=== PATIENT | female | born 1965 | race Caucasian/White ===

== ENCOUNTER 2023-02-10 08:22 | Outpatient (OUT) | payer OTHER, SELFPAY ==
--- NOTE | 2023-02-10 | PCN_ITS ---
Requesting Physician:? Procedure Date:? 02/10/2023 This was a Lexiscan stress test with myocardial perfusion images, performed at the [facility] on 02/10/2023. Informed consent was obtained.? The patient was attached to electrographic monitoring and an intravenous line was secured.? Resting vital signs and ECG were obtained.? Lexiscan 0.4 mg were infused slowly, followed by administration of Cardiolite.? The patient then went on to obtain myocardial perfusion images. Resting heart rate was 77 BPM and maximum heart rate was 113 BPM.? Resting blood pressure was 142/66 with maximum blood pressure being 158/88.? Resting ECG showed normal sinus rhythm with no ischemic changes.? ECG following Lexiscan showed evidence of normal sinus rhythm with occasional PVCs, but no ischemic ST changes.? SUMMARY OF FINDINGS:? 1.? No evidence of ischemic ECG changes following infusion of Lexiscan.? 2.? Resting hypertension. 3.? Myocardial perfusion images will be reported separately. HORTENCIAD
--- NOTE | 2023-02-10 08:30 | NM_ITS ---
Patient: KAYA SCHILLING Exam Date: 02/10/2023 : 1965 Gender:F Ordering : DR Silviano Box M.D. Admission #: [id number] Family : DR LOZALESLIE STEWARD Order #: [id number] CLICK HERE TO VIEW EXAM RADIOLOGY REPORT PROCEDURE: NM JOVAN PERF SPECT REST STR COMPARISON: None. INDICATIONS: Chest pain TECHNIQUE: Exam Description: Rest/Stress one day protocol gated SPECT Rest Imagin.1 mCi Tc-99m Cardiolite IV on 02/10/2023 Stress Imaging 30.0 mCi Tc-99m Cardiolite IV on 02/10/2023 Exercise Protocol: 0.4 mg Lexiscan given IV Heart Rate (bpm): Rest: 77 Max: 113 PMHR: 70 Blood Pressure: Rest: 142/88 Max: 158/88 Symptoms: Rest and peak stress ECG findings were pending and the exercise portion of the study was pending per attending physician Dr. SEGOVIA . For more details please see separate cardiac stress test report. FINDINGS: QUALITY OF STUDY: Excellent. PERFUSION DEFECT: None. LOCATION: N/A SIZE: N/A. SEVERITY: N/A. TYPE: N/A. WALL MOTION: Normal. LV SIZE: Normal. 69 mL. TID / TCD: None; 0.8 LVEF: Normal. Calculated EF 68%. SUMMARY: Myocardial perfusion imaging study is NORMAL. CONCLUSION: 1. Normal nuclear medicine myocardial perfusion scan. Dictated by: Roman Recio M.D. on 02/10/2023 at 13:02 Approved by: Roman Recio M.D. on 02/10/2023 at 13:09
--- NOTE | 2023-02-10 08:39 | CA_ITS ---
Patient: KAYA SCHILLING Exam Date: 02/10/2023 : 1965 Gender:F Ordering : DR DHRUV BOX M.D. Admission #: [id number] Family : KATHY STEWARD Order #: [id number] CLICK HERE TO VIEW EXAM ECHOCARDIOGRAM REPORT PROCEDURE: CA ECHO DOPPLER COMPLETE INDICATIONS: Chest pain, shortness of breath COMPARISON: None. DESCRIPTION: COMPLETE ECHOCARDIOGRAM Real-time transthoracic echocardiography with 2D, M-mode, spectral and color flow Doppler performed. QUALITY: Technical quality was good. LEFT VENTRICLE: Normal chamber size. Mild concentric left ventricular hypertrophy. LV EF: Global left ventricular systolic function is normal. Calculated left ventricular ejection fraction is 63% DIASTOLIC: Unable to assess diastolic function. ATRIAL SEPTUM: Inadequately seen. LEFT ATRIUM: Mild dilatation. RIGHT ATRIUM: Normal chamber size. RIGHT VENTRICLE: Normal chamber size. Normal right ventricular systolic function. TRICUSPID VALVE: Normal mobility and thickness. No stenosis with no regurgitation. Unable to assess right-sided pressures due to lack of measurable tricuspid regurgitation. MITRAL VALVE: Normal mobility and thickness. No evidence of mitral valve stenosis. There is no mitral annular calcification. Trivial mitral regurgitation. AORTIC VALVE: Normal trileaflet appearance. Mildly calcified aortic valve. Normal leaflet mobility. No evidence of aortic valve stenosis. No aortic regurgitation. AORTIC ROOT: Normal diameter and appearance. PULMONIC VALVE: Normal thickness and mobility. No stenosis. No regurgitation. PERICARDIUM: No evidence of pericardial effusion. IVC: Collapses with inspirations. Normal size. CONCLUSION: Global left ventricular systolic function is normal; visually estimated ejection fraction is 60 to 65%. Mildly increased left ventricular wall thickness. Unable to assess diastolic function. The left atrium is mildly dilated. The right ventricle is normal in size and systolic function. No significant valvular abnormalities. Adult Echocardiography Procedure Report Left Ventricle LVEDD (3.7 - 5.6 cm): 4.06 cm LVESD (2.2 - 4.0 cm): 2.88 cm LVIVS thickness (0.6 - 1.2 cm): 1.03 cm LVPW thickness (0.5 - 1.0 cm): 1.06 cm e': 0.10 m/s E - e': 7.73 LVOT Max Gradient: 2.58 mm[Hg], 2.49 mm[Hg] LVOT Area (cm2): 0.80 m/s Peak Velocity (LVOT): 0.80 m/s, 0.79 m/s Mean Velocity (LVOT): 0.54 m/s LVOT Diameter 1.95 cm Left Ventricular Ejection Fraction: 62.82 % Left Atrium LA Volume Index (2D A2C): 40.09 ml/m2 Left Atrium Systolic Dimension: 3.85 cm Mitral Valve MV E to A Ratio: 0.98 Mitral Valve A-Wave Peak Velocity: 0.77 m/s Mitral Valve E-Wave Peak Velocity: 0.75 m/s Right Ventricle RV Internal Diastolic Dimension: 2.56 cm Aorta AO Root Diam: 2.68 cm Ascending Ao Diam: 2.93 cm Aortic Valve AoV Area (Peak Romulo): 1.69 cm2, 1.70 cm2 AoV Area (VTI): 1.62 cm2, 1.63 cm2 Peak Velocity(Antegrade Flow): 1.40 m/s Peak Gradient(Antegrade Flow): 7.89 mm[Hg] Mean Velocity(Antegrade Flow): 1.01 m/s Mean Gradient(Antegrade Flow): 4.51 mm[Hg] Velocity Time Integral: 31.20 cm Tricuspid Valve Pulmonic Valve Mean Gradient: 3.18 mm[Hg], 3.74 mm[Hg], 2.88 mm[Hg], 3.24 mm[Hg] Mean Velocity: 0.83 m/s, 0.91 m/s, 0.80 m/s, 0.85 m/s Peak Velocity: 1.22 m/s Peak Gradient: 6.20 mm[Hg], 7.03 mm[Hg], 5.09 mm[Hg], 5.42 mm[Hg] Right Atrium Right Atrium Systolic Pressure: 28.49 ml, 28.49 ml Dictated by: Dhruv Box M.D. on 02/12/2023 at 08:47 Approved by: Dhruv Box M.D. on 02/12/2023 at 08:51
[2023-02-10] MEDS: REGADENOSON 0.4 MG/5 ML SYRINGE IV (10:56)
== END 2023-02-10 08:23 ==
LOC: NM 08:25
PROVIDERS: PCP Family Medicine; Visit Provider Internal Medicine Interventional Cardiology
DX: R07.9 Chest pain, unspecified (principal); R06.02 Shortness of breath
CPT/HCPCS: 78452; 93017; 93306; A9500; J2785

== ENCOUNTER 2023-03-05 13:23 | Emergency (ER) | payer OTHER, SELFPAY ==
[2023-03-05 14:00] VITALS: BP 120/68; PULSE 103; RESP 18; TEMP 37.2; O2SAT 100; BMI 24.1
--- NOTE | 2023-03-05 14:13 | XR_ITS ---
The [address] [address] Patient Name: KAYA SCHILLING MRN: [id number] date: 1965 Sex: F Assigned Patient Location: ER Current Patient Location: ER Accession/Order Number: [id number] Exam Date: 03/05/2023 15:15 Report Date: 03/05/2023 16:25 At the request of: TENA NGUYEN Procedure: XR chest 2V TWO-VIEW CHEST RADIOGRAPH, 03/05/2023 3:15 PM EDT: COMPARISON: Chest, 09/23/2022. CLINICAL HISTORY: Cough/shortness of breath and dizziness with nausea and weakness for 4 days. FINDINGS: No acute cardiopulmonary disease. No pulmonary edema, pneumothorax, or pleural effusion. Normal heart size. No acute osseous abnormality. IMPRESSION: No acute abnormality identified. Electronically authenticated by: Sergio SALEH Date: 03/05/2023 16:25
[2023-03-05 15:04] LABS: Basophils Percent Auto 0.5 % (0.2-2.0); Eosinophils Absolute Auto 0.2 10^3/uL (0.0-0.7); Eosinophils Percent Auto 2.7 % (0.9-7.0); Hematocrit 33.6 % (36.0-48.0); Hemoglobin 9.9 g/dL (12.0-16.0); Immature Granulocytes Abs Auto 0.01 10^3/uL (0.00-0.03); Immature Granulocytes Pct Auto 0.2 % (0.0-0.5); Lymphocytes Absolute Auto 1.3 10^3/uL (1.2-3.8); Lymphocytes Percent Auto 21.2 % (20.5-60.0); Mean Corpuscular HGB Conc 29.5 g/dL (29.9-35.2); Mean Corpuscular Hemoglobin 26.4 pg (26.7-34.0); Mean Corpuscular Volume 89.6 fL (81.0-99.0); Mean Platelet Volume 8.4 fL (9.5-13.5); Monocytes Absolute Auto 0.3 10^3/uL (0.3-0.8); Monocytes Percent Auto 5.3 % (1.7-12.0); Neutrophils Absolute Auto 4.1 10^3/uL (1.4-6.5); Neutrophils Percent Auto 70.1 % (43.0-75.0); Platelet Count 400 10^3/uL (150-450); Red Blood Count 3.75 10^6/uL (4.20-5.40); Red Cell Distribution Width 16.3 % (11.0-15.0); White Blood Count 5.9 10^3/uL (4.0-11.0)
[2023-03-05 15:16] LABS: Anion Gap 12.6; BUN Creatinine Ratio 16.5; Calcium 11.1 mg/dL (8.5-10.1); Carbon Dioxide 23.7 mmol/L (21.0-32.0); Chloride 103 mmol/L (98-107); Estimated GFR (African America >60 (>=60); Estimated GFR (Non-African Ame 51 (>=60); Glucose 135 mg/dL (74-106); Potassium 4.3 mmol/L (3.5-5.1); Sodium 135 mmol/L (136-145)
--- NOTE | 2023-03-05 15:50 | ED.NAVMDI1 ---
HPI - Nausea/Vomiting/Diarrhea General Chief complaint: Nausea/Vomiting/Diarrhea Stated complaint: FLU LIKE SYMPTOMS Time Seen by Provider: 03/05/23 14:04 Source: patient Mode of arrival: walk-in Limitations: no limitations History of Present Illness HPI Narrative: 58-year-old female presents because of nausea and vomiting. She did not have vomiting today but she's been ill for a week and she's been feeling rundown. She had a Covid and had to be hospitalized about three months ago. She's had a slight cough. No hemoptysis and the cough is nonproductive. Related Data Previous Rx's Medication Instructions Recorded promethazine 25 mg tablet 25 mg PO Q6H PRN nausea and 03/05/23 vomiting #20 tabs Allergies Allergy/AdvReac Type Severity Reaction Status Date / Time acetaminophen [From Percocet] AdvReac Severe Confusion Verified 02/10/23 10:53 butorphanol [From Stadol] AdvReac Severe Vomiting Verified 02/10/23 10:52 oxycodone [From Percocet] AdvReac Severe Confusion Verified 02/10/23 10:53 Review of Systems ROS Narrative A ten point review of systems is negative except as noted above. PFSH PFSH Social History Smoking status: Never smoker Exam Narrative Exam Narrative: Nurses note and vital signs reviewed and patient is not hypoxic. General: The patient appears well and in no apparent distress. Patient is resting comfortably on cart. Skin: Warm, dry, no pallor noted. There is no rash noted. Head: Normocephalic, atraumatic Eye: Normal conjunctiva, no drainage Ears, Nose, Mouth, and Throat: oral mucosa is moist. Nares patent. Cardiovascular: Regular Rate and Rhythm Respiratory: Patient is in no distress, no accessory muscle use, lungs are clear to auscultation, no wheezing, rales or rhonchi Back: non-tender GI: Normal bowel sounds, no tenderness to palpation, no masses appreciated. No rebound, guarding, or rigidity noted. Musculoskeletal: The patient has no evidence of calf tenderness, no pitting edema, symmetrical pulses noted bilaterally Neurological: A&O, normal speech Psychiatric: Cooperative Constitutional Vital Signs - 24 hr 03/05/23 14:00 Temperature 99 F Pulse Rate [Monitor] 103 H Respiratory Rate 18 Blood Pressure [Left Arm] 120/68 H Pulse Oximetry 100 Oxygen Delivery Method Room Air Course Vital Signs Vital signs: Vital Signs Temperature 99 F 03/05/23 14:00 Pulse Rate 103 H 03/05/23 14:00 Respiratory Rate 18 03/05/23 14:00 Blood Pressure 120/68 H 03/05/23 14:00 Pulse Oximetry 100 03/05/23 14:00 Oxygen Delivery Method Room Air 03/05/23 14:00 Temperature 99 F 03/05/23 14:00 Pulse Rate 103 H 03/05/23 14:00 Respiratory Rate 18 03/05/23 14:00 Blood Pressure 120/68 H 03/05/23 14:00 Pulse Oximetry 100 03/05/23 14:00 Oxygen Delivery Method Room Air 03/05/23 14:00 MDM - Nausea/Vomiting/Diarrhea MDM Narrative Medical decision making narrative: her workup is negative and she is feeling improved after being given IV Phenergan and fluids. She is able to be discharged home. Treatment diagnosis and follow-up were discussed with the patient. Differential Diagnosis Differential diagnosis: Likely food poisoning, gastroenteritis, drug-induced nausea and vomiting and dehydration Lab Data Attestation: I reviewed the patient's lab results. Labs: Lab Results 03/05/23 03/05/23 Range/Units 14:55 15:40 WBC 5.9 (4.0-11.0) 10^3/uL RBC 3.75 L (4.20-5.40) 10^6/uL Hgb 9.9 L (12.0-16.0) g/dL Hct 33.6 L (36.0-48.0) % MCV 89.6 (81.0-99.0) fL MCH 26.4 L (26.7-34.0) pg MCHC 29.5 L (29.9-35.2) g/dL RDW 16.3 H (11.0-15.0) % Plt Count 400 (150-450) 10^3/uL MPV 8.4 L (9.5-13.5) fL Neut % (Auto) 70.1 (43.0-75.0) % Lymph % (Auto) 21.2 (20.5-60.0) % [place] % (Auto) 5.3 (1.7-12.0) % Eos % (Auto) 2.7 (0.9-7.0) % Baso % (Auto) 0.5 (0.2-2.0) % Neut # (Auto) 4.1 (1.4-6.5) 10^3/uL Lymph # (Auto) 1.3 (1.2-3.8) 10^3/uL [place] # (Auto) 0.3 (0.3-0.8) 10^3/uL Eos # (Auto) 0.2 (0.0-0.7) 10^3/uL Baso # (Auto) 0.0 (0.0-0.1) 10^3/uL Abs Immat Gran (auto) 0.01 (0.00-0.03) 10^3/uL Imm/Tot Granulo (auto) 0.2 (0.0-0.5) % Sodium 135 L (136-145) mmol/L Potassium 4.3 (3.5-5.1) mmol/L Chloride 103 (98-107) mmol/L Carbon Dioxide 23.7 (21.0-32.0) mmol/L Anion Gap 12.6 BUN 18.0 (7.0-18.0) mg/dL Creatinine 1.09 H (0.55-1.02) mg/dL Est GFR ( Amer) >60 (>=60) Est GFR (Non-Af Amer) 51 L (>=60) BUN/Creatinine Ratio 16.5 Glucose 135 H (74-106) mg/dL Calcium 11.1 H (8.5-10.1) mg/dL SARS-CoV-2 (PCR) Negative (NEGATIVE) ECG Data Attestation: I personally reviewed and interpreted this ECG as follows: (color television console monitor shows normal sinus rhythm with a rate of 83) Discharge Plan Discharge Chief Complaint: Nausea/Vomiting/Diarrhea Clinical Impression: Gastroenteritis Patient Disposition: Home, Self-Care Time of Disposition Decision: 17:25 Condition: Good Mode of Transportation: Private Vehicle Prescriptions / Home Meds: New promethazine 25 mg tablet 25 mg PO Q6H PRN (Reason: nausea and vomiting) Qty: 20 0RF Instructions: Gastroenteritis (ED) Stand Alone Forms: Portal Instructions Referrals: KATHY STEWARD [Primary Care Provider] - 1 week
[2023-03-05 15:58] LABS: SARS-CoV-2 Ag NEGATIVE (NEGATIVE)
[2023-03-05] MEDS: PROMETHAZINE HCL 25 MG/ML VIAL 12.5 MG IV (16:20)
[2023-03-05] MEDS: 0.9 % SODIUM CHLORIDE 1,000 ML 1000 ML IV (16:20)
--- NOTE | 2023-03-05 17:08 | ECG_ITS ---
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
[2023-03-05 17:57] VITALS: BP 140/76; PULSE 83; RESP 16; O2SAT 98
[2023-03-06 15:37] LABS: SARS-CoV-2 NAA NOT DETECTED (NOT DETECTE)
== END 2023-03-05 18:10 | disposition home or self-care (01) ==
PROVIDERS: Physician Assistant; Emergency Provider Emergency Medicine; PCP Family Medicine
DX: K52.9 Noninfective gastroenteritis and colitis, unspecified (principal); Z86.16 Personal history of COVID-19; Z20.822 Contact with and (suspected) exposure to COVID-19
CPT/HCPCS: 36415; 71046; 80048; 85025; 87635; 87811; 93005; 99285

== ENCOUNTER 2023-03-06 19:14 | Emergency (ER) | payer OTHER, SELFPAY ==
[2023-03-06 19:19] VITALS: BP 177/94; PULSE 103; RESP 20; TEMP 36.6; O2SAT 100; BMI 23.3
[2023-03-06 19:26] VITALS: O2SAT 100
--- NOTE | 2023-03-06 19:27 | XR_ITS ---
The [address] [address] Patient Name: KAYA SCHILLING MRN: [id number] date: 1965 Sex: F Assigned Patient Location: ER Current Patient Location: ER Accession/Order Number: [id number] Exam Date: 03/06/2023 19:50 Report Date: 03/06/2023 20:13 At the request of: JACKIE VINCENT Procedure: XR foot LT min 3V EXAM: XR foot LT min 3V HISTORY: Foot pain after fall COMPARISON: None. TECHNIQUE: FINDINGS: No osseous lesion, fracture, dislocation or subluxation. Age-related changes of the first metatarsophalangeal joint. The remainder of the joint spaces are normal. No visualized effusion. No visualized soft tissue edema. IMPRESSION: Normal x-rays Electronically authenticated by: JUSTINA RAMÍREZ Date: 03/06/2023 20:13
--- NOTE | 2023-03-06 19:42 | ED.LOWEXI1 ---
HPI - Extremity Injury (Lower) General Chief Complaint: Extremity Injury, Lower Stated Complaint: LT foot injury Time Seen by Provider: 03/06/23 19:40 Source: patient Mode of arrival: Wheelchair Limitations: no limitations History of Present Illness HPI Narrative: [place] injuring her left foot. Complains of pain of the left great toe area of the foot. Describes throbbing pain. No numbness or weakness. Denies other injury MD complaint: Reports foot injury and fall Related Data Home Medications Medication Instructions Recorded Confirmed alprazolam 2 mg tablet 2 mg PO QID PRN anxiety 03/06/23 03/06/23 amlodipine 10 mg tablet 10 mg PO BEDTIME 03/06/23 03/06/23 atorvastatin 40 mg tablet mg 03/06/23 levomilnacipran 80 mg capsule,24 80 mg PO DAILY 03/06/23 03/06/23 hr,extended release (Fetzima) levothyroxine 100 mcg tablet 100 mcg PO DAILY 03/06/23 03/06/23 lithium carbonate 300 mg capsule 300 mg PO BID 03/06/23 03/06/23 loratadine 10 mg tablet 10 mg PO Q24H 03/06/23 03/06/23 losartan 100 mg tablet 100 mg PO DAILY 03/06/23 03/06/23 metformin 1,000 mg tablet 1,000 mg PO BID 03/06/23 03/06/23 Previous Rx's Medication Instructions Recorded promethazine 25 mg tablet 25 mg PO Q6H PRN nausea and 03/05/23 vomiting #20 tabs Allergies Allergy/AdvReac Type Severity Reaction Status Date / Time acetaminophen [From Percocet] AdvReac Severe Confusion Verified 03/06/23 19:19 butorphanol [From Stadol] AdvReac Severe Vomiting Verified 03/06/23 19:19 oxycodone [From Percocet] AdvReac Severe Confusion Verified 03/06/23 19:19 Review of Systems ROS Status of ROS 10 or more systems reviewed and unremarkable except as noted in history and below PFSH PFSH Social History Smoking status: Never smoker Exam Constitutional Vital Signs - 24 hr 03/06/23 19:19 03/06/23 19:26 Temperature 97.8 F Pulse Rate [Monitor] 103 H Respiratory Rate 20 Blood Pressure [Right Arm] 177/94 H Pulse Oximetry 100 100 Oxygen Delivery Method Room Air Room Air Common normals: no apparent distress, average body habitus, oriented x3, no limitations and healthy appearing HENMT Common normals: normocephalic and head/scalp atraumatic Eye Common normals: EOMs intact bilaterally and conjunctivae normal Respiratory Common normals: normal respiratory effort, no retractions and no use of accessory muscles Cardio Common normals: regular rate, regular rhythm, S1 normal heart sound and S2 normal heart sound GI Common normals: Normal to inspection, nondistended, normoactive bowel sounds present and soft to palpation Extremity Other: left foot 1st MT tenderness. mild swelling Neuro Common normals: oriented x3, CN's II-XII intact bilaterally, moves all extremities and no focal motor deficits Psych Appearance: grossly normal Course Vital Signs Vital signs: Vital Signs Temperature 97.8 F 03/06/23 19:19 Pulse Rate 103 H 03/06/23 19:19 Respiratory Rate 20 03/06/23 19:19 Blood Pressure 177/94 H 03/06/23 19:19 Pulse Oximetry 100 03/06/23 19:19 Oxygen Delivery Method Room Air 03/06/23 19:19 Temperature 97.8 F 03/06/23 19:19 Pulse Rate 103 H 03/06/23 19:19 Respiratory Rate 20 03/06/23 19:19 Blood Pressure 177/94 H 03/06/23 19:19 Pulse Oximetry 100 03/06/23 19:26 Oxygen Delivery Method Room Air 03/06/23 19:26 MDM - Extremity Injury (Lower) MDM Narrative Medical decision making narrative: patient injured left foot/great toe when she slipped down [place] . Has point tenderness left first MT joint. minor swelling. No discoloration. xray neg for fracture. Patient provided a post op shoe and discharged home with motrin for pain Discharge Plan Discharge Chief Complaint: Extremity Injury, Lower Clinical Impression: Other sprain of left foot, initial encounter Prescriptions / Home Meds: No Action promethazine 25 mg tablet 25 mg PO Q6H PRN (Reason: nausea and vomiting) Qty: 20 0RF alprazolam 2 mg tablet 2 mg PO QID PRN (Reason: anxiety) amlodipine 10 mg tablet 10 mg PO BEDTIME atorvastatin 40 mg tablet Fetzima 80 mg capsule,extended release 24 hr 80 mg PO DAILY levothyroxine 100 mcg tablet 100 mcg PO DAILY lithium carbonate 300 mg capsule 300 mg PO BID loratadine 10 mg tablet 10 mg PO Q24H losartan 100 mg tablet 100 mg PO DAILY metformin 1,000 mg tablet 1,000 mg PO BID Instructions: Foot Sprain (ED) Additional Instructions: follow up with your doctor next week for recheck Stand Alone Forms: Portal Instructions Referrals: KATHY STEWARD [Primary Care Provider] - 1 week
--- NOTE | 2023-03-06 20:41 | PC.NURSE ---
called [facility] pharmacy to have meds pushed over
[2023-03-06] MEDS: IBUPROFEN 400 MG TABLET 800 MG PO (20:52)
== END 2023-03-06 20:57 | disposition home or self-care (01) ==
PROVIDERS: Emergency Provider Internal Medicine; PCP Family Medicine
DX: S93.602A Unspecified sprain of left foot, initial encounter (principal); W01.0XXA Fall on same level from slipping, tripping and stumbling without subsequent striking against object, initial encounter; Z79.899 Other long term (current) drug therapy; Z79.890 Hormone replacement therapy; Z79.84 Long term (current) use of oral hypoglycemic drugs
CPT/HCPCS: 73630; 99283

== ENCOUNTER 2023-03-26 09:45 | Outpatient (OUT) | payer OTHER, SELFPAY ==
[2023-03-27 12:08] LABS: PTH, Intact 108 pg/mL (15-65)
== END 2023-03-26 09:46 | disposition home or self-care (01) ==
LOC: LAB 03-29 15:24
PROVIDERS: PCP Family Medicine; Visit Provider Family Medicine
DX: E83.52 Hypercalcemia (principal)
CPT/HCPCS: 36415; 83970

== ENCOUNTER 2023-04-20 21:59 | Emergency (ER) | payer OTHER, SELFPAY ==
[2023-04-20 22:07] VITALS: BP 198/104; PULSE 99; RESP 18; TEMP 36.7; O2SAT 99; BMI 23.3
--- NOTE | 2023-04-20 23:06 | ED_ITS ---
HPI - Dental/Oral General Chief complaint: Dental/Oral Stated complaint: DENTAL ISSUES Time Seen by Provider: 04/20/23 22:55 Source: patient Mode of arrival: walk-in Limitations: no limitations History of Present Illness HPI Narrative: dental extractions earlier today. States she has increased bleeding at the office and the dentist placed stitches at the site and had her observed in the office for 20 minutes. States site started bleeding again tonight. She has been placing pressure over the site biting down on tea bags as directed by her dentist. the bleeding has slowed down. She is complaining of throbbing pain. No fever or chills Related Data Home Medications Medication Instructions Recorded Confirmed alprazolam 2 mg tablet 2 mg PO QID PRN anxiety 03/06/23 03/06/23 amlodipine 10 mg tablet 10 mg PO BEDTIME 03/06/23 03/06/23 atorvastatin 40 mg tablet mg 03/06/23 levomilnacipran 80 mg capsule,24 80 mg PO DAILY 03/06/23 03/06/23 hr,extended release (Fetzima) levothyroxine 100 mcg tablet 100 mcg PO DAILY 03/06/23 03/06/23 lithium carbonate 300 mg capsule 300 mg PO BID 03/06/23 03/06/23 loratadine 10 mg tablet 10 mg PO Q24H 03/06/23 03/06/23 losartan 100 mg tablet 100 mg PO DAILY 03/06/23 03/06/23 metformin 1,000 mg tablet 1,000 mg PO BID 03/06/23 03/06/23 Previous Rx's Medication Instructions Recorded promethazine 25 mg tablet 25 mg PO Q6H PRN nausea and 03/05/23 vomiting #20 tabs Allergies Allergy/AdvReac Type Severity Reaction Status Date / Time acetaminophen [From Percocet] AdvReac Severe Confusion Verified 03/06/23 19:19 butorphanol [From Stadol] AdvReac Severe Vomiting Verified 03/06/23 19:19 oxycodone [From Percocet] AdvReac Severe Confusion Verified 03/06/23 19:19 Review of Systems ROS Status of ROS 10 or more systems reviewed and unremarkable except as noted in history and below PFSH PFSH Social History Smoking status: Never smoker Exam Constitutional Vital Signs, click to edit/add: Last Vital Signs Temp 98.1 F 04/20/23 22:07 Pulse 99 H 04/20/23 22:07 Resp 18 04/20/23 22:07 BP 182/89 H 04/21/23 00:45 Pulse Ox 99 04/20/23 22:07 O2 Del Method Room Air 04/20/23 22:07 Common normals: no apparent distress (mild discomfort appearance . ), average body habitus and oriented x3 HENMT Other: left lower molar extracted dental site. Stitches in place. mild blood oozing but no active bleeder Respiratory Common normals: normal respiratory effort, no retractions and no use of accessory muscles Cardio Common normals: regular rate, regular rhythm and S1 normal heart sound Extremity Common normals: normal to inspection and full ROM Neuro Common normals: CN's II-XII intact bilaterally, moves all extremities and no focal motor deficits Psych Appearance: grossly normal Course Vital Signs Vital signs: Vital Signs Temperature 98.1 F 04/20/23 22:07 Pulse Rate 99 H 04/20/23 22:07 Respiratory Rate 18 04/20/23 22:07 Blood Pressure 198/104 H 04/20/23 22:07 Pulse Oximetry 99 04/20/23 22:07 Oxygen Delivery Method Room Air 04/20/23 22:07 Temperature 98.1 F 04/20/23 22:07 Pulse Rate 99 H 04/20/23 22:07 Respiratory Rate 18 04/20/23 22:07 Blood Pressure 182/89 H 04/21/23 00:45 Pulse Oximetry 99 04/20/23 22:07 Oxygen Delivery Method Room Air 04/20/23 22:07 MDM - Dental/Oral MDM Narrative Medical decision making narrative: patient presents post dental extraction bleeding. Was able to control the bleeding herself. Her BP was elevated. does have a history of HTN. no associated symptoms related to her BP. Labs WNL. Given dose of catapres for her BP and discharged home. provided with pain medication to use tonight if needed for her dental pain and is to follow up with her dentist tomorrow Lab Data Labs: Lab Results 04/20/23 Range/Units 23:28 WBC 5.7 (4.0-11.0) 10^3/uL RBC 3.68 L (4.20-5.40) 10^6/uL Hgb 10.8 L (12.0-16.0) g/dL Hct 33.7 L (36.0-48.0) % MCV 91.6 (81.0-99.0) fL MCH 29.3 (26.7-34.0) pg MCHC 32.0 (29.9-35.2) g/dL RDW 19.6 H (11.0-15.0) % Plt Count 355 (150-450) 10^3/uL MPV 8.4 L (9.5-13.5) fL Neut % (Auto) 63.2 (43.0-75.0) % Lymph % (Auto) 26.0 (20.5-60.0) % [place] % (Auto) 6.6 (1.7-12.0) % Eos % (Auto) 3.5 (0.9-7.0) % Baso % (Auto) 0.5 (0.2-2.0) % Neut # (Auto) 3.6 (1.4-6.5) 10^3/uL Lymph # (Auto) 1.5 (1.2-3.8) 10^3/uL [place] # (Auto) 0.4 (0.3-0.8) 10^3/uL Eos # (Auto) 0.2 (0.0-0.7) 10^3/uL Baso # (Auto) 0.0 (0.0-0.1) 10^3/uL Abs Immat Gran (auto) 0.01 (0.00-0.03) 10^3/uL Imm/Tot Granulo (auto) 0.2 (0.0-0.5) % Sodium 140 (136-145) mmol/L Potassium 3.8 (3.5-5.1) mmol/L Chloride 104 (98-107) mmol/L Carbon Dioxide 26.0 (21.0-32.0) mmol/L Anion Gap 13.8 BUN 17.0 (7.0-18.0) mg/dL Creatinine 0.94 (0.55-1.02) mg/dL Est GFR ( Amer) >60 (>=60) Est GFR (Non-Af Amer) >60 (>=60) BUN/Creatinine Ratio 18.1 Glucose 155 H (74-106) mg/dL Calcium 11.0 H (8.5-10.1) mg/dL Discharge Plan Discharge Chief Complaint: Dental/Oral Clinical Impression: Pain, dental, Hypertension, Surgical wound hemorrhage after dental procedure Patient Disposition: Home, Self-Care Prescriptions / Home Meds: No Action promethazine 25 mg tablet 25 mg PO Q6H PRN (Reason: nausea and vomiting) Qty: 20 0RF alprazolam 2 mg tablet 2 mg PO QID PRN (Reason: anxiety) amlodipine 10 mg tablet 10 mg PO BEDTIME atorvastatin 40 mg tablet Fetzima 80 mg capsule,extended release 24 hr 80 mg PO DAILY levothyroxine 100 mcg tablet 100 mcg PO DAILY lithium carbonate 300 mg capsule 300 mg PO BID loratadine 10 mg tablet 10 mg PO Q24H losartan 100 mg tablet 100 mg PO DAILY metformin 1,000 mg tablet 1,000 mg PO BID Instructions: Toothache (ED), Hypertension in the Older Adult (ED) Additional Instructions: follow up with your dentist tomorrow Stand Alone Forms: Portal Instructions Referrals: KATHY STEWARD [Primary Care Provider] - 1 week Discharge Date/Time: 04/21/23 00:51
[2023-04-20 23:41] LABS: Basophils Percent Auto 0.5 % (0.2-2.0); Eosinophils Absolute Auto 0.2 10^3/uL (0.0-0.7); Eosinophils Percent Auto 3.5 % (0.9-7.0); Hematocrit 33.7 % (36.0-48.0); Hemoglobin 10.8 g/dL (12.0-16.0); Immature Granulocytes Abs Auto 0.01 10^3/uL (0.00-0.03); Immature Granulocytes Pct Auto 0.2 % (0.0-0.5); Lymphocytes Absolute Auto 1.5 10^3/uL (1.2-3.8); Mean Corpuscular Hemoglobin 29.3 pg (26.7-34.0); Mean Corpuscular Volume 91.6 fL (81.0-99.0); Mean Platelet Volume 8.4 fL (9.5-13.5); Monocytes Absolute Auto 0.4 10^3/uL (0.3-0.8); Monocytes Percent Auto 6.6 % (1.7-12.0); Neutrophils Absolute Auto 3.6 10^3/uL (1.4-6.5); Neutrophils Percent Auto 63.2 % (43.0-75.0); Platelet Count 355 10^3/uL (150-450); Red Blood Count 3.68 10^6/uL (4.20-5.40); Red Cell Distribution Width 19.6 % (11.0-15.0); White Blood Count 5.7 10^3/uL (4.0-11.0)
[2023-04-20 23:48] LABS: Anion Gap 13.8; BUN Creatinine Ratio 18.1; Chloride 104 mmol/L (98-107); Estimated GFR (African America >60 (>=60); Estimated GFR (Non-African Ame >60 (>=60); Glucose 155 mg/dL (74-106); Potassium 3.8 mmol/L (3.5-5.1); Sodium 140 mmol/L (136-145)
[2023-04-21 00:07] VITALS: BP 195/98
[2023-04-21] MEDS: CLONIDINE HCL 0.1 MG TABLET PO (00:12)
[2023-04-21] MEDS: HYDROCODONE/ACETAMINOPHEN 5-325 MG TABLET 4 TAB PO (00:43)
[2023-04-21 00:45] VITALS: BP 182/89
== END 2023-04-21 00:51 | disposition home or self-care (01) ==
PROVIDERS: Emergency Provider Internal Medicine; PCP Family Medicine
DX: K91.840 Postprocedural hemorrhage of a digestive system organ or structure following a digestive system procedure (principal); I10 Essential (primary) hypertension; K08.89 Other specified disorders of teeth and supporting structures; Z79.899 Other long term (current) drug therapy; Z79.890 Hormone replacement therapy
CPT/HCPCS: 36415; 80048; 85025; 99283

== ENCOUNTER 2023-04-28 11:05 | Emergency (ER) | payer OTHER, SELFPAY ==
[2023-04-28] VITALS (20 sets, daily range): BP systolic 126–221; BP diastolic 70–121; PULSE 85–111; RESP 15–24; TEMP 36.7; O2SAT 99; BMI 24.1
--- NOTE | 2023-04-28 11:36 | ED_ITS ---
HPI - Weakness General Chief complaint: Weakness Stated complaint: WEAK/DISORIENTED Time Seen by Provider: 04/28/23 11:10 Source: patient Mode of arrival: Wheelchair Limitations: no limitations History of Present Illness HPI Narrative: Patient persist emergency department complaining of weakness, vomiting and dizziness. She states she had a tooth extracted April 20. Since then she has felt terrible. She was the emergency department on the seen by Dr. Burnham. Today everything hurts, her arms and legs, head, face, etc. she has diffuse myalgias. She has Nasal congestion, sinusitis,A lateral ear pain worse on the right side. She states she has been very dizzy when every time she gets up she feels like everything spinning to the point where she cannot ambulate and she has to crawl to get around. She then becomes very nauseated and starts vomiting. She has not been able to keep anything down. She denies any fever, or chills. Denies any visual disturbance, or focal weakness. She denies any flank pain, hematuria, dysuria. She denies any abdominal pain. She denies any diarrhea. She states she has this frequently. She says she has been taking Sudafed at home. She had a covert test which was negative. Related Data Home Medications Medication Instructions Recorded Confirmed alprazolam 2 mg tablet 2 mg PO QID PRN anxiety 03/06/23 03/06/23 amlodipine 10 mg tablet 10 mg PO BEDTIME 03/06/23 03/06/23 atorvastatin 40 mg tablet mg 03/06/23 levomilnacipran 80 mg capsule,24 80 mg PO DAILY 03/06/23 03/06/23 hr,extended release (Fetzima) levothyroxine 100 mcg tablet 100 mcg PO DAILY 03/06/23 03/06/23 lithium carbonate 300 mg capsule 300 mg PO BID 03/06/23 03/06/23 loratadine 10 mg tablet 10 mg PO Q24H 03/06/23 03/06/23 losartan 100 mg tablet 100 mg PO DAILY 03/06/23 03/06/23 metformin 1,000 mg tablet 1,000 mg PO BID 03/06/23 03/06/23 Previous Rx's Medication Instructions Recorded promethazine 25 mg tablet 25 mg PO Q6H PRN nausea and 03/05/23 vomiting #20 tabs meclizine 25 mg tablet 25 mg PO TID PRN dizziness #20 tabs 04/28/23 promethazine 25 mg tablet 25 mg PO TID PRN nausea and 04/28/23 vomiting #14 tabs Allergies Allergy/AdvReac Type Severity Reaction Status Date / Time butorphanol [From Stadol] AdvReac Severe Vomiting Verified 03/06/23 19:19 oxycodone [From Percocet] AdvReac Severe Confusion Verified 03/06/23 19:19 Review of Systems ROS Status of ROS 10 or more systems reviewed and unremarkable except as noted in history and below [facility] Social History Smoking status: Never smoker Exam Narrative Exam Narrative: Nurses notes and vital signs reviewed and patient is not hypoxic. General: Nontoxic, vomiting, and in no apparent distress. Skin: Warm, dry, no pallor noted. No Rash Head: Normocephalic, atraumatic. Neck: Supple, non-tender. Eye: Pupils are equal, round and EOMI. No scleral icterus. Ears, Nose, Mouth, and Throat: TM clear, no posterior oropharynx erythema or nasal mucosal hypertrophy, uvula is mid-line Oral mucosa is dry Cardiovascular: Regular Rate and Rhythm without murmur, gallop or rub. Respiratory: No accessory muscle use or respiratory distress. Lungs are clear to auscultation, no wheezing, rales or rhonchi Chest Wall: no tenderness Back: No midline thoracic or lumbar vertebral tenderness. No CVA tenderness Musculoskeletal: normal ROM, no calf or popliteal tenderness, no lower extremity edema/swelling GI: Abdomen is soft, non-distended. Normal bowel sounds. No tenderness to palpation. No rebound, guarding, or rigidity noted. Neurological: A&O x4. No cranial nerve dysfunction observed. No truncal ataxia. Moves all extremities. Sensation intact. Psychiatric: Cooperative and interactive. Normal mood and affect. Constitutional Vital Signs, click to edit/add: Last Vital Signs Temp 98.1 F 04/28/23 11:10 Pulse 90 04/28/23 12:46 Resp 15 04/28/23 12:30 BP 126/92 H 04/28/23 14:30 Pulse Ox 99 04/28/23 11:25 O2 Del Method Room Air 04/28/23 11:10 Course Vital Signs Vital signs: Vital Signs Temperature 98.1 F 04/28/23 11:10 Pulse Rate 107 H 04/28/23 11:10 Respiratory Rate 24 04/28/23 11:10 Blood Pressure 171/119 H 04/28/23 11:10 Pulse Oximetry 99 04/28/23 11:10 Oxygen Delivery Method Room Air 04/28/23 11:10 Temperature 98.1 F 04/28/23 11:10 Pulse Rate 90 04/28/23 12:46 Respiratory Rate 15 04/28/23 12:30 Blood Pressure 126/92 H 04/28/23 14:30 Pulse Oximetry 99 04/28/23 11:25 Oxygen Delivery Method Room Air 04/28/23 11:10 MDM - Weakness MDM Narrative Medical decision making narrative: Lab studies were done. Patient had an IV established given 2 L normal saline. Patient had Zofran ordered which she refused because that never works for her. She states only Phenergan works. Patient's symptoms worse with the patient getting up from a seated position. Results were discussed with patient. Patient's symptoms completely improved and resolved after Toradol, and Phenergan IV. She states that she felt better. She'll be discharged home with Phenergan and Antivert. At this time the patient is without objective evidence of an acute process requiring hospitalization or inpatient management. The patient has remained hem odynamically stable. No additional indication for emergent studies at this time. I answered all questions. Discussed discharge instructions including standard anticipatory guidance and what should prompt a return to the emergency department, including if they get worse are not getting better or develops any new or concerning symptoms. I've given them specific time frame in which to follow-up, and who to follow-up with. The patient demonstrates understanding. Patient is nontoxic and stable for discharge with outpatient follow-up. This note was created with the assistance of a speech recognition program. Although the intention is to generate documents that actually reflects the content of the visit, no guarantees can be provided that every mistake has been identified and corrected by editing. Differential Diagnosis Differential diagnosis: Likely sepsis and dehydration Medical Records Attestation: I reviewed the patient's medical records. Lab Data Attestation: I reviewed the patient's lab results. Labs: Lab Results 04/28/23 04/28/23 04/28/23 Range/Units 11:20 12:21 15:22 WBC 5.5 (4.0-11.0) 10^3/uL RBC 3.97 L (4.20-5.40) 10^6/uL Hgb 11.6 L (12.0-16.0) g/dL Hct 36.7 (36.0-48.0) % MCV 92.4 (81.0-99.0) fL MCH 29.2 (26.7-34.0) pg MCHC 31.6 (29.9-35.2) g/dL RDW 18.0 H (11.0-15.0) % Plt Count 381 (150-450) 10^3/uL MPV 8.4 L (9.5-13.5) fL Neut % (Auto) 69.9 (43.0-75.0) % Lymph % (Auto) 19.4 L (20.5-60.0) % [place] % (Auto) 6.4 (1.7-12.0) % Eos % (Auto) 3.6 (0.9-7.0) % Baso % (Auto) 0.5 (0.2-2.0) % Neut # (Auto) 3.9 (1.4-6.5) 10^3/uL Lymph # (Auto) 1.1 L (1.2-3.8) 10^3/uL [place] # (Auto) 0.4 (0.3-0.8) 10^3/uL Eos # (Auto) 0.2 (0.0-0.7) 10^3/uL Baso # (Auto) 0.0 (0.0-0.1) 10^3/uL Abs Immat Gran (auto) 0.01 (0.00-0.03) 10^3/uL Imm/Tot Granulo (auto) 0.2 (0.0-0.5) % Sodium 139 (136-145) mmol/L Potassium 3.6 (3.5-5.1) mmol/L Chloride 104 (98-107) mmol/L Carbon Dioxide 23.2 (21.0-32.0) mmol/L Anion Gap 15.4 BUN 18.0 (7.0-18.0) mg/dL Creatinine 1.22 H (0.55-1.02) mg/dL Est GFR ( Amer) 55 L (>=60) Est GFR (Non-Af Amer) 45 L (>=60) BUN/Creatinine Ratio 14.8 Glucose 153 H (74-106) mg/dL Lactate 3.9 H* 2.4 H* (0.4-2.0) mmol/L Calcium 11.1 H (8.5-10.1) mg/dL Total Bilirubin 0.3 (0.2-1.0) mg/dL AST 11 L (15-37) U/L ALT 20 (14-59) U/L Alkaline Phosphatase 77 (46-116) U/L Total Protein 7.2 (6.4-8.2) g/dL Albumin 3.7 (3.4-5.0) g/dL Globulin 3.5 g/dL Albumin/Globulin Ratio 1.1 Lipase 56.0 L (73.0-393.0) U/L TSH 3.125 (0.358-3.740) uIU/mL Urine Color Lt. yellow (YELLOW) Urine Clarity Slightly cloudy A (CLEAR) Urine pH 6.0 (5.0-9.0) Ur Specific [place] <=1.005 A (1.005-1.025) Urine Protein Trace (NEG/TRACE) mg/dL Urine Glucose (UA) >=1000 A (NEGATIVE) mg/dL Urine Ketones Negative (NEGATIVE) mg/dL Urine Occult Blood Negative (NEGATIVE) Urine Nitrite Negative (NEGATIVE) Urine Bilirubin Negative (NEGATIVE) Urine Urobilinogen 0.2 (0.2-1.0) EU/dL Ur Leukocyte Esterase Negative (NEGATIVE) Acetone, Qual Negative (NEGATIVE) ECG Data Attestation: I personally reviewed and interpreted this ECG as follows: Interpretation: Sinus rhythm 91 bpm. Specific T wave flattening in aVF and V6. Discharge Plan Discharge Chief Complaint: Weakness Clinical Impression: Nausea & vomiting, Dehydration, Dizziness Patient Disposition: Home, Self-Care Time of Disposition Decision: 16:10 Condition: Good Mode of Transportation: Private Vehicle Prescriptions / Home Meds: New promethazine 25 mg tablet 25 mg PO TID PRN (Reason: nausea and vomiting) Qty: 14 0RF meclizine 25 mg tablet 25 mg PO TID PRN (Reason: dizziness) Qty: 20 0RF No Action promethazine 25 mg tablet 25 mg PO Q6H PRN (Reason: nausea and vomiting) Qty: 20 0RF alprazolam 2 mg tablet 2 mg PO QID PRN (Reason: anxiety) amlodipine 10 mg tablet 10 mg PO BEDTIME atorvastatin 40 mg tablet Fetzima 80 mg capsule,extended release 24 hr 80 mg PO DAILY levothyroxine 100 mcg tablet 100 mcg PO DAILY lithium carbonate 300 mg capsule 300 mg PO BID loratadine 10 mg tablet 10 mg PO Q24H losartan 100 mg tablet 100 mg PO DAILY metformin 1,000 mg tablet 1,000 mg PO BID Instructions: Dehydration (ED), Acute Nausea and Vomiting (ED), Dizziness (ED) Stand Alone Forms: Portal Instructions Referrals: KATHY STEWARD [Primary Care Provider] - 1 week Discharge Date/Time: 04/28/23 16:26
--- NOTE | 2023-04-28 11:51 | XR_ITS ---
The [address] [address] Patient Name: KAYA SCHILLING MRN: [id number] date: 1965 Sex: F Assigned Patient Location: ER Current Patient Location: ER Accession/Order Number: [id number] Exam Date: 04/28/2023 12:57 Report Date: 04/28/2023 13:24 At the request of: ATTILA KIM Procedure: XR acute abdomen series EXAMINATION: XR acute abdomen series HISTORY: n/v ; nausea and vomiting COMPARISON: No relevant comparison available. FINDINGS: LUNGS: No infiltrate, pneumothorax, or pleural effusion. MEDIASTINUM: No abnormal widening. BOWEL GAS PATTERN: No abnormal dilation or suspicious fluid levels. Moderate-large amount of stool throughout the colon. FREE AIR: None. CALCIFICATIONS: None significant. BONES: No fracture or visible bone lesion. OTHER: Fallopian tube clips noted. XR/XR acute abdomen series IMPRESSION: 1. No acute cardiopulmonary process. 2. No bowel obstruction. 3. Moderate-large stool burden. Electronically authenticated by: LINNETTE AVENDANO Date: 04/28/2023 13:24
[2023-04-28 11:54] LABS: Bilirubin Urine NEGATIVE (NEGATIVE); Blood Urine NEGATIVE (NEGATIVE); Color Urine LT. YELLOW (YELLOW); Glucose Urine UA >=1000 mg/dL (NEGATIVE); Ketones Urine NEGATIVE (NEGATIVE); Leukocyte Esterase Urine NEGATIVE (NEGATIVE); Nitrite Urine NEGATIVE (NEGATIVE); Protein Urine TRACE mg/dL (NEG/TRACE); Specific Gravity Urine <=1.005 (1.005-1.025); Urobilinogen Urine 0.2 EU/dL (0.2-1.0)
[2023-04-28 11:56] LABS: Clarity Urine SLIGHTLY CLOUDY (CLEAR)
[2023-04-28 11:57] LABS: Urine Microscopic Indicated NO
[2023-04-28] MEDS: 0.9 % SODIUM CHLORIDE 1,000 ML 1000 ML IV ×2 (12:31→13:44)
[2023-04-28] MEDS: KETOROLAC TROMETHAMINE 30 MG/ML VIAL IVP (12:32)
[2023-04-28 12:35] LABS: Basophils Percent Auto 0.5 % (0.2-2.0); Eosinophils Absolute Auto 0.2 10^3/uL (0.0-0.7); Eosinophils Percent Auto 3.6 % (0.9-7.0); Hematocrit 36.7 % (36.0-48.0); Hemoglobin 11.6 g/dL (12.0-16.0); Immature Granulocytes Abs Auto 0.01 10^3/uL (0.00-0.03); Immature Granulocytes Pct Auto 0.2 % (0.0-0.5); Lymphocytes Absolute Auto 1.1 10^3/uL (1.2-3.8); Lymphocytes Percent Auto 19.4 % (20.5-60.0); Mean Corpuscular HGB Conc 31.6 g/dL (29.9-35.2); Mean Corpuscular Hemoglobin 29.2 pg (26.7-34.0); Mean Corpuscular Volume 92.4 fL (81.0-99.0); Mean Platelet Volume 8.4 fL (9.5-13.5); Monocytes Absolute Auto 0.4 10^3/uL (0.3-0.8); Monocytes Percent Auto 6.4 % (1.7-12.0); Neutrophils Absolute Auto 3.9 10^3/uL (1.4-6.5); Neutrophils Percent Auto 69.9 % (43.0-75.0); Platelet Count 381 10^3/uL (150-450); Red Blood Count 3.97 10^6/uL (4.20-5.40); White Blood Count 5.5 10^3/uL (4.0-11.0)
[2023-04-28 12:57] LABS: Alanine Aminotransferase 20 U/L (14-59); Albumin Globulin Ratio 1.1; Albumin Level 3.7 g/dL (3.4-5.0); Alkaline Phosphatase 77 U/L (46-116); Anion Gap 15.4; BUN Creatinine Ratio 14.8; Bilirubin Total 0.3 mg/dL (0.2-1.0); Calcium 11.1 mg/dL (8.5-10.1); Carbon Dioxide 23.2 mmol/L (21.0-32.0); Chloride 104 mmol/L (98-107); Estimated GFR (African America 55 (>=60); Estimated GFR (Non-African Ame 45 (>=60); Globulin 3.5 g/dL; Glucose 153 mg/dL (74-106); Potassium 3.6 mmol/L (3.5-5.1); Sodium 139 mmol/L (136-145); Total Protein 7.2 g/dL (6.4-8.2)
[2023-04-28 13:15] LABS: Lactate/Lactic Acid 3.9 mmol/L (0.4-2.0)
[2023-04-28 13:23] LABS: Acetone NEGATIVE (NEGATIVE)
[2023-04-28 13:24] LABS: Thyroid Stimulating Hormone 3.125 uIU/mL (0.358-3.740)
[2023-04-28 13:27] LABS: Aspartate Amino Transferase 11 U/L (15-37)
[2023-04-28] MEDS: ENALAPRILAT DIHYDRATE 1.25 MG/ML VIAL 2.5 MG IV (14:17)
[2023-04-28] MEDS: PROMETHAZINE HCL 25 MG/ML VIAL IV (14:17)
[2023-04-28 16:07] LABS: Lactate/Lactic Acid 2.4 mmol/L (0.4-2.0)
--- NOTE | 2023-04-28 17:40 | ECG_ITS ---
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
== END 2023-04-28 16:26 | disposition home or self-care (01) ==
PROVIDERS: Emergency Provider Emergency Medicine; PCP Family Medicine
DX: E86.0 Dehydration (principal); R42 Dizziness and giddiness; R11.2 Nausea with vomiting, unspecified; Z79.899 Other long term (current) drug therapy; Z79.890 Hormone replacement therapy; Z79.84 Long term (current) use of oral hypoglycemic drugs
CPT/HCPCS: 36415; 74022; 80053; 81003; 82009; 83605; 83690; 84443; 85025; 93005; 96361; 96374; 96375; 99285

== ENCOUNTER 2023-04-30 09:27 | Outpatient (OUT) | payer OTHER, SELFPAY ==
--- NOTE | 2023-04-30 09:33 | US_ITS ---
The [address] [address] Patient Name: KAYA SCHILLING MRN: [id number] date: 1965 Sex: F Assigned Patient Location: US Current Patient Location: US Accession/Order Number: [id number] Exam Date: 04/30/2023 09:35 Report Date: 04/30/2023 10:10 At the request of: KATHY STEWARD Procedure: US right upper quadrant EXAM: US right upper quadrant HISTORY: . Nausea R11.0 . COMPARISON: None. TECHNIQUE: Grayscale and color imaging was performed FINDINGS: The pancreas appears normal. The liver is normal in size. No masses are noted. Color-flow is noted in the portal and hepatic veins. Common bile duct measures 4 mm. Echogenic foci are noted within the gallbladder with shadowing consistent with small gallstones. No gallbladder wall thickening was noted. Patient had no pain upon scanning over the gallbladder. No fluid was noted in the right upper quadrant. US/US right upper quadrant IMPRESSION: 1. Cholelithiasis. No gallbladder wall thickening. Patient had no pain upon scanning over the gallbladder. 2. The remainder the right upper quadrant was unremarkable. Electronically authenticated by: JUSTINA MCKEON Date: 04/30/2023 10:10
== END 2023-04-30 09:28 | disposition home or self-care (01) ==
LOC: US 09:27
PROVIDERS: PCP Family Medicine; Visit Provider Family Medicine
DX: R11.2 Nausea with vomiting, unspecified (principal); K80.20 Calculus of gallbladder without cholecystitis without obstruction
CPT/HCPCS: 76705

== ENCOUNTER 2023-05-10 13:40 | Emergency (ER) | payer OTHER, SELFPAY ==
[2023-05-10 13:43] VITALS: BP 182/94; PULSE 106; RESP 28; TEMP 36.8; O2SAT 100; BMI 23.3
--- NOTE | 2023-05-10 13:58 | CT_ITS ---
The [address] [address] Patient Name: KAYA SCHILLING MRN: [id number] date: 1965 Sex: F Assigned Patient Location: ED.MAIN Current Patient Location: Accession/Order Number: [id number] Exam Date: 05/10/2023 14:24 Report Date: 05/10/2023 14:40 At the request of: MARIA LUISA BROCK Procedure: CT head/brain wo con EXAM: CT head/brain wo con; [id number] REASON FOR EXAM: headache COMPARISON: None. TECHNIQUE: Axial CT images of the head obtained without contrast. Multiplanar reformats generated at the scanner. Dose reduction technique used: Automated exposure control and/or adjustment of the mA and/or kV according to patient size and/or use of iterative reconstruction technique. FINDINGS: Parenchyma: -Normal parenchymal pattern. -No midline shift or mass effect. Basilar cisterns are patent. -No acute intracranial hemorrhage. -No loss of cortical corcoran-white differentiation to indicate acute cortical infarct. Extra-axial spaces: No extra-axial fluid collection or hemorrhage. CSF attenuation dilatation of the sella with little visible pituitary parenchyma. Ventricles: Normal in size and symmetric. Paranasal sinuses: Visualized paranasal sinuses are clear. Mastoid air cells: Visualized mastoids are clear. Orbits: No acute abnormality. Osseous: No acute findings. Soft tissues: No acute abnormality. CT/CT head/brain wo con IMPRESSION: 1. No acute or remote infarct or hemorrhage. No focal mass lesion. 2. Findings suggestive of empty sella. Electronically authenticated by: MEREDITH AGUILAR Date: 05/10/2023 14:40
--- NOTE | 2023-05-10 14:02 | ED.GENADUL1 ---
HPI - General Adult General Chief complaint: Dizziness Stated complaint: DIZZINESS Time Seen by Provider: 05/10/23 13:45 Source: patient Mode of arrival: Wheelchair Limitations: no limitations History of Present Illness HPI narrative: patient is a 58-year-old female presents to the Emergency Room with concerns of nausea vomiting and headache. Patient states her headache started 4-5 days ago, she has been seen twice in the Emergency Room in the past few weeks, one for dental complaints with bleeding post extractions and a 2nd for dizziness. patient is a poor historian but notes that she has been getting sick after eating for the past several days, has a scheduled appointment with a general surgeon to discuss her gallbladder ultrasound ordered by her PCP. Patient had a visit to the Emergency Room for dizziness prescribed meclizine and patient notes that she has had a severe headache for the past 4-5 days with dizziness nausea and vomiting. Patient notes light sensitivity. She has a prescription for Phenergan at home but did not take any earlier today as she was not able to keep the pills down. Patient reports taking two tablets of Phenergan yesterday without good relief. Patient states she is concerned as she is also diabetic and on metformin. Onset (ago): day(s) (5 ) Location: Reports head Radiation: Denies non-radiation Severity: severe Quality: Reports burning and aching Pain Consistency: Reports constant Relieving factors: Reports none Exacerbating factors: Reports movement Associated symptoms: Reports headaches and nausea/vomiting Related Data Home Medications Medication Instructions Recorded Confirmed alprazolam 2 mg tablet 2 mg PO QID PRN anxiety 03/06/23 03/06/23 amlodipine 10 mg tablet 10 mg PO BEDTIME 03/06/23 03/06/23 atorvastatin 40 mg tablet mg 03/06/23 levomilnacipran 80 mg capsule,24 80 mg PO DAILY 03/06/23 03/06/23 hr,extended release (Fetzima) levothyroxine 100 mcg tablet 100 mcg PO DAILY 03/06/23 03/06/23 lithium carbonate 300 mg capsule 300 mg PO BID 03/06/23 03/06/23 loratadine 10 mg tablet 10 mg PO Q24H 03/06/23 03/06/23 losartan 100 mg tablet 100 mg PO DAILY 03/06/23 03/06/23 metformin 1,000 mg tablet 1,000 mg PO BID 03/06/23 03/06/23 Previous Rx's Medication Instructions Recorded promethazine 25 mg tablet 25 mg PO Q6H PRN nausea and 03/05/23 vomiting #20 tabs meclizine 25 mg tablet 25 mg PO TID PRN dizziness #20 tabs 04/28/23 promethazine 25 mg tablet 25 mg PO TID PRN nausea and 04/28/23 vomiting #14 tabs Allergies Allergy/AdvReac Type Severity Reaction Status Date / Time butorphanol [From Stadol] AdvReac Severe Vomiting Verified 03/06/23 19:19 oxycodone [From Percocet] AdvReac Severe Confusion Verified 03/06/23 19:19 Review of Systems ROS Constitutional Denies: fever or chills Eyes Reports: other (+ light senstivity); Denies: change in vision Ears, nose, mouth, and throat Denies: throat pain or neck pain Cardiovascular Denies: chest pain or palpitations Respiratory Denies: shortness of breath or cough Gastrointestinal Reports: nausea and vomiting; Denies: abdominal pain Musculoskeletal Denies: back pain or neck pain Integumentary/Breast Denies: rash or itching Neurological Reports: headache; Denies: numbness in extremities Psychiatric Reports: anxiety; Denies: mood swings Endocrine Denies: excessive urination Allergic/Immunologic Denies: hives PFSH PFSH Social History Smoking status: Never smoker Exam Narrative Exam Narrative: Vital signs and nurses notes reviewed. The patient is not hypoxic. General: The patient appears tearful, lying on cart with a towel over her face. Readily conversive at bedside. Sits up easily on her own. Skin: Warm, dry, no pallor noted. The patient has no evidence of rash, petechiae, or purpura noted. Head: Normocephalic, atraumatic, mild temporal arterial tenderness Neck: Supple, trachea mid-line, no tenderness, no lymphadenopathy. No meningeal signs. No nuchal rigidity. Eye: Pupils are equal, round and reactive to light, EOMI Ears, Nose, Mouth, and Throat: Oral mucosa is moist, TMs are clear bilaterally, no hemotympanum noted. Cardiovascular: Regular Rate and Rhythm Respiratory: Patient is in no distress, no accessory muscle use, lungs are clear to auscultation, no wheezing, rales or rhonchi Back: non-tender, no CVA tenderness Musculoskeletal: normal ROM, no tenderness, no swelling, normal strength 5/5. Normal pulses to radial 2+ bilaterally and 2+ at DP and PT bilaterally and symmetrically. GI: Normal bowel sounds, no tenderness to palpation, no masses appreciated. No rebound, guarding, or rigidity noted. Neurological: A&O x4, normal equal tie puller strength, no pronator drift. The patient is not ataxic. The patient has normal speech. The patient has normal coordination. . Normal motor and sensory observed. Psychiatric: Cooperative Constitutional Vital Signs, click to edit/add: Last Vital Signs Temp 98.2 F 05/10/23 13:43 Pulse 97 H 05/10/23 15:09 Resp 28 H 05/10/23 13:43 BP 164/78 H 05/10/23 15:09 Pulse Ox 100 05/10/23 13:43 O2 Del Method Room Air 05/10/23 13:43 Course Vital Signs Vital signs: Vital Signs Temperature 98.2 F 05/10/23 13:43 Pulse Rate 106 H 05/10/23 13:43 Respiratory Rate 28 H 05/10/23 13:43 Blood Pressure 182/94 H 05/10/23 13:43 Pulse Oximetry 100 05/10/23 13:43 Oxygen Delivery Method Room Air 05/10/23 13:43 Temperature 98.2 F 05/10/23 13:43 Pulse Rate 97 H 05/10/23 15:09 Respiratory Rate 28 H 05/10/23 13:43 Blood Pressure 164/78 H 05/10/23 15:09 Pulse Oximetry 100 05/10/23 13:43 Oxygen Delivery Method Room Air 05/10/23 13:43 Medical Decision Making [facility] Narrative Medical decision making narrative: patient presents with chief concern of ssevere headache, nausea and vomiting. Patient notes that the nausea and vomiting mostly comes after eating. She has been unable to keep down her Phenergan as prescribed and has an appointment with her general surgeon. Today's concern appears to have more headache and abdominal pain. Patient's dental extractions appear well-healing. Given patient's severity of her complain a CT of the head will be performed, IV fluid bolus, 25 mg IM Phenergan and Reglan and Benadryl IV. after CT was performed patient was given Toradol 30 mg IV. We discussed her hypercalcemia, present on several lab draws. Patient had a PTH drawn in March that was high, patient is on lithium treatments. Patient's symptoms improved after IV medications. We recommend prompt follow-up with her family doctor to discuss ongoing monitoring of her hypercalcemia and possible further investigation. Patient verbalized understanding. The patient is to followup with primary care physician in next 1-2 days or to return to the emergency department should any of the signs or symptoms worsen or new symptoms develop. Patient had questions answered. The patient agrees with the following Diagnosis and Treatment plan and the patient will be discharged home. Lab Data Lab results reviewed: Yes I reviewed the patient's lab results Labs: Lab Results 05/10/23 Range/Units 14:10 WBC 6.0 (4.0-11.0) 10^3/uL RBC 4.14 L (4.20-5.40) 10^6/uL Hgb 11.9 L (12.0-16.0) g/dL Hct 38.2 (36.0-48.0) % MCV 92.3 (81.0-99.0) fL MCH 28.7 (26.7-34.0) pg MCHC 31.2 (29.9-35.2) g/dL RDW 16.8 H (11.0-15.0) % Plt Count 422 (150-450) 10^3/uL MPV 8.3 L (9.5-13.5) fL Neut % (Auto) 72.8 (43.0-75.0) % Lymph % (Auto) 19.2 L (20.5-60.0) % Yancey % (Auto) 4.7 (1.7-12.0) % Eos % (Auto) 2.7 (0.9-7.0) % Baso % (Auto) 0.3 (0.2-2.0) % Neut # (Auto) 4.4 (1.4-6.5) 10^3/uL Lymph # (Auto) 1.2 (1.2-3.8) 10^3/uL Yancey # (Auto) 0.3 (0.3-0.8) 10^3/uL Eos # (Auto) 0.2 (0.0-0.7) 10^3/uL Baso # (Auto) 0.0 (0.0-0.1) 10^3/uL Abs Immat Gran (auto) 0.02 (0.00-0.03) 10^3/uL Imm/Tot Granulo (auto) 0.3 (0.0-0.5) % ESR 53 H (<=30) mm/hr Sodium 139 (136-145) mmol/L Potassium 4.1 (3.5-5.1) mmol/L Chloride 102 (98-107) mmol/L Carbon Dioxide 23.2 (21.0-32.0) mmol/L Anion Gap 17.9 BUN 13.0 (7.0-18.0) mg/dL Creatinine 1.09 H (0.55-1.02) mg/dL Est GFR ( Amer) >60 (>=60) Est GFR (Non-Af Amer) 51 L (>=60) BUN/Creatinine Ratio 11.9 Glucose 119 H (74-106) mg/dL Calcium 12.5 H (8.5-10.1) mg/dL Total Bilirubin 0.4 (0.2-1.0) mg/dL AST 17 (15-37) U/L ALT 27 (14-59) U/L Alkaline Phosphatase 95 (46-116) U/L Troponin I High Sens 11.4 (4.0-51.3) pg/mL Total Protein 8.3 H (6.4-8.2) g/dL Albumin 4.1 (3.4-5.0) g/dL Globulin 4.2 g/dL Albumin/Globulin Ratio 1.0 Lipase 78.0 (73.0-393.0) U/L Acetone, Qual Negative (NEGATIVE) Imaging Data CT scan - head: Radiologist's impression: Procedure: CT head/brain wo con EXAM: CT head/brain wo con; [id number] REASON FOR EXAM: headache COMPARISON: None. TECHNIQUE: Axial CT images of the head obtained without contrast. Multiplanar reformats generated at the scanner. Dose reduction technique used: Automated exposure control and/or adjustment of the mA and/or kV according to patient size and/or use of iterative reconstruction technique. FINDINGS: Parenchyma: -Normal parenchymal pattern. -No midline shift or mass effect. Basilar cisterns are patent. -No acute intracranial hemorrhage. -No loss of cortical corcoran-white differentiation to indicate acute cortical infarct. Extra-axial spaces: No extra-axial fluid collection or hemorrhage. CSF attenuation dilatation of the sella with little visible pituitary parenchyma. Ventricles: Normal in size and symmetric. Paranasal sinuses: Visualized paranasal sinuses are clear. Mastoid air cells: Visualized mastoids are clear. Orbits: No acute abnormality. Osseous: No acute findings. Soft tissues: No acute abnormality. IMPRESSION: 1. No acute or remote infarct or hemorrhage. No focal mass lesion. 2. Findings suggestive of empty sella. Electronically authenticated by: MEREDITH AGUILAR Date: 05/10/2023 14:40 Discharge Plan Discharge Chief Complaint: Dizziness Clinical Impression: Cephalalgia, Nausea & vomiting, Hypercalcemia Patient Disposition: Home, Self-Care Time of Disposition Decision: 15:26 Condition: Good Prescriptions / Home Meds: No Action promethazine 25 mg tablet 25 mg PO Q6H PRN (Reason: nausea and vomiting) Qty: 20 0RF alprazolam 2 mg tablet 2 mg PO QID PRN (Reason: anxiety) amlodipine 10 mg tablet 10 mg PO BEDTIME atorvastatin 40 mg tablet Fetzima 80 mg capsule,extended release 24 hr 80 mg PO DAILY levothyroxine 100 mcg tablet 100 mcg PO DAILY lithium carbonate 300 mg capsule 300 mg PO BID loratadine 10 mg tablet 10 mg PO Q24H losartan 100 mg tablet 100 mg PO DAILY metformin 1,000 mg tablet 1,000 mg PO BID promethazine 25 mg tablet 25 mg PO TID PRN (Reason: nausea and vomiting) Qty: 14 0RF meclizine 25 mg tablet 25 mg PO TID PRN (Reason: dizziness) Qty: 20 0RF Instructions: Acute Nausea and Vomiting (DC), Hypercalcemia (ED) Stand Alone Forms: Portal Instructions Referrals: KATHY STEWARD [Primary Care Provider] - As soon as possible
--- NOTE | 2023-05-10 14:04 | ECG_ITS ---
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
[2023-05-10 14:23] LABS: Basophils Percent Auto 0.3 % (0.2-2.0); Eosinophils Absolute Auto 0.2 10^3/uL (0.0-0.7); Eosinophils Percent Auto 2.7 % (0.9-7.0); Hematocrit 38.2 % (36.0-48.0); Hemoglobin 11.9 g/dL (12.0-16.0); Immature Granulocytes Abs Auto 0.02 10^3/uL (0.00-0.03); Immature Granulocytes Pct Auto 0.3 % (0.0-0.5); Lymphocytes Absolute Auto 1.2 10^3/uL (1.2-3.8); Lymphocytes Percent Auto 19.2 % (20.5-60.0); Mean Corpuscular HGB Conc 31.2 g/dL (29.9-35.2); Mean Corpuscular Hemoglobin 28.7 pg (26.7-34.0); Mean Corpuscular Volume 92.3 fL (81.0-99.0); Mean Platelet Volume 8.3 fL (9.5-13.5); Monocytes Absolute Auto 0.3 10^3/uL (0.3-0.8); Monocytes Percent Auto 4.7 % (1.7-12.0); Neutrophils Absolute Auto 4.4 10^3/uL (1.4-6.5); Neutrophils Percent Auto 72.8 % (43.0-75.0); Platelet Count 422 10^3/uL (150-450); Red Blood Count 4.14 10^6/uL (4.20-5.40); Red Cell Distribution Width 16.8 % (11.0-15.0)
[2023-05-10] MEDS: DIPHENHYDRAMINE HCL 50 MG/ML (1ML) VIAL 25 MG IV (14:27)
[2023-05-10 14:28] LABS: Erythrocyte Sedimentation Rate 53 mm/hr (<=30)
[2023-05-10] MEDS: 0.9 % SODIUM CHLORIDE 1,000 ML 999 ML IV (14:28)
[2023-05-10] MEDS: DIAZEPAM 5 MG/ML - 2 ML INJ SYRINGE 2.5 MG IV (14:29)
[2023-05-10 14:36] LABS: Acetone NEGATIVE (NEGATIVE)
[2023-05-10 14:39] LABS: Troponin I High Sensitivity 11.4 pg/mL (4.0-51.3)
[2023-05-10 14:44] LABS: Alanine Aminotransferase 27 U/L (14-59); Albumin Level 4.1 g/dL (3.4-5.0); Alkaline Phosphatase 95 U/L (46-116); Anion Gap 17.9; Aspartate Amino Transferase 17 U/L (15-37); BUN Creatinine Ratio 11.9; Bilirubin Total 0.4 mg/dL (0.2-1.0); Calcium 12.5 mg/dL (8.5-10.1); Carbon Dioxide 23.2 mmol/L (21.0-32.0); Chloride 102 mmol/L (98-107); Estimated GFR (African America >60 (>=60); Estimated GFR (Non-African Ame 51 (>=60); Globulin 4.2 g/dL; Glucose 119 mg/dL (74-106); Potassium 4.1 mmol/L (3.5-5.1); Sodium 139 mmol/L (136-145); Total Protein 8.3 g/dL (6.4-8.2)
[2023-05-10] MEDS: KETOROLAC TROMETHAMINE 30 MG/ML VIAL IVP (15:00)
[2023-05-10 15:09] VITALS: BP 164/78; PULSE 97
[2023-05-12 08:13] LABS: Calcium, Ionized, Serum 6.5 mg/dL (4.5-5.6)
[2023-05-12 14:09] LABS: PTH, Intact 97 pg/mL (15-65)
== END 2023-05-10 16:33 | disposition home or self-care (01) ==
PROVIDERS: Personal Emergency Response Attendant; Emergency Provider Emergency Medicine Emergency Medical Services; PCP Family Medicine
DX: R51.9 Headache, unspecified (principal); R11.2 Nausea with vomiting, unspecified; E83.52 Hypercalcemia; Z79.899 Other long term (current) drug therapy; Z79.890 Hormone replacement therapy; Z79.84 Long term (current) use of oral hypoglycemic drugs
CPT/HCPCS: 36415; 70450; 80048; 80053; 82009; 82330; 83690; 83970; 84484; 85025; 85652; 93005; 96361; 96374; 96375; 99285

== ENCOUNTER 2023-05-15 16:00 | Outpatient (REF) | payer OTHER, SELFPAY | END 2023-05-15 16:01 | disposition home or self-care (01) | LOC: LAB 16:00 | PROVIDERS: PCP Family Medicine; Visit Provider Family Medicine | DX: E83.52 Hypercalcemia (principal); E21.3 Hyperparathyroidism, unspecified | CPT/HCPCS: 36415; 82340; 82570; 84560 ==

== ENCOUNTER 2023-05-18 12:56 | Outpatient (OUT) | payer OTHER, SELFPAY | END 2023-05-18 12:57 | disposition home or self-care (01) | LOC: PST 12:57 | PROVIDERS: PCP Family Medicine; Visit Provider Surgery | DX: Z01.818 Encounter for other preprocedural examination (principal); K80.20 Calculus of gallbladder without cholecystitis without obstruction ==

== ENCOUNTER 2023-05-25 07:26 | Day surgery (SDC) | payer OTHER, SELFPAY ==
[2023-05-18 13:54] VITALS: BP 175/94; PULSE 102; RESP 20; TEMP 36.6; O2SAT 100; BMI 23.7
[2023-05-25] VITALS (12 sets, daily range): BP systolic 134–184; BP diastolic 67–91; PULSE 72–103; RESP 13–20; TEMP 35.9–36.2; O2SAT 92–144; BMI 24.1
[2023-05-25] MEDS: LACTATED RINGER'S SOLUTION 1,000 ML 50 ML IV (07:58)
[2023-05-25 08:07] LABS: Glucometer 132 mg/dL (74-106)
[2023-05-25] MEDS: CEFAZOLIN SODIUM/DEXTROSE,ISO 2 GM/50 ML PIGGYBACK IV (08:56)
[2023-05-25] MEDS: BUPIVACAINE HCL 0.5% PF 50 MG/10 ML VIAL 20 ML INJ (09:47)
[2023-05-25] MEDS: INDOCYANINE GREEN 25 MG VIAL INJ (09:52)
--- NOTE | 2023-05-25 10:38 | PM.GSPRC ---
Date of procedure: 05/25/23 Indications for Procedure: This patient is a 58-year-old female who was recently seen for episodes of right upper quadrant pain. Gallbladder ultrasound revealed cholelithiasis. Robotic cholecystectomy was recommended. The risks benefits options and potential complications of the procedure were discussed in detail with the patient and they agreed to proceed and consent was signed. Pre-op diagnosis: symptomatic cholelithiasis Post-op diagnosis: same as pre-op Procedure: robotic cholecystectomy with ICG cholangiogram Anesthesia: GETA Surgeon: Jose Ramos Procedure Summary: The patient was brought to the operating room placed in the supine position. Gen. anesthesia was induced and the patient was intubated. The abdomen was prepped and draped in usual sterile fashion. She had been given preoperative IV antibiotics and was also given preoperative ICG. A site in the left upper quadrant was infiltrated with half percent Marcaine with epinephrine. A small incision was made. A 12 mm port was placed through this incision and advanced into the peritoneal cavity under laparoscopic guidance. The abdomen was then insufflated to 15 mmHg of carbon dioxide. The camera was reintroduced and safe port site entry was confirmed. Three 8 mm robotic ports were then placed, one at the umbilicus and two in the right lateral abdomen following local anesthesia under direct visualization. The camera was removed and an additional 8 mm port was placed through the 12 mm port. the patient was then placed in reverse Trendelenburg position and banked to the left. At this time the da Eugenie XI was brought to the field and camera was introduced and all ports direct and instruments introduced in standard fashion.at this time I left the operating table and attended the surgeon consult. The fundus of the gallbladder is grasped and retracted cephalad. The region of Mckeon's pouch was grasped and retracted laterally. Dissection was carried out in the region of the triangle of Calot. The cystic duct was readily identified. This was confirmed with a precision grinder external. This was then divided between clips. Posterior to this the cystic artery was identified. This was divided after clip placement. The gallbladder was then taken off the liver using electrocautery. Excellent hemostasis and secured clip placement was noted. The gallbladder was then placed in a retrieval bag. This was brought out through the 12 mm port site intact. Instruments, camera and ports were subsequently removed and the abdomen was desufflated. Skin incisions were closed with subcuticular sutures of 4-0 Vicryl. Sterile dressings were applied. The patient tolerated the procedure well and was transferred to the recovery area in stable condition. Estimated blood loss (mL): 2 Specimens: gallbladder Complications: No
== END 2023-05-25 12:14 | disposition home or self-care (01) ==
PROVIDERS: PCP Family Medicine; Visit Provider Surgery
PROC: (CPT 790; principal; 2023-05-25 08:20)
DX: K80.10 Calculus of gallbladder with chronic cholecystitis without obstruction (principal); E11.9 Type 2 diabetes mellitus without complications; J44.9 Chronic obstructive pulmonary disease, unspecified; Z79.899 Other long term (current) drug therapy; Z79.84 Long term (current) use of oral hypoglycemic drugs; I10 Essential (primary) hypertension; E11.42 Type 2 diabetes mellitus with diabetic polyneuropathy; E07.9 Disorder of thyroid, unspecified; E03.9 Hypothyroidism, unspecified; E78.00 Pure hypercholesterolemia, unspecified; M19.90 Unspecified osteoarthritis, unspecified site
CPT/HCPCS: 47563; 36415; 36416; 82948; 88304; J2704

== ENCOUNTER 2023-07-01 10:35 | Outpatient (OUT) | payer OTHER, SELFPAY ==
[2023-07-01 11:42] LABS: Estimated GFR (African America >60 (>=60); Estimated GFR (Non-African Ame >60 (>=60); Thyroid Stimulating Hormone 7.149 uIU/mL (0.358-3.740)
[2023-07-02 13:13] LABS: Lithium (Eskalith(R)), Serum 0.8 mmol/L (0.5-1.2)
== END 2023-07-01 10:36 | disposition home or self-care (01) ==
LOC: LAB 10:36
PROVIDERS: PCP Family Medicine; Visit Provider Psychiatry & Neurology Psychiatry
DX: F31.9 Bipolar disorder, unspecified (principal)
CPT/HCPCS: 36415; 80178; 82565; 84443

== ENCOUNTER 2023-09-01 13:17 | Outpatient (OUT) | payer OTHER, SELFPAY ==
--- NOTE | 2023-09-01 13:48 | MM_ITS ---
Patient Name: KAYA SCHILLING MR#: [id number] : 1965 Exam Date: 09/01/2023 Ordering Doctor: DR KATHY STEWARD RADIOLOGY REPORT PROCEDURE: MM TOMOSYNTHESIS SCREENING BI COMPARISON: MG MAMM SCREEN 3D BUDDY CAD, 04/18/2021. MG MAMM BUDDY SCRN W CAD DIG, 10/15/1993. INDICATIONS: screening Calculator Name NCI Breast Cancer Risk Assessment Tool 5 Year Breast Cancer Risk 1.40% Lifetime Breast Cancer Risk 7.60% Personal Breast Cancer No Personal Ovarian Cancer No Treatments None Family Cancers Grandfather-maternal with lung cancer at age ~60; Grandmother-paternal with prostate cancer at age ~60; Father with prostate cancer at age 74. LOCATION: [facility] BREAST COMPOSITION: Scattered areas fibroglandular density. FINDINGS: DIAGNOSTIC CATEGORY 2--BENIGN FINDING: RIGHT BREAST: No significant suspicious finding. No significant change has occurred. LEFT BREAST: No significant suspicious finding. Scattered benign-appearing calcifications are present. No significant change has occurred. RECOMMENDATIONS: ROUTINE MAMMOGRAM AND CLINICAL EVALUATION IN 12 MONTHS. PLEASE NOTE: A NORMAL MAMMOGRAM DOES NOT EXCLUDE THE POSSIBILITY OF BREAST CANCER. A CLINICALLY SUSPICIOUS PALPABLE LUMP SHOULD BE BIOPSIED. Dictated by: Roman Recio M.D. on 09/02/2023 at 08:56 Approved by: Roman Recio M.D. on 09/02/2023 at 08:59
== END 2023-09-01 13:18 | disposition home or self-care (01) ==
LOC: MAMMO 13:17
PROVIDERS: PCP Family Medicine; Visit Provider Family Medicine
DX: Z12.31 Encounter for screening mammogram for malignant neoplasm of breast (principal); Z80.1 Family history of malignant neoplasm of trachea, bronchus and lung; Z80.42 Family history of malignant neoplasm of prostate
CPT/HCPCS: 77063; 77067

== ENCOUNTER 2023-11-19 15:31 | Emergency (ER) | payer OTHER, SELFPAY ==
[2023-11-19 15:36] VITALS: BP 159/104; PULSE 110; RESP 20; TEMP 36.4; O2SAT 98; BMI 20.6
[2023-11-19 15:45] VITALS: BP 159/96
--- NOTE | 2023-11-19 16:01 | ECG_ITS ---
[facility] Test Date: 2023-11-19 Pat Name: KAYA SCHILLING Department: Room: - Gender: Female Before School: : 1965 Requested By: KATHY STEWARD Order Number: [id number] Reading MD: MARITZA SUBRAMANIAN Measurements Intervals [place] Rate: 96 P: 73 MA: 188 QRS: 82 QRSD: 84 T: -30 QT: 330 QTc: 384 Interpretive Statements 1100 Sinus rhythm 4068 Nonspecific Twave abnormality 9130 borderline ECG Compared to ECG 05/10/2023 14:15:35 No significant changes Electronically Signed On 11-20-2023 7:31:54 EDT by MARITZA SUBRAMANIAN
[2023-11-19] MEDS: 0.9 % SODIUM CHLORIDE 1,000 ML 999 ML IV (16:08)
[2023-11-19] MEDS: PROMETHAZINE HCL 25 MG/ML VIAL 12.5 MG IV ×2 (16:09→18:33)
[2023-11-19 16:15] VITALS: PULSE 94; RESP 25
[2023-11-19 16:15] LABS: Bilirubin Urine NEGATIVE (NEGATIVE); Blood Urine NEGATIVE (NEGATIVE); Clarity Urine CLEAR (CLEAR); Color Urine YELLOW (YELLOW); Glucose Urine UA NEGATIVE (NEGATIVE); Ketones Urine TRACE mg/dL (NEGATIVE); Leukocyte Esterase Urine TRACE (NEGATIVE); Nitrite Urine NEGATIVE (NEGATIVE); Protein Urine 100 mg/dL (NEG/TRACE); Urobilinogen Urine 0.2 EU/dL (0.2-1.0); pH Urine 6.5 (5.0-9.0)
[2023-11-19 16:15] LABS: Basophils Percent Auto 0.4 % (0.2-2.0); Eosinophils Absolute Auto 0.3 10^3/uL (0.0-0.7); Eosinophils Percent Auto 3.2 % (0.9-7.0); Hematocrit 38.8 % (36.0-48.0); Hemoglobin 12.4 g/dL (12.0-16.0); Immature Granulocytes Abs Auto 0.03 10^3/uL (0.00-0.03); Immature Granulocytes Pct Auto 0.3 % (0.0-0.5); Lymphocytes Absolute Auto 1.7 10^3/uL (1.2-3.8); Lymphocytes Percent Auto 18.4 % (20.5-60.0); Mean Corpuscular Volume 100.3 fL (81.0-99.0); Mean Platelet Volume 8.6 fL (9.5-13.5); Monocytes Absolute Auto 0.5 10^3/uL (0.3-0.8); Monocytes Percent Auto 4.9 % (1.7-12.0); Neutrophils Absolute Auto 6.6 10^3/uL (1.4-6.5); Neutrophils Percent Auto 72.8 % (43.0-75.0); Platelet Count 495 10^3/uL (150-450); Red Blood Count 3.87 10^6/uL (4.20-5.40); Red Cell Distribution Width 16.1 % (11.0-15.0); White Blood Count 9.1 10^3/uL (4.0-11.0)
--- NOTE | 2023-11-19 16:21 | ED.GENADUL1 ---
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 Albumin/Globulin Ratio Lipase (16.0-77.0) U/L Urine Color (YELLOW) Urine Clarity (CLEAR) Urine pH (5.0-9.0) Ur Specific [place] (1.005-1.025) Urine Protein (NEG/TRACE) mg/dL Urine Glucose (UA) (NEGATIVE) mg/dL Urine Ketones (NEGATIVE) mg/dL Urine Occult Blood (NEGATIVE) Urine Nitrite (NEGATIVE) Urine Bilirubin (NEGATIVE) Urine Urobilinogen (0.2-1.0) EU/dL Ur Leukocyte Esterase (NEGATIVE) Urine RBC (0-2) #/HPF Urine WBC (NONE SEEN) #/HPF Ur Squamous Epith Cells (NONE/RARE) #/LPF Urine Crystals (None Seen) #/HPF Urine Bacteria (NONE SEEN) #/HPF Urine Casts (NONE SEEN) #/LPF Urine Mucus (NONE SEEN) Monoscreen (NEGATIVE) Influenza Type A Ag Influenza Type B Ag Streptococcus Screen Imaging Data CT scan - abdomen: Radiologist's impression: ITS Impressions Abdomen/Pelvis CT 11/19/23 16:34 IMPRESSION: Mild wall thickening of the colon is seen, suggestive of mild colitis Multiple enlarged retroperitoneal lymph nodes are seen, with a nearly confluent appearance, and measuring up to 3 cm in transverse diameter. Multiple enlarged lymph nodes are also seen about the hepatitis and gastrohepatic ligament measuring up to 2.5 cm in short axis. Multiple enlarged lymph nodes are also seen about the celiac axis, with the largest measuring 2 cm in short axis, and which demonstrates internal low density, which may represent a necrotic lymph node. Small free pelvic fluid. Electronically authenticated by: GEMMA ORTEGA Date: 11/19/2023 18:12 Discharge Plan Discharge Stand Alone Forms: Portal Instructions Chief Complaint: Nausea/Vomiting/Diarrhea Clinical Impression: Colitis, Nausea & vomiting, Dehydration Patient Disposition: Home, Self-Care Time of Disposition Decision: 18:35 Condition: Good Prescriptions / Home Meds: New ciprofloxacin HCl [Cipro] 500 mg tablet 500 mg PO Q12H Qty: 20 0RF metronidazole 500 mg tablet 500 mg PO BID 10 Days Qty: 20 0RF promethazine 25 mg tablet 25 mg PO QID PRN (Reason: nausea and vomiting) Qty: 10 0RF No Action alprazolam 2 mg tablet 2 mg PO QID PRN (Reason: anxiety) Fetzima 80 mg capsule,extended release 24 hr 80 mg PO DAILY levothyroxine 100 mcg tablet 100 mcg PO DAILY lithium carbonate 300 mg capsule 300 mg PO BID metformin 1,000 mg tablet 1,000 mg PO BID buspirone 15 mg tablet 15 mg PO QDAY zolpidem 5 mg tablet 5 mg PO QPM Linzess 290 mcg capsule 290 mcg PO DAILY Caplyta 21 mg capsule 21 mg PO DAILY Instructions: Dehydration (ED), Acute Nausea and Vomiting (ED), Acute Diarrhea (ED), Colitis (ED) Referrals: KATHY STEWARD [Primary Care Provider] - 1 week Discharge Date/Time: 11/19/23 18:55
[2023-11-19 16:25] LABS: Bacteria Urine TRACE #/HPF (NONE SEEN); Cast Seen? NONE SEEN #/LPF (NONE SEEN); Crystals Seen? None Seen #/HPF (None Seen); Mucus Urine TRACE (NONE SEEN); RBC Urine 0-2 #/HPF (0-2); Squamous Epithelial Cell Urine FEW #/LPF (NONE/RARE)
[2023-11-19 16:30] VITALS: PULSE 90; RESP 19
[2023-11-19 16:30] LABS: Alanine Aminotransferase 19 U/L (14-59); Albumin Globulin Ratio 0.9; Albumin Level 3.8 g/dL (3.4-5.0); Alkaline Phosphatase 151 U/L (46-116); Anion Gap 14.8; Aspartate Amino Transferase 15 U/L (15-37); BUN Creatinine Ratio 9.4; Bilirubin Total 0.4 mg/dL (0.2-1.0); Calcium 11.8 mg/dL (8.5-10.1); Chloride 96 mmol/L (98-107); Estimated GFR (African America 57 (>=60); Estimated GFR (Non-African Ame 47 (>=60); Globulin 4.3 g/dL; Glucose 173 mg/dL (74-106); Potassium 3.8 mmol/L (3.5-5.1); Sodium 131 mmol/L (136-145); Total Protein 8.1 g/dL (6.4-8.2); Troponin I High Sensitivity 16.2 pg/mL (4.0-51.3)
[2023-11-19 16:32] LABS: Internal Control Within Normal Limits; Strep A Antigen Screen Negative
[2023-11-19 16:32] LABS: Influenza Virus A Antigen Negative; Influenza Virus B Antigen Negative; Internal Control Within Normal Limits
[2023-11-19 16:33] LABS: Lactate/Lactic Acid 4.2 mmol/L (0.4-2.0)
--- NOTE | 2023-11-19 16:34 | CT_ITS ---
The [address] [address] Patient Name: KAYA SCHILLING MRN: [id number] date: 1965 Sex: F Assigned Patient Location: ER Current Patient Location: ER Accession/Order Number: [id number] Exam Date: 11/19/2023 16:45 Report Date: 11/19/2023 18:12 At the request of: JAROCHO ARROYO Procedure: CT abdomen pelvis w con EXAM: CT abdomen pelvis w con HISTORY: diarrhea COMPARISON: None. TECHNIQUE: Multiple axial images of the abdomen and pelvis were obtained following administration of IV contrast material. Coronal and sagittal reformatted sequences are submitted for review. FINDINGS: The lung bases are clear. Heart size is normal. The liver, spleen, pancreas and bilateral adrenal glands appear unremarkable. Tiny gallstone is seen. No significant collateral thickening is seen. No significant intrahepatic or extrahepatic biliary dilatation is seen. Lobulated appearance of the bilateral kidneys is seen. Bilateral kidneys demonstrate normal contrast enhancement. There is no evidence for hydronephrosis bilaterally. The urinary bladder appears unremarkable. Nonobstructive bowel pattern is seen. The appendix is not definitely identified. No abnormal pericecal inflammatory changes are seen. Mild wall thickening of the colon is seen, suggestive of mild colitis. Large volume of stool is seen in the distal sigmoid colon. Small free pelvic fluid is seen. No abnormal fluid collection is seen in the abdomen and pelvis. Multiple enlarged retroperitoneal lymph nodes are seen, with a nearly confluent appearance, and measuring up to 3 cm in transverse diameter. Multiple enlarged lymph nodes are also seen about the hepatitis and gastrohepatic ligament measuring up to 2.5 cm in short axis. Multiple enlarged lymph nodes are also seen about the celiac axis, with the largest measuring 2 cm in short axis, and which demonstrates internal low density, which may represent a necrotic lymph node. Abdominal and visualized soft tissues appear unremarkable. No acute or destructive osseous lesion is seen. CT/CT abdomen pelvis w con IMPRESSION: Mild wall thickening of the colon is seen, suggestive of mild colitis Multiple enlarged retroperitoneal lymph nodes are seen, with a nearly confluent appearance, and measuring up to 3 cm in transverse diameter. Multiple enlarged lymph nodes are also seen about the hepatitis and gastrohepatic ligament measuring up to 2.5 cm in short axis. Multiple enlarged lymph nodes are also seen about the celiac axis, with the largest measuring 2 cm in short axis, and which demonstrates internal low density, which may represent a necrotic lymph node. Small free pelvic fluid. Electronically authenticated by: GEMMA ORTEGA Date: 11/19/2023 18:12
[2023-11-19] MEDS: 0.9 % SODIUM CHLORIDE 1,000 ML 1000 ML IV (16:47)
[2023-11-19 16:52] LABS: Mono Screen NEGATIVE (NEGATIVE)
[2023-11-19 17:00] VITALS: BP 163/74; PULSE 96; RESP 24; O2SAT 99
[2023-11-19 18:39] LABS: Lactate/Lactic Acid 2.6 mmol/L (0.4-2.0)
== END 2023-11-19 18:55 | disposition home or self-care (01) ==
PROVIDERS: Physician Assistant; Emergency Provider Emergency Medicine; PCP Family Medicine
DX: E86.0 Dehydration (principal); K52.9 Noninfective gastroenteritis and colitis, unspecified; R11.2 Nausea with vomiting, unspecified; Z79.899 Other long term (current) drug therapy; Z79.84 Long term (current) use of oral hypoglycemic drugs; B19.20 Unspecified viral hepatitis C without hepatic coma; M81.0 Age-related osteoporosis without current pathological fracture; F31.9 Bipolar disorder, unspecified; F41.9 Anxiety disorder, unspecified; J44.9 Chronic obstructive pulmonary disease, unspecified; K21.9 Gastro-esophageal reflux disease without esophagitis; Z86.16 Personal history of COVID-19; Z98.890 Other specified postprocedural states
CPT/HCPCS: 36415; 74177; 80053; 81001; 83605; 83690; 84484; 85025; 86308; 87070; 87086; 87804; 87880; 93005; 96361; 96374; 96376; 99285; Q9967

== ENCOUNTER 2023-12-14 12:18 | Emergency (ER) | payer OTHER, SELFPAY ==
[2023-12-14] VITALS (18 sets, daily range): BP systolic 151–205; BP diastolic 80–195; PULSE 80; TEMP 37; O2SAT 97–100; BMI 22.0
[2023-12-14 12:40] LABS: Glucometer 252 mg/dL (74-106)
--- OUTSIDE RECORDS SUMMARY | 2023-12-14 13:14 | XMS_ITS | CCD ---
Demographics Address [address] [facility] [address] [place] [address] Preferred Language en Marital Status Single Latter-Day Affiliation Unknown Race White Ethnic Group Not or Lati no Author Organization [facility] Care Team Providers Care Calibration Engineer Name Role Phone Reva Hollidayul Unavailable Neo Calhoun Unavailable [phone] Kostas Steward DO Primary Care Provider Kostas Steward DO Primary Care Provider KAREL SAM Attending Unavailable KOSTAS STEWARD Referring Unavailab le FURLONG, KOSTAS CONLEY Primary Care Unavailab le FURLOKOSTAS NAVAS Primary Care Unavailab le PROVIDER, UNKNOWN Attending Unavailable PROVIDER, UNKNOWN Admitting Unavailable BIN, DR KOSTAS Hough Primary Care Unavailable ROYAL MENCHACA Consulting Unavailable ROYAL MENCHACA Attending Unavailable ROYAL MENCHACA Admitting Unavailable BIN, DR KOSTAS Hough Primary Care Unavailable ARTURO, DR KARINA Hart Attending Unavailable ARTURO, DR KARINA Hart Admitting Unavailable SOUTHINGTON, DR JUSTINA Cardoso Consulting Unavailable ARTURO, DR KARINA Hart Consulting Unavailable IMAN CASTLE Consulting Unavailreed STEWARD, DR KOSTAS Hough Primary Care Unavailable ASHLEY, DR Camelia Beaulieu Attending Unavailable ASHLEY, DR Camelia Beaulieu Admitting Unavailable FOX DUFF Consulting Unavailable FOX DUFF Attending Unavailable BIN, DR KOSTAS Hough Primary Care Unavailable FOX DUFF Admitting Unavailable BIN, DR KOSTAS Hough Primary Care Unavailable JCAKIE VINCENT Consulting Unavailable JACKIE VINCENT Attending Unavailable JACKIE VINCENT Admitting Unavailable Kwan Madrid Consulting Unavailable RAUL MARVIN Consulting Unavailable ATTILA RAND Attending Unavailable BIN, DR KOSTAS Hough Primary Care Unavailable ATTILA RAND Admitting Unavailable Linnette Avendano Consulting Unavailable JULIO ., ATTILA Consulting Unavailable HAY ., DR OLIVEIRA Attending Unavailable FURLONG, DR KOSTAS Hough Primary Care Unavailable HAY ., DR OLIVEIRA Consulting Unavailable HAY ., DR OLIVEIRA Admitting Unavailable FURLONG, DR KOSTAS Hough Primary Care Unavailable JACKIE VINCENT Consulting Unavailable MELISA, JACKIE Attending Unavailable MELISA, JACKIE Admitting Unavailable FURLONG, DR KOSTAS Hough Primary Care Unavailable PAY ., DR HEARN Consulting Unavailable PAY ., DR HEARN Attending Unavailable PAY ., DR HEARN Admitting Unavailable FURLONG, DR KOSTAS Hough Primary Care Unavailable FURLONG, DR KOSTAS Hough Consulting Unavailable FURLONG, DR KOSTAS Hough Attending Unavailable FURLONG, DR KOSTAS Hough Admitting Unavailable ELTAHAWY, DR BARTLETT Attending Unavailable FURLONG, DR KOSTAS Hough Primary Care Unavailable ELTAHAWY, DR BARTLETT Admitting Unavailable FURLONG, DR KOSTAS Hough Primary Care Unavailable ROYAL MENCHACA Consulting Unavailable NIKOLAI, ROYAL Admitting Unavailable ROYAL MENCHACA Attending Unavailable FURLONG, DR KOSTAS Hough Primary Care Unavailable FURLONG, DR KOSTAS Hough Consulting Unavailable FURLONG, DR KOSTAS Hough Attending Unavailable FURLONG, DR KOSTAS Hough Admitting Unavailable FURLONG, DR KOSTAS Hough Primary Care Unavailable FURLONG, DR KOSTAS Hough Consulting Unavailable FURLONG, DR KOSTAS Hough Attending Unavailable FURLONG, DR KOSTAS Hough Admitting Unavailable Conor Herrera Primary Care Provider Unavailabl e Kostas Steward DO Primary Care Provider DK MONGE Attending Unavailable HARPREETLOKOSTAS NAVAS Referring Unavailable FURLONGKOSTAS Primary Care Unavailable FURLONGKOSTAS Attending Unavailable FURLONGKOSTAS Referring Unavailable FURLONGKOSTAS Primary Care Unavailable Dajuan Whaley Admitting Unavailab Dajuan Condon Attending Unavailab Shaikh Fox Primary Care Unavailable Allergies Allergy Classification Reported Allergen(s) Allergy Type Date of Onset Reaction(s) Facility (8 sources) Butorphanol; Translations: [Stadol] Drug Allergy 4 migraines, vomiting [facility] Repository (16 sources) Acetaminophen / oxyCODONE; Translations: [OXYCODONE-ACETAM INOPHEN] Drug Allergy 5 GI Upset [facility] (16 sources) Butorphanol; Translations: [BUTORPHANOL TARTRATE] Drug Allergy 4 Vomiting [facility] (2 sources) Acetaminophen / oxyCODONE Drug Allergy [facility] Rep[facility] (7 sources) vortioxetine; Translations: [VORTIOXETINE] Drug Allergy 8 [place] (1 source) Butorphanol Drug Allergy 1 [facility] Repository Medications Current Medications Medication Drug Class(es) Dates Sig (Normalized) Sig (Original) ALPRAZolam 2 mg oral tablet (20 sources) Benzodiazepine Start: 10-18-2013 ALPRAZolam (XANAX) 2 mg tablet Take 1 tablet (2 mg total) by mouth in the morning and 1 tablet (2 mg total) at noon and 1 tablet (2 mg total) in the evening and 1 tablet (2 mg total) before bedtime. 0 02/21/2018 Active take 1 tablet by mouth every six hours Xanax 2 MG 1 tablet Orally four times a day Active Comment on above: Take 2 mg by mouth t hree times daily as needed. Indications: Anxiety amLODIPine 10 mg oral tablet (6 sources) Dihydropyridine Calcium Channel Arturo take 1 tablet by mouth every twenty-four hours Norvasc 10 MG 1 tablet Orally Once a day Active atorvastatin 40 mg oral tablet (12 sources) HMG-CoA Reductase Inhibitor Start: 06-22-20 take 1 tablet by mouth in the morning atorvastatin (LIPITOR) 40 mg tablet Take 1 tablet (40 mg total) by mouth in the morning. 30 tablet 11 06/22/2022 Active Budesonide / formoterol (6 sources) Corticosteroid, beta2-Adrenergic Agonist budesonide-formoter oL (SYMBICORT) 160-4.5 mcg/actuation inhaler Inhale 2 puffs every 12 (twelve) hours. 0 Active busPIRone hydrochloride 15 mg oral tablet (12 sources) Start: 08-12-20 take 1 tablet by mouth in the morning, then take 1 tablet by mouth at bedtime busPIRone (BUSPAR) 15 mg tablet Take 1 tablet (15 mg total) by mouth in the morning and 1 tablet (15 mg total) before bedtime. 0 08/12/2022 Active Start: 05-13-2022 take 1 tablet by corey th twice daily busPIRone (BUSPAR) 15 mg tablet Take 15 mg by mouth twice daily. 0 05/13/2022 Active Comment on above: Take 15 mg by mouth twice daily. CAPLYTA 10.5 mg capsule (6 sources) Start: 08-12-20 22 take 1 capsule by mouth in the morning CAPLYTA 10.5 mg capsule Take 1 capsule by mouth in the morning. 0 08/12/2022 Active dapagliflozin 10 mg oral tablet (6 sources) Sodium-Glucose Cotransporter 2 Inhibitor Start: 03-18-20 23 take 1 tablet by mouth in the morning dapagliflozin propanediol (FARXIGA) 10 mg tablet Indications: Type 2 diabetes mellitus with diabetic polyneuropathy, without long-term current use of insulin ([facility]) Take 1 tablet (10 mg total) by mouth in the morning. 30 tablet 5 03/18/2023 Active empagliflozin 25 mg oral tablet (6 sources) Sodium-Glucose Cotransporter 2 Inhibitor take 1 tablet by mouth every twenty-four hours JARDIANCE 25 mg 1 TABLET orally ONCE A DAY Active famotidine 20 mg oral tablet (6 sources) Histamine-2 Receptor Antagonist take 1 tablet by mouth every twenty-four hours glipiZIDE 10 mg oral tablet (18 sources) Sulfonylurea Start: 08-03-20 take 1 tablet by mouth in the morning, then take 1 tablet by mouth at bedtime glipiZIDE (GLUCOTROL) 10 mg tablet Take 1 tablet (10 mg total) by mouth in the morning and 1 tablet (10 mg total) before bedtime. 180 tablet 1 08/03/2022 Active Start: 04-22-2022 take 1 tablet by corey th once daily glipiZIDE (GLUCOTROL XL) 10mg 24 hr tablet Take 10 mg by mouth once daily. 0 04/22/2022 Active Comment on above: Take 10 mg by mouth once daily. ibuprofen 800 mg oral tablet (6 sources) Nonsteroidal Anti-inflammatory Drug Start: 03-07-20 take 1 tablet by mouth three times daily as needed ibuprofen (MOTRIN) 800 mg tablet Take 1 tablet (800 mg total) by mouth 3 (three) times a day as needed. 0 03/07/2023 Active ipratropium bromide 0.042 mg/actuat metered dose nasal spray (6 sources) Anticholinergic take 2 spray(s) nasal route three times daily Ipratropium Amalia 0.06 % 2 sprays in each nostril Nasally Three times a day Active 24 hr levomilnacipran 80 mg extended release oral capsule (20 sources) Serotonin and Norepinephrine Reuptake Inhibitor Start: 02-22-20 End: 05-22-20 take 1 tablet by mouth once daily FETZIMA 80 mg capsule,extended release 24 hr Take 1 tablet by mouth daily. 0 02/21/2018 Active levomilnacipran ER (FETZIMA ER) 40 mg capsule Take by mouth once daily. 0 Active Comment on above: Take by mouth once d aily. TAKE ONE CAPSULE BY MOUTH DAILY AT APPROXIMATELY THE SAME TIME EACH DAY levothyroxine sodium 0.1 mg oral tablet (20 sources) l-Thyroxine Start: 08-03-20 End: 09-04-20 take 1 tablet by mouth in the morning levothyroxine (SYNTHROID, LEVOTHROID) 100 MCG tablet Indications: Acquired hypothyroidism TAKE 1 TABLET (100 MCG TOTAL) BY MOUTH IN THE MORNING. 90 tablet 3 09/04/2023 Active Start: 02-13-2022 take 1 tablet by corey th once daily levothyroxine (SYNTHROID) 100 mcg tablet Take 100 mcg by mouth once daily. 0 02/13/2022 Active Start: 11-27-2020 End: 05-22-2022 take 1 tablet by mouth once daily levothyroxine (SYNTHROID) 125 mcg tablet Take 1 tablet by mouth once daily. 0 11/27/2020 05/22/2022 Discontinued (Changing Therapy/Dosage Form) take 1 tablet by corey th once daily in the morning Levothyroxine Sodium 137 MCG 1 tablet in the morning on an empty stomach Orally Once a day Active Comment on above: Take 1 tablet by corey th once daily. Take 100 mcg by mout h once daily. linaclotide 0.29 mg oral capsule (5 sources) Guanylate Cyclase-C Agonist Linzess 290 MCG 1 capsule at least 30 minutes before the first meal of the day on an empty stomach Orally Once a day Active lithium carbonate 300 mg oral capsule (20 sources) Start: 03-04-2018 take 1 capsule by mouth three times daily lithium carbonate 300 mg capsule Take 1 capsule (300 mg total) by mouth 3 (three) times a day. 0 03/04/2018 Active Start: 10-18-2013 End: 05-22-2022 take 2 capsules by mouth twice daily in the evening LITHIUM CARBONATE 600 mg capsule Indications: Anemia , Iron deficiency Take 300 mg by mouth twice daily with meals. One in AM and Two in PM 0 10/18/2013 05/22/2022 Discontinued (Changing Therapy/Dosage Form) [place] Carbonat e 150 MG 1 capsule Orally 1 capsule in am, 2 capsules in pm Active Comment on above: Take 300 mg by mouth twice daily with meals. One in AM and Two in PM TAKE ONE TABLET BY M OUTH IN THE MORNING AND TWO TABLETS BY MOUTH IN THE EVENING loratadine 10 mg oral tablet (18 sources) Start: 03-15-2023 take 1 tablet by mouth in the morning loratadine (CLARITIN) 10 mg tablet Indications: Allergic rhinitis due to other allergic trigger, unspecified seasonality Take 1 tablet (10 mg total) by mouth in the morning. 90 tablet 3 03/15/2023 Active Start: 04-09-2022 take 1 tablet by corey th once daily loratadine (CLARITIN) 10 mg tablet Take 10 mg by mouth once daily. 0 04/09/2022 Active Comment on above: Take 10 mg by mouth once daily. losartan potassium 100 mg oral tablet (18 sources) Angiotensin 2 Receptor Arturo Start: 3 take 1 tablet by mouth in the morning losartan (COZAAR) 100 mg tablet Indications: Primary hypertension Take 1 tablet (100 mg total) by mouth in the morning. 90 tablet 3 09/01/2023 Active Start: 05-10-2022 take 1 tablet by corey th once daily losartan (COZAAR) 100 mg tablet Take 100 mg by mouth once daily. 0 05/10/2022 Active Comment on above: Take 100 mg by mouth once daily. meclizine hydrochloride 25 mg oral tablet (6 sources) Antiemetic Start: 05-11-20 23 take 1 tablet by mouth three times daily as needed for dizziness meclizine (ANTIVERT) 25 mg tablet Take 1 tablet (25 mg total) by mouth 3 (three) times a day as needed for dizziness. 20 tablet 0 05/11/2023 Active metFORMIN hydrochloride 1000 mg oral tablet (20 sources) Biguanide Start: 02-15-20 18 End: 10-25-19 24 take 1 tablet by mouth at bedtime metFORMIN (GLUCOPHAGE) 1000 mg tablet Indications: Type 2 diabetes mellitus without complication, without long-term current use of insulin ([facility]) TAKE 1 TABLET (1000 MG TOTAL) BY MOUTH IN THE MORNING AND BEFORE BEDTIME 180 tablet 1 10/25/2023 Active Comment on above: Take 1,000 mg by corey th twice daily. montelukast 10 mg oral tablet (18 sources) Leukotriene Receptor Antagonist Start: 08-23-20 23 take 1 tablet by mouth in the morning montelukast (SINGULAIR) 10 mg tablet Take 1 tablet (10 mg total) by mouth in the morning. 30 tablet 5 08/23/2023 Active Start: 04-18-2022 take 1 tablet by corey th once daily montelukast (SINGULAIR) 10 mg tablet Take 10 mg by mouth once daily. 0 04/18/2022 Active Comment on above: Take 10 mg by mouth once daily. pantoprazole 20 mg delayed release oral tablet (6 sources) Proton Pump Inhibitor take 1 tablet by mouth once daily as needed Pantoprazole Sodium 20 MG 1 tablet Orally Once a day prn Active promethazine hydrochloride 12.5 mg oral tablet (7 sources) Phenothiazine Start: 11-17-19 24 End: 11-22-19 24 take 1 tablet by mouth every eight hours as needed for nausea and vomiting promethazine (PHENERGAN) 12.5 mg tablet Take 1 tablet (12.5 mg total) by mouth every 8 (eight) hours as needed for nausea or vomiting for up to 5 days. 15 tablet 0 11/17/2023 11/22/2023 Active Start: 03-02-2022 take 1 tablet by corey th every six hours as needed promethazine (PHENERGAN) 25 mg tablet Take 25 mg by mouth every 6 hours as needed. 0 03/02/2022 Active Comment on above: Take 25 mg by mouth every 6 hours as needed. zolpidem tartrate 5 mg oral tablet (20 sources) gamma-Aminobutyric Acid-ergic Agonist Start: 02-19-2018 take 1 tablet by mouth once daily at bedtime zolpidem (AMBIEN) 5 mg tablet Take 1 tablet (5 mg total) by mouth once daily at bedtime. 0 02/19/2018 Active End: 05-22-2022 take 1 tablet by mouth every twenty-four hours Zolpidem Tartrate 10 MG 1 tablet at bedtime as needed Orally Once a day Active Comment on above: Take by mouth at bed time as needed. TAKE ONE TABLET BY M OUTH DAILY AT BEDTIME NEEDED FOR SLEEP Completed/Discontinued Medications Medication Drug Class(es) Dates Sig (Normalized) Sig (Original) azithromycin 250 mg oral tablet (6 sources) Macrolide Antimicrobial Start: 05-06-2022 azithromycin (ZITHROMAX) 250 mg tablet Take by mouth as directed. TAKE 2 TABLETS BY MOUTH TODAY, THEN TAKE 1 TABLET DAILY FOR 4 DAYS 0 05/06/2022 Active Comment on above: Take by mouth as dir ected. TAKE 2 TABLETS BY MOUTH TODAY, THEN TAKE 1 TABLET DAILY FOR 4 DAYS budesonide/formoter ol fumarate (SYMBICORT INHALATION) (8 sources) budesonide/formo t beverley fumarate (SYMBICORT INHALATION) Inhale as instructed. 0 Active Comment on above: Inhale as instructed . cloNIDine hydrochloride 0.1 mg oral tablet (8 sources) Central alpha-2 Adrenergic Agonist take 1 tablet by mouth twice daily cloNIDine HCl (CATAPRES) 0.1 mg tablet Take 0.1 mg by mouth twice daily. 0 Active Comment on above: Take 0.1 mg by mouth twice daily. 120 actuat fluticasone propionate 0.22 mg/actuat metered dose inhaler (14 sources) Corticosteroid Start: 11-13-2019 End: 05-22-2022 take 2 puff(s) by inhalation twice daily fluticasone (FLOVENT) 220 mcg/actuation inhaler Inhale 2 Puffs as instructed twice daily. 0 11/13/2019 05/22/2022 Discontinued (Discontinued by Patient) Start: 05-12-2018 take 1 spray(s) nasa l route once daily fluticasone (FLONASE) 50 mcg/actuation nasal spray Administer 1 spray into each nostril daily. 15.8 mL 12 05/12/2018 Active take 1-2 spray(s) na hiral route once daily at bedtime FLONASE 50 mcg 1-2 sprays each NOSTRIL QHS Active Comment on above: Inhale 2 Puffs as in structed twice daily. gabapentin 100 mg oral capsule (2 sources) Anti-epileptic Agent Start: 1 End: 2 take 1 capsule by mouth three times daily gabapentin (NEURONTIN) 100 mg capsule Indications: Chronic cough , Vagal nerve sensitivity , Sensory neuropathy TAKE 1 CAPSULE BY MOUTH 3 TIMES A DAY 270 capsule 3 04/15/2021 05/22/2022 Discontinued (Discontinued by Patient) Comment on above: TAKE 1 CAPSULE BY MO UT 3 TIMES A DAY lactulose 667 mg/ml oral solution (16 sources) Osmotic Laxative Start: lactulose (DUPHALAC, CONSTULOSE) 10 gram/15 mL solution TAKE 60 ML TWICE DAILY 0 03/30/2022 Active Start: 07-23-2021 take 60 mL by mouth twice amy y Lactulose 20 GM/30ML 60 ml Orally bid for 30 days Jul, Active Lactulose 10 GM/ 15ML 60 ml Orally as directed for 30 day(s) Active take 30 mL by mouth twice daily Lactulose 10 GM/15ML 30 ml Orally bid Active Comment on above: TAKE 60 ML TWICE ALEJANDRA LY metoclopramide 10 mg oral tablet (8 sources) Dopamine-2 Receptor Antagonist Start: 09-17-2013 METOCLOPRAMIDE HCL 10 mg tablet as needed. 0 09/17/2013 Active Comment on above: as needed. omeprazole 20 mg delayed release oral capsule (12 sources) Proton Pump Inhibitor Start: 05-17-2022 omeprazole (PRILOSEC) 20 mg capsule take 1 capsule by mouth once alejandra ly Problems Active Problems Problem Classification Problem Date Documented Da te Episodic/Chronic Anxiety disorders (15 sources) Posttraumatic stress disorder; Translations: [Post-traumatic stress disorder, unspecified] Onset: 2 02-21-2015 Chronic Blindness and vision defects (1 source) Unspecified visual loss; Translations: [UNSPECIFIED VISUAL LOSS] Onset: 3 Chronic Chronic obstructive pulmonary disease and bronchiectasis (16 sources) Chronic obstructive lung disease; Translations: [Chronic obstructive pulmonary disease, unspecified] Onset: 2 02-21-2015 Chronic Deficiency and other anemia (12 sources) Iron deficiency anemia due to blood loss; Translations: [Iron deficiency anemia secondary to blood loss (chronic)] Onset: 2 05-25-2022 Chronic Deficiency and other anemia (1 source) Anemia due to chronic blood loss; Translations: [Iron deficiency anemia secondary to blood loss (chronic)] Chronic Deficiency and other anemia (1 source) Iron deficiency anemia secondary to blood loss (chronic); Translations: [Iron deficiency anemia secondary to blood loss (chronic)] Onset: 2 Chronic Deficiency and other anemia (2 sources) Normocytic normochromic anemia; Translations: [Anemia, unspecified] Episodic Diabetes mellitus with complications (1 source) Type 2 diabetes mellitus with hyperglycemia; Translations: [TYPE 2 DM W/HYPERGLYCEMIA] Onset: 3 Chronic Diabetes mellitus without complication (20 sources) Diabetes mellitus; Translations: [Type 2 diabetes mellitus without complications] Onset: 1 Resolved: 1 Chronic Digestive congenital anomalies (6 sources) Tortuous colon; Translations: [Other specified congenital malformations of intestine] Onset: 1 Resolved: 1 Chronic Disorders of lipid metabolism (9 sources) Dyslipidemia; Translations: [Hyperlipidemia, unspecified] Onset: 1 Resolved: 1 Chronic Disorders of teeth and jaw (5 sources) Other specified disorders of teeth and supporting structures; Translations: [Periapical abscess without sinus] Onset: 3 Episodic E Codes: Struck by; against (1 source) Striking against other stationary object, initial encounter; Translations: [STRIK AGNST OTH STATIONARY OBJ INIT] Onset: 3 Episodic Esophageal disorders (19 sources) Gastroesophageal reflux disease; Translations: [Gastro-esophageal reflux disease without esophagitis] Onset: 1 Resolved: 1 Chronic Essential hypertension (19 sources) Hypertensive disorder; Translations: [Essential (primary) hypertension] Onset: 1 Resolved: 1 Chronic Genitourinary symptoms and ill-defined conditions (6 sources) Incontinence; Translations: [Mixed incontinence] Onset: 3 08-23-2023 Chronic Headache; including migraine (6 sources) Refractory migraine without aura; Translations: [Migraine without aura, intractable, without status migrainosus] Onset: 3 08-23-2023 Chronic Headache; including migraine (1 source) Headache; including migraine; Translations: [HEADACHE UNSPECIFIED] Onset: 2 Hepatitis (7 sources) Viral hepatitis C; Translations: [Unspecified viral hepatitis C without hepatic coma] Onset: 3 Episodic Malaise and fatigue (2 sources) Weakness; Translations: [Asthenia] Onset: 2 11-18-2023 Episodic Menopausal disorders (1 source) Hormone replacement therapy; Translations: [HORMONE REPLACEMENT THERAPY] Onset: 3 Episodic Menstrual disorders (6 sources) Irregular periods; Translations: [Irregular menstruation, unspecified] Onset: 3 08-23-2023 Chronic Miscellaneous mental health disorders (6 sources) Not getting enough sleep; Translations: [Insufficient sleep syndrome] Onset: 3 08-23-2023 Chronic Mood disorders (20 sources) Bipolar I disorder; Translations: [Bipolar disorder, unspecified] Onset: 2 02-21-2015 Chronic Osteoarthritis (14 sources) Arthritis; Translations: [Unspecified osteoarthritis, unspecified site] Onset: 2 02-21-2015 Chronic Other acquired deformities (14 sources) Scoliosis deformity of spine; Translations: [Scoliosis, unspecified] Onset: 2 02-21-2015 Chronic Other aftercare (5 sources) Other care home (current) drug therapy; Translations: [OTH HALFWAY CURRENT DRUG THERAPY] Onset: 2 Episodic Other aftercare (1 source) [facility] (current) use of oral hypoglycemic drugs; Translations: [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 USE ORAL HYPOGLYCEMIC DX] Onset: 3 Episodic Other ear and sense organ disorders (6 sources) Sensorineural hearing loss, bilateral; Translations: [Sensorineural hearing loss, bilateral] Onset: 3 08-23-2023 Chronic Other ear and sense organ disorders (4 sources) Otalgia, right ear; Translations: [OTALGIA RIGHT EAR] Onset: 3 Episodic Other endocrine disorders (8 sources) Hyperparathyroidism; Translations: [Hyperparathyroidism, unspecified] Onset: 4 11-20-2023 Chronic Other endocrine disorders (1 source) Hyperparathyroidism, unspecified; Translations: [Hyperparathyroidism E21.3] Onset: 1 Resolved: 1 Chronic Other endocrine disorders (6 sources) Empty sella syndrome; Translations: [Other disorders of pituitary gland] Onset: 3 08-23-2023 Chronic Other endocrine disorders (1 source) Other disorders of pituitary gland; Translations: [Other disorders of pituitary gland] Onset: 3 Chronic Other gastrointestinal disorders (5 sources) Irritable bowel syndrome characterized by constipation; Translations: [Irritable bowel syndrome with constipation] Chronic Other gastrointestinal disorders (3 sources) Irritable bowel syndrome with constipation Onset: 1 Resolved: 2 Chronic Other gastrointestinal disorders (1 source) Irritable bowel syndrome without diarrhea; Translations: [IRRITABLE BOWEL SYND W/O DIARRHEA] Onset: 3 Chronic Other gastrointestinal disorders (6 sources) Constipation; Translations: [Constipation, unspecified] Episodic Other gastrointestinal disorders (6 sources) Altered bowel function; Translations: [Change in bowel habit] Episodic Other gastrointestinal disorders (1 source) Diarrhea of presumed infectious origin; Translations: [Diarrhea, unspecified] 11-17-2023 Episodic Other injuries and conditions due to external causes (8 sources) H/O: fracture; Translations: [Personal history of (healed) traumatic fracture] 09-01-2021 Episodic Other injuries and conditions due to external causes (1 source) Other specified injuries of head, initial encounter; Translations: [OTH SPEC INJURIES HEAD INITIAL ENC] Onset: 3 Episodic Other liver diseases (4 sources) Alkaline phosphatase raised; Translations: [Abnormal levels of other serum enzymes] Episodic Other lower respiratory disease (1 source) Oral airway finding; Translations: [Respiratory disorder, unspecified] 01-29-2021 Episodic Other lower respiratory disease (1 source) Respiratory obstruction; Translations: [Other specified respiratory disorders] 01-29-2021 Episodic Other non-epithelial cancer of skin (1 source) Personal history of other malignant neoplasm of skin; Translations: [PERSONAL HX OTH MALIG NEOPLASM SKIN] Onset: 3 Episodic Other nutritional; endocrine; and metabolic disorders (12 sources) Hypercalcemia; Translations: [Hypercalcemia] Onset: 3 08-23-2023 Chronic Other nutritional; endocrine; and metabolic disorders (1 source) Hypercalcemia; Translations: [Hypercalcemia E83.52] Onset: 1 Resolved: 1 Chronic Other nutritional; endocrine; and metabolic disorders (6 sources) Body mass index 25-29 - overweight; Translations: [Body mass index (BMI) 27.0-27.9, adult] Episodic Other screening for suspected conditions (not mental disorders or infectious disease) (1 source) Encounter for screening mammogram for malignant neoplasm of breast; Translations: [Encounter for screening mammogram for malignant neoplasm of breast] Onset: 3 Episodic Other upper respiratory disease (6 sources) Allergic rhinitis; Translations: [Allergic rhinitis, unspecified] Onset: 2 08-25-2022 Chronic Other upper respiratory disease (1 source) Chronic rhinitis; Translations: [Chronic rhinitis] Onset: 3 Chronic Pneumonia (except that caused by tuberculosis or sexually transmitted disease) (1 source) Pneumonia (except that caused by tuberculosis or sexually transmitted disease); Translations: [PNEUMONIA D/T CORONAVIRUS DIS 2019] Onset: 3 Residual codes; unclassified (1 source) Sleep apnea, unspecified; Translations: [SLEEP APNEA UNSPECIFIED] Onset: 3 Chronic Residual codes; unclassified (6 sources) Disorder of digestive tract; Translations: [Acquired absence of other specified parts of digestive tract] Onset: 3 08-23-2023 Episodic Respiratory failure; insufficiency; arrest (adult) (1 source) Chronic respiratory failure with hypoxia; Translations: [CHRONIC RESPIRATORY FAIL W/HYPOXIA] Onset: 3 Chronic Superficial injury; contusion (3 sources) Abrasion of other part of head, initial encounter; Translations: [Abrasion, right knee, initial encounter] Onset: 3 Episodic Thyroid disorders (14 sources) Hypothyroidism; Translations: [Hypothyroidism, unspecified] Onset: 2 09-03-2023 Chronic Thyroid disorders (8 sources) Disorder of thyroid gland; Translations: [Disorder of thyroid, unspecified] 02-21-2015 Episodic Unclassified (2 sources) COUGH, UNSPECIFIED; Translations: [COUGH, UNSPECIFIED] Onset: 3 Unclassified (1 source) CONTACT W/AND (SUSP) EXPOS COVID-19; Translations: [CONTACT W/AND (SUSP) EXPOS COVID-19] Onset: 2 Viral infection (3 sources) COVID-19; Translations: [COVID-19] Onset: Past or Other Problems Problem Classification Problem Date Documented Da te Episodic/Chronic Acute bronchitis (1 source) Acute bronchitis, unspecified; Translations: [ACUTE BRONCHITIS UNSPECIFIED] Onset: 09-14-2022 Episodic Conditions associated with dizziness or vertigo (1 source) Dizziness and giddiness; Translations: [DIZZINESS AND GIDDINESS] Onset: 07-10-2022 Episodic Deficiency and other anemia (14 sources) Anemia; Translations: [Anemia, unspecified] Onset: 10-26-2013 10-26-2013 Episodic Deficiency and other anemia (12 sources) 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; Translations: [Vitamin B12 deficiency anemia due to selective vitamin B12 malabsorption with proteinuria] Onset: 05-25-2022 05-25-2022 Episodic Deficiency and other anemia (5 sources) Anemia, unspecified; Translations: [Anemia, normocytic normochromic] Onset: 05-04-2022 Episodic Gastrointestinal hemorrhage (4 sources) Hematemesis; Translations: [HEMATEMESIS] Onset: 05-16-2022 Episodic Mood disorders (7 sources) Mood disorders; Translations: [DEPRESSION UNSPECIFIED] Onset: 01-19-2023 08-23-2023 Nausea and vomiting (4 sources) Nausea with vomiting, unspecified; Translations: [NAUSEA WITH VOMITING UNSPECIFIED] Onset: 07-08-2022 Episodic Nonspecific chest pain (4 sources) Chest pain, unspecified; Translations: [CHEST PAIN UNSPECIFIED] Onset: 09-22-2022 Episodic Nutritional deficiencies (14 sources) Iron deficiency; Translations: [Iron deficiency] Onset: 10-26-2013 10-26-2013 Episodic Other connective tissue disease (14 sources) Impingement syndrome of left shoulder region; Translations: [Impingement syndrome of left shoulder] Onset: 02-21-2015 02-21-2015 Episodic Other connective tissue disease (6 sources) Hand muscle weakness; Translations: [Muscle weakness (generalized)] Onset: 06-28-2023 08-23-2023 Episodic Other infections; including parasitic (1 source) Personal history of other infectious and parasitic diseases Onset: 07-23-2021 Resolved: 07-23-2021 Episodic Other liver diseases (1 source) Abnormal levels of other serum enzymes Onset: 07-23-2021 Resolved: 07-23-2021 Episodic Other lower respiratory disease (6 sources) Dyspnea on exertion; Translations: [Other forms of dyspnea] Onset: 10-08-2022 10-08-2022 Episodic Pneumonia (except that caused by tuberculosis or sexually transmitted disease) (14 sources) Pneumonia; Translations: [Pneumonia, unspecified organism] Onset: 08-25-2022 Resolved: 03-15-2023 02-21-2015 Episodic Residual codes; unclassified (1 source) Procedure and treatment not carried out because of patient's decision for other reasons; Translations: [PROC AND TX NOT CARRIED OUT PT OTH RSN] Onset: 09-29-2022 Episodic Screening and history of mental health and substance abuse codes (1 source) Personal history of nicotine dependence; Translations: [PERSONAL HISTORY OF NICOTINE DEPEND] Onset: 09-29-2022 Episodic Skull and face fractures (14 sources) Fracture of bone of head; Translations: [Fracture of mandible, unspecified, initial encounter for closed fracture] Onset: 08-25-2022 09-01-2021 Episodic Spondylosis; intervertebral disc disorders; other back problems (20 sources) Neck pain; Translations: [Cervicalgia] Onset: 02-21-2015 02-21-2015 Episodic Sprains and strains (12 sources) Strain of neck muscle; Translations: [Strain of muscle, fascia and tendon at neck level, initial encounter] Onset: 06-28-2023 08-23-2023 Episodic Unclassified (1 source) COUGH, UNSPECIFIED; Translations: [COUGH, UNSPECIFIED] Onset: 09-12-2022 Viral infection (1 source) Viral infection, unspecified; Translations: [VIRAL INFECTION UNSPECIFIED] Onset: 07-10-2022 Episodic Results Test Name Value Interpretation Reference Range Facility LITHIUMon 12-22-2022 [place] (Eskalith(R)), Serum 0.8 mmol/L Normal 0.5-1.2 [facility] Comment on above: Result Comment: A co ncentration of 0.5-0.8 mmol/L is advised for long-term use; concentrations of up to 1.2 mmol/L may be necessary during acute treatment. Detection Limit = 0.1 <0.1 indicates None Detected Performed By: #### O BSCRN #### [facility] [address] [address] [address] Rosangela Smyth CREATININEon 12-21-2022 Creatinine [Mass/Vol] 0.93 mg/dL Normal 0.55-1.02 [facility] Comment on above: Performed By: #### L IPID, CMP #### [facility] [address] [address] [address] Rosangela Smyth EGFR-AF TUNISIAN >60 Normal >=60 [facility] Comment on above: Performed By: #### L IPID, CMP #### [facility] [address] [address] [address] Rosangela Smyth EGFR-NON AF TUNISIAN >60 Normal >=60 [facility] Comment on above: Performed By: #### L IPID, CMP #### [facility] [address] [place] [address] Dr. Rosangela Smyth GLUCOSE BLOODon 12-21-2022 Glucose [Mass/Vol] 135 mg/dL Critically high 74-106 [facility] Comment on above: Performed By: #### L IPID, CMP #### [facility] [address] [place] [address] Dr. Rosangela Smyth LIPID PROFILEon 12-21-2022 CHOL-HDL RATIO NORM SEE BELOW Normal [facility] Comment on above: Result Comment: 3.3 - 4.4 LOW RISK 4.4 - 7.1 AVERAGE RISK 7.1 - 11.0 MODERATE RISK >11.0 HIGH RISK Performed By: #### L IPID, CMP #### [facility] [address] [address] [address] Rosangela Smyth Cholesterol [Mass/Vol] 194 mg/dL Normal <=200 [facility] Comment on above: Performed By: #### L IPID, CMP #### [facility] [address] [place] [address] Dr. Rosangela Smyth Cholesterol in HDL [Mass/Vol] 68 mg/dL Critically high 40-60 [facility] Comment on above: Performed By: #### L IPID, CMP #### [facility] [address] [place] [address] Dr. Rosangela Smyth Cholesterol in LDL [Mass/Vol] 106.8 mg/dL Normal [facility] Comment on above: Performed By: #### L IPID, CMP #### [facility] [address] [address] [address] Rosangela Smyth Cholesterol.total/Ch olesterol in HDL [Mass ratio] 2.9 {ratio} Normal [facility] Comment on above: Performed By: #### L IPID, CMP #### [facility] [address] [address] [address] Rosangela Smyth HDL NORMAL > or = 60 mg/dl - LOW CARDIOVASCULAR RISK <40 mg/dl - HIGH CARDIOVASCULAR RISK Normal [facility] Comment on above: Performed By: #### L IPID, CMP #### [facility] [address] [place] [address] Dr. Rosangela Smyth LDL CALC NORMAL SEE BELOW Normal [facility] Comment on above: Result Comment: <100 mg/dl OPTIMAL 100 - 129 mg/dl NEAR OR ABOVE OPTIMAL 130 - 159 mg/dl BORDERLINE HIGH 160 - 189 mg/dl HIGH >190 mg/dl VERY HIGH Performed By: #### L IPID, CMP #### [facility] [address] [place] [address] Dr. Rosangela Smyth Triglyceride [Mass/Vol] 96 mg/dL Normal <=150 [facility] Comment on above: Performed By: #### L IPID, CMP #### [facility] [address] [place] [address] Dr. Rosangela Smyth VLDL CALC 19.2 mg/dL Normal [facility] Comment on above: Performed By: #### L IPID, CMP #### [facility] [address] [address] [address] Rosangela Smyth TSHon 12-21-2022 TSH 2.649 uIU/mL Normal 0.358-3.740 [facility] Comment on above: Performed By: #### L IPID, CMP #### [facility] [address] [place] [address] Dr. Rosangela Smyth CBC AUTO DIFFon 09-25-2022 BASO # 0.0 103/ul Normal 0.0-0.1 [facility] Comment on above: Performed By: #### C BC #### [facility] [address] [place] [address] Dr. Rosangela Smyth Basophils/100 WBC (Bld) 0.0 % Critically low 0.2-2.0 [facility] Comment on above: Performed By: #### C BC #### [facility] [address] [place] [address] Dr. Rosangela Smyth EO # 0.0 103/ul Normal 0.0-0.7 [facility] Comment on above: Performed By: #### C BC #### [facility] [address] [place] [address] Dr. Rosangela Smyth Eosinophils/100 WBC (Bld) 0.0 % Critically low 0.9-7.0 [facility] Comment on above: Performed By: #### C BC #### [facility] [address] [place] [address] Dr. Rosangela Smyth Erythrocyte distribution width (RBC) [Ratio] 15.9 % Critically high 11.0-15.0 [facility] Comment on above: Performed By: #### C BC #### [facility] [address] [place] [address] Dr. Rosangela Smyth Hematocrit (Bld) [Volume fraction] 25.7 % Critically low 36.0-48.0 [facility] Comment on above: Performed By: #### C BC #### [facility] [address] [place] [address] Dr. Rosangela Smyth Hemoglobin (Bld) [Mass/Vol] 8.3 g/dL Critically low 12.0-16.0 [facility] Comment on above: Performed By: #### C BC #### [facility] [address] [place] [address] Dr. Rosangela Smyth IG # 0.03 10e3/ul Normal 0.00-0.03 [facility] Comment on above: Performed By: #### C BC #### [facility] [address] [place] [address] Dr. Rosangela Smyth IG % 0.6 % Critically high 0.0-0.5 [facility] Comment on above: Performed By: #### C BC #### [facility] [address] [place] [address] Dr. Rosangela Smyth LYMPH # 0.7 103/ul Critically low 1.2-3.8 [facility] Comment on above: Performed By: #### C BC #### [facility] [address] [place] [address] Dr. Rosangela Smyth Lymphocytes/100 WBC (Bld) 13.8 % Critically low 20.5-60.0 [facility] Comment on above: Performed By: #### C BC #### [facility] [address] [place] [address] Dr. Rosangela Smyth MANUAL DIFF REQ NO Normal [facility] Comment on above: Performed By: #### C BC #### [facility] [address] [place] [address] Dr. Rosangela Smyth MCH (RBC) [Entitic mass] 31.1 pg Normal 26.7-34.0 [facility] Comment on above: Performed By: #### C BC #### [facility] [address] [place] [address] Dr. Rosangela Smyth MCHC (RBC) [Mass/Vol] 32.3 g/dL Normal 29.9-35.2 [facility] Comment on above: Performed By: #### C BC #### [facility] [address] [place] [address] Dr. Rosangela Smyth MCV (RBC) [Entitic vol] 96.3 fL Normal 81.0-99.0 [facility] Comment on above: Performed By: #### C BC #### [facility] [address] [place] [address] Dr. Rosangela Smyth MONO # 0.3 103/ul Normal 0.3-0.8 [facility] Comment on above: Performed By: #### C BC #### [facility] [address] [place] [address] Dr. Rosangela Smyth Monocytes/100 WBC (Bld) 4.9 % Normal 1.7-12.0 [facility] Comment on above: Performed By: #### C BC #### [facility] [address] [address] [address] Rosangela Smyth NEUT # 4.3 103/ul Normal 1.4-6.5 [facility] Comment on above: Performed By: #### C BC #### [facility] [address] [address] [address] Rosangela Smyth Neutrophils/100 WBC (Bld) 80.7 % Critically high 43.0-75.0 [facility] Comment on above: Performed By: #### C BC #### [facility] [address] [address] [address] Rosangela Smyth Platelet mean volume (Bld) [Entitic vol] 9.1 fL Critically low 9.5-13.5 [facility] Comment on above: Performed By: #### C BC #### [facility] [address] [address] [address] Rosangela Smyth PLT 234 103/ul Normal 150-450 [facility] Comment on above: Performed By: #### C BC #### [facility] [address] [address] [address] Rosangela Smyth RBC 2.67 106/ul Critically low 4.20-5.40 [facility] Comment on above: Performed By: #### C BC #### [facility] [address] [address] [address] Rosangela Smyth WBC 5.4 103/ul Normal 4.0-11.0 [facility] Comment on above: Performed By: #### C BC #### [facility] [address] [address] [address] Rosangela Smyth PROF CHEM 8 (BAS METB)on Anion gap [Moles/Vol] 11.7 mmol/L Normal [facility] Comment on above: Performed By: #### L IPID, CMP #### [facility] [address] [address] [address] Rosangela Smyth Calcium [Mass/Vol] 10.5 mg/dL Critically high 8.5-10.1 [facility] Comment on above: Performed By: #### L IPID, CMP #### [facility] [address] [address] [address] Rosangela Smyth Chloride [Moles/Vol] 114 mmol/L Critically high 98-107 [facility] Comment on above: Performed By: #### L IPID, CMP #### [facility] [address] [address] [address] Rosangela Smyth CO2 [Moles/Vol] 21.9 mmol/L Normal 21.0-32.0 [facility] Comment on above: Performed By: #### L IPID, CMP #### [facility] [address] [place] [address] Dr. Rosangela Smyth Creatinine [Mass/Vol] 0.91 mg/dL Normal 0.55-1.02 [facility] Comment on above: Performed By: #### L IPID, CMP #### [facility] [address] [address] [address] Rosanglea Smyth EGFR-AF TUNISIAN >60 Normal >=60 [facility] Comment on above: Performed By: #### L IPID, CMP #### [facility] [address] [place] [address] Dr. Rosangela Smyth EGFR-NON AF TUNISIAN >60 Normal >=60 [facility] Comment on above: Performed By: #### L IPID, CMP #### [facility] [address] [address] [address] Rosangela Smyth Glucose [Mass/Vol] 108 mg/dL Critically high 74-106 [facility] Comment on above: Performed By: #### L IPID, CMP #### [facility] [address] [address] [address] Rosangela Smyth Potassium [Moles/Vol] 3.6 mmol/L Normal 3.5-5.1 [facility] Comment on above: Performed By: #### L IPID, CMP #### [facility] [address] [address] [address] Rosangela Smyth Sodium [Moles/Vol] 144 mmol/L Normal 136-145 [facility] Comment on above: Performed By: #### L IPID, CMP #### [facility] [address] [place] [address] Dr. Rosangela Smyth Urea nitrogen [Mass/Vol] 20.0 mg/dL Critically high 7.0-18.0 [facility] Comment on above: Performed By: #### L IPID, CMP #### [facility] [address] [place] [address] Dr. Rosangela Smyth Urea nitrogen/Creatinine [Mass ratio] 22.0 mg/mg Normal [facility] Comment on above: Performed By: #### L IPID, CMP #### [facility] [address] [place] [address] Dr. Rosangela Smyth CBC AUTO DIFFon 09-24-2022 BASO # 0.0 103/ul Normal 0.0-0.1 [facility] Comment on above: Performed By: #### C BC #### [facility] [address] [place] [address] Dr. Rosangela Smyth Basophils/100 WBC (Bld) 0.0 % Critically low 0.2-2.0 [facility] Comment on above: Performed By: #### C BC #### [facility] [address] [place] [address] Dr. Rosangela Smyth EO # 0.0 103/ul Normal 0.0-0.7 [facility] Comment on above: Performed By: #### C BC #### [facility] [address] [place] [address] Dr. Rosangela Smyth Eosinophils/100 WBC (Bld) 0.0 % Critically low 0.9-7.0 [facility] Comment on above: Performed By: #### C BC #### [facility] [address] [place] [address] Dr. Rosangela Smyth Erythrocyte distribution width (RBC) [Ratio] 15.7 % Critically high 11.0-15.0 [facility] Comment on above: Performed By: #### C BC #### [facility] [address] [place] [address] Dr. Rosangela Smyth Hematocrit (Bld) [Volume fraction] 30.3 % Critically low 36.0-48.0 [facility] Comment on above: Performed By: #### C BC #### [facility] [address] [address] [address] Rosangela Smyth Hemoglobin (Bld) [Mass/Vol] 9.5 g/dL Critically low 12.0-16.0 [facility] Comment on above: Performed By: #### C BC #### [facility] [address] [address] [address] Rosangela Smyth IG # 0.02 10e3/ul Normal 0.00-0.03 [facility] Comment on above: Performed By: #### C BC #### [facility] [address] [place] [address] Dr. Rosangela Smyth IG % 0.6 % Critically high 0.0-0.5 [facility] Comment on above: Performed By: #### C BC #### [facility] [address] [address] [address] Rosangela Smyth LYMPH # 0.6 103/ul Critically low 1.2-3.8 [facility] Comment on above: Performed By: #### C BC #### [facility] [address] [place] [address] Dr. Rosangela Smyth Lymphocytes/100 WBC (Bld) 17.7 % Critically low 20.5-60.0 [facility] Comment on above: Performed By: #### C BC #### [facility] [address] [place] [address] Dr. Rosangela Smyth MANUAL DIFF REQ NO Normal [facility] Comment on above: Performed By: #### C BC #### [facility] [address] [place] [address] Dr. Rosangela Smyth MCH (RBC) [Entitic mass] 30.6 pg Normal 26.7-34.0 [facility] Comment on above: Performed By: #### C BC #### [facility] [address] [place] [address] Dr. Rosangela Smyth MCHC (RBC) [Mass/Vol] 31.4 g/dL Normal 29.9-35.2 [facility] Comment on above: Performed By: #### C BC #### [facility] [address] [place] [address] Dr. Rosangela Smyth MCV (RBC) [Entitic vol] 97.7 fL Normal 81.0-99.0 [facility] Comment on above: Performed By: #### C BC #### [facility] [address] [place] [address] Dr. Rosangela Smyth MONO # 0.1 103/ul Critically low 0.3-0.8 [facility] Comment on above: Performed By: #### C BC #### [facility] [address] [place] [address] Dr. Rosangela Smyth Monocytes/100 WBC (Bld) 2.5 % Normal 1.7-12.0 [facility] Comment on above: Performed By: #### C BC #### [facility] [address] [place] [address] Dr. Rosangela Smyth NEUT # 2.5 103/ul Normal 1.4-6.5 [facility] Comment on above: Performed By: #### C BC #### [facility] [address] [place] [address] Dr. Rosangela Smyth Neutrophils/100 WBC (Bld) 79.2 % Critically high 43.0-75.0 [facility] Comment on above: Performed By: #### C BC #### [facility] [address] [place] [address] Dr. Rosangela Smyth Platelet mean volume (Bld) [Entitic vol] 8.9 fL Critically low 9.5-13.5 [facility] Comment on above: Performed By: #### C BC #### [facility] [address] [place] [address] Dr. Rosangela Smyth PLT 218 103/ul Normal 150-[address] [facility] Comment on above: Performed By: #### C BC #### [facility] [address] [place] [address] Dr. Rosangela Smyth RBC 3.10 106/ul Critically low 4.20-5.40 [facility] Comment on above: Performed By: #### C BC #### [facility] [address] [address] [address] Rosangela Smyth WBC 3.2 103/ul Critically low 4.0-11.0 [facility] Comment on above: Performed By: #### C BC #### [facility] [address] [address] [address] Rosangela Smyth POINT OF CARE GLUCOSEon 09-06 Glucose [Mass/Vol] 291 mg/dL Critically high 74-106 [facility] Comment on above: Performed By: #### P OCGLUC #### [facility] [address] [place] [address] Dr. Rosangela Smyth PROF CHEM 8 (BAS METB)on Anion gap [Moles/Vol] 14.6 mmol/L Normal [facility] Comment on above: Performed By: #### L ACT #### [facility] [address] [place] [address] Dr. Rosangela Smyth Calcium [Mass/Vol] 10.7 mg/dL Critically high 8.5-10.1 [facility] Comment on above: Performed By: #### L ACT #### [facility] [address] [place] [address] Dr. Rosangela Smyth Chloride [Moles/Vol] 113 mmol/L Critically high 98-107 [facility] Comment on above: Performed By: #### L ACT #### [facility] [address] [place] [address] Dr. Rosangela Smyth CO2 [Moles/Vol] 20.7 mmol/L Critically low 21.0-32.0 [facility] Comment on above: Performed By: #### L ACT #### [facility] [address] [place] [address] Dr. Rosangela Smyth Creatinine [Mass/Vol] 0.86 mg/dL Normal 0.55-1.02 [facility] Comment on above: Performed By: #### L ACT #### [facility] [address] [place] [address] Dr. Rosangela Smyth EGFR-AF TUNISIAN >60 Normal >=60 [facility] Comment on above: Performed By: #### L ACT #### [facility] [address] [address] [address] Rosangela Smyth EGFR-NON AF TUNISIAN >60 Normal >=60 [facility] Comment on above: Performed By: #### L ACT #### [facility] [address] [address] [address] Rosangela Smyth Glucose [Mass/Vol] 279 mg/dL Critically high 74-106 [facility] Comment on above: Performed By: #### L ACT #### [facility] [address] [address] [address] Rosangela Smyth Potassium [Moles/Vol] 4.3 mmol/L Normal 3.5-5.1 [facility] Comment on above: Performed By: #### L ACT #### [facility] [address] [address] [address] Rosangela Smyth Sodium [Moles/Vol] 144 mmol/L Normal 136-145 [facility] Comment on above: Performed By: #### L ACT #### [facility] [facility] [address] [address] [address] Rosangela Smyth Urea nitrogen [Mass/Vol] 14.0 mg/dL Normal 7.0-18.0 [facility] Comment on above: Performed By: #### L ACT #### [facility] [address] [address] [address] Rosangela Smyth Urea nitrogen/Creatinine [Mass ratio] 16.3 mg/mg Normal [facility] Comment on above: Performed By: #### L ACT #### [facility] [address] [address] [address] Rosangela Smyth CARDIAC CRYSTAL ADMITon 023 CK [Catalytic activity/Vol] 22 U/L Critically low 26-192 [facility] Comment on above: Performed By: #### L IPID, CMP #### [facility] [address] [address] [address] Rosangela Smyth CK.MB [Mass/Vol] ng/mL Normal <=3.60 [facility] Comment on above: Performed By: #### L IPID, CMP #### [facility] [address] [place] [address] Dr. Rosangela Smyth HSTROP 5.7 pg/mL Normal 4.0-51.3 [facility] Comment on above: Result Comment: CUT- OFF POINTS HAVE BEEN ESTABLISHED BASED ON THE FOURTH UNIVERSAL DEFINITIONS OF MYOCARDIAL INFARCTION. THE UPPER REFERENCE LIMIT (URL) OF TROPONIN, DEFINED THE 99TH PERCENTILE OF cTnI DISTRIBUTION IN A REFERENCE POPULATION, HAS BEEN CONFIRMED THE DECISION THRESHOLD FOR MO DIAGNOSIS. Performed By: #### L IPID, CMP #### [facility] [address] [place] [address] Dr. Rosangela Smyth JOVAN 40 ng/mL Normal 9-82 [facility] Comment on above: Performed By: #### L IPID, CMP #### [facility] [address] [place] [address] Dr. Rosangela Smyth CBC AUTO DIFFon 09-23-2022 BASO # 0.0 103/ul Normal 0.0-0.1 [facility] Comment on above: Performed By: #### L ACT #### [facility] [address] [place] [address] Dr. Rosangela Smyth Basophils/100 WBC (Bld) 0.0 % Critically low 0.2-2.0 [facility] Comment on above: Performed By: #### L ACT #### [facility] [address] [place] [address] Dr. Rosangela Smyth EO # 0.1 103/ul Normal 0.0-0.7 [facility] Comment on above: Performed By: #### L ACT #### [facility] [address] [place] [address] Dr. Rosangela Smyth Eosinophils/100 WBC (Bld) 1.8 % Normal 0.9-7.0 [facility] Comment on above: Performed By: #### L ACT #### [facility] [address] [place] [address] Dr. Rosangela Smyth Erythrocyte distribution width (RBC) [Ratio] 15.6 % Critically high 11.0-15.0 [facility] Comment on above: Performed By: #### L ACT #### [facility] [address] [place] [address] Dr. Rosangela Smyth Hematocrit (Bld) [Volume fraction] 26.0 % Critically low 36.0-48.0 [facility] Comment on above: Performed By: #### L ACT #### [facility] [address] [place] [address] Dr. Rosangela Smyth Hemoglobin (Bld) [Mass/Vol] 8.5 g/dL Critically low 12.0-16.0 [facility] Comment on above: Performed By: #### L ACT #### [facility] [address] [place] [address] Dr. Rosangela Smyth IG # 0.02 10e3/ul Normal 0.00-0.03 [facility] Comment on above: Performed By: #### L ACT #### [facility] [address] [place] [address] Dr. Rosanegla Smyth IG % 0.5 % Normal 0.0-0.5 [facility] Comment on above: Performed By: #### L ACT #### [facility] [address] [place] [address] Dr. Rosangela Smyth LYMPH # 0.9 103/ul Critically low 1.2-3.8 [facility] Comment on above: Performed By: #### L ACT #### [facility] [address] [place] [address] Dr. Rosangela Smyth Lymphocytes/100 WBC (Bld) 24.0 % Normal 20.5-60.0 [facility] Comment on above: Performed By: #### L ACT #### [facility] [address] [place] [address] Dr. Rosangela Smyth MANUAL DIFF REQ NO Normal [facility] Comment on above: Performed By: #### L ACT #### [facility] [address] [place] [address] Dr. Rosangela Smyth MCH (RBC) [Entitic mass] 31.3 pg Normal 26.7-34.0 [facility] Comment on above: Performed By: #### L ACT #### [facility] [address] [address] [address] Rosangela Smyth MCHC (RBC) [Mass/Vol] 32.7 g/dL Normal 29.9-35.2 [facility] Comment on above: Performed By: #### L ACT #### [facility] [address] [address] [address] Rosangela Smyth MCV (RBC) [Entitic vol] 95.6 fL Normal 81.0-99.0 [facility] Comment on above: Performed By: #### L ACT #### [facility] [address] [address] [address] Rosangela Smyth MONO # 0.2 103/ul Critically low 0.3-0.8 [facility] Comment on above: Performed By: #### L ACT #### [facility] [address] [address] [address] Rosangela Smyth Monocytes/100 WBC (Bld) 4.0 % Normal 1.7-12.0 [facility] Comment on above: Performed By: #### L ACT #### [facility] [address] [address] [address] Rosangela Smyth NEUT # 2.6 103/ul Normal 1.4-6.5 [facility] Comment on above: Performed By: #### L ACT #### [facility] [address] [address] [address] Rosangela Smyth Neutrophils/100 WBC (Bld) 69.7 % Normal 43.0-75.[address] [facility] Comment on above: Performed By: #### L ACT #### [facility] [address] [address] [address] Rosangela Smyth Platelet mean volume (Bld) [Entitic vol] 9.1 fL Critically low 9.5-13.5 [facility] Comment on above: Performed By: #### L ACT #### [facility] [address] [address] [address] Rosangela Smyth PLT 244 103/ul Normal 150-[address] [facility] Comment on above: Performed By: #### L ACT #### [facility] [address] [address] [address] Rosangela Smyth RBC 2.72 106/ul Critically low 4.20-5.40 [facility] Comment on above: Performed By: #### L ACT #### [facility] [address] [address] [address] Rosangela Smyth WBC 3.8 103/ul Critically low 4.0-11.0 [facility] Comment on above: Performed By: #### L ACT #### [facility] [address] [address] [address] Rosangela Smyht BASO # 0.0 103/ul Normal 0.0-0.1 [facility] Comment on above: Performed By: #### L IPID, CMP #### [facility] [address] [place] [address] Dr. Rosangela Smyth Basophils/100 WBC (Bld) 0.3 % Normal 0.2-2.0 [facility] Comment on above: Performed By: #### L IPID, CMP #### [facility] [address] [address] [address] Rosangela Smyth EO # 0.0 103/ul Normal 0.0-0.7 [facility] Comment on above: Performed By: #### L IPID, CMP #### [facility] [address] [address] [address] Rosangela Smyth Eosinophils/100 WBC (Bld) 1.1 % Normal 0.9-7.0 [facility] Comment on above: Performed By: #### L IPID, CMP #### [facility] [address] [address] [address] Rosangela Smyth Erythrocyte distribution width (RBC) [Ratio] 15.5 % Critically high 11.0-15.0 [facility] Comment on above: Performed By: #### L IPID, CMP #### [facility] [address] [place] [address] Dr. Rosangela Smyth Hematocrit (Bld) [Volume fraction] 31.9 % Critically low 36.0-48.0 [facility] Comment on above: Performed By: #### L IPID, CMP #### [facility] [address] [place] [address] Dr. Rosangela Smyth Hemoglobin (Bld) [Mass/Vol] 10.4 g/dL Critically low 12.0-16.0 [facility] Comment on above: Performed By: #### L IPID, CMP #### [facility] [address] [place] [address] Dr. Rosangela Smyth IG # 0.03 10e3/ul Normal 0.00-0.03 [facility] Comment on above: Performed By: #### L IPID, CMP #### [facility] [address] [place] [address] Dr. Rosangela Smyth IG % 0.8 % Critically high 0.0-0.5 [facility] Comment on above: Performed By: #### L IPID, CMP #### [facility] [address] [place] [address] Dr. Rosangela Smyth LYMPH # 1.0 103/ul Critically low 1.2-3.8 [facility] Comment on above: Performed By: #### L IPID, CMP #### [facility] [address] [place] [address] Dr. Rosangela Smyth Lymphocytes/100 WBC (Bld) 26.4 % Normal 20.5-60.0 [facility] Comment on above: Performed By: #### L IPID, CMP #### [facility] [address] [place] [address] Dr. Rosangela Smyth MANUAL DIFF REQ NO Normal [facility] Comment on above: Performed By: #### L IPID, CMP #### [facility] [address] [place] [address] Dr. Rosangela Smyth MCH (RBC) [Entitic mass] 30.7 pg Normal 26.7-34.0 [facility] Comment on above: Performed By: #### L IPID, CMP #### [facility] [address] [place] [address] Dr. Rosangela Smyth MCHC (RBC) [Mass/Vol] 32.6 g/dL Normal 29.9-35.[address] [facility] Comment on above: Performed By: #### L IPID, CMP #### [facility] [address] [place] [address] Dr. Rosangela Smyth MCV (RBC) [Entitic vol] 94.1 fL Normal 81.0-99.[address] [facility] Comment on above: Performed By: #### L IPID, CMP #### [facility] [address] [place] [address] Dr. Rosangela Smyth MONO # 0.1 103/ul Critically low 0.3-0.8 [facility] Comment on above: Performed By: #### L IPID, CMP #### [facility] [address] [place] [address] Dr. Rosangela Smyth Monocytes/100 WBC (Bld) 3.2 % Normal 1.7-12.0 [facility] Comment on above: Performed By: #### L IPID, CMP #### [facility] [address] [place] [address] Dr. Rosangela Smyth NEUT # 2.5 103/ul Normal 1.4-6.5 [facility] Comment on above: Performed By: #### L IPID, CMP #### [facility] [address] [place] [address] Dr. Rosangela Smyth Neutrophils/100 WBC (Bld) 68.2 % Normal 43.0-75.[address] [facility] Comment on above: Performed By: #### L IPID, CMP #### [facility] [address] [place] [address] Dr. Rosangela Smyth Platelet mean volume (Bld) [Entitic vol] 8.8 fL Critically low 9.5-13.[address] [facility] Comment on above: Performed By: #### L IPID, CMP #### [facility] [address] [place] [address] Dr. Rosangela Smyth PLT 242 103/ul Normal 150-[address] [facility] Comment on above: Performed By: #### L IPID, CMP #### [facility] [address] [place] [address] [id number] [address] Rosangela Smyth RBC 3.39 106/ul Critically low 4.20-5.40 [facility] Comment on above: Performed By: #### L IPID, CMP #### [facility] [address] [place], [place] [address] Dr. Rosangela Smyth WBC 3.7 103/ul Critically low 4.0-11.0 [facility] Comment on above: Performed By: #### L IPID, CMP #### [facility] [address] [place], [place] [address] Dr. Rosangela Smyth CTA CHEST WO W CONon 023 CTA CHEST WO W CON EXAMINATION: CTA CHEST WO W CON HISTORY: SHORTNESS OF BREATH . Weakness, cough and dyspnea for 2 weeks. Diagnosed with bronchitis on September 12. COMPARISON: Chest x-ray, 09/22/2022. TECHNIQUE: CT angiography of the pulmonary arteries following the administration of 100 mL of Omnipaque 350 intravenous contrast. Coronal and sagittal MIP (maximum intensity projection) images were performed. Dose reduction techniques were achieved by using automated exposure control and/or adjustment of mA and/or kV according to patient size and/or use of iterative reconstruction technique. FINDINGS: There is excellent enhancement of the pulmonary arteries. No acute pulmonary embolism is seen. The brachiocephalic artery and left common carotid artery share a common origin off the aortic arch, consistent with a normal variant bovine arch. The thoracic aorta and arch vessels are otherwise unremarkable, with no dissection or aneurysm. Cardiac size is normal. There is no pericardial effusion. The thyroid gland appears normal. No thoracic adenopathy is seen. Patchy infiltrates are scattered throughout both lungs favoring multifocal pneumonia. No pleural effusion or pneumothorax is seen. The upper abdomen is unremarkable. The bony thorax appears intact. IMPRESSION: 1. Patchy infiltrates are scattered throughout both lungs favoring multifocal pneumonia. No other acute cardiopulmonary findings are seen. 2. No acute pulmonary embolism or aortic dissection. Electronically authenticated by: KWAN MADRID Date: 2022-09-23 01:[address] [facility] CULTURE BLOODon 09-23-2022 Microscopic examination of blood, culture Culture Observations: NO GROWTH AT 5 DAYS. Normal [facility] Comment on above: Performed By: #### L IPID, CMP #### [facility] [address] [place] [address] Dr. Rosangela Smyth Microscopic examination of blood, culture Culture Observations: NO GROWTH AT 5 DAYS. Normal [facility] Comment on above: Performed By: #### L IPID, CMP #### [facility] [address] [address] [address] Rosangela Smyth Covid-19 PCR ([facility])on 09-06 SARS-CoV-2 (COVID-19) RNA RICH+probe Ql (Unsp spec) Detected Abnormal NOT DETECTED [facility] Comment on above: Result Comment: This test is not yet approved or cleared by the [place] FDA. When there are no FDA-approved or cleared tests available, and other criteria are met, FDA can make tests available under an emergency access mechanism called an Emergency Use Authorization (EUA). The EUA for this test is supported by the [place] of Health and Human Service's declaration that circumstances exist to justify the emergency use of in vitro diagnostics for the detection and/or diagnosis of the virus that causes COVID-19. This EUA will remain in effect for the duration of the COVID-19 declaration justifying emergency of IVDs, unless it is terminated or revoked by the FDA (after which the test may no longer be used). Performed By: #### O BSCRN #### [facility] [address] [place] [address] Dr. Rosangela Smyth D-DIMERon 09-23-2022 D-DIMER 0.78 mg/L FEU Critically high <=0.59 [facility] Comment on above: Performed By: #### O BSCRN #### [facility] [address] [place] [address] Dr. Rosangela Smyth D-DIMER COMMENTS SEE BELOW Normal [facility] Comment on above: Result Comment: Incr eases in D-Dimer concentration observed with thromboembolic events can be variable due to localization, size, and age of the thrombus. Therefore, a thromboembolic event cannot be diagnosed with certainty on the basis of the reference range. D-Dimers may also be elevated for a variety of disorders including: advanced age, , coronary disease, cancer, liver disease, infection, inflammation, hematoma, DIC, trauma, post-surgery, diabetes, thrombolytic or anticoagulant therapy, stress, and generalized hospitalization. Performed By: #### O BSCRN #### [facility] [address] [address] [address] Rosangela EASLEY URINE PROFILEon 3 Bilirubin Ql (U) Negative Normal NEGATIVE [facility] Comment on above: Performed By: #### L IPID, CMP #### [facility] [address] [place] [address] Dr. Rosangela Smyth Clarity (U) CLEAR Normal CLEAR [facility] Comment on above: Performed By: #### L IPID, CMP #### [facility] [address] [place] [address] Dr. Rosangela Smyth Color (U) LT. YELLOW Normal YELLOW [facility] Comment on above: Performed By: #### L IPID, CMP #### [facility] [address] [place] [address] Dr. Rosangela ANAND A micrscopic examination will be performed if indicated. Normal [facility] Comment on above: Performed By: #### L IPID, CMP #### [facility] [address] [place] [address] Dr. Rosangela Smyth Glucose Ql (U) 250 mg/dl Abnormal NEGATIVE [facility] Comment on above: Performed By: #### L IPID, CMP #### [facility] [address] [place] [address] Dr. Rsoangela Smyth Hemoglobin Ql (U) Negative Normal NEGATIVE [facility] Comment on above: Performed By: #### L IPID, CMP #### [facility] [address] [place] [address] Dr. Rosangela Smyth Ketones Ql (U) Negative Normal NEGATIVE [facility] Comment on above: Performed By: #### L IPID, CMP #### [facility] [address] [place] [address] Dr. Rosangela Smyth LEUKOCYTES Negative Normal NEGATIVE [facility] Comment on above: Performed By: #### L IPID, CMP #### [facility] [address] [place] [address] Dr. Rosangela Smyth Nitrite Ql (U) Negative Normal NEGATIVE [facility] Comment on above: Performed By: #### L IPID, CMP #### [facility] [address] [place] [address] Dr. Rosangela Smyth pH (U) 6.0 [pH] Normal 5-[address] [facility] Comment on above: Performed By: #### L IPID, CMP #### [facility] [address] [place] [address] Dr. Rosangela Smyth SPEC GRAVITY 1.015 Normal 1.005-<=1.025 [facility] Comment on above: Performed By: #### L IPID, CMP #### [facility] [address] [place] [address] Dr. Rosangela Smyth UA PROTEIN TRACE Normal NEGATIVE/ TRACE [facility] Comment on above: Performed By: #### L IPID, CMP #### [facility] [address] [place] [address] Dr. Rosangela Smyth UR MICRO IND NOT INDICATED Normal [facility] Comment on above: Performed By: #### L IPID, CMP #### [facility] [address] [place] [address] Dr. Rosangela Smyth Urobilinogen Qn (U) 0.2 {Estevan'U}/dL Normal 0.2 - 1. 0 [facility] Comment on above: Performed By: #### L IPID, CMP #### [facility] [address] [place] [address] Dr. Rosangela Smyth INFLUENZA A AND B AGon 09-23 INFLUENZA A AG Negative Normal NEGATIVE SEE COMMENT [facility] Comment on above: Performed By: #### L IPID, CMP #### [facility] [address] [place] [address] Dr. Rosangela Smyth INFLUENZA B AG Negative Normal NEGATIVE SEE COMMENT [facility] Comment on above: Performed By: #### L IPID, CMP #### [facility] [address] [place] [address] Dr. Rosangela Smyth LACTATE/LACTIC ACIDon 2022 Lactate [Moles/Vol] 1.4 mmol/L Normal 0.4-1.9 [facility] Comment on above: Performed By: #### O BSCRN #### [facility] [address] [place] [address] Dr. Rosangela Smyth Lactate [Moles/Vol] 0.9 mmol/L Normal 0.4-1.9 [facility] [place] Comment on above: Performed By: #### C BC #### [facility] [address] [place] [address] Dr. Rosangela Smyth Lactate [Moles/Vol] 1.4 mmol/L Normal 0.4-1.9 [facility] Comment on above: Performed By: #### L ACT #### [facility] [address] [place] [address] Dr. Rosangela Smyth POINT OF CARE GLUCOSEon 09-06 Glucose [Mass/Vol] 421 mg/dL Critically high 74-106 [facility] Comment on above: Performed By: #### O BSCRN #### [facility] [address] [place] [address] Dr. Rosangela Smyth PROF 14(COMP METB)on 023 Albumin [Mass/Vol] 2.7 g/dL Critically low 3.4-5.0 [facility] Comment on above: Performed By: #### O BSCRN #### [facility] [address] [place] [address] Dr. Rosangela Smyth Albumin/Globulin [Mass ratio] 0.7 {ratio} Normal [facility] Comment on above: Performed By: #### O BSCRN #### [facility] [address] [place] [address] Dr. Rosangela Smyth ALP [Catalytic activity/Vol] 76 U/L Normal 46-116 [facility] Comment on above: Performed By: #### O BSCRN #### [facility] [address] [place] [address] Dr. Rosangela Smyth ALT [Catalytic activity/Vol] 19 U/L Normal 14-59 [facility] Comment on above: Performed By: #### O BSCRN #### [facility] [address] [address] [address] Rosangela Smyth Anion gap [Moles/Vol] 11.9 mmol/L Normal [facility] Comment on above: Performed By: #### O BSCRN #### [facility] [address] [address] [address] Rosangela Smyth AST [Catalytic activity/Vol] 20 U/L Normal 15-[address] [facility] Comment on above: Performed By: #### O BSCRN #### [facility] [address] [address] [address] Rosangela Smyth Bilirubin [Mass/Vol] 0.3 mg/dL Normal 0.2-1.0 [facility] Comment on above: Performed By: #### O BSCRN #### [facility] [address] [place] [address] Dr. Rosangela Smyth Calcium [Mass/Vol] 10.2 mg/dL Critically high 8.5-10.1 [facility] Comment on above: Performed By: #### O BSCRN #### [facility] [address] [place] [address] Dr. Rosangela Smyth Chloride [Moles/Vol] 103 mmol/L Normal 98-[address] [facility] Comment on above: Performed By: #### O BSCRN #### [facility] [address] [place] [address] Dr. Rosangela Smyth CO2 [Moles/Vol] 23.7 mmol/L Normal 21.0-32.0 [facility] Comment on above: Performed By: #### O BSCRN #### [facility] [address] [place] [address] Dr. Rosangela Smyth Creatinine [Mass/Vol] 0.90 mg/dL Normal 0.55-1.[address] [facility] Comment on above: Performed By: #### O BSCRN #### [facility] [address] [place] [address] Dr. Rosangela Smyth EGFR-AF TUNISIAN >60 Normal >=60 [facility] Comment on above: Performed By: #### O BSCRN #### [facility] [address] [address] [address] Rosangela Smyth EGFR-NON AF TUNISIAN >60 Normal >=60 [facility] Comment on above: Performed By: #### O BSCRN #### [facility] [address] [address] [address] Rosangela Smyth Globulin (S) [Mass/Vol] 3.9 g/dL Normal [facility] Comment on above: Performed By: #### O BSCRN #### [facility] [address] [address] [address] Rosangela Smyth Glucose [Mass/Vol] 237 mg/dL Critically high 74-106 [facility] Comment on above: Performed By: #### O BSCRN #### [facility] [address] [place] [address] Dr. Rosangela Smyth Potassium [Moles/Vol] 3.6 mmol/L Normal 3.5-5.1 [facility] Comment on above: Performed By: #### O BSCRN #### [facility] [address] [place] [address] Dr. Rosangela Smyth Protein [Mass/Vol] 6.6 g/dL Normal 6.4-8.2 [facility] Comment on above: Performed By: #### O BSCRN #### [facility] [address] [place] [address] Dr. Rosangela Smyth Sodium [Moles/Vol] 135 mmol/L Critically low 136-145 [facility] Comment on above: Performed By: #### O BSCRN #### [facility] [address] [place] [address] Dr. Rosangela Smyth Urea nitrogen [Mass/Vol] 11.0 mg/dL Normal 7.0-18.0 [facility] Comment on above: Performed By: #### O BSCRN #### [facility] [address] [place] [address] Dr. Rosangela Smyth Urea nitrogen/Creatinine [Mass ratio] 12.2 mg/mg Normal [facility] Comment on above: Performed By: #### O BSCRN #### [facility] [address] [address] [address] Rosangela Smyth PROF CHEM 8 (BAS METB)on Anion gap [Moles/Vol] 10.7 mmol/L Normal [facility] Comment on above: Performed By: #### L IPID, CMP #### [facility] [address] [address] [address] Rosangela Smyth Calcium [Mass/Vol] 10.3 mg/dL Critically high 8.5-10.1 [facility] Comment on above: Performed By: #### L IPID, CMP #### [facility] [address] [address] [address] Rosangela Smyth Chloride [Moles/Vol] 97 mmol/L Critically low 98-107 [facility] Comment on above: Performed By: #### L IPID, CMP #### [facility] [address] [place] [address] Dr. Rosangela Smyth CO2 [Moles/Vol] 26.1 mmol/L Normal 21.0-32.0 [facility] Comment on above: Performed By: #### L IPID, CMP #### [facility] [address] [address] [address] Rosangela Smyth Creatinine [Mass/Vol] 1.05 mg/dL Critically high 0.55-1.02 [facility] Comment on above: Performed By: #### L IPID, CMP #### [facility] [address] [place] [address] Dr. Rosangela Smyth EGFR-AF TUNISIAN >60 Normal >=60 [facility] Comment on above: Performed By: #### L IPID, CMP #### [facility] [address] [place] [address] Dr. Rosangela Smyth EGFR-NON AF TUNISIAN 54 mL/min/1.73m2 Critically low >=60 [facility] Comment on above: Performed By: #### L IPID, CMP #### [facility] [address] [place] [address] Dr. Rosangela Smyth Glucose [Mass/Vol] 255 mg/dL Critically high 74-106 [facility] Comment on above: Performed By: #### L IPID, CMP #### [facility] [address] [address] [address] Rosangela Smyth Potassium [Moles/Vol] 3.8 mmol/L Normal 3.5-5.1 [facility] Comment on above: Performed By: #### L IPID, CMP #### [facility] [address] [address] [address] Rosangela Smyth Sodium [Moles/Vol] 130 mmol/L Critically low 136-145 [facility] Comment on above: Performed By: #### L IPID, CMP #### [facility] [address] [address] [address] Rosangela Smyth Urea nitrogen [Mass/Vol] 18.0 mg/dL Normal 7.0-18.0 [facility] Comment on above: Performed By: #### L IPID, CMP #### [facility] [address] [address] [address] Rosangela Smyth Urea nitrogen/Creatinine [Mass ratio] 17.1 mg/mg Normal [facility] Comment on above: Performed By: #### L IPID, CMP #### [facility] [address] [address] [address] Rosangela Smyth XR CHEST 1 Von 09-23-2022 XR CHEST 1 V EXAMINATION: XR CHEST 1 V HISTORY: SHORTNESS OF BREATH COMPARISON: 09/22/2022 TECHNIQUE: AP portable FINDINGS: LUNGS: Low lung volumes. Moderate bilateral mid to lower lung zone parenchymal infiltrates significantly increased from yesterday's exam VASCULATURE: No increased pulmonary vasculature. PLEURA: No pneumothorax, effusion, or pleural thickening. CARDIAC: No cardiomegaly or cardiac silhouette abnormality. MEDIASTINUM: No visible mass or adenopathy. BONES: No fracture or visible bone lesion. OTHER: Negative. IMPRESSION: Progression of bilateral multifocal pneumonia Electronically authenticated by: JUSTINA CURRAN Date: 2022-09-23 16:33 Normal [facility] XR CHEST 1 V XR CHEST 1 V 09/22/2022 10:30 PM EST CLINICAL INDICATION: Cough COMPARISON: 09/12/2022 TECHNIQUE: Portable semiupright AP view of the chest. FINDINGS: There are no tubes or implants noted. Cardiomediastinal silhouette is within normal limits. No pulmonary interstitial edema. Mildly confluent and patchy airspace disease in both lungs in the mid to lower lung zones. No pneumothorax or gross pleural effusion. Soft tissues and bones are grossly unremarkable. IMPRESSION: Bilateral confluent and patchy airspace disease concerning for focal pneumonia. Electronically authenticated by: RAUL MARVIN Date: 2022-09-23 00:[address] [facility] CARDIAC CRYSTAL ADMITon 023 CK [Catalytic activity/Vol] 44 U/L Normal 26-[address] [facility] Comment on above: Performed By: #### C NERIS, CMADM #### [facility] [address] [place] [address] Dr. Rosangela Smyth CK.MB [Mass/Vol] ng/mL Normal <=3.60 [facility] Comment on above: Performed By: #### C NERIS, YULIANADM #### [facility] [address] [place] [address] Dr. Rosangela Smyth HSTROP 6.3 pg/mL Normal 4.0-51.[address] [facility] Comment on above: Result Comment: CUT- OFF POINTS HAVE BEEN ESTABLISHED BASED ON THE FOURTH UNIVERSAL DEFINITIONS OF MYOCARDIAL INFARCTION. THE UPPER REFERENCE LIMIT (URL) OF TROPONIN, DEFINED THE 99TH PERCENTILE OF cTnI DISTRIBUTION IN A REFERENCE POPULATION, HAS BEEN CONFIRMED THE DECISION THRESHOLD FOR MO DIAGNOSIS. Performed By: #### C NERIS, YULIANADM #### [facility] [address] [place] [address] Dr. Rosangela Smyth JOVAN 39 ng/mL Normal 9-[address] [facility] Comment on above: Performed By: #### C NERIS, CMADM #### [facility] [address] [place] [address] Dr. Rosangela Smyth CBC AUTO DIFFon 09-12-2022 BASO # 0.0 103/ul Normal 0.0-0.[address] [facility] Comment on above: Performed By: #### L ACT #### [facility] [address] [place] [address] Dr. Rosangela Smyth Basophils/100 WBC (Bld) 0.3 % Normal 0.2-2.[address] [facility] Comment on above: Performed By: #### L ACT #### [facility] [address] [place] [address] Dr. Rosangela Smyth EO # 0.1 103/ul Normal 0.0-0.7 [facility] Comment on above: Performed By: #### L ACT #### [facility] [address] [place] [address] Dr. Rosangela Smyth Eosinophils/100 WBC (Bld) 1.4 % Normal 0.9-7.0 [facility] Comment on above: Performed By: #### L ACT #### [facility] [address] [place] [address] Dr. Rosangela Smyth Erythrocyte distribution width (RBC) [Ratio] 16.1 % Critically high 11.0-15.0 [facility] Comment on above: Performed By: #### L ACT #### [facility] [address] [place] [address] Dr. Rosangela Smyth Hematocrit (Bld) [Volume fraction] 27.6 % Critically low 36.0-48.0 [facility] Comment on above: Performed By: #### L ACT #### [facility] [address] [place] [address] Dr. Rosangela Smyth Hemoglobin (Bld) [Mass/Vol] 9.2 g/dL Critically low 12.0-16.0 [facility] Comment on above: Performed By: #### L ACT #### [facility] [address] [place] [address] Dr. Rosangela Smyth IG # 0.01 10e3/ul Normal 0.00-0.03 [facility] Comment on above: Performed By: #### L ACT #### [facility] [address] [place] [address] Dr. Rosangela Smyth IG % 0.3 % Normal 0.0-0.5 [facility] Comment on above: Performed By: #### L ACT #### [facility] [address] [place] [address] Dr. Rosangela Smyth LYMPH # 0.6 103/ul Critically low 1.2-3.8 [facility] Comment on above: Performed By: #### L ACT #### [facility] [address] [place] [address] Dr. Rosangela Smyth Lymphocytes/100 WBC (Bld) 17.1 % Critically low 20.5-60.0 [facility] Comment on above: Performed By: #### L ACT #### [facility] [address] [place] [address] Dr. Rosangela Smyth MANUAL DIFF REQ NO Normal [facility] Comment on above: Performed By: #### L ACT #### [facility] [address] [place] [address] Dr. Rosangela Smyth MCH (RBC) [Entitic mass] 30.6 pg Normal 26.7-34.0 [facility] Comment on above: Performed By: #### L ACT #### [facility] [address] [place] [address] Dr. Rosangela Smyth MCHC (RBC) [Mass/Vol] 33.3 g/dL Normal 29.9-35.[address] [facility] Comment on above: Performed By: #### L ACT #### [facility] [address] [place] [address] Dr. Rosangela Smyth MCV (RBC) [Entitic vol] 91.7 fL Normal 81.0-99.0 [facility] Comment on above: Performed By: #### L ACT #### [facility] [address] [place] [address] Dr. Rosangela Smyth MONO # 0.4 103/ul Normal 0.3-0.[address] [facility] Comment on above: Performed By: #### L ACT #### [facility] [address] [place] [address] Dr. Rosangela Smyth Monocytes/100 WBC (Bld) 10.0 % Normal 1.7-12.[address] [facility] Comment on above: Performed By: #### L ACT #### [facility] [address] [place] [address] Dr. Rosangela Smyth NEUT # 2.6 103/ul Normal 1.4-6.[address] [facility] Comment on above: Performed By: #### L ACT #### [facility] [address] [address] [address] Rosangela Smyth Neutrophils/100 WBC (Bld) 70.9 % Normal 43.0-75.0 [facility] Comment on above: Performed By: #### L ACT #### [facility] [address] [address] [address] Rosangela Smyth Platelet mean volume (Bld) [Entitic vol] 8.2 fL Critically low 9.5-13.5 [facility] Comment on above: Performed By: #### L ACT #### [facility] [address] [address] [address] Rosangela Smyth PLT 277 103/ul Normal 150-450 [facility] Comment on above: Performed By: #### L ACT #### [facility] [address] [place] [address] Dr. Rosangela Smyth RBC 3.01 106/ul Critically low 4.20-5.40 [facility] Comment on above: Performed By: #### L ACT #### [facility] [address] [address] [address] Rosangela Smyth WBC 3.7 103/ul Critically low 4.0-11.0 [facility] Comment on above: Performed By: #### L ACT #### [facility]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] PTSD (post-traumatic stress disorder) [F43.10] Impingement syndrome, shoulder, left [M75.42] 02/21/2015 Cervical radiculopathy at C6 [M54.12] 02/21/2015 Chronic bilateral low back pain with right-side* 6 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 Allergies As of Date: 06/04/2022 Noted Allergy Reaction PERCOCET (OXYCODONE-ACETAMINO PHEN)02/21/2015 8 - GI Upset STADOL (BUTORPHANOL TARTRATE) 10/26/2013 11 - Vomiting Comments: incoherent Date Reviewed: 05/22/2022 Reviewed by: Karel Sam MD - Fully Assessed Reason for Visit: Benefits Investigation [1835] Prescriptions as of 06/04/2022 - zolpidem (AMBIEN) 5 mg tablet TAKE ONE TABLET BY MOUTH DAILY AT BEDTIME NEEDED FOR SLEEP - lithium carbonate (ESKALITH) 300 mg capsule TAKE ONE TABLET BY MOUTH IN THE MORNING AND TWO TABLETS BY MOUTH IN THE EVENING - levothyroxine (SYNTHROID) 100 mcg tablet Take 100 mcg by mouth once daily. - azithromycin (ZITHROMAX) 250 mg tablet Take by mouth as directed. TAKE 2 TABLETS BY MOUTH TODAY, THEN TAKE 1 TABLET DAILY FOR 4 DAYS - busPIRone (BUSPAR) 15 mg tablet Take 15 mg by mouth twice daily. - glipiZIDE (GLUCOTROL XL) 10mg 24 hr tablet Take 10 mg by mouth once daily. - lactulose (DUPHALAC, CONSTULOSE) 10 gram/15 mL solution TAKE 60 ML TWICE DAILY - loratadine (CLARITIN) 10 mg tablet Take 10 mg by mouth once daily. - losartan (COZAAR) 100 mg tablet Take 100 mg by mouth once daily. - montelukast (SINGULAIR) 10 mg tablet Take 10 mg by mouth once daily. - omeprazole (PRILOSEC) 20 mg capsule - promethazine (PHENERGAN) 25 mg tablet Take 25 mg by mouth every 6 hours as needed. - metFORMIN (GLUCOPHAGE) 1,000 mg tablet Take 1,000 mg by mouth twice daily. - budesonide/formotero l fumarate (SYMBICORT INHALATION) Inhale as instructed. - levomilnacipran ER (FETZIMA ER) 40 mg capsule Take by mouth once daily. - cloNIDine HCl (CATAPRES) 0.1 mg tablet Take 0.1 mg by mouth twice daily. - METOCLOPRAMIDE HCL 10 mg tablet as needed. - ALPRAZOLAM 2 mg tablet Take 2 mg by mouth three times daily as needed. 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 05-29-2022 [place] Telephone ([facility]) KAYA SCHILLING ([id number]) 1965 F Date Time Provider Department 05/29/22 JACKIE SILVERIO During your visit today, we recorded the following information about you: FLORECITA Francis 05/29/2022 12:17 PM Signed Patient is listed on the First Time Treatment List for a non-oncology treatment. No psychosocial assessment is indicated. MYRIAM Francis-Kaur Allergies As of Date: 05/29/2022 Noted Allergy Reaction PERCOCET (OXYCODONE-ACETAMINO PHEN)02/21/2015 8 - GI Upset STADOL (BUTORPHANOL TARTRATE) 10/26/2013 11 - Vomiting Comments: incoherent Date Reviewed: 05/22/2022 Reviewed by: Karel Sam MD - Fully Assessed Reason for Visit: Social Work Services [507] Prescriptions as of 05/29/2022 - zolpidem (AMBIEN) 5 mg tablet TAKE ONE TABLET BY MOUTH DAILY AT BEDTIME NEEDED FOR SLEEP - lithium carbonate (ESKALITH) 300 mg capsule TAKE ONE TABLET BY MOUTH IN THE MORNING AND TWO TABLETS BY MOUTH IN THE EVENING - levothyroxine (SYNTHROID) 100 mcg tablet Take 100 mcg by mouth once daily. - azithromycin (ZITHROMAX) 250 mg tablet Take by mouth as directed. TAKE 2 TABLETS BY MOUTH TODAY, THEN TAKE 1 TABLET DAILY FOR 4 DAYS - busPIRone (BUSPAR) 15 mg tablet Take 15 mg by mouth twice daily. - glipiZIDE (GLUCOTROL XL) 10mg 24 hr tablet Take 10 mg by mouth once daily. - lactulose (DUPHALAC, CONSTULOSE) 10 gram/15 mL solution TAKE 60 ML TWICE DAILY - loratadine (CLARITIN) 10 mg tablet Take 10 mg by mouth once daily. - losartan (COZAAR) 100 mg tablet Take 100 mg by mouth once daily. - montelukast (SINGULAIR) 10 mg tablet Take 10 mg by mouth once daily. - omeprazole (PRILOSEC) 20 mg capsule - promethazine (PHENERGAN) 25 mg tablet Take 25 mg by mouth every 6 hours as needed. - metFORMIN (GLUCOPHAGE) 1,000 mg tablet Take 1,000 mg by mouth twice daily. - budesonide/formotero l fumarate (SYMBICORT INHALATION) Inhale as instructed. - levomilnacipran ER (FETZIMA ER) 40 mg capsule Take by mouth once daily. - cloNIDine HCl (CATAPRES) 0.1 mg tablet Take 0.1 mg by mouth twice daily. - METOCLOPRAMIDE HCL 10 mg tablet as needed. - ALPRAZOLAM 2 mg tablet Take 2 mg by mouth three times daily as needed. 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] PTSD (post-traumatic stress disorder) [F43.10] Impingement syndrome, shoulder, left [M75.42] 02/21/2015 Cervical radiculopathy at C6 [M54.12] 02/21/2015 Chronic bilateral low back pain with right-side* 6 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 Please add lab orders. Thanks. Amirah Koch MA Allergies As of Date: 05/26/2022 Noted Allergy Reaction PERCOCET (OXYCODONE-ACETAMINO PHEN)02/21/2015 8 - GI Upset STADOL (BUTORPHANOL TARTRATE) 10/26/2013 11 - Vomiting Comments: incoherent Date Reviewed: 05/22/2022 Reviewed by: Karel Sam MD - Fully Assessed Reason for Visit: Lab Orders [1688] Primary Visit Diagnosis:Anemia, normocytic normochromic [D64.9] Order(s):COMP METABOLIC PANEL [SQCMP] Order #: [id number] FUTURE IRON + TIBC [SQIRON] Order #: [id number] FUTURE CBC + DIFF [SQCBCDIF] Order #: [id number] FUTURE FERRITIN BLD [SQFERR] Order #: [id number] FUTURE Prescriptions as of 06/04/2022 - zolpidem (AMBIEN) 5 mg tablet TAKE ONE TABLET BY MOUTH DAILY AT BEDTIME NEEDED FOR SLEEP - lithium carbonate (ESKALITH) 300 mg capsule TAKE ONE TABLET BY MOUTH IN THE MORNING AND TWO TABLETS BY MOUTH IN THE EVENING - levothyroxine (SYNTHROID) 100 mcg tablet Take 100 mcg by mouth once daily. - azithromycin (ZITHROMAX) 250 mg tablet Take by mouth as directed. TAKE 2 TABLETS BY MOUTH TODAY, THEN TAKE 1 TABLET DAILY FOR 4 DAYS - busPIRone (BUSPAR) 15 mg tablet Take 15 mg by mouth twice daily. - glipiZIDE (GLUCOTROL XL) 10mg 24 hr tablet Take 10 mg by mouth once daily. - lactulose (DUPHALAC, CONSTULOSE) 10 gram/15 mL solution TAKE 60 ML TWICE DAILY - loratadine (CLARITIN) 10 mg tablet Take 10 mg by mouth once daily. - losartan (COZAAR) 100 mg tablet Take 100 mg by mouth once daily. - montelukast (SINGULAIR) 10 mg tablet Take 10 mg by mouth once daily. - omeprazole (PRILOSEC) 20 mg capsule - promethazine (PHENERGAN) 25 mg tablet Take 25 mg by mouth every 6 hours as needed. - metFORMIN (GLUCOPHAGE) 1,000 mg tablet Take 1,000 mg by mouth twice daily. - budesonide/formotero l fumarate (SYMBICORT INHALATION) Inhale as instructed. - levomilnacipran ER (FETZIMA ER) 40 mg capsule Take by mouth once daily. - cloNIDine HCl (CATAPRES) 0.1 mg tablet Take 0.1 mg by mouth twice daily. - METOCLOPRAMIDE HCL 10 mg tablet as needed. - ALPRAZOLAM 2 mg tablet Take 2 mg by mouth three times daily as needed. 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 05-25-2022 [place]PILLON Telephone (HEMJUSTINA) KAYA SCHILLING ([id number]) 1965 F Date Time Provider Department 05/25/22 YVONNE ECHAVARRIA During your visit today, we recorded the following information about you: Yvonne Echavarria RN 05/25/2022 8:55 AM Signed ----- Message from Sharron Keenan RN sent at 05/25/2022 8:33 AM EDT ----- ----- Message ----- From: Karel Sam MD Sent: 05/23/2022 4:49 PM EDT To: Sharron Keenan RN Please let patient know that she has both B12 and Iron def and will need to have all replaced. Would recommend IV and IM B12 replacement if she is in agreement. She also will need an upper and lower endoscopy to further evaluate as well,. Yvonne Echavarria RN 05/25/2022 8:57 AM Signed LM to CB BORA Esteban RN 05/25/2022 1:48 PM Signed Spoke with patient. She verbalized understanding and was familiar with both medications as she has had both previously. She was scheduled for this 05/28/22, however she would not be able to get her treatment that day d/t insurance. Patient and nurse discussed pushing appointment out a week so that she can follow up and get IV infusion. Patient verbalized understanding. TERRELL: Please place orders for IV iron and B12 IM PSS: Please schedule patient for the following and then call patient with new appointment. On provider and treatment schedule. BORA Esteban MD 05/25/2022 1:59 PM Signed Order placed and she also needs to see GI Sharron Dominguez Sec 05/25/2022 2:10 PM Signed Theresa please send to GI facesheet in your box Reji Jane [facility] 05/25/2022 2:18 PM Signed Appointments moved to next (06/04). Called pt, no answer, LMOV. Yvonne Rivera [facility] 05/25/2022 3:12 PM Signed Records faxed to [facility] Gastro. Hanna Perdomo [facility] 05/28/2022 2:29 PM Signed Called [facility] Saad spoke with Luisa. She states they have received this referral and their client service coordinator will be calling patient soon to schedule. Hanna Perdomo Pss Hanna Perdomo Pss 06/03/2022 2:11 PM Signed Called Amada Nash spoke with Luisa. She states their office is in process of calling patient to schedule. Hanna Perdomo [facility] Hanna Perdomo [facility] 06/08/2022 2:39 PM Signed Called Amada Nash spoke with Luisa. She states they have called and left patient message to call their office back to get scheduled. They are waiting for patient to call them back. Hanna Perdomo [facility] Hanna Perdomo [facility] 06/15/2022 2:39 PM Signed Called Amada Nash spoke with Luisa. She states when patient called their office back, patient stated she did not want to schedule any appointments with their office at this time. Patient told their office she was going to call our office to let TERRELL know her decision on not wanting to schedule appointment at this time. 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 - azithromycin (ZITHROMAX) 250 mg tablet Take by mouth as directed. TAKE 2 TABLETS BY MOUTH TODAY, THEN TAKE 1 TABLET DAILY FOR 4 DAYS - busPIRone (BUSPAR) 15 mg tablet Take 15 mg by mouth twice daily. - glipiZIDE (GLUCOTROL XL) 10mg 24 hr tablet Take 10 mg by mouth once daily. - lactulose (DUPHALAC, CONSTULOSE) 10 gram/15 mL solution TAKE 60 ML TWICE DAILY - loratadine (CLARITIN) 10 mg tablet Take 10 mg by mouth once daily. - losartan (COZAAR) 100 mg tablet Take 100 mg by mouth once daily. - montelukast (SINGULAIR) 10 mg tablet Take 10 mg by mouth once daily. - omeprazole (PRILOSEC) 20 mg capsule - promethazine (PHENERGAN) 25 mg tablet Take 25 mg by mouth every 6 hours as needed. - metFORMIN (GLUCOPHAGE) 1,000 mg tablet Take 1,000 mg by mouth twice daily. - budesonide/formotero l fumarate (SYMBICORT INHALATION) Inhale as instructed. - levomilnacipran ER (FETZIMA ER) 40 mg capsule Take by mouth once daily. - cloNIDine HCl (CATAPRES) 0.1 mg tablet Take 0.1 mg by mouth twice daily. - METOCLOPRAMIDE HCL 10 mg tablet as needed. - ALPRAZOLAM 2 mg tablet Take 2 mg by mouth three times daily as needed. Indications: Anxiety Problem List As Of Date 05/25/2022 Noted Resolved Anemi (more content not included)... Normal [facility] CBC W Auto Differential pane l (Bld)on 05-22-2022 Basophils (Bld) [#/Vol] 0.03 10*3/uL Normal <0.11 [facility] Comment on above: Order Comment: Speci men Type: BLOOD SPECIMEN Ordering Facility: [facility] Address: [address] [place] [address] Performed By: #### S ERIMM #### [facility] CLIA [id number] [address] [place] [address] [place] Basophils/100 WBC (Bld) 0.5 % Normal [facility] Comment on above: Order Comment: Speci men Type: BLOOD SPECIMEN Ordering Facility: [facility] Address: [address] [place] [address] Performed By: #### S ERIMM #### [facility] CLIA [id number] [address] [place] [address] [place] Differential cell count method Nom (Bld) Auto Normal [facility] Comment on above: Order Comment: Speci men Type: BLOOD SPECIMEN Ordering Facility: [facility] Address: [address] [place] [address] Performed By: #### S ERIMM #### [facility] CLIA [id number] [address] [place] [address] [place] Eosinophils (Bld) [#/Vol] 0.26 10*3/uL Normal <0.46 [facility] Comment on above: Order Comment: Speci men Type: BLOOD SPECIMEN Ordering Facility: [facility] Address: [address] [place] [address] Performed By: #### S ERIMM #### [facility] CLIA [id number] [address] [place] [address] [place] Eosinophils/100 WBC (Bld) 4.5 % Normal [facility] Comment on above: Order Comment: Speci men Type: BLOOD SPECIMEN Ordering Facility: [facility] Address: [address] [place], [place] [id number] Performed By: #### S ERIMM #### [facility] CLIA [id number] [address] [place] [address] [place] Erythrocyte distribution width (RBC) [Ratio] 18.1 % High 11.5-15.0 [facility] Comment on above: Order Comment: Speci men Type: BLOOD SPECIMEN Ordering Facility: [facility] Address: [address] [place], [place] [id number] Performed By: #### S ERIMM #### [facility] CLIA [id number] [address] [place] [address] [place] Hematocrit (Bld) [Volume fraction] 30.1 % Low 36.0-46.0 [facility] Comment on above: Order Comment: Speci men Type: BLOOD SPECIMEN Ordering Facility: [facility] Address: [address] [place], [place] [id number] Performed By: #### S ERIMM #### [facility] CLIA [id number] [address] [place] [address] [place] Hemoglobin (Bld) [Mass/Vol] 9.3 g/dL Low 11.5-15.5 [facility] Comment on above: Order Comment: Speci men Type: BLOOD SPECIMEN Ordering Facility: [facility] Address: [address] [place] [address] Performed By: #### S ERIMM #### [facility] CLIA [id number] [address] [place] [address] [place] IMMATURE GRAN % 0.2 % Normal [facility] Comment on above: Order Comment: Speci men Type: BLOOD SPECIMEN Ordering Facility: [facility] Address: [address] [place] [address] Performed By: #### S ERIMM #### [facility] CLIA [id number] [address] [place] [address] [place] IMMATURE GRAN ABS <0.03 Normal <0.10 [facility] Comment on above: Order Comment: Speci men Type: BLOOD SPECIMEN Ordering Facility: [facility] Address: [address] [place] [address] Performed By: #### S ERIMM #### [facility] CLIA [id number] [address] [place] [address] [place] Lymphocytes (Bld) [#/Vol] 1.40 10*3/uL Normal 1.00-4.00 [facility] Comment on above: Order Comment: Speci men Type: BLOOD SPECIMEN Ordering Facility: [facility] Address: [address] [place] [address] Performed By: #### S ERIMM #### [facility] CLIA [id number] [address] [place] [address] [place] Lymphocytes/100 WBC (Bld) 24.1 % Normal [facility] Comment on above: Order Comment: Speci men Type: BLOOD SPECIMEN Ordering Facility: [facility] Address: [address] [place], [place] [id number] Performed By: #### S ERIMM #### [facility] CLIA [id number] [address] [place] [address] MCH (RBC) [Entitic mass] 29.5 pg Normal 26.0-34.0 [facility] Comment on above: Order Comment: Speci men Type: BLOOD SPECIMEN Ordering Facility: [facility] Address: [address] [place], [place] [id number] Performed By: #### S ERIMM #### [facility] [place] [id number] [address] [place] [address] [place] MCHC (RBC) [Mass/Vol] 30.9 g/dL Normal 30.5-36.0 [facility] Comment on above: Order Comment: Speci men Type: BLOOD SPECIMEN Ordering Facility: [facility] Address: [address] [place], [place] [id number] Performed By: #### S ERIMM #### [facility] [place] [id number] [address] [place] [address] [place] MCV (RBC) [Entitic vol] 95.6 fL Normal 80.0-100.0 [facility] Comment on above: Order Comment: Speci men Type: BLOOD SPECIMEN Ordering Facility: [facility] Address: [address] [place], [place] [id number] Performed By: #### S ERIMM #### [facility] CLIA [id number] [address] [place] [address] [place] Monocytes (Bld) [#/Vol] 0.36 10*3/uL Normal <0.87 [facility] Comment on above: Order Comment: Speci men Type: BLOOD SPECIMEN Ordering Facility: [facility] Address: [address] [place], [place] [id number] Performed By: #### S ERIMM #### [facility] CLIA [id number] [address] [place] [address] [place] Monocytes/100 WBC (Bld) 6.2 % Normal [facility] Comment on above: Order Comment: Speci men Type: BLOOD SPECIMEN Ordering Facility: [facility] Address: [address] [place] [address] Performed By: #### S ERIMM #### [facility] CLIA [id number] [address] [place] [address] [place] Neutrophils (Bld) [#/Vol] 3.76 10*3/uL Normal 1.45-7.50 [facility] Comment on above: Order Comment: Speci men Type: BLOOD SPECIMEN Ordering Facility: [facility] Address: [address] [place] [address] Performed By: #### S ERIMM #### [facility] CLIA [id number] [address] [place] [address] [place] Neutrophils/100 WBC (Bld) 64.5 % Normal [facility] Comment on above: Order Comment: Speci men Type: BLOOD SPECIMEN Ordering Facility: [facility] Address: [address] [place], [place] [id number] Performed By: #### S ERIMM #### [facility] CLIA [id number] [address] [place] [address] [place] Nucleated RBC (Bld) [#/Vol] 10*3/uL Normal <0.01 [facility] Comment on above: Order Comment: Speci men Type: BLOOD SPECIMEN Ordering Facility: [facility] Address: [address] [place], [place] [id number] Performed By: #### S ERIMM #### [facility] CLIA [id number] [address] [place] [address] [place] Nucleated RBC/100 WBC (Bld) [Ratio] 0.0 /100 WBC Normal [facility] Comment on above: Order Comment: Speci men Type: BLOOD SPECIMEN Ordering Facility: [facility] Address: [address] [place], [place] [id number] Performed By: #### S ERIMM #### [facility] CLIA [id number] [address] [place] [address] [place] Platelet mean volume (Bld) [Entitic vol] 8.6 fL Low 9.0-12.7 [facility] Comment on above: Order Comment: Speci men Type: BLOOD SPECIMEN Ordering Facility: [facility] Address: [address] [place], [place] [id number] Performed By: #### S ERIMM #### [facility] CLIA [id number] [address] [place] [address] [place] Platelets (Bld) [#/Vol] 335 10*3/uL Normal 150-400 [facility] Comment on above: Order Comment: Speci men Type: BLOOD SPECIMEN Ordering Facility: [facility] Address: [address] [place], [place] [id number] Performed By: #### S ERIMM #### [facility] CLIA [id number] [address] [place] [address] [place] RBC (Bld) [#/Vol] 3.15 10*6/uL Low 3.90-5.20 [facility] Comment on above: Order Comment: Speci men Type: BLOOD SPECIMEN Ordering Facility: [facility] Address: [address] [place], [place] [id number] Performed By: #### S ERIMM #### [facility] CLIA [id number] [address] [place] [address] [place] WBC (Bld) [#/Vol] 5.82 10*3/uL Normal 3.70-11.00 [facility] Comment on above: Order Comment: Speci men Type: BLOOD SPECIMEN Ordering Facility: [facility] Address: [address] [place], [place] [address] Performed By: #### S ERV[facility] #### [facility] CLIA [id number] [address] [place] [address] [place] Abs Immature Gran <0.10 k/uL [facility] Basophils (Bld) [#/Vol] 0.03 10*3/uL <0.11 k/uL [facility] Basophils/100 WBC (Bld) 0.5 % [facility] Differential cell count method Nom (Bld) Auto [facility] Eosinophils (Bld) [#/Vol] 0.26 10*3/uL <0.46 k/uL [facility] Eosinophils/100 WBC (Bld) 4.5 % [facility] Erythrocyte distribution width (RBC) [Ratio] 18.1 % High 11.5 - 15.0 % [facility] Hematocrit (Bld) [Volume fraction] 30.1 % Low 36.0 - 46.0 % [facility] Hemoglobin (Bld) [Mass/Vol] 9.3 g/dL Low 11.5 - 15.5 g/dL [facility] Immature Gran % 0.2 % [facility] Lymphocytes (Bld) [#/Vol] 1.40 10*3/uL 1.00 - 4.00 k/uL [facility] Lymphocytes/100 WBC (Bld) 24.1 % [facility] MCH (RBC) [Entitic mass] 29.5 pg 26.0 - 34.0 pg [facility] MCHC (RBC) [Mass/Vol] 30.9 g/dL 30.5 - 36.0 g/dL [facility] MCV (RBC) [Entitic vol] 95.6 fL 80.0 - 100.0 fL [facility] Monocytes (Bld) [#/Vol] 0.36 10*3/uL <0.87 k/uL [facility] Monocytes/100 WBC (Bld) 6.2 % [facility] Neutrophils (Bld) [#/Vol] 3.76 10*3/uL 1.45 - 7.50 k/uL [facility] Neutrophils/100 WBC (Bld) 64.5 % [facility] Nucleated RBC (Bld) [#/Vol] <0.01 k/uL [facility] Nucleated RBC/100 WBC (Bld) [Ratio] 0.0 /100 WBC [facility] Platelet mean volume (Bld) [Entitic vol] 8.6 fL Low 9.0 - 12.7 fL [facility] Platelets (Bld) [#/Vol] 335 10*3/uL 150 - 400 k/uL [facility] RBC (Bld) [#/Vol] 3.15 10*6/uL Low 3.90 - 5.2 0 m/uL [facility] WBC (Bld) [#/Vol] 5.82 10*3/uL 3.70 - 11. 00 k/uL [facility] CNOVSPon 05-22-2022 CNOVSP Visit (SP) Office (HEMASA) KAYA SCHILLING ([id number]) 1965 F Date Time Provider Department 05/22/22 11:30 AM KAREL SAM During your visit today, we recorded the following information about you: Temperature Pulse Respiration Blood pressure 97.6 degrees 95/minute 16/minute 145/80 Weight Height 71.2 kg 1.651 m Karel Sam MD 05/22/2022 11:57 AM Signed PATIENT NAME: Kaya Schilling CLINIC NO.: [id number] ATTENDING PHYSICIAN: Karel Sam MD DATE OF SERVICE: May 22, [address] Kostas tSeward MD thank you for referring Mrs. Kaya Schilling for an opinion regarding Anemia. CHIEF COMPLAINT: I am anemic HPI: Kaya Schilling is a 57 year old year old female with past medical history significant for diabetes, COPD, rectal prolapse and gastroesophageal reflux disease who was referred to our clinic for evaluation of normocytic anemia. Patient had a previous history of iron deficiency in 2013 for which she received IV iron with improvement in her hemoglobin and hematocrit. She is not a great historian but does state that over the last 6 months she has done months prior. She denies any melena or hematochezia. She denies any changes in her appetite. She also describes neuropathy in her hands and feet. Her appetites been stable. She denies any history of recurrent infections and also denies any bony pain. Patient has 2 children. She had a previous tubal ligation and Bartholin's gland excision. She does not smoke. She is also on disability for herniated disc. Current Outpatient Medications Medication Sig fluticasone (FLOVENT HFA) 220 mcg/actuation inhaler Inhale 2 Puffs as instructed twice daily. gabapentin (NEURONTIN) 100 mg capsule TAKE 1 CAPSULE BY MOUTH 3 TIMES A DAY metFORMIN (GLUCOPHAGE) 1,000 mg tablet Take 1,000 mg by mouth twice daily. levothyroxine (SYNTHROID) 125 mcg tablet Take 1 tablet by mouth once daily. budesonide/formotero l fumarate (SYMBICORT INHALATION) Inhale as instructed. zolpidem (AMBIEN) 10 mg tab Take by mouth at bedtime as needed. levomilnacipran ER (FETZIMA) 40 mg Take by mouth once daily. cloNIDine HCl (CATAPRES) 0.1 mg tablet Take 0.1 mg by mouth twice daily. METOCLOPRAMIDE HCL 10 mg tablet as needed. ALPRAZOLAM 2 mg tablet Take 2 mg by mouth three times daily as needed. Indications: Anxiety LITHIUM CARBONATE 600 mg capsule Take 300 mg by mouth twice daily with meals. One in AM and Two in PM No current facility-administere d medications for this visit. ALLERGIES Allergen Reactions Percocet [Oxycodone* GI Upset Stadol [Butorphanol* Vomiting incoherent PAST MEDICAL HISTORY Diagnosis Date Anemia Arthritis Bipolar 1 disorder (HCC) Broken jaw ([facility]) no surgery COPD (chronic obstructive pulmonary disease) ([facility]) Diabetes mellitus (adult onset) ([facility]) History of broken nose had septoplasty Manic depression ([facility]) Dr. Rees Neck pain Pneumonia PTSD (post-traumatic stress disorder) Scoliosis Thyroid disease PAST SURGICAL HISTORY Procedure Laterality Date BLADDER SURGERY HX mesh sling EXCIS BARTHOLIN GLAND/CYST NOSE SURGERY HX septum rconstruction REPAIR RECTOCELE SEPARATE PROCEDURE THYROID SURGERY HX biopsy done no CA TUBAL LIGATION HX FAMILY HISTORY Problem Relation Age of Onset other (high blood pressure [Other]) Mother other (high blood pressure [Other]) Sister other (heat attack [Other]) Mother other (heart attack [Other]) Father Diabetes Sister Diabetes Maternal Grandmother Diabetes Maternal Grandfather Cancer Mother Social History Tobacco Use Smoking status: Never Smokeless tobacco: Never Substance Use Topics Alcohol use: No Drug use: No REVIEW OF SYSTEMS GENERAL: No weight loss, malaise or fevers. No night sweats. HEENT: Negative for headaches, No changes in hearing or vision, no nose bleeds or other nasal problems. RESPIRATORY: Negative for cough, wheezing and shortness of breath CARDIOVASCULAR: Negative for chest pain, leg swelling and palpitations GI: Negative for abdominal discomfort, blood in stools or black stools and change in bowel habits : Negative for dysuria, frequency and incontinence MUSCULOSKELETAL: Negative for joint pain or swelling, back pain, and muscle pain. SKIN: Negative for lesions, rash, and itching. HEMATOLOGY/LYMPHOLOG Y Negative for prolonged bleeding, bruising easily, and swollen nodes. NEURO: Negative for numbness or tingling of hands/feet. No weakness. PHYSICAL EXAMINATION: BP 145/80 Pulse 95 Temp 36.4 ?C (97.6 ?F) (Temporal) Resp 16 Ht 165.1 cm (5' 5 ) Wt 71.2 kg (157 lb) LMP 05/28/2016 (Approximate) SpO2 100% BMI 26.13 kg/m? Wt 71.2 kg (157 lb) BMI 26.13 kg/m2 Last 3 Encounter Wt Readings: Date: Wt: 05/22/2022 71.2 kg (157 lb) 01/29/2021 73.3 kg (161 lb 9.6 oz) 12/03/2020 75.3 kg (166 lb) General appearanc (more content not included)... Normal [facility] Ferritin SerPl-mCncon 2021 Ferritin [Mass/Vol] 3.2 ng/mL Low 14.7-205.1 [facility] Comment on above: Order Comment: Speci men Type: BLOOD SPECIMEN Ordering Facility: [facility] Address: [address] [place] [address] Performed By: #### S PARUL #### [facility] CLIA [id number] [address] [place] [address] [place] [address] [place] Folate SerPl-mCncon 05-22-20 22 Folate [Mass/Vol] ng/mL Normal >4.7 [facility] Comment on above: Order Comment: Speci men Type: BLOOD SPECIMEN Ordering Facility: [facility] Address: [address] [place] [address] Result Comment: A re sult of > 20 ng/mL is not necessarily indicative of a pathologic or treatable condition: it reflects a limitation of the test methodology. Assay reference range: 4.8 to 24.2 ng/mL. Suitable for detection of folate deficiency. Reference: Folate III (Folate III) [package insert V 1.0 [place]]. [facility], [place], [place]: July 2015. Performed By: #### S ERIMM #### [facility] CLIA [id number] [address] [place] [address] IMMUNOFIXATION SCREEN, SERUM on 05-22-2022 MPA RESULT No M protein is identified. Normal No M protein is identified. [facility] Comment on above: Order Comment: Speci men Type: BLOOD SPECIMEN Ordering Facility: [facility] Address: [address] [place] [address] Performed By: #### S ERIMM #### [facility] CLIA [id number] [address] [place] [address] OF [facility] STAFF REVIEW (MPA) Reviewed by Mateo Armando MD, Ph.D ([id number]) Normal [facility] Comment on above: Order Comment: Speci men Type: BLOOD SPECIMEN Ordering Facility: [facility] Address: [address] [place], [place] [address] Performed By: #### S ERIMM #### [facility] CLIA [id number] [address] [place] [address] [place] IMMUNOGLOBULINS GAMon 2021 IgA [Mass/Vol] 314 mg/dL Normal 70-400 [facility] Comment on above: Order Comment: Speci men Type: BLOOD SPECIMEN Ordering Facility: [facility] Address: [address] [place] [address] Performed By: #### S ERIMM #### [facility] CLIA [id number] [address] [place] [address] [place] IgG [Mass/Vol] 1099 mg/dL Normal 700-1600 [facility] Comment on above: Order Comment: Speci men Type: BLOOD SPECIMEN Ordering Facility: [facility] Address: [address] [place], [place] [id number] Performed By: #### S ERIMM #### [facility] CLIA [id number] [address] [place] [address] [place] IgM [Mass/Vol] 56 mg/dL Normal 40-230 [facility] Comment on above: Order Comment: Speci men Type: BLOOD SPECIMEN Ordering Facility: [facility] Address: [address] [place], [place] [id number] Performed By: #### S ERIMM #### [facility] CLIA [id number] [address] [place] [address] [place] Iron and Iron binding capaci ty panelon 05-22-2022 Iron [Mass/Vol] 34 ug/dL Low 41-186 [facility] Comment on above: Order Comment: Speci men Type: BLOOD SPECIMEN Ordering Facility: [facility] Address: [address] [place] [address] Performed By: #### S ERIMM #### [facility] CLIA [id number] [address] [place] [address] [place] Iron binding capacity [Mass/Vol] 467 ug/dL High 232-386 [facility] Comment on above: Order Comment: Speci men Type: BLOOD SPECIMEN Ordering Facility: [facility] Address: [address] [place] [address] Performed By: #### S ERIMM #### [facility] CLIA [id number] [address] [place] [address] [place] Iron/TIBC [Molar ratio] 7.3 % Low 15.0-57.0 [facility] Comment on above: Order Comment: Speci men Type: BLOOD SPECIMEN Ordering Facility: [facility] Address: [address] [place] [address] Performed By: #### S ERIMM #### [facility] CLIA [id number] [address] [place] [address] [place] KAPPA/JOHNSON,FREE,SERon 2021 Immunoglobulin light chains.kappa.free (S) [Mass/Vol] 40.4 mg/L High 3.3-19.4 [facility] Comment on above: Order Comment: Speci men Type: BLOOD SPECIMEN Ordering Facility: [facility] Address: [address] [place] [address] Performed By: #### S ERIMM #### [facility] CLIA [id number] [address] [place] [address] Immunoglobulin light chains.kappa/Immunog lobulin light chains.lambda (S) [Mass ratio] 1.99 High 0.26-1.65 [facility] Comment on above: Order Comment: Speci men Type: BLOOD SPECIMEN Ordering Facility: [facility] Address: [address] [place] [address] Performed By: #### S ERIMM #### [facility] CLIA [id number] [address] [place] [address] [place] Immunoglobulin light chains.lambda.free [Mass/Vol] 20.3 mg/L Normal 5.7-26.3 [facility] Comment on above: Order Comment: Speci men Type: BLOOD SPECIMEN Ordering Facility: [facility] Address: [address] [place] [address] Performed By: #### S ERIMM #### [facility] CLIA [id number] [address] [place] [address] [place] LD LACTATE DEHYDROon 022 LDH [Catalytic activity/Vol] 149 U/L 135 - 214 U/L [facility] LDH SerPl-cCncon 05-22-2022 LDH [Catalytic activity/Vol] 149 U/L Normal 135-214 [facility] Comment on above: Order Comment: Speci men Type: BLOOD SPECIMEN Ordering Facility: [facility] Address: [address] [place] [address] Performed By: #### 2 532-0 #### [facility] CLIA [id number] [address] [place], [place] [id number] Prot Ur-mCncon 05-22-2022 Protein (U) [Mass/Vol] 8 mg/dL Normal 0-20 [facility] Comment on above: Order Comment: Speci men Type: URINE SPECIMEN Ordering Facility: [facility] Address: [address] [place] [address] Performed By: #### 2 888-6 #### [facility] CLIA [id number] [address] [place] [address] [place] RETIC COUNTon 05-22-2022 Reticulocytes (Bld) [#/Vol] 0.62690 10*3/uL 0.018 - 0.100 M/uL [facility] Retics #on 05-22-2022 Reticulocytes (Bld) [#/Vol] 0.89550 10*3/uL Normal 0.018-0.100 [facility] Comment on above: Order Comment: Speci men Type: BLOOD SPECIMEN Ordering Facility: [facility] Address: [address] [place] [address] Performed By: #### S ERIMM #### [facility] CLIA [id number] [address] [place] [address] [place] Reticulocytes (Bld) [#/Vol]o n 05-22-2022 Reticulocytes/100 RBC (Bld) 1.9 % Normal 0.4-2.0 [facility] Comment on above: Order Comment: Speci men Type: BLOOD SPECIMEN Ordering Facility: [facility] Address: [address] [place] [address] Performed By: #### S ERIMM #### [facility] CLIA [id number] [address] [place] [address] [place] Reticulocytes/100 RBC (Bld) 1.9 % 0.4 - 2.0 % [facility] URINE PROTEIN ELECTROPHORESI S RANDOM (P)on 05-22-2022 Albumin Elph (U) [Mass fraction] 30.64 % Normal [facility] Comment on above: Order Comment: Speci men Type: URINE SPECIMEN Ordering Facility: [facility] Address: [address] [place] [address] Performed By: #### L [id number] #### [facility] CLIA [id number] [address] [place] [address] [place] Alpha 1 globulin Elph (U) [Mass fraction] 5.14 % Normal [facility] Comment on above: Order Comment: Speci men Type: URINE SPECIMEN Ordering Facility: [facility] Address: [address] [place] [address] Performed By: #### L [id number] #### [facility] CLIA [id number] [address] [place] [address] [place] Alpha 2 globulin Elph (U) [Mass fraction] 14.49 % Normal [facility] Comment on above: Order Comment: Speci men Type: URINE SPECIMEN Ordering Facility: [facility] Address: [address] [place] [id number] Performed By: #### L [id number] #### [facility] CLIA [id number] [address] [place] [address] [place] Beta globulin Elph (U) [Mass fraction] 21.27 % Normal [facility] Comment on above: Order Comment: Speci men Type: URINE SPECIMEN Ordering Facility: [facility] Address: [address] [place], [place] [id number] Performed By: #### L [id number] #### [facility] CLIA [id number] [address] [place] [address] [place] Gamma globulin Elph (U) [Mass fraction] 28.46 % Normal [facility] Comment on above: Order Comment: Speci men Type: URINE SPECIMEN Ordering Facility: [facility] Address: [address] [place] [address] Performed By: #### L [id number] #### [facility] CLIA [id number] [address] [place] [address] [place] Protein Fractions Elph Ludin (U) [Interp] No definitive M protein is identified on protein electrophoresis. Normal No definitive M protein is identified on protein electrophoresi s. [facility] Comment on above: Order Comment: Speci men Type: URINE SPECIMEN Ordering Facility: [facility] Address: [address] [place] [address] Performed By: #### L [id number] #### [facility] [place] [id number] [address] [place] [address] [place] STAFF REVIEW (URINE ELECTRO) Reviewed by Mateo Armando MD, Ph.D ([id number]) Normal [facility] Comment on above: Order Comment: Speci men Type: URINE SPECIMEN Ordering Facility: [facility] Address: [address] [place] [address] Performed By: #### L [id number] #### [facility] [place] [id number] [address] [place] [address] [place] [facility] Cobalamin (Vitamin B12) [Mass/Vol] pg/mL Low 232-1245 [facility] Comment on above: Order Comment: Speci men Type: BLOOD SPECIMEN Ordering Facility: [facility] Address: [address] [place], [place] [id number] Result Comment: Resu lt rechecked. Performed By: #### S ERIMM #### [facility] CLIA [id number] [address] [place] [address] [place] LITHIUMon 05-20-2022 [place] (Eskalith(R)), Serum 0.9 mmol/L Normal 0.5-1.2 [facility] Comment on above: Result Comment: Plas ma concentration of 0.5 - 0.8 mmol/L are advised for long-term use; concentrations of up to 1.2 mmol/L may be necessary during acute treatment. Detection Limit = 0.1 <0.1 indicates None Detected Performed By: #### L ACT #### [facility] [address] [place] [address] Dr. Rosangela Smyth CREATININEon 05-19-2022 Creatinine [Mass/Vol] 0.84 mg/dL Normal 0.55-1.02 [facility] Comment on above: Performed By: #### O BSCRN #### [facility] [address] [place] [address] Dr. Rosangela Smyth EGFR-AF TUNISIAN >60 Normal >=60 [facility] Comment on above: Performed By: #### O BSCRN #### [facility] [address] [place] [address] Dr. Rosangela Smyth EGFR-NON AF TUNISIAN >60 Normal >=60 [facility] Comment on above: Performed By: #### O BSCRN #### [facility] [address] [place] [address] Dr. Rosangela Smyth TSHon 05-19-2022 TSH 2.337 uIU/mL Normal 0.358-3.740 [facility] Comment on above: Performed By: #### O BSCRN #### [facility] [address] [place] [address] Dr. Rosangela Smyth CBC AUTO DIFFon 05-16-2022 BASO # 0.0 103/ul Normal 0.0-0.1 [facility] Comment on above: Performed By: #### L IPID, CMP #### [facility] [address] [place] [address] Dr. Rosangela Smyth Basophils/100 WBC (Bld) 0.4 % Normal 0.2-2.[address] [facility] Comment on above: Performed By: #### L IPID, CMP #### [facility] [address] [place] [address] Dr. Rosangela Smyth EO # 0.3 103/ul Normal 0.0-0.[address] [facility] Comment on above: Performed By: #### L IPID, CMP #### [facility] [address] [place] [address] Dr. Rosangela Smyth Eosinophils/100 WBC (Bld) 5.3 % Normal 0.9-7.[address] [facility] Comment on above: Performed By: #### L IPID, CMP #### [facility] [address] [place] [address] Dr. Rosangela Smyth Erythrocyte distribution width (RBC) [Ratio] 18.5 % Critically high 11.0-15.0 [facility] Comment on above: Performed By: #### L IPID, CMP #### [facility] [address] [place] [address] Dr. Rosangela Smyth Hematocrit (Bld) [Volume fraction] 30.9 % Critically low 36.0-48.0 [facility] Comment on above: Performed By: #### L IPID, CMP #### [facility] [address] [place] [address] Dr. Rosangela Smyth Hemoglobin (Bld) [Mass/Vol] 9.7 g/dL Critically low 12.0-16.[address] [facility] Comment on above: Performed By: #### L IPID, CMP #### [facility] [address] [place] [address] Dr. Rosangela Smyth IG # 0.01 10e3/ul Normal 0.00-0.[address] [facility] Comment on above: Performed By: #### L IPID, CMP #### [facility] [address] [place] [address] Dr. Rosangela Smyth IG % 0.2 % Normal 0.0-0.[address] [facility] Comment on above: Performed By: #### L IPID, CMP #### [facility] [address] [address] [address] Rosangela Smyth LYMPH # 1.7 103/ul Normal 1.2-3.[address] [facility] Comment on above: Performed By: #### L IPID, CMP #### [facility] [address] [address] [address] Rosangela Smyth Lymphocytes/100 WBC (Bld) 31.6 % Normal 20.5-60.0 [facility] Comment on above: Performed By: #### L IPID, CMP #### [facility] [address] [address] [address] Rosangela Smyth MANUAL DIFF REQ NO Normal [facility] Comment on above: Performed By: #### L IPID, CMP #### [facility] [address] [place] [address] Dr. Rosangela Smyth MCH (RBC) [Entitic mass] 30.1 pg Normal 26.7-34.0 [facility] Comment on above: Performed By: #### L IPID, CMP #### [facility] [address] [place] [address] Dr. Rosangela Smyth MCHC (RBC) [Mass/Vol] 31.4 g/dL Normal 29.9-35.2 [facility] Comment on above: Performed By: #### L IPID, CMP #### [facility] [address] [place] [address] Dr. Rosangela Smyth MCV (RBC) [Entitic vol] 96.0 fL Normal 81.0-99.0 [facility] Comment on above: Performed By: #### L IPID, CMP #### [facility] [address] [place] [address] Dr. Rosangela Smyth MONO # 0.5 103/ul Normal 0.3-0.8 [facility] Comment on above: Performed By: #### L IPID, CMP #### [facility] [address] [place] [address] Dr. Rosangela Smyth Monocytes/100 WBC (Bld) 8.7 % Normal 1.7-12.0 [facility] Comment on above: Performed By: #### L IPID, CMP #### [facility] [address] [address] [address] Rosangela Smyth NEUT # 3.0 103/ul Normal 1.4-6.5 [facility] Comment on above: Performed By: #### L IPID, CMP #### [facility] [address] [address] [address] Rosangela Smyth Neutrophils/100 WBC (Bld) 53.8 % Normal 43.0-75.0 [facility] Comment on above: Performed By: #### L IPID, CMP #### [facility] [address] [address] [address] Rosangela Smyth Platelet mean volume (Bld) [Entitic vol] 8.2 fL Critically low 9.5-13.5 [facility] Comment on above: Performed By: #### L IPID, CMP #### [facility] [address] [address] [address] Rosangela Smyth PLT 361 103/ul Normal 150-450 [facility] Comment on above: Performed By: #### L IPID, CMP #### [facility] [address] [address] [address] Rosangela Smyth RBC 3.22 106/ul Critically low 4.20-5.40 [facility] Comment on above: Performed By: #### L IPID, CMP #### [facility] [address] [address] [address] Rosangela Smyth WBC 5.5 103/ul Normal 4.0-11.0 [facility] Comment on above: Performed By: #### L IPID, CMP #### [facility] [address] [place] [address] Dr. Rosangela Smyth OCC BLD IMMUNO SCREENon 05-07 OCCULT BLOOD Negative Normal NEGATIVE [facility] Comment on above: Performed By: #### O BSCRN #### [facility] [address] [place] [address] Dr. Rosangela Smyth PROF CHEM 8 (BAS METB)on Anion gap [Moles/Vol] 13.7 mmol/L Normal [facility] Comment on above: Performed By: #### O BSCRN #### [facility] [address] [place] [address] Dr. Rosangela Smyth Calcium [Mass/Vol] 11.2 mg/dL Critically high 8.5-10.1 [facility] Comment on above: Performed By: #### O BSCRN #### [facility] [address] [place] [address] Dr. Rosangela Smyth Chloride [Moles/Vol] 105 mmol/L Normal 98-107 [facility] Comment on above: Performed By: #### O BSCRN #### [facility] [address] [place] [address] Dr. Rosangela Smyth CO2 [Moles/Vol] 24.4 mmol/L Normal 21.0-32.0 [facility] Comment on above: Performed By: #### O BSCRN #### [facility] [address] [place] [address] Dr. Rosangela Smyth Creatinine [Mass/Vol] 0.95 mg/dL Normal 0.55-1.02 [facility] Comment on above: Performed By: #### O BSCRN #### [facility] [address] [place] [address] Dr. Rosangela Smyth EGFR-AF TUNISIAN >60 Normal >=60 [facility] Comment on above: Performed By: #### O BSCRN #### [facility] [address] [place] [address] Dr. Rosangela Smyth EGFR-NON AF TUNISIAN =60 Normal >=60 [facility] Comment on above: Performed By: #### O BSCRN #### [facility] [address] [place] [address] Dr. Rosangela Smyth Glucose [Mass/Vol] 91 mg/dL Normal 74-106 [facility] Comment on above: Performed By: #### O BSCRN #### [facility] [address] [place] [address] Dr. Rosangela Smyth Potassium [Moles/Vol] 4.1 mmol/L Normal 3.5-5.1 [facility] Comment on above: Performed By: #### O BSCRN #### [facility] [address] [place] [address] Dr. Rosangela Smyth Sodium [Moles/Vol] 139 mmol/L Normal 136-145 [facility] Comment on above: Performed By: #### O BSCRN #### [facility] [address] [place] [address] Dr. Rosangela Smyth Urea nitrogen [Mass/Vol] 11.0 mg/dL Normal 7.0-18.0 [facility] Comment on above: Performed By: #### O BSCRN #### [facility] [address] [place] [address] Dr. Rosangela Smyth Urea nitrogen/Creatinine [Mass ratio] 11.6 mg/mg Normal [facility] Comment on above: Performed By: #### O BSCRN #### [facility] [address] [place] [address] Dr. Rosangela Smyth CBC AUTO DIFFon 05-04-2022 BASO # 0.0 103/ul Normal 0.0-0.1 [facility] Comment on above: Performed By: #### L IPID, CMP #### [facility] [address] [place] [address] Dr. Rosangela Smyth Basophils/100 WBC (Bld) 0.4 % Normal 0.2-2.0 [facility] Comment on above: Performed By: #### L IPID, CMP #### [facility] [address] [place] [address] Dr. Rosangela Smyth EO # 0.4 103/ul Normal 0.0-0.7 [facility] Comment on above: Performed By: #### L IPID, CMP #### [facility] [address] [place] [address] Dr. Rosangela Smyth Eosinophils/100 WBC (Bld) 6.6 % Normal 0.9-7.0 [facility] Comment on above: Performed By: #### L IPID, CMP #### [facility] [address] [place] [address] Dr. Rosangela Smyth Erythrocyte distribution width (RBC) [Ratio] 19.3 % Critically high 11.0-15.0 [facility] Comment on above: Performed By: #### L IPID, CMP #### [facility] [address] [place] [address] Dr. Rosangela Smyth Hematocrit (Bld) [Volume fraction] 29.8 % Critically low 36.0-48.0 [facility] Comment on above: Performed By: #### L IPID, CMP #### [facility] [address] [place] [address] Dr. Rosangela Smyth Hemoglobin (Bld) [Mass/Vol] 9.3 g/dL Critically low 12.0-16.0 [facility] Comment on above: Performed By: #### L IPID, CMP #### [facility] [address] [place] [address] Dr. Rosangela Smyth IG # 0.01 10e3/ul Normal 0.00-0.03 [facility] Comment on above: Performed By: #### L IPID, CMP #### [facility] [address] [place] [address] Dr. Rosangela Smyth IG % 0.2 % Normal 0.0-0.5 [facility] Comment on above: Performed By: #### L IPID, CMP #### [facility] [address] [place] [address] Dr. Rosangela Smyth LYMPH # 1.3 103/ul Normal 1.2-3.[address] [facility] Comment on above: Performed By: #### L IPID, CMP #### [facility] [address] [place] [address] Dr. Rosangela Smyth Lymphocytes/100 WBC (Bld) 23.5 % Normal 20.5-60.[address] [facility] Comment on above: Performed By: #### L IPID, CMP #### [facility] [address] [place] [address] Dr. Rosangela Smyth MANUAL DIFF REQ NO Normal [facility] Comment on above: Performed By: #### L IPID, CMP #### [facility] [address] [place] [address] Dr. Rosangela Smyth MCH (RBC) [Entitic mass] 29.3 pg Normal 26.7-34.[address] [facility] Comment on above: Performed By: #### L IPID, CMP #### [facility] [address] [place] [address] Dr. Rosangela Smyth MCHC (RBC) [Mass/Vol] 31.2 g/dL Normal 29.9-35.[address] [facility] Comment on above: Performed By: #### L IPID, CMP #### [facility] [address] [place] [address] Dr. Rosangela Smyth MCV (RBC) [Entitic vol] 94.0 fL Normal 81.0-99.[address] [facility] Comment on above: Performed By: #### L IPID, CMP #### [facility] [address] [place] [address] Dr. Rosangela Smyth MONO # 0.4 103/ul Normal 0.3-0.[address] [facility] Comment on above: Performed By: #### L IPID, CMP #### [facility] [address] [place] [address] Dr. Rosangela Smyth Monocytes/100 WBC (Bld) 6.6 % Normal 1.7-12.[address] [facility] Comment on above: Performed By: #### L IPID, CMP #### [facility] [address] [place] [address] Dr. Rosangela Smyth NEUT # 3.5 103/ul Normal 1.4-6.[address] [facility] Comment on above: Performed By: #### L IPID, CMP #### [facility] [address] [place] [address] Dr. Rosangela Smyth Neutrophils/100 WBC (Bld) 62.7 % Normal 43.0-75.[address] [facility] Comment on above: Performed By: #### L IPID, CMP #### [facility] [address] [place] [address] Dr. Rosangela Smyth Platelet mean volume (Bld) [Entitic vol] 8.2 fL Critically low 9.5-13.[address] [facility] Comment on above: Performed By: #### L IPID, CMP #### [facility] [address] [address] [address] Rosangela Smyth PLT 337 103/ul Normal 150-450 [facility] Comment on above: Performed By: #### L IPID, CMP #### [facility] [address] [address] [address] Rosangela Smyth RBC 3.17 106/ul Critically low 4.20-5.40 [facility] Comment on above: Performed By: #### L IPID, CMP #### [facility] [address] [address] [address] Rosangela Smyth WBC 5.6 103/ul Normal 4.0-11.0 [facility] Comment on above: Performed By: #### L IPID, CMP #### [facility] [address] [place] [address] Dr. Rosangela Smyth TSHon 05-04-2022 TSH 1.227 uIU/mL Normal 0.358-3.740 [facility] Comment on above: Performed By: #### L IPID, CMP #### [facility] [address] [place] [address] Dr. Rosangela Smyth GLYCOHEMOGLOBIN A1Con 2021 ADA RECOMMENDATION SEE BELOW Normal [facility] Comment on above: Result Comment: ADA RECOMMENDED LIMIT 4.0 - 6.0 ADA THERAPEUTIC TARGET < 7.0 ACTION SUGGESTED > 7.0 Performed By: #### L IPID, CMP #### [facility] [address] [place] [address] Dr. Rosangela Smyth Glucose [Mass/Vol] 154 mg/dL Normal [facility] Comment on above: Performed By: #### L IPID, CMP #### [facility] [address] [address] [address] Rosangela Smyth HbA1c (Bld) [Mass fraction] 7.0 % Critically high 4.5-6.2 [facility] Comment on above: Performed By: #### L IPID, CMP #### [facility] [address] [address] [address] Rosangela Smyth LIPID PROFILEon 04-03-2022 CHOL-HDL RATIO NORM SEE BELOW Normal [facility] Comment on above: Result Comment: 3.3 - 4.4 LOW RISK 4.4 - 7.1 AVERAGE RISK 7.1 - 11.0 MODERATE RISK >11.0 HIGH RISK Performed By: #### L IPID, CMP #### [facility] [address] [address] [address] Rosangela Smyth Cholesterol [Mass/Vol] 147 mg/dL Normal <=200 [facility] Comment on above: Performed By: #### L IPID, CMP #### [facility] [address] [place] [address] Dr. Rosangela Smyth Cholesterol in HDL [Mass/Vol] 64 mg/dL Critically high 40-60 [facility] Comment on above: Performed By: #### L IPID, CMP #### [facility] [address] [place] [address] Dr. Rosangela Smyth Cholesterol in LDL [Mass/Vol] 70.8 mg/dL Normal [facility] Comment on above: Performed By: #### L IPID, CMP #### [facility] [address] [address] [address] Rosangela Smyth Cholesterol.total/Ch olesterol in HDL [Mass ratio] 2.3 {ratio} Normal [facility] Comment on above: Performed By: #### L IPID, CMP #### [facility] [address] [place] [address] Dr. Rosangela Smyth HDL NORMAL > or = 60 mg/dl - LOW CARDIOVASCULAR RISK <40 mg/dl - HIGH CARDIOVASCULAR RISK Normal [facility] Comment on above: Performed By: #### L IPID, CMP #### [facility] [address] [place] [address] Dr. Rosangela Smyth LDL CALC NORMAL SEE BELOW Normal [facility] Comment on above: Result Comment: <100 mg/dl OPTIMAL 100 - 129 mg/dl NEAR OR ABOVE OPTIMAL 130 - 159 mg/dl BORDERLINE HIGH 160 - 189 mg/dl HIGH >190 mg/dl VERY HIGH Performed By: #### L IPID, CMP #### [facility] [address] [address] [address] Rosangela Smyth Triglyceride [Mass/Vol] 61 mg/dL Normal <=[address] [facility] Comment on above: Performed By: #### L IPID, CMP #### [facility] [address] [address] [address] Rosangela Smyth VLDL CALC 12.2 mg/dL Normal [facility] Comment on above: Performed By: #### L IPID, CMP #### [facility] [address] [address] [address] Rosangela Smyth PROF 14(COMP METB)on 022 Albumin [Mass/Vol] 3.7 g/dL Normal 3.4-5.0 [facility] Comment on above: Performed By: #### L IPID, CMP #### [facility] [address] [place] [address] Dr. Rosangela Smyth Albumin/Globulin [Mass ratio] 1.1 {ratio} Normal [facility] Comment on above: Performed By: #### L IPID, CMP #### [facility] [address] [place] [address] Dr. Rosangela Smyth ALP [Catalytic activity/Vol] 92 U/L Normal 46-116 [facility] Comment on above: Performed By: #### L IPID, CMP #### [facility] [address] [place] [address] Dr. Rosangela Smyth ALT [Catalytic activity/Vol] 25 U/L Normal 14-59 [facility] Comment on above: Performed By: #### L IPID, CMP #### [facility] [address] [place] [address] Dr. Rosangela Smyth Anion gap [Moles/Vol] 11.8 mmol/L Normal [facility] Comment on above: Performed By: #### L IPID, CMP #### [facility] [address] [address] [address] Rosangela Smyth AST [Catalytic activity/Vol] 11 U/L Critically low 15-37 [facility] Comment on above: Performed By: #### L IPID, CMP #### [facility] [address] [address] [address] Rosangela Smyth Bilirubin [Mass/Vol] 0.2 mg/dL Normal 0.2-1.0 [facility] Comment on above: Performed By: #### L IPID, CMP #### [facility] [address] [place] [address] Dr. Rosangela Smyth Calcium [Mass/Vol] 10.6 mg/dL Critically high 8.5-10.1 [facility] Comment on above: Performed By: #### L IPID, CMP #### [facility] [address] [place] [address] Dr. Rosangela Smyth Chloride [Moles/Vol] 105 mmol/L Normal 98-107 [facility] Comment on above: Performed By: #### L IPID, CMP #### [facility] [address] [place] [address] Dr. Rosangela Smyth CO2 [Moles/Vol] 25.9 mmol/L Normal 21.0-32.0 [facility] Comment on above: Performed By: #### L IPID, CMP #### [facility] [address] [place] [address] Dr. Rosangela Smyth Creatinine [Mass/Vol] 0.86 mg/dL Normal 0.55-1.02 [facility] Comment on above: Performed By: #### L IPID, CMP #### [facility] [address] [place] [address] Dr. Rosangela Smyth EGFR-AF TUNISIAN >60 Normal >=60 [facility] Comment on above: Performed By: #### L IPID, CMP #### [facility] [address] [place] [address] Dr. Rosangela Smyth EGFR-NON AF TUNISIAN >60 Normal >=60 [facility] Comment on above: Performed By: #### L IPID, CMP #### [facility] [address] [place] [address] Dr. Rosangela Smyth Globulin (S) [Mass/Vol] 3.5 g/dL Normal [facility] Comment on above: Performed By: #### L IPID, CMP #### [facility] [address] [address] [address] Rosangela Smyth Glucose [Mass/Vol] 197 mg/dL Critically high 74-106 [facility] Comment on above: Performed By: #### L IPID, CMP #### [facility] [address] [address] [address] Rosangela Smyth Potassium [Moles/Vol] 4.7 mmol/L Normal 3.5-5.1 [facility] Comment on above: Performed By: #### L IPID, CMP #### [facility] [address] [address] [address] Rosangela Smyth Protein [Mass/Vol] 7.2 g/dL Normal 6.4-8.2 [facility] Comment on above: Performed By: #### L IPID, CMP #### [facility] [address] [place] [address] Dr. Rosangela Smyth Sodium [Moles/Vol] 138 mmol/L Normal 136-145 [facility] Comment on above: Performed By: #### L IPID, CMP #### [facility] [address] [address] [address] Rosangela Smyth Urea nitrogen [Mass/Vol] 16.0 mg/dL Normal 7.0-18.0 [facility] Comment on above: Performed By: #### L IPID, CMP #### [facility] [address] [address] [address] Rosangela Smyth Urea nitrogen/Creatinine [Mass ratio] 18.6 mg/mg Normal [facility] Comment on above: Performed By: #### L IPID, CMP #### [facility] [address] [address] [address] Rosangela Smyth GLYCOHEMOGLOBIN A1Con 2021 ADA RECOMMENDATION SEE BELOW Normal [facility] Comment on above: Result Comment: ADA RECOMMENDED LIMIT 4.0 - 6.0 ADA THERAPEUTIC TARGET < 7.0 ACTION SUGGESTED > 7.0 Performed By: #### L IPID, CMP #### [facility] [address] [place] [address] Dr. Rosangela Smyth Glucose [Mass/Vol] 134 mg/dL Normal [facility] Comment on above: Performed By: #### L IPID, CMP #### [facility] [address] [address] [address] Rosangela Smyth HbA1c (Bld) [Mass fraction] 6.3 % Critically high 4.5-6.2 [facility] Comment on above: Performed By: #### L IPID, CMP #### [facility] [address] [address] [address] Rosangela Smyth LIPID PROFILEon 01-31-2022 CHOL-HDL RATIO NORM SEE BELOW Normal [facility] Comment on above: Result Comment: 3.3 - 4.4 LOW RISK 4.4 - 7.1 AVERAGE RISK 7.1 - 11.0 MODERATE RISK >11.0 HIGH RISK Performed By: #### L ACT #### [facility] [address] [address] [address] Rosangela Smyth Cholesterol [Mass/Vol] 134 mg/dL Normal <=200 [facility] Comment on above: Performed By: #### L ACT #### [facility] [address] [address] [address] Rosangela Smyth Cholesterol in HDL [Mass/Vol] 68 mg/dL Critically high 40-60 [facility] Comment on above: Performed By: #### L ACT #### [facility] [address] [address] [address] Rosangela Smyth Cholesterol in LDL [Mass/Vol] 55.0 mg/dL Normal [facility] Comment on above: Performed By: #### L ACT #### [facility] [address] [address] [address] Rosangela Smyth Cholesterol.total/Ch olesterol in HDL [Mass ratio] 2.0 {ratio} Normal [facility] Comment on above: Performed By: #### L ACT #### [facility] [address] [address] [address] Rosangela Smyth HDL NORMAL > or = 60 mg/dl - LOW CARDIOVASCULAR RISK <40 mg/dl - HIGH CARDIOVASCULAR RISK Normal [facility] Comment on above: Performed By: #### L ACT #### [facility] [address] [address] [address] Rosangela Smyth LDL CALC NORMAL SEE BELOW Normal [facility] Comment on above: Result Comment: <100 mg/dl OPTIMAL 100 - 129 mg/dl NEAR OR ABOVE OPTIMAL 130 - 159 mg/dl BORDERLINE HIGH 160 - 189 mg/dl HIGH >190 mg/dl VERY HIGH Performed By: #### L ACT #### [facility] [address] [address] [address] Rosangela Smyth Triglyceride [Mass/Vol] 55 mg/dL Normal <=150 [facility] Comment on above: Performed By: #### L ACT #### [facility] [address] [address] [address] Rosangela Smyth VLDL CALC 11.0 mg/dL Normal [facility] Comment on above: Performed By: #### L ACT #### [facility] [address] [address] [address] Rosangela Smyth PROF 14(COMP METB)on 022 Albumin [Mass/Vol] 4.0 g/dL Normal 3.4-5.0 [facility] Comment on above: Performed By: #### L ACT #### [facility] [address] [address] [address] Rosangela Smyth Albumin/Globulin [Mass ratio] 1.0 {ratio} Normal [facility] Comment on above: Performed By: #### L ACT #### [facility] [address] [address] [address] Rosangela Smyth ALP [Catalytic activity/Vol] 105 U/L Normal 46-[address] [facility] Comment on above: Performed By: #### L ACT #### [facility] [address] [address] [address] Rosangela Smyth ALT [Catalytic activity/Vol] 30 U/L Normal 14-59 [facility] Comment on above: Performed By: #### L ACT #### [facility] [address] [address] [address] Rosangela Smyth Anion gap [Moles/Vol] 10.7 mmol/L Normal [facility] Comment on above: Performed By: #### L ACT #### [facility] [address] [address] [address] Rosangela Smyth AST [Catalytic activity/Vol] 14 U/L Critically low 15-37 [facility] Comment on above: Performed By: #### L ACT #### [facility] [address] [address] [address] Rosangela Smyth Bilirubin [Mass/Vol] 0.2 mg/dL Normal 0.2-1.0 [facility] Comment on above: Performed By: #### L ACT #### [facility] [address] [address] [address] Rosangela Smyth Calcium [Mass/Vol] 11.1 mg/dL Critically high 8.5-10.1 [facility] Comment on above: Performed By: #### L ACT #### [facility] [address] [address] [address] Rosangela Smyth Chloride [Moles/Vol] 104 mmol/L Normal 98-107 [facility] Comment on above: Performed By: #### L ACT #### [facility] [address] [address] [address] Rosangela Smyth CO2 [Moles/Vol] 26.8 mmol/L Normal 21.0-32.0 [facility] Comment on above: Performed By: #### L ACT #### [facility] [address] [address] [address] Rosangela Smyth Creatinine [Mass/Vol] 0.68 mg/dL Normal 0.55-1.02 [facility] Comment on above: Performed By: #### L ACT #### [facility] [address] [address] [address] Rosangela Smyth EGFR-AF TUNISIAN >60 Normal >=60 [facility] Comment on above: Performed By: #### L ACT #### [facility] [address] [address] [address] Rosangela Smyth EGFR-NON AF TUNISIAN >60 Normal >=60 [facility] Comment on above: Performed By: #### L ACT #### [facility] [address] [address] [address] Rosangela Smyth Globulin (S) [Mass/Vol] 4.0 g/dL Normal [facility] Comment on above: Performed By: #### L ACT #### [facility] [address] [address] [address] Rosangela Smyth Glucose [Mass/Vol] 142 mg/dL Critically high 74-106 [facility] Comment on above: Performed By: #### L ACT #### [facility] [address] [address] [address] Rosangela Smyth Potassium [Moles/Vol] 4.5 mmol/L Normal 3.5-5.1 [facility] Comment on above: Performed By: #### L ACT #### [facility] [address] [address] [address] Rosangela Smyth Protein [Mass/Vol] 8.0 g/dL Normal 6.4-8.2 [facility] Comment on above: Performed By: #### L ACT #### [facility] [address] [address] [address] Rosangela Smyth Sodium [Moles/Vol] 137 mmol/L Normal 136-145 [facility] Comment on above: Performed By: #### L ACT #### [facility] [address] [address] [address] Rosangela Smyth Urea nitrogen [Mass/Vol] 14.0 mg/dL Normal 7.0-18.0 [facility] Comment on above: Performed By: #### L ACT #### [facility] [address] [address] [address] Rosangela Smyth Urea nitrogen/Creatinine [Mass ratio] 20.6 mg/mg Normal [facility] Comment on above: Performed By: #### L ACT #### [facility] [address] [address] [address] Rosangela Smyth Gamma Glutamyl Transpeptidas anurag 07-23-2021 Gamma Glutamyl Transpeptidase 71 7-64 [employer] Other Ambulatory Clinical Summaryo n 02-26-2021 Ambulatory Clinical Summary {[id number] Normal [facility] Ambulatory Clinical Summaryo n 02-07-2021 Ambulatory Clinical Summary {[id number] Normal [facility] Ambulatory Clinical Summary {[id number] [facility] Formson 02-07-2021 Forms [id number] #[id number]:127 [facility] Historical Records Officeon 02-07-2021 Historical Records Office [id number] #1.00CD:127 Normal [facility] Patient Educationon 02-08-20 Patient Education Urology Urinary Incontinence Urinary incontinence refers to a condition in which a person is unable to control where and when to pass urine. A person with this condition will urinate when he or she does not mean to (involuntarily). What are the causes? This condition may be caused by: ? Medicines. ? Infections. ? Constipation. ? Overactive bladder muscles. ? Weak bladder muscles. ? Weak pelvic floor muscles. These muscles provide support for the bladder, intestine, and, in women, the uterus. ? Enlarged prostate in men. The prostate is a gland near the bladder. When it gets too big, it can pinch the urethra. With the urethra blocked, the bladder can weaken and lose the ability to empty properly. ? Surgery. ? Emotional factors, such as anxiety, stress, or post-traumatic stress disorder (PTSD). ? Pelvic organ prolapse. This happens in women when organs shift out of place and into the vagina. This shift can prevent the bladder and urethra from working properly. What increases the risk? The following factors may make you more likely to develop this condition: ? Older age. ? Obesity and physical inactivity. ? and childbirth. ? Menopause. ? Diseases that affect the nerves or spinal cord (neurological diseases). ? Long-term (chronic) coughing. This can increase pressure on the bladder and pelvic floor muscles. What are the signs or symptoms? Symptoms may vary depending on the type of urinary incontinence you have. They include: ? A sudden urge to urinate, but passing urine involuntarily before you can get to a bathroom (urge incontinence). ? Suddenly passing urine with any activity that forces urine to pass, such as coughing, laughing, exercise, or sneezing (stress incontinence). ? Needing to urinate often, but urinating only a small amount, or constantly dribbling urine (overflow incontinence). ? Urinating because you cannot get to the bathroom in time due to a physical disability, such as arthritis or injury, or communication and thinking problems, such as Alzheimer disease (functional incontinence). How is this diagnosed? This condition may be diagnosed based on: ? Your medical history. ? A physical exam. ? Tests, such as: ? Urine tests. ? X-rays of your kidney and bladder. ? Ultrasound. ? CT scan. ? Cystoscopy. In this procedure, a health care provider inserts a tube with a light and camera (cystoscope) through the urethra and into the bladder in order to check for problems. ? Urodynamic testing. These tests assess how well the bladder, urethra, and sphincter can store and release urine. There are different types of urodynamic tests, and they vary depending on what the test is measuring. To help diagnose your condition, your health care provider may recommend that you keep a log of when you urinate and how much you urinate. How is this treated? Treatment for this condition depends on the type of incontinence that you have and its cause. Treatment may include: ? Lifestyle changes, such as: ? Quitting smoking. ? Maintaining a healthy weight. ? Staying active. Try to get 150 minutes of moderate-intensity exercise every week. Ask your health care provider which activities are safe for you. ? Eating a healthy diet. ? Avoid high-fat foods, like fried foods. ? Avoid refined carbohydrates like white bread and white rice. ? Limit how much alcohol and caffeine you drink. ? Increase your fiber intake. Foods such as fresh fruits, vegetables, beans, and whole grains are healthy sources of fiber. ? Pelvic floor muscle exercises. ? Bladder training, such as lengthening the amount of time between bathroom breaks, or using the bathroom at regular intervals. ? Using techniques to suppress bladder urges. This can include distraction techniques or controlled breathing exercises. ? Medicines to relax the bladder muscles and prevent bladder spasms. ? Medicines to help slow or prevent the growth of a man's prostate. ? Botox injections. These can help relax the bladder muscles. ? Using pulses of electricity to help change bladder reflexes (electrical nerve stimulation). ? For women, using a medical scientific officer to prevent urine leaks. This is a small, tampon-like, disposable device that is inserted into the urethra. ? Injecting collagen or carbon beads (bulking agents) into the urinary sphincter. These can help thicken tissue and close the bladder opening. ? Surgery. Follow these instructions at home: Lifestyle ? Limit alcohol and caffeine. These can fill your bladder quickly and irritate it. ? Keep yourself clean to help prevent odors and skin damage. Ask your doctor about special skin creams and cleansers that can protect the skin from urine. ? Consider wearing pads or adult diapers. Make sure to change them regularly, and always change them right after experiencing incontinence. General instructions ? Take icmn-raq-bkejprq and prescription medicines only as (more content not included)... Normal [facility] Urology Office/Clinic Noteon 02-07-2021 Urology Office/Clinic Note Chief Complaint Stress incontinence HPI Staff New pt here for stress incontinence. Pt had a TVT done [place] [address] Shultz. Pt states that she has had a really bad cough for about a year and a half and this is when she started having the stress incontinence again. Dysuria: no Incomplete bladder emptying: no Hematuria: no Frequency: pt states that she does void a lot but she drinks large amounts of water all day long Urgency: no Nocturia: no Stream: starts strong to moderate Leaking: yes Post void dripping: yes Wearing pads/ Depends: yes changes 2-3x daily Urge incontinence: no Stress incontinence: yes Incontinence without Sensory Awareness: no Abdominal pain: no Flank pain: pt states that she has a bad back Sexual complaints: no History of Present Illness Reviewed UA, new pt. forms, and TVT op report from 2013. There have been no associated fever, chills, flank pain or blood in the urine. Pt. denies any pain/burning with urination at this time. Review of Systems PHQ Score Initial Depression Screen Score: 0 ROS - Provider Constitutional: denies weight loss, denies hot flashes. Eyes: denies eye problems. Gastrointestinal: denies nausea, denies vomiting. Cardiovascular: denies chest pain or angina. Integumentary: no dryness Musculoskeletal: denies musculoskeletal symptoms. ENMT: denies otolaryngeal symptoms. Respiratory: no shortness of breath. Heme/Lymph: denies easy bleeding tendency, denies easy bruising tendency. Psychiatric: no confusion, no anxiety. Genitourinary: denies vaginal discharge, moderate incontinence, denies dysuria, denies hematuria, denies urinary frequency, denies amenorrhea, denies menorrhagia, denies abnormal bleeding, denies pelvic pain, denies genital sores, and denies decreased libido. Physical Exam Vitals & Measurements HR: 90(Peripheral) RR: 16 BP: 159/96 HT: 165 cm HT: 165.0 cm WT: 73 kg WT: 73.0 kg BMI: 26.81 General Appearance: alert , no acute distress, well nourished, well developed female. Head: normocephalic . Eyes: normal orbit and globe. ENMT: normal examination of external ears. Chest: Lungs CTA, respirations non labored . Cardiovascular: regular rate and rhythm. Abdomen: soft, non distended, no tenderness, no mass or organomegaly, no hernia. Genitourinary: bladder nonpalpable, no flank tenderness. Lymph Nodes: unremarkable palpation of the cervical area. Skin: warm, dry, no bruising. Psychiatric: cooperative, affect appropriate for age, normal judgement, euthymic mood. Assessment/Plan 1. Stress incontinence (N39.3: Stress incontinence (female) (male)) Moderate - severe. Pt. changes protective wear 2-3x/day. S/p TVT 12/2013. Pt. states sxs started again 1.5yr. ago since developing a severe cough. PVR today - 17ml. Will schedule Cystoscopy. The risks and benefits for this procedure have been discussed. The risks include bleeding, infection, and irritation of the bladder and urinary channel, among others. The patient, after being informed of procedural details and after questions have been answered, wishes to proceed. Full informed consent has been obtained. Will order Local anesthesia. ABX sent to [facility] in [place]. I have reviewed the previous health record information and history for this pt. from Dr. Shultz. Follow-up With When Contact Information KERA VAN, [place], URL [address] [place] [address] [place] [address]- [phone] Additional Instructions: Patient Education Urinary Incontinence I, Vanesa Pruitt , personally scribed for Dr. Shultz on 02/07/2021 11:44:30. . Documentation recorded by the scribe, Vanesa Pruitt, accurately reflects the services(s) I performed and decisions made by me. Authenticated by Dr. Shultz on 02/07/2021 11:46:49. Problem List/Past Medical History Ongoing Bipolar Herniated Disc Hypothyroidism Type 2 diabetes mellitus Historical Ovarian cyst Procedure/Surgical History Nasal Septum Repair, Prolapse Rectum Repair, Tubal ligation. Medications Effexor 75 mg Tab, 225 mg= 3 tab(s), Oral, Daily lithium 300 mg oral tablet, 600 mg= 2 tab(s), Oral, BID metformin, Oral Motrin 800 mg Tab, 800 mg= 1 tab(s), Oral, q8hr Percocet 325 mg-5 mg Tab, 1 tab(s), Oral, q4hr, PRN, Not taking Synthroid 100 mcg Tab, 0.1 mg= 1 tab(s), Oral, Daily Zanaflex 2 mg Tab, QID, PRN Allergies Stadol Social History Tobacco - Denies Tobacco Use, 06/25/2011 Family History Hypertension: Mother, Father and Sister. Immunizations Vaccine Date Status influenza virus vaccine, inactivated 10/14/2020 Recorded Lab Results Ambulatory Point of Care Results Bilirubin Urine Dipstick: Negative (02/07/21 10:55:00) Blood Urine Dipstick: Negative (02/07/21 10:55:00) Glucose Urine Dipstick: 3+ 1000 mg/dl (02/07/21 10:55:00) Ketones Urine Dipstick: Negative (02/07/21 10:55:00) Leukocytes Urine Dipstick: Negative (02/07/21 10:55:00) Nitrite (more content not included)... Normal [facility] Comment on above: Result Comment: Elec tronically Signed By: KERA VAN, Chicho Beaulieu\.br\Date and Time Signed: 02/07/21 11:47 EDT\.br\Electronically Co-Signed By: Vanesa Pruitt MA\.br\Date and Time Co-Signed: 02/07/21 11:[address] NECK SOFT TISSUE WO IVCON on 01-29-2021 [facility] Physician Referralon 020 Physician Referral [phone] [id number] #[id number] Normal [facility] Vital Signs Date Time Vital Sign Value Performing Clinician Facility 05-22-2022 11:23-0400 Body height 165.1 cm Karel Sam MD Work Phone: [facility] 05-22-2022 11:23-0400 Body temperature 97.59 [degF] Karel Sam MD Work Phone: [facility] 05-22-2022 11:23-0400 Body weight 71.22 kg Karel Sam MD Work Phone: [facility] 05-22-2022 11:23-0400 Diastolic blood pressure 80 mm[Hg] Karel Sam MD Work Phone: [facility] 05-22-2022 11:23-0400 Heart rate 95 /min Karel Sam MD Work Phone: [facility] 05-22-2022 11:23-0400 Respiratory rate 16 /min Karel Sam MD Work Phone: [facility] 05-22-2022 11:23-0400 SaO2% (BldA) [Mass fraction] 100 % Karel Sam MD Work Phone: [facility] 05-22-2022 11:23-0400 Systolic blood pressure 145 mm[Hg] Karel Sam MD Work Phone: [facility] 07-23-2021 11:45-0500 Body height 165.1 cm Neo Calhoun Other [employer] Other 07-23-2021 11:45-0500 Body mass index (BMI) [Ratio] 24.29 kg/m2 Neo Calhoun Other [employer] Other 07-23-2021 11:45-0500 Body weight 66.23 kg Neo Calhoun Other [employer] Other 06-02-2021 15:40-0400 Body height 165.1 cm Brynn Mg Other [employer] Other 06-02-2021 15:40-0400 Body mass index (BMI) [Ratio] 24.83 kg/m2 Brynn Mg Other [employer] Other 06-02-2021 15:40-0400 Body temperature 96.9 [degF] Brynn Mg Other [employer] Other 06-02-2021 15:40-0400 Body weight 67.68 kg Brynn Mg Other [employer] Other 06-02-2021 15:40-0400 Diastolic blood pressure 80 mm[Hg] Brynn Mg Other [employer] Other 06-02-2021 15:40-0400 Respiratory rate 18 /min Brynn Mg Other [employer] Other 06-02-2021 15:40-0400 SaO2% (BldA) [Mass fraction] 99 % Brynn Mg Other [employer] Other 06-02-2021 15:40-0400 Systolic blood pressure 136 mm[Hg] Brynn Holliday Other [employer] Other Encounters Encounter Date Encounter Type Care Provider Facility Start: 11-17-2023 End: 11-17-2023 ambulatory [facility] Start: 11-17-2023 End: 11-17-2023 Office outpatient visit 15 minutes [facility] 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 Work Phone: [facility] Comment on above: Diarrhea of presumed infectious origin (Primary Dx); Weakness; Type 2 diabetes mellitus without complication, without long-term current use of insulin ([facility]); Hyperparathyroidism ([facility]) Start: 11-11-2023 Telephone encounter Con Gleason [facility] Internal [facility] Medicine Start: 11-05-2023 Telephone encounter Con Gleason [facility] Start: 10-25-2023 Refill Beatrice Allen [facility] Medicine Comment on above: Type 2 diabetes noe itus without complication, without long- term current use of insulin ([facility]) Start: 10-24-2023 Refill Kostas navas DO Work Phone: [facility] Comment on above: Type 2 diabetes noe itus without complication, without long- term current use of insulin ([facility]) Start: 09-03-2023 Refill Kostas navas DO Work Phone: [facility] Comment on above: Acquired hypothyroid ism Start: 08-24-2023 ambulatory Dajuan Whaley Facility:[facility] Start: 08-23-2023 End: 08-23-2023 ambulatory KOSTAS STEWARD [facility] Start: 01-17-2023 End: 01-17-[address] KOSTAS STEWARD Facility:[facility] Start: 12-21-2022 End: 12-22-[address] KOSTAS STEWARD Facility:[facility] Start: 12-16-[address] DHRUV GARCIA Facili ty:[facility] Start: 11-27-2022 End: 11-27-[address] KOSTAS STEWARD Facility:[facility] Start: 09-23-2022 End: 09-25-2022 Evaluation and management of inpatient DR KOSTAS STEWARD Facility:[facility] Start: 09-22-2022 End: 09-23-[address] KOSTAS STEWARD Facility:[facility] Start: 09-12-2022 End: 09-12-2022 ambulatory ATTILA KIM . Facility:[facility] Start: 09-03-2022 ambulatory UNKNOWN PROVIDER Facili ty:[facility] Start: 07-22-[address] KOSTAS STEWARD Fac ility:[facility] Start: 07-15-2022 End: 07-15-2022 ambulatory Neo Calhoun Other [employer] Other Start: 07-15-2022 Telephone encounter Neo Nation ck [facility] Air Marshal Start: 07-08-2022 End: 07-08-[address] TEE KRAUSE . Facility:[facility] Start: 07-03-2022 Telephone encounter Karel hardwick MD Work Phone: [facility] Comment on above: Patient Update Start: 06-04-2022 Telephone encounter Karel hardwick MD Work Phone: [facility] Comment on above: Appointment Cancelle d Start: 05-29-2022 Telephone encounter Jackie Silverio STOCK PLAN ADMINISTRATOR H ematology/Oncology Comment on above: Social Work Services Start: 05-26-2022 Telephone encounter Regina Zuniga sser PA-C Work Phone: Hematology/Oncology Comment on above: Lab Orders Start: 05-25-2022 Telephone encounter Yvonne Echavarria RN Hematology/Oncology Comment on above: Results Start: 05-22-2022 End: 05-23-2022 ambulatory KOSTAS STEWARD Facility:[facility] Start: 05-22-2022 End: 05-22-2022 ambulatory Karel Sam MD Work Phone: Hematology/Oncology Comment on above: Anemia, normocytic n ormochromic (Primary Dx) Start: 05-22-2022 End: 05-22-2022 Patient encounter procedure Karel Sam MD Work Phone: [facility] Start: 05-21-2022 Chart abstracting Karel gee MD Work Phone: Hematology/Oncology Start: 05-19-2022 End: 05-20-[address] KOSTAS STEWARD Facility:[facility] Start: 05-16-2022 End: 05-16-2022 ambulatory FOX DUFF Facility:[facility] Start: 05-04-2022 End: 05-05-[address] KOSTAS STEWARD Facility:[facility] Start: 04-23-2022 End: 04-23-2022 ambulatory Neo Calhoun Other [employer] Other Start: 04-23-2022 Telephone encounter Neo powell [facility] Start: 04-03-2022 End: 04-04-[address] KOSTAS STEWARD Facility:[facility] Start: 01-31-2022 End: 02-01-[address] KOSTAS STEWARD Facility:[facility] Start: 01-02-2022 End: 01-02-2022 ambulatory Neo Calhoun Other [employer] Other Start: 01-02-2022 Telephone encounter Neo powell [facility] Start: 08-18-2021 End: 08-18-2021 ambulatory Neo Calhoun Other [employer] Other Start: 08-18-2021 Telephone encounter Neo powell [facility] Start: 07-23-2021 End: 07-23-2021 ambulatory Neo Calhoun Other [employer] Other Start: 07-23-2021 Office outpatient vi sit 25 minutes Neo Calhoun [facility] Start: 06-02-2021 Office outpatient ne w 45 minutes Brynn Holliday [facility] Start: 01-29-2021 End: 01-29-2021 Subsequent hospital visit by physician [facility] ([facility]) Radiology Comment on above: Disorder of airway [ J98.9] Procedures Date Procedure Procedure Detail Performing Clinician Start: 08-23-2023 Adult depression scr eening assessment Kostas Steward [employer] Work Phone: Start: 08-23-2023 Microalbumin [Mass/v olume] in Urine by Test strip Kostas [employer] Phone: Start: 08-12-2023 Mammography Kostas echavarria [employer] Phone: Start: 04-01-2023 Diabetic retinal eye exam Kostas [employer] Phone: Start: 01-29-2021 Ct soft tissue neck w/o contrast material Trev Shah MD Work Phone: Start: 01-29-2021 Ct thorax w/o contra st material Trev Shah MD Work Phone: Start: 04-06-2018 Colonoscopy Kostas Chen [employer] Phone: Start: 06-04-2016 Adult depression scr eening assessment Karel Sam MD Work Phone: Plan of Treatment Date Care Activity Detail Author Start: 04-06-2028 Screening for malign ant neoplasm of colon Colonoscopy [facility] Start: 08-23-2024 Adult [facility] Start: 08-23-2024 Depression Screening [facility]ing [facility] Start: 08-23-2024 Tobacco Screening [facility]ening [facility] Start: 08-23-2024 Urine screening for protein [facility]rine [facility]albumin [facility] Start: 08-12-2024 Screening for malign ant neoplasm of breast Mammogram [facility] Start: 04-01-2024 Glaucoma screening Diabetic [facility]thal[facility] Start: 03-15-2024 Diabetic foot examination Diabetic F oot [facility]am [facility] Start: 12-01-2023 End: 12-01-2023 Patient encounter procedure 12/01/2023 4:00 PM EDT Office Visit [facility] [address] [place] [address] Dk Monge, KERSEY 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 [address] [place] [address] [facility] Start: 05-07-2023 Influenza vaccination [facility] Start: 11-11-2022 PNEUMOCOCCAL (2 - PCV) PNEUMOCOCCAL (2 - PCV) [facility] Start: 11-11-2022 Pneumococcal vaccination Pneum ococcal Vaccine (2 - PCV) [facility] Start: 09-06-2022 Depression Assessment Depression Ass essment [facility] Start: 06-19-2022 End: 08-19-2022 PROTEIN ELECTROPHORESIS SERUM W/INTERP PROTEIN ELECTROPHORESIS SERUM W/INTERP Lab Routine Anemia, normocytic normochromic Expected: 06/19/2022 (Approximate), Expires: 08/19/[address] [facility] Work Phone: Comment on above: Expected: 06/19/2022 (Approximate), Expires: 08/19/2022 Start: 06-12-2022 End: 08-12-2022 Thyrotropin [Units/volume] in Serum or Plasma TSH BLD Lab Routine Anemia, normocytic normochromic Expected: 06/12/2022 (Approximate), Expires: 08/12/[address] [facility] Work Phone: Comment on above: Expected: 06/12/2022 (Approximate), Expires: 08/12/2022 Start: 06-05-2022 End: 08-05-2022 Comprehensive metabolic 2000 panel - Serum or Plasma COMP METABOLIC PANEL Lab Routine Anemia, normocytic normochromic Expected: 06/05/2022 (Approximate), Expires: 08/05/[address] [facility] Work Phone: Comment on above: Expected: 06/05/2022 (Approximate), Expires: 08/05/2022 Start: 05-26-2022 End: 07-26-2022 CBC W Auto Differential panel - Blood CBC + DIFF Lab Routine Anemia, normocytic normochromic Expected: 05/26/2022, Expires: 07/26/[address] [facility] Work Phone: Comment on above: Expected: 05/26/2022 , Expires: 07/26/2022 Start: 05-26-2022 End: 07-26-2022 Comprehensive metabolic 2000 panel - Serum or Plasma COMP METABOLIC PANEL Lab Routine Anemia, normocytic normochromic Expected: 05/26/2022, Expires: 07/26/[address] [facility] Work Phone: Comment on above: Expected: 05/26/2022 , Expires: 07/26/2022 Start: 05-26-2022 End: 07-26-2022 Ferritin [Mass/volume] in Serum or Plasma FERRITIN BLD Lab Routine Anemia, normocytic normochromic Expected: 05/26/2022, Expires: 07/26/[address] [facility] Work Phone: Comment on above: Expected: 05/26/2022 , Expires: 07/26/2022 Start: 05-26-2022 End: 07-26-2022 Iron and Iron binding capacity panel - Serum or Plasma IRON + TIBC Lab Routine Anemia, normocytic normochromic Expected: 05/26/2022, Expires: 07/26/[address] [facility] Work Phone: Comment on above: Expected: 05/26/2022 , Expires: 07/26/2022 Start: 05-22-2022 End: 07-22-2022 Cobalamin (Vitamin B12) [Mass/volume] in Serum or Plasma [facility] Work Phone: Comment on above: Expected: 05/22/2022 , Expires: 07/22/2022 Start: 05-22-2022 End: 05-22-2023 Ferritin [Mass/volume] in Serum or Plasma [facility] Work Phone: Comment on above: Expected: 05/22/2022 , Expires: 05/22/2023 Start: 05-22-2022 End: 07-22-2022 Folate [Mass/volume] in Serum or Plasma [facility] Work Phone: Comment on above: Expected: 05/22/2022 , Expires: 07/22/2022 Start: 05-22-2022 End: 05-22-2023 Iron and Iron binding capacity panel - Serum or Plasma [facility] Work Phone: Comment on above: Expected: 05/22/2022 , Expires: 05/22/2023 Start: 05-22-2022 End: 07-22-2022 MONOCLONAL PROTEIN, SERUM (BLOOD) [facility] Work Phone: Comment on above: Expected: 05/22/2022 , Expires: 07/22/2022 Start: 05-22-2022 End: 07-22-2022 PROTEIN ELECT RNRegla UR W/INTERP [facility] Work Phone: Comment on above: Expected: 05/22/2022 , Expires: 07/22/2022 Start: 05-07-2022 Influenza vaccination INFLUENZA (#1) [facility] Start: 09-06-2021 DEPRESSION ASSESSMENT DEPRESSION ASS ESSMENT [facility] Start: 06-04-2017 Adult depression screening assessment DEPRESSION SCREENING [facility] Start: 01-09-2014 Administration of varicella zoster vaccine Zoster (Shingles) Vaccine (1 of 2) [facility] Start: 01-09-2014 SHINGRIX VACCINE (1 of 2) FERGUSON GRIX VACCINE (1 of 2) [facility] Start: 01-09-2009 COLOGUARD (FIT-DNA) COLOGUARD (FIT-D NA) [facility] Start: 01-09-2009 Colonoscopy COLONOSCOPY [facility] Start: 01-09-2009 COLORECTAL CANCER SCREENING COLORECTAL CANCER SCREENING [facility] Start: 01-09-[address] COLONOGRAPHY [facility] Start: 01-09-2009 DIABETES SCREEN DIABETES SCREEN [facility] Start: 01-09-2009 Diabetes Screening Diabetes Screenin g [facility] Start: 01-09-2009 FECAL OCCULT BLOOD FECAL OCCULT BLOO D [facility] Start: 01-09-2009 Lipid 1996 panel - S elissa or Plasma Lipid Screening [facility] Start: 01-09-2009 LIPID SCREEN LIPID SCREEN [facility] Start: 01-09-2009 SIGMOIDOSCOPY SIGMOIDOSCOPY [facility] Start: 2004 Mammography [facility] Start: 01-09-1994 HPV TESTING HPV TESTING [facility] Start: 01-09-1994 Zoledronic acid therapy ALPHA- 1 ANTITRYPSIN DEFICIENCY SCREENING [facility] Start: 01-09-1985 PAP TESTING PAP TESTING [facility] Start: 01-09-1985 Screening for malign ant neoplasm of cervix Pap Smear [facility] Start: 01-09-1983 DTaP,Tdap and Td Vac cines (1 - Tdap) DTaP,Tdap and Td Vaccines (1 - Tdap) [facility] Start: 01-09-1983 Urine microalbumin profile [facility] Start: 01-09-1982 ANNUAL PCP TEAM COMMUNICATIONS TOWER TECHNICIAN ALLEN DISEASE VISIT ANNUAL PCP TEAM CHRONIC DISEASE VISIT [facility] Start: 01-09-1982 HEPATITIS C SCREENING HEPATITIS C SC REENING [facility] Start: 01-09-1982 HIV SCREENING HIV SCREENING [facility] Start: 01-09-1970 PNEUMOCOCCAL (1 - PCV) PNEUMOCOCCAL (1 - PCV) [facility] Start: 1964 COVID-19 VACCINE (#1) COVID-19 VACCI NE (#1) [facility] Start: 1965 HEPATITIS B (1 of 3 - 3-dose series) HEPATITIS B (1 of 3 - 3-dose series) [facility] End: 11-16-2024 C difficile by PCR C difficile by PCR Lab Routine Diarrhea of presumed infectious origin 1 Occurrences starting 11/17/2023 until 11/16/2024 [facility] Comment on above: 1 Occurrences starti ng 11/17/2023 until 11/16/2024 End: 11-16-2024 GI Panel(stool pathogen panel) GI Panel(stool pathogen panel) Lab Routine Diarrhea of presumed infectious origin 1 Occurrences starting 11/17/2023 until 11/16/2024 [facility] Work Phone: Comment on above: 1 Occurrences starti ng 11/17/2023 until 11/16/2024 [facility] Immunizations Immunization Date Immunization Notes Care Provider Mary mack 06-13-2022 Influenza, injectabl e, Madin Gilberts Canine Kidney, preservative free, quadrivalent Kostas Furlong DO Work Phone: [facility] 06-13-2022 Pneumococcal Conjuga te 20-valent Kostas Furlong DO Work Phone: [facility] 06-13-2022 influenza virus vaccine, unspecified formulation Kostas Furlong DO Work Phone: [facility] 11-11-2021 Influenza, injectabl e, Madin Gilberts Canine Kidney, preservative free, quadrivalent Karel Sam MD Work Phone: [facility] 11-11-2021 pneumococcal polysaccharide vaccine, 23 valent Karel Sam MD Work Phone: [facility] 11-11-2021 influenza virus vaccine, unspecified formulation Ct (I-Stat) [facility] 09-06-2020 influenza, seasonal, injectable Karel Sam MD Work Phone: [facility] 07-21-2020 influenza, seasonal, injectable Kostas Furlong DO Work Phone: [facility] 07-02-2020 influenza, injectabl e, quadrivalent, contains preservative Kostas Furlong DO Work Phone: [facility] 06-14-2019 influenza, injectabl e, quadrivalent, contains preservative Kostas Furlong DO Work Phone: [facility] 06-14-2019 pneumococcal polysaccharide vaccine, 23 valent Kostas Furlong DO Work Phone: [facility] 06-28-2017 Influenza, injectabl e, Madin Gilberts Canine Kidney, preservative free, quadrivalent Karel Sam MD Work Phone: [facility] 07-17-2015 influenza, seasonal, injectable, preservative free Karel Sam MD Work Phone: [facility] 07-27-2014 influenza, seasonal, injectable, preservative free Karel Sam MD Work Phone: [facility] 06-06-2014 influenza, injectabl e, quadrivalent, preservative free [employer] Other [place] [employer] Other 07-11-2013 influenza virus vaccine, whole virus Kostas Steward DO Work Phone: [facility] Payers Date Payer Category Payer Self-pay 2013 Medicaid [id number] 1965 Unknown [id number] 2.16.84 [id number] 1965 Unknown [id number] 2.16.84 [id number] 1964 Unknown [id number] 2.16.84 [id number] 1964 Unknown [id number] 2.16.84 [id number] 1964 Unknown [id number] 2.16.84 0.1.758450.3.579.2.593 1964 Unknown [id number] 2.16.84 0.1.311680.3.579.2.593 1964 Unknown [id number] 2.16.84 0.1.362188.3.579.2.593 1964 Unknown [id number] 2.16.84 0.1.574120.3.579.2.593 1964 Unknown [id number] 2.16.84 0.1.074051.3.579.2.593 1964 Unknown [id number] 2.16.84 0.1.674300.3.579.2.593 1964 Unknown [id number] 2.16.84 0.1.270026.3.579.2.593 1964 Unknown [id number] 2.16.84 0.1.462493.3.579.2.593 1964 Unknown [id number] 2.16.84 0.1.744412.3.579.2.593 1964 Unknown [id number] 2.16.84 [id number] 1964 Unknown [id number] 2.16.8 [id number] 1964 Unknown [id number] 2.16.840 .[id number] 1960 Self-pay [id number] 1959 Unknown [id number] 2.1 [id number] 1959 Unknown [id number] Unknown [id number] 2.16.8 [id number] Social History Date Type Detail Facility Unknown if ever smoked [employer] Other Start: 10-17-2020 End: 12-03-2020 Sex Assigned At [facility] [employer] Other Start: 10-26-2013 End: 10-08-2022 Tobacco smoking status VTIS Never smoked tobacco [facility] Start: 10-26-2013 End: 10-08-2022 Tobacco use and exposure Smokeless tobacco non-user [facility] Start: 12-03-2020 End: 05-21-2022 Alcohol intake Current non-drinker of alcohol (finding) [facility] Start: 1965 Sex Assigned At Not on file [facility] History of tobacco use Passive smoker [facility] Start: 12-30-2020 End: 05-25-2022 Exposure to SARS-CoV-2 (event) Not sure [facility] Start: 10-17-2020 End: 12-03-2020 History of Social function [facility] National Score (1-10 0), lower number is lower risk Not on file [facility] Start: 08-23-2023 Alcohol intake Ex-drinker (finding) [facility] Has the [employer], slinkset threatened to shut off services in your home in past 12Mo No [facility] Are you now , , , , never or living with a partner? [facility] How often to you hav e a drink containing alcohol? Never [facility] How hard is it for y ou to pay for the very basics like food, housing, medical care, and heating Hard [facility] Do you feel stress - tense, restless, nervous, or anxious, or unable to sleep at night because your mind is troubled all the time - these days [OSQ] Rather much [facility] Clinical Notes 06-02-2021 to 11-17-2023 Dk Monge APRN-[facility] - 11/17/2023 2:00 PM EDTTelephone Encounter - Con Victorino, [facility] - 11/11/2023 10:27 AM ESTTelephone Encounter - Con Victorino, [facility] - 11/11/2023 10:27 AM EST Note Date & Type Note Facility 11-17-2023 History of Present illness Narrative [address] [place] [address] Patient: Kaya Schilling Date of : 1965 Encounter Date: 11/17/2023 History of Present Illness: The patient is a 58 y.o. female, an established patient, and is here for No chief complaint on file. . HPI Patient has had 1 week of diarrhea, vomiting and progressive weakness. She had 1 loose stool yesterday, 2 loose stools today so far. She states the stools have slowed down in the last few days but she is still very nauseated and has been vomiting intermittently. She has not vomited today but vomited 3-4 times since the illness started a week ago. She is very fatigued and has had a 12 lb weight loss in the last few weeks. She had a cholecystectomy at the end of May. She has had no recent antibiotics has not been out to eat or had any recent travel or change in water supply. In March 2023 she was diagnosed with hyperparathyroidism but she never f/u with specialist - she said that she tried to but they told her the referral was not sent over correctly and she did not understand the rest so she just said 'forget it'. She is requesting something for nausea but states zofran does not work for her only phenergan. Video Visit via Real-time Synchronous Audiovisual Provider Location: [facility] [address] [place] [address] Patient Location: Patient's home Video Visit Consent Statement: I discussed risks, benefits, and alternatives of a real-time synchronous audiovisual consultation with the patient (and any accompanying persons) including the risks that the patient's personal health details and medical records will be discussed over real-time, synchronous, interactive video/audio/telecommunication technology, the visit will not be recorded without the express consent of both the provider and the patient, and that there are some limitations compared to [id number] evaluations. The patient consented to the presence of additional virtual and/or in-person participants. We elected to proceed. Problem List Items Addressed This Visit Endocrine Type 2 diabetes mellitus without complication, without long-term current use of insulin ([facility]) Hyperparathyroidism ([facility]) Other Visit Diagnoses Diarrhea of presumed infectious origin - Primary Relevant Orders GI Panel(stool pathogen panel) C difficile by PCR Weakness Relevant Orders [facility] Past Medical, Family, and Social History Update: The following portions of the patient's history were reviewed and updated as appropriate: allergies, current medications, past family history, past medical history, past social history, past surgical history and problem list. Past Medical History: Diagnosis Date Bipolar 1 disorder ([facility] Elevated parathyroid hormone Empty sella ([facility] Female bladder prolapse Hepatitis C Hypercalcemia Hypothyroidism Manic depression ([facility]) Migraine Scoliosis Past Surgical History: Procedure Laterality Date INCONTINENCE SURGERY NASAL SEPTUM SURGERY OVARIAN CYST REMOVAL TUBAL LIGATION Current Outpatient Medications Medication Sig Dispense Refill ALPRAZolam (XANAX) 2 mg tablet Take 1 tablet (2 mg total) by mouth in the morning and 1 tablet (2 mg total) at noon and 1 tablet (2 mg total) in the evening and 1 tablet (2 mg total) before bedtime. atorvastatin (LIPITOR) 40 mg tablet Take 1 tablet (40 mg total) by mouth in the morning. 30 tablet 11 budesonide-formoteroL (SYMBICORT) 160-4.5 mcg/actuation inhaler Inhale 2 puffs every 12 (twelve) hours. busPIRone (BUSPAR) 15 mg tablet Take 1 tablet (15 mg total) by mouth in the morning and 1 tablet (15 mg total) before bedtime. CAPLYTA 10.5 mg capsule Take 1 capsule by mouth in the morning. dapagliflozin propanediol (FARXIGA) 10 mg tablet Take 1 tablet (10 mg total) by mouth in the morning. 30 tablet 5 FETZIMA 80 mg capsule,extended release 24 hr Take 1 tablet by mouth daily. fluticasone (FLONASE) 50 mcg/actuation nasal spray Administer 1 spray into each nostril daily. 15.8 mL 12 glipiZIDE (GLUCOTROL) 10 mg tablet Take 1 tablet (10 mg total) by mouth in the morning and 1 tablet (10 mg total) before bedtime. 180 tablet 1 ibuprofen (MOTRIN) 800 mg tablet Take 1 tablet (800 mg total) by mouth 3 (three) times a day as needed. levothyroxine (SYNTHROID, LEVOTHROID) 100 MCG tablet TAKE 1 TABLET (100 MCG TOTAL) BY MOUTH IN THE MORNING. 90 tablet 3 lithium carbonate 300 mg capsule Take 1 capsule (300 mg total) by mouth 3 (three) times a day. loratadine (CLARITIN) 10 mg tablet Take 1 tablet (10 mg total) by mouth in the morning. 90 tablet 3 losartan (COZAAR) 100 mg tablet Take 1 tablet (100 mg total) by mouth in the morning. 90 tablet 3 meclizine (ANTIVERT) 25 mg tablet Take 1 tablet (25 mg total) by mouth 3 (three) times a day as needed for dizziness. 20 tablet 0 metFORMIN (GLUCOPHAGE) 1000 mg tablet TAKE 1 TABLET (1000 MG TOTAL) BY MOUTH IN THE MORNING AND BEFORE BEDTIME 180 tablet 1 montelukast (SINGULAIR) 10 mg tablet Take 1 tablet (10 mg total) by mouth in the morning. 30 tablet 5 promethazine (PHENERGAN) 12.5 mg tablet Take 1 tablet (12.5 mg total) by mouth every 8 (eight) hours as needed for nausea or vomiting for up to 5 days. 15 tablet 0 zolpidem (AMBIEN) 5 mg tablet Take 1 tablet (5 mg total) by mouth once daily at bedtime. No current facility-administered medications for this visit. (All medications reviewed and updated by provider since last office visit or hospitalization) Allergies: Brintellix [vortioxetine], Percocet [oxycodone-acetaminophen], and Stadol [butorphanol tartrate] Tobacco History: Social History Tobacco Use Smoking Status Never Smokeless Tobacco Never (If patient a smoker, smoking cessation counseling offered) Social History: Social History Substance and Sexual Activity Alcohol Use Not Currently Review of Systems: Review of Systems Constitutional: Positive for fatigue and unexpected weight change (12 lb weight loss). HENT: Negative. Respiratory: Negative. Cardiovascular: Negative. Gastrointestinal: Positive for abdominal pain, diarrhea, nausea and vomiting. Genitourinary: Negative. Neurological: Positive for weakness and headaches. Physical Exam: There were no vitals taken for this visit. Physical Exam Vitals reviewed. Constitutional: Appearance: Normal appearance. She is ill-appearing. Comments: Patient is laying on the couch during video visit and said she was too weak to get up to turn on the light but visit was changed to a call as there was a bad connection Neurological: Mental Status: She is alert. Psychiatric: Mood and Affect: Affect is tearful. Assessment and Plan: Diagnoses and all orders for this visit: Diarrhea of presumed infectious origin - GI Panel(stool pathogen panel); Future - C difficile by PCR; Future Weakness - [facility]; Future Type 2 diabetes mellitus without complication, without long-term current use of insulin ([facility] Hyperparathyroidism ([facility]) Other orders - promethazine (PHENERGAN) 12.5 mg tablet; Take 1 tablet (12.5 mg total) by mouth every 8 (eight) hours as needed for nausea or vomiting for up to 5 days. Follow-up: Since her diarrhea symptoms have been persistent for the last week we will check stool pathogen panel and C diff. she agrees to go to [facility] for this. Risks of Phenergan including sedation while driving were discussed with patient and she should limit use. Short-term prescription given. Her symptoms very well could be from hyperparathyroidism that has not been treated since March of last year. She was encouraged to come into the office for recheck of this and her diabetes and other chronic problems but she states she can not drive to the office in her weakened state. She was offered home health services for social work and Physical therapy for strengthening and so she can have help setting up rides. She was highly encouraged to follow-up in the office or with the specialist she was referred to for the hyperparathyroidism. If she develops inability to tolerate PO intake she should call 911. [phone] 20min DAHLIA JANE APRN-CNP 11/20/23 0914 documented in this encounter [facility] 11-11-2023 Miscellaneous Notes Pt calls states she has that new virus called Norovirus. She is feeling better. Told her to try the brat diet documented in this encounter [facility] 11-11-2023 Telephone encounter Note Pt calls states she has that new virus called Norovirus. She is feeling better. Told her to try the brat diet [facility] 11-05-2023 Miscellaneous Notes Pt called and just wanted to let us know she is sick and I told her we are closed and please if drink plenty of water and if she gets worse please go to Local hospital to be checked documented in this encounter [facility] 11-05-2023 Telephone encounter Note Pt called and just wanted to let us know she is sick and I told her we are closed and please if drink plenty of water and if she gets worse please go to Local hospital to be checked [facility] 07-03-2022 Miscellaneous Notes per answering service, pt cx today rv and tx appointments due to being up all night sick will call back to reschedule. documented in this encounter [facility] 06-04-2022 Miscellaneous Notes Patient left a message on my voicemail today to get this appointment scheduled. Call placed to patient, no answer. Left message on voicemail to call back to reschedule. Roberta Vaughan Per Answering Service message patient called requested to cancel this appointment and stated she will call us back to reschedule. Hanna Perdomo Pss documented in this encounter [facility] 05-29-2022 Miscellaneous Notes Patient is listed on the First Time Treatment List for a non-oncology treatment. No psychosocial assessment is indicated. CHUCHO Francis documented in this encounter [facility] 05-28-2022 Miscellaneous Notes Called Amada Nash spoke with Luisa. She states they have received this referral and their client service coordinator will be calling patient soon to schedule. Hanna Perdomo Pss Records faxed to [facility]. Appointments moved to next (06/04). Called pt, no answer, LMOV. Theresa miranda send to GI facesheet in your box Electronically signed by Sharron Dominguez [facility] at 05/25/2022 2:10 PM EDT Order placed and she also needs to see GI Spoke with patient. She verbalized understanding and was familiar with both medications as she has had both previously. She was scheduled for this 05/28/22, however she would not be able to get her treatment that day d/t insurance. Patient and nurse discussed pushing appointment out a week so that she can follow up and get IV infusion. Patient verbalized understanding. TERRELL: Please place orders for IV iron and B12 IM PSS: Please schedule patient for the following and then call patient with new appointment. On provider and treatment schedule. Yvonne Echavarria RN LM to CB Yvonne Echavarria RN ----- Message from Sharron Keenan RN sent at 05/25/2022 8:33 AM EDT ----- ----- Message ----- From: Karel Sam MD Sent: 05/23/2022 4:49 PM EDT To: Sharron Keenan RN Please let patient know that she has both B12 and Iron def and will need to have all replaced. Would recommend IV and IM B12 replacement if she is in agreement. She also will need an upper and lower endoscopy to further evaluate as well,. documented in this encounter [facility] 05-26-2022 Miscellaneous Notes Patient scheduled to see you on 06/04/22 for follow up with labs. Please add lab orders. Thanks. Amirah Koch MA documented in this encounter [facility] 05-22-2022 Note HNO ID: [id number] Author: Karel Sam MD Service: ? Author Type: Physician Type: Progress Notes Filed: 05/22/2022 11:57 AM Note Text: PATIENT NAME: Kaya Schilling CLINIC NO.: [id number] ATTENDING PHYSICIAN: Karel Sam MD DATE OF SERVICE: May 22, [address] Kostas Steward MD thank you for referring Mrs. Kaya Schilling for an opinion regarding Anemia. CHIEF COMPLAINT: I am anemic HPI: Kaya Schilling is a 57 year old year old female with past medical history significant for diabetes, COPD, rectal prolapse and gastroesophageal reflux disease who was referred to our clinic for evaluation of normocytic anemia. Patient had a previous history of iron deficiency in 2013 for which she received IV iron with improvement in her hemoglobin and hematocrit. She is not a great historian but does state that over the last 6 months she has done months prior. She denies any melena or hematochezia. She denies any changes in her appetite. She also describes neuropathy in her hands and feet. Her appetites been stable. She denies any history of recurrent infections and also denies any bony pain. Patient has 2 children. She had a previous tubal ligation and Bartholin's gland excision. She does not smoke. She is also on disability for herniated disc. Current Outpatient Medications Medication Sig fluticasone (FLOVENT HFA) 220 mcg/actuation inhaler Inhale 2 Puffs as instructed twice daily. gabapentin (NEURONTIN) 100 mg capsule TAKE 1 CAPSULE BY MOUTH 3 TIMES A DAY metFORMIN (GLUCOPHAGE) 1,000 mg tablet Take 1,000 mg by mouth twice daily. levothyroxine (SYNTHROID) 125 mcg tablet Take 1 tablet by mouth once daily. budesonide/formoterol fumarate (SYMBICORT INHALATION) Inhale as instructed. zolpidem (AMBIEN) 10 mg tab Take by mouth at bedtime as needed. levomilnacipran ER (FETZIMA) 40 mg Take by mouth once daily. cloNIDine HCl (CATAPRES) 0.1 mg tablet Take 0.1 mg by mouth twice daily. METOCLOPRAMIDE HCL 10 mg tablet as needed. ALPRAZOLAM 2 mg tablet Take 2 mg by mouth three times daily as needed. Indications: Anxiety LITHIUM CARBONATE 600 mg capsule Take 300 mg by mouth twice daily with meals. One in AM and Two in PM No current facility-administered medications for this visit. ALLERGIES Allergen Reactions Percocet [Oxycodone* GI Upset Stadol [Butorphanol* Vomiting incoherent PAST MEDICAL HISTORY Diagnosis Date Anemia Arthritis Bipolar 1 disorder ([facility]) Broken jaw ([facility]) no surgery COPD (chronic obstructive pulmonary disease) ([facility]) Diabetes mellitus (adult onset) ([facility]) History of broken nose had septoplasty Manic depression ([facility]) Dr. Rees Neck pain Pneumonia PTSD (post-traumatic stress disorder) Scoliosis Thyroid disease PAST SURGICAL HISTORY Procedure Laterality Date BLADDER SURGERY HX mesh sling EXCIS BARTHOLIN GLAND/CYST NOSE SURGERY HX septum rconstruction REPAIR RECTOCELE SEPARATE PROCEDURE THYROID SURGERY HX biopsy done no CA TUBAL LIGATION HX FAMILY HISTORY Problem Relation Age of Onset other (high blood pressure [Other]) Mother other (high blood pressure [Other]) Sister other (heat attack [Other]) Mother other (heart attack [Other]) Father Diabetes Sister Diabetes Maternal Grandmother Diabetes Maternal Grandfather Cancer Mother Social History Tobacco Use Smoking status: Never Smokeless tobacco: Never Substance Use Topics Alcohol use: No Drug use: No REVIEW OF SYSTEMS GENERAL: No weight loss, malaise or fevers. No night sweats. HEENT: Negative for headaches, No changes in hearing or vision, no nose bleeds or other nasal problems. RESPIRATORY: Negative for cough, wheezing and shortness of breath CARDIOVASCULAR: Negative for chest pain, leg swelling and palpitations GI: Negative for abdominal discomfort, blood in stools or black stools and change in bowel habits : Negative for dysuria, frequency and incontinence MUSCULOSKELETAL: Negative for joint pain or swelling, back pain, and muscle pain. SKIN: Negative for lesions, rash, and itching. HEMATOLOGY/LYMPHOLOGY Negative for prolonged bleeding, bruising easily, and swollen nodes. NEURO: Negative for numbness or tingling of hands/feet. No weakness. PHYSICAL EXAMINATION: BP 145/80 Pulse 95 Temp 36.4 ?C (97.6 ?F) (Temporal) Resp 16 Ht 165.1 cm (5' 5 ) Wt 71.2 kg (157 lb) LMP 05/28/2016 (Approximate) SpO2 100% BMI 26.13 kg/m? Wt 71.2 kg (157 lb) BMI 26.13 kg/m2 Last 3 Encounter Wt Readings: Date: Wt: 05/22/2022 71.2 kg (157 lb) 01/29/2021 73.3 kg (161 lb 9.6 oz) 12/03/2020 75.3 kg (166 lb) General appearance:ECOG PERFORMANCE STATUS: 0- Fully active, able to carry on all pre-disease performance w/o restriction. Patient in NAD. Skin: Skin color, texture, turgor normal. No rashes or lesions. Eyes: Anicteric sclera. Pupils are equally round and reactive to light. Extraocular movements are intact. Breast: (more content not included)... [facility] 05-22-2022 History of Present illness Narrative PATIENT NAME: Kaya Schilling [facility] NO.: [id number] ATTENDING PHYSICIAN: Karel Sam MD DATE OF SERVICE: May 22, [address] Kostas Steward MD thank you for referring Mrs. Kaya Schilling for an opinion regarding Anemia. CHIEF COMPLAINT: I am anemic HPI: Kaya Schilling is a 57 year old year old female with past medical history significant for diabetes, COPD, rectal prolapse and gastroesophageal reflux disease who was referred to our clinic for evaluation of normocytic anemia. Patient had a previous history of iron deficiency in 2013 for which she received IV iron with improvement in her hemoglobin and hematocrit. She is not a great historian but does state that over the last 6 months she has done months prior. She denies any melena or hematochezia. She denies any changes in her appetite. She also describes neuropathy in her hands and feet. Her appetites been stable. She denies any history of recurrent infections and also denies any bony pain. Patient has 2 children. She had a previous tubal ligation and Bartholin's gland excision. She does not smoke. She is also on disability for herniated disc. Current Outpatient Medications Medication Sig fluticasone (FLOVENT HFA) 220 mcg/actuation inhaler Inhale 2 Puffs as instructed twice daily. gabapentin (NEURONTIN) 100 mg capsule TAKE 1 CAPSULE BY MOUTH 3 TIMES A DAY metFORMIN (GLUCOPHAGE) 1,000 mg tablet Take 1,000 mg by mouth twice daily. levothyroxine (SYNTHROID) 125 mcg tablet Take 1 tablet by mouth once daily. budesonide/formoterol fumarate (SYMBICORT INHALATION) Inhale as instructed. zolpidem (AMBIEN) 10 mg tab Take by mouth at bedtime as needed. levomilnacipran ER (FETZIMA) 40 mg Take by mouth once daily. cloNIDine HCl (CATAPRES) 0.1 mg tablet Take 0.1 mg by mouth twice daily. METOCLOPRAMIDE HCL 10 mg tablet as needed. ALPRAZOLAM 2 mg tablet Take 2 mg by mouth three times daily as needed. Indications: Anxiety LITHIUM CARBONATE 600 mg capsule Take 300 mg by mouth twice daily with meals. One in AM and Two in PM No current facility-administered medications for this visit. ALLERGIES Allergen Reactions Percocet [Oxycodone* GI Upset Stadol [Butorphanol* Vomiting incoherent PAST MEDICAL HISTORY Diagnosis Date Anemia Arthritis Bipolar 1 disorder ([facility]) Broken jaw ([facility]) no surgery COPD (chronic obstructive pulmonary disease) ([facility]) Diabetes mellitus (adult onset) ([facility]) History of broken nose had septoplasty Manic depression ([facility]) Dr. Rees Neck pain Pneumonia PTSD (post-traumatic stress disorder) Scoliosis Thyroid disease PAST SURGICAL HISTORY Procedure Laterality Date BLADDER SURGERY HX mesh sling EXCIS BARTHOLIN GLAND/CYST NOSE SURGERY HX septum rconstruction REPAIR RECTOCELE SEPARATE PROCEDURE THYROID SURGERY HX biopsy done no CA TUBAL LIGATION HX FAMILY HISTORY Problem Relation Age of Onset other (high blood pressure [Other]) Mother other (high blood pressure [Other]) Sister other (heat attack [Other]) Mother other (heart attack [Other]) Father Diabetes Sister Diabetes Maternal Grandmother Diabetes Maternal Grandfather Cancer Mother Social History Tobacco Use Smoking status: Never Smokeless tobacco: Never Substance Use Topics Alcohol use: No Drug use: No REVIEW OF SYSTEMS GENERAL: No weight loss, malaise or fevers. No night sweats. HEENT: Negative for headaches, No changes in hearing or vision, no nose bleeds or other nasal problems. RESPIRATORY: Negative for cough, wheezing and shortness of breath CARDIOVASCULAR: Negative for chest pain, leg swelling and palpitations GI: Negative for abdominal discomfort, blood in stools or black stools and change in bowel habits : Negative for dysuria, frequency and incontinence MUSCULOSKELETAL: Negative for joint pain or swelling, back pain, and muscle pain. SKIN: Negative for lesions, rash, and itching. HEMATOLOGY/LYMPHOLOGY Negative for prolonged bleeding, bruising easily, and swollen nodes. NEURO: Negative for numbness or tingling of hands/feet. No weakness. PHYSICAL EXAMINATION: BP 145/80 Pulse 95 Temp 36.4 C (97.6 F) (Temporal) Resp 16 Ht 165.1 cm (5' 5 ) Wt 71.2 kg (157 lb) LMP 05/28/2016 (Approximate) SpO2 100% BMI 26.13 kg/m Wt 71.2 kg (157 lb) BMI 26.13 kg/m2 Last 3 Encounter Wt Readings: Date: Wt: 05/22/2022 71.2 kg (157 lb) 01/29/2021 73.3 kg (161 lb 9.6 oz) 12/03/2020 75.3 kg (166 lb) General appearance:ECOG PERFORMANCE STATUS: 0- Fully active, able to carry on all pre-disease performance w/o restriction. Patient in NAD. Skin: Skin color, texture, turgor normal. No rashes or lesions. Eyes: Anicteric sclera. Pupils are equally round and reactive to light. Extraocular movements are intact. Breast: No palpable breast masses. No nipple change or discharge. Lymph Nodes: No cervical, supraclavicular, axillary or inguinal adenopathy. Oropharynx: Lips, mucosa, and tongue normal. Back: No pain to percussion. Negative SLR test Lungs clear to auscultation, No wheezing or rhonchi Heart: RRR without murmur, gallop, or rubs. Abdomen soft, non-tender. No masses, organomegaly Extremities: No deformities. No edema Neuro: Gait and speech normal. Reflexes normal and symmetric. Muscular strength intact. Sensation grossly intact. Rectal: Deferred : Deferred LABS: No results found for: GLUC, K, NA, CHLOR, CO2, CREAT, BUN, ANION, CA, TPROT, ALB, TBILI, ALKPHOS, AST, ALT WBC Date Value Ref Range Status 03/11/2015 6.56 3.70 - 11.00 k/uL Final RBC Date Value Ref Range Status 03/11/2015 4.64 3.90 - 5.20 m/uL Final Hemoglobin Date Value Ref Range Status 03/11/2015 13.3 11.5 - 15.5 g/dL Final Hematocrit Date Value Ref Range Status 03/11/2015 39.2 36.0 - 46.0 % Final MCV Date Value Ref Range Status 03/11/2015 84.5 80.0 - 100.0 fL Final MCH Date Value Ref Range Status 03/11/2015 28.7 26.0 - 34.0 pG Final MCHC Date Value Ref Range Status 03/11/2015 33.9 30.5 - 36.0 g/dL Final RDW-CV Date Value Ref Range Status 03/11/2015 14.7 11.5 - 15.0 % Final Platelet Count Date Value Ref Range Status 03/11/2015 464 (H) 150 - 400 k/uL Final MPV Date Value Ref Range Status 03/11/2015 8.4 (L) 9.0 - 12.7 fL Final Abs Neut (ANC) Date Value Ref Range Status 11/03/2013 2.92 1.45 - 7.50 k/uL Final Lymph% Date Value Ref Range Status 11/03/2013 26.0 % Final Abs Lymph Date Value Ref Range Status 11/03/2013 1.21 1.00 - 4.00 k/uL Final Manati% Date Value Ref Range Status 11/03/2013 7.7 % Final Abs Manati Date Value Ref Range Status 11/03/2013 0.36 0.00 - 0.86 k/uL Final Abs Eosin Date Value Ref Range Status 11/03/2013 0.12 0.00 - 0.45 k/uL Final Baso% Date Value Ref Range Status 11/03/2013 0.9 % Final Abs Baso Date Value Ref Range Status 11/03/2013 0.04 0.00 - 0.10 k/uL Final Comment: Performed at [facility] , [address] [place] [address] PATH: IMAGING: ASSESSMENT AND PLAN: Kaya Schilling is a 57 year old year old female past medical history significant for diabetes, COPD, rectal prolapse and gastroesophageal reflux disease now with normocytic anemia. Her renal function appears intact. Her serum calcium was elevated at 11.2. Previous total protein normal. Slight elevation of alkaline phosphatase. At this point we will initiate work-up for her anemia. Recheck her iron levels, retake count, B12 and folate stores. Check for monoclonal gammopathy. Check for UPEP and . Check LDH. See back in 1 week for follow up on labs Dear Dr. Kostas Steward MD thank you for allowing me to participate in Mrs. Kaya Schilling care, if there are any questions or concerns please do not hesitate to contact me at the number below. Karel Sam M.D. Hematology/Medical Oncology [facility] [phone] CC: Kostas Steward DO I spent a total of 40 minutes on the date of the service which included preparing to see the patient, [id number] patient care, completing clinical documentation, obtaining and/or reviewing separately obtained history, performing a medically appropriate examination, counseling and educating the patient/family/caregiver, and ordering medications, tests, or procedures. documented in this encounter [facility] 04-23-2022 Evaluation note Encounter Date Diagnosis Assessment Notes Apr, Irritable bowel syndrome with constipation (ICD-10 - K58.1) [facility] Other 12-13-2021 Evaluation note* Encounter Date Diagnosis Assessment Notes Treatment Notes Treatment Clinical Notes Aug, Irritable bowel syndrome with constipation (ICD-10 - K58.1) [facility] Other 11-17-2021 Evaluation note* Encounter Date Diagnosis Assessment Notes Treatment Notes Treatment Clinical Notes Jul, Redundant colon (ICD-10 - Q43.8) Jul, Irritable bowel syndrome with constipation (ICD-10 - K58.1) Increase lactuose to 60cc bid Colonoscopy Jul, Elevated alkaline phosphatase level (ICD-10 - R74.8) Jul, History of hepatitis C (ICD-10 - Z86.19) Jul, Diabetes (ICD-10 - E11.9) [facility] Other 09-27-2021 Evaluation note* Encounter Date Diagnosis Assessment Notes Treatment Notes Treatment Clinical Notes May, Hypercalcemia (ICD-1 0 - E83.52) She has hypercalcemia with high PTH either due to the primary hyperparathyroidism or familial hypocalciuric hypercalcemia. She has a normal values of 25 hydroxy vitamin D and 1-25 hydroxy vitamin D so possibility of granulomatous disease is unlikely. She reported to have a 24-hour urine studies done recently for Dr. Sal. I have advised her to adequately hydrate herself to avoid kidney stones. 27 Sep, 2021 Hyperparathyroidism (ICD-10 - E21.3) She has hyperparathyroidism and currently follows with Dr. Sal. May, DM (diabetes mellitu s) (ICD-10 - E11.9) She has ees-ntocudr-[id number] type 2 diabetes mellitus currently takes oral hypoglycemic. Continue to work with Dr. Sal and PCP for DM management. May, HTN (hypertension) (ICD-10 - I10) Blood pressure control. She appears to be euvolemic. Continue current antihypertensive medication amlodipine and losartan. May, GERD (gastroesophage al reflux disease) (ICD-10 - K21.9) I have explained to her the potential risk of worsening worsening renal function due to the prolonged use of PPI and lithium. I advised her to follow with the PCP with a close monitoring of renal function. May, Dyslipidemia (ICD-10 - E78.5) Continue statins. Continue LFTs and lipid monitoring periodically. May, Other I discussed wit h the patient the potential risk of CKD due to her multiple comorbidities and medications. She has a supratherapeutic vitamin D level but denies any intake of the vitamin D supplement. She reported that she drinks plenty of milk. I have advised her to avoid any calcium and vitamin D supplement. [employer] Other Evaluation noteNo InformationNortPen[facility] [employer] Other Evaluation note* Diagnosis Anemia, normocytic normochromic- Primary Anemia, unspecified [facility] Diagnosis Iron deficiency anemia due to chronic blood loss Iron deficiency anemia secondary to blood loss (chronic) Vitamin B12 deficiency anemia due to selective vitamin B12 malabsorption with proteinuria Other vitamin B12 deficiency anemia [facility]* Diagnosis Anemia, normocytic normochromic- Primary Anemia, unspecified [facility]* Diagnosis Disorder of airway Unspecified disease of respiratory system Airway obstruction, anatomic Other diseases of respiratory system, not elsewhere classified [facility]* Diagnosis Acquired hypothyroidism Unspecified hypothyroidism [facility] Diagnosis Type 2 diabetes mellitus without complication, without long-term current use of insulin ([facility]) [facility] Diagnosis Diarrhea of presumed infectious origin- Primary Weakness Other malaise and fatigue Type 2 diabetes mellitus without complication, without long-term current use of insulin ([facility]) Hyperparathyroidism ([facility]) Hyperparathyroidism, unspecified [facility]ative - Reported* Type Description Date Medical History manic depressive Medical History bipolar disorder Medical History hypothyroidism Medical History chronic bronchitis Medical History COPD Medical History MNG Medical History Unspecified viral hepatitis C wi thout hepatic coma Medical History HYPERCALCEMIA Medical History HISTORY OF CHRONIC COUGH Medical History SEASONAL ALLERGIES Medical History HYPERLIPIDEMIA Medical History CELIAC DISEASE Medical History FATIGUE Medical History SEVERE PERSISTENT ASTHMA WITH EX ACERBATION Medical History HYPERTENSION Surgical History OVARIAN CYST REMOVED Surgical History PROLAPSE RECTUM Surgical History RHINOPLASTY Surgical History TUBAL LIGATION Surgical History bartholigram removed Surgical History BRONCHOSCOPY 08/26/2020 Surgical History BLADDER MESH Surgical History LAPAROSCOPY Hospitalization History SEE ABOVE [employer] Other InstructionsNot on filedocumented in this encounter [facility] filedocumented in this encounter [facility]Not on filedocumented in [facility] for [facility] Diagnostic Procedure Only (Routine) - Closed Specialty Diagnoses / Procedures Referred By Graham gray Referred To Contact CT IMAGING Diagnoses Disorder of airway Airway obstruction, anatomic Procedures CT NECK SOFT TISSUE WO IVCON CT SCAN OF NECK TISSUE Trev Shah MD [address] [facility] [address] [place] [address] [place] [address] Referral ID Status Reason Start Date Expiration Date V isits Requested Visits Authorized [id number] Closed Auto-Generat ed Referral Patient Cleared - Admin/Chairm an/Director advise to proceed or did not respond 01/21/2021 03/22/2021 3 [facility] Consultation (Routine) - Pending Review Specialty Diagnoses / Procedures Referred By Graham gray Referred To Contact Home Health Services Diagnoses Weakness Dk Monge, [employer] 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 [address] [place] [address] [facility] [address] [place] [address] Referral ID Status Reason Start Date Expiration Date Visits Requested Visits Authorized [id number] Pending Review Specialty Services Required 11/18/2023 11/17/2024 1 1 [facility] N[facility]ative* Diagnostic Procedure Only (Routine) - Closed Specialty Diagnoses / Procedures Referred By Contsorin t Referred To Contact CT IMAGING Diagnoses Disorder of airway Airway obstruction, anatomic Procedures CT NECK SOFT TISSUE WO IVCON CT SCAN OF NECK TISSUE Trev Shah MD [address] [place] [address] [place] [address] Referral ID Status Reason Start Date Expiration Date V isits Requested Visits Authorized [id number] Closed Auto-Generat ed Referral Patient Cleared - Admin/Chairm an/Director advise to proceed or did not respond 01/21/2021 03/22/2021 3 3 [facility] Summary Purpose Family History No Family History Records FoundNo Family History Records FoundNo Family History Records FoundNo Family History Records FoundNo Family History Records FoundNo Family History Records Found Advance Directives No Advanced Directives Records FoundNo Advanced Directives Records FoundNo Advanced Directives Records FoundNo Advanced Directives Records FoundNo Advanced Directives Records FoundNo Advanced Directives Records Found Additional Source Comments INFORMATION SOURCE (unrecogn ized section and content) DATE CREATED AUTHOR [facility] DATE CREATED AUTHOR AUTHOR'S ORGANIZ ATION 07/09/2022 [facility] DATE CREATED AUTHOR AUTHOR'S ORGANIZ ATION 09/03/2022 [facility] DATE CREATED AUTHOR AUTHOR'S ORGANIZ ATION 01/20/2023 [facility] DATE CREATED AUTHOR AUTHOR'S ORGANIZ ATION 11/19/2023 [facility] DATE CREATED AUTHOR AUTHOR'S ORGANIZ ATION 11/27/2023 [facility] REASON FOR VISIT (unrecogniz ed section and content) Reason Comments Anemia Reason Comments Social Work Services Reason Comments Results Reason Comments Lab Orders Reason Comments Appointment Cancelled Reason Comments Patient Update Reason Comments Med Refill Reason Onset Date Comments Med Refill 10/25/2023 Source Comments (unrecognize d section and content) In the event this informatio n is protected by the Federal Confidentiality of Alcohol and Drug Abuse Patient Records regulations: The Federal rules restrict any use of the information to criminally investigate or prosecute any alcohol or drug abuse patient.[facility] the event this information is protected by the Federal Confidentiality of Alcohol and Drug Abuse Patient Records regulations: The Federal rules restrict any use of the information to criminally investigate or prosecute any alcohol or drug abuse patient.[facility] CampusIn the event this information is protected by the Federal Confidentiality of Alcohol and Drug Abuse Patient Records regulations: The Federal rules restrict any use of the information to criminally investigate or prosecute any alcohol or drug abuse patient.[facility] Campus[facility] the event this information is protected by the Federal Confidentiality of Alcohol and Drug Abuse Patient Records regulations: The Federal rules restrict any use of the information to criminally investigate or prosecute any alcohol or drug abuse patient.[facility] Campus[facility] the event this information is protected by the Federal Confidentiality of Alcohol and Drug Abuse Patient Records regulations: The Federal rules restrict any use of the information to criminally investigate or prosecute any alcohol or drug abuse patient.[facility] CampusIn the event this information is protected by the Federal Confidentiality of Alcohol and Drug Abuse Patient Records regulations: The Federal rules restrict any use of the information to criminally investigate or prosecute any alcohol or drug abuse patient.[facility] CampusIn the event this information is protected by the Federal Confidentiality of Alcohol and Drug Abuse Patient Records regulations: The Federal rules restrict any use of the information to criminally investigate or prosecute any alcohol or drug abuse patient.[facility] CampusIn the event this information is protected by the Federal Confidentiality of Alcohol and Drug Abuse Patient Records regulations: The Federal rules restrict any use of the information to criminally investigate or prosecute any alcohol or drug abuse patient.[facility] Teams (unrecognized sec tion and content) Calibration Engineer Relationship Specialty Start Date End Date Kostas Steward, DO [address] [place] [address] PCP - General Family Practice 05/14/22 Calibration Engineer Relationship Specialty Start Date End Date Kostas Steward, DO [address] [place] [address] PCP - General Family Practice 05/14/22 Calibration Engineer Relationship Specialty Start Date End Date Jose Stewardnis Otoniel, DO [address] [place] [address] PCP - General Family Medicine 05/14/22 Calibration Engineer Relationship Specialty Start Date End Date Kostas Steward, DO [address] [place] [address] PCP - General Family Medicine 05/14/22 Calibration Engineer Relationship Specialty Start Date End Date Kostas Steward, DO [address] [place] [address] PCP - General Family Medicine 05/14/22 Calibration Engineer Relationship Specialty Start Date End Date Jose Stewardnis Otoniel, DO [address] [place] [address] PCP - General Family Medicine 05/14/22 Calibration Engineer Relationship Specialty Start Date End Date Jose Stewardnis Otoniel, DO [address] [place] [address] PCP - General Family Medicine 05/14/22 Calibration Engineer Relationship Specialty Start Date End Date Conor Herrera PCP - General Family Medicine 10/25/13 05/13/22 Calibration Engineer Relationship Specialty Start Date End Date Kostas Steward DO [address] [place] [address] PCP - [facility] Family Medicine 05/28/22 Calibration Engineer Relationship Specialty Start Date End Date Kostas Steward DO [address] [place] [address] PCP - General Family Medicine 05/28/22 Calibration Engineer Relationship Specialty Start Date End Date Kostas Steward DO [address] [place] [address] PCP - General Family Medicine 05/28/22 FOR RECORDS PERTAINING TO PATIENTS WHO ARE OR HAVE BEEN ENROLLED IN A CHEMICAL DEPENDENCY/SUBSTANCEABUSE PROGRAM, SOME INFORMATION MAY BE OMITTED. This clinical summary was aggregated from multiple sources. Caution should be exercised in using it in the provision of clinical care. This summary normalizes information from multiple sources, and as a consequence, information in this document may materially change the coding, format and clinical context of patient data. In addition, data may be omitted in some cases. CLINICAL DECISIONS SHOULD BE BASED ON THE PRIMARY CLINICAL RECORDS. [facility] [employer] [facility]. provides no warranty or guarantee of the accuracy or completeness of information in this document.
[2023-12-14] MEDS: 0.9 % SODIUM CHLORIDE 1,000 ML 999 ML IV ×2 (13:29→15:32)
[2023-12-14 13:34] LABS: Basophils Percent Auto 0.3 % (0.2-2.0); Eosinophils Absolute Auto 0.2 10^3/uL (0.0-0.7); Eosinophils Percent Auto 2.7 % (0.9-7.0); Hematocrit 33.8 % (36.0-48.0); Hemoglobin 11.6 g/dL (12.0-16.0); Immature Granulocytes Abs Auto 0.02 10^3/uL (0.00-0.03); Immature Granulocytes Pct Auto 0.3 % (0.0-0.5); Lymphocytes Absolute Auto 1.1 10^3/uL (1.2-3.8); Lymphocytes Percent Auto 13.3 % (20.5-60.0); Mean Corpuscular HGB Conc 34.3 g/dL (29.9-35.2); Mean Corpuscular Hemoglobin 33.2 pg (26.7-34.0); Mean Corpuscular Volume 96.8 fL (81.0-99.0); Mean Platelet Volume 8.5 fL (9.5-13.5); Monocytes Absolute Auto 0.5 10^3/uL (0.3-0.8); Monocytes Percent Auto 6.1 % (1.7-12.0); Neutrophils Absolute Auto 6.1 10^3/uL (1.4-6.5); Neutrophils Percent Auto 77.3 % (43.0-75.0); Platelet Count 411 10^3/uL (150-450); Red Blood Count 3.49 10^6/uL (4.20-5.40); Red Cell Distribution Width 15.9 % (11.0-15.0); White Blood Count 7.9 10^3/uL (4.0-11.0)
[2023-12-14 13:51] LABS: Lactate/Lactic Acid 1.6 mmol/L (0.4-2.0)
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
[2023-12-14 13:58] LABS: Alanine Aminotransferase 23 U/L (14-59); Albumin Globulin Ratio 0.9; Albumin Level 3.5 g/dL (3.4-5.0); Alkaline Phosphatase 141 U/L (46-116); Anion Gap 13.5; Aspartate Amino Transferase 20 U/L (15-37); BUN Creatinine Ratio 10.8; Bilirubin Total 0.6 mg/dL (0.2-1.0); Calcium 11.3 mg/dL (8.5-10.1); Carbon Dioxide 24.4 mmol/L (21.0-32.0); Chloride 97 mmol/L (98-107); Estimated GFR (African America 56 (>=60); Estimated GFR (Non-African Ame 46 (>=60); Globulin 4.1 g/dL; Glucose 270 mg/dL (74-106); Potassium 3.9 mmol/L (3.5-5.1); Sodium 131 mmol/L (136-145); Total Protein 7.6 g/dL (6.4-8.2); Troponin I High Sensitivity 8.1 pg/mL (4.0-51.3)
--- NOTE | 2023-12-14 14:15 | PC.NURSE ---
Pt. used the bedside commode for a stool and urine sample. Pt. was not able to provide a stool sample but did give the urine sample. Pt. complaining of a headache. Dr. informed that she would like something for her headache.
[2023-12-14] MEDS: KETOROLAC TROMETHAMINE 30 MG/ML VIAL IVP (14:23)
[2023-12-14] MEDS: PROMETHAZINE HCL 12.5 MG in 0.9 % SODIUM CHLORIDE 50 ML 202 MG IV (14:23)
[2023-12-14 14:45] LABS: Bilirubin Urine NEGATIVE (NEGATIVE); Blood Urine NEGATIVE (NEGATIVE); Clarity Urine CLEAR (CLEAR); Color Urine LT. YELLOW (YELLOW); Glucose Urine UA 100 mg/dL (NEGATIVE); Ketones Urine NEGATIVE (NEGATIVE); Leukocyte Esterase Urine TRACE (NEGATIVE); Nitrite Urine NEGATIVE (NEGATIVE); Protein Urine NEGATIVE (NEG/TRACE); Urobilinogen Urine 0.2 EU/dL (0.2-1.0)
[2023-12-14 14:49] LABS: Urine Microscopic Indicated YES
[2023-12-14 15:00] LABS: Mucus Urine NONE SEEN (NONE SEEN); RBC Urine 0-2 #/HPF (0-2); Squamous Epithelial Cell Urine FEW #/LPF (NONE/RARE)
[2023-12-14 15:01] LABS: Bacteria Urine NONE SEEN #/HPF (NONE SEEN); Cast Seen? NONE SEEN #/LPF (NONE SEEN); Crystals Seen? None Seen #/HPF (None Seen); Urine Culture Indicated NO
[2023-12-14] MEDS: LOSARTAN POTASSIUM 50 MG TABLET 100 MG PO (15:12)
--- NOTE | 2023-12-14 16:17 | PC.NURSE ---
Pt unable to give stool sample for the second time. informed dr sosa. will plan on giving outpt stool sample order. 2nd IVF bag finishing up. pt asleep
== END 2023-12-14 16:37 | disposition home or self-care (01) ==
PROVIDERS: Emergency Provider Emergency Medicine Emergency Medical Services; PCP Family Medicine
DX: E86.9 Volume depletion, unspecified (principal); M81.0 Age-related osteoporosis without current pathological fracture; F31.9 Bipolar disorder, unspecified; F41.9 Anxiety disorder, unspecified; J44.9 Chronic obstructive pulmonary disease, unspecified; K21.9 Gastro-esophageal reflux disease without esophagitis; E78.00 Pure hypercholesterolemia, unspecified; E11.9 Type 2 diabetes mellitus without complications; E03.9 Hypothyroidism, unspecified; Z86.16 Personal history of COVID-19; Z79.84 Long term (current) use of oral hypoglycemic drugs; Z79.899 Other long term (current) drug therapy; Z79.890 Hormone replacement therapy; B19.20 Unspecified viral hepatitis C without hepatic coma; Z98.890 Other specified postprocedural states; Z98.51 Tubal ligation status
CPT/HCPCS: 36415; 80053; 81001; 83605; 83690; 84484; 85025; 87507; 96361; 96365; 96375; 99284

== ENCOUNTER 2024-01-11 20:58 | Emergency (ER) | payer OTHER, SELFPAY ==
--- OUTSIDE RECORDS SUMMARY | 2024-01-11 21:10 | XMS_ITS | CCD ---
Demographics Address [address] [facility] [address] [place] [address] Preferred Language en Marital Status Single Buddhist Affiliation Unknown Race White Ethnic Group Not or Lati no Author Organization [facility] Care Team Providers Care Phone Screener Name Role Phone Reva Hollidayul Unavailable Neo Calhoun Unavailable Kostas Steward DO Primary Care Provider Kostas [...] Unavailable ARTURO, DR KARINA Hart Admitting Unavailable MAYERSVILLE, DR JUSTINA Cardoso Consulting Unavailable ARTURO, DR KARINA Hart Consulting Unavailable IMAN CASTLE Consulting Unavailreed STEWARD, DR KOSTAS Hough Primary Care Unavailable ASHLEY, DR Camelia Beaulieu Attending Unavailable ASHLEY, DR Camelia Beaulieu Admitting Unavailable FOX DUFF Consulting Unavailable FOX DUFF Attending Unavailable BIN, DR KOSTAS Hough Primary Care Unavailable FOX DUFF Admitting Unavailable BIN, DR KOSTAS Hough Primary Care Unavailable JACKIE VINCENT Consulting Unavailable JACKIE VINCENT Attending Unavailable JACKIE VINCENT Admitting Unavailable Kwan Madrid Consulting Unavailable RAUL MARVIN Consulting Unavailable ATTILA RAND Attending Unavailable BIN, DR KOSTAS Hough Primary Care Unavailable ATTILA RAND Admitting Unavailable Linnette Avendano Consulting Unavailable JULIO ., ATTILA Consulting Unavailable HAY ., DR OLIVERIA Attending Unavailable FURLONG, DR KOSTAS Hough Primary [...] Unavailable FURLONGKOSTAS Primary Care Unavailable Dajuan Whaley Attending Unavailab Dajuan Condon Admitting Unavailab Shaikh Fox Primary Care Unavailable Allergies Allergy Classification Reported Allergen(s) Allergy Type Date of Onset Reaction(s) Facility (8 sources) Butorphanol; Translations: [Stadol] Drug Allergy 4 migraines, vomiting [facility] (16 sources) Acetaminophen / oxyCODONE; Translations: [OXYCODONE-ACETAM INOPHEN] Drug Allergy 5 GI Upset [facility] (16 sources) Butorphanol; Translations: [BUTORPHANOL TARTRATE] Drug Allergy 4 Vomiting [facility] (2 sources) Acetaminophen / oxyCODONE Drug Allergy [facility] (7 sources) vortioxetine; Translations: [VORTIOXETINE] Drug Allergy 8 [employer] (1 source) Butorphanol Drug Allergy 1 [facility] Repository Medications Current Medications Medication Drug Class(es) [...] polyneuropathy, without long-term current use of insulin ([facility]) Take 1 tablet (10 mg total) by [...] spray(s) nasal route three times daily Ipratropium [place] 0.06 % 2 sprays in each nostril [...] 0 10/18/2013 05/22/2022 Discontinued (Changing Therapy/Dosage Form) Markesan Carbonat e 150 MG 1 capsule Orally [...] complication, without long-term current use of insulin ([facility]) TAKE 1 TABLET (1000 MG [...] 02-21-2015 Chronic Other aftercare (5 sources) Other usp (current) drug therapy; Translations: [OTH DETENTION CURRENT DRUG THERAPY] Onset: 2 Episodic Other aftercare (1 source) terminologist (current) use of oral hypoglycemic drugs; Translations: [DETENTION USE ORAL HYPOGLYCEMIC DX] Onset: 3 Episodic [...] Value Interpretation Reference Range Facility LITHIUMon 12-22-2022 Markesan (Eskalith(R)), Serum 0.8 mmol/L Normal 0.5-1.2 [facility] Comment on above: Result Comment: A co ncentration of 0.5-0.8 mmol/L is advised for long-term use; concentrations of up to 1.2 mmol/L may be necessary during acute treatment. Detection Limit = 0.1 <0.1 indicates None Detected Performed By: #### O BSCRN #### [facility] [address] [address] [address] Rosangela Smyth CREATININEon 12-21-2022 Creatinine [Mass/Vol] 0.93 mg/dL Normal 0.55-1.02 [facility] Comment on above: Performed By: #### L IPID, CMP #### [facility] [address] [address] [address] Rosangela Smyth EGFR-AF [place] >60 Normal >=60 [facility] Comment on above: Performed By: #### L IPID, CMP #### [facility] [address] [address] [address] Rosangela Smyth EGFR-NON AF [place] >60 Normal >=60 [facility] Comment on above: Performed By: #### L IPID, CMP #### [facility] [address] [place] [address] Dr. Rosangela Smyth GLUCOSE BLOODon 12-21-2022 Glucose [Mass/Vol] 135 mg/dL Critically high 74-106 [facility] Comment on above: Performed By: #### L IPID, CMP #### [facility] [address] [place] [address] Dr. Rosangela Smyth LIPID PROFILEon 12-21-2022 CHOL-HDL RATIO NORM SEE BELOW Normal [facility] Comment on above: Result Comment: 3.3 - 4.4 LOW RISK 4.4 - 7.1 AVERAGE RISK 7.1 - 11.0 MODERATE RISK >11.0 HIGH RISK Performed By: #### L IPID, CMP #### [facility] [address] [address] [address] Rosangela Smyth Cholesterol [Mass/Vol] 194 mg/dL Normal <=200 [facility] Comment on above: Performed By: #### L IPID, CMP #### [facility] [address] [place] [address] Dr. Rosangela Smyth Cholesterol in HDL [Mass/Vol] 68 mg/dL Critically high 40-60 [facility] Comment on above: Performed By: #### L IPID, CMP #### [facility] [address] [place] [address] Dr. Rosangela Smyth Cholesterol in LDL [Mass/Vol] 106.8 mg/dL Normal [facility] Comment on above: Performed By: #### L IPID, CMP #### [facility] [address] [address] [address] Rosangela Smyth Cholesterol.total/Ch olesterol in HDL [Mass ratio] 2.9 {ratio} Normal [facility] Comment on above: Performed By: #### L IPID, CMP #### [facility] [address] [address] [address] Rosangela Smyth HDL NORMAL > or = 60 mg/dl - LOW CARDIOVASCULAR RISK <40 mg/dl - HIGH CARDIOVASCULAR RISK Normal [facility] Comment on above: Performed By: #### L IPID, CMP #### [facility] [address] [place] [address] Dr. Rosangela Smyth LDL CALC NORMAL SEE BELOW Normal [facility] Comment on above: Result Comment: <100 mg/dl OPTIMAL 100 - 129 mg/dl NEAR OR ABOVE OPTIMAL 130 - 159 mg/dl BORDERLINE HIGH 160 - 189 mg/dl HIGH >190 mg/dl VERY HIGH Performed By: #### L IPID, CMP #### [facility] [address] [place] [address] Dr. Rosangela Smyth Triglyceride [Mass/Vol] 96 mg/dL Normal <=150 [facility] Comment on above: Performed By: #### L IPID, CMP #### [facility] [address] [place] [address] Dr. Rosangela Smyth VLDL CALC 19.2 mg/dL Normal [facility] Comment on above: Performed By: #### L IPID, CMP #### [facility] [address] [address] [address] Rosangela Smyth TSHon 12-21-2022 TSH 2.649 uIU/mL Normal 0.358-3.740 [facility] Comment on above: Performed By: #### L IPID, CMP #### [facility] [address] [place] [address] Dr. Rosangela Smyth CBC AUTO DIFFon 09-25-2022 BASO # 0.0 103/ul Normal 0.0-0.1 [facility] Comment on above: Performed By: #### C BC #### [facility] [address] [place] [address] Dr. Rosangela Smyth Basophils/100 WBC (Bld) 0.0 % Critically low 0.2-2.0 [facility] Comment on above: Performed By: #### C BC #### [facility] [address] [place] [address] Dr. Rosangela Smyth EO # 0.0 103/ul Normal 0.0-0.7 [facility] Comment on above: Performed By: #### C BC #### [facility] [address] [place] [address] Dr. Rosangela Smyth Eosinophils/100 WBC (Bld) 0.0 % Critically low 0.9-7.0 [facility] Comment on above: Performed By: #### C BC #### [facility] [address] [place] [address] Dr. Rosangela Smyth Erythrocyte distribution width (RBC) [Ratio] 15.9 % Critically high 11.0-15.0 [facility] Comment on above: Performed By: #### C BC #### [facility] [address] [place] [address] Dr. Rosangela Smyth Hematocrit (Bld) [Volume fraction] 25.7 % Critically low 36.0-48.0 [facility] Comment on above: Performed By: #### C BC #### [facility] [address] [place] [address] Dr. Rosangela Smyth Hemoglobin (Bld) [Mass/Vol] 8.3 g/dL Critically low 12.0-16.0 [facility] Comment on above: Performed By: #### C BC #### [facility] [address] [place] [address] Dr. Rosangela Smyth IG # 0.03 10e3/ul Normal 0.00-0.03 [facility] Comment on above: Performed By: #### C BC #### [facility] [address] [place] [address] Dr. Rosangela Smyth IG % 0.6 % Critically high 0.0-0.5 [facility] Comment on above: Performed By: #### C BC #### [facility] [address] [place] [address] Dr. Rosangela Smyth LYMPH # 0.7 103/ul Critically low 1.2-3.8 [facility] Comment on above: Performed By: #### C BC #### [facility] [address] [place] [address] Dr. Rosangela Smyth Lymphocytes/100 WBC (Bld) 13.8 % Critically low 20.5-60.0 [facility] Comment on above: Performed By: #### C BC #### [facility] [address] [place] [address] Dr. Rosangela Smyth MANUAL DIFF REQ NO Normal [facility] Comment on above: Performed By: #### C BC #### [facility] [address] [place] [address] Dr. Rosangela Smyth MCH (RBC) [Entitic mass] 31.1 pg Normal 26.7-34.0 [facility] Comment on above: Performed By: #### C BC #### [facility] [address] [place] [address] Dr. Rosangela Smyth MCHC (RBC) [Mass/Vol] 32.3 g/dL Normal 29.9-35.2 [facility] Comment on above: Performed By: #### C BC #### [facility] [address] [place] [address] Dr. Rosangela Smyth MCV (RBC) [Entitic vol] 96.3 fL Normal 81.0-99.0 [facility] Comment on above: Performed By: #### C BC #### [facility] [address] [place] [address] Dr. Rosangela Smyth MONO # 0.3 103/ul Normal 0.3-0.8 [facility] Comment on above: Performed By: #### C BC #### [facility] [address] [place] [address] Dr. Rosangela Smyth Monocytes/100 WBC (Bld) 4.9 % Normal 1.7-12.0 [facility] Comment on above: Performed By: #### C BC #### [facility] [address] [address] [address] Rosangela Smyth NEUT # 4.3 103/ul Normal 1.4-6.5 [facility] Comment on above: Performed By: #### C BC #### [facility] [address] [address] [address] Rosangela Smyth Neutrophils/100 WBC (Bld) 80.7 % Critically high 43.0-75.0 [facility] Comment on above: Performed By: #### C BC #### [facility] [address] [address] [address] Rosangela Smyth Platelet mean volume (Bld) [Entitic vol] 9.1 fL Critically low 9.5-13.5 [facility] Comment on above: Performed By: #### C BC #### [facility] [address] [address] [address] Rosangela Smyth PLT 234 103/ul Normal 150-450 [facility] Comment on above: Performed By: #### C BC #### [facility] [address] [address] [address] Rosangela Smyth RBC 2.67 106/ul Critically low 4.20-5.40 [facility] Comment on above: Performed By: #### C BC #### [facility] [address] [address] [address] Rosangela Smyth WBC 5.4 103/ul Normal 4.0-11.0 [facility] Comment on above: Performed By: #### C BC #### [facility] [address] [address] [address] Rosangela Smyth PROF CHEM 8 (BAS METB)on Anion gap [Moles/Vol] 11.7 mmol/L Normal [facility] Comment on above: Performed By: #### L IPID, CMP #### [facility] [address] [address] [address] Rosangela Smyth Calcium [Mass/Vol] 10.5 mg/dL Critically high 8.5-10.1 [facility] Comment on above: Performed By: #### L IPID, CMP #### [facility] [address] [address] [address] Rosangela Smyth Chloride [Moles/Vol] 114 mmol/L Critically high 98-107 [facility] Comment on above: Performed By: #### L IPID, CMP #### [facility] [address] [address] [address] Rosangela Smyth CO2 [Moles/Vol] 21.9 mmol/L Normal 21.0-32.0 [facility] Comment on above: Performed By: #### L IPID, CMP #### [facility] [address] [place] [address] Dr. Rosangela Smyth Creatinine [Mass/Vol] 0.91 mg/dL Normal 0.55-1.02 [facility] Comment on above: Performed By: #### L IPID, CMP #### [facility] [address] [address] [address] Rosangela Smyth EGFR-AF [place] >60 Normal >=60 [facility] Comment on above: Performed By: #### L IPID, CMP #### [facility] [address] [place] [address] Dr. Rosangela Smyth EGFR-NON AF [place] >60 Normal >=60 [facility] Comment on above: Performed By: #### L IPID, CMP #### [facility] [address] [address] [address] Rosangela Smyth Glucose [Mass/Vol] 108 mg/dL Critically high 74-106 [facility] Comment on above: Performed By: #### L IPID, CMP #### [facility] [address] [address] [address] Rosangela Smyth Potassium [Moles/Vol] 3.6 mmol/L Normal 3.5-5.1 [facility] Comment on above: Performed By: #### L IPID, CMP #### [facility] [address] [address] [address] Rosangela Smyth Sodium [Moles/Vol] 144 mmol/L Normal 136-145 [facility] Comment on above: Performed By: #### L IPID, CMP #### [facility] [address] [place] [address] Dr. Rosangela Smyth Urea nitrogen [Mass/Vol] 20.0 mg/dL Critically high 7.0-18.0 [facility] Comment on above: Performed By: #### L IPID, CMP #### [facility] [address] [place] [address] Dr. Rosangela Smyth Urea nitrogen/Creatinine [Mass ratio] 22.0 mg/mg Normal [facility] Comment on above: Performed By: #### L IPID, CMP #### [facility] [address] [place] [address] Dr. Rosangela Smyth CBC AUTO DIFFon 09-24-2022 BASO # 0.0 103/ul Normal 0.0-0.1 [facility] Comment on above: Performed By: #### C BC #### [facility] [address] [place] [address] Dr. Rosangela Smyth Basophils/100 WBC (Bld) 0.0 % Critically low 0.2-2.0 [facility] Comment on above: Performed By: #### C BC #### [facility] [address] [place] [address] Dr. Rosangela Smyth EO # 0.0 103/ul Normal 0.0-0.7 [facility] Comment on above: Performed By: #### C BC #### [facility] [address] [place] [address] Dr. Rosangela Smyth Eosinophils/100 WBC (Bld) 0.0 % Critically low 0.9-7.0 [facility] Comment on above: Performed By: #### C BC #### [facility] [address] [place] [address] Dr. Rosangela Smyth Erythrocyte distribution width (RBC) [Ratio] 15.7 % Critically high 11.0-15.0 [facility] Comment on above: Performed By: #### C BC #### [facility] [address] [place] [address] Dr. Rosangela Smyth Hematocrit (Bld) [Volume fraction] 30.3 % Critically low 36.0-48.0 [facility] Comment on above: Performed By: #### C BC #### [facility] [address] [address] [address] Rosangela Smyth Hemoglobin (Bld) [Mass/Vol] 9.5 g/dL Critically low 12.0-16.0 [facility] Comment on above: Performed By: #### C BC #### [facility] [address] [address] [address] Rosangela Smyth IG # 0.02 10e3/ul Normal 0.00-0.03 [facility] Comment on above: Performed By: #### C BC #### [facility] [address] [place] [address] Dr. Rosangela Smyth IG % 0.6 % Critically high 0.0-0.5 [facility] Comment on above: Performed By: #### C BC #### [facility] [address] [address] [address] Rosangela Smyth LYMPH # 0.6 103/ul Critically low 1.2-3.8 [facility] Comment on above: Performed By: #### C BC #### [facility] [address] [place] [address] Dr. Rosangela Smyth Lymphocytes/100 WBC (Bld) 17.7 % Critically low 20.5-60.0 [facility] Comment on above: Performed By: #### C BC #### [facility] [address] [place] [address] Dr. Rosangela Smyth MANUAL DIFF REQ NO Normal [facility] Comment on above: Performed By: #### C BC #### [facility] [address] [place] [address] Dr. Rosangela Smyth MCH (RBC) [Entitic mass] 30.6 pg Normal 26.7-34.0 [facility] Comment on above: Performed By: #### C BC #### [facility] [address] [place] [address] Dr. Rosangela Smyth MCHC (RBC) [Mass/Vol] 31.4 g/dL Normal 29.9-35.2 [facility] Comment on above: Performed By: #### C BC #### [facility] [address] [place] [address] Dr. Rosangela Smyth MCV (RBC) [Entitic vol] 97.7 fL Normal 81.0-99.0 [facility] Comment on above: Performed By: #### C BC #### [facility] [address] [place] [address] Dr. Rosangela Smyth MONO # 0.1 103/ul Critically low 0.3-0.8 [facility] Comment on above: Performed By: #### C BC #### [facility] [address] [place] [address] Dr. Rosangela Smyth Monocytes/100 WBC (Bld) 2.5 % Normal 1.7-12.0 [facility] Comment on above: Performed By: #### C BC #### [facility] [address] [place] [address] Dr. Rosangela Smyth NEUT # 2.5 103/ul Normal 1.4-6.5 [facility] Comment on above: Performed By: #### C BC #### [facility] [address] [place] [address] Dr. Rosangela Smyth Neutrophils/100 WBC (Bld) 79.2 % Critically high 43.0-75.0 [facility] Comment on above: Performed By: #### C BC #### [facility] [address] [place] [address] Dr. Rosangela Smyth Platelet mean volume (Bld) [Entitic vol] 8.9 fL Critically low 9.5-13.5 [facility] Comment on above: Performed By: #### C BC #### [facility] [address] [place] [address] Dr. Rosangela Smyth PLT 218 103/ul Normal 150-450 [facility] Comment on above: Performed By: #### C BC #### [facility] [address] [place] [address] Dr. Rosangela Smyth RBC 3.10 106/ul Critically low 4.20-5.40 [facility] Comment on above: Performed By: #### C BC #### [facility] [address] [address] [address] Rosangela Smyth WBC 3.2 103/ul Critically low 4.0-11.0 [facility] Comment on above: Performed By: #### C BC #### [facility] [address] [address] [address] Rosangela Smyth POINT OF CARE GLUCOSEon 09-06 Glucose [Mass/Vol] 291 mg/dL Critically high 74-106 [facility] Comment on above: Performed By: #### P OCGLUC #### [facility] [address] [place] [address] Dr. Rosangela Smyth PROF CHEM 8 (BAS METB)on Anion gap [Moles/Vol] 14.6 mmol/L Normal [facility] Comment on above: Performed By: #### L ACT #### [facility] [address] [place] [address] Dr. Rosangela Smyth Calcium [Mass/Vol] 10.7 mg/dL Critically high 8.5-10.1 [facility] Comment on above: Performed By: #### L ACT #### [facility] [address] [place] [address] Dr. Rosangela Smyth Chloride [Moles/Vol] 113 mmol/L Critically high 98-107 [facility] Comment on above: Performed By: #### L ACT #### [facility] [address] [place] [address] Dr. Rosangela Smyth CO2 [Moles/Vol] 20.7 mmol/L Critically low 21.0-32.0 [facility] Comment on above: Performed By: #### L ACT #### [facility] [address] [place] [address] Dr. Rosangela Smyth Creatinine [Mass/Vol] 0.86 mg/dL Normal 0.55-1.02 [facility] Comment on above: Performed By: #### L ACT #### [facility] [address] [place] [address] Dr. Rosangela Smyth EGFR-AF [place] >60 Normal >=60 [facility] Comment on above: Performed By: #### L ACT #### [facility] [address] [address] [address] Rosangela Smyth EGFR-NON AF [place] >60 Normal >=60 [facility] Comment on above: Performed By: #### L ACT #### [facility] [address] [address] [address] Rosangela Smyth Glucose [Mass/Vol] 279 mg/dL Critically high 74-106 [facility] Comment on above: Performed By: #### L ACT #### [facility] [address] [address] [address] Rosangela Smyth Potassium [Moles/Vol] 4.3 mmol/L Normal 3.5-5.1 [facility] Comment on above: Performed By: #### L ACT #### [facility] [address] [address] [address] Rosangela Smyth Sodium [Moles/Vol] 144 mmol/L Normal 136-145 [facility] Comment on above: Performed By: #### L ACT #### [facility] [address] [address] [address] Rosangela Smyth Urea nitrogen [Mass/Vol] 14.0 mg/dL Normal 7.0-18.0 [facility] Comment on above: Performed By: #### L ACT #### [facility] [address] [address] [address] Rosangela Smyth Urea nitrogen/Creatinine [Mass ratio] 16.3 mg/mg Normal [facility] Comment on above: Performed By: #### L ACT #### [facility] [address] [address] [address] Rosangela Smyth CARDIAC CRYSTAL ADMITon 023 CK [Catalytic activity/Vol] 22 U/L Critically low 26-192 [facility] Comment on above: Performed By: #### L IPID, CMP #### [facility] [address] [address] [address] Rosangela Smyth CK.MB [Mass/Vol] ng/mL Normal <=3.60 [facility] Comment on above: Performed By: #### L IPID, CMP #### [facility] [address] [place] [address] Dr. Rosangela Smyth HSTROP 5.7 pg/mL Normal 4.0-51.3 [facility] Comment on above: Result Comment: CUT- OFF POINTS HAVE BEEN ESTABLISHED BASED ON THE FOURTH UNIVERSAL DEFINITIONS OF MYOCARDIAL INFARCTION. THE UPPER REFERENCE LIMIT (URL) OF TROPONIN, DEFINED THE 99TH PERCENTILE OF cTnI DISTRIBUTION IN A REFERENCE POPULATION, HAS BEEN CONFIRMED THE DECISION THRESHOLD FOR MD DIAGNOSIS. Performed By: #### L IPID, CMP #### [facility] [address] [place] [address] Dr. Rosangela Smyth JOVAN 40 ng/mL Normal 9-82 [facility] Comment on above: Performed By: #### L IPID, CMP #### [facility] [address] [place] [address] Dr. Rosangela Smyth CBC AUTO DIFFon 09-23-2022 BASO # 0.0 103/ul Normal 0.0-0.1 [facility] Comment on above: Performed By: #### L ACT #### [facility] [address] [place] [address] Dr. Rosangela Smyth Basophils/100 WBC (Bld) 0.0 % Critically low 0.2-2.0 [facility] Comment on above: Performed By: #### L ACT #### [facility] [address] [place] [address] Dr. Rosangela Smyth EO # 0.1 103/ul Normal 0.0-0.7 [facility] Comment on above: Performed By: #### L ACT #### [facility] [address] [place] [address] Dr. Rosangela Smyth Eosinophils/100 WBC (Bld) 1.8 % Normal 0.9-7.0 [facility] Comment on above: Performed By: #### L ACT #### [facility] Laboratory [address] [place] [address] Dr. Rosangela Smyth Erythrocyte distribution width (RBC) [Ratio] 15.6 % Critically high 11.0-15.0 [facility] Comment on above: Performed By: #### L ACT #### [facility] [address] [place] [address] Dr. Rosangela Smyth Hematocrit (Bld) [Volume fraction] 26.0 % Critically low 36.0-48.0 [facility] Comment on above: Performed By: #### L ACT #### [facility] [address] [place] [address] Dr. Rosangela Smyth Hemoglobin (Bld) [Mass/Vol] 8.5 g/dL Critically low 12.0-16.0 [facility] Comment on above: Performed By: #### L ACT #### [facility] [address] [place] [address] Dr. Rosangela Smyth IG # 0.02 10e3/ul Normal 0.00-0.03 [facility] Comment on above: Performed By: #### L ACT #### [facility] [address] [place] [address] Dr. Rosangela Smyth IG % 0.5 % Normal 0.0-0.5 [facility] Comment on above: Performed By: #### L ACT #### [facility] [address] [place] [address] Dr. Rosangela Smyth LYMPH # 0.9 103/ul Critically low 1.2-3.8 [facility] Comment on above: Performed By: #### L ACT #### [facility] [address] [place] [address] Dr. Rosangela Smyth Lymphocytes/100 WBC (Bld) 24.0 % Normal 20.5-60.0 [facility] Comment on above: Performed By: #### L ACT #### [facility] [address] [place] [address] Dr. Rosangela Smyth MANUAL DIFF REQ NO Normal [facility] Comment on above: Performed By: #### L ACT #### [facility] [address] [place] [address] Dr. Rosangela Smyth MCH (RBC) [Entitic mass] 31.3 pg Normal 26.7-34.0 [facility] Comment on above: Performed By: #### L ACT #### [facility] [address] [address] [address] Rosangela Smyth MCHC (RBC) [Mass/Vol] 32.7 g/dL Normal 29.9-35.2 [facility] Comment on above: Performed By: #### L ACT #### [facility] [address] [address] [address] Rosangela Smyth MCV (RBC) [Entitic vol] 95.6 fL Normal 81.0-99.0 [facility] Comment on above: Performed By: #### L ACT #### [facility] [address] [address] [address] Rosangela Smyth MONO # 0.2 103/ul Critically low 0.3-0.8 [facility] Comment on above: Performed By: #### L ACT #### [facility] [address] [address] [address] Rosangela Smyth Monocytes/100 WBC (Bld) 4.0 % Normal 1.7-12.0 [facility] Comment on above: Performed By: #### L ACT #### [facility] [address] [address] [address] Rosangela Smyth NEUT # 2.6 103/ul Normal 1.4-6.5 [facility] Comment on above: Performed By: #### L ACT #### [facility] [address] [address] [address] Rosangela Smyth Neutrophils/100 WBC (Bld) 69.7 % Normal 43.0-75.0 [facility] Comment on above: Performed By: #### L ACT #### [facility] [address] [address] [address] Rosangela Smyth Platelet mean volume (Bld) [Entitic vol] 9.1 fL Critically low 9.5-13.5 [facility] Comment on above: Performed By: #### L ACT #### [facility] [address] [address] [address] Rosangela Smyth PLT 244 103/ul Normal 150-450 [facility] Comment on above: Performed By: #### L ACT #### [facility] [address] [address] [address] Rosangela Smyth RBC 2.72 106/ul Critically low 4.20-5.40 [facility] Comment on above: Performed By: #### L ACT #### [facility] [address] [address] [address] Rosangela Smyth WBC 3.8 103/ul Critically low 4.0-11.0 [facility] Comment on above: Performed By: #### L ACT #### [facility] [address] [address] [address] Rosangela Smyth BASO # 0.0 103/ul Normal 0.0-0.1 [facility] Comment on above: Performed By: #### L IPID, CMP #### [facility] [address] [place] [address] Dr. Rosangela Smyth Basophils/100 WBC (Bld) 0.3 % Normal 0.2-2.0 [facility] Comment on above: Performed By: #### L IPID, CMP #### [facility] [address] [address] [address] Rosangela Smyth EO # 0.0 103/ul Normal 0.0-0.7 [facility] Comment on above: Performed By: #### L IPID, CMP #### [facility] [address] [address] [address] Rosangela Smyth Eosinophils/100 WBC (Bld) 1.1 % Normal 0.9-7.0 [facility] Comment on above: Performed By: #### L IPID, CMP #### [facility] [address] [address] [address] Rosangela Smyth Erythrocyte distribution width (RBC) [Ratio] 15.5 % Critically high 11.0-15.0 [facility] Comment on above: Performed By: #### L IPID, CMP #### [facility] [address] [place] [address] Dr. Rosangela Smyth Hematocrit (Bld) [Volume fraction] 31.9 % Critically low 36.0-48.0 [facility] Comment on above: Performed By: #### L IPID, CMP #### [facility] [address] [place] [address] Dr. Rosangela Smyth Hemoglobin (Bld) [Mass/Vol] 10.4 g/dL Critically low 12.0-16.0 [facility] Comment on above: Performed By: #### L IPID, CMP #### [facility] [address] [place] [address] Dr. Rosangela Smyth IG # 0.03 10e3/ul Normal 0.00-0.03 [facility] Comment on above: Performed By: #### L IPID, CMP #### [facility] [address] [place] [address] Dr. Rosangela Smyth IG % 0.8 % Critically high 0.0-0.5 [facility] Comment on above: Performed By: #### L IPID, CMP #### [facility] [address] [place] [address] Dr. Rosangela Smyth LYMPH # 1.0 103/ul Critically low 1.2-3.8 [facility] Comment on above: Performed By: #### L IPID, CMP #### [facility] [address] [place] [address] Dr. Rosangela Smyth Lymphocytes/100 WBC (Bld) 26.4 % Normal 20.5-60.0 [facility] Comment on above: Performed By: #### L IPID, CMP #### [facility] [address] [place] [address] Dr. Rosangela Smyth MANUAL DIFF REQ NO Normal [facility] Comment on above: Performed By: #### L IPID, CMP #### [facility] [address] [place] [address] Dr. Rosangela Smyth MCH (RBC) [Entitic mass] 30.7 pg Normal 26.7-34.0 [facility] Comment on above: Performed By: #### L IPID, CMP #### [facility] [address] [place] [address] Dr. Rosangela Smyth MCHC (RBC) [Mass/Vol] 32.6 g/dL Normal 29.9-35.2 [facility] Comment on above: Performed By: #### L IPID, CMP #### [facility] [address] [place] [address] Dr. Rosangela Smyth MCV (RBC) [Entitic vol] 94.1 fL Normal 81.0-99.0 [facility] Comment on above: Performed By: #### L IPID, CMP #### [facility] [address] [place] [address] Dr. Rosangela Smyth MONO # 0.1 103/ul Critically low 0.3-0.8 [facility] Comment on above: Performed By: #### L IPID, CMP #### [facility] [address] [place] [address] Dr. Rosangela Smyth Monocytes/100 WBC (Bld) 3.2 % Normal 1.7-12.0 [facility] Comment on above: Performed By: #### L IPID, CMP #### [facility] [address] [place] [address] Dr. Rosangela Smyth NEUT # 2.5 103/ul Normal 1.4-6.5 [facility] Comment on above: Performed By: #### L IPID, CMP #### [facility] [address] [place] [address] Dr. Rosangela Smyth Neutrophils/100 WBC (Bld) 68.2 % Normal 43.0-75.0 [facility] Comment on above: Performed By: #### L IPID, CMP #### [facility] [address] [place] [address] Dr. Rosangela Smyth Platelet mean volume (Bld) [Entitic vol] 8.8 fL Critically low 9.5-13.5 [facility] Comment on above: Performed By: #### L IPID, CMP #### [facility] [address] [place] [address] Dr. Rosangela Smyth PLT 242 103/ul Normal 150-450 [facility] Comment on above: Performed By: #### L IPID, CMP #### [facility] [address] [place] [address] [address] [address] Rosangela Smyth RBC 3.39 106/ul Critically low 4.20-5.40 [facility] Comment on above: Performed By: #### L IPID, CMP #### [facility] [address] [place], [place] [address] Dr. Rosangela Smyth WBC 3.7 103/ul Critically low 4.0-11.0 [facility] Comment on above: Performed By: #### L IPID, CMP #### [facility] [address] [place], [place] [address] Dr. Rosangela Smyth CTA CHEST WO W [...] KWAN MADRID Date: 2022-09-23 01:51 Normal [facility] CULTURE BLOODon 09-23-2022 Microscopic examination of blood, culture Culture Observations: NO GROWTH AT 5 DAYS. Normal [facility] Comment on above: Performed By: #### L IPID, CMP #### [facility] [address] [place] [address] Dr. Rosangela Smyth Microscopic examination of blood, culture Culture Observations: NO GROWTH AT 5 DAYS. Normal [facility] Comment on above: Performed By: #### L IPID, CMP #### [facility] [address] [address] [address] Rosangela Smyth Covid-19 PCR ([facility])on 09-06 SARS-CoV-2 (COVID-19) RNA RICH+probe Ql (Unsp spec) Detected Abnormal NOT DETECTED [facility] Comment on above: Result Comment: This test is not yet approved or cleared by the [place] FDA. When there are no FDA-approved or cleared tests available, and other criteria are met, FDA can make tests available under an emergency access mechanism called an Emergency Use Authorization (EUA). The EUA for this test is supported by the [employer] Equipment Repairer of Health and Human Service's declaration that [...] used). Performed By: #### O BSCRN #### [facility] [address] [place] [address] Dr. Rosangela Smyth D-DIMERon 09-23-2022 D-DIMER 0.78 mg/L FEU Critically high <=0.59 [facility] Comment on above: Performed By: #### O BSCRN #### [facility] [address] [place] [address] Dr. Rosangela Smyth D-DIMER COMMENTS SEE BELOW Normal [facility] Comment on above: Result Comment: Incr eases [...] hospitalization. Performed By: #### O BSCRN #### [facility] [address] [address] [address] Rosangela EASLEY URINE PROFILEon 3 Bilirubin Ql (U) Negative Normal NEGATIVE [facility] Comment on above: Performed By: #### L IPID, CMP #### [facility] [address] [place] [address] Dr. Rosangela Smyth Clarity (U) CLEAR Normal CLEAR [facility] Comment on above: Performed By: #### L IPID, CMP #### [facility] [address] [place] [address] Dr. Rosangela Smyth Color (U) LT. YELLOW Normal YELLOW [facility] Comment on above: Performed By: #### L IPID, CMP #### [facility] [address] [place] [address] Dr. Rosangela ANAND A micrscopic examination will be performed if indicated. Normal [facility] Comment on above: Performed By: #### L IPID, CMP #### [facility] [address] [place] [address] Dr. Rosangela Smyth Glucose Ql (U) 250 mg/dl Abnormal NEGATIVE [facility] Comment on above: Performed By: #### L IPID, CMP #### [facility] [address] [place] [address] Dr. Rosangela Smyth Hemoglobin Ql (U) Negative Normal NEGATIVE [facility] Comment on above: Performed By: #### L IPID, CMP #### [facility] [address] [place] [address] Dr. Rosangela Smyth Ketones Ql (U) Negative Normal NEGATIVE [facility] Comment on above: Performed By: #### L IPID, CMP #### [facility] [address] [place] [address] Dr. Rosangela Smyth LEUKOCYTES Negative Normal NEGATIVE [facility] Comment on above: Performed By: #### L IPID, CMP #### [facility] [address] [place] [address] Dr. Rosangela Smyth Nitrite Ql (U) Negative Normal NEGATIVE [facility] Comment on above: Performed By: #### L IPID, CMP #### [facility] [address] [place] [address] Dr. Rosangela Smyth pH (U) 6.0 [pH] Normal 5-9 [facility] Comment on above: Performed By: #### L IPID, CMP #### [facility] [address] [place] [address] Dr. Rosangela Smyth SPEC GRAVITY 1.015 Normal 1.005-<=1.025 [facility] Comment on above: Performed By: #### L IPID, CMP #### [facility] [address] [place] [address] Dr. Rosangela Smyth UA PROTEIN TRACE Normal NEGATIVE/ TRACE [facility] Comment on above: Performed By: #### L IPID, CMP #### [facility] [address] [place] [address] Dr. Rosangela Smyth UR MICRO IND NOT INDICATED Normal [facility] Comment on above: Performed By: #### L IPID, CMP #### [facility] [address] [place] [address] Dr. Rosangela Smyth Urobilinogen Qn (U) 0.2 {Estevan'U}/dL Normal 0.2 - 1. 0 [facility] Comment on above: Performed By: #### L IPID, CMP #### [facility] [address] [place] [address] Dr. Rosangela Smyth INFLUENZA A AND B AGon 09-23 INFLUENZA A AG Negative Normal NEGATIVE SEE COMMENT [facility] Comment on above: Performed By: #### L IPID, CMP #### [facility] [address] [place] [address] Dr. Rosangela Smyth INFLUENZA B AG Negative Normal NEGATIVE SEE COMMENT [facility] Comment on above: Performed By: #### L IPID, CMP #### [facility] [address] [place] [address] Dr. Rosangela Smyth LACTATE/LACTIC ACIDon 2022 Lactate [Moles/Vol] 1.4 mmol/L Normal 0.4-1.9 [facility] Comment on above: Performed By: #### O BSCRN #### [facility] [address] [place] [address] Dr. Rosangela Smyth Lactate [Moles/Vol] 0.9 mmol/L Normal 0.4-1.9 [facility] Comment on above: Performed By: #### C BC #### [facility] [address] [place] [address] Dr. Rosangela Smyth Lactate [Moles/Vol] 1.4 mmol/L Normal 0.4-1.9 [facility] Comment on above: Performed By: #### L ACT #### [facility] [address] [place] [address] Dr. Rosangela Smyth POINT OF CARE GLUCOSEon 09-06 Glucose [Mass/Vol] 421 mg/dL Critically high 74-106 [facility] Comment on above: Performed By: #### O BSCRN #### [facility] [address] [place] [address] Dr. Rosangela Smyth PROF 14(COMP METB)on 023 Albumin [Mass/Vol] 2.7 g/dL Critically low 3.4-5.0 [facility] Comment on above: Performed By: #### O BSCRN #### [facility] [address] [place] [address] Dr. Rosangela Smyth Albumin/Globulin [Mass ratio] 0.7 {ratio} Normal [facility] Comment on above: Performed By: #### O BSCRN #### [facility] [address] [place] [address] Dr. Rosangela Smyth ALP [Catalytic activity/Vol] 76 U/L Normal 46-116 [facility] Comment on above: Performed By: #### O BSCRN #### [facility] [address] [place] [address] Dr. Rosangela Smyth ALT [Catalytic activity/Vol] 19 U/L Normal 14-59 [facility] Comment on above: Performed By: #### O BSCRN #### [facility] [address] [address] [address] Rosangela Smyth Anion gap [Moles/Vol] 11.9 mmol/L Normal [facility] Comment on above: Performed By: #### O BSCRN #### [facility] [address] [address] [address] Rosangela Smyth AST [Catalytic activity/Vol] 20 U/L Normal 15-37 [facility] Comment on above: Performed By: #### O BSCRN #### [facility] [address] [address] [address] Rosangela Smyth Bilirubin [Mass/Vol] 0.3 mg/dL Normal 0.2-1.0 [facility] Comment on above: Performed By: #### O BSCRN #### [facility] [address] [place] [address] Dr. Rosangela Smyth Calcium [Mass/Vol] 10.2 mg/dL Critically high 8.5-10.1 [facility] Comment on above: Performed By: #### O BSCRN #### [facility] [address] [place] [address] Dr. Rosangela Smyth Chloride [Moles/Vol] 103 mmol/L Normal 98-107 [facility] Comment on above: Performed By: #### O BSCRN #### [facility] [address] [place] [address] Dr. Rosangela Smyth CO2 [Moles/Vol] 23.7 mmol/L Normal 21.0-32.0 [facility] Comment on above: Performed By: #### O BSCRN #### [facility] [address] [place] [address] Dr. Rosangela Smyth Creatinine [Mass/Vol] 0.90 mg/dL Normal 0.55-1.02 [facility] Comment on above: Performed By: #### O BSCRN #### [facility] [address] [place] [address] Dr. Rosangela Smyth EGFR-AF [place] >60 Normal >=60 [facility] Comment on above: Performed By: #### O BSCRN #### [facility] [address] [address] [address] Rosangela Smyth EGFR-NON AF [place] >60 Normal >=60 [facility] Comment on above: Performed By: #### O BSCRN #### [facility] [address] [address] [address] Rosangela Smyth Globulin (S) [Mass/Vol] 3.9 g/dL Normal [facility] Comment on above: Performed By: #### O BSCRN #### [facility] [address] [address] [address] Rosangela Smyth Glucose [Mass/Vol] 237 mg/dL Critically high 74-106 [facility] Comment on above: Performed By: #### O BSCRN #### [facility] [address] [place] [address] Dr. Rosangela Smyth Potassium [Moles/Vol] 3.6 mmol/L Normal 3.5-5.1 [facility] Comment on above: Performed By: #### O BSCRN #### [facility] [address] [place] [address] Dr. Rosangela Smyth Protein [Mass/Vol] 6.6 g/dL Normal 6.4-8.2 [facility] Comment on above: Performed By: #### O BSCRN #### [facility] [address] [place] [address] Dr. Rosangela Smyth Sodium [Moles/Vol] 135 mmol/L Critically low 136-145 [facility] Comment on above: Performed By: #### O BSCRN #### [facility] [address] [place] [address] Dr. Rosangela Smyth Urea nitrogen [Mass/Vol] 11.0 mg/dL Normal 7.0-18.0 [facility] Comment on above: Performed By: #### O BSCRN #### [facility] [address] [place] [address] Dr. Rosangela Smyth Urea nitrogen/Creatinine [Mass ratio] 12.2 mg/mg Normal [facility] Comment on above: Performed By: #### O BSCRN #### [facility] [address] [address] [address] Rosangela Smyth PROF CHEM 8 (BAS METB)on Anion gap [Moles/Vol] 10.7 mmol/L Normal [facility] Comment on above: Performed By: #### L IPID, CMP #### [facility] [address] [address] [address] Rosangela Smyth Calcium [Mass/Vol] 10.3 mg/dL Critically high 8.5-10.1 [facility] Comment on above: Performed By: #### L IPID, CMP #### [facility] [address] [address] [address] Rosangela Smyth Chloride [Moles/Vol] 97 mmol/L Critically low 98-107 [facility] Comment on above: Performed By: #### L IPID, CMP #### [facility] [address] [place] [address] Dr. Rosangela Smyth CO2 [Moles/Vol] 26.1 mmol/L Normal 21.0-32.0 [facility] Comment on above: Performed By: #### L IPID, CMP #### [facility] [address] [address] [address] Rosangela Smyth Creatinine [Mass/Vol] 1.05 mg/dL Critically high 0.55-1.02 [facility] Comment on above: Performed By: #### L IPID, CMP #### [facility] [address] [place] [address] Dr. Rosangela Smyth EGFR-AF [place] >60 Normal >=60 [facility] Comment on above: Performed By: #### L IPID, CMP #### [facility] [address] [place] [address] Dr. Rosangela Smyth EGFR-NON AF [place] 54 mL/min/1.73m2 Critically low >=60 [facility] Comment on above: Performed By: #### L IPID, CMP #### [facility] [address] [place] [address] Dr. Rosagnela Smyth Glucose [Mass/Vol] 255 mg/dL Critically high 74-106 [facility] Comment on above: Performed By: #### L IPID, CMP #### [facility] [address] [address] [address] Rosangela Smyth Potassium [Moles/Vol] 3.8 mmol/L Normal 3.5-5.1 [facility] Comment on above: Performed By: #### L IPID, CMP #### [facility] [address] [address] [address] Rosangela Smyth Sodium [Moles/Vol] 130 mmol/L Critically low 136-145 [facility] Comment on above: Performed By: #### L IPID, CMP #### [facility] [address] [address] [address] Rosangela Smyth Urea nitrogen [Mass/Vol] 18.0 mg/dL Normal 7.0-18.0 [facility] Comment on above: Performed By: #### L IPID, CMP #### [facility] [address] [address] [address] Rosangela Smyth Urea nitrogen/Creatinine [Mass ratio] 17.1 mg/mg Normal [facility] Comment on above: Performed By: #### L IPID, CMP #### [facility] [address] [address] [address] Rosangela Smyth XR CHEST 1 Von [...] by: JUSTINA CURRAN Date: 2022-09-23 16:33 Normal [facility] XR CHEST 1 V XR CHEST [...] RAUL MARVIN Date: 2022-09-23 00:05 Normal [facility] CARDIAC CRYSTAL ADMITon 023 CK [Catalytic activity/Vol] 44 U/L Normal 26-192 [facility] Comment on above: Performed By: #### C NERIS, CMADM #### [facility] [address] [place] [address] Dr. Rosangela Smyth CK.MB [Mass/Vol] ng/mL Normal <=3.60 [facility] Comment on above: Performed By: #### C NERIS, YULIANADM #### [facility] [address] [place] [address] Dr. Rosangela Smyth HSTROP 6.3 pg/mL Normal 4.0-51.3 [facility] Comment on above: Result Comment: CUT- OFF POINTS HAVE BEEN ESTABLISHED BASED ON THE FOURTH UNIVERSAL DEFINITIONS OF MYOCARDIAL INFARCTION. THE UPPER REFERENCE LIMIT (URL) OF TROPONIN, DEFINED THE 99TH PERCENTILE OF cTnI DISTRIBUTION IN A REFERENCE POPULATION, HAS BEEN CONFIRMED THE DECISION THRESHOLD FOR MD DIAGNOSIS. Performed By: #### C NERIS, YULIANADM #### [facility] [address] [place] [address] Dr. Rosangela Smyth JOVAN 39 ng/mL Normal 9-82 [facility] Comment on above: Performed By: #### C NERIS, CMADM #### [facility] [address] [place] [address] Dr. Rosangela Smyth CBC AUTO DIFFon 09-12-2022 BASO # 0.0 103/ul Normal 0.0-0.1 [facility] Comment on above: Performed By: #### L ACT #### [facility] [address] [place] [address] Dr. Rosangela Smyth Basophils/100 WBC (Bld) 0.3 % Normal 0.2-2.0 [facility] Comment on above: Performed By: #### L ACT #### [facility] [address] [place] [address] Dr. Rosangela Smyth EO # 0.1 103/ul Normal 0.0-0.7 [facility] Comment on above: Performed By: #### L ACT #### [facility] [address] [place] [address] Dr. Rosangela Smyth Eosinophils/100 WBC (Bld) 1.4 % Normal 0.9-7.0 [facility] Comment on above: Performed By: #### L ACT #### [facility] [address] [place] [address] Dr. Rosangela Smyth Erythrocyte distribution width (RBC) [Ratio] 16.1 % Critically high 11.0-15.0 [facility] Comment on above: Performed By: #### L ACT #### [facility] [address] [place] [address] Dr. Rosangela Smyth Hematocrit (Bld) [Volume fraction] 27.6 % Critically low 36.0-48.0 [facility] Comment on above: Performed By: #### L ACT #### [facility] [address] [place] [address] Dr. Rosangela Smyth Hemoglobin (Bld) [Mass/Vol] 9.2 g/dL Critically low 12.0-16.0 [facility] Comment on above: Performed By: #### L ACT #### [facility] [address] [place] [address] Dr. Rosangela Smyth IG # 0.01 10e3/ul Normal 0.00-0.03 [facility] Comment on above: Performed By: #### L ACT #### [facility] [address] [place] [address] Dr. Rosangela Smyth IG % 0.3 % Normal 0.0-0.5 [facility] Comment on above: Performed By: #### L ACT #### [facility] [address] [place] [address] Dr. Rosangela Smyth LYMPH # 0.6 103/ul Critically low 1.2-3.8 [facility] Comment on above: Performed By: #### L ACT #### [facility] [address] [place] [address] Dr. Rosangela Smyth Lymphocytes/100 WBC (Bld) 17.1 % Critically low 20.5-60.0 [facility] Comment on above: Performed By: #### L ACT #### [facility] [address] [place] [address] Dr. Rosangela Smyth MANUAL DIFF REQ NO Normal [facility] Comment on above: Performed By: #### L ACT #### [facility] [address] [place] [address] Dr. Rosangela Smyth MCH (RBC) [Entitic mass] 30.6 pg Normal 26.7-34.0 [facility] Comment on above: Performed By: #### L ACT #### [facility] [address] [place] [address] Dr. Rosangela Smyth MCHC (RBC) [Mass/Vol] 33.3 g/dL Normal 29.9-35.2 [facility] Comment on above: Performed By: #### L ACT #### [facility] [address] [place] [address] Dr. Rosangela Smyth MCV (RBC) [Entitic vol] 91.7 fL Normal 81.0-99.0 [facility] Comment on above: Performed By: #### L ACT #### [facility] [address] [place] [address] Dr. Rosangela Smyth MONO # 0.4 103/ul Normal 0.3-0.8 [facility] Comment on above: Performed By: #### L ACT #### [facility] [address] [place] [address] Dr. Rosangela Smyth Monocytes/100 WBC (Bld) 10.0 % Normal 1.7-12.0 [facility] Comment on above: Performed By: #### L ACT #### [facility] [address] [place] [address] Dr. Rosangela Smyth NEUT # 2.6 103/ul Normal 1.4-6.5 [facility] Comment on above: Performed By: #### L ACT #### [facility] [address] [address] [address] Rosangela Smyth Neutrophils/100 WBC (Bld) 70.9 % Normal 43.0-75.0 [facility] Comment on above: Performed By: #### L ACT #### [facility] [address] [address] [address] Rosangela Smyth Platelet mean volume (Bld) [Entitic vol] 8.2 fL Critically low 9.5-13.5 [facility] Comment on above: Performed By: #### L ACT #### [facility] [address] [address] [address] Rosangela Smyth PLT 277 103/ul Normal 150-450 [facility] Comment on above: Performed By: #### L ACT #### [facility] [address] [place] [address] Dr. Rosangela Smyth RBC 3.01 106/ul Critically low 4.20-5.40 [facility] Comment on above: Performed By: #### L ACT #### [facility] [address] [address] [address] Rosangela Smyth WBC 3.7 103/ul Critically low 4.0-11.0 [facility] Comment on above: Performed By: #### L ACT #### [facility] [address] [place] [address] Dr. Rosangela Smyth GROUP A STREP CULTUREon S. pyogenes Ag Ql (Unsp spec) Culture Observations: NEGATIVE FOR GROUP A STREPTOCOCCUS. Normal [facility] Comment on above: Performed By: #### L ACT #### [facility] [address] [place] [address] Dr. Rosangela Smyth PROF 14(COMP METB)on 023 Albumin [Mass/Vol] 3.8 g/dL Normal 3.4-5.0 [facility] Comment on above: Performed By: #### C MP, YULIANADM #### [facility] [address] [place] [address] Dr. Rosangela Smyth Albumin/Globulin [Mass ratio] 1.1 {ratio} Normal [facility] Comment on above: Performed By: #### C MP, CMADM #### [facility] [address] [address] [address] Rosangela Smyth ALP [Catalytic activity/Vol] 88 U/L Normal 46-116 [facility] Comment on above: Performed By: #### C MP, CMADM #### [facility] [address] [address] [address] Rosangela Smyth ALT [Catalytic activity/Vol] 31 U/L Normal 14-59 [facility] Comment on above: Performed By: #### C MP, CMADM #### [facility] [address] [address] [address] Rosangela Smyth Anion gap [Moles/Vol] 10.2 mmol/L Normal [facility] Comment on above: Performed By: #### C MP, CMADM #### [facility] [address] [address] [address] Rosangela Smyth AST [Catalytic activity/Vol] 24 U/L Normal 15-37 [facility] Comment on above: Performed By: #### C MP, CMADM #### [facility] [address] [address] [address] Rosangela Smyth Bilirubin [Mass/Vol] 0.3 mg/dL Normal 0.2-1.0 [facility] Comment on above: Performed By: #### C MP, CMADM #### [facility] [address] [address] [address] Rosangela Smyth Calcium [Mass/Vol] 11.1 mg/dL Critically high 8.5-10.1 [facility] Comment on above: Performed By: #### C MP, CMADM #### [facility] [address] [address] [address] Rosangela Smyth Chloride [Moles/Vol] 101 mmol/L Normal 98-107 [facility] Comment on above: Performed By: #### C MP, CMADM #### [facility] [address] [address] [address] Rosangela Smyth CO2 [Moles/Vol] 26.4 mmol/L Normal 21.0-32.0 [facility] Comment on above: Performed By: #### C MP, CMADM #### [facility] [address] [address] [address] Rosangela Smyth Creatinine [Mass/Vol] 1.15 mg/dL Critically high 0.55-1.02 [facility] Comment on above: Performed By: #### C MP, CMADM #### [facility] [address] [address] [address] Rosangela Smyth EGFR-AF [place] 59 mL/min/1.73m2 Critically low >=60 [facility] Comment on above: Performed By: #### C MP, CMADM #### [facility] [address] [place] [address] Dr. Rosangela Smyth EGFR-NON AF [place] 48 mL/min/1.73m2 Critically low >=60 [facility] Comment on above: Performed By: #### C MP, CMADM #### [facility] [address] [place] [address] Dr. Rosangela Smyth Globulin (S) [Mass/Vol] 3.6 g/dL Normal [facility] Comment on above: Performed By: #### C MP, CMADM #### [facility] [address] [place] [address] Dr. Rosangela Smyth Glucose [Mass/Vol] 174 mg/dL Critically high 74-106 [facility] Comment on above: Performed By: #### C MP, CMADM #### [facility] [address] [place] [address] Dr. Rosangela Smyth Potassium [Moles/Vol] 4.6 mmol/L Normal 3.5-5.1 [facility] Comment on above: Performed By: #### C MP, CMADM #### [facility] [address] [place] [address] Dr. Rosangela Smyth Protein [Mass/Vol] 7.4 g/dL Normal 6.4-8.2 [facility] Comment on above: Performed By: #### C MP, CMADM #### [facility] [address] [place] [address] Dr. Rosangela Smyth Sodium [Moles/Vol] 133 mmol/L Critically low 136-145 [facility] Comment on above: Performed By: #### C NERIS, VIRAL #### [facility] [address] [address] [address] Rosangela Smyth Urea nitrogen [Mass/Vol] 14.0 mg/dL Normal 7.0-18.0 [facility] Comment on above: Performed By: #### C NERIS, VIRAL #### [facility] [address] [address] [address] Rosangela Smyth Urea nitrogen/Creatinine [Mass ratio] 12.2 mg/mg Normal [facility] Comment on above: Performed By: #### C NERIS, YULIANADM #### [facility] [address] [address] [address] Rosangela Smyth STREPT SCREENon 09-12-2022 STREP SCREEN A Negative Normal NEGATIVE [facility] Comment on above: Performed By: #### L ACT #### [facility] [address] [address] [address] Rosangela Smyth XR CHEST 1 Von [...] by: LINNETTE AVENDANO Date: 2022-09-12 13:23 Normal [facility] Progress Noteson 09-03-2022 [employer] Supervisor Authentication Interface Message Text EMERGENCY TRIAGE, TREAT AND TRANSPORT (ET3) DOCUMENTATION OF TELEHEALTH VISIT Date / Time: 03/18/2022 / 15:00 Name: Kaya Schilling : 1965 SSN: (Not on file) EMS Agency: [facility] [x] Verbal consent obtained [] Implied [...] Completed by: Devon Hays MD Normal [facility] [employer] [facility] AMYLASEon 07-08-2022 Amylase [Catalytic activity/Vol] 49 U/L Normal 25-115 [facility] Comment on above: Performed By: #### C BC #### [facility] [address] [place] [address] Dr. Rosangela Smyth CBC AUTO DIFFon 07-08-2022 BASO # 0.0 103/ul Normal 0.0-0.1 [facility] Comment on above: Performed By: #### O BSCRN #### [facility] [address] [place] [address] Dr. Rosangela Smyth Basophils/100 WBC (Bld) 0.4 % Normal 0.2-2.0 [facility] Comment on above: Performed By: #### O BSCRN #### [facility] [address] [place] [address] Dr. Rosangela Smyth EO # 0.2 103/ul Normal 0.0-0.7 [facility] Comment on above: Performed By: #### O BSCRN #### [facility] [address] [place] [address] Dr. Rosangela Smyth Eosinophils/100 WBC (Bld) 4.4 % Normal 0.9-7.0 [facility] Comment on above: Performed By: #### O BSCRN #### [facility] [address] [place] [address] Dr. Rosangela Smyth Erythrocyte distribution width (RBC) [Ratio] 17.9 % Critically high 11.0-15.0 [facility] Comment on above: Performed By: #### O BSCRN #### [facility] [address] [place] [address] Dr. Rosangela mSyth Hematocrit (Bld) [Volume fraction] 30.4 % Critically low 36.0-48.0 [facility] Comment on above: Performed By: #### O BSCRN #### [facility] [address] [place] [address] Dr. Rosangela Smyth Hemoglobin (Bld) [Mass/Vol] 9.6 g/dL Critically low 12.0-16.0 [facility] Comment on above: Performed By: #### O BSCRN #### [facility] [address] [place] [address] Dr. Rosangela Smyth IG # 0.02 10e3/ul Normal 0.00-0.03 [facility] Comment on above: Performed By: #### O BSCRN #### [facility] [address] [place] [address] Dr. Rosangela Smyth IG % 0.4 % Normal 0.0-0.5 [facility] Comment on above: Performed By: #### O BSCRN #### [facility] [address] [place] [address] Dr. Rosangela Smyth LYMPH # 1.4 103/ul Normal 1.2-3.8 [facility] Comment on above: Performed By: #### O BSCRN #### [facility] [address] [place] [address] Dr. Rosangela Smyth Lymphocytes/100 WBC (Bld) 28.6 % Normal 20.5-60.0 [facility] Comment on above: Performed By: #### O BSCRN #### [facility] [address] [place] [address] Dr. Rosangela Smyth MANUAL DIFF REQ NO Normal [facility] Comment on above: Performed By: #### O BSCRN #### [facility] [address] [place] [address] Dr. Rosangela Smyth MCH (RBC) [Entitic mass] 30.8 pg Normal 26.7-34.0 [facility] Comment on above: Performed By: #### O BSCRN #### [facility] [address] [place] [address] Dr. Rosangela Smyth MCHC (RBC) [Mass/Vol] 31.6 g/dL Normal 29.9-35.2 [facility] Comment on above: Performed By: #### O BSCRN #### [facility] [address] [place] [address] Dr. Rosangela Smyth MCV (RBC) [Entitic vol] 97.4 fL Normal 81.0-99.0 [facility] Comment on above: Performed By: #### O BSCRN #### [facility] [address] [place] [address] Dr. Rosangela Smyth MONO # 0.3 103/ul Normal 0.3-0.8 [facility] Comment on above: Performed By: #### O BSCRN #### [facility] [address] [address] [address] Rosangela Smyth Monocytes/100 WBC (Bld) 6.6 % Normal 1.7-12.0 [facility] Comment on above: Performed By: #### O BSCRN #### [facility] [address] [place] [address] Dr. Rosangela Smyth NEUT # 3.0 103/ul Normal 1.4-6.5 [facility] Comment on above: Performed By: #### O BSCRN #### [facility] [address] [place] [address] Dr. Rosangela Smyth Neutrophils/100 WBC (Bld) 59.6 % Normal 43.0-75.0 [facility] Comment on above: Performed By: #### O BSCRN #### [facility] [address] [place] [address] Dr. Rosangela Smyth Platelet mean volume (Bld) [Entitic vol] 8.6 fL Critically low 9.5-13.5 [facility] Comment on above: Performed By: #### O BSCRN #### [facility] [address] [place] [address] Dr. Rosangela Smyth PLT 351 103/ul Normal 150-450 [facility] Comment on above: Performed By: #### O BSCRN #### [facility] [address] [place] [address] Dr. Rosangela Smyth RBC 3.12 106/ul Critically low 4.20-5.40 [facility] Comment on above: Performed By: #### O BSCRN #### [facility] [address] [place] [address] Dr. Rosangela Smyth WBC 5.0 103/ul Normal 4.0-11.0 [facility] Comment on above: Performed By: #### O BSCRN #### [facility] [address] [place] [address] Dr. Rosangela Smyth Covid-19 PCR ([facility])on SARS-CoV-2 (COVID-19) RNA RCIH+probe Ql (Unsp spec) Not detected Normal NOT DETECTED [facility] Comment on above: Result Comment: When diagnostic [...] for this test is supported by the [employer] Equipment Repairer of Health and Human Service's declaration that [...] Performed By: #### L IPID, CMP #### [facility] [address] [place] [address] Dr. Rosangela Smyth ER URINE PROFILEon 2 Bilirubin Ql (U) Negative Normal NEGATIVE [facility] Comment on above: Performed By: #### L IPID, CMP #### [facility] [address] [place] [address] Dr. Rosangela Smyth Clarity (U) CLEAR Normal CLEAR [facility] Comment on above: Performed By: #### L IPID, CMP #### [facility] [address] [place] [address] Dr. Rosangela Smyth Color (U) LT. YELLOW Normal YELLOW [facility] Comment on above: Performed By: #### L IPID, CMP #### [facility] [address] [place] [address] Dr. Rosangela ANAND A micrscopic examination will be performed if indicated. Normal [facility] Comment on above: Performed By: #### L IPID, CMP #### [facility] [address] [place] [address] Dr. Rosangela Smyth Glucose Ql (U) Negative Normal NEGATIVE [facility] Comment on above: Performed By: #### L IPID, CMP #### [facility] [address] [address] [address] Rosangela Smyth Hemoglobin Ql (U) Negative Normal NEGATIVE [facility] Comment on above: Performed By: #### L IPID, CMP #### [facility] [address] [place] [address] Dr. Rosangela Smyth Ketones Ql (U) Negative Normal NEGATIVE [facility] Comment on above: Performed By: #### L IPID, CMP #### [facility] [address] [place] [address] Dr. Rosangela Smyth LEUKOCYTES Negative Normal NEGATIVE [facility] Comment on above: Performed By: #### L IPID, CMP #### [facility] [address] [place] [address] Dr. Rosangela Smyth Nitrite Ql (U) Negative Normal NEGATIVE [facility] Comment on above: Performed By: #### L IPID, CMP #### [facility] [address] [place] [address] Dr. Rosangela Smyth pH (U) 6.0 [pH] Normal 5-9 [facility] Comment on above: Performed By: #### L IPID, CMP #### [facility] [address] [place] [address] Dr. Rosangela Smyth SPEC GRAVITY 1.010 Normal 1.005-<=1.025 [facility] Comment on above: Performed By: #### L IPID, CMP #### [facility] [address] [place] [address] Dr. Rosangela Smyth UA PROTEIN Negative Normal NEGATIVE/ TRACE [facility] Comment on above: Performed By: #### L IPID, CMP #### [facility] [address] [place] [address] Dr. Rosangela Smyth UR MICRO IND NOT INDICATED Normal [facility] Comment on above: Performed By: #### L IPID, CMP #### [facility] [address] [place] [address] Dr. Rosangela Smyth Urobilinogen Qn (U) 0.2 {Estevan'U}/dL Normal 0.2 - 1. 0 [facility] Comment on above: Performed By: #### L IPID, CMP #### [facility] [address] [place] [address] Dr. Rosangela Smyth LIPASEon 07-08-2022 Lipase [Catalytic activity/Vol] 89.0 U/L Normal 73.0-393.0 [facility] Comment on above: Performed By: #### L ACT #### [facility] [address] [place] [address] Dr. Rosangela Smyth PROF 14(COMP METB)on 022 Albumin [Mass/Vol] 3.9 g/dL Normal 3.4-5.0 [facility] Comment on above: Performed By: #### C BC #### [facility] [address] [place] [address] Dr. Rosangela Smyth Albumin/Globulin [Mass ratio] 1.1 {ratio} Normal [facility] Comment on above: Performed By: #### C BC #### [facility] [address] [place] [address] Dr. Rosangela Smyth ALP [Catalytic activity/Vol] 86 U/L Normal 46-116 [facility] Comment on above: Performed By: #### C BC #### [facility] [address] [place] [address] Dr. Rosangela Smyth ALT [Catalytic activity/Vol] 22 U/L Normal 14-59 [facility] Comment on above: Performed By: #### C BC #### [facility] [address] [place] [address] Dr. Rosangela Smyth Anion gap [Moles/Vol] 10.1 mmol/L Normal [facility] Comment on above: Performed By: #### C BC #### [facility] [address] [place] [address] Dr. Rosangela Smyth AST [Catalytic activity/Vol] 15 U/L Normal 15-37 [facility] Comment on above: Performed By: #### C BC #### [facility] [address] [place] [address] Dr. Rosangela Smyth Bilirubin [Mass/Vol] 0.3 mg/dL Normal 0.2-1.0 [facility] Comment on above: Performed By: #### C BC #### [facility] [address] [place] [address] Dr. Rosangela Smyth Calcium [Mass/Vol] 11.8 mg/dL Critically high 8.5-10.1 [facility] Comment on above: Performed By: #### C BC #### [facility] [address] [address] [address] Rosangela Smyth Chloride [Moles/Vol] 104 mmol/L Normal 98-107 [facility] Comment on above: Performed By: #### C BC #### [facility] [address] [place] [address] Dr. Rosangela Smyth CO2 [Moles/Vol] 28.4 mmol/L Normal 21.0-32.0 [facility] Comment on above: Performed By: #### C BC #### [facility] [address] [place] [address] Dr. Rosangela Smyth Creatinine [Mass/Vol] 0.84 mg/dL Normal 0.55-1.02 [facility] Comment on above: Performed By: #### C BC #### [facility] [address] [place] [address] Dr. Rosangela Smyth EGFR-AF [place] >60 Normal >=60 [facility] Comment on above: Performed By: #### C BC #### [facility] [address] [place] [address] Dr. Rosangela Smyth EGFR-NON AF [place] >60 Normal >=60 [facility] Comment on above: Performed By: #### C BC #### [facility] [address] [place] [address] Dr. Rosangela Smyth Globulin (S) [Mass/Vol] 3.7 g/dL Normal [facility] Comment on above: Performed By: #### C BC #### [facility] [address] [place] [address] Dr. Rosangela Smyth Glucose [Mass/Vol] 82 mg/dL Normal 74-106 [facility] Comment on above: Performed By: #### C BC #### [facility] [address] [address] [address] Rosangela Smyth Potassium [Moles/Vol] 4.5 mmol/L Normal 3.5-5.1 [facility] Comment on above: Performed By: #### C BC #### [facility] [address] [address] [address] Rosangela Smyth Protein [Mass/Vol] 7.6 g/dL Normal 6.4-8.2 [facility] Comment on above: Performed By: #### C BC #### [facility] [address] [address] [address] Rosangela Smyth Sodium [Moles/Vol] 138 mmol/L Normal 136-145 [facility] Comment on above: Performed By: #### C BC #### [facility] [address] [place] [address] Dr. Rosangela Smyth Urea nitrogen [Mass/Vol] 10.0 mg/dL Normal 7.0-18.0 [facility] Comment on above: Performed By: #### C BC #### [facility] [address] [address] [address] Rosangela Smyth Urea nitrogen/Creatinine [Mass ratio] 11.9 mg/mg Normal [facility] Comment on above: Performed By: #### C BC #### [facility] [address] [place] [address] Dr. Rosangela Smyth TROPONIN, HIGH SENSITIVITYon 07-08-2022 HSTROP 7.7 pg/mL Normal 4.0-51.3 [facility] Comment on above: Result Comment: CUT- OFF POINTS HAVE BEEN ESTABLISHED BASED ON THE FOURTH UNIVERSAL DEFINITIONS OF MYOCARDIAL INFARCTION. THE UPPER REFERENCE LIMIT (URL) OF TROPONIN, DEFINED THE 99TH PERCENTILE OF cTnI DISTRIBUTION IN A REFERENCE POPULATION, HAS BEEN CONFIRMED THE DECISION THRESHOLD FOR MD DIAGNOSIS. Performed By: #### L ACT #### [facility] [address] [address] [address] Rosangela Bailey 07-03-2022 [facility] Telephone ([facility]) KAYA SCHILLING ([id number]) 1965 F Date Time Provider Department 07/03/22 [...] Encounter Status:Closed by REJI JANE on 07/08/22 [facility] KAYA SCHILLING ([id number]) 1965 F Date Time Provider Department 06/04/22 KAREL SAM During your visit today, we recorded the following information about you: Hanna Perdomo Pss 06/04/2022 8:30 AM Signed Per Answering Service message patient called requested to cancel this appointment and stated she will call us back to reschedule. Hanna Perdomo [facility] Roberta Youngradha 06/04/2022 3:23 PM Signed Patient [...] Encounter Status:Closed by HANNA KNAPP [facility] KAYA SCHILLING ([id number]) 1965 F Date Time Provider Department 06/04/22 [employer] LYNETTE KEISHA During your visit today, we recorded the following information about you: [facility] [facility] 06/04/2022 11:51 AM Signed 1st report of [...] Fully Assessed Reason for Visit: Benefits Investigation [0828] Prescriptions as of 06/04/2022 - zolpidem (AMBIEN) [...] Encounter Status:Closed by LOGAN HOYT on 06/04/22 [facility] 05-29-2022 LUPILLON Telephone (HEMASA) KAYA SCHILLING ([id number]) 1965 F Date Time Provider Department 05/29/22 [...] Encounter Status:Closed by JACKIE SILVERIO on 05/29/22 [facility] 05-26-2022 CNPN Telephone (TRISTIN) KAYA SCHILLING ([id number]) 1965 F Date Time Provider Department 05/26/22 [...] [D64.9] Order(s):COMP METABOLIC PANEL [SQCMP] Order #: [id number] FUTURE IRON + TIBC [SQIRON] Order #: [id number] FUTURE CBC + DIFF [SQCBCDIF] Order #: [id number] FUTURE FERRITIN BLD [SQFERR] Order #: [id number] FUTURE Prescriptions as of 06/04/2022 - zolpidem [...] *05/25/2022 Encounter Status:Closed by KOCHDecember on 06/04/22 [facility] 05-25-2022 LUPILLON Telephone (HEMJUSTINA) KAAY SCHILLING ([id number]) 1965 F Date Time Provider Department 05/25/22 [...] in your box Reji Jane [facility] 05/25/2022 2:18 PM Signed Appointments moved to next (06/04). Called pt, no answer, LMOV. Yvonne Rivera [facility] 05/25/2022 3:12 PM Signed Records faxed to [facility] Gastro. Hanna Perdomo [facility] 05/28/2022 2:29 PM Signed Called [facility] Saad spoke with Luisa. She states they have received this referral and their community services coordinator will be calling patient soon to schedule. Hanna Perdomo Pss Hanna Perdomo Pss 06/03/2022 2:11 PM Signed Called Amada Nash spoke with Luisa. She states their office is in process of calling patient to schedule. Hanna Perdomo [facility] Hanna Perdomo [facility] 06/08/2022 2:39 PM Signed Called Amada Nash spoke with Luisa. She states they have called and left patient message to call their office back to get scheduled. They are waiting for patient to call them back. Hanna Perdomo [facility] Hanna Perdomo [facility] 06/15/2022 2:39 PM Signed Called Amada Nash [...] at this time. Hanna Perdomo [facility] Allergies As of Date: 05/25/2022 Noted Allergy [...] Resolved Anemi (more content not included)... Normal [facility] CBC W Auto Differential pane l (Bld)on 05-22-2022 Basophils (Bld) [#/Vol] 0.03 10*3/uL Normal <0.11 [facility] Comment on above: Order Comment: Speci men Type: BLOOD SPECIMEN Ordering Facility: [facility] Address: [address] [place] [address] Performed By: #### S ERIMM #### [facility] CLIA [id number] [address] [place] [address] [place] Basophils/100 WBC (Bld) 0.5 % Normal [facility] Comment on above: Order Comment: Speci men Type: BLOOD SPECIMEN Ordering Facility: [facility] Address: [address] [place] [address] Performed By: #### S ERIMM #### [facility] CLIA [id number] [address] [place] [address] [place] Differential cell count method Nom (Bld) Auto Normal [facility] Comment on above: Order Comment: Speci men Type: BLOOD SPECIMEN Ordering Facility: [facility] Address: [address] [place] [address] Performed By: #### S ERIMM #### [facility] CLIA [id number] [address] [place] [address] [place] Eosinophils (Bld) [#/Vol] 0.26 10*3/uL Normal <0.46 [facility] Comment on above: Order Comment: Speci men Type: BLOOD SPECIMEN Ordering Facility: [facility] Address: [address] [place] [address] Performed By: #### S ERIMM #### [facility] CLIA [id number] [address] [place] [address] [place] Eosinophils/100 WBC (Bld) 4.5 % Normal [facility] Comment on above: Order Comment: Speci men Type: BLOOD SPECIMEN Ordering Facility: [facility] Address: [address] [place], [place] [phone] Performed By: #### S ERIMM #### [facility] CLIA [id number] [address] [place] [address] [place] Erythrocyte distribution width (RBC) [Ratio] 18.1 % High 11.5-15.0 [facility] Comment on above: Order Comment: Speci men Type: BLOOD SPECIMEN Ordering Facility: [facility] Address: [address] [place], [place] [id number] Performed By: #### S ERIMM #### [facility] CLIA [id number] [address] [place] [address] [place] Hematocrit (Bld) [Volume fraction] 30.1 % Low 36.0-46.0 [facility] Comment on above: Order Comment: Speci men Type: BLOOD SPECIMEN Ordering Facility: [facility] Address: [address] [place], [place] [phone] Performed By: #### S ERIMM #### [facility] CLIA [id number] [address] [place] [address] [place] Hemoglobin (Bld) [Mass/Vol] 9.3 g/dL Low 11.5-15.5 [facility] Comment on above: Order Comment: Speci men Type: BLOOD SPECIMEN Ordering Facility: [facility] Address: [address] [place] [address] Performed By: #### S ERIMM #### [facility] CLIA [id number] [address] [place] [address] [place] IMMATURE GRAN % 0.2 % Normal [facility] Comment on above: Order Comment: Speci men Type: BLOOD SPECIMEN Ordering Facility: [facility] Address: [address] [place] [address] Performed By: #### S ERIMM #### [facility] CLIA [id number] [address] [place] [address] [place] IMMATURE GRAN ABS <0.03 Normal <0.10 [facility] Comment on above: Order Comment: Speci men Type: BLOOD SPECIMEN Ordering Facility: [facility] Address: [address] [place] [address] Performed By: #### S ERIMM #### [facility] CLIA [id number] [address] [place] [address] [place] Lymphocytes (Bld) [#/Vol] 1.40 10*3/uL Normal 1.00-4.00 [facility] Comment on above: Order Comment: Speci men Type: BLOOD SPECIMEN Ordering Facility: [facility] Address: [address] [place] [address] Performed By: #### S ERIMM #### [facility] CLIA [id number] [address] [place] [address] [place] Lymphocytes/100 WBC (Bld) 24.1 % Normal [facility] Comment on above: Order Comment: Speci men Type: BLOOD SPECIMEN Ordering Facility: [facility] Address: [address] [place], [place] [id number] Performed By: #### S ERIMM #### [facility] CLIA [id number] [address] [place] [address] MCH (RBC) [Entitic mass] 29.5 pg Normal 26.0-34.0 [facility] Comment on above: Order Comment: Speci men Type: BLOOD SPECIMEN Ordering Facility: [facility] Address: [address] [place], [place] [id number] Performed By: #### S ERIMM #### [facility] [place] [id number] [address] [place] [address] [place] MCHC (RBC) [Mass/Vol] 30.9 g/dL Normal 30.5-36.0 [facility] Comment on above: Order Comment: Speci men Type: BLOOD SPECIMEN Ordering Facility: [facility] Address: [address] [place], [place] [phone] Performed By: #### S ERIMM #### [facility] [place] [id number] [address] [place] [address] [place] MCV (RBC) [Entitic vol] 95.6 fL Normal 80.0-100.0 [facility] Comment on above: Order Comment: Speci men Type: BLOOD SPECIMEN Ordering Facility: [facility] Address: [address] [place], [place] [id number] Performed By: #### S ERIMM #### [facility] CLIA [id number] [address] [place] [address] [place] Monocytes (Bld) [#/Vol] 0.36 10*3/uL Normal <0.87 [facility] Comment on above: Order Comment: Speci men Type: BLOOD SPECIMEN Ordering Facility: [facility] Address: [address] [place], [place] [id number] Performed By: #### S ERIMM #### [facility] CLIA [id number] [address] [place] [address] [place] Monocytes/100 WBC (Bld) 6.2 % Normal [facility] Comment on above: Order Comment: Speci men Type: BLOOD SPECIMEN Ordering Facility: [facility] Address: [address] [place] [address] Performed By: #### S ERIMM #### [facility] CLIA [id number] [address] [place] [address] [place] Neutrophils (Bld) [#/Vol] 3.76 10*3/uL Normal 1.45-7.50 [facility] Comment on above: Order Comment: Speci men Type: BLOOD SPECIMEN Ordering Facility: [facility] Address: [address] [place] [address] Performed By: #### S ERIMM #### [facility] CLIA [id number] [address] [place] [address] [place] Neutrophils/100 WBC (Bld) 64.5 % Normal [facility] Comment on above: Order Comment: Speci men Type: BLOOD SPECIMEN Ordering Facility: [facility] Address: [address] [place], [place] [id number] Performed By: #### S ERIMM #### [facility] CLIA [id number] [address] [place] [address] [place] Nucleated RBC (Bld) [#/Vol] 10*3/uL Normal <0.01 [facility] Comment on above: Order Comment: Speci men Type: BLOOD SPECIMEN Ordering Facility: [facility] Address: [address] [place], [place] [address] Performed By: #### S ERIMM #### [facility] CLIA [id number] [address] [place] [address] [place] Nucleated RBC/100 WBC (Bld) [Ratio] 0.0 /100 WBC Normal [facility] Comment on above: Order Comment: Speci men Type: BLOOD SPECIMEN Ordering Facility: [facility] Address: [address] [place], [place] [address] Performed By: #### S ERIMM #### [facility] CLIA [id number] [address] [place] [address] [place] Platelet mean volume (Bld) [Entitic vol] 8.6 fL Low 9.0-12.7 [facility] Comment on above: Order Comment: Speci men Type: BLOOD SPECIMEN Ordering Facility: [facility] Address: [address] [place], [place] [address] Performed By: #### S ERIMM #### [facility] CLIA [id number] [address] [place] [address] [place] Platelets (Bld) [#/Vol] 335 10*3/uL Normal 150-400 [facility] Comment on above: Order Comment: Speci men Type: BLOOD SPECIMEN Ordering Facility: [facility] Address: [address] [place], [place] [address] Performed By: #### S ERIMM #### [facility] CLIA [id number] [address] [place] [address] [place] RBC (Bld) [#/Vol] 3.15 10*6/uL Low 3.90-5.20 [facility] Comment on above: Order Comment: Speci men Type: BLOOD SPECIMEN Ordering Facility: [facility] Address: [address] [place], [place] [phone] Performed By: #### S ERIMM #### [facility] CLIA [id number] [address] [place] [address] [place] WBC (Bld) [#/Vol] 5.82 10*3/uL Normal 3.70-11.00 [facility] Comment on above: Order Comment: Speci men Type: BLOOD SPECIMEN Ordering Facility: [facility] Address: [address] [place], [place] [id number] Performed By: #### [facility] #### [facility] CLIA [id number] [address] [place] [address] [place] Abs Immature Gran <0.10 k/uL [facility] Basophils (Bld) [#/Vol] 0.03 10*3/uL <0.11 k/uL [facility] Basophils/100 WBC (Bld) 0.5 % [facility] Differential cell count method Nom (Bld) Auto [facility] Eosinophils (Bld) [#/Vol] 0.26 10*3/uL <0.46 k/uL [facility] Eosinophils/100 WBC (Bld) 4.5 % [facility] Erythrocyte distribution width (RBC) [Ratio] 18.1 % High 11.5 - 15.0 % [facility] Hematocrit (Bld) [Volume fraction] 30.1 % Low 36.0 - 46.0 % [facility] Hemoglobin (Bld) [Mass/Vol] 9.3 g/dL Low 11.5 - 15.5 g/dL [facility] Immature Gran % 0.2 % [facility] Lymphocytes (Bld) [#/Vol] 1.40 10*3/uL 1.00 - 4.00 k/uL [facility] Lymphocytes/100 WBC (Bld) 24.1 % [facility] MCH (RBC) [Entitic mass] 29.5 pg 26.0 - 34.0 pg [facility] MCHC (RBC) [Mass/Vol] 30.9 g/dL 30.5 - 36.0 g/dL [facility] MCV (RBC) [Entitic vol] 95.6 fL 80.0 - 100.0 fL [facility] Monocytes (Bld) [#/Vol] 0.36 10*3/uL <0.87 k/uL [facility] Monocytes/100 WBC (Bld) 6.2 % [facility] Neutrophils (Bld) [#/Vol] 3.76 10*3/uL 1.45 - 7.50 k/uL [facility] Neutrophils/100 WBC (Bld) 64.5 % [facility] Nucleated RBC (Bld) [#/Vol] <0.01 k/uL [facility] Nucleated RBC/100 WBC (Bld) [Ratio] 0.0 /100 WBC [facility] Platelet mean volume (Bld) [Entitic vol] 8.6 fL Low 9.0 - 12.7 fL [facility] Platelets (Bld) [#/Vol] 335 10*3/uL 150 - 400 k/uL [facility] RBC (Bld) [#/Vol] 3.15 10*6/uL Low 3.90 - 5.2 0 m/uL [facility] WBC (Bld) [#/Vol] 5.82 10*3/uL 3.70 - 11. 00 k/uL [facility] CNOVSPon 05-22-2022 CNOVSP Visit (SP) Office (HEMASA) KAYA SCHILLING ([id number]) 1965 F Date Time Provider Department 05/22/22 11:30 AM KAREL SAM During your visit today, we recorded the following information about you: Temperature Pulse Respiration Blood pressure 97.6 degrees 95/minute 16/minute 145/80 Weight Height 71.2 kg 1.651 m Karel Sam MD 05/22/2022 11:57 AM Signed PATIENT NAME: Kaya Schilling CLINIC NO.: [id number] ATTENDING PHYSICIAN: Karel Sam MD DATE OF [...] 1 disorder (HCC) Broken jaw ([facility]) no surgery COPD (chronic obstructive pulmonary disease) ([facility]) Diabetes mellitus (adult onset) ([facility]) History of broken nose had septoplasty Manic depression ([facility]) Dr. Rees Neck pain Pneumonia [...] General appearanc (more content not included)... Normal [facility] Ferritin SerPl-mCncon 2021 Ferritin [Mass/Vol] 3.2 ng/mL Low 14.7-205.1 [facility] Comment on above: Order Comment: Speci men Type: BLOOD SPECIMEN Ordering Facility: [facility] Address: [address] [place] [address] Performed By: #### S PARUL #### [facility] CLIA [id number] [address] [place] [address] [place] [address] [place] Folate SerPl-mCncon 05-22-20 22 Folate [Mass/Vol] ng/mL Normal >4.7 [facility] Comment on above: Order Comment: Speci men Type: BLOOD SPECIMEN Ordering Facility: [facility] Address: [address] [place] [address] Result Comment: A re sult of > 20 ng/mL is not necessarily indicative of a pathologic or treatable condition: it reflects a limitation of the test methodology. Assay reference range: 4.8 to 24.2 ng/mL. Suitable for detection of folate deficiency. Reference: Folate III (Folate III) [package insert V 1.0 Danish]. [facility], [place], [place]: July 2015. Performed By: #### S ERIMM #### [facility] CLIA [id number] [address] [place] [address] IMMUNOFIXATION SCREEN, SERUM on 05-22-2022 MPA RESULT No M protein is identified. Normal No M protein is identified. [facility] Comment on above: Order Comment: Speci men Type: BLOOD SPECIMEN Ordering Facility: [facility] Address: [address] [place] [address] Performed By: #### S ERIMM #### [facility] CLIA [id number] [address] [place] [address] OF [facility] STAFF REVIEW (MPA) Reviewed by Mateo Armando MD, Ph.D ([id number]) Normal [facility] Comment on above: Order Comment: Speci men Type: BLOOD SPECIMEN Ordering Facility: [facility] Address: [address] [place], [place] [phone] Performed By: #### S ERIMM #### [facility] CLIA [id number] [address] [place] [address] [place] IMMUNOGLOBULINS GAMon 2021 IgA [Mass/Vol] 314 mg/dL Normal 70-400 [facility] Comment on above: Order Comment: Speci men Type: BLOOD SPECIMEN Ordering Facility: [facility] Address: [address] [place] [address] Performed By: #### S ERIMM #### [facility] CLIA [id number] [address] [place] [address] [place] IgG [Mass/Vol] 1099 mg/dL Normal 700-1600 [facility] Comment on above: Order Comment: Speci men Type: BLOOD SPECIMEN Ordering Facility: [facility] Address: [address] [place], [place] [address] Performed By: #### S ERIMM #### [facility] CLIA [id number] [address] [place] [address] [place] IgM [Mass/Vol] 56 mg/dL Normal 40-230 [facility] Comment on above: Order Comment: Speci men Type: BLOOD SPECIMEN Ordering Facility: [facility] Address: [address] [place], [place] [address] Performed By: #### S ERIMM #### [facility] CLIA [id number] [address] [place] [address] [place] Iron and Iron binding capaci ty panelon 05-22-2022 Iron [Mass/Vol] 34 ug/dL Low 41-186 [facility] Comment on above: Order Comment: Speci men Type: BLOOD SPECIMEN Ordering Facility: [facility] Address: [address] [place] [address] Performed By: #### S ERIMM #### [facility] CLIA [id number] [address] [place] [address] [place] Iron binding capacity [Mass/Vol] 467 ug/dL High 232-386 [facility] Comment on above: Order Comment: Speci men Type: BLOOD SPECIMEN Ordering Facility: [facility] Address: [address] [place] [address] Performed By: #### S ERIMM #### [facility] CLIA [id number] [address] [place] [address] [place] Iron/TIBC [Molar ratio] 7.3 % Low 15.0-57.0 [facility] Comment on above: Order Comment: Speci men Type: BLOOD SPECIMEN Ordering Facility: [facility] Address: [address] [place] [address] Performed By: #### S ERIMM #### [facility] CLIA [id number] [address] [place] [address] [place] KAPPA/JOHNSON,FREE,SERon 2021 Immunoglobulin light chains.kappa.free (S) [Mass/Vol] 40.4 mg/L High 3.3-19.4 [facility] Comment on above: Order Comment: Speci men Type: BLOOD SPECIMEN Ordering Facility: [facility] Address: [address] [place] [address] Performed By: #### S ERIMM #### [facility] CLIA [id number] [address] [place] [address] Immunoglobulin light chains.kappa/Immunog lobulin light chains.lambda (S) [Mass ratio] 1.99 High 0.26-1.65 [facility] Comment on above: Order Comment: Speci men Type: BLOOD SPECIMEN Ordering Facility: [facility] Address: [address] [place] [address] Performed By: #### S ERIMM #### [facility] CLIA [id number] [address] [place] [address] [place] Immunoglobulin light chains.lambda.free [Mass/Vol] 20.3 mg/L Normal 5.7-26.3 [facility] Comment on above: Order Comment: Speci men Type: BLOOD SPECIMEN Ordering Facility: [facility] Address: [address] [place] [address] Performed By: #### S ERIMM #### [facility] CLIA [id number] [address] [place] [address] [place] LD LACTATE DEHYDROon 022 LDH [Catalytic activity/Vol] 149 U/L 135 - 214 U/L [facility] LDH SerPl-cCncon 05-22-2022 LDH [Catalytic activity/Vol] 149 U/L Normal 135-214 [facility] Comment on above: Order Comment: Speci men Type: BLOOD SPECIMEN Ordering Facility: [facility] Address: [address] [place] [address] Performed By: #### 2 532-0 #### [facility] CLIA [id number] [address] [place], [place] [id number] Prot Ur-mCncon 05-22-2022 Protein (U) [Mass/Vol] 8 mg/dL Normal 0-20 [facility] Comment on above: Order Comment: Speci men Type: URINE SPECIMEN Ordering Facility: [facility] Address: [address] [place] [address] Performed By: #### 2 888-6 #### [facility] CLIA [id number] [address] [place] [address] [place] RETIC COUNTon 05-22-2022 Reticulocytes (Bld) [#/Vol] 0.81163 10*3/uL 0.018 - 0.100 M/uL [facility] Retics #on 05-22-2022 Reticulocytes (Bld) [#/Vol] 0.06474 10*3/uL Normal 0.018-0.100 [facility] Comment on above: Order Comment: Speci men Type: BLOOD SPECIMEN Ordering Facility: [facility] Address: [address] [place] [address] Performed By: #### S ERIMM #### [facility] CLIA [id number] [address] [place] [address] [place] Reticulocytes (Bld) [#/Vol]o n 05-22-2022 Reticulocytes/100 RBC (Bld) 1.9 % Normal 0.4-2.0 [facility] Comment on above: Order Comment: Speci men Type: BLOOD SPECIMEN Ordering Facility: [facility] Address: [address] [place] [address] Performed By: #### S ERIMM #### [facility] CLIA [id number] [address] [place] [address] [place] Reticulocytes/100 RBC (Bld) 1.9 % 0.4 - 2.0 % [facility] URINE PROTEIN ELECTROPHORESI S RANDOM (P)on 05-22-2022 Albumin Elph (U) [Mass fraction] 30.64 % Normal [facility] Comment on above: Order Comment: Speci men Type: URINE SPECIMEN Ordering Facility: [facility] Address: [address] [place] [address] Performed By: #### L [id number] #### [facility] CLIA [id number] [address] [place] [address] [place] Alpha 1 globulin Elph (U) [Mass fraction] 5.14 % Normal [facility] Comment on above: Order Comment: Speci men Type: URINE SPECIMEN Ordering Facility: [facility] Address: [address] [place] [address] Performed By: #### L [id number] #### [facility] CLIA [id number] [address] [place] [address] [place] Alpha 2 globulin Elph (U) [Mass fraction] 14.49 % Normal [facility] Comment on above: Order Comment: Speci men Type: URINE SPECIMEN Ordering Facility: [facility] Address: [address] [place], [place] [address] Performed By: #### L [id number] #### [facility] CLIA [id number] [address] [place] [address] [place] Beta globulin Elph (U) [Mass fraction] 21.27 % Normal [facility] Comment on above: Order Comment: Speci men Type: URINE SPECIMEN Ordering Facility: [facility] Address: [address] [place], [place] [id number] Performed By: #### L [id number] #### [facility] CLIA [id number] [address] [place] [address] [place] Gamma globulin Elph (U) [Mass fraction] 28.46 % Normal [facility] Comment on above: Order Comment: Speci men Type: URINE SPECIMEN Ordering Facility: [facility] Address: [address] [place] [address] Performed By: #### L [id number] #### [facility] CLIA [id number] [address] [place] [address] [place] Protein Fractions Elph Ludin (U) [Interp] No definitive M protein is identified on protein electrophoresis. Normal No definitive M protein is identified on protein electrophoresi s. [facility] Comment on above: Order Comment: Speci men Type: URINE SPECIMEN Ordering Facility: [facility] Address: [address] [place] [address] Performed By: #### L [id number] #### [facility] [place] [id number] [address] [place] [address] [place] STAFF REVIEW (URINE ELECTRO) Reviewed by Mateo Armando MD, Ph.D ([id number]) Normal [facility] Comment on above: Order Comment: Speci men Type: URINE SPECIMEN Ordering Facility: [facility] Address: [address] [place] [address] Performed By: #### L [id number] #### [facility] [place] [id number] [address] [place] [address] [place] Vit B12 [facility] [place]2 022 Cobalamin (Vitamin B12) [Mass/Vol] pg/mL Low 232-1245 [facility] Comment on above: Order Comment: Speci men Type: BLOOD SPECIMEN Ordering Facility: [facility] Address: [address] [place], [place] [id number] Result Comment: Resu lt rechecked. Performed By: #### S ERIMM #### [facility] CLIA [id number] [address] [place] [address] [place] LITHIUMon 05-20-2022 Markesan (Eskalith(R)), Serum 0.9 mmol/L Normal 0.5-1.[address] [facility] Comment on above: Result Comment: Plas ma concentration of 0.5 - 0.8 mmol/L are advised for long-term use; concentrations of up to 1.2 mmol/L may be necessary during acute treatment. Detection Limit = 0.1 <0.1 indicates None Detected Performed By: #### L ACT #### [facility] [address] [place] [address] Dr. Rosangela Smyth CREATININEon 05-19-2022 Creatinine [Mass/Vol] 0.84 mg/dL Normal 0.55-1.02 [facility] Comment on above: Performed By: #### O BSCRN #### [facility] [address] [place] [address] Dr. Rosangela Smyth EGFR-AF [place] >60 Normal >=60 [facility] Comment on above: Performed By: #### O BSCRN #### [facility] [address] [place] [address] Dr. Rosangela Smyth EGFR-NON AF [place] >60 Normal >=60 [facility] Comment on above: Performed By: #### O BSCRN #### [facility] [address] [place] [address] Dr. Rosangela Smyth TSHon 05-19-2022 TSH 2.337 uIU/mL Normal 0.358-3.[address] [facility] Comment on above: Performed By: #### O BSCRN #### [facility] [address] [place] [address] Dr. Rosangela Smyth CBC AUTO DIFFon 05-16-2022 BASO # 0.0 103/ul Normal 0.0-0.1 [facility] Comment on above: Performed By: #### L IPID, CMP #### [facility] [address] [place] [address] Dr. Rosangela Smyth Basophils/100 WBC (Bld) 0.4 % Normal 0.2-2.0 [facility] Comment on above: Performed By: #### L IPID, CMP #### [facility] [address] [place] [address] Dr. Rosangela Smyth EO # 0.3 103/ul Normal 0.0-0.7 [facility] Comment on above: Performed By: #### L IPID, CMP #### [facility] [address] [place] [address] Dr. Rosangela Smyth Eosinophils/100 WBC (Bld) 5.3 % Normal 0.9-7.0 [facility] Comment on above: Performed By: #### L IPID, CMP #### [facility] [address] [place] [address] Dr. Rosangela Smyth Erythrocyte distribution width (RBC) [Ratio] 18.5 % Critically high 11.0-15.0 [facility] Comment on above: Performed By: #### L IPID, CMP #### [facility] [address] [place] [address] Dr. Rosangela Smyth Hematocrit (Bld) [Volume fraction] 30.9 % Critically low 36.0-48.0 [facility] Comment on above: Performed By: #### L IPID, CMP #### [facility] [address] [place] [address] Dr. Rosangela Smyth Hemoglobin (Bld) [Mass/Vol] 9.7 g/dL Critically low 12.0-16.0 [facility] Comment on above: Performed By: #### L IPID, CMP #### [facility] [address] [place] [address] Dr. Rosangela Smyth IG # 0.01 10e3/ul Normal 0.00-0.03 [facility] Comment on above: Performed By: #### L IPID, CMP #### [facility] [address] [place] [address] Dr. Rosangela Smyth IG % 0.2 % Normal 0.0-0.5 [facility] Comment on above: Performed By: #### L IPID, CMP #### [facility] [address] [address] [address] Rosangela Smyth LYMPH # 1.7 103/ul Normal 1.2-3.8 [facility] Comment on above: Performed By: #### L IPID, CMP #### [facility] [address] [address] [address] Rosangela Smyth Lymphocytes/100 WBC (Bld) 31.6 % Normal 20.5-60.0 [facility] Comment on above: Performed By: #### L IPID, CMP #### [facility] [address] [address] [address] Rosangela Smyth MANUAL DIFF REQ NO Normal [facility] Comment on above: Performed By: #### L IPID, CMP #### [facility] [address] [place] [address] Dr. Rosangela Smyth MCH (RBC) [Entitic mass] 30.1 pg Normal 26.7-34.0 [facility] Comment on above: Performed By: #### L IPID, CMP #### [facility] [address] [place] [address] Dr. Rosangela Smyth MCHC (RBC) [Mass/Vol] 31.4 g/dL Normal 29.9-35.2 [facility] Comment on above: Performed By: #### L IPID, CMP #### [facility] [address] [place] [address] Dr. Rosangela Smyth MCV (RBC) [Entitic vol] 96.0 fL Normal 81.0-99.0 [facility] Comment on above: Performed By: #### L IPID, CMP #### [facility] [address] [place] [address] Dr. Rosangela Smyth MONO # 0.5 103/ul Normal 0.3-0.8 [facility] Comment on above: Performed By: #### L IPID, CMP #### [facility] [address] [place] [address] Dr. Rosangela Smyth Monocytes/100 WBC (Bld) 8.7 % Normal 1.7-12.0 [facility] Comment on above: Performed By: #### L IPID, CMP #### [facility] [address] [address] [address] Rosangela Smyth NEUT # 3.0 103/ul Normal 1.4-6.5 [facility] Comment on above: Performed By: #### L IPID, CMP #### [facility] [address] [address] [address] Rosangela Smyth Neutrophils/100 WBC (Bld) 53.8 % Normal 43.0-75.0 [facility] Comment on above: Performed By: #### L IPID, CMP #### [facility] [address] [address] [address] Rosangela Smyth Platelet mean volume (Bld) [Entitic vol] 8.2 fL Critically low 9.5-13.5 [facility] Comment on above: Performed By: #### L IPID, CMP #### [facility] [address] [address] [address] Rosangela Smyth PLT 361 103/ul Normal 150-450 [facility] Comment on above: Performed By: #### L IPID, CMP #### [facility] [address] [address] [address] Rosangela Smyth RBC 3.22 106/ul Critically low 4.20-5.40 [facility] Comment on above: Performed By: #### L IPID, CMP #### [facility] [address] [address] [address] Rosangela Smyth WBC 5.5 103/ul Normal 4.0-11.0 [facility] Comment on above: Performed By: #### L IPID, CMP #### [facility] [address] [place] [address] Dr. Rosangela Smyth OCC BLD IMMUNO SCREENon 05-07 OCCULT BLOOD Negative Normal NEGATIVE [facility] Comment on above: Performed By: #### O BSCRN #### [facility] [address] [place] [address] Dr. Rosangela Smyth PROF CHEM 8 (BAS METB)on Anion gap [Moles/Vol] 13.7 mmol/L Normal [facility] Comment on above: Performed By: #### O BSCRN #### [facility] [address] [place] [address] Dr. Rosangela Smyth Calcium [Mass/Vol] 11.2 mg/dL Critically high 8.5-10.1 [facility] Comment on above: Performed By: #### O BSCRN #### [facility] [address] [place] [address] Dr. Rosangela Smyth Chloride [Moles/Vol] 105 mmol/L Normal 98-107 [facility] Comment on above: Performed By: #### O BSCRN #### [facility] [address] [place] [address] Dr. Rosangela Smyth CO2 [Moles/Vol] 24.4 mmol/L Normal 21.0-32.0 [facility] Comment on above: Performed By: #### O BSCRN #### [facility] [address] [place] [address] Dr. Rosangela Smyth Creatinine [Mass/Vol] 0.95 mg/dL Normal 0.55-1.02 [facility] Comment on above: Performed By: #### O BSCRN #### [facility] [address] [place] [address] Dr. Rosangela Smyth EGFR-AF [place] >60 Normal >=60 [facility] Comment on above: Performed By: #### O BSCRN #### [facility] [address] [place] [address] Dr. Rosangela Smyth EGFR-NON AF [place] =60 Normal >=60 [facility] Comment on above: Performed By: #### O BSCRN #### [facility] [address] [place] [address] Dr. Rosangela Smyth Glucose [Mass/Vol] 91 mg/dL Normal 74-106 [facility] Comment on above: Performed By: #### O BSCRN #### [facility] [address] [place] [address] Dr. Rosangela Smyth Potassium [Moles/Vol] 4.1 mmol/L Normal 3.5-5.1 [facility] Comment on above: Performed By: #### O BSCRN #### [facility] [address] [place] [address] Dr. Rosangela Smyth Sodium [Moles/Vol] 139 mmol/L Normal 136-145 [facility] Comment on above: Performed By: #### O BSCRN #### [facility] [address] [place] [address] Dr. Rosangela Smyth Urea nitrogen [Mass/Vol] 11.0 mg/dL Normal 7.0-18.0 [facility] Comment on above: Performed By: #### O BSCRN #### [facility] [address] [place] [address] Dr. Rosangela Smyth Urea nitrogen/Creatinine [Mass ratio] 11.6 mg/mg Normal [facility] Comment on above: Performed By: #### O BSCRN #### [facility] [address] [place] [address] Dr. Rosangela Smyth CBC AUTO DIFFon 05-04-2022 BASO # 0.0 103/ul Normal 0.0-0.1 [facility] Comment on above: Performed By: #### L IPID, CMP #### [facility] [address] [place] [address] Dr. Rosangela Smyth Basophils/100 WBC (Bld) 0.4 % Normal 0.2-2.0 [facility] Comment on above: Performed By: #### L IPID, CMP #### [facility] [address] [place] [address] Dr. Rosangela Smyth EO # 0.4 103/ul Normal 0.0-0.7 [facility] Comment on above: Performed By: #### L IPID, CMP #### [facility] [address] [place] [address] Dr. Rosangela Smyth Eosinophils/100 WBC (Bld) 6.6 % Normal 0.9-7.0 [facility] Comment on above: Performed By: #### L IPID, CMP #### [facility] [address] [place] [address] Dr. Rosangela Smyth Erythrocyte distribution width (RBC) [Ratio] 19.3 % Critically high 11.0-15.0 [facility] Comment on above: Performed By: #### L IPID, CMP #### [facility] [address] [place] [address] Dr. Rosangela Smyth Hematocrit (Bld) [Volume fraction] 29.8 % Critically low 36.0-48.0 [facility] Comment on above: Performed By: #### L IPID, CMP #### [facility] [address] [place] [address] Dr. Rosangela Smyth Hemoglobin (Bld) [Mass/Vol] 9.3 g/dL Critically low 12.0-16.0 [facility] Comment on above: Performed By: #### L IPID, CMP #### [facility] [address] [place] [address] Dr. Rosangela Smyth IG # 0.01 10e3/ul Normal 0.00-0.03 [facility] Comment on above: Performed By: #### L IPID, CMP #### [facility] [address] [place] [address] Dr. Rosangela Smyth IG % 0.2 % Normal 0.0-0.5 [facility] Comment on above: Performed By: #### L IPID, CMP #### [facility] [address] [place] [address] Dr. Rosangela Smyth LYMPH # 1.3 103/ul Normal 1.2-3.8 [facility] Comment on above: Performed By: #### L IPID, CMP #### [facility] [address] [place] [address] Dr. Rosangela Smyth Lymphocytes/100 WBC (Bld) 23.5 % Normal 20.5-60.0 [facility] Comment on above: Performed By: #### L IPID, CMP #### [facility] [address] [place] [address] Dr. Rosangela Smyth MANUAL DIFF REQ NO Normal [facility] Comment on above: Performed By: #### L IPID, CMP #### [facility] [address] [place] [address] Dr. Rosangela Smyth MCH (RBC) [Entitic mass] 29.3 pg Normal 26.7-34.0 [facility] Comment on above: Performed By: #### L IPID, CMP #### [facility] [address] [place] [address] Dr. Rosangela Smyth MCHC (RBC) [Mass/Vol] 31.2 g/dL Normal 29.9-35.2 [facility] Comment on above: Performed By: #### L IPID, CMP #### [facility] [address] [place] [address] Dr. Rsoangela Smyth MCV (RBC) [Entitic vol] 94.0 fL Normal 81.0-99.0 [facility] Comment on above: Performed By: #### L IPID, CMP #### [facility] [address] [place] [address] Dr. Rosangela Smyth MONO # 0.4 103/ul Normal 0.3-0.8 [facility] Comment on above: Performed By: #### L IPID, CMP #### [facility] [address] [place] [address] Dr. Rosangela Smyth Monocytes/100 WBC (Bld) 6.6 % Normal 1.7-12.0 [facility] Comment on above: Performed By: #### L IPID, CMP #### [facility] [address] [place] [address] Dr. Rosangela Smyth NEUT # 3.5 103/ul Normal 1.4-6.5 [facility] Comment on above: Performed By: #### L IPID, CMP #### [facility] [address] [place] [address] Dr. Rosangela Smyth Neutrophils/100 WBC (Bld) 62.7 % Normal 43.0-75.0 [facility] Comment on above: Performed By: #### L IPID, CMP #### [facility] [address] [place] [address] Dr. Rosangela Smyth Platelet mean volume (Bld) [Entitic vol] 8.2 fL Critically low 9.5-13.5 [facility] Comment on above: Performed By: #### L IPID, CMP #### [facility] [address] [address] [address] Rosangela Smyth PLT 337 103/ul Normal 150-450 [facility] Comment on above: Performed By: #### L IPID, CMP #### [facility] [address] [address] [address] Rosangela Smyth RBC 3.17 106/ul Critically low 4.20-5.40 [facility] Comment on above: Performed By: #### L IPID, CMP #### [facility] [address] [address] [address] Rosangela Smyth WBC 5.6 103/ul Normal 4.0-11.0 [facility] Comment on above: Performed By: #### L IPID, CMP #### [facility] [address] [place] [address] Dr. Rosangela Smyth TSHon 05-04-2022 TSH 1.227 uIU/mL Normal 0.358-3.[address] [facility] Comment on above: Performed By: #### L IPID, CMP #### [facility] [address] [place] [address] Dr. Rosangela Smyth GLYCOHEMOGLOBIN A1Con 2021 ADA RECOMMENDATION SEE BELOW Normal [facility] Comment on above: Result Comment: ADA RECOMMENDED LIMIT 4.0 - 6.0 ADA THERAPEUTIC TARGET < 7.0 ACTION SUGGESTED > 7.0 Performed By: #### L IPID, CMP #### [facility] [address] [place] [address] Dr. Rosangela Smyth Glucose [Mass/Vol] 154 mg/dL Normal [facility] Comment on above: Performed By: #### L IPID, CMP #### [facility] [address] [address] [address] Rosangela Smyth HbA1c (Bld) [Mass fraction] 7.0 % Critically high 4.5-6.2 [facility] Comment on above: Performed By: #### L IPID, CMP #### [facility] [address] [address] [address] Rosanegla Smyth LIPID PROFILEon 04-03-2022 CHOL-HDL RATIO NORM SEE BELOW Normal [facility] Comment on above: Result Comment: 3.3 - 4.4 LOW RISK 4.4 - 7.1 AVERAGE RISK 7.1 - 11.0 MODERATE RISK >11.0 HIGH RISK Performed By: #### L IPID, CMP #### [facility] [address] [address] [address] Rosangela Smyth Cholesterol [Mass/Vol] 147 mg/dL Normal <=200 [facility] Comment on above: Performed By: #### L IPID, CMP #### [facility] [address] [place] [address] Dr. Rosangela Smyth Cholesterol in HDL [Mass/Vol] 64 mg/dL Critically high 40-60 [facility] Comment on above: Performed By: #### L IPID, CMP #### [facility] [address] [place] [address] Dr. Rosangela Smyth Cholesterol in LDL [Mass/Vol] 70.8 mg/dL Normal [facility] Comment on above: Performed By: #### L IPID, CMP #### [facility] [address] [address] [address] Rosangela Smyth Cholesterol.total/Ch olesterol in HDL [Mass ratio] 2.3 {ratio} Normal [facility] Comment on above: Performed By: #### L IPID, CMP #### [facility] [address] [place] [address] Dr. Rosangela Smyth HDL NORMAL > or = 60 mg/dl - LOW CARDIOVASCULAR RISK <40 mg/dl - HIGH CARDIOVASCULAR RISK Normal [facility] Comment on above: Performed By: #### L IPID, CMP #### [facility] [address] [place] [address] Dr. Rosangela Smyth LDL CALC NORMAL SEE BELOW Normal [facility] Comment on above: Result Comment: <100 mg/dl OPTIMAL 100 - 129 mg/dl NEAR OR ABOVE OPTIMAL 130 - 159 mg/dl BORDERLINE HIGH 160 - 189 mg/dl HIGH >190 mg/dl VERY HIGH Performed By: #### L IPID, CMP #### [facility] [address] [address] [address] Rosangela Smyth Triglyceride [Mass/Vol] 61 mg/dL Normal <=150 [facility] Comment on above: Performed By: #### L IPID, CMP #### [facility] [address] [address] [address] Rosangela Smyth VLDL CALC 12.2 mg/dL Normal [facility] Comment on above: Performed By: #### L IPID, CMP #### [facility] [address] [address] [address] Rosangela Smyth PROF 14(COMP METB)on 022 Albumin [Mass/Vol] 3.7 g/dL Normal 3.4-5.0 [facility] Comment on above: Performed By: #### L IPID, CMP #### [facility] [address] [place] [address] Dr. Rosangela Smyth Albumin/Globulin [Mass ratio] 1.1 {ratio} Normal [facility] Comment on above: Performed By: #### L IPID, CMP #### [facility] [address] [place] [address] Dr. Rosangela Smyth ALP [Catalytic activity/Vol] 92 U/L Normal 46-116 [facility] Comment on above: Performed By: #### L IPID, CMP #### [facility] [address] [place] [address] Dr. Rosangela Smyth ALT [Catalytic activity/Vol] 25 U/L Normal 14-59 [facility] Comment on above: Performed By: #### L IPID, CMP #### [facility] [address] [place] [address] Dr. Rosangela Smyth Anion gap [Moles/Vol] 11.8 mmol/L Normal [facility] Comment on above: Performed By: #### L IPID, CMP #### [facility] [address] [address] [address] Rosangela Smyth AST [Catalytic activity/Vol] 11 U/L Critically low 15-37 [facility] Comment on above: Performed By: #### L IPID, CMP #### [facility] [address] [address] [address] Rosangela Smyth Bilirubin [Mass/Vol] 0.2 mg/dL Normal 0.2-1.0 [facility] Comment on above: Performed By: #### L IPID, CMP #### [facility] [address] [place] [address] Dr. Rosangela Smyth Calcium [Mass/Vol] 10.6 mg/dL Critically high 8.5-10.1 [facility] Comment on above: Performed By: #### L IPID, CMP #### [facility] [address] [place] [address] Dr. Rosangela Smyth Chloride [Moles/Vol] 105 mmol/L Normal 98-107 [facility] Comment on above: Performed By: #### L IPID, CMP #### [facility] [address] [place] [address] Dr. Rosangela Smyth CO2 [Moles/Vol] 25.9 mmol/L Normal 21.0-32.0 [facility] Comment on above: Performed By: #### L IPID, CMP #### [facility] [address] [place] [address] Dr. Rosangela Smyth Creatinine [Mass/Vol] 0.86 mg/dL Normal 0.55-1.02 [facility] Comment on above: Performed By: #### L IPID, CMP #### [facility] [address] [place] [address] Dr. Rosangela Smyth EGFR-AF [place] >60 Normal >=60 [facility] Comment on above: Performed By: #### L IPID, CMP #### [facility] [address] [place] [address] Dr. Rosangela Smyth EGFR-NON AF [place] >60 Normal >=60 [facility] Comment on above: Performed By: #### L IPID, CMP #### [facility] [address] [place] [address] Dr. Rosangela Smyth Globulin (S) [Mass/Vol] 3.5 g/dL Normal [facility] Comment on above: Performed By: #### L IPID, CMP #### [facility] [address] [address] [address] Rosangela Smyth Glucose [Mass/Vol] 197 mg/dL Critically high 74-106 [facility] Comment on above: Performed By: #### L IPID, CMP #### [facility] [address] [address] [address] Rosangela Smyth Potassium [Moles/Vol] 4.7 mmol/L Normal 3.5-5.1 [facility] Comment on above: Performed By: #### L IPID, CMP #### [facility] [address] [address] [address] Rosangela Smyth Protein [Mass/Vol] 7.2 g/dL Normal 6.4-8.2 [facility] Comment on above: Performed By: #### L IPID, CMP #### [facility] [address] [place] [address] Dr. Rosangela Smyth Sodium [Moles/Vol] 138 mmol/L Normal 136-145 [facility] Comment on above: Performed By: #### L IPID, CMP #### [facility] [address] [address] [address] Rosangela Smyth Urea nitrogen [Mass/Vol] 16.0 mg/dL Normal 7.0-18.0 [facility] Comment on above: Performed By: #### L IPID, CMP #### [facility] [address] [address] [address] Rosangela Smyth Urea nitrogen/Creatinine [Mass ratio] 18.6 mg/mg Normal [facility] Comment on above: Performed By: #### L IPID, CMP #### [facility] [address] [address] [address] Rosangela Smyth GLYCOHEMOGLOBIN A1Con 2021 ADA RECOMMENDATION SEE BELOW Normal [facility] Comment on above: Result Comment: ADA RECOMMENDED LIMIT 4.0 - 6.0 ADA THERAPEUTIC TARGET < 7.0 ACTION SUGGESTED > 7.0 Performed By: #### L IPID, CMP #### [facility] [address] [place] [address] Dr. Rosangela Smyth Glucose [Mass/Vol] 134 mg/dL Normal [facility] Comment on above: Performed By: #### L IPID, CMP #### [facility] [address] [address] [address] Rosangela Smyth HbA1c (Bld) [Mass fraction] 6.3 % Critically high 4.5-6.2 [facility] Comment on above: Performed By: #### L IPID, CMP #### [facility] [address] [address] [address] Rosangela Smyth LIPID PROFILEon 01-31-2022 CHOL-HDL RATIO NORM SEE BELOW Normal [facility] Comment on above: Result Comment: 3.3 - 4.4 LOW RISK 4.4 - 7.1 AVERAGE RISK 7.1 - 11.0 MODERATE RISK >11.0 HIGH RISK Performed By: #### L ACT #### [facility] [address] [address] [address] Rosangela Smyth Cholesterol [Mass/Vol] 134 mg/dL Normal <=200 [facility] Comment on above: Performed By: #### L ACT #### [facility] [address] [address] [address] Rosangela Smyth Cholesterol in HDL [Mass/Vol] 68 mg/dL Critically high 40-60 [facility] Comment on above: Performed By: #### L ACT #### [facility] [address] [address] [address] Rosangela Smyth Cholesterol in LDL [Mass/Vol] 55.0 mg/dL Normal [facility] Comment on above: Performed By: #### L ACT #### [facility] [address] [address] [address] Rosangela Smyth Cholesterol.total/Ch olesterol in HDL [Mass ratio] 2.0 {ratio} Normal [facility] Comment on above: Performed By: #### L ACT #### [facility] [address] [address] [address] Rosangela Smyth HDL NORMAL > or = 60 mg/dl - LOW CARDIOVASCULAR RISK <40 mg/dl - HIGH CARDIOVASCULAR RISK Normal [facility] Comment on above: Performed By: #### L ACT #### [facility] [address] [address] [address] Rosangela Smyth LDL CALC NORMAL SEE BELOW Normal [facility] Comment on above: Result Comment: <100 mg/dl OPTIMAL 100 - 129 mg/dl NEAR OR ABOVE OPTIMAL 130 - 159 mg/dl BORDERLINE HIGH 160 - 189 mg/dl HIGH >190 mg/dl VERY HIGH Performed By: #### L ACT #### [facility] [address] [address] [address] Rosangela Smyth Triglyceride [Mass/Vol] 55 mg/dL Normal <=150 [facility] Comment on above: Performed By: #### L ACT #### [facility] [address] [address] [address] Rosangela Smyth VLDL CALC 11.0 mg/dL Normal [facility] Comment on above: Performed By: #### L ACT #### [facility] [address] [address] [address] Rosangela Smyth PROF 14(COMP METB)on 022 Albumin [Mass/Vol] 4.0 g/dL Normal 3.4-5.0 [facility] Comment on above: Performed By: #### L ACT #### [facility] [address] [address] [address] Rosangela Smyth Albumin/Globulin [Mass ratio] 1.0 {ratio} Normal [facility] Comment on above: Performed By: #### L ACT #### [facility] [address] [address] [address] Rosangela Smyth ALP [Catalytic activity/Vol] 105 U/L Normal 46-116 [facility] Comment on above: Performed By: #### L ACT #### [facility] [address] [address] [address] Rosangela Smyth ALT [Catalytic activity/Vol] 30 U/L Normal 14-59 [facility] Comment on above: Performed By: #### L ACT #### [facility] [address] [address] [address] Rosangela Smyth Anion gap [Moles/Vol] 10.7 mmol/L Normal [facility] Comment on above: Performed By: #### L ACT #### [facility] [address] [address] [address] Rosangela Smyth AST [Catalytic activity/Vol] 14 U/L Critically low 15-37 [facility] Comment on above: Performed By: #### L ACT #### [facility] [address] [address] [address] Rosangela Smyth Bilirubin [Mass/Vol] 0.2 mg/dL Normal 0.2-1.0 [facility] Comment on above: Performed By: #### L ACT #### [facility] [address] [address] [address] Rosangela Smyth Calcium [Mass/Vol] 11.1 mg/dL Critically high 8.5-10.1 [facility] Comment on above: Performed By: #### L ACT #### [facility] [address] [address] [address] Rosangela Smyth Chloride [Moles/Vol] 104 mmol/L Normal 98-107 [facility] Comment on above: Performed By: #### L ACT #### [facility] [address] [address] [address] Rosangela Smyth CO2 [Moles/Vol] 26.8 mmol/L Normal 21.0-32.0 [facility] Comment on above: Performed By: #### L ACT #### [facility] [address] [address] [address] Rosangela Smyth Creatinine [Mass/Vol] 0.68 mg/dL Normal 0.55-1.02 [facility] Comment on above: Performed By: #### L ACT #### [facility] [address] [address] [address] Rosangela Smyth EGFR-AF [place] >60 Normal >=60 [facility] Comment on above: Performed By: #### L ACT #### [facility] [address] [address] [address] Rosangela Smyth EGFR-NON AF [place] >60 Normal >=60 [facility] Comment on above: Performed By: #### L ACT #### [facility] [address] [address] [address] Rosangela Smyth Globulin (S) [Mass/Vol] 4.0 g/dL Normal [facility] Comment on above: Performed By: #### L ACT #### [facility] [address] [address] [address] Rosangela Smyth Glucose [Mass/Vol] 142 mg/dL Critically high 74-106 [facility] Comment on above: Performed By: #### L ACT #### [facility] [address] [address] [address] Rosangela Smyth Potassium [Moles/Vol] 4.5 mmol/L Normal 3.5-5.1 [facility] Comment on above: Performed By: #### L ACT #### [facility] [address] [address] [address] Rosangela Smyth Protein [Mass/Vol] 8.0 g/dL Normal 6.4-8.2 [facility] Comment on above: Performed By: #### L ACT #### [facility] [address] [address] [address] Rosangela Smyth Sodium [Moles/Vol] 137 mmol/L Normal 136-145 [facility] Comment on above: Performed By: #### L ACT #### [facility] [address] [address] [address] Rosangela Smyth Urea nitrogen [Mass/Vol] 14.0 mg/dL Normal 7.0-18.0 [facility] Comment on above: Performed By: #### L ACT #### [facility] [address] [address] [address] Rosangela Smyth Urea nitrogen/Creatinine [Mass ratio] 20.6 mg/mg Normal [facility] Comment on above: Performed By: #### L ACT #### [facility] [address] [address] [address] Rosangela Smyth Gamma Glutamyl Transpeptidas anurag 07-23-2021 Gamma Glutamyl Transpeptidase 71 7-64 [facility] Other Ambulatory Clinical Summaryo n 02-26-2021 Ambulatory Clinical Summary {[id number]}CD:[id number] Normal [facility] Ambulatory Clinical Summaryo n 02-07-2021 Ambulatory Clinical Summary {[id number]}CD:[id number] Normal [facility] Ambulatory Clinical Summary {[id number]}CD:[id number] [facility] Formson 02-07-2021 Forms [id number] #1.00CD:127 [facility] Historical Records Officeon 02-07-2021 Historical Records Office [id number] #1.00CD:127 Normal [facility] Patient Educationon 02-08-20 Patient Education Urology Urinary [...] nerve stimulation). ? For women, using a manager medical affairs to prevent urine leaks. This is a [...] after experiencing incontinence. General instructions ? Take yliw-zld-qvhezlc and prescription medicines only as (more content not included)... Normal [facility] Urology Office/Clinic Noteon 02-07-2021 Urology Office/Clinic Note [...] Will order Local anesthesia. ABX sent to [facility] in [place]. I have reviewed the previous health record information and history for this pt. from Dr. Shultz. Follow-up With When Contact Information KERA VAN, Chicho Beaulieu, URL [address] [place] [address] [place] [address]- [phone] Additional Instructions: Patient Education Urinary Incontinence I, [...] 10:55:00) Nitrite (more content not included)... Normal [facility] Comment on above: Result Comment: Elec tronically Signed By: KERA VAN, Chicho Beaulieu\.br\Date and Time Signed: 02/07/21 11:47 EDT\.br\Electronically Co-Signed By: Vanesa Pruitt MA\.br\Date and Time Co-Signed: 02/07/21 11:[address] NECK SOFT TISSUE WO IVCON on 01-29-2021 [facility] Physician Referralon 020 Physician Referral [id number] #1.00CD:127 Normal [facility] Vital Signs Date Time Vital Sign Value Performing Clinician Facility 05-22-2022 11:23-0400 Body height 165.1 cm Karel Sam MD Work Phone: [facility] 05-22-2022 11:23-0400 Body temperature 97.59 [degF] Karel Sam MD Work Phone: [facility] 05-22-2022 11:23-0400 Body weight 71.22 kg Karel Sam MD Work Phone: [facility] 05-22-2022 11:23-0400 Diastolic blood pressure 80 mm[Hg] Karel Sam MD Work Phone: [facility] 05-22-2022 11:23-0400 Heart rate 95 /min Karel Sam MD Work Phone: [facility] 05-22-2022 11:23-0400 Respiratory rate 16 /min Karel Sam MD Work Phone: [facility] 05-22-2022 11:23-0400 SaO2% (BldA) [Mass fraction] 100 % Karel Sam MD Work Phone: [facility] 05-22-2022 11:23-0400 Systolic blood pressure 145 mm[Hg] Karel Sam MD Work Phone: [facility] 07-23-2021 11:45-0500 Body height 165.1 cm Neo Calhoun Other [facility] Other 07-23-2021 11:45-0500 Body mass index (BMI) [Ratio] 24.29 kg/m2 Neo Calhoun Other [facility] Other 07-23-2021 11:45-0500 Body weight 66.23 kg Neo Calhoun Other [facility] Other 06-02-2021 15:40-0400 Body height 165.1 cm Brynn Mg Other [facility] Other 06-02-2021 15:40-0400 Body mass index (BMI) [Ratio] 24.83 kg/m2 Brynn Mg Other [facility] Other 06-02-2021 15:40-0400 Body temperature 96.9 [degF] Brynn Mg Other [facility] Other 06-02-2021 15:40-0400 Body weight 67.68 kg Brynn Mg Other [facility] Other 06-02-2021 15:40-0400 Diastolic blood pressure 80 mm[Hg] Brynn Mg Other [facility] Other 06-02-2021 15:40-0400 Respiratory rate 18 /min Brynn Mg Other [facility] Other 06-02-2021 15:40-0400 SaO2% (BldA) [Mass fraction] 99 % Brynn Mg Other [facility] Other 06-02-2021 15:40-0400 Systolic blood pressure 136 mm[Hg] Brynn Holliday Other [facility] Other Encounters Encounter Date Encounter Type Care Provider Facility Start: 11-17-2023 End: 11-17-2023 ambulatory [facility] Start: 11-17-2023 End: 11-17-2023 Office outpatient visit 15 minutes [facility] 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: [facility] Comment on above: Diarrhea of presumed infectious origin (Primary Dx); Weakness; Type 2 diabetes mellitus without complication, without long-term current use of insulin ([facility]); Hyperparathyroidism ([facility]) Start: 11-11-2023 [facility]phone [facility] Start: 11-05-2023 Telephone [facility] Start: 11-02-2023 ambulatory Dajuan Whaley Facility:[facility] Start: 10-25-2023 Refill [facility] Comment on above: Type 2 diabetes noe itus without complication, without long- term current use of insulin ([facility]) Start: 10-24-2023 Refill Kostas Cano ng DO Work Phone: [facility] Comment on above: Type 2 diabetes noe itus without complication, without long- term current use of insulin ([facility]) Start: 09-03-2023 Refill Kostas navas DO Work Phone: [facility] Comment on above: Acquired hypothyroid ism Start: 08-23-2023 End: 08-23-2023 ambulatory KOSTAS STEWARD [facility] Start: 01-17-2023 End: 01-17-2023 [...] STEWARD Facility:[facility] Start: 09-12-2022 End: 09-12-2022 ambulatory TATILA KIM . 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 Facility:[facility] Start: 07-03-2022 Telephone encounter [facility] hardwick MD [facility] Comment on above: Patient Update Start: 06-04-2022 Telephone encounter Karel hardwick MD [facility] Comment on above: Appointment Cancelle d Start: 05-29-2022 Telephone encounter Jackie Silverio VP [facility] em[facility]/Oncology Comment on above: Social Work Services Start: 05-26-2022 Telephone encounter Regina Zuniga sser PA-C Work Phone: Hematology/Oncology Comment on above: Lab Orders Start: 05-25-2022 Telephone encounter Yvonne Echavarria RN Hematology/Oncology Comment on above: Results Start: 05-22-2022 End: 05-23-2022 ambulatory KOSTAS STEWARD Facility:[facility] Start: 05-22-2022 End: 05-22-2022 ambulatory Karel Sam [...] 04-23-2022 End: 04-23-2022 ambulatory Neo Calhoun Other [facility] Other Start: 04-23-2022 Telephone encounter Neo powell [facility] Start: 04-03-2022 End: 04-04-[address] KOSTAS STEWARD Facility:[facility] Start: 01-31-2022 End: 02-01-[address] KOSTAS STEWARD Facility:[facility] Start: 01-02-2022 End: 01-02-2022 ambulatory Neo Calhoun Other [facility] Other Start: 01-02-2022 Telephone encounter Neo powell [facility] Start: 08-18-2021 End: 08-18-2021 ambulatory Neo Calhoun Other [facility] Other Start: 08-18-2021 Telephone encounter Neo powell [facility] Start: 07-23-2021 End: 07-23-2021 ambulatory Neo Calhoun Other [facility] Other Start: 07-23-2021 Office outpatient vi sit 25 minutes Neo Calhoun [facility] Start: 06-02-2021 Office outpatient ne w 45 minutes Brynn Holliday [facility] Start: 01-29-2021 End: 01-29-2021 Subsequent hospital visit by physician Ct [facility] ([facility]) Radiology Comment on above: Disorder of airway [ J98.9] Procedures Date Procedure Procedure Detail Performing Clinician Start: 08-23-2023 Adult depression scr eening assessment Kostas Steward [employer] Work Phone: Start: 08-23-2023 Microalbumin [Mass/v olume] in Urine by Test strip Kostas [employer] Phone: Start: 08-12-2023 Mammography Kostas echavarria [employer] Phone: Start: 04-01-2023 Diabetic retinal eye exam Kostas CanoEzoic Phone: Start: 01-29-2021 Ct soft tissue neck w/o contrast material Trev Shah MD Work Phone: Start: 01-29-2021 Ct thorax w/o contra st material Trev Shah MD Work Phone: Start: 04-06-2018 Colonoscopy Kostas Chen [employer] Phone: Start: 06-04-2016 Adult depression scr eening assessment Karel Sam MD Work Phone: Plan of Treatment Date Care Activity Detail Author Start: 04-06-2028 Screening for malign ant neoplasm of colon Colonoscopy [employer] Start: 08-23-2024 Adult BMI Screening [facility] Start: 08-23-2024 Depression Screening Depression Scre [facility]ing [facility] Start: 08-23-2024 Tobacco Screening Tobacco Screening [facility] Start: 08-23-2024 Urine screening for protein Urine Microalbumin [facility] Start: 08-12-2024 Screening for malign ant neoplasm of breast Mammogram [employer] Start: 04-01-2024 Glaucoma screening Diabetic Op [facility]thalmology [facility]am [facility] Start: 03-15-2024 Diabetic foot examination Diabetic F oot Exam [facility] Start: 12-01-2023 End: 12-01-2023 Patient encounter procedure 12/01/2023 4:00 PM EDT Office Visit [facility] [address] [place] [address] Dk Monge, 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 [address] [place] [address] [facility] Start: 05-07-2023 Influenza vaccination [facility] Start: 11-11-2022 PNEUMOCOCCAL (2 - PCV) PNEUMOCOCCAL (2 - PCV) [facility] Start: 11-11-2022 Pneumococcal vaccination Pneum ococcal Vaccine (2 - PCV) [facility] Start: 09-06-2022 Depression Assessment Depression Ass essment [facility] Start: 06-19-2022 End: 08-19-2022 PROTEIN ELECTROPHORESIS SERUM W/INTERP PROTEIN ELECTROPHORESIS SERUM W/INTERP Lab Routine Anemia, normocytic normochromic Expected: 06/19/2022 (Approximate), Expires: 08/19/[address] [facility] Work Phone: Comment on above: Expected: 06/19/2022 (Approximate), Expires: 08/19/2022 Start: 06-12-2022 End: 08-12-2022 Thyrotropin [Units/volume] in Serum or Plasma TSH BLD Lab Routine Anemia, normocytic normochromic Expected: 06/12/2022 (Approximate), Expires: 08/12/[address] [facility] Work Phone: Comment on above: Expected: 06/12/2022 (Approximate), Expires: 08/12/2022 Start: 06-05-2022 End: 08-05-2022 Comprehensive metabolic 2000 panel - Serum or Plasma COMP METABOLIC PANEL Lab Routine Anemia, normocytic normochromic Expected: 06/05/2022 (Approximate), Expires: 08/05/[address] [facility] Work Phone: Comment on above: Expected: 06/05/2022 (Approximate), Expires: 08/05/2022 Start: 05-26-2022 End: 07-26-2022 CBC W Auto Differential panel - Blood CBC + DIFF Lab Routine Anemia, normocytic normochromic Expected: 05/26/2022, Expires: 07/26/[address] [facility] Work Phone: Comment on above: Expected: 05/26/2022 , Expires: 07/26/2022 Start: 05-26-2022 End: 07-26-2022 Comprehensive metabolic 2000 panel - Serum or Plasma COMP METABOLIC PANEL Lab Routine Anemia, normocytic normochromic Expected: 05/26/2022, Expires: 07/26/[address] [facility] Work Phone: Comment on above: Expected: 05/26/2022 , Expires: 07/26/2022 Start: 05-26-2022 End: 07-26-2022 Ferritin [Mass/volume] in Serum or Plasma FERRITIN BLD Lab Routine Anemia, normocytic normochromic Expected: 05/26/2022, Expires: 07/26/[address] [facility] Work Phone: Comment on above: Expected: 05/26/2022 , Expires: 07/26/2022 Start: 05-26-2022 End: 07-26-2022 Iron and Iron binding capacity panel - Serum or Plasma IRON + TIBC Lab Routine Anemia, normocytic normochromic Expected: 05/26/2022, Expires: 07/26/[address] [facility] Work Phone: Comment on above: Expected: 05/26/2022 , Expires: 07/26/2022 Start: 05-22-2022 End: 07-22-2022 Cobalamin (Vitamin B12) [Mass/volume] in Serum or Plasma [facility] Work Phone: Comment on above: Expected: 05/22/2022 , Expires: 07/22/2022 Start: 05-22-2022 End: 05-22-2023 Ferritin [Mass/volume] in Serum or Plasma [facility] Work Phone: Comment on above: Expected: 05/22/2022 , Expires: 05/22/2023 Start: 05-22-2022 End: 07-22-2022 Folate [Mass/volume] in Serum or Plasma [facility] Work Phone: Comment on above: Expected: 05/22/2022 , Expires: 07/22/2022 Start: 05-22-2022 End: 05-22-2023 Iron and Iron binding capacity panel - Serum or Plasma [facility] Work Phone: Comment on above: Expected: 05/22/2022 , Expires: 05/22/2023 Start: 05-22-2022 End: 07-22-2022 MONOCLONAL PROTEIN, SERUM (BLOOD) [facility] Work Phone: Comment on above: Expected: 05/22/2022 , Expires: 07/22/2022 Start: 05-22-2022 End: 07-22-2022 PROTEIN ELECT RNRegla UR W/INTERP [facility] Work Phone: Comment on above: Expected: 05/22/2022 , Expires: 07/22/2022 Start: 05-07-2022 Influenza vaccination INFLUENZA (#1) [facility] Start: 09-06-2021 DEPRESSION ASSESSMENT DEPRESSION ASS ESSMENT [facility] Start: 06-04-2017 Adult depression screening assessment DEPRESSION SCREENING [facility] Start: 01-09-2014 Administration of varicella zoster vaccine Zoster (Shingles) Vaccine (1 of 2) [facility] Start: 01-09-2014 SHINGRIX VACCINE (1 of 2) FERGUSON GRIX VACCINE (1 of 2) [facility] Start: 01-09-2009 COLOGUARD (FIT-DNA) COLOGUARD (FIT-D NA) [facility] Start: 01-09-2009 Colonoscopy COLONOSCOPY [facility] Start: 01-09-2009 COLORECTAL CANCER SCREENING COLORECTAL CANCER SCREENING [facility] Start: 01-09-[address] COLONOGRAPHY [facility] Start: 01-09-2009 DIABETES SCREEN DIABETES SCREEN [facility] Start: 01-09-2009 Diabetes Screening Diabetes Screenin g [facility] Start: 01-09-2009 FECAL OCCULT BLOOD FECAL OCCULT BLOO D [facility] Start: 01-09-2009 Lipid 1996 panel - S elissa or Plasma Lipid Screening [facility] Start: 01-09-2009 LIPID SCREEN LIPID SCREEN [facility] Start: 01-09-2009 SIGMOIDOSCOPY SIGMOIDOSCOPY [facility] Start: 2004 Mammography [facility] Start: 01-09-1994 HPV TESTING HPV TESTING [facility] Start: 01-09-1994 Zoledronic acid therapy ALPHA- 1 ANTITRYPSIN DEFICIENCY SCREENING [facility] Start: 01-09-1985 PAP TESTING PAP TESTING [facility] Start: 01-09-1985 Screening for malign ant neoplasm of cervix Pap Smear [facility] Start: 01-09-1983 DTaP,Tdap and Td Vac cines (1 - Tdap) DTaP,Tdap and Td Vaccines (1 - Tdap) [facility] Start: 01-09-1983 Urine microalbumin profile [facility] Start: 01-09-1982 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 ALLEN DISEASE VISIT ANNUAL PCP TEAM CHRONIC DISEASE VISIT [facility] Start: 01-09-1982 HEPATITIS C SCREENING HEPATITIS C SC REENING [facility] Start: 01-09-1982 HIV SCREENING HIV SCREENING [facility] Start: 01-09-1970 PNEUMOCOCCAL (1 - PCV) PNEUMOCOCCAL (1 - PCV) [facility] Start: 1964 COVID-19 VACCINE (#1) COVID-19 VACCI NE (#1) [facility] Start: 1964 HEPATITIS B (1 of 3 - 3-dose series) HEPATITIS B (1 of 3 - 3-dose series) [facility] End: 11-16-2024 C difficile by PCR C difficile by PCR Lab Routine Diarrhea of presumed infectious origin 1 Occurrences starting 11/17/2023 until 11/16/2024 [facility] Comment on above: 1 Occurrences starti ng 11/17/2023 until 11/16/2024 End: 11-16-2024 GI Panel(stool pathogen panel) GI Panel(stool pathogen panel) Lab Routine Diarrhea of presumed infectious origin 1 Occurrences starting 11/17/2023 until 11/16/2024 [facility] Work Phone: Comment on above: 1 Occurrences starti ng 11/17/2023 until 11/16/2024 [facility] Immunizations Immunization Date Immunization Notes Care Provider Mary mack 06-13-2022 Influenza, injectabl e, Madin Serene Canine Kidney, preservative free, quadrivalent Kostas Furlong DO Work Phone: [facility] 06-13-2022 Pneumococcal Conjuga te 20-valent Kostas Furlong DO Work Phone: [facility] 06-13-2022 influenza virus vaccine, unspecified formulation Kostas Furlong DO Work Phone: [facility] 11-11-2021 Influenza, injectabl e, Madin Serene Canine Kidney, preservative free, quadrivalent Karel Sam MD Work Phone: [facility] 11-11-2021 pneumococcal polysaccharide vaccine, 23 valent Karel Sam MD Work Phone: [facility] 11-11-2021 influenza virus vaccine, unspecified formulation Ct (I-Stat) [facility] 09-06-2020 influenza, seasonal, injectable Karel Sam MD Work Phone: [facility] 07-21-2020 influenza, seasonal, injectable Kostas Furlong DO Work Phone: [facility] 07-02-2020 influenza, injectabl e, quadrivalent, contains preservative Kostas Furlong DO Work Phone: [facility] 06-14-2019 influenza, injectabl e, quadrivalent, contains preservative Kostas Furlong DO Work Phone: [facility] 06-14-2019 pneumococcal polysaccharide vaccine, 23 valent Kostas Furlong DO Work Phone: [facility] 06-28-2017 Influenza, injectabl e, Madin Ludowici Canine Kidney, preservative free, quadrivalent Karel Sam MD Work Phone: [facility] 07-17-2015 influenza, seasonal, injectable, preservative free Karel Sam MD Work Phone: [facility] 07-27-2014 influenza, seasonal, injectable, preservative free Karel Sam MD Work Phone: [facility] 06-06-2014 influenza, injectabl e, quadrivalent, preservative free [employer] Other [place] [employer] Other 07-11-2013 influenza virus vaccine, whole virus Kostas Steward DO Work Phone: [facility] Payers Date Payer Category Payer Self-pay 2013 Medicaid [id number] 1965 Unknown [id number] 2.16.84 0.1.455136.3.579.2.593 1965 Unknown [id number] 2.16.84 0.1.554241.3.579.2.593 1964 Unknown [id number] 2.16.84 0.1.795310.3.579.2.593 1964 Unknown [id number] 2.16.84 0.1.089508.3.579.2.593 1964 Unknown [id number] 2.16.84 0.1.623470.3.579.2.593 1964 Unknown [id number] 2.16.84 0.1.797231.3.579.2.593 1964 Unknown [id number] 2.16.84 0.1.400370.3.579.2.593 1964 Unknown [id number] 2.16.84 0.1.166310.3.579.2.593 1964 Unknown [id number] 2.16.84 0.1.619312.3.579.2.593 1964 Unknown [id number] 2.16.84 0.1.274901.3.579.2.593 1964 Unknown [id number] 2.16.84 0.1.375690.3.579.2.593 1964 Unknown [id number] 2.16.84 0.1.169570.3.579.2.593 1964 Unknown [id number] 2.16.84 0.1.765722.3.579.2.593 1964 Unknown [id number] 2.16.84 0.1.281205.3.579.2.593 1964 Unknown [id number] 2.16.8 40.1.420055.3.579.2.1286 1964 Unknown [id number] 2.16.840 .1.887632.3.579.2.1286 1960 Self-pay [id number] 1959 Unknown [id number] 2.1 6.840.1.655447.19 1959 Unknown [id number] Unknown [id number] 2.16.8 40.1.193355.3.579.2.531 Social History Date Type Detail Facility Unknown if ever smoked [employer] Other Start: 10-17-2020 End: 12-03-2020 Sex Assigned At [facility] Other Start: 10-26-2013 End: 10-08-2022 Tobacco smoking status TNIS Never smoked tobacco [facility] Start: 10-26-2013 End: 10-08-2022 Tobacco use and exposure Smokeless tobacco non-user [facility] Start: 12-03-2020 End: 05-21-2022 Alcohol intake Current non-drinker of alcohol (finding) [facility] Start: 1965 Sex Assigned At Not on file [facility] History of tobacco use Passive smoker [facility] Start: 12-30-2020 End: 05-25-2022 Exposure to SARS-CoV-2 (event) Not sure [facility] Start: 10-17-2020 End: 12-03-2020 History of Social function [facility] National Score (1-10 0), lower number is lower risk Not on file [facility] Start: 08-23-2023 Alcohol intake Ex-drinker (finding) [employer] Has the [employer] threatened to shut off services in your home in past 12Mo No [facility] Are you now , , , , never or living with a partner? [facility] How often to you hav e a drink containing alcohol? Never [facility] How hard is it for y ou to pay for the very basics like food, housing, medical care, and heating Hard [facility] Do you feel stress - tense, restless, nervous, or anxious, or unable to sleep at night because your mind is troubled all the time - these days [OSQ] Rather much [facility] Clinical Notes 06-02-2021 to 11-17-2023 Dk Monge APRN-[facility] - 11/17/2023 2:00 PM EDTTelephone Encounter - Con Victorino, [facility] - 11/11/2023 10:27 AM ESTTelephone Encounter - Con Victorino, [facility] - 11/11/2023 10:27 AM EST Note Date & Type Note Facility 11-17-2023 History of Present illness Narrative [address] [place] [address] Patient: Kaya Schilling Date of : 1965 [...] - [facility]ILY [facility] [address] [place] [address] Patient Location: Patient's home Video Visit Consent [...] that there are some limitations compared to [id number] evaluations. The patient consented to the presence of additional virtual and/or in-person participants. We elected to proceed. Problem List Items Addressed This Visit Endocrine Type 2 diabetes mellitus without complication, without long-term current use of insulin ([facility]) Hyperparathyroidism ([facility]) Other Visit Diagnoses Diarrhea of presumed infectious [...] Medical History: Diagnosis Date Bipolar 1 disorder ([facility]) Elevated parathyroid hormone Empty sella ([facility]) Female bladder prolapse Hepatitis C Hypercalcemia Hypothyroidism Manic depression ([facility]) Migraine Scoliosis Past Surgical History: Procedure Laterality [...] complication, without long-term current use of insulin ([facility]) Hyperparathyroidism ([facility]) Other orders - promethazine (PHENERGAN) 12.5 mg tablet; Take 1 tablet (12.5 mg total) by mouth every 8 (eight) hours as needed for nausea or vomiting for up to 5 days. Follow-up: Since her diarrhea symptoms have been persistent for the last week we will check stool pathogen panel and C diff. she agrees to go to [facility] for this. Risks of Phenergan including sedation [...] to tolerate PO intake she should call [phone] 20min DAHLIA JANE APRN-CNP 11/20/23 0914 documented in this encounter [facility] 11-11-2023 Miscellaneous Notes Pt calls states she has that new virus called Norovirus. She is feeling better. Told her to try the brat diet documented in this encounter [facility] 11-11-2023 Telephone encounter Note Pt calls states she has that new virus called Norovirus. She is feeling better. Told her to try the brat diet [facility] 11-05-2023 Miscellaneous Notes Pt called and just wanted to let us know she is sick and I told her we are closed and please if drink plenty of water and if she gets worse please go to Local hospital to be checked documented in this encounter [facility] 11-05-2023 Telephone encounter Note Pt called and just wanted to let us know she is sick and I told her we are closed and please if drink plenty of water and if she gets worse please go to Local hospital to be checked [facility] 07-03-2022 Miscellaneous Notes per answering service, pt cx today rv and tx appointments due to being up all night sick will call back to reschedule. Electronically signed by Reji Jane [facility] at 07/03/2022 8:21 AM EDT documented in this encounter [facility] 06-04-2022 Miscellaneous Notes Patient left a message on my voicemail today to get this appointment scheduled. Call placed to patient, no answer. Left message on voicemail to call back to reschedule. Roberta Vaughan Per Answering Service message patient called requested to cancel this appointment and stated she will call us back to reschedule. Hanna Perdomo Pss Electronically signed by Hanna Perdomo [facility] at 06/04/2022 8:30 AM EDT documented in this encounter [facility] 05-29-2022 Miscellaneous Notes Patient is listed on the First Time Treatment List for a non-oncology treatment. No psychosocial assessment is indicated. CHUCHO Francis documented in this encounter [facility] 05-28-2022 Miscellaneous Notes Called Amada Nash spoke with Luisa. She states they have received this referral and their community services coordinator will be calling patient soon to schedule. Hanna Perdomo Pss Electronically signed by Hanna Perdomo [facility] at 05/28/2022 2:29 PM EDT Records faxed to [facility]. Appointments moved to next (06/04). Called pt, no answer, LMOV. Electronically signed by Reji Jane [facility] at 05/25/2022 2:18 PM EDT Theresa miranda send to GI facesheet in your box Order placed and she also needs to [...] AM EDT ----- ----- Message ----- From: Kaerl Sam MD Sent: 05/23/2022 4:49 PM EDT To: Sharron Keenan RN Please let patient know that she has both B12 and Iron def and will need to have all replaced. Would recommend IV and IM B12 replacement if she is in agreement. She also will need an upper and lower endoscopy to further evaluate as well,. documented in this encounter [facility] 05-26-2022 Miscellaneous Notes Patient scheduled to see you on 06/04/22 for follow up with labs. Please add lab orders. Thanks. Amirah Koch MA documented in this encounter [facility] 05-22-2022 Note HNO ID: [id number] Author: Karel Sam MD Service: ? Author Type: Physician Type: Progress Notes Filed: 05/22/2022 11:57 AM Note Text: PATIENT NAME: Kaya Schilling CLINIC NO.: [id number] ATTENDING PHYSICIAN: Karel Sam MD DATE OF [...] Anemia Arthritis Bipolar 1 disorder ([facility]) Broken jaw ([facility]) no surgery COPD (chronic obstructive pulmonary disease) ([facility]) Diabetes mellitus (adult onset) ([facility]) History of broken nose had septoplasty Manic depression ([facility]) Dr. Rees Neck pain Pneumonia [...] are intact. Breast: (more content not included)... [facility] 05-22-2022 History of Present illness Narrative PATIENT NAME: Kaya Schilling [facility] NO.: [id number] ATTENDING PHYSICIAN: Karel Sam MD DATE OF [...] Anemia Arthritis Bipolar 1 disorder ([facility]) Broken jaw ([facility]) no surgery COPD (chronic obstructive pulmonary disease) ([facility]) Diabetes mellitus (adult onset) ([facility]) History of broken nose had septoplasty Manic depression ([facility]) Dr. Rees Neck pain Pneumonia [...] 11/03/2013 1.21 1.00 - 4.00 k/uL Final [place]% Date Value Ref Range Status 11/03/2013 7.7 % Final Abs [place] Date Value Ref Range Status 11/03/2013 0.36 0.00 - 0.86 k/uL Final Abs Eosin Date Value Ref Range Status 11/03/2013 0.12 0.00 - 0.45 k/uL Final Baso% Date Value Ref Range Status 11/03/2013 0.9 % Final Abs Baso Date Value Ref Range Status 11/03/2013 0.04 0.00 - 0.10 k/uL Final Comment: Performed at [facility] , [address] [place] [address] PATH: IMAGING: ASSESSMENT AND PLAN: Kaya Schilling [...] Karel Sam M.D. Hematology/Medical Oncology [facility] [phone] CC: Kostas Steward DO I spent a total of 40 minutes on the date of the service which included preparing to see the patient, [id number] patient care, completing clinical documentation, obtaining and/or reviewing separately obtained history, performing a medically appropriate examination, counseling and educating the patient/family/caregiver, and ordering medications, tests, or procedures. documented in this encounter [facility] 04-23-2022 Evaluation note Encounter Date Diagnosis Assessment Notes Apr, Irritable bowel syndrome with constipation (ICD-10 - K58.1) [employer] Other 12-13-2021 Evaluation note* Encounter Date Diagnosis Assessment Notes Treatment Notes Treatment Clinical Notes Aug, Irritable bowel syndrome with constipation (ICD-10 - K58.1) [employer] Other 11-17-2021 Evaluation note* Encounter Date Diagnosis Assessment Notes Treatment Notes Treatment Clinical Notes Jul, Redundant colon (ICD-10 - Q43.8) Jul, Irritable bowel syndrome with constipation (ICD-10 - K58.1) Increase lactuose to 60cc bid Colonoscopy Jul, Elevated alkaline phosphatase level (ICD-10 - R74.8) Jul, History of hepatitis C (ICD-10 - Z86.19) Jul, Diabetes (ICD-10 - E11.9) [employer] Other 09-27-2021 Evaluation note* Encounter Date Diagnosis [...] adequately hydrate herself to avoid kidney stones. May, Hyperparathyroidism (ICD-10 - E21.3) She has hyperparathyroidism and currently follows with Dr. Sal. May, DM (diabetes mellitu s) (ICD-10 - E11.9) She has ihi-routtkk-yftresgfs type 2 diabetes mellitus currently takes oral [...] avoid any calcium and vitamin D supplement. [employer] Other Evaluation noteNo InformationNort [employer] Document Management software Other Evaluation note* Diagnosis Anemia, normocytic normochromic- Primary Anemia, unspecified [facility] Diagnosis Iron deficiency anemia due to chronic blood loss Iron deficiency anemia secondary to blood loss (chronic) Vitamin B12 deficiency anemia due to selective vitamin B12 malabsorption with proteinuria Other vitamin B12 deficiency anemia [facility] Diagnosis Anemia, normocytic normochromic- Primary Anemia, unspecified [facility] Diagnosis Disorder of airway Unspecified disease of respiratory system Airway obstruction, anatomic Other diseases of respiratory system, not elsewhere classified [facility] Diagnosis Acquired hypothyroidism Unspecified hypothyroidism [facility] Diagnosis Type 2 diabetes mellitus without complication, without long-term current use of insulin ([facility]) [facility]* Diagnosis Diarrhea of presumed infectious origin- Primary Weakness Other malaise and fatigue Type 2 diabetes mellitus without complication, without long-term current use of insulin ([facility]) Hyperparathyroidism ([facility]) Hyperparathyroidism, unspecified [facility] N[facility]ative - Reported* Type Description [...] Surgical History LAPAROSCOPY Hospitalization History SEE ABOVE [employer] Other InstructionsNot on filedocumented in this encounter [facility] SystemInstructionsNot on filedocumented in this encounter [facility] SystemInstructionsNot on filedocumented in this encounter [facility]ative)* Diagnostic Procedure Only (Routine) - Closed Specialty Diagnoses / Procedures Referred By Graham gray Referred To Contact CT IMAGING Diagnoses Disorder of airway Airway obstruction, anatomic Procedures CT NECK SOFT TISSUE WO IVCON CT SCAN OF NECK TISSUE Trev Shah MD [address] [facility] [address] [place] [address] [place] [address] Referral ID Status Reason Start Date Expiration Date V isits Requested Visits Authorized [id number] Closed Auto-Generat ed Referral Patient Cleared - Admin/Chairm an/Director advise to proceed or did not respond 01/21/2021 03/22/2021 3 3 [facility] Consultation (Routine) - Pending Review Specialty Diagnoses / Procedures Referred By Graham gray Referred To Contact Home Health Services Diagnoses Weakness Dk Monge, 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 [address] [place] [address] Referral ID Status Reason Start Date Expiration Date Visits Requested Visits Authorized [id number] Pending Review Specialty Services Required 11/18/2023 11/17/2024 1 1 [facility] Narrative* Diagnostic Procedure Only (Routine) - Closed Specialty Diagnoses / Procedures Referred By Graham t Referred To Contact CT IMAGING Diagnoses Disorder of airway Airway obstruction, anatomic Procedures CT NECK SOFT TISSUE WO IVCON CT SCAN OF NECK TISSUE Trev Shah MD [address] [place] [address] [place] [address] Referral ID Status Reason Start Date Expiration Date V isits Requested Visits Authorized [id number] Closed Auto-Generat ed Referral Patient Cleared - Admin/Chairm an/Director advise to proceed or did not respond 01/21/2021 03/22/2021 3 3 [facility] Summary Purpose Family History No Family History [...] section and content) DATE CREATED AUTHOR [facility]27/2021 [facility] DATE CREATED AUTHOR AUTHOR'S ORGANIZ ATION 07/09/2022 [facility] DATE CREATED AUTHOR AUTHOR'S ORGANIZ ATION 09/03/2022 [facility] DATE CREATED AUTHOR AUTHOR'S ORGANIZ ATION 01/20/2023 [facility] DATE CREATED AUTHOR AUTHOR'S ORGANIZ ATION 11/19/2023 [facility] DATE CREATED AUTHOR AUTHOR'S ORGANIZ ATION 01/05/2024 [facility] REASON FOR VISIT (unrecogniz ed section and [...] or prosecute any alcohol or drug abuse patient.[facility] the event this information is protected by the Federal Confidentiality of Alcohol and Drug Abuse Patient Records regulations: The Federal rules restrict any use of the information to criminally investigate or prosecute any alcohol or drug abuse patient.[facility] the event this information is protected by the Federal Confidentiality of Alcohol and Drug Abuse Patient Records regulations: The Federal rules restrict any use of the information to criminally investigate or prosecute any alcohol or drug abuse patient.[facility] the event this information is protected by the Federal Confidentiality of Alcohol and Drug Abuse Patient Records regulations: The Federal rules restrict any use of the information to criminally investigate or prosecute any alcohol or drug abuse patient.[facility] the event this information is protected by the Federal Confidentiality of Alcohol and Drug Abuse Patient Records regulations: The Federal rules restrict any use of the information to criminally investigate or prosecute any alcohol or drug abuse patient.[facility] the event this information is protected by the Federal Confidentiality of Alcohol and Drug Abuse Patient Records regulations: The Federal rules restrict any use of the information to criminally investigate or prosecute any alcohol or drug abuse patient.[facility] the event this information is protected by the Federal Confidentiality of Alcohol and Drug Abuse Patient Records regulations: The Federal rules restrict any use of the information to criminally investigate or prosecute any alcohol or drug abuse patient.[facility] the event this information is protected by the Federal Confidentiality of Alcohol and Drug Abuse Patient Records regulations: The Federal rules restrict any use of the information to criminally investigate or prosecute any alcohol or drug abuse patient.[facility] Care Teams (unrecognized sec tion and content) Phone Screener Relationship Specialty Start Date End Date Kostas Steward, DO [address] [place] [address] PCP - General Family Practice 05/14/22 Phone Screener Relationship Specialty Start Date End Date Kostas Steward, DO [address] [place] [address] PCP - General Family Practice 05/14/22 Phone Screener Relationship Specialty Start Date End Date Kostas Steward, DO [address] [place] [address] PCP - General Family Medicine 05/14/22 Phone Screener Relationship Specialty Start Date End Date Kostas Steward, DO [address] [place] [address] PCP - General Family Medicine 05/14/22 Phone Screener Relationship Specialty Start Date End Date Kostas Steward, DO [address] [place] [address] PCP - General Family Medicine 05/14/22 Phone Screener Relationship Specialty Start Date End Date Jose Stewardnis Otoniel, DO [address] [place] [address] PCP - General Family Medicine 05/14/22 Phone Screener Relationship Specialty Start Date End Date Kostas Steward, DO [address] [place] [address] PCP - General Family Medicine 05/14/22 Phone Screener Relationship Specialty Start Date End Date Conor Herrera PCP - General Family Medicine 10/25/13 05/13/22 Phone Screener Relationship Specialty Start Date End Date Kostas Steward DO [address] [place] [address] PCP - [facility] Family Medicine 05/28/22 Phone Screener Relationship Specialty Start Date End Date Kostas Steward DO [address] [place] [address] PCP - General Family Medicine 05/28/22 Phone Screener Relationship Specialty Start Date End Date Kostas Steward DO [address] [place] [address] PCP - General Family Medicine 05/28/22 FOR [...] BE BASED ON THE PRIMARY CLINICAL RECORDS. [facility] [employer] [facility]. provides no warranty or guarantee of the accuracy or completeness of information in this document.
[2024-01-11 21:25] VITALS: BP 188/104; PULSE 109; TEMP 36.7; O2SAT 100; BMI 20.1
--- NOTE | 2024-01-11 21:38 | ECG_ITS ---
[facility] Test Date: 2024-01-11 Pat Name: KAYA SCHILLING Department: Room: - Gender: Female [employer]: : 1965 Requested By: KATHY STEWARD Order Number: [id number] Reading MD: MARITZA SUBRAMANIAN Measurements Intervals [place] Rate: 97 P: 84 [place]: 188 QRS: 85 QRSD: 84 T: 90 QT: 334 QTc: 389 Interpretive Statements [address] depression, can't exclude inferolateral ischemia [address] & Twave abnormality 9150 abnormal ECG Electronically Signed On 01-12-2024 6:59:15 EDT by MARITZA SUBRAMANIAN
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
[2024-01-11] MEDS: 0.9 % SODIUM CHLORIDE 1,000 ML 1000 ML IV (22:28)
[2024-01-11] MEDS: DIPHENHYDRAMINE HCL 50 MG/ML (1ML) VIAL 12.5 MG IV (22:28)
[2024-01-11] MEDS: METOCLOPRAMIDE HCL 10 MG/2 ML VIAL IVP (22:29)
[2024-01-11] MEDS: FAMOTIDINE/PF 20 MG/2 ML VIAL IV (22:29)
[2024-01-11 22:37] LABS: Basophils Percent Auto 0.3 % (0.2-2.0); Eosinophils Absolute Auto 0.2 10^3/uL (0.0-0.7); Eosinophils Percent Auto 3.5 % (0.9-7.0); Hematocrit 28.3 % (36.0-48.0); Immature Granulocytes Abs Auto 0.01 10^3/uL (0.00-0.03); Immature Granulocytes Pct Auto 0.2 % (0.0-0.5); Lymphocytes Absolute Auto 1.5 10^3/uL (1.2-3.8); Mean Corpuscular HGB Conc 35.3 g/dL (29.9-35.2); Mean Corpuscular Volume 101.8 fL (81.0-99.0); Mean Platelet Volume 8.5 fL (9.5-13.5); Monocytes Absolute Auto 0.3 10^3/uL (0.3-0.8); Platelet Count 413 10^3/uL (150-450); Red Blood Count 2.78 10^6/uL (4.20-5.40); Red Cell Distribution Width 19.5 % (11.0-15.0)
[2024-01-11 22:52] LABS: Lactate/Lactic Acid 1.5 mmol/L (0.4-2.0)
[2024-01-11 22:57] LABS: Alanine Aminotransferase 16 U/L (14-59); Albumin Globulin Ratio 0.9; Albumin Level 3.5 g/dL (3.4-5.0); Alkaline Phosphatase 129 U/L (46-116); Anion Gap 13.8; Aspartate Amino Transferase 14 U/L (15-37); BUN Creatinine Ratio 11.4; Bilirubin Total 1.1 mg/dL (0.2-1.0); Calcium 11.2 mg/dL (8.5-10.1); Carbon Dioxide 21.6 mmol/L (21.0-32.0); Chloride 100 mmol/L (98-107); Estimated GFR (African America 50 (>=60); Estimated GFR (Non-African Ame 41 (>=60); Globulin 3.8 g/dL; Glucose 155 mg/dL (74-106); Potassium 3.4 mmol/L (3.5-5.1); Sodium 132 mmol/L (136-145); Thyroid Stimulating Hormone 35.209 uIU/mL (0.358-3.740); Total Protein 7.3 g/dL (6.4-8.2)
[2024-01-11 23:04] LABS: Acetone NEGATIVE (NEGATIVE)
[2024-01-11 23:37] VITALS: BP 184/91; PULSE 93; O2SAT 96
[2024-01-11 23:43] LABS: Bilirubin Urine NEGATIVE (NEGATIVE); Blood Urine NEGATIVE (NEGATIVE); Clarity Urine CLEAR (CLEAR); Color Urine LT. YELLOW (YELLOW); Glucose Urine UA NEGATIVE (NEGATIVE); Ketones Urine NEGATIVE (NEGATIVE); Leukocyte Esterase Urine TRACE (NEGATIVE); Nitrite Urine NEGATIVE (NEGATIVE); Protein Urine NEGATIVE (NEG/TRACE); Specific Gravity Urine <=1.005 (1.005-1.025); Urobilinogen Urine 0.2 EU/dL (0.2-1.0); pH Urine 6.5 (5.0-9.0)
[2024-01-11 23:49] LABS: Bacteria Urine NONE SEEN #/HPF (NONE SEEN); Cast Seen? NONE SEEN #/LPF (NONE SEEN); Crystals Seen? None Seen #/HPF (None Seen); Mucus Urine NONE SEEN (NONE SEEN); RBC Urine NONE SEEN #/HPF (0-2); Squamous Epithelial Cell Urine RARE #/LPF (NONE/RARE); Urine Culture Indicated NO; WBC Urine 0-2 #/HPF (NONE SEEN)
[2024-01-12 00:27] VITALS: BP 181/88; PULSE 101; O2SAT 97
[2024-01-12 01:25] VITALS: BP 150/90; PULSE 98; O2SAT 99
== END 2024-01-12 01:28 | disposition home or self-care (01) ==
PROVIDERS: Emergency Provider Emergency Medicine; PCP Family Medicine
DX: K52.9 Noninfective gastroenteritis and colitis, unspecified (principal); E11.9 Type 2 diabetes mellitus without complications; R42 Dizziness and giddiness; Z79.899 Other long term (current) drug therapy; B19.20 Unspecified viral hepatitis C without hepatic coma; F31.9 Bipolar disorder, unspecified; J44.9 Chronic obstructive pulmonary disease, unspecified; F41.9 Anxiety disorder, unspecified; M81.0 Age-related osteoporosis without current pathological fracture; K21.9 Gastro-esophageal reflux disease without esophagitis; Z86.16 Personal history of COVID-19; E78.00 Pure hypercholesterolemia, unspecified; E03.9 Hypothyroidism, unspecified; Z98.51 Tubal ligation status; Z79.84 Long term (current) use of oral hypoglycemic drugs; R11.2 Nausea with vomiting, unspecified
CPT/HCPCS: 36415; 80053; 81001; 82009; 83605; 83690; 84443; 85025; 87507; 93005; 96361; 96374; 96375; 99284

== ENCOUNTER 2024-02-02 16:22 | Emergency (ER) | payer OTHER, SELFPAY ==
--- NOTE | 2024-02-02 16:27 | ECG_ITS ---
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
[2024-02-02 16:29] VITALS: BP 200/110; PULSE 98; O2SAT 96
[2024-02-02 16:59] LABS: Basophils Percent Auto 0.4 % (0.2-2.0); Eosinophils Absolute Auto 0.1 10^3/uL (0.0-0.7); Eosinophils Percent Auto 2.5 % (0.9-7.0); Hematocrit 24.8 % (36.0-48.0); Hemoglobin 8.5 g/dL (12.0-16.0); Immature Granulocytes Abs Auto 0.02 10^3/uL (0.00-0.03); Immature Granulocytes Pct Auto 0.4 % (0.0-0.5); Lymphocytes Absolute Auto 1.1 10^3/uL (1.2-3.8); Mean Corpuscular HGB Conc 34.3 g/dL (29.9-35.2); Mean Corpuscular Hemoglobin 38.3 pg (26.7-34.0); Mean Corpuscular Volume 111.7 fL (81.0-99.0); Mean Platelet Volume 8.7 fL (9.5-13.5); Monocytes Absolute Auto 0.4 10^3/uL (0.3-0.8); Monocytes Percent Auto 7.4 % (1.7-12.0); Neutrophils Absolute Auto 3.8 10^3/uL (1.4-6.5); Neutrophils Percent Auto 69.3 % (43.0-75.0); Platelet Count 360 10^3/uL (150-450); Red Blood Count 2.22 10^6/uL (4.20-5.40); Red Cell Distribution Width 19.8 % (11.0-15.0); White Blood Count 5.5 10^3/uL (4.0-11.0)
[2024-02-02 17:02] VITALS: BP 200/110
[2024-02-02] MEDS: ENALAPRILAT DIHYDRATE 1.25 MG/ML VIAL IV (17:02)
[2024-02-02] MEDS: LABETALOL HCL 20 MG/4 ML SYRINGE 10 MG IVP (17:03)
[2024-02-02 17:10] LABS: Alanine Aminotransferase 14 U/L (14-59); Albumin Globulin Ratio 0.9; Albumin Level 3.3 g/dL (3.4-5.0); Alkaline Phosphatase 97 U/L (46-116); Anion Gap 12.4; Aspartate Amino Transferase 11 U/L (15-37); BUN Creatinine Ratio 10.8; Bilirubin Total 0.7 mg/dL (0.2-1.0); Calcium 10.4 mg/dL (8.5-10.1); Carbon Dioxide 25.6 mmol/L (21.0-32.0); Chloride 103 mmol/L (98-107); Estimated GFR (African America >60 (>=60); Estimated GFR (Non-African Ame 50 (>=60); Globulin 3.8 g/dL; Glucose 194 mg/dL (74-106); Salicylate <2.8 mg/dL (<=19.9); Sodium 137 mmol/L (136-145); Total Protein 7.1 g/dL (6.4-8.2)
[2024-02-02 17:22] VITALS: PULSE 98
[2024-02-02 17:31] VITALS: BP 110/60
[2024-02-02 17:40] LABS: Amphetamine Screen Urine NEGATIVE (NEGATIVE); Barbiturates Screen Urine NEGATIVE (NEGATIVE); Benzodiazepines Screen Urine POSITIVE (NEGATIVE); Buprenorphine Screen Urine NEGATIVE (NEGATIVE); Cannabinoid Screen Urine NEGATIVE (NEGATIVE); Cocaine Screen Urine NEGATIVE (NEGATIVE); Methadone Screen Urine NEGATIVE (NEGATIVE); Methamphetamines Screen Urine NEGATIVE (NEGATIVE); Opiate Screen Urine NEGATIVE (NEGATIVE); Oxycodone Screen Urine NEGATIVE (NEGATIVE); Phencyclidine Screen Urine NEGATIVE (NEGATIVE); Tricyclic Antidepressant Urine NEGATIVE (NEGATIVE)
[2024-02-02 17:41] LABS: Acetaminophen <2.0 ug/mL (10.0-30.0); Ethanol <3 mg/dL
[2024-02-02] MEDS: 0.9 % SODIUM CHLORIDE 1,000 ML 1000 ML IV (17:51)
[2024-02-02] MEDS: BUTALB/ACETAMINOPHEN/CAFFEINE 50-325-40MG TABLET 1 TAB PO (17:51)
== END 2024-02-02 19:27 | disposition home or self-care (01) ==
PROVIDERS: Physician Assistant; Emergency Provider Emergency Medicine; PCP Family Medicine
DX: F32.A Depression, unspecified (principal); I10 Essential (primary) hypertension; D64.9 Anemia, unspecified
CPT/HCPCS: 36415; 80053; 80179; 80307; 80320; 80329; 85025; 93005; 96374; 96375; 99285

== ENCOUNTER 2024-02-13 14:13 | Emergency (ER) | payer OTHER, SELFPAY ==
[2024-02-13 14:17] VITALS: BP 157/91; PULSE 108; TEMP 37.2; O2SAT 100; BMI 19.7
--- OUTSIDE RECORDS SUMMARY | 2024-02-13 14:19 | XMS_ITS | CCD ---
Demographics Address [address] [place] [address] Preferred Language en Marital Status Single Jain Affiliation Unknown Race White Ethnic Group Not or Lati no Author Organization [facility] Care Team Providers Care Cfd Engineer Name Role Phone Brynn Holliday Unavailable Neo Calhoun Unavailable Kostas Steward DO [...] Unavailable ARTURO, DR KARINA Hart Admitting Unavailable ALTOONA, DR JUSTINA Cardoso Consulting Unavailable ARTURO, DR [...] RAND Admitting Unavailable Linnette Avendano Consulting Unavailable ATTILA RAND Consulting Unavailable HAY ., DR OLIVEIRA Attending [...] FURLONG, DR KOSTAS Hough Primary Care Unavailable NIKOLAI, ROYAL Consulting Unavailable ROYAL MENCHACA Admitting Unavailable NIKOLAI, ROYAL Attending Unavailable FURLONG, DR KOSTAS Hough Primary Care Unavailable FURLONG, DR KOSTAS Hough Consulting Unavailable FURLONG, DR KOSTAS Hough Attending Unavailable FURLONG, DR KOSTAS Hough Admitting Unavailable FURLONG, DR KOSTAS Hough Primary Care Unavailable FURLONG, DR KOSTAS Hough Consulting Unavailable FURLONG, DR KOSTAS Hough Attending Unavailable FURLONG, DR KOSTAS Hough Admitting Unavailable Conor Herrera Primary Care Provider Unavailreed e Kostas Steward DO Primary Care Provider KOSTAS STEWARD Referring Unavailable FURLONGKOSTAS Primary Care Unavailable FURLONGKOSTAS Referring Unavailable FURLONGKOSTAS Primary Care Unavailable ANNA MARIE MONGE Attending Unavailable HARPREETLOKOSTAS NAVAS Referring Unavailable FURLONGKOSTAS Primary Care Unavailable FURLONGKOSTAS Attending Unavailable FURLONGKOSTAS Referring Unavailable FURLONGKOSTAS Primary Care Unavailable FURLONG, KOSTAS Hough Attending Unavailable FURLONGKOSTAS Referring Unavailable FURLONG, KOSTAS Hough Primary Care Unavailable FURLONGKOSTAS Attending Unavailable FURLONGKOSTAS Referring Unavailable FURLONG, KOSTAS Hough Primary Care Unavailable Dajuan Whaley Attending Unavailab Dajuan Condon Admitting Unavailab Shaikh Fox Primary Care Unavailable Allergies Allergy Classification Reported Allergen(s) Allergy Type Date of Onset Reaction(s) Facility (8 sources) Butorphanol; Translations: [Stadol] Drug Allergy 4 migraines, vomiting [facility] (17 sources) Acetaminophen / oxyCODONE; Translations: [OXYCODONE-ACETAM INOPHEN] Drug Allergy 5 GI Upset [facility] (17 sources) Butorphanol; Translations: [BUTORPHANOL TARTRATE] Drug Allergy 4 Vomiting [facility] (2 sources) Acetaminophen / oxyCODONE Drug Allergy [facility] (8 sources) vortioxetine; Translations: [VORTIOXETINE] [facility] Butorphanol Drug Allergy 1 [facility] Rep[facility] Medications Current Medications Medication [...] (12 sources) HMG-CoA Reductase Inhibitor Start: 06-22-20 22 take 1 tablet by mouth in the [...] 10.5 mg capsule (6 sources) Start: 08-12-20 take 1 capsule by mouth in the morning CAPLYTA 10.5 mg capsule Take 1 capsule by mouth in the morning. 0 08/12/2022 Active dapagliflozin 10 mg oral tablet (6 sources) Sodium-Glucose Cotransporter 2 Inhibitor Start: 03-18-20 take 1 tablet by mouth in the morning dapagliflozin propanediol (FARXIGA) 10 mg tablet Indications: Type 2 diabetes mellitus with diabetic polyneuropathy, without long-term current use of insulin ([facility]) Take 1 tablet (10 mg total) by [...] spray(s) nasal route three times daily Ipratropium [place] 0.06 % 2 sprays in each nostril [...] 0 10/18/2013 05/22/2022 Discontinued (Changing Therapy/Dosage Form) [place] Carbonat e 150 MG 1 capsule Orally [...] complication, without long-term current use of insulin ([facility]) TAKE 1 TABLET (1000 MG [...] oral tablet (7 sources) Phenothiazine Start: 11-17-19 End: 11-22-19 24 take 1 tablet by [...] oral solution (16 sources) Osmotic Laxative Start: 2 lactulose (DUPHALAC, CONSTULOSE) 10 gram/15 mL solution [...] loss (chronic)] Chronic Deficiency and other anemia (2 sources) Iron deficiency anemia secondary to blood loss [...] Onset: 1 Resolved: 1 Chronic Essential hypertension (20 sources) Hypertensive disorder; Translations: [Essential (primary) hypertension] [...] 02-21-2015 Chronic Other aftercare (5 sources) Other extermination inspector (current) drug therapy; Translations: [OTH JAIL CURRENT DRUG THERAPY] Onset: 2 Episodic Other aftercare (1 source) [facility] (current) use of oral hypoglycemic drugs; Translations: [JAIL USE ORAL HYPOGLYCEMIC DX] Onset: 3 Episodic Other bone disease and musculoskeletal deformities (1 source) Segmental and somatic dysfunction of thoracic region; Translations: [Segmental and somatic dysfunction of thoracic region] Onset: 4 Episodic Other ear and sense organ disorders (6 sources) Sensorineural hearing loss, bilateral; Translations: [Sensorineural hearing loss, bilateral] Onset: 3 08-23-2023 Chronic Other ear and sense organ disorders (4 sources) Otalgia, right ear; Translations: [OTALGIA RIGHT EAR] Onset: 3 Episodic Other endocrine disorders (8 sources) Hyperparathyroidism; Translations: [Hyperparathyroidism, unspecified] Onset: 4 11-20-2023 Chronic Other endocrine disorders (3 sources) Hyperparathyroidism, unspecified; Translations: [Hyperparathyroidism E21.3] Onset: 1 [...] Chronic Other nutritional; endocrine; and metabolic disorders (2 sources) Hypercalcemia; Translations: [Hypercalcemia E83.52] Onset: 1 Resolved: 1 Chronic Other nutritional; endocrine; and metabolic disorders (6 sources) Body mass index 25-29 - overweight; Translations: [Body mass index (BMI) 27.0-27.9, adult] Episodic Other upper respiratory disease (6 sources) [...] of digestive tract] Onset: 3 08-23-2023 Episodic Residual codes; unclassified (1 source) Pain Onset: 4 Episodic Respiratory failure; insufficiency; arrest (adult) (1 source) Chronic respiratory failure with hypoxia; Translations: [CHRONIC RESPIRATORY FAIL W/HYPOXIA] Onset: 3 Chronic Spondylosis; intervertebral disc disorders; other back problems (20 sources) Neck pain; Translations: [Cervicalgia] Onset: 5 02-21-2015 Episodic Superficial injury; contusion (3 sources) Abrasion of other part of head, initial encounter; Translations: [Abrasion, right knee, initial encounter] Onset: 3 Episodic Thyroid disorders (15 sources) Hypothyroidism; Translations: [Hypothyroidism, unspecified] Onset: 2 09-03-2023 Chronic Thyroid disorders (8 sources) Disorder of thyroid gland; Translations: [Disorder of thyroid, unspecified] 02-21-2015 Episodic Unclassified (2 sources) COUGH, UNSPECIFIED; Translations: [COUGH, UNSPECIFIED] Onset: 3 Unclassified (1 source) CONTACT W/AND (SUSP) EXPOS COVID-19; Translations: [CONTACT W/AND (SUSP) EXPOS COVID-19] Onset: 2 Viral infection (3 sources) COVID-19; Translations: [COVID-19] Onset: 3 Past or Other Problems Problem Classification Problem [...] 05-25-2022 05-25-2022 Episodic Deficiency and other anemia (7 sources) Anemia, unspecified; Translations: [Anemia, normocytic normochromic] [...] forms of dyspnea] Onset: 10-08-2022 10-08-2022 Episodic Other screening for suspected conditions (not mental disorders or infectious disease) (1 source) Encounter for screening mammogram for malignant neoplasm of breast; Translations: [Encounter for screening mammogram for malignant neoplasm of breast] Onset: 08-23-2023 Episodic Pneumonia (except that caused by tuberculosis or sexually transmitted disease) (14 sources) Pneumonia; Translations: [Pneumonia, unspecified organism] Onset: 08-25-2022 Resolved: 03-15-2023 02-21-2015 Episodic Residual codes; unclassified (1 source) Procedure and treatment not carried out because of patient's decision for other reasons; Translations: [PROC AND TX NOT CARRIED OUT PT [facility]] Onset: 09-29-2022 Episodic Screening and history of mental health and substance abuse codes (1 source) Personal history of nicotine dependence; Translations: [PERSONAL HISTORY OF NICOTINE DEPEND] Onset: 09-29-2022 Episodic Skull and face fractures (14 sources) Fracture of bone of head; Translations: [Fracture of mandible, unspecified, initial encounter for closed fracture] Onset: 08-25-2022 09-01-2021 Episodic Sprains and strains (12 sources) Strain of neck muscle; Translations: [Strain of muscle, fascia and tendon at neck level, initial encounter] Onset: 06-28-2023 08-23-2023 Episodic Unclassified (1 source) COUGH, UNSPECIFIED; Translations: [COUGH, UNSPECIFIED] Onset: 09-12-2022 Viral infection (1 source) Viral infection, unspecified; Translations: [VIRAL INFECTION UNSPECIFIED] Onset: 07-10-2022 Episodic Results Test Name Value Interpretation Reference Range Facility COMPLETE BLOOD COUNTon 01-20 Erythrocyte distribution width (RBC) [Ratio] 22.6 % High 11.5-15.0 [facility] Comment on above: Performed By: #### C BC, CMP, HA1C #### [facility] ([id number]) [address], [address] [place] [address] Hematocrit (Bld) [Volume fraction] 27.1 % Low 35-47 [facility] Comment on above: Performed By: #### C DILCIA CMP, HA1C #### [facility] ([id number]) [address], [facility] [address] [place] [address] Hemoglobin (Bld) [Mass/Vol] 9.1 g/dL Low 11.7-15.5 [facility] Comment on above: Performed By: #### C BC CMP, HA1C #### [facility] ([id number]) [address], [address] [place] [address] MCH (RBC) [Entitic mass] 36.9 pg High 27-34 [facility] Comment on above: Performed By: #### C BC, CMP, HA1C #### [facility] ([id number]) [address], [address] [place] [address] MCHC (RBC) [Mass/Vol] 33.7 g/dL Normal 32-36 [facility] Comment on above: Performed By: #### C BC, CMP, HA1C #### [facility] ([id number]) [address], [address] [place] [address] MCV (RBC) [Entitic vol] 109 fL High 80-100 [facility] Comment on above: Performed By: #### C BC, CMP, HA1C #### [facility] ([id number]) [address], [address] [place] [address] Platelet mean volume (Bld) [Entitic vol] 6.8 fL Low 7-12 [facility] Comment on above: Performed By: #### C BC, CMP, HA1C #### [facility] ([id number]) [address], [facility] [address] [place] [address] Platelets (Bld) [#/Vol] 397 10*3/uL Normal 150-450 [facility] Comment on above: Performed By: #### C BC, CMP, HA1C #### [facility] ([id number]) [address], [facility] [address] [place] [address] RBC COUNT 2.47 X10E12/L Low 3.80-5.20 [facility] Comment on above: Performed By: #### C BC, CMP, HA1C #### [facility] ([id number]) [address], [address] [address] WBC (Bld) [#/Vol] 4.8 10*3/uL Normal 4.0-11.0 [facility] Comment on above: Performed By: #### C BC, CMP, HA1C #### [facility] ([id number]) [address], [facility] [address] [place] [address] COMPREHENSIVE METABOLIC PANE Jj 01-21-2024 Albumin [Mass/Vol] 3.9 g/dL Normal 3.2-5.3 [facility] Comment on above: Performed By: #### C BC, CMP, HA1C #### [facility] ([id number]) [address], [address] [place] [address] ALP [Catalytic activity/Vol] 89 U/L Normal 39-130 [facility] Comment on above: Performed By: #### C BC, CMP, HA1C #### [facility] ([id number]) [address], [address] [place] [address] ALT [Catalytic activity/Vol] 8 U/L Normal 0-31 [facility] Comment on above: Performed By: #### C BC, CMP, HA1C #### [facility] ([id number]) [address], [address] [place] [address] Anion gap [Moles/Vol] 10 mmol/L Normal 5-15 [facility] Comment on above: Performed By: #### C BC, CMP, HA1C #### [facility] ([id number]) [address], [address] [place] [address] AST [Catalytic activity/Vol] 13 U/L Normal 0-41 [facility] Comment on above: Performed By: #### Payton HA CMP, HA1C #### [facility] ([id number]) [address], [address] [place] [address] Bilirubin [Mass/Vol] 0.9 mg/dL Normal 0.3-1.2 [facility] Comment on above: Performed By: #### Payton HA CMP, HA1C #### [facility] ([id number]) [address], [address] [place] [address] Calcium [Mass/Vol] 10.7 mg/dL High 8.5-10.5 [facility] Comment on above: Performed By: #### C DILCIA CMP, HA1C #### [facility] ([id number]) [address], [address] [place] [address] Chloride [Moles/Vol] 104 mmol/L Normal 98-109 [facility] Comment on above: Performed By: #### C BC, CMP, HA1C #### [facility] ([id number]) [address], [address] [place] [address] CO2 [Moles/Vol] 25 mmol/L Normal 22-32 [facility] Comment on above: Performed By: #### C BC, CMP, HA1C #### [facility] ([id number]) [address], [address] [place] [address] Creatinine [Mass/Vol] 1.03 mg/dL High 0.40-1.00 [facility] Comment on above: Result Comment: METH OD TRACEABLE TO IDMS STANDARD Performed By: #### C VALERIE HA, HA1C #### [facility] ([id number]) [address], [address] [place] [address] GFR/1.73 sq M.predicted among non-blacks MDRD (S/P/Bld) [Vol rate/Area] 62 mL/min/{1.73_m2} Normal >59 [facility] Comment on above: Result Comment: Reported eGFR is based on the CKD-EPI 2020 equation that does not use a race coefficient. Performed By: #### C VALERIE HA, HA1C #### [facility] ([id number]) [address], [address] [place] [address] Glucose [Mass/Vol] 175 mg/dL High 65-99 [facility] Comment on above: Performed By: #### Payton AH CMP, HA1C #### [facility] ([id number]) [address] [address] [place] [address] Potassium [Moles/Vol] 3.8 mmol/L Normal 3.5-5.0 [facility] Comment on above: Performed By: #### Payton HA CMP, HA1C #### [facility] ([id number]) [address] [address] [place] [address] Protein [Mass/Vol] 7.0 g/dL Normal 6.0-8.0 [facility] Comment on above: Performed By: #### Payton HA CMP, HA1C #### [facility] ([id number]) [address] [address] [place] [address] Sodium [Moles/Vol] 139 mmol/L Normal 134-146 [facility] Comment on above: Performed By: #### C VALERIE HA, HA1C #### [facility] ([id number]) [address], [address] [place] [address] Urea nitrogen [Mass/Vol] 20 mg/dL Normal 5-23 [facility] Comment on above: Performed By: #### C DILCIA CMP, HA1C #### [facility] ([id number]) [address], [facility] [address] [place] [address] HGB A1C (GLYCO-HGB)on 2023 Glucose [Mass/Vol] 128 mg/dL Normal [facility] Comment on above: Performed By: #### C VALERIE HA, HA1C #### [facility] ([id number]) [address], [facility] [address] [place] [address] HbA1c (Bld) [Mass fraction] 6.1 % High 4.4-5.6 [facility] Comment on above: Result Comment: NOTE ADA Guidelines Result HgbA1c Normal : less than 5.7 % Prediabetes : 5.7 % to 6.4 % Diabetes : > 6.4 % Use with caution in patients with abnormal hemoglobin variants as the half-life of red blood cells and in vivo glycation rates are affected. Performed By: #### C VALERIE HA, HA1C #### [facility] ([id number]) [address], [address] [place] [address] Parathyrin.intact [Mass/Vol] on 01-21-2024 PTH INTACT 130 pg/mL High 12-88 [facility] Comment on above: Performed By: #### 2 731-8 #### [facility] ([id number]) [address], [address] [place] [address] COMPLETE BLOOD COUNTon 08-23 Erythrocyte distribution width (RBC) [Ratio] 17.8 % High 11.5-15.0 [facility] Comment on above: Performed By: #### C DILCIA, CMP #### [facility] ([id number]) [address], [address] [place] [address] Hematocrit (Bld) [Volume fraction] 32.9 % Low 35-47 [facility] Comment on above: Performed By: #### C DILCIA, CMP #### [facility] ([id number]) [address], [address] [place] [address] Hemoglobin (Bld) [Mass/Vol] 11.0 g/dL Low 11.7-15.5 [facility] Comment on above: Performed By: #### C DILCIA, CMP #### [facility] ([id number]) [address], [address] [place] [address] MCH (RBC) [Entitic mass] 31.5 pg Normal 27-34 [facility] Comment on above: Performed By: #### C DILCIA, CMP #### [facility] ([id number]) [address], [address] [place] [address] MCHC (RBC) [Mass/Vol] 33.5 g/dL Normal 32-36 [facility] Comment on above: Performed By: #### C DILCIA, CMP #### [facility] ([id number]) [address], [address] [place] [address] MCV (RBC) [Entitic vol] 94 fL Normal 80-100 [facility] Comment on above: Performed By: #### C DILCIA, CMP #### [facility] ([id number]) [address], [address] [place] [address] Platelet mean volume (Bld) [Entitic vol] 6.8 fL Low 7-12 [facility] Comment on above: Performed By: #### C DILCIA, CMP #### [facility] ([id number]) [address], [address] [place] [address] Platelets (Bld) [#/Vol] 432 10*3/uL Normal 150-450 [facility] Comment on above: Performed By: #### C DILCIA, CMP #### [facility] ([id number]) [address], [address] [place] [address] RBC COUNT 3.50 X10E12/L Low 3.80-5.20 [facility] Comment on above: Performed By: #### C DILCIA, CMP #### [facility] ([id number]) [address], [address] [place] [address] WBC (Bld) [#/Vol] 7.1 10*3/uL Normal 4.0-11.0 [facility] Comment on above: Performed By: #### C DILCIA, CMP #### [facility] ([id number]) [address], [address] [place] [address] COMPREHENSIVE METABOLIC PANE Jj 08-23-2023 Albumin [Mass/Vol] 4.2 g/dL Normal 3.2-5.3 [facility] Comment on above: Performed By: #### Payton HA, CMP #### [facility] ([id number]) [address], [address] [place] [address] ALP [Catalytic activity/Vol] 115 U/L Normal 39-130 [facility] Comment on above: Performed By: #### C DILCIA, CMP #### [facility] ([id number]) [address], [address] [place] [address] ALT [Catalytic activity/Vol] 12 U/L Normal 0-31 [facility] Comment on above: Performed By: #### C DILCIA, CMP #### [facility] ([id number]) [address], [address] [place] [address] Anion gap [Moles/Vol] 8 mmol/L Normal 5-15 [facility] Comment on above: Performed By: #### C DILCIA, CMP #### [facility] ([id number]) [address], [address] [place] [address] AST [Catalytic activity/Vol] 13 U/L Normal 0-41 [facility] Comment on above: Performed By: #### C DILCIA, CMP #### [facility] ([id number]) [address], [address] [place] [address] Bilirubin [Mass/Vol] 0.3 mg/dL Normal 0.3-1.2 [facility] Comment on above: Performed By: #### C DILCIA, CMP #### [facility] ([id number]) [address] [address] [place] [address] Calcium [Mass/Vol] 12.0 mg/dL High 8.5-10.5 [facility] Comment on above: Performed By: #### Payton HA, CMP #### [facility] ([id number]) [address] [address] [place] [address] Chloride [Moles/Vol] 102 mmol/L Normal 98-109 [facility] Comment on above: Performed By: #### Payton HA, CMP #### [facility] ([id number]) [address], [address] [place] [address] CO2 [Moles/Vol] 26 mmol/L Normal 22-32 [facility] Comment on above: Performed By: #### Payton HA, CMP #### [facility] ([id number]) [address] [address] [place] [address] Creatinine [Mass/Vol] 0.80 mg/dL Normal 0.40-1.00 [facility] Comment on above: Result Comment: METH OD TRACEABLE TO IDMS STANDARD Performed By: #### C DILCIA, CMP #### [facility] ([id number]) [address], [address] [place] [address] GFR/1.73 sq M.predicted among non-blacks MDRD (S/P/Bld) [Vol rate/Area] 85 mL/min/{1.73_m2} Normal >59 [facility] Comment on above: Result Comment: Reported eGFR is based on the CKD-EPI 2020 equation that does not use a race coefficient. Performed By: #### C BC, CMP #### [facility] ([id number]) [address], [address] [place] [address] Glucose [Mass/Vol] 152 mg/dL High 65-99 [facility] Comment on above: Performed By: #### C DILCIA, CMP #### [facility] ([id number]) [address], [address] [place] [address] Potassium [Moles/Vol] 4.5 mmol/L Normal 3.5-5.0 [facility] Comment on above: Performed By: #### C DILCIA, CMP #### [facility] ([id number]) [address], [address] [place] [address] Protein [Mass/Vol] 7.2 g/dL Normal 6.0-8.0 [facility] Comment on above: Performed By: #### C DILCIA, CMP #### [facility] ([id number]) [address], [address] [place] [address] Sodium [Moles/Vol] 136 mmol/L Normal 134-146 [facility] Comment on above: Performed By: #### C DILCIA, CMP #### [facility] ([id number]) [address], [address] [place] [address] Urea nitrogen [Mass/Vol] 15 mg/dL Normal 5-23 [facility] Comment on above: Performed By: #### C DILCIA, CMP #### [facility] ([id number]) [address], [address] [place] [address] HGB A1C (GLYCO-HGB)on 2022 Glucose [Mass/Vol] 143 mg/dL Normal [facility] Comment on above: Performed By: #### C BC, CMP #### [facility] ([id number]) [address], [address] [address] HbA1c (Bld) [Mass fraction] 6.6 % High 4.4-5.6 [facility] Comment on above: Result Comment: NOTE ADA Guidelines Result HgbA1c Normal : less than 5.7 % Prediabetes : 5.7 % to 6.4 % Diabetes : > 6.4 % Use with caution in patients with abnormal hemoglobin variants as the half-life of red blood cells and in vivo glycation rates are affected. Performed By: #### C DILCIA, CMP #### [facility] ([id number]) [address] [address] MICROALBUMIN - ALBUMIN:CREAT ININE URINE RATIOon 08-23-2023 ALB/CREAT RATIO 76.0 mg/g creat High 0.0-30.0 [facility] Comment on above: Performed By: #### M ALBU #### [facility] ([id number]) [address], [address] [place] [address] Albumin DL <= 20 mg/L (U) [Mass/Vol] 3.0 mg/dL High 0.0-1.9 [facility] Comment on above: Performed By: #### M ALBU #### [facility] ([id number]) [address], [address] [place] [address] URINE CREAT 39.48 mg/dL Normal [facility] Comment on above: Performed By: #### M ALBU #### [facility] ([id number]) [address] [place] [address] LITHIUMon 12-22-2022 [place] (Eskalith(R)), Serum 0.8 mmol/L Normal 0.5-1.2 [facility] Comment on above: Result Comment: A co ncentration of 0.5-0.8 mmol/L is advised for long-term use; concentrations of up to 1.2 mmol/L may be necessary during acute treatment. Detection Limit = 0.1 <0.1 indicates None Detected Performed By: #### O BSCRN #### [facility] [address] [address] [address] Rosangela Smyth CREATININEon 12-21-2022 Creatinine [Mass/Vol] 0.93 mg/dL Normal 0.55-1.[address] [facility] Comment on above: Performed By: #### L IPID, CMP #### [facility] [address] [place] [address] Dr. Rosangela Smyth EGFR-AF [place]ONG [place]ER >60 Normal >=60 [facility] Comment on above: Performed By: #### L IPID, CMP #### [facility] [address] [place] [address] Dr. Rosangela Smyth EGFR-NON AF [place] >60 Normal >=[address] [facility] Comment on above: Performed By: #### L IPID, CMP #### [facility] [address] [place] [address] Dr. Rosangela Smyth GLUCOSE BLOODon 12-21-2022 Glucose [Mass/Vol] 135 mg/dL Critically high 74-106 [facility] Comment on above: Performed By: #### L IPID, CMP #### [facility] [address] [place] [address] Dr. Rosangela Smyth LIPID PROFILEon 12-21-2022 CHOL-HDL RATIO NORM SEE BELOW Normal [facility] Comment on above: Result Comment: 3.3 - 4.4 LOW RISK 4.4 - 7.1 AVERAGE RISK 7.1 - 11.0 MODERATE RISK >11.0 HIGH RISK Performed By: #### L IPID, CMP #### [facility] [address] [place] [address] Dr. Rosangela Smyth Cholesterol [Mass/Vol] 194 mg/dL Normal <=[address] [facility] Comment on above: Performed By: #### L IPID, CMP #### [facility] [address] [address] [address] Rosangela Smyth Cholesterol in HDL [Mass/Vol] 68 mg/dL Critically high 40-60 [facility] Comment on above: Performed By: #### L IPID, CMP #### [facility] [address] [address] [address] Rosangela Smyth Cholesterol in LDL [Mass/Vol] 106.8 mg/dL Normal [facility] Comment on above: Performed By: #### L IPID, CMP #### [facility] [address] [address] [address] Rosangela Smyth Cholesterol.total/Ch olesterol in HDL [Mass ratio] 2.9 {ratio} Normal [facility] Comment on above: Performed By: #### L IPID, CMP #### [facility] [address] [address] [address] Rosangela Smyth HDL NORMAL > or = 60 mg/dl - LOW CARDIOVASCULAR RISK <40 mg/dl - HIGH CARDIOVASCULAR RISK Normal [facility] Comment on above: Performed By: #### L IPID, CMP #### [facility] [address] [address] [address] Rosangela Smyth LDL CALC NORMAL SEE BELOW Normal [facility] Comment on above: Result Comment: <100 mg/dl OPTIMAL 100 - 129 mg/dl NEAR OR ABOVE OPTIMAL 130 - 159 mg/dl BORDERLINE HIGH 160 - 189 mg/dl HIGH >190 mg/dl VERY HIGH Performed By: #### L IPID, CMP #### [facility] [address] [address] [address] Rosangela Smyth Triglyceride [Mass/Vol] 96 mg/dL Normal <=150 [facility] Comment on above: Performed By: #### L IPID, CMP #### [facility] [address] [address] [address] Rosangela Smyth VLDL CALC 19.2 mg/dL Normal [facility] Comment on above: Performed By: #### L IPID, CMP #### [facility] [address] [address] [address] Rosangela Smyth TSHon 12-21-2022 TSH 2.649 uIU/mL Normal 0.358-3.[address] [facility] Comment on above: Performed By: #### L IPID, CMP #### [facility] [address] [place] [address] Dr. Rosangela Smyth CBC AUTO DIFFon 09-25-2022 BASO # 0.0 103/ul Normal 0.0-0.[address] [facility] Comment on above: Performed By: #### C BC #### [facility] [address] [place] [address] Dr. Rosangela Smyth Basophils/100 WBC (Bld) 0.0 % Critically low 0.2-2.[address] [facility] Comment on above: Performed By: #### C BC #### [facility] [address] [place] [address] Dr. Rosangela Smyth EO # 0.0 103/ul Normal 0.0-0.[address] [facility] Comment on above: Performed By: #### C BC #### [facility] [address] [place] [address] Dr. Rosangela Smyth Eosinophils/100 WBC (Bld) 0.0 % Critically low 0.9-7.[address] [facility] Comment on above: Performed By: #### C BC #### [facility] [address] [place] [address] Dr. Rosangela Smyth Erythrocyte distribution width (RBC) [Ratio] 15.9 % Critically high 11.0-15.[address] [facility] Comment on above: Performed By: #### C BC #### [facility] [address] [place] [address] Dr. Rosangela Smyth Hematocrit (Bld) [Volume fraction] 25.7 % Critically low 36.0-48.[address] [facility] Comment on above: Performed By: #### C BC #### [facility] [address] [place] [address] Dr. Rosangela Smyth Hemoglobin (Bld) [Mass/Vol] 8.3 g/dL Critically low 12.0-16.[address] [facility] Comment on above: Performed By: #### C BC #### [facility] [address] [place] [address] Dr. Rosangela Smyth IG # 0.03 10e3/ul Normal 0.00-0.[address] [facility] Comment on above: Performed By: #### C BC #### [facility] [address] [place] [address] Dr. Rosangela Smyth IG % 0.6 % Critically high 0.0-0.5 [facility] Comment on above: Performed By: #### C BC #### [facility] [address] [place] [address] Dr. Rosangela Smyth LYMPH # 0.7 103/ul Critically low 1.2-3.8 [facility] Comment on above: Performed By: #### C BC #### [facility] [address] [place] [address] Dr. Rosangela Smyth Lymphocytes/100 WBC (Bld) 13.8 % Critically low 20.5-60.[address] [facility] Comment on above: Performed By: #### C BC #### [facility] [address] [place] [address] Dr. Rosangela Smyth MANUAL DIFF REQ NO Normal [facility] Comment on above: Performed By: #### C BC #### [facility] [address] [place] [address] Dr. Rosangela Smyth MCH (RBC) [Entitic mass] 31.1 pg Normal 26.7-34.[address] [facility] Comment on above: Performed By: #### C BC #### [facility] [address] [place] [address] Dr. Rosangela Smyth MCHC (RBC) [Mass/Vol] 32.3 g/dL Normal 29.9-35.2 [facility] Comment on above: Performed By: #### C BC #### [facility] [address] [place] [address] Dr. Rosangela Smyth MCV (RBC) [Entitic vol] 96.3 fL Normal 81.0-99.[address] [facility] Comment on above: Performed By: #### C BC #### [facility] [address] [place] [address] Dr. Rosangela Smyth MONO # 0.3 103/ul Normal 0.3-0.[address] [facility] Comment on above: Performed By: #### C BC #### [facility] [address] [place] [address] Dr. Rosangela Smyth Monocytes/100 WBC (Bld) 4.9 % Normal 1.7-12.[address] [facility] Comment on above: Performed By: #### C BC #### [facility] [address] [place] [address] Dr. Rosangela Smyth NEUT # 4.3 103/ul Normal 1.4-6.[address] [facility] Comment on above: Performed By: #### C BC #### [facility] [address] [place] [address] Dr. Rosangela Smyth Neutrophils/100 WBC (Bld) 80.7 % Critically high 43.0-75.[address] [facility] Comment on above: Performed By: #### C BC #### [facility] [address] [place] [address] Dr. Rosangela Smyth Platelet mean volume (Bld) [Entitic vol] 9.1 fL Critically low 9.5-13.[address] [facility] Comment on above: Performed By: #### C BC #### [facility] [address] [place] [address] Dr. Rosangela Smyth PLT 234 103/ul Normal 150-450 [facility] Comment on above: Performed By: #### C BC #### [facility] [address] [place] [address] Dr. Rosangela Smyth RBC 2.67 106/ul Critically low 4.20-5.40 [facility] Comment on above: Performed By: #### C BC #### [facility] [address] [place] [address] Dr. Rosangela Smyth WBC 5.4 103/ul Normal 4.0-11.[address] [facility] Comment on above: Performed By: #### C BC #### [facility] [address] [place] [address] Dr. Rosangela Smyth PROF CHEM 8 (BAS METB)on Anion gap [Moles/Vol] 11.7 mmol/L Normal [facility] Comment on above: Performed By: #### L IPID, CMP #### [facility] [address] [place] [address] Dr. Rosangela Smyth Calcium [Mass/Vol] 10.5 mg/dL Critically high 8.5-10.1 [facility] Comment on above: Performed By: #### L IPID, CMP #### [facility] [address] [place] [address] Dr. Rosangela Smyth Chloride [Moles/Vol] 114 mmol/L Critically high 98-[address] [facility] Comment on above: Performed By: #### L IPID, CMP #### [facility] [address] [place] [address] Dr. Rosangela Smyth CO2 [Moles/Vol] 21.9 mmol/L Normal 21.0-32.0 [facility] Comment on above: Performed By: #### L IPID, CMP #### [facility] [address] [place] [address] Dr. Rosangela Smyth Creatinine [Mass/Vol] 0.91 mg/dL Normal 0.55-1.[address] [facility] Comment on above: Performed By: #### L IPID, CMP #### [facility] [address] [place] [address] Dr. Rosangela Smyth EGFR-AF [place] >60 Normal >=60 [facility] Comment on above: Performed By: #### L IPID, CMP #### [facility] [address] [place] [address] Dr. Rosangela Smyth EGFR-NON AF [place] >60 Normal >=[address] [facility] Comment on above: Performed By: #### L IPID, CMP #### [facility] [address] [place] [address] Dr. Rosangela Smyth Glucose [Mass/Vol] 108 mg/dL Critically high 74-106 [facility] Comment on above: Performed By: #### L IPID, CMP #### [facility] [address] [place] [address] Dr. Rosangela Smyth Potassium [Moles/Vol] 3.6 mmol/L Normal 3.5-5.[address] [facility] Comment on above: Performed By: #### L IPID, CMP #### [facility] [address] [place] [address] Dr. Rosangela Smyth Sodium [Moles/Vol] 144 mmol/L Normal 136-145 [facility] Comment on above: Performed By: #### L IPID, CMP #### [facility] [address] [place] [address] Dr. Rosangela Smyth Urea nitrogen [Mass/Vol] 20.0 mg/dL Critically high 7.0-18.[address] [facility] Comment on above: Performed By: #### L IPID, CMP #### [facility] [address] [place] [address] Dr. Rosangela Smyth Urea nitrogen/Creatinine [Mass ratio] 22.0 mg/mg Normal [facility] Comment on above: Performed By: #### L IPID, CMP #### [facility] [address] [place] [address] Dr. Rosangela Smyth CBC AUTO DIFFon 09-24-2022 BASO # 0.0 103/ul Normal 0.0-0.[address] [facility] Comment on above: Performed By: #### C BC #### [facility] [address] [place] [address] Dr. Rosangela Smyth Basophils/100 WBC (Bld) 0.0 % Critically low 0.2-2.[address] [facility] Comment on above: Performed By: #### C BC #### [facility] [address] [place] [address] Dr. Rosangela Smyth EO # 0.0 103/ul Normal 0.0-0.[address] [facility] Comment on above: Performed By: #### C BC #### [facility] [address] [place] [address] Dr. Rosangela Smyth Eosinophils/100 WBC (Bld) 0.0 % Critically low 0.9-7.[address] [facility] Comment on above: Performed By: #### C BC #### [facility] [address] [place] [address] Dr. Rosangela Smyth Erythrocyte distribution width (RBC) [Ratio] 15.7 % Critically high 11.0-15.[address] [facility] Comment on above: Performed By: #### C BC #### [facility] [address] [place] [address] Dr. Rosangela Smyth Hematocrit (Bld) [Volume fraction] 30.3 % Critically low 36.0-48.[address] [facility] Comment on above: Performed By: #### C BC #### [facility] [address] [place] [address] Dr. Rosangela Smyth Hemoglobin (Bld) [Mass/Vol] 9.5 g/dL Critically low 12.0-16.[address] [facility] Comment on above: Performed By: #### C BC #### [facility] [address] [place] [address] Dr. Rosangela Smyth IG # 0.02 10e3/ul Normal 0.00-0.[address] [facility] Comment on above: Performed By: #### C BC #### [facility] [address] [place] [address] Dr. Rosangela Smyth IG % 0.6 % Critically high 0.0-0.5 [facility] Comment on above: Performed By: #### C BC #### [facility] [address] [place] [address] Dr. Rosangela Smyth LYMPH # 0.6 103/ul Critically low 1.2-3.8 [facility] Comment on above: Performed By: #### C BC #### [facility] [address] [place] [address] Dr. Rosangela Smyth Lymphocytes/100 WBC (Bld) 17.7 % Critically low 20.5-60.[address] [facility] Comment on above: Performed By: #### C BC #### [facility] [address] [place] [address] Dr. Rosangela Smyth MANUAL DIFF REQ NO Normal [facility] Comment on above: Performed By: #### C BC #### [facility] [address] [place] [address] Dr. Rosangela Smyth MCH (RBC) [Entitic mass] 30.6 pg Normal 26.7-34.0 [facility] Comment on above: Performed By: #### C BC #### [facility] [address] [place] [address] Dr. Rosangela Smyth MCHC (RBC) [Mass/Vol] 31.4 g/dL Normal 29.9-35.2 [facility] Comment on above: Performed By: #### C BC #### [facility] [address] [place] [address] Dr. Rosangela Smyth MCV (RBC) [Entitic vol] 97.7 fL Normal 81.0-99.0 [facility] Comment on above: Performed By: #### C BC #### [facility] [address] [place] [address] Dr. Rosangela Smyth MONO # 0.1 103/ul Critically low 0.3-0.8 [facility] Comment on above: Performed By: #### C BC #### [facility] [address] [place] [address] Dr. Rosangela Smyth Monocytes/100 WBC (Bld) 2.5 % Normal 1.7-12.0 [facility] Comment on above: Performed By: #### C BC #### [facility] [address] [place] [address] Dr. Rosangela Smyth NEUT # 2.5 103/ul Normal 1.4-6.5 [facility] Comment on above: Performed By: #### C BC #### [facility] [address] [place] [address] Dr. Rosangela Smyth Neutrophils/100 WBC (Bld) 79.2 % Critically high 43.0-75.0 [facility] Comment on above: Performed By: #### C BC #### [facility] [address] [place] [address] Dr. Rosangela Smyth Platelet mean volume (Bld) [Entitic vol] 8.9 fL Critically low 9.5-13.5 [facility] Comment on above: Performed By: #### C BC #### [facility] [address] [address] [address] Rosangela Smyth PLT 218 103/ul Normal 150-[address] [facility] Comment on above: Performed By: #### C BC #### [facility] [address] [address] [address] Rosangela Smyth RBC 3.10 106/ul Critically low 4.20-5.40 [facility] Comment on above: Performed By: #### C BC #### [facility] [address] [address] [address] Rosangela Smyth WBC 3.2 103/ul Critically low 4.0-11.0 [facility] Comment on above: Performed By: #### C BC #### [facility] [address] [place] [address] Dr. Rosangela Smyth POINT OF CARE GLUCOSEon 09-06 Glucose [Mass/Vol] 291 mg/dL Critically high 74-106 [facility] Comment on above: Performed By: #### P OCGLUC #### [facility] [address] [place] [address] Dr. Rosangela Smyth PROF CHEM 8 (BAS METB)on Anion gap [Moles/Vol] 14.6 mmol/L Normal [facility] Comment on above: Performed By: #### L ACT #### [facility] [address] [place] [address] Dr. Rosangela Smyth Calcium [Mass/Vol] 10.7 mg/dL Critically high 8.5-10.1 [facility] Comment on above: Performed By: #### L ACT #### [facility] [address] [place] [address] Dr. Rosangela Smyth Chloride [Moles/Vol] 113 mmol/L Critically high 98-[address] [facility] Comment on above: Performed By: #### L ACT #### [facility] [address] [place] [address] Dr. Rosangela Smyth CO2 [Moles/Vol] 20.7 mmol/L Critically low 21.0-32.[address] [facility] Comment on above: Performed By: #### L ACT #### [facility] [address] [address] [address] Rosangela Smyth Creatinine [Mass/Vol] 0.86 mg/dL Normal 0.55-1.[address] [facility] Comment on above: Performed By: #### L ACT #### [facility] [address] [address] [address] Rosangela Smyth EGFR-AF [place] >60 Normal >=60 [facility] Comment on above: Performed By: #### L ACT #### [facility] [address] [address] [address] Rosangela Smyth EGFR-NON AF [place] >60 Normal >=[address] [facility] Comment on above: Performed By: #### L ACT #### [facility] [address] [place] [address] Dr. Rosangela Smyth Glucose [Mass/Vol] 279 mg/dL Critically high 74-106 [facility] Comment on above: Performed By: #### L ACT #### [facility] [address] [address] [address] Rosangela Smyth Potassium [Moles/Vol] 4.3 mmol/L Normal 3.5-5.[address] [facility] Comment on above: Performed By: #### L ACT #### [facility] [address] [place] [address] Dr. Rosangela Smyth Sodium [Moles/Vol] 144 mmol/L Normal 136-145 [facility] Comment on above: Performed By: #### L ACT #### [facility] [address] [address] [address] Rosangela Smyth Urea nitrogen [Mass/Vol] 14.0 mg/dL Normal 7.0-18.[address] [facility] Comment on above: Performed By: #### L ACT #### [facility] [address] [place] [address] Dr. Rosangela Smyth Urea nitrogen/Creatinine [Mass ratio] 16.3 mg/mg Normal [facility] Comment on above: Performed By: #### L ACT #### [facility] [address] [place] [address] Dr. Rosangela Smyth CARDIAC CRYSTAL ADMITon 023 CK [Catalytic activity/Vol] 22 U/L Critically low 26-[address] [facility] Comment on above: Performed By: #### L IPID, CMP #### [facility] [address] [place] [address] Dr. Rosangela Smyth CK.MB [Mass/Vol] ng/mL Normal <=3.60 [facility] Comment on above: Performed By: #### L IPID, CMP #### [facility] [address] [place] [address] Dr. Rosangela Smyth HSTROP 5.7 pg/mL Normal 4.0-51.3 [facility] Comment on above: Result Comment: CUT- OFF POINTS HAVE BEEN ESTABLISHED BASED ON THE FOURTH UNIVERSAL DEFINITIONS OF MYOCARDIAL INFARCTION. THE UPPER REFERENCE LIMIT (URL) OF TROPONIN, DEFINED THE 99TH PERCENTILE OF cTnI DISTRIBUTION IN A REFERENCE POPULATION, HAS BEEN CONFIRMED THE DECISION THRESHOLD FOR [place] DIAGNOSIS. Performed By: #### L IPID, CMP #### [facility] [address] [place] [address] Dr. Rosangela Smyth JOVAN 40 ng/mL Normal 9-82 [facility] Comment on above: Performed By: #### L IPID, CMP #### [facility] [address] [place] [address] Dr. Rosangela Smyth CBC AUTO DIFFon 09-23-2022 BASO # 0.0 103/ul Normal 0.0-0.[address] [facility] Comment on above: Performed By: #### L ACT #### [facility] [address] [place] [address] Dr. Rosangela Smyth Basophils/100 WBC (Bld) 0.0 % Critically low 0.2-2.[address] [facility] Comment on above: Performed By: #### L ACT #### [facility] [address] [place] [address] Dr. Rosangela Smyth EO # 0.1 103/ul Normal 0.0-0.[address] [facility] Comment on above: Performed By: #### L ACT #### [facility] [address] [place] [address] Dr. Rosangela Smyth Eosinophils/100 WBC (Bld) 1.8 % Normal 0.9-7.[address] [facility] Comment on above: Performed By: #### L ACT #### [facility] [address] [place] [address] Dr. Rosangela Smyth Erythrocyte distribution width (RBC) [Ratio] 15.6 % Critically high 11.0-15.[address] [facility] Comment on above: Performed By: #### L ACT #### [facility] [address] [place] [address] Dr. Rosangela Smyth Hematocrit (Bld) [Volume fraction] 26.0 % Critically low 36.0-48.[address] [facility] Comment on above: Performed By: #### L ACT #### [facility] [address] [place] [address] Dr. Rosangela Smyth Hemoglobin (Bld) [Mass/Vol] 8.5 g/dL Critically low 12.0-16.[address] [facility] Comment on above: Performed By: #### L ACT #### [facility] [address] [place] [address] Dr. Rosangela Smyth IG # 0.02 10e3/ul Normal 0.00-0.[address] [facility] Comment on above: Performed By: #### L ACT #### [facility] [address] [place] [address] Dr. Rosangela Smyth IG % 0.5 % Normal 0.0-0.[address] [facility] Comment on above: Performed By: #### L ACT #### [facility] [address] [place] [address] Dr. Rosangela Smyth LYMPH # 0.9 103/ul Critically low 1.2-3.8 [facility] Comment on above: Performed By: #### L ACT #### [facility] [address] [place] [address] Dr. Rosangela Smyth Lymphocytes/100 WBC (Bld) 24.0 % Normal 20.5-60.[address] [facility] Comment on above: Performed By: #### L ACT #### [facility] [address] [place] [address] Dr. Rosangela Smyth MANUAL DIFF REQ NO Normal [facility] Comment on above: Performed By: #### L ACT #### [facility] [address] [place] [address] Dr. Rosangela Smyth MCH (RBC) [Entitic mass] 31.3 pg Normal 26.7-34.[address] [facility] Comment on above: Performed By: #### L ACT #### [facility] [address] [place] [address] Dr. Rosangela Smyth MCHC (RBC) [Mass/Vol] 32.7 g/dL Normal 29.9-35.[address] [facility] Comment on above: Performed By: #### L ACT #### [facility] [address] [place] [address] Dr. Rosangela Smyth MCV (RBC) [Entitic vol] 95.6 fL Normal 81.0-99.[address] [facility] Comment on above: Performed By: #### L ACT #### [facility] [address] [place] [address] Dr. Rosangela Smyth MONO # 0.2 103/ul Critically low 0.3-0.8 [facility] Comment on above: Performed By: #### L ACT #### [facility] [address] [place] [address] Dr. Rosangela Smyth Monocytes/100 WBC (Bld) 4.0 % Normal 1.7-12.[address] [facility] Comment on above: Performed By: #### L ACT #### [facility] [address] [place] [address] Dr. Rosangela Smyth NEUT # 2.6 103/ul Normal 1.4-6.5 [facility] Comment on above: Performed By: #### L ACT #### [facility] [address] [place] [address] Dr. oRsangela Smyth Neutrophils/100 WBC (Bld) 69.7 % Normal 43.0-75.0 [facility] Comment on above: Performed By: #### L ACT #### [facility] [address] [place] [address] Dr. Rosangela Smyth Platelet mean volume (Bld) [Entitic vol] 9.1 fL Critically low 9.5-13.[address] [facility] Comment on above: Performed By: #### L ACT #### [facility] [address] [place] [address] Dr. Rosangela Smyth PLT 244 103/ul Normal 150-450 [facility] Comment on above: Performed By: #### L ACT #### [facility] [address] [address] [address] Rosangela Smyth RBC 2.72 106/ul Critically low 4.20-5.40 [facility] Comment on above: Performed By: #### L ACT #### [facility] [address] [address] [address] Rosangela Smyth WBC 3.8 103/ul Critically low 4.0-11.0 [facility] Comment on above: Performed By: #### L ACT #### [facility] [address] [address] [address] Rosangela Smyth BASO # 0.0 103/ul Normal 0.0-0.[address] [facility] Comment on above: Performed By: #### L IPID, CMP #### [facility] [address] [address] [address] Rosangela Smyth Basophils/100 WBC (Bld) 0.3 % Normal 0.2-2.[address] [facility] Comment on above: Performed By: #### L IPID, CMP #### [facility] [address] [address] [address] Rosangela Smyth EO # 0.0 103/ul Normal 0.0-0.[address] [facility] Comment on above: Performed By: #### L IPID, CMP #### [facility] [address] [address] [address] Rosangela Smyth Eosinophils/100 WBC (Bld) 1.1 % Normal 0.9-7.[address] [facility] Comment on above: Performed By: #### L IPID, CMP #### [facility] [address] [place] [address] Dr. Rosangela Smyth Erythrocyte distribution width (RBC) [Ratio] 15.5 % Critically high 11.0-15.0 [facility] Comment on above: Performed By: #### L IPID, CMP #### [facility] [address] [place] [address] Dr. Rosangela Smyth Hematocrit (Bld) [Volume fraction] 31.9 % Critically low 36.0-48.[address] [facility] Comment on above: Performed By: #### L IPID, CMP #### [facility] [address] [place] [address] Dr. Rosangela Smyth Hemoglobin (Bld) [Mass/Vol] 10.4 g/dL Critically low 12.0-16.[address] [facility] Comment on above: Performed By: #### L IPID, CMP #### [facility] [address] [place] [address] Dr. Rosangela Smyth IG # 0.03 10e3/ul Normal 0.00-0.[address] [facility] Comment on above: Performed By: #### L IPID, CMP #### [facility] [address] [place] [address] Dr. Rosangela Smyth IG % 0.8 % Critically high 0.0-0.5 [facility] Comment on above: Performed By: #### L IPID, CMP #### [facility] [address] [place] [address] Dr. Rosangela Smyth LYMPH # 1.0 103/ul Critically low 1.2-3.8 [facility] Comment on above: Performed By: #### L IPID, CMP #### [facility] [address] [place] [address] Dr. Rosangela Smyth Lymphocytes/100 WBC (Bld) 26.4 % Normal 20.5-60.0 [facility] Comment on above: Performed By: #### L IPID, CMP #### [facility] [address] [place] [address] Dr. Rosangela Smyth MANUAL DIFF REQ NO Normal [facility] Comment on above: Performed By: #### L IPID, CMP #### [facility] [address] [place] [address] Dr. Rosangela Smyth MCH (RBC) [Entitic mass] 30.7 pg Normal 26.7-34.0 [facility] Comment on above: Performed By: #### L IPID, CMP #### [facility] [address] [place] [address] Dr. Rosangela Smyth MCHC (RBC) [Mass/Vol] 32.6 g/dL Normal 29.9-35.2 [facility] Comment on above: Performed By: #### L IPID, CMP #### [facility] [address] [place] [address] Dr. Rosangela Smyth MCV (RBC) [Entitic vol] 94.1 fL Normal 81.0-99.0 [facility] Comment on above: Performed By: #### L IPID, CMP #### [facility] [address] [place] [address] Dr. Rosangela Smyth MONO # 0.1 103/ul Critically low 0.3-0.8 [facility] Comment on above: Performed By: #### L IPID, CMP #### [facility] [address] [place] [address] Dr. Rosangela Smyth Monocytes/100 WBC (Bld) 3.2 % Normal 1.7-12.0 [facility] Comment on above: Performed By: #### L IPID, CMP #### [facility] [address] [place] [address] Dr. Rosangela Smyth NEUT # 2.5 103/ul Normal 1.4-6.5 [facility] Comment on above: Performed By: #### L IPID, CMP #### [facility] [address] [place] [address] Dr. Rosangela Smyth Neutrophils/100 WBC (Bld) 68.2 % Normal 43.0-75.0 [facility] Comment on above: Performed By: #### L IPID, CMP #### [facility] [address] [place] [address] Dr. Rosangela Smyth Platelet mean volume (Bld) [Entitic vol] 8.8 fL Critically low 9.5-13.5 [facility] Comment on above: Performed By: #### L IPID, CMP #### [facility] [address] [place], [place] [address] Dr. Rosangela Smyth PLT 242 103/ul Normal 150-[address] [facility] Comment on above: Performed By: #### L IPID, CMP #### [facility] [address] [place], [place] [address] Dr. Rosangela Smyth RBC 3.39 106/ul Critically low 4.20-5.40 [facility] Comment on above: Performed By: #### L IPID, CMP #### [facility] [address] [place], [place] [address] Dr. Rosangela Smyth WBC 3.7 103/ul Critically low 4.0-11.0 [facility] Comment on above: Performed By: #### L IPID, CMP #### [facility] [address] [place], [place] [address] Dr. Rosangela Smyth CTA CHEST WO W [...] KWAN MADRID Date: 2022-09-23 01:51 Normal [facility] CULTURE BLOODon 09-23-2022 Microscopic examination of blood, culture Culture Observations: NO GROWTH AT [address] [facility] Comment on above: Performed By: #### L IPID, CMP #### [facility] [address] [address] [address] Rosangela Smyth Microscopic examination of blood, culture Culture Observations: NO GROWTH AT [address] [facility] Comment on above: Performed By: #### L IPID, CMP #### [facility] [address] [address] [address] Rosangela Smyth Covid-19 PCR ([facility])on 09-06 SARS-CoV-2 (COVID-19) RNA RICH+probe Ql (Unsp spec) Detected Abnormal NOT DETECTED [facility] Comment on above: Result Comment: This test is not yet approved or cleared by the [place] FDA. When there are no FDA-approved or cleared tests available, and other criteria are met, FDA can make tests available under an emergency access mechanism called an Emergency Use Authorization (EUA). The EUA for this test is supported by the [place] of Health and Human Service's declaration that [...] used). Performed By: #### O BSCRN #### [facility] [address] [address] [address] Rosangela Smyth D-DIMERon 09-23-2022 D-DIMER 0.78 mg/L FEU Critically high <=0.59 [facility] Comment on above: Performed By: #### O BSCRN #### [facility] [address] [address] [address] Rosangela Smyth D-DIMER COMMENTS SEE BELOW Normal [facility] Comment on above: Result Comment: Incr [...] hospitalization. Performed By: #### O BSCRN #### [facility] [address] [place] [address] Dr. Rosangela Smyth ER URINE PROFILEon 3 Bilirubin Ql (U) Negative Normal NEGATIVE [facility] Comment on above: Performed By: #### L IPID, CMP #### [facility] [address] [place] [address] Dr. Rosangela Smyth Clarity (U) CLEAR Normal CLEAR [facility] Comment on above: Performed By: #### L IPID, CMP #### [facility] [address] [place] [address] Dr. Rosangela Smyth Color (U) LT. YELLOW Normal YELLOW [facility] Comment on above: Performed By: #### L IPID, CMP #### [facility] [address] [place] [address] Dr. Rosangela ANAND A micrscopic examination will be performed if indicated. Normal [facility] Comment on above: Performed By: #### L IPID, CMP #### [facility] [address] [place] [address] Dr. Rosangela Smyth Glucose Ql (U) 250 mg/dl Abnormal NEGATIVE [facility] Comment on above: Performed By: #### L IPID, CMP #### [facility] [address] [place] [address] Dr. Rosangela Smyth Hemoglobin Ql (U) Negative Normal NEGATIVE [facility] Comment on above: Performed By: #### L IPID, CMP #### [facility] [address] [place] [address] Dr. Rosangela Smyth Ketones Ql (U) Negative Normal NEGATIVE [facility] Comment on above: Performed By: #### L IPID, CMP #### [facility] [address] [place] [address] Dr. Rosangela Smyth LEUKOCYTES Negative Normal NEGATIVE [facility] Comment on above: Performed By: #### L IPID, CMP #### [facility] [address] [place] [address] Dr. Rosangela Smyth Nitrite Ql (U) Negative Normal NEGATIVE [facility] Comment on above: Performed By: #### L IPID, CMP #### [facility] [address] [place] [address] Dr. Rosangela Smyth pH (U) 6.0 [pH] Normal 5-9 [facility] Comment on above: Performed By: #### L IPID, CMP #### [facility] [address] [place] [address] Dr. Rosangela Smyth SPEC GRAVITY 1.015 Normal 1.005-<=1.025 [facility] Comment on above: Performed By: #### L IPID, CMP #### [facility] [address] [place] [address] Dr. Rosangela Smyth UA PROTEIN TRACE Normal NEGATIVE/ TRACE [facility] Comment on above: Performed By: #### L IPID, CMP #### [facility] [address] [place] [address] Dr. Rosangela Smyth UR MICRO IND NOT INDICATED Normal [facility] Comment on above: Performed By: #### L IPID, CMP #### [facility] [address] [place] [address] Dr. Rosangela Smyth Urobilinogen Qn (U) 0.2 {Estevan'U}/dL Normal 0.2 - 1. [address] [facility] Comment on above: Performed By: #### L IPID, CMP #### [facility] [address] [place] [address] Dr. Rosangela Smyth INFLUENZA A AND B AGon 09-23 INFLUENZA A AG Negative Normal NEGATIVE SEE COMMENT [facility] Comment on above: Performed By: #### L IPID, CMP #### [facility] [address] [place] [address] Dr. Rosangela Smyth INFLUENZA B AG Negative Normal NEGATIVE SEE COMMENT [facility] Comment on above: Performed By: #### L IPID, CMP #### [facility] [address] [place] [address] Dr. Rosangela Smyth LACTATE/LACTIC ACIDon 2022 Lactate [Moles/Vol] 1.4 mmol/L Normal 0.4-1.9 [facility] Comment on above: Performed By: #### O BSCRN #### [facility] [address] [place] [address] Dr. Rosangela Smyth Lactate [Moles/Vol] 0.9 mmol/L Normal 0.4-1.9 [facility] Comment on above: Performed By: #### C BC #### [facility] [address] [place] [address] Dr. Rosangela Smyth Lactate [Moles/Vol] 1.4 mmol/L Normal 0.4-1.9 [facility] Comment on above: Performed By: #### L ACT #### [facility] [address] [place] [address] Dr. Rosangela Smyth POINT OF CARE GLUCOSEon 09-06 Glucose [Mass/Vol] 421 mg/dL Critically high 74-106 [facility] Comment on above: Performed By: #### O BSCRN #### [facility] [address] [place] [address] Dr. Rosangela Smyth PROF 14(COMP METB)on 023 Albumin [Mass/Vol] 2.7 g/dL Critically low 3.4-5.0 [facility] Comment on above: Performed By: #### O BSCRN #### [facility] [address] [place] [address] Dr. Rosangela Smyth Albumin/Globulin [Mass ratio] 0.7 {ratio} Normal [facility] Comment on above: Performed By: #### O BSCRN #### [facility] [address] [place] [address] Dr. Rosangela Smyth ALP [Catalytic activity/Vol] 76 U/L Normal 46-[address] [facility] Comment on above: Performed By: #### O BSCRN #### [facility] [address] [address] [address] Rosangela Smyth ALT [Catalytic activity/Vol] 19 U/L Normal 14-[address] [facility] Comment on above: Performed By: #### O BSCRN #### [facility] [address] [address] [address] Rosangela Smyth Anion gap [Moles/Vol] 11.9 mmol/L Normal [facility] Comment on above: Performed By: #### O BSCRN #### [facility] [address] [address] [address] Rosangela Smyth AST [Catalytic activity/Vol] 20 U/L Normal 15-[address] [facility] Comment on above: Performed By: #### O BSCRN #### [facility] [address] [place] [address] Dr. Rosangela Smyth Bilirubin [Mass/Vol] 0.3 mg/dL Normal 0.2-1.[address] [facility] Comment on above: Performed By: #### O BSCRN #### [facility] [address] [place] [address] Dr. Rosangela Smyth Calcium [Mass/Vol] 10.2 mg/dL Critically high 8.5-10.1 [facility] Comment on above: Performed By: #### O BSCRN #### [facility] [address] [place] [address] Dr. Rosangela Smyth Chloride [Moles/Vol] 103 mmol/L Normal 98-[address] [facility] Comment on above: Performed By: #### O BSCRN #### [facility] [address] [address] [address] Rosangela Smyth CO2 [Moles/Vol] 23.7 mmol/L Normal 21.0-32.0 [facility] Comment on above: Performed By: #### O BSCRN #### [facility] [address] [address] [address] Rosangela Smyth Creatinine [Mass/Vol] 0.90 mg/dL Normal 0.55-1.[address] [facility] Comment on above: Performed By: #### O BSCRN #### [facility] [address] [address] [address] Rosangela Smyth EGFR-AF [place] >60 Normal >=60 [facility] Comment on above: Performed By: #### O BSCRN #### [facility] [address] [address] [address] Rosangela Smyth EGFR-NON AF [place] >60 Normal >=[address] [facility] Comment on above: Performed By: #### O BSCRN #### [facility] [address] [address] [address] Rosangela Smyth Globulin (S) [Mass/Vol] 3.9 g/dL Normal [facility] Comment on above: Performed By: #### O BSCRN #### [facility] [address] [address] [address] Rosangela Smyth Glucose [Mass/Vol] 237 mg/dL Critically high 74-106 [facility] [place] [facility] Comment on above: Performed By: #### O BSCRN #### [facility] [address] [address] [address] Rosangela Smyth Potassium [Moles/Vol] 3.6 mmol/L Normal 3.5-5.[address] [facility] Comment on above: Performed By: #### O BSCRN #### [facility] [address] [address] [address] Rosangela Smyth Protein [Mass/Vol] 6.6 g/dL Normal 6.4-8.2 [facility] Comment on above: Performed By: #### O BSCRN #### [facility] [address] [address] [address] Rosangela Smyth Sodium [Moles/Vol] 135 mmol/L Critically low 136-145 [facility] Comment on above: Performed By: #### O BSCRN #### [facility] [address] [address] [address] Rosangela Smyth Urea nitrogen [Mass/Vol] 11.0 mg/dL Normal 7.0-18.[address] [facility] Comment on above: Performed By: #### O BSCRN #### [facility] [address] [place] [address] Dr. Rosangela Smyth Urea nitrogen/Creatinine [Mass ratio] 12.2 mg/mg Normal [facility] Comment on above: Performed By: #### O BSCRN #### [facility] [address] [place] [address] Dr. Rosangela Smyth PROF CHEM 8 (BAS METB)on Anion gap [Moles/Vol] 10.7 mmol/L Normal [facility] Comment on above: Performed By: #### L IPID, CMP #### [facility] [address] [place] [address] Dr. Rosangela Smyth Calcium [Mass/Vol] 10.3 mg/dL Critically high 8.5-10.1 [facility] Comment on above: Performed By: #### L IPID, CMP #### [facility] [address] [place] [address] Dr. Rosangela Smyth Chloride [Moles/Vol] 97 mmol/L Critically low 98-[address] [facility] Comment on above: Performed By: #### L IPID, CMP #### [facility] [address] [place] [address] Dr. Rosangela Smyth CO2 [Moles/Vol] 26.1 mmol/L Normal 21.0-32.0 [facility] Comment on above: Performed By: #### L IPID, CMP #### [facility] [address] [place] [address] Dr. Rosangela Smyth Creatinine [Mass/Vol] 1.05 mg/dL Critically high 0.55-1.[address] [facility] Comment on above: Performed By: #### L IPID, CMP #### [facility] [address] [place] [address] Dr. Rosangela Smyth EGFR-AF [place] >60 Normal >=60 [facility] Comment on above: Performed By: #### L IPID, CMP #### [facility] [address] [place] [address] Dr. Rosangela Smyth EGFR-NON AF [place] 54 mL/min/1.73m2 Critically low >=[address] [facility] Comment on above: Performed By: #### L IPID, CMP #### [facility] [address] [place] [address] Dr. Rosangela Smyth Glucose [Mass/Vol] 255 mg/dL Critically high 74-106 [facility] [place] [facility] Comment on above: Performed By: #### L IPID, CMP #### [facility] [address] [place] [address] Dr. Rosangela Smyth Potassium [Moles/Vol] 3.8 mmol/L Normal 3.5-5.[address] [facility] Comment on above: Performed By: #### L IPID, CMP #### [facility] [address] [place] [address] Dr. Rosangela Smyth Sodium [Moles/Vol] 130 mmol/L Critically low 136-145 [facility] Comment on above: Performed By: #### L IPID, CMP #### [facility] [address] [place] [address] Dr. Rosangela Smyth Urea nitrogen [Mass/Vol] 18.0 mg/dL Normal 7.0-18.[address] [facility] Comment on above: Performed By: #### L IPID, CMP #### [facility] [address] [place] [address] Dr. Rosangela Smyth Urea nitrogen/Creatinine [Mass ratio] 17.1 mg/mg Normal [facility] Comment on above: Performed By: #### L IPID, CMP #### [facility] [address] [place] [address] Dr. Rosangela Smyth XR CHEST 1 Von [...] by: JUSTINA CURRAN Date: 2022-09-23 16:33 Normal [facility] XR CHEST 1 V XR CHEST [...] RAUL MARVIN Date: 2022-09-23 00:05 Normal [facility] CARDIAC CRYSTAL ADMITon 023 CK [Catalytic activity/Vol] 44 U/L Normal 26-[address] [facility] Comment on above: Performed By: #### C VIRAL CORDON #### [facility] [address] [place] [address] Dr. Rosangela Smyth CK.MB [Mass/Vol] ng/mL Normal <=3.60 [facility] Comment on above: Performed By: #### C VIRAL CORDON #### [facility] [address] [address] [address] Rosangela Smyth HSTROP 6.3 pg/mL Normal 4.0-51.[address] [facility] Comment on above: Result Comment: CUT- OFF POINTS HAVE BEEN ESTABLISHED BASED ON THE FOURTH UNIVERSAL DEFINITIONS OF MYOCARDIAL INFARCTION. THE UPPER REFERENCE LIMIT (URL) OF TROPONIN, DEFINED THE 99TH PERCENTILE OF cTnI DISTRIBUTION IN A REFERENCE POPULATION, HAS BEEN CONFIRMED THE DECISION THRESHOLD FOR [place] DIAGNOSIS. Performed By: #### C YULIANA CORDONDM #### [facility] [address] [address] [address] Rosangela Smyth JOVAN 39 ng/mL Normal 9-82 [facility] Comment on above: Performed By: #### C VIRAL CORDON #### [facility] [address] [place] [address] Dr. Rosangela Smyth CBC AUTO DIFFon 09-12-2022 BASO # 0.0 103/ul Normal 0.0-0.[address] [facility] Comment on above: Performed By: #### L ACT #### [facility] [address] [place] [address] Dr. Rosangela Smyth Basophils/100 WBC (Bld) 0.3 % Normal 0.2-2.[address] [facility] Comment on above: Performed By: #### L ACT #### [facility] [address] [place] [address] Dr. Rosangela Smyth EO # 0.1 103/ul Normal 0.0-0.[address] [facility] Comment on above: Performed By: #### L ACT #### [facility] [address] [place] [address] Dr. Rosangela Smyth Eosinophils/100 WBC (Bld) 1.4 % Normal 0.9-7.[address] [facility] Comment on above: Performed By: #### L ACT #### [facility] [address] [place] [address] Dr. Rosangela Smyth Erythrocyte distribution width (RBC) [Ratio] 16.1 % Critically high 11.0-15.[address] [facility] Comment on above: Performed By: #### L ACT #### [facility] [address] [place] [address] Dr. Rosangela Smyth Hematocrit (Bld) [Volume fraction] 27.6 % Critically low 36.0-48.[address] [facility] Comment on above: Performed By: #### L ACT #### [facility] [address] [place] [address] Dr. Rosangela Smyth Hemoglobin (Bld) [Mass/Vol] 9.2 g/dL Critically low 12.0-16.[address] [facility] Comment on above: Performed By: #### L ACT #### [facility] [address] [place] [address] Dr. Rosangela Smyth IG # 0.01 10e3/ul Normal 0.00-0.[address] [facility] Comment on above: Performed By: #### L ACT #### [facility] [address] [place] [address] Dr. Rosangela Smyth IG % 0.3 % Normal 0.0-0.[address] [facility] Comment on above: Performed By: #### L ACT #### [facility] [address] [address] [address] Rosangela Smyth LYMPH # 0.6 103/ul Critically low 1.2-3.8 [facility] Comment on above: Performed By: #### L ACT #### [facility] [address] [address] [address] Rosangela Smyth Lymphocytes/100 WBC (Bld) 17.1 % Critically low 20.5-60.[address] [facility] Comment on above: Performed By: #### L ACT #### [facility] [address] [place] [address] Dr. Rosangela Smyth MANUAL DIFF REQ NO Normal [facility] Comment on above: Performed By: #### L ACT #### [facility] [address] [place] [address] Dr. Rosangela Smyth MCH (RBC) [Entitic mass] 30.6 pg Normal 26.7-34.[address] [facility] Comment on above: Performed By: #### L ACT #### [facility] [address] [place] [address] Dr. Rosangela Smyth MCHC (RBC) [Mass/Vol] 33.3 g/dL Normal 29.9-35.[address] [facility] Comment on above: Performed By: #### L ACT #### [facility] [address] [place] [address] Dr. Rosangela Smyth MCV (RBC) [Entitic vol] 91.7 fL Normal 81.0-99.[address] [facility] Comment on above: Performed By: #### L ACT #### [facility] [address] [address] [address] Rosangela Smyth MONO # 0.4 103/ul Normal 0.3-0.[address] [facility] Comment on above: Performed By: #### L ACT #### [facility] [address] [place] [address] Dr. Rosangela Smyth Monocytes/100 WBC (Bld) 10.0 % Normal 1.7-12.[address] [facility] Comment on above: Performed By: #### L ACT #### [facility] [address] [address] [address] Rosangela Smyth NEUT # 2.6 103/ul Normal 1.4-6.[address] [facility] Comment on above: Performed By: #### L ACT #### [facility] [address] [address] [address] Rosangela Smyth Neutrophils/100 WBC (Bld) 70.9 % Normal 43.0-75.[address] [facility] Comment on above: Performed By: #### L ACT #### [facility] [address] [address] [address] Rosangela Smyth Platelet mean volume (Bld) [Entitic vol] 8.2 fL Critically low 9.5-13.[address] [facility] Comment on above: Performed By: #### L ACT #### [facility] [address] [address] [address] Rosangela Smyth PLT 277 103/ul Normal 150-[address] [facility] Comment on above: Performed By: #### L ACT #### [facility] [address] [address] [address] Rosangela Smyth RBC 3.01 106/ul Critically low 4.20-5.40 [facility] Comment on above: Performed By: #### L ACT #### [facility] [address] [address] [address] Rosangela Smyth WBC 3.7 103/ul Critically low 4.0-11.0 [facility] Comment on above: Performed By: #### L ACT #### [facility] [address] [address] [address] Rosangela Smyth GROUP A STREP CULTUREon S. pyogenes Ag Ql (Unsp spec) Culture Observations: NEGATIVE FOR GROUP A STREPTOCOCCUS. Normal [facility] Comment on above: Performed By: #### L ACT #### [facility] [address] [address] [address] Rosangela Smyth PROF 14(COMP METB)on 023 Albumin [Mass/Vol] 3.8 g/dL Normal 3.4-5.0 [facility] Comment on above: Performed By: #### C MP, CMADM #### [facility] [address] [place] [address] Dr. Rosangela Smyth Albumin/Globulin [Mass ratio] 1.1 {ratio} Normal [facility] Comment on above: Performed By: #### C MP, CMADM #### [facility] [address] [address] [address] Rosangela Smyth ALP [Catalytic activity/Vol] 88 U/L Normal 46-[address] [facility] Comment on above: Performed By: #### C NERIS, CMADM #### [facility] [address] [place] [address] Dr. Rosangela Smyth ALT [Catalytic activity/Vol] 31 U/L Normal 14-[address] [facility] Comment on above: Performed By: #### C NERIS, CMADM #### [facility] [address] [place] [address] Dr. Rosangela Smyth Anion gap [Moles/Vol] 10.2 mmol/L Normal [facility] Comment on above: Performed By: #### C NERIS, CMADM #### [facility] [address] [place] [address] Dr. Rosangela Smyth AST [Catalytic activity/Vol] 24 U/L Normal 15-[address] [facility] Comment on above: Performed By: #### C NERIS, CMADM #### [facility] [address] [place] [address] Dr. Rosangela Smyth Bilirubin [Mass/Vol] 0.3 mg/dL Normal 0.2-1.[address] [facility] Comment on above: Performed By: #### C MP, CMADM #### [facility] [address] [address] [address] Rosangela Smyth Calcium [Mass/Vol] 11.1 mg/dL Critically high 8.5-10.1 [facility] Comment on above: Performed By: #### C NERIS, CMADM #### [facility] [address] [place] [address] Dr. Rosangela Smyth Chloride [Moles/Vol] 101 mmol/L Normal 98-[address] [facility] Comment on above: Performed By: #### C NERIS, CMADM #### [facility] [address] [place] [address] Dr. Rosangela Smyth CO2 [Moles/Vol] 26.4 mmol/L Normal 21.0-32.0 [facility] Comment on above: Performed By: #### C NERIS, CMADM #### [facility] [address] [place] [address] Dr. Rosangela Smyth Creatinine [Mass/Vol] 1.15 mg/dL Critically high 0.55-1.[address] [facility] Comment on above: Performed By: #### C NERIS, CMADM #### [facility] [address] [place] [address] Dr. Rosangela Smyth EGFR-AF HONG [place]ER 59 mL/min/1.73m2 Critically low >=[address] [facility] Comment on above: Performed By: #### C NERIS, CMADM #### [facility] [address] [place] [address] Dr. Rosangela Smyth EGFR-NON AF [place]ER 48 mL/min/1.73m2 Critically low >=[address] [facility] Comment on above: Performed By: #### C NERIS, YULIANADM #### [facility] [address] [place] [address] Dr. Rosangela Smyth Globulin (S) [Mass/Vol] 3.6 g/dL Normal [facility] Comment on above: Performed By: #### C NERIS, CMADM #### [facility] [address] [place] [address] Dr. Rosangela Smyth Glucose [Mass/Vol] 174 mg/dL Critically high 74-106 [facility] Comment on above: Performed By: #### C NERIS, CMADM #### [facility] [address] [place] [address] Dr. Rosangela Smyth Potassium [Moles/Vol] 4.6 mmol/L Normal 3.5-5.[address] [facility] Comment on above: Performed By: #### C NERIS, CMADM #### [facility] [address] [address] [address] Rosangela Smyth Protein [Mass/Vol] 7.4 g/dL Normal 6.4-8.2 [facility] Comment on above: Performed By: #### C MP, CMADM #### [facility] [address] [address] [address] Rosangela Smyth Sodium [Moles/Vol] 133 mmol/L Critically low 136-145 [facility] Comment on above: Performed By: #### C MP, CMADM #### [facility] [address] [address] [address] Rosangela Smyth Urea nitrogen [Mass/Vol] 14.0 mg/dL Normal 7.0-18.[address] [facility] Comment on above: Performed By: #### C NERIS, CMADM #### [facility] [address] [place] [address] Dr. Rosangela Smyth Urea nitrogen/Creatinine [Mass ratio] 12.2 mg/mg Normal [facility] Comment on above: Performed By: #### C MP, CMADM #### [facility] [address] [address] [address] Rosangela Smyth STREPT SCREENon 09-12-2022 STREP SCREEN A Negative Normal NEGATIVE [facility] Comment on above: Performed By: #### L ACT #### [facility] [address] [place] [address] Dr. Rosangela Smyth XR CHEST 1 Von [...] by: LINNETTE AVENDANO Date: 2022-09-12 13:[address] [facility] Progress Noteson 09-03-2022 Advanced Developer Authentication Interface Message Text EMERGENCY TRIAGE, TREAT AND TRANSPORT (ET3) DOCUMENTATION OF TELEHEALTH VISIT Date / Time: 03/18/2022 / 15:00 Name: Kaya Schilling : 1965 SSN: (Not on file) EMS Agency: [facility] [x] Verbal consent obtained [] [...] Completed by: Devon Hays MD Normal [facility] [employer] [facility] AMYLASEon 07-08-2022 Amylase [Catalytic activity/Vol] 49 U/L Normal 25-[address] [facility] Comment on above: Performed By: #### C BC #### [facility] [address] [place] [address] Dr. Rosangela Smyth CBC AUTO DIFFon 07-08-2022 BASO # 0.0 103/ul Normal 0.0-0.[address] [facility] Comment on above: Performed By: #### O BSCRN #### [facility] [address] [place] [address] Dr. Rosangela Smyth Basophils/100 WBC (Bld) 0.4 % Normal 0.2-2.[address] [facility] Comment on above: Performed By: #### O BSCRN #### [facility] [address] [place] [address] Dr. Rosangela Smyth EO # 0.2 103/ul Normal 0.0-0.[address] [facility] Comment on above: Performed By: #### O BSCRN #### [facility] [address] [place] [address] Dr. Rosangela Smyth Eosinophils/100 WBC (Bld) 4.4 % Normal 0.9-7.[address] [facility] Comment on above: Performed By: #### O BSCRN #### [facility] [address] [place] [address] Dr. Rosangela Smyth Erythrocyte distribution width (RBC) [Ratio] 17.9 % Critically high 11.0-15.[address] [facility] Comment on above: Performed By: #### O BSCRN #### [facility] [address] [place] [address] Dr. Rosangela Smyth Hematocrit (Bld) [Volume fraction] 30.4 % Critically low 36.0-48.[address] [facility] Comment on above: Performed By: #### O BSCRN #### [facility] [address] [place] [address] Dr. Rosangela Smyth Hemoglobin (Bld) [Mass/Vol] 9.6 g/dL Critically low 12.0-16.[address] [facility] Comment on above: Performed By: #### O BSCRN #### [facility] [address] [place] [address] Dr. Rosangela Smyth IG # 0.02 10e3/ul Normal 0.00-0.[address] [facility] Comment on above: Performed By: #### O BSCRN #### [facility] [address] [place] [address] Dr. Rosangela Smyth IG % 0.4 % Normal 0.0-0.[address] [facility] Comment on above: Performed By: #### O BSCRN #### [facility] [address] [place] [address] Dr. Rosangela Smyth LYMPH # 1.4 103/ul Normal 1.2-3.[address] [facility] Comment on above: Performed By: #### O BSCRN #### [facility] [address] [place] [address] Dr. Rosangela Smyth Lymphocytes/100 WBC (Bld) 28.6 % Normal 20.5-60.[address] [facility] Comment on above: Performed By: #### O BSCRN #### [facility] [address] [place] [address] Dr. Rosangela Smyth MANUAL DIFF REQ NO Normal [facility] Comment on above: Performed By: #### O BSCRN #### [facility] [address] [place] [address] Dr. Rosangela Smyth MCH (RBC) [Entitic mass] 30.8 pg Normal 26.7-34.[address] [facility] Comment on above: Performed By: #### O BSCRN #### [facility] [address] [place] [address] Dr. Rosangela Smyth MCHC (RBC) [Mass/Vol] 31.6 g/dL Normal 29.9-35.[address] [facility] Comment on above: Performed By: #### O BSCRN #### [facility] [address] [place] [address] Dr. Rosangela Smyth MCV (RBC) [Entitic vol] 97.4 fL Normal 81.0-99.[address] [facility] Comment on above: Performed By: #### O BSCRN #### [facility] [address] [place] [address] Dr. Rosangela Smyth MONO # 0.3 103/ul Normal 0.3-0.[address] [facility] Comment on above: Performed By: #### O BSCRN #### [facility] [address] [place] [address] Dr. Rosangela Smyth Monocytes/100 WBC (Bld) 6.6 % Normal 1.7-12.[address] [facility] Comment on above: Performed By: #### O BSCRN #### [facility] [address] [place] [address] Dr. Rosangela Smyth NEUT # 3.0 103/ul Normal 1.4-6.[address] [facility] Comment on above: Performed By: #### O BSCRN #### [facility] [address] [place] [address] Dr. Rosangela Smyth Neutrophils/100 WBC (Bld) 59.6 % Normal 43.0-75.[address] [facility] Comment on above: Performed By: #### O BSCRN #### [facility] [address] [place] [address] Dr. Rosangela Smyth Platelet mean volume (Bld) [Entitic vol] 8.6 fL Critically low 9.5-13.[address] [facility] Comment on above: Performed By: #### O BSCRN #### [facility] [address] [place] [address] Dr. Rosangela Smyth PLT 351 103/ul Normal 150-450 [facility] Comment on above: Performed By: #### O BSCRN #### [facility] [address] [place] [address] Dr. Rosangela Smyth RBC 3.12 106/ul Critically low 4.20-5.40 [facility] Comment on above: Performed By: #### O BSCRN #### [facility] [address] [place] [address] Dr. Rosangela Smyth WBC 5.0 103/ul Normal 4.0-11.[address] [facility] Comment on above: Performed By: #### O BSCRN #### [facility] [address] [place] [address] Dr. Rosangela Smyth Covid-19 PCR ([facility])on SARS-CoV-2 (COVID-19) RNA RICH+probe Ql (Unsp spec) Not detected Normal NOT DETECTED [facility] Comment on above: Result Comment: When [...] for this test is supported by the [place] of Health and Human Service's declaration that [...] Performed By: #### L IPID, CMP #### [facility] [address] [place] [address] Dr. Rosangela Smyth ER URINE PROFILEon 2 Bilirubin Ql (U) Negative Normal NEGATIVE [facility] Comment on above: Performed By: #### L IPID, CMP #### [facility] [address] [place] [address] Dr. Rosangela Smyth Clarity (U) CLEAR Normal CLEAR [facility] Comment on above: Performed By: #### L IPID, CMP #### [facility] [address] [place] [address] Dr. Rosangela Smyth Color (U) LT. YELLOW Normal YELLOW [facility] Comment on above: Performed By: #### L IPID, CMP #### [facility] [address] [place] [address] Dr. Rosangela ANAND A micrscopic examination will be performed if indicated. Normal [facility] Comment on above: Performed By: #### L IPID, CMP #### [facility] [address] [address] [address] Rosangela Smyth Glucose Ql (U) Negative Normal NEGATIVE [facility] Comment on above: Performed By: #### L IPID, CMP #### [facility] [address] [address] [address] Rosangela Smyth Hemoglobin Ql (U) Negative Normal NEGATIVE [facility] Comment on above: Performed By: #### L IPID, CMP #### [facility] [address] [address] [address] Rosangela Smyth Ketones Ql (U) Negative Normal NEGATIVE [facility] Comment on above: Performed By: #### L IPID, CMP #### [facility] [address] [place] [address] Dr. Rosangela Smyth LEUKOCYTES Negative Normal NEGATIVE [facility] Comment on above: Performed By: #### L IPID, CMP #### [facility] [address] [place] [address] Dr. Rosangela Smyth Nitrite Ql (U) Negative Normal NEGATIVE [facility] Comment on above: Performed By: #### L IPID, CMP #### [facility] [address] [place] [address] Dr. Rosangela Smyth pH (U) 6.0 [pH] Normal 5-9 [facility] Comment on above: Performed By: #### L IPID, CMP #### [facility] [address] [address] [address] Rosangela Smyth SPEC GRAVITY 1.010 Normal 1.005-<=1.025 [facility] Comment on above: Performed By: #### L IPID, CMP #### [facility] [address] [place] [address] Dr. Rosangela Smyth UA PROTEIN Negative Normal NEGATIVE/ TRACE [facility] Comment on above: Performed By: #### L IPID, CMP #### [facility] [address] [address] [address] Rosangela Smyth UR MICRO IND NOT INDICATED Normal [facility] Comment on above: Performed By: #### L IPID, CMP #### [facility] [address] [place] [address] Dr. Rosangela Smyth Urobilinogen Qn (U) 0.2 {Estevan'U}/dL Normal 0.2 - 1. [address] [facility] Comment on above: Performed By: #### L IPID, CMP #### [facility] [address] [place] [address] Dr. Rosangela Smyth LIPASEon 07-08-2022 Lipase [Catalytic activity/Vol] 89.0 U/L Normal 73.0-393.[address] [facility] Comment on above: Performed By: #### L ACT #### [facility] [address] [place] [address] Dr. Rosangela Smyth PROF 14(COMP METB)on 022 Albumin [Mass/Vol] 3.9 g/dL Normal 3.4-5.0 [facility] Comment on above: Performed By: #### C BC #### [facility] [address] [place] [address] Dr. Rosangela Smyth Albumin/Globulin [Mass ratio] 1.1 {ratio} Normal [facility] Comment on above: Performed By: #### C BC #### [facility] [address] [place] [address] Dr. Rosangela Smyth ALP [Catalytic activity/Vol] 86 U/L Normal 46-116 [facility] Comment on above: Performed By: #### C BC #### [facility] [address] [place] [address] Dr. Roasngela Smyth ALT [Catalytic activity/Vol] 22 U/L Normal 14-59 [facility] Comment on above: Performed By: #### C BC #### [facility] [address] [place] [address] Dr. Rosangela Smyth Anion gap [Moles/Vol] 10.1 mmol/L Normal [facility] Comment on above: Performed By: #### C BC #### [facility] [address] [place] [address] Dr. Rosangela Smyth AST [Catalytic activity/Vol] 15 U/L Normal 15-37 [facility] Comment on above: Performed By: #### C BC #### [facility] [address] [place] [address] Dr. Rosangela Smyth Bilirubin [Mass/Vol] 0.3 mg/dL Normal 0.2-1.[address] [facility] Comment on above: Performed By: #### C BC #### [facility] [address] [place] [address] Dr. Rosangela Smyth Calcium [Mass/Vol] 11.8 mg/dL Critically high 8.5-10.1 [facility] Comment on above: Performed By: #### C BC #### [facility] [address] [place] [address] Dr. Rosangela Smyth Chloride [Moles/Vol] 104 mmol/L Normal 98-[address] [facility] Comment on above: Performed By: #### C BC #### [facility] [address] [place] [address] Dr. Rosangela Smyth CO2 [Moles/Vol] 28.4 mmol/L Normal 21.0-32.0 [facility] Comment on above: Performed By: #### C BC #### [facility] [address] [place] [address] Dr. Rosangela Smyth Creatinine [Mass/Vol] 0.84 mg/dL Normal 0.55-1.[address] [facility] Comment on above: Performed By: #### C BC #### [facility] [address] [place] [address] Dr. Rosangela Smyth EGFR-AF [place]ER >60 Normal >=60 [facility] Comment on above: Performed By: #### C BC #### [facility] [address] [place] [address] Dr. Rosangela Smyth EGFR-NON AF [place] >60 Normal >=60 [facility] Comment on above: Performed By: #### C BC #### [facility] [address] [place] [address] Dr. Rosangela Smyth Globulin (S) [Mass/Vol] 3.7 g/dL Normal [facility] Comment on above: Performed By: #### C BC #### [facility] [address] [place] [address] Dr. Rosangela Smyth Glucose [Mass/Vol] 82 mg/dL Normal 74-106 [facility] Comment on above: Performed By: #### C BC #### [facility] [address] [address] [address] Rosangela Smyth Potassium [Moles/Vol] 4.5 mmol/L Normal 3.5-5.[address] [facility] Comment on above: Performed By: #### C BC #### [facility] [address] [place] [address] Dr. Rosangela Smyth Protein [Mass/Vol] 7.6 g/dL Normal 6.4-8.2 [facility] Comment on above: Performed By: #### C BC #### [facility] [address] [place] [address] Dr. Rosangela Smyth Sodium [Moles/Vol] 138 mmol/L Normal 136-145 [facility] Comment on above: Performed By: #### C BC #### [facility] [address] [place] [address] Dr. Rosangela Smyth Urea nitrogen [Mass/Vol] 10.0 mg/dL Normal 7.0-18.[address] [facility] Comment on above: Performed By: #### C BC #### [facility] [address] [place] [address] Dr. Rosangela Smyth Urea nitrogen/Creatinine [Mass ratio] 11.9 mg/mg Normal [facility] Comment on above: Performed By: #### C BC #### [facility] [address] [place] [address] Dr. Rosangela Smyth TROPONIN, HIGH SENSITIVITYon 07-08-2022 HSTROP 7.7 pg/mL Normal 4.0-51.[address] [facility] Comment on above: Result Comment: CUT- OFF POINTS HAVE BEEN ESTABLISHED BASED ON THE FOURTH UNIVERSAL DEFINITIONS OF MYOCARDIAL INFARCTION. THE UPPER REFERENCE LIMIT (URL) OF TROPONIN, DEFINED THE 99TH PERCENTILE OF cTnI DISTRIBUTION IN A REFERENCE POPULATION, HAS BEEN CONFIRMED THE DECISION THRESHOLD FOR [place] DIAGNOSIS. Performed By: #### L ACT #### [facility] [address] [place] [address] Dr. Rosangela Bailey 07-03-2022 CNPN Telephone (NCCAP) KAYA SCHILLING ([id number]) 1965 F Date Time Provider Department 07/03/22 [facility] During your visit today, we recorded the following information about you: Reji Jane Pss 07/03/2022 8:21 AM Signed per [...] Encounter Status:Closed by REJI JANE [facility] CNPN Tele[facility] (NCCAP) HUSSAINKAYA CONTEH ([id number]) 1965 F Date Time Provider Department 06/04/22 [facility] During your visit today, we recorded the following information about you: Hanna Pop 06/04/2022 8:30 AM Signed Per Answering Service message patient called requested to cancel this appointment and stated she will call us back to reschedule. Hanna Perdomo [facility] Roberta Vaughan 06/04/2022 3:23 PM Signed Patient left a message on my voicemail today to get this appointment scheduled. Call placed to patient, no answer. Left message on voicemail to call back to reschedule. Roberta Alexus Allergies As of Date: 06/04/2022 Noted Allergy [...] Encounter Status:Closed by HANNA KNAPP [facility]/22 [facility] ([id number]) 1965 F Date Time Provider Department 06/04/22 FINANCIAL NAVIGATOR LYNETTE TAMEZHailey During your visit today, we recorded the following information about you: Logan Monahan Attila [facility] 06/04/2022 11:51 AM Signed 1st report of [...] Fully Assessed Reason for Visit: Benefits Investigation [4517] Prescriptions as of 06/04/2022 - zolpidem (AMBIEN) [...] Encounter Status:Closed by LOGAN HOYT on 06/04/22 [facility] 05-29-2022 [place] Telephone (HEMAZUCENA) KAYA SCHILLING ([id number]) 1965 F Date Time Provider Department 05/29/22 JACKIE MORNEO During your visit today, we recorded the [...] to selective *05/25/2022 Encounter Status:Closed by JACKIE MORENO on 05/29/22 [facility] Leo 05-26-2022 EVELYN Telephone (AnagearAZUCENA) KAYA SCHILLING ([id number]) 1965 F Date Time Provider Department 05/26/22 REGINA CRISTOBAL During your visit today, we recorded the following information about you: Amirah August 05/26/2022 1:16 PM Signed Patient scheduled to see [...] [D64.9] Order(s):COMP METABOLIC PANEL [SQCMP] Order #: [id number] FUTURE IRON + TIBC [SQIRON] Order #: [id number] FUTURE CBC + DIFF [SQCBCDIF] Order #: [id number] FUTURE FERRITIN BLD [SQFERR] Order #: [id number] FUTURE Prescriptions as of 06/04/2022 - zolpidem [...] due to selective *05/25/2022 Encounter Status:Closed by AUGUSTDecember on 06/04/22 Normal [facility] JUDIKAYA FREITAS ([id number]) 1965 F Date Time Provider Department 05/25/22 YVONNE CRUMP During your visit today, we recorded the following information about you: Yvonne Crump RN 05/25/2022 8:55 AM Signed ----- Message [...] endoscopy to further evaluate as well,. Yvonne Crump RN 05/25/2022 8:57 AM Signed LM to [...] GI facesheet in your box Reji Jane Pss 05/25/2022 2:18 PM Signed Appointments moved to next (06/04). Called pt, no answer, LMOV. Yvonne Rivera [facility] 05/25/2022 3:12 PM Signed Records faxed to [facility]. Hanna Perdomo [facility] 05/28/2022 2:29 PM Signed Called [facility] spoke with Luisa. She states they have received this referral and their nursing program coordinator will be calling patient soon to schedule. Hanna Perdomo [facility] Hanna Perdomo [facility] 06/03/2022 2:11 PM Signed Called [facility] spoke with Luisa. She states their office is in process of calling patient to schedule. Hanna Perdomo [facility] Hanna Perdomo [facility] 06/08/2022 2:39 PM Signed Called [facility] spoke with Luisa. She states they have called and left patient message to call their office back to get scheduled. They are waiting for patient to call them back. Hanna Perdomo [facility] Hanna Perdomo [facility] 06/15/2022 2:39 PM Signed Called [facility] spoke with Luisa. She states when patient called their office back, patient stated she did not want to schedule any appointments with their office at this time. Patient told their office she was going to call our office to let TERRELL know her decision on not wanting to schedule appointment at this time. Hanna Perdomo [facility] Allergies As of Date: 05/25/2022 Noted Allergy [...] Resolved Anemi (more content not included)... Normal [facility] CBC W Auto Differential pane l (Bld)on 05-22-2022 Basophils (Bld) [#/Vol] 0.03 10*3/uL Normal <0.11 [facility] Comment on above: Order Comment: Speci men Type: BLOOD SPECIMEN Ordering Facility: [facility] Address: [address] [place] [address] Performed By: #### [facility] #### [facility] CLIA [id number] [address] [place], [place] [address] [address] [place] Basophils/100 WBC (Bld) 0.5 % Normal [facility] Comment on above: Order Comment: Speci men Type: BLOOD SPECIMEN Ordering Facility: [facility] Address: [address] [place], [place] [id number] Performed By: #### S ERIMM #### [facility] CLIA [id number] [address] [place] [address] [place] Differential cell count method Nom (Bld) Auto Normal [facility] Comment on above: Order Comment: Speci men Type: BLOOD SPECIMEN Ordering Facility: [facility] Address: [address] [place], [place] [id number] Performed By: #### S ERIMM #### [facility] CLIA [id number] [address] [place] [address] [place] Eosinophils (Bld) [#/Vol] 0.26 10*3/uL Normal <0.46 [facility] Comment on above: Order Comment: Speci men Type: BLOOD SPECIMEN Ordering Facility: [facility] Address: [address] [place], [place] [id number] Performed By: #### S ERIMM #### [facility] CLIA [id number] [address] [place] [address] [place] Eosinophils/100 WBC (Bld) 4.5 % Normal [facility] Comment on above: Order Comment: Speci men Type: BLOOD SPECIMEN Ordering Facility: [facility] Address: [address] [place], [place] [id number] Performed By: #### S ERIMM #### [facility] CLIA [id number] [address] [place] [address] [place] Erythrocyte distribution width (RBC) [Ratio] 18.1 % High 11.5-15.0 [facility] Comment on above: Order Comment: Speci men Type: BLOOD SPECIMEN Ordering Facility: [facility] Address: [address] [place], [place] [id number] Performed By: #### S ERIMM #### [facility] CLIA [id number] [address] [place] [address] [place] Hematocrit (Bld) [Volume fraction] 30.1 % Low 36.0-46.0 [facility] Comment on above: Order Comment: Speci men Type: BLOOD SPECIMEN Ordering Facility: [facility] Address: [address] [place] [address] Performed By: #### S ERIMM #### [facility] CLIA [id number] [address] [place] [address] [place] Hemoglobin (Bld) [Mass/Vol] 9.3 g/dL Low 11.5-15.5 [facility] Comment on above: Order Comment: Speci men Type: BLOOD SPECIMEN Ordering Facility: [facility] Address: [address] [place] [address] Performed By: #### S ERIMM #### [facility] CLIA [id number] [address] [place] [address] [place] IMMATURE GRAN % 0.2 % Normal [facility] Comment on above: Order Comment: Speci men Type: BLOOD SPECIMEN Ordering Facility: [facility] Address: [address] [place] [address] Performed By: #### S ERIMM #### [facility] CLIA [id number] [address] [place] [address] [place] [facility] IMMATURE GRAN ABS <0.03 Normal <0.10 [facility] Comment on above: Order Comment: Speci men Type: BLOOD SPECIMEN Ordering Facility: [facility] Address: [address] [place], [place] [id number] Performed By: #### S ERIMM #### [facility] CLIA [id number] [address] [place] [address] [place] Lymphocytes (Bld) [#/Vol] 1.40 10*3/uL Normal 1.00-4.00 [facility] Comment on above: Order Comment: Speci men Type: BLOOD SPECIMEN Ordering Facility: [facility] Address: [address] [place], [place] [id number] Performed By: #### S ERIMM #### [facility] CLIA [id number] [address] [place] [address] [place] Lymphocytes/100 WBC (Bld) 24.1 % Normal [facility] Comment on above: Order Comment: Speci men Type: BLOOD SPECIMEN Ordering Facility: [facility] Address: [address] [place], [place] [id number] Performed By: #### S ERIMM #### [facility] CLIA [id number] [address] [place] [address] [place] MCH (RBC) [Entitic mass] 29.5 pg Normal 26.0-34.0 [facility] Comment on above: Order Comment: Speci men Type: BLOOD SPECIMEN Ordering Facility: [facility] Address: [address] [place], [place] [id number] Performed By: #### S ERIMM #### [facility] CLIA [id number] [address] [place] [address] [place] MCHC (RBC) [Mass/Vol] 30.9 g/dL Normal 30.5-36.0 [facility] Comment on above: Order Comment: Speci men Type: BLOOD SPECIMEN Ordering Facility: [facility] Address: [address] [place], [place] [id number] Performed By: #### S ERIMM #### [facility] CLIA [id number] [address] [place] [address] [place] MCV (RBC) [Entitic vol] 95.6 fL Normal 80.0-100.0 [facility] Comment on above: Order Comment: Speci men Type: BLOOD SPECIMEN Ordering Facility: [facility] Address: [address] [place], [place] [id number] Performed By: #### S ERIMM #### [facility] CLIA [id number] [address] [place] [address] [place] Monocytes (Bld) [#/Vol] 0.36 10*3/uL Normal <0.87 [facility] Comment on above: Order Comment: Speci men Type: BLOOD SPECIMEN Ordering Facility: [facility] Address: [address] [place], [place] [id number] Performed By: #### S ERIMM #### [facility] CLIA [id number] [address] [place] [address] [place] Monocytes/100 WBC (Bld) 6.2 % Normal [facility] Comment on above: Order Comment: Speci men Type: BLOOD SPECIMEN Ordering Facility: [facility] Address: [address] [place], [place] [id number] Performed By: #### S ERIMM #### [facility] CLIA [id number] [address] [place] [address] [place] Neutrophils (Bld) [#/Vol] 3.76 10*3/uL Normal 1.45-7.50 [facility] Comment on above: Order Comment: Speci men Type: BLOOD SPECIMEN Ordering Facility: [facility] Address: [address] [place], [place] [id number] Performed By: #### S ERIMM #### [facility] CLIA [id number] [address] [place] [address] [place] Neutrophils/100 WBC (Bld) 64.5 % Normal [facility] Comment on above: Order Comment: Speci men Type: BLOOD SPECIMEN Ordering Facility: [facility] Address: [address] [place], [place] [id number] Performed By: #### S ERIMM #### [facility] CLIA [id number] [address] [place] [address] [place] Nucleated RBC (Bld) [#/Vol] 10*3/uL Normal <0.01 [facility] Comment on above: Order Comment: Speci men Type: BLOOD SPECIMEN Ordering Facility: [facility] Address: [address] [place], [place] [id number] Performed By: #### S ERIMM #### [facility] CLIA [id number] [address] [place] [address] [place] Nucleated RBC/100 WBC (Bld) [Ratio] 0.0 /100 WBC Normal [facility] Comment on above: Order Comment: Speci men Type: BLOOD SPECIMEN Ordering Facility: [facility] Address: [address] [place], [place] [id number] Performed By: #### S ERIMM #### [facility] CLIA [id number] [address] [place] [address] [place] Platelet mean volume (Bld) [Entitic vol] 8.6 fL Low 9.0-12.7 [facility] Comment on above: Order Comment: Speci men Type: BLOOD SPECIMEN Ordering Facility: [facility] Address: [address] [place], [place] [id number] Performed By: #### S ERIMM #### [facility] CLIA [id number] [address] [place] [address] [place] Platelets (Bld) [#/Vol] 335 10*3/uL Normal 150-400 [facility] Comment on above: Order Comment: Speci men Type: BLOOD SPECIMEN Ordering Facility: [facility] Address: [address] [place], [place] [id number] Performed By: #### S ERIMM #### [facility] CLIA [id number] [address] [place] [address] [place] RBC (Bld) [#/Vol] 3.15 10*6/uL Low 3.90-5.20 [facility] Comment on above: Order Comment: Speci men Type: BLOOD SPECIMEN Ordering Facility: [facility] Address: [address] [place], [place] [id number] Performed By: #### S ERIMM #### [facility] CLIA [id number] [address] [place] [address] [place] WBC (Bld) [#/Vol] 5.82 10*3/uL Normal 3.70-11.00 [facility] Comment on above: Order Comment: Speci men Type: BLOOD SPECIMEN Ordering Facility: [facility] Address: [address] [place] [address] Performed By: #### S PARUL #### [facility] IA [id number] [address] [place] [address] [place] Abs Immature Gran <0.10 k/uL [facility] Basophils (Bld) [#/Vol] 0.03 10*3/uL <0.11 k/uL [facility] Basophils/100 WBC (Bld) 0.5 % [facility] Differential cell count method Nom (Bld) Auto [facility] Eosinophils (Bld) [#/Vol] 0.26 10*3/uL <0.46 k/uL [facility] Eosinophils/100 WBC (Bld) 4.5 % [facility] Erythrocyte distribution width (RBC) [Ratio] 18.1 % High 11.5 - 15.0 % [facility] Hematocrit (Bld) [Volume fraction] 30.1 % Low 36.0 - 46.0 % [facility] Hemoglobin (Bld) [Mass/Vol] 9.3 g/dL Low 11.5 - 15.5 g/dL [facility] Immature Gran % 0.2 % [facility] Lymphocytes (Bld) [#/Vol] 1.40 10*3/uL 1.00 - 4.00 k/uL [facility] Lymphocytes/100 WBC (Bld) 24.1 % [facility] MCH (RBC) [Entitic mass] 29.5 pg 26.0 - 34.0 pg [facility] MCHC (RBC) [Mass/Vol] 30.9 g/dL 30.5 - 36.0 g/dL [facility] MCV (RBC) [Entitic vol] 95.6 fL 80.0 - 100.0 fL [facility] Monocytes (Bld) [#/Vol] 0.36 10*3/uL <0.87 k/uL [facility] Monocytes/100 WBC (Bld) 6.2 % [facility] Neutrophils (Bld) [#/Vol] 3.76 10*3/uL 1.45 - 7.50 k/uL [facility] Neutrophils/100 WBC (Bld) 64.5 % [facility] Nucleated RBC (Bld) [#/Vol] <0.01 k/uL [facility] Nucleated RBC/100 WBC (Bld) [Ratio] 0.0 /100 WBC [facility] Platelet mean volume (Bld) [Entitic vol] 8.6 fL Low 9.0 - 12.7 fL [facility] Platelets (Bld) [#/Vol] 335 10*3/uL 150 - 400 k/uL [facility] RBC (Bld) [#/Vol] 3.15 10*6/uL Low 3.90 - 5.2 0 m/uL [facility] WBC (Bld) [#/Vol] 5.82 10*3/uL 3.70 - 11. 00 k/uL [facility] CNOVSPon 05-22-2022 CNOVSP Visit (SP) Office (HEMASA) KAYA SCHILLING ([id number]) 1965 F Date Time Provider Department 05/22/22 11:30 AM KAREL SAM During your visit today, we recorded the following information about you: Temperature Pulse Respiration Blood pressure 97.6 degrees 95/minute 16/minute 145/80 Weight Height 71.2 kg 1.651 m Karel Sam MD 05/22/2022 11:57 AM Signed PATIENT NAME: Kaya Schilling [facility] NO.: [id number] ATTENDING PHYSICIAN: Karel Sam MD DATE OF [...] Arthritis Bipolar 1 disorder (HCC) Broken jaw (HCC) no surgery COPD (chronic obstructive pulmonary disease) ([facility]) Diabetes mellitus (adult onset) ([facility]) History of broken nose had septoplasty Manic depression ([facility]) Dr. Rees Neck pain Pneumonia [...] General appearanc (more content not included)... Normal [facility] Ferritin SerPl-mCncon 2021 Ferritin [Mass/Vol] 3.2 ng/mL Low 14.7-205.1 [facility] Comment on above: Order Comment: Speci men Type: BLOOD SPECIMEN Ordering Facility: [facility] Address: [address] [place] [address] Performed By: #### S ERIMM #### [facility] CLIA [id number] [address] [place] [address] [place] Folate SerPl-ncon 05-22-20 22 Folate [Mass/Vol] ng/mL Normal >4.7 [facility] Comment on above: Order Comment: Speci men Type: BLOOD SPECIMEN Ordering Facility: [facility] Address: [address] [place] [address] Result Comment: A re sult of > 20 ng/mL is not necessarily indicative of a pathologic or treatable condition: it reflects a limitation of the test methodology. Assay reference range: 4.8 to 24.2 ng/mL. Suitable for detection of folate deficiency. Reference: Folate III (Folate III) [package insert V 1.0 Turkish]. [facility], [place], [place]: July 2015. Performed By: #### S ERIMM #### [facility] CLIA [id number] [address] [place] [address] [place] IMMUNOFIXATION SCREEN, SERUM on 05-22-2022 MPA RESULT No M protein is identified. Normal No M protein is identified. [facility] Comment on above: Order Comment: Speci men Type: BLOOD SPECIMEN Ordering Facility: [facility] Address: [address] [place], [place] [id number] Performed By: #### S ERIMM #### [facility] CLIA [id number] [address] [place] [address] [place] STAFF REVIEW (MPA) Reviewed by Mateo Armando MD, Ph.D ([id number]) Normal [facility] Comment on above: Order Comment: Speci men Type: BLOOD SPECIMEN Ordering Facility: [facility] Address: [address] [place], [place] [id number] Performed By: #### S ERIMM #### [facility] CLIA [id number] [address] [place] [address] [place] IMMUNOGLOBULINS GAMon 2021 IgA [Mass/Vol] 314 mg/dL Normal 70-400 [facility] Comment on above: Order Comment: Speci men Type: BLOOD SPECIMEN Ordering Facility: [facility] Address: [address] [place] [address] Performed By: #### S ERIMM #### [facility] CLIA [id number] [address] [place] [address] [place] IgG [Mass/Vol] 1099 mg/dL Normal 700-1600 [facility] Comment on above: Order Comment: Speci men Type: BLOOD SPECIMEN Ordering Facility: [facility] Address: [address] [place] [address] Performed By: #### S ERIMM #### [facility] CLIA [id number] [address] [place] [address] [place] IgM [Mass/Vol] 56 mg/dL Normal 40-230 [facility] Comment on above: Order Comment: Speci men Type: BLOOD SPECIMEN Ordering Facility: [facility] Address: [address] [place] [address] Performed By: #### S ERIMM #### [facility] CLIA [id number] [address] [place] [address] [place] Iron and Iron binding capaci ty panelon 05-22-2022 Iron [Mass/Vol] 34 ug/dL Low 41-186 [facility] Comment on above: Order Comment: Speci men Type: BLOOD SPECIMEN Ordering Facility: [facility] Address: [address] [place], [place] [id number] Performed By: #### S ERIMM #### [facility] CLIA [id number] [address] [place] [address] [place] Iron binding capacity [Mass/Vol] 467 ug/dL High 232-386 [facility] Comment on above: Order Comment: Speci men Type: BLOOD SPECIMEN Ordering Facility: [facility] Address: [address] [place] [address] Performed By: #### S ERIMM #### [facility] CLIA [id number] [address] [place] [address] [place] Iron/TIBC [Molar ratio] 7.3 % Low 15.0-57.0 [facility] Comment on above: Order Comment: Speci men Type: BLOOD SPECIMEN Ordering Facility: [facility] Address: [address] [place] [address] Performed By: #### S ERIMM #### [facility] CLIA [id number] [address] [place] [address] [place] KAPPA/JOHNSON,FREE,SERon 2021 Immunoglobulin light chains.kappa.free (S) [Mass/Vol] 40.4 mg/L High 3.3-19.4 [facility] Comment on above: Order Comment: Speci men Type: BLOOD SPECIMEN Ordering Facility: [facility] Address: [address] [place] [address] Performed By: #### S ERIMM #### [facility] CLIA [id number] [address] [place] [address] [place] Immunoglobulin light chains.kappa/Immunog lobulin light chains.lambda (S) [Mass ratio] 1.99 High 0.26-1.65 [facility] Comment on above: Order Comment: Speci men Type: BLOOD SPECIMEN Ordering Facility: [facility] Address: [address] [place], [place] [id number] Performed By: #### S ERIMM #### [facility] CLIA [id number] [address] [place] [address] [place] Immunoglobulin light chains.lambda.free [Mass/Vol] 20.3 mg/L Normal 5.7-26.3 [facility] Comment on above: Order Comment: Speci men Type: BLOOD SPECIMEN Ordering Facility: [facility] Address: [address] [place] [address] Performed By: #### S KELLYM #### [facility] CLIA [id number] [address] [place] [address] [place] LD LACTATE DEHYDROon 022 LDH [Catalytic activity/Vol] 149 U/L 135 - 214 U/L [facility] LDH SerPl-cCncon 05-22-2022 LDH [Catalytic activity/Vol] 149 U/L Normal 135-214 [facility] Comment on above: Order Comment: Speci men Type: BLOOD SPECIMEN Ordering Facility: [facility] Address: [address] [place] [address] Performed By: #### 2 532-0 #### [facility] CLIA [id number] [address] [place] [address] Prot Ur-mCncon 05-22-2022 Protein (U) [Mass/Vol] 8 mg/dL Normal 0-20 [facility] Comment on above: Order Comment: Speci men Type: URINE SPECIMEN Ordering Facility: [facility] Address: [address] [place], [place] [address] Performed By: #### 2 888-6 #### [facility] CLIA [id number] [address] [place] [address] [place] RETIC COUNTon 05-22-2022 Reticulocytes (Bld) [#/Vol] 0.11059 10*3/uL 0.018 - 0.100 M/uL [facility] Retics #on 05-22-2022 Reticulocytes (Bld) [#/Vol] 0.94801 10*3/uL Normal 0.018-0.100 [facility] Comment on above: Order Comment: Speci men Type: BLOOD SPECIMEN Ordering Facility: [facility] Address: [address] [place], [place] [id number] Performed By: #### S KELLYM #### [facility] CLIA [id number] [address] [place] [address] [place] Reticulocytes (Bld) [#/Vol]o n 05-22-2022 Reticulocytes/100 RBC (Bld) 1.9 % Normal 0.4-2.0 [facility] Comment on above: Order Comment: Speci men Type: BLOOD SPECIMEN Ordering Facility: [facility] Address: [address] [place] [address] Performed By: #### S KAUSHALIMM #### [facility] CLIA [id number] [address] [place] [address] [place] Reticulocytes/100 RBC (Bld) 1.9 % 0.4 - 2.0 % [facility] URINE PROTEIN ELECTROPHORESI S RANDOM (P)on 05-22-2022 Albumin Elph (U) [Mass fraction] 30.64 % Normal [facility] Comment on above: Order Comment: Speci men Type: URINE SPECIMEN Ordering Facility: [facility] Address: [address] [place] [address] Performed By: #### L [id number] #### [facility] CLIA [id number] [address] [place] [address] [place] Alpha 1 globulin Elph (U) [Mass fraction] 5.14 % Normal [facility] Comment on above: Order Comment: Speci men Type: URINE SPECIMEN Ordering Facility: [facility] Address: [address] [place], [place] [id number] Performed By: #### L [id number] #### [facility] CLIA [id number] [address] [place] [address] [place] Alpha 2 globulin Elph (U) [Mass fraction] 14.49 % Normal [facility] Comment on above: Order Comment: Speci men Type: URINE SPECIMEN Ordering Facility: [facility] Address: [address] [place] [address] Performed By: #### L [id number] #### [facility] CLIA [id number] [address] [place] [address] [place] Beta globulin Elph (U) [Mass fraction] 21.27 % Normal [facility] Comment on above: Order Comment: Speci men Type: URINE SPECIMEN Ordering Facility: [facility] Address: [address] [place] [address] Performed By: #### L [id number] #### [facility] CLIA [id number] [address] [place] [address] [place] [facility] [facility] Gamma globulin Elph (U) [Mass fraction] 28.46 % Normal [facility] Comment on above: Order Comment: Speci men Type: URINE SPECIMEN Ordering Facility: [facility] Address: [address] [place] [address] Performed By: #### L [id number] #### [facility] CLIA [id number] [address] [place] [address] [place] Protein Fractions Elph Ludin (U) [Interp] No definitive M protein is identified on protein electrophoresis. Normal No definitive M protein is identified on protein electrophoresi s. [facility] Comment on above: Order Comment: Speci men Type: URINE SPECIMEN Ordering Facility: [facility] Address: [address] [place] [address] Performed By: #### L [id number] #### [facility] CLIA [id number] [address] [place] [address] [place] STAFF REVIEW (URINE ELECTRO) Reviewed by Mateo Armando MD, Ph.D ([id number]) Normal [facility] Comment on above: Order Comment: Speci men Type: URINE SPECIMEN Ordering Facility: [facility] Address: [address] [place] [address] Performed By: #### L [id number] #### [facility] CLIA [id number] [address] [place] [address] [place] Vit B12 [facility] -16-2 022 Cobalamin (Vitamin B12) [Mass/Vol] pg/mL Low 232-1245 [facility] Comment on above: Order Comment: Speci men Type: BLOOD SPECIMEN Ordering Facility: [facility] Address: [address] [place], [place] [id number] Result Comment: Resu lt rechecked. Performed By: #### S KELLYM #### [facility] CLIA [id number] [address] [place] [address] [place] LITHIUMon 05-20-2022 [place] (Eskalith(R)), Serum 0.9 mmol/L Normal 0.5-1.[address] [facility] Comment on above: Result Comment: Plas ma concentration of 0.5 - 0.8 mmol/L are advised for long-term use; concentrations of up to 1.2 mmol/L may be necessary during acute treatment. Detection Limit = 0.1 <0.1 indicates None Detected Performed By: #### L ACT #### [facility] [address] [place] [address] Dr. Rosangela Smyth CREATININEon 05-19-2022 Creatinine [Mass/Vol] 0.84 mg/dL Normal 0.55-1.[address] [facility] Comment on above: Performed By: #### O BSCRN #### [facility] [address] [place] [address] Dr. Rosangela Smyth EGFR-AF [place] >60 Normal >=60 [facility] Comment on above: Performed By: #### O BSCRN #### [facility] [address] [address] [address] Rosangela Smyth EGFR-NON AF [place] >60 Normal >=[address] [facility] Comment on above: Performed By: #### O BSCRN #### [facility] [address] [place] [address] Dr. Rosangela Smyth TSHon 05-19-2022 TSH 2.337 uIU/mL Normal 0.358-3.[address] [facility] Comment on above: Performed By: #### O BSCRN #### [facility] [address] [place] [address] Dr. Rosangela Smyth CBC AUTO DIFFon 05-16-2022 BASO # 0.0 103/ul Normal 0.0-0.1 [facility] Comment on above: Performed By: #### L IPID, CMP #### [facility] [address] [address] [address] Rosangela Smyth Basophils/100 WBC (Bld) 0.4 % Normal 0.2-2.0 [facility] Comment on above: Performed By: #### L IPID, CMP #### [facility] [address] [place] [address] Dr. Rosangela Smyth EO # 0.3 103/ul Normal 0.0-0.7 [facility] Comment on above: Performed By: #### L IPID, CMP #### [facility] [address] [place] [address] Dr. Rosangela Smyth Eosinophils/100 WBC (Bld) 5.3 % Normal 0.9-7.0 [facility] Comment on above: Performed By: #### L IPID, CMP #### [facility] [address] [place] [address] Dr. Rosangela Smyth Erythrocyte distribution width (RBC) [Ratio] 18.5 % Critically high 11.0-15.[address] [facility] Comment on above: Performed By: #### L IPID, CMP #### [facility] [address] [place] [address] Dr. Rosangela Smyth Hematocrit (Bld) [Volume fraction] 30.9 % Critically low 36.0-48.[address] [facility] Comment on above: Performed By: #### L IPID, CMP #### [facility] [address] [place] [address] Dr. Rosangela Smyth Hemoglobin (Bld) [Mass/Vol] 9.7 g/dL Critically low 12.0-16.[address] [facility] Comment on above: Performed By: #### L IPID, CMP #### [facility] [address] [place] [address] Dr. Rosangela Smyth IG # 0.01 10e3/ul Normal 0.00-0.03 [facility] Comment on above: Performed By: #### L IPID, CMP #### [facility] [address] [address] [address] Rosangela Smyth IG % 0.2 % Normal 0.0-0.[address] [facility] Comment on above: Performed By: #### L IPID, CMP #### [facility] [address] [address] [address] Rosangela Smyth LYMPH # 1.7 103/ul Normal 1.2-3.[address] [facility] Comment on above: Performed By: #### L IPID, CMP #### [facility] [address] [address] [address] Rosangela Smyth Lymphocytes/100 WBC (Bld) 31.6 % Normal 20.5-60.[address] [facility] Comment on above: Performed By: #### L IPID, CMP #### [facility] [address] [address] [address] Rosangela Smyth MANUAL DIFF REQ NO Normal [facility] Comment on above: Performed By: #### L IPID, CMP #### [facility] [address] [address] [address] Rosangela Smyth MCH (RBC) [Entitic mass] 30.1 pg Normal 26.7-34.[address] [facility] Comment on above: Performed By: #### L IPID, CMP #### [facility] [address] [address] [address] Rosangela Smyth MCHC (RBC) [Mass/Vol] 31.4 g/dL Normal 29.9-35.[address] [facility] Comment on above: Performed By: #### L IPID, CMP #### [facility] [address] [address] [address] Rosangela Smyth MCV (RBC) [Entitic vol] 96.0 fL Normal 81.0-99.[address] [facility] Comment on above: Performed By: #### L IPID, CMP #### [facility] [address] [address] [address] Rosangela Smyth MONO # 0.5 103/ul Normal 0.3-0.[address] [facility] Comment on above: Performed By: #### L IPID, CMP #### [facility] [address] [place] [address] Dr. Rosangela Smyth Monocytes/100 WBC (Bld) 8.7 % Normal 1.7-12.[address] [facility] Comment on above: Performed By: #### L IPID, CMP #### [facility] [address] [place] [address] Dr. Rosangela Smyth NEUT # 3.0 103/ul Normal 1.4-6.[address] [facility] Comment on above: Performed By: #### L IPID, CMP #### [facility] [address] [place] [address] Dr. Rosangela Smyth Neutrophils/100 WBC (Bld) 53.8 % Normal 43.0-75.[address] [facility] Comment on above: Performed By: #### L IPID, CMP #### [facility] [address] [place] [address] Dr. Rosangela Smyth Platelet mean volume (Bld) [Entitic vol] 8.2 fL Critically low 9.5-13.[address] [facility] Comment on above: Performed By: #### L IPID, CMP #### [facility] [address] [place] [address] Dr. Rosangela Smyth PLT 361 103/ul Normal 150-450 [facility] Comment on above: Performed By: #### L IPID, CMP #### [facility] [address] [place] [address] Dr. Rosangela Smyth RBC 3.22 106/ul Critically low 4.20-5.40 [facility] Comment on above: Performed By: #### L IPID, CMP #### [facility] [address] [place] [address] Dr. Rosangela Smyth WBC 5.5 103/ul Normal 4.0-11.[address] [facility] Comment on above: Performed By: #### L IPID, CMP #### [facility] [address] [place] [address] Dr. Rosangela Smyth OCC BLD IMMUNO SCREENon 05-07 OCCULT BLOOD Negative Normal NEGATIVE [facility] Comment on above: Performed By: #### O BSCRN #### [facility] [address] [place] [address] Dr. Rosangela Smyth PROF CHEM 8 (BAS METB)on Anion gap [Moles/Vol] 13.7 mmol/L Normal [facility] Comment on above: Performed By: #### O BSCRN #### [facility] [address] [place] [address] Dr. Rosangela Smyth Calcium [Mass/Vol] 11.2 mg/dL Critically high 8.5-10.1 [facility] Comment on above: Performed By: #### O BSCRN #### [facility] [address] [place] [address] Dr. Rosangela Smyth Chloride [Moles/Vol] 105 mmol/L Normal 98-[address] [facility] Comment on above: Performed By: #### O BSCRN #### [facility] [address] [place] [address] Dr. Rosangela Smyth CO2 [Moles/Vol] 24.4 mmol/L Normal 21.0-32.0 [facility] Comment on above: Performed By: #### O BSCRN #### [facility] [address] [place] [address] Dr. Rosangela Smyth Creatinine [Mass/Vol] 0.95 mg/dL Normal 0.55-1.[address] [facility] Comment on above: Performed By: #### O BSCRN #### [facility] [address] [place] [address] Dr. Rosangela Smyth EGFR-AF [place] >60 Normal >=60 [facility] Comment on above: Performed By: #### O BSCRN #### [facility] [address] [place] [address] Dr. Rosangela Smyth EGFR-NON AF [place] =60 Normal >=[address] [facility] Comment on above: Performed By: #### O BSCRN #### [facility] [address] [place] [address] Dr. Rosangela Smyth Glucose [Mass/Vol] 91 mg/dL Normal 74-106 [facility] Comment on above: Performed By: #### O BSCRN #### [facility] [address] [place] [address] Dr. Rosangela Smyth Potassium [Moles/Vol] 4.1 mmol/L Normal 3.5-5.[address] [facility] Comment on above: Performed By: #### O BSCRN #### [facility] [address] [place] [address] Dr. Rosangela Smyth Sodium [Moles/Vol] 139 mmol/L Normal 136-145 [facility] Comment on above: Performed By: #### O BSCRN #### [facility] [address] [place] [address] Dr. Rosangela Smyth Urea nitrogen [Mass/Vol] 11.0 mg/dL Normal 7.0-18.[address] [facility] Comment on above: Performed By: #### O BSCRN #### [facility] [address] [place] [address] Dr. Rosangela Smyth Urea nitrogen/Creatinine [Mass ratio] 11.6 mg/mg Normal [facility] Comment on above: Performed By: #### O BSCRN #### [facility] [address] [place] [address] Dr. Rosangela Smyth CBC AUTO DIFFon 05-04-2022 BASO # 0.0 103/ul Normal 0.0-0.[address] [facility] Comment on above: Performed By: #### L IPID, CMP #### [facility] [address] [place] [address] Dr. Rosangela Smyth Basophils/100 WBC (Bld) 0.4 % Normal 0.2-2.[address] [facility] Comment on above: Performed By: #### L IPID, CMP #### [facility] [address] [place] [address] Dr. Rosangela Smyth EO # 0.4 103/ul Normal 0.0-0.[address] [facility] Comment on above: Performed By: #### L IPID, CMP #### [facility] [address] [place] [address] Dr. Rosangela Smyth Eosinophils/100 WBC (Bld) 6.6 % Normal 0.9-7.[address] [facility] Comment on above: Performed By: #### L IPID, CMP #### [facility] [address] [place] [address] Dr. Rosangela Smyth Erythrocyte distribution width (RBC) [Ratio] 19.3 % Critically high 11.0-15.0 [facility] Comment on above: Performed By: #### L IPID, CMP #### [facility] [address] [place] [address] Dr. Rosangela Smyth Hematocrit (Bld) [Volume fraction] 29.8 % Critically low 36.0-48.[address] [facility] Comment on above: Performed By: #### L IPID, CMP #### [facility] [address] [place] [address] Dr. Rosangela Smyth Hemoglobin (Bld) [Mass/Vol] 9.3 g/dL Critically low 12.0-16.[address] [facility] Comment on above: Performed By: #### L IPID, CMP #### [facility] [address] [place] [address] Dr. Rosangela Smyth IG # 0.01 10e3/ul Normal 0.00-0.[address] [facility] Comment on above: Performed By: #### L IPID, CMP #### [facility] [address] [place] [address] Dr. Rosangela Smyth IG % 0.2 % Normal 0.0-0.5 [facility] Comment on above: Performed By: #### L IPID, CMP #### [facility] [address] [place] [address] Dr. Rosangela Smyth LYMPH # 1.3 103/ul Normal 1.2-3.8 [facility] Comment on above: Performed By: #### L IPID, CMP #### [facility] [address] [place] [address] Dr. Rosangela Smyth Lymphocytes/100 WBC (Bld) 23.5 % Normal 20.5-60.0 [facility] Comment on above: Performed By: #### L IPID, CMP #### [facility] [address] [place] [address] Dr. Rosangela Smyth MANUAL DIFF REQ NO Normal [facility] Comment on above: Performed By: #### L IPID, CMP #### [facility] [address] [place] [address] Dr. Rosangela Smyth MCH (RBC) [Entitic mass] 29.3 pg Normal 26.7-34.[address] [facility] Comment on above: Performed By: #### L IPID, CMP #### [facility] [address] [place] [address] Dr. Rosangela Smyth MCHC (RBC) [Mass/Vol] 31.2 g/dL Normal 29.9-35.[address] [facility] Comment on above: Performed By: #### L IPID, CMP #### [facility] [address] [place] [address] Dr. Rosangela Smyth MCV (RBC) [Entitic vol] 94.0 fL Normal 81.0-99.[address] [facility] Comment on above: Performed By: #### L IPID, CMP #### [facility] [address] [place] [address] Dr. Rosangela Smyth MONO # 0.4 103/ul Normal 0.3-0.[address] [facility] Comment on above: Performed By: #### L IPID, CMP #### [facility] [address] [place] [address] Dr. Rosangela Smyth Monocytes/100 WBC (Bld) 6.6 % Normal 1.7-12.[address] [facility] Comment on above: Performed By: #### L IPID, CMP #### [facility] [address] [place] [address] Dr. Rosangela Smyth NEUT # 3.5 103/ul Normal 1.4-6.[address] [facility] Comment on above: Performed By: #### L IPID, CMP #### [facility] [address] [place] [address] Dr. Rosangela Smyth Neutrophils/100 WBC (Bld) 62.7 % Normal 43.0-75.[address] [facility] Comment on above: Performed By: #### L IPID, CMP #### [facility] [address] [place] [address] Dr. Rosangela Smyth Platelet mean volume (Bld) [Entitic vol] 8.2 fL Critically low 9.5-13.[address] [facility] Comment on above: Performed By: #### L IPID, CMP #### [facility] [address] [address] [address] Rosangela Smyth PLT 337 103/ul Normal 150-450 [facility] Comment on above: Performed By: #### L IPID, CMP #### [facility] [address] [place] [address] Dr. Rosangela Smyth RBC 3.17 106/ul Critically low 4.20-5.40 [facility] Comment on above: Performed By: #### L IPID, CMP #### [facility] [address] [place] [address] Dr. Rosangela Smyth WBC 5.6 103/ul Normal 4.0-11.[address] [facility] Comment on above: Performed By: #### L IPID, CMP #### [facility] [address] [place] [address] Dr. Rosangela Smyth TSHon 05-04-2022 TSH 1.227 uIU/mL Normal 0.358-3.[address] [facility] Comment on above: Performed By: #### L IPID, CMP #### [facility] [address] [place] [address] Dr. Rosangela Smyth GLYCOHEMOGLOBIN A1Con 2021 ADA RECOMMENDATION SEE BELOW Normal [facility] Comment on above: Result Comment: ADA RECOMMENDED LIMIT 4.0 - 6.0 ADA THERAPEUTIC TARGET < 7.0 ACTION SUGGESTED > 7.0 Performed By: #### L IPID, CMP #### [facility] [address] [place] [address] Dr. Rosangela Smyth Glucose [Mass/Vol] 154 mg/dL Normal [facility] Comment on above: Performed By: #### L IPID, CMP #### [facility] [address] [address] [address] Rosangela Smyth HbA1c (Bld) [Mass fraction] 7.0 % Critically high 4.5-6.[address] [facility] Comment on above: Performed By: #### L IPID, CMP #### [facility] [address] [address] [address] Rosangela Smyth LIPID PROFILEon 04-03-2022 CHOL-HDL RATIO NORM SEE BELOW Normal [facility] Comment on above: Result Comment: 3.3 - 4.4 LOW RISK 4.4 - 7.1 AVERAGE RISK 7.1 - 11.0 MODERATE RISK >11.0 HIGH RISK Performed By: #### L IPID, CMP #### [facility] [address] [address] [address] Rosangela Smyth Cholesterol [Mass/Vol] 147 mg/dL Normal <=[address] [facility] Comment on above: Performed By: #### L IPID, CMP #### [facility] [address] [address] [address] Rosangela Smyth Cholesterol in HDL [Mass/Vol] 64 mg/dL Critically high 40-[address] [facility] Comment on above: Performed By: #### L IPID, CMP #### [facility] [address] [address] [address] Rosangela Smyth Cholesterol in LDL [Mass/Vol] 70.8 mg/dL Normal [facility] Comment on above: Performed By: #### L IPID, CMP #### [facility] [address] [address] [address] Rosangela Smyth Cholesterol.total/Ch olesterol in HDL [Mass ratio] 2.3 {ratio} Normal [facility] Comment on above: Performed By: #### L IPID, CMP #### [facility] [address] [address] [address] Rosangela Smyth HDL NORMAL > or = 60 mg/dl - LOW CARDIOVASCULAR RISK <40 mg/dl - HIGH CARDIOVASCULAR RISK Normal [facility] Comment on above: Performed By: #### L IPID, CMP #### [facility] [address] [address] [address] Rosangela Smyth LDL CALC NORMAL SEE BELOW Normal [facility] Comment on above: Result Comment: <100 mg/dl OPTIMAL 100 - 129 mg/dl NEAR OR ABOVE OPTIMAL 130 - 159 mg/dl BORDERLINE HIGH 160 - 189 mg/dl HIGH >190 mg/dl VERY HIGH Performed By: #### L IPID, CMP #### [facility] [address] [address] [address] Rosangela Smyth Triglyceride [Mass/Vol] 61 mg/dL Normal <=[address] [facility] Comment on above: Performed By: #### L IPID, CMP #### [facility] [address] [address] [address] Rosangela Smyth VLDL CALC 12.2 mg/dL Normal [facility] Comment on above: Performed By: #### L IPID, CMP #### [facility] [address] [place] [address] Dr. Rosangela Smyth PROF 14(COMP METB)on 022 Albumin [Mass/Vol] 3.7 g/dL Normal 3.4-5.0 [facility] Comment on above: Performed By: #### L IPID, CMP #### [facility] [address] [address] [address] Rosangela Smyth Albumin/Globulin [Mass ratio] 1.1 {ratio} Normal [facility] Comment on above: Performed By: #### L IPID, CMP #### [facility] [address] [address] [address] Rosangela Smyth ALP [Catalytic activity/Vol] 92 U/L Normal 46-116 [facility] Comment on above: Performed By: #### L IPID, CMP #### [facility] [address] [address] [address] Rosangela Smyth ALT [Catalytic activity/Vol] 25 U/L Normal 14-[address] [facility] Comment on above: Performed By: #### L IPID, CMP #### [facility] [address] [place] [address] Dr. Rosangela Smyth Anion gap [Moles/Vol] 11.8 mmol/L Normal [facility] Comment on above: Performed By: #### L IPID, CMP #### [facility] [address] [address] [address] Rosangela Smyth AST [Catalytic activity/Vol] 11 U/L Critically low 15-[address] [facility] Comment on above: Performed By: #### L IPID, CMP #### [facility] [address] [place] [address] Dr. Rosangela Smyth Bilirubin [Mass/Vol] 0.2 mg/dL Normal 0.2-1.[address] [facility] Comment on above: Performed By: #### L IPID, CMP #### [facility] [address] [place] [address] Dr. Rosangela Smyth Calcium [Mass/Vol] 10.6 mg/dL Critically high 8.5-10.1 [facility] Comment on above: Performed By: #### L IPID, CMP #### [facility] [address] [place] [address] Dr. Rosangela Smyth Chloride [Moles/Vol] 105 mmol/L Normal 98-[address] [facility] Comment on above: Performed By: #### L IPID, CMP #### [facility] [address] [place] [address] Dr. Rosangela Smyth CO2 [Moles/Vol] 25.9 mmol/L Normal 21.0-32.0 [facility] Comment on above: Performed By: #### L IPID, CMP #### [facility] [address] [place] [address] Dr. Rosangela Smyth Creatinine [Mass/Vol] 0.86 mg/dL Normal 0.55-1.[address] [facility] Comment on above: Performed By: #### L IPID, CMP #### [facility] [address] [place] [address] Dr. Rosangela Smyth EGFR-AF [place] >60 Normal >=60 [facility] Comment on above: Performed By: #### L IPID, CMP #### [facility] [address] [place] [address] Dr. Rosangela Smyth EGFR-NON AF [place] >60 Normal >=60 [facility] Comment on above: Performed By: #### L IPID, CMP #### [facility] [address] [address] [address] Rosangela Smyth Globulin (S) [Mass/Vol] 3.5 g/dL Normal [facility] Comment on above: Performed By: #### L IPID, CMP #### [facility] [address] [address] [address] Rosangela Smyth Glucose [Mass/Vol] 197 mg/dL Critically high 74-106 [facility] Comment on above: Performed By: #### L IPID, CMP #### [facility] [address] [place] [address] Dr. Rosangela Smyth Potassium [Moles/Vol] 4.7 mmol/L Normal 3.5-5.[address] [facility] Comment on above: Performed By: #### L IPID, CMP #### [facility] [address] [place] [address] Dr. Rosangela Smyth Protein [Mass/Vol] 7.2 g/dL Normal 6.4-8.2 [facility] Comment on above: Performed By: #### L IPID, CMP #### [facility] [address] [place] [address] Dr. Rosangela Smyth Sodium [Moles/Vol] 138 mmol/L Normal 136-145 [facility] Comment on above: Performed By: #### L IPID, CMP #### [facility] [address] [place] [address] Dr. Rosangela Smyth Urea nitrogen [Mass/Vol] 16.0 mg/dL Normal 7.0-18.[address] [facility] Comment on above: Performed By: #### L IPID, CMP #### [facility] [address] [place] [address] Dr. Rosangela Smyth Urea nitrogen/Creatinine [Mass ratio] 18.6 mg/mg Normal [facility] Comment on above: Performed By: #### L IPID, CMP #### [facility] [address] [place] [address] Dr. Rosangela Smyth GLYCOHEMOGLOBIN A1Con 05-28- 2022 ADA RECOMMENDATION SEE BELOW Normal [facility] Comment on above: Result Comment: ADA RECOMMENDED LIMIT 4.0 - 6.0 ADA THERAPEUTIC TARGET < 7.0 ACTION SUGGESTED > 7.0 Performed By: #### L IPID, CMP #### [facility] [address] [address] [address] Rosangela Smyth Glucose [Mass/Vol] 134 mg/dL Normal [facility] Comment on above: Performed By: #### L IPID, CMP #### [facility] [address] [address] [address] Rosangela Smyth HbA1c (Bld) [Mass fraction] 6.3 % Critically high 4.5-6.[address] [facility] Comment on above: Performed By: #### L IPID, CMP #### [facility] [address] [place] [address] Dr. Rosangela Smyth LIPID PROFILEon 01-31-2022 CHOL-HDL RATIO NORM SEE BELOW Normal [facility] Comment on above: Result Comment: 3.3 - 4.4 LOW RISK 4.4 - 7.1 AVERAGE RISK 7.1 - 11.0 MODERATE RISK >11.0 HIGH RISK Performed By: #### L ACT #### [facility] [address] [address] [address] Rosangela Smyth Cholesterol [Mass/Vol] 134 mg/dL Normal <=[address] [facility] Comment on above: Performed By: #### L ACT #### [facility] [address] [address] [address] Rosangela Smyth Cholesterol in HDL [Mass/Vol] 68 mg/dL Critically high 40-[address] [facility] Comment on above: Performed By: #### L ACT #### [facility] [address] [address] [address] Rosangela Smyth Cholesterol in LDL [Mass/Vol] 55.0 mg/dL Normal [facility] Comment on above: Performed By: #### L ACT #### [facility] [address] [address] [address] Rosangela Smyth Cholesterol.total/Ch olesterol in HDL [Mass ratio] 2.0 {ratio} Normal [facility] Comment on above: Performed By: #### L ACT #### [facility] [address] [address] [address] Rosangela Smyth HDL NORMAL > or = 60 mg/dl - LOW CARDIOVASCULAR RISK <40 mg/dl - HIGH CARDIOVASCULAR RISK Normal [facility] Comment on above: Performed By: #### L ACT #### [facility] [address] [address] [address] Rosangela Smyth LDL CALC NORMAL SEE BELOW Normal [facility] Comment on above: Result Comment: <100 mg/dl OPTIMAL 100 - 129 mg/dl NEAR OR ABOVE OPTIMAL 130 - 159 mg/dl BORDERLINE HIGH 160 - 189 mg/dl HIGH >190 mg/dl VERY HIGH Performed By: #### L ACT #### [facility] [address] [address] [address] Rosangela Smyth Triglyceride [Mass/Vol] 55 mg/dL Normal <=[address] [facility] Comment on above: Performed By: #### L ACT #### [facility] [address] [address] [address] Rosangela Smyth VLDL CALC 11.0 mg/dL Normal [facility] Comment on above: Performed By: #### L ACT #### [facility] [address] [place] [address] Dr. Rosangela Smyth PROF 14(COMP METB)on 022 Albumin [Mass/Vol] 4.0 g/dL Normal 3.4-5.0 [facility] Comment on above: Performed By: #### L ACT #### [facility] [address] [place] [address] Dr. Rosangela Smyth Albumin/Globulin [Mass ratio] 1.0 {ratio} Normal [facility] Comment on above: Performed By: #### L ACT #### [facility] [address] [place] [address] Dr. Rosangela Smyth ALP [Catalytic activity/Vol] 105 U/L Normal 46-[address] [facility] Comment on above: Performed By: #### L ACT #### [facility] [address] [place] [address] Dr. Rosangela Smyth ALT [Catalytic activity/Vol] 30 U/L Normal 14-[address] [facility] Comment on above: Performed By: #### L ACT #### [facility] [address] [address] [address] Rosangela Smyth Anion gap [Moles/Vol] 10.7 mmol/L Normal [facility] Comment on above: Performed By: #### L ACT #### [facility] [address] [address] [address] Rosangela Smyth AST [Catalytic activity/Vol] 14 U/L Critically low 15-[address] [facility] Comment on above: Performed By: #### L ACT #### [facility] [address] [address] [address] Rosangela Smyth Bilirubin [Mass/Vol] 0.2 mg/dL Normal 0.2-1.[address] [facility] Comment on above: Performed By: #### L ACT #### [facility] [address] [place] [address] Dr. Rosangela Smyth Calcium [Mass/Vol] 11.1 mg/dL Critically high 8.5-10.1 [facility] Comment on above: Performed By: #### L ACT #### [facility] [address] [place] [address] Dr. Rosangela Smyth Chloride [Moles/Vol] 104 mmol/L Normal 98-107 [facility] Comment on above: Performed By: #### L ACT #### [facility] [address] [address] [address] Rosangela Smyth CO2 [Moles/Vol] 26.8 mmol/L Normal 21.0-32.0 [facility] Comment on above: Performed By: #### L ACT #### [facility] [address] [place] [address] Dr. Rosangela Smyth Creatinine [Mass/Vol] 0.68 mg/dL Normal 0.55-1.[address] [facility] Comment on above: Performed By: #### L ACT #### [facility] [address] [place] [address] Dr. Rosangela Smyth EGFR-AF [place] >60 Normal >=60 [facility] Comment on above: Performed By: #### L ACT #### [facility] [address] [address] [address] Rosangela Smyth EGFR-NON AF [place] >60 Normal >=[address] [facility] Comment on above: Performed By: #### L ACT #### [facility] [address] [address] [address] Rosangela Smyth Globulin (S) [Mass/Vol] 4.0 g/dL Normal [facility] Comment on above: Performed By: #### L ACT #### [facility] [address] [address] [address] Rosangela Smyth Glucose [Mass/Vol] 142 mg/dL Critically high 74-106 [facility] Comment on above: Performed By: #### L ACT #### [facility] [address] [address] [address] Rosangela Smyth Potassium [Moles/Vol] 4.5 mmol/L Normal 3.5-5.[address] [facility] Comment on above: Performed By: #### L ACT #### [facility] [address] [address] [address] Rosangela Smyth Protein [Mass/Vol] 8.0 g/dL Normal 6.4-8.2 [facility] Comment on above: Performed By: #### L ACT #### [facility] [address] [address] [address] Rosangela Smyth Sodium [Moles/Vol] 137 mmol/L Normal 136-145 [facility] Comment on above: Performed By: #### L ACT #### [facility] [address] [address] [address] Rosangela Smyth Urea nitrogen [Mass/Vol] 14.0 mg/dL Normal 7.0-18.[address] [facility] Comment on above: Performed By: #### L ACT #### [facility] [address] [address] [address] Rosangela Smyth Urea nitrogen/Creatinine [Mass ratio] 20.6 mg/mg Normal [facility] Comment on above: Performed By: #### L ACT #### [facility] [address] [place] [address] Dr. Rosangela Smyth Gamma Glutamyl Transpeptidas anurag 07-23-2021 Gamma Glutamyl Transpeptidase 71 7 [facility] Other Ambulatory Clinical Summaryo n 02-26-2021 Ambulatory Clinical Summary {[id number]}CD:[id number] Normal [facility] Ambulatory Clinical Summaryo n 02-07-2021 Ambulatory Clinical Summary {[id number]}CD:[id number] [facility] Ambulatory Clinical Summary {[id number]}CD:[id number] [facility] Formson 02-07-2021 Forms [id number] #1.00CD:127 [facility] Historical Records Officeon 02-07-2021 Historical Records Office [id number] #1.00CD:127 [facility] Patient Educationon 02-08-20 Patient Education Urology [...] stimulation). ? For women, using a medical policy specialist to prevent urine leaks. This is a [...] after experiencing incontinence. General instructions ? Take xoll-hob-knbcpil and prescription medicines only as (more content not included)... Normal [facility] Urology Office/Clinic Noteon 02-07-2021 Urology Office/Clinic Note Chief Complaint Stress incontinence HPI Staff New pt here for stress incontinence. Pt had a TVT done [place] [address] Cote. Pt states that she has had a [...] Will order Local anesthesia. ABX sent to [facility] in [place]. I have reviewed the previous health record information and history for this pt. from Dr. Cote. Follow-up With When Contact Information KERA VAN, Chicho Beaulieu, URL [address] [place] [address] [place] [address]- [phone] Additional Instructions: Patient Education Urinary Incontinence I, Vanesa Pruitt , personally scribed for Dr. Cote on 02/07/2021 11:44:30. . Documentation recorded by the scribe, Vanesa Pruitt, accurately reflects the services(s) I performed and decisions made by me. Authenticated by Dr. Cote on 02/07/2021 11:46:49. Problem List/Past Medical History [...] 10:55:00) Nitrite (more content not included)... Normal [facility] Comment on above: Result Comment: Elec tronically Signed By: Chicho COTE MD\.br\Date and Time Signed: 02/07/21 11:47 EDT\.br\Electronically Co-Signed By: Vanesa Pruitt MA\.br\Date and Time Co-Signed: 02/07/21 11:[address] NECK SOFT TISSUE WO IVCON on 01-29-2021 [facility] Physician Referralon 020 Physician Referral [id number] #1.00CD:127 Normal [facility] Vital Signs Date Time Vital Sign Value Performing Clinician Facility 05-22-2022 11:23-0400 Body height 165.1 cm Karel Sam MD Work Phone: [facility] 05-22-2022 11:23-0400 Body temperature 97.59 [degF] Karel Sam MD Work Phone: [facility] 05-22-2022 11:23-0400 Body weight 71.22 kg Karel Sam MD Work Phone: [facility] 05-22-2022 11:23-0400 Diastolic blood pressure 80 mm[Hg] Karel Sam MD Work Phone: [facility] 05-22-2022 11:23-0400 Heart rate 95 /min Karel Sam MD Work Phone: [facility] 05-22-2022 11:23-0400 Respiratory rate 16 /min Karel Sam MD Work Phone: [facility] 05-22-2022 11:23-0400 SaO2% (BldA) [Mass fraction] 100 % Karel Sam MD Work Phone: [facility] 05-22-2022 11:23-0400 Systolic blood pressure 145 mm[Hg] Karel Sam MD Work Phone: [facility] 07-23-2021 11:45-0500 Body height 165.1 cm Neo Calhoun Other [facility] Other 07-23-2021 11:45-0500 Body mass index (BMI) [Ratio] 24.29 kg/m2 Neo Calhoun Other [facility] Other 07-23-2021 11:45-0500 Body weight 66.23 kg Neo Calhoun Other [facility] Other 06-02-2021 15:40-0400 Body height 165.1 cm Brynn Mg Other [facility] Other 06-02-2021 15:40-0400 Body mass index (BMI) [Ratio] 24.83 kg/m2 [facility] Other [facility] Other 06-02-2021 15:40-0400 Body temperature 96.9 [degF] Brynn Mg Other [facility] Other 06-02-2021 15:40-0400 Body weight 67.68 kg Brynn Mg Other [facility] Other 06-02-2021 15:40-0400 Diastolic blood pressure 80 mm[Hg] Brynn Mg Other [facility] Other 06-02-2021 15:40-0400 Respiratory rate 18 /min Brynn Mg Other [facility] Other 06-02-2021 15:40-0400 SaO2% (BldA) [Mass fraction] 99 % Brynn Mg Other [facility] Other 06-02-2021 15:40-0400 Systolic blood pressure 136 mm[Hg] Brynn Mg Other [facility] Other Encounters Encounter Date Encounter Type Care Provider Facility Start: 02-02-2024 ambulatory Dajuan Ardonelaziz Facility:[facility] Start: 02-02-2024 End: 02-02-2024 ambulatory [facility] Start: 01-21-2024 End: 01-22-2024 ambulatory [facility] Start: 01-21-2024 End: 01-21-2024 ambulatory [facility] Start: 11-17-2023 End: 11-17-2023 ambulatory [facility] Start: 11-17-2023 End: 11-17-2023 Office outpatient visit 15 minutes [facility] [employer] Work Phone: [facility] - [facility] Comment on above: Diarrhea of presumed infectious origin (Primary Dx); Weakness; Type 2 diabetes mellitus without complication, without long-term current use of insulin ([facility]); Hyperparathyroidism ([facility]) Start: 11-11-2023 Telephone encounter Con Gleason [facility] Start: 11-05-2023 Telephone encounter Con Gleason [facility] Start: 10-25-2023 [facility] Comment on above: Type 2 diabetes noe itus without complication, without long- term current use of insulin ([facility]) Start: 10-24-2023 [facility] Work [facility]: [facility] Comment on above: Type 2 diabetes noe itus without complication, without long- term current use of insulin ([facility]) Start: 09-03-2023 Refill Kostas navas DO Work Phone: [facility] Comment on above: Acquired hypothyroid ism Start: 08-23-2023 End: 08-24-2023 ambulatory KOSTAS CHENELOISE [facility] Start: 08-23-2023 End: 08-23-2023 ambulatory KOSTAS CHENELOISE [facility] Start: 01-17-2023 End: 01-17-2023 ambulatory [...] 07-15-2022 End: 07-15-2022 ambulatory Neo Calhoun Other [facility] Other Start: 07-15-2022 Telephone encounter Neo Nation c[facility] Therapist Start: 07-08-2022 End: 07-08-[address] TEE KRAUSE . Facility:[facility] Start: 07-03-2022 Telephone encounter Karel hardwick MD Work Phone: [facility] Comment on above: Patient Update Start: 06-04-2022 Telephone encounter Karel hardwick MD [facility] Phone[facility] Comment on above: Appointment Cancelle d Start: 05-29-2022 Telephone encounter Jackie COMERW H ematology/Oncology Comment on above: Social Work Services Start: 05-26-2022 Telephone encounter Regina Soto Efrain martinr PA-C Work Phone: Hematology/Oncology Comment on above: Lab Orders Start: 05-25-2022 Telephone encounter Yvonne Crump RN Hematology/Oncology Comment on above: Results Start: 05-22-2022 End: 05-23-2022 ambulatory KOSTAS STEWARD Facility:[facility] Start: 05-22-2022 End: 05-22-2022 ambulatory Karel Sam MD Work Phone: Hematology/Oncology Comment on above: Anemia, normocytic n ormochromic (Primary Dx) Start: 05-22-2022 End: 05-22-2022 Patient encounter procedure Karel Sam MD Work Phone: [place] Start: 05-21-2022 Chart abstracting Karel gee MD Work Phone: Hematology/Oncology Start: 05-19-2022 End: 05-20-[address] KOSTAS STEWARD Facility:[facility] Start: 05-16-2022 End: 05-16-2022 ambulatory FOX DUFF Facility:[facility] Start: 05-04-2022 End: 05-05-[address] KOSTAS STEWARD Facility:[facility] Start: 04-23-2022 End: 04-23-2022 ambulatory Neo Calhoun Other [facility] Other Start: 04-23-2022 Telephone encounter Neo Nation c[facility] Start: 04-03-2022 End: 04-04-[address] KOSTAS STEWARD Facility:[facility] Start: 01-31-2022 End: 02-01-[address] KOSTAS STEWARD Facility:[facility] Start: 01-02-2022 End: 01-02-2022 ambulatory Neo Calhoun Other [facility] Other Start: 01-02-2022 Telephone encounter Neo Nation sherry [facility] Gastroenterology Start: 08-18-2021 End: 08-18-2021 ambulatory Neo Calhoun Other [facility] Other Start: 08-18-2021 Telephone encounter Neo Nation sherry [facility] Gastroenterology Start: 07-23-2021 End: 07-23-2021 ambulatory Neo Calhoun Other [facility] Other Start: 07-23-2021 Office outpatient vi sit 25 minutes Neo Ashley [facility] Gastroenterology Start: 06-02-2021 Office outpatient ne w 45 minutes Brynn Holliday [facility] Nephrology Start: 01-29-2021 End: 01-29-2021 Subsequent hospital visit by physician [facility] ([facility]) Radiology Comment on above: Disorder of airway [ J98.9] Procedures Date Procedure Procedure Detail Performing Clinician Start: 01-21-2024 Follow-up visit Follow-up KOSTAS STEWARD Start: 08-23-2023 Adult depression scr eening assessment Kostas Steward DO Work Phone: Start: 08-23-2023 Microalbumin [Mass/v olume] in Urine by Test strip Kostas Steward DO Work Phone: Start: 08-12-2023 Mammography Kostas Chen long DO Work Phone: Start: 04-01-2023 Diabetic retinal eye exam Kostas ChenSmackageseloise DO Work Phone: Start: 01-29-2021 Ct soft tissue neck w/o contrast material Trev Shah MD Work Phone: Start: 01-29-2021 Ct thorax w/o contra st material Trev Shah MD Work Phone: Start: 04-06-2018 Colonoscopy Kostas Fur long DO Work Phone: Start: 06-04-2016 Adult depression scr eening assessment Karel Sam MD Work Phone: Plan of Treatment Date Care Activity Detail Author Start: 04-06-2028 Screening for malign ant neoplasm of colon Colonoscopy [facility] Start: 08-23-2024 Adult BMI Screening Adult BMI Screen ing [facility] Start: 08-23-2024 Depression Screening Depression Scre ening [facility] Start: 08-23-2024 Tobacco Screening Tobacco Screening [facility] Start: 08-23-2024 Urine screening for protein Urine Microalbumin [facility] Start: 08-12-2024 Screening for malign ant neoplasm of breast Mammogram [facility] Start: 04-01-2024 Glaucoma screening Diabetic Op hthalmology Exam [facility] Start: 03-15-2024 Diabetic foot examination Diabetic F oot Exam [facility] Start: 12-01-2023 End: 12-01-2023 Patient encounter procedure 12/01/2023 4:00 PM EDT Office Visit [facility] Internal Medicine - Family Medicine [address] [place] [address] Anna Marie Monge, [employer] [address] [place] [address] [facility] - [facility] Start: 05-07-2023 Influenza vaccination C [facility] Start: 11-11-2022 PNEUMOCOCCAL (2 - PCV) PNEUMOCOCCAL (2 - PCV) [facility] Start: 11-11-2022 Pneumococcal vaccination Pneum ococcal Vaccine (2 - PCV) [facility] Start: 09-06-2022 Depression Assessment Depression Ass essment [facility] Start: 06-19-2022 End: 08-19-2022 PROTEIN ELECTROPHORESIS SERUM W/INTERP PROTEIN ELECTROPHORESIS SERUM W/INTERP Lab Routine Anemia, normocytic normochromic Expected: 06/19/2022 (Approximate), Expires: 08/19/2022 [facility] Work Phone: Comment on above: Expected: 06/19/2022 (Approximate), Expires: 08/19/2022 Start: 06-12-2022 End: 08-12-2022 Thyrotropin [Units/volume] in Serum or Plasma TSH BLD Lab Routine Anemia, normocytic normochromic Expected: 06/12/2022 (Approximate), Expires: 08/12/2022 [facility] Work Phone: Comment on above: Expected: 06/12/2022 (Approximate), Expires: 08/12/2022 Start: 06-05-2022 End: 08-05-2022 Comprehensive metabolic 2000 panel - Serum or Plasma COMP METABOLIC PANEL Lab Routine Anemia, normocytic normochromic Expected: 06/05/2022 (Approximate), Expires: 08/05/2022 [facility] Work Phone: Comment on above: Expected: 06/05/2022 (Approximate), Expires: 08/05/2022 Start: 05-26-2022 End: 07-26-2022 CBC W Auto Differential panel - Blood CBC + DIFF Lab Routine Anemia, normocytic normochromic Expected: 05/26/2022, Expires: 07/26/2022 [facility] Work Phone: Comment on above: Expected: 05/26/2022 , Expires: 07/26/2022 Start: 05-26-2022 End: 07-26-2022 Comprehensive metabolic 2000 panel - Serum or Plasma COMP METABOLIC PANEL Lab Routine Anemia, normocytic normochromic Expected: 05/26/2022, Expires: 07/26/2022 [facility] Work Phone: Comment on above: Expected: 05/26/2022 , Expires: 07/26/2022 Start: 05-26-2022 End: 07-26-2022 Ferritin [Mass/volume] in Serum or Plasma FERRITIN BLD Lab Routine Anemia, normocytic normochromic Expected: 05/26/2022, Expires: 07/26/2022 [facility] Work Phone: Comment on above: Expected: 05/26/2022 , Expires: 07/26/2022 Start: 05-26-2022 End: 07-26-2022 Iron and Iron binding capacity panel - Serum or Plasma IRON + TIBC Lab Routine Anemia, normocytic normochromic Expected: 05/26/2022, Expires: 07/26/2022 [facility] Work Phone: Comment on above: Expected: 05/26/2022 , Expires: 07/26/2022 Start: 05-22-2022 End: 07-22-2022 Cobalamin (Vitamin B12) [Mass/volume] in Serum or Plasma [facility] Work Phone: Comment on above: Expected: 05/22/2022 , Expires: 07/22/2022 Start: 05-22-2022 End: 05-22-2023 Ferritin [Mass/volume] in Serum or Plasma [facility] Work Phone: Comment on above: Expected: 05/22/2022 , Expires: 05/22/2023 Start: 05-22-2022 End: 07-22-2022 Folate [Mass/volume] in Serum or Plasma [facility] Work Phone: Comment on above: Expected: 05/22/2022 , Expires: 07/22/2022 Start: 05-22-2022 End: 05-22-2023 Iron and Iron binding capacity panel - Serum or Plasma [facility] Work Phone: Comment on above: Expected: 05/22/2022 , Expires: 05/22/2023 Start: 05-22-2022 End: 07-22-2022 MONOCLONAL PROTEIN, SERUM (BLOOD) [facility] Work Phone: Comment on above: Expected: 05/22/2022 , Expires: 07/22/2022 Start: 05-22-2022 End: 07-22-2022 PROTEIN ELECT RND UR W/INTERP [facility] Work Phone: Comment on above: Expected: 05/22/2022 , Expires: 07/22/2022 Start: 05-07-2022 Influenza vaccination INFLUENZA (#1) [facility] Start: 09-06-2021 DEPRESSION ASSESSMENT DEPRESSION ASS ESSMENT [facility] Start: 06-04-2017 Adult depression screening assessment DEPRESSION SCREENING [facility] Start: 01-09-2014 Administration of varicella zoster vaccine Zoster (Shingles) Vaccine (1 of 2) [facility] Start: 01-09-2014 SHINGRIX VACCINE (1 of 2) FERGUSON GRIX VACCINE (1 of 2) [facility] Start: 01-09-2009 COLOGUARD (FIT-DNA) COLOGUARD (FIT-D NA) [facility] Start: 01-09-2009 Colonoscopy COLONOSCOPY [facility] Start: 01-09-2009 COLORECTAL CANCER SCREENING COLORECTAL CANCER SCREENING [facility] Start: 01-09-[address] COLONOGRAPHY [facility] Start: 01-09-2009 DIABETES SCREEN DIABETES SCREEN [facility] Start: 01-09-2009 Diabetes Screening Diabetes Screenin g [facility] Start: 01-09-2009 FECAL OCCULT BLOOD FECAL OCCULT BLOO D [facility] Start: 01-09-2009 Lipid 1996 panel - S elissa or Plasma Lipid Screening [facility] Start: 01-09-2009 LIPID SCREEN LIPID SCREEN [facility] Start: 01-09-2009 SIGMOIDOSCOPY SIGMOIDOSCOPY [facility] Start: 2004 Mammography [facility] Start: 01-09-1994 HPV TESTING HPV TESTING [facility] Start: 01-09-1994 Zoledronic acid therapy ALPHA- 1 ANTITRYPSIN DEFICIENCY SCREENING [facility] Start: 01-09-1985 PAP TESTING PAP TESTING [facility] Start: 01-09-1985 Screening for malign ant neoplasm of cervix Pap Smear [facility] Start: 01-09-1983 DTaP,Tdap and Td Vac cines (1 - Tdap) DTaP,Tdap and Td Vaccines (1 - Tdap) [facility] Start: 01-09-1983 Urine microalbumin profile [facility] Start: 01-09-1982 ANNUAL PCP TEAM PSYCHOTHERAPIST ALLEN DISEASE VISIT ANNUAL PCP TEAM CHRONIC DISEASE VISIT [facility] Start: 01-09-1982 HEPATITIS C SCREENING HEPATITIS C SC REENING [facility] Start: 01-09-1982 HIV SCREENING HIV SCREENING [facility] Start: 01-09-1970 PNEUMOCOCCAL (1 - PCV) PNEUMOCOCCAL (1 - PCV) [facility] Start: 1965 COVID-19 VACCINE (#1) COVID-19 VACCI NE (#1) [facility] Start: 1965 HEPATITIS B (1 of 3 - 3-dose series) HEPATITIS B (1 of 3 - 3-dose series) [facility] End: 11-16-2024 C difficile by PCR C difficile by PCR Lab Routine Diarrhea of presumed infectious origin 1 Occurrences starting 11/17/2023 until 11/16/2024 [facility] Comment on above: 1 Occurrences starti ng 11/17/2023 until 11/16/2024 End: 11-16-2024 GI Panel(stool pathogen panel) GI Panel(stool pathogen panel) Lab Routine Diarrhea of presumed infectious origin 1 Occurrences starting 11/17/2023 until 11/16/2024 [facility]: Comment on above: 1 Occurrences starti ng 11/17/2023 until 11/16/2024 [facility] Immunizations Immunization Date Immunization Notes Care Provider [facility] 06-13-2022 Influenza, injectabl e, Madin Serene Canine Kidney, preservative free, quadrivalent Kostas Furlong DO Work Phone: [facility] 06-13-2022 Pneumococcal Conjuga te 20-valent Kostas Furlong DO Work Phone: [facility] 06-13-2022 influenza virus vaccine, unspecified formulation Kostas Furlong DO Work Phone: [facility] 11-11-2021 Influenza, injectabl e, Madin Serene Canine Kidney, preservative free, quadrivalent Karel Sam MD Work Phone: [facility] 11-11-2021 pneumococcal polysaccharide vaccine, 23 valent Karel Sam MD Work Phone: [facility] 11-11-2021 influenza virus vaccine, unspecified formulation Ct (I-Stat) [facility] 09-06-2020 influenza, seasonal, injectable Karel Sam MD Work Phone: [facility] 07-21-2020 influenza, seasonal, injectable Kostas Furlong DO Work Phone: [facility] 07-02-2020 influenza, injectabl e, quadrivalent, contains preservative Kostas Furlong DO Work Phone: [facility] 06-14-2019 influenza, injectabl e, quadrivalent, contains preservative Kostas Steward DO Work Phone: [facility] 06-14-2019 pneumococcal polysaccharide vaccine, 23 valent Kostas Steward DO Work Phone: [facility] 06-28-2017 Influenza, injectabl e, Madin Serene Canine Kidney, preservative free, quadrivalent Karel Sam MD Work Phone: [facility] 07-17-2015 influenza, seasonal, injectable, preservative free Karel Sam MD Work Phone: [facility] 07-27-2014 influenza, seasonal, injectable, preservative free Karel Sam MD Work Phone: [facility] 06-06-2014 influenza, injectabl e, quadrivalent, preservative free Brynn Holliday Other [facility] [employer] Other 07-11-2013 influenza virus vaccine, whole virus Kostas Steward DO Work Phone: [facility] Payers Date Payer Category Payer Self-pay 2013 Medicaid [id number] 1965 Unknown [id number] 2.16.84 0.1.375689.3.579.2.593 1964 Unknown [id number] 2.16.84 0.1.367569.3.579.2.593 1964 Unknown [id number] 2.16.84 0.1.406956.3.579.2.593 1964 Unknown [id number] 2.16.84 0.1.141382.3.579.2.593 1964 Unknown [id number] 2.16.84 0.1.638333.3.579.2.593 1964 Unknown [id number] 2.16.84 0.1.484553.3.579.2.593 1964 Unknown [id number] 2.16.84 0.1.759917.3.579.2.593 1964 Unknown [id number] 2.16.84 0.1.904568.3.579.2.593 1964 Unknown [id number] 2.16.84 0.1.289127.3.579.2.593 1964 Unknown [id number] 2.16.84 0.1.380111.3.579.2.593 1964 Unknown [id number] 2.16.84 0.1.603983.3.579.2.593 1964 Unknown [id number] 2.16.84 0.1.614801.3.579.2.593 1964 Unknown [id number] 2.16.84 0.1.410693.3.579.2.593 1964 Unknown [id number] 2.16.84 0.1.421390.3.579.2.593 1964 Unknown [id number] 2.16.8 40.1.196746.3.579.2.1286 1964 Unknown [id number] 2.16.840 .1.386999.3.579.2.1285 1964 Unknown [id number] 2.16.8 40.1.624766.3.579.2.1285 1964 Unknown [id number] 2.16.8 40.1.281047.3.579.2.1285 1964 Unknown [id number] 2.16.8 40.1.135681.3.579.2.1285 1964 Unknown [id number] 2.16.840 .1.371114.3.579.2.1286 1959 Self-pay [id number] 1959 Unknown [id number] 2.1 6.840.1.197333.19 1959 Unknown [id number] Unknown [id number] 2.16.8 40.1.813219.3.579.2.531 Social History Date Type Detail Facility Unknown if ever smoked [employer] Other Start: 10-17-2020 End: 12-03-2020 Sex Assigned At [facility] [employer] Other Start: 10-26-2013 End: 10-08-2022 Tobacco smoking status NHIS Never smoked tobacco [facility] Start: 10-26-2013 End: 10-08-2022 Tobacco use and exposure Smokeless tobacco non-user [facility] Start: 12-03-2020 End: 05-21-2022 Alcohol intake Current non-drinker of alcohol (finding) [facility] Start: 1965 Sex Assigned At Not on file [facility] History of tobacco use Passive smoker [facility] Start: 12-30-2020 End: 05-25-2022 Exposure to SARS-CoV-2 (event) Not sure [facility] Start: 10-17-2020 End: 12-03-2020 History of Social function [facility] National Score (1-10 0), lower number is lower risk Not on file [facility] Start: 08-23-2023 Alcohol intake Ex-drinker (finding) [facility] Has the [employer], or [employer] threatened to shut off services in your home in past 12Mo No [facility] Are you now , , , , never or living with a partner? [facility] How often to you hav e a drink containing alcohol? Never [facility] How hard is it for y ou to pay for the very basics like food, housing, medical care, and heating Hard [facility] Do you feel stress - tense, restless, nervous, or anxious, or unable to sleep at night because your mind is troubled all the time - these days [OSQ] Rather much [facility] Clinical Notes 06-02-2021 to 11-17-2023 Anna [facility] Monge, [facility] 11/17/2023 2:00 PM EDTTelephone Encounter - Con Gleason, [facility] - 11/11/2023 10:27 AM ESTTelephone Encounter - Con Gleason, [facility] - 11/11/2023 10:27 AM EST Note Date & Type Note Facility 11-17-2023 History of Present illness Narrative [address] [place] [address] Patient: Kaya Schilling Date of : 1965 [...] - FAMILY MED[facility] [address] [place] [address] Patient Location: Patient's home Video Visit Consent [...] that there are some limitations compared to hugs-za-pfms evaluations. The patient consented to the presence of additional virtual and/or in-person participants. We elected to proceed. Problem List Items Addressed This Visit Endocrine Type 2 diabetes mellitus without complication, without long-term current use of insulin ([facility]) Hyperparathyroidism ([facility]) Other Visit Diagnoses Diarrhea of presumed infectious [...] Medical History: Diagnosis Date Bipolar 1 disorder ([facility]) Elevated parathyroid hormone Empty sella ([facility]) Female bladder prolapse Hepatitis C Hypercalcemia Hypothyroidism Manic depression ([facility]) Migraine Scoliosis Past Surgical History: Procedure Laterality [...] complication, without long-term current use of insulin ([facility]) Hyperparathyroidism ([facility]) Other orders - promethazine (PHENERGAN) 12.5 mg tablet; Take 1 tablet (12.5 mg total) by mouth every 8 (eight) hours as needed for nausea or vomiting for up to 5 days. Follow-up: Since her diarrhea symptoms have been persistent for the last week we will check stool pathogen panel and C diff. she agrees to go to [facility] for this. Risks of Phenergan including [...] to tolerate PO intake she should call [phone] 20min DAHLIA JANE APRN-CNP 11/20/23 0914 documented in this encounter [facility] 11-11-2023 Miscellaneous Notes Pt calls states she has that new virus called Norovirus. She is feeling better. Told her to try the brat diet documented in this encounter [facility] 11-11-2023 Telephone encounter Note Pt calls states she has that new virus called Norovirus. She is feeling better. Told her to try the brat diet [facility] 11-05-2023 Miscellaneous Notes Pt called and just wanted to let us know she is sick and I told her we are closed and please if drink plenty of water and if she gets worse please go to Local hospital to be checked documented in this encounter [facility] 11-05-2023 Telephone encounter Note Pt called and just wanted to let us know she is sick and I told her we are closed and please if drink plenty of water and if she gets worse please go to Local hospital to be checked [facility] 07-03-2022 Miscellaneous Notes per answering service, pt cx today rv and tx appointments due to being up all night sick will call back to reschedule. documented in this encounter [facility] 06-04-2022 Miscellaneous Notes Patient left a message on my voicemail today to get this appointment scheduled. Call placed to patient, no answer. Left message on voicemail to call back to reschedule. Roberta Vaughan Per Answering Service message patient called requested to cancel this appointment and stated she will call us back to reschedule. Hanna Perdomo Pss documented in this encounter [facility] 05-29-2022 Miscellaneous Notes Patient is listed on the First Time Treatment List for a non-oncology treatment. No psychosocial assessment is indicated. CHUCHO Francis documented in this encounter [facility] 05-28-2022 Miscellaneous Notes Called [facility] Saad spoke with Luisa. She states they have received this referral and their nursing program coordinator will be calling patient soon to schedule. Hanna Perdomo Pss Records faxed to [facility]. Appointments moved to next (06/04). Called pt, no answer, LMOV. Theresa please send to GI facesheet in [...] appointment. On provider and treatment schedule. Yvonne Crump RN LM to CB Yvonne Crump RN ----- Message from Sharron Keenan RN [...] evaluate as well,. documented in this encounter [facility] 05-26-2022 Miscellaneous Notes Patient scheduled to see you on 06/04/22 for follow up with labs. Please add lab orders. Thanks. Amirah Koch MA documented in this encounter [facility] 05-22-2022 Note HNO ID: [id number] Author: Karel Sam MD Service: ? Author Type: Physician Type: Progress Notes Filed: 05/22/2022 11:57 AM Note Text: PATIENT NAME: Kaya Schilling CLINIC NO.: [id number] ATTENDING PHYSICIAN: Karel Sam MD DATE OF [...] Arthritis Bipolar 1 disorder (HCC) Broken jaw (HCC) no surgery COPD (chronic obstructive pulmonary disease) (HCC) Diabetes mellitus (adult onset) ([facility]) History of broken nose had septoplasty Manic depression ([facility]) Dr. Rees Neck pain Pneumonia [...] are intact. Breast: (more content not included)... [facility] 05-22-2022 History of Present illness Narrative PATIENT NAME: Kaya Hart [facility] NO.: [id number] ATTENDING PHYSICIAN: Karel Sam MD DATE OF SERVICE: May 22, [address] Kostas Steward MD thank you for referring . Kaya Schilling for an opinion regarding Anemia. [...] Arthritis Bipolar 1 disorder (HCC) Broken jaw (HCC) no surgery COPD (chronic obstructive pulmonary disease) (HCC) Diabetes mellitus (adult onset) ([facility]) History of broken nose had septoplasty Manic depression ([facility]) Dr. Rees Neck pain Pneumonia [...] 11/03/2013 1.21 1.00 - 4.00 k/uL Final Mellette% Date Value Ref Range Status 11/03/2013 7.7 % Final Abs Mellette Date Value Ref Range Status 11/03/2013 0.36 0.00 - 0.86 k/uL Final Abs Eosin Date Value Ref Range Status 11/03/2013 0.12 0.00 - 0.45 k/uL Final Baso% Date Value Ref Range Status 11/03/2013 0.9 % Final Abs Baso Date Value Ref Range Status 11/03/2013 0.04 0.00 - 0.10 k/uL Final Comment: Performed at [facility] , [address] [place] [address] PATH: IMAGING: ASSESSMENT AND PLAN: Kaya Schilling [...] below. Karel Sam M.D. Hematology/Medical Oncology [facility] [phone] CC: Kostas Steward DO I spent a total of 40 minutes on the date of the service which included preparing to see the patient, xvas-ni-ihja patient care, completing clinical documentation, obtaining and/or reviewing separately obtained history, performing a medically appropriate examination, counseling and educating the patient/family/caregiver, and ordering medications, tests, or procedures. documented in this encounter [facility] 04-23-2022 Evaluation note Encounter Date Diagnosis Assessment Notes Apr, Irritable bowel syndrome with constipation (ICD-10 - K58.1) [employer] Other 12-13-2021 Evaluation note* Encounter Date Diagnosis Assessment Notes Treatment Notes Treatment Clinical Notes Aug, Irritable bowel syndrome with constipation (ICD-10 - K58.1) [facility] Other 11-17-2021 Evaluation note* Encounter Date Diagnosis Assessment Notes Treatment Notes Treatment Clinical Notes Jul, Redundant colon (ICD-10 - Q43.8) Jul, Irritable bowel syndrome with constipation (ICD-10 - K58.1) Increase lactuose to 60cc bid Colonoscopy Jul, Elevated alkaline phosphatase level (ICD-10 - R74.8) Jul, History of hepatitis C (ICD-10 - Z86.19) Jul, Diabetes (ICD-10 - E11.9) [facility] [employer] Other 09-27-2021 Evaluation note* Encounter Date Diagnosis [...] mellitu s) (ICD-10 - E11.9) She has vob-wvrtvpm-uryjajtft type 2 diabetes mellitus currently takes oral [...] avoid any calcium and vitamin D supplement. [employer] Other Evaluation noteNo InformationN[employer] Other Evaluation note* Diagnosis Anemia, normocytic normochromic- Primary Anemia, unspecified [facility]* Diagnosis Iron deficiency anemia due to chronic blood loss Iron deficiency anemia secondary to blood loss (chronic) Vitamin B12 deficiency anemia due to selective vitamin B12 malabsorption with proteinuria Other vitamin B12 deficiency anemia [facility]* Diagnosis Anemia, normocytic normochromic- Primary Anemia, unspecified [facility]* Diagnosis Disorder of airway Unspecified disease of respiratory system Airway obstruction, anatomic Other diseases of respiratory system, not elsewhere classified [facility]* Diagnosis Acquired hypothyroidism Unspecified hypothyroidism [facility]* Diagnosis Type 2 diabetes mellitus without complication, without long-term current use of insulin ([facility]) documented in this encounter [facility]* Diagnosis Diarrhea of presumed infectious origin- Primary Weakness Other malaise and fatigue Type 2 diabetes mellitus without complication, without long-term current use of insulin ([facility]) Hyperparathyroidism ([facility]) Hyperparathyroidism, unspecified documented in this encounter [facility] SystemHistory general Narrative - Reported* Type Description [...] Surgical History LAPAROSCOPY Hospitalization History SEE ABOVE [employer] Other InstructionsNot on filedocumented in this encounter [facility] System[facility]ructionsNot on filedocumented in this encounter [facility] SystemInstructionsNot on filedocumented in this encounter [facility])* Diagnostic Procedure Only (Routine) - Closed Specialty Diagnoses / Procedures Referred By Contac t Referred To Contact CT IMAGING Diagnoses Disorder of airway Airway obstruction, anatomic Procedures CT NECK SOFT TISSUE WO IVCON CT SCAN OF NECK TISSUE Trev Shah MD [address] [place] [address] [place] [address] Referral ID Status Reason Start Date Expiration Date V isits Requested Visits Authorized [id number] Closed Auto-Generat ed Referral Patient Cleared - Admin/Chairm an/Director advise to proceed or did not respond 01/21/2021 03/22/2021 3 3 [facility] for referral (narrative)* Consultation (Routine) - Pending Review Specialty Diagnoses / Procedures Referred By Graham t Referred To Contact Home Health Services Anna Marie Aguilera, HOSTESS CASHIER-BEET TOPPER [address] [place] [id number] [place] [phone] Referral ID Status Reason Start Date Expiration Date Visits Requested Visits Authorized [id number] Pending Review Specialty Services Required 11/18/2023 11/17/2024 1 1 [facility] N[facility]* Diagnostic Procedure Only (Routine) - Closed Specialty Diagnoses / Procedures Referred By Contac t Referred To Contact CT IMAGING Diagnoses Disorder of airway Airway obstruction, anatomic Procedures CT NECK SOFT TISSUE WO IVCON CT SCAN OF NECK TISSUE Trev Shah MD [address] [place] [address] [place] [address] Referral ID Status Reason Start Date Expiration Date V isits Requested Visits Authorized [id number] Closed Auto-Generat ed Referral Patient Cleared - Admin/Chairm an/Director advise to proceed or did not respond 01/21/2021 03/22/2021 3 3 [facility] Summary Purpose Family History No Family History [...] and content) DATE CREATED AUTHOR [facility]/27/2021 [facility] DATE CREATED AUTHOR AUTHOR'S ORGANIZ ATION 07/09/2022 [facility] DATE CREATED AUTHOR AUTHOR'S ORGANIZ ATION 09/03/2022 [facility] DATE CREATED AUTHOR AUTHOR'S ORGANIZ ATION 01/20/2023 [facility] DATE CREATED AUTHOR AUTHOR'S ORGANIZ ATION 01/24/2024 [facility] DATE CREATED AUTHOR AUTHOR'S ORGANIZ ATION 02/03/2024 [facility] DATE CREATED AUTHOR AUTHOR'S ORGANIZ ATION 02/08/2024 [facility] REASON FOR VISIT (unrecogniz ed [...] or prosecute any alcohol or drug abuse patient.[facility] Health[facility] the event this information is protected by the Federal Confidentiality of Alcohol and Drug Abuse Patient Records regulations: The Federal rules restrict any use of the information to criminally investigate or prosecute any alcohol or drug abuse patient.[facility] HealthIn the event this information is protected by the Federal Confidentiality of Alcohol and Drug Abuse Patient Records regulations: The Federal rules restrict any use of the information to criminally investigate or prosecute any alcohol or drug abuse patient.[facility] HealthIn the event this information is protected by the Federal Confidentiality of Alcohol and Drug Abuse Patient Records regulations: The Federal rules restrict any use of the information to criminally investigate or prosecute any alcohol or drug abuse patient.[facility] HealthIn the event this information is protected by the Federal Confidentiality of Alcohol and Drug Abuse Patient Records regulations: The Federal rules restrict any use of the information to criminally investigate or prosecute any alcohol or drug abuse patient.[facility] HealthIn the event this information is protected by the Federal Confidentiality of Alcohol and Drug Abuse Patient Records regulations: The Federal rules restrict any use of the information to criminally investigate or prosecute any alcohol or drug abuse patient.[facility] HealthIn the event this information is protected by the Federal Confidentiality of Alcohol and Drug Abuse Patient Records regulations: The Federal rules restrict any use of the information to criminally investigate or prosecute any alcohol or drug abuse patient.[facility] HealthIn the event this information is protected by the Federal Confidentiality of Alcohol and Drug Abuse Patient Records regulations: The Federal rules restrict any use of the information to criminally investigate or prosecute any alcohol or drug abuse patient.[facility] Care Teams (unrecognized sec tion and content) Cfd Engineer Relationship Specialty Start Date End Date Kostas Steward, [address] [place] [address] PCP - General Family Practice 05/14/22 Cfd Engineer Relationship Specialty Start Date End Date Kostas Steward, DO [address] [place] [address] PCP - General Family Practice 05/14/22 Cfd Engineer Relationship Specialty Start Date End Date Kostas Steward, DO [address] [place] [address] PCP - General Family Medicine 05/14/22 Cfd Engineer Relationship Specialty Start Date End Date Kostas Steward, DO [address] [place] [address] PCP - General Family Medicine 05/14/22 Cfd Engineer Relationship Specialty Start Date End Date Kostas Steward, DO [address] [place] [address] PCP - General Family Medicine 05/14/22 Cfd Engineer Relationship Specialty Start Date End Date Kostas Steward, DO [address] [place] [address] PCP - General Family Medicine 05/14/22 Cfd Engineer Relationship Specialty Start Date End Date Kostas Steward, DO [address] [place] [address] PCP - General Family Medicine 05/14/22 Cfd Engineer Relationship Specialty Start Date End Date Conor Herrera PCP - General Family Medicine 10/25/13 05/13/22 Cfd Engineer Relationship Specialty Start Date End Date Kostas Steward DO [address] [place] [address] PCP - General Family Medicine 05/28/22 Cfd Engineer Relationship Specialty Start Date End Date Kostas Steward DO [address], [place] [address] PCP - General Family Medicine 05/28/22 Cfd Engineer Relationship Specialty Start Date End Date Kostas Steward DO [address], [place] [address] PCP - General Family Medicine 05/28/22 FOR [...] BE BASED ON THE PRIMARY CLINICAL RECORDS. [employer] [facility]. provides no warranty or guarantee of the accuracy or completeness of information in this document.
--- NOTE | 2024-02-13 14:38 | ECG_ITS ---
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
[2024-02-13 15:12] VITALS: BP 159/93; PULSE 104; O2SAT 100
[2024-02-13 15:20] VITALS: PULSE 96; O2SAT 100
[2024-02-13 15:28] LABS: PCO2 VBG 33.9 mmHg (40.0-52.0); pH VBG 7.392 (7.330-7.430)
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
[2024-02-13 15:30] VITALS: BP 175/88; PULSE 96; O2SAT 99
[2024-02-13 15:30] LABS: Basophils Percent Auto 0.5 % (0.2-2.0); Eosinophils Absolute Auto 0.1 10^3/uL (0.0-0.7); Eosinophils Percent Auto 1.6 % (0.9-7.0); Hematocrit 26.9 % (36.0-48.0); Hemoglobin 9.5 g/dL (12.0-16.0); Immature Granulocytes Abs Auto 0.02 10^3/uL (0.00-0.03); Immature Granulocytes Pct Auto 0.3 % (0.0-0.5); Lymphocytes Absolute Auto 1.2 10^3/uL (1.2-3.8); Lymphocytes Percent Auto 19.4 % (20.5-60.0); Mean Corpuscular HGB Conc 35.3 g/dL (29.9-35.2); Mean Corpuscular Hemoglobin 38.8 pg (26.7-34.0); Monocytes Absolute Auto 0.4 10^3/uL (0.3-0.8); Monocytes Percent Auto 5.8 % (1.7-12.0); Neutrophils Absolute Auto 4.6 10^3/uL (1.4-6.5); Neutrophils Percent Auto 72.4 % (43.0-75.0); Platelet Count 316 10^3/uL (150-450); Red Blood Count 2.45 10^6/uL (4.20-5.40); Red Cell Distribution Width 17.1 % (11.0-15.0); White Blood Count 6.4 10^3/uL (4.0-11.0)
[2024-02-13 15:39] LABS: Mean Corpuscular Volume 109.8 fL (81.0-99.0)
[2024-02-13 15:40] VITALS: PULSE 96; O2SAT 98
[2024-02-13] MEDS: ORPHENADRINE 60 MG/ 2 ML VIAL IV (15:42)
[2024-02-13] MEDS: FENTANYL CITRATE/PF 100 MCG/2 ML VIAL 50 MCG IV (15:42)
[2024-02-13] MEDS: 0.9 % SODIUM CHLORIDE 1,000 ML 999 ML IV (15:42)
[2024-02-13] MEDS: ONDANSETRON PF 4 MG/2 ML VIAL IV (15:42)
[2024-02-13 15:50] LABS: INR 0.96; Prothrombin Time 10.2 sec (9.0-11.6)
[2024-02-13 15:52] LABS: Alanine Aminotransferase 16 U/L (14-59); Albumin Globulin Ratio 0.9; Albumin Level 3.5 g/dL (3.4-5.0); Alkaline Phosphatase 125 U/L (46-116); Anion Gap 16.6; Aspartate Amino Transferase 14 U/L (15-37); BUN Creatinine Ratio 5.7; Bilirubin Total 0.8 mg/dL (0.2-1.0); Carbon Dioxide 22.3 mmol/L (21.0-32.0); Chloride 100 mmol/L (98-107); Estimated GFR (African America 46 (>=60); Estimated GFR (Non-African Ame 38 (>=60); Globulin 3.9 g/dL; Glucose 191 mg/dL (74-106); Sodium 136 mmol/L (136-145); Total Protein 7.4 g/dL (6.4-8.2); Troponin I High Sensitivity 20.4 pg/mL (4.0-51.3)
[2024-02-13 15:58] LABS: PROCALCITONIN 0.13 ng/mL (0.00-0.50)
[2024-02-13 16:00] LABS: D Dimer 3.82 mg/L FEU (<=0.59)
[2024-02-13] MEDS: POTASSIUM CHLORIDE 10 MEQ ER TABLET 40 MEQ PO (16:00)
--- NOTE | 2024-02-13 16:00 | CT_ITS ---
[address] [address] Patient Name: KAYA SCHILLING MRN: [id number] date: 1965 Sex: F Assigned Patient Location: ER Current Patient Location: ER Accession/Order Number: [id number] Exam Date: 02/13/2024 16:45 Report Date: 02/13/2024 17:50 At the request of: TENA NGUYEN Procedure: CT angio chest EXAM: CT angio chest HISTORY: Pulmonary embolism COMPARISON: None. TECHNIQUE: CT chest with intravenous contrast was performed with timing for the evaluation for pulmonary arteries. Multiplanar reformats were performed. MIP (maximum intensity projection) images or 3D post processing was performed. Dose reduction techniques were achieved by using automated exposure control and/or adjustment of mA and/or kV according to patient size and/or use of iterative reconstruction technique. FINDINGS: Lungs: No consolidation, pneumothorax, or effusion. No suspicious pulmonary nodule. Airways: Normal. Mediastinum: No adenopathy. Aorta: No aneurysm. Cardiac: Normal size. No pericardial effusion. Pulmonary vasculature: Filling defect in segmental branches of the left upper lobe and interlobar and segmental branches of right middle and lower lobes. Normal morphology. Bones: No acute bony abnormality. Axilla: No adenopathy. Thyroid gland: No abnormality demonstrated on provided imaging. Soft tissues: Unremarkable. Upper abdomen: There appears intraluminal mass measuring 2.6 x 5.6 cm along lesser curvature, suspicious for gastric cancer. Multiple gastrohepatic ligament lymphadenopathy. Additional findings: None. CT/CT angio chest IMPRESSION: Acute pulmonary embolism involving segmental branches of the left upper lobe and interlobar and segmental branches of right middle and lower lobes. No CT evidence of heart strain. 2.6 x 5.6 cm enhancing intraluminal mass along lesser curvature, suspicious for gastric cancer. Gastrohepatic ligament lymphadenopathy, representing metastasis. Critical results were NOTIFIED by TELEPHONE BY Dr. Alis Brooks MD to mariama win At 02/13/2024 5:39 PM EDT. Electronically authenticated by: ALIS BROOKS Date: 02/13/2024 17:50
[2024-02-13 16:01] LABS: Lactate/Lactic Acid 4.4 mmol/L (0.4-2.0); Potassium 2.9 mmol/L (3.5-5.1)
[2024-02-13 16:29] LABS: Influenza Virus A Antigen Negative; Influenza Virus B Antigen Negative; Internal Control Within Normal Limits
[2024-02-13 16:30] LABS: Internal Control Within Normal Limits; SARS-CoV-2 Ag NEGATIVE (NEGATIVE)
[2024-02-13 16:56] VITALS: BP 190/92
[2024-02-13] MEDS: LABETALOL HCL 20 MG/4 ML SYRINGE IVP (17:04)
[2024-02-13 18:13] LABS: Bilirubin Urine NEGATIVE (NEGATIVE); Blood Urine NEGATIVE (NEGATIVE); Clarity Urine CLEAR (CLEAR); Color Urine LT. YELLOW (YELLOW); Glucose Urine UA NEGATIVE (NEGATIVE); Ketones Urine NEGATIVE (NEGATIVE); Leukocyte Esterase Urine NEGATIVE (NEGATIVE); Nitrite Urine NEGATIVE (NEGATIVE); Protein Urine NEGATIVE (NEG/TRACE); Specific Gravity Urine <=1.005 (1.005-1.025); Urine Microscopic Indicated NO; Urobilinogen Urine 0.2 EU/dL (0.2-1.0)
[2024-02-13 18:30] LABS: Lactate/Lactic Acid 2.5 mmol/L (0.4-2.0)
[2024-02-13] MEDS: ENOXAPARIN SODIUM 60 MG/0.6 ML SYRINGE 50 MG SUBQ (18:52)
== END 2024-02-13 19:10 | disposition left against medical advice (07) ==
PROVIDERS: Physician Assistant; Emergency Provider Emergency Medicine; PCP Family Medicine
DX: I26.99 Other pulmonary embolism without acute cor pulmonale (principal); K31.9 Disease of stomach and duodenum, unspecified; Z53.29 Procedure and treatment not carried out because of patient's decision for other reasons; I10 Essential (primary) hypertension; N18.9 Chronic kidney disease, unspecified; R79.89 Other specified abnormal findings of blood chemistry; R59.1 Generalized enlarged lymph nodes
CPT/HCPCS: 36415; 71275; 80053; 81003; 82800; 83605; 83880; 84145; 84484; 85025; 85378; 85610; 87040; 87804; 87811; 93005; 96361; 96372; 96374; 96375; 99285; Q9967

== ENCOUNTER 2024-02-15 17:13 | Emergency (ER) | payer OTHER, SELFPAY ==
[2024-02-15] VITALS (19 sets, daily range): BP systolic 151–181; BP diastolic 92–104; PULSE 94–110; TEMP 37.3; O2SAT 93–100; BMI 19.6
--- NOTE | 2024-02-15 18:50 | XR_ITS ---
The [address] [address] Patient Name: KAYA SCHILLING MRN: [id number] date: 1965 Sex: F Assigned Patient Location: ER Current Patient Location: ED.MAIN Accession/Order Number: [id number] Exam Date: 02/15/2024 19:03 Report Date: 02/15/2024 19:14 At the request of: DHIRAJ PEREZ Procedure: XR chest 1V EXAM: XR chest 1V at 1856 hours HISTORY: Shortness of breath COMPARISON: 03/05/2023 TECHNIQUE: AP upright portable chest x-ray FINDINGS: The heart is not enlarged and the vasculature is not distended. No acute infiltrate, effusion or pneumothorax is identified. The osseous structures are grossly intact. XR/XR chest 1V IMPRESSION: No acute infiltrate or evidence of cardiac decompensation. The overall appearance of the chest is essentially unchanged. Electronically authenticated by: MT GAMEZ Date: 02/15/2024 19:14
--- NOTE | 2024-02-15 18:50 | ECG_ITS ---
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
[2024-02-15 18:58] LABS: Basophils Percent Auto 0.2 % (0.2-2.0); Eosinophils Absolute Auto 0.1 10^3/uL (0.0-0.7); Eosinophils Percent Auto 1.2 % (0.9-7.0); Hematocrit 27.5 % (36.0-48.0); Hemoglobin 9.6 g/dL (12.0-16.0); Immature Granulocytes Abs Auto 0.01 10^3/uL (0.00-0.03); Immature Granulocytes Pct Auto 0.2 % (0.0-0.5); Lymphocytes Absolute Auto 1.1 10^3/uL (1.2-3.8); Lymphocytes Percent Auto 18.1 % (20.5-60.0); Mean Corpuscular HGB Conc 34.9 g/dL (29.9-35.2); Mean Corpuscular Hemoglobin 38.7 pg (26.7-34.0); Mean Corpuscular Volume 110.9 fL (81.0-99.0); Mean Platelet Volume 9.4 fL (9.5-13.5); Monocytes Absolute Auto 0.3 10^3/uL (0.3-0.8); Monocytes Percent Auto 5.9 % (1.7-12.0); Neutrophils Absolute Auto 4.3 10^3/uL (1.4-6.5); Neutrophils Percent Auto 74.4 % (43.0-75.0); Platelet Count 373 10^3/uL (150-450); Red Blood Count 2.48 10^6/uL (4.20-5.40); Red Cell Distribution Width 16.4 % (11.0-15.0); White Blood Count 5.8 10^3/uL (4.0-11.0)
[2024-02-15] MEDS: ALBUTEROL SULFATE 2.5 MG/3 ML VIAL NEB IH (19:02)
[2024-02-15 19:06] LABS: INR 1.05; Partial Thromboplastin Time 27.2 sec (22.3-36.2); Prothrombin Time 11.1 sec (9.0-11.6)
[2024-02-15 19:10] LABS: Alanine Aminotransferase 14 U/L (14-59); Albumin Globulin Ratio 0.9; Albumin Level 3.7 g/dL (3.4-5.0); Alkaline Phosphatase 128 U/L (46-116); Anion Gap 12.9; Aspartate Amino Transferase 31 U/L (15-37); BUN Creatinine Ratio 10.7; Calcium 11.7 mg/dL (8.5-10.1); Chloride 99 mmol/L (98-107); Estimated GFR (African America 50 (>=60); Estimated GFR (Non-African Ame 41 (>=60); Globulin 4.2 g/dL; Glucose 191 mg/dL (74-106); Potassium 3.9 mmol/L (3.5-5.1); Sodium 132 mmol/L (136-145); Total Protein 7.9 g/dL (6.4-8.2)
[2024-02-15 19:17] LABS: Troponin I High Sensitivity 16.5 pg/mL (4.0-51.3)
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
[2024-02-15] MEDS: HYDROCODONE/ACET 5-325 MG TABLET 2 TAB PO (20:02)
[2024-02-15] MEDS: ONDANSETRON 4 MG RAPDIS TABLET SL (20:04)
== END 2024-02-15 20:13 | disposition home or self-care (01) ==
PROVIDERS: Emergency Medicine; Emergency Provider Emergency Medicine; PCP Family Medicine
DX: I26.99 Other pulmonary embolism without acute cor pulmonale (principal); J44.9 Chronic obstructive pulmonary disease, unspecified; Z79.01 Long term (current) use of anticoagulants; K31.9 Disease of stomach and duodenum, unspecified; R07.89 Other chest pain
CPT/HCPCS: 36415; 71045; 80053; 83880; 84484; 85025; 85610; 85730; 93005; 94640; 99285; Q0162

== ENCOUNTER 2024-03-21 07:43 | Outpatient (RCR) | payer OTHER, SELFPAY ==
[2024-03-21 14:51] LABS: Basophils Percent Auto 0.4 % (0.2-2.0); Eosinophils Absolute Auto 0.1 10^3/uL (0.0-0.7); Eosinophils Percent Auto 1.2 % (0.9-7.0); Hemoglobin 8.3 g/dL (12.0-16.0); Immature Granulocytes Abs Auto 0.01 10^3/uL (0.00-0.03); Immature Granulocytes Pct Auto 0.2 % (0.0-0.5); Lymphocytes Absolute Auto 1.1 10^3/uL (1.2-3.8); Lymphocytes Percent Auto 22.6 % (20.5-60.0); Mean Corpuscular HGB Conc 34.6 g/dL (29.9-35.2); Mean Corpuscular Hemoglobin 39.9 pg (26.7-34.0); Mean Corpuscular Volume 115.4 fL (81.0-99.0); Mean Platelet Volume 9.4 fL (9.5-13.5); Monocytes Absolute Auto 0.3 10^3/uL (0.3-0.8); Monocytes Percent Auto 5.5 % (1.7-12.0); Neutrophils Absolute Auto 3.4 10^3/uL (1.4-6.5); Neutrophils Percent Auto 70.1 % (43.0-75.0); Platelet Count 293 10^3/uL (150-450); Red Cell Distribution Width 17.4 % (11.0-15.0); White Blood Count 4.9 10^3/uL (4.0-11.0)
[2024-03-21 15:12] LABS: Red Blood Count 2.08 10^6/uL (4.20-5.40)
[2024-03-21 16:00] LABS: Alanine Aminotransferase 12 U/L (14-59); Albumin Globulin Ratio 0.8; Albumin Level 3.2 g/dL (3.4-5.0); Alkaline Phosphatase 114 U/L (46-116); Anion Gap 13.1; Aspartate Amino Transferase 20 U/L (15-37); BUN Creatinine Ratio 16.9; Bilirubin Total 0.6 mg/dL (0.2-1.0); Calcium 10.5 mg/dL (8.5-10.1); Carbon Dioxide 23.4 mmol/L (21.0-32.0); Chloride 101 mmol/L (98-107); Estimated GFR (African America 53 (>=60); Estimated GFR (Non-African Ame 44 (>=60); Globulin 4.1 g/dL; Glucose 136 mg/dL (74-106); Potassium 3.5 mmol/L (3.5-5.1); Sodium 134 mmol/L (136-145); Total Protein 7.3 g/dL (6.4-8.2)
[2024-03-21 16:16] LABS: Percent Iron Saturation 11.8 %
[2024-03-22 08:12] LABS: CEA 1.8 ng/mL (0.0-4.7)
== END 2024-04-05 23:59 | disposition home or self-care (01) ==
LOC: HEMC 07:43
PROVIDERS: PCP Family Medicine; Visit Provider Internal Medicine Hematology & Oncology
DX: C16.0 Malignant neoplasm of cardia (principal); D64.9 Anemia, unspecified; Z87.891 Personal history of nicotine dependence
CPT/HCPCS: 36415; 80053; 82378; 82728; 83540; 83550; 85025; G0463

== ENCOUNTER 2024-04-08 19:09 | Emergency (ER) | payer OTHER, SELFPAY ==
[2024-04-08 19:15] VITALS: BP 151/94; PULSE 100; TEMP 36.4; O2SAT 100; BMI 18.3
--- OUTSIDE RECORDS SUMMARY | 2024-04-08 19:21 | XMS_ITS | CCD ---
Author Organization [facility]Sym[facility] Care Team Providers Care Napper Fixer Name Role Phone Brynn Holliday Unavailable Neo Calhoun Unavailable Kostas Steward DO Primary Care Provider Kostas Steward DO Primary Care Provider PROVIDER, UNKNOWN Attending Unavailable PROVIDER, UNKNOWN Admitting Unavailable BIN, DR KOSTAS Hough Primary Care Unavailable ROYAL RAMIRES Consulting Unavailable ROYAL RAMIRES Attending Unavailable ROYAL RAMIRES Admitting Unavailable BIN, DR KOSTAS Hough Primary Care Unavailable ARTURO, DR KARINA Hart Attending Unavailable ARTURO, DR KARINA Hart Admitting Unavailable KLINGERSTOWN, DR JUSTINA Cardoso Consulting Unavailable ARTURO, DR KARINA Hart Consulting Unavailable PATRICK .IMAN Consulting Unavailreed STEWARD, DR KOSTAS Hough Primary [...] Avendano Consulting Unavailable ATTILA RAND Consulting Unavailable JIMI Browne, DR OLIVEIRA Attending Unavailable BIN, DR KOSTAS Hough Primary Care Unavailable DR TEE CASAS Consulting Unavailable JIMI Browne, DR OLIVEIRA Admitting Unavailable BIN, DR KOSTAS Hough Primary Care Unavailable JACKIE VINCENT Consulting Unavailable JACKIE VINCENT Attending Unavailable JACKIE VINCENT Admitting Unavailable FURLONG, DR KOSTAS Hough Primary [...] Primary Care Unavailable NIKOLAI, ROYAL Consulting Unavailable NIKOLAI, ROYAL Admitting Unavailable NIKOLAI, ROYAL Attending Unavailable FURLONG, DR KOSTAS Hough Primary Care Unavailable FURLONG, DR KOSTAS Hough Consulting Unavailable FURLONG, DR KOSTAS Hough Attending Unavailable FURLONG, DR KOSTAS Hough Admitting Unavailable FURLONG, DR KOSTAS Hough Primary Care Unavailable FURLONG, DR KOSTAS Hough Consulting Unavailable FURLONG, DR KOSTAS Hough Attending Unavailable FURLONG, DR KOSTAS Hough Admitting Unavailable Conor Herrera Primary Care Provider Unavailabl e FurKostas echavarria DO Primary Care Provider Kostas Steward DO Primary Care Provider KOSTAS STEWARD Referring Unavailable APRILLOKOSTAS NAVAS Primary Care Unavailable CONG MONTANO Admitting Unavailable CONG MONTANO Attending Unavailable KOSTAS STEWARD Primary Care Unavailable CONG MONTANO Attending Unavailable CONG MONTANO Referring Unavailable FURLONGKOSTAS Primary Care Unavailable MINE BENTON Attending Unavailable APRILLONGKOSTAS Primary Care Unavailable Brandt VAN, Belen Unavailable Dajuan Whaley Attending Unavailab Dajuan Condon Admitting Unavailab Shaikh Fox Primary Care Unavailable ANNA MARIE MONGE Attending Unavailable KOSTAS STEWARD Referring Unavailable FURLONGKOSTAS Primary Care Unavailable FURLOKOSTAS NAVAS Attending Unavailable FURLOKOSTAS NAVAS Referring Unavailable FURLONG, KOSTAS Hough Primary Care Unavailable FURLONG, KOSTAS Hough Attending Unavailable FURLONG, KOSTAS G Referring Unavailable FURLONG, KOSTAS G Primary Care Unavailable FURLONG, KOSTAS G Attending Unavailable FURLONG, KOSTAS G Referring Unavailable FURLONG, KOSTAS G Primary Care Unavailable FURLONG, KOSTAS G Referring Unavailable FURLONG, KOSTAS G Primary Care Unavailable FURLONG, KOSTAS G Referring Unavailable FURLONG, KOSTAS G Primary Care Unavailable LUISA ABDULLAHI Attending Unavailable FURLONG, KOSTAS G Referring Unavailable FURLONG, KOSTAS G Primary Care Unavailable FURLONG, KOSTAS G Attending Unavailable FURLONG, KOSTAS G Referring Unavailable FURLONG, KOSTAS G Primary Care Unavailable FURLONG, KOSTAS G Attending Unavailable FURLONG, KOSTAS G Referring Unavailable FURLONG, KOSTAS G Primary Care Unavailable CONG MONTANO Attending Unavailable FURLONG, KOSTAS G Referring Unavailable FURLONG, KOSTAS G Primary Care Unavailable FURLONG, KOSTAS G Attending Unavailable FURLONG, KOSTAS G Referring Unavailable FURLONG, KOSTAS G Primary Care Unavailable Erendira Aguillon RD Unavailable [phone] BETO VIVAR Referring Unavailable FURLONG, KOSTAS JARVIS Primary Care Unavailab BETO Kimball Referring Unavailable FURLONG, KOSTAS JARVIS Primary Care Unavailab le FURLONG, KOSTAS JARVIS Primary Care Unavailab ERENDIRA Echevarria Attending Unavailabl e FURLONG, KOSTAS JARVIS Primary Care Unavailab BETO Kimball Attending Unavailable FURLONG, KOSTAS JARVIS Referring Unavailab le FURLONG, KOSTAS JARVIS Primary Care Unavailab le FURLONG, KOSTAS G Referring Unavailable FURLONG, KOSTAS G Primary Care Unavailable FURLONG, KOSTAS G Referring Unavailable FURLONG, KOSTAS G Primary Care Unavailable BETO VIVAR Referring Unavailable FURLONG, KOSTAS G Primary Care Unavailable Jackie Art Unavailable Unavailable Allergies Allergy Classification Reported Allergen(s) Allergy Type Date of Onset Reaction(s) Facility Acetaminophen / oxyCODONE (1 source) Acetaminophen / oxyCODONE Drug Allergy 5 GI Upset [facility] Butorphanol (1 source) Butorphanol Drug Allergy 4 Vomiting [facility] (8 sources) Butorphanol; Translations: [Stadol] Drug Allergy 4 migraines, vomiting [facility] (20 sources) Acetaminophen / oxyCODONE; Translations: [OXYCODONE-ACETAM INOPHEN] Drug Allergy 5 GI Upset [facility] (20 sources) Butorphanol; Translations: [BUTORPHANOL TARTRATE] Drug Allergy 4 Vomiting [facility] (2 sources) Acetaminophen / oxyCODONE Drug Allergy [facility] (8 sources) vortioxetine; Translations: [[facility]ORTIOXETINE] [facility] Butorphanol Drug Allergy 1 [facility] Medications Current Medications Medication Drug Class(es) Dates Sig (Normalized) Sig (Original) ALPRAZolam 2 mg oral tablet (20 sources) Benzodiazepine Start: 10-18-2013 take 1 tablet by mouth three times daily as needed for anxiety ALPRAZOLAM 2 mg tablet Indications: anxiety Take 2 mg by mouth three times daily as needed. Indications: Anxiety 0 10/18/2013 Active take 1 tablet by mouth every [...] 1 tablet Orally Once a day Active apixaban 5 mg oral tablet (12 sources) Factor Xa Inhibitor Start: apixaban (ELIQUIS) 5 mg tab(s) Take 10 mg by mouth as directed. 0 02/14/2024 Active atorvastatin 40 mg oral tablet (20 sources) HMG-CoA Reductase Inhibitor Start: take 1 tablet by mouth once daily atorvastatin (LIPITOR) 40 mg tablet Take 40 mg by mouth once daily. 0 06/22/2022 Active baclofen 10 mg oral tablet (12 sources) gamma-Aminobutyric Acid-ergic Agonist Start: take 1 tablet by mouth every six hours as needed baclofen 10 mg tablet Take 10 mg by mouth every 6 hours as needed. 0 01/21/2024 Active Budesonide / formoterol (6 sources) Corticosteroid, beta2-Adrenergic Agonist budesonide-formotero L (SYMBICORT) 160-4.5 mcg/actuation inhaler Inhale 2 puffs every 12 (twelve) hours. 0 Active busPIRone hydrochloride 15 mg oral tablet (20 sources) Start: take 1 tablet by mouth twice daily busPIRone (BUSPAR) 15 mg tablet Take 15 mg by mouth twice daily. 0 05/13/2022 Active Comment on above: Take 15 mg by mouth twice daily. CAPLYTA 10.5 mg capsule (6 sources) Start: take 1 capsule by mouth in the morning CAPLYTA 10.5 mg capsule Take 1 capsule by mouth in the morning. 0 08/12/2022 Active cloNIDine hydrochloride 0.1 mg oral tablet (20 sources) Central alpha-2 Adrenergic Agonist take 1 tablet by mouth twice daily cloNIDine HCl (CATAPRES) 0.1 mg tablet Take 0.1 mg by mouth twice daily. 0 Active Comment on above: Take 0.1 mg by mouth twice daily. dapagliflozin 10 mg oral tablet (6 sources) Sodium-Glucose Cotransporter 2 Inhibitor Start: take 1 tablet by mouth in the morning dapagliflozin propanediol (FARXIGA) 10 mg tablet Indications: Type 2 diabetes mellitus with diabetic polyneuropathy, without long-term current use of insulin ([facility]) Take 1 tablet (10 mg total) by mouth in the morning. 30 tablet 5 03/18/2023 Active docusate sodium 100 mg oral capsule (12 sources) Start: docusate sodium (COLACE) 100 mg capsule Take 100 mg by mouth. 0 03/07/2024 Active empagliflozin 25 mg oral tablet (6 sources) Sodium-Glucose Cotransporter 2 Inhibitor take 1 tablet by mouth every twenty-four hours JARDIANCE 25 mg 1 TABLET orally ONCE A DAY Active enteric contrast (will be provided with radiology test) (2 sources) Start: End: enteric contrast (will be provided with radiology test) For CT Chest Abdomen W IVCON order Administer, As Directed One Time Only, via Oral, Rectal, both Oral and Rectal, Enteric Tube, Stoma or Indwelling Catheter, Enteric Contrast as designated per enteric contrast guidelines 1 Each 0 03/23/2024 03/24/2024 Active famotidine 20 mg oral tablet (6 sources) Histamine-2 Receptor Antagonist take 1 tablet by mouth every twenty-four hours gabapentin 100 mg oral capsule (13 sources) Anti-epileptic Agent Start: End: gabapentin (NEURONTIN) 100 mg capsule Take by mouth. 0 02/03/2022 Active Comment on above: TAKE 1 CAPSULE BY MO UTH 3 TIMES A DAY glipiZIDE 10 mg oral tablet (20 sources) Sulfonylurea Start: take 1 tablet by mouth in the [...] spray(s) nasal route three times daily Ipratropium [place] 0.06 % 2 sprays in each nostril Nasally Three times a day Active iv contrast (will be provided with radiology test) (2 sources) Start: 03-23-20 End: 03-24-20 iv contrast (will be provided with radiology test) CT Chest Abdomen-Inject, intravenously, once for 1 dose.No IV access, insert saline lock prior to the beginning of sedation, infusion, injection of imaging exam. Discontinue saline lock post exam. If Pt. has a central line or IVAD, may access for administration according to line specific nursing protocol. Once exam is complete flush line and de-access according to line specific nursing protocol in the CT contrast administration guidelines link. 1 Each 0 03/23/2024 03/24/2024 Active lactulose 667 mg/ml oral solution (20 sources) Osmotic Laxative Start: 03-30-20 lactulose (DUPHALAC, CONSTULOSE) 10 gram/15 mL solution [...] above: TAKE 60 ML TWICE ALEJANDRA LY 24 hr levomilnacipran 80 mg extended release oral capsule (20 sources) Serotonin and Norepinephrine Reuptake Inhibitor Start: 8 End: 2 take 1 tablet by mouth once daily FETZIMA 80 mg capsule,extende d release 24 hr Take 1 tablet by mouth daily. 0 02/21/2018 Active levomilnacipran ER (FETZIMA ER) 40 mg capsule Take by mouth once daily. 0 Active Comment on above: Take by mouth once d aily. TAKE ONE CAPSULE BY MOUTH DAILY AT APPROXIMATELY THE SAME TIME EACH DAY levothyroxine sodium 0.1 mg oral tablet (20 sources) l-Thyroxine Start: 02-14-20 End: 09-04-20 23 take 1 tablet by mouth once daily levothyroxine (SYNTHROID) 100 mcg tablet [...] capsule (20 sources) Start: 03-04-2018 take 1 tablet by mouth in the morning, then take 2 tablets by mouth in the evening lithium carbonate (ESKALITH) 300 mg capsule TAKE ONE TABLET BY MOUTH IN THE MORNING AND TWO TABLETS BY MOUTH IN THE EVENING 0 05/13/2022 Active Start: 10-18-2013 End: 05-22-2022 take 2 capsules by mouth twice daily in the evening LITHIUM CARBONATE 600 mg capsule Indications: Anemia , Iron deficiency Take 300 mg by mouth twice daily with meals. One in AM and Two in PM 0 10/18/2013 05/22/2022 Discontinued (Changing Therapy/Dosage Form) Noel Carbonat e 150 MG 1 capsule Orally 1 capsule in am, 2 capsules in pm Active Comment on above: Take 300 mg by mouth twice daily with meals. One in AM and Two in PM TAKE ONE TABLET BY M OUTH IN THE MORNING AND TWO TABLETS BY MOUTH IN THE EVENING loratadine 10 mg oral tablet (20 sources) Start: 04-09-20 22 take 1 tablet by mouth once daily loratadine (CLARITIN) 10 mg tablet Take 10 mg by mouth once daily. 0 04/09/2022 Active Comment on above: Take 10 mg by mouth once daily. losartan potassium 100 mg oral tablet (20 sources) Angiotensin 2 Receptor Arturo Start: 05-10-20 22 take 1 tablet by mouth once daily losartan (COZAAR) 100 mg tablet [...] 10-25-19 24 take 1 tablet by mouth twice daily metFORMIN (GLUCOPHAGE) 1,000 mg tablet Take 1,000 mg by mouth twice daily. 0 02/14/2018 Active Comment on above: Take 1,000 mg by corey th twice daily. montelukast 10 mg oral tablet (20 sources) Leukotriene Receptor Antagonist Start: 08-13-20 22 take 1 tablet by mouth once daily montelukast (SINGULAIR) 10 mg tablet Take 10 mg by mouth once daily. 0 04/18/2022 Active Comment on above: Take 10 mg by mouth once daily. omeprazole 20 mg delayed release oral capsule (20 sources) Proton Pump Inhibitor Start: 05-17-20 omeprazole (PRILOSEC) 20 mg capsule take 1 capsule by mouth once alejandra ly pantoprazole 20 mg delayed release oral tablet (6 sources) Proton Pump Inhibitor take 1 tablet by mouth once daily as needed Pantoprazole Sodium 20 MG 1 tablet Orally Once a day prn Active polyethylene glycol 3350 15753 mg powder for oral solution (12 sources) Osmotic Laxative Start: 03-07-20 polyethylene glycol 3350 17 gram/dose powder Take 17 g by mouth. 0 03/07/2024 Active promethazine hydrochloride 12.5 mg oral tablet (19 sources) Phenothiazine Start: 11-17-19 End: 11-22-19 take 1 tablet by mouth every eight hours as needed for nausea and vomiting promethazine (PHENERGAN) 12.5 mg tablet Take 1 tablet (12.5 mg total) by mouth every 8 (eight) hours as needed for nausea or vomiting for up to 5 days. 15 tablet 0 11/17/2023 11/22/2023 Active Start: 03-02-2022 take 1 tablet by corey every six hours as needed promethazine (PHENERGAN) 25 mg tablet Take 25 mg by mouth every 6 hours as needed. 0 03/02/2022 Active Comment on above: Take 25 mg by mouth every 6 hours as needed. zolpidem tartrate 5 mg oral tablet (20 sources) gamma-Aminobutyric Acid-ergic Agonist Start: 02-19-2018 take 1 tablet by mouth once daily at bedtime as needed for sleep zolpidem (AMBIEN) 5 mg tablet TAKE ONE TABLET BY MOUTH DAILY AT BEDTIME NEEDED FOR SLEEP 0 05/13/2022 Active End: 05-22-2022 take 1 tablet by mouth every twenty-four hours Zolpidem Tartrate 10 MG 1 tablet at bedtime as needed Orally Once a day Active Comment on above: Take by mouth at bed time as needed. TAKE ONE TABLET BY OUTH DAILY AT BEDTIME NEEDED FOR SLEEP Completed/Discontinued Medications Medication Drug Class(es) Dates Sig (Normalized) Sig (Original) acetaminophen 325 mg / HYDROcodone bitartrate 7.5 mg oral tablet (2 sources) Opioid Agonist Start: 03-16-2024 End: 03-23-2024 take 1 tablet by mouth every four hours as needed HYDROcodone-Acetam inophen (NORCO) 7.5-325 mg per tablet Take 1 tablet by mouth every 4 hours as needed. 0 03/16/2024 03/23/2024 azithromycin 250 mg oral tablet (9 sources) Macrolide Antimicrobial Start: 05-06-2022 End: 03-23-2024 azithromycin (ZITHROMAX) 250 mg tablet Take by mouth as directed. TAKE 2 TABLETS BY MOUTH TODAY, THEN TAKE 1 TABLET DAILY FOR 4 DAYS 0 05/06/2022 03/23/2024 Discontinued (Discontinued by Patient) Comment on above: Take by mouth as dir ected. TAKE 2 TABLETS BY MOUTH TODAY, THEN TAKE 1 TABLET DAILY FOR 4 DAYS budesonide/formoter ol fumarate (SYMBICORT INHALATION) (11 sources) End: 03-23-2024 budesonide/formote rol fumarate (SYMBICORT INHALATION) Inhale as instructed. 0 03/23/2024 Discontinued (Discontinued by Patient) budesonide/formo terol fumarate (SYMBICORT INHALATION) Inhale as instructed. 0 Active Comment on above: Inhale as instructed . 120 actuat fluticasone propionate 0.22 mg/actuat metered dose inhaler (14 sources) Corticosteroid Start: 11-13-19 End: 05-22-20 take 2 puff(s) by inhalation twice daily [...] 2 Puffs as in structed twice daily. iron sucrose 300 mg in NaCl 0.9% 250 mL (VENOFER) (2 sources) Start: 04-07-2024 End: 04-07-2024 iron sucrose 300 mg in NaCl 0.9% 250 mL (VENOFER) Start: 03-30-2024 End: 03-30-2024 iron sucrose 300 mg in NaCl 0.9% 250 mL (VENOFER) metoclopramide 10 mg oral tablet (11 sources) Dopamine-2 Receptor Antagonist Start: 09-17-2013 End: 03-23-2024 METOCLOPRAMIDE HCL 10 mg tablet as needed. 0 09/17/2013 03/23/2024 Discontinued Comment on above: as needed. vitamin b12 1 mg/ml injectable solution (3 sources) Vitamin B12 Start: 04-06-2024 End: 04-06-2024 cyanocobalamin 1,000 mcg injection Start: 03-30-2024 End: 03-30-2024 cyanocobalamin 1,000 mcg inj ection Start: 03-23-2024 End: 03-23-2024 cyanocobalamin 1,000 mcg inj ection Problems Active Problems Problem Classification Problem Date Documented Da te Episodic/Chronic Abdominal pain (2 sources) Abdominal pain; Translations: [Left upper quadrant pain] Onset: 4 Episodic Anxiety disorders (20 sources) Posttraumatic stress disorder; Translations: [Post-traumatic stress disorder, unspecified] Onset: 2 02-21-2015 Chronic Blindness and vision defects (1 source) Unspecified visual loss; Translations: [UNSPECIFIED VISUAL LOSS] Onset: 3 Chronic Cancer of stomach (4 sources) Malignant tumor of cardia; 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] Onset: 4 03-23-2024 Chronic Chronic obstructive pulmonary disease and bronchiectasis (20 sources) Chronic obstructive lung disease; Translations: [Chronic obstructive pulmonary disease, unspecified] Onset: 2 02-21-2015 Chronic Deficiency and other anemia (20 sources) Iron deficiency anemia due to blood [...] Normocytic normochromic anemia; Translations: [Anemia, unspecified] Episodic Deficiency and other anemia (16 sources) Megaloblastic anemia due to vitamin B>12< deficiency; Translations: [Other megaloblastic anemias, not elsewhere classified] Onset: 2 03-23-2024 Episodic Diabetes mellitus with complications (1 source) [...] without esophagitis] Onset: 1 Resolved: 1 Chronic Esophageal disorders (1 source) Esophageal disorders; Translations: [Gastro-esophageal reflux disease with esophagitis, without bleeding] Onset: 4 Essential hypertension (20 sources) Hypertensive disorder; Translations: [...] Weakness; Translations: [Asthenia] Onset: 2 11-18-2023 Episodic Melanomas of skin (1 source) Personal history of malignant melanoma of skin; Translations: [History of melanoma] Onset: 4 Episodic Menopausal disorders (1 source) Hormone replacement therapy; Translations: [HORMONE REPLACEMENT THERAPY] Onset: 3 Episodic Menstrual disorders (6 sources) Irregular periods; Translations: [Irregular menstruation, unspecified] Onset: 3 08-23-2023 Chronic Miscellaneous mental health disorders (6 sources) Not getting enough sleep; Translations: [Insufficient sleep syndrome] Onset: 3 08-23-2023 Chronic Mood disorders (20 sources) Bipolar I disorder; Translations: [Bipolar disorder, unspecified] Onset: 1 02-21-2015 Chronic Neoplasms of unspecified nature or uncertain behavior (2 sources) Neoplasm of unspecified behavior of digestive system; Translations: [Neoplasm of unspecified behavior of digestive system] Onset: 4 Episodic Nutritional deficiencies (6 sources) Deficiency of macronutrients; Translations: [Unspecified severe protein-calorie malnutrition] Onset: 4 04-03-2024 Chronic Osteoarthritis (20 sources) Arthritis; Translations: [Unspecified osteoarthritis, unspecified site] Onset: 2 02-21-2015 Chronic Other acquired deformities (20 sources) Scoliosis deformity of spine; Translations: [Scoliosis, unspecified] Onset: 2 02-21-2015 Chronic Other aftercare (5 sources) Other long-term (current) drug therapy; Translations: [OTH BIOMED TECH CURRENT DRUG THERAPY] Onset: 2 Episodic Other aftercare (1 source) skilled nursing (current) use of oral hypoglycemic drugs; Translations: [BIOMED TECH USE ORAL HYPOGLYCEMIC DX] Onset: 3 Episodic Other and unspecified benign neoplasm (1 source) Benign neoplasm of ascending colon; Translations: [Benign neoplasm of ascending colon] Onset: 4 Episodic Other bone disease and musculoskeletal deformities [...] origin; Translations: [Diarrhea, unspecified] 11-17-2023 Episodic Other gastrointestinal disorders (1 source) Other fecal abnormalities; Translations: [Other fecal abnormalities] Onset: 4 Episodic Other infections; including parasitic (2 sources) Personal history of other infectious and parasitic diseases; Translations: [History of hepatitis C] Onset: 1 Resolved: 1 Episodic Other injuries and conditions due to external causes (20 sources) H/O: fracture; Translations: [Personal history of [...] [Other specified respiratory disorders] 01-29-2021 Episodic Other nervous system disorders (1 source) Pain due to neoplastic disease; Translations: [Neoplasm related pain (acute) (chronic)] 03-23-2024 Chronic Other nervous system disorders (1 source) Neoplasm related pain (acute) (chronic); Translations: [Cancer related pain] Onset: 4 Chronic Other non-epithelial cancer of skin (1 source) Personal history of other malignant neoplasm of skin; Translations: [PERSONAL HX OT MALIG NEOPLASM SKIN] Onset: 3 Episodic Other nutritional; endocrine; and metabolic disorders (12 sources) Hypercalcemia; Translations: [Hypercalcemia] Onset: 3 08-23-2023 Chronic Other nutritional; endocrine; and metabolic disorders (2 sources) Hypercalcemia; Translations: [Hypercalcemia E83.52] Onset: 1 Resolved: 1 Chronic Other nutritional; endocrine; and metabolic disorders (6 sources) Body mass index 25-29 - overweight; Translations: [Body mass index (BMI) 27.0-27.9, adult] Episodic Other nutritional; endocrine; and metabolic disorders (1 source) Abnormal weight loss; Translations: [Abnormal weight loss] Onset: 4 Episodic Other screening for suspected conditions (not mental disorders or infectious disease) (2 sources) Abnormal findings on diagnostic imaging of other parts of digestive tract; Translations: [Encounter for screening mammogram for malignant neoplasm of breast] Onset: 3 Episodic Other upper respiratory disease (6 sources) Allergic rhinitis; Translations: [Allergic rhinitis, unspecified] Onset: 2 08-25-2022 Chronic Other upper respiratory disease (1 source) Chronic rhinitis; Translations: [Chronic rhinitis] Onset: 3 Chronic Pneumonia (except that caused by tuberculosis or sexually transmitted disease) (20 sources) Pneumonia; Translations: [Pneumonia, unspecified organism] Onset: 2 Resolved: 3 02-21-2015 Episodic Pneumonia (except that caused by tuberculosis or sexually transmitted disease) (1 source) Pneumonia (except that caused by tuberculosis or sexually transmitted disease); Translations: [PNEUMONIA D/T CORONAVIRUS DIS 2019] Onset: 3 Pulmonary heart disease (2 sources) Pulmonary embolism; Translations: [Other pulmonary embolism without acute cor pulmonale] Onset: 4 03-23-2024 Episodic Residual codes; unclassified (1 source) Sleep apnea, unspecified; Translations: [SLEEP APNEA UNSPECIFIED] Onset: 3 Chronic Residual codes; unclassified (6 sources) Disorder of digestive tract; Translations: [Acquired absence of other specified parts of digestive tract] Onset: 3 08-23-2023 Episodic Residual codes; unclassified (1 source) Pain, unspecified; Translations: [Pain, unspecified] Onset: 4 Episodic Residual codes; unclassified (1 source) Pain Onset: 4 Episodic Respiratory failure; insufficiency; arrest (adult) (1 source) Chronic respiratory failure with hypoxia; Translations: [CHRONIC RESPIRATORY FAIL W/HYPOXIA] Onset: 3 Chronic Skull and face fractures (20 sources) Fracture of bone of head; Translations: [Fracture of mandible, unspecified, initial encounter for closed fracture] Onset: 2 09-01-2021 Episodic Spondylosis; intervertebral disc disorders; other back problems (20 sources) Neck pain; Translations: [Cervicalgia] Onset: 5 02-21-2015 Episodic Superficial injury; contusion (3 sources) Abrasion of other part of head, initial encounter; Translations: [Abrasion, right knee, initial encounter] Onset: 3 Episodic Thyroid disorders (17 sources) Hypothyroidism; Translations: [Hypothyroidism, unspecified] Onset: 2 09-03-2023 Chronic Thyroid disorders (20 sources) Disorder of thyroid gland; Translations: [Disorder of thyroid, unspecified] 02-21-2015 Episodic Unclassified (2 sources) COUGH, UNSPECIFIED; Translations: [COUGH, UNSPECIFIED] Onset: 3 Unclassified (1 source) CONTACT W/AND (SUSP) EXPOS COVID-19; Translations: [CONTACT W/AND (SUSP) EXPOS COVID-19] Onset: 2 Unclassified (1 source) abnormal CT scan, unintentional weight loss Onset: 4 Unclassified (1 source) POST-OP VISIT Onset: 4 Unclassified (1 source) Mass Onset: 4 Viral infection (3 sources) COVID-19; Translations: [COVID-19] Onset: 3 Past or Other Problems Problem Classification Problem Date Documented Da te Episodic/Chronic Acute bronchitis (1 source) Acute bronchitis, unspecified; Translations: [ACUTE BRONCHITIS UNSPECIFIED] Onset: 09-14-2022 Episodic Conditions associated with dizziness or vertigo (1 source) Dizziness and giddiness; Translations: [DIZZINESS AND GIDDINESS] Onset: 07-10-2022 Episodic Deficiency and other anemia (20 sources) Anemia; Translations: [Anemia, unspecified] Onset: 10-26-2013 10-26-2013 Episodic Deficiency and other anemia (13 sources) 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; Translations: [Vitamin B12 deficiency anemia due to selective vitamin B12 malabsorption with proteinuria] Onset: 05-25-2022 05-25-2022 Episodic Deficiency and other anemia (7 sources) Anemia, unspecified; Translations: [ANEMIA UNSPECIFIED] Onset: 10-26-2013 Episodic Gastrointestinal hemorrhage (4 sources) Hematemesis; Translations: [HEMATEMESIS] Onset: 05-16-2022 Episodic Mood disorders (7 sources) Mood disorders; Translations: [DEPRESSION UNSPECIFIED] Onset: 01-19-2023 08-23-2023 Nausea and vomiting (4 sources) Nausea with vomiting, unspecified; Translations: [NAUSEA WITH VOMITING UNSPECIFIED] Onset: 07-08-2022 Episodic Nonspecific chest pain (4 sources) Chest pain, unspecified; Translations: [CHEST PAIN UNSPECIFIED] Onset: 09-22-2022 Episodic Nutritional deficiencies (20 sources) Iron deficiency; Translations: [Iron deficiency] Onset: 10-26-2013 10-26-2013 Episodic Other connective tissue disease (20 sources) Impingement syndrome of left shoulder region; Translations: [Impingement syndrome of left shoulder] Onset: 02-21-2015 02-21-2015 Episodic Other connective tissue disease (6 sources) Hand muscle weakness; Translations: [Muscle weakness (generalized)] Onset: 06-28-2023 08-23-2023 Episodic Other liver diseases (1 source) Abnormal levels of other serum enzymes Onset: 07-23-2021 Resolved: 07-23-2021 Episodic Other lower respiratory disease (6 sources) Dyspnea on exertion; Translations: [Other forms of dyspnea] Onset: 10-08-2022 10-08-2022 Episodic Residual codes; unclassified (1 source) Procedure and treatment not carried out because of patient's decision for other reasons; Translations: [PROC AND TX NOT CARRIED OUT PT OTH RSN] Onset: 09-29-2022 Episodic Screening and history of mental health and substance abuse codes (1 source) Personal history of nicotine dependence; Translations: [PERSONAL HISTORY OF NICOTINE DEPEND] Onset: 09-29-2022 Episodic Sprains and strains (12 sources) Strain of neck muscle; Translations: [Strain of muscle, fascia and tendon at neck level, initial encounter] Onset: 06-28-2023 08-23-2023 Episodic Unclassified (1 source) COUGH, UNSPECIFIED; Translations: [COUGH, UNSPECIFIED] Onset: 09-12-2022 Viral infection (1 source) Viral infection, unspecified; Translations: [VIRAL INFECTION UNSPECIFIED] Onset: 07-10-2022 Episodic Results Test Name Value Interpretation Reference Range Facility Surgical Pathologyon 024 Surgical Pathology Normal [facility] Comment on above: Result Comment: [facility] [address] [place] [address] Surgical Pathology Consultation ADDENDUM IN Patient Name:KAYA SCHILLING:1965 (Age: 59)Gender:FTaken:4Reported:4Physician(s):Beto Vivar MD ([phone])Copy To: Rec. #:[id number]: #[id number] Final Pathologic Diagnosis Gastric biomarker Reporting Template Results - Immunohistochemistry Testing for Mismatch Repair (MMR) Proteins MLH1: Intact nuclear expression MSH2: Intact nuclear expression MSH6: Intact nuclear expression PMS2: Intact nuclear expression External and internal controls stained appropriately IHC Interpretation No loss of nuclear expression of MMR proteins: low probability of microsatellite instability- High (MSI-H) There are exceptions to the above IHC interpretations. These results should not be considered in isolation, and clinical correlation with genetic counseling is recommended to assess the need for germline testing. Methods - Block: 1A Fixative: Formalin (Formalin-fixed, paraffin embedded tissue) MLH1: Vendor: [employer], Primary Antibody: M1 MSH2: Vendor: [employer], Primary Antibody: [id number] MSH 6: Vendor: [employer], Primary Antibody: 44 PMS2: Vendor: [employer], Primary Antibody: [id number] Detection System: MLH1, MSH2, PMS2: [employer] OptiView DAB IHC Detection Kit (indirect biotin-free detection) MSH6: [facility] ultraView Ventress DAB Detection Kit (indirect biotin-free detection) MSH6 was developed and its performance characteristics determined by the [facility] Immunohistochemistry Department. It has not been cleared or approved by the U.S. Food and Drug Administration. The FDA has determined that such clearance or approval is not necessary. This test is used for clinical purposes. It should not be regarded as investigational or for research. This laboratory is certified under the Clinical Laboratory Improvement Amendments of 1988 (???CLIA???) as qualified to perform high-complexity clinical testing. Scoring Criteria Intact expression - Any positive reaction in tumor cell nuclei Loss of expression - No positive reaction in tumor cell nuclei with positive reaction in internal control cells References Template for Reporting Results of Biomarker Testing of Specimens from Patients with Carcinoma of the Colon and Rectum. Version: Epoch 1.2.0.1. Template posting date: August 2014. [email or web address] Report Electronically Signed Out dorothea/04/05/2024WAK Addendum (PHS) Date Reported: Gastric biomarker Reporting Template Results - Immunohistochemistry Testing for Mismatch Repair (MMR) Proteins MLH1: Intact nuclear expression MSH2: Intact nuclear expression MSH6: Intact nuclear expression PMS2: Intact nuclear expression External and internal controls stained appropriately IHC Interpretation No loss of nuclear expression of MMR proteins: low probability of microsatellite instability- High (MSI-H) There are exceptions to the above IHC interpretations. These results should not be considered in isolation, and clinical correlation with genetic counseling is recommended to assess the need for germline testing. Methods - Block: 1A Fixative: Formalin (Formalin-fixed, paraffin embedded tissue) MLH1: Vendor: [employer], Primary Antibody: M1 MSH2: Vendor: [employer], Primary Antibody: [id number] MSH 6: Vendor: [employer], Primary Antibody: 44 PMS2: Vendor: [employer], Primary Antibody: A16-4 Detection System: MLH1, MSH2, PMS2: [employer] OptiView DAB IHC Detection Kit (indirect biotin-free detection) MSH6: [employer] ultraView Ventress DAB Detection Kit (indirect biotin-free detection) MSH6 was developed and its performance characteristics determined by the [facility] Immunohistochemistry Department. It has not been cleared or approved by the U.S. Food and Drug Administration. The FDA has determined that such clearance or approval is not necessary. This test is used for clinical purposes. It should not be regarded as investigational or for research. This laboratory is certified under the Clinical Laboratory Improvement Amendments of 1988 (???CLIA???) as qualified to perform high-complexity clinical testing. Scoring Criteria Intact expression - Any positive reaction in tumor cell nuclei Loss of expression - No positive reaction in tumor cell nuclei with positive reaction in internal control cells References Template for Reporting Results of Biomarker Testing of Specimens from Patients with Carcinoma of the Colon and Rectum. Version: [employer] 1.2.0.1. Template posting date: August 2014. [email or web address] Rigoberto Fischer MD Interpretation performed at [facility], [address] [place] [address], License number: [id number]. Gross Description Per (more content not included)... CNPNon [facility]-28[facility]2024 [facility] KAY[facility] SCHILLING ([id number]) 1965 F Date Time Provider Department 03/28/24 TENA ARANDA During your visit today, we recorded the following information about you: Tena Aranda RN 03/28/2024 9:53 AM Signed Pt called for I need stronger pain meds. 03/23/24 pt had spoke with BRM and pt was referred to PCP for management of pain medications, until follow up with pall med 04/14/24. Discussed with pt. She will call PCP, and was transferred to PSS to see if appt can be moved sooner. BRM: BRIAN Aranda RN Allergies As of Date: 03/28/2024 Noted Allergy Reaction PERCOCET (OXYCODONE-ACETAMINOPHE N)02/21/2015 8 - GI Upset STADOL (BUTORPHANOL TARTRATE) 10/26/2013 11 - Vomiting Comments: incoherent Date Reviewed: 03/23/2024 Reviewed by: Kalina Lopez MA - Fully Assessed Reason for Visit: Pain [78] Prescriptions as of 03/28/2024 - gabapentin (NEURONTIN) 100 mg capsule Take by mouth. - apixaban (ELIQUIS) 5 mg tab(s) Take 10 mg by mouth as directed. - docusate sodium (COLACE) 100 mg capsule Take 100 mg by mouth. - polyethylene glycol 3350 17 gram/dose powder Take 17 g by mouth. - atorvastatin (LIPITOR) 40 mg tablet Take 40 mg by mouth once daily. - baclofen 10 mg tablet Take 10 mg by mouth every 6 hours as needed. - zolpidem (AMBIEN) 5 mg tablet TAKE ONE TABLET BY MOUTH DAILY AT BEDTIME NEEDED FOR SLEEP - lithium carbonate (ESKALITH) 300 mg capsule TAKE ONE TABLET BY MOUTH IN THE MORNING AND TWO TABLETS BY MOUTH IN THE EVENING - levothyroxine (SYNTHROID) 100 mcg tablet Take 100 mcg by mouth once daily. - busPIRone (BUSPAR) 15 mg tablet Take [...] 1,000 mg by mouth twice daily. - levomilnacipran ER (FETZIMA ER) 40 mg capsule Take by mouth once daily. - cloNIDine HCl (CATAPRES) 0.1 mg tablet Take 0.1 mg by mouth twice daily. - ALPRAZOLAM 2 mg tablet Take 2 mg by mouth three times daily as needed. 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 Clinical correlation is required. The CA 19-9 Antigen test was performed using the [employer] DXI paramagnetic particle chemiluminescent immunoassay method. Results obtained with different assay methods or kits cannot be used interchangeably. CARCINOEMBRYONIC ANTIGENon 0 03-24-2024 Carcinoembryonic Ag [Mass/Vol] 2.2 ng/mL NINF - 2.9 ng/mL [facility] Comment on above: Carcinoembryonic ant igen test is used as an aid in monitoring response to treatment or recurrence in patients with established colorectal, breast, lung, prostatic, pancreatic, and ovarian carcinomas. Clinical correlation is required. The Carcinoembryonic antigen test was performed using the [employer] DXI paramagnetic particle chemiluminescent immunoassay method. Results obtained with different assay methods or kits cannot be used interchangeably. Leo 03-24-2024 [facility] Telephone ([place]) KAYA SCHILLING ([id number]) 1965 F Date Time Provider Department 03/24/24 TENA ARANDA During your visit today, we recorded the following information about you: Tena Aranda RN 03/24/2024 11:38 AM Addendum Pt called the acute care occupational therapist service last night for pain. Called to discuss and pt VM full. Plan per BRM OV 03/23/24 [place] PRN pain and pall med referral. Pt is schedule with Taniya Hughes 04/14/24. BORA Cantor RN spoke with BRM and he did talk with pt last night. She was encouraged to see PCP, if needed for further pain control, until her scheduled new pt appt with pall med at our facility 04/14/24. Tena Aranda RN Allergies As of Date: 03/24/2024 Noted Allergy Reaction PERCOCET (OXYCODONE-ACETAMINOPHE N)02/21/2015 8 - GI Upset STADOL (BUTORPHANOL TARTRATE) 10/26/2013 11 - Vomiting Comments: incoherent Date Reviewed: 03/23/2024 Reviewed by: Kalina Lopez MA - Fully Assessed Reason for Visit: Pain [78] Prescriptions as of 03/24/2024 - gabapentin (NEURONTIN) 100 mg capsule Take by mouth. - iv contrast (will be provided with radiology test) CT Chest Abdomen-Inject, intravenously, once for 1 dose.No IV access, insert saline lock prior to the beginning of sedation, infusion, injection of imaging exam. Discontinue saline lock post exam. If Pt. has a central line or IVAD, may access for administration according to line specific nursing protocol. Once exam is complete flush line and de-access according to line specific nursing protocol in the CT contrast administration guidelines link. - enteric contrast (will be provided with radiology test) For CT Chest Abdomen W IVCON order Administer, As Directed One Time Only, via Oral, Rectal, both Oral and Rectal, Enteric Tube, Stoma or Indwelling Catheter, Enteric Contrast as designated per enteric contrast guidelines - apixaban (ELIQUIS) 5 mg tab(s) Take 10 mg by mouth as directed. - docusate sodium (COLACE) 100 mg capsule Take 100 mg by mouth. - polyethylene glycol 3350 17 gram/dose powder Take 17 g by mouth. - atorvastatin (LIPITOR) 40 mg tablet Take 40 mg by mouth once daily. - baclofen 10 mg tablet Take 10 mg by mouth every 6 hours as needed. - zolpidem (AMBIEN) 5 mg tablet TAKE ONE TABLET BY MOUTH DAILY AT BEDTIME NEEDED FOR SLEEP - lithium carbonate (ESKALITH) 300 mg capsule TAKE ONE TABLET BY MOUTH IN THE MORNING AND TWO TABLETS BY MOUTH IN THE EVENING - levothyroxine (SYNTHROID) 100 mcg tablet Take 100 mcg by mouth once daily. - busPIRone (BUSPAR) 15 mg tablet Take [...] 1,000 mg by mouth twice daily. - levomilnacipran ER (FETZIMA ER) 40 mg capsule Take by mouth once daily. - cloNIDine HCl (CATAPRES) 0.1 mg tablet Take 0.1 mg by mouth twice daily. - ALPRAZOLAM 2 mg tablet Take 2 mg by mouth three times daily as needed. 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] 06/04/2016 Iron deficiency anemia due to chronic blood los*05/25/2022 Megaloblastic anemia due to vitamin B12 deficie*05/25/2022 Encounter Status:Closed by TENA ARANDA on 03/24/24 Normal [facility] Cancer Ag 19-9 Qnon 03-24-20 Interpretation and review of laboratory results Abnormal [facility] Carcinoembryonic Ag [Mass/Vo l]on 03-24-2024 Interpretation and review of laboratory results Normal [facility] Cobalamin (Vitamin B12) [Mas s/Vol]on 03-24-2024 Interpretation and review of laboratory results Abnormal [facility] Comprehensive metabolic 2000 panelOrdered By: Grisel Ludwig on 03-24-2024 Albumin [Mass/Vol] 3.8 g/dL Low 3.9 - 4.9 g/dL [facility] ALP [Catalytic activity/Vol] 110 U/L 34 - 123 U/L [facility] ALT [Catalytic activity/Vol] 7 U/L 7 - 38 U/L [facility] Anion gap [Moles/Vol] 9 mmol/L 8 - 15 mmol/L [facility] AST [Catalytic activity/Vol] 18 U/L 13 - 35 U/L [facility] Bilirubin [Mass/Vol] 0.4 mg/dL 0.2 - 1.3 mg/dL [facility] Calcium [Mass/Vol] 10.8 mg/dL High 8.5 - 10. 2 mg/dL [facility] Chloride [Moles/Vol] 104 mmol/L 98 - 107 mmol/L [facility] CO2 [Moles/Vol] 24 mmol/L 22 - 30 mmol/L [facility] Creatinine [Mass/Vol] 1.25 mg/dL High 0.58 - 0.96 mg/dL [facility] GFR/1.73 sq M.predicted among non-blacks MDRD (S/P/Bld) [Vol rate/Area] 49 mL/min/{1.73_m2} Low - PINF [facility] Comment on above: Estimated Glomerular Filtration Rate (eGFR) is calculated using the 2020 CKD-EPI creatinine equation. This equation utilizes serum creatinine, sex, and age as parameters. The creatinine assay has traceable calibration to isotope dilution-mass spectrometry. Refer to KDIGO guidelines for clinical interpretation. In patients with unstable renal function, e.g. those with acute kidney injury, the eGFR may not accurately reflect actual GFR. Glucose [Mass/Vol] 227 mg/dL High 74 - 99 mg/dL [facility] Comment on above: The [place] Diab[employer] s Association (ADA) provides guidance for cutoff values for fasting glucose and random glucose. The ADA defines fasting as no caloric intake for at least 8 hours. Fasting plasma glucose results between 100 to 125 mg/dL indicate increased risk for diabetes (prediabetes). Fasting plasma glucose results greater than or equal to 126 mg/dL meet the criteria for diagnosis of diabetes. In the absence of unequivocal hyperglycemia, results should be confirmed by repeat testing. In a patient with classic symptoms of hyperglycemia or hyperglycemic crisis, random plasma glucose results greater than or equal to 200 mg/dL meet the criteria for diagnosis of diabetes. Reference: Standards of Medical Care in Diabetes 2016, [place] [employer] Association. Diabetes Care. 2016.39(Suppl 1). Interpretation and review of laboratory results Abnormal [facility] Potassium [Moles/Vol] 3.7 mmol/L 3.7 - 5.1 mmol/L [facility] Protein [Mass/Vol] 6.9 g/dL 6.3 - 8.0 g/dL [facility] Sodium [Moles/Vol] 137 mmol/L 136 - 144 mmol/L [facility] Urea nitrogen [Mass/Vol] 24 mg/dL High 7 - 21 mg/dL [facility] VITAMIN B12on 03-24-2024 Cobalamin (Vitamin B12) [Mass/Vol] pg/mL Low 232 - 1245 pg/mL [facility] Comment on above: Result rechecked. CBC W Auto Differential pane l (Bld)on 03-23-2024 Basophils (Bld) [#/Vol] NINF [facility] Basophils/100 WBC (Bld) 0.2 % [facility] Differential cell count method Nom (Bld) Auto [facility] Eosinophils (Bld) [#/Vol] 0.04 10*3/uL NINF [facility] Eosinophils/100 WBC (Bld) 0.8 % [facility] Erythrocyte distribution width (RBC) [Ratio] 17.8 % High 11.5 - 15.0 % [facility] Hematocrit (Bld) [Volume fraction] 22.5 % Low 36.0 - 46.0 % [facility] Hemoglobin (Bld) [Mass/Vol] 7.6 g/dL Low 11.5 - 15.5 g/dL [facility] Immature granulocytes (Bld) [#/Vol] NINF [facility] Immature granulocytes/100 WBC (Bld) 0.4 % [facility] Interpretation and review of laboratory results Abnormal [facility] Lymphocytes (Bld) [#/Vol] 0.73 10*3/uL Low [facility] Lymphocytes/100 WBC (Bld) 15.4 % [facility] MCH (RBC) [Entitic mass] 38.8 pg High 26.0 - 34.0 pg [facility] MCHC (RBC) [Mass/Vol] 33.8 g/dL 30.5 - 36.0 g/dL [facility] MCV (RBC) [Entitic vol] 114.8 fL High 80.0 - 100.0 fL [facility] Monocytes (Bld) [#/Vol] 0.31 10*3/uL [facility] Monocytes/100 WBC (Bld) 6.5 % [facility] Neutrophils (Bld) [#/Vol] 3.64 10*3/uL [facility] Neutrophils/100 WBC (Bld) 76.7 % [facility] Nucleated RBC (Bld) [#/Vol] [facility] Nucleated RBC/100 WBC (Bld) [Ratio] 0.0 % /100 WBC [facility] Platelet mean volume (Bld) [Entitic vol] 9.0 fL 9.0 - 12.7 fL [facility] Platelets (Bld) [#/Vol] 247 10*3/uL [facility] RBC (Bld) [#/Vol] 1.96 10*6/uL Low 3.90 - 5.2 0 m/uL [facility] WBC (Bld) [#/Vol] 4.75 10*3/uL [facility] Basophils (Bld) [#/Vol] 10*3/uL Normal <0.11 [facility] Comment on above: Order Comment: Speci men Type: BLOOD SPECIMEN Ordering Facility: [facility] Address: [address] [place] [address] Performed By: #### 5 7021-8 #### [facility] CLIA [id number] [address] [place] [address] Basophils/100 WBC (Bld) 0.2 % Normal [facility] Comment on above: Order Comment: Speci men Type: BLOOD SPECIMEN Ordering Facility: [facility] Address: [address] [place] [address] Performed By: #### 5 7021-8 #### [facility] CLIA [id number] [address] [place] [address] Differential cell count method Nom (Bld) Auto Normal [facility] Comment on above: Order Comment: Speci men Type: BLOOD SPECIMEN Ordering Facility: [facility] Address: [address] [place] [address] Performed By: #### 5 7021-8 #### [facility] CLIA [id number] [address] [place] [address] Eosinophils (Bld) [#/Vol] 0.04 10*3/uL Normal <0.46 [facility] Comment on above: Order Comment: Speci men Type: BLOOD SPECIMEN Ordering Facility: [facility] Address: [address] [place] [address] Performed By: #### 5 7021-8 #### [facility] CLIA [id number] [address] [place] [address] Eosinophils/100 WBC (Bld) 0.8 % Normal [facility] Comment on above: Order Comment: Speci men Type: BLOOD SPECIMEN Ordering Facility: [facility] Address: [address] [place] [address] Performed By: #### 5 7021-8 #### [facility] CLIA [id number] [address] [place] [address] Erythrocyte distribution width (RBC) [Ratio] 17.8 % High 11.5-15.0 [facility] Comment on above: Order Comment: Speci men Type: BLOOD SPECIMEN Ordering Facility: [facility] Address: [address] [place] [address] Performed By: #### 5 7021-8 #### [facility] CLIA [id number] [address] [place] [address] Hematocrit (Bld) [Volume fraction] 22.5 % Low 36.0-46.0 [facility] Comment on above: Order Comment: Speci men Type: BLOOD SPECIMEN Ordering Facility: [facility] Address: [address] [place] [address] Performed By: #### 5 7021-8 #### [facility] CLIA [id number] [address] [place] [address] Hemoglobin (Bld) [Mass/Vol] 7.6 g/dL Low 11.5-15.5 [facility] Comment on above: Order Comment: Speci men Type: BLOOD SPECIMEN Ordering Facility: [facility] Address: [address] [place] [address] Performed By: #### 5 7021-8 #### [facility] CLIA [id number] [address] [place] [address] Immature granulocytes (Bld) [#/Vol] 10*3/uL Normal <0.10 [facility] Comment on above: Order Comment: Speci men Type: BLOOD SPECIMEN Ordering Facility: [facility] Address: [address] [place] [address] Performed By: #### 5 7021-8 #### [facility] CLIA [id number] [address] [place] [address] Immature granulocytes/100 WBC (Bld) 0.4 % Normal [facility] Comment on above: Order Comment: Speci men Type: BLOOD SPECIMEN Ordering Facility: [facility] Address: [address] [place] [address] Performed By: #### 5 7021-8 #### [facility] CLIA [id number] [address] [place] [address] Lymphocytes (Bld) [#/Vol] 0.73 10*3/uL Low 1.00-4.00 [facility] [facility] [place] Comment on above: Order Comment: Speci men Type: BLOOD SPECIMEN Ordering Facility: [facility] Address: [address] [place] [address] Performed By: #### 5 7021-8 #### [facility] CLIA [id number] [address] [place] [address] 84830 Lymphocytes/100 WBC (Bld) 15.4 % Normal [facility] [place] Comment on above: Order Comment: Speci men Type: BLOOD SPECIMEN Ordering Facility: [facility] Address: [address] [place] [address] Performed By: #### 5 7021-8 #### [facility] CLIA [id number] [address] [place] [address] 43984 MCH (RBC) [Entitic mass] 38.8 pg High 26.0-34.0 [facility] [place] Comment on above: Order Comment: Speci men Type: BLOOD SPECIMEN Ordering Facility: [facility] Address: [address] [place] [address] Performed By: #### 5 7021-8 #### [facility] CLIA [id number] [address] [place] [address] 62275 MCHC (RBC) [Mass/Vol] 33.8 g/dL Normal 30.5-36.0 [facility] [place] Comment on above: Order Comment: Speci men Type: BLOOD SPECIMEN Ordering Facility: [facility] Address: [address] [place] [address] Performed By: #### 5 7021-8 #### [facility] CLIA [id number] [address] [place] [address] 04094 MCV (RBC) [Entitic vol] 114.8 fL High 80.0-100.0 [facility] [place] Comment on above: Order Comment: Speci men Type: BLOOD SPECIMEN Ordering Facility: [facility] Address: [address] [place] [address] Performed By: #### 5 7021-8 #### [facility] CLIA [id number] [address] [place] [address] 52305 Monocytes (Bld) [#/Vol] 0.31 10*3/uL Normal <0.87 [facility] [place] Comment on above: Order Comment: Speci men Type: BLOOD SPECIMEN Ordering Facility: [facility] Address: [address] [id number] Performed By: #### 5 7021-8 #### [facility] CLIA [id number] [address] [place] [address] 71165 Monocytes/100 WBC (Bld) 6.5 % Normal [facility] [place] Comment on above: Order Comment: Speci men Type: BLOOD SPECIMEN Ordering Facility: [facility] Address: [facility] [place] [address] Performed By: #### 5 7021-8 #### [facility] CLIA [id number] [address] [place] [address] 31640 Neutrophils (Bld) [#/Vol] 3.64 10*3/uL Normal 1.45-7.50 [facility] [place] Comment on above: Order Comment: Speci men Type: BLOOD SPECIMEN Ordering Facility: [facility] Address: [address] [place] [address] Performed By: #### 5 7021-8 #### [facility] CLIA [id number] [address] [place] [address] 29134 Neutrophils/100 WBC (Bld) 76.7 % Normal [facility] [place] Comment on above: Order Comment: Speci men Type: BLOOD SPECIMEN Ordering Facility: [facility] Address: [address] [place] [address] Performed By: #### 5 7021-8 #### [facility] CLIA [id number] [address] [place] [address] 22824 Nucleated RBC (Bld) [#/Vol] 10*3/uL Normal <0.01 [facility] [place] Comment on above: Order Comment: Speci men Type: BLOOD SPECIMEN Ordering Facility: [facility] Address: [address] [place] [address] Performed By: #### 5 7021-8 #### [facility] CLIA [id number] [address] [place] [address] Nucleated RBC/100 WBC (Bld) [Ratio] 0.0 /100 WBC Normal [facility] [place] Comment on above: Order Comment: Speci men Type: BLOOD SPECIMEN Ordering Facility: [facility] Address: [address] [place] [address] Performed By: #### 5 7021-8 #### [facility] CLIA [id number] [address] [place] [address] 51210 Platelet mean volume (Bld) [Entitic vol] 9.0 fL Normal 9.0-12.7 [facility] [place] Comment on above: Order Comment: Speci men Type: BLOOD SPECIMEN Ordering Facility: [facility] Address: [address] [place] [address] Performed By: #### 5 7021-8 #### [facility] CLIA [id number] [address] [place] [address] 73798 Platelets (Bld) [#/Vol] 247 10*3/uL Normal 150-400 [facility] [place] Comment on above: Order Comment: Speci men Type: BLOOD SPECIMEN Ordering Facility: [facility] Address: [address] [place] [address] Performed By: #### 5 7021-8 #### [facility] CLIA [id number] [address] [place] [address] 52029 RBC (Bld) [#/Vol] 1.96 10*6/uL Low 3.90-5.20 [facility] Comment on above: Order Comment: Speci men Type: BLOOD SPECIMEN Ordering Facility: [facility] Address: [address] [place] [address] Performed By: #### 5 7021-8 #### [facility] CLIA [id number] [address] [place] [address] 35050 WBC (Bld) [#/Vol] 4.75 10*3/uL Normal 3.70-11.00 [facility] Comment on above: Order Comment: Speci men Type: BLOOD SPECIMEN Ordering Facility: [facility] Address: [address] [place] [address] Performed By: #### 5 7021-8 #### [facility] CLIA [id number] [address] [place] [address] CEA SerPl-ncon 03-23-2024 Carcinoembryonic Ag [Mass/Vol] 2.2 ng/mL Normal <=2.9 [facility] [place] Comment on above: Order Comment: Speci men Type: BLOOD SPECIMEN Ordering Facility: [facility] Address: [address] [place] [address] Result Comment: Carc inoembryonic antigen test is used as an aid in monitoring response to treatment or recurrence in patients with established colorectal, breast, lung, prostatic, pancreatic, and ovarian carcinomas. Clinical correlation is required. The Carcinoembryonic antigen test was performed using the [employer] DXI paramagnetic particle chemiluminescent immunoassay method. Results obtained with different assay methods or kits cannot be used interchangeably. Performed By: #### 2 4108-3, 2039-6 #### [facility] CLIA [id number] [address] [place] [address] [place] [facility] CNNURSEon 03-23-2024 CNNURSE Nurse Visit (HEMASA) KAYA SCHILLING ([id number]) 1965 F Date Time Provider Department 03/23/24 4:15 PM BRE NURSE BELTRAN CROW During your visit today, we recorded the following information about you: Amirah Koch MA 03/23/2024 4:30 PM Signed Patient Identification confirmed: yes. Injection given and documented on NOV per provider order. 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 - gabapentin (NEURONTIN) 100 mg capsule Take by mouth. - iv contrast (will be provided with radiology test) CT Chest Abdomen-Inject, intravenously, once for 1 dose.No IV access, insert saline lock prior to the beginning of sedation, infusion, injection of imaging exam. Discontinue saline lock post exam. If Pt. has a central line or IVAD, may access for administration according to line specific nursing protocol. Once exam is complete flush line and de-access according to line specific nursing protocol in the CT contrast administration guidelines link. - enteric contrast (will be provided with radiology test) For CT Chest Abdomen W IVCON order Administer, As Directed One Time Only, via Oral, Rectal, both Oral and Rectal, Enteric Tube, Stoma or Indwelling Catheter, Enteric Contrast as designated per enteric contrast guidelines - apixaban (ELIQUIS) 5 mg tab(s) Take 10 mg by mouth as directed. - docusate sodium (COLACE) 100 mg capsule Take 100 mg by mouth. - polyethylene glycol 3350 17 gram/dose powder Take 17 g by mouth. - atorvastatin (LIPITOR) 40 mg tablet Take 40 mg by mouth once daily. - baclofen 10 mg tablet Take 10 mg by mouth every 6 hours as needed. - zolpidem (AMBIEN) 5 mg tablet TAKE ONE TABLET BY MOUTH DAILY AT BEDTIME NEEDED FOR SLEEP - lithium carbonate (ESKALITH) 300 mg capsule TAKE ONE TABLET BY MOUTH IN THE MORNING AND TWO TABLETS BY MOUTH IN THE EVENING - levothyroxine (SYNTHROID) 100 mcg tablet Take 100 mcg by mouth once daily. - busPIRone (BUSPAR) 15 mg tablet Take [...] 1,000 mg by mouth twice daily. - levomilnacipran ER (FETZIMA ER) 40 mg capsule Take by mouth once daily. - cloNIDine HCl (CATAPRES) 0.1 mg tablet Take 0.1 mg by mouth twice daily. - ALPRAZOLAM 2 mg tablet Take 2 mg by mouth three times daily as needed. 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 Injection given and documented on NOV per provider order. Amirah BRE Koch Prescriptions ordered this encounter Disp Refills Start End CYANOCOBALAMIN (VIT B-12) 1,000 MCG/* 03/23/2024 03/23/2024 Route: INTRAMUSCULA Encounter Status:Closed by JOHNNIE AMIRAH on 03/23/24 [facility] CNOVSPon 03-23-2024 CNOVSP Visit (SP) Office (HEMASA) TONIEKAYA ([id number]) 1965 F Date Time Provider Department 03/23/24 4:00 PM BETO VIVAR During your visit today, we recorded the following information about you: Temperature Pulse Respiration Blood pressure 97.8 degrees 79/minute 16/minute 172/84 Weight 52.1 kg Beto Vivar MD 03/24/2024 9:52 AM Signed PATIENT NAME: Kaya Schilling DATE: 03/23/2024 PRIMARY CARE PHYSICIAN: Kostas Steward DO OTHER PHYSICIANS: Dr. Cong Montano, Dr. Ramires (Psych in [place]) HPI: This is a 59 year old female with recently diagnosed gastric cancer, referred for further management. The patient presented 02/13/2024 to [facility] emergency room for evaluation of left sided chest pain and abdominal pain. Chest CTA revealed bilateral pulmonary emboli for which she was started Eliquis. Also seen was a gastric mass. She was seen by surgery (Dr. Montano) and underwent EGD on 03/02/2024. This revealed a malignant tumor at the gastroesophageal junction involving the cardia. Biopsy revealed adenocarcinoma consistent with gastric primary. Colonoscopy 03/02/2024 revealed a benign polyp in the distal ascending colon, otherwise negative. Review of systems consistent with weight loss of 50 lbs over the past 3 months. Stools are dark, but no blood. Has intermittent pain over left upper quadrant and lower abdomen ., [place] with relief. Not maarried. 2 children. Family history negative. MEDICATIONS: Current Outpatient Medications Medication Sig apixaban (ELIQUIS) 5 mg tab(s) Take 10 mg by mouth as directed. docusate sodium (COLACE) 100 mg capsule Take 100 mg by mouth. polyethylene glycol 3350 17 gram/dose powder Take 17 g by mouth. atorvastatin (LIPITOR) 40 mg tablet Take 40 mg by mouth once daily. baclofen 10 mg tablet Take 10 mg by mouth every 6 hours as needed. zolpidem (AMBIEN) 5 mg tablet TAKE ONE TABLET BY MOUTH DAILY AT BEDTIME NEEDED FOR SLEEP lithium carbonate (ESKALITH) 300 mg capsule TAKE ONE TABLET BY MOUTH IN THE MORNING AND TWO TABLETS BY MOUTH IN THE EVENING levothyroxine (SYNTHROID) 100 mcg tablet Take 100 mcg by mouth once daily. azithromycin (ZITHROMAX) 250 mg tablet Take by mouth as directed. TAKE 2 TABLETS BY MOUTH TODAY, THEN TAKE 1 TABLET DAILY FOR 4 DAYS busPIRone (BUSPAR) 15 mg tablet Take 15 mg by mouth twice daily. glipiZIDE (GLUCOTROL XL) 10mg 24 hr tablet Take 10 mg by mouth once daily. lactulose (DUPHALAC, CONSTULOSE) 10 gram/15 mL solution TAKE 60 ML TWICE DAILY loratadine (CLARITIN) 10 mg tablet Take 10 mg by mouth once daily. losartan (COZAAR) 100 mg tablet Take 100 mg by mouth once daily. montelukast (SINGULAIR) 10 mg tablet Take 10 mg by mouth once daily. omeprazole (PRILOSEC) 20 mg capsule promethazine (PHENERGAN) 25 mg tablet Take 25 mg by mouth every 6 hours as needed. metFORMIN (GLUCOPHAGE) 1,000 mg tablet Take 1,000 mg by mouth twice daily. budesonide/formoterol fumarate (SYMBICORT INHALATION) Inhale as instructed. levomilnacipran ER (FETZIMA ER) 40 mg capsule Take by mouth once daily. cloNIDine HCl (CATAPRES) 0.1 mg tablet Take 0.1 mg by mouth twice daily. METOCLOPRAMIDE HCL 10 mg tablet as needed. ALPRAZOLAM 2 mg tablet Take 2 mg by mouth three times daily as needed. Indications: Anxiety No current facility-administered medications for this visit. ALLERGIES: ALLERGIES Allergen Reactions Percocet [Oxycodone* GI Upset Stadol [Butorphanol* Vomiting incoherent PAST MEDICAL HISTORY: PAST MEDICAL HISTORY Diagnosis Date Acute pulmonary embolism without acute cor pulmonale, unspecified pulmonary embolism type (HCC) Anemia Arthritis Bipolar 1 disorder (HCC) Broken jaw (HCC) no surgery COPD (chronic obstructive pulmonary disease) (HCC) Diabetes mellitus (adult onset) (HCC) Gastric carcinoma (HCC) History of broken nose had septoplasty Manic depression (HCC) Dr. Rees Midline low back pain without sciatica, unspecified chronicity Neck pain Pneumonia PTSD (post-traumatic stress disorder) Scoliosis Thyroid disease Unintended weight loss PAST SURGICAL HISTORY: PAST SURGICAL HISTORY Procedure Laterality Date BLADDER SURGERY HX mesh sling COLONOSCOPY w/EGD AND biopsy of stomach mass EXCIS BARTHOLIN GLAND/CYST NOSE SURGERY HX septum rconstruction REPAIR RECTOCELE SEPARATE PROCEDURE THYROID SURGERY HX biopsy done no CA TUBAL LIGATION HX FAMILY HISTORY: FAMILY HISTORY Problem Relation Age of Onset other (high blood pressure [Other]) Mother other (high blood pressure [Other]) Sister other (heat attack [Other]) Mother other (heart attack [Other]) Father Diabetes Sister Diabetes Maternal Grandmother Diabetes Maternal Grandfather Cancer Mother SOCIAL HISTORY: Social History Tobacco Use Smoking status: Never Passive exposure: Past (more content not included)... [facility] EVELYN Telephone (TRISTIN) KAYA SCHILLING ([id number]) 1965 F Date Time Provider Department 03/23/24 BREA VILLAGOMEZ During your visit today, we recorded the following information about you: Brea Villagomez RN 03/23/2024 8:54 AM Signed Per Minal Granados [facility], pt's HER2 FISH analysis is still pending. BORA Weaver Rebecca, RN 03/29/2024 9:04 AM Signed Results printed from Care Everywhere and placed in 's mail folder for review. Brea Villagomez RN Allergies As of Date: 03/23/2024 Noted Allergy Reaction PERCOCET (OXYCODONE-ACETAMINOPHE N)02/21/2015 8 - GI Upset STADOL (BUTORPHANOL TARTRATE) 10/26/2013 11 - Vomiting Comments: incoherent Date Reviewed: 03/23/2024 Reviewed by: Kalina Lopez MA - Fully Assessed Reason for Visit: Care Coordination [3491] Cmt: HER2 FISH Analysis Prescriptions as of 03/29/2024 - gabapentin (NEURONTIN) 100 mg capsule Take by mouth. - apixaban (ELIQUIS) 5 mg tab(s) Take 10 mg by mouth as directed. - docusate sodium (COLACE) 100 mg capsule Take 100 mg by mouth. - polyethylene glycol 3350 17 gram/dose powder Take 17 g by mouth. - atorvastatin (LIPITOR) 40 mg tablet Take 40 mg by mouth once daily. - baclofen 10 mg tablet Take 10 mg by mouth every 6 hours as needed. - zolpidem (AMBIEN) 5 mg tablet TAKE ONE TABLET BY MOUTH DAILY AT BEDTIME NEEDED FOR SLEEP - lithium carbonate (ESKALITH) 300 mg capsule TAKE ONE TABLET BY MOUTH IN THE MORNING AND TWO TABLETS BY MOUTH IN THE EVENING - levothyroxine (SYNTHROID) 100 mcg tablet Take 100 mcg by mouth once daily. - busPIRone (BUSPAR) 15 mg tablet Take [...] 1,000 mg by mouth twice daily. - levomilnacipran ER (FETZIMA ER) 40 mg capsule Take by mouth once daily. - cloNIDine HCl (CATAPRES) 0.1 mg tablet Take 0.1 mg by mouth twice daily. - ALPRAZOLAM 2 mg tablet Take 2 mg by mouth three times daily as needed. 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] 06/04/2016 Iron deficiency anemia due to chronic blood los*05/25/2022 Megaloblastic anemia due to vitamin B12 deficie*05/25/2022 Encounter Status:Closed by BREA VILLAGOMEZ on 03/29/24 Normal [facility] [place] Cancer Ag19-9 SerPl-aCncon 0 03-23-2024 Cancer Ag 19-9 Qn 806.0 [arb'U]/mL High <36.0 C [facility] Comment on above: Order Comment: Speci men Type: BLOOD SPECIMEN Ordering Facility: [facility] Address: [address] [place] [address] Result Comment: Canc er antigen 19-9 test is used as an aid in monitoring response to treatment or recurrence in patients with established pancreatic, hepatobiliary, or gastrointestinal malignancies. Clinical correlation is required. The CA 19-9 Antigen test was performed using the [employer] DXI paramagnetic particle chemiluminescent immunoassay method. Results obtained with different assay methods or kits cannot be used interchangeably. Performed By: #### 2 4108-3, 2039-02 #### [facility] CLIA [id number] [address] [id number] [address] [place] Comprehensive metabolic 2000 panelon 03-23-2024 Albumin [Mass/Vol] 3.8 g/dL Low 3.9-4.9 [facility] Comment on above: Order Comment: Speci men Type: BLOOD SPECIMEN Ordering Facility[facility] Address: [facility] [place] [address] Performed By: #### 2 4323-8 #### [facility] CLIA [id number] [address] [place] [address] 14453 ALP [Catalytic activity/Vol] 110 U/L Normal 34-123 [facility] [place] Comment on above: Order Comment: Speci men Type: BLOOD SPECIMEN Ordering Facility: [facility] Address: [address] [place] [address] Performed By: #### 2 4323-8 #### [facility] CLIA [id number] [address] [place] [address] 25108 ALT [Catalytic activity/Vol] 7 U/L Normal 7-38 [facility] [place] Comment on above: Order Comment: Speci men Type: BLOOD SPECIMEN Order[facility] Facility[facility] Address: [address] [place] [address] Performed By: #### 2 4323-8 #### [facility] CLIA [id number] [address] [place] [address] 46511 Anion gap [Moles/Vol] 9 mmol/L Normal 8-15 [facility] [place] Comment on above: Order Comment: Speci men Type: BLOOD SPECIMEN Order[facility] Facility[facility] Address: [address] [place] [address] Performed By: #### 2 4323-8 #### [facility] CLIA [id number] [address] [place] [address] AST [Catalytic activity/Vol] 18 U/L Normal 13-35 [facility] [place] Comment on above: Order Comment: Speci men Type: BLOOD SPECIMEN Order[facility] Facility: [facility] Address: [address] [id number] Performed By: #### 2 4323-8 #### [facility] CLIA [id number] [address] [place] [address] Bilirubin [Mass/Vol] 0.4 mg/dL Normal 0.2-1.3 [facility] [place] Comment on above: Order Comment: Speci men Type: BLOOD SPECIMEN Order[facility] Facility: [facility] Address: [address] [place], [place] [address] Performed By: #### 2 4323-8 #### [facility] CLIA [id number] [address] [place] [address] 71352 Calcium [Mass/Vol] 10.8 mg/dL High 8.5-10.2 [facility] Comment on above: Order Comment: Speci men Type: BLOOD SPECIMEN Order[facility] Facility: [facility] Address: [address] [place] [address] Performed By: #### 2 4323-8 #### [facility] CLIA [id number] [address] [place] [address]3889 Chloride [Moles/Vol] 104 mmol/L Normal 98-107 [facility] Comment on above: Order Comment: Speci men Type: BLOOD SPECIMEN Order[facility] Facility: [facility] Address: [address] [place] [address] Performed By: #### 2 4323-8 #### [facility] CLIA [id number] [address] [place] [address] CO2 [Moles/Vol] 24 mmol/L Normal 22-30 [facility] Comment on above: Order Comment: Speci men Type: BLOOD SPECIMEN Order[facility] Facility: [facility] Address: [address] [id number] Performed By: #### 2 4323-8 #### [facility] CLIA [id number] [address] [place] [address] Creatinine [Mass/Vol] 1.25 mg/dL High 0.58-0.96 [facility] [place] Comment on above: Order Comment: Paco fenton Type: BLOOD SPECIMEN Order[facility] Facility[facility] Address: [address] [place] [address] Performed By: #### 2 4323-8 #### [facility] CLIA [id number] [address] [place] [address] Creatinine and Glomerular filtration rate.predicted panel (S/P/Bld) 49 mL/min/1.73m??? Low >=60 [facility] Comment on above: Order Comment: Paco fenton Type: BLOOD SPECIMEN Ordering Facility: [facility] Address: [address] [place] [address] Result Comment: Carmen mated Glomerular Filtration Rate (eGFR) is calculated using the 2020 CKD-EPI creatinine equation. This equation utilizes serum creatinine, sex, and age as parameters. The creatinine assay has traceable calibration to isotope dilution-mass spectrometry. Refer to KDIGO guidelines for clinical interpretation. In patients with unstable renal function, e.g. those with acute kidney injury, the eGFR may not accurately reflect actual GFR. Performed By: #### 2 4323-8 #### [facility] CLIA [id number] [address] [place] [address] Glucose [Mass/Vol] 227 mg/dL High 74-99 [facility] Comment on above: Order Comment: Paco fenton Type: BLOOD SPECIMEN Ordering Facility: [facility] Address: [address] [id number] Result Comment: The [place] Diabetes Association (ADA) provides guidance for cutoff values for fasting glucose and random glucose. The ADA defines fasting as no caloric intake for at least 8 hours. Fasting plasma glucose results between 100 to 125 mg/dL indicate increased risk for diabetes (prediabetes). Fasting plasma glucose results greater than or equal to 126 mg/dL meet the criteria for diagnosis of diabetes. In the absence of unequivocal hyperglycemia, results should be confirmed by repeat testing. In a patient with classic symptoms of hyperglycemia or hyperglycemic crisis, random plasma glucose results greater than or equal to 200 mg/dL meet the criteria for diagnosis of diabetes. Reference: Standards of Medical Care in Diabetes 2016, [place] [employer] Association. Diabetes Care. 2016.39(Suppl 1). Performed By: #### 2 4323-8 #### [facility] CLIA [id number] [address] [place] [address] Potassium [Moles/Vol] 3.7 mmol/L Normal 3.7-5.1 [facility] [place] Comment on above: Order Comment: Speci men Type: BLOOD SPECIMEN Ordering Facility: [facility] Address: [address] [place] [address] Performed By: #### 2 432-8 #### [facility] CLIA [id number] [address] [place] [address] Protein [Mass/Vol] 6.9 g/dL Normal 6.3-8.0 [facility] Comment on above: Order Comment: Speci men Type: BLOOD SPECIMEN Ordering Facility: [facility] Address: [address] [place] [address] Performed By: #### 2 4323-8 #### [facility] CLIA [id number] [address] [place] [address] Sodium [Moles/Vol] 137 mmol/L Normal 136-144 [facility] Comment on above: Order Comment: Speci men Type: BLOOD SPECIMEN Ordering Facility: [facility] Address: [address] [place] [address] Performed By: #### 2 4323-8 #### [facility] CLIA [id number] [address] [place] [address] Urea nitrogen [Mass/Vol] 24 mg/dL High 7-21 [facility] [place] Comment on above: Order Comment: Speci men Type: BLOOD SPECIMEN Ordering Facility: [facility] Address: [address] [place] [address] Performed By: #### 2 4323-8 #### [facility] CLIA [id number] [address] [place] [address] Ferritin SerPl-mCncon 2023 Ferritin [Mass/Vol] 19.5 ng/mL Normal 14.7-205.1 [facility] Comment on above: Order Comment: Speci men Type: BLOOD SPECIMEN Ordering Facility: [facility] Address: [address] [place] [address] Performed By: #### 2 4108-3, 2039-02 #### [facility] CLIA [id number] [address] [place] [address] [place] Iron and Iron binding capaci ty panelon 03-23-2024 Iron [Mass/Vol] 43 ug/dL Normal 41-186 [facility] [place] Comment on above: Order Comment: Speci men Type: BLOOD SPECIMEN Ordering Facility: [facility] Address: [address] [place] [address] Performed By: #### 2 41083, 2039-02 #### [facility] CLIA [id number] [address] [place] [address] [place] Iron binding capacity [Mass/Vol] 292 ug/dL Normal 232-386 [facility] [place] Comment on above: Order Comment: Speci men Type: BLOOD SPECIMEN Ordering Facility: [facility] Address: [address] [place] [address] Performed By: #### 2 4108-3, 2039-02 #### [facility] CLIA [id number] [address] [place] [address] [place] Iron/TIBC [Molar ratio] 14.7 % Low 15.0-57.0 [facility] [place] Comment on above: Order Comment: Speci men Type: BLOOD SPECIMEN Ordering Facility: [facility] Address: [address] [place] [address] Performed By: #### 2 4108-3, 2039-02 #### [facility] CLIA [id number] [address] [place] [address] [place] T4/FTI/T4Uon 03-23-2024 FTI 7.7 ug/dL Normal 5.3-10.8 [facility] [place] Comment on above: Order Comment: Speci men Type: BLOOD SPECIMEN Ordering Facility: [facility] Address: [address] [place] [address] Performed By: #### 2 4108-3, 2039-02 #### [facility] CLIA [id number] [address] [place] [address] [place] T4 [Mass/Vol] 8.2 ug/dL Normal 5.5-10.2 [facility] [place] Comment on above: Order Comment: Speci men Type: BLOOD SPECIMEN Ordering Facility: [facility] Address: [address] [place] [address] Performed By: #### 2 4108-3, 2039-02 #### [facility] CLIA [id number] [address] [place] [address] [place] T4 uptake [Mass/Vol] 1.06 Normal 0.91-1.19 [facility] [place] Comment on above: Order Comment: Speci men Type: BLOOD SPECIMEN Ordering Facility: [facility] Address: [address] [place] [address] Performed By: #### 2 4108-3, 2039-02 #### [facility] CLIA [id number] [address] [place] [address] [place] TSH SerPl-aCncon 03-23-2024 TSH Qn 9.710 m[IU]/L High 0.270-4.200 [facility] [place] Comment on above: Order Comment: Speci men Type: BLOOD SPECIMEN Ordering Facility: [facility] Address: [address] [place] [address] Performed By: #### 2 4108-3, 2039-02 #### [facility] CLIA [id number] [address] [place] [address] [place] Vit B12 SerPl-mCncon 03-23-2 024 Cobalamin (Vitamin B12) [Mass/Vol] pg/mL Low 232-1245 [facility] [place] Comment on above: Order Comment: Speci men Type: BLOOD SPECIMEN Ordering Facility: [facility] Address: [address] [place] [address] Result Comment: Resu lt rechecked. Performed By: #### 2 132-9 #### [facility] CLIA [id number] [address] [place] [address] [facility] Surgical Pathologyon 024 Surgical Pathology Normal [facility] Comment on above: Result Comment: [facility] [address] [place] [address] Surgical Pathology Consultation ADDENDUM IN Patient Name:KAYA SCHILLING:1965 (Age: 59)Gender:FTaken:03/02/2024eported:03/08/2024hysician(s):Cong Montano D.O. ([phone])Copy To: Rec. #:[id number]: #[id number] Final Pathologic Diagnosis 1. Cardia mass biopsy: Invasive ADENOCARCINOMA, intestinal type, low-grade. 2. Ascending colon polyp; polypectomy: Nondiagnostic sample (only food particles noted). Report Electronically Signed Out wataniya/03/08/2024Rigoberto Fischer MD Addendum ([facility]) Date Reported: 03/15/2024 Gastric HER2 Biomarker Reporting Template HER2 (by immunohistochemistry) Equivocal (score 2+) -see comment. Comment: The block has been sent out for HER2/apollo studies by FISH analysis; addendum to follow. Methods - Block: 1A Fixative: Formalin (Formalin-fixed, paraffin embedded tissue) HER2: FDA approved (test/vendor): Pathway/ [employer], Primary Antibody: 4B5 Detection System: [employer] ultraView Ventress DAB Detection Kit (indirect biotin-free detection) Scoring Criteria Criteria Used in the ToGA Trial for Scoring HER2 Expression by Immunohistochemistry (IHC) in Gastric and Esophagogastric Junction Adenocarcinoma Surgical specimens - HER2 by immunohistochemistry: Negative (Score 0) - No reactivity or membranous reactivity in <10% of cancer cells Negative (Score 1+) - Faint or barely perceptible membranous reactivity in >10% of tumor cells; cells are reactive in only part of their membrane Equivocal (score 2+) - Weak to moderate complete, basolateral or lateral membranous reactivity in >10% of tumor cells Positive (Score 3+) - Strong complete, basolateral or lateral membranous reactivity in >10% of tumor cells Biopsy specimen - HER2 by immunohistochemistry: Negative (Score 0) - No reactivity or no membranous reactivity in any cancer cell Negative (Score 1+) - Cancer cell cluster with a faint or barely perceptible membranous reactivity irrespective of percentage of cancer cells positive Equivocal (score 2+) - Cancer cell cluster with a weak to moderate complete, basolateral, or lateral membranous reactivity irrespective of percentage of cancer cells positive Positive (Score 3+) - Cancer cell cluster with a strong complete, basolateral or lateral membranous reactivity irrespective of percentage of cancer cells positive * Cancer cell cluster consisting of =5 neoplastic cells References 1. Martina MIRANDA, et al. HER2 Testing and Clinical Decision Making in Gastroesophageal Adenocarcinoma Guideline From the College of [place] Pathologists, [place] Society for Clinical Pathology, and [place] Society of Clinical Oncology. Arch Pathol Lab Med. 2016;140:4247-6214; doi:10.5858/arpa.8635-6387-KN; 10.5858/arpa.5108-3623-XC.s1) 2. Guero et al. HER2 diagnostics in gastric cancer-guideline validation and development of standardized immunohistochemical testing. [place] Arch. 2010; 457:299-307. 3. Benji VASQUEZ, Peter Jennings E, Tim Hart, et al. Trastuzumab in combination with chemotherapy versus chemotherapy alone for treatment of HER2-positive gastric or gastro-oesophageal junction cancer (ToGA): A phase 3, open-label, randomized controlled trial. Lancet. 2010;376(4838):525-641. Electronically Signed Out Rigoberto Fischer MD Addendum ([facility]) Date Reported: 03/23/2024 Results of testing for HER2, Gastroesophageal FISH, Tissue are received on 03/23/2024 from [facility], [address] [place] [address] and are as follows: Result Summary: Negative Interpretation: There is no evidence of HER2 (ERBB2) gene amplification in this tumor specimen. According to CAP/ASCP/ASCO guidelines for HER2 testing in gastroesophageal adenocarcinoma, dual-probe in situ hybridization (LAURA) results indicating a HER2/centromere ratio less than 2.0 and an average HER2 copy number less than 4.0 signals per cell are interpreted as LAURA negative (1). Reference: 1. Martina et al., Am J Clin Pathol, 146(6);647-669, 2016. Result nuc laura(D17Z1,HER2)x2 HER2/D17Z1 ratio: 1.08 Average HER2 signals per cell: 2.0 Average D17Z1 signals per cell: 1.9 Reason for Referral: r/o HER2/apollo gene amplification Source: Cardia mass Method: FISH using probes for HER2 (17q12) and a chromosome 17 centromere (D17Z1) control probe ([employer], [employer] Two technologists score signals in 60 total nuclei from invasive or metastatic tumor after confirmation of probe performance by concurrent controls. Scoring method: Manual. Please see the complete report from [facility] [employer] in the patient???s electronic medical record. Electronically Signed Out Rigoberto Fischer, (more content not included)... COMPLETE BLOOD COUNTon 01-20 Erythrocyte distribution width (RBC) [Ratio] 22.6 % High 11.5-15.0 [facility] Comment on above: Performed By: #### C BC, CMP, HA1C #### [facility] ([id number]) [address], [address] [place] [address] Hematocrit (Bld) [Volume fraction] 27.1 % Low 35-47 [facility] Comment on above: Performed By: #### C DILCIA CMP, HA1C #### [facility] ([id number]) [address], [address] [place] [address] Hemoglobin (Bld) [Mass/Vol] 9.1 g/dL Low 11.7-15.5 [facility] Comment on above: Performed By: #### C DILCIA CMP, HA1C #### [facility] ([id number]) [address], [address] [place] [address] MCH (RBC) [Entitic mass] 36.9 pg High 27-34 [facility] Comment on above: Performed By: #### Payton HA CMP, HA1C #### [facility] ([id number]) [address], [address] [place] [address] MCHC (RBC) [Mass/Vol] 33.7 g/dL Normal 32-36 [facility] Comment on above: Performed By: #### C DILCIA CMP, HA1C #### [facility] ([id number]) [address], [address] [place] [address] MCV (RBC) [Entitic vol] 109 fL High 80-100 [facility] Comment on above: Performed By: #### C DILCIA CMP, HA1C #### [facility] ([id number]) [address], [address] [place] [address] Platelet mean volume (Bld) [Entitic vol] 6.8 fL Low 7-12 [facility] Comment on above: Performed By: #### C DILCIA CMP, HA1C #### [facility] ([id number]) [address] [place] [address] Platelets (Bld) [#/Vol] 397 10*3/uL Normal 150-450 [facility] Comment on above: Performed By: #### C BC, CMP, HA1C #### [facility] ([id number]) [address] [place] [address] RBC COUNT 2.47 X10E12/L Low 3.80-5.20 [facility] Comment on above: Performed By: #### C BC, CMP, HA1C #### [facility] ([id number]) [address], [address] [place] [address] WBC (Bld) [#/Vol] 4.8 10*3/uL Normal 4.0-11.[address] [facility] Comment on above: Performed By: #### C BC, CMP, HA1C #### [facility] ([id number]) [address], [address] [place] [address] COMPREHENSIVE METABOLIC PANE Jj 01-21-2024 Albumin [Mass/Vol] 3.9 g/dL Normal 3.2-5.[address] [facility] Comment on above: Performed By: #### C BC, CMP, HA1C #### [facility] ([id number]) [address] [place] [address] ALP [Catalytic activity/Vol] 89 U/L Normal 39-130 [facility] Comment on above: Performed By: #### C BC, CMP, HA1C #### [facility] ([id number]) [address], [address] [place] [address] ALT [Catalytic activity/Vol] 8 U/L Normal 0-31 [facility] Comment on above: Performed By: #### C BC, CMP, HA1C #### [facility] ([id number]) [address], [address] [place] [address] Anion gap [Moles/Vol] 10 mmol/L Normal 5-15 [facility] Comment on above: Performed By: #### C BC, CMP, HA1C #### [facility] ([id number]) [address], [address] [place] [address] AST [Catalytic activity/Vol] 13 U/L Normal 0-41 [facility] Comment on above: Performed By: #### C BC, CMP, HA1C #### [facility] ([id number]) [address], [address] [place] [address] Bilirubin [Mass/Vol] 0.9 mg/dL Normal 0.3-1.2 [facility] Comment on above: Performed By: #### C DILCIA CMP, HA1C #### [facility] ([id number]) [address] [place] [address] Calcium [Mass/Vol] 10.7 mg/dL High 8.5-10.[address] [facility] Comment on above: Performed By: #### C DILCIA CMP, HA1C #### [facility] ([id number]) [address] [place] [address] Chloride [Moles/Vol] 104 mmol/L Normal 98-109 [facility] Comment on above: Performed By: #### C BC, CMP, HA1C #### [facility] ([id number]) [address] [place] [address] CO2 [Moles/Vol] 25 mmol/L Normal 22-32 [facility] Comment on above: Performed By: #### C DILCIA CMP, HA1C #### [facility] ([id number]) [address] [place] [address] Creatinine [Mass/Vol] 1.03 mg/dL High 0.40-1.00 [facility] Comment on above: Result Comment: METH OD TRACEABLE TO IDMS STANDARD Performed By: #### C DILCIA CMP, HA1C #### [facility] ([id number]) [address] [place] [address] GFR/1.73 sq M.predicted among non-blacks MDRD (S/P/Bld) [Vol rate/Area] 62 mL/min/{1.73_m2} Normal >59 [facility] Comment on above: Result Comment: Reported eGFR is based on the CKD-EPI 2020 equation that does not use a race coefficient. Performed By: #### Payton HA CMP, HA1C #### [facility] ([id number]) [address] [address] [place] [address] Glucose [Mass/Vol] 175 mg/dL High 65-[address] [facility] Comment on above: Performed By: #### Payton HA CMP, HA1C #### [facility] ([id number]) [address] [address] [place] [address] Potassium [Moles/Vol] 3.8 mmol/L Normal 3.5-5.0 [facility] Comment on above: Performed By: #### Payton HA CMP, HA1C #### [facility] ([id number]) [address] [place] [address] Protein [Mass/Vol] 7.0 g/dL Normal 6.0-8.[address] [facility] Comment on above: Performed By: #### Payton HA CMP, HA1C #### [facility] ([id number]) [address] [address] [place] [address] Sodium [Moles/Vol] 139 mmol/L Normal 134-[address] [facility] Comment on above: Performed By: #### Payton HA CMP, HA1C #### [facility] ([id number]) [address] [address] [place] [address] Urea nitrogen [Mass/Vol] 20 mg/dL Normal 5-23 [facility] Comment on above: Performed By: #### Payton HA CMP, HA1C #### [facility] ([id number]) [address] [address] [place] [address] HGB A1C (GLYCO-HGB)on 2023 Glucose [Mass/Vol] 128 mg/dL Normal [facility] Comment on above: Performed By: #### C DILCIA, CMP, HA1C #### [facility] ([id number]) [address] [address] [place] [address] HbA1c (Bld) [Mass fraction] 6.1 % High 4.4-5.6 [facility] Comment on above: Result Comment: NOTE ADA Guidelines Result HgbA1c Normal : less than 5.7 % Prediabetes : 5.7 % to 6.4 % Diabetes : > 6.4 % Use with caution in patients with abnormal hemoglobin variants as the half-life of red blood cells and in vivo glycation rates are affected. Performed By: #### C DILCIA, CMP, HA1C #### [facility] ([id number]) [address] [address] Parathyrin.intact [Mass/Vol] on 01-21-2024 PTH INTACT 130 pg/mL High 12-88 [facility] Comment on above: Performed By: #### 2 731-8 #### [facility] ([id number]) [address] [address] COMPLETE BLOOD COUNTon 08-23 Erythrocyte distribution width (RBC) [Ratio] 17.8 % High 11.5-15.0 [facility] Comment on above: Performed By: #### C BC, CMP #### [facility] ([id number]) [address] [address] [place] [address] Hematocrit (Bld) [Volume fraction] 32.9 % Low 35-47 [facility] Comment on above: Performed By: #### C BC, CMP #### [facility] ([id number]) [address] [place] [address] Hemoglobin (Bld) [Mass/Vol] 11.0 g/dL Low 11.7-15.5 [facility] Comment on above: Performed By: #### C BC, CMP #### [facility] ([id number]) [address] [place] [address] MCH (RBC) [Entitic mass] 31.5 pg Normal 27-34 [facility] Comment on above: Performed By: #### C DILCIA, CMP #### [facility] ([id number]) [address] [place] [address] MCHC (RBC) [Mass/Vol] 33.5 g/dL Normal 32-36 [facility] Comment on above: Performed By: #### C DILCIA, CMP #### [facility] ([id number]) [address] [place] [address] MCV (RBC) [Entitic vol] 94 fL Normal 80-100 [facility] Comment on above: Performed By: #### C DILCIA, CMP #### [facility] ([id number]) [address] [place] [address] Platelet mean volume (Bld) [Entitic vol] 6.8 fL Low 7-12 [facility] Comment on above: Performed By: #### C DILCIA, CMP #### [facility] ([id number]) [address] [place] [address] Platelets (Bld) [#/Vol] 432 10*3/uL Normal 150-450 [facility] Comment on above: Performed By: #### C BC, CMP #### [facility] ([id number]) [address] [place] [address] RBC COUNT 3.50 X10E12/L Low 3.80-5.20 [facility] Comment on above: Performed By: #### C DILCIA, CMP #### [facility] ([id number]) [address] [place] [address] WBC (Bld) [#/Vol] 7.1 10*3/uL Normal 4.0-11.[address] [facility] Comment on above: Performed By: #### C DILCIA, CMP #### [facility] ([id number]) [address] [place] [address] COMPREHENSIVE METABOLIC PANE [facility] 08-23-2023 Albumin [Mass/Vol] 4.2 g/dL Normal 3.2-5.[address] [facility] Comment on above: Performed By: #### C DILCIA, CMP #### [facility] ([id number]) [address] [place] [address] ALP [Catalytic activity/Vol] 115 U/L Normal 39-130 [facility] Comment on above: Performed By: #### C DILCIA, CMP #### [facility] ([id number]) [address] [place] [address] ALT [Catalytic activity/Vol] 12 U/L Normal 0-31 [facility] Comment on above: Performed By: #### C DILCIA, CMP #### [facility] ([id number]) [address] [place] [address] Anion gap [Moles/Vol] 8 mmol/L Normal 5-15 [facility] Comment on above: Performed By: #### C DILCIA, CMP #### [facility] ([id number]) [address] [place] [address] AST [Catalytic activity/Vol] 13 U/L Normal 0-41 [facility] Comment on above: Performed By: #### C BC, CMP #### [facility] ([id number]) [address] [place] [address] Bilirubin [Mass/Vol] 0.3 mg/dL Normal 0.3-1.2 [facility] Comment on above: Performed By: #### C DILCIA, CMP #### [facility] ([id number]) [address] [place] [address] Calcium [Mass/Vol] 12.0 mg/dL High 8.5-10.[address] [facility] Comment on above: Performed By: #### C DILCIA, CMP #### [facility] ([id number]) [address] [address] [place] [address] Chloride [Moles/Vol] 102 mmol/L Normal 98-109 [facility] Comment on above: Performed By: #### Payton HA, CMP #### [facility] ([id number]) [address] [address] [place] [address] CO2 [Moles/Vol] 26 mmol/L Normal 22-32 [facility] Comment on above: Performed By: #### Payton HA, CMP #### [facility] ([id number]) [address] [address] [place] [address] Creatinine [Mass/Vol] 0.80 mg/dL Normal 0.40-1.00 [facility] Comment on above: Result Comment: METH OD TRACEABLE TO IDMS STANDARD Performed By: #### C DILCIA, CMP #### [facility] ([id number]) [address] [address] [place] [address] GFR/1.73 sq M.predicted among non-blacks MDRD (S/P/Bld) [Vol rate/Area] 85 mL/min/{1.73_m2} Normal >59 [facility] Comment on above: Result Comment: Reported eGFR is based on the CKD-EPI 2020 equation that does not use a race coefficient. Performed By: #### C DILCIA, CMP #### [facility] ([id number]) [address] [place] [address] Glucose [Mass/Vol] 152 mg/dL High 65-[address] [facility] Comment on above: Performed By: #### C DILCIA, CMP #### [facility] ([id number]) [address], [facility] [address] [place] [address] Potassium [Moles/Vol] 4.5 mmol/L Normal 3.5-5.0 [facility] Comment on above: Performed By: #### C DILCIA, CMP #### [facility] ([id number]) [address] [facility] [address] [place] [address] Protein [Mass/Vol] 7.2 g/dL Normal 6.0-8.[address] [facility] Comment on above: Performed By: #### C DILCIA, CMP #### [facility] ([id number]) [address], [facility] [address] [place] [address] Sodium [Moles/Vol] 136 mmol/L Normal 134-[address] [facility] Comment on above: Performed By: #### C DILCIA, CMP #### [facility] ([id number]) [address], [facility] [address] [place] [address] Urea nitrogen [Mass/Vol] 15 mg/dL Normal 5-23 [facility] Comment on above: Performed By: #### C DILCIA, CMP #### [facility] ([id number]) [address] [place] [address] HGB A1C (GLYCO-HGB)on 2022 Glucose [Mass/Vol] 143 mg/dL Normal [facility] Comment on above: Performed By: #### C DILCIA, CMP #### [facility] ([id number]) [address] [place] [address] HbA1c (Bld) [Mass fraction] 6.6 % High 4.4-5.6 [facility] [facility] Comment on above: Result Comment: NOTE ADA Guidelines Result HgbA1c Normal : less than 5.7 % Prediabetes : 5.7 % to 6.4 % Diabetes : > 6.4 % Use with caution in patients with abnormal hemoglobin variants as the half-life of red blood cells and in vivo glycation rates are affected. Performed By: #### C BC, CMP #### [facility] ([id number]) [facility] [address] [address] MICROALBUMIN - ALBUMIN:CREAT ININE URINE RATIOon 08-23-2023 ALB/CREAT RATIO 76.0 mg/g creat High 0.0-30.0 [facility] Comment on above: Performed By: #### M ALBU #### [facility] ([id number]) [facility] [address] [address] Albumin DL <= 20 mg/L (U) [Mass/Vol] 3.0 mg/dL High 0.0-1.9 [facility] Comment on above: Performed By: #### M ALBU #### [facility] ([id number]) [address] [place] [id number] URINE CREAT 39.48 mg/dL Normal [facility] Comment on above: Performed By: #### M ALBU #### [facility] ([id number]) [address] [place] [id number] LITHIUMon 12-22-2022 Noel (Eskalith(R)), Serum 0.8 mmol/L Normal 0.5-1.2 [facility] Comment on above: Result Comment: A co ncentration of 0.5-0.8 mmol/L is advised for long-term use; concentrations of up to 1.2 mmol/L may be necessary during acute treatment. Detection Limit = 0.1 <0.1 indicates None Detected Performed By: #### O BSCRN #### [facility] [address] [place] [address] Dr. Rosangela Smyth CREATININEon 12-21-2022 Creatinine [Mass/Vol] 0.93 mg/dL Normal 0.55-1.02 [facility] Comment on above: Performed By: #### L IPID, CMP #### [facility] [address] [address] [address] Rosangela Smyth EGFR-AF [place]ER >60 Normal >=60 [facility] Comment on above: Performed By: #### L IPID, CMP #### [facility] [address] [address] [address] Rosangela Smyth EGFR-NON AF [place]ER >60 Normal >=60 [facility] Comment on above: Performed By: #### L IPID, CMP #### [facility] [address] [place] [address] Dr. Rosangela Smyth GLUCOSE BLOODon 12-21-2022 Glucose [Mass/Vol] 135 mg/dL Critically high 74-106 [facility] Comment on above: Performed By: #### L IPID, CMP #### [facility] [address] [place] [address] Dr. Rosangela Smyth LIPID PROFILEon 12-21-2022 CHOL-HDL RATIO NORM SEE BELOW Normal [facility] Comment on above: Result Comment: 3.3 - 4.4 LOW RISK 4.4 - 7.1 AVERAGE RISK 7.1 - 11.0 MODERATE RISK >11.0 HIGH RISK Performed By: #### L IPID, CMP #### [facility] [address] [place] [address] Dr. Rosangela Smyth Cholesterol [Mass/Vol] 194 mg/dL Normal <=200 [facility] Comment on above: Performed By: #### L IPID, CMP #### [facility] [address] [address] [address] Rosangela Smyth Cholesterol in HDL [Mass/Vol] 68 mg/dL Critically high 40-60 [facility] Comment on above: Performed By: #### L IPID, CMP #### [facility] [address] [address] [address] Rosangela Smyth Cholesterol in LDL [Mass/Vol] 106.8 mg/dL Normal [facility] Comment on above: Performed By: #### L IPID, CMP #### [facility] [address] [address] [address] Rosangela Smyth Cholesterol.total/C holesterol in HDL [Mass ratio] 2.9 {ratio} Normal [facility] Comment on above: Performed By: #### L IPID, CMP #### [facility] [address] [address] [address] Rosangela Smyth HDL NORMAL > or = 60 mg/dl - LO W CARDIOVASCULAR RISK <40 mg/dl - HIGH CARDIOVASCULAR RISK Normal [facility] Comment on above: Performed By: #### L IPID, CMP #### [facility] [address] [place] [address] Dr. Rosangela Smyth LDL CALC NORMAL SEE BELOW Normal [facility] Comment on above: Result Comment: <100 mg/dl OPTIMAL 100 - 129 mg/dl NEAR OR ABOVE OPTIMAL 130 - 159 mg/dl BORDERLINE HIGH 160 - 189 mg/dl HIGH >190 mg/dl VERY HIGH Performed By: #### L IPID, CMP #### [facility] [address] [place] [address] Dr. Rosangela Smyth Triglyceride [Mass/Vol] 96 mg/dL Normal <=150 [facility] Comment on above: Performed By: #### L IPID, CMP #### [facility] [address] [address] [address] Rosangela Smyth VLDL CALC 19.2 mg/dL Normal [facility] Comment on above: Performed By: #### L IPID, CMP #### [facility] [address] [place] [address] Dr. Rosangela Smyth TSHon 12-21-2022 TSH 2.649 uIU/mL Normal 0.358-3.740 [facility] Comment on above: Performed By: #### L IPID, CMP #### [facility] [address] [place] [address] Dr. Rosangela Smyth CBC AUTO DIFFon 09-25-2022 BASO # 0.0 103/ul Normal 0.0-0.1 [facility] Comment on above: Performed By: #### C BC #### [facility] [address] [address] [address] Rosangela Smyth Basophils/100 WBC (Bld) 0.0 % Critically low 0.2-2.0 [facility] Comment on above: Performed By: #### C BC #### [facility] [address] [address] [address] Rosangela Smyth EO # 0.0 103/ul Normal 0.0-0.7 [facility] Comment on above: Performed By: #### C BC #### [facility] [address] [address] [address] Rosangela Smyth Eosinophils/100 WBC (Bld) 0.0 % Critically low 0.9-7.0 [facility] Comment on above: Performed By: #### C BC #### [facility] [address] [place] [address] Dr. Rosangela Smyth Erythrocyte distribution width (RBC) [Ratio] 15.9 % Critically high 11.0-15.0 [facility] Comment on above: Performed By: #### C BC #### [facility] [address] [place] [address] Dr. Rosangela Smyth Hematocrit (Bld) [Volume fraction] 25.7 % Critically low 36.0-48.0 [facility] Comment on above: Performed By: #### C BC #### [facility] [address] [place] [address] Dr. Rosangela Smyth Hemoglobin (Bld) [Mass/Vol] 8.3 g/dL Critically low 12.0-16.0 [facility] Comment on above: Performed By: #### C BC #### [facility] [address] [address] [address] Rosangela Smyth IG # 0.03 10e3/ul Normal 0.00-0.03 [facility] Comment on above: Performed By: #### C BC #### [facility] [address] [place] [address] Dr. Rosangela Smyth IG % 0.6 % Critically high 0.0-0.5 [facility] Comment on above: Performed By: #### C BC #### [facility] [address] [address] [address] Rosangela Smyth LYMPH # 0.7 103/ul Critically low 1.2-3.8 [facility] Comment on above: Performed By: #### C BC #### [facility] [address] [place] [address] Dr. Rosangela Smyth Lymphocytes/100 WBC (Bld) 13.8 % Critically low 20.5-60.0 [facility] Comment on above: Performed By: #### C BC #### [facility] [address] [place] [address] Dr. Rosangela Smyth MANUAL DIFF REQ NO Normal [facility] Comment on above: Performed By: #### C BC #### [facility] [address] [place] [address] Dr. Rosangela Smyth MCH (RBC) [Entitic mass] 31.1 pg Normal 26.7-34.0 [facility] Comment on above: Performed By: #### C BC #### [facility] [address] [place] [address] Dr. Rosangela Smyth MCHC (RBC) [Mass/Vol] 32.3 g/dL Normal 29.9-35.2 [facility] Comment on above: Performed By: #### C BC #### [facility] [address] [place] [address] Dr. Rosangela Smyth MCV (RBC) [Entitic vol] 96.3 fL Normal 81.0-99.0 [facility] Comment on above: Performed By: #### C BC #### [facility] [address] [place] [address] Dr. Rosangela Smyth MONO # 0.3 103/ul Normal 0.3-0.8 [facility] Comment on above: Performed By: #### C BC #### [facility] [address] [place] [address] Dr. Rosangela Smyth Monocytes/100 WBC (Bld) 4.9 % Normal 1.7-12.0 [facility] Comment on above: Performed By: #### C BC #### [facility] [address] [address] [address] Rosangela Smyth NEUT # 4.3 103/ul Normal 1.4-6.5 [facility] Comment on above: Performed By: #### C BC #### [facility] [address] [address] [address] Rosangela Smyth Neutrophils/100 WBC (Bld) 80.7 % Critically high 43.0-75.0 [facility] Comment on above: Performed By: #### C BC #### [facility] [address] [address] [address] Rosangela Smyth Platelet mean volume (Bld) [Entitic vol] 9.1 fL Critically low 9.5-13.5 [facility] Comment on above: Performed By: #### C BC #### [facility] [address] [place] [address] Dr. Rosangela Smyth PLT 234 103/ul Normal 150-450 [facility] Comment on above: Performed By: #### C BC #### [facility] [address] [place] [address] Dr. Rosangela Smyth RBC 2.67 106/ul Critically low 4.20-5.40 [facility] Comment on above: Performed By: #### C BC #### [facility] [address] [place] [address] Dr. Rosangela Smyth WBC 5.4 103/ul Normal 4.0-11.0 [facility] Comment on above: Performed By: #### C BC #### [facility] [address] [place] [address] Dr. Rosangela Smyth PROF CHEM 8 (BAS METB)on Anion gap [Moles/Vol] 11.7 mmol/L Normal [facility] Comment on above: Performed By: #### L IPID, CMP #### [facility] [address] [place] [address] Dr. Rosangela Smyth Calcium [Mass/Vol] 10.5 mg/dL Critically high 8.5-10.1 [facility] Comment on above: Performed By: #### L IPID, CMP #### [facility] [address] [address] [address] Rosangela Smyth Chloride [Moles/Vol] 114 mmol/L Critically high 98-107 [facility] Comment on above: Performed By: #### L IPID, CMP #### [facility] [address] [address] [address] Rosangela Smyth CO2 [Moles/Vol] 21.9 mmol/L Normal 21.0-32.0 [facility] Comment on above: Performed By: #### L IPID, CMP #### [facility] [address] [address] [address] Rosangela Smyth Creatinine [Mass/Vol] 0.91 mg/dL Normal 0.55-1.02 [facility] Comment on above: Performed By: #### L IPID, CMP #### [facility] [address] [address] [address] Rosangela Smyth EGFR-AF [place]ER >60 Normal >=60 [facility] Comment on above: Performed By: #### L IPID, CMP #### [facility] [address] [address] [address] Rosangela Smyth EGFR-NON AF [place] >60 Normal >=60 [facility] Comment on above: Performed By: #### L IPID, CMP #### [facility] [address] [address] [address] Rosangela Smyth Glucose [Mass/Vol] 108 mg/dL Critically high 74-106 [facility] Comment on above: Performed By: #### L IPID, CMP #### [facility] [address] [address] [address] Rosangela Smyth Potassium [Moles/Vol] 3.6 mmol/L Normal 3.5-5.1 [facility] Comment on above: Performed By: #### L IPID, CMP #### [facility] [address] [address] [address] Rosangela Smyth Sodium [Moles/Vol] 144 mmol/L Normal 136-145 [facility] Comment on above: Performed By: #### L IPID, CMP #### [facility] [address] [address] [address] Rosangela Smyth Urea nitrogen [Mass/Vol] 20.0 mg/dL Critically high 7.0-18.0 [facility] Comment on above: Performed By: #### L IPID, CMP #### [facility] [address] [place] [address] Dr. Rosangela Smyth Urea nitrogen/Creatinine [Mass ratio] 22.0 mg/mg Normal [facility] Comment on above: Performed By: #### L IPID, CMP #### [facility] [address] [place] [address] Dr. Rosangela Smyth CBC AUTO DIFFon 09-24-2022 BASO # 0.0 103/ul Normal 0.0-0.1 [facility] Comment on above: Performed By: #### C BC #### [facility] [address] [place] [address] Dr. Rosangela Smyth Basophils/100 WBC (Bld) 0.0 % Critically low 0.2-2.0 [facility] Comment on above: Performed By: #### C BC #### [facility] [address] [place] [address] Dr. Rosangela Smyth EO # 0.0 103/ul Normal 0.0-0.7 [facility] Comment on above: Performed By: #### C BC #### [facility] [address] [place] [address] Dr. Rosangela Smyth Eosinophils/100 WBC (Bld) 0.0 % Critically low 0.9-7.0 [facility] Comment on above: Performed By: #### C BC #### [facility] [address] [place] [address] Dr. Rosangela Smyth Erythrocyte distribution width (RBC) [Ratio] 15.7 % Critically high 11.0-15.0 [facility] Comment on above: Performed By: #### C BC #### [facility] [address] [place] [address] Dr. Rosangela Smyth Hematocrit (Bld) [Volume fraction] 30.3 % Critically low 36.0-48.0 [facility] Comment on above: Performed By: #### C BC #### [facility] [address] [place] [address] Dr. Rosangela Smyth Hemoglobin (Bld) [Mass/Vol] 9.5 g/dL Critically low 12.0-16.0 [facility] Comment on above: Performed By: #### C BC #### [facility] [address] [place] [address] Dr. Rosangela Smyth IG # 0.02 10e3/ul Normal 0.00-0.03 [facility] Comment on above: Performed By: #### C BC #### [facility] [address] [place] [address] Dr. Rosangela Smyth IG % 0.6 % Critically high 0.0-0.5 [facility] Comment on above: Performed By: #### C BC #### [facility] [address] [place] [address] Dr. Rosangela Smyth LYMPH # 0.6 103/ul Critically low 1.2-3.8 [facility] Comment on above: Performed By: #### C BC #### [facility] [address] [place] [address] Dr. Rosangela Smyth Lymphocytes/100 WBC (Bld) 17.7 % Critically low 20.5-60.0 [facility] Comment on above: Performed By: #### C BC #### [facility] [address] [place] [address] Dr. Rosangela Smyth MANUAL DIFF REQ NO Normal [facility] Comment on above: Performed By: #### C BC #### [facility] [address] [place] [address] Dr. Rosangela Smyth MCH (RBC) [Entitic mass] 30.6 pg Normal 26.7-34.0 [facility] Comment on above: Performed By: #### C BC #### [facility] [address] [place] [address] Dr. Rosangela Smyth MCHC (RBC) [Mass/Vol] 31.4 g/dL Normal 29.9-35.2 [facility] Comment on above: Performed By: #### C BC #### [facility] [address] [address] [address] Rosangela Smyth MCV (RBC) [Entitic vol] 97.7 fL Normal 81.0-99.0 [facility] Comment on above: Performed By: #### C BC #### [facility] [address] [address] [address] Rosangela Smyth MONO # 0.1 103/ul Critically low 0.3-0.8 [facility] Comment on above: Performed By: #### C BC #### [facility] [address] [address] [address] Rosangela Smyth Monocytes/100 WBC (Bld) 2.5 % Normal 1.7-12.0 [facility] Comment on above: Performed By: #### C BC #### [facility] [address] [address] [address] Rosangela Smyth NEUT # 2.5 103/ul Normal 1.4-6.5 [facility] Comment on above: Performed By: #### C BC #### [facility] [address] [address] [address] Rosangela mSyth Neutrophils/100 WBC (Bld) 79.2 % Critically high 43.0-75.0 [facility] Comment on above: Performed By: #### C BC #### [facility] [address] [address] [address] Rosangela Smyth Platelet mean volume (Bld) [Entitic vol] 8.9 fL Critically low 9.5-13.5 [facility] Comment on above: Performed By: #### C BC #### [facility] [address] [address] [address] Rosangela Smyth PLT 218 103/ul Normal 150-450 [facility] Comment on above: Performed By: #### C BC #### [facility] [address] [address] [address] Rosangela Smyth RBC 3.10 106/ul Critically low 4.20-5.40 [facility] Comment on above: Performed By: #### C BC #### [facility] [address] [address] [address] Rosangela Smyth WBC 3.2 103/ul Critically low 4.0-11.0 [facility] Comment on above: Performed By: #### C BC #### [facility] [address] [address] [address] Rosangela Smyth POINT OF CARE GLUCOSEon 09-06 Glucose [Mass/Vol] 291 mg/dL Critically high 74-106 [facility] Comment on above: Performed By: #### P OCGLUC #### [facility] [address] [place] [address] Dr. Rosangela Smyth PROF CHEM 8 (BAS METB)on Anion gap [Moles/Vol] 14.6 mmol/L Normal [facility] Comment on above: Performed By: #### L ACT #### [facility] [address] [place] [address] Dr. Rosangela Smyth Calcium [Mass/Vol] 10.7 mg/dL Critically high 8.5-10.1 [facility] Comment on above: Performed By: #### L ACT #### [facility] [address] [place] [address] Dr. Rosangela Smyth Chloride [Moles/Vol] 113 mmol/L Critically high 98-107 [facility] Comment on above: Performed By: #### L ACT #### [facility] [address] [place] [address] Dr. Rosangela Smyth CO2 [Moles/Vol] 20.7 mmol/L Critically low 21.0-32.0 [facility] Comment on above: Performed By: #### L ACT #### [facility] [address] [place] [address] Dr. Rosangela Smyth Creatinine [Mass/Vol] 0.86 mg/dL Normal 0.55-1.02 [facility] Comment on above: Performed By: #### L ACT #### [facility] [address] [place] [address] Dr. Rosangela Smyth EGFR-AF [place]LANDER >60 Normal >=60 [facility] Comment on above: Performed By: #### L ACT #### [facility] [address] [address] [address] Rosangela Smyth EGFR-NON AF [place] >60 Normal >=60 [facility] Comment on above: Performed By: #### L ACT #### [facility] [address] [address] [address] Rosangela Smyth Glucose [Mass/Vol] 279 mg/dL Critically high 74-106 [facility] Comment on above: Performed By: #### L ACT #### [facility] [address] [address] [address] Rosangela Smyth Potassium [Moles/Vol] 4.3 mmol/L Normal 3.5-5.1 [facility] Comment on above: Performed By: #### L ACT #### [facility] [address] [address] [address] Rosangela Smyth Sodium [Moles/Vol] 144 mmol/L Normal 136-145 [facility] Comment on above: Performed By: #### L ACT #### [facility] [address] [address] [address] Rosangela Smyth Urea nitrogen [Mass/Vol] 14.0 mg/dL Normal 7.0-18.0 [facility] Comment on above: Performed By: #### L ACT #### [facility] [address] [address] [address] Rosangela Smyth Urea nitrogen/Creatinine [Mass ratio] 16.3 mg/mg Normal [facility] Comment on above: Performed By: #### L ACT #### [facility] [address] [address] [address] Rosangela Smyth CARDIAC CRYSTAL ADMITon 023 CK [Catalytic activity/Vol] 22 U/L Critically low 26-192 [facility] Comment on above: Performed By: #### L IPID, CMP #### [facility] [address] [address] [address] Rosangela Smyth CK.MB [Mass/Vol] ng/mL Normal <=3.60 [facility] Comment on above: Performed By: #### L IPID, CMP #### [facility] [address] [place] [address] Dr. Rosangela Smyth HSTROP 5.7 pg/mL Normal 4.0-51.3 [facility] Comment on above: Result Comment: CUT- OFF POINTS HAVE BEEN ESTABLISHED BASED ON THE FOURTH UNIVERSAL DEFINITIONS OF MYOCARDIAL INFARCTION. THE UPPER REFERENCE LIMIT (URL) OF TROPONIN, DEFINED THE 99TH PERCENTILE OF cTnI DISTRIBUTION IN A REFERENCE POPULATION, HAS BEEN CONFIRMED THE DECISION THRESHOLD FOR AR DIAGNOSIS. Performed By: #### L IPID, CMP #### [facility] [address] [place] [address] Dr. Rosangela Smyth JOVAN 40 ng/mL Normal 9-82 [facility] Comment on above: Performed By: #### L IPID, CMP #### [facility] [address] [place] [address] Dr. Rosangela Smyth CBC AUTO DIFFon 09-23-2022 BASO # 0.0 103/ul Normal 0.0-0.1 [facility] Comment on above: Performed By: #### L ACT #### [facility] [address] [place] [address] Dr. Rosangela Smyth Basophils/100 WBC (Bld) 0.0 % Critically low 0.2-2.0 [facility] Comment on above: Performed By: #### L ACT #### [facility] [address] [place] [address] Dr. Rosangela Smyth EO # 0.1 103/ul Normal 0.0-0.7 [facility] Comment on above: Performed By: #### L ACT #### [facility] [address] [place] [address] Dr. Rosangela Smyth Eosinophils/100 WBC (Bld) 1.8 % Normal 0.9-7.0 [facility] Comment on above: Performed By: #### L ACT #### [facility] [address] [place] [address] Dr. Rosangela Smyth Erythrocyte distribution width (RBC) [Ratio] 15.6 % Critically high 11.0-15.0 [facility] Comment on above: Performed By: #### L ACT #### [facility] [address] [address] [address] Rosangela Smyth Hematocrit (Bld) [Volume fraction] 26.0 % Critically low 36.0-48.0 [facility] Comment on above: Performed By: #### L ACT #### [facility] [address] [address] [address] Rosangela Smyth Hemoglobin (Bld) [Mass/Vol] 8.5 g/dL Critically low 12.0-16.0 [facility] Comment on above: Performed By: #### L ACT #### [facility] [address] [address] [address] Rosangela Smyth IG # 0.02 10e3/ul Normal 0.00-0.03 [facility] Comment on above: Performed By: #### L ACT #### [facility] [address] [address] [address] Rosangela Smyth IG % 0.5 % Normal 0.0-0.5 [facility] Comment on above: Performed By: #### L ACT #### [facility] [address] [address] [address] Rosangela Smyth LYMPH # 0.9 103/ul Critically low 1.2-3.8 [facility] Comment on above: Performed By: #### L ACT #### [facility] [address] [address] [address] Rosangela Smyth Lymphocytes/100 WBC (Bld) 24.0 % Normal 20.5-60.0 [facility] Comment on above: Performed By: #### L ACT #### [facility] [address] [address] [address] Rosangela Smyth MANUAL DIFF REQ NO Normal [facility] Comment on above: Performed By: #### L ACT #### [facility] [address] [address] [address] Rosangela Smyth MCH (RBC) [Entitic mass] 31.3 pg Normal 26.7-34.0 [facility] Comment on above: Performed By: #### L ACT #### [facility] [address] [address] [address] Rosangela Smyth MCHC (RBC) [Mass/Vol] 32.7 g/dL Normal 29.9-35.2 [facility] Comment on above: Performed By: #### L ACT #### [facility] [address] [address] [address] Rosangela Smyth MCV (RBC) [Entitic vol] 95.6 fL Normal 81.0-99.0 [facility] Comment on above: Performed By: #### L ACT #### [facility] [address] [address] [address] Rosangela Smyth MONO # 0.2 103/ul Critically low 0.3-0.8 [facility] Comment on above: Performed By: #### L ACT #### [facility] [address] [address] [address] Rosangela Smyth Monocytes/100 WBC (Bld) 4.0 % Normal 1.7-12.0 [facility] Comment on above: Performed By: #### L ACT #### [facility] [address] [address] [address] Rosangela Smyth NEUT # 2.6 103/ul Normal 1.4-6.5 [facility] Comment on above: Performed By: #### L ACT #### [facility] [address] [address] [address] Rosangela Smyth Neutrophils/100 WBC (Bld) 69.7 % Normal 43.0-75.0 [facility] Comment on above: Performed By: #### L ACT #### [facility] [address] [address] [address] Rosangela Smyth Platelet mean volume (Bld) [Entitic vol] 9.1 fL Critically low 9.5-13.5 [facility] Comment on above: Performed By: #### L ACT #### [facility] [address] [address] [address] Rosangela Smyth PLT 244 103/ul Normal 150-450 [facility] Comment on above: Performed By: #### L ACT #### [facility] [address] [address] [address] Rosangela Smyth RBC 2.72 106/ul Critically low 4.20-5.40 [facility] Comment on above: Performed By: #### L ACT #### [facility] [address] [address] [address] Rosangela Smyth WBC 3.8 103/ul Critically low 4.0-11.0 The [facility] Comment on above: Performed By: #### L ACT #### [facility] [address] [address] [address] Rosangela Smyth BASO # 0.0 103/ul Normal 0.0-0.1 [facility] Comment on above: Performed By: #### L IPID, CMP #### [facility] [address] [address] [address] Rosangela Smyth Basophils/100 WBC (Bld) 0.3 % Normal 0.2-2.0 [facility] Comment on above: Performed By: #### L IPID, CMP #### [facility] [address] [address] [address] Rosangela Smyth EO # 0.0 103/ul Normal 0.0-0.7 [facility] Comment on above: Performed By: #### L IPID, CMP #### [facility] [address] [address] [address] Rosangela Smyth Eosinophils/100 WBC (Bld) 1.1 % Normal 0.9-7.0 [facility] Comment on above: Performed By: #### L IPID, CMP #### [facility] [address] [address] [address] Rosangela Smyth Erythrocyte distribution width (RBC) [Ratio] 15.5 % Critically high 11.0-15.0 [facility] Comment on above: Performed By: #### L IPID, CMP #### [facility] [address] [place] [address] Dr. Rosangela Smyth Hematocrit (Bld) [Volume fraction] 31.9 % Critically low 36.0-48.0 [facility] Comment on above: Performed By: #### L IPID, CMP #### [facility] [address] [address] [address] Rosangela Smyth Hemoglobin (Bld) [Mass/Vol] 10.4 g/dL Critically low 12.0-16.0 [facility] Comment on above: Performed By: #### L IPID, CMP #### [facility] [address] [address] [address] Rosangela Smyth IG # 0.03 10e3/ul Normal 0.00-0.03 [facility] Comment on above: Performed By: #### L IPID, CMP #### [facility] [address] [place] [address] Dr. Rosangela Smyth IG % 0.8 % Critically high 0.0-0.5 [facility] Comment on above: Performed By: #### L IPID, CMP #### [facility] [address] [place] [address] Dr. Rosangela Smyth LYMPH # 1.0 103/ul Critically low 1.2-3.8 The [facility] Comment on above: Performed By: #### L IPID, CMP #### [facility] [address] [place] [address] Dr. Rosangela Smyth Lymphocytes/100 WBC (Bld) 26.4 % Normal 20.5-60.0 [facility] Comment on above: Performed By: #### L IPID, CMP #### [facility] [address] [place] [address] Dr. Rosangela Smyth MANUAL DIFF REQ NO Normal [facility] Comment on above: Performed By: #### L IPID, CMP #### [facility] [address] [place] [address] Dr. Rosangela Smyth MCH (RBC) [Entitic mass] 30.7 pg Normal 26.7-34.0 [facility] Comment on above: Performed By: #### L IPID, CMP #### [facility] [address] [place] [address] Dr. Rosangela Smyth MCHC (RBC) [Mass/Vol] 32.6 g/dL Normal 29.9-35.2 [facility] Comment on above: Performed By: #### L IPID, CMP #### [facility] [address] [place] [address] Dr. Rosangela Smyth MCV (RBC) [Entitic vol] 94.1 fL Normal 81.0-99.0 [facility] Comment on above: Performed By: #### L IPID, CMP #### [facility] [address] [place] [address] Dr. Rosangela Smyth MONO # 0.1 103/ul Critically low 0.3-0.8 [facility] Comment on above: Performed By: #### L IPID, CMP #### [facility] [address] [place] [address] Dr. Rosangela Smyth Monocytes/100 WBC (Bld) 3.2 % Normal 1.7-12.0 [facility] Comment on above: Performed By: #### L IPID, CMP #### [facility] [address] [place] [address] Dr. Rosangela Smyth NEUT # 2.5 103/ul Normal 1.4-6.5 [facility] Comment on above: Performed By: #### L IPID, CMP #### [facility] [address] [place] [address] Dr. Rosangela Smyth Neutrophils/100 WBC (Bld) 68.2 % Normal 43.0-75.0 [facility] Comment on above: Performed By: #### L IPID, CMP #### [facility] [address] [place] [address] Dr. Rosangela Smyth Platelet mean volume (Bld) [Entitic vol] 8.8 fL Critically low 9.5-13.5 [facility] Comment on above: Performed By: #### L IPID, CMP #### [facility] [address] [place] [address] Dr. Rosangela Smyth PLT 242 103/ul Normal 150-450 [facility] Comment on above: Performed By: #### L IPID, CMP #### [facility] [address] [place] [address] Dr. Rosangela Smyth RBC 3.39 106/ul Critically low 4.20-5.40 [facility] Comment on above: Performed By: #### L IPID, CMP #### [facility] [address], [place] [address] Dr. Rosangela Smyth WBC 3.7 103/ul Critically low 4.0-11.0 [facility] Comment on above: Performed By: #### L IPID, CMP #### [facility] [address], [place] [address] Dr. Rosangela Smyth CTA CHEST WO W CONon 023 CTA CHEST WO W CON EXAMINATION: CTA NOLAN ST WO W CON HISTORY: SHORTNESS OF BREATH [...] KWAN MADRID Date: 2022-09-23 01:51 Normal [facility] CULTURE BLOODon 09-23-2022 Microscopic examination of blood, culture Culture Observations: NO GROWTH AT 5 DAYS. Normal [facility] Comment on above: Performed By: #### L IPID, CMP #### [facility] [address], [place] [address] Dr. Rosangela Smyth Microscopic examination of blood, culture Culture Observations: NO GROWTH AT 5 DAYS. Normal [facility] Comment on above: Performed By: #### L IPID, CMP #### [facility] [address] [place] [address] [address] [address] Rosangela Smyth Covid-19 PCR ([facility])on 09-06 SARS-CoV-2 (COVID-19) RNA RICH+probe Ql (Unsp spec) Detected Abnormal NOT DETECTED [facility] Comment on above: Result Comment: This test is not yet approved or cleared by the [place] FDA. When there are no FDA-approved or cleared tests available, and other criteria are met, FDA can make tests available under an emergency access mechanism called an Emergency Use Authorization (EUA). The EUA for this test is supported by the [place] of Health and Human Service's declaration that [...] used). Performed By: #### O BSCRN #### [facility] [address] [place] [address] [address] [address] Rosangela Smyth D-DIMERon 09-23-2022 D-DIMER 0.78 mg/L FEU Critically high <=0.59 [facility] Comment on above: Performed By: #### O BSCRN #### [facility] [address] [place] [address] [address] [address] Rosangela Smyth D-DIMER COMMENTS SEE BELOW Normal [facility] Comment on above: Result Comment: Incr eases [...] hospitalization. Performed By: #### O BSCRN #### [facility] [address] [address] [address] Rosangela EASLEY URINE PROFILEon 3 Bilirubin Ql (U) Negative Normal NEGATIVE [facility] Comment on above: Performed By: #### L IPID, CMP #### [facility] [address] [place] [address] Dr. Rosangela Smyth Clarity (U) CLEAR Normal CLEAR [facility] Comment on above: Performed By: #### L IPID, CMP #### [facility] [address] [address] [address] Rosangela Smyth Color (U) LT. YELLOW Normal YELLOW [facility] Comment on above: Performed By: #### L IPID, CMP #### [facility] [address] [place] [address] Dr. Rosangela ANAND A micrscopic examination will be performed if indicated. Normal [facility] Comment on above: Performed By: #### L IPID, CMP #### [facility] [address] [place] [address] Dr. Rosangela Smyth Glucose Ql (U) 250 mg/dl Abnormal NEGATIVE The [facility] Comment on above: Performed By: #### L IPID, CMP #### [facility] [address] [place] [address] Dr. Rosangela Smyth Hemoglobin Ql (U) Negative Normal NEGATIVE The [facility] Comment on above: Performed By: #### L IPID, CMP #### [facility] [address] [address] [address] Rosangela Smyth Ketones Ql (U) Negative Normal NEGATIVE The [facility] Comment on above: Performed By: #### L IPID, CMP #### [facility] [address] [place] [address] Dr. Rosangela Smyth LEUKOCYTES Negative Normal NEGATIVE [facility] Comment on above: Performed By: #### L IPID, CMP #### [facility] [address] [place] [address] Dr. Rosangela Smyth Nitrite Ql (U) Negative Normal NEGATIVE [facility] Comment on above: Performed By: #### L IPID, CMP #### [facility] [address] [place] [address] Dr. Rosangela Smyth pH (U) 6.0 [pH] Normal 5-9 [facility] Comment on above: Performed By: #### L IPID, CMP #### [facility] [address] [place] [address] Dr. Rosangela Smyth SPEC GRAVITY 1.015 Normal 1.005-<=1.02 5 [facility] Comment on above: Performed By: #### L IPID, CMP #### [facility] [address] [place] [address] Dr. Rosangela Smyth UA PROTEIN TRACE Normal NEGATIVE/ TRACE [facility] Comment on above: Performed By: #### L IPID, CMP #### [facility] [address] [place] [address] Dr. Rosangela Smyth UR MICRO IND NOT INDICATED Normal [facility] Comment on above: Performed By: #### L IPID, CMP #### [facility] [address] [place] [address] Dr. Rosangela Smyth Urobilinogen Qn (U) 0.2 {Estevan'U}/dL Normal 0.2 - 1. 0 [facility] Comment on above: Performed By: #### L IPID, CMP #### [facility] [address] [place] [address] Dr. Rosangela Smyth INFLUENZA A AND B AGon 09-23 INFLUENZA A AG Negative Normal NEGATIVE SEE COMMENT [facility] Comment on above: Performed By: #### L IPID, CMP #### [facility] [address] [place] [address] Dr. Rosangela Smyth INFLUENZA B AG Negative Normal NEGATIVE SEE COMMENT [facility] Comment on above: Performed By: #### L IPID, CMP #### [facility] [address] [place] [address] Dr. Rosangela Smyth LACTATE/LACTIC ACIDon 2022 Lactate [Moles/Vol] 1.4 mmol/L Normal 0.4-1.9 [facility] Comment on above: Performed By: #### O BSCRN #### [facility] [address] [place] [address] Dr. Rosangela Smyth Lactate [Moles/Vol] 0.9 mmol/L Normal 0.4-1.9 [facility] Comment on above: Performed By: #### C BC #### [facility] [address] [place] [address] Dr. Rosangela Smyth Lactate [Moles/Vol] 1.4 mmol/L Normal 0.4-1.9 [facility] Comment on above: Performed By: #### L ACT #### [facility] [address] [place] [address] Dr. Rosangela Smyth POINT OF CARE GLUCOSEon 09-06 Glucose [Mass/Vol] 421 mg/dL Critically high 74-106 [facility] Comment on above: Performed By: #### O BSCRN #### [facility] [address] [place] [address] Dr. Rosangela Smyth PROF 14(COMP METB)on 023 Albumin [Mass/Vol] 2.7 g/dL Critically low 3.4-5.0 [facility] Comment on above: Performed By: #### O BSCRN #### [facility] [address] [place] [address] Dr. Rosangela Smyth Albumin/Globulin [Mass ratio] 0.7 {ratio} Normal [facility] Comment on above: Performed By: #### O BSCRN #### [facility] [address] [place] [address] Dr. Rosangela Smyth ALP [Catalytic activity/Vol] 76 U/L Normal 46-116 [facility] Comment on above: Performed By: #### O BSCRN #### [facility] [address] [place] [address] Dr. Rosangela Smyth ALT [Catalytic activity/Vol] 19 U/L Normal 14-59 [facility] Comment on above: Performed By: #### O BSCRN #### [facility] [address] [place] [address] Dr. Rosangela Smyth Anion gap [Moles/Vol] 11.9 mmol/L Normal [facility] Comment on above: Performed By: #### O BSCRN #### [facility] [address] [place] [address] Dr. Rosangela Smyth AST [Catalytic activity/Vol] 20 U/L Normal 15-37 [facility] Comment on above: Performed By: #### O BSCRN #### [facility] [address] [place] [address] Dr. Rosangela Smyth Bilirubin [Mass/Vol] 0.3 mg/dL Normal 0.2-1.0 [facility] Comment on above: Performed By: #### O BSCRN #### [facility] [address] [place] [address] Dr. Rosangela Smyth Calcium [Mass/Vol] 10.2 mg/dL Critically high 8.5-10.1 [facility] Comment on above: Performed By: #### O BSCRN #### [facility] [address] [place] [address] Dr. Rosangela Smyth Chloride [Moles/Vol] 103 mmol/L Normal 98-107 [facility] Comment on above: Performed By: #### O BSCRN #### [facility] [address] [place] [address] Dr. Rosangela Smyth CO2 [Moles/Vol] 23.7 mmol/L Normal 21.0-32.0 [facility] Comment on above: Performed By: #### O BSCRN #### [facility] [address] [place] [address] Dr. Rosangela Smyth Creatinine [Mass/Vol] 0.90 mg/dL Normal 0.55-1.02 [facility] Comment on above: Performed By: #### O BSCRN #### [facility] [address] [place] [address] Dr. Rosangela Smyth EGFR-AF [place] >60 Normal >=60 [facility] Comment on above: Performed By: #### O BSCRN #### [facility] [address] [place] [address] Dr. Rosangela Smyth EGFR-NON AF [place] >60 Normal >=60 [facility] Comment on above: Performed By: #### O BSCRN #### [facility] [address] [place] [address] Dr. Rosangela Smyth Globulin (S) [Mass/Vol] 3.9 g/dL Normal [facility] Comment on above: Performed By: #### O BSCRN #### [facility] [address] [place] [address] Dr. Rosangela Smyth Glucose [Mass/Vol] 237 mg/dL Critically high 74-106 [facility] Comment on above: Performed By: #### O BSCRN #### [facility] [address] [place] [address] Dr. Rosangela Smyth Potassium [Moles/Vol] 3.6 mmol/L Normal 3.5-5.1 [facility] Comment on above: Performed By: #### O BSCRN #### [facility] [address] [place] [address] Dr. Rosangela Smyth Protein [Mass/Vol] 6.6 g/dL Normal 6.4-8.2 [facility] Comment on above: Performed By: #### O BSCRN #### [facility] [address] [place] [address] Dr. Rosangela Smyth Sodium [Moles/Vol] 135 mmol/L Critically low 136-145 Th [facility] Comment on above: Performed By: #### O BSCRN #### [facility] [address] [place] [address] Dr. Rosangela Smyth Urea nitrogen [Mass/Vol] 11.0 mg/dL Normal 7.0-18.0 [facility] Comment on above: Performed By: #### O BSCRN #### [facility] [address] [place] [address] Dr. Rosangela Smyth Urea nitrogen/Creatinine [Mass ratio] 12.2 mg/mg Normal [facility] Comment on above: Performed By: #### O BSCRN #### [facility] [address] [place] [address] Dr. Rosangela Smyth PROF CHEM 8 (BAS METB)on Anion gap [Moles/Vol] 10.7 mmol/L Normal [facility] Comment on above: Performed By: #### L IPID, CMP #### [facility] [address] [address] [address] Rosangela Smyth Calcium [Mass/Vol] 10.3 mg/dL Critically high 8.5-10.1 [facility] Comment on above: Performed By: #### L IPID, CMP #### [facility] [address] [address] [address] Rosangela Smyth Chloride [Moles/Vol] 97 mmol/L Critically low 98-107 [facility] Comment on above: Performed By: #### L IPID, CMP #### [facility] [address] [place] [address] Dr. Rosangela Smyth CO2 [Moles/Vol] 26.1 mmol/L Normal 21.0-32.0 [facility] Comment on above: Performed By: #### L IPID, CMP #### [facility] [address] [address] [address] Rosangela Smyth Creatinine [Mass/Vol] 1.05 mg/dL Critically high 0.55-1.02 [facility] Comment on above: Performed By: #### L IPID, CMP #### [facility] [address] [place] [address] Dr. Rosangela Smyth EGFR-AF [place] >60 Normal >=60 [facility] Comment on above: Performed By: #### L IPID, CMP #### [facility] [address] [place] [address] Dr. Rosangela Smtyh EGFR-NON AF [place] 54 mL/min/1.73m2 Critically low >=60 [facility] Comment on above: Performed By: #### L IPID, CMP #### [facility] [address] [place] [address] Dr. Rosangela Smyth Glucose [Mass/Vol] 255 mg/dL Critically high 74-106 [facility] Comment on above: Performed By: #### L IPID, CMP #### [facility] [address] [address] [address] Rosangela Smyth Potassium [Moles/Vol] 3.8 mmol/L Normal 3.5-5.1 [facility] Comment on above: Performed By: #### L IPID, CMP #### [facility] [address] [address] [address] Rosangela Smyth Sodium [Moles/Vol] 130 mmol/L Critically low 136-145 Th e [facility] Comment on above: Performed By: #### L IPID, CMP #### [facility] [address] [address] [address] Rosangela Smyth Urea nitrogen [Mass/Vol] 18.0 mg/dL Normal 7.0-18.0 [facility] Comment on above: Performed By: #### L IPID, CMP #### [facility] [address] [place] [address] Dr. Rosangela Smyth Urea nitrogen/Creatinine [Mass ratio] 17.1 mg/mg Normal [facility] Comment on above: Performed By: #### L IPID, CMP #### [facility] [address] [place] [address] Dr. Rosangela Smyth XR CHEST 1 09-23-2022 XR CHEST 1 V EXAMINATION: XR CHES T 1 V HISTORY: SHORTNESS OF BREATH COMPARISON: [...] by: JUSTINA CURRAN Date: 2022-09-23 16:33 Normal [facility] XR CHEST 1 V XR CHEST 1 V 09/22/19 23 10:30 PM EST CLINICAL INDICATION: Cough COMPARISON: [...] RAUL MARVIN Date: 2022-09-23 00:05 Normal [facility] CARDIAC CRYSTAL ADMITon 023 CK [Catalytic activity/Vol] 44 U/L Normal 26-192 [facility] Comment on above: Performed By: #### C NERIS, CMADM #### [facility] [address] [place] [address] Dr. Rosangela Smyth CK.MB [Mass/Vol] ng/mL Normal <=3.60 [facility] Comment on above: Performed By: #### C NERIS, CMADM #### [facility] [address] [place] [address] Dr. Rosangela Smyth HSTROP 6.3 pg/mL Normal 4.0-51.3 [facility] Comment on above: Result Comment: CUT- OFF POINTS HAVE BEEN ESTABLISHED BASED ON THE FOURTH UNIVERSAL DEFINITIONS OF MYOCARDIAL INFARCTION. THE UPPER REFERENCE LIMIT (URL) OF TROPONIN, DEFINED THE 99TH PERCENTILE OF cTnI DISTRIBUTION IN A REFERENCE POPULATION, HAS BEEN CONFIRMED THE DECISION THRESHOLD FOR AR DIAGNOSIS. Performed By: #### C NERIS, CMADM #### [facility] [address] [place] [address] Dr. Rosangela Smyth JOVAN 39 ng/mL Normal 9-82 [facility] Comment on above: Performed By: #### C NERIS, CMADM #### [facility] [address] [place] [id number] Dr. Rosangela Smyth CBC AUTO DIFFon 09-12-2022 BASO # 0.0 103/ul Normal 0.0-0.1 [facility] Comment on above: Performed By: #### L ACT #### [facility] [address] [place] [address] Dr. Rosangela Smyth Basophils/100 WBC (Bld) 0.3 % Normal 0.2-2.0 [facility] Comment on above: Performed By: #### L ACT #### [facility] [address] [address] [address] Rosangela Smyth EO # 0.1 103/ul Normal 0.0-0.7 [facility] Comment on above: Performed By: #### L ACT #### [facility] [address] [place] [address] Dr. Rosangela Smyth Eosinophils/100 WBC (Bld) 1.4 % Normal 0.9-7.0 [facility] Comment on above: Performed By: #### L ACT #### [facility] [address] [place] [address] Dr. Rosangela Smyth Erythrocyte distribution width (RBC) [Ratio] 16.1 % Critically high 11.0-15.0 [facility] Comment on above: Performed By: #### L ACT #### [facility] [address] [place] [address] Dr. Rosangela Smyth Hematocrit (Bld) [Volume fraction] 27.6 % Critically low 36.0-48.0 [facility] Comment on above: Performed By: #### L ACT #### [facility] [address] [place] [address] Dr. Rosangela Smyth Hemoglobin (Bld) [Mass/Vol] 9.2 g/dL Critically low 12.0-16.0 [facility] Comment on above: Performed By: #### L ACT #### [facility] [address] [place] [address] Dr. Rosangela Smyth IG # 0.01 10e3/ul Normal 0.00-0.03 [facility] Comment on above: Performed By: #### L ACT #### [facility] [address] [place] [address] Dr. Rosangela Smyth IG % 0.3 % Normal 0.0-0.5 [facility] Comment on above: Performed By: #### L ACT #### [facility] [address] [place] [address] Dr. Rosangela Smyth LYMPH # 0.6 103/ul Critically low 1.2-3.8 The [facility] Comment on above: Performed By: #### L ACT #### [facility] [address] [address] [address] Rosangela Smyth Lymphocytes/100 WBC (Bld) 17.1 % Critically low 20.5-60.0 [facility] Comment on above: Performed By: #### L ACT #### [facility] [address] [place] [address] Dr. Rosangela Smyth MANUAL DIFF REQ NO Normal [facility] Comment on above: Performed By: #### L ACT #### [facility] [address] [address] [address] Rosangela Smyth MCH (RBC) [Entitic mass] 30.6 pg Normal 26.7-34.0 [facility] Comment on above: Performed By: #### L ACT #### [facility] [address] [place] [address] Dr. Rosangela Smyth MCHC (RBC) [Mass/Vol] 33.3 g/dL Normal 29.9-35.2 [facility] Comment on above: Performed By: #### L ACT #### [facility] [address] [place] [address] Dr. Rosangela Smyth MCV (RBC) [Entitic vol] 91.7 fL Normal 81.0-99.0 [facility] Comment on above: Performed By: #### L ACT #### [facility] [address] [place] [address] Dr. Rosangela Smyth MONO # 0.4 103/ul Normal 0.3-0.8 [facility] Comment on above: Performed By: #### L ACT #### [facility] [address] [place] [address] Dr. Rosangela Smyth Monocytes/100 WBC (Bld) 10.0 % Normal 1.7-12.0 [facility] Comment on above: Performed By: #### L ACT #### [facility] [address] [place] [address] Dr. Rosangela Smyth NEUT # 2.6 103/ul Normal 1.4-6.5 [facility] Comment on above: Performed By: #### L ACT #### [facility] [address] [place] [address] Dr. Rosangela Smyth Neutrophils/100 WBC (Bld) 70.9 % Normal 43.0-75.0 [facility] Comment on above: Performed By: #### L ACT #### [facility] [address] [place] [address] Dr. Rosangela Smyth Platelet mean volume (Bld) [Entitic vol] 8.2 fL Critically low 9.5-13.5 [facility] Comment on above: Performed By: #### L ACT #### [facility] [address] [place] [address] Dr. Rosangela Smyth PLT 277 103/ul Normal 150-450 [facility] Comment on above: Performed By: #### L ACT #### [facility] [address] [place] [address] Dr. Rosangela Smyth RBC 3.01 106/ul Critically low 4.20-5.40 [facility] Comment on above: Performed By: #### L ACT #### [facility] [address] [place] [address] Dr. Rosangela Smyth WBC 3.7 103/ul Critically low 4.0-11.0 [facility] Comment on above: Performed By: #### L ACT #### [facility] [address] [place] [address] Dr. Rosangela Smyth GROUP A STREP CULTUREon S. pyogenes Ag Ql (Unsp spec) Culture Observations: NEGATIVE FOR GROUP A STREPTOCOCCUS. Normal [facility] Comment on above: Performed By: #### L ACT #### [facility] [address] [place] [address] Dr. Rosangela Smyth PROF 14(COMP METB)on 023 Albumin [Mass/Vol] 3.8 g/dL Normal 3.4-5.0 [facility] Comment on above: Performed By: #### C VIRAL CORDON #### [facility] [address] [place] [address] Dr. Rosangela Smyth Albumin/Globulin [Mass ratio] 1.1 {ratio} Normal [facility] Comment on above: Performed By: #### C VIRAL CORDON #### [facility] [address] [address] [address] Rosangela Smyth ALP [Catalytic activity/Vol] 88 U/L Normal 46-116 [facility] Comment on above: Performed By: #### C MP, CMADM #### [facility] [address] [address] [address] Rosangela Smyth ALT [Catalytic activity/Vol] 31 U/L Normal 14-59 [facility] Comment on above: Performed By: #### C MP, CMADM #### [facility] [address] [address] [address] Rosangela Smyth Anion gap [Moles/Vol] 10.2 mmol/L Normal [facility] Comment on above: Performed By: #### C MP, CMADM #### [facility] [address] [address] [address] Rosangela Smyth AST [Catalytic activity/Vol] 24 U/L Normal 15-37 [facility] Comment on above: Performed By: #### C NERIS, CMADM #### [facility] [address] [address] [address] Rosangela Smyth Bilirubin [Mass/Vol] 0.3 mg/dL Normal 0.2-1.0 [facility] Comment on above: Performed By: #### C MP, CMADM #### [facility] [address] [address] [address] Rosangela Smyth Calcium [Mass/Vol] 11.1 mg/dL Critically high 8.5-10.1 [facility] Comment on above: Performed By: #### C MP, CMADM #### [facility] [address] [address] [address] Rosangela Smyth Chloride [Moles/Vol] 101 mmol/L Normal 98-107 [facility] Comment on above: Performed By: #### C MP, CMADM #### [facility] [address] [address] [address] Rosangela Smyth CO2 [Moles/Vol] 26.4 mmol/L Normal 21.0-32.0 The [facility] Comment on above: Performed By: #### C MP, CMADM #### [facility] [address] [address] [address] Rosangela Smyth Creatinine [Mass/Vol] 1.15 mg/dL Critically high 0.55-1.02 [facility] Comment on above: Performed By: #### C MP, CMADM #### [facility] [address] [address] [address] Rosangela Smyth EGFR-AF [place] 59 mL/min/1.73m2 Critically low >=60 [facility] Comment on above: Performed By: #### C MP, CMADM #### [facility] [address] [address] [address] Rosangela Smyth EGFR-NON AF [place] 48 mL/min/1.73m2 Critically low >=60 [facility] Comment on above: Performed By: #### C MP, CMADM #### [facility] [address] [address] [address] Rosangela Smyth Globulin (S) [Mass/Vol] 3.6 g/dL Normal [facility] Comment on above: Performed By: #### C MP, CMADM #### [facility] [address] [address] [address] Rosangela Smyth Glucose [Mass/Vol] 174 mg/dL Critically high 74-106 [facility] Comment on above: Performed By: #### C MP, CMADM #### [facility] [address] [address] [address] Rosangela Smyth Potassium [Moles/Vol] 4.6 mmol/L Normal 3.5-5.1 [facility] Comment on above: Performed By: #### C MP, CMADM #### [facility] [address] [address] [address] Rosangela Smyth Protein [Mass/Vol] 7.4 g/dL Normal 6.4-8.2 [facility] Comment on above: Performed By: #### C MP, CMADM #### [facility] [address] [address] [address] Rosangela Smyth Sodium [Moles/Vol] 133 mmol/L Critically low 136-145 Th e [facility] Comment on above: Performed By: #### C MP, CMADM #### [facility] [address] [address] [address] Rosangela Smyth Urea nitrogen [Mass/Vol] 14.0 mg/dL Normal 7.0-18.0 [facility] Comment on above: Performed By: #### C MP, CMADM #### [facility] [address] [address] [address] Rosangela Smyth Urea nitrogen/Creatinine [Mass ratio] 12.2 mg/mg Normal [facility] Comment on above: Performed By: #### C MP, CMADM #### [facility] [address] [address] [address] Rosangela Smyth STREPT SCREENon 09-12-2022 STREP SCREEN A Negative Normal NEGATIVE [facility] Comment on above: Performed By: #### L ACT #### [facility] [address] [address] [address] Rosangela Smyth XR CHEST 1 Von 09-12-2022 XR CHEST 1 V EXAMINATION: XR CHES T 1 V HISTORY: COUGH COMPARISON: XR chest 07/17/2021 FINDINGS: LUNGS: No significant pulmonary parenchymal abnormalities. VASCULATURE: No increased pulmonary vasculature. PLEURA: No pneumothorax, effusion, or pleural thickening. CARDIAC: No cardiomegaly or cardiac silhouette abnormality. MEDIASTINUM: No visible mass or adenopathy. BONES: No fracture or visible bone lesion. OTHER: Negative. IMPRESSION: 1. Normal examination. Electronically authenticated by: LINNETTE AVENDANO Date: 2022-09-12 13:23 Normal [facility] Progress Noteson 09-03-2022 [employer] Staff Member Authentication Interface Message Text EMERGENCY TRIAGE, TREAT AND TRANSPORT (ET3) DOCUMENTATION OF TELEHEALTH VISIT Date / Time: 03/18/2022 / 15:00 Name: Kaya Schilling : 1965 SSN: (Not on file) EMS Agency: [facility] [x] Verbal consent obtained [] Implied [...] Completed by: Devon Hays MD Normal [facility] AMYLASEon 07-08-2022 Amylase [Catalytic activity/Vol] 49 U/L Normal 25-115 [facility] Comment on above: Performed By: #### C BC #### [facility] [address] [address] [address] Rosangela Smyth CBC AUTO DIFFon 07-08-2022 BASO # 0.0 103/ul Normal 0.0-0.1 [facility] Comment on above: Performed By: #### O BSCRN #### [facility] [address] [place] [address] Dr. Rosangela Smyth Basophils/100 WBC (Bld) 0.4 % Normal 0.2-2.0 [facility] Comment on above: Performed By: #### O BSCRN #### [facility] [address] [place] [address] Dr. Rosangela Smyth EO # 0.2 103/ul Normal 0.0-0.7 [facility] Comment on above: Performed By: #### O BSCRN #### [facility] [address] [place] [address] Dr. Rosangela Smyth Eosinophils/100 WBC (Bld) 4.4 % Normal 0.9-7.0 [facility] Comment on above: Performed By: #### O BSCRN #### [facility] [address] [place] [address] Dr. Rosangela Smyth Erythrocyte distribution width (RBC) [Ratio] 17.9 % Critically high 11.0-15.0 [facility] Comment on above: Performed By: #### O BSCRN #### [facility] [address] [place] [address] Dr. Rosangela Smyth Hematocrit (Bld) [Volume fraction] 30.4 % Critically low 36.0-48.0 [facility] Comment on above: Performed By: #### O BSCRN #### [facility] [address] [place] [address] Dr. Rosangela Smyth Hemoglobin (Bld) [Mass/Vol] 9.6 g/dL Critically low 12.0-16.0 [facility] Comment on above: Performed By: #### O BSCRN #### [facility] [address] [place] [address] Dr. Rosangela Smyth IG # 0.02 10e3/ul Normal 0.00-0.03 [facility] Comment on above: Performed By: #### O BSCRN #### [facility] [address] [address] [address] Rosangela Smyth IG % 0.4 % Normal 0.0-0.5 [facility] Comment on above: Performed By: #### O BSCRN #### [facility] [address] [address] [address] Rosangela Smyth LYMPH # 1.4 103/ul Normal 1.2-3.8 [facility] Comment on above: Performed By: #### O BSCRN #### [facility] [address] [address] [address] Rosangela Smyth Lymphocytes/100 WBC (Bld) 28.6 % Normal 20.5-60.0 [facility] Comment on above: Performed By: #### O BSCRN #### [facility] [address] [place] [address] Dr. Rosangela Smtyh MANUAL DIFF REQ NO Normal [facility] Comment on above: Performed By: #### O BSCRN #### [facility] [address] [place] [address] Dr. Rosangela Smyth MCH (RBC) [Entitic mass] 30.8 pg Normal 26.7-34.0 [facility] Comment on above: Performed By: #### O BSCRN #### [facility] [address] [place] [address] Dr. Rosangela Smyth MCHC (RBC) [Mass/Vol] 31.6 g/dL Normal 29.9-35.2 [facility] Comment on above: Performed By: #### O BSCRN #### [facility] [address] [place] [address] Dr. Rosangela Smyth MCV (RBC) [Entitic vol] 97.4 fL Normal 81.0-99.0 [facility] Comment on above: Performed By: #### O BSCRN #### [facility] [address] [place] [address] Dr. Rosangela Smyth MONO # 0.3 103/ul Normal 0.3-0.8 [facility] Comment on above: Performed By: #### O BSCRN #### [facility] [address] [address] [address] Rosangela Smyth Monocytes/100 WBC (Bld) 6.6 % Normal 1.7-12.0 [facility] Comment on above: Performed By: #### O BSCRN #### [facility] [address] [address] [address] Rosangela Smyth NEUT # 3.0 103/ul Normal 1.4-6.5 [facility] Comment on above: Performed By: #### O BSCRN #### [facility] [address] [place] [address] Dr. Rosangela Smyth Neutrophils/100 WBC (Bld) 59.6 % Normal 43.0-75.0 [facility] Comment on above: Performed By: #### O BSCRN #### [facility] [address] [place] [address] Dr. Rosangela Smyth Platelet mean volume (Bld) [Entitic vol] 8.6 fL Critically low 9.5-13.5 [facility] Comment on above: Performed By: #### O BSCRN #### [facility] [address] [place] [address] Dr. Rosangela Smyth PLT 351 103/ul Normal 150-450 [facility] Comment on above: Performed By: #### O BSCRN #### [facility] [address] [place] [address] Dr. Rosangela Smyth RBC 3.12 106/ul Critically low 4.20-5.40 [facility] Comment on above: Performed By: #### O BSCRN #### [facility] [address] [place] [address] Dr. Rosangela Smyth WBC 5.0 103/ul Normal 4.0-11.0 [facility] Comment on above: Performed By: #### O BSCRN #### [facility] [address] [place] [address] Dr. Rosangela Smyth Covid-19 PCR ([facility])on SARS-CoV-2 (COVID-19) RNA RICH+probe Ql (Unsp spec) Not detected Normal NOT DETECTED [facility] Comment on above: Result Comment: [...] for this test is supported by the [place] of Health and Human Service's declaration that [...] Performed By: #### L IPID, CMP #### [facility] [address] [place] [address] Dr. Rosangela Smyth ER URINE PROFILEon 2 Bilirubin Ql (U) Negative Normal NEGATIVE [facility] Comment on above: Performed By: #### L IPID, CMP #### [facility] [address] [place] [address] Dr. Rosangela Smyth Clarity (U) CLEAR Normal CLEAR [facility] Comment on above: Performed By: #### L IPID, CMP #### [facility] [address] [place] [address] Dr. Rosangela Smyth Color (U) LT. YELLOW Normal YELLOW [facility] Comment on above: Performed By: #### L IPID, CMP #### [facility] [address] [place] [address] Dr. Rosangela Smyth ERUAHD A micrscopic examination will be performed if indicated. Normal [facility] Comment on above: Performed By: #### L IPID, CMP #### [facility] [address] [place] [address] Dr. Rosangela Smyth Glucose Ql (U) Negative Normal NEGATIVE The [facility] Comment on above: Performed By: #### L IPID, CMP #### [facility] [address] [address] [address] Rosangela Smyth Hemoglobin Ql (U) Negative Normal NEGATIVE [facility] Comment on above: Performed By: #### L IPID, CMP #### [facility] [address] [address] [address] Rosangela Smyth Ketones Ql (U) Negative Normal NEGATIVE [facility] Comment on above: Performed By: #### L IPID, CMP #### [facility] [address] [place] [address] Dr. Rosangela Smyth LEUKOCYTES Negative Normal NEGATIVE [facility] Comment on above: Performed By: #### L IPID, CMP #### [facility] [address] [place] [address] Dr. Rosangela Smyth Nitrite Ql (U) Negative Normal NEGATIVE [facility] Comment on above: Performed By: #### L IPID, CMP #### [facility] [address] [place] [address] Dr. Rosangela Smyth pH (U) 6.0 [pH] Normal 5-9 [facility] Comment on above: Performed By: #### L IPID, CMP #### [facility] [address] [place] [address] Dr. Rosangela Smyth SPEC GRAVITY 1.010 Normal 1.005-<=1.02 5 [facility] Comment on above: Performed By: #### L IPID, CMP #### [facility] [address] [place] [address] Dr. Rosangela Smyth UA PROTEIN Negative Normal NEGATIVE/ TRACE [facility] Comment on above: Performed By: #### L IPID, CMP #### [facility] [address] [place] [address] Dr. Rosangela Smyth UR MICRO IND NOT INDICATED Normal [facility] Comment on above: Performed By: #### L IPID, CMP #### [facility] [address] [place] [address] Dr. Rosangela Smyth Urobilinogen Qn (U) 0.2 {Estevan'U}/dL Normal 0.2 - 1. 0 [facility] Comment on above: Performed By: #### L IPID, CMP #### [facility] [address] [place] [address] Dr. Rosanegla Smyth LIPASEon 07-08-2022 Lipase [Catalytic activity/Vol] 89.0 U/L Normal 73.0-393.0 [facility] Comment on above: Performed By: #### L ACT #### [facility] [address] [place] [address] Dr. Rosangela Smyth PROF 14(COMP METB)on 022 Albumin [Mass/Vol] 3.9 g/dL Normal 3.4-5.0 [facility] Comment on above: Performed By: #### C BC #### [facility] [address] [place] [address] Dr. Rosangela Smyth Albumin/Globulin [Mass ratio] 1.1 {ratio} Normal [facility] Comment on above: Performed By: #### C BC #### [facility] [address] [place] [address] Dr. Rosangela Smyth ALP [Catalytic activity/Vol] 86 U/L Normal 46-116 [facility] Comment on above: Performed By: #### C BC #### [facility] [address] [place] [address] Dr. Rosangela Smyth ALT [Catalytic activity/Vol] 22 U/L Normal 14-59 [facility] Comment on above: Performed By: #### C BC #### [facility] [address] [place] [address] Dr. Rosangela Smyth Anion gap [Moles/Vol] 10.1 mmol/L Normal [facility] Comment on above: Performed By: #### C BC #### [facility] [address] [place] [address] Dr. Rosangela Smyth AST [Catalytic activity/Vol] 15 U/L Normal 15-37 [facility] Comment on above: Performed By: #### C BC #### [facility] [address] [place] [address] Dr. Rosangela Smyth Bilirubin [Mass/Vol] 0.3 mg/dL Normal 0.2-1.0 [facility] Comment on above: Performed By: #### C BC #### [facility] [address] [place] [address] Dr. Rosangela Smyth Calcium [Mass/Vol] 11.8 mg/dL Critically high 8.5-10.1 [facility] Comment on above: Performed By: #### C BC #### [facility] [address] [place] [address] Dr. Rosangela Smyth Chloride [Moles/Vol] 104 mmol/L Normal 98-107 [facility] Comment on above: Performed By: #### C BC #### [facility] [address] [place] [address] Dr. Rosangela Smyth CO2 [Moles/Vol] 28.4 mmol/L Normal 21.0-32.0 [facility] Comment on above: Performed By: #### C BC #### [facility] [address] [place] [address] Dr. Rosangela Smyth Creatinine [Mass/Vol] 0.84 mg/dL Normal 0.55-1.02 [facility] Comment on above: Performed By: #### C BC #### [facility] [address] [place] [address] Dr. Rosangela Smyth EGFR-AF [place] >60 Normal >=60 [facility] Comment on above: Performed By: #### C BC #### [facility] [address] [place] [address] Dr. Rosangela Smyth EGFR-NON AF [place] >60 Normal >=60 [facility] Comment on above: Performed By: #### C BC #### [facility] [address] [place] [address] Dr. Rosangela Smyth Globulin (S) [Mass/Vol] 3.7 g/dL Normal [facility] Comment on above: Performed By: #### C BC #### [facility] [address] [place] [address] Dr. Rosangela Smyth Glucose [Mass/Vol] 82 mg/dL Normal 74-106 [facility] Comment on above: Performed By: #### C BC #### [facility] [address] [address] Dr. Rosangela Smyth Potassium [Moles/Vol] 4.5 mmol/L Normal 3.5-5.1 [facility] Comment on above: Performed By: #### C BC #### [facility] [address] [address] [address] Rosangela Smyth Protein [Mass/Vol] 7.6 g/dL Normal 6.4-8.2 [facility] Comment on above: Performed By: #### C BC #### [facility] [address] [address] [address] Rosangela Smyth Sodium [Moles/Vol] 138 mmol/L Normal 136-145 [facility] Comment on above: Performed By: #### C BC #### [facility] [address] [address] [address] Rosangela Smyth Urea nitrogen [Mass/Vol] 10.0 mg/dL Normal 7.0-18.0 [facility] Comment on above: Performed By: #### C BC #### [facility] [address] [address] [address] Rosangela Smyth Urea nitrogen/Creatinine [Mass ratio] 11.9 mg/mg Normal [facility] Comment on above: Performed By: #### C BC #### [facility] [address] [address] [address] Rosangela Smyth TROPONIN, HIGH SENSITIVITYon 07-08-2022 HSTROP 7.7 pg/mL Normal 4.0-51.3 [facility] Comment on above: Result Comment: CUT- OFF POINTS HAVE BEEN ESTABLISHED BASED ON THE FOURTH UNIVERSAL DEFINITIONS OF MYOCARDIAL INFARCTION. THE UPPER REFERENCE LIMIT (URL) OF TROPONIN, DEFINED THE 99TH PERCENTILE OF cTnI DISTRIBUTION IN A REFERENCE POPULATION, HAS BEEN CONFIRMED THE DECISION THRESHOLD FOR AR DIAGNOSIS. Performed By: #### L ACT #### [facility] [address] [address] [address] Rosangela Smyth CBC W Auto Differential pane l (Bld)on 05-22-2022 Abs Immature Gran <0.10 k/uL [facility] Basophils (Bld) [#/Vol] 0.03 10*3/uL <0.11 k/uL [facility] Basophils/100 WBC (Bld) 0.5 % [facility] Differential cell count method Nom (Bld) Auto [facility] Eosinophils (Bld) [#/Vol] 0.26 10*3/uL <0.46 k/uL [facility] Eosinophils/100 WBC (Bld) 4.5 % [facility] Erythrocyte distribution width (RBC) [Ratio] 18.1 % High 11.5 - 15.0 % [facility] Hematocrit (Bld) [Volume fraction] 30.1 % Low 36.0 - 46.0 % [facility] Hemoglobin (Bld) [Mass/Vol] 9.3 g/dL Low 11.5 - 15.5 g/dL [facility] Immature Gran % 0.2 % [facility] Lymphocytes (Bld) [#/Vol] 1.40 10*3/uL 1.00 - 4.00 k/uL [facility] Lymphocytes/100 WBC (Bld) 24.1 % [facility] MCH (RBC) [Entitic mass] 29.5 pg 26.0 - 34.0 pg [facility] MCHC (RBC) [Mass/Vol] 30.9 g/dL 30.5 - 36.0 g/dL [facility] MCV (RBC) [Entitic vol] 95.6 fL 80.0 - 100.0 fL [facility] Monocytes (Bld) [#/Vol] 0.36 10*3/uL <0.87 k/uL [facility] Monocytes/100 WBC (Bld) 6.2 % [facility] Neutrophils (Bld) [#/Vol] 3.76 10*3/uL 1.45 - 7.50 k/uL [facility] Neutrophils/100 WBC (Bld) 64.5 % [facility] Nucleated RBC (Bld) [#/Vol] <0.01 k/uL [facility] Nucleated RBC/100 WBC (Bld) [Ratio] 0.0 /100 WBC [facility] Platelet mean volume (Bld) [Entitic vol] 8.6 fL Low 9.0 - 12.7 fL [facility] Platelets (Bld) [#/Vol] 335 10*3/uL 150 - 400 k/uL [facility] RBC (Bld) [#/Vol] 3.15 10*6/uL Low 3.90 - 5.2 0 m/uL [facility] WBC (Bld) [#/Vol] 5.82 10*3/uL 3.70 - 11. 00 k/uL [facility] LD LACTATE DEHYDROon 022 LDH [Catalytic activity/Vol] 149 U/L 135 - 214 U/L [facility] RETIC COUNTon 05-22-2022 Reticulocytes (Bld) [#/Vol] 0.02240 10*3/uL 0.018 - 0.100 M/uL [facility] Reticulocytes (Bld) [#/Vol]o n 05-22-2022 Reticulocytes/100 RBC (Bld) 1.9 % 0.4 - 2.0 % [facility] LITHIUMon 05-20-2022 Noel (Eskalith(R)), Serum 0.9 mmol/L Normal 0.5-1.2 [facility] Comment on above: Result Comment: Plas ma concentration of 0.5 - 0.8 mmol/L are advised for long-term use; concentrations of up to 1.2 mmol/L may be necessary during acute treatment. Detection Limit = 0.1 <0.1 indicates None Detected Performed By: #### L ACT #### [facility] [address] [place] [address] Dr. Rosangela Smyth CREATININEon 05-19-2022 Creatinine [Mass/Vol] 0.84 mg/dL Normal 0.55-1.02 [facility] Comment on above: Performed By: #### O BSCRN #### [facility] [address] [place] [address] Dr. Rosangela Smyth EGFR-AF [place] >60 Normal >=60 [facility] Comment on above: Performed By: #### O BSCRN #### [facility] [address] [place] [address] Dr. Rosangela Smyth EGFR-NON AF [place] >60 Normal >=60 [facility] Comment on above: Performed By: #### O BSCRN #### [facility] [address] [place] [address] Dr. Rosangela Smyth TSHon 05-19-2022 TSH 2.337 uIU/mL Normal 0.358-3.740 [facility] Comment on above: Performed By: #### O BSCRN #### [facility] [address] [place] [address] Dr. Rosangela Smyth CBC AUTO DIFFon 05-16-2022 BASO # 0.0 103/ul Normal 0.0-0.1 [facility] Comment on above: Performed By: #### L IPID, CMP #### [facility] [address] [place] [address] Dr. Rosangela Smyth Basophils/100 WBC (Bld) 0.4 % Normal 0.2-2.0 [facility] Comment on above: Performed By: #### L IPID, CMP #### [facility] [address] [place] [address] Dr. Rosangela Smyth EO # 0.3 103/ul Normal 0.0-0.7 [facility] Comment on above: Performed By: #### L IPID, CMP #### [facility] [address] [place] [address] Dr. Rosangela Smyth Eosinophils/100 WBC (Bld) 5.3 % Normal 0.9-7.0 [facility] Comment on above: Performed By: #### L IPID, CMP #### [facility] [address] [place] [address] Dr. Rosangela Smyth Erythrocyte distribution width (RBC) [Ratio] 18.5 % Critically high 11.0-15.0 [facility] Comment on above: Performed By: #### L IPID, CMP #### [facility] [address] [place] [address] Dr. Rosangela Smyth Hematocrit (Bld) [Volume fraction] 30.9 % Critically low 36.0-48.0 [facility] Comment on above: Performed By: #### L IPID, CMP #### [facility] [address] [place] [address] Dr. Rosangela Smyth Hemoglobin (Bld) [Mass/Vol] 9.7 g/dL Critically low 12.0-16.0 [facility] Comment on above: Performed By: #### L IPID, CMP #### [facility] [address] [address] [address] Rosangela Smyth IG # 0.01 10e3/ul Normal 0.00-0.03 [facility] Comment on above: Performed By: #### L IPID, CMP #### [facility] [address] [address] [address] Rosangela Smyth IG % 0.2 % Normal 0.0-0.5 [facility] Comment on above: Performed By: #### L IPID, CMP #### [facility] [address] [address] [address] Rosangela Smyth LYMPH # 1.7 103/ul Normal 1.2-3.8 [facility] Comment on above: Performed By: #### L IPID, CMP #### [facility] [address] [place] [address] Dr. Rosangela Smyth Lymphocytes/100 WBC (Bld) 31.6 % Normal 20.5-60.0 [facility] Comment on above: Performed By: #### L IPID, CMP #### [facility] [address] [place] [address] Dr. Rosangela Smyth MANUAL DIFF REQ NO Normal [facility] Comment on above: Performed By: #### L IPID, CMP #### [facility] [address] [place] [address] Dr. Rosangela Smyth MCH (RBC) [Entitic mass] 30.1 pg Normal 26.7-34.0 [facility] Comment on above: Performed By: #### L IPID, CMP #### [facility] [address] [place] [address] Dr. Rosangela Smyth MCHC (RBC) [Mass/Vol] 31.4 g/dL Normal 29.9-35.2 [facility] Comment on above: Performed By: #### L IPID, CMP #### [facility] [address] [place] [address] Dr. Rosangela Smyth MCV (RBC) [Entitic vol] 96.0 fL Normal 81.0-99.0 [facility] Comment on above: Performed By: #### L IPID, CMP #### [facility] [address] [address] [address] Rosangela Smyth MONO # 0.5 103/ul Normal 0.3-0.8 [facility] Comment on above: Performed By: #### L IPID, CMP #### [facility] [address] [address] [address] Rosangela Smyth Monocytes/100 WBC (Bld) 8.7 % Normal 1.7-12.0 [facility] Comment on above: Performed By: #### L IPID, CMP #### [facility] [address] [address] [address] Rosangela Smyth NEUT # 3.0 103/ul Normal 1.4-6.5 [facility] Comment on above: Performed By: #### L IPID, CMP #### [facility] [address] [place] [address] Dr. Rosangela Smyth Neutrophils/100 WBC (Bld) 53.8 % Normal 43.0-75.0 [facility] Comment on above: Performed By: #### L IPID, CMP #### [facility] [address] [address] [address] Rosangela Smyth Platelet mean volume (Bld) [Entitic vol] 8.2 fL Critically low 9.5-13.5 [facility] Comment on above: Performed By: #### L IPID, CMP #### [facility] [address] [address] [address] Rosangela Smyth PLT 361 103/ul Normal 150-450 [facility] Comment on above: Performed By: #### L IPID, CMP #### [facility] [address] [address] [address] Rosangela Smyth RBC 3.22 106/ul Critically low 4.20-5.40 [facility] Comment on above: Performed By: #### L IPID, CMP #### [facility] [address] [address] [address] Rosangela Smyth WBC 5.5 103/ul Normal 4.0-11.0 [facility] Comment on above: Performed By: #### L IPID, CMP #### [facility] [address] [address] [address] Rosangela Smyth OCC BLD IMMUNO SCREENon 05-07 OCCULT BLOOD Negative Normal NEGATIVE [facility] Comment on above: Performed By: #### O BSCRN #### [facility] [address] [address] [address] Rosangela Smyth PROF CHEM 8 (BAS METB)on Anion gap [Moles/Vol] 13.7 mmol/L Normal [facility] Comment on above: Performed By: #### O BSCRN #### [facility] [address] [place] [address] Dr. Rosangela Smyth Calcium [Mass/Vol] 11.2 mg/dL Critically high 8.5-10.1 [facility] Comment on above: Performed By: #### O BSCRN #### [facility] [address] [address] [address] Rosangela Smyth Chloride [Moles/Vol] 105 mmol/L Normal 98-107 [facility] Comment on above: Performed By: #### O BSCRN #### [facility] [address] [place] [address] Dr. Rosangela Smyth CO2 [Moles/Vol] 24.4 mmol/L Normal 21.0-32.0 [facility] Comment on above: Performed By: #### O BSCRN #### [facility] [address] [place] [address] Dr. Rosangela Smyth Creatinine [Mass/Vol] 0.95 mg/dL Normal 0.55-1.02 [facility] Comment on above: Performed By: #### O BSCRN #### [facility] [address] [place] [address] Dr. Rosangela Smyth EGFR-AF [place] >60 Normal >=60 [facility] Comment on above: Performed By: #### O BSCRN #### [facility] [address] [place] [address] Dr. Rosangela Smyth EGFR-NON AF [place] =60 Normal >=60 [facility] Comment on above: Performed By: #### O BSCRN #### [facility] [address] [place] [address] Dr. Rosangela Smyth Glucose [Mass/Vol] 91 mg/dL Normal 74-106 [facility] Comment on above: Performed By: #### O BSCRN #### [facility] [address] [place] [address] Dr. Rosangela Smyth Potassium [Moles/Vol] 4.1 mmol/L Normal 3.5-5.1 [facility] Comment on above: Performed By: #### O BSCRN #### [facility] [address] [place] [address] Dr. Rosangela Smyth Sodium [Moles/Vol] 139 mmol/L Normal 136-145 [facility] Comment on above: Performed By: #### O BSCRN #### [facility] [address] [place] [address] Dr. Rosangela Smyth Urea nitrogen [Mass/Vol] 11.0 mg/dL Normal 7.0-18.0 [facility] Comment on above: Performed By: #### O BSCRN #### [facility] [address] [place] [address] Dr. Rosangela Smyth Urea nitrogen/Creatinine [Mass ratio] 11.6 mg/mg Normal [facility] Comment on above: Performed By: #### O BSCRN #### [facility] [address] [place] [address] Dr. Rosangela Smyth CBC AUTO DIFFon 05-04-2022 BASO # 0.0 103/ul Normal 0.0-0.1 [facility] Comment on above: Performed By: #### L IPID, CMP #### [facility] [address] [place] [address] Dr. Rosangela Smyth Basophils/100 WBC (Bld) 0.4 % Normal 0.2-2.0 [facility] Comment on above: Performed By: #### L IPID, CMP #### [facility] [address] [place] [address] Dr. Rosangela Smyth EO # 0.4 103/ul Normal 0.0-0.7 [facility] Comment on above: Performed By: #### L IPID, CMP #### [facility] [address] [place] [address] Dr. Rosangela Smyth Eosinophils/100 WBC (Bld) 6.6 % Normal 0.9-7.0 [facility] Comment on above: Performed By: #### L IPID, CMP #### [facility] [address] [place] [address] Dr. Rosangela Smyth Erythrocyte distribution width (RBC) [Ratio] 19.3 % Critically high 11.0-15.0 [facility] Comment on above: Performed By: #### L IPID, CMP #### [facility] [address] [place] [address] Dr. Rosangela Smyth Hematocrit (Bld) [Volume fraction] 29.8 % Critically low 36.0-48.0 [facility] Comment on above: Performed By: #### L IPID, CMP #### [facility] [address] [place] [address] Dr. Rosangela Smyth Hemoglobin (Bld) [Mass/Vol] 9.3 g/dL Critically low 12.0-16.0 [facility] Comment on above: Performed By: #### L IPID, CMP #### [facility] [address] [place] [address] Dr. Rosangela Smyth IG # 0.01 10e3/ul Normal 0.00-0.03 [facility] Comment on above: Performed By: #### L IPID, CMP #### [facility] [address] [place] [address] Dr. Rosangela Smyth IG % 0.2 % Normal 0.0-0.5 [facility] Comment on above: Performed By: #### L IPID, CMP #### [facility] [address] [place] [address] Dr. Rosangela Smyth LYMPH # 1.3 103/ul Normal 1.2-3.8 [facility] Comment on above: Performed By: #### L IPID, CMP #### [facility] [address] [place] [address] Dr. Rosangela Smyth Lymphocytes/100 WBC (Bld) 23.5 % Normal 20.5-60.0 [facility] Comment on above: Performed By: #### L IPID, CMP #### [facility] [address] [place] [address] Dr. Rosangela Smyth MANUAL DIFF REQ NO Normal [facility] Comment on above: Performed By: #### L IPID, CMP #### [facility] [address] [place] [address] Dr. Rosangela Smyth MCH (RBC) [Entitic mass] 29.3 pg Normal 26.7-34.0 [facility] Comment on above: Performed By: #### L IPID, CMP #### [facility] [address] [place] [address] Dr. Rosangela Smyth MCHC (RBC) [Mass/Vol] 31.2 g/dL Normal 29.9-35.2 [facility] Comment on above: Performed By: #### L IPID, CMP #### [facility] [address] [place] [address] Dr. Rosangela Smyth MCV (RBC) [Entitic vol] 94.0 fL Normal 81.0-99.0 [facility] Comment on above: Performed By: #### L IPID, CMP #### [facility] [address] [place] [address] Dr. Rosangela Smyth MONO # 0.4 103/ul Normal 0.3-0.8 [facility] Comment on above: Performed By: #### L IPID, CMP #### [facility] [address] [place] [address] Dr. Rosangela Smyth Monocytes/100 WBC (Bld) 6.6 % Normal 1.7-12.0 [facility] Comment on above: Performed By: #### L IPID, CMP #### [facility] [address] [place] [address] Dr. Rosangela Smyth NEUT # 3.5 103/ul Normal 1.4-6.5 [facility] Comment on above: Performed By: #### L IPID, CMP #### [facility] [address] [address] [address] Rosangela Smyth Neutrophils/100 WBC (Bld) 62.7 % Normal 43.0-75.0 [facility] Comment on above: Performed By: #### L IPID, CMP #### [facility] [address] [address] [address] Rosangela Smyth Platelet mean volume (Bld) [Entitic vol] 8.2 fL Critically low 9.5-13.5 [facility] Comment on above: Performed By: #### L IPID, CMP #### [facility] [address] [address] [address] Rosangela Smyth PLT 337 103/ul Normal 150-450 [facility] Comment on above: Performed By: #### L IPID, CMP #### [facility] [address] [address] [address] Rosangela Smyth RBC 3.17 106/ul Critically low 4.20-5.40 [facility] Comment on above: Performed By: #### L IPID, CMP #### [facility] [address] [address] [address] Rosangela Smyth WBC 5.6 103/ul Normal 4.0-11.0 [facility] Comment on above: Performed By: #### L IPID, CMP #### [facility] [address] [address] [address] Rosangela Smyth TSHon 05-04-2022 TSH 1.227 uIU/mL Normal 0.358-3.740 [facility] Comment on above: Performed By: #### L IPID, CMP #### [facility] [address] [address] [address] Rsoangela Smyth GLYCOHEMOGLOBIN A1Con 2021 ADA RECOMMENDATION SEE BELOW Normal [facility] Comment on above: Result Comment: ADA RECOMMENDED LIMIT 4.0 - 6.0 ADA THERAPEUTIC TARGET < 7.0 ACTION SUGGESTED > 7.0 Performed By: #### L IPID, CMP #### [facility] [address] [address] [address] Rosangela Smyth Glucose [Mass/Vol] 154 mg/dL Normal [facility] Comment on above: Performed By: #### L IPID, CMP #### [facility] [address] [address] [address] Rosangela Smyth HbA1c (Bld) [Mass fraction] 7.0 % Critically high 4.5-6.2 [facility] Comment on above: Performed By: #### L IPID, CMP #### [facility] [address] [address] [address] Rosangela Smyth LIPID PROFILEon 04-03-2022 CHOL-HDL RATIO NORM SEE BELOW Normal [facility] Comment on above: Result Comment: 3.3 - 4.4 LOW RISK 4.4 - 7.1 AVERAGE RISK 7.1 - 11.0 MODERATE RISK >11.0 HIGH RISK Performed By: #### L IPID, CMP #### [facility] [address] [address] [address] Rosangela Smyth Cholesterol [Mass/Vol] 147 mg/dL Normal <=200 [facility] Comment on above: Performed By: #### L IPID, CMP #### [facility] [address] [address] [address] Rosangela Smyth Cholesterol in HDL [Mass/Vol] 64 mg/dL Critically high 40-60 [facility] Comment on above: Performed By: #### L IPID, CMP #### [facility] [address] [address] [address] Rosangela Smyth Cholesterol in LDL [Mass/Vol] 70.8 mg/dL Normal [facility] Comment on above: Performed By: #### L IPID, CMP #### [facility] [address] [address] [address] Rosangela Smyth Cholesterol.total/C holesterol in HDL [Mass ratio] 2.3 {ratio} Normal [facility] Comment on above: Performed By: #### L IPID, CMP #### [facility] [address] [address] [address] Rosangela Smyth HDL NORMAL > or = 60 mg/dl - LO W CARDIOVASCULAR RISK <40 mg/dl - HIGH CARDIOVASCULAR RISK Normal [facility] Comment on above: Performed By: #### L IPID, CMP #### [facility] [address] [address] [address] Rosangela Smyth LDL CALC NORMAL SEE BELOW Normal [facility] Comment on above: Result Comment: <100 mg/dl OPTIMAL 100 - 129 mg/dl NEAR OR ABOVE OPTIMAL 130 - 159 mg/dl BORDERLINE HIGH 160 - 189 mg/dl HIGH >190 mg/dl VERY HIGH Performed By: #### L IPID, CMP #### [facility] [address] [address] [address] Rosangela Smyth Triglyceride [Mass/Vol] 61 mg/dL Normal <=150 [facility] Comment on above: Performed By: #### L IPID, CMP #### [facility] [address] [place] [address] Dr. Rosangela Smyth VLDL CALC 12.2 mg/dL Normal [facility] Comment on above: Performed By: #### L IPID, CMP #### [facility] [address] [place] [address] Dr. Rosangela Smyth PROF 14(COMP METB)on 022 Albumin [Mass/Vol] 3.7 g/dL Normal 3.4-5.0 [facility] Comment on above: Performed By: #### L IPID, CMP #### [facility] [address] [place] [address] Dr. Rosangela Smyth Albumin/Globulin [Mass ratio] 1.1 {ratio} Normal [facility] Comment on above: Performed By: #### L IPID, CMP #### [facility] [address] [place] [address] Dr. Rosangela Smyth ALP [Catalytic activity/Vol] 92 U/L Normal 46-116 [facility] Comment on above: Performed By: #### L IPID, CMP #### [facility] [address] [address] [address] Rosangela Smyth ALT [Catalytic activity/Vol] 25 U/L Normal 14-59 [facility] Comment on above: Performed By: #### L IPID, CMP #### [facility] [address] [address] [address] Rosangela Smyth Anion gap [Moles/Vol] 11.8 mmol/L Normal [facility] Comment on above: Performed By: #### L IPID, CMP #### [facility] [address] [address] [address] Rosangela Smyth AST [Catalytic activity/Vol] 11 U/L Critically low 15-37 [facility] Comment on above: Performed By: #### L IPID, CMP #### [facility] [address] [address] [address] Rosangela Smyth Bilirubin [Mass/Vol] 0.2 mg/dL Normal 0.2-1.0 [facility] Comment on above: Performed By: #### L IPID, CMP #### [facility] [address] [place] [address] Dr. Rosangela Smyth Calcium [Mass/Vol] 10.6 mg/dL Critically high 8.5-10.1 [facility] Comment on above: Performed By: #### L IPID, CMP #### [facility] [address] [address] [address] Rosangela Smyth Chloride [Moles/Vol] 105 mmol/L Normal 98-107 [facility] Comment on above: Performed By: #### L IPID, CMP #### [facility] [address] [place] [address] Dr. Rosangela Smyth CO2 [Moles/Vol] 25.9 mmol/L Normal 21.0-32.0 [facility] Comment on above: Performed By: #### L IPID, CMP #### [facility] [address] [address] [address] Rosangela Smyth Creatinine [Mass/Vol] 0.86 mg/dL Normal 0.55-1.02 [facility] Comment on above: Performed By: #### L IPID, CMP #### [facility] [address] [address] [address] Rosangela Smyth EGFR-AF [place]LANDER >60 Normal >=60 [facility] Comment on above: Performed By: #### L IPID, CMP #### [facility] [address] [address] [address] Rosangela Smyth EGFR-NON AF [place] >60 Normal >=60 [facility] Comment on above: Performed By: #### L IPID, CMP #### [facility] [address] [address] [address] Rosangela Smyth Globulin (S) [Mass/Vol] 3.5 g/dL Normal [facility] Comment on above: Performed By: #### L IPID, CMP #### [facility] [address] [address] [address] Rosangela Smyth Glucose [Mass/Vol] 197 mg/dL Critically high 74-106 [facility] Comment on above: Performed By: #### L IPID, CMP #### [facility] [address] [address] [address] Rosangela Smyth Potassium [Moles/Vol] 4.7 mmol/L Normal 3.5-5.1 [facility] Comment on above: Performed By: #### L IPID, CMP #### [facility] [address] [address] [address] Rosangela Smyth Protein [Mass/Vol] 7.2 g/dL Normal 6.4-8.2 [facility] Comment on above: Performed By: #### L IPID, CMP #### [facility] [address] [address] [address] Rosangela Smyth Sodium [Moles/Vol] 138 mmol/L Normal 136-145 [facility] Comment on above: Performed By: #### L IPID, CMP #### [facility] [address] [address] [address] Rosangela Smyth Urea nitrogen [Mass/Vol] 16.0 mg/dL Normal 7.0-18.0 [facility] Comment on above: Performed By: #### L IPID, CMP #### [facility] [address] [address] [address] Rosangela Smyth Urea nitrogen/Creatinine [Mass ratio] 18.6 mg/mg Normal [facility] Comment on above: Performed By: #### L IPID, CMP #### [facility] [address] [address] [address] Rosangela Smyth GLYCOHEMOGLOBIN A1Con 2021 ADA RECOMMENDATION SEE BELOW Normal [facility] Comment on above: Result Comment: ADA RECOMMENDED LIMIT 4.0 - 6.0 ADA THERAPEUTIC TARGET < 7.0 ACTION SUGGESTED > 7.0 Performed By: #### L IPID, CMP #### [facility] [address] [address] [address] Rosangela Smyth Glucose [Mass/Vol] 134 mg/dL Normal [facility] Comment on above: Performed By: #### L IPID, CMP #### [facility] [address] [address] [address] Rosangela Smyth HbA1c (Bld) [Mass fraction] 6.3 % Critically high 4.5-6.2 [facility] Comment on above: Performed By: #### L IPID, CMP #### [facility] [address] [place] [address] Dr. Rosangela Smyth LIPID PROFILEon 01-31-2022 CHOL-HDL RATIO NORM SEE BELOW Normal [facility] Comment on above: Result Comment: 3.3 - 4.4 LOW RISK 4.4 - 7.1 AVERAGE RISK 7.1 - 11.0 MODERATE RISK >11.0 HIGH RISK Performed By: #### L ACT #### [facility] [address] [address] [address] Rosangela Smyth Cholesterol [Mass/Vol] 134 mg/dL Normal <=200 [facility] Comment on above: Performed By: #### L ACT #### [facility] [address] [address] [address] Rosangela Smyth Cholesterol in HDL [Mass/Vol] 68 mg/dL Critically high 40-60 [facility] Comment on above: Performed By: #### L ACT #### [facility] [address] [address] [address] Rosangela Smyth Cholesterol in LDL [Mass/Vol] 55.0 mg/dL Normal [facility] Comment on above: Performed By: #### L ACT #### [facility] [address] [address] [address] Rosangela Smyth Cholesterol.total/C holesterol in HDL [Mass ratio] 2.0 {ratio} Normal [facility] Comment on above: Performed By: #### L ACT #### [facility] [address] [address] [address] Rosangela Smyth HDL NORMAL > or = 60 mg/dl - LO W CARDIOVASCULAR RISK <40 mg/dl - HIGH CARDIOVASCULAR RISK Normal [facility] Comment on above: Performed By: #### L ACT #### [facility] [address] [address] [address] Rosangela Smyth LDL CALC NORMAL SEE BELOW Normal [facility] Comment on above: Result Comment: <100 mg/dl OPTIMAL 100 - 129 mg/dl NEAR OR ABOVE OPTIMAL 130 - 159 mg/dl BORDERLINE HIGH 160 - 189 mg/dl HIGH >190 mg/dl VERY HIGH Performed By: #### L ACT #### [facility] [address] [address] [address] Rosangela Smyth Triglyceride [Mass/Vol] 55 mg/dL Normal <=150 [facility] Comment on above: Performed By: #### L ACT #### [facility] [address] [address] [address] Rosangela Smyth VLDL CALC 11.0 mg/dL Normal [facility] Comment on above: Performed By: #### L ACT #### [facility] [address] [address] [address] Rosangela Smyth PROF 14(COMP METB)on 022 Albumin [Mass/Vol] 4.0 g/dL Normal 3.4-5.0 [facility] Comment on above: Performed By: #### L ACT #### [facility] [address] [place] [address] Dr. Rosangela Smyth Albumin/Globulin [Mass ratio] 1.0 {ratio} Normal [facility] Comment on above: Performed By: #### L ACT #### [facility] [address] [address] [address] Rosangela Smyth ALP [Catalytic activity/Vol] 105 U/L Normal 46-116 [facility] Comment on above: Performed By: #### L ACT #### [facility] [address] [place] [address] Dr. Rosangela Smyth ALT [Catalytic activity/Vol] 30 U/L Normal 14-59 [facility] Comment on above: Performed By: #### L ACT #### [facility] [address] [address] [address] Rosangela Smyth Anion gap [Moles/Vol] 10.7 mmol/L Normal [facility] Comment on above: Performed By: #### L ACT #### [facility] [address] [address] [address] Rosangela Smyth AST [Catalytic activity/Vol] 14 U/L Critically low 15-37 [facility] Comment on above: Performed By: #### L ACT #### [facility] [address] [place] [address] Dr. Rosangela Smyth Bilirubin [Mass/Vol] 0.2 mg/dL Normal 0.2-1.0 [facility] Comment on above: Performed By: #### L ACT #### [facility] [address] [address] [address] Rosangela Smyth Calcium [Mass/Vol] 11.1 mg/dL Critically high 8.5-10.1 [facility] Comment on above: Performed By: #### L ACT #### [facility] [address] [place] [address] Dr. Rosangela Smyth Chloride [Moles/Vol] 104 mmol/L Normal 98-107 [facility] Comment on above: Performed By: #### L ACT #### [facility] [address] [address] [address] Rosangela Smyth CO2 [Moles/Vol] 26.8 mmol/L Normal 21.0-32.0 [facility] Comment on above: Performed By: #### L ACT #### [facility] [address] [address] [address] Rosangela Smyth Creatinine [Mass/Vol] 0.68 mg/dL Normal 0.55-1.02 [facility] Comment on above: Performed By: #### L ACT #### [facility] [address] [address] [address] Rosangela Smyth EGFR-AF [place]LANDER >60 Normal >=60 [facility] Comment on above: Performed By: #### L ACT #### [facility] [address] [address] [address] Rosangela Smyth EGFR-NON AF [place] >60 Normal >=60 [facility] Comment on above: Performed By: #### L ACT #### [facility] [address] [address] [address] Rosangela Smyth Globulin (S) [Mass/Vol] 4.0 g/dL Normal [facility] Comment on above: Performed By: #### L ACT #### [facility] [address] [address] [address] Rosangela Smyth Glucose [Mass/Vol] 142 mg/dL Critically high 74-106 [facility] Comment on above: Performed By: #### L ACT #### [facility] [address] [address] [address] Rosangela Smyth Potassium [Moles/Vol] 4.5 mmol/L Normal 3.5-5.1 [facility] Comment on above: Performed By: #### L ACT #### [facility] [address] [address] [address] Rosangela Smyth Protein [Mass/Vol] 8.0 g/dL Normal 6.4-8.2 [facility] Comment on above: Performed By: #### L ACT #### [facility] [address] [address] [address] Rosangela Smyth Sodium [Moles/Vol] 137 mmol/L Normal 136-145 [facility] Comment on above: Performed By: #### L ACT #### [facility] [address] [address] [address] Rosangela Smyth Urea nitrogen [Mass/Vol] 14.0 mg/dL Normal 7.0-18.0 [facility] Comment on above: Performed By: #### L ACT #### [facility] [address] [address] [address] Rosangela Smyth Urea nitrogen/Creatinine [Mass ratio] 20.6 mg/mg Normal [facility] Comment on above: Performed By: #### L ACT #### [facility] [address] [address] [address] Rosangela Smyth Gamma Glutamyl Transpeptidas anurag 07-23-2021 Gamma Glutamyl Transpeptidase 71 7-64 [employer] Other Ambulatory Clinical Summaryo n 02-26-2021 Ambulatory Clinical Summary {[id number]}CD:[id number] Normal [facility] Ambulatory Clinical Summaryo n 02-07-2021 Ambulatory Clinical Summary {[id number]}CD:[id number] Normal [facility] Ambulatory Clinical Summary {[id number]}CD:[id number] Normal [facility] Formson 02-07-2021 Forms [id number] D:[address] [facility] Historical Records Officeon 02-07-2021 Historical Records Office [id number] D:[address] [facility] Patient Educationon 02-08-20 Patient Education Urology [...] stimulation). ? For women, using a medical geneticist to prevent urine leaks. This is a [...] after experiencing incontinence. General instructions ? Take rpvt-apd-vrimgnj and prescription medicines only as (more content not included)... Normal [facility] Urology Office/Clinic Noteon 02-07-2021 Urology Office/Clinic [...] Will order Local anesthesia. ABX sent to [facility] in [place]. I have reviewed the previous health record information and history for this pt. from Dr. Shultz. Follow-up With When Contact Information KERA VAN, Chicho Beaulieu, URL [address] [place] [address] [place] [address]- [phone] Additional Instructions: Patient Education Urinary Incontinence IVanesa , personally scribed for Dr. Shultz on [...] 10:55:00) Nitrite (more content not included)... Normal [facility] Comment on above: Result Comment: Elec tronically Signed By: KERA VAN, Chicho Beaulieu\.br\Date and Time Signed: 02/07/21 11:47 EDT\.br\Electronically Co-Signed By: Vanesa Pruitt MA\.br\Date and Time Co-Signed: 02/07/21 11:[address] NECK SOFT TISSUE WO IVCON on 01-29-2021 [facility] Physician Referralon 020 Physician Referral [id number] D:[address] [facility] Vital Signs Date Time Vital Sign Value Performing Clinician Facility 04-07-2024 13:59-0400 Body temperature 98.4 [degF] [employer] Work Phone: [facility] 04-07-2024 13:59-0400 Diastolic blood pressure 92 mm[Hg] [employer] Work Phone: [facility] 04-07-2024 13:59-0400 Heart rate 85 /min [employer] Work Phone: [facility] 04-07-2024 13:59-0400 Respiratory rate 16 /min [employer] Work Phone: [facility] 04-07-2024 13:59-0400 SaO2% (BldA) [Mass fraction] 100 % Chair [employer] Work Phone: [facility] 04-07-2024 13:59-0400 Systolic blood pressure 161 mm[Hg] [employer] Work Phone: [facility] 04-06-2024 15:12-0400 Body temperature 97.2 [degF] Ma Sand Work Phone: [facility] 04-06-2024 15:12-0400 Diastolic blood pressure 73 mm[Hg] Ma Sand Work Phone: [facility] 04-06-2024 15:12-0400 Heart rate 97 /min Ma Sand Work Phone: [facility] 04-06-2024 15:12-0400 Respiratory rate 20 /min Ma Sand Work Phone: [facility] 04-06-2024 15:12-0400 SaO2% (BldA) [Mass fraction] 100 % Ma Sand Work Phone: [facility] 04-06-2024 15:12-0400 Systolic blood pressure 169 mm[Hg] Ma Sand Work Phone: [facility] 03-23-2024 15:31-0400 Body mass index (BMI) [Ratio] 19.11 kg/m2 Beto Vivar MD Work Phone: [facility] 03-23-2024 15:31-0400 Body temperature 97.81 [degF] Bteo Vivar MD Work Phone: [facility] 03-23-2024 15:31-0400 Body weight 52.1 kg Beto Vivar MD Work Phone: [facility] 03-23-2024 15:31-0400 Diastolic blood pressure 84 mm[Hg] Beto Vivar MD Work Phone: [facility] 03-23-2024 15:31-0400 Heart rate 79 /min Beto Vivar MD Work Phone: [facility] 03-23-2024 15:31-0400 Respiratory rate 16 /min Beto Vivar MD Work Phone: [facility] 03-23-2024 15:31-0400 SaO2% (BldA) [Mass fraction] 100 % Beto Vivar MD Work Phone: [facility] 03-23-2024 15:31-0400 Systolic blood pressure 172 mm[Hg] Beto Vivar MD Work Phone: [facility] 05-22-2022 11:23-0400 Body height 165.1 cm Ignacio Sam MD Work Phone: [facility] 05-22-2022 11:23-0400 Body temperature 97.59 [degF] Ignacio Sam MD Work Phone: [facility] 05-22-2022 11:23-0400 Body weight 71.22 kg Ignacio Sam MD Work Phone: [facility] 05-22-2022 11:23-0400 Diastolic blood pressure 80 mm[Hg] Ignacio Sam MD Work Phone: [facility] 05-22-2022 11:23-0400 Heart rate 95 /min Ignacio Sam MD Work Phone: [facility] 05-22-2022 11:23-0400 Respiratory rate 16 /min Ignacio Sam MD Work Phone: [facility] 05-22-2022 11:23-0400 SaO2% (BldA) [Mass fraction] 100 % Ignacio Sam MD Work Phone: [facility] 05-22-2022 11:23-0400 Systolic blood pressure 145 mm[Hg] Ignacio Sam MD Work Phone: [facility] 07-23-2021 11:45-0500 Body height 165.1 cm Neo Calhoun Other [employer] Other 07-23-2021 11:45-0500 Body mass index (BMI) [Ratio] 24.29 kg/m2 Neo [employer] Other [employer] Other 07-23-2021 11:45-0500 Body weight 66.23 kg Neo Calhoun Other [employer] Other 06-02-2021 15:40-0400 Body height 165.1 cm Brynn Mg Other [employer] Other 06-02-2021 15:40-0400 Body mass index (BMI) [Ratio] 24.83 kg/m2 [employer] Other [employer] Other 06-02-2021 15:40-0400 Body temperature 96.9 [degF] [employer]nn [employer] Other [employer] Other 06-02-2021 15:40-0400 Body weight 67.68 kg [employer]nn [employer] Other [employer] Other 06-02-2021 15:40-0400 Diastolic blood pressure 80 mm[Hg] [employer] Other [employer] Other 06-02-2021 15:40-0400 Respiratory rate 18 /min [employer] Other [employer] Other 06-02-2021 15:40-0400 SaO2% (BldA) [Mass fraction] 99 % [employer] Other [employer] Other 06-02-2021 15:40-0400 Systolic blood pressure 136 mm[Hg] [employer]nn [employer] Other [employer] Other Encounters Encounter Date Encounter Type Care Provider Facility Start: 04-07-2024 Telephone encounter Rae Manzo RN Hematology/Oncology Comment on above: Patient Question; Pa tient Update Start: 04-07-2024 End: 04-07-2024 ambulatory Chair 14 Rebekah Work Phone: Hematology/Oncology Comment on above: 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); Iron deficiency anemia due to chronic blood loss Start: 04-06-2024 End: 04-06-2024 Nursing evaluation of patient and report Bre Ybarra Work Phone: Hematology/Oncology Comment on above: 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) Start: 04-04-2024 End: 04-04-2024 ambulatory BETO VIVAR [facility] Start: 04-03-2024 End: 04-03-[address] Work Phone: Nutrition Therapy Start: 04-03-2024 End: 04-03-2024 Nutrition therapy Erendira Aguillon RD Work Phone: Nutrition Therapy Comment on above: Nutrition Telephone Start: 03-30-2024 End: 03-30-2024 ambulatory Chair 15 Rebekah Work Phone: Hematology/Oncology Comment on above: 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); Iron deficiency anemia due to chronic blood loss Start: 03-28-2024 End: 03-28-2024 ambulatory [facility] Start: 03-28-2024 Telephone encounter Tena Broderick Hematology/Oncology Comment on above: Pain Start: 03-27-2024 ambulatory Dajuan Whaley Facility:[facility] Start: 03-24-2024 Telephone encounter Tena Broderick Hematology/Oncology Comment on above: Pain Start: 03-23-2024 End: 03-23-2024 Nursing evaluation of patient and report Bre Ybarra Work Phone: Hematology/Oncology Comment on above: 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) Start: 03-23-2024 End: 03-24-2024 Patient encounter procedure Beto Vivar MD Work Phone: Hematology/Oncology Start: 03-23-2024 End: 03-24-2024 ambulatory Beto Vivar MD Work Phone: Hematology/Oncology Comment on above: 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); Other pulmonary embolism without acute cor pulmonale, unspecified chronicity (HCC); Acquired hypothyroidism; Cancer related pain; Megaloblastic anemia due to vitamin B12 deficiency; Iron deficiency anemia due to chronic blood loss Start: 03-23-2024 Telephone encounter Brea pozo RN Work Phone: Hematology/Oncology Comment on above: Care Coordination (H ER2 FISH Analysis) Start: 03-22-2024 End: 03-22-2024 ambulatory [facility] Start: 03-17-2024 Chart abstracting Beto kennedy MD Work Phone: Hematology/Oncology Start: 03-07-2024 End: 03-07-2024 ambulatory [facility] Start: 03-03-2024 End: 03-03-2024 [facility] Start: 03-02-2024 End: 03-03-2024 Evaluation and management of inpatient [facility] Start: 02-24-2024 End: 02-24-2024 ambulatory [facility] Start: 02-21-2024 End: 02-21-2024 ambulatory [facility] Start: 02-18-2024 End: 02-18-2024 ambulatory [facility] Start: 02-16-2024 ambulatory [facility] Start: 02-02-2024 End: 02-02-2024 ambulatory [facility] Start: 01-21-2024 End: 01-21-2024 ambulatory [facility] Start: 01-21-2024 End: 01-21-2024 ambulatory [facility] Start: 11-17-2023 End: 11-17-2023 Office outpatient visit 15 minutes Anna Marie Monge [employer] Work Phone: [facility] - [facility] Comment on above: Diarrhea of presumed infectious origin (Primary Dx); Weakness; Type 2 diabetes mellitus without complication, without long-term current use of insulin ([facility] [place] [place] Hyperparathyroidism ([facility] [place] Start: 11-17-2023 End: 11-17-2023 ambulatory ANNA MARIE Camelia MARIPOSA [facility] Start: 11-11-2023 Telephone encounter Con Gleason [facility] - [facility] Start: 11-05-2023 Telephone encounter Con Gleason [facility] Start: 10-25-2023 Refill Beatrice Allen [facility] - [facility] Comment on above: Type 2 diabetes noe itus without complication, without long- term current use of insulin ([facility] [place] Start: 10-24-2023 Refill Kostas Cano ng DO Work Phone: [facility] Comment on above: Type 2 diabetes noe itus without complication, without long- term current use of insulin ([facility] [place] Start: 09-03-2023 Refill Kostas Cano ng DO Work Phone: [facility] Comment on above: Acquired hypothyroid ism Start: 08-23-2023 End: 08-23-2023 ambulatory K[facility]AS [facility] Start: 08-23-2023 End: 08-23-2023 ambulatory [facility] Start: 01-17-2023 End: 01-17-[address] KOSTAS STEWARD Facility:[facility] Start: 12-21-2022 End: 12-22-[address] KOSTAS STEWARD Facility:[facility] Start: 12-16-[address] DHRUV Muñoz ty:[facility] Start: 11-27-2022 End: 11-27-[address] KOSTAS STEWARD Facility:[facility] Start: 09-23-2022 End: 09-25-2022 Evaluation and management of inpatient DR KOSTAS STEWARD Facility:[facility] Start: 09-22-2022 End: 09-23-[address] KOSTAS STEWARD Facility:[facility] Start: 09-12-2022 End: 09-12-2022 ambulatory ATTILA JULIO . Facility:[facility] Start: 09-03-2022 ambulatory UNKNOWN PROVIDER Facili ty:[facility] Start: 07-22-[address] KOSTAS STEWARD Fac ility:[facility] Start: 07-15-2022 End: 07-15-2022 ambulatory Neo Calhoun Other [employer] Other Start: 07-15-2022 Telephone encounter [employer] [facility] Start: 07-08-2022 End: 07-08-[address] TEE KRAUSE . Facility:[facility] Start: 07-03-2022 Telephone encounter Ignacio hardwick MD Work Phone: [facility] Comment on above: Patient Update Start: 06-04-2022 Telephone encounter Ignacio hardwick MD Work Phone: [facility] Comment on above: Appointment Cancelle d Start: 05-29-2022 Telephone encounter Jackie Silverio BRAILLE OPERATOR H ematology/Oncology Comment on above: Social Work Services Start: 05-26-2022 Telephone encounter Regina Zuniga sser PA-C Work Phone: Hematology/Oncology Comment on above: Lab Orders Start: 05-25-2022 Telephone encounter Yvonne Echavarria RN Hematology/Oncology Comment on above: Results Start: 05-22-2022 End: 05-22-2022 ambulatory Ignacio Sam MD Work Phone: Hematology/Oncology Comment on above: Anemia, normocytic n ormochromic (Primary Dx) Start: 05-22-2022 End: 05-22-2022 Patient encounter procedure Ignacio Sam MD Work Phone: [facility] Start: 05-21-2022 Chart abstracting Ignacio gee MD Work Phone: Hematology/Oncology Start: 05-19-2022 End: 05-20-[address] KOSTAS STEWARD Facility:[facility] Start: 05-16-2022 End: 05-16-2022 ambulatory FOX DUFF Facility:[facility] Start: 05-04-2022 End: 05-05-[address] KOSTAS STEWARD Facility:[facility] Start: 04-23-2022 End: 04-23-2022 ambulatory Neo [employer] Other [employer] Other Start: 04-23-2022 Telephone encounter Neo powell [facility] Start: 04-03-2022 End: 04-04-[address] KOSTAS STEWARD Facility:[facility] Start: 01-31-2022 End: 02-01-[address] KOSTAS STEWARD Facility:[facility] Start: 01-02-2022 End: 01-02-2022 ambulatory Neo Calhoun Other [employer] Other Start: 01-02-2022 Telephone encounter Neo powell [facility] Start: 08-18-2021 End: 08-18-2021 ambulatory Neo Calhoun Other [employer] Other Start: 08-18-2021 Telephone encounter Neo powell [facility] Start: 07-23-2021 End: 07-23-2021 ambulatory Neo Calhoun Other [employer] Other Start: 07-23-2021 Office outpatient vi sit 25 minutes Neo Calhoun [facility] Start: 06-02-2021 Office outpatient ne w 45 minutes Brynn Holliday [facility] Start: 01-29-2021 End: 01-29-2021 Subsequent hospital visit by physician [facility] ([facility]) Radiology Comment on above: Disorder of airway [ J98.9] Procedures Date Procedure Procedure Detail Performing Clinician Start: 03-02-2024 Colonoscopy Beto kennedy MD Work Phone: Start: 01-21-2024 Follow-up visit Follow-up KOSTAS STEWARD Start: 08-23-2023 Adult depression scr eening assessment Kostas Steward [employer] Phone: Start: 08-23-2023 Microalbumin [Mass/v olume] in Urine by Test strip Kostas Steward [employer] Work Phone: Start: 08-12-2023 Mammography Kostas echavarria [employer] Work Phone: Start: 04-01-2023 Diabetic retinal eye exam Kostas Steward [employer] Phone: Start: 01-29-2021 Ct soft tissue neck w/o contrast material Trev Shah MD Work Phone: Start: 01-29-2021 Ct thorax w/o contra st material Trev Shah MD Work Phone: Start: 04-06-2018 Colonoscopy Kostas echavarria [employer] Work Phone: Start: 06-04-2016 Adult depression scr eening assessment Ignacio Sam MD Work Phone: Plan of Treatment Date Care Activity Detail Author Start: 04-06-2028 Screening for malign ant neoplasm of colon Colonoscopy [facility] [employer] [facility] Start: 03-23-2027 Diabetes Screening Diabetes Screenin [facility] Start: 01-20-2027 Diabetes Screening Diabetes Screenin g [facility] Start: 03-02-2025 Screening for malign ant neoplasm of colon [facility] Start: 08-23-2024 Adult BMI Screening Adult BMI Screen ing [facility] [employer] [facility] Start: 08-23-2024 Depression Screening Depression Scre ening [facility] [employer] [facility] Start: 08-23-2024 Tobacco Screening Tobacco Screening [facility] [employer] [facility] Start: 08-23-2024 Urine screening for protein [facility] Start: 08-12-2024 Screening for malign [facility]oplasm [facility] Start: 05-07-2024 Influenza vaccination Influenza Vacc ine (#1) [facility] Start: 04-21-2024 End: 04-21-2024 ambulatory 04/21/2024 1:30 PM EDT [facility] Hematology/Oncology [address] [place] [address] [place] [address] IV Fe # 4 B 12 inj Hematology/Oncology Comment on above: IV Fe # 4 B 12 inj Start: 04-14-2024 End: 04-14-2024 Nutrition therapy 04/14/2024 10:45 AM EDT Education Nutrition Therapy [address] [place] [address] Erendira Aguillon, FOR[place] [address] [place] [address] phone f/u Nutrition Therapy Comment on above: phone f/u Start: 04-14-2024 End: 04-14-2024 ambulatory 04/14/2024 9:30 AM EDT Infusion Center Hematology/Oncology [address] [place] [address] IV Fe Hematology/Oncology Comment on above: IV Fe Start: 04-14-2024 End: 04-14-2024 Patient encounter procedure 04/14/2024 8:30 AM EDT Office Visit Palliative Medicine [address] [place] [address] Lillie Hughes, COMPOSITION [employer] [address] [id number] Pall Med appt Ref by Dr Beto Vivar Palliative Medicine Comment on above: Pall Med appt Ref by Dr Beto Vivar Start: 04-07-2024 End: 04-07-2024 ambulatory 04/07/2024 1:30 PM EDT Infusion Center Hematology/Oncology [address] [place] [address] IV Fe x 4 doeses Hematology/Oncology Comment on above: IV Fe x 4 doeses Start: 04-06-2024 End: 04-06-2024 Patient encounter procedure Radiology Pet CT Comment on above: Pet scan and CT CA w ith contrast CT CA with contrast CCN not approved Start: 04-01-2024 Glaucoma screening Diabetic Op hthalmology Exam [facility] Start: 03-30-2024 End: 03-30-2024 ambulatory Hematology/Oncology Comment on above: IV Fe next available IV Fe next available / 4 doses IV Fe next available / 3 doses per phone encounter Start: 03-23-2024 End: 03-23-2024 ambulatory 03/23/2024 4:00 PM EDT Visit (SP) Office Hematology/Oncology [address] [place] [address] Beto Vivar MD [address] [place] [address] Dx: Gastric Carcinoma Hematology/Oncology Comment on above: Dx: Gastric Carcinom a Start: 03-23-2024 End: 06-22-2024 CIRCULATING TUMOR DNA GENOMIC ANALYSIS FOR SOLID TUMORSRESTRICTED TO ONCOLOGY [facility] Comment on above: Expected: 03/23/2024 , Expires: 06/22/2024 Start: 03-23-2024 End: 06-22-2024 Ferritin [Mass/volume] in Serum or Plasma [facility] Comment on above: Expected: 03/23/2024 , Expires: 06/22/2024 Start: 03-23-2024 End: 06-22-2024 Iron and Iron binding capacity panel - Serum or Plasma [facility] Work Phone: Comment on above: Expected: 03/23/2024 , Expires: 06/22/2024 Start: 03-23-2024 End: 06-22-2024 T4/FTI/T4U [facility] Comment on above: Expected: 03/23/2024 , Expires: 06/22/2024 Start: 03-23-2024 End: 06-22-2024 Thyrotropin [Units/volume] in Serum or Plasma [facility] Comment on above: Expected: 03/23/2024 , Expires: 06/22/2024 Start: 03-15-2024 Diabetic foot examination Diabetic F oot Exam [facility] Start: 2024 RSV Vaccine (1 - 1-d ose 60+ series) RSV Vaccine (1 - 1-dose 60+ series) [facility] Start: 12-01-2023 End: 12-01-2023 Patient encounter procedure 12/01/2023 4:00 PM EDT Office Visit [facility] Internal Medicine - Family Medicine [address] [place] [id number] Anna Marie Monge, COMPOSITION [employer] [address] [place] [address] [facility] Start: 09-06-2023 Behavioral Health Screening Behavioral Health Screening [facility] Start: 05-07-2023 Covid-19 Vaccine ( season) Covid-19 Vaccine () [facility] Start: 05-07-2023 Influenza vaccination [facility] Start: 11-11-2022 PNEUMOCOCCAL (2 - PCV) PNEUMOCOCCAL (2 - PCV) [facility] Start: 11-11-2022 Pneumococcal vaccination Pneum ococcal Vaccine (2 - PCV) [facility] Start: 09-06-2022 Depression Assessment Depression Ass essment [facility] Start: 06-19-2022 End: 08-19-2022 PROTEIN ELECTROPHORESIS SERUM W/INTERP PROTEIN ELECTROPHORESIS SERUM W/INTERP Lab Routine Anemia, normocytic normochromic Expected: 06/19/2022 (Approximate), Expires: 08/19/2022 [facility] Work Phone: Comment on above: Expected: 06/19/2022 (Approximate), Expires: 08/19/2022 Start: 06-12-2022 End: 08-12-2022 Thyrotropin [Units/volume] in Serum or Plasma TSH BLD Lab Routine Anemia, normocytic normochromic Expected: 06/12/2022 (Approximate), Expires: 08/12/2022 [facility] Work Phone: Comment on above: Expected: 06/12/2022 (Approximate), Expires: 08/12/2022 Start: 06-05-2022 End: 08-05-2022 Comprehensive metabolic 2000 panel - Serum or Plasma COMP METABOLIC PANEL Lab Routine Anemia, normocytic normochromic Expected: 06/05/2022 (Approximate), Expires: 08/05/2022 [facility] Work Phone: Comment on above: Expected: 06/05/2022 (Approximate), Expires: 08/05/2022 Start: 05-26-2022 End: 07-26-2022 CBC W Auto Differential panel - Blood CBC + DIFF Lab Routine Anemia, normocytic normochromic Expected: 05/26/2022, Expires: 07/26/2022 [facility] Work Phone: Comment on above: Expected: 05/26/2022 , Expires: 07/26/2022 Start: 05-26-2022 End: 07-26-2022 Comprehensive metabolic 2000 panel - Serum or Plasma COMP METABOLIC PANEL Lab Routine Anemia, normocytic normochromic Expected: 05/26/2022, Expires: 07/26/2022 [facility] Work Phone: Comment on above: Expected: 05/26/2022 , Expires: 07/26/2022 Start: 05-26-2022 End: 07-26-2022 Ferritin [Mass/volume] in Serum or Plasma FERRITIN BLD Lab Routine Anemia, normocytic normochromic Expected: 05/26/2022, Expires: 07/26/2022 [facility] Work Phone: Comment on above: Expected: 05/26/2022 , Expires: 07/26/2022 Start: 05-26-2022 End: 07-26-2022 Iron and Iron binding capacity panel - Serum or Plasma IRON + TIBC Lab Routine Anemia, normocytic normochromic Expected: 05/26/2022, Expires: 07/26/2022 [facility] Work Phone: Comment on above: Expected: 05/26/2022 , Expires: 07/26/2022 Start: 05-22-2022 End: 07-22-2022 Cobalamin (Vitamin B12) [Mass/volume] in Serum or Plasma [facility] Work Phone: Comment on above: Expected: 05/22/2022 , Expires: 07/22/2022 Start: 05-22-2022 End: 05-22-2023 Ferritin [Mass/volume] in Serum or Plasma [facility] Work Phone: Comment on above: Expected: 05/22/2022 , Expires: 05/22/2023 Start: 05-22-2022 End: 07-22-2022 Folate [Mass/volume] in Serum or Plasma [facility] Work Phone: Comment on above: Expected: 05/22/2022 , Expires: 07/22/2022 Start: 05-22-2022 End: 05-22-2023 Iron and Iron binding capacity panel - Serum or Plasma [facility] Work Phone: Comment on above: Expected: 05/22/2022 , Expires: 05/22/2023 Start: 05-22-2022 End: 07-22-2022 MONOCLONAL PROTEIN, SERUM (BLOOD) [facility] Work Phone: Comment on above: Expected: 05/22/2022 , Expires: 07/22/2022 Start: 05-22-2022 End: 07-22-2022 PROTEIN ELECT RND UR W/INTERP [facility] Work Phone: Comment on above: Expected: 05/22/2022 , Expires: 07/22/2022 Start: 05-07-2022 Influenza vaccination INFLUENZA (#1) [facility] Start: 09-06-2021 DEPRESSION ASSESSMENT DEPRESSION ASS ESSMENT [facility] Start: 06-04-2017 Adult depression screening assessment DEPRESSION SCREENING [facility] Start: 01-09-2014 Administration of varicella zoster vaccine Zoster (Shingles) Vaccine (1 of 2) [facility] Start: 01-09-2014 SHINGRIX VACCINE (1 of 2) FERGUSON GRIX VACCINE (1 of 2) [facility] Start: 01-09-2009 COLOGUARD (FIT-DNA) COLOGUARD (FIT-D NA) [facility] Start: 01-09-2009 Colonoscopy COLONOSCOPY [facility] Start: 01-09-2009 COLORECTAL CANCER SCREENING COLORECTAL CANCER SCREENING [facility] Start: 01-09-[address] COLONOGRAPHY [facility] Start: 01-09-2009 DIABETES SCREEN DIABETES SCREEN [facility] Start: 01-09-2009 Diabetes Screening Diabetes Screenin g [facility] Start: 01-09-2009 FECAL OCCULT BLOOD FECAL OCCULT BLOO D [facility] Start: 01-09-2009 Lipid 1996 panel - S elissa or Plasma Lipid Screening [facility] Start: 01-09-2009 Lipid panel Lipid Screening [facility] Start: 01-09-2009 LIPID SCREEN LIPID SCREEN [facility] Start: 01-09-2009 Screening for malign ant neoplasm of colon [facility] Start: 01-09-2009 SIGMOIDOSCOPY SIGMOIDOSCOPY [facility] Start: 2004 Mammography [facility] Start: 01-09-1994 HPV TESTING HPV TESTING [facility] Start: 01-09-1994 Zoledronic acid therapy ALPHA- 1 ANTITRYPSIN DEFICIENCY SCREENING [facility] Start: 01-09-1985 PAP TESTING PAP TESTING [facility] Start: 01-09-1985 Screening for malign ant neoplasm of cervix [facility] Start: 01-09-1983 DTaP,Tdap and Td Vac cines (1 - Tdap) DTaP,Tdap and Td Vaccines (1 - Tdap) [facility] Start: 01-09-1983 Urine microalbumin profile [facility] Start: 01-09-1982 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 VISIT ANNUAL PCP TEAM CHRONIC DISEASE VISIT [facility] Start: 01-09-1982 Depression Screening Depression Scre ening [facility] Start: 01-09-1982 HEPATITIS C SCREENING [facility]PATITIS [facility] Start: 01-09-1982 Hepatitis C screening Hepatitis C [facility] Start: 01-09-1982 HIV SCREENING HIV SCREENING [facility] Start: 01-09-1982 HIV screening HIV Screening [facility] Start: 01-09-1970 PNEUMOCOCCAL (1 - PCV) PNEUMOCOCCAL (1 - PCV) [facility] Start: 1964 COVID-19 VACCINE (#1) COVID-19 VACCI NE (#1) [facility] Start: 1965 HEPATITIS B (1 of 3 - 3-dose series) HEPATITIS B (1 of 3 - 3-dose series) [facility] End: 11-16-2024 C difficile by PCR C difficile by PCR Lab Routine Diarrhea of presumed infectious origin 1 Occurrences starting 11/17/2023 until 11/16/2024 [facility] Comment on above: 1 Occurrences starti ng 11/17/2023 until 11/16/2024 End: 04-22-2025 CT Abdomen W contrast IV CT ABDOMEN W IVCON Radiology Routine 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) 1 Occurrences starting 03/23/2024 until 04/22/2025 [facility] Comment on above: 1 Occurrences starti ng 03/23/2024 until 04/22/2025 End: 04-22-2025 CT Chest W contrast IV CT CHEST W IVCON Radiology Routine 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) 1 Occurrences starting 03/23/2024 until 04/22/2025 [facility] Comment on above: 1 Occurrences starti ng 03/23/2024 until 04/22/2025 End: 11-16-2024 GI Panel(stool pathogen panel) GI Panel(stool pathogen panel) Lab Routine Diarrhea of presumed infectious origin 1 Occurrences starting 11/17/2023 until 11/16/2024 [facility] Work Phone: Comment on above: 1 Occurrences starti ng 11/17/2023 until 11/16/2024 End: 04-22-2025 PET+CT Guidance for localization of tumor of Skull base to mid-thigh-- W [id number] IV NM PET/CT SKULL-THIGH INITIAL Radiology Routine 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) 1 Occurrences starting 03/23/2024 until 04/22/2025 [facility] Comment on above: 1 Occurrences starti ng 03/23/2024 until 04/22/2025 [facility] Immunizations Immunization Date Immunization Notes Care Provider Mary mack 06-13-2022 Influenza, injectabl e, Madin [place] Canine Kidney, preservative free, quadrivalent Kostas Furlong DO Work Phone: [facility] 06-13-2022 Pneumococcal Conjuga te 20-valent Kostas Furlong DO Work Phone: [facility] 06-13-2022 influenza virus vaccine, unspecified formulation Kostas Furlong DO Work Phone: [facility] 11-11-2021 Influenza, injectabl e, Madin [place] Canine Kidney, preservative free, quadrivalent Ignacio Sam MD Work Phone: [facility] 11-11-2021 pneumococcal polysaccharide vaccine, 23 valent Ignacio Sam MD Work Phone: [facility] 11-11-2021 influenza virus vaccine, unspecified formulation Ct (I-Stat) [facility] 09-06-2020 influenza, seasonal, injectable Ignacio Sam MD Work Phone: [facility] 07-21-2020 influenza, seasonal, injectable Kostas Furlong DO Work Phone: [facility] 07-02-2020 influenza, injectabl e, quadrivalent, contains preservative Kostas Furlong DO Work Phone: [facility] 06-14-2019 influenza, injectabl e, quadrivalent, contains preservative Kostas Furlong DO Work Phone: [facility] 06-14-2019 pneumococcal polysaccharide vaccine, 23 valent Kostas Furlong DO Work Phone: [facility] 06-28-2017 Influenza, injectabl e, Madin [place] Canine Kidney, preservative free, quadrivalent Ignacio Sam MD Work Phone: [facility] 07-17-2015 influenza, seasonal, injectable, preservative free Ignacio Sam MD Work Phone: [facility] 07-27-2014 influenza, seasonal, injectable, preservative free Ignacio Sam MD Work Phone: [facility] 06-06-2014 influenza, injectabl e, quadrivalent, preservative free Brynn Holliday Other [employer] Other 07-11-2013 influenza virus vaccine, whole virus Kostas Furlong DO Work Phone: [facility] Payers Date Payer Category Payer Self-pay 2013 Medicaid [id number] 1964 Unknown [id number] 2.16.84 0.1.350367.3.579.2.593 1964 Unknown [id number] 2.16.84 0.1.411851.3.579.2.593 1964 Unknown [id number] 2.16.84 0.1.834224.3.579.2.593 1964 Unknown [id number] 2.16.84 0.1.971446.3.579.2.593 1964 Unknown [id number] 2.16.84 0.1.135904.3.579.2.593 1964 Unknown [id number] 2.16.84 0.1.013095.3.579.2.593 1964 Unknown [id number] 2.16.84 0.1.130779.3.579.2.593 1964 Unknown [id number] 2.16.84 0.1.918884.3.579.2.593 1964 Unknown [id number] 2.16.84 0.1.586878.3.579.2.593 1964 Unknown [id number] 2.16.84 0.1.992697.3.579.2.593 1964 Unknown [id number] 2.16.84 0.1.655951.3.579.2.593 1964 Unknown [id number] 2.16.84 0.1.630382.3.579.2.593 1964 Unknown [id number] 2.16.84 0.1.769919.3.579.2.593 1964 Unknown [id number] 2.16.84 0.1.404996.3.579.2.593 1964 Unknown [id number] 2.16.8 40.1.229286.3.579.2.1286 1964 Unknown [id number] 2.16.8 40.1.245073.3.579.2.1286 1964 Unknown [id number] 2.16.8 40.1.023622.3.579.2.1286 1964 Unknown [id number] 2.16.8 40.1.331862.3.579.2.1285 1964 Unknown [id number] 2.16.8 40.1.817492.3.579.2.1285 1964 Unknown [id number] 2.16.8 40.1.267962.3.579.2.1285 1964 Unknown [id number] 2.16.8 40.1.569792.3.579.2.1285 1964 Unknown [id number] 2.16.8 40.1.374597.3.579.2.1285 1964 Unknown [id number] 2.16.8 40.1.151991.3.579.2.1285 1964 Unknown [id number] 2.16.8 40.1.858193.3.579.2.1285 1964 Unknown [id number] 2.16.8 40.1.495240.3.579.2.1285 1964 Unknown [id number] 2.16.8 40.1.399300.3.579.2.1285 1964 Unknown [id number] 2.16.8 40.1.013016.3.579.2.1285 1964 Unknown [id number] 2.16.8 40.1.354975.3.579.2.1285 1964 Unknown [id number] 2.16.8 40.1.856306.3.579.2.1285 1964 Unknown [id number] 2.16.8 40.1.056215.3.579.2.1285 1964 Unknown [id number] 2.16.8 40.1.957825.3.579.2.1285 1964 Unknown [id number] 2.16.8 40.1.838074.3.579.2.1285 1964 Unknown [id number] 2.16.8 40.1.934859.3.579.2.12851964 Unknown [id number] 2.16.840 .1.339633.3.579.2.1286 1964 Unknown [id number] 2.16.8 40.1.760995.3.579.2.1286 1964 Unknown [id number] 2.16.8 40.1.067130.3.579.2.1286 1964 Unknown [id number] 2.16.840 .1.458481.3.579.2.1286 1959 Self-pay [id number] 1959 Unknown [id number] 2.1 6.840.1.487095.19 1959 Unknown [id number] Unknown [id number] 2.16.8 40.1.569005.3.579.2.531 Social History Date Type Detail Facility Unknown if ever smoked [employer] Other Start: 12-03-2020 End: 03-17-2024 Sex Assigned At [place] [employer] Other Start: 10-26-2013 End: 05-22-2022 Tobacco smoking status NHIS Never smoked tobacco [facility] Start: 10-26-2013 End: 05-22-2022 Tobacco use and exposure Smokeless tobacco non-user [facility] Start: 05-21-2022 End: 03-17-2024 Alcohol intake Current non-drinker of alcohol (finding) [facility] Start: 1965 Sex Assigned At Not on file [facility] History of tobacco use Passive smoker [facility] Start: 12-30-2020 End: 05-25-2022 Exposure to SARS-CoV-2 (event) Not sure [facility] Start: 12-03-2020 End: 03-17-2024 History of Social function [facility] National Score (1-10 0), lower number is lower risk Not on file [facility] Start: 08-23-2023 Alcohol intake Ex-drinker (finding) [employer] Has the [employer], or water [employer] threatened to shut off services in your home in past 12Mo No [facility] Are you now , , , , never or living with a partner? [facility] How often to you hav e a drink containing alcohol? Never [facility] How hard is it for y ou to pay for the very basics like food, housing, medical care, and heating Hard [facility] Do you feel stress - tense, restless, nervous, or anxious, or unable to sleep at night because your mind is troubled all the time - these days [OSQ] Rather much [facility] Clinical Notes 06-02-2021 to 04-07-2024 Jackie Silverio LSW - 04/07/2024 3:38 PM EDTTelephone Encounter - Erendira Aguillon RD - 04/07/2024 3:06 PM EDTTelephone Encounter - Erendira Aguillon RD - 04/07/2024 3:06 PM EDT Note Date & Type Note Facility 04-07-2024 History of Present illness Narrative .PSYCHOSOCIAL SCREENING ASSESSMENT Date of Service: April 07, 2024 Kaya Schilling is a 59 year old female being seen for initial social work assessment. Diagnosis: Gastric Cancer New Primary Oncologist: Dr. Beto Vivar Radiation Oncologist: Unknown Goals of Care: unknown Today's visit includes: self/patient Family History of Cancer: Mother SUPPORT NETWORK: Social Connections: Moderately Isolated (08/23/2023) Received from [facility] Social Connection and Isolation Panel [NHANES] Frequency of Communication with Friends and Family: Twice a week Frequency of Social Gatherings with Friends and Family: Once a week Attends Mu-Ism Services: 1 to 4 times per year Active Member of Clubs or Organizations: No Attends Club or Organization Meetings: Never Marital Status: Marital status: Single Parent(s): Mother is living and Father is living Child/Children: Yes. How many? 2 (a son and a daughter) zoo caretaker arrangements needed: No Siblings: 1 sister(s) and 1 brother(s) Grandchild(aaron): > 5 Home Health Provider: No Community Services: No Jayshree Identified: Yes Hindu/Spirituality: Jain Are these practices or beliefs that may affect or influence treatment? Unknown EMPLOYMENT/FINANCIAL/HEALTH INSURANCE: Employment: Longterm Disability Income source: Social Security disability (SSD) Insurance: Medicaid active Prescription coverage: Yes [facility] the [facility] No Financial Distress: Yes, What assistance is needed? Other Cannot afford oral nutrition supplements. Dietitian is involved and address this concern. : No FOOD INSECURITY Within the past year, have you worried about how you would buy or obtain food? No LIVING ARRANGEMENTS: Type: Apartment-independent Resides with: Alone Transportation Needs: No Transportation Needs (03/15/2023) Received from [employer] PRAPARE - Transportation Lack of Transportation (Medical): No Lack of Transportation (Non-Medical): No FUNCTIONAL STATUS: Cognitive limitations: none Physical limitations: none Language barrier: No Hearing Impaired: No Speech Impaired: No Visual Impairments: Yes, Patient is Dsylexic Special considerations/accommodations needed: Yes, Specify needs: Patient has Dyslexia and prefers oral instructions in addition to paper handouts. HEALTH LITERACY: Do you have difficulty understanding medical instructions or other written materials you receive from you doctor or pharmacy? Yes Do have difficulty filling out medical forms by yourself? Yes The following interventions were put into place: Other intervention or special considerations/accomodations: Yes, specify needs Patient has Dyslexia MEDICATION ADHERENCE: Within the past 2 weeks, have you had difficulty remembering to take your medicine? Not asked Within the past 2 weeks, did you ever miss taking your medications for reasons other than forgetting? No The following interventions were put into place: NA MENTAL HEALTH HISTORY: Yes Diagnosis: Bipolar 1 Disorder, Manic Depression, PTSD Current Psychiatrist: Yes Current Behavioral Health Treatment(s): Medication and psychotherapy/counseling History of combat/trauma: No Intimate Partner Violence: Unknown (10/28/2023) Received from [facility] [place] [facility] Fear of Current or Ex-Partner: Not on file Emotionally Abused: Not on file Physically Abused: Not on file Sexually Abused: Not on file Physically or Sexually Abused: Not on file Substance Use and Treatment History: denied History of Abuse: Yes, Resources/Services Received? Emotional Abuse Issues with: Sleep:No Eating:No Exercising: N/A Stress Management: Yes ADVANCE DIRECTIVES/LEGAL DOCUMENTS: Living Will: Not addressed during this encounter Scanned into [employer]: Not addressed during this encounter Health Care Durable Power of Cemetery Worker: Not addressed during this encounter Scanned into EPIC: Not addressed during this encounter Guardianship: NA Scanned into EPIC:NA Reasons Advanced Directives were not Addressed: Patient decline due to feeling overwhelmed Goals of Care Date of Discussion: 04/07/2024 Advance Directives are not on file. SIGNATURE: FLORECITA Francis PATIENT NAME: Kaya Schilling DATE: April 07, 2024 TIME: 3:53 PM PAGER/CONTACT #: COPING STATUS: Stress: Stress Concern Present (03/15/2023) Received from [facility] [place] [facility] - Occupational Stress Questionnaire Feeling of Stress : Rather much Coping Strengths: supportive relationships with immediate family and with friends able to communicate effectively Current affect/mood: anxious and tearful History of Loss: No Adjustment to diagnosis: experiencing difficulty in adjustment to diagnosis/treatment BARRIERS/CARE CHALLENGES: Abuse/Neglect Limited support systems Mental health challenges Multiple psychosocial stressors Are barriers/care challenges identified likely to have an impact on the patient's quality of life during treatment? Yes Emotional Concerns INTERVENTIONS/REFERRALS TO BE PROVIDED: Monitor patient response to treatment Communicate pertinent medical/psychosocial information to Cancer Center team Provide emotional support to patient/family Continue follow up as needed Resources and Referrals: Internal: NA External: N/A CLINICAL IMPRESSION: Patient is a 59 year old female with a diagnosis of gastric cancer. Patient lives alone in an apartment in [place], [place]. Patient reports a strained relationship with her mother and son. Patient shared stories of her traumatic childhood upbringing. SW provided active listening. Patient is under the care of Dr. Ramires (Psychiatrist) at [facility]. Patient is also seen by a counselor [facility] and does not recall her name. Patient does not feel that her mental health needs are properly addressed by her current mental health team. Patient shares that a friend from [place] (Fidelina)is in town to support her for a few weeks. Patient states that she has a good relationship with her father, her step mother and her own daughter. Patient denied any immediate psychosocial needs. SW will continue to follow this Patient in order to provide additional support. Psychosocial Risk Criteria If positive for one or more of the following risk criteria, follow up every 30 days Age: NA Mental Health: History of Severe Mental Illness Practical Needs: N/A PLAN: Follow up PRN Follow up appointment with SW in: PRN Assigned SW listed in Care Team tab: Yes CHUCHO Francis documented in this encounter [facility] 04-07-2024 Telephone encounter Note Thank you Rae. I have started the paperwork process to see if Medicaid will cover oral nutrition supplements and left samples of boost at the frontend engineer for her that she should have picked up. Jackie also aware! Erendira Aguillon RD, JAD [facility] 04-07-2024 Miscellaneous Notes Thank you Rae. I have started the paperwork process to see if Medicaid will cover oral nutrition supplements and left samples of boost at the frontend engineer for her that she should have picked up. Jackie also aware! Erendira Aguillon RD, LD Patient has requested assistance to pay for Boost supplements. She was newly Dx with gastric cancer, has lost a significant amount of weight, states that she drinks a lot of boost noting that it is too expensive for her. 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 She was newly Dx with gastric cancer, has lost a significant amount of weight, states that she drinks a lot of boost noting that it is too expensive for her. 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 Injection given and documented on NOV per provider order. Amirah Koch MA [facility] 04-03-[address] - 04/03/2024 12:50 PM EDT -aim for liberalized diet approach -no need to focus on overall healthy diet at this time. Need to focus on increasing calorie and protein takes -recommend GI soft diet (see handout) -aim for small frequent meals/snacks - eat around the clock every 2-3 hours of foods OR boost/ensure versus waiting on hunger cues -encouraged adequate hydration -aim for 60-64 ounces non-caffeine containing fluids -discussed oral nutrition supplements -Boost Plus or Ensure Plus High Protein or equivalent; goal of 3 per day -will complete paperwork and send to [facility] for insurance determination -incorporate calorie/protein boosting techniques at meals/snacks -whole milk, full fat dairy, cream, butter/margarine, full fat jennings/dressing/condiments, oils, avocado, peanut butter, etc. 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 - apixaban (ELIQUIS) 5 mg tab(s) Take 10 mg by mouth as directed. - docusate sodium (COLACE) 100 mg capsule Take 100 mg by mouth. - polyethylene glycol 3350 17 gram/dose powder Take 17 g by mouth. - atorvastatin (LIPITOR) 40 mg tablet Take 40 mg by mouth once daily. - baclofen 10 mg tablet Take 10 mg by mouth every 6 hours as needed. - zolpidem (AMBIEN) 5 mg tablet TAKE ONE TABLET BY MOUTH DAILY AT BEDTIME NEEDED FOR SLEEP - lithium carbonate (ESKALITH) 300 mg capsule TAKE ONE TABLET BY MOUTH IN THE MORNING AND TWO TABLETS BY MOUTH IN THE EVENING - levothyroxine (SYNTHROID) 100 mcg tablet Take 100 mcg by mouth once daily. - busPIRone (BUSPAR) 15 mg tablet Take [...] 1,000 mg by mouth twice daily. - levomilnacipran ER (FETZIMA ER) 40 mg capsule Take by mouth once daily. - cloNIDine HCl (CATAPRES) 0.1 mg tablet Take 0.1 mg by mouth twice daily. - ALPRAZOLAM 2 mg tablet Take 2 mg by mouth three times daily as needed. Indications: Anxiety Encounter Status:Closed by ERENDIRA AGUILLON on 04/03/24 [facility] 04-03-2024 Note HNO ID: [id number] Author: ERENDIRA AGUILLON RD Service: ? Author Type: Registered Dietitian Type: Progress Notes Filed: 04/03/2024 13:41 Note Text: Oncology Nutrition Therapy Initial Assessment I have communicated my name and active licensure. The patient's identity and physical location were verified at the time of this visit. Either the patient or their legal inside sales representative has been informed of the risks and benefits of -- and alternatives to -- treatment through a remote evaluation and consents to proceed with the evaluation remotely. RECOMMENDED MALNUTRITION DIAGNOSIS: SEVERE PROTEIN-CALORIE MALNUTRITION In the context of Chronic Illness or Injury based on: Unintentional Weight Loss: >7.5% in 3 months Insufficient Energy Intake: Less than 75% energy intake compared to estimated needs for greater than or equal to 1 month Nutrition Diagnosis: Inadequate protein-energy intake, related to gastric cancer, decreased desire for food, as evidenced by pt interview reveals N/V, early satiety, difficulty tolerating some solids, significant weight loss of 28.3% x 2-3 months Nutrition Intervention: -aim for liberalized diet approach -no need to focus on overall healthy diet at this time. Need to focus on increasing calorie and protein takes -recommend GI soft diet (see handout) -aim for small frequent meals/snacks - eat around the clock every 2-3 hours of foods OR boost/ensure versus waiting on hunger cues -encouraged adequate hydration -aim for 60-64 ounces non-caffeine containing fluids -discussed oral nutrition supplements -Boost Plus or Ensure Plus High Protein or equivalent; goal of 3 per day -will complete paperwork and send to [facility] for insurance determination -incorporate calorie/protein boosting techniques at meals/snacks -whole milk, full fat dairy, cream, butter/margarine, full fat jennings/dressing/condiments, oils, avocado, peanut butter, etc. -provided contact information for any further questions/concerns Nutrition Monitoring AND Evaluation: -PO Intake -Wt status -BM's -Supplement tolerance/acceptance -Biochemical Markers -Plan of care Patient's current symptoms are: GI: bloating, nausea, and vomiting Behavioral: altered appetite and early satiety Weight Concerns: weight loss Patient presents for nutrition counseling for: malignant neoplasm for cardia of stomach, weight loss, and questions about ONS. Pt's treatment plan is still pending per chart review as she has PET scan scheduled for this week. Patient's PMHx is significant for COPD, iron deficiency anemia. Pt denies any chewing/swallowing issues, current occasional N/V, early satiety. Denies any C/D. Appetite appears to be good, Intakes are fair to poor. Patient reports intakes vary based on symptoms. She does report yesterday consuming 3 bites of corn/beans/rice/broccoli/peppers casserole, did not tolerate well, experience nausea, abd pain, felt bloated. She reports tolerating some cottage cheese. Last week she reports tolerating a salad. She appears to be focused on needing to eat healthy, but is also very concerned about her weight loss. Reviewed with pt importance of adequate calories/protein and preserving lean muscle mass. Reviewed above interventions, problem solved with pt on ways to meet recommendations, and answered all of patient's questions. Given patient's increased metabolic demand, inadequate oral intakes, significant weight loss, and severe malnutrition, use of an oral nutrition supplement (Boost Plus) is medically necessary to maintain adequate nutrient intakes and weight stability. Thank you for allowing me to participate in the care of this pt. Readiness to Learn: Cognitive ability: Alert and oriented Motivation to learn: Interested Family support: Unable to assess - Family not present Instruction provided to: Patient Patient learns best by: Multiple Methods Factors affecting learning: None Physical limitations affecting learning: None Educational materials provided: GI Soft, High Calorie/High Protein, High Protein Foods Anthropometrics: Height: Last 1 Encounter Ht Readings: Date: Ht: 05/22/2022 165.1 cm (5' 5 ) Current weight: Last 1 Encounter Wt Readings: Date: Wt: 03/23/2024 52.1 kg (114 lb 13.8 oz) Estimated body mass index is 19.11 kg/m? as calculated from the following: Height as of 05/22/22: 165.1 cm (5' 5 ). Weight as of 03/23/24: 52.1 kg (114 lb 13.8 oz). Resting Metabolic Rate: 1096 Weight Change: -20.6kg (28.3%) x 2-3 mo, clinically significant UBW: 160# (72.7kg), per pt 2-3 months ago Dosing Weight: 52.1 kg Estimated kilocalorie needs: 4135-3800 kilocalories determined by 35-40 kcal/kg Estimated protein needs: 63-78 grams determined by 1.2-1.5 g/kg Dosing weight Estimated fluid needs: ~8561-3073 milliliters based on 1 mL per kcal (unless otherwise indicated) Nutrition Focused Physical Exam: Unable to perform (more content not included)... [facility] 04-03-2024 History of Present illness Narrative Oncology Nutrition Therapy Initial Assessment I have communicated my name and active licensure. The patient's identity and physical location were verified at the time of this visit. Either the patient or their legal inside sales representative has been informed of the risks and benefits of -- and alternatives to -- treatment through a remote evaluation and consents to proceed with the evaluation remotely. RECOMMENDED MALNUTRITION DIAGNOSIS: SEVERE PROTEIN-CALORIE MALNUTRITION In the context of Chronic Illness or Injury based on: Unintentional Weight Loss: >7.5% in 3 months Insufficient Energy Intake: Less than 75% energy intake compared to estimated needs for greater than or equal to 1 month Nutrition Diagnosis: Inadequate protein-energy intake, related to gastric cancer, decreased desire for food, as evidenced by pt interview reveals N/V, early satiety, difficulty tolerating some solids, significant weight loss of 28.3% x 2-3 months Nutrition Intervention: -aim for liberalized diet approach -no need to focus on overall healthy diet at this time. Need to focus on increasing calorie and protein takes -recommend GI soft diet (see handout) -aim for small frequent meals/snacks - eat around the clock every 2-3 hours of foods OR boost/ensure versus waiting on hunger cues -encouraged adequate hydration -aim for 60-64 ounces non-caffeine containing fluids -discussed oral nutrition supplements -Boost Plus or Ensure Plus High Protein or equivalent; goal of 3 per day -will complete paperwork and send to [facility] for insurance determination -incorporate calorie/protein boosting techniques at meals/snacks -whole milk, full fat dairy, cream, butter/margarine, full fat jennings/dressing/condiments, oils, avocado, peanut butter, etc. -provided contact information for any further questions/concerns Nutrition Monitoring & Evaluation: -PO Intake -Wt status -BM's -Supplement tolerance/acceptance -Biochemical Markers -Plan of care Patient's current symptoms are: GI: bloating, nausea, and vomiting Behavioral: altered appetite and early satiety Weight Concerns: weight loss Patient presents for nutrition counseling for: malignant neoplasm for cardia of stomach, weight loss, and questions about ONS. Pt's treatment plan is still pending per chart review as she has PET scan scheduled for this week. Patient's PMHx is significant for COPD, iron deficiency anemia. Pt denies any chewing/swallowing issues, current occasional N/V, early satiety. Denies any C/D. Appetite appears to be good, Intakes are fair to poor. Patient reports intakes vary based on symptoms. She does report yesterday consuming 3 bites of corn/beans/rice/broccoli/peppers casserole, did not tolerate well, experience nausea, abd pain, felt bloated. She reports tolerating some cottage cheese. Last week she reports tolerating a salad. She appears to be focused on needing to eat healthy, but is also very concerned about her weight loss. Reviewed with pt importance of adequate calories/protein and preserving lean muscle mass. Reviewed above interventions, problem solved with pt on ways to meet recommendations, and answered all of patient's questions. Given patient's increased metabolic demand, inadequate oral intakes, significant weight loss, and severe malnutrition, use of an oral nutrition supplement (Boost Plus) is medically necessary to maintain adequate nutrient intakes and weight stability. Thank you for allowing me to participate in the care of this pt. Readiness to Learn: Cognitive ability: Alert and oriented Motivation to learn: Interested Family support: Unable to assess - Family not present Instruction provided to: Patient Patient learns best by: Multiple Methods Factors affecting learning: None Physical limitations affecting learning: None Educational materials provided: GI Soft, High Calorie/High Protein, High Protein Foods Anthropometrics: Height: Last 1 Encounter Ht Readings: Date: Ht: 05/22/2022 165.1 cm (5' 5 ) Current weight: Last 1 Encounter Wt Readings: Date: Wt: 03/23/2024 52.1 kg (114 lb 13.8 oz) Estimated body mass index is 19.11 kg/m as calculated from the following: Height as of 05/22/22: 165.1 cm (5' 5 ). Weight as of 03/23/24: 52.1 kg (114 lb 13.8 oz). Resting Metabolic Rate: 1096 Weight Change: -20.6kg (28.3%) x 2-3 mo, clinically significant UBW: 160# (72.7kg), per pt 2-3 months ago Dosing Weight: 52.1 kg Estimated kilocalorie needs: 1641-1883 kilocalories determined by 35-40 kcal/kg Estimated protein needs: 63-78 grams determined by 1.2-1.5 g/kg Dosing weight Estimated fluid needs: ~3861-5764 milliliters based on 1 mL per kcal (unless otherwise indicated) Nutrition Focused Physical Exam: Unable to perform exam due to patient unable to participate due to encounter type (phone), will re-attempt during reassessment. Potential Signs of Inflammation: hypoalbuminemia and chronic condition Allergies: Percocet [Oxycodone-Acetaminophen] and Stadol [Butorphanol Tartrate] Medications: Current Outpatient Medications Medication Sig Dispense Refill gabapentin (NEURONTIN) 100 mg capsule Take by mouth. apixaban (ELIQUIS) 5 mg tab(s) Take 10 mg by mouth as directed. docusate sodium (COLACE) 100 mg capsule Take 100 mg by mouth. polyethylene glycol 3350 17 gram/dose powder Take 17 g by mouth. atorvastatin (LIPITOR) 40 mg tablet Take 40 mg by mouth once daily. baclofen 10 mg tablet Take 10 mg by mouth every 6 hours as needed. zolpidem (AMBIEN) 5 mg tablet TAKE ONE TABLET BY MOUTH DAILY AT BEDTIME NEEDED FOR SLEEP lithium carbonate (ESKALITH) 300 mg capsule TAKE ONE TABLET BY MOUTH IN THE MORNING AND TWO TABLETS BY MOUTH IN THE EVENING levothyroxine (SYNTHROID) 100 mcg tablet Take 100 mcg by mouth once daily. busPIRone (BUSPAR) 15 mg tablet Take 15 mg by mouth twice daily. glipiZIDE (GLUCOTROL XL) 10mg 24 hr tablet Take 10 mg by mouth once daily. lactulose (DUPHALAC, CONSTULOSE) 10 gram/15 mL solution TAKE 60 ML TWICE DAILY loratadine (CLARITIN) 10 mg tablet Take 10 mg by mouth once daily. losartan (COZAAR) 100 mg tablet Take 100 mg by mouth once daily. montelukast (SINGULAIR) 10 mg tablet Take 10 mg by mouth once daily. omeprazole (PRILOSEC) 20 mg capsule promethazine (PHENERGAN) 25 mg tablet Take 25 mg by mouth every 6 hours as needed. metFORMIN (GLUCOPHAGE) 1,000 mg tablet Take 1,000 mg by mouth twice daily. levomilnacipran ER (FETZIMA ER) 40 mg capsule Take by mouth once daily. cloNIDine HCl (CATAPRES) 0.1 mg tablet Take 0.1 mg by mouth twice daily. ALPRAZOLAM 2 mg tablet Take 2 mg by mouth three times daily as needed. Indications: Anxiety No current facility-administered medications for this visit. Need for Follow up: will continue to follow Referred by: pt self MNT Billing Type: Initial Assess/15 min 1 unit Time Spent with Patient: 15 minutes Signed by: Erendira Aguillon MS, RD, LD documented in this encounter [facility] 03-29-2024 Telephone encounter Note Results printed from Care Everywhere and placed in Dr's mail folder for review. Brea Villagomez RN [facility] Work Phone: 03-29-2024 Miscellaneous Notes Results printed from Care Everywhere and placed in 's mail folder for review. Brea Villagomez RN Per Minal @ [facility], pt's HER2 FISH analysis is still pending. Brea Villagomez RN documented in this encounter [facility] 03-28-2024 Telephone encounter Note Pt called for I need stronger pain meds. 03/23/24 pt had spoke with BRM and pt was referred to PCP for management of pain medications, until follow up with pall med 04/14/24. Discussed with pt. She will call PCP, and was transferred to PSS to see if appt can be moved sooner. BRM: BRIAN Aranda RN [facility] 03-28-2024 Miscellaneous Notes Pt called for I need stronger pain meds. 03/23/24 pt had spoke with BRM and pt was referred to PCP for management of pain medications, until follow up with pall med 04/14/24. Discussed with pt. She will call PCP, and was transferred to PSS to see if appt can be moved sooner. BRM: BRIAN Aranda RN documented in this encounter [facility] 03-24-2024 Telephone encounter Note Pt called the acute care occupational therapist service last night for pain. Called to discuss and pt VM full. Plan per BRM OV 03/23/24 [place] PRN pain and pall med referral. Pt is schedule with K Saul 04/14/24. BORA Cantor RN spoke with BRM and he did talk with pt last night. She was encouraged to see PCP, if needed for further pain control, until her scheduled new pt appt with pall med at our facility 04/14/24. Tena Aranda RN [facility] 03-24-2024 Miscellaneous Notes Pt called the acute care occupational therapist service last night for pain. Called to discuss and pt VM full. Plan per BRM OV 03/23/24 [place] PRN pain and pall med referral. Pt is schedule with K Saul 04/14/24. BORA Cantor RN spoke with BRM and he did talk with pt last night. She was encouraged to see PCP, if needed for further pain control, until her scheduled new pt appt with pall med at our facility 04/14/24. Tena Aranda RN documented in this encounter [facility] 03-23-2024 Nurse Note Patient Identification confirmed: yes. Injection given and documented on NOV per provider order. Amirah Koch MA [facility] 03-23-2024 Telephone encounter Note Per Minal @ [facility], pt's HER2 FISH analysis is still pending. Brea Villagomez RN [facility] 03-22-2024 Note HNO ID: [id number] Author: BETO VIVAR MD Service: ? Author Type: Physician Type: Progress Notes Filed: 03/24/2024 09:52 Note Text: PATIENT NAME: Kaya Schilling DATE: 03/23/2024 PRIMARY CARE PHYSICIAN: Kostas Steward DO OTHER PHYSICIANS: Dr. Cong Montano, Dr. Ramires (Psych in [place]) HPI: This is a 59 year old female with recently diagnosed gastric cancer, referred for further management. The patient presented 02/13/2024 to [facility] emergency room for evaluation of left sided chest pain and abdominal pain. Chest CTA revealed bilateral pulmonary emboli for which she was started Eliquis. Also seen was a gastric mass. She was seen by surgery (Dr. Montano) and underwent EGD on 03/02/2024. This revealed a malignant tumor at the gastroesophageal junction involving the cardia. Biopsy revealed adenocarcinoma consistent with gastric primary. Colonoscopy 03/02/2024 revealed a benign polyp in the distal ascending colon, otherwise negative. Review of systems consistent with weight loss of 50 lbs over the past 3 months. Stools are dark, but no blood. Has intermittent pain over left upper quadrant and lower abdomen ., On [place] with relief. Not maarried. 2 children. Family history negative. MEDICATIONS: Current Outpatient Medications Medication Sig apixaban (ELIQUIS) 5 mg tab(s) Take 10 mg by mouth as directed. docusate sodium (COLACE) 100 mg capsule Take 100 mg by mouth. polyethylene glycol 3350 17 gram/dose powder Take 17 g by mouth. atorvastatin (LIPITOR) 40 mg tablet Take 40 mg by mouth once daily. baclofen 10 mg tablet Take 10 mg by mouth every 6 hours as needed. zolpidem (AMBIEN) 5 mg tablet TAKE ONE TABLET BY MOUTH DAILY AT BEDTIME NEEDED FOR SLEEP lithium carbonate (ESKALITH) 300 mg capsule TAKE ONE TABLET BY MOUTH IN THE MORNING AND TWO TABLETS BY MOUTH IN THE EVENING levothyroxine (SYNTHROID) 100 mcg tablet Take 100 mcg by mouth once daily. azithromycin (ZITHROMAX) 250 mg tablet Take by mouth as directed. TAKE 2 TABLETS BY MOUTH TODAY, THEN TAKE 1 TABLET DAILY FOR 4 DAYS busPIRone (BUSPAR) 15 mg tablet Take 15 mg by mouth twice daily. glipiZIDE (GLUCOTROL XL) 10mg 24 hr tablet Take 10 mg by mouth once daily. lactulose (DUPHALAC, CONSTULOSE) 10 gram/15 mL solution TAKE 60 ML TWICE DAILY loratadine (CLARITIN) 10 mg tablet Take 10 mg by mouth once daily. losartan (COZAAR) 100 mg tablet Take 100 mg by mouth once daily. montelukast (SINGULAIR) 10 mg tablet Take 10 mg by mouth once daily. omeprazole (PRILOSEC) 20 mg capsule promethazine (PHENERGAN) 25 mg tablet Take 25 mg by mouth every 6 hours as needed. metFORMIN (GLUCOPHAGE) 1,000 mg tablet Take 1,000 mg by mouth twice daily. budesonide/formoterol fumarate (SYMBICORT INHALATION) Inhale as instructed. levomilnacipran ER (FETZIMA ER) 40 mg capsule Take by mouth once daily. cloNIDine HCl (CATAPRES) 0.1 mg tablet Take 0.1 mg by mouth twice daily. METOCLOPRAMIDE HCL 10 mg tablet as needed. ALPRAZOLAM 2 mg tablet Take 2 mg by mouth three times daily as needed. Indications: Anxiety No current facility-administered medications for this visit. ALLERGIES: ALLERGIES Allergen Reactions Percocet [Oxycodone* GI Upset Stadol [Butorphanol* Vomiting incoherent PAST MEDICAL HISTORY: PAST MEDICAL HISTORY Diagnosis Date Acute pulmonary embolism without acute cor pulmonale, unspecified pulmonary embolism type (HCC) Anemia Arthritis Bipolar 1 disorder (HCC) Broken jaw (HCC) no surgery COPD (chronic obstructive pulmonary disease) (HCC) Diabetes mellitus (adult onset) (HCC) Gastric carcinoma (HCC) History of broken nose had septoplasty Manic depression (HCC) Dr. Rees Midline low back pain without sciatica, unspecified chronicity Neck pain Pneumonia PTSD (post-traumatic stress disorder) Scoliosis Thyroid disease Unintended weight loss PAST SURGICAL HISTORY: PAST SURGICAL HISTORY Procedure Laterality Date BLADDER SURGERY HX mesh sling COLONOSCOPY w/EGD AND biopsy of stomach mass EXCIS BARTHOLIN GLAND/CYST NOSE SURGERY HX septum rconstruction REPAIR RECTOCELE SEPARATE PROCEDURE THYROID SURGERY HX biopsy done no CA TUBAL LIGATION HX FAMILY HISTORY: FAMILY HISTORY Problem Relation Age of Onset other (high blood pressure [Other]) Mother other (high blood pressure [Other]) Sister other (heat attack [Other]) Mother other (heart attack [Other]) Father Diabetes Sister Diabetes Maternal Grandmother Diabetes Maternal Grandfather Cancer Mother SOCIAL HISTORY: Social History Tobacco Use Smoking status: Never Passive exposure: Past Smokeless tobacco: Never Substance Use Topics Alcohol use: No Drug use: No COMPLETE REVIEW OF SYSTEMS: CONSTITUTION: Negative for pain, fatigue, weight loss, or appetite loss. EENT: Negative for mouth soreness, antibiotics use, epistaxis, visual problems, neck or facial swelling, fever/chills (more content not included)... [facility] 03-22-2024 History of Present illness Narrative PATIENT NAME: Kaya Schilling DATE: 03/23/2024 PRIMARY CARE PHYSICIAN: Kostas Steward DO OTHER PHYSICIANS: Dr. Cong Montano, Dr. Ramires (Psych in [place]) HPI: This is a 59 year old female with recently diagnosed gastric cancer, referred for further management. The patient presented 02/13/2024 to [facility] emergency room for evaluation of left sided chest pain and abdominal pain. Chest CTA revealed bilateral pulmonary emboli for which she was started Eliquis. Also seen was a gastric mass. She was seen by surgery (Dr. Montano) and underwent EGD on 03/02/2024. This revealed a malignant tumor at the gastroesophageal junction involving the cardia. Biopsy revealed adenocarcinoma consistent with gastric primary. Colonoscopy 03/02/2024 revealed a benign polyp in the distal ascending colon, otherwise negative. Review of systems consistent with weight loss of 50 lbs over the past 3 months. Stools are dark, but no blood. Has intermittent pain over left upper quadrant and lower abdomen ., On [place] with relief. Not maarried. 2 children. Family history negative. MEDICATIONS: Current Outpatient Medications Medication Sig apixaban (ELIQUIS) 5 mg tab(s) Take 10 mg by mouth as directed. docusate sodium (COLACE) 100 mg capsule Take 100 mg by mouth. polyethylene glycol 3350 17 gram/dose powder Take 17 g by mouth. atorvastatin (LIPITOR) 40 mg tablet Take 40 mg by mouth once daily. baclofen 10 mg tablet Take 10 mg by mouth every 6 hours as needed. zolpidem (AMBIEN) 5 mg tablet TAKE ONE TABLET BY MOUTH DAILY AT BEDTIME NEEDED FOR SLEEP lithium carbonate (ESKALITH) 300 mg capsule TAKE ONE TABLET BY MOUTH IN THE MORNING AND TWO TABLETS BY MOUTH IN THE EVENING levothyroxine (SYNTHROID) 100 mcg tablet Take 100 mcg by mouth once daily. azithromycin (ZITHROMAX) 250 mg tablet Take by mouth as directed. TAKE 2 TABLETS BY MOUTH TODAY, THEN TAKE 1 TABLET DAILY FOR 4 DAYS busPIRone (BUSPAR) 15 mg tablet Take 15 mg by mouth twice daily. glipiZIDE (GLUCOTROL XL) 10mg 24 hr tablet Take 10 mg by mouth once daily. lactulose (DUPHALAC, CONSTULOSE) 10 gram/15 mL solution TAKE 60 ML TWICE DAILY loratadine (CLARITIN) 10 mg tablet Take 10 mg by mouth once daily. losartan (COZAAR) 100 mg tablet Take 100 mg by mouth once daily. montelukast (SINGULAIR) 10 mg tablet Take 10 mg by mouth once daily. omeprazole (PRILOSEC) 20 mg capsule promethazine (PHENERGAN) 25 mg tablet Take 25 mg by mouth every 6 hours as needed. metFORMIN (GLUCOPHAGE) 1,000 mg tablet Take 1,000 mg by mouth twice daily. budesonide/formoterol fumarate (SYMBICORT INHALATION) Inhale as instructed. levomilnacipran ER (FETZIMA ER) 40 mg capsule Take by mouth once daily. cloNIDine HCl (CATAPRES) 0.1 mg tablet Take 0.1 mg by mouth twice daily. METOCLOPRAMIDE HCL 10 mg tablet as needed. ALPRAZOLAM 2 mg tablet Take 2 mg by mouth three times daily as needed. Indications: Anxiety No current facility-administered medications for this visit. ALLERGIES: ALLERGIES Allergen Reactions Percocet [Oxycodone* GI Upset Stadol [Butorphanol* Vomiting incoherent PAST MEDICAL HISTORY: PAST MEDICAL HISTORY Diagnosis Date Acute pulmonary embolism without acute cor pulmonale, unspecified pulmonary embolism type (HCC) Anemia Arthritis Bipolar 1 disorder (HCC) Broken jaw (HCC) no surgery COPD (chronic obstructive pulmonary disease) (HCC) Diabetes mellitus (adult onset) (HCC) Gastric carcinoma (HCC) History of broken nose had septoplasty Manic depression ([facility]) Dr. Rees Midline low back pain without sciatica, unspecified chronicity Neck pain Pneumonia PTSD (post-traumatic stress disorder) Scoliosis Thyroid disease Unintended weight loss PAST SURGICAL HISTORY: PAST SURGICAL HISTORY Procedure Laterality Date BLADDER SURGERY HX mesh sling COLONOSCOPY w/EGD & biopsy of stomach mass EXCIS BARTHOLIN GLAND/CYST NOSE SURGERY HX septum rconstruction REPAIR RECTOCELE SEPARATE PROCEDURE THYROID SURGERY HX biopsy done no CA TUBAL LIGATION HX FAMILY HISTORY: FAMILY HISTORY Problem Relation Age of Onset other (high blood pressure [Other]) Mother other (high blood pressure [Other]) Sister other (heat attack [Other]) Mother other (heart attack [Other]) Father Diabetes Sister Diabetes Maternal Grandmother Diabetes Maternal Grandfather Cancer Mother SOCIAL HISTORY: Social History Tobacco Use Smoking status: Never Passive exposure: Past Smokeless tobacco: Never Substance Use Topics Alcohol use: No Drug use: No COMPLETE REVIEW OF SYSTEMS: CONSTITUTION: Negative for pain, fatigue, weight loss, or appetite loss. EENT: Negative for mouth soreness, antibiotics use, epistaxis, visual problems, neck or facial swelling, fever/chills, bleeding gums, or hearing loss. CV: Negative for edema, calf swelling, palpitations, or chest pain. RESPIRATORY: Negative for cough, SOB, hemoptysis, or wheezing. GI: Negative for nausea/vomiting, heartburn, vomiting blood, dysphasia, diarrhea, blood in stool, constipation, early satiety, PICA, vegetarian, poor nutrition, abdominal fullness, or abdominal pain. NEUROLOGICAL: Negative for numbness/tingling, dizziness, gait disturbance, headache, speech disturbance, tremor, hemiparesis/sensory loss, or change in mental status. MUSCULOSKELETAL: Negative for joint pain, joint swelling, or proximal muscle weakness. SKIN: Negative for hair loss, bruising, nail changes, rash, itching, pallor, or jaundice. ENDO/URO: Negative for hot flashes, cold or heat intolerance, urinary frequency, urinary hesitancy, menorrhagia, or hematuria. PSYCH: Negative for anxiety, depression, or other. PHYSICAL EXAM: BP 172/84 Pulse 79 Temp 36.6 C (97.8 F) (Temporal) Resp 16 Wt 52.1 kg (114 lb 13.8 oz) LMP 05/28/2016 (Approximate) SpO2 100% BMI 19.11 kg/m GENERAL EXAM: Well developed/well nourished; in no acute distress. SKIN: Negative for lesions, rashes, or ulcers on the upper and lower extremities and face. Negative for palpations/nodules, purpura, and ecchymosis. EENT: Negative for conjunctiva, mucosal pallor, JVD, LAP, thyromegaly, and glossitis. Supple & PERRL. Multiple left supraclav LNs EXTREMITIES: Negative for cyanosis, clubbing, and crepitus. LUNGS: Negative to auscultation, respiratory effort, and percussion. CARDIOVASCULAR: Regular rate. Negative for murmurs/S3S4/abnormal sounds, edema, and carotid bruits. ABDOMEN: Negative for masses, hernia, and spleen/liver abnormalities. RECTAL: Not done PSYCHIATRIC: Negative for mood/affect changes, recent & remote memory changes, and judgement and insight. NEUROLOGICAL: Alert, oriented x person, place, time. Cranial nerves 2-12 intact. Sensory for pain, light touch, vibration intact on all 4 extremities. Reflexes symmetric for biceps/brachioradial/patella/achil les. MUSCULOSKELETAL: Negative examination of joints, bones, muscles/tendons of all four extremities for inspection, percussion, and palpation. Negative for misallignment, asymmetry, crepitation, tenderness, mass, effusions. Range of motion normal. Negative for joint instability, laxity, dislocation. Gait steady. Negative for swelling, erythema, tenderness, soft tissue swelling, and atrophy. PATHOLOGY: 03/02/2024 Cardia mass biopsy ([facility]) Invasive adenocarcinoma, intestinal type, low-grade HER2 2+ (equivocal), FISH pending LABS: Hemoglobin (g/dL) Date Value 03/23/2024 7.6 03/11/2015 13.3 Hematocrit (%) Date Value 03/23/2024 22.5 03/11/2015 39.2 WBC (k/uL) Date Value 03/23/2024 4.75 03/11/2015 6.56 Platelet Count (k/uL) Date Value 03/23/2024 247 03/11/2015 464 RADIOLOGY/OTHER STUDIES: 02/13/2024 Chest CTA ([facility]) Acute pulmonary embolism involving segmental branches of the left upper lobe and interlobar and segmental branches of right middle and lower lobes. 2.6 x 5.6 cm enhancing intraluminal mass along the lesser curvature suspicious for gastric cancer Gastrohepatic ligament lymphadenopathy representing metastasis 11/19/2023 CT abdomen/pelvis ([facility]) Mild wall thickening of the colon is seen suggestive of mild colitis. Multiple enlarged retroperitoneal lymph nodes are seen with a nearly confluent appearance measuring up to 3 cm in transverse diameter. Multiple enlarged lymph nodes are also seen about the celiac axis measuring 2 cm. ASSESSMENT/PLAN: 1. 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 Chest CTA revealed a gastric mass. EGD 03/02/2024 revealed a malignant tumor at the gastric cardia. Biopsy revealed adenocarcinoma consistent with gastric primary. Stage with diagnostic CT CAP and PET scan. Check HER2 and TMB on biopsy specimen. Check NGS ([facility]). Based on results - surgery, chemoradiation, palliative chemotherapy. Return in 2 weeks for follow-up. 2. Pulmonary embolism (HCC) - ICD9: 415.19, ICD10: I26.99 Chest CTA obtained 02/13/2024 for evaluation of pain revealed multiple pulmonary emboli. Anticoagulation with Eliquis started at the time of diagnosis. Continue per PCP. 3. Type 2 diabetes mellitus (HCC) - ICD9: 250.00, ICD10: E11.9 4. Bipolar affective disorder - (HCC) - ICD9: 296.80, ICD10: F31.9 5. Acquired hypothyroidism - ICD9: 244.9, ICD10: E03.9 6. History of hepatitis C - ICD9: V12.09, ICD10: Z86.19 Dx approximately 2004. Therapy per GI (Dr. Saha) with CR. 7. Anemia - ICD9: 285.9, ICD10: D64.9 The patient has a long history of anemia, multifactorial etiology. Labs obtained May 2022 revealed severe iron deficiency and B12 deficiency. Will check levels today. Start parental B12. IV iron if ferritin low. 8. Cancer related pain - ICD9: 338.3, ICD10: G89.3 Pain LUQ and lower abd. Continue [place] PRN. Pall med referral. Beto Vivar MD CC: Dr. Cong Montano documented in this encounter [facility] 12-06-2023 Nurse Note Patient Identification confirmed: yes. Injection given and documented on NOV per provider order. Amirah Koch MA documented in this encounter [facility] 12-06-2023 Nurse Note Patient Identification confirmed: yes. Injection given and documented on NOV per provider order. Amirah Koch MA documented in this encounter [facility] 11-17-2023 History of Present illness Narrative [address] [place] [id number] Patient: Kaya Schilling Date of : 1965 [...] Visit via Real-time Synchronous Audiovisual Provider Location: [facility] [address] [place] [id number] Patient Location: Patient's home Video Visit Consent [...] that there are some limitations compared to [id number] evaluations. The patient consented to the presence of additional virtual and/or in-person participants. We elected to proceed. Problem List Items Addressed This Visit Endocrine Type 2 diabetes mellitus without complication, without long-term current use of insulin ([facility] [place] Hyperparathyroidism ([facility] [place] Other Visit Diagnoses Diarrhea of presumed infectious [...] Medical History: Diagnosis Date Bipolar 1 disorder ([facility] [place] Elevated parathyroid hormone Empty sella ([facility] [place] Female bladder prolapse Hepatitis C Hypercalcemia Hypothyroidism Manic depression ([facility] [place] Migraine Scoliosis Past Surgical History: Procedure Laterality [...] complication, without long-term current use of insulin ([facility] [place] Hyperparathyroidism ([facility] [place] Other orders - promethazine (PHENERGAN) 12.5 mg tablet; Take 1 tablet (12.5 mg total) by mouth every 8 (eight) hours as needed for nausea or vomiting for up to 5 days. Follow-up: Since her diarrhea symptoms have been persistent for the last week we will check stool pathogen panel and C diff. she agrees to go to [facility] for this. Risks of Phenergan including [...] tolerate PO intake she should call 911. [phone] 20min DAHLIA JANE APRN-CNP 11/20/23 0914 documented in this encounter [facility] 11-11-2023 Miscellaneous Notes Pt calls states she has that new virus called Norovirus. She is feeling better. Told her to try the brat diet documented in this encounter [facility] 11-11-2023 Telephone encounter Note Pt calls states she has that new virus called Norovirus. She is feeling better. Told her to try the brat diet [facility] 11-05-2023 Miscellaneous Notes Pt called and just wanted to let us know she is sick and I told her we are closed and please if drink plenty of water and if she gets worse please go to Local hospital to be checked documented in this encounter [facility] 11-05-2023 Telephone encounter Note Pt called and just wanted to let us know she is sick and I told her we are closed and please if drink plenty of water and if she gets worse please go to Local hospital to be checked [facility] 07-03-2022 Miscellaneous Notes per answering service, pt cx today rv and tx appointments due to being up all night sick will call back to reschedule. documented in this encounter [facility] 06-04-2022 Miscellaneous Notes Patient left a message on my voicemail today to get this appointment scheduled. Call placed to patient, no answer. Left message on voicemail to call back to reschedule. Roberta Vaughan Per Answering Service message patient called requested to cancel this appointment and stated she will call us back to reschedule. Hanna Pop documented in this encounter [facility] 05-29-2022 Miscellaneous Notes Patient is listed on the First Time Treatment List for a non-oncology treatment. No psychosocial assessment is indicated. CHUCHO Francis documented in this encounter [facility] 05-28-2022 Miscellaneous Notes Called Amada Nash spoke with Luisa. She states they have received this referral and their injury prevention coordinator will be calling patient soon to schedule. Hanna Pop Records faxed to [facility]. Appointments moved to next (06/04). Called pt, [...] AM EDT ----- ----- Message ----- From: Ignacio Sam MD Sent: 05/23/2022 4:49 PM EDT To: Sharron Keenan RN Please let patient know that she has both B12 and Iron def and will need to have all replaced. Would recommend IV and IM B12 replacement if she is in agreement. She also will need an upper and lower endoscopy to further evaluate as well,. documented in this encounter [facility] 05-26-2022 Miscellaneous Notes Patient scheduled to see you on 06/04/22 for follow up with labs. Please add lab orders. Thanks. Amirah Koch MA documented in this encounter [facility] 05-22-2022 History of Present illness Narrative PATIENT NAME: Kaya Schilling CLINIC NO.: [id number] ATTENDING PHYSICIAN: Ignacio Sam MD DATE OF SERVICE: May 22, [...] Arthritis Bipolar 1 disorder (HCC) Broken jaw ([facility]) no surgery COPD (chronic obstructive pulmonary disease) ([facility]) Diabetes mellitus (adult onset) ([facility]) History of broken nose had septoplasty Manic depression ([facility]) Dr. Rees Neck pain Pneumonia PTSD (post-traumatic [...] 11/03/2013 1.21 1.00 - 4.00 k/uL Final [place]% Date Value Ref Range Status 11/03/2013 7.7 % Final Abs [place] Date Value Ref Range Status 11/03/2013 0.36 0.00 - 0.86 k/uL Final Abs [place] Date Value Ref Range Status 11/03/2013 0.12 0.00 - 0.45 k/uL Final Bas[place]% Date Value Ref Range Status 11/03/2013 0.9 % Final Abs Baso Date Value Ref Range Status 11/03/2013 0.04 0.00 - 0.10 k/uL Final Comment: Performed at [facility] , [address] [place] [address] PATH: IMAGING: ASSESSMENT AND PLAN: Kaya Schilling [...] to contact me at the number below. Ignacio Sam M.D. Hematology/Medical Oncology [facility] [phone] CC: Kostas Steward, I spent a total of 40 minutes on the date of the service which included preparing to see the patient, [id number] patient care, completing clinical documentation, obtaining and/or reviewing separately obtained history, performing a medically appropriate examination, counseling and educating the patient/family/caregiver, and ordering medications, tests, or procedures. documented in this encounter [facility] 04-23-2022 Evaluation note Encounter Date Diagnosis Assessment Notes Apr, Irritable bowel syndrome with constipation (ICD-10 - K58.1) [employer] Other 12-13-2021 Evaluation note* Encounter Date Diagnosis Assessment Notes Treatment Notes Treatment Clinical Notes Aug, Irritable bowel syndrome with constipation (ICD-10 - K58.1) [employer] Other 11-17-2021 Evaluation note* Encounter Date Diagnosis Assessment Notes Treatment Notes Treatment Clinical Notes Jul, Redundant colon (ICD-10 - Q43.8) Jul, Irritable bowel syndrome with constipation (ICD-10 - K58.1) Increase lactuose to 60cc bid Colonoscopy Jul, Elevated alkaline phosphatase level (ICD-10 - R74.8) Jul, History of hepatitis C (ICD-10 - Z86.19) Jul, Diabetes (ICD-10 - E11.9) [employer] Other 09-27-2021 Evaluation note* Encounter Date Diagnosis [...] mellitu s) (ICD-10 - E11.9) She has qag-[id number]-[id number] type 2 diabetes mellitus currently takes oral [...] avoid any calcium and vitamin D supplement. 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 Other vitamin B12 deficiency anemia [facility] Diagnosis Anemia, normocytic normochromic- Primary Anemia, unspecified [facility] Diagnosis Disorder of airway Unspecified disease of respiratory system Airway obstruction, anatomic Other diseases of respiratory system, not elsewhere classified [facility] Diagnosis Acquired hypothyroidism Unspecified hypothyroidism [facility] Diagnosis Type 2 diabetes mellitus without complication, without long-term current use of insulin ([facility] Diagnosis Diarrhea of presumed infectious origin- Primary Weakness Other malaise and fatigue Type 2 diabetes mellitus without complication, without long-term current use of insulin ([facility]) Hyperparathyroidism ([facility]) Hyperparathyroidism, unspecified [facility] Diagnosis Megaloblastic anemia due to vitamin B12 deficiency- Primary Other vitamin B12 deficiency anemia [facility] Diagnosis 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 Malignant neoplasm of cardia Other pulmonary embolism without acute cor pulmonale, unspecified chronicity (HCC) Acquired hypothyroidism Unspecified hypothyroidism Cancer related pain Neoplasm related pain (acute) (chronic) Megaloblastic anemia due to vitamin B12 deficiency Other vitamin B12 deficiency anemia Iron deficiency anemia due to chronic blood loss Iron deficiency anemia secondary to blood loss (chronic) [facility] Diagnosis Megaloblastic anemia due to vitamin B12 deficiency- Primary Other vitamin B12 deficiency anemia Iron deficiency anemia due to chronic blood loss Iron deficiency anemia secondary to blood loss (chronic) [facility] Diagnosis Severe protein-calorie malnutrition (HCC)- Primary Other severe protein-calorie malnutrition 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) Malignant neoplasm of cardia [facility] Diagnosis Megaloblastic anemia due to vitamin B12 deficiency- Primary Other vitamin B12 deficiency anemia [facility] Diagnosis Megaloblastic anemia due to vitamin B12 deficiency- Primary Other vitamin B12 deficiency anemia Iron deficiency anemia due to chronic blood loss Iron deficiency anemia secondary to blood loss (chronic) documented in this encounter [facility] general Narrative - Reported* Type Description Date [...] Surgical History LAPAROSCOPY Hospitalization History SEE ABOVE pocketfungames Other InstructionsNot on filedocumented in this encounter [facility] filedocumented in [facility]Not on filedocumented in this encounter [facility]Reason for referral (narrative)* Diagnostic Procedure Only (Routine) - Closed Specialty Diagnoses / Procedures Referred By Contac t Referred To Contact CT IMAGING Diagnoses Disorder of airway Airway obstruction, anatomic Procedures CT NECK SOFT TISSUE WO IVCON CT SCAN OF NECK TISSUE Trev Shah MD [address] [place] [address] [place] [address] Referral ID Status Reason Start Date Expiration Date V isits Requested Visits Authorized [id number] Closed Auto-Generat ed Referral Patient Cleared - Admin/Chairm an/Director advise to proceed or did not respond 01/21/2021 03/22/2021 3 3 [facility] for referral (narrative)* Consultation (Routine) - Pending Review Specialty Diagnoses / Procedures Referred By [facility] Referred To Contact Home Health Services Diagnoses Anna Marie Kevin, COMPOSITION ROOFER-CASCARA BARK CUTTER [address] [place] [address] [place] [address] Referral ID Status Reason Start Date Expiration Date Visits Requested Visits Authorized [id number] Pending Review Specialty Services Required 11/18/2023 11/17/2024 1 1 [facility] for referral (narrative)* Diagnostic Procedure Only (Routine) - Open Specialty Diagnoses / Procedures [facility] To Contact MOLECULAR & FUNCTIONAL IMAGING Diagnoses 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) Procedures NM PET/CT SKULL-THIGH INITIAL PET IMAGING CT ATTENUATION SKULL BASE MID-THIGH Beto Vivar MD [address] [place] [address] [place] [address] Molecular & Functional Imaging [address] [place], [place] [id number] Referral ID Status Reason Start Date Expiration Date V isits Requested Visits Authorized [id number] Open Auto-Generate d Referral 03/23/2024 04/22/2025 1 1 * MRI/CT (Routine) - Open Specialty Diagnoses / Procedures [facility] Ref[facility] To Contact CT IMAGING Diagnoses 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) Procedures CT ABDOMEN W IVCON CT ABDOMEN W/CONTRAST Beto Vivar MD [address] [place] [address] [place] [address] [place] [address] Referral ID Status Reason Start Date Expiration Date V isits Requested Visits Authorized [id number] Open Auto-Generate d Referral 03/23/2024 04/22/2025 1 1 * MRI/CT (Routine) - Open Specialty Diagnoses / Procedures [facility] Referred To Contact CT IMAGING Diagnoses 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) Procedures CT CHEST W IVCON DIAGNOSTIC COMPUTED TOMOGRAPHY THORAX W/CONTRAST Beto Vivar MD [address] [place] [address] [place] [address] [place] [address] Referral ID Status Reason Start Date Expiration Date V isits Requested Visits Authorized [id number] Open Auto-Generate d Referral 03/23/2024 04/22/2025 1 1 * Consult, Test, Treat (Routine) - Authorized Specialty Diagnoses / Procedures [facility] Referred To Contact Diagnoses 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) Cancer related pain Procedures CONSULT TO PALLIATIVE CARE OFFICE/OUTPATIENT [facility] 60 MINUTES Beto Vivar MD [address] [place] [address] [place] [address] Referral ID Status Reason Start Date Expiration Date Visits Requested Visits Authorized [id number] Authorized PCP Requested Referral 03/23/2024 03/23/2025 1 1 [facility] for visit Narrative* Diagnostic Procedure Only (Routine) - Closed Specialty Diagnoses / Procedures [facility] Referred To Contact CT IMAGING Diagnoses Disorder of airway Airway obstruction, anatomic Procedures CT NECK SOFT TISSUE WO IVCON CT SCAN OF NECK TISSUE Trev Shah MD [address] [place] [address] [place] [address] Referral ID Status Reason Start Date Expiration Date V isits Requested Visits Authorized [id number] Closed Auto-Generat ed Referral Patient Cleared - Admin/Chairm an/Director advise to proceed or did not respond 01/21/2021 03/22/2021 3 3 [facility] Summary Purpose Family History No Family History [...] section and content) DATE CREATED AUTHOR 02/27/2021 [facility] DATE CREATED AUTHOR AUTHOR'S ORGANIZ ATION 09/03/2022 [facility] DATE CREATED AUTHOR AUTHOR'S ORGANIZ ATION 01/20/2023 [facility] [place] DATE CREATED AUTHOR AUTHOR'S ORGANIZ ATION 03/27/2024 [facility] DATE CREATED AUTHOR AUTHOR'S ORGANIZ ATION 03/29/2024 [facility] DATE CREATED AUTHOR AUTHOR'S ORGANIZ ATION 03/31/2024 [facility] DATE CREATED AUTHOR AUTHOR'S ORGANIZ ATION 04/05/2024 [facility] DATE CREATED AUTHOR AUTHOR'S ORGANIZ ATION 04/06/2024 [facility] REASON FOR VISIT (unrecogniz ed section and content) Reason Comments Anemia Reason Comments Social Work Services Reason Comments Results Reason Comments Lab Orders Reason Comments Appointment Cancelled Reason Comments Patient Update Reason Comments Med Refill Reason Onset Date Comments Med Refill 10/25/2023 Reason Comments Pain Reason Comments Care Coordination HER2 FISH Analysis Specialty Diagnoses / Procedures Referred By Contac t Referred To Contact Diagnoses Megaloblastic anemia due to vitamin B12 deficiency Iron deficiency anemia due to chronic blood loss Procedures IRON SUCROSE INJECTION PER 1 MG Beto Vivar MD [address] [place] [address] [facility] Treat Rebekah [address] [place] [address] Referral ID Status Reason Start Date Expiration Date V isits Requested Visits Authorized [id number] Authorized 03/23/2024 09/05/2024 99 99 Reason Comments Nutrition Telephone Reason Comments Patient Question Patient Update Source Comments (unrecognize d section and content) In the event this informatio n is protected by the Federal Confidentiality of Alcohol and Drug Abuse Patient Records regulations: The Federal rules restrict any use of the information to criminally investigate or prosecute any alcohol or drug abuse patient.[facility] the event this information is protected by the Federal Confidentiality of Alcohol and Drug Abuse Patient Records regulations: The Federal rules restrict any use of the information to criminally investigate or prosecute any alcohol or drug abuse patient.[facility] the event this information is protected by the Federal Confidentiality of Alcohol and Drug Abuse Patient Records regulations: The Federal rules restrict any use of the information to criminally investigate or prosecute any alcohol or drug abuse patient.[facility] the event this information is protected by the Federal Confidentiality of Alcohol and Drug Abuse Patient Records regulations: The Federal rules restrict any use of the information to criminally investigate or prosecute any alcohol or drug abuse patient.[facility] the event this information is protected by the Federal Confidentiality of Alcohol and Drug Abuse Patient Records regulations: The Federal rules restrict any use of the information to criminally investigate or prosecute any alcohol or drug abuse patient.[facility] the event this information is protected by the Federal Confidentiality of Alcohol and Drug Abuse Patient Records regulations: The Federal rules restrict any use of the information to criminally investigate or prosecute any alcohol or drug abuse patient.[facility] the event this information is protected by the Federal Confidentiality of Alcohol and Drug Abuse Patient Records regulations: The Federal rules restrict any use of the information to criminally investigate or prosecute any alcohol or drug abuse patient.[facility] the event this information is protected by the Federal Confidentiality of Alcohol and Drug Abuse Patient Records regulations: The Federal rules restrict any use of the information to criminally investigate or prosecute any alcohol or drug abuse patient.[facility] the event this information is protected by the Federal Confidentiality of Alcohol and Drug Abuse Patient Records regulations: The Federal rules restrict any use of the information to criminally investigate or prosecute any alcohol or drug abuse patient.[facility] the event this information is protected by the Federal Confidentiality of Alcohol and Drug Abuse Patient Records regulations: The Federal rules restrict any use of the information to criminally investigate or prosecute any alcohol or drug abuse patient.[facility] the event this information is protected by the Federal Confidentiality of Alcohol and Drug Abuse Patient Records regulations: The Federal rules restrict any use of the information to criminally investigate or prosecute any alcohol or drug abuse patient.[facility] the event this information is protected by the Federal Confidentiality of Alcohol and Drug Abuse Patient Records regulations: The Federal rules restrict any use of the information to criminally investigate or prosecute any alcohol or drug abuse patient.[facility] the event this information is protected by the Federal Confidentiality of Alcohol and Drug Abuse Patient Records regulations: The Federal rules restrict any use of the information to criminally investigate or prosecute any alcohol or drug abuse patient.[facility] the event this information is protected by the Federal Confidentiality of Alcohol and Drug Abuse Patient Records regulations: The Federal rules restrict any use of the information to criminally investigate or prosecute any alcohol or drug abuse patient.[facility] the event this information is protected by the Federal Confidentiality of Alcohol and Drug Abuse Patient Records regulations: The Federal rules restrict any use of the information to criminally investigate or prosecute any alcohol or drug abuse patient.[facility] the event this information is protected by the Federal Confidentiality of Alcohol and Drug Abuse Patient Records regulations: The Federal rules restrict any use of the information to criminally investigate or prosecute any alcohol or drug abuse patient.[facility] the event this information is protected by the Federal Confidentiality of Alcohol and Drug Abuse Patient Records regulations: The Federal rules restrict any use of the information to criminally investigate or prosecute any alcohol or drug abuse patient.[facility] the event this information is protected by the Federal Confidentiality of Alcohol and Drug Abuse Patient Records regulations: The Federal rules restrict any use of the information to criminally investigate or prosecute any alcohol or drug abuse patient.[facility] the event this information is protected by the Federal Confidentiality of Alcohol and Drug Abuse Patient Records regulations: The Federal rules restrict any use of the information to criminally investigate or prosecute any alcohol or drug abuse patient.[facility] the event this information is protected by the Federal Confidentiality of Alcohol and Drug Abuse Patient Records regulations: The Federal rules restrict any use of the information to criminally investigate or prosecute any alcohol or drug abuse patient.[facility] Care Teams (unrecognized sec tion and content) Napper Fixer Relationship Specialty Start Date End Date Kostas Steward, DO [address] [place] [address] PCP - General Family Practice 05/14/22 Napper Fixer Relationship Specialty Start Date End Date Kostas Steward, DO [address] [place] [address] PCP - General Family Practice 05/14/22 Napper Fixer Relationship Specialty Start Date End Date Kostas Steward, DO [address] [place] [address] PCP - General Family Medicine 05/14/22 Napper Fixer Relationship Specialty Start Date End Date Kostas Steward, DO [address] [place] [address] PCP - General Family Medicine 05/14/22 Napper Fixer Relationship Specialty Start Date End Date Kostas Steward, DO [address] [place] [address] PCP - General Family Medicine 05/14/22 Napper Fixer Relationship Specialty Start Date End Date Kostas Steward DO [address] [place] [address] PCP - General Family Medicine 05/14/22 Napper Fixer Relationship Specialty Start Date End Date Kostas Steward [address] [place] [address] PCP - General Family Medicine 05/14/22 Napper Fixer Relationship Specialty Start Date End Date Javier Conor E PCP - General Family Medicine 10/25/13 05/13/22 Napper Fixer Relationship Specialty Start Date End Date BinKostas [address] [place] [address] PCP - General Family Medicine 05/28/22 Napper Fixer Relationship Specialty Start Date End Date BinJoseKostas Gianluca [address], [place] [address] PCP - General Family Medicine 05/28/22 Napper Fixer Relationship Specialty Start Date End Date AprilitaliaKostas [address], [place] [address] PCP - General Family Medicine 05/28/22 Napper Fixer Relationship Specialty Start Date End Date Bin Kostas Jarvis [address] [place] [address] PCP - General Family Medicine 05/14/22 Napper Fixer Relationship Specialty Start Date End Date Bin Kostas Jarvis [address] [place] [address] PCP - General Family Medicine 05/14/22 Napper Fixer Relationship Specialty Start Date End Date Kostas Steward DO [address] [place] [address] PCP - General Family Medicine 05/14/22 Napper Fixer Relationship Specialty Start Date End Date Kostas Steward DO [address] [place] [address] PCP - General Family Medicine 05/14/22 Napper Fixer Relationship Specialty Start Date End Date Kostas Steward DO [address] [place] [address] PCP - General Family Medicine 05/14/22 Belen Carlton MD [address] [place] [address] [address] [place] [address] Hematology/Oncology 03/27/24 Napper Fixer Relationship Specialty Start Date End Date Kostas Steward DO [address] [place] [address] PCP - General Family Medicine 05/14/22 Belen Carlton MD [address] [place] [address] [address] [place] [address] Hematology/Oncology 03/27/24 Napper Fixer Relationship Specialty Start Date End Date Kostas Steward DO [address] [place] [address] PCP - General Family Medicine 05/14/22 Belen Carlton MD [address] [place] [address] [address] [place] [address] Hematology/Oncology 03/27/24 Napper Fixer Relationship Specialty Start Date End Date Kostas Steward [address] [place] [address] PCP - General Family Medicine 05/14/22 Belen Carlton MD [address] [place] [address] [address] [place] [address] Hematology/Oncology 03/27/[address] [facility] [place] [address] Registered Dietitian Nutrition 04/03/24 Napper Fixer Relationship Specialty Start Date End Date Kostas Steward [address] [place] [place] [address] PCP - General Family Medicine 05/14/22 Belen Carlton MD [address] [place] [address] [place] [address] Hematology/Oncology 03/27/[address] [facility] [place], [facility] Registered Dietitian Nutrition 04/03/24 Napper Fixer Relationship Specialty Start Date End Date Bin Kostasburt FrederickDO [address] [place] [address] PCP - General Family Medicine 05/14/22 Belen Carlton MD [address] [place] [address] [place] [address] Hematology/Oncology 03/27/[address] [place] [address] Registered Dietitian Nutrition 04/03/24 Jackie Silverio LSW Floor Scrubber 04/07/24 Napper Fixer Relationship Specialty Start Date End Date AprilKostas navas DO [address] [place] [address] PCP - General Family Medicine 05/14/22 Belen Carlton MD [address] [place] [address] [address] [place] [address] Hematology/Oncology 03/27/[address] [place] [address] Registered Dietitian Nutrition 04/03/24 Jackie Silverio LSW Floor Scrubber 04/07/24 Napper Fixer Relationship Specialty Start Date End Date Aprileloise Kostas Frederick [address] [place] [address] PCP - General Family Medicine 05/14/22 Belen Carlton MD [address] [place] [address] [address] [place] [address] Hematology/Oncology 03/27/[address] [place] [address] Registered Dietitian Nutrition 04/03/24 Jackie Silverio BRAILLE OPERATOR Floor Scrubber 04/07/24 FOR RECORDS PERTAINING TO PATIENTS WHO ARE [...] BE BASED ON THE PRIMARY CLINICAL RECORDS. [facility] [employer] [facility]. provides no warranty or guarantee of the accuracy or completeness of information in this document.
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
[2024-04-08] MEDS: APIXABAN 5 MG TABLET PO (21:42)
[2024-04-08] MEDS: HYDROCODONE/ACET 5-325 MG TABLET 2 TAB PO (21:42)
[2024-04-08 21:45] VITALS: BP 117/63; PULSE 88; O2SAT 100
== END 2024-04-08 21:48 | disposition home or self-care (01) ==
PROVIDERS: Emergency Provider Internal Medicine; PCP Family Medicine
DX: C16.9 Malignant neoplasm of stomach, unspecified (principal); Z86.711 Personal history of pulmonary embolism
CPT/HCPCS: 99283

== ENCOUNTER 2024-04-14 22:41 | Emergency (ER) | payer OTHER, SELFPAY ==
[2024-04-14 22:44] VITALS: BP 200/117; PULSE 103; O2SAT 100; BMI 22.6
[2024-04-14 22:47] VITALS: BP 175/100
[2024-04-14 22:48] VITALS: TEMP 36.7
--- OUTSIDE RECORDS SUMMARY | 2024-04-14 22:49 | XMS_ITS | CCD ---
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 deficie*05/25/2022 Severe protein-calorie malnutrition (HCC) [E43] 04/03/2024 Encounter Status:Closed by JOLANTA KOCH on 04/12/24 Normal [facility] Telephone (HEMTSA) KAYA SCHILLING ([id number]) 1965 F Date Time Provider Department 04/07/24 KAILA LONDON During your visit today, we recorded the following information about you: Kaila London, BORA 04/07/2024 3:01 PM Signed Patient has requested assistance to pay for Boost supplements. She was newly Dx with gastric cancer, has lost a significant amount of weight, states that she drinks a lot of boost noting that it is too expensive for her. She is established with [facility] (bed bug exterminator) She has mental health issues and could use a social work referral BORA Templeton Jacqueline, RD 04/07/2024 3:08 PM Signed Thank you Kaila. I have started the paperwork process to see if Medicaid will cover oral nutrition supplements and left samples of boost at the supervisor front for her that she should have picked up. Jackie also aware! Erendira Aguillon RD, LD Allergies As of Date: 04/07/2024 Noted Allergy Reaction PERCOCET (OXYCODONE-ACETAMINOPHE N)02/21/2015 8 - GI Upset STADOL (BUTORPHANOL TARTRATE) 10/26/2013 11 - Vomiting Comments: incoherent Date Reviewed: 04/03/2024 Reviewed by: Erendira Aguillon RD - Fully Assessed Reason for Visit: Patient Question [4187] Patient Update [8944] Prescriptions as of 04/07/2024 - gabapentin (NEURONTIN) 100 mg capsule Take [...] three times daily as needed. Indications: Anxiety Facility-Administered Medications as of 04/07/2024 - NaCl 0.9% iv infusion - diphenhydrAMINE 50 mg injection (BENADRYL) - hydrocortisone sodium succinate (PF) 100 mg injection (Solu-CORTEF) - EPINEPHrine 1 mg/mL (1 mL) 0.3 mg injection - sodium chloride 0.9 % (flush) 10-20 mL (BD POSIFLUSH) - sodium chloride 0.9 % (flush) 10-20 mL (BD POSIFLUSH) Problem List As Of Date 04/07/2024 Noted Resolved Anemia [D64.9] 10/26/2013 Iron deficiency [...] Megaloblastic anemia due to vitamin B12 deficie*05/25/2022 Severe protein-calorie malnutrition (HCC) [E43] 04/03/2024 Encounter Status:Closed by KAILA LONDON on 04/07/24 [facility] CNNURSEon 04-06-2024 [facility] Nurse Visit (TRISTIN) KAYA SCHILLING ([id number]) 1965 F Date Time Provider Department 04/06/24 3:30 PM [place] NURSE BELTRAN CROW During your visit today, we recorded the following information about you: Temperature Pulse Respiration Blood pressure 97.2 degrees 97/minute 20/minute 169/73 Amirah Koch MA 04/06/2024 3:35 PM Signed Patient Identification confirmed: yes. Injection given and documented on NOV per provider order. Amirah Koch MA Referring Provider: BETO VIVAR [[id number]] Allergies As of Date: 04/06/2024 Noted Allergy Reaction PERCOCET (OXYCODONE-ACETAMINOPHE N)02/21/2015 8 - GI Upset STADOL (BUTORPHANOL TARTRATE) 10/26/2013 11 - Vomiting Comments: incoherent Date Reviewed: 04/03/2024 Reviewed by: Erendira Aguillon RD - Fully Assessed Primary Visit Diagnosis:Megaloblastic anemia due to vitamin B12 deficiency [D53.1] Order(s):TREATMENT PARAMETER-NOT NEEDED [[id number]] Order #: [id number]: 1 N NURSING COMMUNICATION [[id number]] Order #: [id number]: 1 [] cyanocobalamin 1,000 mcg injectionDisp: Rfl: Prescriptions as of 04/06/2024 - gabapentin (NEURONTIN) 100 mg capsule Take [...] Indications: Anxiety Problem List As Of Date 04/06/2024 Noted Resolved Anemia [D64.9] 10/26/2013 Iron deficiency [...] Megaloblastic anemia due to vitamin B12 deficie*05/25/2022 Severe protein-calorie malnutrition (HCC) [E43] 04/03/2024 Visit Notes: >> Amirah Koch MA [facility] Apr 06, 2024 3:35 PM Status: Signed Patient Identification confirmed: yes. Injection given and documented on NOV per provider order. 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 Recent emergency room visit in February, for left-sided chest and abdominal pain. Endoscopy performed 03/02/2024 revealed a gastric mass with biopsy confirming adenocarcinoma. Recent diagnosis of pulmonary embolism on outside CT chest of 02/13/2024 TECHNIQUE: CT of the abdomen was performed using standard technique, scanning from just above the dome of the diaphragm to the iliac crest. MQ: [id number]_4 Contrast: IV: 105 ml of Omnipaque 300 Oral: 500 ml of Omni 240 10-25ml diluted with water CT Radiation dose: Integrated Dose-length product (DLP) for this visit = 331 mGy*cm. CT Dose Reduction Employed: Automated exposure control(AEC) and iterative recon COMPARISON: PET/CT 04/06/2024; CT abdomen/pelvis 11/19/2023 RESULT: Liver: Normal liver morphology. Diffuse hypodensity of the hepatic parenchyma is compatible with hepatic steatosis. Focal hepatic steatosis is noted adjacent to fissure for the falciform ligament. No suspicious hepatic mass. Biliary: No bile duct dilation. The gallbladder is absent. Spleen: No mass. No splenomegaly. Pancreas: No pancreatic ductal dilatation. There is broad-based contact between the pancreatic body/tail and the below described below described left retroperitoneal mass. Adrenals: The right adrenal is unremarkable. The left adrenal is directly involved by the below described gastric and retroperitoneal mass. The left adrenal is enhances heterogeneously, contains dependent cystic change, is enlarged and measures 2.9 x 3.3 cm on series 3, image 32. Kidneys: There is bilateral renal cortical atrophy. The kidneys enhance symmetrically. No suspicious renal mass. No collecting system dilatation. GI tract: There is a heterogeneous gastric cardia mass with intraluminal and extraluminal components. The intraluminal component extending into the gastric fundus measures 4.4 x 7.2 cm on series 3, image 16 (previously 4.9 x 3.9 cm). There is irregular thickening of the proximal gastric wall (series 3, image 21) adjacent to the intraluminal component. There is diffuse ill-defined soft tissue extending from the posterior gastric cardia along the pancreatic body and into the left retroperitoneum (series 3, image 24-31), likely a combination of infiltrative exophytic neoplasm and confluent lymphadenopathy. There is short segment occlusion or severe stenosis of the splenic vein in the region of this infiltrative mass posterior pancreatic tail (series 3, image 34-32). The remainder of the imaged bowel is normal in caliber without evidence of obstruction. Please note, the pelvis is not included on this abdomen only assessment. Lymph nodes: Diffuse increase in size of upper abdominal perigastric and retroperitoneal lymphadenopathy. Guest Relations Officer measurements are detailed as follows on series 3: -Image 30, soft tissue within the gastrohepatic ligament and periportal region, encasing the proximal celiac artery measures 4.3 x 5.8 cm on series 3, image 30 (previously multiple enlarged regional lymph nodes) -Image 33, tumor within the left upper para-aortic region encasing the left adrenal measures 4.7 x 5 cm (previously multiple enlarged retroperitoneal lymph nodes) - Immage 36, medial portocaval, 2.9 x 3.2 cm manda conglomerate (previously multiple individual lymph nodes, the largest of which measured 1.4 x 2.1 cm) -Image 40, posterior paracaval, 1.4 x 1.6 cm (previously 0.9 x 1.2 cm) -Image 48, aortocaval, 2.3 x 3.2 cm (previously 2.1 x 3.1 cm) -Image 50, left inferior para-aortic, 1.9 x 2.4 cm (previously 1.3 x 2 cm) -Image 57, left inferior para-aortic, 2 x 3 cm (previously 1.4 x 2.3 cm) Mesentery/Peritoneum: No ascites or mass. Retroperitoneum: Please see GI tract section. Vasculature: - Abdominal aorta: No aneurysm. - Celiac and SMA: Patent without stenosis. - Portal venous system (SMV, splenic vein, portal vein and branches): Patent. - Hepatic veins: Patent. Bones/Soft Tissues: A 1.2 cm sclerotic focus within the L4 vertebral body (series 5, image 59) is unchanged but suspicious for a metastasis. Lower thorax: A chest CT performed will be reported separately. Localizer images: No additional findings. IMPRESSION: 1. Since 11/18/2013, diffuse progression of gastric mass and upper abdominal lymphadenopathy. Confluent soft tissue extending inferiorly from the posterior gastric body/cardia along the left retroperitoneum has diffusely increased and is likely a combination of exophytic neoplasm and confluent lymphadenopathy. 2. Short segment occlusion or severe narrowing of the splenic vein. 3. A 1.2 cm s (more content not included)... 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 Examination for follow-up. Per review of the medical record, recent diagnosis of pulmonary emboli on outside CT chest and February,. Technique: Spiral CT acquisition of the chest from the thoracic inlet to the upper abdomen following IV contrast. MQ: CTCW_6 Contrast: 105 mL Omnipaque [address] Radiation dose: Integrated Dose-length product (DLP) for this visit = 331 mGy*cm CT Dose Reduction Employed: Automated exposure control(AEC) and iterative recon Comparison: CT chest 01/29/2021; PET CT 04/06/2024; CT chest 02/13/2024 RESULT: Limitations: None. Lines, tubes, and devices: None. Lung parenchyma and airways: No airspace consolidation. The central tracheobronchial tree is patent. There are a few noncalcified pulmonary nodules, with wholesale representative measurements detailed as follows on series 4: -Image 75, right upper lobe, 0.3 cm (unchanged since 02/13/2024, but new since 01/29/2021) -Image 91, right upper lobe, 0.3 cm (unchanged since 02/13/2024, but new since 01/29/2021) -Image 69, left upper lobe, 0.3 cm (unchanged since 02/13/2024, but new since 01/29/2021) Image 93, lingula, 0.4 cm (stable) Pleural space: Unchanged small left pleural effusion. Lower neck, lymph nodes, and mediastinum: The thyroid is poorly visualized. There are numerous enlarged supraclavicular lymph nodes. Guest Relations Officer measurements are detailed as follows on series 3: -Image 7, medial left supraclavicular, 1.7 x 2 cm (previously 1.6 x 2.2 cm) -Image 12, left subclavicular, 1.5 x 2 cm (previously 1.2 x 2 cm) -Image 22, high prevascular, 1.7 x 2.8 cm (previously 1.6 x 2.6 cm) Heart, pericardium, and thoracic vessels: Linear nonocclusive central filling defects within right lower lobe pulmonary emboli are compatible with chronic pulmonary emboli. The thoracic aorta and main pulmonary artery are normal in caliber. The cardiac chambers are normal in size. No coronary artery atherosclerotic calcifications are noted, although the study is not optimized for coronary assessment. No pericardial effusion or thickening. Bones and soft tissues: No destructive lytic or blastic osseous abnormality. Please note, an osseous metastasis within the T4 vertebral body was identified FDG avid on the comparison PET/CT of 04/06/2024 (no correlate on this exam). Upper abdomen: Please refer to concurrently acquired and separately reported abdomen CT for findings related to the upper abdomen. Localizer images: No additional findings. IMPRESSION: 1. Left supraclavicular lymphadenopathy, similar in appearance since 02/13/2024. 2. Small bilateral noncalcified pulmonary nodules measuring up to 0.3 cm are unchanged since 02/13/2024, but are new since 01/29/2021. These are overall indeterminate and continued attention on surveillance imaging is suggested. 3. Chronic right lower lobe pulmonary emboli. 4. Unchanged small left pleural effusion. 5. No CT correlate is identified to the T4 region of FDG uptake identified on the PET/CT of 04/06/2024. Based on degree of metastatic disease, this remains suspicious for an osseous metastasis, which is currently not apparent by CT. Continued attention on surveillance imaging is suggested. 6. Please refer to concurrently acquired and separately reported abdomen CT for findings related to the upper abdomen. Transcribe Date/Time: Apr 06 2024 4:11P Dictated by: GRANT BOYKIN MD This examination was interpreted and the report reviewed and electronically signed by: GRANT BOYKIN MD on Apr 06 2024 4:35PM EST Thank you for allowing us to participate in the care of your patient. Should there be any questions regarding this interpretation, please call [phone]. If you are unable to reach us at the number above, please feel free to contact [facility]iology at [phone]. 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 INDICATION: Initial treatment strategy. TECHNIQUE: Radiopharmaceutical was administered IV followed about 60 minutes later by PET imaging from skull base to proximal thigh. Free breathing, low dose CT of the same body region was acquired without IV contrast for attenuation correction and anatomic localization. * CT Dose-Length Product (DLP): 150 mGy*cm * CT Dose Reduction Employed: Yes * Blood glucose (mg/dL): 122 * Radiopharmaceutical Activity: 7.2 mCi * Radiopharmaceutical: U32-Rshsnrhzbplegynrql (FDG) * All reported standardized uptake values represent maximum SUV (SUVmax) per body weight, unless otherwise specified. CORRELATION: RESULT: REFERENCES: SUV reference values: * Blood pool (descending aorta) activity: SUVmax 2.4 * Background liver activity: SUVmax 2.9 Form Setter Supervisor (topogram) images: No additional findings. Notes and limitations: * Standardized uptake values indicate the highest activity concentration (SUVmax) at a given location but can be variable and are not absolute. * Physiologic/non-neoplas tic uptake is common in the brain, extraocular muscles, oral cavity, tonsils, salivary glands, vocal cords, myocardium, liver, GI tract, urinary tract, and bone marrow among others. Certain regions and organ systems can have more intense uptake, which could confound or obscure some pathology. * Unenhanced imaging is limited for the evaluation of some pathology and the acquired CT was not designed to produce or replace diagnostic CT scan quality. * PET-CT is often not sensitive for pulmonary nodules less than 8 mm. HEAD AND NECK: Imaged Head: No abnormal uptake. Neck and Lymph Nodes: Hypermetabolic left lower cervical/supraclavicula r lymphadenopathy. For example a left medial supraclavicular lymph node measures 1.4 x 2.1 cm (max SUV 4.2, image 3/40), left posterior supraclavicular region lymph lymph node measuring about 1.6 cm (max SUV 4.3, image 3/38 Thyroid: No abnormal uptake. CHEST: Lungs and Airways: No abnormal uptake. Pleura and Pericardium: No abnormal uptake. Bilateral small pleural effusions. Cardiovascular: No abnormal uptake. Mediastinum and Lymph Nodes: Few hypermetabolic mediastinal lymph nodes. A left upper paratracheal conglomerate about 1.4 x 2.9 cm (max SUV 5.3). Posterior periesophageal lymph node measuring 1.1 cm (max SUV 4.8). ABDOMEN AND PELVIS: Hepatobiliary: No abnormal uptake. Spleen: No abnormal uptake. Pancreas: Increased activity about the pancreatic/peripancreat ic regions and associated lymph nodes. Adrenals: Hypermetabolic adrenal thickening (Max SUV 5.4) Urinary Tract: No abnormal uptake. GI Tract: Intensely hypermetabolic gastric thickening/mass conglomerate measures 3.1 x 5.4 cm (max SUV 10.8). Diffuse activity in colonic and bowel loops can be physiologic. Peritoneum: No abnormal uptake. Vasculature: No abnormal uptake. Retroperitoneum and Lymph Nodes: Hypermetabolic lymphadenopathy involving gastrohepatic, peripancreatic, periportal, aortocaval, left para-aortic and common iliac regions. Confluent lymphadenopathy noted along the, periportal peripancreatic, periaortic and aortocaval regions. For example conglomerate in the left peripancreatic region measures 1.4 x 2.5 cm (max SUV 8.1), aortocaval 1.9 x 2.9 cm (max SUV 5.3), left para-aortic 1.9 x 2.1 cm (max SUV 4.1). Additionally mesenteric stranding/nodularity/ly mph nodes with low-level FDG activity (Max SUV 1.5-2.1). Pelvis: No abnormal uptake. MUSCULOSKELETAL: Osseous: Hypermetabolic focus in the left T4 thoracic spine (max SUV 5) suspicious for osseous metastases. Soft Tissues: No abnormal uptake. IMPRESSION: HEAD/NECK: * Hypermetabolic left lower cervical/supraclavicula r lymphadenopathy suspicious for metastatic lymphadenopathy. CHEST: * Few hypermetabolic mediastinal lymph nodes. ABDOMEN/PELVIS: * Hypermetabolic gastric mass suspicious for neoplasm. * Multiple hypermetabolic upper mid abdominal lymph nodes suspicious for metastatic lymph nodes. Diffuse uptake about the pancreas and along the left adrenal possibly metastatic involvement. * Mesenteric stranding/nodularity with low-level FDG activity. MUSCULOSKELETAL: * Hypermetabolic focus left T4 thoracic spine suspicious for osseous metastases. Transcribe Date/Time: Apr 06 2024 2:46P Dictated by: JADEN ESTRADA MD This examination was interpreted and the report reviewed and electronically signed by: JADEN ESTRADA MD on Apr 06 2024 3:11PM EST Thank you for allowing us to participate in the care of your patient. Sh (more content not included)... Normal [facility] Surgical Pathologyon 024 Surgical Pathology Normal [facility] Comment on above: Result Comment: [facility] [address] [place] [address] Surgical Pathology Consultation ADDENDUM SC Patient Name:KAYA SCHILLING:1965 (Age: 59)Gender:FTaken:4Reported:4Physician(s):Beto Vivar MD ([phone])Copy To: Rec. #:[id number]: #[id number] Final Pathologic Diagnosis Gastric biomarker Reporting Template [...] Formalin (Formalin-fixed, paraffin embedded tissue) MLH1: Vendor: [employer], Primary Antibody: M1 MSH2: Vendor: [employer], Primary Antibody: [id number] MSH 6: Vendor: [employer], Primary Antibody: 44 PMS2: Vendor: [employer], Primary Antibody: A16-4 Detection System: MLH1, MSH2, PMS2: [employer] OptiView DAB IHC Detection Kit (indirect biotin-free detection) MSH6: [employer] ultraView [place] DAB Detection Kit (indirect biotin-free detection) MSH6 was developed and its performance characteristics determined by the [facility] Immunohistochemistry Department. It has not [...] Carcinoma of the Colon and Rectum. Version: PIE Software 1.2.0.1. Template posting date: August 2014. [email or web address] Report Electronically Signed Out wataniya/04/05/2024WAK Addendum (PHS) Date Reported: Gastric biomarker Reporting [...] Formalin (Formalin-fixed, paraffin embedded tissue) MLH1: Vendor: [employer], Primary Antibody: M1 MSH2: Vendor: [employer], Primary Antibody: [id number] MSH 6: Vendor: [employer], Primary Antibody: 44 PMS2: Vendor: [employer], Primary Antibody: A16-4 Detection System: MLH1, MSH2, PMS2: [employer] OptiView DAB IHC Detection Kit (indirect biotin-free detection) MSH6: [employer] ultraView [place] DAB Detection Kit (indirect biotin-free detection) MSH6 was developed and its performance characteristics determined by the [facility] Immunohistochemistry Department. It has not [...] Carcinoma of the Colon and Rectum. Version: ColonReading Rainbow 1.2.0.1. Template posting date: August 2014. [email or web address] Rigoberto Fischer MD Interpretation performed at [facility], [address] [place] [address], License number: [id number]. Gross Description Per (more content not included)... CNPNon 03-28-2024 CNPN Telephone (HEMASA) KAYA SCHILLING ([id number]) 1965 F Date Time Provider Department 03/28/24 [...] Encounter Status:Closed by TENA ARANDA on 03/28/24 [facility] Leo 03-27-2024 CNPN Telephone (DIRKMN) KAYA SCHILLING ([id number]) 1965 F Date Time Provider Department 03/27/24 JEANNE MCCORMICK During your visit today, we recorded the following information about you: Leatha Rodriguez 04/07/2024 9:16 AM Addendum LOCAL PATIENT Received Fax from [facility] Kaya Schilling is being referred to Jeanne Mccormick M.D., Ph. D. by [address] [place] [address] Patient diagnosis/Reason for consult: Gastric Adenocarcinoma Referral triage process explained: No Patient will receive a call from Thoracic NPM after triage review with surgeon to discuss any additional testing and/or consults that will be scheduled. Pt will then receive a call from our scheduling office for scheduling. Please call pt at [phone]. Patient was informed consultation could be at [facility] or [facility]: No Patient Registration: Registration complete/updated: yes Insurance card(s) scanned in [employer] with in the past year: Yes: Date: 03/23/24 Pt's [employer] is Pending. Ok to communicate to pt via [employer]Wire not asked Medical Records: Records in [facility] (internal CC records): Yes Imaging in [facility] (internal CC records): Yes Care Everywhere - queried yes, downloaded Yes Linked Outside Organizations (list): [facility] Records Requested: no Date: N/A Outside Hospital(s) requested records from: n/a Received: yes Uploaded: Yes. Waiting on additional records: No. Missing (list): Records in [facility] Pathology Slides Requested: no Date: N/A Outside Hospital(s) slides requested from: n/a OSH Radiology Imaging Requested: yes Date: N/A Outside Hospital(s) requested imaging from: [facility]. Imaging will be received via Electronic Transfer Received: Yes Imaging uploaded: Yes Waiting on additional: No. Missing (list): n/a Additional providers added to Care Teams: Yes Additional Notes/Comments: n/a Enct routed to: Dirk Castano NPM for Triage Leatha Rodriguez, windows systems adminJean Claude Lynch RN 04/12/2024 8:59 AM Addendum Thoracic referral consult request is cancelled as per Dr. Vivar. Thoracic Surgery Consultation - review of records for appointment scheduling Received medical records from the office of Belen Carlton [address] [place] [address] Patient is being referred to Jeanne Mccormick MD, PhD by [facility] Carlton for gastric ADCA Outside hospital records scanned / in [facility] / Care Everywhere Pathology:03/02/2024 Final Pathologic Diagnosis 1. Cardia mass biopsy: Invasive ADENOCARCINOMA, intestinal type, low-grade. 2. Ascending colon polyp; polypectomy: Nondiagnostic sample (only food particles noted). Procedures:EGD 03/02/2024 Impression: - Normal nasopharynx and oropharynx. - Normal esophagus. - Malignant gastric tumor at the gastroesophageal junction and in the cardia. Biopsied. - Normal examined duodenum. Imaging . PET/CT: 04/06/2024 Impression IMPRESSION: HEAD/NECK: * Hypermetabolic left lower cervical/supraclavicula r lymphadenopathy suspicious for metastatic lymphadenopathy. CHEST: * Few hypermetabolic mediastinal lymph nodes. ABDOMEN/PELVIS: * Hypermetabolic gastric mass suspicious for neoplasm. * Multiple hypermetabolic upper mid abdominal lymph nodes suspicious for metastatic lymph nodes. Diffuse uptake about the pancreas and along the left adrenal possibly metastatic involvement. * Mesenteric stranding/nodularity with low-level FDG activity. MUSCULOSKELETAL: * Hypermetabolic focus left T4 thoracic spine suspicious for osseous metastases. CT (chest, abd, pelvis): 04/06/2024 IMPRESSION: 1. Left supraclavicular lymphadenopathy, similar in appearance since 02/13/2024. 2. Small bilateral noncalcified pulmonary nodules measuring up to 0.3 cm are unchanged since 02/13/2024, but are new since 01/29/2021. These are overall indeterminate and continued attention on surveillance imaging is suggested. 3. Chronic right lower lobe pulmonary emboli. 4. Unchanged small left pleural effusion. 5. No CT correlate is identified to the T4 region of FDG uptake identified on the PET/CT of 04/06/2024. Based on degree of metastatic disease, this remains suspicious for an osseous metastasis, which is currently not apparent by CT. Continued attention on surveillance imaging is suggested. 6. Please refer to concurrently acquired and separately reported abdomen CT for findings related to the upper abdomen IMPRESSION: 1. Since 11/18/2013, diffuse progression of gastric mass and upper abdominal lymphadenopathy. Confluent soft tissue extending inferiorly from the posterior gastric body/cardia along the left retroperitoneum has diffusely increased and is likely a combination of exophytic neoplasm and confluent lymphadenopathy. 2. Short segment occlusion or sev (more content not included)... Normal [facility] CA 19-9on 03-24-2024 Cancer Ag 19-9 Qn 806.0 [arb'U]/mL High NINF - 36.0 U/mL [facility] Comment on above: Cancer antigen 19-9 test is used as an aid in monitoring response to treatment or recurrence in patients with established pancreatic, hepatobiliary, or gastrointestinal malignancies. Clinical correlation is required. The CA 19-9 Antigen test was performed using the [employer] DXI paramagnetic particle chemiluminescent immunoassay method. Results obtained with different assay methods or kits cannot be used interchangeably. CARCINOEMBRYONIC ANTIGENon 0 03-24-2024 Carcinoembryonic Ag [Mass/Vol] 2.2 ng/mL NINF - 2.9 ng/mL [facility] Comment on above: Carcinoembryonic ant igen test is used as an aid in monitoring response to treatment or recurrence in patients with established colorectal, breast, lung, prostatic, pancreatic, and ovarian carcinomas. Clinical correlation is required. The Carcinoembryonic antigen test was performed using the Sophie [place] Un[employer]el DXI paramagnetic particle chemiluminescent immunoassay method. Results obtained with different assay methods or kits cannot be used interchangeably. Leo 03-24-2024 EVELYN Telephone (HEMASA) TONIEKAYA ([id number]) 1965 F Date Time Provider Department 03/24/24 TENA ARANDA During your visit today, we recorded the following information about you: Tena Aranda RN 03/24/2024 11:38 AM Addendum Pt called the [facility] service last night for pain. Called to discuss and pt VM full. Plan per BRBrittany OV 03/23/24 [place] PRN pain and pall med referral. Pt [...] Status:Closed by TENA ARANDA on 03/24/24 Normal [facility] Cancer Ag 19-9 Qnon 03-24-20 Interpretation and review of laboratory results Abnormal [facility] Carcinoembryonic Ag [Mass/Vo l]on 03-24-2024 Interpretation and review of laboratory results Normal [facility] Cobalamin (Vitamin B12) [Mas s/Vol]on 03-24-2024 Interpretation and review of laboratory results Abnormal [facility] Comprehensive metabolic 2000 panelOrdered By: Grisel Ludwig on 03-24-2024 Albumin [Mass/Vol] 3.8 g/dL Low 3.9 - 4.9 g/dL [facility] ALP [Catalytic activity/Vol] 110 U/L 34 - 123 U/L [facility] ALT [Catalytic activity/Vol] 7 U/L 7 - 38 U/L [facility] Anion gap [Moles/Vol] 9 mmol/L 8 - 15 mmol/L [facility] AST [Catalytic activity/Vol] 18 U/L 13 - 35 U/L [facility] Bilirubin [Mass/Vol] 0.4 mg/dL 0.2 - 1.3 mg/dL [facility] Calcium [Mass/Vol] 10.8 mg/dL High 8.5 - 10. 2 mg/dL [facility] Chloride [Moles/Vol] 104 mmol/L 98 - 107 mmol/L [facility] CO2 [Moles/Vol] 24 mmol/L 22 - 30 mmol/L [facility] Creatinine [Mass/Vol] 1.25 mg/dL High 0.58 - 0.96 mg/dL [facility] GFR/1.73 sq M.predicted among non-blacks MDRD (S/P/Bld) [Vol rate/Area] 49 mL/min/{1.73_m2} Low - PINF [facility] Comment on above: Estimated Glomerular Filtration Rate [...] 227 mg/dL High 74 - 99 mg/dL [facility] Comment on above: The [place] Diab[employer] Association (ADA) provides guidance for [...] Standards of Medical Care in Diabetes 2016, [place] [employer]. Diabetes Care. 2016.39(Suppl 1). Interpretation and review of laboratory results Abnormal [facility] Potassium [Moles/Vol] 3.7 mmol/L 3.7 - 5.1 mmol/L [facility] Protein [Mass/Vol] 6.9 g/dL 6.3 - 8.0 g/dL [facility] Sodium [Moles/Vol] 137 mmol/L 136 - 144 mmol/L [facility] Urea nitrogen [Mass/Vol] 24 mg/dL High 7 - 21 mg/dL [facility] VITAMIN B12on 03-24-2024 Cobalamin (Vitamin B12) [Mass/Vol] pg/mL Low 232 - 1245 pg/mL [facility] Comment on above: Result rechecked. CBC W Auto Differential pane l (Bld)on 03-23-2024 Basophils (Bld) [#/Vol] [facility] Basophils/100 WBC (Bld) 0.2 % [facility] Differential cell count method Nom (Bld) Auto [facility] Eosinophils (Bld) [#/Vol] 0.04 10*3/uL [facility] Eosinophils/100 WBC (Bld) 0.8 % [facility] Erythrocyte distribution width (RBC) [Ratio] 17.8 % High 11.5 - 15.0 % [facility] Hematocrit (Bld) [Volume fraction] 22.5 % Low 36.0 - 46.0 % [facility] Hemoglobin (Bld) [Mass/Vol] 7.6 g/dL Low 11.5 - 15.5 g/dL [facility] Immature granulocytes (Bld) [#/Vol] [facility] Immature granulocytes/100 WBC (Bld) 0.4 % [facility] Interpretation and review of laboratory results Abnormal [facility] Lymphocytes (Bld) [#/Vol] 0.73 10*3/uL Low [facility] Lymphocytes/100 WBC (Bld) 15.4 % [facility] MCH (RBC) [Entitic mass] 38.8 pg High 26.0 - 34.0 pg [facility] MCHC (RBC) [Mass/Vol] 33.8 g/dL 30.5 - 36.0 g/dL [facility] MCV (RBC) [Entitic vol] 114.8 fL High 80.0 - 100.0 fL [facility] Monocytes (Bld) [#/Vol] 0.31 10*3/uL [facility] Monocytes/100 WBC (Bld) 6.5 % [facility] Neutrophils (Bld) [#/Vol] 3.64 10*3/uL [facility] Neutrophils/100 WBC (Bld) 76.7 % [facility] Nucleated RBC (Bld) [#/Vol] [facility] Nucleated RBC/100 WBC (Bld) [Ratio] 0.0 % /100 WBC [facility] Platelet mean volume (Bld) [Entitic vol] 9.0 fL 9.0 - 12.7 fL [facility] Platelets (Bld) [#/Vol] 247 10*3/uL [facility] RBC (Bld) [#/Vol] 1.96 10*6/uL Low 3.90 - 5.2 0 m/uL [facility] WBC (Bld) [#/Vol] 4.75 10*3/uL [facility] Basophils (Bld) [#/Vol] 10*3/uL Normal <0.11 [facility] Comment on above: Order Comment: Speci men Type: BLOOD SPECIMENOrdering Facility: [facility] Address: [address] [place] [address] Performed By: #### 5 7021-8 ####[facility] LABCLIA [id number] [place] [address] Basophils/100 WBC (Bld) 0.2 % Normal [facility] Comment on above: Order Comment: Speci men Type: BLOOD SPECIMENOrdering Facility: [facility] Address: [address] [place] [address] Performed By: #### 5 7021-8 ####[facility] LABCLIA [id number] [place] [address] Differential cell count method Nom (Bld) Auto Normal [facility] Comment on above: Order Comment: Speci men Type: BLOOD SPECIMENOrdering Facility: [facility] Address: [address] [place] [address] Performed By: #### 5 7021-8 ####[facility] LABCLIA [id number] [place] [address] Eosinophils (Bld) [#/Vol] 0.04 10*3/uL Normal <0.46 [facility] Comment on above: Order Comment: Speci men Type: BLOOD SPECIMENOrdering Facility: [facility] Address: [address] [place] [address] Performed By: #### 5 7021-8 ####[facility] LABCLIA [id number] [place] [address] Eosinophils/100 WBC (Bld) 0.8 % Normal [facility] Comment on above: Order Comment: Speci men Type: BLOOD SPECIMENOrdering Facility: [facility] Address: [address] [place] [address] Performed By: #### 5 7021-8 ####[facility] LABCLIA [id number] [place] [address] Erythrocyte distribution width (RBC) [Ratio] 17.8 % High 11.5-15.0 [facility] Comment on above: Order Comment: Speci men Type: BLOOD SPECIMENOrdering Facility: [facility] Address: [address] [place] [address] Performed By: #### 5 7021-8 ####[facility] LABCLIA [id number] [place] [address] Hematocrit (Bld) [Volume fraction] 22.5 % Low 36.0-46.0 [facility] Comment on above: Order Comment: Speci men Type: BLOOD SPECIMENOrdering Facility: [facility] Address: [address] [place] [address] Performed By: #### 5 7021-8 ####[facility] LABCLIA [id number] [place] [address] Hemoglobin (Bld) [Mass/Vol] 7.6 g/dL Low 11.5-15.5 [facility] Comment on above: Order Comment: Speci men Type: BLOOD SPECIMENOrdering Facility: [facility] Address: [address] [place] [address] Performed By: #### 5 7021-8 ####[facility] LABCLIA [id number] [place] [address] Immature granulocytes (Bld) [#/Vol] 10*3/uL Normal <0.10 [facility] Comment on above: Order Comment: Speci men Type: BLOOD SPECIMENOrdering Facility: [facility] Address: [address] [place] [address] Performed By: #### 5 7021-8 ####[facility] LABCLIA [id number] [place] [address] Immature granulocytes/100 WBC (Bld) 0.4 % Normal [facility] Comment on above: Order Comment: Speci men Type: BLOOD SPECIMENOrdering Facility: [facility] Address: [address] [place] [address] Performed By: #### 5 7021-8 ####[facility] LABCLIA [id number] [place] [address] Lymphocytes (Bld) [#/Vol] 0.73 10*3/uL Low 1.00-4.00 [facility] Comment on above: Order Comment: Speci men Type: BLOOD SPECIMENOrdering Facility: [facility] Address: [address] [place] [address] Performed By: #### 5 7021-8 ####[facility] LABCLIA [id number] [place] [address] Lymphocytes/100 WBC (Bld) 15.4 % Normal [facility] Comment on above: Order Comment: Speci men Type: BLOOD SPECIMENOrdering Facility: [facility] Address: [address] [place] [address] Performed By: #### 5 7021-8 ####[facility] LABCLIA [id number] [place] [address] MCH (RBC) [Entitic mass] 38.8 pg High 26.0-34.0 [facility] Comment on above: Order Comment: Speci men Type: BLOOD SPECIMENOrdering Facility: [facility] Address: [address] [place] [address] Performed By: #### 5 7021-8 ####[facility] LABCLIA [id number] [place] [address] MCHC (RBC) [Mass/Vol] 33.8 g/dL Normal 30.5-36.0 [facility] Comment on above: Order Comment: Speci men Type: BLOOD SPECIMENOrdering Facility: [facility] Address: [address] [place] [address] Performed By: #### 5 7021-8 ####[facility] LABCLIA [id number] [place] [address] MCV (RBC) [Entitic vol] 114.8 fL High 80.0-100.0 [facility] Comment on above: Order Comment: Speci men Type: BLOOD SPECIMENOrdering Facility: [facility] Address: [address] [place] [address] Performed By: #### 5 7021-8 ####[facility] LABCLIA [id number] [place] [address] Monocytes (Bld) [#/Vol] 0.31 10*3/uL Normal <0.87 [facility] Comment on above: Order Comment: Speci men Type: BLOOD SPECIMENOrdering Facility: [facility] Address: [address] [place] [address] Performed By: #### 5 7021-8 ####[facility] LABCLIA [id number] [place] [address] Monocytes/100 WBC (Bld) 6.5 % Normal [facility] Comment on above: Order Comment: Speci men Type: BLOOD SPECIMENOrdering Facility: [facility] Address: [address] [place] [address] Performed By: #### 5 7021-8 ####[facility] LABCLIA [id number] [place] [address] Neutrophils (Bld) [#/Vol] 3.64 10*3/uL Normal 1.45-7.50 [facility] Comment on above: Order Comment: Speci men Type: BLOOD SPECIMENOrdering Facility: [facility] Address: [address] [place] [address] Performed By: #### 5 7021-8 ####[facility] LABCLIA [id number] [place] [address] Neutrophils/100 WBC (Bld) 76.7 % Normal [facility] Comment on above: Order Comment: Speci men Type: BLOOD SPECIMENOrdering Facility: [facility] Address: [address] [place] [address] Performed By: #### 5 7021-8 ####[facility] LABCLIA [id number] [place] [address] Nucleated RBC (Bld) [#/Vol] 10*3/uL Normal <0.01 [facility] Comment on above: Order Comment: Speci men Type: BLOOD SPECIMENOrdering Facility: [facility] Address: [address] [place] [address] Performed By: #### 5 7021-8 ####[facility] LABCLIA [id number] [place] [address] Nucleated RBC/100 WBC (Bld) [Ratio] 0.0 /100 WBC Normal [facility] Comment on above: Order Comment: Speci men Type: BLOOD SPECIMENOrdering Facility: [facility] Address: [address] [place] [address] Performed By: #### 5 7021-8 ####[facility] LABCLIA [id number] [place] [address] Platelet mean volume (Bld) [Entitic vol] 9.0 fL Normal 9.0-12.7 [facility] Comment on above: Order Comment: Speci men Type: BLOOD SPECIMENOrdering Facility: [facility] Address: [address] [place] [address] Performed By: #### 5 7021-8 ####[facility] LABCLIA [id number] [place] [address] Platelets (Bld) [#/Vol] 247 10*3/uL Normal 150-400 [facility] Comment on above: Order Comment: Speci men Type: BLOOD SPECIMENOrdering Facility: [facility] Address: [address] [place] [address] Performed By: #### 5 7021-8 ####[facility] LABCLIA [id number] [place] [address] RBC (Bld) [#/Vol] 1.96 10*6/uL Low 3.90-5.20 [facility] Comment on above: Order Comment: Speci men Type: BLOOD SPECIMENOrdering Facility: [facility] Address: [address] [place] [address] Performed By: #### 5 7021-8 ####[facility] LABIA [id number] [place] [address] WBC (Bld) [#/Vol] 4.75 10*3/uL Normal 3.70-11.00 [facility] Comment on above: Order Comment: Speci men Type: BLOOD SPECIMENOrdering Facility: [facility] Address: [address] [place] [address] Performed By: #### 5 7021-8 ####[facility] LABIA [id number] [place] [address] [facility] Carcinoembryonic Ag [Mass/Vol] 2.2 ng/mL Normal <=2.9 [facility] Comment on above: Order Comment: Speci men Type: BLOOD SPECIMENOrdering Facility: [facility] Address: [address] [place] [address] Result Comment: Carc inoembryonic antigen test is used as an aid in monitoring response to treatment or recurrence in patients with established colorectal, breast, lung, prostatic, pancreatic, and ovarian carcinomas. Clinical correlation is required. The Carcinoembryonic antigen test was performed using the [employer] Un[employer] DXI paramagnetic particle chemiluminescent immunoassay method. Results obtained with different assay methods or kits cannot be used interchangeably. Performed By: #### 2 4108-3, 2038- ####[facility] LABCECILIO [id number] [address] [place] CNNURSEon 03-23-2024 [facility] Visit (HEMASA) KAYA SCHILLING ([id number]) 1965 F Date Time Provider Department 03/23/24 4:15 PM BRE NURSE BELTRAN YBARRA HEMAZUCENA During your visit today, we recorded the following information about you: Amirah Koch MA 03/23/2024 4:30 PM Signed Patient Identification confirmed: yes. Injection given and documented on NOV per provider order. Amirah Koch MA Referring Provider: BETO VIVAR [[id number]] Allergies As of Date: 03/23/2024 Noted Allergy Reaction PERCOCET (OXYCODONE-ACETAMINOPHE N)02/21/2015 8 - GI Upset STADOL (BUTORPHANOL TARTRATE) 10/26/2013 11 - Vomiting Comments: incoherent Date Reviewed: 03/23/2024 Reviewed by: Kalina Lopez MA - Fully Assessed Primary Visit Diagnosis:Megaloblastic anemia due to vitamin B12 deficiency [D53.1] Order(s):TREATMENT PARAMETER-NOT NEEDED [[id number]] Order #: [id number]: 1 BCN NURSING COMMUNICATION [[id number]] Order #: [id number]: 1 Prescriptions as of 03/23/2024 - HYDROcodone-Acetaminoph [...] deficie*05/25/2022 Visit Notes: >> Amirah Koch MA [facility] Mar 23, 2024 4:25 PM Status: Signed Patient Identification confirmed: yes. Injection given and documented on NOV per provider order. Amirah Koch MA Prescriptions ordered this encounter Disp Refills Start End CYANOCOBALAMIN (VIT B-12) 1,000 MCG/* 03/23/2024 03/23/2024 Route: INTRAMUSCULA Encounter Status:Closed by AMIRAH KOCH on 03/23/24 [facility] CNOVSPon 03-23-2024 CNOVSP Visit (SP) Office (HEMASA) KAYA SCHILLING ([id number]) 1965 F Date Time Provider Department 03/23/24 4:00 PM BETO VIVAR During your visit today, we recorded the following information about you: Temperature Pulse Respiration Blood pressure 97.8 degrees 79/minute 16/minute 172/84 Weight 52.1 kg Beto Vivar MD 03/24/2024 9:52 AM Signed PATIENT NAME: Kaya Schilling DATE: 03/23/2024 PRIMARY CARE PHYSICIAN: Kostas Steward DO OTHER PHYSICIANS: Dr. Cong Montano, Dr. Ramires (Psych in [place]) HPI: This is a 59 year old female with recently diagnosed gastric cancer, referred for further management. The patient presented 02/13/2024 to [facility] emergency room for evaluation of left sided [...] upper quadrant and lower abdomen ., [place] with relief. Not maarried. 2 children. Family [...] of broken nose had septoplasty Manic depression ([facility]) Dr. Rees Midline low back pain [...] exposure: [facility] (more content not included)... [facility] (HEMASA) KAYA SCHILLING ([id number]) 1965 F Date Time Provider Department 03/23/24 BREA VILLAGOMEZ During your visit today, we recorded the following information about you: Brea Villagomez RN 03/23/2024 8:54 AM Signed Per Minal @ [facility] Pathology, pt's HER2 FISH analysis is still pending. BORA Weaver Rebecca, RN 03/29/2024 9:04 AM Signed Results printed from [facility] Everywhere and placed in Dr's mail folder [...] Status:Closed by BREA VILLAGOMEZ on 03/29/24 Normal [facility] Cancer Ag19-9 SerPl-aCncon 0 03-23-2024 Cancer Ag 19-9 Qn 806.0 [arb'U]/mL High <36.0 C [facility] Comment on above: Order Comment: Paco fenton Type: BLOOD SPECIMENOrdering Facility: [facility] Address: [address] [place] [address] Result Comment: [facility] er antigen 19-9 test is used as an aid in monitoring response to treatment or recurrence in patients with established pancreatic, hepatobiliary, or gastrointestinal malignancies. Clinical correlation is required. The CA 19-9 Antigen test was performed using the Sophie [employer] Un[employer]el DXI paramagnetic particle chemiluminescent immunoassay method. Results obtained with different assay methods or kits cannot be used interchangeably. Performed By: #### 2 4108-3, 2039-02 ####[facility] LABCLIA [id number] [place] [address] [place] Comprehensive metabolic 2000 panelon 03-23-2024 Albumin [Mass/Vol] 3.8 g/dL Low 3.9-4.9 [facility] Comment on above: Order Comment: Speci men Type: BLOOD SPECIMENOrdering Facility: [facility] Address: [address] [place] [address] Performed By: #### 2 4323-8 ####[facility] LABCLIA [id number] [place] [address] ALP [Catalytic activity/Vol] 110 U/L Normal 34-123 [facility] Comment on above: Order Comment: Neelimai men Type: BLOOD SPECIMENOrdering Facility: [facility] Address: [address] [place] [address] Performed By: #### 2 4323-8 ####[facility] LABCLIA [id number] [place] [address] ALT [Catalytic activity/Vol] 7 U/L Normal 7-38 [facility] Comment on above: Order Comment: Speci men Type: BLOOD SPECIMENOrdering Facility: [facility] Address: [facility] [place] [address] Performed By: #### 2 4323-8 ####[facility] LABCLIA [id number] [place] [address] Anion gap [Moles/Vol] 9 mmol/L Normal 8-15 [facility] Comment on above: Order Comment: Speci men Type: BLOOD SPECIMENOrdering Facility: [facility] Address: [address] [place] [address] Performed By: #### 2 4323-8 ####[facility] LABCLIA [id number] [place] [address] AST [Catalytic activity/Vol] 18 U/L Normal 13-35 [facility] Comment on above: Order Comment: Speci men Type: BLOOD SPECIMENOrdering Facility: [facility] Address: [address] [place], [place] [address] Performed By: #### 2 4323-8 ####[facility] LABCLIA [id number] [place] [address] Bilirubin [Mass/Vol] 0.4 mg/dL Normal 0.2-1.3 [facility] Comment on above: Order Comment: Speci men Type: BLOOD SPECIMENOrdering Facility: [facility] Address: [address] [place] [address] Performed By: #### 2 4323-8 ####[facility] LABCLIA [id number] [place] [address] Calcium [Mass/Vol] 10.8 mg/dL High 8.5-10.2 [facility] Comment on above: Order Comment: Speci men Type: BLOOD SPECIMENOrdering Facility: [facility] Address: [address] [place] [address] Performed By: #### 2 4323-8 ####[facility] LABCLIA [id number] [place] [address] Chloride [Moles/Vol] 104 mmol/L Normal 98-107 [facility] Comment on above: Order Comment: Speci men Type: BLOOD SPECIMENOrdering Facility: [facility] Address: [address] [place] [address] Performed By: #### 2 4323-8 ####[facility] LABCLIA [id number] [place] [address] CO2 [Moles/Vol] 24 mmol/L Normal 22-30 [facility] Comment on above: Order Comment: Speci men Type: BLOOD SPECIMENOrdering Facility: [facility] Address: [address] [place] [address] Performed By: #### 2 4323-8 ####[facility] LABCLIA [id number] [place] [address] Creatinine [Mass/Vol] 1.25 mg/dL High 0.58-0.96 [facility] Comment on above: Order Comment: Speci men Type: BLOOD SPECIMENOrdering Facility: [facility] Address: [address] [place] [address] Performed By: #### 2 4323-8 ####[facility] LABCLIA [id number] [place] [address] Creatinine and Glomerular filtration rate.predicted panel (S/P/Bld) 49 mL/min/1.73m??? Low >=60 [facility] Comment on above: Order Comment: Speci men Type: BLOOD SPECIMENOrdering Facility: [facility] Address: [address] [place] [address] Result Comment: Carmen mated Glomerular Filtration Rate [...] actual GFR. Performed By: #### 2 4323-8 ####[facility] LABCLIA [id number] [place] [address] Glucose [Mass/Vol] 227 mg/dL High 74-99 [facility] Comment on above: Order Comment: Speci men Type: BLOOD SPECIMENOrdering Facility: [facility] Address: [address] [place] [address] Result Comment: The [place] Diabetes Association (ADA) provides guidance for cutoff [...] Standards of Medical Care in Diabetes 2016, [place] Diabetes Association. Diabetes Care. 2016.39(Suppl 1). Performed By: #### 2 4323-8 ####[facility] LABCLIA [id number] [place] [address] Potassium [Moles/Vol] 3.7 mmol/L Normal 3.7-5.1 [facility] Comment on above: Order Comment: Speci men Type: BLOOD SPECIMENOrdering Facility: [facility] Address: [address] [place] [address] Performed By: #### 2 4323-8 ####[facility] LABCLIA [id number] [place] [address] Protein [Mass/Vol] 6.9 g/dL Normal 6.3-8.0 [facility] Comment on above: Order Comment: Speci men Type: BLOOD SPECIMENOrdering Facility: [facility] Address: [address] [place] [address] Performed By: #### 2 4323-8 ####[facility] LABCLIA [id number] [place] [address] Sodium [Moles/Vol] 137 mmol/L Normal 136-144 [facility] Comment on above: Order Comment: Speci men Type: BLOOD SPECIMENOrdering Facility: [facility] Address: [address] [place] [address] Performed By: #### 2 4323-8 ####[facility] LABCLIA [id number] [place] [address] Urea nitrogen [Mass/Vol] 24 mg/dL High 7-21 [facility] Comment on above: Order Comment: Speci men Type: BLOOD SPECIMENOrdering Facility: [facility] Address: [address] [place] [address] Performed By: #### 2 4323-8 ####[facility] LABCLIA [id number] [place] [address] Ferritin SerPl-mCncon 2023 Ferritin [Mass/Vol] 19.5 ng/mL Normal 14.7-205.1 [facility] Comment on above: Order Comment: Speci men Type: BLOOD SPECIMENOrdering Facility: [facility] Address: [address] [place] [address] Performed By: #### 5 0190-8, 2276-4, T4FTI, 3016-3 ####[facility] LABCLIA [id number] [place] [address] [place] Iron and Iron binding capaci ty panelon 03-23-2024 Iron [Mass/Vol] 43 ug/dL Normal 41-186 [facility] Comment on above: Order Comment: Speci men Type: BLOOD SPECIMENOrdering Facility: [facility] Address: [address] [place] [address] Performed By: #### 5 0190-8, 6-4, T4FTI, 3016-3 ####[facility] LABIA [id number] [address] [address] [place] Iron binding capacity [Mass/Vol] 292 ug/dL Normal 232-386 [facility] Comment on above: Order Comment: Speci men Type: BLOOD SPECIMENOrdering Facility: [facility] Address: [address] [place] [address] Performed By: #### 5 0190-8, 6-4, T4FTI, 3016-3 ####[facility] [id number] [place] [address] [place] Iron/TIBC [Molar ratio] 14.7 % Low 15.0-57.0 [facility] Comment on above: Order Comment: Speci men Type: BLOOD SPECIMENOrdering Facility: [facility] Address: [address] [place] [address] Performed By: #### 5 0190-8, 6-4, T4FTI, 3016-3 ####[facility] [id number] [place] [address] [place] T4/FTI/T4Uon 03-23-2024 FTI 7.7 ug/dL Normal 5.3-10.8 [facility] Comment on above: Order Comment: Speci men Type: BLOOD SPECIMENOrdering Facility: [facility] Address: [address] [place] [address] Performed By: #### 5 0190-8, 6-4, T4FTI, 3016-3 ####[facility] [id number] [place] [id number] [place] T4 [Mass/Vol] 8.2 ug/dL Normal 5.5-10.2 [facility] Comment on above: Order Comment: Speci men Type: BLOOD SPECIMENOrdering Facility: [facility] Address: [address] [place] [address] Performed By: #### 5 0190-8, 6-4, T4FTI, 3016-3 ####[facility] LABCLIA [id number] [place] [address] [place] T4 uptake [Mass/Vol] 1.06 Normal 0.91-1.19 [facility] Comment on above: Order Comment: Speci men Type: BLOOD SPECIMENOrdering Facility: [facility] Address: [address] [place] [address] Performed By: #### 5 0190-8, 6-4, T4FTI, 3016-3 ####[facility] LABCLIA [id number] [place] [address] [place] TSH SerPl-aCncon 03-23-2024 TSH Qn 9.710 m[IU]/L High 0.270-4.200 [facility] Comment on above: Order Comment: Speci men Type: BLOOD SPECIMENOrdering Facility: [facility] Address: [address] [place] [address] Performed By: #### 5 0190-8, 6-4, T4FTI, 3016-3 ####[facility] LABCLIA [id number] [place] [address] [place] Vit B12 SerPl-mCncon 024 Cobalamin (Vitamin B12) [Mass/Vol] pg/mL Low 232-1245 [facility] Comment on above: Order Comment: Speci men Type: BLOOD SPECIMENOrdering Facility: [facility] Address: [address] [place] [address] Result Comment: Resu lt rechecked. Performed By: #### 2 132-9 ####[facility] LABCLIA [id number] [place] [address] [place] Surgical Pathologyon 024 Surgical Pathology Normal [facility] Comment on above: Result Comment: [facility] [address] [place], [place] [address] Surgical Pathology Consultation ADDENDUM SC Patient Name:KAYA SCHILLING:1965 (Age: 59)Gender:FTaken:4Reported:03/08/2024hysician(s):Cong Montano D.O. ([phone])Copy To: Rec. #:[id number]: #[id number] Final Pathologic Diagnosis 1. Cardia mass biopsy: Invasive ADENOCARCINOMA, intestinal type, low-grade. 2. Ascending colon polyp; polypectomy: Nondiagnostic sample (only food particles noted). Report Electronically Signed Out dorothea/03/08/2024Rigoberto Fischer MD Addendum ([facility]) Date Reported: 03/15/2024 Gastric HER2 Biomarker Reporting Template HER2 (by immunohistochemistry) Equivocal (score 2+) -see comment. Comment: The block has been sent out for HER2/apollo studies by FISH analysis; addendum to follow. Methods - Block: 1A Fixative: Formalin (Formalin-fixed, paraffin embedded tissue) HER2: FDA approved (test/vendor): Pathway/ Waterproof, Primary Antibody: 4B5 Detection System: Waterproof ultraView [place] DAB Detection Kit (indirect biotin-free detection) Scoring [...] of =5 neoplastic cells References 1. Martina AN, et al. HER2 Testing and Clinical Decision Making in Gastroesophageal Adenocarcinoma Guideline From the College of [place] Pathologists, [place] Society for Clinical Pathology, and [place] Society of Clinical Oncology. Arch Pathol Lab Med. 2016;140:8427-9666; doi:10.5858/arpa.3026-3630-YG; 10.5858/arpa.7333-2485-UO.s1) 2. Guero et al. HER2 diagnostics in gastric cancer-guideline validation and development of standardized immunohistochemical testing. [place] Arch. 2010; 457:299-307. 3. Benji YJ, Van Michaela E, Tim A, et al. Trastuzumab in combination with chemotherapy versus chemotherapy alone for treatment of HER2-positive gastric or gastro-oesophageal junction cancer (ToGA): A phase 3, open-label, randomized controlled trial. Lancet. 2010;376(3128):083-607. Electronically Signed Out Rigoberto Fischer MD Addendum ([facility]) Date Reported: 03/23/2024 Results of testing for HER2, Gastroesophageal FISH, Tissue are received on 03/23/2024 from [facility], [address] [place] [address] and are as follows: Result Summary: Negative [...] chromosome 17 centromere (D17Z1) control probe ([employer], [employer] Two technologists score signals in 60 total nuclei from invasive or metastatic tumor after confirmation of probe performance by concurrent controls. Scoring method: Manual. Please see the complete report from [facility] in the patient???s electronic medical record. Electronically Signed Out Rigoberto Fischer, (more content not included)... COMPLETE BLOOD COUNTon 01-20 Erythrocyte distribution width (RBC) [Ratio] 22.6 % High 11.5-15.0 [facility] Comment on above: Performed By: #### C BC, CMP, HA1C #### [facility] ([id number]) [address], [address] [place] [address] Hematocrit (Bld) [Volume fraction] 27.1 % Low 35-47 [facility] Comment on above: Performed By: #### C BC, CMP, HA1C #### [facility] ([id number]) [address], [address] [place] [address] Hemoglobin (Bld) [Mass/Vol] 9.1 g/dL Low 11.7-15.5 [facility] Comment on above: Performed By: #### C BC, CMP, HA1C #### [facility] ([id number]) [address] [place] [address] MCH (RBC) [Entitic mass] 36.9 pg High 27-34 [facility] Comment on above: Performed By: #### C BC, CMP, HA1C #### [facility] ([id number]) [address] [place] [address] MCHC (RBC) [Mass/Vol] 33.7 g/dL Normal 32-36 [facility] Comment on above: Performed By: #### C BC, CMP, HA1C #### [facility] ([id number]) [address], [facility] [address] [place] [address] MCV (RBC) [Entitic vol] 109 fL High 80-100 [facility] Comment on above: Performed By: #### Payton HA CMP, HA1C #### [facility] ([id number]) [address], [address] [place] [address] Platelet mean volume (Bld) [Entitic vol] 6.8 fL Low 7-12 [facility] Comment on above: Performed By: #### C DILCIA, CMP, HA1C #### [facility] ([id number]) [address] [address] [place] [address] Platelets (Bld) [#/Vol] 397 10*3/uL Normal 150-450 [facility] Comment on above: Performed By: #### C BC, CMP, HA1C #### [facility] ([id number]) [address], [facility] [address] [place] [address] RBC COUNT 2.47 X10E12/L Low 3.80-5.20 [facility] Comment on above: Performed By: #### C BC, CMP, HA1C #### [facility] ([id number]) [address], [address] [place] [address] WBC (Bld) [#/Vol] 4.8 10*3/uL Normal 4.0-11.0 [facility] Comment on above: Performed By: #### C BC, CMP, HA1C #### [facility] ([id number]) [address], [address] [place] [address] COMPREHENSIVE METABOLIC PANE [facility] 01-21-2024 Albumin [Mass/Vol] 3.9 g/dL Normal 3.2-5.3 [facility] Comment on above: Performed By: #### C BC, CMP, HA1C #### [facility] ([id number]) [address] [place] [address] ALP [Catalytic activity/Vol] 89 U/L Normal 39-130 [facility] Comment on above: Performed By: #### Payton BC CMP, HA1C #### [facility] ([id number]) [address] [place] [address] ALT [Catalytic activity/Vol] 8 U/L Normal 0-31 [facility] Comment on above: Performed By: #### C BC, CMP, HA1C #### [facility] ([id number]) [address], [address] [place] [address] Anion gap [Moles/Vol] 10 mmol/L Normal 5-15 [facility] Comment on above: Performed By: #### C DILCIA, CMP, HA1C #### [facility] ([id number]) [address], [address] [place] [address] AST [Catalytic activity/Vol] 13 U/L Normal 0-41 [facility] Comment on above: Performed By: #### Payton HA, CMP, HA1C #### [facility] ([id number]) [address], [address] [place] [address] Bilirubin [Mass/Vol] 0.9 mg/dL Normal 0.3-1.2 [facility] Comment on above: Performed By: #### C BC, CMP, HA1C #### [facility] ([id number]) [address], [address] [place] [address] Calcium [Mass/Vol] 10.7 mg/dL High 8.5-10.5 [facility] Comment on above: Performed By: #### C DILCIA CMP, HA1C #### [facility] ([id number]) [address], [address] [place] [address] Chloride [Moles/Vol] 104 mmol/L Normal 98-109 [facility] Comment on above: Performed By: #### C VALERIE HA, HA1C #### [facility] ([id number]) [address], [address] [place] [address] CO2 [Moles/Vol] 25 mmol/L Normal 22-32 [facility] Comment on above: Performed By: #### Payton HA CMP, HA1C #### [facility] ([id number]) [address], [address] [place] [address] Creatinine [Mass/Vol] 1.03 mg/dL High 0.40-1.00 [facility] Comment on above: Result Comment: METH OD TRACEABLE TO IDMS STANDARD Performed By: #### C VALERIE HA, HA1C #### [facility] ([id number]) [address] [place] [address] GFR/1.73 sq M.predicted among non-blacks MDRD (S/P/Bld) [Vol rate/Area] 62 mL/min/{1.73_m2} Normal >59 [facility] Comment on above: Result Comment: Reported eGFR is based on the CKD-EPI 2020 equation that does not use a race coefficient. Performed By: #### C VALERIE HA, HA1C #### [facility] ([id number]) [address] [place] [address] Glucose [Mass/Vol] 175 mg/dL High 65-99 [facility] Comment on above: Performed By: #### C DILCIA, CMP, HA1C #### [facility] ([id number]) [address] [place] [address] Potassium [Moles/Vol] 3.8 mmol/L Normal 3.5-5.0 [facility] Comment on above: Performed By: #### Payton HA, CMP, HA1C #### [facility] ([id number]) [address] [place] [address] Protein [Mass/Vol] 7.0 g/dL Normal 6.0-8.0 [facility] Comment on above: Performed By: #### Payton HA, CMP, HA1C #### [facility] ([id number]) [address] [place] [address] Sodium [Moles/Vol] 139 mmol/L Normal 134-146 [facility] Comment on above: Performed By: #### Payton HA, CMP, HA1C #### [facility] ([id number]) [address] [place] [address] Urea nitrogen [Mass/Vol] 20 mg/dL Normal 5-23 [facility] Comment on above: Performed By: #### Payton HA, CMP, HA1C #### [facility] ([id number]) [address] [place] [address] HGB A1C (GLYCO-HGB)on 2023 Glucose [Mass/Vol] 128 mg/dL Normal [facility] Comment on above: Performed By: #### C DILCIA, CMP, HA1C #### [facility] ([id number]) [address] [place] [address] HbA1c (Bld) [Mass fraction] 6.1 % High 4.4-5.6 [facility] Comment on above: Result Comment: NOTE ADA Guidelines Result HgbA1c Normal : less than 5.7 % Prediabetes : 5.7 % to 6.4 % Diabetes : > 6.4 % Use with caution in patients with abnormal hemoglobin variants as the half-life of red blood cells and in vivo glycation rates are affected. Performed By: #### C BC, CMP, HA1C #### [facility] ([id number]) [address] [address] [place] [address] Parathyrin.intact [Mass/Vol] on 01-21-2024 PTH INTACT 130 pg/mL High [facility] Comment on above: Performed By: #### 2 731-8 #### [facility] ([id number]) [address] [address] [place] [address] COMPLETE BLOOD COUNTon 08-23 Erythrocyte distribution width (RBC) [Ratio] 17.8 % High 11.5-15.0 [facility] Comment on above: Performed By: #### C DILCIA, CMP #### [facility] ([id number]) [address] [address] [place] [address] Hematocrit (Bld) [Volume fraction] 32.9 % Low 35-47 [facility] Comment on above: Performed By: #### C BC, CMP #### [facility] ([id number]) [address] [address] [place] [address] Hemoglobin (Bld) [Mass/Vol] 11.0 g/dL Low 11.7-15.5 [facility] Comment on above: Performed By: #### C BC, CMP #### [facility] ([id number]) [address] [address] MCH (RBC) [Entitic mass] 31.5 pg Normal 27-34 [facility] Comment on above: Performed By: #### C BC, CMP #### [facility] ([id number]) [address] [place] [address] MCHC (RBC) [Mass/Vol] 33.5 g/dL Normal 32-36 [facility] Comment on above: Performed By: #### C DILCIA, CMP #### [facility] ([id number]) [address] [place] [address] MCV (RBC) [Entitic vol] 94 fL Normal 80-100 [facility] Comment on above: Performed By: #### C DILCIA, CMP #### [facility] ([id number]) [address] [place] [address] Platelet mean volume (Bld) [Entitic vol] 6.8 fL Low 7-12 [facility] Comment on above: Performed By: #### Payton HA, CMP #### [facility] ([id number]) [address] [place] [address] Platelets (Bld) [#/Vol] 432 10*3/uL Normal 150-450 [facility] Comment on above: Performed By: #### Payton HA, CMP #### [facility] ([id number]) [address] [place] [address] RBC COUNT 3.50 X10E12/L Low 3.80-5.20 [facility] Comment on above: Performed By: #### Payton HA, CMP #### [facility] ([id number]) [address] [place] [address] WBC (Bld) [#/Vol] 7.1 10*3/uL Normal 4.0-11.0 [facility] Comment on above: Performed By: #### Payton HA, CMP #### [facility] ([id number]) [address] [place] [address] COMPREHENSIVE METABOLIC PANE Jj 08-23-2023 Albumin [Mass/Vol] 4.2 g/dL Normal 3.2-5.3 [facility] Comment on above: Performed By: #### C DILCIA, CMP #### [facility] ([id number]) [address] [place] [address] ALP [Catalytic activity/Vol] 115 U/L Normal 39-130 [facility] Comment on above: Performed By: #### C DILCIA, CMP #### [facility] ([id number]) [address] [place] [address] ALT [Catalytic activity/Vol] 12 U/L Normal 0-31 [facility] Comment on above: Performed By: #### C DILCIA, CMP #### [facility] ([id number]) [address] [place] [address] Anion gap [Moles/Vol] 8 mmol/L Normal 5-15 [facility] Comment on above: Performed By: #### C DILCIA, CMP #### [facility] ([id number]) [address] [place] [address] AST [Catalytic activity/Vol] 13 U/L Normal 0-41 [facility] Comment on above: Performed By: #### C DILCIA, CMP #### [facility] ([id number]) [address] [place] [address] Bilirubin [Mass/Vol] 0.3 mg/dL Normal 0.3-1.2 [facility] Comment on above: Performed By: #### C DILCIA, CMP #### [facility] ([id number]) [address] [place] [address] Calcium [Mass/Vol] 12.0 mg/dL High 8.5-10.5 [facility] Comment on above: Performed By: #### C BC, CMP #### [facility] ([id number]) [address] [place] [address] Chloride [Moles/Vol] 102 mmol/L Normal 98-109 [facility] Comment on above: Performed By: #### C DILCIA, CMP #### [facility] ([id number]) [address] [place] [address] CO2 [Moles/Vol] 26 mmol/L Normal 22-32 [facility] Comment on above: Performed By: #### C DILCIA, CMP #### [facility] ([id number]) [address] [place] [address] Creatinine [Mass/Vol] 0.80 mg/dL Normal 0.40-1.00 [facility] Comment on above: Result Comment: METH OD TRACEABLE TO IDMS STANDARD Performed By: #### C DILCIA, CMP #### [facility] ([id number]) [address] [place] [address] GFR/1.73 sq M.predicted among non-blacks MDRD (S/P/Bld) [Vol rate/Area] 85 mL/min/{1.73_m2} Normal >59 [facility] Comment on above: Result Comment: Reported eGFR is based on the CKD-EPI 2020 equation that does not use a race coefficient. Performed By: #### C DILCIA, CMP #### [facility] ([id number]) [address] [place] [address] Glucose [Mass/Vol] 152 mg/dL High 65-99 [facility] Comment on above: Performed By: #### C DILCIA, CMP #### [facility] ([id number]) [address], [address] [place] [address] Potassium [Moles/Vol] 4.5 mmol/L Normal 3.5-5.0 [facility] Comment on above: Performed By: #### C DILCIA, CMP #### [facility] ([id number]) [address], [address] [place] [address] Protein [Mass/Vol] 7.2 g/dL Normal 6.0-8.0 [facility] Comment on above: Performed By: #### C DILCIA, CMP #### [facility] ([id number]) [address] [facility] [address] [place] [address] Sodium [Moles/Vol] 136 mmol/L Normal 134-146 [facility] Comment on above: Performed By: #### C BC, CMP #### [facility] ([id number]) [address] [address] Urea nitrogen [Mass/Vol] 15 mg/dL Normal 5-23 [facility] Comment on above: Performed By: #### C DILCIA, CMP #### [facility] ([id number]) [address] [address] HGB A1C (GLYCO-HGB)on 2022 Glucose [Mass/Vol] 143 mg/dL Normal [facility] Comment on above: Performed By: #### C DILCIA, CMP #### [facility] ([id number]) [address] [address] HbA1c (Bld) [Mass fraction] 6.6 % High 4.4-5.6 [facility] Comment on above: Result Comment: NOTE ADA Guidelines Result HgbA1c Normal : less than 5.7 % Prediabetes : 5.7 % to 6.4 % Diabetes : > 6.4 % Use with caution in patients with abnormal hemoglobin variants as the half-life of red blood cells and in vivo glycation rates are affected. Performed By: #### C DILCIA, CMP #### [facility] ([id number]) [address] [address] [place] [address] MICROALBUMIN - ALBUMIN:CREAT ININE URINE RATIOon 08-23-2023 ALB/CREAT RATIO 76.0 mg/g creat High 0.0-30.0 [facility] Comment on above: Performed By: #### M ALBU #### [facility] ([id number]) [address], [address] [place] [address] Albumin DL <= 20 mg/L (U) [Mass/Vol] 3.0 mg/dL High 0.0-1.9 [facility] Comment on above: Performed By: #### M ALBU #### [facility] ([id number]) [address] [facility], [address] [place] [address] URINE CREAT 39.48 mg/dL Normal [facility] Comment on above: Performed By: #### M ALBU #### [facility] ([id number]) [address], [address] [place] [address] LITHIUMon 12-22-2022 Lavelle (Eskalith(R)), Serum 0.8 mmol/L Normal 0.5-1.2 [facility] Comment on above: Result Comment: A co ncentration of 0.5-0.8 mmol/L is advised for long-term use; concentrations of up to 1.2 mmol/L may be necessary during acute treatment. Detection Limit = 0.1 <0.1 indicates None Detected Performed By: #### O BSCRN #### [facility] [address] [place] [address] Dr. Rosangela Smyth CREATININEon 12-21-2022 Creatinine [Mass/Vol] 0.93 mg/dL Normal 0.55-1.02 [facility] Comment on above: Performed By: #### L IPID, CMP #### [facility] [address] [address] [address] Rosangela Smyth EGFR-AF IRANIAN >60 Normal >=60 [facility] Comment on above: Performed By: #### L IPID, CMP #### [facility] [address] [address] [address] Rosangela Smyth EGFR-NON AF IRANIAN >60 Normal >=60 [facility] Comment on above: Performed By: #### L IPID, CMP #### [facility] [address] [address] [address] Rosangela Smyth GLUCOSE BLOODon 12-21-2022 Glucose [Mass/Vol] 135 mg/dL Critically high 74-106 T [facility] Comment on above: Performed By: #### L IPID, CMP #### [facility] [address] [address] [address] Rosangela Smyth LIPID PROFILEon 12-21-2022 CHOL-HDL RATIO NORM SEE BELOW Normal [facility] Comment on above: Result Comment: 3.3 - 4.4 LOW RISK 4.4 - 7.1 AVERAGE RISK 7.1 - 11.0 MODERATE RISK >11.0 HIGH RISK Performed By: #### L IPID, CMP #### [facility] [address] [address] [address] Rosangela Smyth Cholesterol [Mass/Vol] 194 mg/dL Normal <=200 [facility] Comment on above: Performed By: #### L IPID, CMP #### [facility] [address] [address] [address] Rosangela Smyth Cholesterol in HDL [Mass/Vol] 68 mg/dL Critically high 40-60 [facility] Comment on above: Performed By: #### L IPID, CMP #### [facility] [address] [place] [address] Dr. Rosangela Smyth Cholesterol in LDL [Mass/Vol] 106.8 mg/dL Normal [facility] Comment on above: Performed By: #### L IPID, CMP #### [facility] [address] [address] [address] Rosangela Smyth Cholesterol.total/C holesterol in HDL [Mass ratio] 2.9 {ratio} Normal [facility] Comment on above: Performed By: #### L IPID, CMP #### [facility] [address] [address] [address] Rosangela Smyth HDL NORMAL > or = 60 mg/dl - LO W CARDIOVASCULAR RISK <40 mg/dl - HIGH CARDIOVASCULAR RISK Normal [facility] Comment on above: Performed By: #### L IPID, CMP #### [facility] [address] [place] [address] Dr. Rosangela Smyth LDL CALC NORMAL SEE BELOW Normal [facility] Comment on above: Result Comment: <100 mg/dl OPTIMAL 100 - 129 mg/dl NEAR OR ABOVE OPTIMAL 130 - 159 mg/dl BORDERLINE HIGH 160 - 189 mg/dl HIGH >190 mg/dl VERY HIGH Performed By: #### L IPID, CMP #### [facility] [address] [place] [address] Dr. Rosangela Smyth Triglyceride [Mass/Vol] 96 mg/dL Normal <=150 [facility] Comment on above: Performed By: #### L IPID, CMP #### [facility] [address] [place] [address] Dr. Rosangela Smyth VLDL CALC 19.2 mg/dL Normal [facility] Comment on above: Performed By: #### L IPID, CMP #### [facility] [address] [place] [address] Dr. Rosangela Smyth TSHon 12-21-2022 TSH 2.649 uIU/mL Normal 0.358-3.740 [facility] Comment on above: Performed By: #### L IPID, CMP #### [facility] [address] [place] [address] Dr. Rosangela Smyth CBC AUTO DIFFon 09-25-2022 BASO # 0.0 103/ul Normal 0.0-0.1 [facility] Comment on above: Performed By: #### C BC #### [facility] [address] [place] [address] Dr. Rosangela Smyth Basophils/100 WBC (Bld) 0.0 % Critically low 0.2-2.0 [facility] Comment on above: Performed By: #### C BC #### [facility] [address] [place] [address] Dr. Rosangela Smyth EO # 0.0 103/ul Normal 0.0-0.7 [facility] Comment on above: Performed By: #### C BC #### [facility] [address] [place] [address] Dr. Rosangela Smyth Eosinophils/100 WBC (Bld) 0.0 % Critically low 0.9-7.0 [facility] Comment on above: Performed By: #### C BC #### [facility] [address] [place] [address] Dr. Rosangela Smyth Erythrocyte distribution width (RBC) [Ratio] 15.9 % Critically high 11.0-15.0 [facility] Comment on above: Performed By: #### C BC #### [facility] [address] [place] [address] Dr. Rosangela Smyth Hematocrit (Bld) [Volume fraction] 25.7 % Critically low 36.0-48.0 [facility] Comment on above: Performed By: #### C BC #### [facility] [address] [place] [address] Dr. Rosangela Smyth Hemoglobin (Bld) [Mass/Vol] 8.3 g/dL Critically low 12.0-16.0 [facility] Comment on above: Performed By: #### C BC #### [facility] [address] [place] [address] Dr. Rosangela Smyth IG # 0.03 10e3/ul Normal 0.00-0.03 [facility] Comment on above: Performed By: #### C BC #### [facility] [address] [place] [address] Dr. Rosangela Smyth IG % 0.6 % Critically high 0.0-0.5 [facility] Comment on above: Performed By: #### C BC #### [facility] [address] [place] [address] Dr. Rosangela Smyth LYMPH # 0.7 103/ul Critically low 1.2-3.8 [facility] Comment on above: Performed By: #### C BC #### [facility] [address] [place] [address] Dr. Rosangela Smyth Lymphocytes/100 WBC (Bld) 13.8 % Critically low 20.5-60.0 [facility] Comment on above: Performed By: #### C BC #### [facility] [address] [place] [address] Dr. Rosangela Smyth MANUAL DIFF REQ NO Normal [facility] Comment on above: Performed By: #### C BC #### [facility] [address] [place] [address] Dr. Rosangela Smyth MCH (RBC) [Entitic mass] 31.1 pg Normal 26.7-34.0 [facility] Comment on above: Performed By: #### C BC #### [facility] [address] [place] [address] Dr. Rosangela Smyth MCHC (RBC) [Mass/Vol] 32.3 g/dL Normal 29.9-35.2 [facility] Comment on above: Performed By: #### C BC #### [facility] [address] [place] [address] Dr. Rosangela Smyth MCV (RBC) [Entitic vol] 96.3 fL Normal 81.0-99.0 [facility] Comment on above: Performed By: #### C BC #### [facility] [address] [place] [address] Dr. Rosangela Smyth MONO # 0.3 103/ul Normal 0.3-0.8 [facility] Comment on above: Performed By: #### C BC #### [facility] [address] [place] [address] Dr. Rosangela Smyth Monocytes/100 WBC (Bld) 4.9 % Normal 1.7-12.0 [facility] Comment on above: Performed By: #### C BC #### [facility] [address] [place] [address] Dr. Rosangela Smyth NEUT # 4.3 103/ul Normal 1.4-6.5 [facility] Comment on above: Performed By: #### C BC #### [facility] [address] [place] [address] Dr. Rosangela Smyth Neutrophils/100 WBC (Bld) 80.7 % Critically high 43.0-75.0 [facility] Comment on above: Performed By: #### C BC #### [facility] [address] [place] [address] Dr. Rosangela Smyth Platelet mean volume (Bld) [Entitic vol] 9.1 fL Critically low 9.5-13.5 [facility] Comment on above: Performed By: #### C BC #### [facility] [address] [place] [address] Dr. Rosangela Smyth PLT 234 103/ul Normal 150-450 [facility] Comment on above: Performed By: #### C BC #### [facility] [address] [address] [address] Rosangela Smyth RBC 2.67 106/ul Critically low 4.20-5.40 [facility] Comment on above: Performed By: #### C BC #### [facility] [address] [place] [address] Dr. Rosangela Smyth WBC 5.4 103/ul Normal 4.0-11.0 [facility] Comment on above: Performed By: #### C BC #### [facility] [address] [place] [address] Dr. Rosangela Smyth PROF CHEM 8 (BAS METB)on Anion gap [Moles/Vol] 11.7 mmol/L Normal [facility] Comment on above: Performed By: #### L IPID, CMP #### [facility] [address] [place] [address] Dr. Rosangela Smyth Calcium [Mass/Vol] 10.5 mg/dL Critically high 8.5-10.1 [facility] Comment on above: Performed By: #### L IPID, CMP #### [facility] [address] [place] [address] Dr. Rosangela Smyth Chloride [Moles/Vol] 114 mmol/L Critically high 98-107 [facility] Comment on above: Performed By: #### L IPID, CMP #### [facility] [address] [place] [address] Dr. Rosangela Smyth CO2 [Moles/Vol] 21.9 mmol/L Normal 21.0-32.0 [facility] Comment on above: Performed By: #### L IPID, CMP #### [facility] [address] [place] [address] Dr. Rosangela Smyth Creatinine [Mass/Vol] 0.91 mg/dL Normal 0.55-1.02 [facility] Comment on above: Performed By: #### L IPID, CMP #### [facility] [address] [address] [address] Rosangela Smyth EGFR-AF IRANIAN >60 Normal >=60 [facility] Comment on above: Performed By: #### L IPID, CMP #### [facility] [address] [address] [address] Rosangela Smyth EGFR-NON AF IRANIAN >60 Normal >=60 [facility] Comment on above: Performed By: #### L IPID, CMP #### [facility] [address] [place] [address] Dr. Rosangela Smyth Glucose [Mass/Vol] 108 mg/dL Critically high 74-106 T [facility] Comment on above: Performed By: #### L IPID, CMP #### [facility] [address] [address] [address] Rosangela Smyth Potassium [Moles/Vol] 3.6 mmol/L Normal 3.5-5.1 [facility] Comment on above: Performed By: #### L IPID, CMP #### [facility] [address] [place] [address] Dr. Rosangela Smyth Sodium [Moles/Vol] 144 mmol/L Normal 136-145 [facility] Comment on above: Performed By: #### L IPID, CMP #### [facility] [address] [address] [address] Rosangela Smyth Urea nitrogen [Mass/Vol] 20.0 mg/dL Critically high 7.0-18.0 [facility] Comment on above: Performed By: #### L IPID, CMP #### [facility] [address] [place] [address] Dr. Rosangela Smyth Urea nitrogen/Creatinine [Mass ratio] 22.0 mg/mg Normal [facility] Comment on above: Performed By: #### L IPID, CMP #### [facility] [address] [place] [address] Dr. Rosangela Smyth CBC AUTO DIFFon 09-24-2022 BASO # 0.0 103/ul Normal 0.0-0.1 [facility] Comment on above: Performed By: #### C BC #### [facility] [address] [address] [address] Rosangela Smyth Basophils/100 WBC (Bld) 0.0 % Critically low 0.2-2.0 [facility] Comment on above: Performed By: #### C BC #### [facility] [address] [place] [address] Dr. oRsangela Smyth EO # 0.0 103/ul Normal 0.0-0.7 [facility] Comment on above: Performed By: #### C BC #### [facility] [address] [place] [address] Dr. Rosangela Smyth Eosinophils/100 WBC (Bld) 0.0 % Critically low 0.9-7.0 [facility] Comment on above: Performed By: #### C BC #### [facility] [address] [place] [address] Dr. Rosangela Smyth Erythrocyte distribution width (RBC) [Ratio] 15.7 % Critically high 11.0-15.0 [facility] Comment on above: Performed By: #### C BC #### [facility] [address] [place] [address] Dr. Rosangela Smyth Hematocrit (Bld) [Volume fraction] 30.3 % Critically low 36.0-48.0 [facility] Comment on above: Performed By: #### C BC #### [facility] [address] [place] [address] Dr. Rosangela Smyth Hemoglobin (Bld) [Mass/Vol] 9.5 g/dL Critically low 12.0-16.0 [facility] Comment on above: Performed By: #### C BC #### [facility] [address] [place] [address] Dr. Rosangela Smyth IG # 0.02 10e3/ul Normal 0.00-0.03 [facility] Comment on above: Performed By: #### C BC #### [facility] [address] [place] [address] Dr. Rosangela Smyth IG % 0.6 % Critically high 0.0-0.5 [facility] Comment on above: Performed By: #### C BC #### [facility] [address] [place] [address] Dr. Rosangela Smyth LYMPH # 0.6 103/ul Critically low 1.2-3.8 [facility] Comment on above: Performed By: #### C BC #### [facility] [address] [place] [address] Dr. Rosangela Smyth Lymphocytes/100 WBC (Bld) 17.7 % Critically low 20.5-60.0 [facility] Comment on above: Performed By: #### C BC #### [facility] [address] [place] [address] Dr. Rosangela Smyth MANUAL DIFF REQ NO Normal [facility] Comment on above: Performed By: #### C BC #### [facility] [address] [place] [address] Dr. Rosangela Smyth MCH (RBC) [Entitic mass] 30.6 pg Normal 26.7-34.0 [facility] Comment on above: Performed By: #### C BC #### [facility] [address] [place] [address] Dr. Rosangela Smyth MCHC (RBC) [Mass/Vol] 31.4 g/dL Normal 29.9-35.2 [facility] Comment on above: Performed By: #### C BC #### [facility] [address] [place] [address] Dr. Rosangela Smyth MCV (RBC) [Entitic vol] 97.7 fL Normal 81.0-99.0 [facility] Comment on above: Performed By: #### C BC #### [facility] [address] [place] [address] Dr. Rosangela Smyth MONO # 0.1 103/ul Critically low 0.3-0.8 [facility] Comment on above: Performed By: #### C BC #### [facility] [address] [place] [address] Dr. Rosangela Smyth Monocytes/100 WBC (Bld) 2.5 % Normal 1.7-12.0 [facility] Comment on above: Performed By: #### C BC #### [facility] [address] [place] [address] Dr. Rosangela Smyth NEUT # 2.5 103/ul Normal 1.4-6.5 [facility] Comment on above: Performed By: #### C BC #### [facility] [address] [place] [address] Dr. Rosangela Smyth Neutrophils/100 WBC (Bld) 79.2 % Critically high 43.0-75.0 [facility] Comment on above: Performed By: #### C BC #### [facility] [address] [place] [address] Dr. Rosangela Smyth Platelet mean volume (Bld) [Entitic vol] 8.9 fL Critically low 9.5-13.5 [facility] Comment on above: Performed By: #### C BC #### [facility] [address] [place] [address] Dr. Rosangela Smyth PLT 218 103/ul Normal 150-450 [facility] Comment on above: Performed By: #### C BC #### [facility] [address] [place] [address] Dr. Rosangela Smyth RBC 3.10 106/ul Critically low 4.20-5.40 [facility] Comment on above: Performed By: #### C BC #### [facility] [address] [place] [address] Dr. Rosangela Smyth WBC 3.2 103/ul Critically low 4.0-11.0 [facility] Comment on above: Performed By: #### C BC #### [facility] [address] [place] [address] Dr. Rosangela Smyth POINT OF CARE GLUCOSEon 09-06 Glucose [Mass/Vol] 291 mg/dL Critically high 74-106 [facility] Comment on above: Performed By: #### P OCGLUC #### [facility] [address] [place] [address] Dr. Rosangela Smyth PROF CHEM 8 (BAS METB)on Anion gap [Moles/Vol] 14.6 mmol/L Normal [facility] Comment on above: Performed By: #### L ACT #### [facility] [address] [address] [address] Rosangela Smyth Calcium [Mass/Vol] 10.7 mg/dL Critically high 8.5-10.1 [facility] Comment on above: Performed By: #### L ACT #### [facility] [address] [address] [address] Rosangela Smyth Chloride [Moles/Vol] 113 mmol/L Critically high 98-107 [facility] Comment on above: Performed By: #### L ACT #### [facility] [address] [place] [address] Dr. Rosangela Smyth CO2 [Moles/Vol] 20.7 mmol/L Critically low 21.0-32.0 [facility] Comment on above: Performed By: #### L ACT #### [facility] [address] [address] [address] Rosangela Smyth Creatinine [Mass/Vol] 0.86 mg/dL Normal 0.55-1.02 [facility] Comment on above: Performed By: #### L ACT #### [facility] [address] [place] [address] Dr. Rosangela Smyth EGFR-AF IRANIAN >60 Normal >=60 [facility] Comment on above: Performed By: #### L ACT #### [facility] [address] [address] [address] Rosangela Smyth EGFR-NON AF IRANIAN >60 Normal >=60 [facility] Comment on above: Performed By: #### L ACT #### [facility] [address] [address] [address] Rosangela Smyth Glucose [Mass/Vol] 279 mg/dL Critically high 74-106 [facility] Comment on above: Performed By: #### L ACT #### [facility] [address] [address] [address] Rosangela Smyth Potassium [Moles/Vol] 4.3 mmol/L Normal 3.5-5.1 [facility] Comment on above: Performed By: #### L ACT #### [facility] [address] [place] [address] Dr. Rosangela Smyth Sodium [Moles/Vol] 144 mmol/L Normal 136-145 [facility] Comment on above: Performed By: #### L ACT #### [facility] [address] [address] [address] Rosangela Smyth Urea nitrogen [Mass/Vol] 14.0 mg/dL Normal 7.0-18.0 [facility] Comment on above: Performed By: #### L ACT #### [facility] [address] [place] [address] Dr. Rosangela Smyth Urea nitrogen/Creatinine [Mass ratio] 16.3 mg/mg Normal [facility] Comment on above: Performed By: #### L ACT #### [facility] [address] [place] [address] Dr. Rosangela Smyth CARDIAC CRYSTAL ADMITon 023 CK [Catalytic activity/Vol] 22 U/L Critically low 26-192 [facility] Comment on above: Performed By: #### L IPID, CMP #### [facility] [address] [place] [address] Dr. Rosangela Smyth CK.MB [Mass/Vol] ng/mL Normal <=3.60 [facility] Comment on above: Performed By: #### L IPID, CMP #### [facility] [address] [place] [address] Dr. Rosangela Smyth HSTROP 5.7 pg/mL Normal 4.0-51.3 [facility] Comment on above: Result Comment: CUT- OFF POINTS HAVE BEEN ESTABLISHED BASED ON THE FOURTH UNIVERSAL DEFINITIONS OF MYOCARDIAL INFARCTION. THE UPPER REFERENCE LIMIT (URL) OF TROPONIN, DEFINED THE 99TH PERCENTILE OF cTnI DISTRIBUTION IN A REFERENCE POPULATION, HAS BEEN CONFIRMED THE DECISION THRESHOLD FOR VT DIAGNOSIS. Performed By: #### L IPID, CMP #### [facility] [address] [place] [address] Dr. Rosangela Smyth JOVAN 40 ng/mL Normal 9-82 [facility] Comment on above: Performed By: #### L IPID, CMP #### [facility] [address] [place] [address] Dr. Rosangela Smyth CBC AUTO DIFFon 09-23-2022 BASO # 0.0 103/ul Normal 0.0-0.1 [facility] Comment on above: Performed By: #### L ACT #### [facility] [address] [place] [address] Dr. Rosangela Smyth Basophils/100 WBC (Bld) 0.0 % Critically low 0.2-2.0 [facility] Comment on above: Performed By: #### L ACT #### [facility] [address] [place] [address] Dr. Rosangela Smyth EO # 0.1 103/ul Normal 0.0-0.7 [facility] Comment on above: Performed By: #### L ACT #### [facility] [address] [place] [address] Dr. Rosangela Smyth Eosinophils/100 WBC (Bld) 1.8 % Normal 0.9-7.0 [facility] Comment on above: Performed By: #### L ACT #### [facility] [address] [place] [address] Dr. Rosangela Smyth Erythrocyte distribution width (RBC) [Ratio] 15.6 % Critically high 11.0-15.0 [facility] Comment on above: Performed By: #### L ACT #### [facility] [address] [place] [address] Dr. Rosangela Smyth Hematocrit (Bld) [Volume fraction] 26.0 % Critically low 36.0-48.0 [facility] Comment on above: Performed By: #### L ACT #### [facility] [address] [place] [address] Dr. Rosangela Smyth Hemoglobin (Bld) [Mass/Vol] 8.5 g/dL Critically low 12.0-16.0 [facility] Comment on above: Performed By: #### L ACT #### [facility] [address] [place] [address] Dr. Rosangela Smyth IG # 0.02 10e3/ul Normal 0.00-0.03 [facility] Comment on above: Performed By: #### L ACT #### [facility] [address] [place] [address] Dr. Rosangela Smyth IG % 0.5 % Normal 0.0-0.5 [facility] Comment on above: Performed By: #### L ACT #### [facility] [address] [place] [address] Dr. Rosangela Smyth LYMPH # 0.9 103/ul Critically low 1.2-3.8 [facility] Comment on above: Performed By: #### L ACT #### [facility] [address] [place] [address] Dr. Rosangela Smyth Lymphocytes/100 WBC (Bld) 24.0 % Normal 20.5-60.0 [facility] Comment on above: Performed By: #### L ACT #### [facility] [address] [place] [address] Dr. Rosangela Smyth MANUAL DIFF REQ NO Normal [facility] Comment on above: Performed By: #### L ACT #### [facility] [address] [place] [address] Dr. Rosangela Smyth MCH (RBC) [Entitic mass] 31.3 pg Normal 26.7-34.0 [facility] Comment on above: Performed By: #### L ACT #### [facility] Laboratory [address] [place] [address] Dr. Rosangela Smyth MCHC (RBC) [Mass/Vol] 32.7 g/dL Normal 29.9-35.2 [facility] Comment on above: Performed By: #### L ACT #### [facility] [address] [place] [address] Dr. Rosangela Smyth MCV (RBC) [Entitic vol] 95.6 fL Normal 81.0-99.0 [facility] Comment on above: Performed By: #### L ACT #### [facility] [address] [place] [address] Dr. Rosangela Smyth MONO # 0.2 103/ul Critically low 0.3-0.8 [facility] Comment on above: Performed By: #### L ACT #### [facility] [address] [place] [address] Dr. Rosangela Smyth Monocytes/100 WBC (Bld) 4.0 % Normal 1.7-12.0 [facility] Comment on above: Performed By: #### L ACT #### [facility] [address] [address] [address] Rosangela Smyth NEUT # 2.6 103/ul Normal 1.4-6.5 [facility] Comment on above: Performed By: #### L ACT #### [facility] [address] [place] [address] Dr. Rosangela Smyth Neutrophils/100 WBC (Bld) 69.7 % Normal 43.0-75.0 [facility] Comment on above: Performed By: #### L ACT #### [facility] [address] [place] [address] Dr. Rosangela Smyth Platelet mean volume (Bld) [Entitic vol] 9.1 fL Critically low 9.5-13.5 [facility] Comment on above: Performed By: #### L ACT #### [facility] [address] [place] [address] Dr. Rosangela Smyth PLT 244 103/ul Normal 150-450 [facility] Comment on above: Performed By: #### L ACT #### [facility] [address] [place] [address] Dr. Rosangela Smyth RBC 2.72 106/ul Critically low 4.20-5.40 [facility] Comment on above: Performed By: #### L ACT #### [facility] [address] [place] [address] Dr. Rosangela Smyth WBC 3.8 103/ul Critically low 4.0-11.0 [facility] Comment on above: Performed By: #### L ACT #### [facility] [address] [place] [address] Dr. Rosangela Smyth BASO # 0.0 103/ul Normal 0.0-0.1 [facility] Comment on above: Performed By: #### L IPID, CMP #### [facility] [address] [place] [address] Dr. Rosangela Smyth Basophils/100 WBC (Bld) 0.3 % Normal 0.2-2.0 [facility] Comment on above: Performed By: #### L IPID, CMP #### [facility] [address] [place] [address] Dr. Rosangela Smyth EO # 0.0 103/ul Normal 0.0-0.7 [facility] Comment on above: Performed By: #### L IPID, CMP #### [facility] [address] [place] [address] Dr. Rosangela Smyth Eosinophils/100 WBC (Bld) 1.1 % Normal 0.9-7.0 [facility] Comment on above: Performed By: #### L IPID, CMP #### [facility] [address] [place] [address] Dr. Rosangela Smyth Erythrocyte distribution width (RBC) [Ratio] 15.5 % Critically high 11.0-15.0 [facility] Comment on above: Performed By: #### L IPID, CMP #### [facility] [address] [place] [address] Dr. Rosangela Smyth Hematocrit (Bld) [Volume fraction] 31.9 % Critically low 36.0-48.0 [facility] Comment on above: Performed By: #### L IPID, CMP #### [facility] [address] [place] [address] Dr. Rosangela Smyth Hemoglobin (Bld) [Mass/Vol] 10.4 g/dL Critically low 12.0-16.0 [facility] Comment on above: Performed By: #### L IPID, CMP #### [facility] [address] [place] [address] Dr. Rosangela Smyth IG # 0.03 10e3/ul Normal 0.00-0.03 [facility] Comment on above: Performed By: #### L IPID, CMP #### [facility] [address] [place] [address] Dr. Rosangela Smyth IG % 0.8 % Critically high 0.0-0.5 [facility] Comment on above: Performed By: #### L IPID, CMP #### [facility] [address] [place] [address] Dr. Rosangela Smyth LYMPH # 1.0 103/ul Critically low 1.2-3.8 [facility] Comment on above: Performed By: #### L IPID, CMP #### [facility] [address] [place] [address] Dr. Rosangela Smyth Lymphocytes/100 WBC (Bld) 26.4 % Normal 20.5-60.0 [facility] Comment on above: Performed By: #### L IPID, CMP #### [facility] [address] [place] [address] Dr. Rosangela Smyth MANUAL DIFF REQ NO Normal [facility] Comment on above: Performed By: #### L IPID, CMP #### [facility] [address] [place] [address] Dr. Rosangela Smyth MCH (RBC) [Entitic mass] 30.7 pg Normal 26.7-34.0 [facility] Comment on above: Performed By: #### L IPID, CMP #### [facility] [address] [place] [address] Dr. Rosangela Smyth MCHC (RBC) [Mass/Vol] 32.6 g/dL Normal 29.9-35.2 [facility] Comment on above: Performed By: #### L IPID, CMP #### [facility] [address] [place] [address] Dr. Rosangela Smyth MCV (RBC) [Entitic vol] 94.1 fL Normal 81.0-99.0 [facility] Comment on above: Performed By: #### L IPID, CMP #### [facility] [address] [place] [address] Dr. Rosangela Smyth MONO # 0.1 103/ul Critically low 0.3-0.8 [facility] Comment on above: Performed By: #### L IPID, CMP #### [facility] [address] [address] [address] Rosangela Smyth Monocytes/100 WBC (Bld) 3.2 % Normal 1.7-12.0 [facility] Comment on above: Performed By: #### L IPID, CMP #### [facility] [address] [address] [address] Rosangela Smyth NEUT # 2.5 103/ul Normal 1.4-6.5 [facility] Comment on above: Performed By: #### L IPID, CMP #### [facility] [address] [place] [address] Dr. Rosangela Smyth Neutrophils/100 WBC (Bld) 68.2 % Normal 43.0-75.0 [facility] Comment on above: Performed By: #### L IPID, CMP #### [facility] [address] [place] [address] Dr. Rosangela Smyth Platelet mean volume (Bld) [Entitic vol] 8.8 fL Critically low 9.5-13.5 [facility] Comment on above: Performed By: #### L IPID, CMP #### [facility] [address] [address] [address] Rosangela Smyth PLT 242 103/ul Normal 150-450 [facility] Comment on above: Performed By: #### L IPID, CMP #### [facility] [address] [place] [address] Dr. Rosangela Smyth RBC 3.39 106/ul Critically low 4.20-5.40 [facility] Comment on above: Performed By: #### L IPID, CMP #### [facility] [address] [place] [address] Dr. Rosangela Smyth WBC 3.7 103/ul Critically low 4.0-11.0 [facility] Comment on above: Performed By: #### L IPID, CMP #### [facility] [address] [place] [address] Dr. Rosangela Smyth CTA CHEST WO W [...] KWAN MADRID Date: 2022-09-23 01:51 Normal [facility] CULTURE BLOODon 09-23-2022 Microscopic examination of blood, culture Culture Observations: NO GROWTH AT 5 DAYS. Normal [facility] Comment on above: Performed By: #### L IPID, CMP #### [facility] [address] [address] [address] Rosangela Smyth Microscopic examination of blood, culture Culture Observations: NO GROWTH AT 5 DAYS. Normal [facility] Comment on above: Performed By: #### L IPID, CMP #### [facility] [address] [place], [place] [address] Dr. Rosangela Smyth Covid-19 PCR (CVDTB)on 09-06 SARS-CoV-2 (COVID-19) RNA RICH+probe Ql (Unsp spec) Detected Abnormal NOT DETECTED [facility] Comment on above: Result Comment: This test is not yet approved or cleared by the [place] FDA. When there are no FDA-approved or cleared tests available, and other criteria are met, FDA can make tests available under an emergency access mechanism called an Emergency Use Authorization (EUA). The EUA for this test is supported by the Pest Control Worker of Health and Human Service's declaration that [...] used). Performed By: #### O BSCRN #### [facility] [address] [place] [address] Dr. Rosangela Smyth D-DIMERon 09-23-2022 D-DIMER 0.78 mg/L FEU Critically high <=0.59 [facility] Comment on above: Performed By: #### O BSCRN #### [facility] [address] [place] [address] Dr. Rosangela Smyth D-DIMER COMMENTS SEE BELOW Normal [facility] [place] Comment on above: Result Comment: Incr eases [...] hospitalization. Performed By: #### O BSCRN #### [facility] [address] [place] [address] Dr. Rosangela Smyth ER URINE PROFILEon 3 Bilirubin Ql (U) Negative Normal NEGATIVE [facility] [place] Comment on above: Performed By: #### L IPID, CMP #### [facility] [address] [place] [address] Dr. Rosangela Smyth Clarity (U) CLEAR Normal CLEAR [facility] Comment on above: Performed By: #### L IPID, CMP #### [facility] [address] [place] [address] Dr. Rosangela Smyth Color (U) LT. YELLOW Normal YELLOW [facility] Comment on above: Performed By: #### L IPID, CMP #### [facility] [address] [address] [address] Rosangela ANAND A micrscopic examination will be performed if indicated. Normal [facility] Comment on above: Performed By: #### L IPID, CMP #### [facility] [address] [address] [address] Rosangela Smyth Glucose Ql (U) 250 mg/dl Abnormal NEGATIVE [facility] Comment on above: Performed By: #### L IPID, CMP #### [facility] [address] [place] [address] Dr. Rosangela Smyth Hemoglobin Ql (U) Negative Normal NEGATIVE [facility] Comment on above: Performed By: #### L IPID, CMP #### [facility] [address] [place] [address] Dr. Rosangela Smyth Ketones Ql (U) Negative Normal NEGATIVE [facility] Comment on above: Performed By: #### L IPID, CMP #### [facility] [address] [place] [address] Dr. Rosangela Smyth LEUKOCYTES Negative Normal NEGATIVE [facility] Comment on above: Performed By: #### L IPID, CMP #### [facility] [address] [place] [address] Dr. Rosangela Smyth Nitrite Ql (U) Negative Normal NEGATIVE [facility] Comment on above: Performed By: #### L IPID, CMP #### [facility] [address] [address] [address] Rosangela Smyth pH (U) 6.0 [pH] Normal 5-9 [facility] Comment on above: Performed By: #### L IPID, CMP #### [facility] [address] [place] [address] Dr. Rosangela Smyth SPEC GRAVITY 1.015 Normal 1.005-<=1.02 5 [facility] Comment on above: Performed By: #### L IPID, CMP #### [facility] [address] [place] [address] Dr. Rosangela Smyth UA PROTEIN TRACE Normal NEGATIVE/ TRACE [facility] Comment on above: Performed By: #### L IPID, CMP #### [facility] [address] [place] [address] Dr. Rosangela Smyth UR MICRO IND NOT INDICATED Normal [facility] Comment on above: Performed By: #### L IPID, CMP #### [facility] [address] [place] [address] Dr. Rosangela Smyth Urobilinogen Qn (U) 0.2 {Estevan'U}/dL Normal 0.2 - 1. 0 [facility] Comment on above: Performed By: #### L IPID, CMP #### [facility] [address] [place] [address] Dr. Rosangela Smyth INFLUENZA A AND B AGon 09-23 INFLUENZA A AG Negative Normal NEGATIVE SEE COMMENT [facility] Comment on above: Performed By: #### L IPID, CMP #### [facility] [address] [place] [address] Dr. Rosangela Smyth INFLUENZA B AG Negative Normal NEGATIVE SEE COMMENT [facility] Comment on above: Performed By: #### L IPID, CMP #### [facility] [address] [place] [address] Dr. Rosangela Smyth LACTATE/LACTIC ACIDon 2022 Lactate [Moles/Vol] 1.4 mmol/L Normal 0.4-1.9 [facility] Comment on above: Performed By: #### O BSCRN #### [facility] [address] [place] [address] Dr. Rosangela Smyth Lactate [Moles/Vol] 0.9 mmol/L Normal 0.4-1.9 [facility] Comment on above: Performed By: #### C BC #### [facility] [address] [place] [address] Dr. Rosangela Smyth Lactate [Moles/Vol] 1.4 mmol/L Normal 0.4-1.9 [facility] Comment on above: Performed By: #### L ACT #### [facility] [address] [place] [address] Dr. Rosangela Smyth POINT OF CARE GLUCOSEon 09-06 Glucose [Mass/Vol] 421 mg/dL Critically high 74-106 [facility] Comment on above: Performed By: #### O BSCRN #### [facility] [address] [address] [address] Rosangela Smyth PROF 14(COMP METB)on 023 Albumin [Mass/Vol] 2.7 g/dL Critically low 3.4-5.[address] [facility] Comment on above: Performed By: #### O BSCRN #### [facility] [address] [address] [address] Rosangela Smyth Albumin/Globulin [Mass ratio] 0.7 {ratio} Normal [facility] Comment on above: Performed By: #### O BSCRN #### [facility] [address] [place] [address] Dr. Rosangela Smyth ALP [Catalytic activity/Vol] 76 U/L Normal 46-116 [facility] Comment on above: Performed By: #### O BSCRN #### [facility] [address] [address] [address] Rosangela Smyth ALT [Catalytic activity/Vol] 19 U/L Normal 14-59 [facility] Comment on above: Performed By: #### O BSCRN #### [facility] [address] [address] [address] Rosangela Smyth Anion gap [Moles/Vol] 11.9 mmol/L Normal [facility] Comment on above: Performed By: #### O BSCRN #### [facility] [address] [address] [address] Rosangela Smyth AST [Catalytic activity/Vol] 20 U/L Normal 15-37 [facility] Comment on above: Performed By: #### O BSCRN #### [facility] [address] [address] [address] Rosangela Smyth Bilirubin [Mass/Vol] 0.3 mg/dL Normal 0.2-1.0 [facility] Comment on above: Performed By: #### O BSCRN #### [facility] [address] [address] [address] Rosangela Smyth Calcium [Mass/Vol] 10.2 mg/dL Critically high 8.5-10.1 [facility] Comment on above: Performed By: #### O BSCRN #### [facility] [address] [address] [address] Rosangela Smyth Chloride [Moles/Vol] 103 mmol/L Normal 98-107 [facility] Comment on above: Performed By: #### O BSCRN #### [facility] [address] [address] [address] Rosangela Smyth CO2 [Moles/Vol] 23.7 mmol/L Normal 21.0-32.0 [facility] Comment on above: Performed By: #### O BSCRN #### [facility] [address] [place] [address] Dr. Rosangela Smyth Creatinine [Mass/Vol] 0.90 mg/dL Normal 0.55-1.02 [facility] Comment on above: Performed By: #### O BSCRN #### [facility] [address] [address] [address] Rosangela Smyth EGFR-AF IRANIAN >60 Normal >=60 [facility] Comment on above: Performed By: #### O BSCRN #### [facility] [address] [place] [address] Dr. Rosangela Smyth EGFR-NON AF IRANIAN >60 Normal >=60 [facility] Comment on above: Performed By: #### O BSCRN #### [facility] [address] [place] [address] Dr. Rosangela Smyth Globulin (S) [Mass/Vol] 3.9 g/dL Normal [facility] Comment on above: Performed By: #### O BSCRN #### [facility] [address] [address] [address] Rosangela Smyth Glucose [Mass/Vol] 237 mg/dL Critically high 74-106 [facility] Comment on above: Performed By: #### O BSCRN #### [facility] [address] [address] [address] Rosangela Smyth Potassium [Moles/Vol] 3.6 mmol/L Normal 3.5-5.1 [facility] Comment on above: Performed By: #### O BSCRN #### [facility] [address] [address] [address] Rosangela Smyth Protein [Mass/Vol] 6.6 g/dL Normal 6.4-8.2 [facility] Comment on above: Performed By: #### O BSCRN #### [facility] [address] [address] [address] Rosangela Smyth Sodium [Moles/Vol] 135 mmol/L Critically low 136-[address] [facility] Comment on above: Performed By: #### O BSCRN #### [facility] [address] [place] [address] Dr. Rosangela Smyth Urea nitrogen [Mass/Vol] 11.0 mg/dL Normal 7.0-18.0 [facility] Comment on above: Performed By: #### O BSCRN #### [facility] [address] [address] [address] Rosangela Smyth Urea nitrogen/Creatinine [Mass ratio] 12.2 mg/mg [facility] Comment on above: Performed By: #### O BSCRN #### [facility] [address] [address] [address] Rosangela Smyth PROF CHEM 8 (BAS METB)on Anion gap [Moles/Vol] 10.7 mmol/L [facility] Comment on above: Performed By: #### L IPID, CMP #### [facility] [address] [address] [address] Rosangela Smyth Calcium [Mass/Vol] 10.3 mg/dL Critically high 8.5-10.1 [facility] Comment on above: Performed By: #### L IPID, CMP #### [facility] [address] [address] [address] Rosangela Smyth Chloride [Moles/Vol] 97 mmol/L Critically low 98-107 [facility] Comment on above: Performed By: #### L IPID, CMP #### [facility] [address] [address] [address] Rosangela Smyth CO2 [Moles/Vol] 26.1 mmol/L Normal 21.0-32.0 [facility] Comment on above: Performed By: #### L IPID, CMP #### [facility] [address] [address] [address] Rosangela Smyth Creatinine [Mass/Vol] 1.05 mg/dL Critically high 0.55-1.02 [facility] Comment on above: Performed By: #### L IPID, CMP #### [facility] [address] [address] [address] Rosangela Smyth EGFR-AF IRANIAN >60 Normal >=60 [facility] Comment on above: Performed By: #### L IPID, CMP #### [facility] [address] [address] [address] Rosangela Smyth EGFR-NON AF IRANIAN 54 mL/min/1.73m2 Critically low >=60 [facility] Comment on above: Performed By: #### L IPID, CMP #### [facility] [address] [address] [address] Rosangela Smyth Glucose [Mass/Vol] 255 mg/dL Critically high 74-106 [facility] Comment on above: Performed By: #### L IPID, CMP #### [facility] [address] [address] [address] Rosangela Smyth Potassium [Moles/Vol] 3.8 mmol/L Normal 3.5-5.1 [facility] Comment on above: Performed By: #### L IPID, CMP #### [facility] [address] [address] [address] Rosangela Smyth Sodium [Moles/Vol] 130 mmol/L Critically low 136-145 [facility] Comment on above: Performed By: #### L IPID, CMP #### [facility] [address] [address] [address] Rosangela Smyth Urea nitrogen [Mass/Vol] 18.0 mg/dL Normal 7.0-18.0 [facility] Comment on above: Performed By: #### L IPID, CMP #### [facility] [address] [address] [address] Rosangela Smyth Urea nitrogen/Creatinine [Mass ratio] 17.1 mg/mg Normal [facility] Comment on above: Performed By: #### L IPID, CMP #### [facility] [address] [address] [address] Rosangela Smyth XR CHEST 1 Von [...] JUSTINA CURRAN Date: 2022-09-23 16:33 Normal [facility] XR CHEST 1 V XR CHEST [...] RAUL MARVIN Date: 2022-09-23 00:05 Normal [facility] CARDIAC CRYSTAL ADMITon 023 CK [Catalytic activity/Vol] 44 U/L Normal 26-192 [facility] Comment on above: Performed By: #### C MP, CMADM #### [facility] [address] [place], [place] [address] Dr. Rosangela Smyth CK.MB [Mass/Vol] ng/mL Normal <=3.60 [facility] Comment on above: Performed By: #### C MP, CMADM #### [facility] [address] [place] [address] Dr. Rosangela Smyth HSTROP 6.3 pg/mL Normal 4.0-51.3 [facility] Comment on above: Result Comment: CUT- OFF POINTS HAVE BEEN ESTABLISHED BASED ON THE FOURTH UNIVERSAL DEFINITIONS OF MYOCARDIAL INFARCTION. THE UPPER REFERENCE LIMIT (URL) OF TROPONIN, DEFINED THE 99TH PERCENTILE OF cTnI DISTRIBUTION IN A REFERENCE POPULATION, HAS BEEN CONFIRMED THE DECISION THRESHOLD FOR VT DIAGNOSIS. Performed By: #### C MP, CMADM #### [facility] [address] [place] [address] Dr. Rosangela Smyth JOVAN 39 ng/mL Normal 9-82 [facility] Comment on above: Performed By: #### C NERIS, CMADM #### [facility] [address] [place] [address] Dr. Rosangela Smyth CBC AUTO DIFFon 09-12-2022 BASO # 0.0 103/ul Normal 0.0-0.1 [facility] Comment on above: Performed By: #### L ACT #### [facility] [address] [place] [address] Dr. Rosangela Smyth Basophils/100 WBC (Bld) 0.3 % Normal 0.2-2.0 [facility] Comment on above: Performed By: #### L ACT #### [facility] [address] [place] [address] Dr. Rosangela Smyth EO # 0.1 103/ul Normal 0.0-0.7 [facility] Comment on above: Performed By: #### L ACT #### [facility] [address] [address] [address] Rosangela Smyth Eosinophils/100 WBC (Bld) 1.4 % Normal 0.9-7.0 [facility] Comment on above: Performed By: #### L ACT #### [facility] [address] [place] [address] Dr. Rosangela Smyth Erythrocyte distribution width (RBC) [Ratio] 16.1 % Critically high 11.0-15.0 [facility] Comment on above: Performed By: #### L ACT #### [facility] [address] [address] [address] Rosangela Smyth Hematocrit (Bld) [Volume fraction] 27.6 % Critically low 36.0-48.0 [facility] Comment on above: Performed By: #### L ACT #### [facility] [address] [place] [address] Dr. Rosangela Smyth Hemoglobin (Bld) [Mass/Vol] 9.2 g/dL Critically low 12.0-16.0 [facility] Comment on above: Performed By: #### L ACT #### [facility] [address] [place] [address] Dr. Rosangela Smyth IG # 0.01 10e3/ul Normal 0.00-0.03 [facility] Comment on above: Performed By: #### L ACT #### [facility] [address] [place] [address] Dr. Rosangela Smyth IG % 0.3 % Normal 0.0-0.5 [facility] Comment on above: Performed By: #### L ACT #### [facility] [address] [place] [address] Dr. Rosangela Smyth LYMPH # 0.6 103/ul Critically low 1.2-3.8 [facility] Comment on above: Performed By: #### L ACT #### [facility] [address] [place] [address] Dr. Rosangela Smyth Lymphocytes/100 WBC (Bld) 17.1 % Critically low 20.5-60.0 [facility] Comment on above: Performed By: #### L ACT #### [facility] [address] [place] [address] Dr. Rosangela Smyth MANUAL DIFF REQ NO Normal [facility] Comment on above: Performed By: #### L ACT #### [facility] [address] [place] [address] Dr. Rosangela Smyth MCH (RBC) [Entitic mass] 30.6 pg Normal 26.7-34.0 [facility] Comment on above: Performed By: #### L ACT #### [facility] [address] [address] [address] Rosangela Smyth MCHC (RBC) [Mass/Vol] 33.3 g/dL Normal 29.9-35.2 [facility] Comment on above: Performed By: #### L ACT #### [facility] [address] [address] [address] Rosangela Smyth MCV (RBC) [Entitic vol] 91.7 fL Normal 81.0-99.0 [facility] Comment on above: Performed By: #### L ACT #### [facility] [address] [address] [address] Rosangela Smyth MONO # 0.4 103/ul Normal 0.3-0.8 [facility] Comment on above: Performed By: #### L ACT #### [facility] [address] [place] [address] Dr. Rosangela Smyth Monocytes/100 WBC (Bld) 10.0 % Normal 1.7-12.0 [facility] Comment on above: Performed By: #### L ACT #### [facility] [address] [address] [address] Rosangela Smyth NEUT # 2.6 103/ul Normal 1.4-6.5 [facility] Comment on above: Performed By: #### L ACT #### [facility] [address] [place] [address] Dr. Rosangela Smyth Neutrophils/100 WBC (Bld) 70.9 % Normal 43.0-75.0 [facility] Comment on above: Performed By: #### L ACT #### [facility] [address] [address] [address] Rosangela Smyth Platelet mean volume (Bld) [Entitic vol] 8.2 fL Critically low 9.5-13.5 [facility] Comment on above: Performed By: #### L ACT #### [facility] [address] [address] [address] Rosangela Smyth PLT 277 103/ul Normal 150-450 [facility] Comment on above: Performed By: #### L ACT #### [facility] [address] [address] [address] Rosangela Smyth RBC 3.01 106/ul Critically low 4.20-5.40 [facility] Comment on above: Performed By: #### L ACT #### [facility] [address] [address] [address] Rosangela Smyth WBC 3.7 103/ul Critically low 4.0-11.0 [facility] Comment on above: Performed By: #### L ACT #### [facility] [address] [address] [address] Rosangela Smyth GROUP A STREP CULTUREon S. pyogenes Ag Ql (Unsp spec) Culture Observations: NEGATIVE FOR GROUP A STREPTOCOCCUS. Normal [facility] Comment on above: Performed By: #### L ACT #### [facility] [address] [place] [address] Dr. Rosangela Smyth PROF 14(COMP METB)on 023 Albumin [Mass/Vol] 3.8 g/dL Normal 3.4-5.0 [facility] Comment on above: Performed By: #### C VIRAL CORDON #### [facility] [address] [place] [address] Dr. Rosangela Smyth Albumin/Globulin [Mass ratio] 1.1 {ratio} Normal [facility] Comment on above: Performed By: #### C YULIANA CORDONDM #### [facility] [address] [place] [address] Dr. Rosangela Smyth ALP [Catalytic activity/Vol] 88 U/L Normal 46-116 [facility] Comment on above: Performed By: #### C YULIANA CORDONDM #### [facility] [address] [place] [address] Dr. Rosangela Smyth ALT [Catalytic activity/Vol] 31 U/L Normal 14-59 [facility] Comment on above: Performed By: #### C YULIANA CORDONDM #### [facility] [address] [place] [address] Dr. Rosangela Smyth Anion gap [Moles/Vol] 10.2 mmol/L Normal [facility] Comment on above: Performed By: #### C NERIS, CMADM #### [facility] [address] [address] [address] Rosangela Smyth AST [Catalytic activity/Vol] 24 U/L Normal 15-37 [facility] Comment on above: Performed By: #### C NERIS, CMADM #### [facility] [address] [place] [address] Dr. Rosangela Smyth Bilirubin [Mass/Vol] 0.3 mg/dL Normal 0.2-1.0 [facility] Comment on above: Performed By: #### C NERIS, CMADM #### [facility] [address] [place] [address] Dr. Rosangela Smyth Calcium [Mass/Vol] 11.1 mg/dL Critically high 8.5-10.1 [facility] Comment on above: Performed By: #### C NERIS, CMADM #### [facility] [address] [place] [address] Dr. Rosangela Smyth Chloride [Moles/Vol] 101 mmol/L Normal 98-107 [facility] Comment on above: Performed By: #### C NERIS, CMADM #### [facility] [address] [place] [address] Dr. Rosangela Smyth CO2 [Moles/Vol] 26.4 mmol/L Normal 21.0-32.0 [facility] Comment on above: Performed By: #### C NERIS, CMADM #### [facility] [address] [place] [address] Dr. Rosangela Smyth Creatinine [Mass/Vol] 1.15 mg/dL Critically high 0.55-1.02 [facility] Comment on above: Performed By: #### C NERIS, CMADM #### [facility] [address] [place] [address] Dr. Rosangela Smyth EGFR-AF IRANIAN 59 mL/min/1.73m2 Critically low >=60 [facility] Comment on above: Performed By: #### C NERIS, CMADM #### [facility] [address] [place] [address] Dr. Rosangela Smyth EGFR-NON AF IRANIAN 48 mL/min/1.73m2 Critically low >=60 [facility] Comment on above: Performed By: #### C NERIS, YULIANADM #### [facility] [address] [address] [address] Rosangela Smyth Globulin (S) [Mass/Vol] 3.6 g/dL Normal [facility] Comment on above: Performed By: #### C NERIS, CMADM #### [facility] [address] [address] [address] Rosangela Smyth Glucose [Mass/Vol] 174 mg/dL Critically high 74-106 [facility] Comment on above: Performed By: #### C NERIS, YULIANADM #### [facility] [address] [place] [address] Dr. Rosangela Smyth Potassium [Moles/Vol] 4.6 mmol/L Normal 3.5-5.1 [facility] Comment on above: Performed By: #### C NERIS, YULIANADM #### [facility] [address] [place] [address] Dr. Rosangela Smyth Protein [Mass/Vol] 7.4 g/dL Normal 6.4-8.2 [facility] Comment on above: Performed By: #### C NERIS, YULIANADM #### [facility] [address] [place] [address] Dr. Rosangela Smyth Sodium [Moles/Vol] 133 mmol/L Critically low 136-145 [facility] Comment on above: Performed By: #### C NERIS, YULIANADM #### [facility] [address] [place] [address] Dr. Rosangela Smyth Urea nitrogen [Mass/Vol] 14.0 mg/dL Normal 7.0-18.0 [facility] Comment on above: Performed By: #### C NERIS, YULIANADM #### [facility] [address] [place] [address] Dr. Rosangela Smyth Urea nitrogen/Creatinine [Mass ratio] 12.2 mg/mg Normal [facility] Comment on above: Performed By: #### C NERIS, VIRAL #### [facility] [address] [place], [place] [address] Dr. Rosangela Smyth STREPT SCREENon 09-12-2022 STREP SCREEN A Negative Normal NEGATIVE [facility] Comment on above: Performed By: #### L ACT #### [facility] [address] [place], [place] [address] Dr. Rosangela Smyth XR CHEST 1 Von [...] by: LINNETTE AVENDANO Date: 2022-09-12 13:23 Normal [facility] Progress Noteson 09-03-2022 Hiv Counselor Authentication Interface Message Text EMERGENCY TRIAGE, TREAT AND TRANSPORT (ET3) DOCUMENTATION OF TELEHEALTH VISIT Date / Time: 03/18/2022 / 15:00 Name: Kaya Schilling : 1965 SSN: (Not on file) EMS Agency: [facility] [x] Verbal consent obtained [] [...] were called because she called the local [facility] office and was upset EMS and [...] Completed by: Devon Hays MD Normal [facility] AMYLASEon 07-08-2022 Amylase [Catalytic activity/Vol] 49 U/L Normal 25-115 [facility] Comment on above: Performed By: #### C BC #### [facility] [address] [place] [address] Dr. Rosangela Smyth CBC AUTO DIFFon 07-08-2022 BASO # 0.0 103/ul Normal 0.0-0.1 [facility] Comment on above: Performed By: #### O BSCRN #### [facility] [address] [place] [address] Dr. Rosangela Smyth Basophils/100 WBC (Bld) 0.4 % Normal 0.2-2.0 [facility] Comment on above: Performed By: #### O BSCRN #### [facility] [address] [place] [address] Dr. Rosangela Smyth EO # 0.2 103/ul Normal 0.0-0.7 [facility] Comment on above: Performed By: #### O BSCRN #### [facility] [address] [place] [address] Dr. Rosangela Smyth Eosinophils/100 WBC (Bld) 4.4 % Normal 0.9-7.0 [facility] Comment on above: Performed By: #### O BSCRN #### [facility] [address] [place] [address] Dr. Rosangela Smyth Erythrocyte distribution width (RBC) [Ratio] 17.9 % Critically high 11.0-15.0 [facility] Comment on above: Performed By: #### O BSCRN #### [facility] [address] [place] [address] Dr. Rosangela Smyth Hematocrit (Bld) [Volume fraction] 30.4 % Critically low 36.0-48.0 [facility] Comment on above: Performed By: #### O BSCRN #### [facility] [address] [place] [address] Dr. Rosangela Smyth Hemoglobin (Bld) [Mass/Vol] 9.6 g/dL Critically low 12.0-16.0 [facility] Comment on above: Performed By: #### O BSCRN #### [facility] [address] [place] [address] Dr. Rosangela Smyth IG # 0.02 10e3/ul Normal 0.00-0.03 [facility] Comment on above: Performed By: #### O BSCRN #### [facility] [address] [place] [address] Dr. Rosangela Smyth IG % 0.4 % Normal 0.0-0.5 [facility] Comment on above: Performed By: #### O BSCRN #### [facility] [address] [place] [address] Dr. Rosangela Smyth LYMPH # 1.4 103/ul Normal 1.2-3.8 [facility] Comment on above: Performed By: #### O BSCRN #### [facility] [address] [place] [address] Dr. Rosangela Smyth Lymphocytes/100 WBC (Bld) 28.6 % Normal 20.5-60.0 [facility] Comment on above: Performed By: #### O BSCRN #### [facility] [address] [place] [address] Dr. Rosangela Smyth MANUAL DIFF REQ NO Normal [facility] Comment on above: Performed By: #### O BSCRN #### [facility] [address] [place] [address] Dr. Rosangela Smyth MCH (RBC) [Entitic mass] 30.8 pg Normal 26.7-34.0 [facility] Comment on above: Performed By: #### O BSCRN #### [facility] [address] [place] [address] Dr. Rosangela Smyth MCHC (RBC) [Mass/Vol] 31.6 g/dL Normal 29.9-35.2 [facility] Comment on above: Performed By: #### O BSCRN #### [facility] [address] [place] [address] Dr. Rosangela Smyth MCV (RBC) [Entitic vol] 97.4 fL Normal 81.0-99.0 [facility] Comment on above: Performed By: #### O BSCRN #### [facility] [address] [place] [address] Dr. Rosangela Smyth MONO # 0.3 103/ul Normal 0.3-0.8 [facility] Comment on above: Performed By: #### O BSCRN #### [facility] [address] [place] [address] Dr. Rosangela Smyth Monocytes/100 WBC (Bld) 6.6 % Normal 1.7-12.0 [facility] Comment on above: Performed By: #### O BSCRN #### [facility] [address] [place] [address] Dr. Rosangela Smyth NEUT # 3.0 103/ul Normal 1.4-6.5 [facility] Comment on above: Performed By: #### O BSCRN #### [facility] [address] [place] [address] Dr. Rosangela Smyth Neutrophils/100 WBC (Bld) 59.6 % Normal 43.0-75.0 [facility] Comment on above: Performed By: #### O BSCRN #### [facility] [address] [place] [address] Dr. Rosangela Smyth Platelet mean volume (Bld) [Entitic vol] 8.6 fL Critically low 9.5-13.5 [facility] Comment on above: Performed By: #### O BSCRN #### [facility] [address] [place] [address] Dr. Rosangela Smyth PLT 351 103/ul Normal 150-450 [facility] Comment on above: Performed By: #### O BSCRN #### [facility] [address] [place] [address] Dr. Rosangela Smyth RBC 3.12 106/ul Critically low 4.20-5.40 [facility] Comment on above: Performed By: #### O BSCRN #### [facility] [address] [place] [address] Dr. Rosangela Smyth WBC 5.0 103/ul Normal 4.0-11.0 [facility] Comment on above: Performed By: #### O BSCRN #### [facility] [address] [place] [address] Dr. Rosangela Smyth Covid-19 PCR ([facility])on SARS-CoV-2 (COVID-19) RNA RICH+probe Ql (Unsp spec) Not detected Normal NOT DETECTED [facility] Comment on above: Result Comment: When [...] for this test is supported by the Pest Control Worker of Health and Human Service's declaration that [...] Performed By: #### L IPID, CMP #### [facility] [address] [place] [address] Dr. Rosangela Smyth ER URINE PROFILEon 2 Bilirubin Ql (U) Negative Normal NEGATIVE [facility] [place] Comment on above: Performed By: #### L IPID, CMP #### [facility] [address] [place] [address] Dr. Rosangela Smyth Clarity (U) CLEAR Normal CLEAR [facility] Comment on above: Performed By: #### L IPID, CMP #### [facility] [address] [place] [address] Dr. Rosangela Smyth Color (U) LT. YELLOW Normal YELLOW [facility] Comment on above: Performed By: #### L IPID, CMP #### [facility] [address] [place] [address] Dr. Rosangela Smyth ERUAHD A micrscopic examination will be performed if indicated. Normal [facility] Comment on above: Performed By: #### L IPID, CMP #### [facility] [address] [place] [address] Dr. Rosanegla Smyth Glucose Ql (U) Negative Normal NEGATIVE [facility] Comment on above: Performed By: #### L IPID, CMP #### [facility] [address] [place] [address] Dr. Rosangela Smyth Hemoglobin Ql (U) Negative Normal NEGATIVE [facility] Comment on above: Performed By: #### L IPID, CMP #### [facility] [address] [place] [address] Dr. Rosangela Smyth Ketones Ql (U) Negative Normal NEGATIVE [facility] Comment on above: Performed By: #### L IPID, CMP #### [facility] [address] [place] [address] Dr. Rosangela Smyth LEUKOCYTES Negative Normal NEGATIVE [facility] Comment on above: Performed By: #### L IPID, CMP #### [facility] [address] [place] [address] Dr. Rosangela Smyth Nitrite Ql (U) Negative Normal NEGATIVE [facility] Comment on above: Performed By: #### L IPID, CMP #### [facility] [address] [place] [address] Dr. Rosangela Smyth pH (U) 6.0 [pH] Normal 5-9 [facility] Comment on above: Performed By: #### L IPID, CMP #### [facility] [address] [place] [address] Dr. Rosangela Smyth SPEC GRAVITY 1.010 Normal 1.005-<=1.02 5 [facility] Comment on above: Performed By: #### L IPID, CMP #### [facility] [address] [place] [address] Dr. Rosangela Smyth UA PROTEIN Negative Normal NEGATIVE/ TRACE [facility] Comment on above: Performed By: #### L IPID, CMP #### [facility] [address] [place] [address] Dr. Rosangela Smyth UR MICRO IND NOT INDICATED Normal [facility] Comment on above: Performed By: #### L IPID, CMP #### [facility] [address] [place] [address] Dr. Rosangela Smyth Urobilinogen Qn (U) 0.2 {Estevan'U}/dL Normal 0.2 - 1. 0 [facility] Comment on above: Performed By: #### L IPID, CMP #### [facility] [address] [place] [address] Dr. Rosangela Smyth LIPASEon 07-08-2022 Lipase [Catalytic activity/Vol] 89.0 U/L Normal 73.0-393.0 [facility] Comment on above: Performed By: #### L ACT #### [facility] [address] [place] [address] Dr. Rosangela Smyth PROF 14(COMP METB)on 022 Albumin [Mass/Vol] 3.9 g/dL Normal 3.4-5.0 [facility] Comment on above: Performed By: #### C BC #### [facility] [address] [place] [address] Dr. Rosangela Smyth Albumin/Globulin [Mass ratio] 1.1 {ratio} Normal [facility] Comment on above: Performed By: #### C BC #### [facility] [address] [place] [address] Dr. Rosangela Smyth ALP [Catalytic activity/Vol] 86 U/L Normal 46-116 [facility] Comment on above: Performed By: #### C BC #### [facility] [address] [place] [address] Dr. Rosangela Smyth ALT [Catalytic activity/Vol] 22 U/L Normal 14-59 [facility] Comment on above: Performed By: #### C BC #### [facility] [address] [place] [address] Dr. Rosangela Smyth Anion gap [Moles/Vol] 10.1 mmol/L Normal [facility] Comment on above: Performed By: #### C BC #### [facility] [address] [place] [address] Dr. Rosangela Smyth AST [Catalytic activity/Vol] 15 U/L Normal 15-37 [facility] Comment on above: Performed By: #### C BC #### [facility] [address] [place] [address] Dr. Rosangela Smyth Bilirubin [Mass/Vol] 0.3 mg/dL Normal 0.2-1.0 [facility] Comment on above: Performed By: #### C BC #### [facility] [address] [place] [address] Dr. Rosangela Smyth Calcium [Mass/Vol] 11.8 mg/dL Critically high 8.5-10.1 [facility] Comment on above: Performed By: #### C BC #### [facility] [address] [place] [address] Dr. Rosangela Smyth Chloride [Moles/Vol] 104 mmol/L Normal 98-107 [facility] Comment on above: Performed By: #### C BC #### [facility] [address] [place], [place] [id number] Dr. Rosangela Smyth CO2 [Moles/Vol] 28.4 mmol/L Normal 21.0-32.0 [facility] [place] Comment on above: Performed By: #### C BC #### [facility] [address] [place] [address] Dr. Rosangela Smyth Creatinine [Mass/Vol] 0.84 mg/dL Normal 0.55-1.02 [facility] Comment on above: Performed By: #### C BC #### [facility] [address] [place] [address] Dr. Rosangela Smyth EGFR-AF IRANIAN >60 Normal >=60 [facility] [place] Comment on above: Performed By: #### C BC #### [facility] [address] [place] [address] Dr. Rosangela Smyth EGFR-NON AF IRANIAN >60 Normal >=60 [facility] Comment on above: Performed By: #### C BC #### [facility] [address] [place] [address] Dr. Rosangela Smyth Globulin (S) [Mass/Vol] 3.7 g/dL Normal [facility] Comment on above: Performed By: #### C BC #### [facility] [address] [place] [address] Dr. Rosangela Smyth Glucose [Mass/Vol] 82 mg/dL Normal 74-106 [facility] Comment on above: Performed By: #### C BC #### [facility] [address] [place] [address] Dr. Rosangela Smyth Potassium [Moles/Vol] 4.5 mmol/L Normal 3.5-5.1 [facility] Comment on above: Performed By: #### C BC #### [facility] [address] [place] [address] Dr. Rosangela Smyth Protein [Mass/Vol] 7.6 g/dL Normal 6.4-8.2 [facility] Comment on above: Performed By: #### C BC #### [facility] [address] [place] [address] Dr. Rosangela Smyth Sodium [Moles/Vol] 138 mmol/L Normal 136-145 [facility] Comment on above: Performed By: #### C BC #### [facility] [address] [address] [address] Rosangela Smyth Urea nitrogen [Mass/Vol] 10.0 mg/dL Normal 7.0-18.0 [facility] Comment on above: Performed By: #### C BC #### [facility] [address] [id number] Rosangela Smyth Urea nitrogen/Creatinine [Mass ratio] 11.9 mg/mg Normal [facility] Comment on above: Performed By: #### C BC #### [facility] [address] [address] [address] Rosangela Smyth TROPONIN, HIGH SENSITIVITYon 07-08-2022 HSTROP 7.7 pg/mL Normal 4.0-51.3 [facility] Comment on above: Result Comment: CUT- OFF POINTS HAVE BEEN ESTABLISHED BASED ON THE FOURTH UNIVERSAL DEFINITIONS OF MYOCARDIAL INFARCTION. THE UPPER REFERENCE LIMIT (URL) OF TROPONIN, DEFINED THE 99TH PERCENTILE OF cTnI DISTRIBUTION IN A REFERENCE POPULATION, HAS BEEN CONFIRMED THE DECISION THRESHOLD FOR VT DIAGNOSIS. Performed By: #### L ACT #### [facility] [address] [address] [address] Rosangela Smyth CBC W Auto Differential pane l (Bld)on 05-22-2022 Abs Immature Gran <0.10 k/uL [facility] Basophils (Bld) [#/Vol] 0.03 10*3/uL <0.11 k/uL [facility] Basophils/100 WBC (Bld) 0.5 % [facility] Differential cell count method Nom (Bld) Auto [facility] Eosinophils (Bld) [#/Vol] 0.26 10*3/uL <0.46 k/uL [facility] Eosinophils/100 WBC (Bld) 4.5 % [facility] Erythrocyte distribution width (RBC) [Ratio] 18.1 % High 11.5 - 15.0 % [facility] Hematocrit (Bld) [Volume fraction] 30.1 % Low 36.0 - 46.0 % [facility] Hemoglobin (Bld) [Mass/Vol] 9.3 g/dL Low 11.5 - 15.5 g/dL [facility] Immature Gran % 0.2 % [facility] Lymphocytes (Bld) [#/Vol] 1.40 10*3/uL 1.00 - 4.00 k/uL [facility] Lymphocytes/100 WBC (Bld) 24.1 % [facility] MCH (RBC) [Entitic mass] 29.5 pg 26.0 - 34.0 pg [facility] MCHC (RBC) [Mass/Vol] 30.9 g/dL 30.5 - 36.0 g/dL [facility] MCV (RBC) [Entitic vol] 95.6 fL 80.0 - 100.0 fL [facility] Monocytes (Bld) [#/Vol] 0.36 10*3/uL <0.87 k/uL [facility] Monocytes/100 WBC (Bld) 6.2 % [facility] Neutrophils (Bld) [#/Vol] 3.76 10*3/uL 1.45 - 7.50 k/uL [facility] Neutrophils/100 WBC (Bld) 64.5 % [facility] Nucleated RBC (Bld) [#/Vol] <0.01 k/uL [facility] Nucleated RBC/100 WBC (Bld) [Ratio] 0.0 /100 WBC [facility] Platelet mean volume (Bld) [Entitic vol] 8.6 fL Low 9.0 - 12.7 fL [facility] Platelets (Bld) [#/Vol] 335 10*3/uL 150 - 400 k/uL [facility] RBC (Bld) [#/Vol] 3.15 10*6/uL Low 3.90 - 5.2 0 m/uL [facility] WBC (Bld) [#/Vol] 5.82 10*3/uL 3.70 - 11. 00 k/uL [facility] LD LACTATE DEHYDROon 022 LDH [Catalytic activity/Vol] 149 U/L 135 - 214 U/L [facility] RETIC COUNTon 05-22-2022 Reticulocytes (Bld) [#/Vol] 0.82961 10*3/uL 0.018 - 0.100 M/uL [facility] Reticulocytes (Bld) [#/Vol]o n 05-22-2022 Reticulocytes/100 RBC (Bld) 1.9 % 0.4 - 2.0 % [facility] LITHIUMon 05-20-2022 [place] (Eskalith(R)), Serum 0.9 mmol/L Normal 0.5-1.2 [facility] Comment on above: Result Comment: Plas ma concentration of 0.5 - 0.8 mmol/L are advised for long-term use; concentrations of up to 1.2 mmol/L may be necessary during acute treatment. Detection Limit = 0.1 <0.1 indicates None Detected Performed By: #### L ACT #### [facility] [address] [place] [address] Dr. Rosangela Smyth CREATININEon 05-19-2022 Creatinine [Mass/Vol] 0.84 mg/dL Normal 0.55-1.02 [facility] Comment on above: Performed By: #### O BSCRN #### [facility] [address] [place] [address] Dr. Rosangela Smyth EGFR-AF IRANIAN >60 Normal >=60 [facility] Comment on above: Performed By: #### O BSCRN #### [facility] [address] [place] [address] Dr. Rosangela Smyth EGFR-NON AF IRANIAN >60 Normal >=60 [facility] Comment on above: Performed By: #### O BSCRN #### [facility] [address] [place] [address] Dr. Rosangela Smyth TSHon 05-19-2022 TSH 2.337 uIU/mL Normal 0.358-3.740 [facility] Comment on above: Performed By: #### O BSCRN #### [facility] [address] [place] [address] Dr. Rosangela Smyth CBC AUTO DIFFon 05-16-2022 BASO # 0.0 103/ul Normal 0.0-0.1 [facility] Comment on above: Performed By: #### L IPID, CMP #### [facility] [address] [place] [address] Dr. Rosangela Smyth Basophils/100 WBC (Bld) 0.4 % Normal 0.2-2.0 [facility] Comment on above: Performed By: #### L IPID, CMP #### [facility] [address] [place] [address] Dr. Rosangela Smyth EO # 0.3 103/ul Normal 0.0-0.7 [facility] Comment on above: Performed By: #### L IPID, CMP #### [facility] [address] [place] [address] Dr. Rosangela Smyth Eosinophils/100 WBC (Bld) 5.3 % Normal 0.9-7.0 [facility] Comment on above: Performed By: #### L IPID, CMP #### [facility] [address] [place] [address] Dr. Rosangela Smyth Erythrocyte distribution width (RBC) [Ratio] 18.5 % Critically high 11.0-15.0 [facility] Comment on above: Performed By: #### L IPID, CMP #### [facility] [address] [place] [address] Dr. Rosangela Smyth Hematocrit (Bld) [Volume fraction] 30.9 % Critically low 36.0-48.0 [facility] Comment on above: Performed By: #### L IPID, CMP #### [facility] [address] [place] [address] Dr. Rosangela Smyth Hemoglobin (Bld) [Mass/Vol] 9.7 g/dL Critically low 12.0-16.0 [facility] Comment on above: Performed By: #### L IPID, CMP #### [facility] [address] [place] [address] Dr. Rosangela Smyth IG # 0.01 10e3/ul Normal 0.00-0.03 [facility] Comment on above: Performed By: #### L IPID, CMP #### [facility] [address] [place] [address] Dr. Rosangela Smyth IG % 0.2 % Normal 0.0-0.5 [facility] Comment on above: Performed By: #### L IPID, CMP #### [facility] [address] [place] [address] Dr. Rosangela Smyth LYMPH # 1.7 103/ul Normal 1.2-3.8 [facility] Comment on above: Performed By: #### L IPID, CMP #### [facility] [address] [place] [address] Dr. Rosangela Smyth Lymphocytes/100 WBC (Bld) 31.6 % Normal 20.5-60.0 [facility] Comment on above: Performed By: #### L IPID, CMP #### [facility] [address] [place] [address] Dr. Rosangela Smyth MANUAL DIFF REQ NO Normal [facility] Comment on above: Performed By: #### L IPID, CMP #### [facility] [address] [place] [address] Dr. Rosangela Smyth MCH (RBC) [Entitic mass] 30.1 pg Normal 26.7-34.0 [facility] Comment on above: Performed By: #### L IPID, CMP #### [facility] [address] [place] [address] Dr. Rosangela Smyth MCHC (RBC) [Mass/Vol] 31.4 g/dL Normal 29.9-35.2 [facility] Comment on above: Performed By: #### L IPID, CMP #### [facility] [address] [place] [address] Dr. Rosangela Smyth MCV (RBC) [Entitic vol] 96.0 fL Normal 81.0-99.0 [facility] Comment on above: Performed By: #### L IPID, CMP #### [facility] [address] [place] [address] Dr. Rosangela Smyth MONO # 0.5 103/ul Normal 0.3-0.8 [facility] Comment on above: Performed By: #### L IPID, CMP #### [facility] [address] [place] [address] Dr. Rosangela Smyth Monocytes/100 WBC (Bld) 8.7 % Normal 1.7-12.0 [facility] Comment on above: Performed By: #### L IPID, CMP #### [facility] [address] [place] [address] Dr. Rosangela Smyth NEUT # 3.0 103/ul Normal 1.4-6.5 [facility] Comment on above: Performed By: #### L IPID, CMP #### [facility] [address] [place] [address] Dr. Rosangela Smyth Neutrophils/100 WBC (Bld) 53.8 % Normal 43.0-75.0 [facility] Comment on above: Performed By: #### L IPID, CMP #### [facility] [address] [place] [address] Dr. Rosangela Smyth Platelet mean volume (Bld) [Entitic vol] 8.2 fL Critically low 9.5-13.5 [facility] Comment on above: Performed By: #### L IPID, CMP #### [facility] [address] [place] [address] Dr. Rosangela Smyth PLT 361 103/ul Normal 150-450 [facility] Comment on above: Performed By: #### L IPID, CMP #### [facility] [address] [place] [address] Dr. Rosangela Smyth RBC 3.22 106/ul Critically low 4.20-5.40 [facility] Comment on above: Performed By: #### L IPID, CMP #### [facility] [address] [place] [address] Dr. Rosangela Smyth WBC 5.5 103/ul Normal 4.0-11.0 [facility] Comment on above: Performed By: #### L IPID, CMP #### [facility] [address] [place] [address] Dr. Rosangela Smyth OCC BLD IMMUNO SCREENon 05-07 OCCULT BLOOD Negative Normal NEGATIVE [facility] Comment on above: Performed By: #### O BSCRN #### [facility] [address] [place] [address] Dr. Rosangela Smyth PROF CHEM 8 (BAS METB)on Anion gap [Moles/Vol] 13.7 mmol/L Normal [facility] Comment on above: Performed By: #### O BSCRN #### [facility] [address] [address] [address] Rosangela Smyth Calcium [Mass/Vol] 11.2 mg/dL Critically high 8.5-10.1 [facility] Comment on above: Performed By: #### O BSCRN #### [facility] [address] [address] [address] Rosangela Smyth Chloride [Moles/Vol] 105 mmol/L Normal 98-107 [facility] Comment on above: Performed By: #### O BSCRN #### [facility] [address] [address] [address] Rosangela Smyth CO2 [Moles/Vol] 24.4 mmol/L Normal 21.0-32.0 [facility] Comment on above: Performed By: #### O BSCRN #### [facility] [address] [place] [address] Dr. Rosangela Smyth Creatinine [Mass/Vol] 0.95 mg/dL Normal 0.55-1.02 [facility] Comment on above: Performed By: #### O BSCRN #### [facility] [address] [address] [address] Rosangela Smyth EGFR-AF IRANIAN >60 Normal >=60 [facility] Comment on above: Performed By: #### O BSCRN #### [facility] [address] [place] [address] Dr. Rosangela Smyth EGFR-NON AF IRANIAN =60 Normal >=60 [facility] Comment on above: Performed By: #### O BSCRN #### [facility] [address] [address] [address] Rosangela Smyth Glucose [Mass/Vol] 91 mg/dL Normal 74-106 [facility] Comment on above: Performed By: #### O BSCRN #### [facility] [address] [address] [address] Rosangela Smyth Potassium [Moles/Vol] 4.1 mmol/L Normal 3.5-5.1 [facility] Comment on above: Performed By: #### O BSCRN #### [facility] [address] [place] [address] Dr. Rosangela Smyth Sodium [Moles/Vol] 139 mmol/L Normal 136-145 [facility] Comment on above: Performed By: #### O BSCRN #### [facility] [address] [place] [address] Dr. Rosangela Smyth Urea nitrogen [Mass/Vol] 11.0 mg/dL Normal 7.0-18.0 [facility] Comment on above: Performed By: #### O BSCRN #### [facility] [address] [place] [address] Dr. Rosangela Smyth Urea nitrogen/Creatinine [Mass ratio] 11.6 mg/mg Normal [facility] Comment on above: Performed By: #### O BSCRN #### [facility] [address] [place] [address] Dr. Rosangela Smyth CBC AUTO DIFFon 05-04-2022 BASO # 0.0 103/ul Normal 0.0-0.1 [facility] Comment on above: Performed By: #### L IPID, CMP #### [facility] [address] [place] [address] Dr. Rosangela Smyth Basophils/100 WBC (Bld) 0.4 % Normal 0.2-2.0 [facility] Comment on above: Performed By: #### L IPID, CMP #### [facility] [address] [place] [address] Dr. Rosangela Smyth EO # 0.4 103/ul Normal 0.0-0.7 [facility] Comment on above: Performed By: #### L IPID, CMP #### [facility] [address] [place] [address] Dr. Rosangela Smyth Eosinophils/100 WBC (Bld) 6.6 % Normal 0.9-7.0 [facility] Comment on above: Performed By: #### L IPID, CMP #### [facility] [address] [place] [address] Dr. Rosangela Smyth Erythrocyte distribution width (RBC) [Ratio] 19.3 % Critically high 11.0-15.0 [facility] Comment on above: Performed By: #### L IPID, CMP #### [facility] [address] [place] [address] Dr. Rosangela Smyth Hematocrit (Bld) [Volume fraction] 29.8 % Critically low 36.0-48.0 [facility] Comment on above: Performed By: #### L IPID, CMP #### [facility] [address] [place] [address] Dr. Rosangela Smyth Hemoglobin (Bld) [Mass/Vol] 9.3 g/dL Critically low 12.0-16.0 [facility] Comment on above: Performed By: #### L IPID, CMP #### [facility] [address] [place] [address] Dr. Rosangela Smyth IG # 0.01 10e3/ul Normal 0.00-0.03 [facility] Comment on above: Performed By: #### L IPID, CMP #### [facility] [address] [place] [address] Dr. Rosangela Smyth IG % 0.2 % Normal 0.0-0.5 [facility] Comment on above: Performed By: #### L IPID, CMP #### [facility] [address] [place] [address] Dr. Rosangela Smyth LYMPH # 1.3 103/ul Normal 1.2-3.8 [facility] Comment on above: Performed By: #### L IPID, CMP #### [facility] [address] [place] [address] Dr. Rosangela Smyth Lymphocytes/100 WBC (Bld) 23.5 % Normal 20.5-60.0 [facility] Comment on above: Performed By: #### L IPID, CMP #### [facility] [address] [place] [address] Dr. Rosangela Smyth MANUAL DIFF REQ NO Normal [facility] Comment on above: Performed By: #### L IPID, CMP #### [facility] [address] [place] [address] Dr. Rosangela Smyth MCH (RBC) [Entitic mass] 29.3 pg Normal 26.7-34.0 [facility] Comment on above: Performed By: #### L IPID, CMP #### [facility] [address] [place] [address] Dr. Rosangela Smyth MCHC (RBC) [Mass/Vol] 31.2 g/dL Normal 29.9-35.2 [facility] Comment on above: Performed By: #### L IPID, CMP #### [facility] [address] [place] [address] Dr. Rosangela Smyth MCV (RBC) [Entitic vol] 94.0 fL Normal 81.0-99.0 [facility] Comment on above: Performed By: #### L IPID, CMP #### [facility] [address] [place] [address] Dr. Rosangela Smyth MONO # 0.4 103/ul Normal 0.3-0.8 [facility] Comment on above: Performed By: #### L IPID, CMP #### [facility] [address] [place] [address] Dr. Rosangela Smyth Monocytes/100 WBC (Bld) 6.6 % Normal 1.7-12.0 [facility] Comment on above: Performed By: #### L IPID, CMP #### [facility] [address] [place] [address] Dr. Rosangela Smyth NEUT # 3.5 103/ul Normal 1.4-6.5 [facility] Comment on above: Performed By: #### L IPID, CMP #### [facility] [address] [place] [address] Dr. Rosangela Smyth Neutrophils/100 WBC (Bld) 62.7 % Normal 43.0-75.0 [facility] Comment on above: Performed By: #### L IPID, CMP #### [facility] [address] [place] [address] Dr. Rosangela Smyth Platelet mean volume (Bld) [Entitic vol] 8.2 fL Critically low 9.5-13.5 [facility] Comment on above: Performed By: #### L IPID, CMP #### [facility] [address] [place] [address] Dr. Rosangela Smyth PLT 337 103/ul Normal 150-450 [facility] Comment on above: Performed By: #### L IPID, CMP #### [facility] [address] [address] [address] Rosangela Smyth RBC 3.17 106/ul Critically low 4.20-5.40 [facility] Comment on above: Performed By: #### L IPID, CMP #### [facility] [address] [address] [address] Rosangela Smyth WBC 5.6 103/ul Normal 4.0-11.0 [facility] Comment on above: Performed By: #### L IPID, CMP #### [facility] [address] [address] [address] Rosangela Smyth TSHon 05-04-2022 TSH 1.227 uIU/mL Normal 0.358-3.740 [facility] Comment on above: Performed By: #### L IPID, CMP #### [facility] [address] [address] [address] Rosangela Smyth GLYCOHEMOGLOBIN A1Con 2021 ADA RECOMMENDATION SEE BELOW Normal [facility] Comment on above: Result Comment: ADA RECOMMENDED LIMIT 4.0 - 6.0 ADA THERAPEUTIC TARGET < 7.0 ACTION SUGGESTED > 7.0 Performed By: #### L IPID, CMP #### [facility] [address] [address] [address] Rosangela Smyth Glucose [Mass/Vol] 154 mg/dL Normal [facility] Comment on above: Performed By: #### L IPID, CMP #### [facility] [address] [address] [address] Rosangela Smyth HbA1c (Bld) [Mass fraction] 7.0 % Critically high 4.5-6.2 [facility] Comment on above: Performed By: #### L IPID, CMP #### [facility] [address] [address] [address] Rosangela Smyth LIPID PROFILEon 04-03-2022 CHOL-HDL RATIO NORM SEE BELOW Normal [facility] Comment on above: Result Comment: 3.3 - 4.4 LOW RISK 4.4 - 7.1 AVERAGE RISK 7.1 - 11.0 MODERATE RISK >11.0 HIGH RISK Performed By: #### L IPID, CMP #### [facility] [address] [address] [address] Rosangela Smyth Cholesterol [Mass/Vol] 147 mg/dL Normal <=200 [facility] Comment on above: Performed By: #### L IPID, CMP #### [facility] [address] [address] [address] Rosangela Smyth Cholesterol in HDL [Mass/Vol] 64 mg/dL Critically high 40-60 [facility] Comment on above: Performed By: #### L IPID, CMP #### [facility] [address] [place] [address] Dr. Rosangela Smyth Cholesterol in LDL [Mass/Vol] 70.8 mg/dL Normal [facility] Comment on above: Performed By: #### L IPID, CMP #### [facility] [address] [address] [address] Rosangela Smyth Cholesterol.total/C holesterol in HDL [Mass ratio] 2.3 {ratio} Normal [facility] Comment on above: Performed By: #### L IPID, CMP #### [facility] [address] [place] [address] Dr. Rosangela Smyth HDL NORMAL > or = 60 mg/dl - LO W CARDIOVASCULAR RISK <40 mg/dl - HIGH CARDIOVASCULAR RISK Normal [facility] Comment on above: Performed By: #### L IPID, CMP #### [facility] [address] [address] [address] Rosangela Smyth LDL CALC NORMAL SEE BELOW Normal [facility] Comment on above: Result Comment: <100 mg/dl OPTIMAL 100 - 129 mg/dl NEAR OR ABOVE OPTIMAL 130 - 159 mg/dl BORDERLINE HIGH 160 - 189 mg/dl HIGH >190 mg/dl VERY HIGH Performed By: #### L IPID, CMP #### [facility] [address] [address] [address] Rosangela Smyth Triglyceride [Mass/Vol] 61 mg/dL Normal <=150 [facility] Comment on above: Performed By: #### L IPID, CMP #### [facility] [address] [address] [address] Rosangela Smyht VLDL CALC 12.2 mg/dL Normal [facility] Comment on above: Performed By: #### L IPID, CMP #### [facility] [address] [address] [address] Rosangela Smyth PROF 14(COMP METB)on 022 Albumin [Mass/Vol] 3.7 g/dL Normal 3.4-5.0 [facility] Comment on above: Performed By: #### L IPID, CMP #### [facility] [address] [place] [address] Dr. Rosnagela Smyth Albumin/Globulin [Mass ratio] 1.1 {ratio} Normal [facility] Comment on above: Performed By: #### L IPID, CMP #### [facility] [address] [place] [address] Dr. Rosangela Smyth ALP [Catalytic activity/Vol] 92 U/L Normal 46-116 [facility] Comment on above: Performed By: #### L IPID, CMP #### [facility] [address] [place] [address] Dr. Rosangela Smyth ALT [Catalytic activity/Vol] 25 U/L Normal 14-59 [facility] Comment on above: Performed By: #### L IPID, CMP #### [facility] [address] [address] [address] Rosangela Smyth Anion gap [Moles/Vol] 11.8 mmol/L Normal [facility] Comment on above: Performed By: #### L IPID, CMP #### [facility] [address] [place] [address] Dr. Rosangela Smyth AST [Catalytic activity/Vol] 11 U/L Critically low 15-37 [facility] Comment on above: Performed By: #### L IPID, CMP #### [facility] [address] [place] [address] Dr. Rosangela Smyth Bilirubin [Mass/Vol] 0.2 mg/dL Normal 0.2-1.0 [facility] Comment on above: Performed By: #### L IPID, CMP #### [facility] [address] [place] [address] Dr. Rosangela Smyth Calcium [Mass/Vol] 10.6 mg/dL Critically high 8.5-10.1 [facility] Comment on above: Performed By: #### L IPID, CMP #### [facility] [address] [place] [address] Dr. Rosangela Smyth Chloride [Moles/Vol] 105 mmol/L Normal 98-107 [facility] Comment on above: Performed By: #### L IPID, CMP #### [facility] [address] [place] [address] Dr. Rosangela Smyth CO2 [Moles/Vol] 25.9 mmol/L Normal 21.0-32.0 [facility] Comment on above: Performed By: #### L IPID, CMP #### [facility] [address] [place] [address] Dr. Rosangela Smyth Creatinine [Mass/Vol] 0.86 mg/dL Normal 0.55-1.02 [facility] Comment on above: Performed By: #### L IPID, CMP #### [facility] [address] [place] [address] Dr. Rosangela Smyth EGFR-AF IRANIAN >60 Normal >=60 [facility] Comment on above: Performed By: #### L IPID, CMP #### [facility] [address] [place] [address] Dr. Rosangela Smyth EGFR-NON AF IRANIAN >60 Normal >=60 [facility] Comment on above: Performed By: #### L IPID, CMP #### [facility] [address] [place] [address] Dr. Rosangela Smyth Globulin (S) [Mass/Vol] 3.5 g/dL Normal [facility] Comment on above: Performed By: #### L IPID, CMP #### [facility] [address] [place] [address] Dr. Rosangela Smyth Glucose [Mass/Vol] 197 mg/dL Critically high 74-106 [facility] Comment on above: Performed By: #### L IPID, CMP #### [facility] [address] [place] [address] Dr. Rosangela Smyth Potassium [Moles/Vol] 4.7 mmol/L Normal 3.5-5.1 [facility] Comment on above: Performed By: #### L IPID, CMP #### [facility] [address] [place] [address] Dr. Rosangela Smyth Protein [Mass/Vol] 7.2 g/dL Normal 6.4-8.2 [facility] Comment on above: Performed By: #### L IPID, CMP #### [facility] [address] [place] [address] Dr. Rosangela Smyth Sodium [Moles/Vol] 138 mmol/L Normal 136-145 [facility] Comment on above: Performed By: #### L IPID, CMP #### [facility] [address] [place] [address] Dr. Rosangela Smyth Urea nitrogen [Mass/Vol] 16.0 mg/dL Normal 7.0-18.0 [facility] Comment on above: Performed By: #### L IPID, CMP #### [facility] [address] [place] [address] Dr. Rosangela Smyth Urea nitrogen/Creatinine [Mass ratio] 18.6 mg/mg Normal [facility] Comment on above: Performed By: #### L IPID, CMP #### [facility] [address] [place] [address] Dr. Rosangela Smyth GLYCOHEMOGLOBIN A1Con 2021 ADA RECOMMENDATION SEE BELOW Normal [facility] Comment on above: Result Comment: ADA RECOMMENDED LIMIT 4.0 - 6.0 ADA THERAPEUTIC TARGET < 7.0 ACTION SUGGESTED > 7.0 Performed By: #### L IPID, CMP #### [facility] [address] [place] [address] Dr. Rosangela Smyth Glucose [Mass/Vol] 134 mg/dL Normal [facility] Comment on above: Performed By: #### L IPID, CMP #### [facility] [address] [address] [address] Rosangela Smyth HbA1c (Bld) [Mass fraction] 6.3 % Critically high 4.5-6.2 [facility] Comment on above: Performed By: #### L IPID, CMP #### [facility] [address] [place] [address] Dr. Rosangela Smyth LIPID PROFILEon 01-31-2022 CHOL-HDL RATIO NORM SEE BELOW Normal [facility] Comment on above: Result Comment: 3.3 - 4.4 LOW RISK 4.4 - 7.1 AVERAGE RISK 7.1 - 11.0 MODERATE RISK >11.0 HIGH RISK Performed By: #### L ACT #### [facility] [address] [place] [address] Dr. Rosangela Smyth Cholesterol [Mass/Vol] 134 mg/dL Normal <=200 [facility] Comment on above: Performed By: #### L ACT #### [facility] [address] [place] [address] Dr. Rosangela Smyth Cholesterol in HDL [Mass/Vol] 68 mg/dL Critically high 40-60 [facility] Comment on above: Performed By: #### L ACT #### [facility] [address] [place] [address] Dr. Rosangela Smyth Cholesterol in LDL [Mass/Vol] 55.0 mg/dL Normal [facility] Comment on above: Performed By: #### L ACT #### [facility] [address] [place] [address] Dr. Rosangela Smyth Cholesterol.total/C holesterol in HDL [Mass ratio] 2.0 {ratio} Normal [facility] Comment on above: Performed By: #### L ACT #### [facility] [address] [place] [address] Dr. Rosangela Smyth HDL NORMAL > or = 60 mg/dl - LO W CARDIOVASCULAR RISK <40 mg/dl - HIGH CARDIOVASCULAR RISK Normal [facility] Comment on above: Performed By: #### L ACT #### [facility] [address] [place] [address] Dr. Rosangela Smyth LDL CALC NORMAL SEE BELOW Normal [facility] Comment on above: Result Comment: <100 mg/dl OPTIMAL 100 - 129 mg/dl NEAR OR ABOVE OPTIMAL 130 - 159 mg/dl BORDERLINE HIGH 160 - 189 mg/dl HIGH >190 mg/dl VERY HIGH Performed By: #### L ACT #### [facility] [address] [address] [address] Rosangela Smyth Triglyceride [Mass/Vol] 55 mg/dL Normal <=150 [facility] Comment on above: Performed By: #### L ACT #### [facility] [address] [address] [address] Rosangela Smyth VLDL CALC 11.0 mg/dL Normal [facility] Comment on above: Performed By: #### L ACT #### [facility] [address] [place] [address] Dr. Rosangela Smyth PROF 14(COMP METB)on 022 Albumin [Mass/Vol] 4.0 g/dL Normal 3.4-5.0 [facility] Comment on above: Performed By: #### L ACT #### [facility] [address] [address] [address] Rosangela Smyth Albumin/Globulin [Mass ratio] 1.0 {ratio} Normal [facility] Comment on above: Performed By: #### L ACT #### [facility] [address] [address] [address] Rosangela Smyth ALP [Catalytic activity/Vol] 105 U/L Normal 46-116 [facility] Comment on above: Performed By: #### L ACT #### [facility] [address] [address] [address] Rosangela Smyth ALT [Catalytic activity/Vol] 30 U/L Normal 14-59 [facility] Comment on above: Performed By: #### L ACT #### [facility] [address] [address] [address] Rosangela Smyth Anion gap [Moles/Vol] 10.7 mmol/L Normal [facility] Comment on above: Performed By: #### L ACT #### [facility] [address] [address] [address] Rosangela Smyth AST [Catalytic activity/Vol] 14 U/L Critically low 15-37 [facility] Comment on above: Performed By: #### L ACT #### [facility] [address] [address] [address] Rosangela Smyth Bilirubin [Mass/Vol] 0.2 mg/dL Normal 0.2-1.0 [facility] Comment on above: Performed By: #### L ACT #### [facility] [address] [address] [address] Rosangela Smyth Calcium [Mass/Vol] 11.1 mg/dL Critically high 8.5-10.1 T [facility] Comment on above: Performed By: #### L ACT #### [facility] [address] [place] [address] Dr. Rosangela Smyth Chloride [Moles/Vol] 104 mmol/L Normal 98-107 [facility] Comment on above: Performed By: #### L ACT #### [facility] [address] [address] [address] Rosangela Smyth CO2 [Moles/Vol] 26.8 mmol/L Normal 21.0-32.0 [facility] Comment on above: Performed By: #### L ACT #### [facility] [address] [place] [address] Dr. Rosangela Smyth Creatinine [Mass/Vol] 0.68 mg/dL Normal 0.55-1.02 [facility] Comment on above: Performed By: #### L ACT #### [facility] [address] [place] [address] Dr. Rosangela Smyth EGFR-AF IRANIAN >60 Normal >=60 [facility] Comment on above: Performed By: #### L ACT #### [facility] [address] [place] [address] Dr. Rosangela Smyth EGFR-NON AF IRANIAN >60 Normal >=60 [facility] Comment on above: Performed By: #### L ACT #### [facility] [address] [place] [address] Dr. Rosangela Smyth Globulin (S) [Mass/Vol] 4.0 g/dL Normal [facility] Comment on above: Performed By: #### L ACT #### [facility] [address] [address] [address] Rosangela Smyth Glucose [Mass/Vol] 142 mg/dL Critically high 74-106 [facility] Comment on above: Performed By: #### L ACT #### [facility] [address] [address] [address] Rosangela Smyth Potassium [Moles/Vol] 4.5 mmol/L Normal 3.5-5.1 [facility] Comment on above: Performed By: #### L ACT #### [facility] [address] [address] [address] Rosangela Smyth Protein [Mass/Vol] 8.0 g/dL Normal 6.4-8.2 [facility] Comment on above: Performed By: #### L ACT #### [facility] [address] [address] [address] Rosangela Smyth Sodium [Moles/Vol] 137 mmol/L Normal 136-145 [facility] Comment on above: Performed By: #### L ACT #### [facility] [address] [address] [address] Rosangela Smyth Urea nitrogen [Mass/Vol] 14.0 mg/dL Normal 7.0-18.0 [facility] Comment on above: Performed By: #### L ACT #### [facility] [address] [address] [address] Rosangela Smyth Urea nitrogen/Creatinine [Mass ratio] 20.6 mg/mg Normal [facility] Comment on above: Performed By: #### L ACT #### [facility] [address] [address] [address] Rosangela Smyth Gamma Glutamyl Transpeptidas anurag 07-23-2021 Gamma Glutamyl Transpeptidase 71 7 [employer] Other Ambulatory Clinical Summaryo n 02-26-2021 Ambulatory Clinical Summary {[id number]}CD:[id number] Normal [facility] Ambulatory Clinical Summaryo n 02-07-2021 Ambulatory Clinical Summary {[id number]}CD:[id number] Normal [facility] Ambulatory Clinical Summary {[id number]}CD:[id number] Normal [facility] Formson 02-07-2021 Forms [id number] D:[address] [facility] Historical Records Officeon 02-07-2021 Historical Records Office [id number] D:[address] [facility] Patient Educationon 02-08-20 Patient Education [...] nerve stimulation). ? For women, using a associate medical director to prevent urine leaks. This is a [...] after experiencing incontinence. General instructions ? Take xttq-ana-hfeslva and prescription medicines only as (more content not included)... Normal [facility] Urology Office/Clinic Noteon 02-07-2021 Urology [...] Will order Local anesthesia. ABX sent to [facility] in [place]. I have reviewed the previous health record information and history for this pt. from Dr. Cote. Follow-up With When Contact Information Chicho COTE MD, URL [address] [place] [address] [place] [address]- [phone] Additional Instructions: Patient Education Urinary Incontinence I, [...] 10:55:00) Nitrite (more content not included)... Normal [facility] Comment on above: Result Comment: Elec tronically Signed By: Chicho COTE MD\.br\Date and Time Signed: 02/07/21 11:47 EDT\.br\Electronically Co-Signed By: Vanesa Pruitt MA\.br\Date and Time Co-Signed: 02/07/21 11:[address] NECK SOFT TISSUE WO IVCON on 01-29-2021 [facility] Physician Referralon 020 Physician Referral [id number] D:[address] [facility] Vital Signs Date Time Vital Sign Value Performing Clinician Facility 04-14-2024 09:38-0400 Body temperature 97.7 [degF] Chair [employer] Work Phone: [facility] 04-14-2024 09:38-0400 Diastolic blood pressure 83 mm[Hg] Chair Nyack Work Phone: [facility] 04-14-2024 09:38-0400 Heart rate 90 /min Chair Nyack Work Phone: [facility] 04-14-2024 09:38-0400 Respiratory rate 18 /min Chair [employer] Work Phone: [facility] 04-14-2024 09:38-0400 SaO2% (BldA) [Mass fraction] 100 % Chair Julianna Work Phone: [facility] 04-14-2024 09:38-0400 Systolic blood pressure 156 mm[Hg] Chair Julianna Work Phone: [facility] 04-14-2024 08:38-0400 Body height 165.1 cm [employer] CLASS A REGIONAL TRUCK DRIVER.NURSE ORTHOPAEDIC Work Phone: [facility] 04-14-2024 08:38-0400 Body mass index (BMI) [Ratio] 19.22 kg/m2 Lillie Bundridge CLASS A REGIONAL TRUCK DRIVER.NURSE ORTHOPAEDIC Work Phone: [facility] 04-14-2024 08:38-0400 Body temperature 97.39 [degF] Lillie Bundridge CLASS A REGIONAL TRUCK DRIVER.NURSE ORTHOPAEDIC Work Phone: [facility] 04-14-2024 08:38-0400 Body weight 52.4 kg Lillie Bundridge CLASS A REGIONAL TRUCK DRIVER.NURSE ORTHOPAEDIC Work Phone: [facility] 04-14-2024 08:38-0400 Diastolic blood pressure 79 mm[Hg] Lillie Bundridge CLASS A REGIONAL TRUCK DRIVER.NURSE ORTHOPAEDIC Work Phone: [facility] 04-14-2024 08:38-0400 Heart rate 96 /min Lillie Bundridge CLASS A REGIONAL TRUCK DRIVER.NURSE ORTHOPAEDIC Work Phone: [facility] 04-14-2024 08:38-0400 Respiratory rate 16 /min Lillie Bundridge CLASS A REGIONAL TRUCK DRIVER.NURSE ORTHOPAEDIC Work Phone: [facility] 04-14-2024 08:38-0400 SaO2% (BldA) [Mass fraction] 100 % Lillie Bundridge CLASS A REGIONAL TRUCK DRIVER.NURSE ORTHOPAEDIC Work Phone: [facility] 04-14-2024 08:38-0400 Systolic blood pressure 149 mm[Hg] Lillie Bundridge CLASS A REGIONAL TRUCK DRIVER.NURSE ORTHOPAEDIC Work Phone: [facility] 04-07-2024 13:59-0400 Body temperature 98.4 [degF] Chair Julianna Work Phone: [facility] 04-07-2024 13:59-0400 Diastolic blood pressure 92 mm[Hg] Chair Julianna Work Phone: [facility] 04-07-2024 13:59-0400 Heart rate 85 /min Chair Julianna Work Phone: [facility] 04-07-2024 13:59-0400 Respiratory rate 16 /min Chair Julianna Work Phone: [facility] 04-07-2024 13:59-0400 SaO2% (BldA) [Mass fraction] 100 % Chair Nyack Work Phone: [facility] 04-07-2024 13:59-0400 Systolic blood pressure 161 mm[Hg] Chair Nyack Work Phone: [facility] 04-06-2024 15:12-0400 Body temperature 97.2 [degF] Ma Sand Work Phone: [facility] 04-06-2024 15:12-0400 Diastolic blood pressure 73 mm[Hg] Ma Sand Work Phone: [facility] 04-06-2024 15:12-0400 Heart rate 97 /min Ma Sand Work Phone: [facility] 04-06-2024 15:12-0400 Respiratory rate 20 /min Ma Sand Work Phone: [facility] 04-06-2024 15:12-0400 SaO2% (BldA) [Mass fraction] 100 % Ma Sand Work Phone: [facility] 04-06-2024 15:12-0400 Systolic blood pressure 169 mm[Hg] Ma Sand Work Phone: [facility] 03-23-2024 15:31-0400 Body mass index (BMI) [Ratio] 19.11 kg/m2 Beto Vivar MD Work Phone: [facility] 03-23-2024 15:31-0400 Body temperature 97.81 [degF] Beto Vivar MD Work Phone: [facility] 03-23-2024 15:31-0400 Body weight 52.1 kg Beto Vivar MD Work Phone: [facility] 03-23-2024 15:31-0400 Diastolic blood pressure 84 mm[Hg] Beto Vivar MD Work Phone: [facility] 03-23-2024 15:31-0400 Heart rate 79 /min Beto Vivar MD Work Phone: [facility] 03-23-2024 15:31-0400 Respiratory rate 16 /min Beto Vivar MD Work Phone: [facility] 03-23-2024 15:31-0400 SaO2% (BldA) [Mass fraction] 100 % Beto Vivar MD Work Phone: [facility] 03-23-2024 15:31-0400 Systolic blood pressure 172 mm[Hg] Beto Vivar MD Work Phone: [facility] 05-22-2022 11:23-0400 Body height 165.1 cm Ignacio Sam MD Work Phone: [facility] 05-22-2022 11:23-0400 Body temperature 97.59 [degF] Ignacio Sam MD Work Phone: [facility] 05-22-2022 11:23-0400 Body weight 71.22 kg Ignacio Sam MD Work Phone: [facility] 05-22-2022 11:23-0400 Diastolic blood pressure 80 mm[Hg] Ignacio Sam MD Work Phone: [facility] 05-22-2022 11:23-0400 Heart rate 95 /min Ignacio Sam MD Work Phone: [facility] 05-22-2022 11:23-0400 Respiratory rate 16 /min Ignacio Sam MD Work Phone: [facility] 05-22-2022 11:23-0400 SaO2% (BldA) [Mass fraction] 100 % Ignacio Sam MD Work Phone: [facility] 05-22-2022 11:23-0400 Systolic blood pressure 145 mm[Hg] Ignacio Sam MD Work Phone: [facility] 07-23-2021 11:45-0500 Body height 165.1 cm Neo Calhoun Other [employer] Other 07-23-2021 11:45-0500 Body mass index (BMI) [Ratio] 24.29 kg/m2 Neo Calhoun Other [employer] Other 07-23-2021 11:45-0500 Body weight 66.23 kg Neo Calhoun Other [employer] Other 06-02-2021 15:40-0400 Body height 165.1 cm Brynn Mg Other [employer] Other 06-02-2021 15:40-0400 Body mass index (BMI) [Ratio] 24.83 kg/m2 [employer] Other [employer] Other 06-02-2021 15:40-0400 Body temperature 96.9 [degF] [employer]nn Mg Other [employer] Other 06-02-2021 15:40-0400 Body weight 67.68 kg Brynn Mg Other [employer] Other 06-02-2021 15:40-0400 Diastolic blood pressure 80 mm[Hg] Brynn Mg Other [employer] Other 06-02-2021 15:40-0400 Respiratory rate 18 /min [employer]nn Mg Other [employer] Other 06-02-2021 15:40-0400 SaO2% (BldA) [Mass fraction] 99 % [employer]nn Mg Other [employer] Other 06-02-2021 15:40-0400 Systolic blood pressure 136 mm[Hg] [employer] Other [employer] Other Encounters Encounter Date Encounter Type Care Provider Facility Start: 04-14-2024 End: 04-14-2024 Patient encounter procedure Lillie Hughes APRN.NURSE ORTHOPAEDIC Work Phone: Palliative Medicine Comment on above: Palliative care by s pecialist (Primary Dx); 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); Cancer related pain; Post-traumatic osteoarthritis of multiple joints; Constipation due to opioid therapy; Opioid contract exists; Weight loss; Nausea; Anxiety with depression; Insomnia due to medical condition Start: 04-14-2024 End: 04-14-[address] Work Phone: Nutrition Therapy Start: 04-14-2024 End: 04-14-2024 Nutrition therapy Erendira Aguillon RD Work Phone: Nutrition Therapy Comment on above: Nutrition Telephone Start: 04-14-2024 End: 04-14-2024 ambulatory Chair 11 Julianna Work Phone: Hematology/Oncology Comment on above: 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); 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); Opioid contract exists; Iron deficiency anemia due to chronic blood loss Start: 04-12-2024 Telephone encounter Tena Broderick Hematology/Oncology Start: 04-10-2024 Telephone encounter Brea pozo RN Work Phone: Hematology/Oncology Comment on above: Care Coordination (T horacic Surgery Consult) Start: 04-10-2024 ambulatory Dajuan Whaley Facility:[facility] Start: 04-07-2024 Telephone encounter Kaila London RN Hematology/Oncology Comment on above: Patient Question; Iman jimenez Update Care Coordination (S can Results) Patient Question; Maryann re Coordinator - Other Start: 04-07-2024 End: 04-10-2024 ambulatory Chair 14 Julianna Work Phone: Hematology/Oncology Comment on above: 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); Iron deficiency anemia due to chronic blood loss Start: 04-06-2024 End: 04-06-2024 Nursing evaluation of patient and report Bre Ybarra Work Phone: Hematology/Oncology Comment on above: 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) Start: 04-06-2024 End: 04-06-2024 ambulatory BETO VIVAR Facility:[facility] Start: 04-06-2024 End: 04-06-2024 ambulatory BETO VIVAR Facility:[facility] Start: 04-04-2024 End: 04-04-2024 ambulatory BETO VIVAR [facility] Start: 04-03-2024 End: 04-03-[address] Work Phone: Nutrition Therapy Start: 04-03-2024 End: 04-03-2024 Nutrition therapy Erendira Aguillon RD Work Phone: Nutrition Therapy Comment on above: Nutrition Telephone Start: 03-30-2024 End: 03-30-2024 ambulatory Chair Camryn Welch Work Phone: Hematology/Oncology Comment on above: 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); Iron deficiency anemia due to chronic blood loss Start: 03-28-2024 End: 03-28-2024 ambulatory KOSTAS G [facility] Start: 03-28-2024 Telephone encounter Tena Broderick Hematology/Oncology Comment on above: Pain Start: 03-27-2024 Telephone encounter Jeanne reyes MD, PhD Work Phone: [facility] Comment on above: External Referrals/r esources Start: 03-24-2024 Telephone encounter Tena Broderick Hematology/Oncology Comment on above: Pain Start: 03-23-2024 End: 03-23-2024 Nursing evaluation of patient and report Ma Nurse Beltran Ybarra Work Phone: Hematology/Oncology Comment on above: [...] FISH Analysis) Start: 03-22-2024 End: 03-22-2024 ambulatory [facility] Start: 03-17-2024 Chart abstracting Beto kennedy MD Work Phone: Hematology/Oncology Start: 03-07-2024 End: 03-07-2024 ambulatory [facility] Start: 03-03-2024 End: 03-03-2024 Evaluation and management of inpatient MINE BENTON [facility] Start: 03-02-2024 End: 03-03-2024 Evaluation and management of inpatient [facility] Start: 02-24-2024 End: 02-24-2024 ambulatory [facility] Start: 02-21-2024 End: 02-21-2024 ambulatory [facility] Start: 02-18-2024 End: 02-18-2024 ambulatory [facility] Start: 02-16-2024 ambulatory [facility] Start: 02-02-2024 End: 02-02-2024 [facility] Start: 01-21-2024 End: 01-21-2024 ambulatory [facility] Start: 01-21-2024 End: 01-21-2024 ambulatory [facility] Start: 11-17-2023 End: 11-17-2023 Office outpatient visit 15 minutes Anna Marie Monge APRN-NURSE ORTHOPAEDIC Work Phone: [facility] Internal Medicine - Family Medicine Comment on above: Diarrhea of presumed infectious origin (Primary Dx); Weakness; Type 2 diabetes mellitus without complication, without long-term current use of insulin ([facility]); Hyperparathyroidism ([facility]) Start: 11-17-2023 End: 11-17-2023 ambulatory ANNA MARIE MONGE [facility] Start: 11-11-2023 Telephone encounter Con Gleason [facility] Internal [facility] - Family Medicine Start: 11-05-2023 Telephone encounter Con Gleason [facility] Internal Medicine - Family Medicine Start: 10-25-2023 [facility] Comment on above: Type 2 diabetes noe itus without complication, without long- term current use of insulin ([facility] Start: 10-24-2023 Refill Kostas Cano ng DO Work Phone: [facility] - [facility] Comment on above: Type 2 diabetes noe itus without complication, without long- term current use of insulin ([facility]) Start: 09-03-2023 Refill Kostas Cano ng DO Work Phone: [facility] - [facility] Comment on above: Acquired hypothyroid ism Start: 08-23-2023 End: 08-23-2023 ambulatory [facility] Start: 08-23-2023 End: 08-23-2023 ambulatory [facility] Start: 01-17-2023 End: 01-17-2023 [...] 07-15-2022 End: 07-15-2022 ambulatory Neo Calhoun Other [employer] Other Start: 07-15-2022 Telephone encounter Neo Nation [employer] [facility] Public [employer] Start: 07-08-2022 End: 07-08-[address] TEE KRAUSE . Facility:[facility] Start: 07-03-2022 Telephone encounter Ign[facility] hardwick MD [facility] Comment on above: Patient Update Start: 06-04-2022 Telephone encounter Ignacio hardwick MD [facility] Comment on above: Appointment Cancelle d Start: 05-29-2022 Telephone encounter Jackie Silverio COLD HEADER OPERATOR H ematology/Oncology Comment on above: Social [...] 05-22-2022 End: 05-22-2022 Patient encounter procedure Ignacio Sma MD Work Phone: [facility] Start: 05-21-2022 Chart abstracting Ignacio gee MD Work Phone: Hematology/Oncology Start: 05-19-2022 End: 05-20-[address] KOSTAS STEWARD Facility:[facility] Start: 05-16-2022 End: 05-16-2022 ambulatory FOX DUFF Facility:[facility] Start: 05-04-2022 End: 05-05-[address] KOSTAS STEWARD Facility:[facility] Start: 04-23-2022 End: 04-23-2022 ambulatory Neo Calhoun Other [employer] Other Start: 04-23-2022 Telephone encounter Neo powell [facility] Start: 04-03-2022 End: 04-04-[address] KOSTAS STEWARD Facility:[facility] Start: 01-31-2022 End: 02-01-[address] KOSTAS STEWARD Facility:[facility] Start: 01-02-2022 End: 01-02-2022 ambulatory Neo Calhoun Other [employer] Other Start: 01-02-2022 Telephone encounter Neo opwell [facility] Start: 08-18-2021 End: 08-18-2021 ambulatory Neo Calhoun Other [employer] Other Start: 08-18-2021 Telephone encounter Neo powell [facility] Start: 07-23-2021 End: 07-23-2021 ambulatory Neo Ashley Other [employer] Other Start: 07-23-2021 Office outpatient vi sit 25 minutes Neo Calhoun [facility] Start: 06-02-2021 Office outpatient ne w 45 minutes Brynn Holliday [facility] Start: 01-29-2021 End: 01-29-2021 Subsequent hospital visit by physician Ct Replaced By [facility] Radiology Comment on above: Disorder of airway [ J98.9] Procedures Date Procedure Procedure Detail Performing Clinician Start: 04-14-2024 Drug tst prsmv instr mnt chem analyzers pr date Lillie Hughes CLASS A REGIONAL TRUCK DRIVER.NURSE ORTHOPAEDIC Work Phone: Start: 03-02-2024 Colonoscopy Beto kennedy MD Work Phone: Start: 01-21-2024 Follow-up visit Follow-up KOSTAS STEWARD Start: 08-23-2023 Adult depression scr eening assessment Kostas Steward DO Work Phone: Start: 08-23-2023 Microalbumin [Mass/v olume] in Urine by Test strip Kostas Steward DO Work Phone: Start: 08-12-2023 Mammography Kostas echavarria DO Work Phone: Start: 04-01-2023 Diabetic retinal eye exam Kostas Steward DO Work Phone: Start: 01-29-2021 Ct soft tissue neck w/o contrast material Trev Shah MD Work Phone: Start: 01-29-2021 Ct thorax w/o contra st material Trev Shah MD Work Phone: Start: 04-06-2018 Colonoscopy Kostas echavarria DO Work Phone: Start: 06-04-2016 Adult depression scr eening assessment Ignacio Sam MD Work Phone: Plan of Treatment Date Care Activity Detail Author Start: 04-06-2028 Screening for malign ant neoplasm of colon Colonoscopy [facility] Start: 03-23-2027 Diabetes Scre[facility] Start: 01-20-2027 Diabetes Screening [facility] Start: 03-02-2025 Screening for malign ant neoplasm of colon [facility] Start: 08-23-2024 Adult BMI Screening Adult BMI Screen ing [facility] Start: 08-23-2024 Depression Screening Depression Scre ening [facility] Start: 08-23-2024 Tobacco Screening Tobacco Screening [facility] Start: 08-23-2024 Urine screening for protein Urine Microalbumin [facility] Start: 08-12-2024 Screening for malign ant neoplasm of breast [facility] Start: 05-12-2024 End: 05-12-2024 Patient encounter procedure 05/12/2024 9:30 AM EDT Office Visit Palliative Medicine [address] [place] [address] [place] [address] Lillie Hughes, CLASS A REGIONAL TRUCK DRIVER.NURSE ORTHOPAEDIC [address] [place] [address] 4 week follow up Palliative Medicine Comment on above: 4 week follow up Start: 05-07-2024 Influenza vaccination Influenza Vacc ine (#1) [facility] Start: 05-04-2024 End: 05-04-2024 Nutrition therapy 05/04/2024 10:00 AM EDT Education Nutrition Therapy [address] [place] [address] Erendira Aguillon, RD [address] [place] [address] phone f/u Nutrition Therapy Comment on above: phone f/u Start: 04-21-2024 End: 04-21-2024 ambulatory 04/21/2024 1:30 PM EDT Infusion Center Hematology/Oncology [address] [place] [address] IV Fe # 4 B 12 inj Hematology/Oncology Comment on above: IV Fe # 4 B 12 inj Start: 04-21-2024 End: 04-21-2024 Nursing evaluation of patient and report 04/21/2024 10:30 AM EDT Nurse Visit Hematology/Oncology [address] [place] [address] Bre Ybarra Nurse Beltran [address] [place] [address] B12 x monthly needs scheduled for more b-12 injection once [facility] gives follow up for [facility]-phone encounter Hematology/Oncology Comment on above: B12 x monthly nee ds scheduled for more b-12 injection once [facility] gives follow up for [facility]-phone encounter Start: 04-18-2024 End: 04-18-2024 Nursing evaluation of patient and report 04/18/2024 2:00 PM EDT Nurse Visit Hematology/Oncology [address] [place] [address] Bre Ybarra Nurse Beltran [address] [place] [address] B12 x monthly needs scheduled for more b-12 injection-monthly Hematology/Oncology Comment on above: B12 x monthly nee ds scheduled for more b-12 injection-monthly Start: 04-18-2024 End: 04-18-2024 ambulatory 04/18/2024 1:45 PM EDT Visit (SP) Office Hematology/Oncology [address] [place] [address] Beto Vivar MD [address] [place] [address] 04/12-This Date/Time Per [facility] Hematology/Oncology Comment on above: 04/12-This Date/Time P er TSmit Start: 04-18-2024 End: 04-18-2024 Patient encounter procedure 04/18/2024 1:30 PM EDT Office Visit [facility] [address] [place] [address] 04/12-This Date/Time Per [facility] Comment on above: 04/12-This Date/Time P er [facility] Start: 04-14-2024 End: 07-14-2024 PAIN PANEL, UR QUANT [facility] Work Phone: Comment on above: Expected: 04/14/2024 , Expires: 07/14/2024 Start: 04-14-2024 End: 07-14-2024 TOXICOLOGY SCREEN, ROUTINE URINE [facility] Comment on above: Expected: 04/14/2024 , Expires: 07/14/2024 Start: 04-14-2024 End: 04-14-2024 Nutrition therapy 04/14/2024 10:45 AM EDT Education Nutrition Therapy [address] [place] [address] [place] [address] phone f/u Nutrition Therapy Comment on above: phone f/u Start: 04-14-2024 End: 04-14-2024 ambulatory Hematology/Oncology Comment on above: IV Fe 04/12-sent staff brannon chapa to [facility] for 04/14 to let pt know about her b-12 being moved from 04/21 to 04/18 Start: 04-14-2024 End: 04-14-2024 Patient encounter procedure 04/14/2024 8:30 AM EDT Office Visit Palliative Medicine [address] [place] [address] Lillie Hughes, [employer].NURSE ORTHOPAEDIC [address] [place] [address] Pall Med appt Ref by Dr Beto Vivar Palliative Medicine Comment on above: Pall Med appt Ref by Dr Beto Vivar Start: 04-07-2024 End: 04-07-2024 ambulatory 04/07/2024 1:30 PM EDT Infusion Center Hematology/Oncology [address] [place] [address] IV Fe x 4 doeses Hematology/Oncology Comment on above: IV Fe x 4 doeses Start: 04-06-2024 End: 04-06-2024 Patient encounter procedure Radiology Pet CT Comment on above: Pet scan and CT CA w ith contrast CT CA with contrast CCN not approved Start: 04-01-2024 Glaucoma screening Diabetic Op hthalmology Exam [facility] Start: 03-30-2024 End: 03-30-2024 ambulatory Hematology/Oncology Comment on above: IV Fe next available IV Fe next available / 4 doses IV Fe next available / 3 doses per phone encounter Start: 03-23-2024 End: 03-23-2024 ambulatory 03/23/2024 4:00 PM EDT Visit (SP) Office Hematology/Oncology [address] [place] [address] [place] [address] Beto Vivar MD [address] [place] [address] Dx: Gastric Carcinoma Hematology/Oncology Comment on above: Dx: Gastric Carcinom a Start: 03-23-2024 End: 06-22-2024 CIRCULATING TUMOR DNA GENOMIC ANALYSIS FOR SOLID TUMORSRESTRICTED TO ONCOLOGY [facility] Comment on above: Expected: 03/23/2024 , Expires: 06/22/2024 Start: 03-23-2024 End: 06-22-2024 Ferritin [Mass/volume] in Serum or Plasma [facility] Comment on above: Expected: 03/23/2024 , Expires: 06/22/2024 Start: 03-23-2024 End: 06-22-2024 Iron and Iron binding capacity panel - Serum or Plasma [facility] Work Phone: Comment on above: Expected: 03/23/2024 , Expires: 06/22/2024 Start: 03-23-2024 End: 06-22-2024 T4/FTI/T4U [facility] Comment on above: Expected: 03/23/2024 , Expires: 06/22/2024 Start: 03-23-2024 End: 06-22-2024 Thyrotropin [Units/volume] in Serum or Plasma [facility] Comment on above: Expected: 03/23/2024 , Expires: 06/22/2024 Start: 03-15-2024 Diabetic foot examination Diabetic F oot Exam [facility] Start: 2024 RSV Vaccine (1 - 1-d ose 60+ series) RSV Vaccine (1 - 1-dose 60+ series) [facility] Start: 12-01-2023 End: 12-01-2023 Patient encounter procedure 12/01/2023 4:00 PM EDT Office Visit [facility] Internal Medicine - Family Medicine [address] [place] [address] Anna Marie Monge, [employer]-NURSE ORTHOPAEDIC [address] [place] [address] [facility] Internal Medicine - Family Medicine Start: 09-06-2023 Behavioral Health Screening Behavioral Health Screening [facility] Start: 05-07-2023 Covid-19 Vaccine ( season) Covid-19 Vaccine ( season) [facility] Start: 05-07-2023 Influenza vaccination [facility] Start: 11-11-2022 PNEUMOCOCCAL (2 - PCV) PNEUMOCOCCAL (2 - PCV) [facility] Start: 11-11-2022 Pneumococcal vaccination Pneum ococcal Vaccine (2 - PCV) [facility] Start: 09-06-2022 Depression Assessment Depression Ass essment [facility] Start: 06-19-2022 End: 08-19-2022 PROTEIN ELECTROPHORESIS SERUM W/INTERP PROTEIN ELECTROPHORESIS SERUM W/INTERP Lab Routine Anemia, normocytic normochromic Expected: 06/19/2022 (Approximate), Expires: 08/19/2022 [facility] Work Phone: Comment on above: Expected: 06/19/2022 (Approximate), Expires: 08/19/2022 Start: 06-12-2022 End: 08-12-2022 Thyrotropin [Units/volume] in Serum or Plasma TSH BLD Lab Routine Anemia, normocytic normochromic Expected: 06/12/2022 (Approximate), Expires: 08/12/2022 [facility] Work Phone: Comment on above: Expected: 06/12/2022 (Approximate), Expires: 08/12/2022 Start: 06-05-2022 End: 08-05-2022 Comprehensive metabolic 2000 panel - Serum or Plasma COMP METABOLIC PANEL Lab Routine Anemia, normocytic normochromic Expected: 06/05/2022 (Approximate), Expires: 08/05/2022 [facility] Work Phone: Comment on above: Expected: 06/05/2022 (Approximate), Expires: 08/05/2022 Start: 05-26-2022 End: 07-26-2022 CBC W Auto Differential panel - Blood CBC + DIFF Lab Routine Anemia, normocytic normochromic Expected: 05/26/2022, Expires: 07/26/2022 [facility] Work Phone: Comment on above: Expected: 05/26/2022 , Expires: 07/26/2022 Start: 05-26-2022 End: 07-26-2022 Comprehensive metabolic 2000 panel - Serum or Plasma COMP METABOLIC PANEL Lab Routine Anemia, normocytic normochromic Expected: 05/26/2022, Expires: 07/26/2022 [facility] Work Phone: Comment on above: Expected: 05/26/2022 , Expires: 07/26/2022 Start: 05-26-2022 End: 07-26-2022 Ferritin [Mass/volume] in Serum or Plasma FERRITIN BLD Lab Routine Anemia, normocytic normochromic Expected: 05/26/2022, Expires: 07/26/2022 [facility] Work Phone: Comment on above: Expected: 05/26/2022 , Expires: 07/26/2022 Start: 05-26-2022 End: 07-26-2022 Iron and Iron binding capacity panel - Serum or Plasma IRON + TIBC Lab Routine Anemia, normocytic normochromic Expected: 05/26/2022, Expires: 07/26/2022 [facility] Work Phone: Comment on above: Expected: 05/26/2022 , Expires: 07/26/2022 Start: 05-22-2022 End: 07-22-2022 Cobalamin (Vitamin B12) [Mass/volume] in Serum or Plasma [facility] Work Phone: Comment on above: Expected: 05/22/2022 , Expires: 07/22/2022 Start: 05-22-2022 End: 05-22-2023 Ferritin [Mass/volume] in Serum or Plasma [facility] Work Phone: Comment on above: Expected: 05/22/2022 , Expires: 05/22/2023 Start: 05-22-2022 End: 07-22-2022 Folate [Mass/volume] in Serum or Plasma [facility] Work Phone: Comment on above: Expected: 05/22/2022 , Expires: 07/22/2022 Start: 05-22-2022 End: 05-22-2023 Iron and Iron binding capacity panel - Serum or Plasma [facility] Work Phone: Comment on above: Expected: 05/22/2022 , Expires: 05/22/2023 Start: 05-22-2022 End: 07-22-2022 MONOCLONAL PROTEIN, SERUM (BLOOD) [facility] Work Phone: Comment on above: Expected: 05/22/2022 , Expires: 07/22/2022 Start: 05-22-2022 End: 07-22-2022 PROTEIN ELECT RND UR W/INTERP [facility] Work Phone: Comment on above: Expected: 05/22/2022 , Expires: 07/22/2022 Start: 05-07-2022 Influenza vaccination INFLUENZA (#1) [facility] Start: 09-06-2021 DEPRESSION ASSESSMENT DEPRESSION ASS ESSMENT [facility] Start: 06-04-2017 Adult depression screening assessment DEPRESSION SCREENING [facility] Start: 01-09-2014 Administration of varicella zoster vaccine Zoster (Shingles) Vaccine (1 of 2) [facility] Start: 01-09-2014 SHINGRIX VACCINE (1 of 2) FERGUSON GRIX VACCINE (1 of 2) [facility] Start: 01-09-2009 COLOGUARD (FIT-DNA) COLOGUARD (FIT-D NA) [facility] Start: 01-09-2009 Colonoscopy COLONOSCOPY [facility] Start: 01-09-2009 COLORECTAL CANCER SCREENING COLORECTAL CANCER SCREENING [facility] Start: 01-09-[address] COLONOGRAPHY [facility] [place] [facility] Start: 01-09-2009 DIABETES SCREEN DIABETES SCREEN [facility] [place] [facility] Start: 01-09-2009 Diabetes Screening Diabetes Screenin g [facility] Start: 01-09-2009 FECAL OCCULT BLOOD FECAL OCCULT BLOO D [facility] Start: 01-09-2009 Lipid 1996 panel - S elissa or Plasma Lipid Screening [facility] Start: 01-09-2009 Lipid panel Lipid Screening [facility] Start: 01-09-2009 LIPID SCREEN LIPID SCREEN [facility] Start: 01-09-2009 Screening for malign ant neoplasm of colon [facility] Start: 01-09-2009 SIGMOIDOSCOPY SIGMOIDOSCOPY [facility] Start: 2004 Mammography [facility] Start: 01-09-1994 HPV TESTING HPV TESTING [facility] Start: 01-09-1994 Zoledronic acid therapy ALPHA- 1 ANTITRYPSIN DEFICIENCY SCREENING [facility] Start: 01-09-1985 PAP TESTING PAP TESTING [facility] Start: 01-09-1985 Screening for malign ant neoplasm of cervix [facility] Start: 01-09-1983 DTaP,Tdap and Td Vac cines (1 - Tdap) DTaP,Tdap and Td Vaccines ( - Tdap) [facility] Start: 01-09-1983 Urine microalbumin profile [facility] Start: 01-09-1982 ANNUAL PCP TEAM MUSHROOM PACKER ALLEN DISEASE VISIT ANNUAL PCP TEAM CHRONIC DISEASE VISIT [facility] Start: 01-09-1982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 other than routine body substance precautions. More information regarding radiation safety can be found using this link: [email or web address] SIGNATURE: RT Urszula(R) PATIENT NAME: Kaya Schilling DATE: April 06, 2024 TIME: 1:33 PM PAGER/CONTACT #: [facility] 04-06-2024 Note HNO ID: [id number] Author: LOGAN APTEL RN Service: ? Author Type: Registered Nurse Type: Progress Notes Filed: 04/06/2024 13:19 Note Text: Radiology Service Progress Note DATE OF SERVICE: April 06, 2024 TIME: 1:18 PM PATIENT WEIGHT: 117LBS PATIENT IDENTITY VERIFICATION COMPLETED USING TWO (2) STANDARD IDENTIFIERS: Name and Date of confirmed by patient verbally. FALL SCREENING: Has the patient had 2 falls in the last year or 1 fall with injury or currently using an Ambulatory Assistive Device (Walker, Cane, Wheelchair, Crutches, etc.)? No PATIENT GENDER DATA: Female. status: : No status: NO. ALLERGIES: Reviewed and unchanged CONTRAST ALLERGY: No EXAM: CT -CONTRAST INDUCED NEPHROPATHY RISK FACTORS: Patient age > 60 years CREATININE: Creatinine Date Value Ref Range Status 03/23/2024 1.25 (H) 0.58 - 0.96 mg/dL Final Estimated Glomerular Filtration Rate Date Value Ref Range Status 03/23/2024 49 (L) >=60 mL/min/1.73m? Final Comment: Estimated Glomerular Filtration Rate (eGFR) is calculated using the 2020 CKD-EPI creatinine equation. This equation utilizes serum creatinine, sex, and age as parameters. The creatinine assay has traceable calibration to isotope dilution-mass spectrometry. Refer to KDIGO guidelines for clinical interpretation. In patients with unstable renal function, e.g. those with acute kidney injury, the eGFR may not accurately reflect actual GFR. P.O.C.T. RESULTS: POC done: Yes, See Lab Tab April 06, 2024 TREATMENT: N/A IV SITE: Ambulatory: A peripheral IV was started in the Right forearm with a Angio cath: 20 gauge. IV SITE APPEARANCE: Clean,Dry and Intact SIGNATURE: Logan Patel RN PATIENT NAME: Kaya Schilling DATE: April 06, 2024 TIME: 1:18 PM [facility] 04-03-[address] - 04/03/2024 [...] day -will complete paperwork and send to [facility] for insurance determination -incorporate calorie/protein boosting techniques at meals/snacks -whole milk, full fat dairy, cream, butter/margarine, full fat jennings/dressing/condiments, oils, avocado, peanut butter, etc. documented in this encounter [facility] 04-03-2024 Note Education (NUTRSA) KAYA SCHILLING ([id number]) 1965 F Date Time Provider Department 04/03/24 12:45 PM ERENDIRA AGUILLON NUTR Reason for Visit: Nutrition Telephone [2013] Primary Visit Diagnosis:Severe protein-calorie malnutrition (HCC) [E43] [...] Encounter Status:Closed by ERENDIRA AGUILLON on 04/03/24 [facility] 04-03-2024 Note HNO ID: [id number] Author: ERENDIRA AGUILLON RD Service: ? Author Type: Registered Dietitian Type: Progress Notes Filed: 04/03/2024 13:41 Note Text: Oncology Nutrition Therapy Initial Assessment I have communicated my name and active licensure. The patient's identity and physical location were verified at the time of this visit. Either the patient or their legal wholesale representative has been informed of the risks [...] day -will complete paperwork and send to [facility] for insurance determination -incorporate calorie/protein boosting [...] Dosing Weight: 52.1 kg Estimated kilocalorie needs: 9412-7848 kilocalories determined by 35-40 kcal/kg Estimated protein needs: 63-78 grams determined by 1.2-1.5 g/kg Dosing weight Estimated fluid needs: ~4491-3818 milliliters based on 1 mL per kcal (unless otherwise indicated) Nutrition Focused Physical Exam: Unable to perform (more content not included)... [facility] 04-03-2024 History of Present illness Narrative Oncology Nutrition Therapy Initial Assessment I have communicated my name and active licensure. The patient's identity and physical location were verified at the time of this visit. Either the patient or their legal wholesale representative has been informed of the risks [...] day -will complete paperwork and send to [facility] for insurance determination -incorporate calorie/protein boosting [...] Dosing Weight: 52.1 kg Estimated kilocalorie needs: 9591-9273 kilocalories determined by 35-40 kcal/kg Estimated protein needs: 63-78 grams determined by 1.2-1.5 g/kg Dosing weight Estimated fluid needs: ~6011-4461 milliliters based on 1 mL per kcal [...] MS, RD, LD documented in this encounter [facility] 03-29-2024 Telephone encounter Note Results printed from Care Everywhere and placed in Dr's mail folder for review. Brea Villagomez RN [facility] Work Phone: 03-29-2024 Miscellaneous Notes Results printed from Care Everywhere and placed in Dr's mail folder for review. Brea Villagomez RN Per Minal @ [facility] Pathology, pt's HER2 FISH analysis is still pending. Brea Villagomez RN documented in this encounter [facility] 03-28-2024 Telephone encounter Note Pt called for I need stronger pain meds. 03/23/24 pt had spoke with BRM and pt was referred to PCP for management of pain medications, until follow up with pall med 04/14/24. Discussed with pt. She will call PCP, and was transferred to PSS to see if appt can be moved sooner. BRM: BRIAN Aranda RN [facility] 03-28-2024 Miscellaneous Notes Pt called for I need stronger pain meds. 03/23/24 pt had spoke with BRM and pt was referred to PCP for management of pain medications, until follow up with pall med 04/14/24. Discussed with pt. She will call PCP, and was transferred to PSS to see if appt can be moved sooner. BRM: BRIAN Aranda RN documented in this encounter [facility] 03-27-2024 Telephone encounter Note LOCAL PATIENT Received Fax from [facility] Kaya Schilling is being referred to Jeanne Mccormick M.D., Ph. D. by [address] [place], [place] [id number] Patient diagnosis/Reason for consult: Gastric Adenocarcinoma Referral triage process explained: No Patient will receive a call from Thoracic NPM after triage review with surgeon to discuss any additional testing and/or consults that will be scheduled. Pt will then receive a call from our scheduling office for scheduling. Please call pt at [phone]. Patient was informed consultation could be at [facility] or [facility]: No Patient Registration: Registration complete/updated: yes Insurance card(s) scanned in [facility] with in the past year: Yes: Date: 03/23/24 Pt's MyChart is Pending. Ok to communicate to pt via [employer] not asked Medical Records: Records in [facility] (internal CC records): Yes Imaging in [facility] (internal CC records): Yes Care Everywhere - queried yes, downloaded Yes Linked Outside Organizations (list): [facility] Records Requested: no Date: N/A Outside Hospital(s) requested records from: n/a Received: yes Uploaded: Yes. Waiting on additional records: No. Missing (list): Records in OS Pathology Slides Requested: no Date: N/A Outside Hospital(s) slides requested from: n/a OSH Radiology Imaging Requested: yes Date: N/A Outside Hospital(s) requested imaging from: [facility]. Imaging will be received via Electronic Transfer Received: Yes Imaging uploaded: Yes Waiting on additional: No. Missing (list): n/a Additional providers added to Care Teams: Yes Additional Notes/Comments: n/a Enct routed to: Dirk Castano NPM for Triage Leatha Rodriguez, windows systems admin [facility] 03-24-2024 Telephone encounter Note Pt called the [facility] seed culler service last night for pain. Called to discuss and pt VM full. Plan per BRM OV 03/23/24 [place] PRN pain and pall med referral. Pt is schedule with Taniya Hughes 04/14/24. BORA Cantor RN spoke with BRM and he did talk with pt last night. She was encouraged to see PCP, if needed for further pain control, until her scheduled new pt appt with pall med at our facility 04/14/24. Tena Aranda RN [facility] 03-24-2024 Miscellaneous Notes Pt called the [facility] c[facility] service last night for pain. Called to discuss and pt VM full. Plan per BRM OV 03/23/24 [place] PRN pain and pall med referral. Pt is schedule with Taniya Hughes 04/14/24. BORA Cantor RN spoke with BRM and he did talk with pt last night. She was encouraged to see PCP, if needed for further pain control, until her scheduled new pt appt with pall med at our facility 04/14/24. Tena Aranda RN documented in this encounter [facility] 03-23-2024 Nurse Note Patient Identification confirmed: yes. Injection given and documented on NOV per provider order. Amirah Koch MA [facility] 03-23-2024 Telephone encounter Note Per Minal @ [facility] Pathology, pt's HER2 FISH analysis is still pending. Brea Villagomez RN [facility] 03-22-2024 Note HNO ID: [id number] Author: BETO VIVAR MD Service: ? Author Type: Physician Type: Progress Notes Filed: 03/24/2024 09:52 Note Text: PATIENT NAME: Kaya Schilling DATE: 03/23/2024 PRIMARY CARE PHYSICIAN: Kostas Steward DO OTHER PHYSICIANS: Dr. Cong Montano, Dr. Ramires (Psych in [place]) HPI: This is a 59 year old female with recently diagnosed gastric cancer, referred for further management. The patient presented 02/13/2024 to [facility] emergency room for evaluation of left sided [...] upper quadrant and lower abdomen ., On [place] with relief. Not maarried. 2 children. Family [...] facial swelling, fever/chills (more content not included)... [facility] 03-22-2024 History of Present illness Narrative PATIENT NAME: Kaya Schilling DATE: 03/23/2024 PRIMARY CARE PHYSICIAN: Kostas Steward DO OTHER PHYSICIANS: Dr. Cong Montano, Dr. Ramires (Psych in [place]) HPI: This is a 59 year old female with recently diagnosed gastric cancer, referred for further management. The patient presented 02/13/2024 to [facility] emergency room for evaluation of left sided [...] upper quadrant and lower abdomen ., On [place] with relief. Not maarried. 2 children. Family [...] of broken nose had septoplasty Manic depression ([facility]) Dr. Rees Midline low back pain [...] 03/11/2015 464 RADIOLOGY/OTHER STUDIES: 02/13/2024 Chest CTA ([facility]) Acute pulmonary embolism involving segmental branches of the left upper lobe and interlobar and segmental branches of right middle and lower lobes. 2.6 x 5.6 cm enhancing intraluminal mass along the lesser curvature suspicious for gastric cancer Gastrohepatic ligament lymphadenopathy representing metastasis 11/19/2023 CT abdomen/pelvis ([facility]) Mild wall thickening of the colon is [...] (primary diagnosis) The patient presented 02/13/2024 to [facility] emergency room for evaluation of left sided [...] G89.3 Pain LUQ and lower abd. Continue [place] PRN. Pall med referral. Beto Vivar MD CC: Dr. Cong Montano documented in this encounter [facility] 12-06-2023 Nurse Note Patient Identification confirmed: yes. Injection given and documented on NOV per provider order. Amirah Koch MA documented in this encounter [facility] 12-06-2023 Nurse Note Patient Identification confirmed: yes. Injection given and documented on NOV per provider order. Amirah Koch MA documented in this encounter [facility] 11-17-2023 History of Present illness Narrative [address] [place] [address] Patient: Kaya Schilling Date of : 1965 [...] via Real-time Synchronous Audiovisual Provider Location: [facility] [address] [place] [address] Patient Location: Patient's home Video Visit Consent [...] that there are some limitations compared to fuvz-xl-qgvk evaluations. The patient consented to the presence of additional virtual and/or in-person participants. We elected to proceed. Problem List Items Addressed This Visit Endocrine Type 2 diabetes mellitus without complication, without long-term current use of insulin ([facility] Hyperparathyroidism ([facility]) Other Visit Diagnoses Diarrhea of presumed infectious [...] Medical History: Diagnosis Date Bipolar 1 disorder ([facility]) Elevated parathyroid hormone Empty sella ([facility]) Female bladder prolapse Hepatitis C Hypercalcemia Hypothyroidism Manic depression ([facility]) Migraine Scoliosis Past Surgical History: Procedure Laterality [...] complication, without long-term current use of insulin ([facility]) Hyperparathyroidism ([facility]) Other orders - promethazine (PHENERGAN) 12.5 mg tablet; Take 1 tablet (12.5 mg total) by mouth every 8 (eight) hours as needed for nausea or vomiting for up to 5 days. Follow-up: Since her diarrhea symptoms have been persistent for the last week we will check stool pathogen panel and C diff. she agrees to go to [facility] for this. Risks of Phenergan including sedation [...] tolerate PO intake she should call 911. [phone] 20min DAHLIA JANE APRN-CNP 11/20/23 0914 documented in this encounter [facility] 11-11-2023 Miscellaneous Notes Pt calls states she has that new virus called Norovirus. She is feeling better. Told her to try the brat diet documented in this encounter [facility] 11-11-2023 Telephone encounter Note Pt calls states she has that new virus called Norovirus. She is feeling better. Told her to try the brat diet [facility] 11-05-2023 Miscellaneous Notes Pt called and just wanted to let us know she is sick and I told her we are closed and please if drink plenty of water and if she gets worse please go to Local hospital to be checked documented in this encounter [facility] 11-05-2023 Telephone encounter Note Pt called and just wanted to let us know she is sick and I told her we are closed and please if drink plenty of water and if she gets worse please go to Local hospital to be checked [facility] 07-03-2022 Miscellaneous Notes per answering service, pt cx today rv and tx appointments due to being up all night sick will call back to reschedule. documented in this encounter [facility] 06-04-2022 Miscellaneous Notes Patient left a message on my voicemail today to get this appointment scheduled. Call placed to patient, no answer. Left message on voicemail to call back to reschedule. Roberta Vauhgan Per Answering Service message patient called requested to cancel this appointment and stated she will call us back to reschedule. Hanna Pop documented in this encounter [facility] 05-29-2022 Miscellaneous Notes Patient is listed on the First Time Treatment List for a non-oncology treatment. No psychosocial assessment is indicated. CHUCHO Francis documented in this encounter [facility] 05-28-2022 Miscellaneous Notes Called Amada Nash spoke with Luisa. She states they have received this referral and their campus wellness coordinator will be calling patient soon to schedule. Hanna Pop Records faxed to [facility]. Appointments moved to next (06/04). Called [...] evaluate as well,. documented in this encounter [facility] 05-26-2022 Miscellaneous Notes Patient scheduled to see you on 06/04/22 for follow up with labs. Please add lab orders. Thanks. Amirah Koch MA documented in this encounter [facility] 05-22-2022 History of Present illness Narrative PATIENT NAME: Kaya Schilling CLINIC NO.: [id number] ATTENDING PHYSICIAN: Ignacio Sam MD DATE OF [...] disease) (HCC) Diabetes mellitus (adult onset) (HCC) History of broken nose had septoplasty Manic depression ([facility]) Dr. Rees Neck pain Pneumonia PTSD [...] 11/03/2013 1.21 1.00 - 4.00 k/uL Final [place]% Date Value Ref Range Status 11/03/2013 7.7 % Final Abs [place] Date Value Ref Range Status 11/03/2013 0.36 0.00 - 0.86 k/uL Final Abs Eosin Date Value Ref Range Status 11/03/2013 0.12 0.00 - 0.45 k/uL Final Baso% Date Value Ref Range Status 11/03/2013 0.9 % Final Abs Baso Date Value Ref Range Status 11/03/2013 0.04 0.00 - 0.10 k/uL Final Comment: Performed at [facility] , [address] [place] [address] PATH: IMAGING: ASSESSMENT AND PLAN: Kaya Schilling [...] number below. Ignacio Sam M.D. Hematology/[facility] [phone] CC: Kostas Steward, I spent a total of 40 minutes on the date of the service which included preparing to see the patient, dqnv-fr-jluo patient care, completing clinical documentation, obtaining and/or reviewing separately obtained history, performing a medically appropriate examination, counseling and educating the patient/family/caregiver, and ordering medications, tests, or procedures. documented in this encounter [facility] 04-23-2022 Evaluation note Encounter Date Diagnosis Assessment Notes Apr, Irritable bowel syndrome with constipation (ICD-10 - K58.1) [employer] Other 12-13-2021 Evaluation note* Encounter Date Diagnosis Assessment Notes Treatment Notes Treatment Clinical Notes Aug, Irritable bowel syndrome with constipation (ICD-10 - K58.1) [employer] Other 11-17-2021 Evaluation note* Encounter Date Diagnosis Assessment Notes Treatment Notes Treatment Clinical Notes Jul, Redundant colon (ICD-10 - Q43.8) Jul, Irritable bowel syndrome with constipation (ICD-10 - K58.1) Increase lactuose to 60cc bid Colonoscopy Jul, Elevated alkaline phosphatase level (ICD-10 - R74.8) Jul, History of hepatitis C (ICD-10 - Z86.19) Jul, Diabetes (ICD-10 - E11.9) [employer] Other 09-27-2021 Evaluation note* Encounter Date Diagnosis [...] mellitu s) (ICD-10 - E11.9) She has tlh-maqwdwz-ohfvdhkqx type 2 diabetes mellitus currently takes oral [...] avoid any calcium and vitamin D supplement. 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 secondary to blood loss (chronic) Vitamin B12 deficiency anemia due to selective vitamin B12 malabsorption with proteinuria Other vitamin B12 deficiency anemia [facility] Diagnosis Anemia, normocytic normochromic- Primary Anemia, unspecified [facility] Diagnosis Disorder of airway Unspecified disease of respiratory system Airway obstruction, anatomic Other diseases of respiratory system, not elsewhere classified [facility] Diagnosis Acquired hypothyroidism Unspecified hypothyroidism [facility]* Diagnosis Type 2 diabetes mellitus without complication, without long-term current use of insulin ([facility]) documented in this encounter [facility]* Diagnosis Diarrhea of presumed infectious origin- Primary Weakness Other malaise and fatigue Type 2 diabetes mellitus without complication, without long-term current use of insulin ([facility]) Hyperparathyroidism ([facility]) Hyperparathyroidism, unspecified [facility] Diagnosis Megaloblastic anemia due to vitamin B12 deficiency- Primary Other vitamin B12 deficiency anemia [facility] Diagnosis Malignant neoplasm of cardia of [...] blood loss (chronic) [facility] Diagnosis Megaloblastic anemia due to vitamin B12 deficiency- Primary Other vitamin B12 deficiency anemia Iron deficiency anemia due to chronic blood loss Iron deficiency anemia secondary to blood loss (chronic) [facility] Diagnosis Severe protein-calorie malnutrition (HCC)- Primary Other severe protein-calorie malnutrition 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) Malignant neoplasm of cardia [facility] Diagnosis Megaloblastic anemia due to vitamin B12 deficiency- Primary Other vitamin B12 deficiency anemia [facility] Diagnosis Megaloblastic anemia due to vitamin B12 deficiency- Primary Other vitamin B12 deficiency anemia Iron deficiency anemia due to chronic blood loss Iron deficiency anemia secondary to blood loss (chronic) [facility] Diagnosis Palliative care by specialist- Primary 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) Malignant neoplasm of cardia Cancer related pain Neoplasm related pain (acute) (chronic) Post-traumatic osteoarthritis of multiple joints Constipation due to opioid therapy Opioid contract exists Encounters for other specified administrative purpose Weight loss Loss of weight Nausea Nausea alone Anxiety with depression Insomnia due to medical condition Insomnia due to medical condition classified elsewhere [facility] Diagnosis 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 Malignant neoplasm of cardia Severe protein-calorie malnutrition (HCC) Other severe protein-calorie malnutrition [facility] Diagnosis Megaloblastic anemia due to vitamin B12 deficiency- Primary Other vitamin B12 deficiency anemia 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) Malignant neoplasm of cardia Opioid contract exists Encounters for other specified administrative purpose Iron deficiency anemia due to chronic blood loss Iron deficiency anemia secondary to blood loss (chronic) documented in this encounter [facility] general Narrative - Reported* Type Description Date [...] Surgical History LAPAROSCOPY Hospitalization History SEE ABOVE [employer] Other InstructionsNot on filedocumented in this encounter [email or web address] SystemInstructionsNot on filedocumented in this encounter [email or web address] SystemInstructionsNot on filedocumented in this encounter [facility] Diagnostic Procedure Only (Routine) - Closed Specialty Diagnoses / Procedures Referred By Graham gray Referred To Contact CT IMAGING Diagnoses Disorder of airway Airway obstruction, anatomic Procedures CT NECK SOFT TISSUE WO IVCON CT SCAN OF NECK TISSUE Trev Shah MD [address] [facility] [address] [place] [address] [address] [place] [address] Referral ID Status Reason Start Date Expiration Date V isits Requested Visits Authorized [id number] Closed Auto-Generat ed Referral Patient Cleared - Admin/Chairm an/Director advise to proceed or did not respond 01/21/2021 03/22/2021 3 3 [facility] for referral (narrative)* Consultation (Routine) - Pending Review Specialty Diagnoses / Procedures Referred By Graham gray Referred To Contact Home Health Services Anna Marie Aguilera APRN-NURSE ORTHOPAEDIC [address] [place] [id number] [address] Referral ID Status Reason Start Date Expiration Date Visits Requested Visits Authorized [id number] Pending Review Specialty Services Required 11/18/2023 11/17/2024 1 1 [facility] for referral (narrative)* Diagnostic Procedure Only (Routine) - Open Specialty Diagnoses / Procedures Referred By [facility] Referred To Contact MOLECULAR & FUNCTIONAL IMAGING Diagnoses 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) Procedures NM PET/CT SKULL-THIGH INITIAL PET IMAGING CT ATTENUATION SKULL BASE MID-THIGH Beto Vivar MD [address] [place] [address] [place] [address] Molecular & Functional Imaging [address] [place] [address] Referral ID Status Reason Start Date Expiration Date V isits Requested Visits Authorized [id number] Open Auto-Generate d Referral 03/23/2024 04/22/2025 1 1 * MRI/CT (Routine) - Open Specialty Diagnoses / Procedures Referred By [facility] Referred To Contact CT IMAGING Diagnoses 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) Procedures CT ABDOMEN W IVCON CT ABDOMEN W/CONTRAST Beto Viavr MD [address] [place] [address] [place] [address] Ct Imaging [facility] Referral ID Status Reason Start Date Expiration Date V isits Requested Visits Authorized [id number] Open Auto-Generate d Referral 03/23/2024 04/22/2025 1 1 * MRI/CT (Routine) - Open Specialty Diagnoses / Procedures Referred By [facility] Referred To Contact CT IMAGING Diagnoses 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) Procedures CT CHEST W IVCON DIAGNOSTIC COMPUTED TOMOGRAPHY THORAX W/CONTRAST Beto Vivar MD [address] [place] [address] [place] [address] [place] [address] Referral ID Status Reason Start Date Expiration Date V isits Requested Visits Authorized [id number] Open Auto-Generate d Referral 03/23/2024 04/22/2025 1 1 * Consult, Test, Treat (Routine) - Authorized Specialty Diagnoses / Procedures Referred By Contac t Referred To Contact Diagnoses 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) Cancer related pain Procedures CONSULT TO PALLIATIVE CARE OFFICE/OUTPATIENT [facility] 60 MINUTES Beto Viavr MD [address] [place] [address] [place] [address] Referral ID Status Reason Start Date Expiration Date Visits Requested Visits Authorized [id number] Authorized PCP Requested Referral 03/23/2024 03/23/2025 1 1 [facility] for visit Narrative* Diagnostic Procedure Only (Routine) - Closed Specialty Diagnoses / Procedures Referred By Contac t Referred To Contact CT IMAGING Diagnoses Disorder of airway Airway obstruction, anatomic Procedures CT NECK SOFT TISSUE WO IVCON CT SCAN OF NECK TISSUE Trev Shah MD [address] [place] [address] [place] [address] Referral ID Status Reason Start Date Expiration Date V isits Requested Visits Authorized [id number] Closed Auto-Generat ed Referral Patient Cleared - Admin/Chairm an/Director advise to proceed or did not respond 01/21/2021 03/22/2021 3 3 [facility] Summary Purpose Family History No Family [...] Directives Records FoundNo Advanced Directives Records Found Reason for Referral Specialty Diagnoses / Procedures Referred By Contac t Referred To Contact Diagnoses 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) Cancer related pain Lillie Hughes, [employer].NURSE ORTHOPAEDIC [address] [place] [address] Referral ID Status Reason Start Date Expiration Date Visits Re quested Visits Authorized [id number] Closed 1 1 Specialty Diagnoses / Procedures Referred By Contac t Referred To Contact Lillie Hughes, BERENCIE.NURSE ORTHOPAEDIC [address] [place] [address] Referral ID Status Reason Start Date Expiration Date Visits Re quested Visits Authorized [id number] Closed 1 1 Additional Source Comments INFORMATION SOURCE (unrecogn ized section and content) DATE CREATED AUTHOR 02/27/2021 [facility] DATE CREATED AUTHOR AUTHOR'S ORGANIZ ATION 09/03/2022 [facility] DATE CREATED AUTHOR AUTHOR'S ORGANIZ ATION 01/20/2023 [facility] DATE CREATED AUTHOR AUTHOR'S ORGANIZ ATION 03/27/2024 [facility] DATE CREATED AUTHOR AUTHOR'S ORGANIZ ATION [facility]/31/20[facility] DATE CREATED AUTHOR AUTHOR'S ORGANIZ ATION 04/06/2024 [facility] DATE CREATED AUTHOR AUTHOR'S ORGANIZ ATION 04/12/2024 [facility] DATE CREATED AUTHOR AUTHOR'S ORGANIZ ATION 04/13/2024 [facility] REASON FOR VISIT (unrecogniz ed section and content) Reason Comments Anemia Reason Comments Social Work Services Reason Comments Results Reason Comments Lab Orders Reason Comments Appointment Cancelled Reason Comments Patient Update Reason Comments Med Refill Reason Onset Date Comments Med Refill 10/25/2023 Reason Comments Pain Reason Comments Care Coordination HER2 FISH Analysis Specialty Diagnoses / Procedures Referred By Graham t Referred To Contact Diagnoses Megaloblastic anemia due to vitamin B12 deficiency Iron deficiency anemia due to chronic blood loss Procedures IRON SUCROSE INJECTION PER 1 MG Beto Vivar MD [address] [place] [address] [place] [address] [employer] [facility] Julianna [address] [place] [address] Referral ID Status Reason Start Date Expiration Date V isits Requested Visits Authorized [id number] Authorized 03/23/2024 09/05/2024 99 99 Reason Comments Nutrition Telephone Reason Comments Patient Question Patient Update Reason Comments External Referrals/resources Reason Comments Care Coordination Scan Results Reason Comments Care Coordination Thoracic Surgery Con sult Reason Comments 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 Reason Comments Palliative Medicine New patient consult Specialty Diagnoses / Procedures Referred By Contac t Referred To Contact Diagnoses 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) Cancer related pain Procedures CONSULT TO PALLIATIVE CARE OFFICE/OUTPATIENT NEW HIGH MDM 60 MINUTES Beto Vivar MD [address] [place] [address] [place] [address] Referral ID Status Reason Start Date Expiration Date V isits Requested Visits Authorized [id number] Closed PCP Requested Referral 03/23/2024 03/23/2025 1 1 Source Comments (unrecognize d section and content) In the event this informatio n is protected by the Federal Confidentiality of Alcohol and Drug Abuse Patient Records regulations: The Federal rules restrict any use of the information to criminally investigate or prosecute any alcohol or drug abuse patient.[facility] the event this information is protected by the Federal Confidentiality of Alcohol and Drug Abuse Patient Records regulations: The Federal rules restrict any use of the information to criminally investigate or prosecute any alcohol or drug abuse patient.[facility] the event this information is protected by the Federal Confidentiality of Alcohol and Drug Abuse Patient Records regulations: The Federal rules restrict any use of the information to criminally investigate or prosecute any alcohol or drug abuse patient.[facility] the event this information is protected by the Federal Confidentiality of Alcohol and Drug Abuse Patient Records regulations: The Federal rules restrict any use of the information to criminally investigate or prosecute any alcohol or drug abuse patient.[facility] the event this information is protected by the Federal Confidentiality of Alcohol and Drug Abuse Patient Records regulations: The Federal rules restrict any use of the information to criminally investigate or prosecute any alcohol or drug abuse patient.[facility] the event this information is protected by the Federal Confidentiality of Alcohol and Drug Abuse Patient Records regulations: The Federal rules restrict any use of the information to criminally investigate or prosecute any alcohol or drug abuse patient.[facility] the event this information is protected by the Federal Confidentiality of Alcohol and Drug Abuse Patient Records regulations: The Federal rules restrict any use of the information to criminally investigate or prosecute any alcohol or drug abuse patient.[facility] the event this information is protected by the Federal Confidentiality of Alcohol and Drug Abuse Patient Records regulations: The Federal rules restrict any use of the information to criminally investigate or prosecute any alcohol or drug abuse patient.[facility] Hospital[facility] the event this information is protected by the Federal Confidentiality of Alcohol and Drug Abuse Patient Records regulations: The Federal rules restrict any use of the information to criminally investigate or prosecute any alcohol or drug abuse patient.[facility] Hospital[facility] the event this information is protected by the Federal Confidentiality of Alcohol and Drug Abuse Patient Records regulations: The Federal rules restrict any use of the information to criminally investigate or prosecute any alcohol or drug abuse patient.[facility] Hospital[facility] the event this information is protected by the Federal Confidentiality of Alcohol and Drug Abuse Patient Records regulations: The Federal rules restrict any use of the information to criminally investigate or prosecute any alcohol or drug abuse patient.[facility] Hospital[facility] the event this information is protected by the Federal Confidentiality of Alcohol and Drug Abuse Patient Records regulations: The Federal rules restrict any use of the information to criminally investigate or prosecute any alcohol or drug abuse patient.[facility] Hospital[facility] the event this information is protected by the Federal Confidentiality of Alcohol and Drug Abuse Patient Records regulations: The Federal rules restrict any use of the information to criminally investigate or prosecute any alcohol or drug abuse patient.[facility] Hospital[facility] the event this information is protected by the Federal Confidentiality of Alcohol and Drug Abuse Patient Records regulations: The Federal rules restrict any use of the information to criminally investigate or prosecute any alcohol or drug abuse patient.[facility] Hospital[facility] the event this information is protected by the Federal Confidentiality of Alcohol and Drug Abuse Patient Records regulations: The Federal rules restrict any use of the information to criminally investigate or prosecute any alcohol or drug abuse patient.[facility] HospitalIn the event this information is protected by the Federal Confidentiality of Alcohol and Drug Abuse Patient Records regulations: The Federal rules restrict any use of the information to criminally investigate or prosecute any alcohol or drug abuse patient.[facility] Hospital[facility] the event this information is protected by the Federal Confidentiality of Alcohol and Drug Abuse Patient Records regulations: The Federal rules restrict any use of the information to criminally investigate or prosecute any alcohol or drug abuse patient.[facility] HospitalIn the event this information is protected by the Federal Confidentiality of Alcohol and Drug Abuse Patient Records regulations: The Federal rules restrict any use of the information to criminally investigate or prosecute any alcohol or drug abuse patient.[facility] HospitalIn the event this information is protected by the Federal Confidentiality of Alcohol and Drug Abuse Patient Records regulations: The Federal rules restrict any use of the information to criminally investigate or prosecute any alcohol or drug abuse patient.[facility]In the event this information is protected by the Federal Confidentiality of Alcohol and Drug Abuse Patient Records regulations: The Federal rules restrict any use of the information to criminally investigate or prosecute any alcohol or drug abuse patient.[facility] HospitalIn the event this information is protected by the Federal Confidentiality of Alcohol and Drug Abuse Patient Records regulations: The Federal rules restrict any use of the information to criminally investigate or prosecute any alcohol or drug abuse patient.[facility] HospitalIn the event this information is protected by the Federal Confidentiality of Alcohol and Drug Abuse Patient Records regulations: The Federal rules restrict any use of the information to criminally investigate or prosecute any alcohol or drug abuse patient.[facility] the event this information is protected by the Federal Confidentiality of Alcohol and Drug Abuse Patient Records regulations: The Federal rules restrict any use of the information to criminally investigate or prosecute any alcohol or drug abuse patient.[facility] HospitalIn the event this information is protected by the Federal Confidentiality of Alcohol and Drug Abuse Patient Records regulations: The Federal rules restrict any use of the information to criminally investigate or prosecute any alcohol or drug abuse patient.[facility] HospitalIn the event this information is protected by the Federal Confidentiality of Alcohol and Drug Abuse Patient Records regulations: The Federal rules restrict any use of the information to criminally investigate or prosecute any alcohol or drug abuse patient.[facility] HospitalIn the event this information is protected by the Federal Confidentiality of Alcohol and Drug Abuse Patient Records regulations: The Federal rules restrict any use of the information to criminally investigate or prosecute any alcohol or drug abuse patient.[facility] HospitalIn the event this information is protected by the Federal Confidentiality of Alcohol and Drug Abuse Patient Records regulations: The Federal rules restrict any use of the information to criminally investigate or prosecute any alcohol or drug abuse patient.[facility] HospitalIn the event this information is protected by the Federal Confidentiality of Alcohol and Drug Abuse Patient Records regulations: The Federal rules restrict any use of the information to criminally investigate or prosecute any alcohol or drug abuse patient.[facility] HospitalIn the event this information is protected by the Federal Confidentiality of Alcohol and Drug Abuse Patient Records regulations: The Federal rules restrict any use of the information to criminally investigate or prosecute any alcohol or drug abuse patient.[facility] Care Teams (unrecognized sec tion and content) Living Skills Advisor Relationship Specialty Start Date End Date Kostas Steward DO [address] [place] [address] PCP - General Family Practice 05/14/22 Living Skills Advisor Relationship Specialty Start Date End Date Kostas Steward DO [address] [place] [address] PCP - General Family Practice 05/14/22 Living Skills Advisor Relationship Specialty Start Date End Date Kostas Steward, DO [address] [place] [address] PCP - General Family Medicine 05/14/22 Living Skills Advisor Relationship Specialty Start Date End Date Kostas Steward, DO [address] [place] [address] PCP - General Family Medicine 05/14/22 Living Skills Advisor Relationship Specialty Start Date End Date Kostas Steward, DO [address] [place] [address] PCP - General Family Medicine 05/14/22 Living Skills Advisor Relationship Specialty Start Date End Date Kostas Steward, DO [address] [place] [address] PCP - General Family Medicine 05/14/22 Living Skills Advisor Relationship Specialty Start Date End Date Kostas Steward, DO [address] [place] [address] PCP - General Family Medicine 05/14/22 Living Skills Advisor Relationship Specialty Start Date End Date Conor Herrera PCP - General Family Medicine 10/25/13 05/13/22 Living Skills Advisor Relationship Specialty Start Date End Date Kostas Steward DO [address] [place] [address] PCP - General Family Medicine 05/28/22 Living Skills Advisor Relationship Specialty Start Date End Date Kostas Steward DO [address] [place] [address] PCP - General Family Medicine 05/28/22 Living Skills Advisor Relationship Specialty Start Date End Date Kostas Steward DO [address] [place] [address] PCP - General Family Medicine 05/28/22 Living Skills Advisor Relationship Specialty Start Date End Date Kostas Steward DO [address] [place] [address] PCP - General Family Medicine 05/14/22 Living Skills Advisor Relationship Specialty Start Date End Date Kostas Steward DO [address] [place] [address] PCP - General Family Medicine 05/14/22 Living Skills Advisor Relationship Specialty Start Date End Date Kostas Steward DO [address] [place] [address] PCP - General Family Medicine 05/14/22 Living Skills Advisor Relationship Specialty Start Date End Date Kostas Steward DO [address] [place] [address] PCP - General Family Medicine 05/14/22 Living Skills Advisor Relationship Specialty Start Date End Date Kostas Steward DO [address] [place] [address] PCP - General Family Medicine 05/14/22 Belen Carlton MD [address] [place] [address] [address] [place] [address] Hematology/Oncology 03/27/24 Living Skills Advisor Relationship Specialty Start Date End Date Kostas Steward DO [address] [place] [address] PCP - General Family Medicine 05/14/22 Belen Carlton MD [address] [place] [address] [address] [place] [address] Hematology/Oncology 03/27/24 Living Skills Advisor Relationship Specialty Start Date End Date Kostas Steward DO [address] [place] [phone] PCP - General Family Medicine 05/14/22 Belen Carlton MD [address] [place] [address] [address] [place] [address] Hematology/Oncology 03/27/24 Living Skills Advisor Relationship Specialty Start Date End Date Kostas Steward DO [address] [place] [address] PCP - General Family Medicine 05/14/22 Belen Carlton MD [address] [place] [address] [place] [address] Hematology/Oncology 03/27/[address] [place] [address] [place] [address] Registered Dietitian Nutrition 04/03/24 Living Skills Advisor Relationship Specialty Start Date End Date Kostas Steward DO [address] [place] [address] PCP - General Family Medicine 05/14/22 Belen Carlton MD [address] [place] [address] [place] [address] Hematology/Oncology 03/27/[address] [place] [address] Registered Dietitian Nutrition 04/03/24 Living Skills Advisor Relationship Specialty Start Date End Date Kostas Steward DO [address] [place] [address] PCP - General Family Medicine 05/14/22 Belen Carlton MD [address] [place] [address] [address] [place] [id number] Hematology/Oncology 03/27/[address] [place] [address] Registered Dietitian Nutrition 04/03/24 Jackie Silverio, COLD HEADER OPERATOR Kettle Worker 04/07/24 Living Skills Advisor Relationship Specialty Start Date End Date AprilKostas navas DO [address] [place] [address] PCP - General Family Medicine 05/14/22 Belen Carlton MD [address] [place] [address] [place], [place] [id number] Hematology/Oncology 03/27/[address] [place] [address] Registered Dietitian Nutrition 04/03/24 Jackie Silverio, COLD HEADER OPERATOR Kettle Worker 04/07/24 Living Skills Advisor Relationship Specialty Start Date End Date Kostas Steward DO [address] [place] [phone] PCP - General Family Medicine 05/14/22 Belen Carlton MD [address] [place] [address] [address] [place] [id number] Hematology/Oncology 03/27/[address] [facility] [place] [address] Registered Dietitian Nutrition 04/03/24 Jackie Silverio LSW Kettle Worker 04/07/24 Living Skills Advisor Relationship Specialty Start Date End Date Kostas Steward DO [address] [place] [phone] PCP - General Family Medicine 05/14/22 Belen Carlton MD [address] [place] [address] [address] [place], [place] [id number] Hematology/Oncology 03/27/[address] [place] [address] Registered Dietitian Nutrition 04/03/24 Jackie Silverio LSW Kettle Worker 04/07/24 Living Skills Advisor Relationship Specialty Start Date End Date Kostas Steward DO [address] [place] [address] PCP - General Family Medicine 05/14/22 Belen Carlton MD [address] [place] [address] [address] [place], [place] [id number] Hematology/Oncology 03/27/[address] [place] [address] Registered Dietitian Nutrition 04/03/24 Jackie Silverio LSW Kettle Worker 04/07/24 Living Skills Advisor Relationship Specialty Start Date End Date Kostas Steward DO [address] [place] [address] PCP - General Family Medicine 05/14/22 Belen Carlton MD [address] [place] [address] [address] [place] [id number] Hematology/Oncology 03/27/[address] [place] [address] [place] [address] Registered Dietitian Nutrition 04/03/24 Jackie Silverio, COLD HEADER OPERATOR Kettle Worker 04/07/24 Living Skills Advisor Relationship Specialty Start Date End Date Kostas Steward DO [address] [place] [address] PCP - General Family Medicine 05/14/22 Belen Carlton MD [address] [place] [address] [place], [place] [id number] Hematology/Oncology 03/27/[address] [place] [address] [place] [address] Registered Dietitian Nutrition 04/03/24 Jackie Silverio LSW Kettle Worker 04/07/24 Living Skills Advisor Relationship Specialty Start Date End Date Kostas Steward DO [address] [place] [address] PCP - General Family Medicine 05/14/22 Belen Carlton MD [address] [place] [address] [place] [address] Hematology/Oncology 03/27/[address] [place] [address] [place] [address] Registered Dietitian Nutrition 04/03/24 Jackie Silverio, COLD HEADER OPERATOR Kettle Worker 04/07/24 Living Skills Advisor Relationship Specialty Start Date End Date Kostas Steward DO [address] [place] [address] PCP - General Family Medicine 05/14/22 Belen Carlton MD [address] [place] [address] Hematology/Oncology 03/27/[address] [place] [address] Registered Dietitian Nutrition 04/03/24 Jackie Silverio, COLD HEADER OPERATOR Kettle Worker 04/07/24 Living Skills Advisor Relationship Specialty Start Date End Date Kostas Steward DO [address] [place] [address] PCP - General Family Medicine 05/14/22 Belen Carlton MD [address] [place] [address] Hematology/Oncology 03/27/[address] [place] [address] Registered Dietitian Nutrition 04/03/24 Jackie Silverio LSW Kettle Worker 04/07/24 FOR RECORDS PERTAINING TO PATIENTS WHO [...] BE BASED ON THE PRIMARY CLINICAL RECORDS. [email or web address] [facility]. provides no warranty or guarantee of the accuracy or completeness of information in this document.
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
--- NOTE | 2024-04-14 23:16 | XR_ITS ---
The [address] [address] Patient Name: KAYA SCHILLING MRN: [id number] date: 1965 Sex: F Assigned Patient Location: ER Current Patient Location: ER Accession/Order Number: [id number] Exam Date: 04/14/2024 23:40 Report Date: 04/15/2024 00:49 At the request of: JACKIE VINCENT Procedure: XR abdomen min 2V EXAM: PLAIN FILM OF THE ABDOMEN HISTORY: Abdominal pain. COMPARISON: None. TECHNIQUE: 2 views of the abdomen/pelvis submitted for review. FINDINGS: Lines and Tubes: None. Free air: None. The bowel gas pattern is nonobstructive. There are no abnormal calcifications. However, evaluation of the renal shadows is limited due to overlying bowel gas. No portal venous air. Osseous structures do not demonstrate any acute abnormality. XR/XR abdomen min 2V IMPRESSION: 1. Nonobstructive bowel gas pattern. 2. Minimal retention of stool. Electronically authenticated by: SHARON LEWIS Date: 04/15/2024 00:49
[2024-04-14] MEDS: FENTANYL CITRATE/PF 100 MCG/2 ML VIAL IV (23:54)
[2024-04-14] MEDS: PROMETHAZINE HCL 25 MG in 0.9 % SODIUM CHLORIDE 50 ML 204 MG IV (23:54)
[2024-04-14] MEDS: 0.9 % SODIUM CHLORIDE 1,000 ML 999 ML IV (23:54)
[2024-04-15 00:12] LABS: Basophils Percent Auto 0.6 % (0.2-2.0); Eosinophils Absolute Auto 0.2 10^3/uL (0.0-0.7); Eosinophils Percent Auto 2.1 % (0.9-7.0); Hematocrit 29.4 % (36.0-48.0); Hemoglobin 9.2 g/dL (12.0-16.0); Immature Granulocytes Abs Auto 0.02 10^3/uL (0.00-0.03); Immature Granulocytes Pct Auto 0.3 % (0.0-0.5); Lymphocytes Absolute Auto 1.9 10^3/uL (1.2-3.8); Lymphocytes Percent Auto 27.2 % (20.5-60.0); Mean Corpuscular HGB Conc 31.3 g/dL (29.9-35.2); Mean Corpuscular Hemoglobin 32.7 pg (26.7-34.0); Mean Corpuscular Volume 104.6 fL (81.0-99.0); Mean Platelet Volume 9.3 fL (9.5-13.5); Monocytes Absolute Auto 0.7 10^3/uL (0.3-0.8); Monocytes Percent Auto 9.6 % (1.7-12.0); Neutrophils Absolute Auto 4.3 10^3/uL (1.4-6.5); Neutrophils Percent Auto 60.2 % (43.0-75.0); Platelet Count 466 10^3/uL (150-450); Red Blood Count 2.81 10^6/uL (4.20-5.40); Red Cell Distribution Width 16.9 % (11.0-15.0); White Blood Count 7.1 10^3/uL (4.0-11.0)
[2024-04-15 00:25] LABS: Alanine Aminotransferase 21 U/L (14-59); Albumin Globulin Ratio 0.8; Albumin Level 3.4 g/dL (3.4-5.0); Alkaline Phosphatase 116 U/L (46-116); Anion Gap 12.9; Aspartate Amino Transferase 29 U/L (15-37); Bilirubin Total 0.6 mg/dL (0.2-1.0); Calcium 10.7 mg/dL (8.5-10.1); Carbon Dioxide 23.4 mmol/L (21.0-32.0); Chloride 98 mmol/L (98-107); Estimated GFR (African America 53 (>=60); Estimated GFR (Non-African Ame 44 (>=60); Globulin 4.3 g/dL; Glucose 146 mg/dL (74-106); Potassium 3.3 mmol/L (3.5-5.1); Sodium 131 mmol/L (136-145); Total Protein 7.7 g/dL (6.4-8.2)
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
== END 2024-04-15 01:40 | disposition home or self-care (01) ==
PROVIDERS: Emergency Provider Internal Medicine; PCP Family Medicine
DX: R11.2 Nausea with vomiting, unspecified (principal); C16.9 Malignant neoplasm of stomach, unspecified
CPT/HCPCS: 36415; 74019; 80053; 85025; 96361; 96365; 96375; 99285; J2250; J3010

== ENCOUNTER 2024-04-26 11:43 | Emergency (ER) | payer OTHER, SELFPAY ==
[2024-04-26 11:46] VITALS: BP 150/99; PULSE 115; TEMP 36.4; O2SAT 100; BMI 19.1
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
[2024-04-26] MEDS: 0.9 % SODIUM CHLORIDE 1,000 ML 999 ML IV (12:01)
[2024-04-26] MEDS: KETOROLAC TROMETHAMINE 30 MG/ML VIAL 15 MG IVP (12:03)
[2024-04-26] MEDS: DICYCLOMINE HCL 20 MG/2 ML VIAL IM (12:03)
--- NOTE | 2024-04-26 12:12 | CT_ITS ---
[address] [address] Patient Name: KAYA SCHILLING MRN: [id number] date: 1965 Sex: F Assigned Patient Location: ER Current Patient Location: [facility] Accession/Order Number: [id number] Exam Date: 04/26/2024 13:05 Report Date: 04/26/2024 14:10 At the request of: DHIRAJ PEREZ Procedure: CT angio abdomen pelvis EXAM: CT angio chest, CT angio abdomen pelvis HISTORY: pain COMPARISON: 02/13/2024 TECHNIQUE: Axial CT imaging was performed with and without contrast through the chest, abdomen, and pelvis, utilizing CTA protocol. Multiplanar reformats were performed. Dose reduction techniques were achieved by using automated exposure control and/or adjustment of mA and/or kV according to patient size and/or use of iterative reconstruction technique. CHEST FINDINGS: Lungs: No consolidation, pneumothorax, or effusion. Airways: Normal. Mediastinum: No adenopathy. Aorta: No aneurysm. Cardiac: Normal size. No pericardial effusion. Pulmonary vasculature: There are foci of nonocclusive filling defect in the left upper proximal segment and interlobar of the right pulmonary artery (series 4, image 37, 50 and 55), may represent residual chronic pulmonary embolism. Bones: No acute bony abnormality. Axilla: No adenopathy. Thyroid gland: No abnormality demonstrated on provided imaging. Soft tissues: Unremarkable. Additional findings: No acute finding. ABDOMEN AND PELVIS FINDINGS: GI upper: Unremarkable. Liver: Normal size and contour. Gallbladder: No significant abnormality. No cholelithiasis. Biliary system: No intra or extrahepatic biliary ductal dilatation. Spleen: Normal size. Pancreas: Unremarkable. Adrenal glands: Right adrenal gland is normal. Nodular thickening of left adrenal gland, measuring 2 cm, suspicious for metastasis. Kidneys/ureters: Normal contours. No hydronephrosis. No nephrolithiasis or ureterolithiasis. Lymph Nodes: Interval increase in size of periportal, peripancreatic and periaortic lymph nodes, encasing celiac artery, example left periaortic lymph node, now measures 2.5 cm (previously was 1 cm). Unchanged right periaortic lymph node measuring 3.6 cm. Small bowel: No wall thickening or dilatation. Colon: No wall thickening or dilatation. Appendix: No findings of appendicitis. Peritoneal cavity: No pneumoperitoneum. Moderate volume pelvic free fluid. Lower : Unremarkable. Bones: No acute bony abnormality. Soft tissues: No acute finding. Additional findings: None. VASCULAR FINDINGS: CTA CHEST: Pulmonary vasculature: Normal morphology. Coronary arteries: No variant anatomy is demonstrated. No significant atherosclerotic disease. Aorta: No aneurysm, occlusion, or dissection. No significant atherosclerotic disease. Atherosclerotic: No significant atherosclerotic disease. Aortic branches: Normal three-vessel configuration.Right subclavian: Widely patent where visualized. Right common carotid: Widely patent where visualized. Left common carotid: Widely patent where visualized. Left subclavian: Widely patent where visualized. CTA ABDOMEN AND PELVIS: Aorta: No aneurysm, dissection, or occlusion. No significant atherosclerotic disease. Right renal artery: Widely patent. Left renal artery: Widely patent. Celiac artery: Widely patent. Superior mesenteric artery: Widely patent. Inferior mesenteric artery: Widely patent. Right: Common iliac artery: Widely patent. External iliac artery: Widely patent. Common femoral artery: Widely patent. Internal iliac artery: Widely patent. Left: Common iliac artery: Widely patent. External iliac artery: Widely patent. Common femoral artery: Widely patent. Internal iliac artery: Widely patent. CT/CT angio abdomen pelvis IMPRESSION: 1. No evidence of dissection, aneurysm, or occlusion. foci of nonocclusive filling defect in the left upper proximal segment and interlobar of the right pulmonary artery, may represent residual chronic pulmonary embolism. 2. Moderate volume pelvic free fluid. 3. Right adrenal gland is normal. Nodular thickening of left adrenal gland, measuring 2 cm, suspicious for metastasis. 4. Interval increase in size of periportal, peripancreatic and periaortic lymph nodes, encasing celiac artery, example left periaortic lymph node, now measures 2.5 cm (previously was 1 cm). Unchanged right periaortic lymph node measuring 3.6 cm. Electronically authenticated by: ZORA BROOKS Date: 04/26/2024 14:10
--- NOTE | 2024-04-26 12:12 | CT_ITS ---
[address] [address] Patient Name: KAYA SCHILLING MRN: [id number] date: 1965 Sex: F Assigned Patient Location: ER Current Patient Location: .[facility] Accession/Order Number: [id number] Exam Date: 04/26/2024 13:05 Report Date: 04/26/2024 14:10 At the request of: DHIRAJ PEREZ Procedure: CT angio chest EXAM: CT angio chest, CT angio abdomen pelvis HISTORY: pain COMPARISON: 02/13/2024 TECHNIQUE: Axial CT imaging was performed with and without contrast through the chest, abdomen, and pelvis, utilizing CTA protocol. Multiplanar reformats were performed. Dose reduction techniques were achieved by using automated exposure control and/or adjustment of mA and/or kV according to patient size and/or use of iterative reconstruction technique. CHEST FINDINGS: Lungs: No consolidation, pneumothorax, or effusion. Airways: Normal. Mediastinum: No adenopathy. Aorta: No aneurysm. Cardiac: Normal size. No pericardial effusion. Pulmonary vasculature: There are foci of nonocclusive filling defect in the left upper proximal segment and interlobar of the right pulmonary artery (series 4, image 37, 50 and 55), may represent residual chronic pulmonary embolism. Bones: No acute bony abnormality. Axilla: No adenopathy. Thyroid gland: No abnormality demonstrated on provided imaging. Soft tissues: Unremarkable. Additional findings: No acute finding. ABDOMEN AND PELVIS FINDINGS: GI upper: Unremarkable. Liver: Normal size and contour. Gallbladder: No significant abnormality. No cholelithiasis. Biliary system: No intra or extrahepatic biliary ductal dilatation. Spleen: Normal size. Pancreas: Unremarkable. Adrenal glands: Right adrenal gland is normal. Nodular thickening of left adrenal gland, measuring 2 cm, suspicious for metastasis. Kidneys/ureters: Normal contours. No hydronephrosis. No nephrolithiasis or ureterolithiasis. Lymph Nodes: Interval increase in size of periportal, peripancreatic and periaortic lymph nodes, encasing celiac artery, example left periaortic lymph node, now measures 2.5 cm (previously was 1 cm). Unchanged right periaortic lymph node measuring 3.6 cm. Small bowel: No wall thickening or dilatation. Colon: No wall thickening or dilatation. Appendix: No findings of appendicitis. Peritoneal cavity: No pneumoperitoneum. Moderate volume pelvic free fluid. Lower : Unremarkable. Bones: No acute bony abnormality. Soft tissues: No acute finding. Additional findings: None. VASCULAR FINDINGS: CTA CHEST: Pulmonary vasculature: Normal morphology. Coronary arteries: No variant anatomy is demonstrated. No significant atherosclerotic disease. Aorta: No aneurysm, occlusion, or dissection. No significant atherosclerotic disease. Atherosclerotic: No significant atherosclerotic disease. Aortic branches: Normal three-vessel configuration.Right subclavian: Widely patent where visualized. Right common carotid: Widely patent where visualized. Left common carotid: Widely patent where visualized. Left subclavian: Widely patent where visualized. CTA ABDOMEN AND PELVIS: Aorta: No aneurysm, dissection, or occlusion. No significant atherosclerotic disease. Right renal artery: Widely patent. Left renal artery: Widely patent. Celiac artery: Widely patent. Superior mesenteric artery: Widely patent. Inferior mesenteric artery: Widely patent. Right: Common iliac artery: Widely patent. External iliac artery: Widely patent. Common femoral artery: Widely patent. Internal iliac artery: Widely patent. Left: Common iliac artery: Widely patent. External iliac artery: Widely patent. Common femoral artery: Widely patent. Internal iliac artery: Widely patent. CT/CT angio chest IMPRESSION: 1. No evidence of dissection, aneurysm, or occlusion. foci of nonocclusive filling defect in the left upper proximal segment and interlobar of the right pulmonary artery, may represent residual chronic pulmonary embolism. 2. Moderate volume pelvic free fluid. 3. Right adrenal gland is normal. Nodular thickening of left adrenal gland, measuring 2 cm, suspicious for metastasis. 4. Interval increase in size of periportal, peripancreatic and periaortic lymph nodes, encasing celiac artery, example left periaortic lymph node, now measures 2.5 cm (previously was 1 cm). Unchanged right periaortic lymph node measuring 3.6 cm. Electronically authenticated by: ZORA BROOKS Date: 04/26/2024 14:10
[2024-04-26 12:29] LABS: Hematocrit 26.2 % (36.0-48.0); Hemoglobin 8.7 g/dL (12.0-16.0); Mean Corpuscular HGB Conc 33.2 g/dL (29.9-35.2); Mean Corpuscular Hemoglobin 33.2 pg (26.7-34.0); Mean Platelet Volume 9.2 fL (9.5-13.5); Platelet Count 294 10^3/uL (150-450); Red Blood Count 2.62 10^6/uL (4.20-5.40); Red Cell Distribution Width 16.3 % (11.0-15.0); White Blood Count 4.1 10^3/uL (4.0-11.0)
[2024-04-26 12:50] LABS: Alanine Aminotransferase 15 U/L (14-59); Albumin Globulin Ratio 0.8; Albumin Level 2.9 g/dL (3.4-5.0); Alkaline Phosphatase 86 U/L (46-116); Anion Gap 14.7; Aspartate Amino Transferase 21 U/L (15-37); BUN Creatinine Ratio 10.9; Bilirubin Total 0.7 mg/dL (0.2-1.0); Calcium 8.7 mg/dL (8.5-10.1); Carbon Dioxide 21.6 mmol/L (21.0-32.0); Chloride 104 mmol/L (98-107); Estimated GFR (African America >60 (>=60); Estimated GFR (Non-African Ame 56 (>=60); Globulin 3.6 g/dL; Glucose 162 mg/dL (74-106); Lactate/Lactic Acid 1.1 mmol/L (0.4-2.0); Potassium 3.3 mmol/L (3.5-5.1); Sodium 137 mmol/L (136-145); Total Protein 6.5 g/dL (6.4-8.2); Troponin I High Sensitivity 7.2 pg/mL (4.0-51.3)
[2024-04-26 12:51] LABS: Lymphocytes Absolute Manual 0.41 10^3/uL (1.20-3.80); Monocytes Absolute Manual 0.16 10^3/uL (0.30-0.80); Segmented Neut Absolute Manual 3.52 10^3/uL (1.4-6.5)
--- NOTE | 2024-04-26 13:04 | PC.NURSE ---
Pt would like referral for palliative/hospice care. Afsaneh with social work will be coming down with information.
--- NOTE | 2024-04-26 13:05 | SWNOTE1 ---
SW received a phone call from ED nurse and pt is interested in information about palliative/hospice care. SW to bring down resources.
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
[2024-04-26 15:02] VITALS: BP 150/73; PULSE 87; O2SAT 98
[2024-04-26] MEDS: POTASSIUM CHLORIDE 10 MEQ ER TABLET 40 MEQ PO (15:24)
== END 2024-04-26 15:35 | disposition home or self-care (01) ==
PROVIDERS: Emergency Provider Emergency Medicine; PCP Family Medicine
DX: R10.9 Unspecified abdominal pain (principal); K59.00 Constipation, unspecified; G89.29 Other chronic pain; D64.9 Anemia, unspecified; E87.6 Hypokalemia; C16.9 Malignant neoplasm of stomach, unspecified
CPT/HCPCS: 36415; 71275; 74174; 80053; 83605; 83690; 84484; 85007; 85027; 96372; 96374; 99285; J0500; J1885; Q9967

== ENCOUNTER 2024-04-30 18:31 | Emergency (ER) | payer OTHER, SELFPAY ==
[2024-04-30] VITALS (47 sets, daily range): BP systolic 111–179; BP diastolic 50–99; PULSE 83–120; TEMP 36.4–37; O2SAT 93–100; BMI 18.3
--- OUTSIDE RECORDS SUMMARY | 2024-04-30 18:40 | XMS_ITS | CCD ---
Author Organization [facility]ini[facility] Care Team Providers Care Gun Stock Checker Name Role Phone Brynn Holliday Unavailable Neo Calhoun Unavailable [phone] Kostas Steward DO Primary Care Provider Kostas Steward DO Primary Care Provider PROVIDER, UNKNOWN Attending Unavailable PROVIDER, UNKNOWN Admitting Unavailable BIN, DR KOSTAS Hough Primary Care Unavailable ROYAL RAMIRES Consulting Unavailable ROYAL RAMIRES Attending Unavailable ROYAL RAMIRES Admitting Unavailable BIN, DR KOSTAS Hough Primary Care Unavailable ARTURO, DR KARINA Hart Attending Unavailable ARTURO, DR KARINA Hart Admitting Unavailable CEDAR, DR JUSTINA Cardoso Consulting Unavailable ARTURO, DR [...] e FurKostas echavarria DO Primary Care Provider [phone] Kostas Steward DO Primary Care Provider KOSTAS STEWARD Referring Unavailable APRILLOKOSTAS NAVAS Primary Care Unavailable CONG MONTANO Admitting Unavailable CONG MONTANO Attending Unavailable KOSTAS STEWARD Primary Care Unavailable CONG MONTANO Attending Unavailable CONG MONTANO Referring Unavailable APRILLONG, KOSTAS Hough Primary Care Unavailable MINE BENTON Attending Unavailable APRILLONGKOSTAS Primary Care Unavailable Brandt VAN, Belen Unavailable ANNA MARIE MONGE Attending Unavailable KOSTAS [...] Unavailable FURLONG, KOSTAS G Primary Care Unavailable ABDULLAHILUISA BRAR Attending Unavailable FURLONG, KOSTAS G Referring Unavailable [...] Primary Care Unavailable Erendira Aguillon RD Unavailable [phone] Jackie Art Unavailable Unavailable Dajuan Whaley Attending Unavailab le Dajuan Whaley Admitting Unavailab le Shaikh [facility] Primary [facility] Unavailable Manny CABLE TELEVISION LINE TECHNICIAN.Gisselle WESLEY Unavailable [phone] Beto Vivar MD Unavailable [phone] Cathleen SAHNI, Brea Unavailable [phone] Uday SAHNI, April Denise Unavailable Unavail able [facility] CABLE TELEVISION LINE TECHNICIAN.Lillie WESLEY Unavailable FURLONG, KOSTAS G Referring Unavailable FURLONG, KOSTAS G Primary Care Unavailable FURLONG, KOSTAS G Referring Unavailable FURLONG, KOSTAS G Primary Care Unavailable BETO VIVAR Referring Unavailable FURLONG, KOSTAS G Primary Care Unavailable BETO VIVAR Referring Unavailable FURLONG, KOSTAS G Primary Care Unavailable ERENDIRA AGUILLON Attending UnavailBETO Perea Referring Unavailable FURLONG, KOSTAS JARVIS Primary Care Unavailab le FURLONG, KOSTAS JARVIS Primary Care Unavailab BETO Kimball Referring Unavailable FURLONG, KOSTAS JARVIS Primary Care Unavailab le BETO VIVAR Referring Unavailable FURLONG, KOSTAS JARVIS Primary Care Unavailab BETO Kimball Referring Unavailable FURLONG, KOSTAS JARVIS Primary Care Unavailab le BUNDRIDFREDDY, LILLIE J Attending UnavailBETO Perea Referring Unavailable FURLONG, KOSTAS JARVIS Primary Care Unavailab BETO Kimball Referring Unavailable FURLONG, KOSTAS JARVIS Primary Care Unavailab le FURLONG, KOSTAS JARVIS Primary Care Unavailab BETO Kimball Attending Unavailable BETO VIVAR Referring Unavailable FURLONG, KOSTAS JARVIS Primary Care Unavailab BETO Kimball Referring Unavailable FURLONG, KOSTAS JARVIS Primary Care Unavailab le FURLONG, KOSTAS JARVIS Primary Care Unavailab BETO Kimball Attending Unavailable APRILLONG, KOSTAS JARVIS Referring Unavailab le FURLONG, KOSTAS [...] / oxyCODONE Drug Allergy 5 GI Upset [facility] Butorphanol (1 source) Butorphanol Drug Allergy 4 Vomiting [facility] (8 sources) Butorphanol; Translations: [Stadol] Drug Allergy 4 migraines, vomiting [facility] (20 sources) Acetaminophen / oxyCODONE; Translations: [OXYCODONE-ACETAM INOPHEN] Drug Allergy 5 GI Upset [facility] (20 sources) Butorphanol; Translations: [BUTORPHANOL TARTRATE] Drug Allergy 4 Vomiting [facility] (2 sources) Acetaminophen / oxyCODONE Drug Allergy [facility] (8 sources) vortioxetine; Translations: [VORTIOXETINE] Drug Allergy [address] [email or web address] (1 source) Butorphanol Drug Allergy 1 [facility] Repository Medications Current Medications Medication Drug Class(es) Dates Sig (Normalized) Sig (Original) acetaminophen 325 mg / HYDROcodone bitartrate 10 mg oral tablet (20 sources) Opioid Agonist Start: 05-02-2024 End: 05-17-2024 take 1 tablet by mouth every six hours as needed for pain HYDROcodone-Aceta minophen (NORCO) 10-325 mg per tablet Indications: 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 Patient should start on May 02, 2024. 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 60 tablet 04/14/2024 04/28/2024 Discontinued Start: 04-10-2024 End: 04-14-2024 take 1 tablet [...] three times daily as needed. Indications: Anxiety 10/18/2013 Active take 1 tablet by mouth [...] Take 10 mg by mouth as directed. 02/14/2024 Active Budesonide / formoterol (6 sources) Corticosteroid, beta2-Adrenergic Agonist budesonide-formoter oL (SYMBICORT) 160-4.5 mcg/actuation inhaler Inhale 2 puffs every 12 (twelve) hours. 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 4 Patch 04/15/2024 04/24/2024 Discontinued CAPLYTA 10.5 mg capsule (6 sources) Start: 08-12-2022 take 1 capsule by mouth in the morning CAPLYTA 10.5 mg capsule Take 1 capsule by mouth in the morning. 0 08/12/2022 Active dapagliflozin 10 mg oral tablet (6 sources) Sodium-Glucose Cotransporter 2 Inhibitor Start: 03-18-2023 take 1 tablet by mouth in the morning dapagliflozin propanediol (FARXIGA) 10 mg tablet Indications: Type 2 diabetes mellitus with diabetic polyneuropathy, without long-term current use of insulin ([facility]) Take 1 tablet (10 mg total) by mouth in the morning. 30 tablet 5 03/18/2023 Active empagliflozin 25 mg oral tablet (6 sources) Sodium-Glucose Cotransporter 2 Inhibitor take 1 tablet by mouth every twenty-four hours JARDIANCE 25 mg 1 TABLET orally ONCE A DAY Active enteric contrast (will be provided with radiology test) (2 sources) Start: 03-23-2024 End: 03-24-2024 enteric contrast (will be provided with radiology [...] mg oral tablet (20 sources) Sulfonylurea Start: 08-03-2022 take 1 tablet by mouth in the [...] Take 10 mg by mouth once daily. 04/22/2022 Active Comment on above: Take 10 [...] spray(s) nasal route three times daily Ipratropium [place] 0.06 % 2 sprays in each nostril [...] mg capsule Take by mouth once daily. Active Comment on above: Take by mouth once d aily. TAKE ONE CAPSULE BY MOUTH DAILY AT APPROXIMATELY THE SAME TIME EACH DAY levothyroxine sodium 0.1 mg oral tablet (20 sources) l-Thyroxine Start: 02-14-20 End: 09-04-20 take 1 tablet by mouth once daily levothyroxine (SYNTHROID) 100 mcg tablet Take 100 mcg by mouth once daily. 02/13/2022 Active Start: 11-27-2020 End: 05-22-2022 take [...] once daily. linaclotide 0.29 mg oral capsule (20 sources) Guanylate Cyclase-C Agonist Start: 4 End: [...] TWO TABLETS BY MOUTH IN THE EVENING 05/13/2022 Active Start: 10-18-2013 End: 05-22-2022 take 2 capsules by mouth twice daily in the evening LITHIUM CARBONATE 600 mg capsule Indications: Anemia , Iron deficiency Take 300 mg by mouth twice daily with meals. One in AM and Two in PM 0 10/18/2013 05/22/2022 Discontinued (Changing Therapy/Dosage Form) Poth Carbonat e 150 MG 1 capsule Orally [...] sources) Angiotensin 2 Receptor Arturo Start: 05-10-20 take 1 tablet by mouth once daily losartan (COZAAR) 100 mg tablet Take 100 mg by mouth once daily. 05/10/2022 Active Comment on above: Take 100 [...] oral tablet (20 sources) Biguanide Start: 02-15-20 End: 10-25-19 24 take 1 tablet by mouth twice daily metFORMIN (GLUCOPHAGE) 1,000 mg tablet Take 1,000 mg by mouth twice daily. 02/14/2018 Active Comment on above: Take 1,000 mg by corey th twice daily. montelukast 10 mg oral tablet (20 sources) Leukotriene Receptor Antagonist Start: 04-18-20 montelukast (SINGULAIR) 10 mg tablet Take 10 mg by mouth as needed. 04/18/2022 Active Comment on above: Take 10 mg by mouth once daily. naloxone hydrochloride 40 mg/ml nasal spray (20 sources) Opioid Antagonist Start: 04-14-20 24 naloxone 4 mg/actuation nasal spray (NARCAN) Use 1 spray in one nostril as needed for overdose. May repeat every 2 to 3 min in alternating nostrils until medical assistance is available 1 Each 1 04/14/2024 Active OLANZapine 10 mg oral tablet (20 sources) Atypical Antipsychotic Start: 04-14-20 End: 05-14-20 take 1 tablet by mouth once daily at bedtime OLANZapine (ZYPREXA) 10 mg tablet Indications: Weight loss , Anxiety with depression , Nausea Take 1 tablet by mouth daily at bedtime. 30 tablet 1 04/14/2024 05/14/2024 Active ondansetron 8 mg oral tablet (11 sources) Serotonin-3 Receptor Antagonist Start: 04-21-20 take 1 tablet by mouth every eight hours as needed ondansetron (ZOFRAN) 8 mg tablet Take 1 tablet by mouth every 8 hours as needed for nausea/vomiting. 90 tablet 1 04/21/2024 Active pantoprazole 20 mg delayed release oral tablet (6 sources) Proton Pump Inhibitor take 1 tablet by mouth once daily as needed Pantoprazole Sodium 20 MG 1 tablet Orally Once a day prn Active polyethylene glycol 3350 67417 mg powder for oral solution (20 sources) Osmotic Laxative Start: 03-07-20 polyethylene glycol 3350 17 gram/dose powder Take 17 g by mouth. 03/07/2024 Active promethazine hydrochloride 25 mg oral [...] hours as needed for nausea/vomiting. 120 tablet 04/14/2024 05/14/2024 Active Comment on above: Take 25 mg by mouth every 6 hours as needed. zolpidem tartrate 5 mg oral tablet (20 sources) gamma-Aminobutyric Acid-ergic Agonist Start: 02-19-2018 take 1 tablet by mouth once daily at bedtime as needed for sleep zolpidem (AMBIEN) 5 mg tablet TAKE ONE TABLET BY MOUTH DAILY AT BEDTIME NEEDED FOR SLEEP 05/13/2022 Active End: 05-22-2022 take 1 tablet [...] 03/23/2024 Discontinued Comment on above: as needed. NaCl 0.9% 1,000 mL (1 source) Start: 04-18-20 End: 04-18-20 NaCl 0.9% 1,000 mL omeprazole 20 mg delayed release oral capsule (20 sources) Proton Pump Inhibitor Start: 05-17-20 End: 04-14-20 omeprazole (PRILOSEC) 20 mg capsule take 1 capsule by mouth once alejandra ly pamidronate 30 mg in NaCl 0.9% 500 mL (AREDIA) (1 source) Start: 04-18-2024 End: 04-18-2024 pamidronate 30 mg in NaCl 0.9% 500 mL (AREDIA) vitamin b12 1 mg/ml injectable solution (5 sources) Vitamin B12 Start: 04-18-2024 End: 04-18-2024 cyanocobalamin 1,000 mcg injection Start: 04-14-2024 End: 04-14-2024 cyanocobalamin 1,000 mcg inj ection Start: 04-06-2024 End: 04-06-2024 cyanocobalamin 1,000 mcg [...] LOSS] Onset: 3 Chronic Cancer of stomach (20 sources) Malignant tumor of cardia; Translations: [Malignant [...] digestive system] Onset: 4 Episodic Nutritional deficiencies (20 sources) Deficiency of macronutrients; Translations: [Unspecified severe protein-calorie malnutrition] Onset: 4 04-03-2024 Chronic Osteoarthritis (20 sources) Arthritis; Translations: [Unspecified osteoarthritis, unspecified site] Onset: 2 02-21-2015 Chronic Other acquired deformities (20 sources) Scoliosis deformity of spine; Translations: [Scoliosis, unspecified] Onset: 2 02-21-2015 Chronic Other aftercare (5 sources) Other terminal manager (current) drug therapy; Translations: [OTH JAIL CURRENT DRUG THERAPY] Onset: 2 Episodic Other aftercare (1 source) terminal block assembler (current) use of oral hypoglycemic drugs; Translations: [BENEFITS SPECIALIST RECRUITER USE ORAL HYPOGLYCEMIC DX] Onset: 3 Episodic Other aftercare (3 sources) Under care of palliative care physician; Translations: [Encounter for palliative care] 04-14-2024 Episodic Other aftercare (2 sources) Drug therapy finding; Translations: [FDC (current) use of opiate analgesic] 04-14-2024 Episodic [...] disorders] 01-29-2021 Episodic Other nervous system disorders (6 sources) Pain due to neoplastic disease; Translations: [Neoplasm related pain (acute) (chronic)] 03-23-2024 Chronic Other nervous system disorders (1 source) Neoplasm related pain (acute) (chronic); Translations: [Cancer related pain] Onset: 4 Chronic Other non-epithelial cancer of skin (1 source) Personal history of other malignant neoplasm of skin; Translations: [PERSONAL HX OTH MALIG NEOPLASM SKIN] Onset: 3 Episodic Other nutritional; endocrine; and metabolic disorders (20 sources) Hypercalcemia; Translations: [Hypercalcemia] Onset: 3 08-23-2023 [...] initial encounter] Onset: 3 Episodic Thyroid disorders (18 sources) Hypothyroidism; Translations: [Hypothyroidism, unspecified] Onset: 2 [...] [PROC AND TX NOT CARRIED OUT PT [facility] RSN] Onset: 09-29-2022 Episodic Screening and history [...] Test Name Value Interpretation [facility] ([id number]) 1965 F Date Time Provider Department 04/26/24 BAKARI MORRIS AVXRPR During your visit today, we recorded the following information about you: Bakari Morris, BORA 04/26/2024 12:48 PM Signed Returning patients call regarding post op care from port placement. No answer. Left message on home phone. Called mobile, no answer, and unable to leave message due to a full mailbox. Allergies As of Date: 04/26/2024 Noted Allergy Reaction PERCOCET (OXYCODONE-ACETAMINOPHE N)02/21/2015 8 - GI Upset STADOL (BUTORPHANOL TARTRATE) 10/26/2013 11 - Vomiting Comments: incoherent Date Reviewed: 04/25/2024 Reviewed by: Demetria Zamudio, BORA - Fully Assessed Reason for Visit: Returning Patient's Call [[phone]] Prescriptions as of 04/26/2024 - buprenorphine (BUTRANS) 20 mcg/hour transdermal patch Apply 1 Patch as directed one time a week for 30 days. - ondansetron (ZOFRAN) 8 mg tablet Take 1 tablet by mouth every 8 hours as needed for nausea/vomiting. - promethazine (PHENERGAN) 25 mg tablet Take 1 tablet by mouth every 6 hours as needed for nausea/vomiting. - linaCLOtide (LINZESS) 290 mcg capsule Take 1 capsule by mouth once daily. - OLANZapine (ZYPREXA) 10 mg tablet Take 1 tablet by mouth daily at bedtime. - naloxone 4 mg/actuation nasal spray (NARCAN) Use 1 spray in one nostril as needed for overdose. May repeat every 2 to 3 min in alternating nostrils until medical assistance is available - HYDROcodone-Acetaminoph en (NORCO) 10-325 mg per tablet Take 1 tablet by mouth every 6 hours as needed for pain for up to 15 days. - apixaban (ELIQUIS) 5 mg tab(s) Take 10 mg by mouth as directed. - polyethylene glycol 3350 17 gram/dose powder Take 17 g by mouth. - zolpidem (AMBIEN) 5 mg tablet TAKE ONE TABLET BY MOUTH DAILY AT BEDTIME NEEDED FOR SLEEP - lithium carbonate (ESKALITH) 300 mg capsule TAKE ONE TABLET BY MOUTH IN THE MORNING AND TWO TABLETS BY MOUTH IN THE EVENING - levothyroxine (SYNTHROID) 100 mcg tablet Take 100 mcg by mouth once daily. - glipiZIDE (GLUCOTROL XL) 10mg 24 hr tablet Take 10 mg by mouth once daily. - losartan (COZAAR) 100 mg tablet Take 100 mg by mouth once daily. - montelukast (SINGULAIR) 10 mg tablet Take 10 mg by mouth as needed. - metFORMIN (GLUCOPHAGE) 1,000 mg tablet Take 1,000 mg by mouth twice daily. - levomilnacipran ER (FETZIMA ER) 40 mg capsule Take by mouth once daily. - ALPRAZOLAM 2 mg tablet Take 2 mg by mouth three times daily as needed. 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 Patient transferred to this nurse crying and moaning continuously saying she had her port placed and now having excruciating abdominal pain. This nurse unable to speak with patient due to her continued crying and moaning. Advised patient she needs to call 911 or go the the near ED. Patient continue to cry and moan loudly then hung up the phone on this nurse. Ann, I feel patient is mentally unstable and worsening. Did you want to reach out to her Psych team and PCP to come up with a plan for her? April Frye RN April 26, 2024 8:23 AM April Frye RN 04/26/2024 8:42 AM Signed Collaborated with Ann Richter CNP. She will reach out to patient psychiatric provider and PCP regarding patient's unstable mental status. Plan will also be for Ann WESLEY to present patient at our [facility] meeting. April Frye RN April 26, 2024 8:42 AM Allergies As of Date: 04/26/2024 Noted Allergy Reaction PERCOCET (OXYCODONE-ACETAMINOPHE N)02/21/2015 8 - GI Upset STADOL (BUTORPHANOL TARTRATE) 10/26/2013 11 - Vomiting Comments: incoherent Date Reviewed: 04/25/2024 Reviewed by: Demetria Zamudio RN - Fully Assessed Reason for Visit: Care Coordination [3491] Prescriptions as of 04/26/2024 - buprenorphine (BUTRANS) 20 mcg/hour transdermal patch Apply 1 Patch as directed one time a week for 30 days. - ondansetron (ZOFRAN) 8 mg tablet Take 1 tablet by mouth every 8 hours as needed for nausea/vomiting. - promethazine (PHENERGAN) 25 mg tablet Take 1 tablet by mouth every 6 hours as needed for nausea/vomiting. - linaCLOtide (LINZESS) 290 mcg capsule Take 1 capsule by mouth once daily. - OLANZapine (ZYPREXA) 10 mg tablet Take 1 tablet by mouth daily at bedtime. - naloxone 4 mg/actuation nasal spray (NARCAN) Use 1 spray in one nostril as needed for overdose. May repeat every 2 to 3 min in alternating nostrils until medical assistance is available - HYDROcodone-Acetaminoph en (NORCO) 10-325 mg per tablet Take 1 tablet by mouth every 6 hours as needed for pain for up to 15 days. - apixaban (ELIQUIS) 5 mg tab(s) Take 10 mg by mouth as directed. - polyethylene glycol 3350 17 gram/dose powder Take 17 g by mouth. - zolpidem (AMBIEN) 5 mg tablet TAKE ONE TABLET BY MOUTH DAILY AT BEDTIME NEEDED FOR SLEEP - lithium carbonate (ESKALITH) 300 mg capsule TAKE ONE TABLET BY MOUTH IN THE MORNING AND TWO TABLETS BY MOUTH IN THE EVENING - levothyroxine (SYNTHROID) 100 mcg tablet Take 100 mcg by mouth once daily. - glipiZIDE (GLUCOTROL XL) 10mg 24 hr tablet Take 10 mg by mouth once daily. - losartan (COZAAR) 100 mg tablet Take 100 mg by mouth once daily. - montelukast (SINGULAIR) 10 mg tablet Take 10 mg by mouth as needed. - metFORMIN (GLUCOPHAGE) 1,000 mg tablet Take 1,000 mg by mouth twice daily. - levomilnacipran ER (FETZIMA ER) 40 mg capsule Take by mouth once daily. - ALPRAZOLAM 2 mg tablet Take 2 mg by mouth three times daily as needed. 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 Requests that you specify which PD-L1 you want. Pembrolizumab, Nivolumab, Atezolizumab...All of them? BORA Weaver Brian R, MD 04/26/2024 10:40 AM Signed All of them please. Based on insurance we cannot predict which agent they will allow. Brea Villagomez RN 04/26/2024 10:43 AM Signed [facility] in Pathology notified. Brea Villagomez RN Allergies As of Date: 04/26/2024 Noted Allergy Reaction PERCOCET (OXYCODONE-ACETAMINOPHE N)02/21/2015 8 - GI Upset STADOL (BUTORPHANOL TARTRATE) 10/26/2013 11 - Vomiting Comments: incoherent Date Reviewed: 04/25/2024 Reviewed by: Demetria Zamudio RN - Fully Assessed Reason for Visit: Care Coordination [3491] Cmt: PD-L1 Question Prescriptions as of 04/26/2024 - buprenorphine (BUTRANS) 20 mcg/hour transdermal patch Apply 1 Patch as directed one time a week for 30 days. - ondansetron (ZOFRAN) 8 mg tablet Take 1 tablet by mouth every 8 hours as needed for nausea/vomiting. - promethazine (PHENERGAN) 25 mg tablet Take 1 tablet by mouth every 6 hours as needed for nausea/vomiting. - linaCLOtide (LINZESS) 290 mcg capsule Take 1 capsule by mouth once daily. - OLANZapine (ZYPREXA) 10 mg tablet Take 1 tablet by mouth daily at bedtime. - naloxone 4 mg/actuation nasal spray (NARCAN) Use 1 spray in one nostril as needed for overdose. May repeat every 2 to 3 min in alternating nostrils until medical assistance is available - HYDROcodone-Acetaminoph en (NORCO) 10-325 mg per tablet Take 1 tablet by mouth every 6 hours as needed for pain for up to 15 days. - apixaban (ELIQUIS) 5 mg tab(s) Take 10 mg by mouth as directed. - polyethylene glycol 3350 17 gram/dose powder Take 17 g by mouth. - zolpidem (AMBIEN) 5 mg tablet TAKE ONE TABLET BY MOUTH DAILY AT BEDTIME NEEDED FOR SLEEP - lithium carbonate (ESKALITH) 300 mg capsule TAKE ONE TABLET BY MOUTH IN THE MORNING AND TWO TABLETS BY MOUTH IN THE EVENING - levothyroxine (SYNTHROID) 100 mcg tablet Take 100 mcg by mouth once daily. - glipiZIDE (GLUCOTROL XL) 10mg 24 hr tablet Take 10 mg by mouth once daily. - losartan (COZAAR) 100 mg tablet Take 100 mg by mouth once daily. - montelukast (SINGULAIR) 10 mg tablet Take 10 mg by mouth as needed. - metFORMIN (GLUCOPHAGE) 1,000 mg tablet Take 1,000 mg by mouth twice daily. - levomilnacipran ER (FETZIMA ER) 40 mg capsule Take by mouth once daily. - ALPRAZOLAM 2 mg tablet Take 2 mg by mouth three times daily as needed. 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) [*04/18/2024 Hypercalcemia of malignancy [E83.52] 04/18/2024 Encounter Status:Closed by BREA VILLAGOMEZ on 04/26/24 [facility] BRIEF OP NOTon 04-25-2024 BRIEF OP NOT HNO ID: [id number] Author: ALEX MASTERSON MD Service: Interventional Radiology Author Type: Physician Type: Brief Op Note Filed: 04/25/2024 12:07 Note Text: BRIEF OPERATIVE / PROCEDURE NOTE LOG ID: [id number] SURGERY/PROCEDURE DATE: 04/25/2024 INCISION/PROCEDURE START TIME: 11:36 AM INCISION CLOSE/PROCEDURE END TIME: 12:02 PM SURGEON(S)/PROCEDURALIS T(S) AND COUNTY COMMISSIONER(S): Surgeons and Role: * Alex Masterson MD - Primary No Additional Staff SURGERY/PROCEDURE(S): Right IJ port placement ANESTHESIA: Procedural Sedation FINDINGS: Patent right IJ vein. ESTIMATED BLOOD LOSS: 2 mls SPECIMENS: None COMPLICATIONS: None IMPLANTS: Right chest port CLOSURE TECHNIQUE: Primary PRE-OP/PRE-PROCEDURE DIAGNOSIS: Gastric cancer POST-OP/POST-PROCEDURE DIAGNOSIS: Same as Preop SIGNATURE: Alex Masterson MD PATIENT NAME: Kaya Schilling DATE: April 25, 2024 TIME: 12:06 PM [facility] HISTORY PHYSICALon HISTORY PHYSICAL HNO ID: [id number] Author: ALEX MASTERSON MD Service: Interventional Radiology Author Type: Physician Type: H&P Filed: 04/25/2024 10:39 Note Text: UPDATED PROCEDURAL SEDATION HISTORY AND PHYSICAL EXAMINATION SERVICE DATE: 04/25/2024 SERVICE TIME: 10:39 AM PHYSICAL EXAM MUST BE COMPLETED ON ADMISSION PROCEDURE: Image guided port placement Procedure Indications: Stomach cancer The History and Physical (completed in the past 30 days) has been reviewed and the patient has been examined. The contents accurately reflect the patient's condition with the following additions or revisions since the HANDP was completed. ASA Class: ASA Class: Patient with mild systemic disease Examination indicates no changes. AIRWAY: Airway Visualization of Uvula: Yes Mouth opening greater than 2 fingerbreadths: Yes Neck Full Range of Motion: Yes LUNGS: Lungs clear to auscultation, Good diaphragmatic excursion CARDIAC: Regular rhythm,Regular rate Provisional Diagnosis/Treatment Plan: Port placement Sedation Goal: Moderate This HANDP can be found in the Electronic Medical Record dated 04/18/2024. 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] * * * * Physician Interpretation * * * * PROCEDURE: VENOUS PORT PLACEMENT Procedural Personnel Attending physician(s): Alex Masterson, PhD Fellow physician(s): None Resident physician(s): None Advanced practice provider(s): None Medical Student(s): None Pre-procedure diagnosis: Gastric cancer Post-procedure diagnosis: Same Indication: Administration of chemotherapy Additional clinical history: None _ PROCEDURE SUMMARY: - Venous access with ultrasound guidance - Tunneled port insertion under fluoroscopic guidance - Additional procedure(s): None PROCEDURE DETAILS: Pre-procedure Consent: Consent obtained with the patient as documented. Medication reconciliation: Done Zeenat-procedure discussion: The appropriate elements of the pre-procedure discussion, safety check list and sign-out were performed. Time out was completed before start of procedure. Preparation (MIPS): The site was prepared and draped using all elements of maximal sterile barrier technique including sterile gloves, sterile gown, cap, mask, large sterile sheet, sterile ultrasound probe cover, hand hygiene and cutaneous antisepsis with 2% chlorhexidine. Medical reason for site preparation exception (MIPS): Not applicable Contrast: Contrast agent: None Contrast volume (mL): 0 Image Guidance: Fluoroscopic and sonographic guidance with digital image storage Radiation/Dose: FLUOROSCOPIC RADIATION SUMMARY: Plane A, Air Kerma: 0.2 mGy Dose Area Product (DAP): 50.7 mGy*cm2 Fluoro Time: 0:00 min:sec Radiation dose exceed 3.5 Gy: No If radiation dose exceeded 3.5 Gy, was counseling and instructional brochure provided: N/A Anesthesia/Sedation: Level of anesthesia/sedation: Moderate sedation (conscious sedation) Anesthesia/sedation administered by: Independent trained observer under attending supervision with continuous monitoring of the patient?s level of consciousness and physiologic status Total intra-service sedation time (minutes): 40 Local anesthesia: 1% lidocaine with 1:200,000 epinephrine Antibiotics and meds: Cefazolin Antibiotic infusion start time: 1053 Prophylactic antibiotic administered: Within 1 hour of procedure start time or 2 hours for vancomycin or fluoroquinolones Additional med: None Additional med: None Start of procedure: 1136 End of procedure: 1202 TECHNIQUE: Patient position: Supine Access Local anesthesia was administered. The vessel was sonographically evaluated and determined to be patent. Real time ultrasound was used to visualize needle entry into the vessel and a permanent image was stored. Vein accessed: Internal jugular vein Access technique: Micropuncture set with 21 gauge needle Venography Indication for venography: Not performed Vein catheterized: Not applicable Findings: Not applicable Port placement An incision was made at the upper chest, a pocket was created, and the catheter was tunneled subcutaneously to the venous access site and trimmed to appropriate length. The port was inserted into the pocket and the catheter was advanced via a peel-away sheath into the vein under fluoroscopic guidance. The port was sutured into the pocket using absorbable suture. Catheter tip location was fluoroscopically verified and a permanent image was stored. Port placed: 8 F BARD PowerPort by - Groshong (distal valved) silicone catheter with pressure injectable titanium port. Catheter flush: Normal saline Closure The access site and incision were closed and sterile dressing(s) were applied. Sponge counts were ascertained. Access site closure technique: Tissue adhesive Incision closure technique: Absorbable suture and tissue adhesive Patient discharged from procedure suite with device accessed: No Additional Details Additional description of procedure: None Equipment details: None Number and Type of Removed Specimens: : N/A Estimated blood loss (mL): Less than 2 Standardized report: SIR_Port_v3 COMPLICATIONS: No immediate complications CONCLUSION: The patient was comfortable and was transferred to the recovery room in stable condition. The procedure was performed by the: attending radiologist, without an nursing home assistant administrator. The attending radiologist performed the following procedural activities: Entire procedure IMPRESSION: INSERTION OF RIGHT-SIDED POWER-INJECTABLE SINGLE-LUMEN TUNNELED CHEST PORT, WITH CATHETER TIP IN THE EXPECTED LOCATION OF THE CAVOATRIAL JUNCTION. PLAN: THE PORT MAY BE USED IMMEDIATELY. RECOMMEND NORMAL SALINE FLUSH INTERVAL OF 90 DAYS WHEN NOT BEING USED. ATTESTATION: Signer name: Alex Masterson MD I attest that I was present for the entire procedure. I reviewe (more content not included)... 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] * * * * Physician Interpretation * * * * PROCEDURE: VENOUS PORT PLACEMENT Procedural Personnel Attending physician(s): Alex Masterson, PhD MD Fellow physician(s): None Resident physician(s): None Advanced practice provider(s): None Medical Student(s): None Pre-procedure diagnosis: Gastric cancer Post-procedure diagnosis: Same Indication: Administration of chemotherapy Additional clinical history: None _ PROCEDURE SUMMARY: - Venous access with ultrasound guidance - Tunneled port insertion under fluoroscopic guidance - Additional procedure(s): None PROCEDURE DETAILS: Pre-procedure Consent: Consent obtained with the patient as documented. Medication reconciliation: Done Zeenat-procedure discussion: The appropriate elements of the pre-procedure discussion, safety check list and sign-out were performed. Time out was completed before start of procedure. Preparation (MIPS): The site was prepared and draped using all elements of maximal sterile barrier technique including sterile gloves, sterile gown, cap, mask, large sterile sheet, sterile ultrasound probe cover, hand hygiene and cutaneous antisepsis with 2% chlorhexidine. Medical reason for site preparation exception (MIPS): Not applicable Contrast: Contrast agent: None Contrast volume (mL): 0 Image Guidance: Fluoroscopic and sonographic guidance with digital image storage Radiation/Dose: FLUOROSCOPIC RADIATION SUMMARY: Plane A, Air Kerma: 0.2 mGy Dose Area Product (DAP): 50.7 mGy*cm2 Fluoro Time: 0:00 min:sec Radiation dose exceed 3.5 Gy: No If radiation dose exceeded 3.5 Gy, was counseling and instructional brochure provided: N/A Anesthesia/Sedation: Level of anesthesia/sedation: Moderate sedation (conscious sedation) Anesthesia/sedation administered by: Independent trained observer under attending supervision with continuous monitoring of the patient?s level of consciousness and physiologic status Total intra-service sedation time (minutes): 40 Local anesthesia: 1% lidocaine with 1:200,000 epinephrine Antibiotics and meds: Cefazolin Antibiotic infusion start time: 1053 Prophylactic antibiotic administered: Within 1 hour of procedure start time or 2 hours for vancomycin or fluoroquinolones Additional med: None Additional med: None Start of procedure: 1136 End of procedure: 1202 TECHNIQUE: Patient position: Supine Access Local anesthesia was administered. The vessel was sonographically evaluated and determined to be patent. Real time ultrasound was used to visualize needle entry into the vessel and a permanent image was stored. Vein accessed: Internal jugular vein Access technique: Micropuncture set with 21 gauge needle Venography Indication for venography: Not performed Vein catheterized: Not applicable Findings: Not applicable Port placement An incision was made at the upper chest, a pocket was created, and the catheter was tunneled subcutaneously to the venous access site and trimmed to appropriate length. The port was inserted into the pocket and the catheter was advanced via a peel-away sheath into the vein under fluoroscopic guidance. The port was sutured into the pocket using absorbable suture. Catheter tip location was fluoroscopically verified and a permanent image was stored. Port placed: 8 F BARD PowerPort by - Groshong (distal valved) silicone catheter with pressure injectable titanium port. Catheter flush: Normal saline Closure The access site and incision were closed and sterile dressing(s) were applied. Sponge counts were ascertained. Access site closure technique: Tissue adhesive Incision closure technique: Absorbable suture and tissue adhesive Patient discharged from procedure suite with device accessed: No Additional Details Additional description of procedure: None Equipment details: None Number and Type of Removed Specimens: : N/A Estimated blood loss (mL): Less than 2 Standardized report: SIR_Port_v3 COMPLICATIONS: No immediate complications CONCLUSION: The patient was comfortable and was transferred to the recovery room in stable condition. The procedure was performed by the: attending radiologist, without an nursing home assistant administrator. The attending radiologist performed the following procedural activities: Entire procedure IMPRESSION: INSERTION OF RIGHT-SIDED POWER-INJECTABLE SINGLE-LUMEN TUNNELED CHEST PORT, WITH CATHETER TIP IN THE EXPECTED LOCATION OF THE CAVOATRIAL JUNCTION. PLAN: THE PORT MAY BE USED IMMEDIATELY. RECOMMEND NORMAL SALINE FLUSH INTERVAL OF 90 DAYS WHEN NOT BEING USED. ATTESTATION: Signer name: Alex Masterson MD I attest that I was present for the entire procedure. I reviewed (more content not included)... 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] * * * * Physician Interpretation * * * * PROCEDURE: VENOUS PORT PLACEMENT Procedural Personnel Attending physician(s): Alex Masterson, PhD Fellow physician(s): None Resident physician(s): None Advanced practice provider(s): None Medical Student(s): None Pre-procedure diagnosis: Gastric cancer Post-procedure diagnosis: Same Indication: Administration of chemotherapy Additional clinical history: None _ PROCEDURE SUMMARY: - Venous access with ultrasound guidance - Tunneled port insertion under fluoroscopic guidance - Additional procedure(s): None PROCEDURE DETAILS: Pre-procedure Consent: Consent obtained with the patient as documented. Medication reconciliation: Done Zeenat-procedure discussion: The appropriate elements of the pre-procedure discussion, safety check list and sign-out were performed. Time out was completed before start of procedure. Preparation (MIPS): The site was prepared and draped using all elements of maximal sterile barrier technique including sterile gloves, sterile gown, cap, mask, large sterile sheet, sterile ultrasound probe cover, hand hygiene and cutaneous antisepsis with 2% chlorhexidine. Medical reason for site preparation exception (MIPS): Not applicable Contrast: Contrast agent: None Contrast volume (mL): 0 Image Guidance: Fluoroscopic and sonographic guidance with digital image storage Radiation/Dose: FLUOROSCOPIC RADIATION SUMMARY: Plane A, Air Kerma: 0.2 mGy Dose Area Product (DAP): 50.7 mGy*cm2 Fluoro Time: 0:00 min:sec Radiation dose exceed 3.5 Gy: No If radiation dose exceeded 3.5 Gy, was counseling and instructional brochure provided: N/A Anesthesia/Sedation: Level of anesthesia/sedation: Moderate sedation (conscious sedation) Anesthesia/sedation administered by: Independent trained observer under attending supervision with continuous monitoring of the patient?s level of consciousness and physiologic status Total intra-service sedation time (minutes): 40 Local anesthesia: 1% lidocaine with 1:200,000 epinephrine Antibiotics and meds: Cefazolin Antibiotic infusion start time: 1053 Prophylactic antibiotic administered: Within 1 hour of procedure start time or 2 hours for vancomycin or fluoroquinolones Additional med: None Additional med: None Start of procedure: 1136 End of procedure: 1202 TECHNIQUE: Patient position: Supine Access Local anesthesia was administered. The vessel was sonographically evaluated and determined to be patent. Real time ultrasound was used to visualize needle entry into the vessel and a permanent image was stored. Vein accessed: Internal jugular vein Access technique: Micropuncture set with 21 gauge needle Venography Indication for venography: Not performed Vein catheterized: Not applicable Findings: Not applicable Port placement An incision was made at the upper chest, a pocket was created, and the catheter was tunneled subcutaneously to the venous access site and trimmed to appropriate length. The port was inserted into the pocket and the catheter was advanced via a peel-away sheath into the vein under fluoroscopic guidance. The port was sutured into the pocket using absorbable suture. Catheter tip location was fluoroscopically verified and a permanent image was stored. Port placed: 8 F BARD PowerPort by - Groshong (distal valved) silicone catheter with pressure injectable titanium port. Catheter flush: Normal saline Closure The access site and incision were closed and sterile dressing(s) were applied. Sponge counts were ascertained. Access site closure technique: Tissue adhesive Incision closure technique: Absorbable suture and tissue adhesive Patient discharged from procedure suite with device accessed: No Additional Details Additional description of procedure: None Equipment details: None Number and Type of Removed Specimens: : N/A Estimated blood loss (mL): Less than 2 Standardized report: SIR_Port_v3 COMPLICATIONS: No immediate complications CONCLUSION: The patient was comfortable and was transferred to the recovery room in stable condition. The procedure was performed by the: attending radiologist, without an nursing home assistant administrator. The attending radiologist performed the following procedural activities: Entire procedure IMPRESSION: INSERTION OF RIGHT-SIDED POWER-INJECTABLE SINGLE-LUMEN TUNNELED CHEST PORT, WITH CATHETER TIP IN THE EXPECTED LOCATION OF THE CAVOATRIAL JUNCTION. PLAN: THE PORT MAY BE USED IMMEDIATELY. RECOMMEND NORMAL SALINE FLUSH INTERVAL OF 90 DAYS WHEN NOT BEING USED. ATTESTATION: Signer name: Alex Masterson MD I attest that I was present for the entire procedure. I rev (more content not included)... [facility] NURSING PROGon 04-25-2024 NURSING PROG HNO ID: [id number] Author: BYRON PATHAK, RN Service: ? Author Type: Registered Nurse Type: Nursing Progress Note Filed: 04/25/2024 10:45 Note Text: PATIENT EDUCATION TOPIC: PROCEDURE / SURGERY: Procedure/Surgery: Port Placement PATIENT NAME: Kaya Schilling PATIENT LOCATION: AV Rad Proc/AV Rad Proc READINESS TO LEARN COGNITIVE ABILITY: Alert and oriented MOTIVATION TO LEARN: Interested FAMILY SUPPORT: High - Very involved in pt care INSTRUCTION PROVIDED TO: Patient and family member PATIENT LEARNS BEST BY: Written Instruction - Hand-outs Verbal Instruction FACTORS AFFECTING LEARNING: Emotional Factors: Anxious PHYSICAL LIMITATIONS AFFECTING LEARNING: None LEARNING RESPONSE DIAGNOSIS: ADULT: Cancer PATIENT/FAMILY RESPONSE: Verbalizes understanding of: POST-PROCEDURE INSTRUCTIONS-Correct actions to take to reduce post procedure complications PRE-PROCEDURE INSTRUCTIONS-Correct action to take to follow pre-procedure instructions METHOD OF INSTRUCTION: Written instruction/Handouts Verbal instruction FOLLOW-UP PLAN: Patient instructed to call with any further issues Follow-up with Primary Care INSTRUCTIONAL AIDS USED: NA SUPPLEMENTAL MATERIAL PROVIDED TO PATIENT: After Port Placement and After Sedation Handouts given REFERRAL (RECOMMENDATION): None Electronically Signed By: Byron Pathak [facility] 04-24-2024 [facility] KAYA SCHILLING ([id number]) 1965 F Date Time Provider Department 04/24/24 DINH ANDINOPR During your visit today, we recorded the following information about you: Dinh Andino RN 04/24/2024 11:49 AM Signed Pt called regarding upcoming port placement. Patient requesting information on what types of infusions/scans that the port may be used for. Explained that the port is not just for chemotherapy, but may also be used for infusions as well as scans in lieu of starting an IV. Pt verbalized understanding and denies any additional questions. Allergies As of Date: 04/24/2024 Noted Allergy Reaction PERCOCET (OXYCODONE-ACETAMINOPHE N)02/21/2015 8 - GI Upset STADOL (BUTORPHANOL TARTRATE) 10/26/2013 11 - Vomiting Comments: incoherent Date Reviewed: 04/21/2024 Reviewed by: Lillie Richter APRN.FLOOR CLERK - Fully Assessed Reason for Visit: Appointment [[id number]] Prescriptions as of 04/24/2024 - ondansetron (ZOFRAN) 8 mg tablet Take 1 tablet by mouth every 8 hours as needed for nausea/vomiting. - buprenorphine (BUTRANS) 10 mcg/hour Apply 1 Patch as directed one time a week for 30 days. - promethazine (PHENERGAN) 25 mg tablet Take 1 tablet by mouth every 6 hours as needed for nausea/vomiting. - linaCLOtide (LINZESS) 290 mcg capsule Take 1 capsule by mouth once daily. - OLANZapine (ZYPREXA) 10 mg tablet Take 1 tablet by mouth daily at bedtime. - naloxone 4 mg/actuation nasal spray (NARCAN) Use 1 spray in one nostril as needed for overdose. May repeat every 2 to 3 min in alternating nostrils until medical assistance is available - HYDROcodone-Acetaminoph en (NORCO) 10-325 mg per tablet Take 1 tablet by mouth every 6 hours as needed for pain for up to 15 days. - apixaban (ELIQUIS) 5 mg tab(s) Take 10 mg by mouth as directed. - polyethylene glycol 3350 17 gram/dose powder Take 17 g by mouth. - zolpidem (AMBIEN) 5 mg tablet TAKE ONE TABLET BY MOUTH DAILY AT BEDTIME NEEDED FOR SLEEP - lithium carbonate (ESKALITH) 300 mg capsule TAKE ONE TABLET BY MOUTH IN THE MORNING AND TWO TABLETS BY MOUTH IN THE EVENING - levothyroxine (SYNTHROID) 100 mcg tablet Take 100 mcg by mouth once daily. - glipiZIDE (GLUCOTROL XL) 10mg 24 hr tablet Take 10 mg by mouth once daily. - losartan (COZAAR) 100 mg tablet Take 100 mg by mouth once daily. - montelukast (SINGULAIR) 10 mg tablet Take 10 mg by mouth as needed. - metFORMIN (GLUCOPHAGE) 1,000 mg tablet Take 1,000 mg by mouth twice daily. - levomilnacipran ER (FETZIMA ER) 40 mg capsule Take by mouth once daily. - ALPRAZOLAM 2 mg tablet Take 2 mg by mouth three times daily as needed. Indications: Anxiety Problem List As Of Date 04/24/2024 Noted Resolved Anemia [D64.9] 10/26/2013 Iron deficiency [...] deficie*05/25/2022 Severe protein-calorie malnutrition (HCC) [E43] 04/03/2024 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) [*04/18/2024 Hypercalcemia of malignancy [E83.52] 04/18/2024 Encounter Status:[facility][id number]) 1965 F Date Time Provider Department 04/24/24 BREA VILLAGOMEZ During your visit today, we recorded the following information about you: Brea Villagomez, BORA 04/24/2024 3:24 PM Signed Pt did not show for her education appointment today. Call placed to pt for follow up. No answer @ home number. Unable to leave a message. No answer at mobile number. Voicemail is full and not accepting messages. BORA Weaver Brittany 04/26/2024 8:51 AM Signed I spoke w/ patient last night around 5 pm to get her rescheduled. During conversation, patient mentioned she did get her port placed and she's resting. Told patient I was calling to reschedule her education appointment that she missed on Wednesday and patient states she knew nothing about the appointment and is unaware that she is starting chemotherapy. She proceeded to say she knew nothing about the appointments -- and never is informed about her previous appointments she's had here -- Patient then calls a friend screaming saying someone from [facility] is calling me and I'm getting really upset and this is urgent and I need you to call me back randolph . Patient states she doesn't understand anything, needs help, and also mentioned hospice. Advised patient I would get her connected with our Tactical Debriefer Jackie and patient proceeded to say Jackie has been mentioned to her several times but she's never been able to connect with her. She asked that I call her friend, Issa (who brought her to her port placement yesterday) and is her way of transportation right now. This friend was not listed under an Emergency Contact for her but patient gives the OK to list her. Told patient I was hanging up the phone and will be in contact with Issa at a later time. Roberta Vines 04/26/2024 11:14 AM Signed Call placed to Issa to arrange for education per Kaya's request. Issa states she is NOT her transport and she's just a friend and works 12 hour shifts and Kaya can not rely on her. Issa states Kaya is capable of bringing herself to the appointments and last she knew, patient was refusing chemo . Issa states she will bring her to education on Wednesday but can not accommodate her appointment scheduled for Wednesday. Brea Welch, BORA 04/26/2024 11:30 AM Signed Call placed to pt to discuss treatment plans and goals of care. No answer. Voicemail is full and not accepting messages. Call placed to home number. No answer. Message left requesting call back. BORA Weaver Rebecca, RN 04/27/2024 3:33 PM Addendum Voicemail message received from an unidentified caller. Purpose of message is to cancel tomorrow's education appointment. States that Kaya is refusing to go. Per caller, the pt states, No one can make me go. Caller did not leave a return phone number. Clerical: Please cancel tomorrow's education appointment. Brea Villagomez RN Dominguez EmilySharron 04/27/2024 9:51 AM Signed Cxed appointment. Brea Villagomez RN 04/28/2024 10:30 AM Signed Spoke w/ pt who states she has not ruled out chemo as of yet. States she has family that she'd like to reach out to for their opinion and options. Reminded pt of her appointment on 05/01/24. Appointment time provided. Pt wrote down date and time while on the phone and verbalized details back to this RNCC. Also informed pt that she is on to start treatment that day, but reassured her that this could be cancelled if she decides that she does not want chemo when she is here. Advised she have a professional driver just in case she proceeds w/ treatment. Pt verbalizes understanding. Asked pt if she will need assistance w/ transportation for this appointment. Pt stated, No. Per pt, she has friends and/or family that will be able to bring her. SALOMON/Regina/Jackie: DEMETRISI..... Brea Villagomez RN Allergies As of Date: 04/24/2024 Noted Allergy Reaction PERCOCET (OXYCODONE-ACETAMINOPHE N)02/21/2015 8 - GI Upset STADOL (BUTORPHANOL TARTRATE) 10/26/2013 11 - Vomiting Comments: incoherent Date Reviewed: 04/21/2024 Reviewed by: Lillie Richter APRN.FLOOR CLERK - Fully Assessed Reason for Visit: Vp Human Resources - Other [8852] Cmt: Missed Appointment Prescriptions as of 04/28/2024 - buprenorphine (BUTRANS) 20 mcg/hour transdermal patch Apply 1 Patch as directed one time a week for 30 days. - ondansetron (ZOFRAN) 8 mg tablet Take 1 tablet by mouth every 8 hours as needed for nausea/vomiting. - promethazine (PHENERGAN) 25 mg tablet Take 1 tablet by mouth every 6 hours as needed for nausea/vomiting. - linaCLOtide (LINZESS) 290 mcg capsule Take 1 capsule by mouth once daily. - OLANZapine (ZYPREXA) 10 mg tablet Take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 Patient has been identified by name and birthdate. Requesting response back: call at home [phone] (cell) Vahe [employer] Sec April 19, 2024 April Frye RN 04/19/2024 1:41 PM Signed Care Coordination Triage Note [facility] Situation: Patient reports continued severe abdominal pain increased every day since visit with LUPILLO Juarez Background: Disease, current pertinent medications/treatments Gastric Cancer Assessment: Patient reports her pain in the morning 06/15. She took the Oxy IR with no relief. She is only wearing one Butran 10 mcg patch. Said her friend Fidelina from [place] did not believe we increased it. She says her abdominal aching pain to the middle of her stomach is severe. Reports no BM in 3 days. Forgot to take the Linzess yesterday and today. She will take now. Nausea mild but no vomiting and takes her antinausea when needed and Olanzapine 10 mg at bedtime. She reports able to eat well yesterday and reports she was able to eat a lot and not sure this is what is causing her pain. Current pain medication and usage: -Butran 10 mcg, still only using one patch. Advised again to increase to 2 patches as discussed with her on 04/17. -[place] 10/325 Q6H prn, taking 1 tablet, taking she thinks only 3 times daily. Advised to increase to 4 tablets daily as ordered. Last time took at 9 am pain still 06/15. Extensive review completed of her pain regimen and patient verbally confirmed back to this nurse but patient excessively talked and needed re-direction multiple times to stop talking and listen. Advised ED if pain severe but she does not want to go. Let her know we would sent to [facility] to review. April Frye RN April 19, 2024 12:57 PM Allergies As of Date: 04/19/2024 Noted Allergy Reaction PERCOCET (OXYCODONE-ACETAMINOPHE N)02/21/2015 8 - GI Upset STADOL (BUTORPHANOL TARTRATE) 10/26/2013 11 - Vomiting Comments: incoherent Date Reviewed: 04/18/2024 Reviewed by: Amirah Koch MA - Fully Assessed Reason for Visit: Patient Update [1234] Prescriptions as of 04/19/2024 - buprenorphine (BUTRANS) 10 mcg/hour Apply 1 Patch as directed one time a week for 30 days. - promethazine (PHENERGAN) 25 mg tablet Take 1 tablet by mouth every 6 hours as needed for nausea/vomiting. - linaCLOtide (LINZESS) 290 mcg capsule Take 1 capsule by mouth once daily. - OLANZapine (ZYPREXA) 10 mg tablet Take 1 tablet by mouth daily at bedtime. - naloxone 4 mg/actuation nasal spray (NARCAN) Use 1 spray in one nostril as needed for overdose. May repeat every 2 to 3 min in alternating nostrils until medical assistance is available - HYDROcodone-Acetaminoph en (NORCO) 10-325 mg per tablet Take 1 tablet by mouth every 6 hours as needed for pain for up to 15 days. - apixaban (ELIQUIS) 5 mg tab(s) Take 10 mg by mouth as directed. - polyethylene glycol 3350 17 gram/dose powder Take 17 g by mouth. - zolpidem (AMBIEN) 5 mg tablet TAKE ONE TABLET BY MOUTH DAILY AT BEDTIME NEEDED FOR SLEEP - lithium carbonate (ESKALITH) 300 mg capsule TAKE ONE TABLET BY MOUTH IN THE MORNING AND TWO TABLETS BY MOUTH IN THE EVENING - levothyroxine (SYNTHROID) 100 mcg tablet Take 100 mcg by mouth once daily. - glipiZIDE (GLUCOTROL XL) 10mg 24 hr tablet Take 10 mg by mouth once daily. - losartan (COZAAR) 100 mg tablet Take 100 mg by mouth once daily. - montelukast (SINGULAIR) 10 mg tablet Take 10 mg by mouth as needed. - metFORMIN (GLUCOPHAGE) 1,000 mg tablet Take 1,000 mg by mouth twice daily. - levomilnacipran ER (FETZIMA ER) 40 mg capsule Take by mouth once daily. - ALPRAZOLAM 2 mg tablet Take 2 mg by mouth three times daily as needed. Indications: Anxiety Problem List As Of Date 04/19/2024 Noted Resolved Anemia [D64.9] 10/26/2013 Iron deficiency [...] los*05/25/2022 Megaloblastic anemia due to vitamin B12 defici (more content not included)... [facility] CBC W Auto Differential pane l (Bld)on 04-18-2024 Basophils (Bld) [#/Vol] 0.04 10*3/uL [facility] Basophils/100 WBC (Bld) 0.7 % [facility] Differential cell count method Nom (Bld) Auto [facility] Eosinophils (Bld) [#/Vol] 0.07 10*3/uL [facility] Eosinophils/100 WBC (Bld) 1.2 % [facility] Erythrocyte distribution width (RBC) [Ratio] 17.1 % High 11.5 - 15.0 % [facility] Hematocrit (Bld) [Volume fraction] 25.3 % Low 36.0 - 46.0 % [facility] Hemoglobin (Bld) [Mass/Vol] 8.1 g/dL Low 11.5 - 15.5 g/dL [facility] Immature granulocytes (Bld) [#/Vol] [facility] Immature granulocytes/100 WBC (Bld) 0.3 % [facility] Interpretation and review of laboratory results Abnormal [facility] Lymphocytes (Bld) [#/Vol] 0.95 10*3/uL Low [facility] Lymphocytes/100 WBC (Bld) 16.4 % [facility] MCH (RBC) [Entitic mass] 32.8 pg 26.0 - 34.0 pg [facility] MCHC (RBC) [Mass/Vol] 32.0 g/dL 30.5 - 36.0 g/dL [facility] MCV (RBC) [Entitic vol] 102.4 fL High 80.0 - 100.0 fL [facility] Monocytes (Bld) [#/Vol] 0.41 10*3/uL NINF [facility] Monocytes/100 WBC (Bld) 7.1 % [facility] Neutrophils (Bld) [#/Vol] 4.29 10*3/uL [facility] Neutrophils/100 WBC (Bld) 74.3 % [facility] Nucleated RBC (Bld) [#/Vol] NINF [facility] Nucleated RBC/100 WBC (Bld) [Ratio] 0.0 % /100 WBC [facility] Platelet mean volume (Bld) [Entitic vol] 9.1 fL 9.0 - 12.7 fL [facility] Platelets (Bld) [#/Vol] 364 10*3/uL [facility] RBC (Bld) [#/Vol] 2.47 10*6/uL Low 3.90 - 5.2 0 m/uL [facility] WBC (Bld) [#/Vol] 5.78 10*3/uL [facility] Basophils (Bld) [#/Vol] 0.04 10*3/uL [facility] <0.11 [facility] Comment on above: Order Comment: Speci men Type: BLOOD SPECIMENOrdering Facility: [facility] Address: [address] [place] [address] Performed By: #### 5 7021-8 ####[facility] LABCLIA [id number] [place] [address] Basophils/100 WBC (Bld) 0.7 % [facility] Comment on above: Order Comment: Speci men Type: BLOOD SPECIMENOrdering Facility: [facility] Address: [address] [place] [address] Performed By: #### 5 7021-8 ####[facility] LABCLIA [id number] [place] [address] Differential cell count method Nom (Bld) Auto [facility] Comment on above: Order Comment: Speci men Type: BLOOD SPECIMENOrdering Facility: [facility] Address: [address] [place] [address] Performed By: #### 5 7021-8 ####[facility] LABCLIA [id number] [place] [address] Eosinophils (Bld) [#/Vol] 0.07 10*3/uL Normal <0.46 [facility] Comment on above: Order Comment: Speci men Type: BLOOD SPECIMENOrdering Facility: [facility] Address: [address] [place] [address] Performed By: #### 5 7021-8 ####[facility] LABCLIA [id number] [place] [address] Eosinophils/100 WBC (Bld) 1.2 % [facility] Comment on above: Order Comment: Speci men Type: BLOOD SPECIMENOrdering Facility: [facility] Address: [address] [place] [address] Performed By: #### 5 7021-8 ####[facility] LABCLIA [id number] [place] [address] Erythrocyte distribution width (RBC) [Ratio] 17.1 % High 11.5-15.0 [facility] Comment on above: Order Comment: Speci men Type: BLOOD SPECIMENOrdering Facility: [facility] Address: [address] [place] [address] Performed By: #### 5 7021-8 ####[facility] LABCLIA [id number] [place] [address] Hematocrit (Bld) [Volume fraction] 25.3 % Low 36.0-46.0 [facility] Comment on above: Order Comment: Speci men Type: BLOOD SPECIMENOrdering Facility: [facility] Address: [address] [place] [address] Performed By: #### 5 7021-8 ####[facility] LABCLIA [id number] [place] [address] Hemoglobin (Bld) [Mass/Vol] 8.1 g/dL Low 11.5-15.5 [facility] Comment on above: Order Comment: Speci men Type: BLOOD SPECIMENOrdering Facility: [facility] Address: [address] [place] [address] Performed By: #### 5 7021-8 ####[facility] LABCLIA [id number] [place] [address] Immature granulocytes (Bld) [#/Vol] 10*3/uL Normal <0.10 [facility] Comment on above: Order Comment: Speci men Type: BLOOD SPECIMENOrdering Facility: [facility] Address: [address] [place] [address] Performed By: #### 5 7021-8 ####[facility] LABCLIA [id number] [place] [address] Immature granulocytes/100 WBC (Bld) 0.3 % [facility] Comment on above: Order Comment: Speci men Type: BLOOD SPECIMENOrdering Facility: [facility] Address: [address] [place] [address] Performed By: #### 5 7021-8 ####[facility] LABCLIA [id number] [place] [address] Lymphocytes (Bld) [#/Vol] 0.95 10*3/uL Low 1.00-4.00 [facility] Comment on above: Order Comment: Speci men Type: BLOOD SPECIMENOrdering Facility: [facility] Address: [address] [place] [address] Performed By: #### 5 7021-8 ####[facility] LABCLIA [id number] [place] [address] Lymphocytes/100 WBC (Bld) 16.4 % [facility] Comment on above: Order Comment: Speci men Type: BLOOD SPECIMENOrdering Facility: [facility] Address: [address] [place] [address] Performed By: #### 5 7021-8 ####[facility] LABCLIA [id number] [place] [address] MCH (RBC) [Entitic mass] 32.8 pg Normal 26.0-34.0 [facility] Comment on above: Order Comment: Speci men Type: BLOOD SPECIMENOrdering Facility: [facility] Address: [address] [place] [address] Performed By: #### 5 7021-8 ####[facility] LABCLIA [id number] [place] [address] MCHC (RBC) [Mass/Vol] 32.0 g/dL Normal 30.5-36.0 [facility] Comment on above: Order Comment: Speci men Type: BLOOD SPECIMENOrdering Facility: [facility] Address: [address] [place] [address] Performed By: #### 5 7021-8 ####[facility] LABCLIA [id number] [place] [address] MCV (RBC) [Entitic vol] 102.4 fL High 80.0-100.0 [facility] Comment on above: Order Comment: Speci men Type: BLOOD SPECIMENOrdering Facility: [facility] Address: [address] [place] [address] Performed By: #### 5 7021-8 ####[facility] LABIA [id number] [place] [address] Monocytes (Bld) [#/Vol] 0.41 10*3/uL Normal <0.87 [facility] Comment on above: Order Comment: Speci men Type: BLOOD SPECIMENOrdering Facility: [facility] Address: [address] [place] [address] Performed By: #### 5 7021-8 ####[facility] LABCLIA [id number] [place] [address] Monocytes/100 WBC (Bld) 7.1 % [facility] Comment on above: Order Comment: Speci men Type: BLOOD SPECIMENOrdering Facility: [facility] Address: [address] [place] [address] Performed By: #### 5 7021-8 ####[facility] LABCLIA [id number] [place] [address] Neutrophils (Bld) [#/Vol] 4.29 10*3/uL Normal 1.45-7.50 [facility] Comment on above: Order Comment: Speci men Type: BLOOD SPECIMENOrdering Facility: [facility] Address: [address] [place] [address] Performed By: #### 5 7021-8 ####[facility] LABCLIA [id number] [place] [address] Neutrophils/100 WBC (Bld) 74.3 % [facility] Comment on above: Order Comment: Speci men Type: BLOOD SPECIMENOrdering Facility: [facility] Address: [address] [place] [address] Performed By: #### 5 7021-8 ####[facility] LABCLIA [id number] [place] [address] Nucleated RBC (Bld) [#/Vol] 10*3/uL Normal <0.01 [facility] Comment on above: Order Comment: Speci men Type: BLOOD SPECIMENOrdering Facility: [facility] Address: [address] [place] [address] Performed By: #### 5 7021-8 ####[facility] LABCLIA [id number] [place] [address] Nucleated RBC/100 WBC (Bld) [Ratio] 0.0 /100 WBC [facility] Comment on above: Order Comment: Speci men Type: BLOOD SPECIMENOrdering Facility: [facility] Address: [address] [place] [address] Performed By: #### 5 7021-8 ####[facility] LABCLIA [id number] [place] [address] Platelet mean volume (Bld) [Entitic vol] 9.1 fL Normal 9.0-12.7 [facility] Comment on above: Order Comment: Speci men Type: BLOOD SPECIMENOrdering Facility: [facility] Address: [address] [place] [address] Performed By: #### 5 7021-8 ####[facility] LABCLIA [id number] [place] [address] Platelets (Bld) [#/Vol] 364 10*3/uL Normal 150-400 [facility] Comment on above: Order Comment: Speci men Type: BLOOD SPECIMENOrdering Facility: [facility] Address: [address] [place] [address] Performed By: #### 5 7021-8 ####[facility] LABCLIA [id number] [place] [address] RBC (Bld) [#/Vol] 2.47 10*6/uL Low 3.90-5.20 [facility] Comment on above: Order Comment: Speci men Type: BLOOD SPECIMENOrdering Facility: [facility] Address: [address] [place] [address] Performed By: #### 5 7021-8 ####[facility] LABCLIA [id number] [place] [address] WBC (Bld) [#/Vol] 5.78 10*3/uL Normal 3.70-11.00 [facility] Comment on above: Order Comment: Speci men Type: BLOOD SPECIMENOrdering Facility: [facility] Address: [address] [place] [address] Performed By: #### 5 7021-8 ####[facility] LABIA [id number] [place] [address] CNOVSPon 04-18-2024 CNOVS Visit (SP) Office ([place]) KAYA SCHILLING ([id number]) 1965 F Date Time Provider Department 04/18/24 1:45 PM BETO VIVAR During your visit today, we recorded the following information about you: Temperature Pulse Respiration Blood pressure 97.6 degrees 103/minute 16/minute 160/77 Weight Height 49.9 kg 1.651 m Beto Vivar MD 04/20/2024 7:48 AM Addendum PATIENT NAME: Kaya Schilling DATE: 04/18/2024 PRIMARY CARE PHYSICIAN: Kostas Steward DO OTHER PHYSICIANS: Dr. Cong Montano, Dr. Ramires (Psych in [place]) Portions of this encounter note have been copied from my note from 03/23/2024 and has been updated where appropriate, and reflect my current medical decision making from today. CC: This is a 59 year old female with recently diagnosed metastatic gastric cancer, seen for scheduled follow-up. INTERIM HISTORY: Since the patient's initial visit here she underwent further staging with a PET scan and repeat CT scans. She was found to have extensive progressive disease involving her stomach, widespread malignant adenopathy, and suspected bone metastases. Labs obtained at the patient's initial visit here were significant for critically low B12 level plus iron deficiency. Since then she has received multiple B12 injections plus IV iron. Overall she feels little better. Her main complaint at this time is severe abdominal pain. She was recently seen by [facility] palliative medicine, and is on new medications for pain control. Throughout this time she has had no evidence of GI bleeding. No significant nausea vomiting. However, her appetite is poor and she has lost a great deal of weight. MEDICATIONS: Current Outpatient Medications Medication Sig buprenorphine (BUTRANS) 10 mcg/hour Apply 1 Patch as directed one time a week for 30 days. promethazine (PHENERGAN) 25 mg tablet Take 1 tablet by mouth every 6 hours as needed for nausea/vomiting. linaCLOtide (LINZESS) 290 mcg capsule Take 1 capsule by mouth once daily. OLANZapine (ZYPREXA) 10 mg tablet Take 1 tablet by mouth daily at bedtime. naloxone 4 mg/actuation nasal spray (NARCAN) Use 1 spray in one nostril as needed for overdose. May repeat every 2 to 3 min in alternating nostrils until medical assistance is available HYDROcodone-Acetaminoph en (NORCO) 10-325 mg per tablet Take 1 tablet by mouth every 6 hours as needed for pain for up to 15 days. apixaban (ELIQUIS) 5 mg tab(s) Take 10 mg by mouth as directed. polyethylene glycol 3350 17 gram/dose powder Take 17 g by mouth. zolpidem (AMBIEN) 5 mg tablet TAKE ONE TABLET BY MOUTH DAILY AT BEDTIME NEEDED FOR SLEEP lithium carbonate (ESKALITH) 300 mg capsule TAKE ONE TABLET BY MOUTH IN THE MORNING AND TWO TABLETS BY MOUTH IN THE EVENING levothyroxine (SYNTHROID) 100 mcg tablet Take 100 mcg by mouth once daily. glipiZIDE (GLUCOTROL XL) 10mg 24 hr tablet Take 10 mg by mouth once daily. losartan (COZAAR) 100 mg tablet Take 100 mg by mouth once daily. montelukast (SINGULAIR) 10 mg tablet Take 10 mg by mouth once daily. metFORMIN (GLUCOPHAGE) 1,000 mg tablet Take 1,000 mg by mouth twice daily. levomilnacipran ER (FETZIMA ER) 40 mg capsule Take by mouth once daily. ALPRAZOLAM 2 mg tablet Take 2 mg by mouth three times daily as needed. Indications: Anxiety No current facility-administered medications for this visit. ALLERGIES: ALLERGIES Allergen Reactions Percocet [Oxycodone* GI Upset Stadol [Butorphanol* Vomiting incoherent PAST MEDICAL HISTORY: PAST MEDICAL HISTORY No date: Acute pulmonary embolism without acute cor pulmonale, unspecified pulmonary embolism type (HCC) No date: Anemia No date: Arthritis No date: Bipolar 1 disorder ([facility]) No date: Broken jaw ([facility]) Comment: no surgery No date: COPD (chronic obstructive pulmonary disease) ([facility]) No date: Diabetes mellitus (adult onset) ([facility]) No date: Gastric carcinoma ([facility]) No date: History of broken nose Comment: had septoplasty No date: Manic depression ([facility]) Comment: Dr. Rees No date: Midline low back pain without sciatica, unspecified chronicity No date: Neck pain No date: Pneumonia No date: PTSD (post-traumatic stress disorder) No date: Scoliosis No date: Thyroid disease No date: Unintended weight loss PAST SURGICAL HISTORY: PAST SURGICAL HISTORY No date: BLADDER SURGERY HX Comment: mesh sling No date: COLONOSCOPY Comment: w/EGD AND biopsy of stomach mass No date: EXCIS BARTHOLIN GLAND/CYST No date: NOSE SURGERY HX Comment: septum rconstruction No date: REPAIR RECTOCELE SEPARATE PROCEDURE No date: THYROID SURGERY HX Comment: biopsy done no CA No date: TUBAL LIGATION HX FAMILY HISTORY: FAMILY HISTORY Problem Relation Age of Onset other (high blood pressure [Other]) Mother other (high blood pressure [Other]) Sister other (heat attack [Other]) Mother othe (more content not included)... [facility] 04-18-2024 CNPN Telephone (NCCAP) KAYA SCHILLING ([id number]) 1965 F Date Time Provider Department 04/18/24 BETO VIVAR During your visit today, we recorded the following information about you: Roberta Vaughan 04/18/2024 2:23 PM Signed Refer to [facility] for [facility] [place] 04/20/2024 8:58 AM Signed Daisha Barnes hour ago (6:59 AM) LINO Nicolas has some appointments next week. I will call the patient to schedule. Roberta Rdz 04/20/2024 11:27 AM Signed Daisha Barnes hour ago (9:32 AM) [place] Spoke to patient and scheduled her for 04/25 at [place]. Can we please get an order with a diagnosis? Thanks, Brea Busch RN 04/20/2024 11:32 AM Signed New order, including diagnosis, pended. Please review and approve. BORA Weaver Rebecca, RN 04/20/2024 11:45 AM Signed Order signed. BORA Weaver Rebecca, RN 04/20/2024 12:46 PM Signed Daisha Barnes; Roberta Vaughan3 minutes ago (12:41 PM) LINO Thanks! She is on the schedule at [place] on 04/25 for her port. Brea Busch RN 04/20/2024 12:46 PM Signed Thanks! Is the patient aware or do we need to call and notify her? BORA Weaver Brittany 04/20/2024 2:00 PM Signed Daisha Barnes; Brea Villagomez RN58 minutes ago (1:01 PM) LINO You're welcome. 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 - promethazine (PHENERGAN) 25 mg tablet Take 1 tablet by mouth every 6 hours as needed for nausea/vomiting. - linaCLOtide (LINZESS) 290 mcg capsule Take 1 capsule by mouth once daily. - OLANZapine (ZYPREXA) 10 mg tablet Take 1 tablet by mouth daily at bedtime. - naloxone 4 mg/actuation nasal spray (NARCAN) Use 1 spray in one nostril as needed for overdose. May repeat every 2 to 3 min in alternating nostrils until medical assistance is available - HYDROcodone-Acetaminoph en (NORCO) 10-325 mg per tablet Take 1 tablet by mouth every 6 hours as needed for pain for up to 15 days. - apixaban (ELIQUIS) 5 mg tab(s) Take 10 mg by mouth as directed. - polyethylene glycol 3350 17 gram/dose powder Take 17 g by mouth. - zolpidem (AMBIEN) 5 mg tablet TAKE ONE TABLET BY MOUTH DAILY AT BEDTIME NEEDED FOR SLEEP - lithium carbonate (ESKALITH) 300 mg capsule TAKE ONE TABLET BY MOUTH IN THE MORNING AND TWO TABLETS BY MOUTH IN THE EVENING - levothyroxine (SYNTHROID) 100 mcg tablet Take 100 mcg by mouth once daily. - glipiZIDE (GLUCOTROL XL) 10mg 24 hr tablet Take 10 mg by mouth once daily. - losartan (COZAAR) 100 mg tablet Take 100 mg by mouth once daily. - montelukast (SINGULAIR) 10 mg tablet Take 10 mg by mouth as needed. - metFORMIN (GLUCOPHAGE) 1,000 mg tablet Take 1,000 mg by mouth twice daily. - levomilnacipran ER (FETZIMA ER) 40 mg capsule Take by mouth once daily. - ALPRAZOLAM 2 mg tablet Take 2 mg by mouth three times daily as needed. 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 Thank you! Brea Welch, BORA 04/18/2024 2:44 PM Addendum Call placed to [facility]. No answer. Unable to leave a message. Order on [facility]'s desk to be signed. BORA Weaver Rebecca, RN 04/18/2024 4:15 PM Signed 2nd call placed to [facility]. No answer. Unable to leave a message. BORA Weaver Rebecca, RN 04/19/2024 2:16 PM Signed 3rd attempt made to reach pathology. No answer. Message left requesting call back. BORA Weaver Rebecca, BORA 04/19/2024 3:23 PM Signed Order faxed to [facility] @ [phone]. Brea Villagomez RN Allergies As of Date: 04/18/2024 Noted Allergy Reaction PERCOCET (OXYCODONE-ACETAMINOPHE N)02/21/2015 8 - GI Upset STADOL (BUTORPHANOL TARTRATE) 10/26/2013 11 - Vomiting Comments: incoherent Date Reviewed: 04/18/2024 Reviewed by: Amirah Koch MA - Fully Assessed Reason for Visit: Additional testing [Other] Prescriptions as of 04/19/2024 - buprenorphine (BUTRANS) 10 mcg/hour Apply 1 Patch as directed one time a week for 30 days. - promethazine (PHENERGAN) 25 mg tablet Take 1 tablet by mouth every 6 hours as needed for nausea/vomiting. - linaCLOtide (LINZESS) 290 mcg capsule Take 1 capsule by mouth once daily. - OLANZapine (ZYPREXA) 10 mg tablet Take 1 tablet by mouth daily at bedtime. - naloxone 4 mg/actuation nasal spray (NARCAN) Use 1 spray in one nostril as needed for overdose. May repeat every 2 to 3 min in alternating nostrils until medical assistance is available - HYDROcodone-Acetaminoph en (NORCO) 10-325 mg per tablet Take 1 tablet by mouth every 6 hours as needed for pain for up to 15 days. - apixaban (ELIQUIS) 5 mg tab(s) Take 10 mg by mouth as directed. - polyethylene glycol 3350 17 gram/dose powder Take 17 g by mouth. - zolpidem (AMBIEN) 5 mg tablet TAKE ONE TABLET BY MOUTH DAILY AT BEDTIME NEEDED FOR SLEEP - lithium carbonate (ESKALITH) 300 mg capsule TAKE ONE TABLET BY MOUTH IN THE MORNING AND TWO TABLETS BY MOUTH IN THE EVENING - levothyroxine (SYNTHROID) 100 mcg tablet Take 100 mcg by mouth once daily. - glipiZIDE (GLUCOTROL XL) 10mg 24 hr tablet Take 10 mg by mouth once daily. - losartan (COZAAR) 100 mg tablet Take 100 mg by mouth once daily. - montelukast (SINGULAIR) 10 mg tablet Take 10 mg by mouth as needed. - metFORMIN (GLUCOPHAGE) 1,000 mg tablet Take 1,000 mg by mouth twice daily. - levomilnacipran ER (FETZIMA ER) 40 mg capsule Take by mouth once daily. - ALPRAZOLAM 2 mg tablet Take 2 mg by mouth three times daily as needed. 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) [*04/18/2024 Hypercalcemia of malignancy [E83.52] 04/18/2024 Encounter Status:Closed by LILLIE RICHTER on 04/19/24 [facility] Comprehensive metabolic 2000 panelOrdered By: Lisseth Gleason on 04-18-2024 Albumin [Mass/Vol] 3.8 g/dL Low 3.9 - 4.9 g/dL [facility] ALP [Catalytic activity/Vol] 92 U/L 34 - 123 U/L [facility] ALT [Catalytic activity/Vol] 10 U/L 7 - 38 U/L [facility] Anion gap [Moles/Vol] 10 mmol/L 8 - 15 mmol/L [facility] AST [Catalytic activity/Vol] 20 U/L 13 - 35 U/L [facility] Bilirubin [Mass/Vol] 0.3 mg/dL 0.2 - 1.3 mg/dL [facility] Calcium [Mass/Vol] 11.5 mg/dL High 8.5 - 10. 2 mg/dL [facility] Chloride [Moles/Vol] 98 mmol/L 98 - 107 mmol/L [facility] CO2 [Moles/Vol] 25 mmol/L 22 - 30 mmol/L [facility] Creatinine [Mass/Vol] 1.39 mg/dL High 0.58 - 0.96 mg/dL [facility] GFR/1.73 sq M.predicted among non-blacks MDRD (S/P/Bld) [Vol rate/Area] 44 mL/min/{1.73_m2} Low - PINF [facility] Comment on above: Estimated Glomerular Filtration [...] not accurately reflect actual GFR. Glucose [Mass/Vol] 193 mg/dL High 74 - 99 mg/dL [facility] Comment on above: The [place] Diab[employer] Association (ADA) provides guidance for [...] Standards of Medical Care in Diabetes 2016, [place] [employer]. Diabetes Care. 2016.39(Suppl 1). Interpretation and review of laboratory results Abnormal [facility] Potassium [Moles/Vol] 4.1 mmol/L 3.7 - 5.1 mmol/L [facility] Protein [Mass/Vol] 6.8 g/dL 6.3 - 8.0 g/dL [facility] Sodium [Moles/Vol] 133 mmol/L Low 136 - 144 mmol/L [facility] Urea nitrogen [Mass/Vol] 17 mg/dL 7 - 21 mg/dL [facility] Comprehensive metabolic 2000 panelon 04-18-2024 Albumin [Mass/Vol] 3.8 g/dL Low 3.9-4.9 [facility] Comment on above: Order Comment: Speci men Type: BLOOD SPECIMENOrdering Facility: [facility] Address: [address] [place] [address] Performed By: #### 2 4323-8 ####[facility] LABCLIA [id number] [place] [address] ALP [Catalytic activity/Vol] 92 U/L Normal 34-123 [facility] Comment on above: Order Comment: Speci men Type: BLOOD SPECIMENOrdering Facility: [facility] Address: [address] [place] [address] Performed By: #### 2 4323-8 ####[facility] LABCLIA [id number] [place] [address] ALT [Catalytic activity/Vol] 10 U/L Normal 7-38 [facility] Comment on above: Order Comment: Speci men Type: BLOOD SPECIMENOrdering Facility: [facility] Address: [address] [place] [address] Performed By: #### 2 4323-8 ####[facility] LABCLIA [id number] [place] [address] Anion gap [Moles/Vol] 10 mmol/L Normal 8-15 [facility] Comment on above: Order Comment: Speci men Type: BLOOD SPECIMENOrdering Facility: [facility] Address: [address] [place] [address] Performed By: #### 2 4323-8 ####[facility] LABIA [id number] [place] [address] AST [Catalytic activity/Vol] 20 U/L Normal 13-35 [facility] Comment on above: Order Comment: Speci men Type: BLOOD SPECIMENOrdering Facility: [facility] Address: [address] [place] [address] Performed By: #### 2 4323-8 ####[facility] LABCLIA [id number] [place] [address] Bilirubin [Mass/Vol] 0.3 mg/dL Normal 0.2-1.3 [facility] Comment on above: Order Comment: Speci men Type: BLOOD SPECIMENOrdering Facility: [facility] Address: [address] [place] [address] Performed By: #### 2 4323-8 ####[facility] LABCLIA [id number] [place] [address] Calcium [Mass/Vol] 11.5 mg/dL High 8.5-10.2 [facility] Comment on above: Order Comment: Speci men Type: BLOOD SPECIMENOrdering Facility: [facility] Address: [address] [place] [address] Performed By: #### 2 4323-8 ####[facility] LABCLIA [id number] [place] [address] Chloride [Moles/Vol] 98 mmol/L Normal 98-107 [facility] Comment on above: Order Comment: Speci men Type: BLOOD SPECIMENOrdering Facility: [facility] Address: [address] [place] [address] Performed By: #### 2 4323-8 ####[facility] LABCLIA [id number] [place] [address] CO2 [Moles/Vol] 25 mmol/L Normal 22-30 [facility] Comment on above: Order Comment: Speci men Type: BLOOD SPECIMENOrdering Facility: [facility] Address: [address] [place] [address] Performed By: #### 2 4323-8 ####[facility] LABCLIA [id number] [place] [address] Creatinine [Mass/Vol] 1.39 mg/dL High 0.58-0.96 [facility] Comment on above: Order Comment: Paco fenton Type: BLOOD SPECIMENOrdering Facility: [facility] Address: [address] [id number] Performed By: #### 2 4323-8 ####[facility] LABCLIA [id number] [place] [address] Creatinine and Glomerular filtration rate.predicted panel (S/P/Bld) 44 mL/min/1.73m??? Low >=60 [facility] Comment on above: Order Comment: Specaly fenton Type: BLOOD SPECIMENOrdering Facility: [facility] Address: [address] [place] [address] Result Comment: Carmen mated Glomerular Filtration Rate [...] actual GFR. Performed By: #### 2 4323-8 ####[facility] LABCLIA [id number] [place] [address] Glucose [Mass/Vol] 193 mg/dL High 74-99 [facility] Comment on above: Order Comment: Paco fenton Type: BLOOD SPECIMENOrdering Facility: [facility] Address: [address] [id number] Result Comment: The [place] Diabetes Association (ADA) provides guidance for cutoff [...] Standards of Medical Care in Diabetes 2016, [place] [employer]. Diabetes Care. 2016.39(Suppl 1). Performed By: #### 2 4323-8 ####[facility] LABCLIA [id number] [place] [address] Potassium [Moles/Vol] 4.1 mmol/L Normal 3.7-5.1 [facility] Comment on above: Order Comment: Speci men Type: BLOOD SPECIMENOrdering Facility: [facility] Address: [address] [place] [address] Performed By: #### 2 4323-8 ####[facility] LABIA [id number] [place] [address] Protein [Mass/Vol] 6.8 g/dL Normal 6.3-8.0 [facility] Comment on above: Order Comment: Speci men Type: BLOOD SPECIMENOrdering Facility: [facility] Address: [address] [place] [address] Performed By: #### 2 4323-8 ####[facility] LABIA [id number] [place] [address] Sodium [Moles/Vol] 133 mmol/L Low 136-144 [facility] Comment on above: Order Comment: Speci men Type: BLOOD SPECIMENOrdering Facility: [facility] Address: [address] [place] [address] Performed By: #### 2 4323-8 ####[facility] LABIA [id number] [place] [address] Urea nitrogen [Mass/Vol] 17 mg/dL Normal 7-21 [facility] Comment on above: Order Comment: Speci men Type: BLOOD SPECIMENOrdering Facility: [facility] Address: [address] [place] [address] Performed By: #### 2 4323-8 ####[facility] LABIA [id number] [place] [address] Leo 04-17-2024 [place] Telephone (PALMED) KAYA SCHILLING ([id number]) 1965 F Date Time Provider Department 04/17/24 LILLIE RICHTER During your visit today, we recorded the following information about you: Logan Ann 04/17/2024 10:52 AM Signed Kaya Schilling is calling today regarding pain that she is experiencing in her stomach. She states that has not been able to maintain a comfortable level. Patient is requesting a return call to discuss possible remedies for relief. April Tate RN 04/17/2024 12:32 PM Signed Care Coordination Triage Note [facility] Situation: Patient reports stomach pain that has not resolved despite the increase in her [place]. Background: Disease, current pertinent medications/treatments malignant neoplasm of cardia of stomach Assessment: Patient reports having pain usually in the morning. She reports starting the Patch on Wednesday. So far she Reports pain level 10/10 in the morning. Patient takes the [place] 10 mg pain reduces to a 7/10 and just takes the edge off. Still has nausea and takes phenergan. Has not picked up Olanzapine yet. Last BM Sunday 04/15. Current pain regimen and usage: Buprenorphine 10 mg, taking [place] 10/325 po Q6HR prn, taking 1 tablet 3x daily in the am, afternoon, and pm), advised to increase to 4 x daily as needed. Reports having 6 tablets left and has said she has not picked up her [place] ordered 04/14 and not due for a refill until tomorrow per pharmacy. Bowel regimen and usage: -Linzess daily, taking daily, Last took 04/12 . Last BM 04/15. Denies constipation. Advise to continue daily as recommended and hold if loose stools. Nausea/appetite: - Olanzapine 10 mg po at HS-has not picked up, will black pickler today. -phenergan 25 mg table, taking Q6H prn, took last night around 8:30 pm and it helped. Patient asking for an adjustment in her pain medications. Recommendations: Per Ann Richter CNP- to review, patient directed to ER if symptoms worsen. April Frye RN April 17, 2024 11:41 AM Lillie Richter APRN.LUPILLO 04/17/2024 12:54 PM Addendum She can place a second transdermal Butrans patch on for a total of 20 mcg/ hr She could use dulcolax [place] with Linzess until she has a movement then DC April Frye RN 04/17/2024 1:17 PM Signed Palliative Medicine Care Coordination Follow up Phone Call Patient identified by name and : Yes Spoke to: patient Nurse calling to follow up on provider medication recommendations. Discussed with Kaya that Ann WESLEY recommends applying a 2nd Butran patch to equal 20 mcg/hour and may take dulcolax [place] and Linzess until she has a bowel movement then discontinue. Patient verbalized understanding and will call when needing a refills. April Frye RN April 17, 2024 1:17 PM Allergies As of Date: 04/17/2024 Noted Allergy Reaction PERCOCET (OXYCODONE-ACETAMINOPHE N)02/21/2015 8 - GI Upset STADOL (BUTORPHANOL TARTRATE) 10/26/2013 11 - Vomiting Comments: incoherent Date Reviewed: 04/14/2024 Reviewed by: Erendira Aguillon RD - Fully Assessed Reason for Visit: Care Coordination [3491] Cmt: Stomach pain Prescriptions as of 04/17/2024 - buprenorphine (BUTRANS) 10 mcg/hour Apply 1 Patch as directed one time a week for 30 days. - promethazine (PHENERGAN) 25 mg tablet Take 1 tablet by mouth every 6 hours as needed for nausea/vomiting. - linaCLOtide (LINZESS) 290 mcg capsule Take 1 capsule by mouth once daily. - OLANZapine (ZYPREXA) 10 mg tablet Take 1 tablet by mouth daily at bedtime. - naloxone 4 mg/actuation nasal spray (NARCAN) Use 1 spray in one nostril as needed for overdose. May repeat every 2 to 3 min in alternating nostrils until medical assistance is available - HYDROcodone-Acetaminoph en (NORCO) 10-325 mg per tablet Take 1 tablet by mouth every 6 hours as needed for pain for up to 15 days. - apixaban (ELIQUIS) 5 mg tab(s) Take 10 mg by mouth as directed. - polyethylene glycol 3350 17 gram/dose powder Take 17 g by mouth. - zolpidem (AMBIEN) 5 mg tablet TAKE ONE TABLET BY MOUTH DAILY AT BEDTIME NEEDED FOR SLEEP - lithium carbonate (ESKALITH) 300 mg capsule TAKE ONE TABLET BY MOUTH IN THE MORNING AND TWO TABLETS BY MOUTH IN THE EVENING - levothyroxine (SYNTHROID) 100 mcg tablet Take 100 mcg by mouth once daily. - glipiZIDE (GLUCOTROL XL) 10mg 24 hr tablet Take 10 mg by mouth once daily. - losartan (COZAAR) 100 mg tablet Take 100 mg by mouth once daily. - montelukast (SINGULAIR) 10 mg tablet Take 10 mg by mouth once daily. - metFORMIN (GLUCOPHAGE) 1,000 mg tablet Take 1,000 mg by mouth twice daily. - levomilnacipran ER (FETZIMA ER) 40 mg capsule Take by mouth once daily. - ALPRAZOLAM 2 mg tablet Take 2 mg by mouth three times daily as needed. Indications: Anxiety Problem List As Of Date 04/06 (more content not included)... [facility] 04-15-2024 [facility] Telephone (GEOFF[place]N) KAYA SCHILLING ([id number]) 1965 F Date Time Provider Department 04/15/24 FABY PERES During your visit today, we recorded the following information about you: Faby Peres MD 04/15/2024 3:15 PM Addendum I received a page for the pt and spoke with her and caregiver, Fidelina, on the phone today. Briefly, she is a 59 yo female with gastric cancer, currently in the middle of treatment planning. She is followed by Pall [facility] (Lillie Richter CNP) for pain management. Fidelina said that she needs a doctor to approve the script for buprenorphine TD 10 mcg/hr sent to [facility] in [place], [place] yesterday. I then spoke with the pharmacy staff ([phone]), who mentioned that this drug will need prior authorization approval from the pt's medical insurance. I told the staff and Fidelina that this can be accomplished by our team on Wednesday, and that for now, the patient can take [place] 10/325 1 tablet q6 hrs prn. Fidelina added that she will try to pay for buprenorphine [id number], and may need to call have it called in to another pharmacy. I gave her our contact information. Faby Peres MD, FACP, FAAM Pager [phone] April 15, 2024 2:16 PM CC: Lillie Richter CNP [facility] Pall Med Pool Addendum I spoke to Fidelina once again, who wanted buprenorphine TD 10 mcg/hr sent to another pharmacy ([facility] in [place], [place]). The following prescription(s) will be transmitted electronically to the patient's pharmacy of choice. Requested Prescriptions Signed Prescriptions Disp Refills buprenorphine (BUTRANS) 10 mcg/hour 4 Patch 0 Sig: Apply 1 Patch as directed one time a week for 30 days. Authorizing Provider: FABY PERES MD, FACP, [facility] Pager [phone] April 15, 2024 3:15 PM Faby Peres MD 04/15/2024 3:16 PM Signed Addended by: FABY PERES on: 04/15/2024 03:16 PM Modules accepted: Orders Allergies As of Date: 04/15/2024 Noted Allergy Reaction PERCOCET (OXYCODONE-ACETAMINOPHE N)02/21/2015 8 - GI Upset STADOL (BUTORPHANOL TARTRATE) 10/26/2013 11 - Vomiting Comments: incoherent Date Reviewed: 04/14/2024 Reviewed by: Erendira Aguillon RD - Fully Assessed Reason for Visit: Medication Problem [65] Visit Diagnoses: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) [C16.0] Cancer related pain [G89.3] Order(s):buprenorphine (BUTRANS) 10 mcg/hourApply 1 Patch as directed one time a week for 30 days.Disp: 4 PatchRfl: 0 Prescriptions as of 04/15/2024 - buprenorphine (BUTRANS) 10 mcg/hour Apply 1 Patch as directed one time a week for 30 days. - promethazine (PHENERGAN) 25 mg tablet Take 1 tablet by mouth every 6 hours as needed for nausea/vomiting. - linaCLOtide (LINZESS) 290 mcg capsule Take 1 capsule by mouth once daily. - OLANZapine (ZYPREXA) 10 mg tablet Take 1 tablet by mouth daily at bedtime. - naloxone 4 mg/actuation nasal spray (NARCAN) Use 1 spray in one nostril as needed for overdose. May repeat every 2 to 3 min in alternating nostrils until medical assistance is available - HYDROcodone-Acetaminoph en (NORCO) 10-325 mg per tablet Take 1 tablet by mouth every 6 hours as needed for pain for up to 15 days. - apixaban (ELIQUIS) 5 mg tab(s) Take 10 mg by mouth as directed. - polyethylene glycol 3350 17 gram/dose powder Take 17 g by mouth. - zolpidem (AMBIEN) 5 mg tablet TAKE ONE TABLET BY MOUTH DAILY AT BEDTIME NEEDED FOR SLEEP - lithium carbonate (ESKALITH) 300 mg capsule TAKE ONE TABLET BY MOUTH IN THE MORNING AND TWO TABLETS BY MOUTH IN THE EVENING - levothyroxine (SYNTHROID) 100 mcg tablet Take 100 mcg by mouth once daily. - glipiZIDE (GLUCOTROL XL) 10mg 24 hr tablet Take 10 mg by mouth once daily. - losartan (COZAAR) 100 mg tablet Take 100 mg by mouth once daily. - montelukast (SINGULAIR) 10 mg tablet Take 10 mg by mouth once daily. - metFORMIN (GLUCOPHAGE) 1,000 mg tablet Take 1,000 mg by mouth twice daily. - levomilnacipran ER (FETZIMA ER) 40 mg capsule Take by mouth once daily. - ALPRAZOLAM 2 mg tablet Take 2 mg by mouth three times daily as needed. Indications: Anxiety Problem List As Of Date 04/15/2024 Noted Resolved Anemia [D64.9] 10/26/2013 Iron deficiency [...] deficiency anemia due to chronic blood los*05/25/2022 Megaloblas (more content not included)... [facility]OV[facility] 04-14-2024 CNOV Office Visit ([facility] ) KAYA SCHILLING ([id number]) 1965 F Date Time Provider Department 04/14/24 8:30 AM [facility] During your visit today, we recorded the following information about you: Temperature Pulse Respiration Blood pressure 97.4 degrees 96/minute 16/minute 149/79 Weight Height 52.4 kg 1.651 m Lillie Richter, CABLE TELEVISION LINE TECHNICIAN.FLOOR CLERK 04/14/2024 10:48 AM Addendum PALLIATIVE MEDICINE INITIAL CONSULT SERVICE DATE: 04/14/2024 Referring Physician: Beto Vivar (Marianna) [address] [place] [address] [place] [address] Medical Oncologist: Beto Vivar MD Primary Physician: Kostas Steward MD, DO REASON FOR CONSULT: Symptom Management Subjective Kaya Schilling is a 59 year old female with history of Gastric Cancer, PE, DM2, Bipolar, Hypothyroidism, Hep C, Anemia.The patient presented 02/13/2024 to [facility] emergency room for evaluation of left [...] lower quad. She has a prescription for [place] 06/08/2025 was directed to take 1 every [...] date: Arthritis No date: Bipolar 1 disorder ([facility]) No date: Broken jaw ([facility]) Comment: no surgery No date: COPD (chronic obstructive pulmonary disease) ([facility]) No date: Diabetes mellitus (adult onset) ([facility]) No date: Gastric carcinoma ([facility]) No date: History of broken nose Comment: had septoplasty No date: Manic depression ([facility]) Comment: Dr. Rees No date: Midline low back pain without sciatica, unspecified chronicity No date: Neck pain No date: Pneumonia No date: PTSD (post-traumatic stress disorder) No date: Scoliosis No date: Thyroid disease No date: Unintended weight loss PAST SURGICAL HISTORY: PAST SURGICAL HISTORY No date: BLADDER SURGERY HX Comment: mesh sling No date: COLONOSCOPY Comment: w/EGD AND biopsy of stomach mass No date: EXCIS BARTHOLIN GLAND/CYST No date: NOSE SURGERY HX Comment: septum rconstruction No date: REPAIR RECTOCELE SEPARATE PROCEDURE No date: THYROID SURGERY HX Comment: biopsy done no CA No date: TUBAL LIGATION HX CURRENT MEDICATIONS: HYDROcodone-acetaminoph en 2.5-325 mg tab Take 1 tablet by [...] TWICE DAILY loratadine (CLARITIN) 10 mg tablet Ta (more content not included)... [facility] PAIN PANEL, UR QUANTon 04-14 8-Tnzyborxsq-3,5-Di methyl-3,3-Diphenyl pyrrolidine (EDDP) Confirm (U) [Mass/Vol] <6 Normal <6 [facility] Comment on above: Order Comment: Speci men Type: URINE SPECIMENOrdering Facility: [facility] Address: [address] [place] [address] Result Comment: EDDP is a metabolite of methadone. Performed By: #### L [id number] ####[facility] LABIA [id number] [place] [address] [place] 6-Monoacetylmorphin e (6-MARICEL) (U) [Mass/Vol] <5 Normal <5 [facility] Comment on above: Order Comment: Speci men Type: URINE SPECIMENOrdering Facility: [facility] Address: [address] [place] [address] Result Comment: 6-MA M (6-monoacetylmorphine, also known as 6-acetylmorphine) is a unique metabolite of heroin. Presence of 6-MARICEL indicates use of heroin. 6-MARICEL is further metabolized to morphine and absence of 6-MARICEL does not rule out the use of heroin. Performed By: #### L [id number] ####[facility] LABIA [id number] [place] [address] [place] Amphetamine Confirm (U) [Mass/Vol] <5 Normal <5 [facility] Comment on above: Order Comment: Speci men Type: URINE SPECIMENOrdering Facility: [facility] Address: [address] [place] [address] Performed By: #### L [id number] ####[facility] LABIA [id number] [place] [address] [place] Benzoylecgonine Confirm (U) [Mass/Vol] <24 Normal <24 [facility] Comment on above: Order Comment: Speci men Type: URINE SPECIMENOrdering Facility: [facility] Address: [address] [place] [address] Result Comment: Mario oylecgonine is a metabolite of cocaine. Performed By: #### L [id number] ####[facility] LABIA [id number] [place] [address] [place] Buprenorphine (U) [Mass/Vol] <20 Normal <20 [facility] Comment on above: Order Comment: Speci men Type: URINE SPECIMENOrdering Facility: [facility] Address: [address] [place] [address] Performed By: #### L [id number] ####[facility] LABIA [id number] [place] [address] [place] Cannabinoids Confirm (U) [Mass/Vol] <16 Normal <16 City [facility] Comment on above: Order Comment: Speci men Type: URINE SPECIMENOrdering Facility: [facility] Address: [address] [place] [address] Result Comment: Tetr ahydrocannabinol carboxylic acid (THCA) is a metabolite of jvvvu-4-eqvbigghlqhjsxaigfaq which is the main active component of marijuana. Performed By: #### L [id number] ####[facility] [id number] [place] [address] [place] Codeine Confirm (U) [Mass/Vol] <11 Normal <11 [facility] Comment on above: Order Comment: Speci men Type: URINE SPECIMENOrdering Facility: [facility] Address: [address] [place] [address] Performed By: #### L [id number] ####[facility] [id number] [place] [address] [place] Dihydrocodeine Confirm (U) [Mass/Vol] 708 ng/mL High <5 [facility] Comment on above: Order Comment: Speci men Type: URINE SPECIMENOrdering Facility: [facility] Address: [address] [place] [address] Result Comment: The presence of dihydrocodeine may arise from dihydrocodeine containing drugs or from the metabolism of hydrocodone. Performed By: #### L [id number] ####[facility] [id number] [place] [address] [place] fentaNYL Confirm (U) [Mass/Vol] <6 Normal <6 [facility] Comment on above: Order Comment: Speci men Type: URINE SPECIMENOrdering Facility: [facility] Address: [address] [place] [address] Performed By: #### L [id number] ####[facility] LABCLIA [id number] [place] [address] [place] HYDROcodone Confirm (U) [Mass/Vol] 4329 ng/mL High <8 [facility] Comment on above: Order Comment: Speci men Type: URINE SPECIMENOrdering Facility: [facility] Address: [address] [place] [address] Result Comment: Hydr ocodone may arise from hydrocodone containing drugs or by metabolism of dihydrocodeine. Hydrocodone is also a minor metabolite of codeine, and may be detected with elevated levels of codeine. Hydrocodone is metabolized to hydromorphone and dihydrocodeine. Performed By: #### L [id number] ####[facility] LABCLIA [id number] [place] [address] [place] HYDROmorphone Confirm (U) [Mass/Vol] 4809 ng/mL High <5 [facility] Comment on above: Order Comment: Speci men Type: URINE SPECIMENOrdering Facility: [facility] Address: [address] [place] [address] Result Comment: Hydr omorphone may arise from hydromorphone containing drugs or by metabolism of morphine and hydrocodone. Performed By: #### L [id number] ####[facility] LABCLIA [id number] [place] [address] [place] Methadone Confirm (U) [Mass/Vol] <16 Normal <16 [facility] Comment on above: Order Comment: Speci men Type: URINE SPECIMENOrdering Facility: [facility] Address: [address] [place] [address] Performed By: #### L [id number] ####[facility] LABCLIA [id number] [id number] [address] [place] Methamphetamine Confirm (U) [Mass/Vol] <8 Normal <8 [facility] Comment on above: Order Comment: Speci men Type: URINE SPECIMENOrdering Facility: [facility] Address: [address] [place] [address] Performed By: #### L [id number] ####[facility] LABIA [id number] [place] [address] [place] Morphine Confirm (U) [Mass/Vol] <10 Normal <10 [facility] Comment on above: Order Comment: Speci men Type: URINE SPECIMENOrdering Facility: [facility] Address: [address] [place] [address] Result Comment: Morp taylor is a metabolite of codeine and heroin. Performed By: #### L [id number] ####[facility] LABIA [id number] [address] [place] Norbuprenorphine (U) [Mass/Vol] <20 Normal <20 [facility] Comment on above: Order Comment: Speci men Type: URINE SPECIMENOrdering Facility: [facility] Address: [address] [place] [address] Result Comment: Norb uprenorphine is the primary active metabolite of buprenorphine. Performed By: #### L [id number] ####[facility] LABIA [id number] [place] [address] [place] Norfentanyl Confirm (U) [Mass/Vol] <6 Normal <6 [facility] Comment on above: Order Comment: Speci men Type: URINE SPECIMENOrdering Facility: [facility] Address: [address] [place] [address] Result Comment: Norf entanyl is a metabolite of fentanyl. Performed By: #### L [id number] ####[facility] LABCLIA [id number] [place] [address] [place] Nortramadol (U) [Mass/Vol] <20 Normal <20 [facility] Comment on above: Order Comment: Speci men Type: URINE SPECIMENOrdering Facility: [facility] Address: [address] [place] [address] Result Comment: Desm ethyltramadol is a metabolite of tramadol. Performed By: #### L [id number] ####[facility] [id number] [place] [address] [place] NOTE,UR PAIN CALABRESE Normal [facility] Comment on above: Order Comment: Speci men Type: URINE SPECIMENOrdering Facility: [facility] Address: [address] [place] [address] Result Comment: This test is for medical use only. This test was developed and its performance characteristics determined by [facility]'s [facility] ([facility] It has not been cleared or approved by the FDA. [facility] is regulated under CLIA as qualified to perform high-complexity testing. This test is used for clinical purposes. It should not be regarded as investigational or for research. Performed By: #### L [id number] ####[facility] LABIA [id number] [place] [address] [place] oxyCODONE Confirm (U) [Mass/Vol] <10 Normal <10 [facility] Comment on above: Order Comment: Speci men Type: URINE SPECIMENOrdering Facility: [facility] Address: [address] [place] [address] Performed By: #### L [id number] ####[facility] LABIA [id number] [place] [address] [place] oxyMORphone Confirm (U) [Mass/Vol] <5 Normal <5 [facility] Comment on above: Order Comment: Speci men Type: URINE SPECIMENOrdering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 Grisel Ludwig on 03-24-2024 Albumin [Mass/Vol] 3.8 g/dL Low 3.9 - 4.9 g/dL [facility] ALP [Catalytic activity/Vol] 110 U/L 34 - 123 U/L [facility] ALT [Catalytic activity/Vol] 7 U/L 7 - 38 U/L [facility] Anion gap [Moles/Vol] 9 mmol/L 8 - 15 mmol/L [facility] AST [Catalytic activity/Vol] 18 U/L 13 - 35 U/L [facility] Bilirubin [Mass/Vol] 0.4 mg/dL 0.2 - 1.3 mg/dL [facility] Calcium [Mass/Vol] 10.8 mg/dL High 8.5 - 10. 2 mg/dL [facility] Chloride [Moles/Vol] 104 mmol/L 98 - 107 mmol/L [facility] CO2 [Moles/Vol] 24 mmol/L 22 - 30 mmol/L [facility] Creatinine [Mass/Vol] 1.25 mg/dL High 0.58 - 0.96 mg/dL [facility] GFR/1.73 sq M.predicted among non-blacks MDRD (S/P/Bld) [Vol rate/Area] 49 mL/min/{1.73_m2} Low - PINF [facility] Comment on above: Estimated Glomerular Filtration [...] 227 mg/dL High 74 - 99 mg/dL [facility] Comment on above: The [place] Diab[employer] s Association (ADA) provides guidance for [...] Standards of Medical Care in Diabetes 2016, [place] [employer]. Diabetes Care. 2016.39(Suppl 1). Interpretation and review of laboratory results Abnormal [facility] Potassium [Moles/Vol] 3.7 mmol/L 3.7 - 5.1 mmol/L [facility] Protein [Mass/Vol] 6.9 g/dL 6.3 - 8.0 g/dL [facility] Sodium [Moles/Vol] 137 mmol/L 136 - 144 mmol/L [facility] Urea nitrogen [Mass/Vol] 24 mg/dL High 7 - 21 mg/dL [facility] VITAMIN B12on 03-24-2024 Cobalamin (Vitamin B12) [Mass/Vol] pg/mL Low 232 - 1245 pg/mL [facility] Comment on above: Result rechecked. CBC W Auto Differential pane l (Bld)on 03-23-2024 Basophils (Bld) [#/Vol] [facility] Basophils/100 WBC (Bld) 0.2 % [facility] Differential cell count method Nom (Bld) Auto [facility] Eosinophils (Bld) [#/Vol] 0.04 10*3/uL [facility] Eosinophils/100 WBC (Bld) 0.8 % [facility] Erythrocyte distribution width (RBC) [Ratio] 17.8 % High 11.5 - 15.0 % [facility] Hematocrit (Bld) [Volume fraction] 22.5 % Low 36.0 - 46.0 % [facility] Hemoglobin (Bld) [Mass/Vol] 7.6 g/dL Low 11.5 - 15.5 g/dL [facility] Immature granulocytes (Bld) [#/Vol] [facility] Immature granulocytes/100 WBC (Bld) 0.4 % [facility] Interpretation and review of laboratory results Abnormal [facility] Lymphocytes (Bld) [#/Vol] 0.73 10*3/uL Low [facility] Lymphocytes/100 WBC (Bld) 15.4 % [facility] MCH (RBC) [Entitic mass] 38.8 pg High 26.0 - 34.0 pg [facility] MCHC (RBC) [Mass/Vol] 33.8 g/dL 30.5 - 36.0 g/dL [facility] MCV (RBC) [Entitic vol] 114.8 fL High 80.0 - 100.0 fL [facility] Monocytes (Bld) [#/Vol] 0.31 10*3/uL [facility] Monocytes/100 WBC (Bld) 6.5 % [facility] Neutrophils (Bld) [#/Vol] 3.64 10*3/uL [facility] Neutrophils/100 WBC (Bld) 76.7 % [facility] Nucleated RBC (Bld) [#/Vol] [facility] Nucleated RBC/100 WBC (Bld) [Ratio] 0.0 % /100 WBC [facility] Platelet mean volume (Bld) [Entitic vol] 9.0 fL 9.0 - 12.7 fL [facility] Platelets (Bld) [#/Vol] 247 10*3/uL [facility] RBC (Bld) [#/Vol] 1.96 10*6/uL Low 3.90 - 5.2 0 m/uL [facility] WBC (Bld) [#/Vol] 4.75 10*3/uL [facility] Basophils (Bld) [#/Vol] 10*3/uL Normal <0.11 [facility] Comment on above: Order Comment: Speci men Type: BLOOD SPECIMENOrdering Facility: [facility] Address: [address] [place] [address] Performed By: #### 5 7021-8 ####[facility] LABCLIA [id number] [place] [address] Basophils/100 WBC (Bld) 0.2 % [facility] Comment on above: Order Comment: Speci men Type: BLOOD SPECIMENOrdering Facility: [facility] Address: [address] [place] [address] Performed By: #### 5 7021-8 ####[facility] LABCLIA [id number] [place] [address] Differential cell count method Nom (Bld) Auto [facility] Comment on above: Order Comment: Speci men Type: BLOOD SPECIMENOrdering Facility: [facility] Address: [address] [place] [address] Performed By: #### 5 7021-8 ####[facility] LABCLIA [id number] [place] [address] Eosinophils (Bld) [#/Vol] 0.04 10*3/uL Normal <0.46 [facility] Comment on above: Order Comment: Speci men Type: BLOOD SPECIMENOrdering Facility: [facility] Address: [address] [place] [address] Performed By: #### 5 7021-8 ####[facility] LABCLIA [id number] [place] [address] Eosinophils/100 WBC (Bld) 0.8 % [facility] Comment on above: Order Comment: Speci men Type: BLOOD SPECIMENOrdering Facility: [facility] Address: [address] [place] [address] Performed By: #### 5 7021-8 ####[facility] LABCLIA [id number] [place] [address] Erythrocyte distribution width (RBC) [Ratio] 17.8 % High 11.5-15.0 [facility] Comment on above: Order Comment: Speci men Type: BLOOD SPECIMENOrdering Facility: [facility] Address: [address] [place] [address] Performed By: #### 5 7021-8 ####[facility] LABCLIA [id number] [place] [address] Hematocrit (Bld) [Volume fraction] 22.5 % Low 36.0-46.0 [facility] Comment on above: Order Comment: Speci men Type: BLOOD SPECIMENOrdering Facility: [facility] Address: [address] [place] [address] Performed By: #### 5 7021-8 ####[facility] LABCLIA [id number] [place] [address] Hemoglobin (Bld) [Mass/Vol] 7.6 g/dL Low 11.5-15.5 [facility] Comment on above: Order Comment: Speci men Type: BLOOD SPECIMENOrdering Facility: [facility] Address: [address] [place] [address] Performed By: #### 5 7021-8 ####[facility] LABCLIA [id number] [place] [address] Immature granulocytes (Bld) [#/Vol] 10*3/uL Normal <0.10 [facility] Comment on above: Order Comment: Speci men Type: BLOOD SPECIMENOrdering Facility: [facility] Address: [address] [place] [address] Performed By: #### 5 7021-8 ####[facility] LABCLIA [id number] [place] [address] Immature granulocytes/100 WBC (Bld) 0.4 % [facility] Comment on above: Order Comment: Speci men Type: BLOOD SPECIMENOrdering Facility: [facility] Address: [address] [place] [address] Performed By: #### 5 7021-8 ####[facility] LABCLIA [id number] [place] [address] Lymphocytes (Bld) [#/Vol] 0.73 10*3/uL Low 1.00-4.00 [facility] Comment on above: Order Comment: Speci men Type: BLOOD SPECIMENOrdering Facility: [facility] Address: [address] [place] [address] Performed By: #### 5 7021-8 ####[facility] LABIA [id number] [place] [address] Lymphocytes/100 WBC (Bld) 15.4 % [facility] Comment on above: Order Comment: Speci men Type: BLOOD SPECIMENOrdering Facility: [facility] Address: [address] [place] [address] Performed By: #### 5 7021-8 ####[facility] LABCLIA [id number] [place] [address] MCH (RBC) [Entitic mass] 38.8 pg High 26.0-34.0 [facility] Comment on above: Order Comment: Speci men Type: BLOOD SPECIMENOrdering Facility: [facility] Address: [address] [place] [address] Performed By: #### 5 7021-8 ####[facility] LABIA [id number] [place] [address] MCHC (RBC) [Mass/Vol] 33.8 g/dL Normal 30.5-36.0 [facility] Comment on above: Order Comment: Speci men Type: BLOOD SPECIMENOrdering Facility: [facility] Address: [address] [place] [address] Performed By: #### 5 7021-8 ####[facility] LABCLIA [id number] [place] [address] MCV (RBC) [Entitic vol] 114.8 fL High 80.0-100.0 [facility] Comment on above: Order Comment: Speci men Type: BLOOD SPECIMENOrdering Facility: [facility] Address: [address] [place] [address] Performed By: #### 5 7021-8 ####[facility] LABCLIA [id number] [place] [address] Monocytes (Bld) [#/Vol] 0.31 10*3/uL Normal <0.87 [facility] Comment on above: Order Comment: Speci men Type: BLOOD SPECIMENOrdering Facility: [facility] Address: [address] [place] [address] Performed By: #### 5 7021-8 ####[facility] LABCLIA [id number] [place] [address] Monocytes/100 WBC (Bld) 6.5 % [facility] Comment on above: Order Comment: Speci men Type: BLOOD SPECIMENOrdering Facility: [facility] Address: [address] [place] [address] Performed By: #### 5 7021-8 ####[facility] LABCLIA [id number] [place] [address] Neutrophils (Bld) [#/Vol] 3.64 10*3/uL Normal 1.45-7.50 [facility] Comment on above: Order Comment: Speci men Type: BLOOD SPECIMENOrdering Facility: [facility] Address: [address] [place] [address] Performed By: #### 5 7021-8 ####[facility] LABCLIA [id number] [place] [address] Neutrophils/100 WBC (Bld) 76.7 % [facility] Comment on above: Order Comment: Speci men Type: BLOOD SPECIMENOrdering Facility: [facility] Address: [address] [place] [address] Performed By: #### 5 7021-8 ####[facility] LABCLIA [id number] [place] [address] Nucleated RBC (Bld) [#/Vol] 10*3/uL Normal <0.01 [facility] Comment on above: Order Comment: Speci men Type: BLOOD SPECIMENOrdering Facility: [facility] Address: [address] [place] [address] Performed By: #### 5 7021-8 ####[facility] LABCLIA [id number] [place] [address] Nucleated RBC/100 WBC (Bld) [Ratio] 0.0 /100 WBC [facility] Comment on above: Order Comment: Speci men Type: BLOOD SPECIMENOrdering Facility: [facility] Address: [address] [place] [address] Performed By: #### 5 7021-8 ####[facility] LABCLIA [id number] [place] [address] Platelet mean volume (Bld) [Entitic vol] 9.0 fL Normal 9.0-12.7 [facility] Comment on above: Order Comment: Speci men Type: BLOOD SPECIMENOrdering Facility: [facility] Address: [address] [place] [address] Performed By: #### 5 7021-8 ####[facility] LABCLIA [id number] [place] [address] Platelets (Bld) [#/Vol] 247 10*3/uL Normal 150-400 [facility] Comment on above: Order Comment: Speci men Type: BLOOD SPECIMENOrdering Facility: [facility] Address: [address] [place] [address] Performed By: #### 5 7021-8 ####[facility] LABCLIA [id number] [place] [address] RBC (Bld) [#/Vol] 1.96 10*6/uL Low 3.90-5.20 [facility] Comment on above: Order Comment: Speci men Type: BLOOD SPECIMENOrdering Facility: [facility] Address: [address] [place] [address] Performed By: #### 5 7021-8 ####[facility] LABCLIA [id number] [place] [address] WBC (Bld) [#/Vol] 4.75 10*3/uL Normal 3.70-11.00 [facility] Comment on above: Order Comment: Speci men Type: BLOOD SPECIMENOrdering Facility: [facility] Address: [address] [place] [address] Performed By: #### 5 7021-8 ####[facility] LABIA [id number] [place] [address] [facility] 03-23-2024 Carcinoembryonic Ag [Mass/Vol] 2.2 ng/mL Normal <=2.9 [facility] Comment on above: Order Comment: Speci men Type: BLOOD SPECIMENOrdering Facility: [facility] Address: [address] [place] [address] Result Comment: Carc inoembryonic antigen test is used as an aid in monitoring response to treatment or recurrence in patients with established colorectal, breast, lung, prostatic, pancreatic, and ovarian carcinomas. Clinical correlation is required. The Carcinoembryonic antigen test was performed using the Sophie Anshul Unicel DXI paramagnetic particle chemiluminescent immunoassay method. Results obtained with different assay methods or kits cannot be used interchangeably. Performed By: #### 2 4108-3, 9-6 ####[facility] LABCLIA [id number] [address] [place] CNNURSEon 03-23-2024 CNNURSE Nurse Visit (HEMASA) KAYA SCHILLING ([id number]) 1965 F Date Time Provider Department 03/23/24 4:15 PM BRE NURSE BELTRAN CROW During your visit today, we recorded the following information about you: Amirah Koch MA 03/23/2024 4:30 PM Signed Patient Identification confirmed: yes. Injection given and documented on NOV per provider order. Amirah Koch MA Referring Provider: BETO VIVAR [[id number]] Allergies As of Date: 03/23/2024 Noted Allergy Reaction PERCOCET (OXYCODONE-ACETAMINOPHE N)02/21/2015 8 - GI Upset STADOL (BUTORPHANOL TARTRATE) 10/26/2013 11 - Vomiting Comments: incoherent Date Reviewed: 03/23/2024 Reviewed by: Kalina Lopez MA - Fully Assessed Primary Visit Diagnosis:Megaloblastic anemia due to vitamin B12 deficiency [D53.1] Order(s):TREATMENT PARAMETER-NOT NEEDED [4333011] Order #: [id number]: 1 BCN NURSING COMMUNICATION [[id number]] Order #: [id number]: 1 Prescriptions as of 03/23/2024 - HYDROcodone-Acetaminoph [...] deficie*05/25/2022 Visit Notes: >> Amirah Koch MA [facility] Mar 23, 2024 4:25 PM Status: Signed Patient Identification confirmed: yes. Injection given and documented on NOV per provider order. Amirah Koch MA Prescriptions ordered this encounter Disp Refills Start End CYANOCOBALAMIN (VIT B-12) 1,000 MCG/* 03/23/2024 03/23/2024 Route: INTRAMUSCULA Encounter Status:Closed by AMIRAH KOCH on 03/23/24 [facility] CNOVSPon 03-23-2024 CNOVSP Visit (SP) Office (HEMASA) KAYA SCHILLING ([id number]) 1965 F Date Time Provider Department 03/23/24 4:00 PM BETO VIVAR During your visit today, we recorded the following information about you: Temperature Pulse Respiration Blood pressure 97.8 degrees 79/minute 16/minute 172/84 Weight 52.1 kg Beto Vivar MD 03/24/2024 9:52 AM Signed PATIENT NAME: Kaya Schilling DATE: 03/23/2024 PRIMARY CARE PHYSICIAN: Kostas Steward DO OTHER PHYSICIANS: Dr. Cong Montano, Dr. Ramires (Psych in [place]) HPI: This is a 59 year old female with recently diagnosed gastric cancer, referred for further management. The patient presented 02/13/2024 to [facility] emergency room for evaluation of left [...] upper quadrant and lower abdomen ., [place] with relief. Not maarried. 2 children. Family [...] type (HCC) Anemia Arthritis Bipolar 1 disorder ([facility]) Broken jaw ([facility]) no surgery COPD (chronic obstructive pulmonary disease) (HCC) Diabetes mellitus (adult onset) (HCC) Gastric carcinoma (HCC) History of broken nose had septoplasty Manic depression ([facility]) Dr. Rees Midline low back pain without [...] exposure: Past (more content not included)... [facility] CNPNon 03-23-2024 CNPN Telephone (HEMASA) KAYA SCHILLING ([id number]) 1965 F Date Time Provider Department 03/23/24 BREA VILLAGOMEZ During your visit today, we recorded the following information about you: Brea Villagomez RN 03/23/2024 8:54 AM Signed Per Minal Granados [facility] Pathology, pt's HER2 FISH analysis is still pending. BORA Weaver Rebecca, RN 03/29/2024 9:04 AM Signed Results printed from [facility] Everywhere and placed in Dr's mail folder [...] Status:Closed by BREA VILLAGOMEZ on 03/29/24 [facility] Cancer Ag19-9 SerPl-aCncon 0 03-23-2024 Cancer Ag 19-9 Qn 806.0 [arb'U]/mL High <36.0 C [facility] Comment on above: Order Comment: Speci men Type: BLOOD SPECIMENOrdering Facility: [facility] Address: [address] [place] [address] Result Comment: [facility] er antigen 19-9 test is used as an aid in monitoring response to treatment or recurrence in patients with established pancreatic, hepatobiliary, or gastrointestinal malignancies. Clinical correlation is required. The CA 19-9 Antigen test was performed using the Synthe[employer] Unicel DXI paramagnetic particle chemiluminescent immunoassay method. Results obtained with different assay methods or kits cannot be used interchangeably. Performed By: #### 2 4108-3, 2039-02 ####[facility] LABCLIA [id number] [place] [address] [place] Comprehensive metabolic 2000 panelon 03-23-2024 Albumin [Mass/Vol] 3.8 g/dL Low 3.9-4.9 [facility] Comment on above: Order Comment: Speci men Type: BLOOD SPECIMENOrdering Facility: [facility] Address: [address] [place] [address] Performed By: #### 2 4323-8 ####[facility] LABCLIA [id number] [place] [address] ALP [Catalytic activity/Vol] 110 U/L Normal 34-123 [facility] Comment on above: Order Comment: Speci men Type: BLOOD SPECIMENOrdering Facility: [facility] Address: [address] [place] [address] Performed By: #### 2 4323-8 ####[facility] LABCLIA [id number] [place] [address] ALT [Catalytic activity/Vol] 7 U/L Normal 7-38 [facility] Comment on above: Order Comment: Speci men Type: BLOOD SPECIMENOrdering Facility: [facility] Address: [address] [place] [address] Performed By: #### 2 4323-8 ####[facility] LABCLIA [id number] [place] [address] Anion gap [Moles/Vol] 9 mmol/L Normal 8-15 [facility] Comment on above: Order Comment: Speci men Type: BLOOD SPECIMENOrdering Facility: [facility] Address: [address] [place] [address] Performed By: #### 2 4323-8 ####[facility] LABCLIA [id number] [place] [address] AST [Catalytic activity/Vol] 18 U/L Normal 13-35 [facility] Comment on above: Order Comment: Speci men Type: BLOOD SPECIMENOrdering Facility: [facility] Address: [address] [place] [address] Performed By: #### 2 4323-8 ####[facility] LABCLIA [id number] [place] [address] Bilirubin [Mass/Vol] 0.4 mg/dL Normal 0.2-1.3 [facility] Comment on above: Order Comment: Speci men Type: BLOOD SPECIMENOrdering Facility: [facility] Address: [address] [place] [address] Performed By: #### 2 4323-8 ####[facility] LABCLIA [id number] [place] [address] Calcium [Mass/Vol] 10.8 mg/dL High 8.5-10.2 [facility] Comment on above: Order Comment: Speci men Type: BLOOD SPECIMENOrdering Facility: [facility] Address: [address] [place] [address] Performed By: #### 2 4323-8 ####[facility] LABCLIA [id number] [place] [address] Chloride [Moles/Vol] 104 mmol/L Normal 98-107 [facility] Comment on above: Order Comment: Speci men Type: BLOOD SPECIMENOrdering Facility: [facility] Address: [address] [place] [address] Performed By: #### 2 4323-8 ####[facility] LABCLIA [id number] [place] [address] CO2 [Moles/Vol] 24 mmol/L Normal 22-30 [facility] Comment on above: Order Comment: Speci men Type: BLOOD SPECIMENOrdering Facility: [facility] Address: [address] [place] [address] Performed By: #### 2 4323-8 ####[facility] LABCLIA [id number] [place] [address] Creatinine [Mass/Vol] 1.25 mg/dL High 0.58-0.96 [facility] Comment on above: Order Comment: Speci men Type: BLOOD SPECIMENOrdering Facility: [facility] Address: [address] [place] [address] Performed By: #### 2 4323-8 ####[facility] LABCLIA [id number] [place] [address] Creatinine and Glomerular filtration rate.predicted panel (S/P/Bld) 49 mL/min/1.73m??? Low >=60 [facility] Comment on above: Order Comment: Speci men Type: BLOOD SPECIMENOrdering Facility: [facility] Address: [address] [place] [address] Result Comment: Carmen mated Glomerular Filtration Rate [...] actual GFR. Performed By: #### 2 4323-8 ####[facility] LABCLIA [id number] [place] [address] Glucose [Mass/Vol] 227 mg/dL High 74-99 [facility] Comment on above: Order Comment: Speci men Type: BLOOD SPECIMENOrdering Facility: [facility] Address: [address] [place], [place] [address] Result Comment: The [place] Diabetes Association (ADA) provides guidance for cutoff [...] Standards of Medical Care in Diabetes 2016, [place] Diabetes Association. Diabetes Care. 2016.39(Suppl 1). Performed By: #### 2 4323-8 ####[facility] LABCLIA [id number] [place] [address] Potassium [Moles/Vol] 3.7 mmol/L Normal 3.7-5.1 [facility] Comment on above: Order Comment: Speci men Type: BLOOD SPECIMENOrdering Facility: [facility] Address: [address] [place] [address] Performed By: #### 2 4323-8 ####[facility] LABCLIA [id number] [place] [address] Protein [Mass/Vol] 6.9 g/dL Normal 6.3-8.0 [facility] Comment on above: Order Comment: Speci men Type: BLOOD SPECIMENOrdering Facility: [facility] Address: [address] [place], [place] [address] Performed By: #### 2 4323-8 ####[facility] LABCLIA [id number] [place] [address] Sodium [Moles/Vol] 137 mmol/L Normal 136-144 [facility] Comment on above: Order Comment: Speci men Type: BLOOD SPECIMENOrdering Facility: [facility] Address: [address] [place] [address] Performed By: #### 2 4323-8 ####[facility] LABCLIA [id number] [place] [address] Urea nitrogen [Mass/Vol] 24 mg/dL High 7-21 [facility] Comment on above: Order Comment: Speci men Type: BLOOD SPECIMENOrdering Facility: [facility] Address: [address] [place] [address] Performed By: #### 2 4323-8 ####[facility] LABCLIA [id number] [place] [address] Ferritin [facility] 2023 Ferritin [Mass/Vol] 19.5 ng/mL Normal 14.7-205.1 [facility] Comment on above: Order Comment: Speci men Type: BLOOD SPECIMENOrdering Facility: [facility] Address: [address] [place] [address] Performed By: #### 3 016-3, 59591-7, 2275-4, T4FTI ####[facility] LABCLIA [id number] [address] [address] [place] Iron and Iron binding capaci panelon 03-23-2024 Iron [Mass/Vol] 43 ug/dL Normal 41-186 [facility] Comment on above: Order Comment: Speci men Type: BLOOD SPECIMENOrdering Facility: [facility] Address: [address] [place] [address] Performed By: #### 3 016-3, 27367-4, 2275-4, T4FTI ####[facility] LABCLIA [id number] [address] [address] [place] Iron binding capacity [Mass/Vol] 292 ug/dL Normal 232-386 [facility] Comment on above: Order Comment: Speci men Type: BLOOD SPECIMENOrdering Facility: [facility] Address: [address] [place] [address] Performed By: #### 3 016-3, 45484-2, 6-4, T4FTI ####[facility] LABCLIA [id number] [place] [address] [place] Iron/TIBC [Molar ratio] 14.7 % Low 15.0-57.0 [facility] Comment on above: Order Comment: Speci men Type: BLOOD SPECIMENOrdering Facility: [facility] Address: [address] [place] [address] Performed By: #### 3 016-3, 89058-0, 6-4, T4FTI ####[facility] LABCLIA [id number] [address] [place] [facility] T4/FTI/T4Uon 03-23-2024 FTI 7.7 ug/dL Normal 5.3-10.8 [facility] Comment on above: Order Comment: Speci men Type: BLOOD SPECIMENOrdering Facility: [facility] Address: [address] [place] [address] Performed By: #### 3 016-3, 78992-4, 2275-4, T4FTI ####[facility] LABCLIA [id number] [address] [place] T4 [Mass/Vol] 8.2 ug/dL Normal 5.5-10.2 [facility] Comment on above: Order Comment: Speci men Type: BLOOD SPECIMENOrdering Facility: [facility] Address: [address] [place] [address] Performed By: #### 3 016-3, 66313-0, 6-4, T4FTI ####[facility] LABCLIA [id number] [address] [address] [place] T4 uptake [Mass/Vol] 1.06 Normal 0.91-1.19 [facility] Comment on above: Order Comment: Speci men Type: BLOOD SPECIMENOrdering Facility: [facility] Address: [address] [place] [address] Performed By: #### 3 016-3, 77172-4, 2276-4, T4FTI ####[facility] LABCLIA [id number] [place] [address] [place] TSH SerPl-aCncon 03-23-2024 TSH Qn 9.710 m[IU]/L High 0.270-4.200 [facility] Comment on above: Order Comment: Speci men Type: BLOOD SPECIMENOrdering Facility: [facility] Address: [address] [place] [address] Performed By: #### 3 016-3, 18424-6, 2276-4, T4FTI ####[facility] LABCLIA [id number] [place] [address] [place] Vit B12 SerPl-mCncon 024 Cobalamin (Vitamin B12) [Mass/Vol] pg/mL Low 232-1245 [facility] Comment on above: Order Comment: Speci men Type: BLOOD SPECIMENOrdering Facility: [facility] Address: [address] [place] [address] Result Comment: Resu lt rechecked. Performed By: #### 2 132-9 ####[facility] LABCLIA [id number] [place] [address] [place] Surgical Pathologyon 024 Surgical Pathology Normal [facility] Comment on above: Result Comment: [facility] [address] [place] [address] Surgical Pathology Consultation ADDENDUM [place] Patient Name:KAYA SCHILLING:1965 (Age: 59)Gender:FTaken:03/02/2024eported:03/08/2024hysician(s):Cong Montano D.O. ([phone])Copy To: Rec. #:[id number]: #[id number] Final Pathologic Diagnosis 1. Cardia mass biopsy: Invasive ADENOCARCINOMA, intestinal type, low-grade. 2. Ascending colon polyp; polypectomy: Nondiagnostic sample (only food particles noted). Report Electronically Signed Out wak/03/08/2024Rigoberto Fischer MD Addendum (PHS) Date Reported: 03/15/2024 Gastric HER2 Biomarker Reporting Template HER2 (by immunohistochemistry) Equivocal (score 2+) -see comment. Comment: The block has been sent out for HER2/apollo studies by FISH analysis; addendum to follow. Methods - Block: 1A Fixative: Formalin (Formalin-fixed, paraffin embedded tissue) HER2: FDA approved (test/vendor): Pathway/ [place], Primary Antibody: 4B5 Detection System: [place] ultraView Colmar DAB Detection Kit (indirect biotin-free detection) Scoring [...] Gastroesophageal Adenocarcinoma Guideline From the College of [place] Pathologists, [place] Society for Clinical Pathology, and [place] Society of Clinical Oncology. Arch Pathol Lab Med. 2016;140:6277-2460; doi:10.5858/arpa.0668-6944-QS; 10.5858/arpa.9406-4134-KR.s1) 2. Guero et al. HER2 diagnostics in gastric cancer-guideline validation and development of standardized immunohistochemical testing. [place] Arch. 2010; 457:299-307. 3. Benji YJ, Van Michaela E, Tim A, et al. Trastuzumab in combination with chemotherapy versus chemotherapy alone for treatment of HER2-positive gastric or gastro-oesophageal junction cancer (ToGA): A phase 3, open-label, randomized controlled trial. Lancet. 2010;376(1349):324-607. Electronically Signed Out Rigoberto Fischer MD Addendum (PHS) Date Reported: 03/23/2024 Results of testing for HER2, Gastroesophageal FISH, Tissue are received on 03/23/2024 from [facility], [address] [place] [address] and are as follows: Result Summary: Negative [...] chromosome 17 centromere (D17Z1) control probe ([employer] Two technologists score signals in 60 total nuclei from invasive or metastatic tumor after confirmation of probe performance by concurrent controls. Scoring method: Manual. Please see the complete report from [facility] in the patient???s electronic medical record. Electronically Signed Out Rigoberto Fischer, (more content not included)... COMPLETE BLOOD COUNTon 01-20 Erythrocyte distribution width (RBC) [Ratio] 22.6 % High 11.5-15.0 [facility] Comment on above: Performed By: #### C BC CMP, HA1C #### [facility] ([id number]) [address], [address] [place] [address] Hematocrit (Bld) [Volume fraction] 27.1 % Low 35-47 [facility] Comment on above: Performed By: #### C BC CMP, HA1C #### [facility] ([id number]) [address], [address] [place] [address] Hemoglobin (Bld) [Mass/Vol] 9.1 g/dL Low 11.7-15.5 [facility] Comment on above: Performed By: #### C BC, CMP, HA1C #### [facility] ([id number]) [address], [address] [place] [address] MCH (RBC) [Entitic mass] 36.9 pg High 27-34 [facility] Comment on above: Performed By: #### C BC, CMP, HA1C #### [facility] ([id number]) [address], [address] [place] [address] MCHC (RBC) [Mass/Vol] 33.7 g/dL Normal 32-36 [facility] Comment on above: Performed By: #### C BC, CMP, HA1C #### [facility] ([id number]) [address], [address] [place] [address] MCV (RBC) [Entitic vol] 109 fL High 80-100 [facility] Comment on above: Performed By: #### C BC, CMP, HA1C #### [facility] ([id number]) [address], [facility] [address] [place] [address] Platelet mean volume (Bld) [Entitic vol] 6.8 fL Low 7-12 [facility] Comment on above: Performed By: #### C BC, CMP, HA1C #### [facility] ([id number]) [address] [place] [address] Platelets (Bld) [#/Vol] 397 10*3/uL Normal 150-450 [facility] Comment on above: Performed By: #### C BC, CMP, HA1C #### [facility] ([id number]) [address] [address] [place] [address] RBC COUNT 2.47 X10E12/L Low 3.80-5.20 [facility] Comment on above: Performed By: #### C BC, CMP, HA1C #### [facility] ([id number]) [address] [address] [place] [address] WBC (Bld) [#/Vol] 4.8 10*3/uL Normal 4.0-11.0 [facility] Comment on above: Performed By: #### C BC, CMP, HA1C #### [facility] ([id number]) [address] [place] [address] COMPREHENSIVE METABOLIC PANE Jj 01-21-2024 Albumin [Mass/Vol] 3.9 g/dL Normal 3.2-5.3 [facility] Comment on above: Performed By: #### C BC, CMP, HA1C #### [facility] ([id number]) [address] [place] [address] ALP [Catalytic activity/Vol] 89 U/L Normal 39-130 [facility] Comment on above: Performed By: #### C BC, CMP, HA1C #### [facility] ([id number]) [address] [place] [address] ALT [Catalytic activity/Vol] 8 U/L Normal 0-31 [facility] Comment on above: Performed By: #### C DILCIA, CMP, HA1C #### [facility] ([id number]) [address] [place] [address] Anion gap [Moles/Vol] 10 mmol/L Normal 5-15 [facility] Comment on above: Performed By: #### Payton HA, CMP, HA1C #### [facility] ([id number]) [address] [place] [address] AST [Catalytic activity/Vol] 13 U/L Normal 0-41 [facility] Comment on above: Performed By: #### C BC, CMP, HA1C #### [facility] ([id number]) [address] [place] [address] Bilirubin [Mass/Vol] 0.9 mg/dL Normal 0.3-1.2 [facility] Comment on above: Performed By: #### C BC, CMP, HA1C #### [facility] ([id number]) [address] [place] [address] Calcium [Mass/Vol] 10.7 mg/dL High 8.5-10.5 [facility] Comment on above: Performed By: #### Payton HA CMP, HA1C #### [facility] ([id number]) [address] [place] [address] Chloride [Moles/Vol] 104 mmol/L Normal 98-109 [facility] Comment on above: Performed By: #### Payton HA CMP, HA1C #### [facility] ([id number]) [address] [place] [address] CO2 [Moles/Vol] 25 mmol/L Normal 22-32 [facility] Comment on above: Performed By: #### Payton HA CMP, HA1C #### [facility] ([id number]) [address] [place] [address] Creatinine [Mass/Vol] 1.03 mg/dL High 0.40-1.00 [facility] Comment on above: Result Comment: METH OD TRACEABLE TO IDMS STANDARD Performed By: #### C VALERIE HA, HA1C #### [facility] ([id number]) [address] [place] [address] GFR/1.73 sq M.predicted among non-blacks MDRD (S/P/Bld) [Vol rate/Area] 62 mL/min/{1.73_m2} Normal >59 [facility] Comment on above: Result Comment: Reported eGFR is based on the CKD-EPI 2020 equation that does not use a race coefficient. Performed By: #### C VALERIE HA, HA1C #### [facility] ([id number]) [address] [place] [address] Glucose [Mass/Vol] 175 mg/dL High 65-99 [facility] Comment on above: Performed By: #### Payton HA CMP, HA1C #### [facility] ([id number]) [address] [place] [address] Potassium [Moles/Vol] 3.8 mmol/L Normal 3.5-5.0 [facility] Comment on above: Performed By: #### C DILCIA CMP, HA1C #### [facility] ([id number]) [address], [facility] [address] [place] [address] Protein [Mass/Vol] 7.0 g/dL Normal 6.0-8.0 [facility] Comment on above: Performed By: #### [place] BC, CMP, HA1C #### [facility] ([id number]) [address], [facility] [address] [place] [address] Sodium [Moles/Vol] 139 mmol/L Normal 134-146 [facility] Comment on above: Performed By: #### Payton HA CMP, HA1C #### [facility] ([id number]) [address] [address] [place] [address] Urea nitrogen [Mass/Vol] 20 mg/dL Normal 5-23 [facility] Comment on above: Performed By: #### Payton HA, CMP, HA1C #### [facility] ([id number]) [address], [facility] [address] [place] [address] HGB A1C (GLYCO-HGB)on 2023 Glucose [Mass/Vol] 128 mg/dL Normal [facility] Comment on above: Performed By: #### Payton HA CMP, HA1C #### [facility] ([id number]) [address], [facility] [address] [place] [address] HbA1c (Bld) [Mass fraction] 6.1 % High 4.4-5.6 [facility] Comment on above: Result Comment: NOTE ADA Guidelines Result HgbA1c Normal : less than 5.7 % Prediabetes : 5.7 % to 6.4 % Diabetes : > 6.4 % Use with caution in patients with abnormal hemoglobin variants as the half-life of red blood cells and in vivo glycation rates are affected. Performed By: #### C BC, CMP, HA1C #### [facility] ([id number]) [address] [place] [address] Parathyrin.intact [Mass/Vol] on 01-21-2024 PTH INTACT 130 pg/mL High 12-88 [facility] Comment on above: Performed By: #### 2 731-8 #### [facility] ([id number]) [address] [place] [address] COMPLETE BLOOD COUNTon 08-23 Erythrocyte distribution width (RBC) [Ratio] 17.8 % High 11.5-15.0 [facility] Comment on above: Performed By: #### C DILCIA, CMP #### [facility] ([id number]) [address] [place] [address] Hematocrit (Bld) [Volume fraction] 32.9 % Low 35-47 [facility] Comment on above: Performed By: #### C DILCIA, CMP #### [facility] ([id number]) [address] [place] [address] Hemoglobin (Bld) [Mass/Vol] 11.0 g/dL Low 11.7-15.5 [facility] Comment on above: Performed By: #### C DILCIA, CMP #### [facility] ([id number]) [address] [place] [address] MCH (RBC) [Entitic mass] 31.5 pg Normal 27-34 [facility] Comment on above: Performed By: #### C DILCIA, CMP #### [facility] ([id number]) [address] [place] [address] MCHC (RBC) [Mass/Vol] 33.5 g/dL Normal 32-36 [facility] Comment on above: Performed By: #### C BC, CMP #### [facility] ([id number]) [address] [place] [address] MCV (RBC) [Entitic vol] 94 fL Normal 80-100 [facility] Comment on above: Performed By: #### Payton HA, CMP #### [facility] ([id number]) [address] [place] [address] Platelet mean volume (Bld) [Entitic vol] 6.8 fL Low 7-12 [facility] Comment on above: Performed By: #### Payton HA, CMP #### [facility] ([id number]) [address] [place] [address] Platelets (Bld) [#/Vol] 432 10*3/uL Normal 150-450 [facility] Comment on above: Performed By: #### Payton HA, CMP #### [facility] ([id number]) [address] [place] [address] RBC COUNT 3.50 X10E12/L Low 3.80-5.20 [facility] Comment on above: Performed By: #### Payton HA, CMP #### [facility] ([id number]) [address] [place] [address] WBC (Bld) [#/Vol] 7.1 10*3/uL Normal 4.0-11.0 [facility] Comment on above: Performed By: #### Payton HA, CMP #### [facility] ([id number]) [address] [place] [address] COMPREHENSIVE METABOLIC PANE Jj 08-23-2023 Albumin [Mass/Vol] 4.2 g/dL Normal 3.2-5.3 [facility] Comment on above: Performed By: #### [place] HA, CMP #### [facility] ([id number]) [address] [place] [address] ALP [Catalytic activity/Vol] 115 U/L Normal 39-130 [facility] Comment on above: Performed By: #### C DILCIA, CMP #### [facility] ([id number]) [address] [place] [id number] ALT [Catalytic activity/Vol] 12 U/L Normal 0-31 [facility] Comment on above: Performed By: #### C BC, CMP #### [facility] ([id number]) [address] [place] [address] Anion gap [Moles/Vol] 8 mmol/L Normal 5-15 [facility] Comment on above: Performed By: #### C DILCIA, CMP #### [facility] ([id number]) [address], [address] [place] [address] AST [Catalytic activity/Vol] 13 U/L Normal 0-41 [facility] Comment on above: Performed By: #### C DILCIA, CMP #### [facility] ([id number]) [address], [address] [place] [address] Bilirubin [Mass/Vol] 0.3 mg/dL Normal 0.3-1.2 [facility] Comment on above: Performed By: #### C DILCIA, CMP #### [facility] ([id number]) [address] [place] [address] Calcium [Mass/Vol] 12.0 mg/dL High 8.5-10.5 [facility] Comment on above: Performed By: #### C DILCIA, CMP #### [facility] ([id number]) [address] [place] [address] Chloride [Moles/Vol] 102 mmol/L Normal 98-109 [facility] Comment on above: Performed By: #### C DILCIA, CMP #### [facility] ([id number]) [address] [place] [address] CO2 [Moles/Vol] 26 mmol/L Normal 22-32 [facility] Comment on above: Performed By: #### C DILCIA, CMP #### [facility] ([id number]) [address] [place] [address] Creatinine [Mass/Vol] 0.80 mg/dL Normal 0.40-1.00 [facility] Comment on above: Result Comment: METH OD TRACEABLE TO IDMS STANDARD Performed By: #### C DILCIA, CMP #### [facility] ([id number]) [address], [facility] [address] [place] [address] GFR/1.73 sq M.predicted among non-blacks MDRD (S/P/Bld) [Vol rate/Area] 85 mL/min/{1.73_m2} Normal >59 [facility] Comment on above: Result Comment: Reported eGFR is based on the CKD-EPI 2020 equation that does not use a race coefficient. Performed By: #### C DILCIA, CMP #### [facility] ([id number]) [address] [place] [address] Glucose [Mass/Vol] 152 mg/dL High 65-99 [facility] Comment on above: Performed By: #### C DILCIA, CMP #### [facility] ([id number]) [address] [address] [place] [address] Potassium [Moles/Vol] 4.5 mmol/L Normal 3.5-5.0 [facility] Comment on above: Performed By: #### C DILCIA, CMP #### [facility] ([id number]) [address] [place] [address] Protein [Mass/Vol] 7.2 g/dL Normal 6.0-8.0 [facility] Comment on above: Performed By: #### C BC, CMP #### [facility] ([id number]) [address] [address] [place] [address] Sodium [Moles/Vol] 136 mmol/L Normal 134-146 [facility] Comment on above: Performed By: #### C BC, CMP #### [facility] ([id number]) [address], [facility] [address] [place] [address] Urea nitrogen [Mass/Vol] 15 mg/dL Normal 5-23 [facility] Comment on above: Performed By: #### C BC, CMP #### [facility] ([id number]) [address] [address] [place] [address] HGB A1C (GLYCO-HGB)on 2022 Glucose [Mass/Vol] 143 mg/dL Normal [facility] Comment on above: Performed By: #### C DILCIA, CMP #### [facility] ([id number]) [address], [facility] [address] [place] [address] HbA1c (Bld) [Mass fraction] 6.6 % High 4.4-5.6 [facility] Comment on above: Result Comment: NOTE ADA Guidelines Result HgbA1c Normal : less than 5.7 % Prediabetes : 5.7 % to 6.4 % Diabetes : > 6.4 % Use with caution in patients with abnormal hemoglobin variants as the half-life of red blood cells and in vivo glycation rates are affected. Performed By: #### C BC, CMP #### [facility] ([id number]) [address], [facility] [address] [place] [address] MICROALBUMIN - ALBUMIN:CREAT ININE URINE RATIOon 08-23-2023 ALB/CREAT RATIO 76.0 mg/g creat High 0.0-30.0 [facility] Comment on above: Performed By: #### M ALBU #### [facility] ([id number]) [address] [address] [place] [address] Albumin DL <= 20 mg/L (U) [Mass/Vol] 3.0 mg/dL High 0.0-1.9 [facility] Comment on above: Performed By: #### M ALBU #### [facility] ([id number]) [address] [facility] [place] [address] URINE CREAT 39.48 mg/dL Normal [facility] Comment on above: Performed By: #### M ALBU #### [facility] ([id number]) [address] [facility], [address] [place] [address] LITHIUMon 12-22-2022 Poth (Eskalith(R)), Serum 0.8 mmol/L Normal 0.5-1.2 [facility] Comment on above: Result Comment: A co ncentration of 0.5-0.8 mmol/L is advised for long-term use; concentrations of up to 1.2 mmol/L may be necessary during acute treatment. Detection Limit = 0.1 <0.1 indicates None Detected Performed By: #### O BSCRN #### [facility] [address] [address] [address] Rosangela Smyth CREATININEon 12-21-2022 Creatinine [Mass/Vol] 0.93 mg/dL Normal 0.55-1.02 [facility] Comment on above: Performed By: #### L IPID, CMP #### [facility] [address] [address] [address] Rosangela Smyth EGFR-AF KYRGYZ >60 Normal >=[address] [facility] Comment on above: Performed By: #### L IPID, CMP #### [facility] [address] [address] [address] Rosangela Smyth EGFR-NON AF KYRGYZ >60 Normal >=60 [facility] Comment on above: Performed By: #### L IPID, CMP #### [facility] [address] [address] [address] Rosangela Smyth GLUCOSE BLOODon 12-21-2022 Glucose [Mass/Vol] 135 mg/dL Critically high 74-106 [facility] Comment on above: Performed By: #### L IPID, CMP #### [facility] [address] [address] [address] Rosangela Smyth LIPID PROFILEon 12-21-2022 CHOL-HDL RATIO NORM SEE BELOW Normal [facility] Comment on above: Result Comment: 3.3 - 4.4 LOW RISK 4.4 - 7.1 AVERAGE RISK 7.1 - 11.0 MODERATE RISK >11.0 HIGH RISK Performed By: #### L IPID, CMP #### [facility] [address] [address] [address] Rosangela Smyth Cholesterol [Mass/Vol] 194 mg/dL Normal <=200 [facility] Comment on above: Performed By: #### L IPID, CMP #### [facility] [address] [address] [address] Rosangela Smyth Cholesterol in HDL [Mass/Vol] 68 mg/dL Critically high 40-60 [facility] Comment on above: Performed By: #### L IPID, CMP #### [facility] [address] [address] [address] Rosangela Smyth Cholesterol in LDL [Mass/Vol] 106.8 mg/dL Normal [facility] Comment on above: Performed By: #### L IPID, CMP #### [facility] [address] [address] [address] Rosangela Smyth Cholesterol.total/C holesterol in HDL [Mass ratio] 2.9 {ratio} Normal [facility] Comment on above: Performed By: #### L IPID, CMP #### [facility] [address] [address] [address] Rosangela Smyth HDL NORMAL > or = 60 mg/dl - LO W CARDIOVASCULAR RISK <40 mg/dl - HIGH CARDIOVASCULAR RISK Normal [facility] Comment on above: Performed By: #### L IPID, CMP #### [facility] [address] [address] [address] Rosangela Smyth LDL CALC NORMAL SEE BELOW Normal [facility] Comment on above: Result Comment: <100 mg/dl OPTIMAL 100 - 129 mg/dl NEAR OR ABOVE OPTIMAL 130 - 159 mg/dl BORDERLINE HIGH 160 - 189 mg/dl HIGH >190 mg/dl VERY HIGH Performed By: #### L IPID, CMP #### [facility] [address] [place] [address] Dr. Rosangela Smyth Triglyceride [Mass/Vol] 96 mg/dL Normal <=150 [facility] Comment on above: Performed By: #### L IPID, CMP #### [facility] [address] [place] [address] Dr. Rosangela Smyth VLDL CALC 19.2 mg/dL Normal [facility] Comment on above: Performed By: #### L IPID, CMP #### [facility] [address] [place] [address] Dr. Rosangela Smyth TSHon 12-21-2022 TSH 2.649 uIU/mL Normal 0.358-3.740 [facility] Comment on above: Performed By: #### L IPID, CMP #### [facility] [address] [place] [address] Dr. Rosangela Smyth CBC AUTO DIFFon 09-25-2022 BASO # 0.0 103/ul Normal 0.0-0.1 [facility] Comment on above: Performed By: #### C BC #### [facility] [address] [place] [address] Dr. Rosangela Smyth Basophils/100 WBC (Bld) 0.0 % Critically low 0.2-2.0 [facility] Comment on above: Performed By: #### C BC #### [facility] [address] [place] [address] Dr. Rosangela Smyth EO # 0.0 103/ul Normal 0.0-0.7 [facility] Comment on above: Performed By: #### C BC #### [facility] [address] [place] [address] Dr. Rosangela Smyth Eosinophils/100 WBC (Bld) 0.0 % Critically low 0.9-7.0 [facility] Comment on above: Performed By: #### C BC #### [facility] [address] [place] [address] Dr. Rosangela Smyth Erythrocyte distribution width (RBC) [Ratio] 15.9 % Critically high 11.0-15.0 [facility] Comment on above: Performed By: #### C BC #### [facility] [address] [place] [address] Dr. Rosangela Smyth Hematocrit (Bld) [Volume fraction] 25.7 % Critically low 36.0-48.0 [facility] Comment on above: Performed By: #### C BC #### [facility] [address] [place] [address] Dr. Rosangela Smyth Hemoglobin (Bld) [Mass/Vol] 8.3 g/dL Critically low 12.0-16.0 [facility] Comment on above: Performed By: #### C BC #### [facility] [address] [place] [address] Dr. Rosangela Smyth IG # 0.03 10e3/ul Normal 0.00-0.03 [facility] Comment on above: Performed By: #### C BC #### [facility] [address] [place] [address] Dr. Rosangela Smyth IG % 0.6 % Critically high 0.0-0.5 [facility] Comment on above: Performed By: #### C BC #### [facility] [address] [place] [address] Dr. Rosangela Smyth LYMPH # 0.7 103/ul Critically low 1.2-3.8 [facility] Comment on above: Performed By: #### C BC #### [facility] [address] [place] [address] Dr. Rosangela Smyth Lymphocytes/100 WBC (Bld) 13.8 % Critically low 20.5-60.0 [facility] Comment on above: Performed By: #### C BC #### [facility] [address] [place] [address] Dr. Rosangela Smyth MANUAL DIFF REQ NO Normal [facility] Comment on above: Performed By: #### C BC #### [facility] [address] [place] [address] Dr. Rosangela Smyth MCH (RBC) [Entitic mass] 31.1 pg Normal 26.7-34.0 [facility] Comment on above: Performed By: #### C BC #### [facility] [address] [place] [address] Dr. Rosangela Smyth MCHC (RBC) [Mass/Vol] 32.3 g/dL Normal 29.9-35.2 [facility] Comment on above: Performed By: #### C BC #### [facility] [address] [place] [address] Dr. Rosangela Smyth MCV (RBC) [Entitic vol] 96.3 fL Normal 81.0-99.0 [facility] Comment on above: Performed By: #### C BC #### [facility] [address] [place] [address] Dr. Rosangela Smyth MONO # 0.3 103/ul Normal 0.3-0.8 [facility] Comment on above: Performed By: #### C BC #### [facility] [address] [place] [address] Dr. Rosangela Smyth Monocytes/100 WBC (Bld) 4.9 % Normal 1.7-12.0 [facility] Comment on above: Performed By: #### C BC #### [facility] [address] [place] [address] Dr. Rosangela Smyth NEUT # 4.3 103/ul Normal 1.4-6.5 [facility] Comment on above: Performed By: #### C BC #### [facility] [address] [place] [address] Dr. Rosangela Smyth Neutrophils/100 WBC (Bld) 80.7 % Critically high 43.0-75.0 [facility] Comment on above: Performed By: #### C BC #### [facility] [address] [place] [address] Dr. Rosangela Smyth Platelet mean volume (Bld) [Entitic vol] 9.1 fL Critically low 9.5-13.5 [facility] Comment on above: Performed By: #### C BC #### [facility] [address] [place] [address] Dr. Rosangela Smyth PLT 234 103/ul Normal 150-450 [facility] Comment on above: Performed By: #### C BC #### [facility] [address] [address] [address] Rosangela Smyth RBC 2.67 106/ul Critically low 4.20-5.40 [facility] Comment on above: Performed By: #### C BC #### [facility] [address] [address] [address] Rosangela Smyth WBC 5.4 103/ul Normal 4.0-11.0 [facility] Comment on above: Performed By: #### C BC #### [facility] [address] [place] [address] Dr. Rosangela Smyth PROF CHEM 8 (BAS METB)on Anion gap [Moles/Vol] 11.7 mmol/L Normal [facility] Comment on above: Performed By: #### L IPID, CMP #### [facility] [address] [place] [address] Dr. Rosangela Smyth Calcium [Mass/Vol] 10.5 mg/dL Critically high 8.5-10.1 [facility] Comment on above: Performed By: #### L IPID, CMP #### [facility] [address] [place] [address] Dr. Rosangela Smyth Chloride [Moles/Vol] 114 mmol/L Critically high 98-107 [facility] Comment on above: Performed By: #### L IPID, CMP #### [facility] [address] [place] [address] Dr. Rosangela Smyth CO2 [Moles/Vol] 21.9 mmol/L Normal 21.0-32.0 [facility] Comment on above: Performed By: #### L IPID, CMP #### [facility] [address] [place] [address] Dr. Rosangela Smyth Creatinine [Mass/Vol] 0.91 mg/dL Normal 0.55-1.02 [facility] Comment on above: Performed By: #### L IPID, CMP #### [facility] [address] [place] [address] Dr. Rosangela Smyth EGFR-AF KYRGYZ >60 Normal >=[address] [facility] Comment on above: Performed By: #### L IPID, CMP #### [facility] [address] [place] [address] Dr. Rosangela Smyth EGFR-NON AF KYRGYZ >60 Normal >=60 [facility] Comment on above: Performed By: #### L IPID, CMP #### [facility] [address] [place] [address] Dr. Rosangela Smyth Glucose [Mass/Vol] 108 mg/dL Critically high 74-106 [facility] Comment on above: Performed By: #### L IPID, CMP #### [facility] [address] [place] [address] Dr. Rosangela Smyth Potassium [Moles/Vol] 3.6 mmol/L Normal 3.5-5.1 [facility] Comment on above: Performed By: #### L IPID, CMP #### [facility] [address] [place] [address] Dr. Rosangela Smyth Sodium [Moles/Vol] 144 mmol/L Normal 136-145 [facility] Comment on above: Performed By: #### L IPID, CMP #### [facility] [address] [place] [address] Dr. Rosangela Smyth Urea nitrogen [Mass/Vol] 20.0 mg/dL Critically high 7.0-18.0 [facility] Comment on above: Performed By: #### L IPID, CMP #### [facility] [address] [place] [address] Dr. Rosangela Smyth Urea nitrogen/Creatinine [Mass ratio] 22.0 mg/mg Normal [facility] Comment on above: Performed By: #### L IPID, CMP #### [facility] [address] [place] [address] Dr. Rosangela Smyth CBC AUTO DIFFon 09-24-2022 BASO # 0.0 103/ul Normal 0.0-0.1 [facility] Comment on above: Performed By: #### C BC #### [facility] [address] [place] [address] Dr. Rosangela Smyth Basophils/100 WBC (Bld) 0.0 % Critically low 0.2-2.0 [facility] Comment on above: Performed By: #### C BC #### [facility] [address] [place] [address] Dr. Rosangela Smyth EO # 0.0 103/ul Normal 0.0-0.7 [facility] Comment on above: Performed By: #### C BC #### [facility] [address] [place] [address] Dr. Rosangela Smyth Eosinophils/100 WBC (Bld) 0.0 % Critically low 0.9-7.0 [facility] Comment on above: Performed By: #### C BC #### [facility] [address] [place] [address] Dr. Rosangela Smyth Erythrocyte distribution width (RBC) [Ratio] 15.7 % Critically high 11.0-15.0 [facility] Comment on above: Performed By: #### C BC #### [facility] [address] [place] [address] Dr. Rosangela Smyth Hematocrit (Bld) [Volume fraction] 30.3 % Critically low 36.0-48.0 [facility] Comment on above: Performed By: #### C BC #### [facility] [address] [place] [address] Dr. Rosangela Smyth Hemoglobin (Bld) [Mass/Vol] 9.5 g/dL Critically low 12.0-16.0 [facility] Comment on above: Performed By: #### C BC #### [facility] [address] [place] [address] Dr. Rosangela Smyth IG # 0.02 10e3/ul Normal 0.00-0.03 [facility] Comment on above: Performed By: #### C BC #### [facility] [address] [place] [address] Dr. Rosangela Smyth IG % 0.6 % Critically high 0.0-0.5 [facility] Comment on above: Performed By: #### C BC #### [facility] [address] [place] [address] Dr. Rosangela Smyth LYMPH # 0.6 103/ul Critically low 1.2-3.8 [facility] Comment on above: Performed By: #### C BC #### [facility] [address] [place] [address] Dr. Rosangela Smyth Lymphocytes/100 WBC (Bld) 17.7 % Critically low 20.5-60.0 [facility] Comment on above: Performed By: #### C BC #### [facility] [address] [place] [address] Dr. Rosangela Smyth MANUAL DIFF REQ NO Normal [facility] Comment on above: Performed By: #### C BC #### [facility] [address] [place] [address] Dr. Rosangela Smyth MCH (RBC) [Entitic mass] 30.6 pg Normal 26.7-34.0 [facility] Comment on above: Performed By: #### C BC #### [facility] [address] [place] [address] Dr. Rosangela Smyth MCHC (RBC) [Mass/Vol] 31.4 g/dL Normal 29.9-35.2 [facility] Comment on above: Performed By: #### C BC #### [facility] [address] [place] [address] Dr. Rosangela Smyth MCV (RBC) [Entitic vol] 97.7 fL Normal 81.0-99.0 [facility] Comment on above: Performed By: #### C BC #### [facility] [address] [place] [address] Dr. Rosangela Smyth MONO # 0.1 103/ul Critically low 0.3-0.8 [facility] Comment on above: Performed By: #### C BC #### [facility] [address] [place] [address] Dr. Rosangela Smyth Monocytes/100 WBC (Bld) 2.5 % Normal 1.7-12.0 [facility] Comment on above: Performed By: #### C BC #### [facility] [address] [place] [address] Dr. Rosangela Smyth NEUT # 2.5 103/ul Normal 1.4-6.5 [facility] Comment on above: Performed By: #### C BC #### [facility] [address] [place] [address] Dr. Rosangela Smyth Neutrophils/100 WBC (Bld) 79.2 % Critically high 43.0-75.0 [facility] Comment on above: Performed By: #### C BC #### [facility] [address] [place] [address] Dr. Rosangela Smyth Platelet mean volume (Bld) [Entitic vol] 8.9 fL Critically low 9.5-13.5 [facility] Comment on above: Performed By: #### C BC #### [facility] [address] [place] [address] Dr. Rosangela Smyth PLT 218 103/ul Normal 150-450 [facility] Comment on above: Performed By: #### C BC #### [facility] [address] [place] [address] Dr. Rosangela Smyth RBC 3.10 106/ul Critically low 4.20-5.40 [facility] Comment on above: Performed By: #### C BC #### [facility] [address] [place] [address] Dr. Rosangela Smyth WBC 3.2 103/ul Critically low 4.0-11.0 [facility] Comment on above: Performed By: #### C BC #### [facility] [address] [place] [address] Dr. Rosangela Smyth POINT OF CARE GLUCOSEon 09-06 Glucose [Mass/Vol] 291 mg/dL Critically high 74-106 [facility] Comment on above: Performed By: #### P OCGLUC #### [facility] [address] [place] [address] Dr. Rosangela Smyth PROF CHEM 8 (BAS METB)on Anion gap [Moles/Vol] 14.6 mmol/L Normal [facility] Comment on above: Performed By: #### L ACT #### [facility] [address] [place], [place] [id number] Dr. Rosangela Smyth Calcium [Mass/Vol] 10.7 mg/dL Critically high 8.5-10.1 [facility] Comment on above: Performed By: #### L ACT #### [facility] [address] [place] [address] Dr. Rosangela Smyth Chloride [Moles/Vol] 113 mmol/L Critically high 98-107 [facility] Comment on above: Performed By: #### L ACT #### [facility] [address] [address] [address] Rosangela Smyth CO2 [Moles/Vol] 20.7 mmol/L Critically low 21.0-32.0 [facility] Comment on above: Performed By: #### L ACT #### [facility] [address] [place] [address] Dr. Rosangela Smyth Creatinine [Mass/Vol] 0.86 mg/dL Normal 0.55-1.02 [facility] Comment on above: Performed By: #### L ACT #### [facility] [address] [place] [address] Dr. Rosangela Smyth EGFR-AF KYRGYZ >60 Normal >=[address] [facility] Comment on above: Performed By: #### L ACT #### [facility] [address] [place] [address] Dr. Rosangela Smyth EGFR-NON AF KYRGYZ >60 Normal >=60 [facility] Comment on above: Performed By: #### L ACT #### [facility] [address] [address] [address] Rosangela Smyth Glucose [Mass/Vol] 279 mg/dL Critically high 74-106 [facility] Comment on above: Performed By: #### L ACT #### [facility] [address] [address] [address] Rosangela Smyth Potassium [Moles/Vol] 4.3 mmol/L Normal 3.5-5.1 [facility] Comment on above: Performed By: #### L ACT #### [facility] [address] [place] [address] Dr. Rosangela Smyth Sodium [Moles/Vol] 144 mmol/L Normal 136-145 [facility] Comment on above: Performed By: #### L ACT #### [facility] [address] [address] [address] Rosangela Smyth Urea nitrogen [Mass/Vol] 14.0 mg/dL Normal 7.0-18.0 [facility] Comment on above: Performed By: #### L ACT #### [facility] [address] [place] [address] Dr. Rosangela Smyth Urea nitrogen/Creatinine [Mass ratio] 16.3 mg/mg Normal [facility] Comment on above: Performed By: #### L ACT #### [facility] [address] [place] [address] Dr. Rosangela Smyth CARDIAC CRYSTAL ADMITon 023 CK [Catalytic activity/Vol] 22 U/L Critically low 26-192 [facility] Comment on above: Performed By: #### L IPID, CMP #### [facility] [address] [place] [address] Dr. Rosangela Smyth CK.MB [Mass/Vol] ng/mL Normal <=3.[address] [facility] Comment on above: Performed By: #### L IPID, CMP #### [facility] [address] [place] [address] Dr. Rosangela Smyth HSTROP 5.7 pg/mL Normal 4.0-51.3 [facility] Comment on above: Result Comment: CUT- OFF POINTS HAVE BEEN ESTABLISHED BASED ON THE FOURTH UNIVERSAL DEFINITIONS OF MYOCARDIAL INFARCTION. THE UPPER REFERENCE LIMIT (URL) OF TROPONIN, DEFINED THE 99TH PERCENTILE OF cTnI DISTRIBUTION IN A REFERENCE POPULATION, HAS BEEN CONFIRMED THE DECISION THRESHOLD FOR MT DIAGNOSIS. Performed By: #### L IPID, CMP #### [facility] [address] [place] [address] Dr. Rosangela Smyth JOVAN 40 ng/mL Normal 9-82 [facility] Comment on above: Performed By: #### L IPID, CMP #### [facility] [address] [place] [address] Dr. Rosangela Smyth CBC AUTO DIFFon 09-23-2022 BASO # 0.0 103/ul Normal 0.0-0.1 [facility] Comment on above: Performed By: #### L ACT #### [facility] [address] [place] [address] Dr. Rosangela Smyth Basophils/100 WBC (Bld) 0.0 % Critically low 0.2-2.0 [facility] Comment on above: Performed By: #### L ACT #### [facility] [address] [place] [address] Dr. Rosangela Smyth EO # 0.1 103/ul Normal 0.0-0.7 [facility] Comment on above: Performed By: #### L ACT #### [facility] [address] [place] [address] Dr. Rosangela Smyth Eosinophils/100 WBC (Bld) 1.8 % Normal 0.9-7.0 [facility] Comment on above: Performed By: #### L ACT #### [facility] [address] [place] [address] Dr. Rosangela Smyth Erythrocyte distribution width (RBC) [Ratio] 15.6 % Critically high 11.0-15.0 [facility] Comment on above: Performed By: #### L ACT #### [facility] [address] [place] [address] Dr. Rosangela Smyth Hematocrit (Bld) [Volume fraction] 26.0 % Critically low 36.0-48.0 [facility] Comment on above: Performed By: #### L ACT #### [facility] [address] [place] [address] Dr. Rosangela Smyth Hemoglobin (Bld) [Mass/Vol] 8.5 g/dL Critically low 12.0-16.0 [facility] Comment on above: Performed By: #### L ACT #### [facility] [address] [place] [address] Dr. Rosangela Smyth IG # 0.02 10e3/ul Normal 0.00-0.03 [facility] Comment on above: Performed By: #### L ACT #### [facility] [address] [place] [address] Dr. Rosangela Smyth IG % 0.5 % Normal 0.0-0.5 [facility] Comment on above: Performed By: #### L ACT #### [facility] [address] [place] [address] Dr. Rosangela Smyth LYMPH # 0.9 103/ul Critically low 1.2-3.8 [facility] Comment on above: Performed By: #### L ACT #### [facility] [address] [place] [address] Dr. Rosangela Smyth Lymphocytes/100 WBC (Bld) 24.0 % Normal 20.5-60.0 [facility] Comment on above: Performed By: #### L ACT #### [facility] [address] [place] [address] Dr. Rosangela Smyth MANUAL DIFF REQ NO Normal [facility] Comment on above: Performed By: #### L ACT #### [facility] [address] [place] [address] Dr. Rosangela Smyth MCH (RBC) [Entitic mass] 31.3 pg Normal 26.7-34.0 [facility] Comment on above: Performed By: #### L ACT #### [facility] [address] [place] [address] Dr. Rosangela Smyth MCHC (RBC) [Mass/Vol] 32.7 g/dL Normal 29.9-35.2 [facility] Comment on above: Performed By: #### L ACT #### [facility] [address] [place] [address] Dr. Rosangela Smyth MCV (RBC) [Entitic vol] 95.6 fL Normal 81.0-99.0 [facility] Comment on above: Performed By: #### L ACT #### [facility] [address] [place] [address] Dr. Rosangela Smyth MONO # 0.2 103/ul Critically low 0.3-0.8 [facility] Comment on above: Performed By: #### L ACT #### [facility] [address] [place] [address] Dr. Rosangela Smyth Monocytes/100 WBC (Bld) 4.0 % Normal 1.7-12.0 [facility] Comment on above: Performed By: #### L ACT #### [facility] [address] [address] [address] Rosangela Smyth NEUT # 2.6 103/ul Normal 1.4-6.5 [facility] Comment on above: Performed By: #### L ACT #### [facility] [address] [address] [address] Rosangela Smyth Neutrophils/100 WBC (Bld) 69.7 % Normal 43.0-75.0 [facility] Comment on above: Performed By: #### L ACT #### [facility] [address] [address] [address] Rosangela Smyth Platelet mean volume (Bld) [Entitic vol] 9.1 fL Critically low 9.5-13.5 [facility] Comment on above: Performed By: #### L ACT #### [facility] [address] [place] [address] Dr. Rosangela Smyth PLT 244 103/ul Normal 150-450 [facility] Comment on above: Performed By: #### L ACT #### [facility] [address] [place] [address] Dr. Rosangela Smyth RBC 2.72 106/ul Critically low 4.20-5.40 [facility] Comment on above: Performed By: #### L ACT #### [facility] [address] [place] [address] Dr. Rosangela Smyth WBC 3.8 103/ul Critically low 4.0-11.0 [facility] Comment on above: Performed By: #### L ACT #### [facility] [address] [place] [address] Dr. Rosangela Smyth BASO # 0.0 103/ul Normal 0.0-0.1 [facility] Comment on above: Performed By: #### L IPID, CMP #### [facility] [address] [address] [address] Rosangela Smyth Basophils/100 WBC (Bld) 0.3 % Normal 0.2-2.0 [facility] Comment on above: Performed By: #### L IPID, CMP #### [facility] [address] [place] [address] Dr. Rosangela Smyth EO # 0.0 103/ul Normal 0.0-0.7 [facility] Comment on above: Performed By: #### L IPID, CMP #### [facility] [address] [place] [address] Dr. Rosangela Smyth Eosinophils/100 WBC (Bld) 1.1 % Normal 0.9-7.0 [facility] Comment on above: Performed By: #### L IPID, CMP #### [facility] [address] [place] [address] Dr. Rosangela Smyth Erythrocyte distribution width (RBC) [Ratio] 15.5 % Critically high 11.0-15.0 [facility] Comment on above: Performed By: #### L IPID, CMP #### [facility] [address] [place] [address] Dr. Rosangela Smyth Hematocrit (Bld) [Volume fraction] 31.9 % Critically low 36.0-48.0 [facility] Comment on above: Performed By: #### L IPID, CMP #### [facility] [address] [place] [address] Dr. Rosangela Smyth Hemoglobin (Bld) [Mass/Vol] 10.4 g/dL Critically low 12.0-16.0 [facility] Comment on above: Performed By: #### L IPID, CMP #### [facility] [address] [place] [address] Dr. Rosangela Smyth IG # 0.03 10e3/ul Normal 0.00-0.03 [facility] Comment on above: Performed By: #### L IPID, CMP #### [facility] [address] [place] [address] Dr. Rosangela Smyth IG % 0.8 % Critically high 0.0-0.5 [facility] Comment on above: Performed By: #### L IPID, CMP #### [facility] [address] [place] [address] Dr. Rosangela Smyth LYMPH # 1.0 103/ul Critically low 1.2-3.8 [facility] Comment on above: Performed By: #### L IPID, CMP #### [facility] [address] [place] [address] Dr. Rosangela Smyth Lymphocytes/100 WBC (Bld) 26.4 % Normal 20.5-60.0 [facility] Comment on above: Performed By: #### L IPID, CMP #### [facility] [address] [place] [address] Dr. Rosangela Smyth MANUAL DIFF REQ NO Normal [facility] Comment on above: Performed By: #### L IPID, CMP #### [facility] [address] [place] [address] Dr. Rosangela Smyth MCH (RBC) [Entitic mass] 30.7 pg Normal 26.7-34.0 [facility] Comment on above: Performed By: #### L IPID, CMP #### [facility] [address] [place] [address] Dr. Rosangela Smyth MCHC (RBC) [Mass/Vol] 32.6 g/dL Normal 29.9-35.2 [facility] Comment on above: Performed By: #### L IPID, CMP #### [facility] [address] [place] [address] Dr. Rosangela Smyth MCV (RBC) [Entitic vol] 94.1 fL Normal 81.0-99.0 [facility] Comment on above: Performed By: #### L IPID, CMP #### [facility] [address] [place] [address] Dr. Rosangela Smyth MONO # 0.1 103/ul Critically low 0.3-0.8 [facility] Comment on above: Performed By: #### L IPID, CMP #### [facility] [address] [place] [address] Dr. Rosangela Smyth Monocytes/100 WBC (Bld) 3.2 % Normal 1.7-12.0 [facility] Comment on above: Performed By: #### L IPID, CMP #### [facility] [address] [address] [address] Rosangela Smyth NEUT # 2.5 103/ul Normal 1.4-6.5 [facility] Comment on above: Performed By: #### L IPID, CMP #### [facility] [address] [place] [address] Dr. Rosangela Smyth Neutrophils/100 WBC (Bld) 68.2 % Normal 43.0-75.0 [facility] Comment on above: Performed By: #### L IPID, CMP #### [facility] [address] [place] [address] Dr. Rosangela Smyht Platelet mean volume (Bld) [Entitic vol] 8.8 fL Critically low 9.5-13.5 [facility] Comment on above: Performed By: #### L IPID, CMP #### [facility] [address] [place] [address] Dr. Rosangela Smyth PLT 242 103/ul Normal 150-450 [facility] Comment on above: Performed By: #### L IPID, CMP #### [facility] [address] [place] [address] Dr. Rosangela Smyth RBC 3.39 106/ul Critically low 4.20-5.40 [facility] Comment on above: Performed By: #### L IPID, CMP #### [facility] [address] [place] [address] Dr. Rosangela Smyth WBC 3.7 103/ul Critically low 4.0-11.0 [facility] Comment on above: Performed By: #### L IPID, CMP #### [facility] [address] [place] [address] Dr. Rosangela Smyth CTA CHEST WO W CONon 09-23- 023 CTA CHEST WO W CON EXAMINATION: [...] KWAN MADRID Date: 2022-09-23 01:51 Normal [facility] CULTURE BLOODon 09-23-2022 Microscopic examination of blood, culture Culture Observations: NO GROWTH AT 5 DAYS. Normal [facility] Comment on above: Performed By: #### L IPID, CMP #### [facility] [address] [address] [address] Rosangela Smyth Microscopic examination of blood, culture Culture Observations: NO GROWTH AT 5 DAYS. Normal [facility] Comment on above: Performed By: #### L IPID, CMP #### [facility] [address] [address] [address] Rosangela Smyth Covid-19 PCR (CVDTB)on 09-06 SARS-CoV-2 (COVID-19) RNA RICH+probe Ql (Unsp spec) Detected Abnormal NOT DETECTED [facility] Comment on above: Result Comment: This test is not yet approved or cleared by the [place] FDA. When there are no FDA-approved or cleared tests available, and other criteria are met, FDA can make tests available under an emergency access mechanism called an Emergency Use Authorization (EUA). The EUA for this test is supported by the [employer] and Human Service's declaration that [...] used). Performed By: #### O BSCRN #### [facility] [address] [place] [address] Dr. Rosangela Smyth D-DIMERon 09-23-2022 D-DIMER 0.78 mg/L FEU Critically high <=0.59 [facility] Comment on above: Performed By: #### O BSCRN #### [facility] [address] [place] [address] Dr. Rosangela Smyth D-DIMER COMMENTS SEE BELOW Normal [facility] Comment on above: Result Comment: [...] hospitalization. Performed By: #### O BSCRN #### [facility] [address] [place] [address] Dr. Rosangela Smyth ER URINE PROFILEon 3 Bilirubin Ql (U) Negative Normal NEGATIVE [facility] Comment on above: Performed By: #### L IPID, CMP #### [facility] [address] [place] [address] Dr. Rosangela Smyth Clarity (U) CLEAR Normal CLEAR [facility] Comment on above: Performed By: #### L IPID, CMP #### [facility] [address] [place] [address] Dr. Rosangela Smyth Color (U) LT. YELLOW Normal YELLOW [facility] Comment on above: Performed By: #### L IPID, CMP #### [facility] [address] [place] [address] Dr. Rosangela Smyth ERUAHD A micrscopic examination will be performed if indicated. Normal [facility] Comment on above: Performed By: #### L IPID, CMP #### [facility] [address] [address] [address] Rosangela Smyth Glucose Ql (U) 250 mg/dl Abnormal NEGATIVE [facility] Comment on above: Performed By: #### L IPID, CMP #### [facility] [address] [address] [address] Rosangela Smyth Hemoglobin Ql (U) Negative Normal NEGATIVE [facility] Comment on above: Performed By: #### L IPID, CMP #### [facility] [address] [address] [address] Rosangela Smyth Ketones Ql (U) Negative Normal NEGATIVE [facility] Comment on above: Performed By: #### L IPID, CMP #### [facility] [address] [place] [address] Dr. Rosangela Smyth LEUKOCYTES Negative Normal NEGATIVE [facility] Comment on above: Performed By: #### L IPID, CMP #### [facility] [address] [place] [address] Dr. Rosangela Smyth Nitrite Ql (U) Negative Normal NEGATIVE [facility] Comment on above: Performed By: #### L IPID, CMP #### [facility] [address] [address] [address] Rosangela Smyth pH (U) 6.0 [pH] Normal 5-9 [facility] Comment on above: Performed By: #### L IPID, CMP #### [facility] [address] [address] [address] Rosangela Smyth SPEC GRAVITY 1.015 Normal 1.005-<=1.02 5 [facility] Comment on above: Performed By: #### L IPID, CMP #### [facility] [address] [place] [address] Dr. Rosangela Smyth UA PROTEIN TRACE Normal NEGATIVE/ TRACE [facility] Comment on above: Performed By: #### L IPID, CMP #### [facility] [address] [place] [address] Dr. Rosangela Smyth UR MICRO IND NOT INDICATED Normal [facility] Comment on above: Performed By: #### L IPID, CMP #### [facility] [address] [place] [address] Dr. Rosangela Smyth Urobilinogen Qn (U) 0.2 {Estevan'U}/dL Normal 0.2 - 1. 0 [facility] Comment on above: Performed By: #### L IPID, CMP #### [facility] [address] [place] [address] Dr. Rosangela Smyth INFLUENZA A AND B AGon 09-23 INFLUENZA A AG Negative Normal NEGATIVE SEE COMMENT [facility] Comment on above: Performed By: #### L IPID, CMP #### [facility] [address] [place] [address] Dr. Rosangela Smyth INFLUENZA B AG Negative Normal NEGATIVE SEE COMMENT [facility] Comment on above: Performed By: #### L IPID, CMP #### [facility] [address] [place] [address] Dr. Rosangela Smyth LACTATE/LACTIC ACIDon 2022 Lactate [Moles/Vol] 1.4 mmol/L Normal 0.4-1.9 [facility] Comment on above: Performed By: #### O BSCRN #### [facility] [address] [place] [address] Dr. Rosangela Smyth Lactate [Moles/Vol] 0.9 mmol/L Normal 0.4-1.9 [facility] Comment on above: Performed By: #### C BC #### [facility] [address] [place] [address] Dr. Rosangela Smyth Lactate [Moles/Vol] 1.4 mmol/L Normal 0.4-1.9 [facility] Comment on above: Performed By: #### L ACT #### [facility] [address] [place] [address] Dr. Rosangela Smyth POINT OF CARE GLUCOSEon 09-06 Glucose [Mass/Vol] 421 mg/dL Critically high 74-106 [facility] Comment on above: Performed By: #### O BSCRN #### [facility] [address] [place] [address] Dr. Rosangela Smyth PROF 14(COMP METB)on 023 Albumin [Mass/Vol] 2.7 g/dL Critically low 3.4-5.0 [facility] [place] Comment on above: Performed By: #### O BSCRN #### [facility] [address] [place] [address] Dr. Rosangela Smyth Albumin/Globulin [Mass ratio] 0.7 {ratio} Normal [facility] Comment on above: Performed By: #### O BSCRN #### [facility] [address] [place] [address] Dr. Rosangela Smyth ALP [Catalytic activity/Vol] 76 U/L Normal 46-116 [facility] Comment on above: Performed By: #### O BSCRN #### [facility] [address] [place] [address] Dr. Rosangela Smyth ALT [Catalytic activity/Vol] 19 U/L Normal 14-59 [facility] Comment on above: Performed By: #### O BSCRN #### [facility] [address] [place] [address] Dr. Rosangela Smyth Anion gap [Moles/Vol] 11.9 mmol/L Normal [facility] Comment on above: Performed By: #### O BSCRN #### [facility] [address] [place] [address] Dr. Rosangela Smyth AST [Catalytic activity/Vol] 20 U/L Normal 15-37 [facility] Comment on above: Performed By: #### O BSCRN #### [facility] [address] [place] [address] Dr. Rosangela Smyth Bilirubin [Mass/Vol] 0.3 mg/dL Normal 0.2-1.0 [facility] Comment on above: Performed By: #### O BSCRN #### [facility] [address] [place] [address] Dr. Rosangela Smyth Calcium [Mass/Vol] 10.2 mg/dL Critically high 8.5-10.1 [facility] Comment on above: Performed By: #### O BSCRN #### [facility] [address] [address] [address] Rosangela Smyth Chloride [Moles/Vol] 103 mmol/L Normal 98-107 [facility] Comment on above: Performed By: #### O BSCRN #### [facility] [address] [address] [address] Rosangela Smyth CO2 [Moles/Vol] 23.7 mmol/L Normal 21.0-32.[address] [facility] Comment on above: Performed By: #### O BSCRN #### [facility] [address] [address] [address] Rosangela Smyth Creatinine [Mass/Vol] 0.90 mg/dL Normal 0.55-1.02 [facility] Comment on above: Performed By: #### O BSCRN #### [facility] [address] [place] [address] Dr. Rosangela Smyth EGFR-AF KYRGYZ >60 Normal >=[address] [facility] Comment on above: Performed By: #### O BSCRN #### [facility] [address] [address] [address] Rosangela Smyth EGFR-NON AF KYRGYZ >60 Normal >=60 [facility] Comment on above: Performed By: #### O BSCRN #### [facility] [address] [address] [address] Rosangela Smyth Globulin (S) [Mass/Vol] 3.9 g/dL Normal [facility] Comment on above: Performed By: #### O BSCRN #### [facility] [address] [address] [address] Rosangela Smyth Glucose [Mass/Vol] 237 mg/dL Critically high 74-106 [facility] Comment on above: Performed By: #### O BSCRN #### [facility] [address] [address] [address] Rosangela Smyth Potassium [Moles/Vol] 3.6 mmol/L Normal 3.5-5.1 [facility] Comment on above: Performed By: #### O BSCRN #### [facility] [address] [address] [address] Rosangela Smyth Protein [Mass/Vol] 6.6 g/dL Normal 6.4-8.2 [facility] Comment on above: Performed By: #### O BSCRN #### [facility] [address] [address] [address] Rosangela Smyth Sodium [Moles/Vol] 135 mmol/L Critically low 136-[address] [facility] Comment on above: Performed By: #### O BSCRN #### [facility] [address] [address] [address] Rosangela Smyth Urea nitrogen [Mass/Vol] 11.0 mg/dL Normal 7.0-18.0 [facility] Comment on above: Performed By: #### O BSCRN #### [facility] [address] [place] [address] Dr. Rosangela Smyth Urea nitrogen/Creatinine [Mass ratio] 12.2 mg/mg Normal [facility] Comment on above: Performed By: #### O BSCRN #### [facility] [address] [address] [address] Rosangela Smyth PROF CHEM 8 (BAS METB)on Anion gap [Moles/Vol] 10.7 mmol/L Normal [facility] Comment on above: Performed By: #### L IPID, CMP #### [facility] [address] [address] [address] Rosangela Smyth Calcium [Mass/Vol] 10.3 mg/dL Critically high 8.5-10.1 [facility] Comment on above: Performed By: #### L IPID, CMP #### [facility] [address] [address] [address] Rosangela Smyth Chloride [Moles/Vol] 97 mmol/L Critically low 98-107 [facility] Comment on above: Performed By: #### L IPID, CMP #### [facility] [address] [place] [address] Dr. Rosangela Smyth CO2 [Moles/Vol] 26.1 mmol/L Normal 21.0-32.[address] [facility] Comment on above: Performed By: #### L IPID, CMP #### [facility] [address] [address] [address] Rosangela Smyth Creatinine [Mass/Vol] 1.05 mg/dL Critically high 0.55-1.02 [facility] Comment on above: Performed By: #### L IPID, CMP #### [facility] [address] [address] [address] Rosangela Smyth EGFR-AF KYRGYZ >60 Normal >=[address] [facility] Comment on above: Performed By: #### L IPID, CMP #### [facility] [address] [address] [address] Rosangela Smyth EGFR-NON AF KYRGYZ 54 mL/min/1.73m2 Critically low >=60 [facility] Comment on above: Performed By: #### L IPID, CMP #### [facility] [address] [address] [address] Rosangela Smyth Glucose [Mass/Vol] 255 mg/dL Critically high 74-106 [facility] Comment on above: Performed By: #### L IPID, CMP #### [facility] [address] [address] [address] Rosangela Smyth Potassium [Moles/Vol] 3.8 mmol/L Normal 3.5-5.1 [facility] Comment on above: Performed By: #### L IPID, CMP #### [facility] [address] [address] [address] Rosangela Smyth Sodium [Moles/Vol] 130 mmol/L Critically low 136-145 [facility] [place] Comment on above: Performed By: #### L IPID, CMP #### [facility] [address] [address] [address] Rosangela Smyth Urea nitrogen [Mass/Vol] 18.0 mg/dL Normal 7.0-18.0 [facility] Comment on above: Performed By: #### L IPID, CMP #### [facility] [address] [address] [address] Rosangela Smyth Urea nitrogen/Creatinine [Mass ratio] 17.1 mg/mg Normal [facility] Comment on above: Performed By: #### L IPID, CMP #### [facility] [address] [address] [address] Rosangela Smyth XR CHEST 1 Von [...] JUSTINA CURRAN Date: 2022-09-23 16:33 Normal [facility] XR CHEST 1 V XR CHEST [...] RAUL MARVIN Date: 2022-09-23 00:05 Normal [facility] CARDIAC CRYSTAL ADMITon 023 CK [Catalytic activity/Vol] 44 U/L Normal 26-192 [facility] Comment on above: Performed By: #### C NERIS CMADM #### [facility] [address] [address] [address] Rosangela Smyth CK.MB [Mass/Vol] ng/mL Normal <=3.60 [facility] Comment on above: Performed By: #### C NERIS, CMADM #### [facility] [address], [place] [address] Dr. Rosangela Smyth HSTROP 6.3 pg/mL Normal 4.0-51.3 [facility] Comment on above: Result Comment: CUT- OFF POINTS HAVE BEEN ESTABLISHED BASED ON THE FOURTH UNIVERSAL DEFINITIONS OF MYOCARDIAL INFARCTION. THE UPPER REFERENCE LIMIT (URL) OF TROPONIN, DEFINED THE 99TH PERCENTILE OF cTnI DISTRIBUTION IN A REFERENCE POPULATION, HAS BEEN CONFIRMED THE DECISION THRESHOLD FOR MT DIAGNOSIS. Performed By: #### C MP, CMADM #### [facility] [address] [address] [address] Rosangela Smyth JOVAN 39 ng/mL Normal 9-82 [facility] Comment on above: Performed By: #### C MP, CMADM #### [facility] [address] [address] [address] Rosangela Smyth CBC AUTO DIFFon 09-12-2022 BASO # 0.0 103/ul Normal 0.0-0.1 [facility] Comment on above: Performed By: #### L ACT #### [facility] [address] [place] [address] Dr. Rosangela Smyth Basophils/100 WBC (Bld) 0.3 % Normal 0.2-2.0 [facility] Comment on above: Performed By: #### L ACT #### [facility] [address] [address] [address] Rosangela Smyth EO # 0.1 103/ul Normal 0.0-0.7 [facility] Comment on above: Performed By: #### L ACT #### [facility] [address] [place] [address] Dr. Rosangela Smyth Eosinophils/100 WBC (Bld) 1.4 % Normal 0.9-7.0 [facility] Comment on above: Performed By: #### L ACT #### [facility] [address] [address] [address] Rosangela Smyth Erythrocyte distribution width (RBC) [Ratio] 16.1 % Critically high 11.0-15.0 [facility] Comment on above: Performed By: #### L ACT #### [facility] [address] [place] [address] Dr. Rosangela Smyth Hematocrit (Bld) [Volume fraction] 27.6 % Critically low 36.0-48.0 [facility] Comment on above: Performed By: #### L ACT #### [facility] [address] [address] [address] Rosangela Smyth Hemoglobin (Bld) [Mass/Vol] 9.2 g/dL Critically low 12.0-16.0 [facility] Comment on above: Performed By: #### L ACT #### [facility] [address] [address] [address] Rosangela Smyth IG # 0.01 10e3/ul Normal 0.00-0.03 [facility] Comment on above: Performed By: #### L ACT #### [facility] [address] [address] [address] Rosangela Smyth IG % 0.3 % Normal 0.0-0.5 [facility] Comment on above: Performed By: #### L ACT #### [facility] [address] [address] [address] Rosangela Smyth LYMPH # 0.6 103/ul Critically low 1.2-3.8 [facility] Comment on above: Performed By: #### L ACT #### [facility] [address] [address] [address] Rosangela Smyth Lymphocytes/100 WBC (Bld) 17.1 % Critically low 20.5-60.0 [facility] Comment on above: Performed By: #### L ACT #### [facility] [address] [address] [address] Rosangela Smyth MANUAL DIFF REQ NO Normal [facility] Comment on above: Performed By: #### L ACT #### [facility] [address] [address] [address] Rosangela Smyth MCH (RBC) [Entitic mass] 30.6 pg Normal 26.7-34.0 [facility] Comment on above: Performed By: #### L ACT #### [facility] [address] [address] [address] Rosangela Smyth MCHC (RBC) [Mass/Vol] 33.3 g/dL Normal 29.9-35.2 [facility] Comment on above: Performed By: #### L ACT #### [facility] [address] [address] [address] Rosangela Smyth MCV (RBC) [Entitic vol] 91.7 fL Normal 81.0-99.0 [facility] Comment on above: Performed By: #### L ACT #### [facility] [address] [address] [address] Rosangela Smyth MONO # 0.4 103/ul Normal 0.3-0.8 [facility] Comment on above: Performed By: #### L ACT #### [facility] [address] [address] [address] Rosangela Smyth Monocytes/100 WBC (Bld) 10.0 % Normal 1.7-12.0 [facility] Comment on above: Performed By: #### L ACT #### [facility] [address] [place] [address] Dr. Rosangela Smyth NEUT # 2.6 103/ul Normal 1.4-6.5 [facility] Comment on above: Performed By: #### L ACT #### [facility] [address] [address] [address] Rosangela Smyth Neutrophils/100 WBC (Bld) 70.9 % Normal 43.0-75.0 [facility] Comment on above: Performed By: #### L ACT #### [facility] [address] [place] [address] Dr. Rosangela Smyth Platelet mean volume (Bld) [Entitic vol] 8.2 fL Critically low 9.5-13.5 [facility] Comment on above: Performed By: #### L ACT #### [facility] [address] [address] [address] Rosangela Smyth PLT 277 103/ul Normal 150-450 [facility] Comment on above: Performed By: #### L ACT #### [facility] [address] [address] [address] Rosangela Smyth RBC 3.01 106/ul Critically low 4.20-5.40 [facility] Comment on above: Performed By: #### L ACT #### [facility] [address] [place] [address] Dr. Rosangela Smyth WBC 3.7 103/ul Critically low 4.0-11.0 [facility] Comment on above: Performed By: #### L ACT #### [facility] [address] [place] [address] Dr. Rosangela Smyth GROUP A STREP CULTUREon S. pyogenes Ag Ql (Unsp spec) Culture Observations: NEGATIVE FOR GROUP A STREPTOCOCCUS. Normal [facility] Comment on above: Performed By: #### L ACT #### [facility] [address] [place] [address] Dr. Rosangela Smyth PROF 14(COMP METB)on 023 Albumin [Mass/Vol] 3.8 g/dL Normal 3.4-5.0 [facility] Comment on above: Performed By: #### C YULIANA CORDONDM #### [facility] [address] [place] [address] Dr. Rosangela Smyth Albumin/Globulin [Mass ratio] 1.1 {ratio} Normal [facility] Comment on above: Performed By: #### C YULIANA CORDONDM #### [facility] [address] [place] [address] Dr. Rosangela Smyth ALP [Catalytic activity/Vol] 88 U/L Normal 46-116 [facility] Comment on above: Performed By: #### C YULIANA CODRONDM #### [facility] [address] [place] [address] Dr. Rosangela Smyth ALT [Catalytic activity/Vol] 31 U/L Normal 14-59 [facility] Comment on above: Performed By: #### C NERIS, CMADM #### [facility] [address] [place] [address] Dr. Rosangela Smyth Anion gap [Moles/Vol] 10.2 mmol/L Normal [facility] Comment on above: Performed By: #### C NERIS, CMADM #### [facility] [address] [place] [address] Dr. Rosangela Smyth AST [Catalytic activity/Vol] 24 U/L Normal 15-37 [facility] Comment on above: Performed By: #### C MP, CMADM #### [facility] [address] [address] [address] Rosangela Smyth Bilirubin [Mass/Vol] 0.3 mg/dL Normal 0.2-1.0 [facility] Comment on above: Performed By: #### C MP, CMADM #### [facility] [address] [place] [address] Dr. Rosangela Smyth Calcium [Mass/Vol] 11.1 mg/dL Critically high 8.5-10.1 [facility] Comment on above: Performed By: #### C MP, CMADM #### [facility] [address] [place] [address] Dr. Rosangela Smyth Chloride [Moles/Vol] 101 mmol/L Normal 98-107 [facility] Comment on above: Performed By: #### C MP, CMADM #### [facility] [address] [place] [address] Dr. Rosangela Smyth CO2 [Moles/Vol] 26.4 mmol/L Normal 21.0-32.[address] [facility] Comment on above: Performed By: #### C MP, CMADM #### [facility] [address] [place] [address] Dr. Rosangela Smyth Creatinine [Mass/Vol] 1.15 mg/dL Critically high 0.55-1.02 [facility] Comment on above: Performed By: #### C MP, CMADM #### [facility] [address] [place] [address] Dr. Rosangela Smyth EGFR-AF KYRGYZ 59 mL/min/1.73m2 Critically low >=60 [facility] Comment on above: Performed By: #### C MP, CMADM #### [facility] [address] [place] [address] Dr. Rosangela Smyth EGFR-NON AF KYRGYZ 48 mL/min/1.73m2 Critically low >=60 [facility] Comment on above: Performed By: #### C MP, CMADM #### [facility] [address] [place] [address] Dr. Rosangela Smyth Globulin (S) [Mass/Vol] 3.6 g/dL Normal [facility] Comment on above: Performed By: #### C VIRAL CORDON #### [facility] [address] [place] [address] Dr. Rosangela Smyth Glucose [Mass/Vol] 174 mg/dL Critically high 74-106 [facility] Comment on above: Performed By: #### C YULIANA CORDONDM #### [facility] [address] [place] [address] Dr. Rosangela Smyth Potassium [Moles/Vol] 4.6 mmol/L Normal 3.5-5.1 [facility] Comment on above: Performed By: #### C YULIANA CORDONDM #### [facility] [address] [place] [address] Dr. Rosangela Smyth Protein [Mass/Vol] 7.4 g/dL Normal 6.4-8.2 [facility] Comment on above: Performed By: #### C VIRAL CORDON #### [facility] [address] [place] [address] Dr. Rosangela Smyth Sodium [Moles/Vol] 133 mmol/L Critically low 136-145 [facility] [place] Comment on above: Performed By: #### C VIRAL CORDON #### [facility] [address] [place] [address] Dr. Rosangela Smyth Urea nitrogen [Mass/Vol] 14.0 mg/dL Normal 7.0-18.0 [facility] Comment on above: Performed By: #### C VIRAL CORDON #### [facility] [address] [place] [address] Dr. Rosangela Smyth Urea nitrogen/Creatinine [Mass ratio] 12.2 mg/mg Normal [facility] Comment on above: Performed By: #### C YULIANA CORDONDM #### [facility] [address] [place] [address] Dr. Rosangela Smyth STREPT SCREENon 09-12-2022 STREP SCREEN A Negative Normal NEGATIVE [facility] Comment on above: Performed By: #### L ACT #### [facility] [address] [place] [address] Dr. Rosangela Smyth XR CHEST 1 Von [...] by: LINNETTE AVENDANO Date: 2022-09-12 13:23 Normal [facility] Progress Noteson 09-03-2022 Professional Driver Authentication Interface Message Text EMERGENCY TRIAGE, TREAT AND TRANSPORT (ET3) DOCUMENTATION OF TELEHEALTH VISIT Date / Time: 03/18/2022 / 15:00 Name: Kaya Schilling : 1965 SSN: (Not on file) EMS Agency: [facility] [x] Verbal consent obtained [...] [Catalytic activity/Vol] 49 U/L Normal 25-115 [facility] Comment on above: Performed By: #### C BC #### [facility] [address] [place] [address] Dr. Rosangela Smyth CBC AUTO DIFFon 07-08-2022 BASO # 0.0 103/ul Normal 0.0-0.1 [facility] Comment on above: Performed By: #### O BSCRN #### [facility] [address] [place] [address] Dr. Rosangela Smyth Basophils/100 WBC (Bld) 0.4 % Normal 0.2-2.0 [facility] Comment on above: Performed By: #### O BSCRN #### [facility] [address] [place] [address] Dr. Rosangela Smyth EO # 0.2 103/ul Normal 0.0-0.7 [facility] Comment on above: Performed By: #### O BSCRN #### [facility] [address] [place] [address] Dr. Rosangela Smyth Eosinophils/100 WBC (Bld) 4.4 % Normal 0.9-7.0 [facility] Comment on above: Performed By: #### O BSCRN #### [facility] [address] [place] [address] Dr. Rosangela Smyth Erythrocyte distribution width (RBC) [Ratio] 17.9 % Critically high 11.0-15.0 [facility] Comment on above: Performed By: #### O BSCRN #### [facility] [address] [place] [address] Dr. Rosangela Smyth Hematocrit (Bld) [Volume fraction] 30.4 % Critically low 36.0-48.0 [facility] Comment on above: Performed By: #### O BSCRN #### [facility] [address] [place] [address] Dr. Rosangela Smyth Hemoglobin (Bld) [Mass/Vol] 9.6 g/dL Critically low 12.0-16.0 [facility] Comment on above: Performed By: #### O BSCRN #### [facility] [address] [place] [address] Dr. Rosangela Smyth IG # 0.02 10e3/ul Normal 0.00-0.03 [facility] Comment on above: Performed By: #### O BSCRN #### [facility] [address] [place] [address] Dr. Rosangela Smyth IG % 0.4 % Normal 0.0-0.5 [facility] Comment on above: Performed By: #### O BSCRN #### [facility] [address] [place] [address] Dr. Rosangela Smyth LYMPH # 1.4 103/ul Normal 1.2-3.8 [facility] Comment on above: Performed By: #### O BSCRN #### [facility] [address] [place] [address] Dr. Rosangela Smyth Lymphocytes/100 WBC (Bld) 28.6 % Normal 20.5-60.0 [facility] Comment on above: Performed By: #### O BSCRN #### [facility] [address] [place] [address] Dr. Rosangela Smyth MANUAL DIFF REQ NO Normal [facility] Comment on above: Performed By: #### O BSCRN #### [facility] [address] [address] [address] Rosangela Smyth MCH (RBC) [Entitic mass] 30.8 pg Normal 26.7-34.0 [facility] Comment on above: Performed By: #### O BSCRN #### [facility] [address] [place] [address] Dr. Rosangela Smyth MCHC (RBC) [Mass/Vol] 31.6 g/dL Normal 29.9-35.2 [facility] Comment on above: Performed By: #### O BSCRN #### [facility] [address] [place] [address] Dr. Rosangela Smyth MCV (RBC) [Entitic vol] 97.4 fL Normal 81.0-99.0 [facility] Comment on above: Performed By: #### O BSCRN #### [facility] [address] [place] [address] Dr. Rosangela Smyth MONO # 0.3 103/ul Normal 0.3-0.8 [facility] Comment on above: Performed By: #### O BSCRN #### [facility] [address] [place] [address] Dr. Rosangela Smyth Monocytes/100 WBC (Bld) 6.6 % Normal 1.7-12.0 [facility] Comment on above: Performed By: #### O BSCRN #### [facility] [address] [place] [address] Dr. Rosangela Smyth NEUT # 3.0 103/ul Normal 1.4-6.5 [facility] Comment on above: Performed By: #### O BSCRN #### [facility] [address] [place] [address] Dr. Rosangela Smyth Neutrophils/100 WBC (Bld) 59.6 % Normal 43.0-75.0 [facility] Comment on above: Performed By: #### O BSCRN #### [facility] [address] [place] [address] Dr. Rosangela Smyth Platelet mean volume (Bld) [Entitic vol] 8.6 fL Critically low 9.5-13.5 [facility] Comment on above: Performed By: #### O BSCRN #### [facility] [address] [place] [address] Dr. Rosangela Smyth PLT 351 103/ul Normal 150-450 [facility] Comment on above: Performed By: #### O BSCRN #### [facility] [address] [address] [address] Rosangela Smyth RBC 3.12 106/ul Critically low 4.20-5.40 [facility] Comment on above: Performed By: #### O BSCRN #### [facility] [address] [place] [address] Dr. Rosangela Smyth WBC 5.0 103/ul Normal 4.0-11.0 [facility] Comment on above: Performed By: #### O BSCRN #### [facility] [address] [place] [address] Dr. Rosangela Smyth Covid-19 PCR ([facility])on SARS-CoV-2 (COVID-19) RNA RICH+probe Ql (Unsp spec) Not detected Normal NOT DETECTED [facility] Comment on above: Result Comment: When [...] for this test is supported by the [place] of Health and Human Service's declaration that [...] Performed By: #### L IPID, CMP #### [facility] [address] [address] [address] Rosangela EASLEY URINE PROFILEon 2 Bilirubin Ql (U) Negative Normal NEGATIVE [facility] Comment on above: Performed By: #### L IPID, CMP #### [facility] [address] [place] [address] Dr. Rosangela Smyth Clarity (U) CLEAR Normal CLEAR [facility] Comment on above: Performed By: #### L IPID, CMP #### [facility] [address] [address] [address] Rosangela Smyth Color (U) LT. YELLOW Normal YELLOW [facility] Comment on above: Performed By: #### L IPID, CMP #### [facility] [address] [place] [address] Dr. Rosangela ANAND A micrscopic examination will be performed if indicated. Normal [facility] Comment on above: Performed By: #### L IPID, CMP #### [facility] [address] [place] [address] Dr. Rosangela Smyth Glucose Ql (U) Negative Normal NEGATIVE [facility] Comment on above: Performed By: #### L IPID, CMP #### [facility] [address] [place] [address] Dr. Rosangela Smyth Hemoglobin Ql (U) Negative Normal NEGATIVE [facility] Comment on above: Performed By: #### L IPID, CMP #### [facility] [address] [place] [address] Dr. Rosangela Smyth Ketones Ql (U) Negative Normal NEGATIVE [facility] Comment on above: Performed By: #### L IPID, CMP #### [facility] [address] [place] [address] Dr. Rosangela Smyth LEUKOCYTES Negative Normal NEGATIVE [facility] Comment on above: Performed By: #### L IPID, CMP #### [facility] [address] [place] [address] Dr. Rosangela Smyth Nitrite Ql (U) Negative Normal NEGATIVE [facility] Comment on above: Performed By: #### L IPID, CMP #### [facility] [address] [place] [address] Dr. Rosangela Smyth pH (U) 6.0 [pH] Normal 5-9 [facility] Comment on above: Performed By: #### L IPID, CMP #### [facility] [address] [place] [address] Dr. Rosangela Smyth SPEC GRAVITY 1.010 Normal 1.005-<=1.02 5 [facility] Comment on above: Performed By: #### L IPID, CMP #### [facility] [address] [place] [address] Dr. Rosangela Smyth UA PROTEIN Negative Normal NEGATIVE/ TRACE [facility] Comment on above: Performed By: #### L IPID, CMP #### [facility] [address] [place] [address] Dr. Rosangela Smyth UR MICRO IND NOT INDICATED Normal [facility] Comment on above: Performed By: #### L IPID, CMP #### [facility] [address] [place] [address] Dr. Rosangela Smyth Urobilinogen Qn (U) 0.2 {Estevan'U}/dL Normal 0.2 - 1. 0 [facility] Comment on above: Performed By: #### L IPID, CMP #### [facility] [address] [place] [address] Dr. Rosangela Smyth LIPASEon 07-08-2022 Lipase [Catalytic activity/Vol] 89.0 U/L Normal 73.0-393.0 [facility] Comment on above: Performed By: #### L ACT #### [facility] [address] [place] [address] Dr. Rosangela Smyth PROF 14(COMP METB)on 022 Albumin [Mass/Vol] 3.9 g/dL Normal 3.4-5.0 [facility] Comment on above: Performed By: #### C BC #### [facility] [address] [place] [address] Dr. Rosangela Smyth Albumin/Globulin [Mass ratio] 1.1 {ratio} Normal [facility] Comment on above: Performed By: #### C BC #### [facility] [address] [place] [address] Dr. Rosangela Smyth ALP [Catalytic activity/Vol] 86 U/L Normal 46-116 [facility] Comment on above: Performed By: #### C BC #### [facility] [address] [place] [address] Dr. Rosangela Smyth ALT [Catalytic activity/Vol] 22 U/L Normal 14-59 [facility] Comment on above: Performed By: #### C BC #### [facility] [address] [place] [address] Dr. Rosangela Smyth Anion gap [Moles/Vol] 10.1 mmol/L Normal [facility] Comment on above: Performed By: #### C BC #### [facility] [address] [place] [address] Dr. Rosangela Smyth AST [Catalytic activity/Vol] 15 U/L Normal 15-37 [facility] Comment on above: Performed By: #### C BC #### [facility] [address] [place] [address] Dr. Rosangela Smyth Bilirubin [Mass/Vol] 0.3 mg/dL Normal 0.2-1.0 [facility] Comment on above: Performed By: #### C BC #### [facility] [address] [place] [address] Dr. Rosangela Smyth Calcium [Mass/Vol] 11.8 mg/dL Critically high 8.5-10.1 [facility] Comment on above: Performed By: #### C BC #### [facility] [address] [place] [address] Dr. Rosangela Smyth Chloride [Moles/Vol] 104 mmol/L Normal 98-107 [facility] Comment on above: Performed By: #### C BC #### [facility] [address] [place] [address] Dr. Rosangela Smyth CO2 [Moles/Vol] 28.4 mmol/L Normal 21.0-32.0 [facility] Comment on above: Performed By: #### C BC #### [facility] [address] [place] [address] Dr. Rosangela Smyth Creatinine [Mass/Vol] 0.84 mg/dL Normal 0.55-1.02 [facility] Comment on above: Performed By: #### C BC #### [facility] [address] [place] [address] Dr. Rosangela Smyth EGFR-AF KYRGYZ >60 Normal >=60 [facility] Comment on above: Performed By: #### C BC #### [facility] [address] [place] [address] Dr. Rosangela Smyth EGFR-NON AF KYRGYZ >60 Normal >=60 [facility] Comment on above: Performed By: #### C BC #### [facility] [address] [place] [address] Dr. Rosangela Smyth Globulin (S) [Mass/Vol] 3.7 g/dL Normal [facility] Comment on above: Performed By: #### C BC #### [facility] [address] [place] [address] Dr. Rosangela Smyth Glucose [Mass/Vol] 82 mg/dL Normal 74-106 [facility] Comment on above: Performed By: #### C BC #### [facility] [address] [place] [address] Dr. Rosangela Smyth Potassium [Moles/Vol] 4.5 mmol/L Normal 3.5-5.1 [facility] Comment on above: Performed By: #### C BC #### [facility] [address] [place] [address] Dr. Rosangela Smyth Protein [Mass/Vol] 7.6 g/dL Normal 6.4-8.2 [facility] Comment on above: Performed By: #### C BC #### [facility] [address] [place] [address] Dr. Rosangela Smyth Sodium [Moles/Vol] 138 mmol/L Normal 136-145 [facility] Comment on above: Performed By: #### C BC #### [facility] [address] [place] [address] Dr. Rosangela Smyth Urea nitrogen [Mass/Vol] 10.0 mg/dL Normal 7.0-18.0 [facility] Comment on above: Performed By: #### C BC #### [facility] [address] [address] [address] Rosangela Smyth Urea nitrogen/Creatinine [Mass ratio] 11.9 mg/mg Normal [facility] Comment on above: Performed By: #### C BC #### [facility] [id number] Rosangela Smyth TROPONIN, HIGH SENSITIVITYon 07-08-2022 HSTROP 7.7 pg/mL Normal 4.0-51.3 [facility] Comment on above: Result Comment: CUT- OFF POINTS HAVE BEEN ESTABLISHED BASED ON THE FOURTH UNIVERSAL DEFINITIONS OF MYOCARDIAL INFARCTION. THE UPPER REFERENCE LIMIT (URL) OF TROPONIN, DEFINED THE 99TH PERCENTILE OF cTnI DISTRIBUTION IN A REFERENCE POPULATION, HAS BEEN CONFIRMED THE DECISION THRESHOLD FOR MT DIAGNOSIS. Performed By: #### L ACT #### [facility] [address] [address] [address] Rosangela Smyth CBC W Auto Differential pane l (Bld)on 05-22-2022 Abs Immature Gran <0.10 k/uL [facility] Basophils (Bld) [#/Vol] 0.03 10*3/uL <0.11 k/uL [facility] Basophils/100 WBC (Bld) 0.5 % [facility] Differential cell count method Nom (Bld) Auto [facility] Eosinophils (Bld) [#/Vol] 0.26 10*3/uL <0.46 k/uL [facility] Eosinophils/100 WBC (Bld) 4.5 % [facility] Erythrocyte distribution width (RBC) [Ratio] 18.1 % High 11.5 - 15.0 % [facility] Hematocrit (Bld) [Volume fraction] 30.1 % Low 36.0 - 46.0 % [facility] Hemoglobin (Bld) [Mass/Vol] 9.3 g/dL Low 11.5 - 15.5 g/dL [facility] Immature Gran % 0.2 % [facility] Lymphocytes (Bld) [#/Vol] 1.40 10*3/uL 1.00 - 4.00 k/uL [facility] Lymphocytes/100 WBC (Bld) 24.1 % [facility] MCH (RBC) [Entitic mass] 29.5 pg 26.0 - 34.0 pg [facility] MCHC (RBC) [Mass/Vol] 30.9 g/dL 30.5 - 36.0 g/dL [facility] MCV (RBC) [Entitic vol] 95.6 fL 80.0 - 100.0 fL [facility] Monocytes (Bld) [#/Vol] 0.36 10*3/uL <0.87 k/uL [facility] Monocytes/100 WBC (Bld) 6.2 % [facility] [facility] (Bld) [#/Vol] 3.76 10*3/uL 1.45 - 7.50 k/uL [facility] Neutrophils/100 WBC (Bld) 64.5 % [facility] Nucleated RBC (Bld) [#/Vol] <0.01 k/uL [facility] Nucleated RBC/100 WBC (Bld) [Ratio] 0.0 /100 WBC [facility] Platelet mean volume (Bld) [Entitic vol] 8.6 fL Low 9.0 - 12.7 fL [facility] Platelets (Bld) [#/Vol] 335 10*3/uL 150 - 400 k/uL [facility] RBC (Bld) [#/Vol] 3.15 10*6/uL Low 3.90 - 5.2 0 m/uL [facility] WBC (Bld) [#/Vol] 5.82 10*3/uL 3.70 - 11. 00 k/uL [facility] LD LACTATE DEHYDROon 022 LDH [Catalytic activity/Vol] 149 U/L 135 - 214 U/L [facility] RETIC COUNTon 05-22-2022 Reticulocytes (Bld) [#/Vol] 0.49606 10*3/uL 0.018 - 0.100 M/uL [facility] Reticulocytes (Bld) [#/Vol]o n 05-22-2022 Reticulocytes/100 RBC (Bld) 1.9 % 0.4 - 2.0 % [facility] LITHIUMon 05-20-2022 Poth (Eskalith(R)), Serum 0.9 mmol/L Normal 0.5-1.2 [facility] Comment on above: Result Comment: Plas ma concentration of 0.5 - 0.8 mmol/L are advised for long-term use; concentrations of up to 1.2 mmol/L may be necessary during acute treatment. Detection Limit = 0.1 <0.1 indicates None Detected Performed By: #### L ACT #### [facility] [address] [place] [address] Dr. Rosangela Smyth CREATININEon 05-19-2022 Creatinine [Mass/Vol] 0.84 mg/dL Normal 0.55-1.02 [facility] Comment on above: Performed By: #### O BSCRN #### [facility] [address] [place] [address] Dr. Rosangela Smyth EGFR-AF KYRGYZ >60 Normal >=[address] [facility] Comment on above: Performed By: #### O BSCRN #### [facility] [address] [place] [address] Dr. Rosangela Smyth EGFR-NON AF KYRGYZ >60 Normal >=60 [facility] Comment on above: Performed By: #### O BSCRN #### [facility] [address] [place] [address] Dr. Rosangela Smyth TSHon 05-19-2022 TSH 2.337 uIU/mL Normal 0.358-3.740 [facility] Comment on above: Performed By: #### O BSCRN #### [facility] [address] [place] [address] Dr. Rosangela Smyth CBC AUTO DIFFon 05-16-2022 BASO # 0.0 103/ul Normal 0.0-0.1 [facility] Comment on above: Performed By: #### L IPID, CMP #### [facility] [address] [place] [address] Dr. Rosangela Smyth Basophils/100 WBC (Bld) 0.4 % Normal 0.2-2.0 [facility] Comment on above: Performed By: #### L IPID, CMP #### [facility] [address] [place] [address] Dr. Rosangela Smyth EO # 0.3 103/ul Normal 0.0-0.7 [facility] Comment on above: Performed By: #### L IPID, CMP #### [facility] [address] [place] [address] Dr. Rosangela Smyth Eosinophils/100 WBC (Bld) 5.3 % Normal 0.9-7.0 [facility] Comment on above: Performed By: #### L IPID, CMP #### [facility] [address] [place] [address] Dr. Rosangela Smyth Erythrocyte distribution width (RBC) [Ratio] 18.5 % Critically high 11.0-15.0 [facility] Comment on above: Performed By: #### L IPID, CMP #### [facility] [address] [place] [address] Dr. Rosangela Smyth Hematocrit (Bld) [Volume fraction] 30.9 % Critically low 36.0-48.0 [facility] Comment on above: Performed By: #### L IPID, CMP #### [facility] [address] [place] [address] Dr. Rosangela Smyth Hemoglobin (Bld) [Mass/Vol] 9.7 g/dL Critically low 12.0-16.0 [facility] Comment on above: Performed By: #### L IPID, CMP #### [facility] [address] [place] [address] Dr. Rosangela Smyth IG # 0.01 10e3/ul Normal 0.00-0.03 [facility] Comment on above: Performed By: #### L IPID, CMP #### [facility] [address] [place] [address] Dr. Rosangela Smyth IG % 0.2 % Normal 0.0-0.5 [facility] Comment on above: Performed By: #### L IPID, CMP #### [facility] [address] [place] [address] Dr. Rosangela Smyth LYMPH # 1.7 103/ul Normal 1.2-3.8 [facility] Comment on above: Performed By: #### L IPID, CMP #### [facility] [address] [place] [address] Dr. Rosangela Smyth Lymphocytes/100 WBC (Bld) 31.6 % Normal 20.5-60.0 [facility] Comment on above: Performed By: #### L IPID, CMP #### [facility] [address] [place] [address] Dr. Rosangela Smyth MANUAL DIFF REQ NO Normal [facility] Comment on above: Performed By: #### L IPID, CMP #### [facility] [address] [place] [address] Dr. Rosangela Smyth MCH (RBC) [Entitic mass] 30.1 pg Normal 26.7-34.0 [facility] Comment on above: Performed By: #### L IPID, CMP #### [facility] [address] [place] [address] Dr. Rosangela Smyth MCHC (RBC) [Mass/Vol] 31.4 g/dL Normal 29.9-35.2 [facility] Comment on above: Performed By: #### L IPID, CMP #### [facility] [address] [place] [address] Dr. Rosangela Smyth MCV (RBC) [Entitic vol] 96.0 fL Normal 81.0-99.0 [facility] Comment on above: Performed By: #### L IPID, CMP #### [facility] [address] [place] [address] Dr. Rosangela Smyth MONO # 0.5 103/ul Normal 0.3-0.8 [facility] Comment on above: Performed By: #### L IPID, CMP #### [facility] [address] [place] [address] Dr. Rosangela Smyth Monocytes/100 WBC (Bld) 8.7 % Normal 1.7-12.0 [facility] Comment on above: Performed By: #### L IPID, CMP #### [facility] [address] [place] [address] Dr. Rosangela Smyth NEUT # 3.0 103/ul Normal 1.4-6.5 [facility] Comment on above: Performed By: #### L IPID, CMP #### [facility] [address] [place] [address] Dr. Rosangela Smyth Neutrophils/100 WBC (Bld) 53.8 % Normal 43.0-75.0 [facility] Comment on above: Performed By: #### L IPID, CMP #### [facility] [address] [address] [address] Rosangela Smyth Platelet mean volume (Bld) [Entitic vol] 8.2 fL Critically low 9.5-13.5 [facility] Comment on above: Performed By: #### L IPID, CMP #### [facility] [address] [address] [address] Rosangela Smyth PLT 361 103/ul Normal 150-450 [facility] Comment on above: Performed By: #### L IPID, CMP #### [facility] [address] [address] [address] Rosangela Smyth RBC 3.22 106/ul Critically low 4.20-5.40 [facility] Comment on above: Performed By: #### L IPID, CMP #### [facility] [address] [address] [address] Rosangela Smyth WBC 5.5 103/ul Normal 4.0-11.0 [facility] Comment on above: Performed By: #### L IPID, CMP #### [facility] [address] [place] [address] Dr. Rosangela Smyth OCC BLD IMMUNO SCREENon 05-07 OCCULT BLOOD Negative Normal NEGATIVE [facility] Comment on above: Performed By: #### O BSCRN #### [facility] [address] [place] [address] Dr. Rosangela Smyth PROF CHEM 8 (BAS METB)on Anion gap [Moles/Vol] 13.7 mmol/L Normal [facility] Comment on above: Performed By: #### O BSCRN #### [facility] [address] [place] [address] Dr. Rosangela Smyth Calcium [Mass/Vol] 11.2 mg/dL Critically high 8.5-10.1 [facility] Comment on above: Performed By: #### O BSCRN #### [facility] [address] [address] [address] Rosangela Smyth Chloride [Moles/Vol] 105 mmol/L Normal 98-107 [facility] Comment on above: Performed By: #### O BSCRN #### [facility] [address] [address] [address] Rosangela Smyth CO2 [Moles/Vol] 24.4 mmol/L Normal 21.0-32.0 [facility] Comment on above: Performed By: #### O BSCRN #### [facility] [address] [address] [address] Rosangela Smyth Creatinine [Mass/Vol] 0.95 mg/dL Normal 0.55-1.02 [facility] Comment on above: Performed By: #### O BSCRN #### [facility] [address] [address] [address] Rosangela Smyth EGFR-AF KYRGYZ >60 Normal >=60 [facility] Comment on above: Performed By: #### O BSCRN #### [facility] [address] [place] [address] Dr. Rosangela Smyth EGFR-NON AF KYRGYZ =60 Normal >=60 [facility] Comment on above: Performed By: #### O BSCRN #### [facility] [address] [place] [address] Dr. Rosangela Smyth Glucose [Mass/Vol] 91 mg/dL Normal 74-106 [facility] Comment on above: Performed By: #### O BSCRN #### [facility] [address] [address] [address] Rosangela Smyth Potassium [Moles/Vol] 4.1 mmol/L Normal 3.5-5.1 [facility] Comment on above: Performed By: #### O BSCRN #### [facility] [address] [address] [address] Rosangela Smyth Sodium [Moles/Vol] 139 mmol/L Normal 136-145 [facility] Comment on above: Performed By: #### O BSCRN #### [facility] [address] [address] [address] Rosangela Smyth Urea nitrogen [Mass/Vol] 11.0 mg/dL Normal 7.0-18.0 [facility] Comment on above: Performed By: #### O BSCRN #### [facility] [address] [place] [address] Dr. Rosangela Smyth Urea nitrogen/Creatinine [Mass ratio] 11.6 mg/mg Normal [facility] Comment on above: Performed By: #### O BSCRN #### [facility] [address] [place] [address] Dr. Rosangela Smyth CBC AUTO DIFFon 05-04-2022 BASO # 0.0 103/ul Normal 0.0-0.1 [facility] Comment on above: Performed By: #### L IPID, CMP #### [facility] [address] [place] [address] Dr. Rosangela Smyth Basophils/100 WBC (Bld) 0.4 % Normal 0.2-2.0 [facility] Comment on above: Performed By: #### L IPID, CMP #### [facility] [address] [place] [address] Dr. Rosangela Smyth EO # 0.4 103/ul Normal 0.0-0.7 [facility] Comment on above: Performed By: #### L IPID, CMP #### [facility] [address] [place] [address] Dr. Rosangela Smyth Eosinophils/100 WBC (Bld) 6.6 % Normal 0.9-7.0 [facility] Comment on above: Performed By: #### L IPID, CMP #### [facility] [address] [place] [address] Dr. Rosangela Smyth Erythrocyte distribution width (RBC) [Ratio] 19.3 % Critically high 11.0-15.0 [facility] Comment on above: Performed By: #### L IPID, CMP #### [facility] [address] [place] [address] Dr. Rosangela Smyth Hematocrit (Bld) [Volume fraction] 29.8 % Critically low 36.0-48.0 [facility] Comment on above: Performed By: #### L IPID, CMP #### [facility] [address] [address] [address] Rosangela Smyth Hemoglobin (Bld) [Mass/Vol] 9.3 g/dL Critically low 12.0-16.0 [facility] Comment on above: Performed By: #### L IPID, CMP #### [facility] [address] [address] [address] Rosangela Smyth IG # 0.01 10e3/ul Normal 0.00-0.03 [facility] Comment on above: Performed By: #### L IPID, CMP #### [facility] [address] [place] [address] Dr. Rosangela Smyth IG % 0.2 % Normal 0.0-0.5 [facility] Comment on above: Performed By: #### L IPID, CMP #### [facility] [address] [place] [address] Dr. Rosangela Smyth LYMPH # 1.3 103/ul Normal 1.2-3.8 [facility] Comment on above: Performed By: #### L IPID, CMP #### [facility] [address] [place] [address] Dr. Rosangela Smyth Lymphocytes/100 WBC (Bld) 23.5 % Normal 20.5-60.0 [facility] Comment on above: Performed By: #### L IPID, CMP #### [facility] [address] [place] [address] Dr. Rosangela Smyth MANUAL DIFF REQ NO Normal [facility] Comment on above: Performed By: #### L IPID, CMP #### [facility] [address] [place] [address] Dr. Rosangela Smyth MCH (RBC) [Entitic mass] 29.3 pg Normal 26.7-34.0 [facility] Comment on above: Performed By: #### L IPID, CMP #### [facility] [address] [place] [address] Dr. Rosangela Smyth MCHC (RBC) [Mass/Vol] 31.2 g/dL Normal 29.9-35.2 [facility] Comment on above: Performed By: #### L IPID, CMP #### [facility] [address] [place] [address] Dr. Rosangela Smyth MCV (RBC) [Entitic vol] 94.0 fL Normal 81.0-99.0 [facility] Comment on above: Performed By: #### L IPID, CMP #### [facility] [address] [place] [address] Dr. Rosangela Smyth MONO # 0.4 103/ul Normal 0.3-0.8 [facility] Comment on above: Performed By: #### L IPID, CMP #### [facility] [address] [place] [address] Dr. Rosangela Smyth Monocytes/100 WBC (Bld) 6.6 % Normal 1.7-12.0 [facility] Comment on above: Performed By: #### L IPID, CMP #### [facility] [address] [place] [address] Dr. Rosangela Smyth NEUT # 3.5 103/ul Normal 1.4-6.5 [facility] Comment on above: Performed By: #### L IPID, CMP #### [facility] [address] [place] [address] Dr. Rosangela Smyth Neutrophils/100 WBC (Bld) 62.7 % Normal 43.0-75.0 [facility] Comment on above: Performed By: #### L IPID, CMP #### [facility] [address] [place] [address] Dr. Rosangela Smyth Platelet mean volume (Bld) [Entitic vol] 8.2 fL Critically low 9.5-13.5 [facility] Comment on above: Performed By: #### L IPID, CMP #### [facility] [address] [place] [address] Dr. Rosangela Smyth PLT 337 103/ul Normal 150-450 [facility] Comment on above: Performed By: #### L IPID, CMP #### [facility] [address] [place] [address] Dr. Rosanglea Smyth RBC 3.17 106/ul Critically low 4.20-5.40 [facility] Comment on above: Performed By: #### L IPID, CMP #### [facility] [address] [address] [address] Rosangela Smyth WBC 5.6 103/ul Normal 4.0-11.0 [facility] Comment on above: Performed By: #### L IPID, CMP #### [facility] [address] [address] [address] Rosangela Smyth TSHon 05-04-2022 TSH 1.227 uIU/mL Normal 0.358-3.740 [facility] Comment on above: Performed By: #### L IPID, CMP #### [facility] [address] [place] [address] Dr. Rosangela Smyth GLYCOHEMOGLOBIN A1Con 2021 ADA RECOMMENDATION SEE BELOW Normal [facility] Comment on above: Result Comment: ADA RECOMMENDED LIMIT 4.0 - 6.0 ADA THERAPEUTIC TARGET < 7.0 ACTION SUGGESTED > 7.0 Performed By: #### L IPID, CMP #### [facility] [address] [address] [address] Rosangela Smyth Glucose [Mass/Vol] 154 mg/dL Normal [facility] Comment on above: Performed By: #### L IPID, CMP #### [facility] [address] [place] [address] Dr. Rosangela Smyth HbA1c (Bld) [Mass fraction] 7.0 % Critically high 4.5-6.2 [facility] Comment on above: Performed By: #### L IPID, CMP #### [facility] [address] [place] [address] Dr. Rosangela Smyth LIPID PROFILEon 04-03-2022 CHOL-HDL RATIO NORM SEE BELOW Normal [facility] Comment on above: Result Comment: 3.3 - 4.4 LOW RISK 4.4 - 7.1 AVERAGE RISK 7.1 - 11.0 MODERATE RISK >11.0 HIGH RISK Performed By: #### L IPID, CMP #### [facility] [address] [place] [address] Dr. Rosangela Smyth Cholesterol [Mass/Vol] 147 mg/dL Normal <=200 [facility] Comment on above: Performed By: #### L IPID, CMP #### [facility] [address] [address] [address] Rosangela Smyth Cholesterol in HDL [Mass/Vol] 64 mg/dL Critically high 40-60 [facility] Comment on above: Performed By: #### L IPID, CMP #### [facility] [address] [address] [address] Rosangela Smyth Cholesterol in LDL [Mass/Vol] 70.8 mg/dL Normal [facility] Comment on above: Performed By: #### L IPID, CMP #### [facility] [address] [address] [address] Rosangela Smyth Cholesterol.total/C holesterol in HDL [Mass ratio] 2.3 {ratio} Normal [facility] Comment on above: Performed By: #### L IPID, CMP #### [facility] [address] [address] [address] Rosangela Smyth HDL NORMAL > or = 60 mg/dl - LO W CARDIOVASCULAR RISK <40 mg/dl - HIGH CARDIOVASCULAR RISK Normal [facility] Comment on above: Performed By: #### L IPID, CMP #### [facility] [address] [address] [address] Rosangela Smyth LDL CALC NORMAL SEE BELOW Normal [facility] Comment on above: Result Comment: <100 mg/dl OPTIMAL 100 - 129 mg/dl NEAR OR ABOVE OPTIMAL 130 - 159 mg/dl BORDERLINE HIGH 160 - 189 mg/dl HIGH >190 mg/dl VERY HIGH Performed By: #### L IPID, CMP #### [facility] [address] [address] [address] Rosangela Smyth Triglyceride [Mass/Vol] 61 mg/dL Normal <=150 [facility] Comment on above: Performed By: #### L IPID, CMP #### [facility] [address] [address] [address] Rosangela Smyth VLDL CALC 12.2 mg/dL Normal [facility] Comment on above: Performed By: #### L IPID, CMP #### [facility] [address] [address] [address] Rosangela Smyth PROF 14(COMP METB)on 022 Albumin [Mass/Vol] 3.7 g/dL Normal 3.4-5.0 [facility] Comment on above: Performed By: #### L IPID, CMP #### [facility] [address] [address] [address] Rosangela Smyth Albumin/Globulin [Mass ratio] 1.1 {ratio} Normal [facility] Comment on above: Performed By: #### L IPID, CMP #### [facility] [address] [place] [address] Dr. Rosangela Smyth ALP [Catalytic activity/Vol] 92 U/L Normal 46-116 [facility] Comment on above: Performed By: #### L IPID, CMP #### [facility] [address] [place] [address] Dr. Rosangela Smyth ALT [Catalytic activity/Vol] 25 U/L Normal 14-59 [facility] Comment on above: Performed By: #### L IPID, CMP #### [facility] [address] [place] [address] Dr. Rosangela Smyth Anion gap [Moles/Vol] 11.8 mmol/L Normal [facility] Comment on above: Performed By: #### L IPID, CMP #### [facility] [address] [address] [address] Rosangela Smyth AST [Catalytic activity/Vol] 11 U/L Critically low 15-37 [facility] Comment on above: Performed By: #### L IPID, CMP #### [facility] [address] [address] [address] Rosangela Smyth Bilirubin [Mass/Vol] 0.2 mg/dL Normal 0.2-1.0 [facility] Comment on above: Performed By: #### L IPID, CMP #### [facility] [address] [place] [address] Dr. Rosangela Smyth Calcium [Mass/Vol] 10.6 mg/dL Critically high 8.5-10.1 [facility] Comment on above: Performed By: #### L IPID, CMP #### [facility] [address] [place] [address] Dr. Rosangela Smyth Chloride [Moles/Vol] 105 mmol/L Normal 98-107 [facility] Comment on above: Performed By: #### L IPID, CMP #### [facility] [address] [place] [address] Dr. Rosangela Smyth CO2 [Moles/Vol] 25.9 mmol/L Normal 21.0-32.[address] [facility] Comment on above: Performed By: #### L IPID, CMP #### [facility] [address] [place] [address] Dr. Rosangela Smyth Creatinine [Mass/Vol] 0.86 mg/dL Normal 0.55-1.02 [facility] Comment on above: Performed By: #### L IPID, CMP #### [facility] [address] [place] [address] Dr. Rosangela Smyth EGFR-AF KYRGYZ >60 Normal >=[address] [facility] Comment on above: Performed By: #### L IPID, CMP #### [facility] [address] [place] [address] Dr. Rosangela Smyth EGFR-NON AF KYRGYZ >60 Normal >=60 [facility] Comment on above: Performed By: #### L IPID, CMP #### [facility] [address] [place] [address] Dr. Rosangela Smyth Globulin (S) [Mass/Vol] 3.5 g/dL Normal [facility] Comment on above: Performed By: #### L IPID, CMP #### [facility] [address] [place] [address] Dr. Rosangela Smyth Glucose [Mass/Vol] 197 mg/dL Critically high 74-106 [facility] Comment on above: Performed By: #### L IPID, CMP #### [facility] [address] [place] [address] Dr. Rosangela Smyth Potassium [Moles/Vol] 4.7 mmol/L Normal 3.5-5.1 [facility] Comment on above: Performed By: #### L IPID, CMP #### [facility] [address] [place] [address] Dr. Rosangela Smyth Protein [Mass/Vol] 7.2 g/dL Normal 6.4-8.2 [facility] Comment on above: Performed By: #### L IPID, CMP #### [facility] [address] [place] [address] Dr. Rosangela Smyth Sodium [Moles/Vol] 138 mmol/L Normal 136-145 [facility] Comment on above: Performed By: #### L IPID, CMP #### [facility] [address] [place] [address] Dr. Rosangela Smyth Urea nitrogen [Mass/Vol] 16.0 mg/dL Normal 7.0-18.0 [facility] Comment on above: Performed By: #### L IPID, CMP #### [facility] [address] [place] [address] Dr. Rosangela Smyth Urea nitrogen/Creatinine [Mass ratio] 18.6 mg/mg Normal [facility] Comment on above: Performed By: #### L IPID, CMP #### [facility] [address] [place] [address] Dr. Rosangela Smyth GLYCOHEMOGLOBIN A1Con 2021 ADA RECOMMENDATION SEE BELOW Normal [facility] Comment on above: Result Comment: ADA RECOMMENDED LIMIT 4.0 - 6.0 ADA THERAPEUTIC TARGET < 7.0 ACTION SUGGESTED > 7.0 Performed By: #### L IPID, CMP #### [facility] [address] [place] [address] Dr. Rosangela Smyth Glucose [Mass/Vol] 134 mg/dL Normal [facility] Comment on above: Performed By: #### L IPID, CMP #### [facility] [address] [place] [address] Dr. Rosangela Smyth HbA1c (Bld) [Mass fraction] 6.3 % Critically high 4.5-6.2 [facility] Comment on above: Performed By: #### L IPID, CMP #### [facility] [address] [address] [address] Rosangela Smyth LIPID PROFILEon 01-31-2022 CHOL-HDL RATIO NORM SEE BELOW Normal [facility] Comment on above: Result Comment: 3.3 - 4.4 LOW RISK 4.4 - 7.1 AVERAGE RISK 7.1 - 11.0 MODERATE RISK >11.0 HIGH RISK Performed By: #### L ACT #### [facility] [address] [address] [address] Rosangela Smyth Cholesterol [Mass/Vol] 134 mg/dL Normal <=200 [facility] Comment on above: Performed By: #### L ACT #### [facility] [address] [address] [address] Rosangela Smyth Cholesterol in HDL [Mass/Vol] 68 mg/dL Critically high 40-60 [facility] Comment on above: Performed By: #### L ACT #### [facility] [address] [address] [address] Rosangela Smyth Cholesterol in LDL [Mass/Vol] 55.0 mg/dL Normal [facility] Comment on above: Performed By: #### L ACT #### [facility] [address] [address] [address] Rosangela Smyth Cholesterol.total/C holesterol in HDL [Mass ratio] 2.0 {ratio} Normal [facility] Comment on above: Performed By: #### L ACT #### [facility] [address] [address] [address] Rosangela Smyth HDL NORMAL > or = 60 mg/dl - LO W CARDIOVASCULAR RISK <40 mg/dl - HIGH CARDIOVASCULAR RISK Normal [facility] Comment on above: Performed By: #### L ACT #### [facility] [id number] Rosangela Smyth LDL CALC NORMAL SEE BELOW Normal [facility] Comment on above: Result Comment: <100 mg/dl OPTIMAL 100 - 129 mg/dl NEAR OR ABOVE OPTIMAL 130 - 159 mg/dl BORDERLINE HIGH 160 - 189 mg/dl HIGH >190 mg/dl VERY HIGH Performed By: #### L ACT #### [facility] [address] [place] [address] Dr. Rosangela Smyth Triglyceride [Mass/Vol] 55 mg/dL Normal <=150 [facility] Comment on above: Performed By: #### L ACT #### [facility] [address] [place] [address] Dr. Rosangela Smyth VLDL CALC 11.0 mg/dL Normal [facility] Comment on above: Performed By: #### L ACT #### [facility] [address] [address] [address] Rosangela Smyth PROF 14(COMP METB)on 022 Albumin [Mass/Vol] 4.0 g/dL Normal 3.4-5.0 [facility] Comment on above: Performed By: #### L ACT #### [facility] [address] [place] [address] Dr. Rosangela Smyth Albumin/Globulin [Mass ratio] 1.0 {ratio} Normal [facility] Comment on above: Performed By: #### L ACT #### [facility] [address] [place] [address] Dr. Rosangela Smyth ALP [Catalytic activity/Vol] 105 U/L Normal 46-116 [facility] Comment on above: Performed By: #### L ACT #### [facility] [address] [place] [address] Dr. Rosangela Smyth ALT [Catalytic activity/Vol] 30 U/L Normal 14-59 [facility] Comment on above: Performed By: #### L ACT #### [facility] [address] [place] [address] Dr. Rosangela Smyth Anion gap [Moles/Vol] 10.7 mmol/L Normal [facility] Comment on above: Performed By: #### L ACT #### [facility] [address] [place] [address] Dr. Rosangela Smyth AST [Catalytic activity/Vol] 14 U/L Critically low 15-37 [facility] Comment on above: Performed By: #### L ACT #### [facility] [address] [place] [address] Dr. Rosangela Smyth Bilirubin [Mass/Vol] 0.2 mg/dL Normal 0.2-1.0 [facility] Comment on above: Performed By: #### L ACT #### [facility] [address] [address] [address] Rosangela Smyth Calcium [Mass/Vol] 11.1 mg/dL Critically high 8.5-10.1 [facility] Comment on above: Performed By: #### L ACT #### [facility] [address] [address] [address] Rosangela Smyth Chloride [Moles/Vol] 104 mmol/L Normal 98-107 [facility] Comment on above: Performed By: #### L ACT #### [facility] [address] [place] [address] Dr. Rosangela Smyth CO2 [Moles/Vol] 26.8 mmol/L Normal 21.0-32.[address] [facility] Comment on above: Performed By: #### L ACT #### [facility] [address] [place] [address] Dr. Rosangela Smyth Creatinine [Mass/Vol] 0.68 mg/dL Normal 0.55-1.02 [facility] Comment on above: Performed By: #### L ACT #### [facility] [address] [place] [address] Dr. Rosangela Smyth EGFR-AF KYRGYZ >60 Normal >=[address] [facility] Comment on above: Performed By: #### L ACT #### [facility] [address] [address] [address] Rosangela Smyth EGFR-NON AF KYRGYZ >60 Normal >=60 [facility] Comment on above: Performed By: #### L ACT #### [facility] [address] [address] [address] Rosangela Smyth Globulin (S) [Mass/Vol] 4.0 g/dL Normal [facility] Comment on above: Performed By: #### L ACT #### [facility] [address] [place] [address] Dr. Rosangela Smyth Glucose [Mass/Vol] 142 mg/dL Critically high 74-106 [facility] Comment on above: Performed By: #### L ACT #### [facility] [address] [address] [address] Rosangela Smyth Potassium [Moles/Vol] 4.5 mmol/L Normal 3.5-5.1 [facility] Comment on above: Performed By: #### L ACT #### [facility] [address] [address] [address] Rosangela Smyth Protein [Mass/Vol] 8.0 g/dL Normal 6.4-8.2 [facility] Comment on above: Performed By: #### L ACT #### [facility] [address] [address] [address] Rosangela Smyth Sodium [Moles/Vol] 137 mmol/L Normal 136-145 [facility] Comment on above: Performed By: #### L ACT #### [facility] [address] [address] [address] Rosangela Smyth Urea nitrogen [Mass/Vol] 14.0 mg/dL Normal 7.0-18.0 [facility] Comment on above: Performed By: #### L ACT #### [facility] [address] [address] [address] Rosangela Smyth Urea nitrogen/Creatinine [Mass ratio] 20.6 mg/mg Normal [facility] Comment on above: Performed By: #### L ACT #### [facility] [address] [address] [address] Rosangela Smyth Gamma Glutamyl Transpeptidas anurag 07-23-2021 Gamma Glutamyl Transpeptidase 71 [employer] Other Ambulatory Clinical Summaryo n 02-26-2021 Ambulatory Clinical Summary {[id number]}CD:[id number] Normal [facility] Ambulatory Clinical Summaryo n 02-07-2021 Ambulatory Clinical Summary {[id number]}CD:[id number] Normal [facility] Ambulatory Clinical Summary {[id number]}CD:[id number] [facility] Formson 02-07-2021 Forms [id number] D:127 Normal [facility] Historical Records Officeon 02-07-2021 Historical Records Office [id number] D:127 Normal [facility] Patient Educationon 02-08-20 21 Patient Education Urology Urinary Incontinence Urinary incontinence [...] nerve stimulation). ? For women, using a district medical examiner to prevent urine leaks. This is a [...] after experiencing incontinence. General instructions ? Take esfb-mvf-xveftsp and prescription medicines only as (more content not included)... Normal [facility] Urology Office/Clinic Noteon 02-07-2021 Urology Office/Clinic [...] Will order Local anesthesia. ABX sent to [facility] in [place]. I have reviewed the previous health record information and history for this pt. from Dr. Cote. Follow-up With When Contact Information KERA VAN, Chicho Beaulieu, URL [address] [place] [address] [place] [address]- [phone] Additional Instructions: Patient Education Urinary Incontinence IVanesa , personally scribed for Dr. Cote on [...] 10:55:00) Nitrite (more content not included)... Normal [facility] Comment on above: Result Comment: Elec tronically Signed By: Chicho COTE MD\.br\Date and Time Signed: 02/07/21 11:47 EDT\.br\Electronically Co-Signed By: Vanesa Pruitt MA\.br\Date and Time Co-Signed: 02/07/21 11:[address] NECK SOFT TISSUE WO IVCON on 01-29-2021 [facility] Physician Referralon 020 Physician Referral [id number] D:127 Normal [facility] Vital Signs Date Time Vital Sign Value Performing Clinician Facility 04-18-2024 13:41-0400 Body height 165.1 cm Beto Vivar MD Work Phone: [facility] 04-18-2024 13:41-0400 Body mass index (BMI) [Ratio] 18.31 kg/m2 Beto Vivar MD Work Phone: [facility] 04-18-2024 13:41-0400 Body temperature 97.59 [degF] Beto Vivar MD Work Phone: [facility] 04-18-2024 13:41-0400 Body weight 49.9 kg Beto Vivar MD Work Phone: [facility] 04-18-2024 13:41-0400 Diastolic blood pressure 77 mm[Hg] Beto Vivar MD Work Phone: [facility] 04-18-2024 13:41-0400 Heart rate 103 /min Beto Vivar MD Work Phone: [facility] 04-18-2024 13:41-0400 Respiratory rate 16 /min Beto Vivar MD Work Phone: [facility] 04-18-2024 13:41-0400 SaO2% (BldA) [Mass fraction] 99 % Beto Vivar MD Work Phone: [facility] 04-18-2024 13:41-0400 Systolic blood pressure 160 mm[Hg] Beto Vivar MD Work Phone: [facility] 04-14-2024 09:38-0400 Body temperature 97.7 [degF] Chair Lagrange Work Phone: [facility] 04-14-2024 09:38-0400 Diastolic blood pressure 83 mm[Hg] Chair Lagrange Work Phone: [facility] 04-14-2024 09:38-0400 Heart rate 90 /min Chair Rebekah Work Phone: [facility] 04-14-2024 09:38-0400 Respiratory rate 18 /min Chair Rebekah Work Phone: [facility] 04-14-2024 09:38-0400 SaO2% (BldA) [Mass fraction] 100 % Chair Rebekah Work Phone: [facility] 04-14-2024 09:38-0400 Systolic blood pressure 156 mm[Hg] Chair Rebekah Work Phone: [facility] 04-14-2024 08:38-0400 Body height 165.1 cm Lillie Bundridge CABLE TELEVISION LINE TECHNICIAN.FLOOR CLERK Work Phone: [facility] 04-14-2024 08:38-0400 Body mass index (BMI) [Ratio] 19.22 kg/m2 Lillie Bundridge CABLE TELEVISION LINE TECHNICIAN.FLOOR CLERK Work Phone: [facility] 04-14-2024 08:38-0400 Body temperature 97.39 [degF] Lillie Bundridge CABLE TELEVISION LINE TECHNICIAN.FLOOR CLERK Work Phone: [facility] 04-14-2024 08:38-0400 Body weight 52.4 kg Lillie Bundridge CABLE TELEVISION LINE TECHNICIAN.FLOOR CLERK Work Phone: [facility] 04-14-2024 08:38-0400 Diastolic blood pressure 79 mm[Hg] Lillie Bundridge CABLE TELEVISION LINE TECHNICIAN.FLOOR CLERK Work Phone: [facility] 04-14-2024 08:38-0400 Heart rate 96 /min Lillie Bundridge CABLE TELEVISION LINE TECHNICIAN.FLOOR CLERK Work Phone: [facility] 04-14-2024 08:38-0400 Respiratory rate 16 /min Lillie Bundridge CABLE TELEVISION LINE TECHNICIAN.FLOOR CLERK Work Phone: [facility] 04-14-2024 08:38-0400 SaO2% (BldA) [Mass fraction] 100 % Lillei Bundridge CABLE TELEVISION LINE TECHNICIAN.FLOOR CLERK Work Phone: [facility] 04-14-2024 08:38-0400 Systolic blood pressure 149 mm[Hg] Lillie Richter APRN.FLOOR CLERK Work Phone: [facility] 04-07-2024 13:59-0400 Body temperature 98.4 [degF] Chair Lagrange Work Phone: [facility] 04-07-2024 13:59-0400 Diastolic blood pressure 92 mm[Hg] Chair Lagrange Work Phone: [facility] 04-07-2024 13:59-0400 Heart rate 85 /min Chair Lagrange Work Phone: [facility] 04-07-2024 13:59-0400 Respiratory rate 16 /min Chair Lagrange Work Phone: [facility] 04-07-2024 13:59-0400 SaO2% (BldA) [Mass fraction] 100 % Chair Lagrange Work Phone: [facility] 04-07-2024 13:59-0400 Systolic blood pressure 161 mm[Hg] Chair Rebekah Work Phone: [facility] 04-06-2024 15:12-0400 Body temperature 97.2 [degF] Ma Sand Work Phone: [facility] 04-06-2024 15:12-0400 Diastolic blood pressure 73 mm[Hg] Ma Sand Work Phone: [facility] 04-06-2024 15:12-0400 Heart rate 97 /min Ma Sand Work Phone: [facility] 04-06-2024 15:12-0400 Respiratory rate 20 /min Ma Sand Work Phone: [facility] 04-06-2024 15:12-0400 SaO2% (BldA) [Mass fraction] 100 % Ma Sand Work Phone: [facility] 04-06-2024 15:12-0400 Systolic blood pressure 169 mm[Hg] Ma Sand Work Phone: [facility] 03-23-2024 15:31-0400 Body mass index (BMI) [Ratio] 19.11 kg/m2 Beto Vivar MD Work Phone: [facility] 03-23-2024 15:31-0400 Body temperature 97.81 [degF] Beto Vivar MD Work Phone: [facility] 03-23-2024 15:31-0400 Body weight 52.1 kg Beto Vivar MD Work Phone: [facility] 03-23-2024 15:31-0400 Diastolic blood pressure 84 mm[Hg] Beto Vivar MD Work Phone: [facility] 03-23-2024 15:31-0400 Heart rate 79 /min Beto Vivar MD Work Phone: [facility] 03-23-2024 15:31-0400 Respiratory rate 16 /min Beto Vivar MD Work Phone: [facility] 03-23-2024 15:31-0400 SaO2% (BldA) [Mass fraction] 100 % Beto Vivar MD Work Phone: [facility] 03-23-2024 15:31-0400 Systolic blood pressure 172 mm[Hg] Beto Vivar MD Work Phone: [facility] 05-22-2022 11:23-0400 Body height 165.1 cm Ignacio Sam MD Work Phone: [facility] 05-22-2022 11:23-0400 Body temperature 97.59 [degF] Ignacio Sam MD Work Phone: [facility] 05-22-2022 11:23-0400 Body weight 71.22 kg Ignacio Sam MD Work Phone: [facility] 05-22-2022 11:23-0400 Diastolic blood pressure 80 mm[Hg] Ignacio Sam MD Work Phone: [facility] 05-22-2022 11:23-0400 Heart rate 95 /min Ignacio Sam MD Work Phone: [facility] 05-22-2022 11:23-0400 Respiratory rate 16 /min Ignacio Sam MD Work Phone: [facility] 05-22-2022 11:23-0400 SaO2% (BldA) [Mass fraction] 100 % Ignacio Sam MD Work Phone: [facility] 05-22-2022 11:23-0400 Systolic blood pressure 145 mm[Hg] Ignacio Sam MD Work Phone: [facility] 07-23-2021 11:45-0500 Body height 165.1 cm Neo Madirdormack Other [employer] Other 07-23-2021 11:45-0500 Body mass index (BMI) [Ratio] 24.29 kg/m2 Neo Ashley Other [employer] Other 07-23-2021 11:45-0500 Body weight 66.23 kg Neo Madridormack Other [employer] Other 06-02-2021 15:40-0400 Body height 165.1 cm Brynn Mg Other [employer] Other 06-02-2021 15:40-0400 Body mass index (BMI) [Ratio] 24.83 kg/m2 Brynn Mg Other [employer] Other 06-02-2021 15:40-0400 Body temperature 96.9 [degF] Brnyn Mg Other [employer] Other 06-02-2021 15:40-0400 Body weight 67.68 kg Brynn Mg Other [employer] Other 06-02-2021 15:40-0400 Diastolic blood pressure 80 mm[Hg] Brynn Mg Other [employer] Other 06-02-2021 15:40-0400 Respiratory rate 18 /min Brynn Mg Other [employer] Other 06-02-2021 15:40-0400 SaO2% (BldA) [Mass fraction] 99 % Brynn Mg Other [employer] Other 06-02-2021 15:40-0400 Systolic blood pressure 136 mm[Hg] Brynn Mg Other [employer] Other Encounters Encounter Date Encounter Type Care Provider Facility Start: 04-28-2024 End: 04-28-2024 Refill Lillie Richter APRN.FLOOR CLERK Work Phone: Palliative Medicine Comment on above: Refill Request Start: 04-26-2024 End: 04-26-2024 Telephone encounter April Frye real estate attorney Services Comment on above: Care Coordination Care Coordination (P D-L1 Question) Returning Patient's Call Start: 04-24-2024 End: 04-27-2024 Telephone encounter Dinh Andino RN [facility] Radiol ogy Procedure Comment on above: Appointment Refill Request Insurance Authorizat ion (Butran 20 mcg patch ) Vp Human Resources - O ther (Missed Appointment) Start: 04-24-2024 End: 04-24-2024 ambulatory BETO VIVAR [facility] Start: 04-21-2024 Telephone encounter April Frye RN [facility] Palliative Medicine Comment on above: Care Coordination (P ain ) Radiology Pre Proced ure Instructions Care Coordination (B 12) Care Coordination (A ntiemetic) Start: 04-20-2024 Telephone encounter Brea pozo RN Work Phone: Hematology/Oncology Comment on above: Care Coordination (A ppointment Question) Radiology Pre Proced ure Instructions Start: 04-19-2024 Telephone encounter Lillie Richter APRN.FLOOR CLERK Work Phone: Palliative Medicine Comment on above: Patient Update Start: 04-18-2024 Telephone encounter Beto hurley MD Work Phone: Cancer [facility] Comment on above: Additional testing Port Placement Start: 04-18-2024 End: 04-18-2024 Patient encounter procedure Beto Vivar MD Work Phone: Hematology/Oncology Start: 04-18-2024 End: 04-19-2024 ambulatory Chair 21 Rebekah Work Phone: Hematology/Oncology Comment on above: Hypercalcemia of mal ignancy (Primary Dx); 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); Hypercalcemia of malignancy; Iron deficiency anemia due to chronic blood loss; B12 deficiency; Acquired hypothyroidism; Cancer related pain Start: 04-17-2024 Telephone encounter Lillie Richter APRN.FLOOR CLERK Work Phone: Palliative Medicine Comment on above: Care Coordination (S tomach pain ) Start: 04-15-2024 Telephone encounter Faby martinez MD Work Phone: Hematology/Oncology Comment on above: Medication Problem Start: 04-14-2024 End: 04-14-2024 Patient encounter procedure Lillie Richter APRN.FLOOR CLERK Work Phone: Palliative Medicine Comment on above: [...] Start: 04-14-2024 End: 04-14-2024 ambulatory Chair 11 Rebekah Work Phone: Hematology/Oncology Comment on above: [...] Surgery Consult) Start: 04-10-2024 ambulatory Dajuan Whaley Facility:[facility] Start: 04-07-2024 Telephone encounter Kaila London RN Hematology/Oncology Comment on above: Patient Question; Iman Dey Care Coordination (S can Results) Patient Question; Maryann re Coordinator - Other Start: 04-07-2024 End: 04-10-2024 ambulatory Chair 14 Rebekah Work Phone: Hematology/Oncology Comment on above: 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); Iron deficiency anemia due to chronic blood loss Start: 04-06-2024 End: 04-06-2024 Nursing evaluation of patient and report Bre Ybarra Work Phone: Hematology/Oncology Comment on above: 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) Start: 04-06-2024 End: 04-06-2024 ambulatory BETO VIVAR Facility:[facility] Start: 04-06-2024 End: 04-06-2024 ambulatory BETO VIVAR Facility:[facility] Start: 04-04-2024 End: 04-04-2024 ambulatory BETO VIVAR [facility] Start: 04-03-2024 End: 04-03-2024 ambulatory Erendira [...] blood loss Start: 03-28-2024 End: 03-28-2024 ambulatory [facility] Start: 03-28-2024 Telephone encounter Tena Broderick Hematology/Oncology Comment on above: Pain Start: 03-27-2024 End: 04-28-2024 Telephone encounter Jeanne Mccormick MD, PhD Work Phone: [facility] Comment [...] FISH Analysis) Start: 03-22-2024 End: 03-22-2024 ambulatory [facility] Start: 03-17-2024 Chart abstracting Beto kennedy MD Work Phone: Hematology/Oncology Start: 03-07-2024 End: 03-07-2024 ambulatory [facility] Start: 03-03-2024 End: 03-03-2024 Evaluation and management of inpatient MINE BENTON [facility] Start: 03-02-2024 End: 03-03-2024 Evaluation and management of inpatient CONG MONTANO [facility] Start: 02-24-2024 End: 02-24-2024 ambulatory [facility] Start: 02-21-2024 End: 02-21-2024 ambulatory [facility] Start: 02-18-2024 End: 02-18-2024 ambulatory [facility] Start: 02-16-2024 ambulatory [facility] Start: 02-02-2024 End: 02-02-2024 ambulatory [facility] Start: 01-21-2024 End: 01-21-2024 ambulatory [place] Start: 01-21-2024 End: 01-21-2024 ambulatory [facility] Start: 11-17-2023 End: 11-17-2023 Office outpatient visit 15 minutes Anna Marie [facility] BERENICE-LUPILLO Work Phone: [facility]icians Internal Medicine - Family Medicine Comment on above: Diarrhea of presumed infectious origin (Primary Dx); Weakness; Type 2 diabetes mellitus without complication, without long-term current use of insulin ([facility]); Hyperparathyroidism ([facility]) Start: 11-17-2023 End: 11-17-2023 ambulatory [facility] Start: 11-11-2023 Telephone [facility] Start: 11-05-2023 Telephone encounter Con [facility] Start: 10-25-2023 [facility] Comment on above: Type 2 diabetes noe itus without complication, without long- term current use of insulin ([facility]) Start: 10-24-2023 Refill [facility] Work Phone: [facility] Internal Medicine - Family Medicine Comment on above: Type 2 diabetes noe itus without complication, without long- term current use of insulin ([facility]) Start: 09-03-2023 Refill Kostas Gianluca Chendionisio eloise DO [facility] Comment on above: Acquired hypothyroid ism Start: 08-23-2023 End: 08-23-2023 ambulatory KOSTAS Hough [facility] Start: 08-23-2023 End: 08-23-2023 ambulatory KOSTAS CHENELOISE [facility] Start: 01-17-2023 End: 01-17-2023 ambulatory [...] 07-15-2022 End: 07-15-2022 ambulatory Neo Calhoun Other [employer] Other Start: 07-15-2022 Telephone encounter Neo Nation ck [facility] Cloth Handler Start: 07-08-2022 End: 07-08-[address] TEE KRAUSE . Facility:[facility] Start: 07-03-2022 Telephone encounter Ignacio hardwick MD Work Phone: Cancer [facility] Comment on above: Patient Update Start: 06-04-2022 Telephone encounter Ignacio hardwick MD Work Phone: Cancer [facility] Comment on above: Appointment Cancelle d Start: 05-29-2022 Telephone encounter Jackie Silverio CONCRETE MIXER OPERATOR H ematology/Oncology Comment on above: Social Work Services Start: 05-26-2022 Telephone encounter Regina Soto Efrain sser PA-C Work Phone: Hematology/Oncology Comment on above: Lab Orders Start: 05-25-2022 Telephone encounter Yvonne Echavarria RN Hematology/Oncology Comment on above: Results Start: 05-22-2022 End: 05-22-2022 ambulatory Ignacio Sam MD Work Phone: Hematology/Oncology Comment on above: Anemia, normocytic n ormochromic (Primary Dx) Start: 05-22-2022 End: 05-22-2022 Patient encounter procedure Ignacio Sam MD Work Phone: [place] Start: 05-21-2022 Chart abstracting Ignacio gee MD Work Phone: Hematology/Oncology Start: 05-19-2022 End: 05-20-[address] KOSTAS STEWARD Facility:[facility] Start: 05-16-2022 End: 05-16-2022 ambulatory FOX DUFF Facility:[facility] Start: 05-04-2022 End: 05-05-[address] KOSTAS STEWARD Facility:[facility] Start: 04-23-2022 End: 04-23-2022 ambulatory Neo Calhoun Other [employer] Other Start: 04-23-2022 Telephone encounter Neo Nation ck [facility] Start: 04-03-2022 End: 04-04-[address] KOSTAS STEWARD Facility:[facility] Start: 01-31-2022 End: 02-01-[address] KOSTAS STEWARD Facility:[facility] Start: 01-02-2022 End: 01-02-2022 ambulatory Neo Calhoun Other [employer] Other Start: 01-02-2022 Telephone encounter Neo powell [facility] Start: 08-18-2021 End: 08-18-2021 ambulatory Neo Calhoun Other [employer] Other Start: 08-18-2021 Telephone encounter Neo powell [facility] Start: 07-23-2021 End: 07-23-2021 ambulatory Neo Calhoun Other [employer] Other Start: 07-23-2021 Office outpatient vi sit 25 minutes Neo Calhoun [facility] Start: 06-02-2021 Office outpatient ne w 45 minutes Brynn Holliday [facility] Start: 01-29-2021 End: 01-29-2021 Subsequent hospital visit by physician [facility] ([facility]) Radiology Comment on above: Disorder of airway [ J98.9] Procedures Date Procedure Procedure Detail Performing Clinician Start: 04-14-2024 Drug tst prsmv instr mnt chem analyzers pr date Lillie Richter CABLE TELEVISION LINE TECHNICIAN.FLOOR CLERK Work Phone: Start: 03-02-2024 Colonoscopy Beto kennedy MD Work Phone: Start: 01-21-2024 Follow-up visit Follow-up KOSTAS STEWRAD Start: 08-23-2023 Adult depression scr eening assessment Kostas Setward DO Work Phone: Start: 08-23-2023 Microalbumin [Mass/v [...] for malign ant neoplasm of colon Colonoscopy [facility] Start: 04-18-2027 Diabetes Screening Diabetes Screenin [facility] Start: 03-23-2027 Diabetes Screening Diabetes Screenin [facility] Start: 01-20-2027 Diabetes Screening Diabetes Screenin [facility] Start: 03-02-2025 Screening for malign ant neoplasm of colon [facility] Start: 08-23-2024 Adult BMI Screening Adult BMI Screen ing [facility] Start: 08-23-2024 Depression Screening Depression Scre ening [facility] Start: 08-23-2024 Tobacco Screening Tobacco Screening [facility] Start: 08-23-2024 Urine screening for protein Urine Microalbumin [facility] Start: 08-12-2024 Screening for malign ant neoplasm of breast [facility] Start: 05-12-2024 End: 05-12-2024 Patient encounter procedure 05/12/2024 9:30 AM EDT Office Visit Palliative Medicine [address] [place] [address] Lillie Richter, CABLE TELEVISION LINE TECHNICIAN.FLOOR CLERK [address] [place] [address] 4 week follow up Palliative Medicine Comment on above: 4 week follow up Start: 05-07-2024 Influenza vaccination Influenza Vacc ine (#1) [facility] Start: 05-04-2024 End: 05-04-2024 Follow-up encounter 05/04/2024 11:00 AM EDT Infusion Center Hematology/Oncology [address] [place] [address] follow up and chemotx FOLFOX + NIVO Hematology/Oncology Comment on above: follow up and chemot x FOLFOX + NIVO Start: 05-04-2024 End: 05-04-2024 Nutrition therapy 05/04/2024 10:00 AM EDT Education Nutrition Therapy [address] [place] [address] [place] [address] phone f/u Nutrition Therapy Comment on above: phone f/u Start: 05-02-2024 End: 05-02-2024 Follow-up encounter Hematology/Oncology Comment on above: follow up and chemot x FOLFOX + NIVO follow up and chemot x FOLFOX + NIVO-PORT Start: 05-01-2024 End: 05-01-2024 Nursing evaluation of patient and report 05/01/2024 9:00 AM EDT Nurse Visit Hematology/Oncology [address] [place] [address] Brea Villagomez, RN [address] [place] [address] Chemo Ed Hematology/Oncology Comment on above: Chemo Ed Start: 04-28-2024 End: 04-28-2024 Nursing evaluation of patient and report 04/28/2024 9:00 AM EDT Nurse Visit Hematology/Oncology [address] [place] [address] Brea Villagomez, RN [address] [place] [address] Chemo ed for FOLFOX/Nivo Hematology/Oncology Comment on above: Chemo ed for FOLFOX/ Nivo Start: 04-25-2024 End: 04-25-2024 Admission to same day surgery center 04/25/2024 11:30 AM EDT - 04/25/2024 1:00 PM EDT Surgery [facility] Radiology Procedure [id number] [place] [address] Alex Masterson MD [address] [place] [address] INSERTION PORT VENOUS ACCESS ADULT [facility] Radiology Procedure Comment on above: INSERTION PORT VENOU S ACCESS ADULT Start: 04-25-2024 End: 04-25-2024 Insj tunneled ctr vad w/subq port age 4 yr/> INSERTION PORT VENOUS ACCESS ADULT Malignant neoplasm of cardia (HCC) 04/25/2024 11:30 AM EDT AV IR Start: 04-25-2024 Subsequent hospital visit by physician 04/25/2024 11:30 AM EDT Hospital Encounter [facility] Radiology Procedure [id number] [place] [address] Alex Masterson MD [address] [place] [address] 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] [facility] Radiology Procedure Comment on above: Malignant neoplasm o f cardia (HCC) [C16.0] Start: 04-24-2024 End: 04-24-2024 Nursing evaluation of patient and report 04/24/2024 1:00 PM EDT Nurse Visit Hematology/Oncology [address] [place] [address] [place] [address] Brea Villagomez, RN [address] [place] [address] Chemo ed for FOLFOX/Nivo Hematology/Oncology Comment on above: Chemo ed for FOLFOX/ Nivo Start: 04-21-2024 End: 04-21-2024 ambulatory 04/21/2024 1:30 PM EDT Infusion Center Hematology/Oncology [address] [place] [address] [place] [address] IV Fe # 4 B 12 inj Hematology/Oncology Comment on above: IV Fe # 4 B 12 inj Start: 04-21-2024 End: 04-21-2024 Nursing evaluation of patient and report 04/21/2024 10:30 AM EDT Nurse Visit Hematology/Oncology [address] [place] [address] [place] [address] Bre Ybarra Nurse Beltran [address] [place] [address] B12 x monthly needs scheduled for more b-12 injection once [facility] gives follow up for BRM-phone encounter Hematology/Oncology Comment on above: B12 x monthly nee ds scheduled for more b-12 injection once [facility] gives follow up for BRM-phone encounter Start: 04-18-2024 End: 04-18-2024 Nursing evaluation of patient and report 04/18/2024 2:00 PM EDT Nurse Visit Hematology/Oncology [address] [place] [address] Bre Ybarra Nurse Beltran [address] [place] [address] B12 x monthly needs scheduled for more b-12 injection-monthly Hematology/Oncology Comment on above: B12 x monthly nee ds scheduled for more b-12 injection-monthly Start: 04-18-2024 End: 04-18-2024 ambulatory 04/18/2024 1:45 PM EDT Visit (SP) Office Hematology/Oncology [address] [place] [address] Beto Vivar MD [address] [place] [address] 04/12-This Date/Time Per [facility] Hematology/Oncology Comment on above: 04/12-This Date/Time P er mit Start: 04-18-2024 End: 04-18-2024 Patient encounter procedure 04/18/2024 1:30 PM EDT Office Visit [facility] [address] [place] [address] [place] [address] 04/12-This Date/Time Per [facility] Comment on above: 04/12-This Date/Time P er [facility] Start: 04-14-2024 End: 07-14-2024 PAIN PANEL, UR QUANT [facility] Work Phone: Comment on above: Expected: 04/14/2024 , Expires: 07/14/2024 Start: 04-14-2024 End: 07-14-2024 TOXICOLOGY SCREEN, ROUTINE URINE [facility] Comment on above: Expected: 04/14/2024 , Expires: 07/14/2024 Start: 04-14-2024 End: 04-14-2024 Nutrition therapy 04/14/2024 10:45 AM EDT Education Nutrition Therapy [address] [place] [address] [place] [address] phone f/u Nutrition Therapy Comment on above: phone f/u Start: 04-14-2024 End: 04-14-2024 ambulatory Hematology/Oncology Comment on above: IV Fe 04/12[facility] to let pt know about her b-12 being moved from 04/21 to 04/18 Start: 04-14-2024 End: 04-14-2024 Patient encounter procedure 04/14/2024 8:30 AM EDT Office Visit Palliative Medicine [address] [place] [address] [place] [address] Lillie Richter, CABLE TELEVISION LINE TECHNICIAN.FLOOR CLERK [address] [place] [address] Pall Med appt Ref by Dr Beto Vivar Palliative Medicine Comment on above: Pall Med appt Ref by Dr Beto Vivar Start: 04-07-2024 End: 04-07-2024 ambulatory 04/07/2024 1:30 PM EDT Infusion Center Hematology/Oncology [address] [place] [address] IV Fe x 4 doeses Hematology/Oncology Comment on above: IV Fe x 4 doeses Start: 04-06-2024 End: 04-06-2024 Patient encounter procedure Radiology Pet CT Comment on above: Pet scan and CT CA w ith contrast CT CA with contrast CCN not approved Start: 04-01-2024 Glaucoma screening Diabetic Op hthalmology Exam [facility] Start: 03-30-2024 End: 03-30-2024 ambulatory Hematology/Oncology Comment on above: IV Fe next available IV Fe next available / 4 doses IV Fe next available / 3 doses per phone encounter Start: 03-23-2024 End: 03-23-2024 ambulatory 03/23/2024 4:00 PM EDT Visit (SP) Office Hematology/Oncology [address] [place] [address] Beto Vivar MD [address] [place] [address] [place] [address] Dx: Gastric Carcinoma Hematology/Oncology Comment on above: Dx: Gastric Carcinom a Start: 03-23-2024 End: 06-22-2024 CIRCULATING TUMOR DNA GENOMIC ANALYSIS FOR SOLID TUMORSRESTRICTED TO ONCOLOGY [facility] Comment on above: Expected: 03/23/2024 , Expires: 06/22/2024 Start: 03-23-2024 End: 06-22-2024 Ferritin [Mass/volume] in Serum or Plasma [facility] Comment on above: Expected: 03/23/2024 , Expires: 06/22/2024 Start: 03-23-2024 End: 06-22-2024 Iron and Iron binding capacity panel - Serum or Plasma [facility] Work Phone: Comment on above: Expected: 03/23/2024 , Expires: 06/22/2024 Start: 03-23-2024 End: 06-22-2024 T4/FTI/T4U [facility] Comment on above: Expected: 03/23/2024 , Expires: 06/22/2024 Start: 03-23-2024 End: 06-22-2024 Thyrotropin [Units/volume] in Serum or Plasma [facility] Comment on above: Expected: 03/23/2024 , Expires: 06/22/2024 Start: 03-15-2024 Diabetic foot examination Diabetic F oot Exam [facility] Start: 2024 RSV Vaccine (1 - 1-d ose 60+ series) RSV Vaccine (1 - 1-dose 60+ series) [facility] Start: 12-01-2023 End: 12-01-2023 Patient encounter procedure 12/01/2023 4:00 PM EDT Office Visit [facility] Internal Medicine - Family Medicine [address] [place] [address] Anna Marie Monge, CABLE TELEVISION LINE TECHNICIAN-FLOOR CLERK [address] [place] [address] [facility] - [facility] Start: 09-06-2023 Behavioral Health Screening Behavioral Health Screening [facility] Start: 05-07-2023 Covid-19 Vaccine ( season) Covid-19 Vaccine ( season) [facility] Start: 05-07-2023 Influenza vaccination C [facility] Start: 11-11-2022 PNEUMOCOCCAL (2 - PCV) PNEUMOCOCCAL (2 - PCV) [facility] Start: 11-11-2022 Pneumococcal vaccination Pneum ococcal Vaccine (2 - PCV) [facility] Start: 09-06-2022 Depression Assessment Depression Ass essment [facility] Start: 06-19-2022 End: 08-19-2022 PROTEIN ELECTROPHORESIS SERUM W/INTERP PROTEIN ELECTROPHORESIS SERUM W/INTERP Lab Routine Anemia, normocytic normochromic Expected: 06/19/2022 (Approximate), Expires: 08/19/2022 [facility] Work Phone: Comment on above: Expected: 06/19/2022 (Approximate), Expires: 08/19/2022 Start: 06-12-2022 End: 08-12-2022 Thyrotropin [Units/volume] in Serum or Plasma TSH BLD Lab Routine Anemia, normocytic normochromic Expected: 06/12/2022 (Approximate), Expires: 08/12/2022 [facility] Work Phone: Comment on above: Expected: 06/12/2022 (Approximate), Expires: 08/12/2022 Start: 06-05-2022 End: 08-05-2022 Comprehensive metabolic 2000 panel - Serum or Plasma COMP METABOLIC PANEL Lab Routine Anemia, normocytic normochromic Expected: 06/05/2022 (Approximate), Expires: 08/05/2022 [facility] Work Phone: Comment on above: Expected: 06/05/2022 (Approximate), Expires: 08/05/2022 Start: 05-26-2022 End: 07-26-2022 CBC W Auto Differential panel - Blood CBC + DIFF Lab Routine Anemia, normocytic normochromic Expected: 05/26/2022, Expires: 07/26/2022 [facility] Work Phone: Comment on above: Expected: 05/26/2022 , Expires: 07/26/2022 Start: 05-26-2022 End: 07-26-2022 Comprehensive metabolic 2000 panel - Serum or Plasma COMP METABOLIC PANEL Lab Routine Anemia, normocytic normochromic Expected: 05/26/2022, Expires: 07/26/2022 [facility] Work Phone: Comment on above: Expected: 05/26/2022 , Expires: 07/26/2022 Start: 05-26-2022 End: 07-26-2022 Ferritin [Mass/volume] in Serum or Plasma FERRITIN BLD Lab Routine Anemia, normocytic normochromic Expected: 05/26/2022, Expires: 07/26/2022 [facility] Work Phone: Comment on above: Expected: 05/26/2022 , Expires: 07/26/2022 Start: 05-26-2022 End: 07-26-2022 Iron and Iron binding capacity panel - Serum or Plasma IRON + TIBC Lab Routine Anemia, normocytic normochromic Expected: 05/26/2022, Expires: 07/26/2022 [facility] Work Phone: Comment on above: Expected: 05/26/2022 , Expires: 07/26/2022 Start: 05-22-2022 End: 07-22-2022 Cobalamin (Vitamin B12) [Mass/volume] in Serum or Plasma [facility] Work Phone: Comment on above: Expected: 05/22/2022 , Expires: 07/22/2022 Start: 05-22-2022 End: 05-22-2023 Ferritin [Mass/volume] in Serum or Plasma [facility] Work Phone: Comment on above: Expected: 05/22/2022 , Expires: 05/22/2023 Start: 05-22-2022 End: 07-22-2022 Folate [Mass/volume] in Serum or Plasma [facility] Work Phone: Comment on above: Expected: 05/22/2022 , Expires: 07/22/2022 Start: 05-22-2022 End: 05-22-2023 Iron and Iron binding capacity panel - Serum or Plasma [facility] Work Phone: Comment on above: Expected: 05/22/2022 , Expires: 05/22/2023 Start: 05-22-2022 End: 07-22-2022 MONOCLONAL PROTEIN, SERUM (BLOOD) [facility] Work Phone: Comment on above: Expected: 05/22/2022 , Expires: 07/22/2022 Start: 05-22-2022 End: 07-22-2022 PROTEIN ELECT RND UR W/INTERP [facility] Work Phone: Comment on above: Expected: 05/22/2022 , Expires: 07/22/2022 Start: 05-07-2022 Influenza vaccination INFLUENZA (#1) [facility] Start: 09-06-2021 DEPRESSION ASSESSMENT DEPRESSION ASS ESSMENT [facility] Start: 06-04-2017 Adult depression screening assessment DEPRESSION SCREENING [facility] Start: 01-09-2014 Administration of varicella zoster vaccine Zoster (Shingles) [facility] 2[facility] Start: 01-09-2014 SHINGRIX VACCINE (1 of 2) FERGUSON GRIX VACCINE (1 of 2) [facility] Start: 01-09-2009 COLOGUARD (FIT-DNA) COLOGUARD (FIT-D NA) [facility] Start: 01-09-2009 Colonoscopy COLONOSCOPY [facility] Start: 01-09-2009 COLORECTAL CANCER SCREENING COLORECTAL CANCER SCREENING [facility] Start: 01-09-[address] COLONOGRAPHY [facility] Start: 01-09-2009 DIABETES SCREEN DIABETES SCREEN [facility] Start: 01-09-2009 Diabetes Screening Diabetes Screenin g [facility] Start: 01-09-2009 FECAL OCCULT BLOOD FECAL OCCULT BLOO D [facility] Start: 01-09-2009 Lipid 1996 panel - S elissa or Plasma Lipid Screening [facility] Start: 01-09-2009 Lipid panel Lipid Screening [facility] Start: 01-09-2009 LIPID SCREEN LIPID SCREEN [facility] Start: 01-09-2009 Screening for malign ant neoplasm of colon [facility] Start: 01-09-2009 SIGMOIDOSCOPY SIGMOIDOSCOPY [facility] Start: 2004 Mammography [facility] Start: 01-09-1994 HPV TESTING HPV TESTING [facility] Start: 01-09-1994 Zoledronic acid therapy ALPHA- 1 ANTITRYPSIN DEFICIENCY SCREENING [facility] Start: 01-09-1985 PAP TESTING PAP TESTING [facility] Start: 01-09-1985 Screening for malign ant neoplasm of cervix [facility] Start: 01-09-1983 DTaP,Tdap and Td Vac cines (1 - Tdap) DTaP,Tdap and Td Vaccines (1 - Tdap) [facility] Start: 01-09-1983 Shingrix Vaccine (1 of 2) Ferguson grix Vaccine (1 of 2) [facility] Start: 01-09-1983 Urine microalbumin profile [facility] Start: 01-09-1982 ANNUAL PCP TEAM APPLICATION TECHNICIAN ALLEN DISEASE VISIT ANNUAL PCP TEAM CHRONIC DISEASE VISIT [facility] Start: 01-09-1982 Depression Screening Depression Scre ening [facility] Start: 01-09-1982 HEPATITIS C SCREENING HEPATITIS C [facility] Start: 01-09-1982 Hepatitis C screening Hepatitis C [facility] Start: 01-09-1982 HIV SCREENING HIV SCREENING [facility] Start: 01-09-1982 HIV screening HIV Screening [facility] Start: 01-09-1970 PNEUMOCOCCAL (1 - PCV) PNEUMOCOCCAL (1 - PCV) [facility] Start: 1964 COVID-19 VACCINE (#1) COVID-19 VACCI NE (#1) [facility] Start: 1964 HEPATITIS B (1 of 3 - 3-dose series) HEPATITIS B (1 of 3 - 3-dose series) [facility] End: 11-16-2024 C difficile by PCR C difficile by PCR Lab Routine Diarrhea of presumed infectious origin 1 Occurrences starting 11/17/2023 until 11/16/2024 [facility] Comment on above: 1 Occurrences starti ng 11/17/2023 until 11/16/2024 End: 04-22-2025 CT Abdomen W contrast IV CT ABDOMEN W IVCON Radiology Routine 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) 1 Occurrences starting 03/23/2024 until 04/22/2025 [facility] Comment on above: 1 Occurrences starti ng 03/23/2024 until 04/22/2025 End: 04-22-2025 CT Chest W contrast IV CT CHEST W IVCON Radiology Routine 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) 1 Occurrences starting 03/23/2024 until 04/22/2025 [facility] Comment on above: 1 Occurrences starti ng 03/23/2024 until 04/22/2025 End: 11-16-2024 GI Panel(stool pathogen panel) GI Panel(stool pathogen panel) Lab Routine Diarrhea of presumed infectious origin 1 Occurrences starting 11/17/2023 until 11/16/2024 [facility] Work Phone: Comment on above: 1 Occurrences starti ng 11/17/2023 until 11/16/2024 IR PORTOCATH PLACEMENT IR PORTOC ATH PLACEMENT Radiology Routine Ordered: 04/18/2024 [facility] Work Phone: Comment on above: Ordered: 04/18/2024 IR PORTOCATH PLACEMENT IR PORTOC ATH PLACEMENT Radiology Routine Malignant neoplasm of cardia (HCC) Ordered: 04/20/2024 [facility] Work Phone: Comment on above: Ordered: 04/20/2024 PAIN PANEL, UR QUANT PAIN PANEL, UR QUANT Lab Routine 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) Opioid contract exists 04/14/2024 9:31 AM EDT [facility] End: 04-22-2025 PET+CT Guidance for localization of tumor of Skull base to mid-thigh-- W 18F-FDG IV NM PET/CT SKULL-THIGH INITIAL Radiology Routine 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) 1 Occurrences starting 03/23/2024 until 04/22/2025 [facility] Comment on above: 1 Occurrences starti ng 03/23/2024 until 04/22/2025 SPECIMEN VALIDITY, URINE SPECIME N VALIDITY, URINE Lab Routine 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) Opioid contract exists 04/14/2024 9:31 AM EDT [facility] Immunizations Immunization Date Immunization Notes Care Provider Mary mack 06-13-2022 Influenza, injectabl e, Madin Serene Canine Kidney, preservative free, quadrivalent Kostas Furitalia DO Work Phone: [facility] 06-13-2022 Pneumococcal Conjuga te 20-valent Kostas Furlong DO Work Phone: [facility] 06-13-2022 influenza virus vaccine, unspecified formulation Kostas Furlong DO Work Phone: [facility] 11-11-2021 Influenza, injectabl e, Madin Serene Canine Kidney, preservative free, quadrivalent Ignacio Sam MD Work Phone: [facility] 11-11-2021 pneumococcal polysaccharide vaccine, 23 valent Ignacio Sam MD Work Phone: [facility] 11-11-2021 influenza virus vaccine, unspecified formulation Ct (I-Stat) [facility] 09-06-2020 influenza, seasonal, injectable Ignacio Sam MD Work Phone: [facility] 07-21-2020 influenza, seasonal, injectable Kostas Furlong DO Work Phone: [facility] 07-02-2020 influenza, injectabl e, quadrivalent, contains preservative Kostas Furlong DO Work Phone: [facility] 06-14-2019 influenza, injectabl e, quadrivalent, contains preservative Kostas Furlong DO Work Phone: [facility] 06-14-2019 pneumococcal polysaccharide vaccine, 23 valent Kostas Furlong DO Work Phone: [facility] 06-28-2017 Influenza, injectabl e, Madin Serene Canine Kidney, preservative free, quadrivalent Ignacio Sam MD Work Phone: [facility] 07-17-2015 influenza, seasonal, injectable, preservative free Ignacio Sam MD Work Phone: [facility] 07-27-2014 influenza, seasonal, injectable, preservative free Ignacio Sam MD Work Phone: [facility] 06-06-2014 influenza, injectabl e, quadrivalent, preservative free Brynn Agr Other [employer] Other 07-11-2013 influenza virus vaccine, whole virus Kostas Steward DO Work Phone: [facility] Payers Date Payer Category Payer Self-pay 2013 Medicaid [id number] 1964 Unknown [id number] 2.16.84 0.1.388677.3.579.2.593 1964 Unknown [id number] 2.16.84 0.1.383298.3.579.2.593 1964 Unknown [id number] 2.16.84 0.1.381913.3.579.2.593 1964 Unknown [id number] 2.16.84 0.1.586851.3.579.2.593 1964 Unknown [id number] 2.16.84 0.1.431704.3.579.2.593 1964 Unknown [id number] 2.16.84 0.1.038532.3.579.2.593 1964 Unknown [id number] 2.16.84 0.1.889181.3.579.2.593 1964 Unknown [id number] 2.16.84 0.1.807281.3.579.2.593 1964 Unknown [id number] 2.16.84 0.1.502532.3.579.2.593 1964 Unknown [id number] 2.16.84 0.1.350687.3.579.2.593 1964 Unknown [id number] 2.16.84 0.1.770090.3.579.2.593 1964 Unknown [id number] 2.16.84 0.1.652815.3.579.2.593 1964 Unknown [id number] 2.16.84 0.1.723557.3.579.2.593 1964 Unknown [id number] 2.16.84 0.1.468396.3.579.2.593 1964 Unknown [id number] 2.16.8 40.1.446187.3.579.2.1285 1964 Unknown [id number] 2.16.8 40.1.844548.3.579.2.1285 1964 Unknown [id number] 2.16.8 40.1.547422.3.579.2.1285 1964 Unknown [id number] 2.16.8 40.1.069430.3.579.2.1285 1964 Unknown [id number] 2.16.8 40.1.459749.3.579.2.1285 1964 Unknown [id number] 2.16.8 40.1.428587.3.579.2.1285 1964 Unknown [id number] 2.16.8 40.1.520137.3.579.2.1285 1964 Unknown [id number] 2.16.8 40.1.789450.3.579.2.1285 1964 Unknown [id number] 2.16.8 40.1.354842.3.579.2.1285 1964 Unknown [id number] 2.16.8 40.1.792268.3.579.2.1285 1964 Unknown [id number] 2.16.8 40.1.169517.3.579.2.1285 1964 Unknown [id number] 2.16.8 40.1.040553.3.579.2.1285 1964 Unknown [id number] 2.16.8 40.1.284008.3.579.2.1285 1964 Unknown [id number] 2.16.8 40.1.943957.3.579.2.1285 1964 Unknown [id number] 2.16.8 40.1.380713.3.579.2.1285 1964 Unknown [id number] 2.16.8 40.1.982228.3.579.2.1285 1964 Unknown [id number] 2.16.8 40.1.313118.3.579.2.1285 1964 Unknown [id number] 2.16.8 40.1.273598.3.579.2.1285 1964 Unknown [id number] 2.16.8 40.1.216937.3.579.2.1285 1964 Unknown [id number] 2.16.840 .1.684867.3.579.2.1285 1964 Unknown [id number] 2.16.8 40.1.273333.3.579.2.1285 1964 Unknown [id number] 2.16.8 40.1.427046.3.579.2.1285 1964 Unknown [id number] 2.16.8 40.1.983617.3.579.2.1285 1964 Unknown [id number] 2.16.840 .1.747469.3.579.2.1286 1959 Self-pay [id number] 1959 Unknown [id number] 2.1 6.840.1.798140.19 1959 Unknown [id number] Unknown [id number] 2.16.8 40.1.951835.3.579.2.531 Social History Date Type Detail Facility Unknown if ever smoked [employer] Other Start: 12-03-2020 End: 04-18-2024 Sex Assigned At [email or web address] Other Start: 10-26-2013 End: 05-22-2022 Tobacco smoking status NHIS Never smoked tobacco [facility] Start: 10-26-2013 End: 05-22-2022 Tobacco use and exposure Smokeless tobacco non-user [facility] Start: 05-21-2022 End: 04-21-2024 Alcohol intake Current non-drinker of alcohol (finding) [facility] Start: 1965 Sex Assigned At Not on file [facility] History of tobacco use Passive smoker [facility] Start: 12-30-2020 End: 05-25-2022 Exposure to SARS-CoV-2 (event) Not sure [facility] Start: 12-03-2020 End: 04-18-2024 History of Social function [facility] National Score (1-10 0), lower number is lower risk Not on file [facility] Start: 08-23-2023 Alcohol intake Ex-drinker (finding) [email or web address] Has the [employer], or water EDAN threatened to shut off services in your home in past 12Mo No [facility] [facility] Are you now , , , , never or living with a partner? [facility] How often to you hav e a drink containing alcohol? Never [employer] [facility] How hard is it for y ou to pay for the very basics like food, housing, medical care, and heating Hard [employer] [facility] Do you feel stress - tense, restless, nervous, or anxious, or unable to sleep at night because your mind is troubled all the time - these days [OSQ] Rather much [employer] [facility] Medical Equipment Procedure Code Equipment Code Equipment Origin al Text Equipment Identifier Dates Port Powerport I sp Groshong 8fr Titanium Implantable Infusion Custom - [id number] Start: 04-25-2024 Clinical Notes 06-02-2021 to 04-28-2024 Telephone Encounter - Lillie Richter APRN.[facility] - 04/28/2024 2:39 PM EDTTelephone Encounter - Lillie Richter APRN.[facility] - 04/28/2024 2:39 PM Beto Almaraz MD - 04/17/2024 9:55 PM EDT Note Date & Type Note Facility 04-28-2024 Telephone encounter Note Refilled for 05/02/24 Per oarrs Filled a 15 day rx on 04/18/24 [facility] 04-28-2024 Miscellaneous Notes Refilled for 05/02/24 Per oarrs Filled a 15 day rx on 04/18/24 Patient phones requesting refills as follows: Requested Prescriptions Pending Prescriptions Disp Refills HYDROcodone-Acetaminophen (NORCO) 10-325 mg per tablet 60 tablet 0 Sig: Take 1 tablet by mouth every 6 hours as needed for pain for up to 15 days. Please review and advise. Carmen Henson RN Kaya Schilling is calling today regarding Refill Request. Patient has been identified by name and birthdate. Requesting delivery method: call/escript to: VANIA Lora Additional Concern: N/A Requesting response back: N/A, no action needed [phone] (home) Nj Perkins April 28, 2024 documented in this encounter [facility] 04-28-2024 Telephone encounter Note Patient phones requesting refills as follows: Requested Prescriptions Pending Prescriptions Disp Refills HYDROcodone-Acetaminophen (NORCO) 10-325 mg per tablet 60 tablet 0 Sig: Take 1 tablet by mouth every 6 hours as needed for pain for up to 15 days. Please review and advise. Carmen Henson RN [facility] 04-28-2024 Telephone encounter Note Kaya Schilling is calling today regarding Refill Request. Patient has been identified by name and birthdate. Requesting delivery method: call/escript to: VANIA Lora Additional Concern: N/A Requesting response back: N/A, no action needed [phone] (home) Nj Perkins April 28, 2024 [facility] 04-27-2024 Telephone encounter Note Cxed appointment. [facility] 04-27-2024 Miscellaneous Notes Cxed appointment. Voicemail message received from an unidentified caller. Purpose of message is to cancel tomorrow's education appointment. States that Kaya is refusing to go. Per caller, the pt states, No one can make me go. Caller did not leave a return phone number. Clerical: Please cancel tomorrow's education appointment. Brea Villagomez RN Call placed to pt to discuss treatment plans and goals of care. No answer. Voicemail is full and not accepting messages. Call placed to home number. No answer. Message left requesting call back. Brea Villagomez RN Call placed to Issa to arrange for education per Kaya's request. Issa states she is NOT her transport and she's just a friend and works 12 hour shifts and Kaya can not rely on her. Issa states Kaya is capable of bringing herself to the appointments and last she knew, patient was refusing chemo . Issa states she will bring her to education on Wednesday but can not accommodate her appointment scheduled for Wednesday. Roberta Vaughan I spoke w/ patient last night around 5 pm to get her rescheduled. During conversation, patient mentioned she did get her port placed and she's resting. Told patient I was calling to reschedule her education appointment that she missed on Wednesday and patient states she knew nothing about the appointment and is unaware that she is starting chemotherapy. She proceeded to say she knew nothing about the appointments -- and never is informed about her previous appointments she's had here -- Patient then calls a friend screaming saying someone from [facility] is calling me and I'm getting really upset and this is urgent and I need you to call me back randolph . Patient states she doesn't understand anything, needs help, and also mentioned hospice. Advised patient I would get her connected with our Tactical Debriefer Jackie and patient proceeded to say Jackie has been mentioned to her several times but she's never been able to connect with her. She asked that I call her friend, Issa (who brought her to her port placement yesterday) and is her way of transportation right now. This friend was not listed under an Emergency Contact for her but patient gives the OK to list her. Told patient I was hanging up the phone and will be in contact with Issa at a later time. Roberta Vaughan Pt did not show for her education appointment today. Call placed to pt for follow up. No answer @ home number. Unable to leave a message. No answer at mobile number. Voicemail is full and not accepting messages. Brea Villagomez, RN documented in this encounter [facility] 04-27-2024 Telephone encounter Note Voicemail message received from an unidentified caller. Purpose of message is to cancel tomorrow's education appointment. States that Kaya is refusing to go. Per caller, the pt states, No one can make me go. Caller did not leave a return phone number. Clerical: Please cancel tomorrow's education appointment. Brea Villagomez RN [facility] Work Phone: 04-26-2024 Telephone encounter Note Returning patients call regarding post op care from port placement. No answer. Left message on home phone. Called mobile, no answer, and unable to leave message due to a full mailbox. [facility] 04-26-2024 Miscellaneous Notes Returning patients call regarding post op care from port placement. No answer. Left message on home phone. Called mobile, no answer, and unable to leave message due to a full mailbox. documented in this encounter [facility] 04-26-2024 Telephone encounter Note Call placed to pt to discuss treatment plans and goals of care. No answer. Voicemail is full and not accepting messages. Call placed to home number. No answer. Message left requesting call back. Brea Villagomez RN [facility] 04-26-2024 Telephone encounter Note Call placed to Issa to arrange for education per Kaya's request. Issa states she is NOT her transport and she's just a friend and works 12 hour shifts and Kaya can not rely on her. Issa states Kaya is capable of bringing herself to the appointments and last she knew, patient was refusing chemo . Issa states she will bring her to education on Wednesday but can not accommodate her appointment scheduled for Wednesday. Roberta Vaughan [facility] 04-26-2024 Telephone encounter Note [facility] in Pathology notified. Brea Villagomez RN [facility] Work Phone: 04-26-2024 Miscellaneous Notes [facility] in Pathology notified. Brea Villagomez RN All of them please. Based on insurance we cannot predict which agent they will allow. [facility] received our request for PD-L1 testing. Requests that you specify which PD-L1 you want. Pembrolizumab, Nivolumab, Atezolizumab...All of them? Brea Villagomez RN documented in this encounter [facility] 04-26-2024 Telephone encounter Note All of them please. Based on insurance we cannot predict which agent they will allow. [facility] 04-26-2024 Telephone encounter Note [facility] received our request for PD-L1 testing. Requests that you specify which PD-L1 you want. Pembrolizumab, Nivolumab, Atezolizumab...All of them? Brea Villagomez RN [facility] 04-26-2024 Telephone encounter Note I spoke w/ patient last night around 5 pm to get her rescheduled. During conversation, patient mentioned she did get her port placed and she's resting. Told patient I was calling to reschedule her education appointment that she missed on Wednesday and patient states she knew nothing about the appointment and is unaware that she is starting chemotherapy. She proceeded to say she knew nothing about the appointments -- and never is informed about her previous appointments she's had here -- Patient then calls a friend screaming saying someone from [facility] is calling me and I'm getting really upset and this is urgent and I need you to call me back randolph . Patient states she doesn't understand anything, needs help, and also mentioned hospice. Advised patient I would get her connected with our Tactical Debriefer Jackie and patient proceeded to say Jackie has been mentioned to her several times but she's never been able to connect with her. She asked that I call her friend, Issa (who brought her to her port placement yesterday) and is her way of transportation right now. This friend was not listed under an Emergency Contact for her but patient gives the OK to list her. Told patient I was hanging up the phone and will be in contact with Issa at a later time. Roberta Vaughan T [facility] 04-26-2024 Telephone encounter Note Collaborated with Ann Richter CNP. She will reach out to patient psychiatric provider and PCP regarding patient's unstable mental status. Plan will also be for Ann WESLEY to present patient at our [facility] meeting. April Frye RN April 26, 2024 8:42 AM [facility] 04-26-2024 Miscellaneous Notes Collaborated with Ann Richter CNP. She will reach out to patient psychiatric provider and PCP regarding patient's unstable mental status. Plan will also be for Ann WESLEY to present patient at our [facility] meeting. April Frye RN April 26, 2024 8:42 AM Palliative Medicine Care Coordination Follow up Phone Call Patient calling in our Triage crying and yelling about having a port placed and now with abdominal pain. Patient transferred to this nurse crying and moaning continuously saying she had her port placed and now having excruciating abdominal pain. This nurse unable to speak with patient due to her continued crying and moaning. Advised patient she needs to call 911 or go the the near ED. Patient continue to cry and moan loudly then hung up the phone on this nurse. Ann, I feel patient is mentally unstable and worsening. Did you want to reach out to her Psych team and PCP to come up with a plan for her? April Frye RN April 26, 2024 8:23 AM documented in this encounter [facility] 04-26-2024 Telephone encounter Note Palliative Medicine Care Coordination Follow up Phone Call Patient calling in our Triage crying and yelling about having a port placed and now with abdominal pain. Patient transferred to this nurse crying and moaning continuously saying she had her port placed and now having excruciating abdominal pain. This nurse unable to speak with patient due to her continued crying and moaning. Advised patient she needs to call 911 or go the the near ED. Patient continue to cry and moan loudly then hung up the phone on this nurse. Ann, I feel patient is mentally unstable and worsening. Did you want to reach out to her Psych team and PCP to come up with a plan for her? April Frye RN April 26, 2024 8:23 AM [facility] 04-24-2024 Telephone encounter Note Pt did not show for her education appointment today. Call placed to pt for follow up. No answer @ home number. Unable to leave a message. No answer at mobile number. Voicemail is full and not accepting messages. Brea Sessler, RN [facility] 04-24-2024 Telephone encounter Note Prior Authorization Documentation Prior authorization requested for the following medication: Medication: Butran 20 mcg TD patch Insurance Company Name: [employer] Phone number: [phone] Patient ID number: [id number] PCN OHRXPROD BIN [id number] Group ID N/A Harper [id number] Authorization approval #: [id number]. Dates of approval 04/24/2024 to 07/21/2024 Pharmacy Name: [facility] Pharm[facility] Telephone number: [phone] Pharmacy updated and patient had already picked up using discount care. Pharmacist will contact patient with any reimbursement OOP cost. Time Spent: 15 min. April Frye RN April 24, 2024 1:56 PM [facility] 04-24-2024 Miscellaneous Notes Prior Authorization Documentation Prior authorization requested for the following medication: Medication: Butran 20 mcg TD patch Insurance Company Name: [employer] Phone number: [phone] Patient ID number: [id number] PCN OHRXPROD BIN [id number] Group ID N/A Harper [id number] Authorization approval #: [id number]. Dates of approval 04/24/2024 to 07/21/2024 Pharmacy Name: [facility] Pharm[facility] Telephone number: [phone] Pharmacy updated and patient had already picked up using discount care. Pharmacist will contact patient with any reimbursement OOP cost. Time Spent: 15 min. April Frye RN April 24, 2024 1:56 PM documented in this encounter [facility] 04-24-2024 Telephone encounter Note I refilled Transdermal Butrans for 20 mcg/ hr patches, as we did tell her to double up the 10 mcg/hr patch she had for a toal of 20 mcg/hr No increase in [place] Please have scheduling get her an appt with me this week if possible, she may need to see me weekly as she is so symptomatic [facility] 04-24-2024 Miscellaneous Notes I refilled Transdermal Butrans for 20 mcg/ hr patches, as we did tell her to double up the 10 mcg/hr patch she had for a toal of 20 mcg/hr No increase in [place] Please have scheduling get her an appt with me this week if possible, she may need to see me weekly as she is so symptomatic Patient states she is out of the Butran patches and is asking for same day fill. Patient would like to know if she can have an increase in the [place] as she states that she was in excruciating pain over the weekend. Patient states she has been having swelling and pain and numbness in her ankles and yesterday was very bad. Patient would like to know if there is something that can be prescribed to help with the pain. Last ordered Butran 04/15/[address] Peres- Last ordered [place] 04/14/2024- Patient picked up 04/18 per pharmacy but now requesting a increase. TC to patient. Let her know she should have a prescription already she picked up so should have least 4 patches left. Patient reports having 24 tablets of her [place] left so does not need a refill and her pain is better but feels still needs and increase. Advised she follow up with her PCP for increase swelling that my be due to varicose. Confirmed with pharmacy: last picked up Butran patches on 04/15 for 4 patches. Last [place] prescription picked up 04/18/2024 for 60 tablets. Extensive discussion per Ann WESLEY last note that if her pain is not controlled with transdermal Butran that the safest for her is transitioning to Suboxone and this would be discussed with by Ann WESLEY her her next f/u. She does not want to take Suboxone. Confirmed with patient next f/u with Ann WESLEY on 05/12/2024 at 9:30 am at [facility] to discuss further the opioid agreement and Suboxone treatment. Patient wrote this down on her calendar. April Frye RN April 24, 2024 9:54 AM Kaya Schilling is calling today regarding Refill Request. Patient states she is out of the Butran patches and is asking for same day fill. Patient would like to know if she can have an increase in the [place] as she states that she was in excruciating pain over the weekend. Patient has been identified by name and birthdate. Requesting delivery method: call/escript to: VANIA Lora Additional Concern: Patient states she has been having swelling and pain and numbness in her ankles and yesterday was very bad. Patient would like to know if there is something that can be prescribed to help with the pain. Requesting response back: N/A, no action needed [phone] (home) Nj Perkins April 24, 2024 documented in this encounter [facility] 04-24-2024 Telephone encounter Note Pt called regarding upcoming port placement. Patient requesting information on what types of infusions/scans that the port may be used for. Explained that the port is not just for chemotherapy, but may also be used for infusions as well as scans in lieu of starting an IV. Pt verbalized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 Vaughan [facility] 04-18-2024 Telephone encounter Note Refer to Deven Nicolas for Matty Vaughan [facility] 04-17-2024 Note HNO ID: [id number] Author: BETO VIVAR MD Service: ? Author Type: Physician Type: Progress Notes Filed: 04/20/2024 07:48 Note Text: PATIENT NAME: Kaya Schilling DATE: 04/18/2024 PRIMARY CARE PHYSICIAN: Kostas Steward, OTHER PHYSICIANS: Dr. Cong Montano, Dr. Ramires (Psych in [place]) Portions of this encounter note have been copied from my note from 03/23/2024 and has been updated where appropriate, and reflect my current medical decision making from today. CC: This is a 59 year old female with recently diagnosed metastatic gastric cancer, seen for scheduled follow-up. INTERIM HISTORY: Since the patient's initial visit here she underwent further staging with a PET scan and repeat CT scans. She was found to have extensive progressive disease involving her stomach, widespread malignant adenopathy, and suspected bone metastases. Labs obtained at the patient's initial visit here were significant for critically low B12 level plus iron deficiency. Since then she has received multiple B12 injections plus IV iron. Overall she feels little better. Her main complaint at this time is severe abdominal pain. She was recently seen by [facility] palliative medicine, and is on new medications for pain control. Throughout this time she has had no evidence of GI bleeding. No significant nausea vomiting. However, her appetite is poor and she has lost a great deal of weight. MEDICATIONS: Current Outpatient Medications Medication Sig buprenorphine (BUTRANS) 10 mcg/hour Apply 1 Patch as directed one time a week for 30 days. promethazine (PHENERGAN) 25 mg tablet Take 1 tablet by mouth every 6 hours as needed for nausea/vomiting. linaCLOtide (LINZESS) 290 mcg capsule Take 1 capsule by mouth once daily. OLANZapine (ZYPREXA) 10 mg tablet Take 1 tablet by mouth daily at bedtime. naloxone 4 mg/actuation nasal spray (NARCAN) Use 1 spray in one nostril as needed for overdose. May repeat every 2 to 3 min in alternating nostrils until medical assistance is available HYDROcodone-Acetaminophen (NORCO) 10-325 mg per tablet Take 1 tablet by mouth every 6 hours as needed for pain for up to 15 days. apixaban (ELIQUIS) 5 mg tab(s) Take 10 mg by mouth as directed. polyethylene glycol 3350 17 gram/dose powder Take 17 g by mouth. zolpidem (AMBIEN) 5 mg tablet TAKE ONE TABLET BY MOUTH DAILY AT BEDTIME NEEDED FOR SLEEP lithium carbonate (ESKALITH) 300 mg capsule TAKE ONE TABLET BY MOUTH IN THE MORNING AND TWO TABLETS BY MOUTH IN THE EVENING levothyroxine (SYNTHROID) 100 mcg tablet Take 100 mcg by mouth once daily. glipiZIDE (GLUCOTROL XL) 10mg 24 hr tablet Take 10 mg by mouth once daily. losartan (COZAAR) 100 mg tablet Take 100 mg by mouth once daily. montelukast (SINGULAIR) 10 mg tablet Take 10 mg by mouth once daily. metFORMIN (GLUCOPHAGE) 1,000 mg tablet Take 1,000 mg by mouth twice daily. levomilnacipran ER (FETZIMA ER) 40 mg capsule Take by mouth once daily. ALPRAZOLAM 2 mg tablet Take 2 mg by mouth three times daily as needed. Indications: Anxiety No current facility-administered medications for this visit. ALLERGIES: ALLERGIES Allergen Reactions Percocet [Oxycodone* GI Upset Stadol [Butorphanol* Vomiting incoherent PAST MEDICAL HISTORY: PAST MEDICAL HISTORY No date: Acute pulmonary embolism without acute cor pulmonale, unspecified pulmonary embolism type ([facility]) No date: Anemia No date: Arthritis No date: Bipolar 1 disorder ([facility]) No date: Broken jaw ([facility]) Comment: no surgery No date: COPD (chronic obstructive pulmonary disease) ([facility]) No date: Diabetes mellitus (adult onset) ([facility]) No date: Gastric carcinoma ([facility]) No date: History of broken nose Comment: had septoplasty No date: Manic depression ([facility]) Comment: Dr. Rees No date: Midline low back pain without sciatica, unspecified chronicity No date: Neck pain No date: Pneumonia No date: PTSD (post-traumatic stress disorder) No date: Scoliosis No date: Thyroid disease No date: Unintended weight loss PAST SURGICAL HISTORY: PAST SURGICAL HISTORY No date: BLADDER SURGERY HX Comment: mesh sling No date: COLONOSCOPY Comment: w/EGD AND biopsy of stomach mass No date: EXCIS BARTHOLIN GLAND/CYST No date: NOSE SURGERY HX Comment: septum rconstruction No date: REPAIR RECTOCELE SEPARATE PROCEDURE No date: THYROID SURGERY HX Comment: biopsy done no CA No date: TUBAL LIGATION HX FAMILY HISTORY: FAMILY HISTORY [...] Alcohol use: No Drug use: No COMPLETE REV (more content not included)... [facility] History of Present illness Narrative PATIENT NAME: Kaya Schilling DATE: 04/18/2024 PRIMARY CARE PHYSICIAN: Kostas Steward DO OTHER PHYSICIANS: Dr. Cong Montano, Dr. Ramires (Psych in [place]) Portions of this encounter note have been copied from my note from 03/23/2024 and has been updated where appropriate, and reflect my current medical decision making from today. CC: This is a 59 year old female with recently diagnosed metastatic gastric cancer, seen for scheduled follow-up. INTERIM HISTORY: Since the patient's initial visit here she underwent further staging with a PET scan and repeat CT scans. She was found to have extensive progressive disease involving her stomach, widespread malignant adenopathy, and suspected bone metastases. Labs obtained at the patient's initial visit here were significant for critically low B12 level plus iron deficiency. Since then she has received multiple B12 injections plus IV iron. Overall she feels little better. Her main complaint at this time is severe abdominal pain. She was recently seen by [facility] palliative medicine, and is on new medications for pain control. Throughout this time she has had no evidence of GI bleeding. No significant nausea vomiting. However, her appetite is poor and she has lost a great deal of weight. MEDICATIONS: Current Outpatient Medications Medication Sig buprenorphine (BUTRANS) 10 mcg/hour Apply 1 Patch as directed one time a week for 30 days. promethazine (PHENERGAN) 25 mg tablet Take 1 tablet by mouth every 6 hours as needed for nausea/vomiting. linaCLOtide (LINZESS) 290 mcg capsule Take 1 capsule by mouth once daily. OLANZapine (ZYPREXA) 10 mg tablet Take 1 tablet by mouth daily at bedtime. naloxone 4 mg/actuation nasal spray (NARCAN) Use 1 spray in one nostril as needed for overdose. May repeat every 2 to 3 min in alternating nostrils until medical assistance is available HYDROcodone-Acetaminophen (NORCO) 10-325 mg per tablet Take 1 tablet by mouth every 6 hours as needed for pain for up to 15 days. apixaban (ELIQUIS) 5 mg tab(s) Take 10 mg by mouth as directed. polyethylene glycol 3350 17 gram/dose powder Take 17 g by mouth. zolpidem (AMBIEN) 5 mg tablet TAKE ONE TABLET BY MOUTH DAILY AT BEDTIME NEEDED FOR SLEEP lithium carbonate (ESKALITH) 300 mg capsule TAKE ONE TABLET BY MOUTH IN THE MORNING AND TWO TABLETS BY MOUTH IN THE EVENING levothyroxine (SYNTHROID) 100 mcg tablet Take 100 mcg by mouth once daily. glipiZIDE (GLUCOTROL XL) 10mg 24 hr tablet Take 10 mg by mouth once daily. losartan (COZAAR) 100 mg tablet Take 100 mg by mouth once daily. montelukast (SINGULAIR) 10 mg tablet Take 10 mg by mouth once daily. metFORMIN (GLUCOPHAGE) 1,000 mg tablet Take 1,000 mg by mouth twice daily. levomilnacipran ER (FETZIMA ER) 40 mg capsule Take by mouth once daily. ALPRAZOLAM 2 mg tablet Take 2 mg by mouth three times daily as needed. Indications: Anxiety No current facility-administered medications for this visit. ALLERGIES: ALLERGIES Allergen Reactions Percocet [Oxycodone* GI Upset Stadol [Butorphanol* Vomiting incoherent PAST MEDICAL HISTORY: PAST MEDICAL HISTORY No date: Acute pulmonary embolism without acute cor pulmonale, unspecified pulmonary embolism type ([facility]) No date: Anemia No date: Arthritis No date: Bipolar 1 disorder ([facility]) No date: Broken jaw ([facility]) Comment: no surgery No date: COPD (chronic obstructive pulmonary disease) ([facility]) No date: Diabetes mellitus (adult onset) ([facility]) No date: Gastric carcinoma ([facility]) No date: History of broken nose Comment: had septoplasty No date: Manic depression ([facility]) Comment: Dr. Rees No date: Midline low [...] no CA No date: TUBAL LIGATION HX FAMILY HISTORY: FAMILY HISTORY [...] Drug use: No COMPLETE REVIEW OF SYSTEMS: As listed PHYSICAL EXAM: BP 160/77 Pulse 103 Temp 36.4 C (97.6 F) (Temporal) Resp 16 Ht 165.1 cm (5' 5 ) Wt 49.9 kg (110 lb 0.2 oz) LMP 05/28/2016 SpO2 99% BMI 18.31 kg/m ECOG 2 GENERAL EXAM: Well developed/well nourished; in no acute distress. SKIN: Negative for lesions, rashes, or ulcers on the upper and lower extremities and face. Negative for palpations/nodules, purpura, and ecchymosis. EENT: Negative for conjunctiva, mucosal pallor, JVD, LAP, thyromegaly, and glossitis. Supple & PERRL. Multiple left cervical and supraclavicular nodes are palpable. EXTREMITIES: Negative for cyanosis, clubbing, and crepitus. [...] tenderness, soft tissue swelling, and atrophy. PATHOLOGY: 03/23/2024 [id number] NGS analysis MSI high not detected. No actionable mutations. 03/02/2024 Cardia mass biopsy ([facility]) Invasive adenocarcinoma, intestinal type, low-grade HER2 2+ (equivocal), FISH negative. LABS: Hemoglobin (g/dL) Date Value 04/18/2024 8.1 03/11/2015 13.3 Hematocrit (%) Date Value 04/18/2024 25.3 03/11/2015 39.2 WBC (k/uL) Date Value 04/18/2024 5.78 03/11/2015 6.56 Platelet Count (k/uL) Date Value 04/18/2024 364 03/11/2015 464 RADIOLOGY/OTHER STUDIES: 04/06/2024 CT abdomen/pelvis IMPRESSION: 1. Since 11/18/2013, diffuse progression of [...] CT for findings related to the thorax. 04/06/2024 CT chest IMPRESSION: 1. Left supraclavicular lymphadenopathy, similar in [...] for findings related to the upper abdomen. 04/06/2024 PET scan IMPRESSION: HEAD/NECK: * Hypermetabolic left lower cervical/supraclavicular [...] T4 thoracic spine suspicious for osseous metastases. 02/13/2024 Chest CTA ([facility]) Acute pulmonary embolism involving segmental branches of the left upper lobe and interlobar and segmental branches of right middle and lower lobes. 2.6 x 5.6 cm enhancing intraluminal mass along the lesser curvature suspicious for gastric cancer Gastrohepatic ligament lymphadenopathy representing metastasis 11/19/2023 CT abdomen/pelvis ([facility]) Mild wall thickening of the colon is seen suggestive of mild colitis. Multiple enlarged retroperitoneal lymph nodes are seen with a nearly confluent appearance measuring up to 3 cm in transverse diameter. Multiple enlarged lymph nodes are also seen about the celiac axis measuring 2 cm. ASSESSMENT/PLAN: 1. Metastatic gastric cancer (HCC) - ICD9: 151.0, ICD10: C16.0 (primary diagnosis) The patient presented 02/13/2024 to [facility] emergency room for evaluation of left sided chest pain and abdominal pain, at which time a chest CTA revealed a gastric mass. EGD 03/02/2024 revealed a malignant tumor at the gastric cardia. Biopsy revealed adenocarcinoma consistent with gastric primary. Final pathology revealed HER2 negative, MMR intact. [id number] revealed no actionable mutations. Staging PET scan and repeat CT scans revealed extensive progressive disease involving her stomach, widespread malignant adenopathy, and suspected bone metastases. Options for further management were discussed at length with the patient and her friend. Clearly she has stage IV disease, and surgery +/- radiation is not indicated. Standard of care is palliative chemotherapy. After much discussion we have elected to treat with FOLFOX plus nivolumab. We will arrange for a port to be placed. The patient will return in 2 weeks to start treatment. 2. Pulmonary embolism (HCC) - ICD9: 415.19, ICD10: I26.99 Chest CTA obtained 02/13/2024 for evaluation of pain revealed multiple pulmonary emboli. Anticoagulation with Eliquis started at the time of diagnosis. Continue per PCP. 3. Type 2 diabetes mellitus (HCC) - ICD9: 250.00, ICD10: E11.9 Continue management per PCP. 4. Bipolar affective disorder - (HCC) - ICD9: 296.80, ICD10: F31.9 Continue management per PCP. 5. Acquired hypothyroidism - ICD9: 244.9, ICD10: E03.9 Continue management per PCP. While on immunotherapy her TFTs will be monitored closely, and Synthroid adjusted accordingly. 6. History of hepatitis C - ICD9: V12.09, ICD10: Z86.19 Diagnosed approximately 2004. Therapy per GI (Dr. Saha) with CR. Monitor LFTs closely. 7. Anemia - B12 deficiency and iron deficiency ICD9: 285.9, ICD10: D64.9 The patient has a long history of anemia, multifactorial etiology. Labs obtained March 2024 revealed severe B12 deficiency and moderate iron deficiency. The patient has been started on parenteral B12 replacement. Status post IV iron with Venofer x 3 completed 04/14/2024. For now the patient will receive B12 1 mg IM monthly. Will monitor iron stores and give additional IV iron as indicated. 8. Cancer related pain - ICD9: 338.3, ICD10: G89.3 The patient has a long history diffuse pain. Progressive abdominal pain since diagnosis of gastric cancer March 2024. The patient has been referred to [facility] palliative medicine for management. 9. Hypercalcemia of malignancy - ICD9: 275.42, ICD10: E83.52 Labs obtained 04/18/2024 revealed significant hypercalcemia, most likely secondary to metastatic disease. Will give IV fluids plus Aredia today. Monitor labs closely and give additional treatment as indicated. Beto Vivar MD CC: Dr. Cong Montnao documented in this encounter [facility] 04-17-2024 Telephone encounter Note Palliative Medicine Care Coordination Follow up Phone Call Patient identified by name and : Yes Spoke to: patient Nurse calling to follow up on provider medication recommendations. Discussed with Kaya that Ann WESLEY recommends applying a 2nd Butran patch to equal 20 mcg/hour and may take dulcolax [place] and Linzess until she has a bowel movement then discontinue. Patient verbalized understanding and will call when needing a refills. April Frye RN April 17, 2024 1:17 PM [facility] 04-17-2024 Miscellaneous Notes Palliative Medicine Care Coordination Follow up Phone Call Patient identified by name and : Yes Spoke to: patient Nurse calling to follow up on provider medication recommendations. Discussed with Kaya that Ann WESLEY recommends applying a 2nd Butran patch to equal 20 mcg/hour and may take dulcolax [place] and Linzess until she has a bowel movement then discontinue. Patient verbalized understanding and will call when needing a refills. April Frye RN April 17, 2024 1:[address] a second transdermal Butrans patch on for a total of 20 mcg/ hr She could use dulcolax [place] with Linzess until she has a movement then DC Care Coordination Triage Note [facility] Situation: Patient reports stomach pain that has not resolved despite the increase in her [place]. Background: Disease, current pertinent medications/treatments malignant neoplasm of cardia of stomach Assessment: Patient reports having pain usually in the morning. She reports starting the Patch on Wednesday. So far she Reports pain level 10/10 in the morning. Patient takes the [place] 10 mg pain reduces to a 7/10 and just takes the edge off. Still has nausea and takes phenergan. Has not picked up Olanzapine yet. Last BM Sunday 04/15. Current pain regimen and usage: Buprenorphine 10 mg, taking [place] 10/325 po Q6HR prn, taking 1 tablet 3x daily in the am, afternoon, and pm), advised to increase to 4 x daily as needed. Reports having 6 tablets left and has said she has not picked up her [place] ordered 04/14 and not due for a refill until tomorrow per pharmacy. Bowel regimen and usage: -Linzess daily, taking daily, Last took 04/12 . Last BM 04/15. Denies constipation. Advise to continue daily as recommended and hold if loose stools. Nausea/appetite: - Olanzapine 10 mg po at HS-has not picked up, will black pickler today. -phenergan 25 mg table, taking Q6H prn, took last night around 8:30 pm and it helped. Patient asking for an adjustment in her pain medications. Recommendations: Per Ann Richter CNP- to review, patient directed to ER if symptoms worsen. April Frye RN April 17, 2024 11:41 AM Kaya Schilling is calling today regarding pain that she is experiencing in her stomach. She states that has not been able to maintain a comfortable level. Patient is requesting a return call to discuss possible remedies for relief. Logan BARAJAS documented in this encounter [facility] 04-17-2024 Telephone encounter Note She can place a second transdermal Butrans patch on for a total of 20 mcg/ hr She could use dulcolax [place] with Linzess until she has a movement then DC [facility] 04-17-2024 Telephone encounter Note Care Coordination Triage Note [facility] Situation: Patient reports stomach pain that has not resolved despite the increase in her [place]. Background: Disease, current pertinent medications/treatments malignant neoplasm of cardia of stomach Assessment: Patient reports having pain usually in the morning. She reports starting the Patch on Wednesday. So far she Reports pain level 10/10 in the morning. Patient takes the [place] 10 mg pain reduces to a 7/10 and just takes the edge off. Still has nausea and takes phenergan. Has not picked up Olanzapine yet. Last BM Sunday 04/15. Current pain regimen and usage: Buprenorphine 10 mg, taking [place] 10/325 po Q6HR prn, taking 1 tablet 3x daily in the am, afternoon, and pm), advised to increase to 4 x daily as needed. Reports having 6 tablets left and has said she has not picked up her [place] ordered 04/14 and not due for a refill until tomorrow per pharmacy. Bowel regimen and usage: -Linzess daily, taking daily, Last took 04/12 . Last BM 04/15. Denies constipation. Advise to continue daily as recommended and hold if loose stools. Nausea/appetite: - Olanzapine 10 mg po at HS-has not picked up, will black pickler today. -phenergan 25 mg table, taking Q6H prn, took last night around 8:30 pm and it helped. Patient asking for an adjustment in her pain medications. Recommendations: Per Ann Richter CNP- to review, patient directed to ER if symptoms worsen. April Frye RN April 17, 2024 11:41 AM [facility] 04-17-2024 Telephone encounter Note Kaya Schilling is calling today regarding pain that she is experiencing in her stomach. She states that has not been able to maintain a comfortable level. Patient is requesting a return call to discuss possible remedies for relief. Logan BARAJAS [facility] 04-15-2024 Miscellaneous Notes Addended by: FABY PERES on: 04/15/2024 03:16 PM Modules accepted: Orders I received a page for the pt and spoke with her and caregiver, Fidelina, on the phone today. Briefly, she is a 59 yo female with gastric cancer, currently in the middle of treatment planning. She is followed by [facility] (Lillie Richter CNP) for pain management. Fidelina said that she needs a doctor to approve the script for buprenorphine TD 10 mcg/hr sent to [facility] in [place], [place] yesterday. I then spoke with the pharmacy staff ([phone]), who mentioned that this drug will need prior authorization approval from the pt's medical insurance. I told the staff and Fidelina that this can be accomplished by our team on Wednesday, and that for now, the patient can take [place] 10/325 1 tablet q6 hrs prn. Fidelina added that she will try to pay for buprenorphine [id number], and may need to call have it called in to another pharmacy. I gave her our contact information. Faby Peres MD, KRIS, [facility] Pager [phone] April 15, 2024 2:16 PM CC: Lillie Richter CNP [facility] Pool Addendum I spoke to Fidelina once again, who wanted buprenorphine TD 10 mcg/hr sent to another pharmacy ([facility] in [place], [place]). The following prescription(s) will be transmitted electronically to the patient's pharmacy of choice. Requested Prescriptions Signed Prescriptions Disp Refills buprenorphine (BUTRANS) 10 mcg/hour 4 Patch 0 Sig: Apply 1 Patch as directed one time a week for 30 days. Authorizing Provider: FABY PERES MD, FACP, [facility] Pager [phone] April 15, 2024 3:15 PM documented in this encounter [facility] 04-15-2024 Note Addended by: FABY PERES on: 04/15/2024 03:16 PM Modules accepted: Orders [facility] 04-15-2024 Telephone encounter Note I received a page for the pt and spoke with her and caregiver, Fidelina, on the phone today. Briefly, she is a 59 yo female with gastric cancer, currently in the middle of treatment planning. She is followed by [facility] (Lillie Richter CNP) for pain management. Fidelina said that she needs a doctor to approve the script for buprenorphine TD 10 mcg/hr sent to [facility] in [place], [place] yesterday. I then spoke with the pharmacy staff ([phone]), who mentioned that this drug will need prior authorization approval from the pt's medical insurance. I told the staff and Fidelina that this can be accomplished by our team on Wednesday, and that for now, the patient can take [place] 10/325 1 tablet q6 hrs prn. Fidelina added that she will try to pay for buprenorphine [id number], and may need to call have it called in to another pharmacy. I gave her our contact information. Faby Peres MD, FACP, [facility] Pager [phone] April 15, 2024 2:16 PM CC: Lillie Richter CNP [facility] Pool Addendum I spoke to Fidelina once again, who wanted buprenorphine TD 10 mcg/hr sent to another pharmacy ([facility] in [place], [place]). The following prescription(s) will be transmitted electronically to the patient's pharmacy of choice. Requested Prescriptions Signed Prescriptions Disp Refills buprenorphine (BUTRANS) 10 mcg/hour 4 Patch 0 Sig: Apply 1 Patch as directed one time a week for 30 days. Authorizing Provider: FABY PERES MD, FACP, [facility] Pager [phone] April 15, 2024 3:15 PM [facility] 04-14-2024 Note HNO ID: [id number] Author: JACKIE SILVERIO LSW Service: ? Author Type: Tactical Debriefer Type: Progress Notes Filed: 04/14/2024 16:24 Note Text: SOCIAL WORK FOLLOW UP NOTE: [facility] Date of service: 04/14/24 Kaya Schilling is being seen for a follow up social work visit. Today's visit includes: patient TOPICS ADDRESSED: ONS from the [facility] PLAN: Continue follow up as needed [...] will follow up as appropriate. CHUCHO [facility] 04-14-2024 History of Present illness Narrative SOCIAL WORK FOLLOW UP NOTE: [facility] Date of service: 04/14/24 Kaya Osunadary is being seen for a follow up social work visit. Today's visit includes: patient TOPICS ADDRESSED: ONS from the [facility] PLAN: Continue follow up as needed [...] appropriate. CHUCHO Francis documented in this encounter [facility] 04-14-2024 Note Education (NUTRSA) JUDIKAYA FREITAS ([id number]) 1965 F Date Time Provider Department 04/14/24 10:45 AM ERENDIRA AGUILLON Reason for Visit: Nutrition Telephone [2014] Primary Visit Diagnosis: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) [C16.0] Other Visit Diagnosis:Severe protein-calorie malnutrition (HCC) [E43] Order(s):CONSULT TO ONCOLOGY NUTRITION [3265262] Order #: [id number]: 1 During your visit today, we recorded the following information about you: Allergies As of Date: 04/14/2024 Noted Allergy Reaction PERCOCET (OXYCODONE-ACETAMINOPHEN) 5 8 - GI Upset STADOL (BUTORPHANOL TARTRATE) 10/26/2013 11 - Vomiting Comments: incoherent Date Reviewed: 04/14/2024 Reviewed by: Erendira Aguillon RD - Fully Assessed Prescriptions as of 04/14/2024 - promethazine (PHENERGAN) 25 mg tablet Take 1 tablet by mouth every 6 hours as needed for nausea/vomiting. - linaCLOtide (LINZESS) 290 mcg capsule Take 1 capsule by mouth once daily. - buprenorphine (BUTRANS) 10 mcg/hour Apply 1 Patch as directed one time a week for 30 days. - OLANZapine (ZYPREXA) 10 mg tablet Take 1 tablet by mouth daily at bedtime. - naloxone 4 mg/actuation nasal spray (NARCAN) Use 1 spray in one nostril as needed for overdose. May repeat every 2 to 3 min in alternating nostrils until medical assistance is available - HYDROcodone-Acetaminophen (NORCO) 10-325 mg per tablet Take 1 tablet by mouth every 6 hours as needed for pain for up to 15 days. - apixaban (ELIQUIS) 5 mg tab(s) Take 10 mg by mouth as directed. - polyethylene glycol 3350 17 gram/dose powder Take 17 g by mouth. - zolpidem (AMBIEN) 5 mg tablet TAKE ONE TABLET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 returns from vacation to discuss chemotherapy. Brea Villagomez RN T [facility] Work Phone: 04-07-2024 Telephone encounter Note [...] worsens would consider radiation to the area. [facility] 04-06-2024 Nurse Note Patient Identification confirmed: yes. Injection given and documented on NOV per provider order. Amirah Koch MA [facility] 04-06-2024 Telephone encounter Note Patient added to b12 today [facility] 04-06-2024 Note HNO ID: [id number] Author: BREA LOTT RT(R) Service: ? Author [...] PATIENT PRESENTS WITH AN IMPLANTABLE OR ATTACHED RACK CLEANER: No RADIOLOGY DEPARTMENT: CT; Exam(s) Completed: Abdomen and Chest PERIPHERAL IV DATA: Site assessment: Clean,Dry and Intact, Site disposition Discontinued SIGNED BY: RT Urszula(Christofer) April 06, 2024 1:34 PM [facility] 04-06-2024 Telephone encounter Note Patient came in today, her PCP has not called her back so she will come back here for her B12 if needed. Please advise as to what is needed to be scheduled. [facility] 04-06-2024 Note HNO ID: [id number] Author: BREA LOTT RT(R) Service: ? Author [...] 1315 PATIENT DISCHARGED TO: Ambulatory patient, left DC department area. A Diagnostic radioactive procedure has taken place, with no further precautions necessary other than routine body substance precautions. More information regarding radiation safety can be found using this link: [email or web address]% [email or web address] SIGNATURE: RT Urszula(R) PATIENT NAME: Kaya Schilling DATE: April 06, 2024 TIME: 1:33 PM PAGER/CONTACT #: [facility] 04-06-2024 Note HNO ID: [id number] Author: LOGAN PATEL RN Service: ? Author Type: Registered Nurse [...] DATE: April 06, 2024 TIME: 1:18 PM [facility] 04-03-2024 Telephone encounter Note Patient still waiting for PCP to call back regarding B12 [facility] 04-03-[address] - [...] day -will complete paperwork and send to [facility] for insurance determination -incorporate calorie/protein boosting techniques at meals/snacks -whole milk, full fat dairy, cream, butter/margarine, full fat jennings/dressing/condiments, oils, avocado, peanut butter, etc. documented in this encounter [facility] 04-03-2024 Note Education (NUTRSA) KAYA SCHILLING ([id number]) 1965 Date Time Provider Department 04/03/24 12:45 PM ERENDIRA AGUILLON Reason for Visit: Nutrition Telephone [2014] Primary [...] Encounter Status:Closed by ERENDIRA AGUILLON on 04/03/24 [facility] 04-03-2024 Note HNO ID: [id number] Author: ERENDIRA AGUILLON RD Service: ? Author Type: Registered Dietitian Type: Progress Notes Filed: 04/03/2024 13:41 Note Text: Oncology Nutrition Therapy Initial Assessment I have communicated my name and active licensure. The patient's identity and physical location were verified at the time of this visit. Either the patient or their legal goodwill representative has been informed of the risks [...] day -will complete paperwork and send to [facility] for insurance determination -incorporate calorie/protein boosting [...] Dosing Weight: 52.1 kg Estimated kilocalorie needs: 9305-5801 kilocalories determined by 35-40 kcal/kg Estimated protein needs: 63-78 grams determined by 1.2-1.5 g/kg Dosing weight Estimated fluid needs: ~5709-1361 milliliters based on 1 mL per kcal (unless otherwise indicated) Nutrition Focused Physical Exam: Unable to perform (more content not included)... [facility] 04-03-2024 History of Present illness Narrative Oncology Nutrition Therapy Initial Assessment I have communicated my name and active licensure. The patient's identity and physical location were verified at the time of this visit. Either the patient or their legal goodwill representative has been informed of the risks [...] day -will complete paperwork and send to [facility] for insurance determination -incorporate calorie/protein boosting [...] Dosing Weight: 52.1 kg Estimated kilocalorie needs: 5958-9400 kilocalories determined by 35-40 kcal/kg Estimated protein needs: 63-78 grams determined by 1.2-1.5 g/kg Dosing weight Estimated fluid needs: ~6047-7219 milliliters based on 1 mL per kcal [...] MS, RD, LD documented in this encounter [facility] 03-31-2024 Telephone encounter Note This pt needs another dose of B12 04/21/24 then monthly per result notes that BRBrittany sent me. Per my original message pt may wish to get at her PCP. She was to call to see if they were able to do this. Yvonne Echavarria RN [facility] 03-29-2024 Telephone encounter Note Results printed from Care Everywhere and placed in 's mail folder for review. Brea Villagomez RN [facility] Work Phone: 03-29-2024 Miscellaneous Notes Results printed from Care Everywhere and placed in 's mail folder for review. Brea Villagomez RN Per Minal @ [facility] Pathology, pt's HER2 FISH analysis is still pending. Brea Villagomez RN documented in this encounter [facility] 03-28-2024 Telephone encounter Note Pt called for I need stronger pain meds. 03/23/24 pt had spoke with BRM and pt was referred to PCP for management of pain medications, until follow up with pall med 04/14/24. Discussed with pt. She will call PCP, and was transferred to PSS to see if appt can be moved sooner. BRM: BRIAN Aranda RN [facility] 03-28-2024 Miscellaneous Notes Pt called for [...] BRIAN Aranda RN documented in this encounter [facility] 03-27-2024 Telephone encounter Note Cancelled 4th dose. Roberta Vaughan [facility] 03-27-2024 Telephone encounter Note 3 cycles should be adequate. [facility] 03-27-2024 Telephone encounter Note Patient is already scheduled. Per Dr's instructions, he wanted her scheduled for 4 doses. Should we discontinue the 4th dose? IV iron at [facility] weekly x 4 - 1st infusion in 1 week Roberta Vaughan [facility] 03-27-2024 Telephone encounter Note Patient notified and verbalized understanding. Pt to contact her PCP to see if they are able to give B12 injections on the days she is not here. Will let us know when we call back with her appoitnments if thay are able. PSS: Please schedule weekly Venofer x3 when approved. Pt will also need weekly B12 x4, then monthly ( will get when here for Venofer and will let us know when you call her if she wants the additional ones at PCP) . T [facility] 03-27-2024 Telephone encounter Note ----- Message from Beto Vivar MD sent at 03/27/2024 9:36 AM EDT ----- Please inform the patient that her B12 level is critically low, she should continue weekly B12 x 4 then monthly. Iron level moderately low. I would recommend weekly Venofer IV x 3 weeks. Please schedule to be started as soon as possible. [facility] 03-27-2024 Telephone encounter Note LOCAL PATIENT Received Fax from [facility] Kaya Schilling is being referred to Jeanne Mccormick M.D., Ph. D. by [address] [place] [address] Patient diagnosis/Reason for consult: Gastric Adenocarcinoma Referral triage process explained: No Patient will receive a call from Thoracic NPM after triage review with surgeon to discuss any additional testing and/or consults that will be scheduled. Pt will then receive a call from our scheduling office for scheduling. Please call pt at [phone]. Patient was informed consultation could be at [facility] or [facility] [place]: No Patient Registration: Registration complete/updated: yes Insurance card(s) scanned in [facility] with in the past year: Yes: Date: 03/23/24 Pt's MyChart is Pending. Ok to communicate to pt via [facility] not asked Medical Records: Records in [facility] (internal CC records): Yes Imaging in [facility] (internal CC records): Yes Care Everywhere - queried yes, downloaded Yes Linked Outside Organizations (list): [facility] OS Records Requested: no Date: N/A [...] Dirk Castano NPM for Triage Leatha Rodriguez, finance admin [facility] 03-24-2024 Telephone encounter Note Pt called the resolution rep service last night for pain. Called to discuss and pt VM full. Plan per BRBrittany OV 03/23/24 [place] PRN pain and pall med referral. Pt is schedule with Taniya Richter 04/14/24. Tena Aranda RN Yg Villagomez RN spoke with BRM and he did talk with pt last night. She was encouraged to see PCP, if needed for further pain control, until her scheduled new pt appt with pall med at our facility 04/14/24. Tena Aradna RN [facility] 03-24-2024 Miscellaneous Notes Pt called the resolution rep service last night for pain. Called to discuss and pt VM full. Plan per [place] OV 03/23/24 [place] PRN pain and pall med referral. Pt is schedule with Taniya Richter 04/14/24. Tena Aranda, RN Yg Villagomez RN spoke with BRM and he did talk with pt last night. She was encouraged to see PCP, if needed for further pain control, until her scheduled new pt appt with pall med at our facility 04/14/24. Tena Aranda RN documented in this encounter [facility] 03-23-2024 Nurse Note Patient Identification confirmed: yes. Injection given and documented on NOV per provider order. Amirah Koch MA [facility] 03-23-2024 Telephone encounter Note Per Minal @ [facility] Pathology, pt's HER2 FISH analysis is still pending. Brea Villagomez RN [facility] 03-22-2024 Note HNO ID: [id number] Author: BETO VIVAR MD Service: ? Author Type: Physician Type: Progress Notes Filed: 03/24/2024 09:52 Note Text: PATIENT NAME: Kaya Schilling DATE: 03/23/2024 PRIMARY CARE PHYSICIAN: Kostas Steward DO OTHER PHYSICIANS: Dr. Cong Montano, Dr. Ramires (Psych in [place]) HPI: This is a 59 year old female with recently diagnosed gastric cancer, referred for further management. The patient presented 02/13/2024 to [facility] emergency room for evaluation of left [...] upper quadrant and lower abdomen ., On [place] with relief. Not maarried. 2 children. Family [...] no surgery COPD (chronic obstructive pulmonary disease) ([facility]) Diabetes mellitus (adult onset) ([facility]) Gastric carcinoma ([facility]) History of broken nose had septoplasty Manic depression ([facility]) Dr. Rees Midline low back pain without [...] facial swelling, fever/chills (more content not included)... [facility] 03-22[facility] History of Present illness Narrative PATIENT NAME: Kaya Schilling DATE: 03/23/2024 PRIMARY CARE PHYSICIAN: Kostas Steward DO OTHER PHYSICIANS: Dr. Cong Montano, Dr. Ramires (Psych in [place]) HPI: This is a 59 year old female with recently diagnosed gastric cancer, referred for further management. The patient presented 02/13/2024 to [facility] emergency room for evaluation of left [...] upper quadrant and lower abdomen ., On [place] with relief. Not maarried. 2 children. Family [...] type (HCC) Anemia Arthritis Bipolar 1 disorder ([facility]) Broken jaw ([facility]) no surgery COPD (chronic obstructive pulmonary disease) (HCC) Diabetes mellitus (adult onset) ([facility]) Gastric carcinoma ([facility]) History of broken nose had septoplasty Manic depression ([facility]) Dr. Rees Midline low back pain without [...] and atrophy. PATHOLOGY: 03/02/2024 Cardia mass biopsy ([facility]) Invasive adenocarcinoma, intestinal type, low-grade HER2 2+ (equivocal), FISH pending LABS: Hemoglobin (g/dL) Date Value 03/23/2024 7.6 03/11/2015 13.3 Hematocrit (%) Date Value 03/23/2024 22.5 03/11/2015 39.2 WBC (k/uL) Date Value 03/23/2024 4.75 03/11/2015 6.56 Platelet Count (k/uL) Date Value 03/23/2024 247 03/11/2015 464 RADIOLOGY/OTHER STUDIES: 02/13/2024 Chest CTA ([facility]) Acute pulmonary embolism involving segmental branches of the left upper lobe and interlobar and segmental branches of right middle and lower lobes. 2.6 x 5.6 cm enhancing intraluminal mass along the lesser curvature suspicious for gastric cancer Gastrohepatic ligament lymphadenopathy representing metastasis 11/19/2023 CT abdomen/pelvis ([facility]) Mild wall thickening of the colon [...] (primary diagnosis) The patient presented 02/13/2024 to [facility] emergency room for evaluation of left [...] G89.3 Pain LUQ and lower abd. Continue [place] PRN. Pall med referral. Beto Vivar MD CC: Dr. Cong Montano documented in this encounter [facility] 12-06-2023 Nurse Note Patient Identification confirmed: yes. Injection given and documented on NOV per provider order. Amirah Koch MA documented in this encounter [facility] 12-06-2023 Nurse Note Patient Identification confirmed: yes. Injection given and documented on NOV per provider order. Amirah Koch MA documented in this encounter [facility] 11-17-2023 History of Present illness Narrative [address] [place] [address] Patient: Kaya Schilling Date of : 1965 [...] - FAMILY MEDICINE [address] [place] [address] Patient Location: Patient's home Video Visit Consent [...] that there are some limitations compared to [id number] evaluations. The patient consented to the presence of additional virtual and/or in-person participants. We elected to proceed. Problem List Items Addressed This Visit Endocrine Type 2 diabetes mellitus without complication, without long-term current use of insulin ([facility]) Hyperparathyroidism ([facility]) Other Visit Diagnoses Diarrhea of presumed infectious [...] Medical History: Diagnosis Date Bipolar 1 disorder ([facility]) Elevated parathyroid hormone Empty sella ([facility]) Female bladder prolapse Hepatitis C Hypercalcemia Hypothyroidism Manic depression ([facility]) Migraine Scoliosis Past Surgical History: Procedure Laterality [...] complication, without long-term current use of insulin ([facility]) Hyperparathyroidism ([facility]) Other orders - promethazine (PHENERGAN) 12.5 mg tablet; Take 1 tablet (12.5 mg total) by mouth every 8 (eight) hours as needed for nausea or vomiting for up to 5 days. Follow-up: Since her diarrhea symptoms have been persistent for the last week we will check stool pathogen panel and C diff. she agrees to go to [facility] for this. Risks of Phenergan including [...] to tolerate PO intake she should call [phone] 20min DAHLIA JANE APRN-CNP 11/20/23 0914 documented in this encounter [facility] 11-11-2023 Miscellaneous Notes Pt calls states she has that new virus called Norovirus. She is feeling better. Told her to try the brat diet documented in this encounter [facility] 11-11-2023 Telephone encounter Note Pt calls states she has that new virus called Norovirus. She is feeling better. Told her to try the brat diet [facility] 11-05-2023 Miscellaneous Notes Pt called and just wanted to let us know she is sick and I told her we are closed and please if drink plenty of water and if she gets worse please go to Local hospital to be checked documented in this encounter [facility] 11-05-2023 Telephone encounter Note Pt called and just wanted to let us know she is sick and I told her we are closed and please if drink plenty of water and if she gets worse please go to Local hospital to be checked [facility] 07-03-2022 Miscellaneous Notes per answering service, pt cx today rv and tx appointments due to being up all night sick will call back to reschedule. documented in this encounter [facility] 06-04-2022 Miscellaneous Notes Patient left a message on my voicemail today to get this appointment scheduled. Call placed to patient, no answer. Left message on voicemail to call back to reschedule. Roberta Vaughan Per Answering Service message patient called requested to cancel this appointment and stated she will call us back to reschedule. Hanna Perdomo Pss documented in this encounter [facility] 05-29-2022 Miscellaneous Notes Patient is listed on the First Time Treatment List for a non-oncology treatment. No psychosocial assessment is indicated. CHUCHO Francis documented in this encounter [facility] 05-28-2022 Miscellaneous Notes Called Amada Saad spoke with Luisa. She states they have received this referral and their community development coordinator will be calling patient soon to schedule. Hanna Perdomo Pss Records faxed to [facility]. Appointments moved to next (06/04). Called pt, [...] evaluate as well,. documented in this encounter [facility] 05-26-2022 Miscellaneous Notes Patient scheduled to see you on 06/04/22 for follow up with labs. Please add lab orders. Thanks. Amirah Koch MA documented in this encounter [facility] 05-22-2022 History of Present illness Narrative PATIENT NAME: Kaya Schilling CLINIC NO.: [id number] ATTENDING PHYSICIAN: Ignacio Sam MD DATE OF [...] Diagnosis Date Anemia Arthritis Bipolar 1 disorder ([facility]) Broken jaw ([facility]) no surgery COPD (chronic obstructive pulmonary disease) ([facility]) Diabetes mellitus (adult onset) ([facility]) History of broken nose had septoplasty Manic depression ([facility]) Dr. Rees Neck pain Pneumonia PTSD (post-traumatic [...] 11/03/2013 1.21 1.00 - 4.00 k/uL Final [place]% Date Value Ref Range Status 11/03/2013 7.7 % Final Abs [place] Date Value Ref Range Status 11/03/2013 0.36 0.00 - 0.86 k/uL Final Abs Eosin Date Value Ref Range Status 11/03/2013 0.12 0.00 - 0.45 k/uL Final Baso% Date Value Ref Range Status 11/03/2013 0.9 % Final Abs Baso Date Value Ref Range Status 11/03/2013 0.04 0.00 - 0.10 k/uL Final Comment: Performed at [facility] , [address] [place] [id number] PATH: IMAGING: ASSESSMENT AND PLAN: Kaya Schilling [...] number below. Ignacio Sam M.D. Hematology/Medical Oncology [facility] [phone] CC: Kostas Steward DO I spent a total of 40 minutes on the date of the service which included preparing to see the patient, [id number] patient care, completing clinical documentation, obtaining and/or reviewing separately obtained history, performing a medically appropriate examination, counseling and educating the patient/family/caregiver, and ordering medications, tests, or procedures. documented in this encounter [facility] 04-23-2022 Evaluation note Encounter Date Diagnosis Assessment Notes Apr, Irritable bowel syndrome with constipation (ICD-10 - K58.1) [facility] Other 12-13-2021 Evaluation note* Encounter Date Diagnosis Assessment Notes Treatment Notes Treatment Clinical Notes Aug, Irritable bowel syndrome with constipation (ICD-10 - K58.1) [facility] Other 11-17-2021 Evaluation note* Encounter Date Diagnosis Assessment Notes Treatment Notes Treatment Clinical Notes Jul, Redundant colon (ICD-10 - Q43.8) Jul, Irritable bowel syndrome with constipation (ICD-10 - K58.1) Increase lactuose to 60cc bid Colonoscopy Jul, Elevated alkaline phosphatase level (ICD-10 - R74.8) Jul, History of hepatitis C (ICD-10 - Z86.19) Jul, Diabetes (ICD-10 - E11.9) [facility] Other 09-27-2021 Evaluation note* Encounter Date Diagnosis [...] mellitu s) (ICD-10 - E11.9) She has ddu-onmyuvg-yorsdnwdv type 2 diabetes mellitus currently takes oral [...] avoid any calcium and vitamin D supplement. 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 secondary to blood loss (chronic) Vitamin B12 deficiency anemia due to selective vitamin B12 malabsorption with proteinuria Other vitamin B12 deficiency anemia [facility] Anemia, normocytic normochromic- Primary Anemia, unspecified [facility] Diagnosis Disorder of airway Unspecified disease of respiratory system Airway obstruction, anatomic Other diseases of respiratory system, not elsewhere classified [facility] Diagnosis Acquired hypothyroidism Unspecified hypothyroidism [facility] Diagnosis Type 2 diabetes mellitus without complication, without long-term current use of insulin ([facility]) [facility] Diagnosis Diarrhea of presumed infectious origin- Primary Weakness Other malaise and fatigue Type 2 diabetes mellitus without complication, without long-term current use of insulin ([facility]) Hyperparathyroidism ([facility]) Hyperparathyroidism, unspecified [facility] Diagnosis Megaloblastic anemia due to vitamin B12 deficiency- Primary Other vitamin B12 deficiency anemia [facility] Diagnosis Malignant neoplasm of cardia of [...] blood loss (chronic) [facility] Diagnosis Megaloblastic anemia due to vitamin B12 deficiency- Primary Other vitamin B12 deficiency anemia Iron deficiency anemia due to chronic blood loss Iron deficiency anemia secondary to blood loss (chronic) [facility] Diagnosis Severe protein-calorie malnutrition (HCC)- Primary Other severe protein-calorie malnutrition 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) Malignant neoplasm of cardia [facility] Diagnosis Megaloblastic anemia due to vitamin B12 deficiency- Primary Other vitamin B12 deficiency anemia [facility] Diagnosis Megaloblastic anemia due to vitamin B12 deficiency- Primary Other vitamin B12 deficiency anemia Iron deficiency anemia due to chronic blood loss Iron deficiency anemia secondary to blood loss (chronic) [facility] Diagnosis Palliative care by specialist- Primary [...] condition classified elsewhere [facility] Diagnosis 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 Malignant neoplasm of cardia Severe protein-calorie malnutrition (HCC) Other severe protein-calorie malnutrition [facility] Diagnosis Megaloblastic anemia due to vitamin B12 deficiency- Primary Other vitamin B12 deficiency anemia 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) Malignant neoplasm of cardia Opioid contract exists Encounters for other specified administrative purpose Iron deficiency anemia due to chronic blood loss Iron deficiency anemia secondary to blood loss (chronic) [facility] Diagnosis 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) Malignant neoplasm of cardia Cancer related pain Neoplasm related pain (acute) (chronic) [facility] Diagnosis Hypercalcemia of malignancy- Primary Hypercalcemia Megaloblastic anemia due to vitamin B12 deficiency Other vitamin B12 deficiency anemia [facility] Diagnosis Late gastric cancer (HCC)- Primary Malignant neoplasm of stomach, unspecified site Hypercalcemia of malignancy Hypercalcemia Iron deficiency anemia due to chronic blood loss Iron deficiency anemia secondary to blood loss (chronic) B12 deficiency Other B-complex deficiencies Acquired hypothyroidism Unspecified hypothyroidism Cancer related pain Neoplasm related pain (acute) (chronic) [facility] Diagnosis Malignant neoplasm of cardia (HCC)- Primary Malignant neoplasm of cardia Malignant neoplasm of cardia (HCC) Malignant neoplasm of cardia [facility] Diagnosis Bipolar affective disorder, remission status unspecified (HCC)- Primary Anxiety with depression Malignant neoplasm of cardia (HCC) Malignant neoplasm of cardia [facility] Diagnosis 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) Malignant neoplasm of cardia Cancer related pain Neoplasm related pain (acute) (chronic) Palliative care by specialist Malignant neoplasm of cardia (HCC) Malignant neoplasm of cardia [facility] Diagnosis 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) Malignant neoplasm of cardia Cancer related pain Neoplasm related pain (acute) (chronic) Palliative care by specialist documented in this encounter [facility] general Narrative - Reported* Type Description Date [...] Surgical History LAPAROSCOPY Hospitalization History SEE ABOVE [employer] Other InstructionsNot on filedocumented in this encounter [employer] SystemInstructionsNot on filedocumented in this encounter [facility] SystemInstructionsNot on filedocumented in this encounter [facility] (narrative)* Diagnostic Procedure Only (Routine) - Closed Specialty Diagnoses / Procedures Referred By Graham gray Referred To Contact CT IMAGING Diagnoses Disorder of airway Airway obstruction, anatomic Procedures CT NECK SOFT TISSUE WO IVCON CT SCAN OF NECK TISSUE Trev Shah MD [address] [facility] [address] [place] [address] [place] [address] Referral ID Status Reason Start Date Expiration Date V isits Requested Visits Authorized [id number] Closed Auto-Generat ed Referral Patient Cleared - Admin/Chairm an/Director advise to proceed or did not respond 01/21/2021 03/22/2021 3 [facility] Consultation (Routine) - Pending Review Specialty Diagnoses / Procedures Referred By Graham gray Referred To Contact Home Health Services Diagnoses Anna Marie Kevin, CABLE TELEVISION LINE TECHNICIAN-FLOOR CLERK [address] [place] [address] [facility], [facility] [address] [place] [address] Referral ID Status Reason Start Date Expiration Date Visits Requested Visits Authorized [id number] Pending Review Specialty Services Required 11/18/2023 11/17/2024 1 1 [facility] for referral (narrative)* Diagnostic Procedure Only (Routine) - Open Specialty Diagnoses / Procedures [facility] Referred To Contact MOLECULAR & FUNCTIONAL IMAGING Diagnoses 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) Procedures NM PET/CT SKULL-THIGH INITIAL PET IMAGING CT ATTENUATION SKULL BASE MID-THIGH Beto Vivar MD [address] [place] [address] [place] [address] Molecular & Functional Imaging [address] [place] [address] Referral ID Status Reason Start Date Expiration Date V isits Requested Visits Authorized [id number] Open Auto-Generate d Referral 03/23/2024 04/22/2025 1 1 * MRI/CT (Routine) - Open Specialty Diagnoses / Procedures [facility] Ref[facility] To Contact CT IMAGING Diagnoses 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) Procedures CT ABDOMEN W IVCON CT ABDOMEN W/CONTRAST Beto Vivar MD [address] [place] [address] [place] [address] [place] [address] Referral ID Status Reason Start Date Expiration Date V isits Requested Visits Authorized [id number] Open Auto-Generate d Referral 03/23/2024 04/22/2025 1 1 * MRI/CT (Routine) - Open Specialty Diagnoses / Procedures [facility] Referred To Contact CT IMAGING Diagnoses 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) Procedures CT CHEST W IVCON DIAGNOSTIC COMPUTED TOMOGRAPHY THORAX W/CONTRAST Beto Vivar MD [address] [place] [address] [place] [address] [place] [address] Referral ID Status Reason Start Date Expiration Date V isits Requested Visits Authorized [id number] Open Auto-Generate d Referral 03/23/2024 04/22/2025 1 1 * Consult, Test, Treat (Routine) - Authorized Specialty Diagnoses / Procedures Referred By [facility] t Referred To Contact Diagnoses 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) Cancer related pain Procedures CONSULT TO PALLIATIVE CARE OFFICE/OUTPATIENT [facility] 60 MINUTES Beto Vivar MD [address] [place] [address] [place] [address] Referral ID Status Reason Start Date Expiration Date Visits Requested Visits Authorized [id number] Authorized PCP Requested Referral 03/23/2024 03/23/2025 1 1 [facility] Diagnostic Procedure Only (Routine) - Closed Specialty Diagnoses / Procedures [facility] Referred To Contact CT IMAGING Diagnoses Disorder of airway Airway obstruction, anatomic Procedures CT NECK SOFT TISSUE WO IVCON CT SCAN OF NECK TISSUE Trev Shah MD [address] [place] [address] [place] [address] Referral ID Status Reason Start Date Expiration Date V isits Requested Visits Authorized [id number] Closed Auto-Generat ed Referral Patient Cleared - Admin/Chairm an/Director advise to proceed or did not respond 01/21/2021 03/22/2021 3 3 [facility] Summary Purpose Family History No Family [...] of stomach (HCC) Cancer related pain Lillie Richter APRN.FLOOR CLERK [address] [place] [address] Referral ID Status Reason Start Date Expiration Date Visits Re quested Visits Authorized [id number] Closed 1 1 Specialty Diagnoses / Procedures Referred By Graham gray Referred To Contact Lillie Richter APRN.FLOOR CLERK [address] [place] [address] Referral ID Status Reason Start Date Expiration Date Visits Re quested Visits Authorized [id number] Closed 1 1 Additional Source Comments INFORMATION SOURCE (unrecogn ized section and content) DATE CREATED AUTHOR 02/27/2021 [facility] DATE CREATED AUTHOR AUTHOR'S ORGANIZ ATION 09/03/2022 [facility] DATE CREATED AUTHOR AUTHOR'S ORGANIZ ATION 01/20/2023 [facility] DATE CREATED AUTHOR AUTHOR'S ORGANIZ ATION 03/27/2024 [facility] DATE CREATED AUTHOR AUTHOR'S ORGANIZ ATION 03/31/2024 [facility] DATE CREATED AUTHOR AUTHOR'S ORGANIZ ATION 04/12/2024 [facility] DATE CREATED AUTHOR AUTHOR'S ORGANIZ ATION 04/23/2024 [facility] DATE CREATED AUTHOR AUTHOR'S ORGANIZ ATION 04/26/2024 [facility] DATE CREATED AUTHOR AUTHOR'S ORGANIZ ATION 04/27/2024 [facility] DATE CREATED AUTHOR AUTHOR'S ORGANIZ ATION 04/30/2024 [facility] REASON FOR VISIT (unrecogniz ed section [...] INJECTION PER 1 MG Beto Vivar MD [address] [place] [address] [place] [address] [facility] [address] [place] [address] Referral ID Status Reason Start Date Expiration Date V isits Requested Visits Authorized [id number] Authorized 03/23/2024 09/05/2024 99 99 Reason Comments Nutrition Telephone Reason Comments Patient Question Patient Update Reason Comments External Referrals/resources Reason Comments Care Coordination Scan Results Reason Comments Care Coordination Thoracic Surgery Con sult Reason Comments Patient Question Vp Human Resources - Other Reason Comments Palliative Medicine New patient consult Specialty Diagnoses / Procedures Referred By [facility] Referred To Contact Diagnoses 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) Cancer related pain Procedures CONSULT TO PALLIATIVE CARE OFFICE/OUTPATIENT NEW HIGH MDM 60 MINUTES Beto Vivar MD [address] [facility] [place] [address] Referral ID Status Reason Start Date Expiration Date V isits Requested Visits Authorized [id number] Closed PCP Requested Referral 03/23/2024 03/23/2025 1 1 Reason Comments Medication Problem Reason Comments Care Coordination Stomach pain Specialty Diagnoses / Procedures Referred By [facility] hospital Referred To Contact Diagnoses Hypercalcemia of malignancy Beto Vivar MD [address] [facility] [place] [address] [facility] [address] [place] [address] Referral ID Status Reason Start Date Expiration Date V isits Requested Visits Authorized [id number] New Request 04/18/2024 07/17/2024 1 1 Reason Comments malignant neoplasm of cardia of stomach Follow up Reason Comments Additional testing Reason Comments Port Placement Reason Comments Care Coordination Appointment Question Reason Comments Radiology Pre Procedure Instructions Reason Comments Care Coordination Pain Reason Comments Care Coordination B12 Reason Comments Care Coordination Antiemetic Reason Comments Appointment Reason Onset Date Comments Refill Request 04/24/2024 Reason Comments Insurance Authorization [employer] 20 mcg pa tch Reason Comments Care Coordination Reason Comments Care Coordination PD-L1 Question Reason Comments Returning Patient's Call Reason Comments Vp Human Resources - Other Missed Appointm ent Reason Onset Date Comments Refill Request 04/28/2024 Source Comments (unrecognize d section and content) In the event this informatio n is protected by the Federal Confidentiality of Alcohol and Drug Abuse Patient Records regulations: The Federal rules restrict any use of the information to criminally investigate or prosecute any alcohol or drug abuse patient.[facility] the event this information is protected by the Federal Confidentiality of Alcohol and Drug Abuse Patient Records regulations: The Federal rules restrict any use of the information to criminally investigate or prosecute any alcohol or drug abuse patient.[facility] the event this information is protected by the Federal Confidentiality of Alcohol and Drug Abuse Patient Records regulations: The Federal rules restrict any use of the information to criminally investigate or prosecute any alcohol or drug abuse patient.[facility] the event this information is protected by the Federal Confidentiality of Alcohol and Drug Abuse Patient Records regulations: The Federal rules restrict any use of the information to criminally investigate or prosecute any alcohol or drug abuse patient.[facility] the event this information is protected by the Federal Confidentiality of Alcohol and Drug Abuse Patient Records regulations: The Federal rules restrict any use of the information to criminally investigate or prosecute any alcohol or drug abuse patient.[facility] the event this information is protected by the Federal Confidentiality of Alcohol and Drug Abuse Patient Records regulations: The Federal rules restrict any use of the information to criminally investigate or prosecute any alcohol or drug abuse patient.[facility] the event this information is protected by the Federal Confidentiality of Alcohol and Drug Abuse Patient Records regulations: The Federal rules restrict any use of the information to criminally investigate or prosecute any alcohol or drug abuse patient.[facility] the event this information is protected by the Federal Confidentiality of Alcohol and Drug Abuse Patient Records regulations: The Federal rules restrict any use of the information to criminally investigate or prosecute any alcohol or drug abuse patient.[facility] the event this information is protected by the Federal Confidentiality of Alcohol and Drug Abuse Patient Records regulations: The Federal rules restrict any use of the information to criminally investigate or prosecute any alcohol or drug abuse patient.[facility] the event this information is protected by the Federal Confidentiality of Alcohol and Drug Abuse Patient Records regulations: The Federal rules restrict any use of the information to criminally investigate or prosecute any alcohol or drug abuse patient.[facility] the event this information is protected by the Federal Confidentiality of Alcohol and Drug Abuse Patient Records regulations: The Federal rules restrict any use of the information to criminally investigate or prosecute any alcohol or drug abuse patient.[facility] Hospital[facility] the event this information is protected by the Federal Confidentiality of Alcohol and Drug Abuse Patient Records regulations: The Federal rules restrict any use of the information to criminally investigate or prosecute any alcohol or drug abuse patient.[facility] the event this information is protected by the Federal Confidentiality of Alcohol and Drug Abuse Patient Records regulations: The Federal rules restrict any use of the information to criminally investigate or prosecute any alcohol or drug abuse patient.[facility] the event this information is protected by the Federal Confidentiality of Alcohol and Drug Abuse Patient Records regulations: The Federal rules restrict any use of the information to criminally investigate or prosecute any alcohol or drug abuse patient.[facility] Hospital[facility] the event this information is protected by the Federal Confidentiality of Alcohol and Drug Abuse Patient Records regulations: The Federal rules restrict any use of the information to criminally investigate or prosecute any alcohol or drug abuse patient.[facility] the event this information is protected by the Federal Confidentiality of Alcohol and Drug Abuse Patient Records regulations: The Federal rules restrict any use of the information to criminally investigate or prosecute any alcohol or drug abuse patient.[facility] the event this information is protected by the Federal Confidentiality of Alcohol and Drug Abuse Patient Records regulations: The Federal rules restrict any use of the information to criminally investigate or prosecute any alcohol or drug abuse patient.[facility] the event this information is protected by the Federal Confidentiality of Alcohol and Drug Abuse Patient Records regulations: The Federal rules restrict any use of the information to criminally investigate or prosecute any alcohol or drug abuse patient.[facility] the event this information is protected by the Federal Confidentiality of Alcohol and Drug Abuse Patient Records regulations: The Federal rules restrict any use of the information to criminally investigate or prosecute any alcohol or drug abuse patient.[facility]In the event this information is protected by the Federal Confidentiality of Alcohol and Drug Abuse Patient Records regulations: The Federal rules restrict any use of the information to criminally investigate or prosecute any alcohol or drug abuse patient.[facility] the event this information is protected by the Federal Confidentiality of Alcohol and Drug Abuse Patient Records regulations: The Federal rules restrict any use of the information to criminally investigate or prosecute any alcohol or drug abuse patient.[facility] the event this information is protected by the Federal Confidentiality of Alcohol and Drug Abuse Patient Records regulations: The Federal rules restrict any use of the information to criminally investigate or prosecute any alcohol or drug abuse patient.[facility] the event this information is protected by the Federal Confidentiality of Alcohol and Drug Abuse Patient Records regulations: The Federal rules restrict any use of the information to criminally investigate or prosecute any alcohol or drug abuse patient.[facility] the event this information is protected by the Federal Confidentiality of Alcohol and Drug Abuse Patient Records regulations: The Federal rules restrict any use of the information to criminally investigate or prosecute any alcohol or drug abuse patient.[facility]In the event this information is protected by the Federal Confidentiality of Alcohol and Drug Abuse Patient Records regulations: The Federal rules restrict any use of the information to criminally investigate or prosecute any alcohol or drug abuse patient.[facility] the event this information is protected by the Federal Confidentiality of Alcohol and Drug Abuse Patient Records regulations: The Federal rules restrict any use of the information to criminally investigate or prosecute any alcohol or drug abuse patient.[facility] the event this information is protected by the Federal Confidentiality of Alcohol and Drug Abuse Patient Records regulations: The Federal rules restrict any use of the information to criminally investigate or prosecute any alcohol or drug abuse patient.[facility]In the event this information is protected by the Federal Confidentiality of Alcohol and Drug Abuse Patient Records regulations: The Federal rules restrict any use of the information to criminally investigate or prosecute any alcohol or drug abuse patient.[facility]In the event this information is protected by the Federal Confidentiality of Alcohol and Drug Abuse Patient Records regulations: The Federal rules restrict any use of the information to criminally investigate or prosecute any alcohol or drug abuse patient.[facility]In the event this information is protected by the Federal Confidentiality of Alcohol and Drug Abuse Patient Records regulations: The Federal rules restrict any use of the information to criminally investigate or prosecute any alcohol or drug abuse patient.[facility] HospitalIn the event this information is protected by the Federal Confidentiality of Alcohol and Drug Abuse Patient Records regulations: The Federal rules restrict any use of the information to criminally investigate or prosecute any alcohol or drug abuse patient.[facility]In the event this information is protected by the Federal Confidentiality of Alcohol and Drug Abuse Patient Records regulations: The Federal rules restrict any use of the information to criminally investigate or prosecute any alcohol or drug abuse patient.[facility]In the event this information is protected by the Federal Confidentiality of Alcohol and Drug Abuse Patient Records regulations: The Federal rules restrict any use of the information to criminally investigate or prosecute any alcohol or drug abuse patient.[facility]In the event this information is protected by the Federal Confidentiality of Alcohol and Drug Abuse Patient Records regulations: The Federal rules restrict any use of the information to criminally investigate or prosecute any alcohol or drug abuse patient.[facility]In the event this information is protected by the Federal Confidentiality of Alcohol and Drug Abuse Patient Records regulations: The Federal rules restrict any use of the information to criminally investigate or prosecute any alcohol or drug abuse patient.[facility] HospitalIn the event this information is protected by the Federal Confidentiality of Alcohol and Drug Abuse Patient Records regulations: The Federal rules restrict any use of the information to criminally investigate or prosecute any alcohol or drug abuse patient.[facility] HospitalIn the event this information is protected by the Federal Confidentiality of Alcohol and Drug Abuse Patient Records regulations: The Federal rules restrict any use of the information to criminally investigate or prosecute any alcohol or drug abuse patient.[facility]In the event this information is protected by the Federal Confidentiality of Alcohol and Drug Abuse Patient Records regulations: The Federal rules restrict any use of the information to criminally investigate or prosecute any alcohol or drug abuse patient.[facility] HospitalIn the event this information is protected by the Federal Confidentiality of Alcohol and Drug Abuse Patient Records regulations: The Federal rules restrict any use of the information to criminally investigate or prosecute any alcohol or drug abuse patient.[facility]In the event this information is protected by the Federal Confidentiality of Alcohol and Drug Abuse Patient Records regulations: The Federal rules restrict any use of the information to criminally investigate or prosecute any alcohol or drug abuse patient.[facility]In the event this information is protected by the Federal Confidentiality of Alcohol and Drug Abuse Patient Records regulations: The Federal rules restrict any use of the information to criminally investigate or prosecute any alcohol or drug abuse patient.[facility]In the event this information is protected by the Federal Confidentiality of Alcohol and Drug Abuse Patient Records regulations: The Federal rules restrict any use of the information to criminally investigate or prosecute any alcohol or drug abuse patient.[facility]In the event this information is protected by the Federal Confidentiality of Alcohol and Drug Abuse Patient Records regulations: The Federal rules restrict any use of the information to criminally investigate or prosecute any alcohol or drug abuse patient.[facility] HospitalIn the event this information is protected by the Federal Confidentiality of Alcohol and Drug Abuse Patient Records regulations: The Federal rules restrict any use of the information to criminally investigate or prosecute any alcohol or drug abuse patient.[facility] HospitalIn the event this information is protected by the Federal Confidentiality of Alcohol and Drug Abuse Patient Records regulations: The Federal rules restrict any use of the information to criminally investigate or prosecute any alcohol or drug abuse patient.[facility] HospitalIn the event this information is protected by the Federal Confidentiality of Alcohol and Drug Abuse Patient Records regulations: The Federal rules restrict any use of the information to criminally investigate or prosecute any alcohol or drug abuse patient.[facility] HospitalIn the event this information is protected by the Federal Confidentiality of Alcohol and Drug Abuse Patient Records regulations: The Federal rules restrict any use of the information to criminally investigate or prosecute any alcohol or drug abuse patient.[facility]In the event this information is protected by the Federal Confidentiality of Alcohol and Drug Abuse Patient Records regulations: The Federal rules restrict any use of the information to criminally investigate or prosecute any alcohol or drug abuse patient.[facility]In the event this information is protected by the Federal Confidentiality of Alcohol and Drug Abuse Patient Records regulations: The Federal rules restrict any use of the information to criminally investigate or prosecute any alcohol or drug abuse patient.[facility] HospitalIn the event this information is protected by the Federal Confidentiality of Alcohol and Drug Abuse Patient Records regulations: The Federal rules restrict any use of the information to criminally investigate or prosecute any alcohol or drug abuse patient.[facility]In the event this information is protected by the Federal Confidentiality of Alcohol and Drug Abuse Patient Records regulations: The Federal rules restrict any use of the information to criminally investigate or prosecute any alcohol or drug abuse patient.[facility] Care Teams (unrecognized sec tion and content) Gun Stock Checker Relationship Specialty Start Date End Date Kostas Steward, DO [address] [place] [address] PCP - General Family Practice 05/14/22 Gun Stock Checker Relationship Specialty Start Date End Date Kostas Steward, DO [address] [place] [address] PCP - General Family Practice 05/14/22 Gun Stock Checker Relationship Specialty Start Date End Date AprilKostas echavarria, DO [address] [place] [address] PCP - General Family Medicine 05/14/22 Gun Stock Checker Relationship Specialty Start Date End Date AprilKostas echavarria, DO [address] [place] [address] PCP - General Family Medicine 05/14/22 Gun Stock Checker Relationship Specialty Start Date End Date Kostas Steward, DO [address] [place] [address] PCP - General Family Medicine 05/14/22 Gun Stock Checker Relationship Specialty Start Date End Date AprilKostas echavarria, DO [address] [place] [address] PCP - General Family Medicine 05/14/22 Gun Stock Checker Relationship Specialty Start Date End Date Kostas Steward, DO [address] [place] [address] PCP - General Family Medicine 05/14/22 Gun Stock Checker Relationship Specialty Start Date End Date Conor Herrera PCP - General Family Medicine 10/25/13 05/13/22 Gun Stock Checker Relationship Specialty Start Date End Date BinKostas [address] [place] [address] PCP - General Family Medicine 05/28/22 Gun Stock Checker Relationship Specialty Start Date End Date BinKostas [address], [place] [address] PCP - General Family Medicine 05/28/22 Gun Stock Checker Relationship Specialty Start Date End Date BinKostas [address] [place] [address] PCP - General Family Medicine 05/28/22 Gun Stock Checker Relationship Specialty Start Date End Date AprilitaliaKostas [address] [place] [address] PCP - General Family Medicine 05/14/22 Gun Stock Checker Relationship Specialty Start Date End Date Bin Kostas Jarvis [address] [place] [address] PCP - General Family Medicine 05/14/22 Gun Stock Checker Relationship Specialty Start Date End Date Kostas Stewardcaitlin [address] [place] [address] PCP - General Family Medicine 05/14/22 Gun Stock Checker Relationship Specialty Start Date End Date Kostas Steward DO [address] [place] [address] PCP - General Family Medicine 05/14/22 Gun Stock Checker Relationship Specialty Start Date End Date Kostas Steward DO [address] [place] [address] PCP - General Family Medicine 05/14/22 Belen Carlton MD [address] [place] [address] Hematology/Oncology 03/27/24 Gun Stock Checker Relationship Specialty Start Date End Date Kostas Steward DO [address] [place] [address] PCP - General Family Medicine 05/14/22 Belen Carlton MD [address] [place] [address] [address] Hematology/Oncology 03/27/24 Gun Stock Checker Relationship Specialty Start Date End Date Kostas Steward DO [address] [place] [address] PCP - General Family Medicine 05/14/22 Belen Carlton MD [address] [place] [address] [place] [address] Hematology/Oncology 03/27/24 Gun Stock Checker Relationship Specialty Start Date End Date Kostas Steward DO [address] [place] [address] PCP - General Family Medicine 05/14/22 Belen Carlton MD [address] [place] [address] Hematology/Oncology 03/27/[address] [place] [address] [place] [address] Registered Dietitian Nutrition 04/03/24 Gun Stock Checker Relationship Specialty Start Date End Date Kostas Steward DO [address] [place] [address] PCP - General Family Medicine 05/14/22 Belen Carlton MD [address] [place] [address] [place], [place] [id number] Hematology/Oncology 03/27/[address] [facility] [place] [address] Registered Dietitian Nutrition 04/03/24 Gun Stock Checker Relationship Specialty Start Date End Date Kostas Steward DO [address] [place] [address] PCP - General Family Medicine 05/14/22 Belen Carlton MD [address] [place] [address] [address] [place] [id number] Hematology/Oncology 03/27/[address] [facility] [place] [address] Registered Dietitian Nutrition 04/03/24 Jackie Silverio LSW Tactical Debriefer 04/07/24 Gun Stock Checker Relationship Specialty Start Date End Date Kostas Steward DO [address] [place] [address] PCP - General Family Medicine 05/14/22 Belen Carlton MD [address] [place], [place] [id number] Hematology/Oncology 03/27/[address] [place] [address] [place] [address] Registered Dietitian Nutrition 04/03/24 Jackie Silverio LSW Tactical Debriefer 04/07/24 Gun Stock Checker Relationship Specialty Start Date End Date Kostas Steward DO [address] [place] [address] PCP - General Family Medicine 05/14/22 Belen Carlton MD [address] [place] [address] [place], [place] [id number] Hematology/Oncology 03/27/[address] [place] [address] [place] [address] Registered Dietitian Nutrition 04/03/24 Jackie Silverio LSW Tactical Debriefer 04/07/24 Gun Stock Checker Relationship Specialty Start Date End Date Kostas Steward DO [address] [place] [address] PCP - General Family Medicine 05/14/22 Belen Carlton MD [address] [place] [address] [place] [address] Hematology/Oncology 03/27/[address] [facility] [place] [address] Registered Dietitian Nutrition 04/03/24 Jackie Silverio LSW Tactical Debriefer 04/07/24 Gun Stock Checker Relationship Specialty Start Date End Date Kostas Steward DO [address] [place] [address] PCP - General Family Medicine 05/14/22 Belen Carlton MD [address] [place] [address] [place] [address] Hematology/Oncology 03/27/[address] [facility] [place] [address] Registered Dietitian Nutrition 04/03/24 Jackie Silverio, CONCRETE MIXER OPERATOR Tactical Debriefer 04/07/24 Gun Stock Checker Relationship Specialty Start Date End Date AprilKostas navas DO [address] [place] [address] PCP - General Family Medicine 05/14/22 Belen Carlton MD [address] [place] [address] Hematology/Oncology 03/27/[address] [facility] [place] [address] Registered Dietitian Nutrition 04/03/24 Jackie Silverio LSW Tactical Debriefer 04/07/24 Gun Stock Checker Relationship Specialty Start Date End Date Kostas Steward DO [address] [place] [id number] PCP - General Family Medicine 05/14/22 Belen Carlton MD [address] [place] [address] [place], [place] [id number] Hematology/Oncology 03/27/[address] [facility] [place] [address] Registered Dietitian Nutrition 04/03/24 Jackie Silverio, CONCRETE MIXER OPERATOR Tactical Debriefer 04/07/24 Gun Stock Checker Relationship Specialty Start Date End Date Kostas Steward DO [address] [place] [address] PCP - General Family Medicine 05/14/22 Belen Carlton MD [address] [place] [address] [place] [address] Hematology/Oncology 03/27/[address] [facility] [place] [address] Registered Dietitian Nutrition 04/03/24 Jackie Silverio, CONCRETE MIXER OPERATOR Tactical Debriefer 04/07/24 Gun Stock Checker Relationship Specialty Start Date End Date Kostas Steward DO [address] [place] [address] PCP - General Family Medicine 05/14/22 Belen Carlton MD [address] [place] [address] [place], [place] [id number] Hematology/Oncology 03/27/[address] [facility] [address] Registered Dietitian Nutrition 04/03/24 Jackie Silverio LSW Tactical Debriefer 04/07/24 Gun Stock Checker Relationship Specialty Start Date End Date Kostas Steward DO [address] [place] [address] PCP - General Family Medicine 05/14/22 Belen Carlton MD [address] [place] [address] [address] [place] [address] Hematology/Oncology 03/27/[address] [facility] [place] [address] Registered Dietitian Nutrition 04/03/24 Jackie Silverio, CONCRETE MIXER OPERATOR Tactical Debriefer 04/07/24 Gun Stock Checker Relationship Specialty Start Date End Date Kostas Steward DO [address] [place] [address] PCP - General Family Medicine 05/14/22 Belen Carlton MD [address] [place] [address] [address] [place] [id number] Hematology/Oncology 03/27/[address] [facility] [place] [address] Registered Dietitian Nutrition 04/03/24 Jackie Silverio CONCRETE MIXER OPERATOR Tactical Debriefer 04/07/24 Gun Stock Checker Relationship Specialty Start Date End Date Kostas Steward DO [address] [place] [address] PCP - General Family Medicine 05/14/22 Belen Carlton MD [address] [place] [address] [address] [place] [id number] Hematology/Oncology 03/27/[address] [facility] [place] [address] Registered Dietitian Nutrition 04/03/24 Jackie Silverio CONCRETE MIXER OPERATOR Tactical Debriefer 04/07/24 Gun Stock Checker Relationship Specialty Start Date End Date Kostas Steward DO [address] [place] [address] PCP - General Family Medicine 05/14/22 Belen Carlton MD [address] [place] [address] [address] [place] [id number] Hematology/Oncology 03/27/[address] [facility] [place] [address] Registered Dietitian Nutrition 04/03/24 Jackie Silverio LSW Tactical Debriefer 04/07/24 Gun Stock Checker Relationship Specialty Start Date End Date Kostas Steward DO [address] [place] [address] PCP - General Family Medicine 05/14/22 Belen Carlton MD [address] [place] [address] [address] [place] [id number] Hematology/Oncology 03/27/[address] [facility] [place] [address] Registered Dietitian Nutrition 04/03/24 Jackie Silverio LSW Tactical Debriefer 04/07/24 Gun Stock Checker Relationship Specialty Start Date End Date Kostas Steward DO [address] [place] [address] PCP - General Family Medicine 05/14/22 Belen Carlton MD [address] [place] [address] [address] [place] [address] Hematology/Oncology 03/27/[address] [facility] [place] [address] Registered Dietitian Nutrition 04/03/24 Jackie Silverio LSW Tactical Debriefer 04/07/24 Gun Stock Checker Relationship Specialty Start Date End Date Kostas Steward DO [address] [place] [address] PCP - General Family Medicine 05/14/22 Belen Carlton MD [address] [place] [address] [place] [address] Hematology/Oncology 03/27/[address] [place] [address] [place] [address] Registered Dietitian Nutrition 04/03/24 Jackie Silverio LSW Tactical Debriefer 04/07/24 Gisselle Bryant APRN.[facility] [address] [place] [address] [place] [address] Nurse Practitioner Hematology/Oncology 04/20/24 Beto Vivar MD [address] [place] [address] [place] [address] Physician Hematology/Oncology 04/20/24 Brea Villagomez, BORA [address] [place] [address] [place] [address] Specialty Vp Human Resources Hematology/Oncology 04/20/24 Gun Stock Checker Relationship Specialty Start Date End Date Kostas Steward DO [address] [place] [address] PCP - General Family Medicine 05/14/22 Belen Carlton MD [address] [place] [address] [place] [address] Hematology/Oncology 03/27/[address] [place] [address] [place] [address] Registered Dietitian Nutrition 04/03/24 Jackie Silverio LSW Tactical Debriefer 04/07/24 Gisselle Bryant, CABLE TELEVISION LINE TECHNICIAN.FLOOR CLERK [address] [facility] [place] [address] Nurse Practitioner Hematology/Oncology 04/20/24 Beto Vivar MD [address] [facility] [place] [address] Physician Hematology/Oncology 04/20/24 Brea Villagomez, BORA [address] [facility] [place] [address] Specialty Vp Human Resources Hematology/Oncology 04/20/24 Gun Stock Checker Relationship Specialty Start Date End Date Kostas Steward [address] [place] [address] PCP - General Family Medicine 05/14/22 Belen Carlton MD [address] [place] [address] [address] [place] [address] Hematology/Oncology 03/27/[address] [facility] [place] [address] Registered Dietitian Nutrition 04/03/24 Jackie Silverio LSW Tactical Debriefer 04/07/24 Gisselle Bryant, CABLE TELEVISION LINE TECHNICIAN.FLOOR CLERK [address] [facility] [place] [address] Nurse Practitioner Hematology/Oncology 04/20/24 Beto Vivar MD [address] [facility] [place] [address] Physician Hematology/Oncology 04/20/24 Brea Villagomez, BORA [address] [facility] [address] Specialty Vp Human Resources Hematology/Oncology 04/20/24 Gun Stock Checker Relationship Specialty Start Date End Date AprildionisioKostas navas [address] [place] [address] PCP - General Family Medicine 05/14/22 Belen Carlton MD [address] [place] [address] [place] [address] Hematology/Oncology 03/27/[address] [facility] [address] Registered Dietitian Nutrition 04/03/24 Jackie Silverio LSW Tactical Debriefer 04/07/24 Gisselle Bryant APRN.FLOOR CLERK [address] [facility] [place] [address] Nurse Practitioner Hematology/Oncology 04/20/24 Beto Vivar MD [address] [facility] [place] [address] Physician Hematology/Oncology 04/20/24 Bera Villagomez, BORA [address] [facility] [address] Specialty Vp Human Resources Hematology/Oncology 04/20/24 Gun Stock Checker Relationship Specialty Start Date End Date Kostas Steward DO [address] [place] [address] PCP - General Family Medicine 05/14/22 Belen Carlton MD [address] [place] [address] [address] [place], [place] 7[address] Hematology/Oncology 03/27/[address] [place] [address] [place] [address] Registered Dietitian Nutrition 04/03/24 Jackie Silverio, CONCRETE MIXER OPERATOR Tactical Debriefer 04/07/24 Gisselle Bryant, CABLE TELEVISION LINE TECHNICIAN.FLOOR CLERK [address] [place] [address] [place] [address] Nurse Practitioner Hematology/Oncology 04/20/24 Beto Vivar MD [address] [place] [address] [place] [address] Physician Hematology/Oncology 04/20/24 Brea Villagomez, BORA [address] [place] [address] [place] [address] Specialty Vp Human Resources Hematology/Oncology 04/20/24 April Frye, RN Specialty Vp Human Resources 04/24/24 Lillie Richter, CABLE TELEVISION LINE TECHNICIAN.FLOOR CLERK [address] [place] [address] [place] [address] Hospice & Palliative Medicine 04/24/24 Gun Stock Checker Relationship Specialty Start Date End Date Kostas Steward DO [address] [place] [address] PCP - General Family Medicine 05/14/22 Belen Carlton MD [address] [place] [address] [address] [place] [address] Hematology/Oncology 03/27/[address] [place] [address] [place] [address] Registered Dietitian Nutrition 04/03/24 Jackie Silverio LSW Tactical Debriefer 04/07/24 Gisselle Bryant, CABLE TELEVISION LINE TECHNICIAN.FLOOR CLERK [address] [place] [address] [place] [address] Nurse Practitioner Hematology/Oncology 04/20/24 Beto Vivar MD [address] [place] [address] [place] [address] Physician Hematology/Oncology 04/20/24 Brea Villagomez, BORA [address] [facility] [place] [address] Specialty Vp Human Resources Hematology/Oncology 04/20/24 April Frye RN Specialty Vp Human Resources 04/24/24 Lillie Richter, CABLE TELEVISION LINE TECHNICIAN.FLOOR CLERK [address] [place] [address] [place] [address] Hospice & Palliative Medicine 04/24/24 Gun Stock Checker Relationship Specialty Start Date End Date Kostas Steward DO [address] [place] [address] PCP - General Family Medicine 05/14/22 Belen Carlton MD [address] [place], [place] [address] [address] [place] [address] Hematology/Oncology 03/27/[address] [place] [address] [place] [address] Registered Dietitian Nutrition 04/03/24 Jackie Silverio LSW Tactical Debriefer 04/07/24 Gisselle Bryant, CABLE TELEVISION LINE TECHNICIAN.FLOOR CLERK [address] [place] [address] [place] [address] Nurse Practitioner Hematology/Oncology 04/20/24 Beto Vivar MD [address] [facility] [place] [address] Physician Hematology/Oncology 04/20/24 Brea Villagomez, RN [address] [facility] [place] [address] Specialty Vp Human Resources Hematology/Oncology 04/20/24 April Frye, RN Specialty Vp Human Resources 04/24/24 Lillie Richter, CABLE TELEVISION LINE TECHNICIAN.FLOOR CLERK [address] [place] [address] [place] [address] Hospice & Palliative Medicine 04/24/24 Gun Stock Checker Relationship Specialty Start Date End Date Kostas Steward [address] [place] [address] PCP - General Family Medicine 05/14/22 Belen Carlton MD [address] [place] [address] [address] [place] [address] Hematology/Oncology 03/27/[address] [facility] [place] [address] Registered Dietitian Nutrition 04/03/24 Jackie Silverio LSW Tactical Debriefer 04/07/24 Gisselle Bryant, CABLE TELEVISION LINE TECHNICIAN.FLOOR CLERK [address] [facility] [place] [address] Nurse Practitioner Hematology/Oncology 04/20/24 Beto Vivar MD [address] [facility] [place] [address] Physician Hematology/Oncology 04/20/24 Brea Villagomez, RN [address] [facility] [place] [address] Specialty Vp Human Resources Hematology/Oncology 04/20/24 April Frye, RN Specialty Vp Human Resources 04/24/24 Lillie Richter, CABLE TELEVISION LINE TECHNICIAN.FLOOR CLERK [address] [place] [address] [place] [address] Hospice & Palliative Medicine 04/24/24 Gun Stock Checker Relationship Specialty Start Date End Date Kostas Steward DO [address] [place] [address] PCP - General Family Medicine 05/14/22 Belen Carlton MD [address] [place] [address] [address] [place] [address] Hematology/Oncology 03/27/[address] [place] [address] [place] [address] Registered Dietitian Nutrition 04/03/24 Jackie Silverio LSW Tactical Debriefer 04/07/24 Gisselle Bryant, BERENICE.FLOOR CLERK [address] [place] [address] [place] [address] Nurse Practitioner Hematology/Oncology 04/20/24 Beto Vivar MD [address] [place] [address] [place] [address] Physician Hematology/Oncology 04/20/24 Brea Villagomez, BORA [address] [place] [address] [place] [address] Specialty Vp Human Resources Hematology/Oncology 04/20/24 April Frye, RN Specialty Vp Human Resources 04/24/24 Lillie Richter, CABLE TELEVISION LINE TECHNICIAN.FLOOR CLERK [address] [facility] [place] [address] Hospice & Palliative Medicine 04/24/24 Gun Stock Checker Relationship Specialty Start Date End Date Bin Kostas DO Jarvis [address] [place] [address] PCP - General Family Medicine 05/14/22 Belen Carlton MD [address] [place] [address] [address] [place], [place] [id number] Hematology/Oncology 03/27/[address] [facility] [place] [address] Registered Dietitian Nutrition 04/03/24 Jackie Silverio LSW Tactical Debriefer 04/07/24 Gisselle Bryant, CABLE TELEVISION LINE TECHNICIAN.FLOOR CLERK [address] [place] [address] [place] [address] Nurse Practitioner Hematology/Oncology 04/20/24 Beto Vivar MD [address] [facility] [place] [address] Physician Hematology/Oncology 04/20/24 Brea Villagomez, BORA [address] [facility] [place] [address] Specialty Vp Human Resources Hematology/Oncology 04/20/24 April Frye, RN Specialty Vp Human Resources 04/24/24 Lillie Richter, CABLE TELEVISION LINE TECHNICIAN.FLOOR CLERK [address] [facility] [place] [address] Hospice & Palliative Medicine 04/24/24 Gun Stock Checker Relationship Specialty Start Date End Date Kostas Steward DO [address] [place] [address] PCP - General Family Medicine 05/14/22 Belen Carlton MD [address] [place] [address] [address] [place] [address] Hematology/Oncology 03/27/[address] [place] [address] [place] [address] Registered Dietitian Nutrition 04/03/24 Jackie Silverio LSW Tactical Debriefer 04/07/24 Gisselle Bryant, BERENICE.FLOOR CLERK [address] [place] [address] [place] [address] Nurse Practitioner Hematology/Oncology 04/20/24 Beto Vivar MD [address] [place] [address] [place] [address] Physician Hematology/Oncology 04/20/24 Brea Villagomez, BORA [address] [place] [address] [place] [address] Specialty Vp Human Resources Hematology/Oncology 04/20/24 April Frye, RN Specialty Vp Human Resources 04/24/24 Lillie Richter, CABLE TELEVISION LINE TECHNICIAN.FLOOR CLERK [address] [place] [address] [place] [address] Hospice & Palliative Medicine 04/24/24 Gun Stock Checker Relationship Specialty Start Date End Date Kostas Steward DO [address] [place] [address] PCP - General Family Medicine 05/14/22 Belen Carlton MD [address] [place] [address] [address] [place] [address] Hematology/Oncology 03/27/[address] [place] [address] [place] [address] Registered Dietitian Nutrition 04/03/24 Jackie Silverio LSW Tactical Debriefer 04/07/24 Gisselle Bryant, CABLE TELEVISION LINE TECHNICIAN.FLOOR CLERK [address] [place] [address] [place] [address] Nurse Practitioner Hematology/Oncology 04/20/24 Beto Vivar MD [address] [place] [address] [place] [address] Physician Hematology/Oncology 04/20/24 Brea Villagomez, BORA [address] [place] [address] [place] [address] Specialty Vp Human Resources Hematology/Oncology 04/20/24 April Frye, RN Specialty Vp Human Resources 04/24/24 Lillie Richter, CABLE TELEVISION LINE TECHNICIAN.FLOOR CLERK [address] [place] [address] [place] [id number] Hospice & Palliative Medicine 04/24/24 FOR RECORDS PERTAINING TO PATIENTS WHO ARE [...] BE BASED ON THE PRIMARY CLINICAL RECORDS. [facility] [employer] [facility]. provides no warranty or guarantee of the accuracy or completeness of information in this document.
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
--- NOTE | 2024-04-30 18:49 | ECG_ITS ---
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
[2024-04-30 19:02] LABS: Basophils Percent Auto 0.4 % (0.2-2.0); Eosinophils Absolute Auto 0.1 10^3/uL (0.0-0.7); Immature Granulocytes Abs Auto 0.01 10^3/uL (0.00-0.03); Immature Granulocytes Pct Auto 0.2 % (0.0-0.5); Lymphocytes Absolute Auto 0.8 10^3/uL (1.2-3.8); Lymphocytes Percent Auto 16.3 % (20.5-60.0); Mean Corpuscular HGB Conc 32.1 g/dL (29.9-35.2); Mean Corpuscular Hemoglobin 32.6 pg (26.7-34.0); Mean Corpuscular Volume 101.6 fL (81.0-99.0); Mean Platelet Volume 9.6 fL (9.5-13.5); Monocytes Absolute Auto 0.4 10^3/uL (0.3-0.8); Monocytes Percent Auto 8.4 % (1.7-12.0); Neutrophils Absolute Auto 3.7 10^3/uL (1.4-6.5); Neutrophils Percent Auto 73.7 % (43.0-75.0); Platelet Count 254 10^3/uL (150-450); Red Cell Distribution Width 16.2 % (11.0-15.0)
[2024-04-30] MEDS: MORPHINE SULFATE 4 MG/ML VIAL IV ×2 (19:06→22:37)
[2024-04-30] MEDS: PANTOPRAZOLE SODIUM 40 MG VIAL IV (19:06)
[2024-04-30] MEDS: 0.9 % SODIUM CHLORIDE 1,000 ML 999 ML IV (19:06)
[2024-04-30 19:09] LABS: INR 1.02; Prothrombin Time 10.8 sec (9.0-11.6)
--- NOTE | 2024-04-30 19:09 | CT_ITS ---
The [address] [address] Patient Name: KAYA SCHILLING MRN: [id number] date: 1965 Sex: F Assigned Patient Location: ER Current Patient Location: Accession/Order Number: [id number] Exam Date: 04/30/2024 19:30 Report Date: 04/30/2024 23:13 At the request of: NATALIE MARKER Procedure: CT angio abdomen pelvis EXAM: CT CHEST FOR PE EXAM: CTA ABDOMEN AND PELVIS WITH CONTRAST HISTORY: GI bleeding in a 59-year-old female COMPARISON: 04/26/2024 CT a chest TECHNIQUE: Multiple axial images are taken from the level of the thyroid down to the proximal thigh with the use of IV contrast. Images were then reconstructed in the coronal and sagittal planes.This exam was performed according to our departmental dose-optimization program which includes use of Automated Exposure Control, adjustment of the mA and/or kV according to patient size and/or use of iterative reconstruction technique. Contrast: 100 ml Isovue 370 FINDINGS: CT CHEST: Lungs: Normal. Pleura: No pneumothorax. No pneumomediastinum. Trace left-sided pleural effusion. Heart: Normal. Aorta: Ascending aorta measures within normal at 31.6 Pulmonary artery: Normal allowing for phase of bolus contrast. Lymph Nodes: Left lateral the upper thyroid level esophagus there are enlarged lymph nodes demonstrated within the supraclavicular region on the left that measure up to 17 mm in the short axis. Esophagus: Esophagus is patulous and fluid-filled to the level the thyroid Osseous: Osseous structures are within normal limits for patient's age. Chest Wall: There is a right-sided chest wall Port-A-Cath. Thyroid: Normal. CT ABDOMEN: Free Air: None. Liver: The liver demonstrates geographical focal fatty sparing. The left lobe of the liver demonstrates hyper enhancement relative to the right lobe of the liver. Blood flow to the liver is stable compared to prior exam. However, evaluation is limited due to lack of venous phase imaging to evaluate for portal vein patency. Biliary: Gallbladder: Not visualized. Common Bile Duct: Measures within normal limits. On axial images 107 of series 5 there is question of a stone seen within the distal common bile duct. Spleen: Normal. Adrenal Glands: Right: Normal. Left: Left adrenal gland is hypertrophied with multiple retroperitoneal masses demonstrated anterior and around the aorta measuring 78 x 15 mm. Pancreas: Normal. Kidneys/Ureters: Right Kidney: The right kidney demonstrates cortical scarring. Right Ureter: Normal. Left Kidney: Normal. Left Ureter: Normal. Bowel: Esophagus: Fluid-filled patulous esophagus with fluid at the level just beneath the thyroid. Left lateral the upper thyroid level esophagus there are enlarged lymph nodes demonstrated within the supraclavicular region on the left that measure up to 17 mm in the short axis. Stomach: The gastric wall is thickened concerning for either an infiltrative process versus hematoma within the medial wall of the stomach seen best on axial image 75 of series 5 i with high attenuating material seen within the stomach concerning for possible intraluminal gastric blood. On axial image 78 of series 5, there is a hyperattenuating mass within the proximal stomach measuring 68 x 37 mm which could represent soft tissue mass versus hematoma versus a mass with hematoma. Small Bowel: Fluid-filled small bowel measures within normal limits.. Mesentery: Subcentimeter lymph nodes in the mesentery. Appendix: Normal on axial image 163 of series 5 Large Bowel: Moderate retention of stool. Diverticulosis is demonstrated within the sigmoid colon. Evaluation for GI bleed is severely limited due to oral contrast which was retained from prior CT scan. Allowing for this limitation on axial image 171 of series 5 there is question of some angiodysplasia demonstrated. No active GI bleed allowing for the oral contrast. Retroperitoneum: Descending Aorta: Normal. IVC: Normal. Lymph Nodes: On axial image 98 of series 5, there is again seen Abnormal retroperitoneal lymphadenopathy is stable with confluent lymph nodes at the suprarenal retroperitoneal level measuring 78 x 15 mm. On axial image 116 of series 5 retroperitoneal lymphadenopathy measures 64 x 43 mm seen at the para-aortic renal level. Lymphadenopathy is also demonstrated. Infrarenal para-aortic level is stable compared to prior exam measuring 35 mm. (Prior: 35 mm. ) CT PELVIS: Bladder: The bladder is partially distended. There is edema of the bladder wall greater than expected for lack of distention. Pelvic Wall/Abdominal Wall: Patient is cachectic Reproductive: The left hemipelvis there is an enlarged multiloculated cystic structure which measures 45 x 56 mm. This was most likely in retrospect on prior exam although evaluation is limited as it is similar in intensity to the fluid. Free fluid: There is free fluid seen throughout the pelvis. Osseous: Osseous structures are within normal limits for age. CT/CT angio abdomen pelvis IMPRESSION: CT Chest: 1. Patulous esophagus which is fluid-filled. Please correlate for possible gastroesophageal reflux with possible aspiration. 2. Trace left-sided pleural effusion. 3. Supra-clavicular left-sided lymphadenopathy demonstrated (best seen on axial image 13 of series 5) CT Abdomen/Pelvis: 1a. Gastric wall which appears abnormally thickened with abnormal material within the stomach such that intraluminal blood within the wall and stomach not excluded seen best on axial image 75 of series 5 and axial image 97 of series 5. Gastric mass within the An NG tube would help better delineate for intraluminal gastric bed. 1b . On axial image 78 of series 5, there is a hyperattenuating mass within the proximal stomach measuring 68 x 37 mm which could represent soft tissue mass versus hematoma versus a mass with hematoma. 1c. Diverticulosis is demonstrated within the sigmoid colon. 1d. Evaluation for GI bleed is severely limited due to oral contrast which was retained from prior CT scan. Allowing for this limitation, on axial image 171 of series 5 there is question of some angiodysplasia demonstrated in the left colon. No active GI bleed allowing for the oral contrast. 2. Abnormal retroperitoneal lymphadenopathy again demonstrated from the suprarenal level down through into the pelvis is stable compared to prior exam. 3. Left lobe of the liver enhances greater than that of the right which is stable compared to prior exam greater than expected for geographical focal fatty sparing and/or transient hepatic attenuation differentiation. Blood flow to the liver and blood flow from the liver maybe be decreased. Please correlate with Doppler ultrasound of the liver for decreased blood flow through the hepatic artery and possible portal vein thrombosis causing passive hepatic congestion. 4. 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 Transvaginal ultrasound with spectral Doppler and/or MRI with IV contrast of the pelvis would help better delineate. (Axial image 182, series 5) 5. Edema of the bladder wall. Please correlate for cystitis. 6.Left adrenal gland is hypertrophied and appears infiltrated with surrounding lymphadenopathy. 7. Punctate stone seen in the distal common bile duct. Please correlate with biliary labs for choledocholithiasis. 8. Gallbladder not visualized. Critical results were NOTIFIED by TELEPHONE BY Dr. Zoie Lewis MD to Dr. Natalie Munguia At 04/30/2024 9:48 PM EDT. Electronically authenticated by: ZOIE LEWIS Date: 04/30/2024 23:13
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
[2024-04-30 19:11] LABS: Hematocrit 19.3 % (36.0-48.0); Hemoglobin 6.2 g/dL (12.0-16.0)
[2024-04-30 19:24] LABS: Alanine Aminotransferase 13 U/L (14-59); Albumin Globulin Ratio 0.9; Albumin Level 2.7 g/dL (3.4-5.0); Alkaline Phosphatase 77 U/L (46-116); Anion Gap 13.6; Aspartate Amino Transferase 19 U/L (15-37); BUN Creatinine Ratio 15.2; Bilirubin Total 0.5 mg/dL (0.2-1.0); Calcium 9.2 mg/dL (8.5-10.1); Carbon Dioxide 23.6 mmol/L (21.0-32.0); Chloride 101 mmol/L (98-107); Estimated GFR (African America 50 (>=60); Estimated GFR (Non-African Ame 41 (>=60); Globulin 2.9 g/dL; Glucose 194 mg/dL (74-106); Potassium 3.2 mmol/L (3.5-5.1); Sodium 135 mmol/L (136-145); Total Protein 5.6 g/dL (6.4-8.2)
[2024-04-30 19:36] LABS: Troponin I High Sensitivity 168.4 pg/mL (4.0-51.3)
[2024-04-30] MEDS: PROMETHAZINE HCL 25 MG/ML VIAL IV (19:37)
[2024-04-30] MEDS: DIPHENHYDRAMINE HCL 50 MG/ML VIAL 12.5 MG IV (19:38)
[2024-04-30] MEDS: TRANEXAMIC ACID 1,000 MG/10 ML AMPUL 1000 MG IV (19:53)
--- NOTE | 2024-04-30 20:02 | PC.NURSE ---
pt reports vomiting for 4-5 days but today is when the blood started with vomiting.
[2024-04-30] MEDS: FAMOTIDINE/PF 20 MG/2 ML VIAL 40 MG IV (20:08)
[2024-04-30] MEDS: POTASSIUM CHLORIDE IN WATER 10 MEQ/100 ML PREMIX 100 MEQ IV ×2 (22:41→23:52)
[2024-04-30 23:12] LABS: Basophils Percent Auto 0.4 % (0.2-2.0); Eosinophils Percent Auto 0.2 % (0.9-7.0); Immature Granulocytes Abs Auto 0.01 10^3/uL (0.00-0.03); Immature Granulocytes Pct Auto 0.2 % (0.0-0.5); Lymphocytes Absolute Auto 0.4 10^3/uL (1.2-3.8); Lymphocytes Percent Auto 8.2 % (20.5-60.0); Mean Corpuscular HGB Conc 32.7 g/dL (29.9-35.2); Mean Corpuscular Hemoglobin 33.3 pg (26.7-34.0); Mean Corpuscular Volume 101.9 fL (81.0-99.0); Mean Platelet Volume 9.5 fL (9.5-13.5); Monocytes Absolute Auto 0.3 10^3/uL (0.3-0.8); Monocytes Percent Auto 6.2 % (1.7-12.0); Neutrophils Absolute Auto 4.2 10^3/uL (1.4-6.5); Neutrophils Percent Auto 84.8 % (43.0-75.0); Platelet Count 201 10^3/uL (150-450); Red Cell Distribution Width 15.4 % (11.0-15.0)
[2024-04-30 23:14] LABS: Hematocrit 21.4 % (36.0-48.0)
[2024-04-30 23:31] LABS: Troponin I High Sensitivity 503.2 pg/mL (4.0-51.3)
[2024-05-01] VITALS (19 sets, daily range): BP systolic 148–170; BP diastolic 71–84; PULSE 81–101; TEMP 36.7–37.1; O2SAT 97–100
[2024-05-01] MEDS: MORPHINE SULFATE 4 MG/ML VIAL IV (02:38)
== END 2024-05-01 03:00 | disposition short-term general hospital (02) ==
PROVIDERS: Emergency Medicine Emergency Medical Services; Emergency Provider Emergency Medicine; PCP Family Medicine
DX: K92.2 Gastrointestinal hemorrhage, unspecified (principal); R79.89 Other specified abnormal findings of blood chemistry; D62 Acute posthemorrhagic anemia; R19.00 Intra-abdominal and pelvic swelling, mass and lump, unspecified site; E87.6 Hypokalemia; Z79.01 Long term (current) use of anticoagulants; C16.9 Malignant neoplasm of stomach, unspecified
CPT/HCPCS: 36415; 36430; 71275; 74174; 80053; 84484; 85025; 85610; 86850; 86900; 86901; 86923; 93005; 96361; 96365; 96366; 96368; 96375; 96376; 99285; J1200; J2250; J2270; J3480; P9016; Q9967

== ENCOUNTER 2024-05-21 22:43 | Emergency (ER) | payer OTHER, SELFPAY ==
[2024-05-21 22:48] VITALS: BP 158/90; PULSE 83; TEMP 36.9; O2SAT 100; BMI 17.1
--- OUTSIDE RECORDS SUMMARY | 2024-05-21 22:51 | XMS_ITS | CCD ---
Demographics Address [address] [place] [address] Home Phone Mobile Phone Preferred Language en Marital Status Single Pentecostal Affiliation Unknown Race White Ethnic Group Not or Lati no Author Organization [facility] CliniSyil Care Team Providers Care Food Service Worker Name Role Phone Brynn Holliday Unavailable Neo Calhoun Unavailable [phone] Kostas Steward DO Primary Care Provider Kostas Steward DO Primary Care Provider PROVIDER, UNKNOWN Attending Unavailable PROVIDER, UNKNOWN Admitting Unavailable BIN, DR KOSTAS Hough Primary Care Unavailable ROYAL RAMIRES Consulting Unavailable ROYAL RAMIRES Attending Unavailable ROYAL RAMIRES Admitting Unavailable BIN, DR KOSTAS Hough Primary Care Unavailable ARTURO, DR KARINA Hart Attending Unavailable ARTURO, DR KARINA Hart Admitting Unavailable HOLLAND, DR JUSTINA Cardoso Consulting Unavailable ARTURO, DR KARINA Hart Consulting Unavailable PATRICK .IMAN Consulting Unavailreed STEWARD, DR KOSTAS Hough Primary Care Unavailable ASHLEY, DR Camelia Beaulieu Attending Unavailable ASHLEY, DR Camelia Beaulieu Admitting Unavailable FOX DUFF Consulting Unavailable FOX DUFF Attending Unavailable BIN, DR KOTSAS Hough Primary Care Unavailable FOX DUFF Admitting [...] BIN, DR KOSTAS Hough Primary Care Unavailable JIMI Browne, DR OLIVEIRA Consulting Unavailable JIMI Browne, DR OLIVEIRA Admitting [...] FURLONG, DR KOSTAS Hough Primary Care Unavailable ERYNT, ROYAL Consulting Unavailable SPROUT, ROYAL Admitting Unavailable [...] Conor Herrera Primary Care Provider Unavailabl e Furlong Kostas FRAUSTO Primary Care Provider [phone] FurloKostas navas DO Primary Care Provider Belen Carlton MD Unavailable Erendira Aguillon RD Unavailable [phone] Jackie Art Unavailable Unavailable Dajuan Whaley Attending Unavailab Dajuan Condon Admitting Unavailab Shaikh Fox Primary Care Unavailable Manny INSTRUCTIONAL SPECIALIST.Gisselle WESLEY Unavailable Beto Vivar MD Unavailable [phone] Lise Connolly RN Unavailable April Frye RN Unavailable Unavail lisa Richter INSTRUCTIONAL SPECIALIST.Lillie WESLEY Unavailable KOSTAS STEWARD Referring Unavailable FURLOLISA, KOSTAS Hough Primary Care Unavailable APRILLONG, KOSTAS Hough Referring Unavailable FURLONG, KOSTAS Hough Primary Care Unavailable BETO VIVAR Referring Unavailable FURLONG, KOSTAS G Primary Care Unavailable BETO VIVAR Referring Unavailable FURLONG, KOSTAS G Primary Care Unavailable ILA MARQUEZ Admitting Unavailable ILA MARQUEZ Attending Unavailable MONICA, NATALIE Referring Unavailable JESSICA NEFF Consulting Unavailable JOSÉ, DESTINEE Hart Consulting Unavailable JOSE PATEL Consulting Unavailable JENNY VALLE Consulting Unavailable DK MONGE Attending Unavailable FURLONG, KOSTAS G Referring Unavailable [...] FURLONG, KOSTAS G Primary Care Unavailable FURLONG, KSOTAS G Referring Unavailable FURLONG, KOSTAS G Primary [...] KOSTAS G Primary Care Unavailable CONG MONTANO Admitting Unavailable CONG MONTANO Attending Unavailable FURLONG, KOSTAS G Primary Care Unavailable CONG MONTANO Attending Unavailable CONG MONTANO Referring Unavailable FURLONG, KOSTAS G Primary Care Unavailable MINE BENTON Attending Unavailable FURLONG, KOSTAS G Primary Care Unavailable FURLONG, KOSTAS JARVIS Primary Care Unavailab le FURLONG, KOSTAS JARVIS Referring Unavailab BETO Kimball Attending Unavailable FURLONG, KOSTAS JARVIS Primary Care Unavailab ERENDIRA Echevarria Attending Unavailabl e FURLONG, KOSTAS JARVIS Primary Care Unavailab BETO Kimball Referring Unavailable MAURICIO, HAMMAD Referring Unavailable MAURICIO, HAMMAD Attending Unavailable FURLONG, KOSTAS JARVIS Primary Care Unavailab le FURLONG, KOSTAS JARVIS Primary Care Unavailab le FURLONG, KOSTAS JARVIS Primary Care Unavailab le MARIA LUISA CRUZ Admitting Unavailable MAURO MATUTE Attending Unavailable ILA MARQUEZ Referring Unavailable FURLONG, KOSTAS JARVIS Primary Care Unavailab JORGE Garcia Attending Unavailable FURLONG, KOSTAS JARVIS Primary Care Unavailab JORGE Garcia Attending Unavailable FURLONG, KOSTAS JARVIS Primary Care Unavailab BETO Kimball Referring Unavailable FURLONG, KOSTAS JARVIS Primary Care Unavailab le FURLONG, KOSTAS JARVIS Primary Care Unavailab BETO Kimball Referring Unavailable JORGE ROY Attending Unavailable FURLONG, KOSTAS JARVIS Primary Care Unavailab JORGE Garcia Attending Unavailable FURLONG, KOSTAS JARVIS Primary Care Unavailab le FURLONG, KOSTAS JARVIS Primary Care Unavailab BETO Kimball Referring Unavailable FURLONG, KOSTAS JARVIS Primary Care Unavailab BETO Kimball Referring Unavailable FURLONG, KOSTAS JARVIS Primary Care Unavailab BETO Kimball Referring Unavailable BETO VIVAR Attending Unavailable FURLONG, KOSTAS JARVIS Primary Care Unavailab ERENDIRA Echevarria Attending UnavailBETO Perea Referring Unavailable FURLONG, KOSTAS JARVIS Primary Care Unavailab le FURLONG, KOSTAS JARVIS Primary Care Unavailab le FURLONG, KOSTAS JARVIS Primary Care Unavailab BETO Kimball Referring Unavailable FURLONG, KOSTAS JARVIS Primary Care Unavailab le FURLONG, KOSTAS JARVIS Primary Care Unavailab BETO Kimball Referring Unavailable FURLONG, KOSTAS JARVIS Primary Care Unavailab BETO Kimball Referring Unavailable ERENDIRA AGUILLON Attending Unavailabl e FURLONG, KOSTAS JARVIS Primary Care Unavailab le MAURICIO, HAMMAD Attending Unavailable FURLONG, KOSTAS JARVIS Primary Care Unavailab amy LIMGianluca JENNIFER Soto Referring Unavailable [facility], KOSTAS CONLEY Primary Care Unavailab le BIN, KOSTAS JARVIS Primary Care Unavailab JORGE Garcia Attending Unavailable BIN, KOSTAS JARVIS Primary Care Unavailab BETO Kimball Referring Unavailable LILLIE RICHTER Joon Attending Unavailreed STEWARD, KOTSAS CONLEY Primary Care Unavailab le Allergies Allergy Classification Reported Allergen(s) Allergy Type Date of Onset Reaction(s) Facility Acetaminophen / oxyCODONE (1 source) Acetaminophen / oxyCODONE Drug Allergy [address] [facility] Butorphanol (1 source) Butorphanol Drug Allergy [address] [facility] (8 sources) Butorphanol; Translations: [Stadol] Drug Allergy 4 migraines, vomiting [facility] (20 sources) Acetaminophen / oxyCODONE; Translations: [OXYCODONE-ACETAM INOPHEN] Drug Allergy [address] [facility] (20 sources) Butorphanol; Translations: [BUTORPHANOL TARTRATE] Drug Allergy [address] [facility] (2 sources) Acetaminophen / oxyCODONE Drug Allergy [facility] (8 sources) vortioxetine; Translations: [VORTIOXETINE] [facility] But[facility]anol Drug Allergy [address] [facility] Repository Medications Current Medications Medication Drug Class(es) Dates Sig (Normalized) Sig (Original) ALPRAZolam 2 mg oral tablet (20 sources) Benzodiazepine Start: 10-18-2013 take 1 tablet by mouth three times daily as needed for anxiety ALPRAZOLAM 2 mg tablet Indications: Anemia , Iron deficiency Take 2 mg by mouth three times [...] 1 tablet Orally Once a day Active Budesonide / formoterol (6 sources) Corticosteroid, beta2-Adrenergic Agonist budesonide-formotero L (SYMBICORT) 160-4.5 mcg/actuation inhaler Inhale 2 puffs every 12 (twelve) hours. 0 Active CAPLYTA 10.5 mg capsule (6 sources) [...] polyneuropathy, without long-term current use of insulin ([facility]) Take 1 tablet (10 mg total) by mouth in the morning. 30 tablet 5 03/18/2023 Active dexamethasone 2 mg oral tablet (2 sources) Corticosteroid Start: End: take 1 tablet by mouth once daily at breakfast dexAMETHasone (DECADRON) 2 mg tablet Take 1 tablet by mouth daily with breakfast for 4 days. 4 tablet 05/11/2024 05/15/2024 Active empagliflozin 25 mg oral tablet (6 [...] tablet (6 sources) Nonsteroidal Anti-inflammatory Drug Start: 023 take 1 tablet by mouth three times daily as needed ibuprofen (MOTRIN) 800 mg tablet Take 1 tablet (800 mg total) by mouth 3 (three) times a day as needed. 0 03/07/2023 Active ipratropium bromide 0.042 mg/actuat metered dose nasal spray (6 sources) Anticholinergic take 2 spray(s) nasal route three times daily Ipratropium [place] 0.06 % 2 sprays in each nostril [...] THE SAME TIME EACH DAY levothyroxine sodium 0.112 mg oral tablet (20 sources) l-Thyroxine Start: 05-11-20 End: 10-05-20 24 take 1 tablet by mouth once daily in the morning levothyroxine (SYNTHROID) 112 mcg tablet Take 1 tablet by mouth daily at 6 am. 30 tablet 05/11/2024 06/10/2024 Active Start: 02-13-2022 End: 05-11-2024 take 1 tablet by mouth once daily levothyroxine (SYNTHROID) 100 mcg tablet Take 100 mcg by mouth once daily. 02/13/2022 05/11/2024 Discontinued Start: 11-27-2020 End: 05-22-2022 take 1 tablet [...] capsule (20 sources) Guanylate Cyclase-C Agonist Start: End: take 1 capsule by mouth once daily linaCLOtide (LINZESS) 290 mcg capsule Take 1 capsule by mouth once daily. 90 capsule 2 05/11/2024 08/09/2024 Active Linzess 290 MCG 1 capsule at least 30 minutes before the first meal of the day on an empty stomach Orally Once a day Active lithium carbonate 300 mg oral capsule (20 sources) Start: 05-13-2022 End: 06-10-2024 take 1 capsule by mouth once daily at bedtime lithium carbonate (ESKALITH) 300 mg capsule Take 1 capsule by mouth daily at bedtime. 30 capsule 05/11/2024 06/10/2024 Active Start: 03-04-2018 End: 05-10-2024 take 1 tablet by mouth in the morning, then take 2 tablets by mouth in the evening lithium carbonate (ESKALITH) 300 mg capsule TAKE ONE TABLET BY MOUTH IN THE MORNING AND TWO TABLETS BY MOUTH IN THE EVENING 05/13/2022 05/10/2024 Discontinued Start: 10-18-2013 End: 05-22-2022 take 2 capsules by mouth twice daily in the evening LITHIUM CARBONATE 600 mg capsule Indications: Anemia , Iron deficiency Take 300 mg by mouth twice daily with meals. One in AM and Two in PM 0 10/18/2013 05/22/2022 Discontinued (Changing Therapy/Dosage Form) Penitas Carbonat e 150 MG 1 capsule Orally [...] spray (20 sources) Opioid Antagonist Start: 04-14-20 naloxone 4 mg/actuation nasal spray (NARCAN) Use 1 spray in one nostril as needed for overdose. May repeat every 2 to 3 min in alternating nostrils until medical assistance is available 1 Each 1 04/14/2024 Active OLANZapine 10 mg oral tablet (20 sources) Atypical Antipsychotic Start: 04-14-20 End: 05-14-20 24 take 1 tablet by mouth once daily at bedtime OLANZapine (ZYPREXA) 10 mg tablet Indications: Weight loss , Anxiety with depression , Nausea TAKE 1 TABLET BY MOUTH EVERYDAY AT BEDTIME 90 tablet 1 05/09/2024 Active pantoprazole 40 mg delayed release oral tablet (11 sources) Proton Pump Inhibitor Start: 05-11-20 End: 08-09-20 take 1 tablet by mouth once daily in the morning pantoprazole DR (PROTONIX) 40 mg tablet Take 1 tablet by mouth daily at 6 am. 30 tablet 2 05/11/2024 08/09/2024 Active take 1 tablet by corey once daily as needed Pantoprazole Sodium 20 MG 1 tablet Orall y Once a day prn Active polyethylene glycol 3350 92419 mg powder for oral solution (20 sources) Osmotic Laxative Start: 05-11-2024 End: 08-09-2024 polyethylene glycol 3350 17 gram packet Take 1 Packet by mouth two times a day. Dissolve dose in 4 - 8 ounces of liquid and take as directed. 60 Packet 2 05/11/2024 08/09/2024 Active Start: 03-07-2024 End: 05-11-2024 polyethylene glycol 3350 17 gram/dose powder Take 17 g by mouth. 03/07/2024 05/11/2024 Discontinued promethazine hydrochloride 25 mg oral tablet (20 sources) Phenothiazine Start: 11-17-2023 End: 11-22-2023 take 1 tablet by mouth every eight hours as needed for nausea and vomiting promethazine (PHENERGAN) 12.5 mg tablet Take 1 tablet (12.5 mg total) by mouth every 8 (eight) hours as needed for nausea or vomiting for up to 5 days. 15 tablet 0 11/17/2023 11/22/2023 Active Start: 03-02-2022 End: 08-09-2024 take 1 tablet by mouth every six hours as needed promethazine (PHENERGAN) 25 mg tablet Take 1 tablet by mouth every 6 hours as needed for nausea/vomiting. 120 tablet 05/11/2024 08/09/2024 Active Comment on above: Take 25 mg by mouth every 6 hours as needed. sennosides, half-way 8.6 mg oral tablet (5 sources) Start: 05-11-2024 End: 08-09-2024 take 1 tablet by mouth twice daily senna (SENOKOT) 8.6 mg tab Take 1 tablet by ORAL/FEEDING TUBE route two times a day. 60 tablet 2 05/11/2024 08/09/2024 Active zolpidem tartrate 5 mg oral tablet (20 [...] (20 sources) Opioid Agonist Start: 05-02-2024 End: 05-19-2024 take 1 tablet by mouth every six hours as needed for pain HYDROcodone-Acetami nophen (NORCO) 10-325 mg per tablet Indications: Cancer related pain Take 1 tablet by mouth every 6 hours as needed for pain for up to 7 days. 28 tablet 05/11/2024 05/19/2024 Discontinued Start: 04-14-2024 End: 04-29-2024 take 1 tablet [...] as needed for pain. 0 04/14/2024 Discontinued apixaban 5 mg oral tablet (20 sources) Factor Xa Inhibitor Start: 02-14-2024 End: 05-11-2024 apixaban (ELIQUIS) 5 mg tab(s) Take 10 mg by mouth as directed. 02/14/2024 05/11/2024 Discontinued atorvastatin 40 mg oral tablet (20 sources) HMG-CoA Reductase Inhibitor Start: 06-22-2022 End: 04-14-2024 take 1 tablet by mouth once daily atorvastatin (LIPITOR) 40 mg tablet Take 40 mg by mouth once daily. 06/22/2022 04/14/2024 Discontinued azithromycin 250 mg oral [...] 4 DAYS baclofen 10 mg oral tablet (20 sources) gamma-Aminobutyric Acid-ergic Agonist Start: 01-21-2024 End: 04-14-2024 take 1 tablet by mouth every six hours as needed baclofen 10 mg tablet Take 10 mg by mouth every 6 hours as needed. 01/21/2024 04/14/2024 Discontinued budesonide/formoter ol fumarate (SYMBICORT INHALATION) (11 sources) End: 03-23-2024 budesonide/formote rol fumarate (SYMBICORT INHALATION) Inhale as instructed. 0 03/23/2024 Discontinued (Discontinued by Patient) budesonide/formo terol fumarate (SYMBICORT INHALATION) Inhale as instructed. 0 Active Comment on above: Inhale as instructed . 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 4 Patch 04/15/2024 04/24/2024 Discontinued busPIRone hydrochloride 15 mg oral tablet (20 sources) Start: 05-13-2022 End: 04-14-2024 take 1 tablet by mouth twice daily busPIRone (BUSPAR) 15 mg tablet Take 15 mg by mouth twice daily. 05/13/2022 04/14/2024 Discontinued Comment on above: Take 15 mg by mouth twice daily. cloNIDine hydrochloride 0.1 mg oral tablet (20 sources) Central alpha-2 Adrenergic Agonist End: 04-14-2024 take 1 tablet by mouth twice daily cloNIDine HCl (CATAPRES) 0.1 mg tablet Take 0.1 mg by mouth twice daily. 04/14/2024 Discontinued Comment on above: Take 0.1 mg by mouth twice daily. docusate sodium 100 mg oral capsule (20 sources) Start: 03-07-2024 End: 04-14-2024 docusate sodium (COLACE) 100 mg capsule Take 100 mg by mouth. 03/07/2024 04/14/2024 Discontinued 120 actuat fluticasone propionate [...] twice daily. gabapentin 100 mg oral capsule (20 sources) Anti-epileptic Agent Start: 04-15-2021 End: 04-14-2024 gabapentin (NEURONTIN) 100 mg capsule Take by mouth. 02/03/2022 04/14/2024 Discontinued Comment on above: TAKE 1 CAPSULE BY MO [facility] 3 TIMES A DAY iron sucrose 300 [...] mL solution TAKE 60 ML TWICE DAILY 03/30/2022 04/14/2024 Discontinued Start: 07-23-2021 take 60 [...] Take 10 mg by mouth once daily. 04/09/2022 04/14/2024 Discontinued Comment on above: Take 10 mg by mouth once daily. metoclopramide 10 mg oral tablet (11 sources) Dopamine-2 Receptor Antagonist Start: 09-17-19 14 End: 03-23-20 24 METOCLOPRAMIDE HCL 10 mg tablet as needed. 0 09/17/2013 03/23/2024 Discontinued Comment on above: as needed. NaCl 0.9% 1,000 mL (1 source) Start: 04-18-20 End: 04-18-20 NaCl 0.9% 1,000 mL omeprazole 20 mg delayed release oral capsule (20 sources) Proton Pump Inhibitor Start: 05-17-20 End: 04-14-20 omeprazole (PRILOSEC) 20 mg capsule 05/17/2022 04/14/2024 Discontinued take 1 capsule by mouth once alejandra ly ondansetron 8 mg oral tablet (16 sources) Serotonin-3 Receptor Antagonist Start: 04-21-2024 End: 05-11-2024 take 1 tablet by mouth every eight hours as needed ondansetron (ZOFRAN) 8 mg tablet Take 1 tablet by mouth every 8 hours as needed for nausea/vomiting. 90 tablet 1 04/21/2024 05/11/2024 Discontinued pamidronate 30 mg in NaCl 0.9% 500 [...] [Left upper quadrant pain] Onset: 4 Episodic Acute and unspecified renal failure (8 sources) Acute renal failure syndrome; Translations: [Acute kidney failure, unspecified] Onset: 4 05-07-2024 Episodic Acute posthemorrhagic anemia (8 sources) Acute posthemorrhagic anemia; Translations: [Acute posthemorrhagic anemia] Onset: 4 05-08-2024 Episodic Anxiety disorders (20 sources) Posttraumatic stress disorder; Translations: [Post-traumatic stress disorder, unspecified] Onset: 2 02-21-2015 Chronic Attention-deficit, conduct, and disruptive behavior disorders (8 sources) Psychosomatic factor in physical condition; Translations: [Other symptoms and signs involving appearance and behavior] Onset: 4 05-07-2024 Episodic Blindness and vision defects (1 source) Unspecified [...] (primary) hypertension] Onset: 1 Resolved: 1 Chronic Fluid and electrolyte disorders (9 sources) Hypokalemia; Translations: [Hypokalemia] Onset: 4 05-03-2024 Episodic Gastrointestinal hemorrhage (16 sources) Hematemesis; Translations: [Gastrointestinal hemorrhage, unspecified] Onset: 2 Episodic Genitourinary symptoms and ill-defined conditions (6 sources) [...] Onset: 1 02-21-2015 Chronic Nausea and vomiting (7 sources) Nausea with vomiting, unspecified; Translations: [Nausea] Onset: 2 Episodic Neoplasms of unspecified nature or uncertain behavior (11 sources) Neoplasm of stomach ; Translations: [Neoplasm of unspecified behavior of digestive system] Onset: 4 05-03-2024 Episodic Nutritional deficiencies (20 sources) Deficiency of macronutrients; Translations: [Unspecified severe protein-calorie malnutrition] Onset: 4 04-03-2024 Chronic Osteoarthritis (20 sources) Arthritis; Translations: [Unspecified osteoarthritis, unspecified site] Onset: 2 02-21-2015 Chronic Other acquired deformities (20 sources) Scoliosis deformity of spine; Translations: [Scoliosis, unspecified] Onset: 2 02-21-2015 Chronic Other aftercare (5 sources) Other termite control representative (current) drug therapy; Translations: [OTH LONGTERM CURRENT DRUG THERAPY] Onset: 2 Episodic Other aftercare (1 source) MCFP (current) use of oral hypoglycemic drugs; Translations: [LONGTERM USE ORAL HYPOGLYCEMIC DX] Onset: 3 Episodic Other aftercare (3 sources) Under care of palliative care physician; Translations: [Encounter for palliative care] 04-14-2024 Episodic Other aftercare (2 sources) Drug therapy finding; Translations: [MCFP (current) use of opiate analgesic] 04-14-2024 Episodic Other aftercare (9 sources) Patient encounter status; Translations: [Encounter for palliative care] Onset: 4 05-03-2024 Episodic Other aftercare (8 sources) Long-term current use of lithium; Translations: [Other termite control representative (current) drug therapy] Onset: 4 05-07-2024 Episodic Other and unspecified benign neoplasm (1 source) Benign neoplasm of ascending colon; Translations: [Benign neoplasm of ascending colon] Onset: 4 Episodic Other ear and sense [...] DIARRHEA] Onset: 3 Chronic Other gastrointestinal disorders (15 sources) Constipation; Translations: [Constipation, unspecified] Onset: 4 05-04-2024 Episodic Other gastrointestinal disorders (6 sources) Altered bowel function; Translations: [Change in bowel habit] Episodic Other gastrointestinal disorders (1 source) Diarrhea of presumed infectious origin; Translations: [Diarrhea, unspecified] 11-17-2023 Episodic Other gastrointestinal disorders (1 source) Therapeutic opioid induced constipation; Translations: [Drug induced constipation] 04-14-2024 Episodic Other gastrointestinal disorders (1 source) Other [...] disorders] 01-29-2021 Episodic Other nervous system disorders (15 sources) Pain due to neoplastic disease; Translations: [Neoplasm related pain (acute) (chronic)] Onset: 4 03-23-2024 Chronic Other nervous system disorders (1 source) Neoplasm related pain (acute) (chronic); Translations: [Cancer related pain] Onset: 4 Chronic Other nervous system disorders (1 source) Other chronic pain; Translations: [Chronic bilateral low back pain with right-sided sciatica] Onset: 6 Chronic Other non-epithelial cancer of skin (1 [...] Episodic Other nutritional; endocrine; and metabolic disorders (2 sources) Weight loss; Translations: [Abnormal weight loss] 04-14-2024 Episodic Other nutritional; endocrine; and metabolic disorders (9 sources) Decrease in appetite; Translations: [Anorexia] Onset: 4 05-04-2024 Episodic Other nutritional; endocrine; and metabolic disorders (2 sources) Abnormal weight loss; Translations: [Abnormal weight loss] [...] medical condition] 04-14-2024 Chronic Residual codes; unclassified (8 sources) Insomnia; Translations: [Other insomnia] Onset: 4 05-07-2024 Chronic Residual codes; unclassified (6 sources) Disorder of digestive tract; Translations: [Acquired absence of other specified parts of digestive tract] Onset: 3 08-23-2023 Episodic Residual codes; unclassified (1 source) Pain, unspecified; Translations: [Pain, unspecified] Onset: 4 Episodic Respiratory failure; insufficiency; arrest (adult) (1 source) Chronic respiratory failure with hypoxia; Translations: [CHRONIC RESPIRATORY FAIL W/HYPOXIA] Onset: 3 Chronic Respiratory failure; insufficiency; arrest (adult) (8 sources) Acute respiratory failure; Translations: [Acute respiratory failure, unspecified whether with hypoxia or hypercapnia] Onset: 4 05-08-2024 Episodic Secondary malignancies (9 sources) Secondary malignant neoplasm of bone; Translations: [Secondary malignant neoplasm of bone] Onset: 4 05-03-2024 Chronic Skull and face fractures (20 sources) Fracture of bone of head; Translations: [Fracture of mandible, unspecified, initial encounter for closed fracture] Onset: 2 09-01-2021 Episodic Superficial injury; contusion (3 sources) Abrasion of other part of head, initial encounter; Translations: [Abrasion, right knee, initial encounter] Onset: 3 Episodic Thyroid disorders (20 sources) Hypothyroidism; Translations: [Hypothyroidism, unspecified] Onset: 2 09-03-2023 Chronic Thyroid disorders (20 sources) Disorder of thyroid gland; Translations: [Disorder of thyroid, unspecified] 02-21-2015 Episodic Unclassified (2 sources) COUGH, UNSPECIFIED; Translations: [COUGH, UNSPECIFIED] Onset: 3 Unclassified (1 source) CONTACT W/AND (SUSP) EXPOS COVID-19; Translations: [CONTACT W/AND (SUSP) EXPOS COVID-19] Onset: 2 Unclassified (1 source) POST-OP VISIT Onset: 4 Unclassified (1 source) Mass Onset: 4 Unclassified (1 source) abnormal CT scan, unintentional weight loss Onset: 4 Viral infection (3 sources) COVID-19; [...] not elsewhere classified] Onset: 05-25-2022 03-23-2024 Episodic Mood disorders (7 sources) Mood disorders; Translations: [DEPRESSION UNSPECIFIED] Onset: 01-19-2023 08-23-2023 Nonspecific chest pain (4 sources) Chest pain, unspecified; Translations: [CHEST PAIN UNSPECIFIED] Onset: 09-22-2022 Episodic Nutritional deficiencies (20 sources) Iron deficiency; Translations: [Iron deficiency] Onset: 10-26-2013 10-26-2013 Episodic Other bone disease and musculoskeletal deformities (1 source) Segmental and somatic dysfunction of thoracic region; Translations: [Segmental and somatic dysfunction of thoracic region] Onset: 02-02-2024 Episodic Other connective tissue disease (20 sources) [...] OUT PT OTH RSN] Onset: 09-29-2022 Episodic Residual codes; unclassified (1 source) Pain Onset: 02-02-2024 Episodic Screening and history of mental health and substance abuse codes (1 source) Personal history of nicotine dependence; Translations: [PERSONAL HISTORY OF NICOTINE DEPEND] Onset: 09-29-2022 Episodic Spondylosis; intervertebral disc disorders; other back [...] Test Name Value Interpretation Reference Range Facility [facility] 05-17-2024 CNPN Normal [facility]-16-2024 CNPN Normal [facility] CNPNon 05-15-2024 CNPN Normal [facility] CASE MANAGEMon 05-12-2024 CASE MANAGEM Normal [facility] CNDSon 05-12-2024 CNDS Normal [facility] CNPNon 05-12-2024 CNPN Normal [facility] ALLIED HEALTHon 05-11-2024 ALLIED HEALTH Normal [facility] CASE MANAGEMon 05-11-2024 CASE MANAGEM Normal [facility] CBC panel Auto (Bld)on 05-11 Erythrocyte distribution width (RBC) [Ratio] 18.2 % High 11.5-15.0 [facility] Comment on above: Order Comment: Speci men Type: BLOOD SPECIMENOrdering Facility: [facility] Address: [address] [place] [address] Performed By: #### 5 8410-2 ####[facility] LABCLIA [id number] [place] [address] [place] Hematocrit (Bld) [Volume fraction] 24.2 % Low 36.0-46.0 [facility] Comment on above: Order Comment: Speci men Type: BLOOD SPECIMENOrdering Facility: [facility] Address: [address] [place] [address] Performed By: #### 5 8410-2 ####[facility] LABIA [id number] [place] [address] [place] Hemoglobin (Bld) [Mass/Vol] 7.8 g/dL Low 11.5-15.5 [facility] Comment on above: Order Comment: Speci men Type: BLOOD SPECIMENOrdering Facility: [facility] Address: [address] [place] [address] Performed By: #### 5 8410-2 ####[facility] LABIA [id number] [place] [address] [place] MCH (RBC) [Entitic mass] 32.4 pg Normal 26.0-34.0 [facility] Comment on above: Order Comment: Speci men Type: BLOOD SPECIMENOrdering Facility: [facility] Address: [address] [place] [address] Performed By: #### 5 8410-2 ####[facility] LABIA [id number] [place] [address] [place] MCHC (RBC) [Mass/Vol] 32.2 g/dL Normal 30.5-36.0 [facility] Comment on above: Order Comment: Speci men Type: BLOOD SPECIMENOrdering Facility: [facility] Address: [address] [place] [address] Performed By: #### 5 8410-2 ####[facility] LABIA [id number] [place] [address] [place] MCV (RBC) [Entitic vol] 100.4 fL High 80.0-100.0 [facility] Comment on above: Order Comment: Speci men Type: BLOOD SPECIMENOrdering Facility: [facility] Address: [address] [place] [address] Performed By: #### 5 8410-2 ####[facility] LABCLIA [id number] [place] [address] [place] Nucleated RBC (Bld) [#/Vol] 10*3/uL Normal <0.01 [facility] Comment on above: Order Comment: Speci men Type: BLOOD SPECIMENOrdering Facility: [facility] Address: [address] [place] [address] Performed By: #### 5 8410-2 ####[facility] LABCLIA [id number] [place] [address] [place] Platelet mean volume (Bld) [Entitic vol] 9.9 fL Normal 9.0-12.7 [facility] Comment on above: Order Comment: Speci men Type: BLOOD SPECIMENOrdering Facility: [facility] Address: [address] [place] [address] Performed By: #### 5 8410-2 ####[facility] LABCLIA [id number] [place] [address] [place] Platelets (Bld) [#/Vol] 241 10*3/uL Normal 150-400 [facility] Comment on above: Order Comment: Speci men Type: BLOOD SPECIMENOrdering Facility: [facility] Address: [address] [place] [address] Performed By: #### 5 8410-2 ####[facility] LABCLIA [id number] [place] [address] [place] RBC (Bld) [#/Vol] 2.41 10*6/uL Low 3.90-5.20 [facility] Comment on above: Order Comment: Speci men Type: BLOOD SPECIMENOrdering Facility: [facility] Address: [address] [place] [address] Performed By: #### 5 8410-2 ####[facility] LABCLIA [id number] [place] [address] [place] WBC (Bld) [#/Vol] 5.70 10*3/uL Normal 3.70-11.00 [facility] Comment on above: Order Comment: Speci men Type: BLOOD SPECIMENOrdering Facility: [facility] Address: [address] [place] [address] Performed By: #### 5 8410-2 ####[facility] LABIA [id number] [place] [address] [place] CONSULT PROGon 05-11-2024 CONSULT PROG Normal [facility] Magnesium SerPl-mCncon 05-11 Magnesium [Mass/Vol] 2.5 mg/dL High 1.7-2.3 [facility] Comment on above: Order Comment: Speci men Type: BLOOD SPECIMENOrdering Facility: [facility] Address: [address] [place] [address] Result Comment: Resu lts may be falsely increased due to interference from hemolysis. Suggest reorder as clinically indicated. Performed By: #### 1 9123-9 ####[facility] LABIA [id number] [place] [address] [place] NURSING PROGon 05-11-2024 NURSING PROG Normal [facility] Renal function 2000 panelon 05-11-2024 Albumin [Mass/Vol] 2.8 g/dL Low 3.9-4.9 [facility] Comment on above: Order Comment: Speci men Type: BLOOD SPECIMENOrdering Facility: [facility] Address: [address] [place] [address] Performed By: #### 2 4362-6 ####[facility] LABIA [id number] [place] [address] [place] Anion gap [Moles/Vol] 8 mmol/L Normal 8-15 [facility] Comment on above: Order Comment: Speci men Type: BLOOD SPECIMENOrdering Facility: [facility] Address: [address] [place] [id number] Performed By: #### 2 4362-6 ####[facility] LABCLIA [id number] [place] [address] [place] Calcium [Mass/Vol] 10.1 mg/dL Normal 8.5-10.2 [facility] Comment on above: Order Comment: Speci men Type: BLOOD SPECIMENOrdering Facility: [facility] Address: [address] [place] [address] Performed By: #### 2 4362-6 ####[facility] LABCLIA [id number] [place] [address] [place] Chloride [Moles/Vol] 108 mmol/L High 98-107 [facility] Comment on above: Order Comment: Speci men Type: BLOOD SPECIMENOrdering Facility: [facility] Address: [address] [place] [address] Performed By: #### 2 4362-6 ####[facility] LABCLIA [id number] [place] [address] [place] CO2 [Moles/Vol] 21 mmol/L Low 22-30 [facility] Comment on above: Order Comment: Speci men Type: BLOOD SPECIMENOrdering Facility: [facility] Address: [address] [place], [place] [address] Performed By: #### 2 4362-6 ####[facility] LABCLIA [id number] [place] [id number] [place] Creatinine [Mass/Vol] 0.94 mg/dL Normal 0.58-0.96 [facility] Comment on above: Order Comment: Speci men Type: BLOOD SPECIMENOrdering Facility: [facility] Address: [address] [place], [place] [address] Performed By: #### 2 4362-6 ####[facility] LABCLIA [id number] [place] [address] [place] Creatinine and Glomerular filtration rate.predicted panel (S/P/Bld) 70 mL/min/1.73m??? Normal >=60 [facility] Comment on above: Order Comment: Paco fenton Type: BLOOD SPECIMENOrdering Facility: [facility] Address: [address] [place] [address] Result Comment: Carmen mated Glomerular Filtration Rate [...] reflect actual GFR. Performed By: #### 2 4362-6 ####[facility] LABCLIA [id number] [place] [address] [place] Glucose [Mass/Vol] 132 mg/dL High 74-99 [facility] Comment on above: Order Comment: Paco fenton Type: BLOOD SPECIMENOrdering Facility: [facility] Address: [address] [place] [address] Result Comment: The [place] [employer] (ADA) provides guidance for cutoff values for fasting glucose and random glucose. The ADA defines fasting as no caloric intake for at least 8 hours. Fasting plasma glucose results between 100 to 125 mg/dL indicate increased risk for diabetes (prediabetes).Fasting plasma glucose results greater than or equal to 126 mg/dL meet the criteria for diagnosis of diabetes. In the absence of unequivocal hyperglycemia, results should be confirmed by repeat testing. In a patient with classic symptoms of hyperglycemia or hyperglycemic crisis, random plasma glucose results greater than or equal to 200 mg/dL meet the criteria for diagnosis of diabetes.Reference: Standards of Medical Care in Diabetes 2016, [place] [employer]. Diabetes Care. 2016.39(Suppl 1). Performed By: #### 2 4362-6 ####[facility] LABCLIA [id number] [place] [address] [place] Phosphate [Mass/Vol] 2.3 mg/dL Low 2.7-4.8 [facility] Comment on above: Order Comment: Speci men Type: BLOOD SPECIMENOrdering Facility: [facility] Address: [address] [place], [place] [address] Performed By: #### 2 4362-6 ####[facility] LABCLIA [id number] [place] [address] [place] Potassium [Moles/Vol] 3.8 mmol/L Normal 3.7-5.1 [facility] Comment on above: Order Comment: Speci men Type: BLOOD SPECIMENOrdering Facility: [facility] Address: [address] [place] [address] Performed By: #### 2 4362-6 ####[facility] LABCLIA [id number] [place] [address] [place] Sodium [Moles/Vol] 137 mmol/L Normal 136-144 [facility] Comment on above: Order Comment: Speci men Type: BLOOD SPECIMENOrdering Facility: [facility] Address: [address] [place] [address] Performed By: #### 2 4362-6 ####[facility] LABCLIA [id number] [place] [address] [place] Urea nitrogen [Mass/Vol] 20 mg/dL Normal 7-21 [facility] Comment on above: Order Comment: Speci men Type: BLOOD SPECIMENOrdering Facility: [facility] Address: [address] [place] [address] Performed By: #### 2 4362-6 ####[facility] LABCLIA [id number] [place] [id number] [place] ALLIED HEALTHon 05-10-2024 ALLIED HEALTH Normal [facility] CASE MANAGEMon 05-10-2024 CASE MANAGEM Normal [facility] CBC panel Auto (Bld)on 05-10 Erythrocyte distribution width (RBC) [Ratio] 19.1 % High 11.5-15.0 [facility] Comment on above: Order Comment: Speci men Type: BLOOD SPECIMENOrdering Facility: [facility] Address: [address] [place] [address] Performed By: #### 5 8410-2 ####[facility] [id number] [place] [address] [place] Hematocrit (Bld) [Volume fraction] 22.3 % Low 36.0-46.0 [facility] Comment on above: Order Comment: Speci men Type: BLOOD SPECIMENOrdering Facility: [facility] Address: [address] [place] [address] Performed By: #### 5 8410-2 ####[facility] [id number] [place] [address] [place] Hemoglobin (Bld) [Mass/Vol] 7.4 g/dL Low 11.5-15.5 [facility] Comment on above: Order Comment: Speci men Type: BLOOD SPECIMENOrdering Facility: [facility] Address: [address] [place] [address] Performed By: #### 5 8410-2 ####[facility] LABIA [id number] [place] [address] [place] MCH (RBC) [Entitic mass] 33.3 pg Normal 26.0-34.0 [facility] Comment on above: Order Comment: Speci men Type: BLOOD SPECIMENOrdering Facility: [facility] Address: [address] [place] [address] Performed By: #### 5 8410-2 ####[facility] LABIA [id number] [place] [address] [place] MCHC (RBC) [Mass/Vol] 33.2 g/dL Normal 30.5-36.0 [facility] Comment on above: Order Comment: Speci men Type: BLOOD SPECIMENOrdering Facility: [facility] Address: [address] [place] [address] Performed By: #### 5 8410-2 ####[facility] LABCLIA [id number] [place] [address] [place] MCV (RBC) [Entitic vol] 100.5 fL High 80.0-100.0 [facility] Comment on above: Order Comment: Speci men Type: BLOOD SPECIMENOrdering Facility: [facility] Address: [address] [place] [address] Performed By: #### 5 8410-2 ####[facility] LABIA [id number] [place] [address] [place] Nucleated RBC (Bld) [#/Vol] 10*3/uL Normal <0.01 [facility] Comment on above: Order Comment: Speci men Type: BLOOD SPECIMENOrdering Facility: [facility] Address: [address] [place] [address] Performed By: #### 5 8410-2 ####[facility] LABIA [id number] [place] [address] [place] Platelet mean volume (Bld) [Entitic vol] 10.1 fL Normal 9.0-12.7 [facility] Comment on above: Order Comment: Speci men Type: BLOOD SPECIMENOrdering Facility: [facility] Address: [address] [place] [address] Performed By: #### 5 8410-2 ####[facility] LABIA [id number] [place] [address] [place] Platelets (Bld) [#/Vol] 223 10*3/uL Normal 150-400 [facility] Comment on above: Order Comment: Speci men Type: BLOOD SPECIMENOrdering Facility: [facility] Address: [address] [place] [address] Performed By: #### 5 8410-2 ####[facility] LABIA [id number] [place] [address] [place] RBC (Bld) [#/Vol] 2.22 10*6/uL Low 3.90-5.20 [facility] Comment on above: Order Comment: Speci men Type: BLOOD SPECIMENOrdering Facility: [facility] Address: [address] [place] [address] Performed By: #### 5 8410-2 ####[facility] LABCLIA [id number] [place] [address] [place] WBC (Bld) [#/Vol] 4.54 10*3/uL Normal 3.70-11.00 [facility] Comment on above: Order Comment: Speci men Type: BLOOD SPECIMENOrdering Facility: [facility] Address: [address] [place] [address] Performed By: #### 5 8410-2 ####[facility] LABCLIA [id number] [place] [address] [place] CONSULT PROGon 05-10-2024 CONSULT PROG Normal [facility] CONSULT PROG Normal [facility] Comprehensive metabolic 2000 panelon 05-10-2024 Albumin [Mass/Vol] 2.5 g/dL Low 3.9-4.9 [facility] Comment on above: Order Comment: Speci men Type: BLOOD SPECIMENOrdering Facility: [facility] Address: [address] [place] [address] Performed By: #### 2 4323-8, 26279-9, 51262-5 ####[facility] LABCLIA [id number] [place] [address] [place] ALP [Catalytic activity/Vol] 128 U/L High 34-123 [facility] Comment on above: Order Comment: Speci men Type: BLOOD SPECIMENOrdering Facility: [facility] Address: [address] [place] [address] Performed By: #### 2 4323-8, 28365-6, 15943-0 ####[facility] LABCLIA [id number] [place] [address] [place] ALT [Catalytic activity/Vol] 10 U/L Normal 7-38 [facility] Comment on above: Order Comment: Speci men Type: BLOOD SPECIMENOrdering Facility: [facility] Address: [address] [place] [address] Performed By: #### 2 4323-8, 22325-6, 15597-2 ####[facility] LABCLIA [id number] [place] [address] [place] Anion gap [Moles/Vol] 10 mmol/L Normal 8-15 [facility] Comment on above: Order Comment: Speci men Type: BLOOD SPECIMENOrdering Facility: [facility] Address: [address] [place] [address] Performed By: #### 2 4323-8, 04687-2, 05489-2 ####[facility] LABCLIA [id number] [place] [address] [place] AST [Catalytic activity/Vol] 18 U/L Normal 13-35 [facility] Comment on above: Order Comment: Speci men Type: BLOOD SPECIMENOrdering Facility: [facility] Address: [address] [place] [address] Performed By: #### 2 4323-8, , 56225-1 ####[facility] LABCLIA [id number] [place] [address] [place] Bilirubin [Mass/Vol] 0.4 mg/dL Normal 0.2-1.3 [facility] Comment on above: Order Comment: Speci men Type: BLOOD SPECIMENOrdering Facility: [facility] Address: [address] [place] [address] Performed By: #### 2 4323-8, , 37128-8 ####[facility] LABCLIA [id number] [place] [id number] [place] Calcium [Mass/Vol] 9.1 mg/dL Normal 8.5-10.2 [facility] Comment on above: Order Comment: Speci men Type: BLOOD SPECIMENOrdering Facility: [facility] Address: [address] [place] [address] Performed By: #### 2 4323-8, , 90246-0 ####[facility] LABCLIA [id number] [place] [address] [place] Chloride [Moles/Vol] 111 mmol/L High 98-107 [facility] Comment on above: Order Comment: Speci men Type: BLOOD SPECIMENOrdering Facility: [facility] Address: [address] [place] [address] Performed By: #### 2 4323-8, , 05385-4 ####[facility] LABCLIA [id number] [place] [address] [place] CO2 [Moles/Vol] 18 mmol/L Low 22-30 [facility] Comment on above: Order Comment: Speci men Type: BLOOD SPECIMENOrdering Facility: [facility] Address: [address] [place] [address] Performed By: #### 2 4323-8, , 73820-5 ####[facility] LABCLIA [id number] [place] [id number] [place] Creatinine [Mass/Vol] 0.94 mg/dL Normal 0.58-0.96 [facility] Comment on above: Order Comment: Speci men Type: BLOOD SPECIMENOrdering Facility: [facility] Address: [address] [place], [place] [address] Performed By: #### 2 4323-8, , 25502-9 ####[facility] LABCLIA [id number] [address] [address] [place] Creatinine and Glomerular filtration rate.predicted panel (S/P/Bld) 70 mL/min/1.73m??? Normal >=60 [facility] Comment on above: Order Comment: Speci men Type: BLOOD SPECIMENOrdering Facility: [facility] Address: [address] [place] [phone] Result Comment: Carmen mated Glomerular Filtration Rate [...] reflect actual GFR. Performed By: #### 2 4323-8, 08756-7, 31907-4 ####[facility] LABCLIA [id number] [place] [address] [place] Glucose [Mass/Vol] 107 mg/dL High 74-99 [facility] Comment on above: Order Comment: Paco fenton Type: BLOOD SPECIMENOrdering Facility: [facility] Address: [address] [place] [address] Result Comment: The [place] [employer] (ADA) provides guidance for cutoff values for fasting glucose and random glucose. The ADA defines fasting as no caloric intake for at least 8 hours. Fasting plasma glucose results between 100 to 125 mg/dL indicate increased risk for diabetes (prediabetes).Fasting plasma glucose results greater than or equal to 126 mg/dL meet the criteria for diagnosis of diabetes. In the absence of unequivocal hyperglycemia, results should be confirmed by repeat testing. In a patient with classic symptoms of hyperglycemia or hyperglycemic crisis, random plasma glucose results greater than or equal to 200 mg/dL meet the criteria for diagnosis of diabetes.Reference: Standards of Medical Care in Diabetes 2016, [place] [employer]. Diabetes Care. 2016.39(Suppl 1). Performed By: #### 2 4323-8, 43160-6, 97686-9 ####[facility] LABCLIA [id number] [place] [id number] [place] Potassium [Moles/Vol] 4.0 mmol/L Normal 3.7-5.1 [facility] Comment on above: Order Comment: Paco fenton Type: BLOOD SPECIMENOrdering Facility: [facility] Address: [address] [place] [address] Performed By: #### 2 4323-8, 02546-4, 56108-4 ####[facility] LABCLIA [id number] [place] [address] [place] Protein [Mass/Vol] 4.5 g/dL Low 6.3-8.0 [facility] Comment on above: Order Comment: Speci men Type: BLOOD SPECIMENOrdering Facility: [facility] Address: [address] [place] [address] Performed By: #### 2 4323-8, 86969-0, 69557-5 ####[facility] LABCLIA [id number] [place] [address] [place] Sodium [Moles/Vol] 139 mmol/L Normal 136-144 [facility] Comment on above: Order Comment: Speci men Type: BLOOD SPECIMENOrdering Facility: [facility] Address: [address] [place] [address] Performed By: #### 2 4323-8, 49646-2, 35941-3 ####[facility] LABIA [id number] [place] [address] [place] Urea nitrogen [Mass/Vol] 22 mg/dL High 7-21 [facility] Comment on above: Order Comment: Speci men Type: BLOOD SPECIMENOrdering Facility: [facility] Address: [address] [place] [address] Performed By: #### 2 4323-8, 00254-3, 97299-8 ####[facility] LABIA [id number] [place] [address] [place] Pen[place], Bld SerPl-sCncon [place] [Moles/Vol] 0.7 mmol/L Normal 0.6-1.2 [facility] Comment on above: Order Comment: Speci men Type: BLOOD SPECIMENOrdering Facility: [facility] Address: [address] [place] [address] Result Comment: Refe rence ranges and high/low indicator flags are provided as general guidelines only. The treating physician must determine appropriate target levels/dosing based on the specific clinical situation. Performed By: #### 2 4323-8, 50372-8, 67189-8 ####[facility] LABCLIA [id number] [address] [place] Magnesium SerPl-mCncon 05-10 Magnesium [Mass/Vol] 2.3 mg/dL Normal 1.7-2.3 [facility] Comment on above: Order Comment: Speci men Type: BLOOD SPECIMENOrdering Facility: [facility] Address: [address] [place] [address] Performed By: #### 2 4323-8, 68443-8, 97779-4 ####[facility] LABCLIA [id number] [place] [address] [place] THERAPY NTon 05-10-2024 THERAPY NT Normal [facility] THERAPY NT Normal [facility] TYPE + SCREENon 05-10-2024 ABO A Normal [facility] Comment on above: Order Comment: Speci men Type: BLOOD SPECIMENOrdering Facility: [facility] Address: [address] [place] [address] Performed By: #### T SCR ####[facility] BLOOD BANKCLIA [id number] [place] [address] [place] HISTORICAL AB SCR STATUS Negative Normal [facility] Comment on above: Order Comment: Speci men Type: BLOOD SPECIMENOrdering Facility: [facility] Address: [address] [place] [address] Performed By: #### T SCR ####[facility] BLOOD BANKCLIA [id number] [place] [id number] [place] Rh Nom (Bld) Positive Normal [facility] Comment on above: Order Comment: Speci men Type: BLOOD SPECIMENOrdering Facility: [facility] Address: [address] [place] [address] Performed By: #### T SCR ####[facility] BLOOD BANKIA [id number] [place] [address] [place] [facility] TYPE AND SCREEN EXPIRATION 05/13/2024 23:59 Normal [facility] Comment on above: Order Comment: Speci men Type: BLOOD SPECIMENOrdering Facility: [facility] Address: [address] [place] [address] Performed By: #### T SCR ####[facility] BLOOD BANKIA [id number] [place] [address] [place] CBC panel Auto (Bld)on 05-09 Erythrocyte distribution width (RBC) [Ratio] 18.8 % High 11.5-15.0 [facility] Comment on above: Order Comment: Speci men Type: BLOOD SPECIMENOrdering Facility: [facility] Address: [address] [place] [address] Performed By: #### 5 8410-2 ####[facility] LABIA [id number] [place] [address] [place] Hematocrit (Bld) [Volume fraction] 24.5 % Low 36.0-46.0 [facility] Comment on above: Order Comment: Speci men Type: BLOOD SPECIMENOrdering Facility: [facility] Address: [address] [place] [address] Performed By: #### 5 8410-2 ####[facility] LABCLIA [id number] [place] [address] [place] Hemoglobin (Bld) [Mass/Vol] 8.0 g/dL Low 11.5-15.5 [facility] Comment on above: Order Comment: Speci men Type: BLOOD SPECIMENOrdering Facility: [facility] Address: [address] [place] [address] Performed By: #### 5 8410-2 ####[facility] LABCLIA [id number] [place] [address] [place] MCH (RBC) [Entitic mass] 31.9 pg Normal 26.0-34.0 [facility] Comment on above: Order Comment: Speci men Type: BLOOD SPECIMENOrdering Facility: [facility] Address: [address] [place] [address] Performed By: #### 5 8410-2 ####[facility] LABIA [id number] [place] [address] [place] MCHC (RBC) [Mass/Vol] 32.7 g/dL Normal 30.5-36.0 [facility] Comment on above: Order Comment: Speci men Type: BLOOD SPECIMENOrdering Facility: [facility] Address: [address] [place] [address] Performed By: #### 5 8410-2 ####[facility] LABIA [id number] [place] [address] [place] MCV (RBC) [Entitic vol] 97.6 fL Normal 80.0-100.0 [facility] Comment on above: Order Comment: Speci men Type: BLOOD SPECIMENOrdering Facility: [facility] Address: [address] [place] [address] Performed By: #### 5 8410-2 ####[facility] LABIA [id number] [place] [address] [place] Nucleated RBC (Bld) [#/Vol] 10*3/uL Normal <0.01 [facility] Comment on above: Order Comment: Speci men Type: BLOOD SPECIMENOrdering Facility: [facility] Address: [address] [place] [address] Performed By: #### 5 8410-2 ####[facility] LABCLIA [id number] [place] [address] [place] Platelet mean volume (Bld) [Entitic vol] 9.9 fL Normal 9.0-12.7 [facility] Comment on above: Order Comment: Speci men Type: BLOOD SPECIMENOrdering Facility: [facility] Address: [address] [place] [address] Performed By: #### 5 8410-2 ####[facility] LABCLIA [id number] [place] [address] [place] Platelets (Bld) [#/Vol] 230 10*3/uL Normal 150-400 [facility] Comment on above: Order Comment: Speci men Type: BLOOD SPECIMENOrdering Facility: [facility] Address: [address] [place] [address] Performed By: #### 5 8410-2 ####[facility] LABCLIA [id number] [place] [address] [place] RBC (Bld) [#/Vol] 2.51 10*6/uL Low 3.90-5.20 [facility] Comment on above: Order Comment: Speci men Type: BLOOD SPECIMENOrdering Facility: [facility] Address: [address] [place] [address] Performed By: #### 5 8410-2 ####[facility] LABCLIA [id number] [place] [address] [place] WBC (Bld) [#/Vol] 7.36 10*3/uL Normal 3.70-11.00 [facility] Comment on above: Order Comment: Speci men Type: BLOOD SPECIMENOrdering Facility: [facility] Address: [address] [place] [address] Performed By: #### 5 8410-2 ####[facility] LABCLIA [id number] [place] [id number] [place] CONSULT PROGon 05-09-2024 CONSULT PROG Normal [facility] Comprehensive metabolic 2000 panelon 05-09-2024 Albumin [Mass/Vol] 2.9 g/dL Low 3.9-4.9 [facility] Comment on above: Order Comment: Speci men Type: BLOOD SPECIMENOrdering Facility: [facility] Address: [address] [id number] Performed By: #### 2 4323-8, ####[facility] LABCLIA [id number] [place] [id number] [place] ALP [Catalytic activity/Vol] 134 U/L High 34-123 [facility] Comment on above: Order Comment: Speci men Type: BLOOD SPECIMENOrdering Facility: [facility] Address: [address] [place], [place] [address] Performed By: #### 2 432-8, ####[facility] LABCLIA [id number] [place] [address] [place] ALT [Catalytic activity/Vol] 12 U/L Normal 7-38 [facility] Comment on above: Order Comment: Speci men Type: BLOOD SPECIMENOrdering Facility: [facility] Address: [address] [place], [place] [address] Performed By: #### 2 4323-8, ####[facility] LABCLIA [id number] [place] [address] [place] Anion gap [Moles/Vol] 7 mmol/L Low 8-15 [facility] Comment on above: Order Comment: Speci men Type: BLOOD SPECIMENOrdering Facility: [facility] Address: [address] [place], [place] [address] Performed By: #### 2 4323-8, ####[facility] LABCLIA [id number] [place] [id number] [place] AST [Catalytic activity/Vol] 18 U/L Normal 13-35 [facility] Comment on above: Order Comment: Speci men Type: BLOOD SPECIMENOrdering Facility: [facility] Address: [address] [place], [place] [address] Performed By: #### 2 4323-04, ####[facility] LABCLIA [id number] [address] [address] [place] Bilirubin [Mass/Vol] 0.4 mg/dL Normal 0.2-1.3 [facility] Comment on above: Order Comment: Speci men Type: BLOOD SPECIMENOrdering Facility: [facility] Address: [address] [place] [address] Performed By: #### 2 4323-04, ####[facility] LABCLIA [id number] [place] [address] [place] Calcium [Mass/Vol] 9.7 mg/dL Normal 8.5-10.2 [facility] Comment on above: Order Comment: Speci men Type: BLOOD SPECIMENOrdering Facility: [facility] Address: [address] [place] [address] Performed By: #### 2 4323-04, ####[facility] LABCLIA [id number] [place] [address] [place] Chloride [Moles/Vol] 108 mmol/L High 98-107 [facility] Comment on above: Order Comment: Speci men Type: BLOOD SPECIMENOrdering Facility: [facility] Address: [address] [place] [address] Performed By: #### 2 4323-04, ####[facility] LABCLIA [id number] [place] [id number] [place] CO2 [Moles/Vol] 22 mmol/L Normal 22-30 [facility] Comment on above: Order Comment: Speci men Type: BLOOD SPECIMENOrdering Facility: [facility] Address: [address] [place] [address] Performed By: #### 2 4328, ####[facility] LABCLIA [id number] [place] [id number] [place] Creatinine [Mass/Vol] 1.24 mg/dL High 0.58-0.96 [facility] Comment on above: Order Comment: Paco fenton Type: BLOOD SPECIMENOrdering Facility: [facility] Address: [address] [place] [address] Performed By: #### 2 4323-8, ####[facility] LABCLIA [id number] [address] [place] Creatinine and Glomerular filtration rate.predicted panel (S/P/Bld) 50 mL/min/1.73m??? Low >=60 [facility] Comment on above: Order Comment: Paco fenton Type: BLOOD SPECIMENOrdering Facility: [facility] Address: [address] [place] [address] Result Comment: Carmen mated Glomerular Filtration Rate [...] reflect actual GFR. Performed By: #### 2 4323-8, ####[facility] LABCLIA [id number] [place] [address] [place] Glucose [Mass/Vol] 121 mg/dL High 74-99 [facility] Comment on above: Order Comment: Paco fenton Type: BLOOD SPECIMENOrdering Facility: [facility] Address: [address] [place] [address] Result Comment: The [place] [employer] (ADA) provides guidance for cutoff values for fasting glucose and random glucose. The ADA defines fasting as no caloric intake for at least 8 hours. Fasting plasma glucose results between 100 to 125 mg/dL indicate increased risk for diabetes (prediabetes).Fasting plasma glucose results greater than or equal to 126 mg/dL meet the criteria for diagnosis of diabetes. In the absence of unequivocal hyperglycemia, results should be confirmed by repeat testing. In a patient with classic symptoms of hyperglycemia or hyperglycemic crisis, random plasma glucose results greater than or equal to 200 mg/dL meet the criteria for diagnosis of diabetes.Reference: Standards of Medical Care in Diabetes 2016, [place] [employer]. Diabetes Care. 2016.39(Suppl 1). Performed By: #### 2 4322-8, ####[facility] LABCLIA [id number] [address] [address] [place] Potassium [Moles/Vol] 4.3 mmol/L Normal 3.7-5.1 [facility] Comment on above: Order Comment: Speci men Type: BLOOD SPECIMENOrdering Facility: [facility] Address: [address] [place] [address] Performed By: #### 2 4322-, ####[facility] LABCLIA [id number] [place] [address] [place] Protein [Mass/Vol] 5.0 g/dL Low 6.3-8.0 [facility] Comment on above: Order Comment: Speci men Type: BLOOD SPECIMENOrdering Facility: [facility] Address: [address] [place] [phone] Performed By: #### 2 4323-04, ####[facility] LABCLIA [id number] [place] [address] [place] Sodium [Moles/Vol] 137 mmol/L Normal 136-144 [facility] Comment on above: Order Comment: Speci men Type: BLOOD SPECIMENOrdering Facility: [facility] Address: [address] [place] [address] Performed By: #### 2 4322-, ####[facility] LABCLIA [id number] [place] [id number] [place] Urea nitrogen [Mass/Vol] 33 mg/dL High 7-21 [facility] Comment on above: Order Comment: Speci men Type: BLOOD SPECIMENOrdering Facility: [facility] Address: [address] [place] [address] Performed By: #### 2 4323-8, 40275-7 ####[facility] LABCLIA [id number] [address] [address] [place] Creatinine Unsp time (U) [Ma ss/Vol]on 05-09-2024 Creatinine (U) [Mass/Vol] 19.5 mg/dL Low 20.0-300.0 [facility] Comment on above: Order Comment: Speci men Type: URINE SPECIMENOrdering Facility: [facility] Address: [address] [place], [place] [address] Performed By: #### 3 5674-1, 16470-9 ####[facility] LABIA [id number] [place] [id number] [place] Magnesium SerPl-mCncon 05-09 Magnesium [Mass/Vol] 2.6 mg/dL High 1.7-2.3 [facility] Comment on above: Order Comment: Speci men Type: BLOOD SPECIMENOrdering Facility: [facility] Address: [address] [place], [place] [address] Performed By: #### 2 4323-8, 42907-4 ####[facility] LABIA [id number] [place] [id number] [place] NUTRITIONon 05-09-2024 NUTRITION Normal [facility] SOCIAL WORKon 05-09-2024 SOCIAL WORK Normal [facility] Sodium ?Tm Ur-sCncon 024 Sodium Unsp time (U) [Moles/Vol] 35 mmol/L Normal 14-216 [facility] Comment on above: Order Comment: Speci men Type: URINE SPECIMENOrdering Facility: [facility] Address: [address] [place], [place] [address] Performed By: #### 3 5674-1, 93454-5 ####[facility] LABCLIA [id number] [place] [id number] [place] THERAPY NTon 05-09-2024 THERAPY NT Normal [facility] Urinalysis complete panel (U )on 05-09-2024 Bacteria LM.HPF (Urine sed) [#/Area] Negative Normal Negative [facility] Comment on above: Order Comment: Speci men Type: URINE SPECIMENOrdering Facility: [facility] Address: [address] [place] [address] Performed By: #### 2 4356-8 ####[facility] LABCLIA [id number] [place] [address] [place] Bilirubin Ql (U) Negative Normal Negative [facility] Comment on above: Order Comment: Speci men Type: URINE SPECIMENOrdering Facility: [facility] Address: [address] [place] [address] Performed By: #### 2 4356-8 ####[facility] LABCLIA [id number] [place] [address] [place] Clarity (Unsp spec) Clear Normal Clear [facility] Comment on above: Order Comment: Speci men Type: URINE SPECIMENOrdering Facility: [facility] Address: [address] [place] [address] Performed By: #### 2 4356-8 ####[facility] LABCLIA [id number] [place] [address] [place] Color (U) Yellow Normal Yellow [facility] Comment on above: Order Comment: Speci men Type: URINE SPECIMENOrdering Facility: [facility] Address: [address] [place] [address] Performed By: #### 2 4356-8 ####[facility] LABCLIA [id number] [place] [address] [place] Epithelial cells LM.HPF (Urine sed) [#/Area] None Seen Normal [facility] Comment on above: Order Comment: Speci men Type: URINE SPECIMENOrdering Facility: [facility] Address: [address] [place] [address] Performed By: #### 2 4356-8 ####[facility] LABCLIA [id number] [place] [address] [place] Glucose Test strip (U) [Mass/Vol] 2+ Abnormal Negative [facility] Comment on above: Order Comment: Speci men Type: URINE SPECIMENOrdering Facility: [facility] Address: [address] [place] [address] Performed By: #### 2 4356-8 ####[facility] LABCLIA [id number] [place] [address] [place] Hemoglobin Ql (U) Negative Normal Negative [facility] Comment on above: Order Comment: Speci men Type: URINE SPECIMENOrdering Facility: [facility] Address: [address] [place] [address] Performed By: #### 2 4356-8 ####[facility] LABCLIA [id number] [place] [address] [place] Hyaline casts (Urine sed) [#/Area] 0 /[LPF] Normal 0 /LPF [facility] Comment on above: Order Comment: Speci men Type: URINE SPECIMENOrdering Facility: [facility] Address: [address] [place] [address] Performed By: #### 2 4356-8 ####[facility] LABCLIA [id number] [place] [address] [place] Ketones Ql (U) Negative Normal Negative [facility] Comment on above: Order Comment: Speci men Type: URINE SPECIMENOrdering Facility: [facility] Address: [address] [place] [address] Performed By: #### 2 4356-8 ####[facility] LABCLIA [id number] [place] [address] [place] Leukocyte esterase Test strip Ql (U) Negative Normal Negative [facility] Comment on above: Order Comment: Speci men Type: URINE SPECIMENOrdering Facility: [facility] Address: [address] [place] [address] Performed By: #### 2 4356-8 ####[facility] LABCLIA [id number] [place] [address] [place] Nitrite Ql (U) Negative Normal Negative [facility] Comment on above: Order Comment: Speci men Type: URINE SPECIMENOrdering Facility: [facility] Address: [address] [place] [address] Performed By: #### 2 4356-8 ####[facility] LABCLIA [id number] [place] [address] [place] pH (U) 6.0 [pH] Normal <8.5 [facility] Comment on above: Order Comment: Speci men Type: URINE SPECIMENOrdering Facility: [facility] Address: [address] [place] [address] Performed By: #### 2 4356-8 ####[facility] LABCLIA [id number] [place] [address] [place] Protein (U) [Mass/Vol] Negative Normal Negative [facility] Comment on above: Order Comment: Speci men Type: URINE SPECIMENOrdering Facility: [facility] Address: [address] [place] [address] Performed By: #### 2 4356-8 ####[facility] LABCLIA [id number] [place] [address] [place] RBC LM.HPF (Urine sed) [#/Area] 0-2 /HPF Normal 0-2 /HPF [facility] Comment on above: Order Comment: Speci men Type: URINE SPECIMENOrdering Facility: [facility] Address: [address] [place] [address] Performed By: #### 2 4356-8 ####[facility] LABCLIA [id number] [place] [address] [place] Specific gravity (U) [Rel density] 1.010 Normal 1.005-1.030 [facility] Comment on above: Order Comment: Speci men Type: URINE SPECIMENOrdering Facility: [facility] Address: [address] [place] [address] Performed By: #### 2 4356-8 ####[facility] LABCLIA [id number] [place] [address] [place] Urobilinogen Ql (U) 1.0 EU/dL Normal 0.2-1.0 EU/dL [facility] Comment on above: Order Comment: Speci men Type: URINE SPECIMENOrdering Facility: [facility] Address: [address] [place] [address] Performed By: #### 2 4356-8 ####[facility] LABCLIA [id number] [place] [address] [place] WBC LM.HPF (Urine sed) [#/Area] 0-5 /HPF Normal 0-5 /HPF [facility] Comment on above: Order Comment: Speci men Type: URINE SPECIMENOrdering Facility: [facility] Address: [address] [place] [address] Performed By: #### 2 4356-8 ####[facility] LABIA [id number] [place] [address] [place] CBC panel Auto (Bld)on 05-08 Erythrocyte distribution width (RBC) [Ratio] 19.9 % High 11.5-15.0 [facility] Comment on above: Order Comment: Speci men Type: BLOOD SPECIMENOrdering Facility: [facility] Address: [address] [place] [address] Performed By: #### 5 8410-2 ####[facility] LABCLIA [id number] [place] [address] [place] Hematocrit (Bld) [Volume fraction] 25.4 % Low 36.0-46.0 [facility] Comment on above: Order Comment: Speci men Type: BLOOD SPECIMENOrdering Facility: [facility] Address: [address] [place] [address] Performed By: #### 5 8410-2 ####[facility] LABIA [id number] [place] [address] [place] Hemoglobin (Bld) [Mass/Vol] 8.3 g/dL Low 11.5-15.5 [facility] Comment on above: Order Comment: Speci men Type: BLOOD SPECIMENOrdering Facility: [facility] Address: [address] [place] [address] Performed By: #### 5 8410-2 ####[facility] [id number] [place] [address] [place] MCH (RBC) [Entitic mass] 31.9 pg Normal 26.0-34.0 [facility] Comment on above: Order Comment: Speci men Type: BLOOD SPECIMENOrdering Facility: [facility] Address: [address] [place] [address] Performed By: #### 5 8410-2 ####[facility] [id number] [place] [address] [place] MCHC (RBC) [Mass/Vol] 32.7 g/dL Normal 30.5-36.0 [facility] Comment on above: Order Comment: Speci men Type: BLOOD SPECIMENOrdering Facility: [facility] Address: [address] [place] [address] Performed By: #### 5 8410-2 ####[facility] LABIA [id number] [place] [address] [place] MCV (RBC) [Entitic vol] 97.7 fL Normal 80.0-100.0 [facility] Comment on above: Order Comment: Speci men Type: BLOOD SPECIMENOrdering Facility: [facility] Address: [address] [place] [address] Performed By: #### 5 8410-2 ####[facility] LABCLIA [id number] [place] [address] [place] Nucleated RBC (Bld) [#/Vol] 10*3/uL Normal <0.01 [facility] Comment on above: Order Comment: Speci men Type: BLOOD SPECIMENOrdering Facility: [facility] Address: [address] [place] [address] Performed By: #### 5 8410-2 ####[facility] LABIA [id number] [place] [address] [place] Platelet mean volume (Bld) [Entitic vol] 9.5 fL Normal 9.0-12.7 [facility] Comment on above: Order Comment: Speci men Type: BLOOD SPECIMENOrdering Facility: [facility] Address: [address] [place] [address] Performed By: #### 5 8410-2 ####[facility] LABIA [id number] [place] [address] [place] Platelets (Bld) [#/Vol] 210 10*3/uL Normal 150-400 [facility] Comment on above: Order Comment: Speci men Type: BLOOD SPECIMENOrdering Facility: [facility] Address: [address] [place] [address] Performed By: #### 5 8410-2 ####[facility] LABIA [id number] [place] [address] [place] RBC (Bld) [#/Vol] 2.60 10*6/uL Low 3.90-5.20 [facility] Comment on above: Order Comment: Speci men Type: BLOOD SPECIMENOrdering Facility: [facility] Address: [address] [place] [address] Performed By: #### 5 8410-2 ####[facility] LABIA [id number] [place] [address] [place] WBC (Bld) [#/Vol] 4.88 10*3/uL Normal 3.70-11.00 [facility] Comment on above: Order Comment: Speci men Type: BLOOD SPECIMENOrdering Facility: [facility] Address: [address] [place] [address] Performed By: #### 5 8410-2 ####[facility] LABCLIA [id number] [place] [address] [place] Comprehensive metabolic 2000 panelon 05-08-2024 Albumin [Mass/Vol] 2.8 g/dL Low 3.9-4.9 [facility] Comment on above: Order Comment: Speci men Type: BLOOD SPECIMENOrdering Facility: [facility] Address: [address] [place] [address] Performed By: #### 2 4323-8, ####[facility] LABCLIA [id number] [place] [address] [place] ALP [Catalytic activity/Vol] 152 U/L High 34-123 [facility] Comment on above: Order Comment: Speci men Type: BLOOD SPECIMENOrdering Facility: [facility] Address: [address] [place] [address] Performed By: #### 2 4323-8, ####[facility] LABCLIA [id number] [place] [address] [place] ALT [Catalytic activity/Vol] 14 U/L Normal 7-38 [facility] Comment on above: Order Comment: Speci men Type: BLOOD SPECIMENOrdering Facility: [facility] Address: [address] [place] [address] Performed By: #### 2 4323-8, ####[facility] LABCLIA [id number] [place] [id number] [place] Anion gap [Moles/Vol] 13 mmol/L Normal 8-15 [facility] Comment on above: Order Comment: Speci men Type: BLOOD SPECIMENOrdering Facility: [facility] Address: [address] [place] [address] Performed By: #### 2 4323-8, ####[facility] LABCLIA [id number] [place] [address] [place] AST [Catalytic activity/Vol] 18 U/L Normal 13-35 [facility] Comment on above: Order Comment: Speci men Type: BLOOD SPECIMENOrdering Facility: [facility] Address: [address] [place] [address] Performed By: #### 2 4323-8, ####[facility] LABCLIA [id number] [place] [address] [place] Bilirubin [Mass/Vol] 0.5 mg/dL Normal 0.2-1.3 [facility] Comment on above: Order Comment: Speci men Type: BLOOD SPECIMENOrdering Facility: [facility] Address: [address] [place] [address] Performed By: #### 2 4323-8, ####[facility] LABCLIA [id number] [place] [address] [place] Calcium [Mass/Vol] 9.1 mg/dL Normal 8.5-10.2 [facility] Comment on above: Order Comment: Speci men Type: BLOOD SPECIMENOrdering Facility: [facility] Address: [address] [place] [address] Performed By: #### 2 4323-8, ####[facility] LABCLIA [id number] [place] [address] [place] Chloride [Moles/Vol] 109 mmol/L High 98-107 [facility] Comment on above: Order Comment: Speci men Type: BLOOD SPECIMENOrdering Facility: [facility] Address: [address] [place] [address] Performed By: #### 2 4323-8, ####[facility] LABCLIA [id number] [place] [address] [place] CO2 [Moles/Vol] 17 mmol/L Low 22-30 [facility] Comment on above: Order Comment: Speci men Type: BLOOD SPECIMENOrdering Facility: [facility] Address: [address] [place] [address] Performed By: #### 2 43238, ####[facility] LABIA [id number] [place] [address] [place] Creatinine [Mass/Vol] 1.04 mg/dL High 0.58-0.96 [facility] Comment on above: Order Comment: Speci men Type: BLOOD SPECIMENOrdering Facility: [facility] Address: [address] [place] [address] Performed By: #### 2 4328, ####[facility] LABIA [id number] [place] [address] [place] Creatinine and Glomerular filtration rate.predicted panel (S/P/Bld) 62 mL/min/1.73m??? Normal >=60 [facility] Comment on above: Order Comment: Speci men Type: BLOOD SPECIMENOrdering Facility: [facility] Address: [address] [place] [address] Result Comment: Carmen mated Glomerular Filtration Rate [...] reflect actual GFR. Performed By: #### 2 4323-8, ####[facility] LABIA [id number] [place] [address] [place] Glucose [Mass/Vol] 133 mg/dL High 74-99 [facility] Comment on above: Order Comment: Paco fenton Type: BLOOD SPECIMENOrdering Facility: [facility] Address: [address] [place] [address] Result Comment: The [place] Diabetes Association (ADA) provides guidance for cutoff values for fasting glucose and random glucose. The ADA defines fasting as no caloric intake for at least 8 hours. Fasting plasma glucose results between 100 to 125 mg/dL indicate increased risk for diabetes (prediabetes).Fasting plasma glucose results greater than or equal to 126 mg/dL meet the criteria for diagnosis of diabetes. In the absence of unequivocal hyperglycemia, results should be confirmed by repeat testing. In a patient with classic symptoms of hyperglycemia or hyperglycemic crisis, random plasma glucose results greater than or equal to 200 mg/dL meet the criteria for diagnosis of diabetes.Reference: Standards of Medical Care in Diabetes 2016, [place] [employer]. Diabetes Care. 2016.39(Suppl 1). Performed By: #### 2 4323-8, ####[facility] LABCLIA [id number] [place] [address] [place] Potassium [Moles/Vol] 3.9 mmol/L Normal 3.7-5.1 [facility] Comment on above: Order Comment: Paco fenton Type: BLOOD SPECIMENOrdering Facility: [facility] Address: [address] [place] [address] Performed By: #### 2 432-8, ####[facility] LABCLIA [id number] [place] [address] [place] Protein [Mass/Vol] 5.1 g/dL Low 6.3-8.0 [facility] Comment on above: Order Comment: Paco fenton Type: BLOOD SPECIMENOrdering Facility: [facility] Address: [address] [place] [address] Performed By: #### 2 4323-8, ####[facility] LABCLIA [id number] [place] [address] [place] Sodium [Moles/Vol] 139 mmol/L Normal 136-144 [facility] Comment on above: Order Comment: Speci men Type: BLOOD SPECIMENOrdering Facility: [facility] Address: [address] [place], [place] [address] Performed By: #### 2 4323-8, ####[facility] LABCLIA [id number] [address] [address] [place] Urea nitrogen [Mass/Vol] 22 mg/dL High 7-21 [facility] Comment on above: Order Comment: Speci men Type: BLOOD SPECIMENOrdering Facility: [facility] Address: [address] [place] [address] Performed By: #### 2 4323-8, ####[facility] LABCLIA [id number] [place] [id number] [place] HISTORY PHYSICALon HISTORY PHYSICAL Normal [facility] HISTORY PHYSICAL Normal [facility] Magnesium SerPl-mCncon 05-08 Magnesium [Mass/Vol] 2.4 mg/dL High 1.7-2.3 [facility] Comment on above: Order Comment: Speci men Type: BLOOD SPECIMENOrdering Facility: [facility] Address: [address] [place], [place] [address] Performed By: #### 2 4323-8, ####[facility] LABIA [id number] [place] [id number] [place] NURSING PROGon 05-08-2024 NURSING PROG Normal [facility] Upper GI endoscopyon 024 Upper GI endoscopy Normal [facility] XR CHEST 1V FRONTAL PORTon 0 05-08-2024 XR CHEST 1V FRONTAL PORT Normal [facility] CBC panel Auto (Bld)on 05-07 Erythrocyte distribution width (RBC) [Ratio] 16.6 % High 11.5-15.0 [facility] Comment on above: Order Comment: Speci men Type: BLOOD SPECIMENOrdering Facility: [facility] Address: [address] [place] [address] Performed By: #### 5 8410-2 ####[facility] LABCLIA [id number] [place] [address] [place] Hematocrit (Bld) [Volume fraction] 21.0 % Low 36.0-46.0 [facility] Comment on above: Order Comment: Speci men Type: BLOOD SPECIMENOrdering Facility: [facility] Address: [address] [place] [address] Performed By: #### 5 8410-2 ####[facility] LABCLIA [id number] [place] [address] [place] Hemoglobin (Bld) [Mass/Vol] 6.9 g/dL Low 11.5-15.5 [facility] Comment on above: Order Comment: Speci men Type: BLOOD SPECIMENOrdering Facility: [facility] Address: [address] [place] [address] Performed By: #### 5 8410-2 ####[facility] LABCLIA [id number] [place] [address] [place] MCH (RBC) [Entitic mass] 33.8 pg Normal 26.0-34.0 [facility] Comment on above: Order Comment: Speci men Type: BLOOD SPECIMENOrdering Facility: [facility] Address: [address] [place] [address] Performed By: #### 5 8410-2 ####[facility] LABCLIA [id number] [place] [address] [place] MCHC (RBC) [Mass/Vol] 32.9 g/dL Normal 30.5-36.0 [facility] Comment on above: Order Comment: Speci men Type: BLOOD SPECIMENOrdering Facility: [facility] Address: [address] [place] [address] Performed By: #### 5 8410-2 ####[facility] LABCLIA [id number] [place] [address] [place] MCV (RBC) [Entitic vol] 102.9 fL High 80.0-100.0 [facility] Comment on above: Order Comment: Speci men Type: BLOOD SPECIMENOrdering Facility: [facility] Address: [address] [place] [address] Performed By: #### 5 8410-2 ####[facility] LABIA [id number] [place] [address] [place] Nucleated RBC (Bld) [#/Vol] 10*3/uL Normal <0.01 [facility] Comment on above: Order Comment: Speci men Type: BLOOD SPECIMENOrdering Facility: [facility] Address: [address] [place] [address] Performed By: #### 5 8410-2 ####[facility] [id number] [place] [address] [place] Platelet mean volume (Bld) [Entitic vol] 9.7 fL Normal 9.0-12.7 [facility] Comment on above: Order Comment: Speci men Type: BLOOD SPECIMENOrdering Facility: [facility] Address: [address] [place] [address] Performed By: #### 5 8410-2 ####[facility] [id number] [place] [address] [place] Platelets (Bld) [#/Vol] 208 10*3/uL Normal 150-400 [facility] Comment on above: Order Comment: Speci men Type: BLOOD SPECIMENOrdering Facility: [facility] Address: [address] [place] [address] Performed By: #### 5 8410-2 ####[facility] LABIA [id number] [place] [address] [place] RBC (Bld) [#/Vol] 2.04 10*6/uL Low 3.90-5.20 [facility] Comment on above: Order Comment: Speci men Type: BLOOD SPECIMENOrdering Facility: [facility] Address: [address] [place] [address] Performed By: #### 5 8410-2 ####[facility] LABCLIA [id number] [place] [address] [place] WBC (Bld) [#/Vol] 4.53 10*3/uL Normal 3.70-11.00 [facility] Comment on above: Order Comment: Speci men Type: BLOOD SPECIMENOrdering Facility: [facility] Address: [address] [place] [address] Performed By: #### 5 8410-2 ####[facility] LABIA [id number] [place] [address] [place] Erythrocyte distribution width (RBC) [Ratio] 16.8 % High 11.5-15.0 [facility] Comment on above: Order Comment: Speci men Type: BLOOD SPECIMENOrdering Facility: [facility] Address: [address] [place] [address] Performed By: #### 5 8410-2 ####[facility] LABCLIA [id number] [place] [address] [place] Hematocrit (Bld) [Volume fraction] 22.5 % Low 36.0-46.0 [facility] Comment on above: Order Comment: Speci men Type: BLOOD SPECIMENOrdering Facility: [facility] Address: [address] [place] [address] Performed By: #### 5 8410-2 ####[facility] LABIA [id number] [place] [address] [place] Hemoglobin (Bld) [Mass/Vol] 7.2 g/dL Low 11.5-15.5 [facility] Comment on above: Order Comment: Speci men Type: BLOOD SPECIMENOrdering Facility: [facility] Address: [address] [place] [address] Performed By: #### 5 8410-2 ####[facility] LABIA [id number] [place] [address] [place] MCH (RBC) [Entitic mass] 32.9 pg Normal 26.0-34.0 [facility] Comment on above: Order Comment: Speci men Type: BLOOD SPECIMENOrdering Facility: [facility] Address: [address] [place] [address] Performed By: #### 5 8410-2 ####[facility] LABIA [id number] [place] [address] [place] MCHC (RBC) [Mass/Vol] 32.0 g/dL Normal 30.5-36.0 [facility] Comment on above: Order Comment: Speci men Type: BLOOD SPECIMENOrdering Facility: [facility] Address: [address] [place] [address] Performed By: #### 5 8410-2 ####[facility] [id number] [place] [address] [place] MCV (RBC) [Entitic vol] 102.7 fL High 80.0-100.0 [facility] Comment on above: Order Comment: Speci men Type: BLOOD SPECIMENOrdering Facility: [facility] Address: [address] [place] [address] Performed By: #### 5 8410-2 ####[facility] LABIA [id number] [place] [address] [place] Nucleated RBC (Bld) [#/Vol] 10*3/uL Normal <0.01 [facility] Comment on above: Order Comment: Speci men Type: BLOOD SPECIMENOrdering Facility: [facility] Address: [address] [place] [address] Performed By: #### 5 8410-2 ####[facility] LABIA [id number] [place] [address] [place] Platelet mean volume (Bld) [Entitic vol] 10.1 fL Normal 9.0-12.7 [facility] Comment on above: Order Comment: Speci men Type: BLOOD SPECIMENOrdering Facility: [facility] Address: [address] [place] [address] Performed By: #### 5 8410-2 ####[facility] LABIA [id number] [place] [address] [place] Platelets (Bld) [#/Vol] 210 10*3/uL Normal 150-400 [facility] Comment on above: Order Comment: Speci men Type: BLOOD SPECIMENOrdering Facility: [facility] Address: [address] [place] [address] Performed By: #### 5 8410-2 ####[facility] LABIA [id number] [place] [address] [place] RBC (Bld) [#/Vol] 2.19 10*6/uL Low 3.90-5.20 [facility] Comment on above: Order Comment: Speci men Type: BLOOD SPECIMENOrdering Facility: [facility] Address: [address] [place] [address] Performed By: #### 5 8410-2 ####[facility] LABIA [id number] [place] [address] [place] WBC (Bld) [#/Vol] 5.31 10*3/uL Normal 3.70-11.00 [facility] Comment on above: Order Comment: Speci men Type: BLOOD SPECIMENOrdering Facility: [facility] Address: [address] [place] [address] Performed By: #### 5 8410-2 ####[facility] LABIA [id number] [place] [address] [place] Erythrocyte distribution width (RBC) [Ratio] 17.0 % High 11.5-15.0 [facility] Comment on above: Order Comment: Speci men Type: BLOOD SPECIMENOrdering Facility: [facility] Address: [address] [place] [address] Performed By: #### 5 8410-2 ####[facility] LABIA [id number] [place] [address] [place] Hematocrit (Bld) [Volume fraction] 23.1 % Low 36.0-46.0 [facility] Comment on above: Order Comment: Speci men Type: BLOOD SPECIMENOrdering Facility: [facility] Address: [address] [place] [address] Performed By: #### 5 8410-2 ####[facility] LABIA [id number] [place] [address] [place] Hemoglobin (Bld) [Mass/Vol] 7.7 g/dL Low 11.5-15.5 [facility] Comment on above: Order Comment: Speci men Type: BLOOD SPECIMENOrdering Facility: [facility] Address: [address] [place] [address] Performed By: #### 5 8410-2 ####[facility] LABIA [id number] [place] [address] [place] MCH (RBC) [Entitic mass] 34.4 pg High 26.0-34.0 [facility] Comment on above: Order Comment: Speci men Type: BLOOD SPECIMENOrdering Facility: [facility] Address: [address] [place] [address] Performed By: #### 5 8410-2 ####[facility] LABIA [id number] [place] [address] [place] MCHC (RBC) [Mass/Vol] 33.3 g/dL Normal 30.5-36.0 [facility] Comment on above: Order Comment: Speci men Type: BLOOD SPECIMENOrdering Facility: [facility] Address: [address] [place] [address] Performed By: #### 5 8410-2 ####[facility] LABIA [id number] [place] [address] [place] MCV (RBC) [Entitic vol] 103.1 fL High 80.0-100.0 [facility] Comment on above: Order Comment: Speci men Type: BLOOD SPECIMENOrdering Facility: [facility] Address: [address] [place] [address] Performed By: #### 5 8410-2 ####[facility] LABIA [id number] [place] [address] [place] Nucleated RBC (Bld) [#/Vol] 10*3/uL Normal <0.01 [facility] Comment on above: Order Comment: Speci men Type: BLOOD SPECIMENOrdering Facility: [facility] Address: [address] [place] [address] Performed By: #### 5 8410-2 ####[facility] LABIA [id number] [place] [address] [place] Platelet mean volume (Bld) [Entitic vol] 9.8 fL Normal 9.0-12.7 [facility] Comment on above: Order Comment: Speci men Type: BLOOD SPECIMENOrdering Facility: [facility] Address: [address] [place] [address] Performed By: #### 5 8410-2 ####[facility] LABIA [id number] [place] [address] [place] Platelets (Bld) [#/Vol] 184 10*3/uL Normal 150-400 [facility] Comment on above: Order Comment: Speci men Type: BLOOD SPECIMENOrdering Facility: [facility] Address: [address] [place] [address] Performed By: #### 5 8410-2 ####[facility] LABIA [id number] [place] [address] [place] RBC (Bld) [#/Vol] 2.24 10*6/uL Low 3.90-5.20 [facility] Comment on above: Order Comment: Speci men Type: BLOOD SPECIMENOrdering Facility: [facility] Address: [address] [place] [address] Performed By: #### 5 8410-2 ####[facility] LABCLIA [id number] [place] [address] [place] WBC (Bld) [#/Vol] 4.49 10*3/uL Normal 3.70-11.00 [facility] Comment on above: Order Comment: Speci men Type: BLOOD SPECIMENOrdering Facility: [facility] Address: [address] [place] [address] Performed By: #### 5 8410-2 ####[facility] LABCLIA [id number] [place] [address] [place] CONSULT PROGon 05-07-2024 CONSULT PROG Normal [facility] CTA ABD/PELV W IVCONon 05-07 CTA ABD/PELV W IVCON Normal [facility] NURSING PROGon 05-07-2024 NURSING PROG Normal [facility] NURSING PROG Normal [facility] Renal function 2000 panelon 05-07-2024 Albumin [Mass/Vol] 2.9 g/dL Low 3.9-4.9 [facility] Comment on above: Order Comment: Speci men Type: BLOOD SPECIMENOrdering Facility: [facility] Address: [address] [place] [address] Performed By: #### 2 4362-6 ####[facility] LABCLIA [id number] [place] [address] [place] Anion gap [Moles/Vol] 10 mmol/L Normal 8-15 [facility] Comment on above: Order Comment: Speci men Type: BLOOD SPECIMENOrdering Facility: [facility] Address: [address] [place] [address] Performed By: #### 2 4362-6 ####[facility] LABCLIA [id number] [facility] [place] [address] [place] Calcium [Mass/Vol] 9.5 mg/dL Normal 8.5-10.2 [facility] Comment on above: Order Comment: Speci men Type: BLOOD SPECIMENOrdering Facility: [facility] Address: [address] [place] [address] Performed By: #### 2 4362-6 ####[facility] LABCLIA [id number] [place] [address] [place] Chloride [Moles/Vol] 111 mmol/L High 98-107 [facility] Comment on above: Order Comment: Speci men Type: BLOOD SPECIMENOrdering Facility: [facility] Address: [address] [place] [address] Performed By: #### 2 4362-6 ####[facility] LABCLIA [id number] [place] [address] [place] CO2 [Moles/Vol] 18 mmol/L Low 22-30 [facility] Comment on above: Order Comment: Speci men Type: BLOOD SPECIMENOrdering Facility: [facility] Address: [address] [place] [address] Performed By: #### 2 4362-6 ####[facility] LABCLIA [id number] [place] [address] [place] Creatinine [Mass/Vol] 0.99 mg/dL High 0.58-0.96 [facility] Comment on above: Order Comment: Speci men Type: BLOOD SPECIMENOrdering Facility: [facility] Address: [address] [place] [address] Performed By: #### 2 4362-6 ####[facility] LABCLIA [id number] [place] [address] [place] Creatinine and Glomerular filtration rate.predicted panel (S/P/Bld) 65 mL/min/1.73m??? Normal >=60 [facility] Comment on above: Order Comment: Paco fenton Type: BLOOD SPECIMENOrdering Facility: [facility] Address: [address] [place] [address] Result Comment: Carmen mated Glomerular Filtration Rate [...] reflect actual GFR. Performed By: #### 2 4362-6 ####[facility] LABIA [id number] [place] [address] [place] Glucose [Mass/Vol] 120 mg/dL High 74-99 [facility] Comment on above: Order Comment: Paco fenton Type: BLOOD SPECIMENOrdering Facility: [facility] Address: [address] [place] [address] Result Comment: The [place] [employer] (ADA) provides guidance for cutoff values for fasting glucose and random glucose. The ADA defines fasting as no caloric intake for at least 8 hours. Fasting plasma glucose results between 100 to 125 mg/dL indicate increased risk for diabetes (prediabetes).Fasting plasma glucose results greater than or equal to 126 mg/dL meet the criteria for diagnosis of diabetes. In the absence of unequivocal hyperglycemia, results should be confirmed by repeat testing. In a patient with classic symptoms of hyperglycemia or hyperglycemic crisis, random plasma glucose results greater than or equal to 200 mg/dL meet the criteria for diagnosis of diabetes.Reference: Standards of Medical Care in Diabetes 2016, [place] [employer]. Diabetes Care. 2016.39(Suppl 1). Performed By: #### 2 4362-6 ####[facility] [id number] [place] [address] [place] Phosphate [Mass/Vol] 2.4 mg/dL Low 2.7-4.8 [facility] Comment on above: Order Comment: Paco fenton Type: BLOOD SPECIMENOrdering Facility: [facility] Address: [address] [place] [address] Performed By: #### 2 4362-6 ####[facility] LABCLIA [id number] [place] [address] [place] Potassium [Moles/Vol] 3.6 mmol/L Low 3.7-5.1 [facility] Comment on above: Order Comment: Speci men Type: BLOOD SPECIMENOrdering Facility: [facility] Address: [address] [place] [address] Performed By: #### 2 4362-6 ####[facility] LABCLIA [id number] [place] [address] [place] Sodium [Moles/Vol] 139 mmol/L Normal 136-144 [facility] Comment on above: Order Comment: Speci men Type: BLOOD SPECIMENOrdering Facility: [facility] Address: [address] [place] [address] Performed By: #### 2 4362-6 ####[facility] LABCLIA [id number] [place] [address] [place] Urea nitrogen [Mass/Vol] 16 mg/dL Normal 7-21 [facility] Comment on above: Order Comment: Speci men Type: BLOOD SPECIMENOrdering Facility: [facility] Address: [address] [place] [address] Performed By: #### 2 4362-6 ####[facility] LABCLIA [id number] [place] [id number] [place] THERAPY NTon 05-07-2024 THERAPY NT Normal [facility] TYPE + SCREENon 05-07-2024 ABO A Normal [facility] Comment on above: Order Comment: Speci men Type: BLOOD SPECIMENOrdering Facility: [facility] Address: [address] [place] [address] Performed By: #### T SCR ####[facility] BLO[facility] BANKCL[facility] [id number] [address] HISTORICAL AB SCR STATUS Negative Normal [facility] Comment on above: Order Comment: Speci men Type: BLOOD SPECIMENOrdering Facility: [facility] Address: [address] [place] [address] Performed By: #### T SCR ####[facility] B[facility]ANKCLIA [id number] [place] [address] [place] Rh Nom (Bld) Positive Normal [facility] Comment on above: Order Comment: Speci men Type: BLOOD SPECIMENOrdering Facility: [facility] Address: [address] [place] [address] Performed By: #### T SCR ####CC MAIN BLOOD BANKCLIA [id number] OF [facility] TYPE AND SCREEN EXPIRATION 05/10/2024 23:59 Normal [facility] Comment on above: Order Comment: Speci men Type: BLOOD SPECIMENOrdering Facility: [facility] Address: [address] [place] [address] Performed By: #### T SCR ####CC MAIN BLOOD BANKCLIA [id number] [place] CBC panel Auto (Bld)on 05-06 Erythrocyte distribution width (RBC) [Ratio] 16.9 % High 11.5-15.0 [facility] Comment on above: Order Comment: Speci men Type: BLOOD SPECIMENOrdering Facility: [facility] Address: [address] [place] [address] Performed By: #### 5 8410-2 ####[facility] LABCLIA [id number] [address] [place] Hematocrit (Bld) [Volume fraction] 23.7 % Low 36.0-46.0 [facility] Comment on above: Order Comment: Speci men Type: BLOOD SPECIMENOrdering Facility: [facility] Address: [address] [place] [address] Performed By: #### 5 8410-2 ####[facility] LABCLIA [id number] [place] [address] [place] Hemoglobin (Bld) [Mass/Vol] 7.7 g/dL Low 11.5-15.5 [facility] Comment on above: Order Comment: Speci men Type: BLOOD SPECIMENOrdering Facility: [facility] Address: [address] [place] [address] Performed By: #### 5 8410-2 ####[facility] LABIA [id number] [place] [address] [place] MCH (RBC) [Entitic mass] 33.0 pg Normal 26.0-34.0 [facility] Comment on above: Order Comment: Speci men Type: BLOOD SPECIMENOrdering Facility: [facility] Address: [address] [place] [address] Performed By: #### 5 8410-2 ####[facility] [id number] [place] [address] [place] MCHC (RBC) [Mass/Vol] 32.5 g/dL Normal 30.5-36.0 [facility] Comment on above: Order Comment: Speci men Type: BLOOD SPECIMENOrdering Facility: [facility] Address: [address] [place] [address] Performed By: #### 5 8410-2 ####[facility] LABIA [id number] [place] [address] [place] MCV (RBC) [Entitic vol] 101.7 fL High 80.0-100.0 [facility] Comment on above: Order Comment: Speci men Type: BLOOD SPECIMENOrdering Facility: [facility] Address: [address] [place] [address] Performed By: #### 5 8410-2 ####[facility] LABIA [id number] [place] [address] [place] Nucleated RBC (Bld) [#/Vol] 10*3/uL Normal <0.01 [facility] Comment on above: Order Comment: Speci men Type: BLOOD SPECIMENOrdering Facility: [facility] Address: [address] [place] [address] Performed By: #### 5 8410-2 ####[facility] LABCLIA [id number] [place] [address] [place] Platelet mean volume (Bld) [Entitic vol] 10.2 fL Normal 9.0-12.7 [facility] Comment on above: Order Comment: Speci men Type: BLOOD SPECIMENOrdering Facility: [facility] Address: [address] [place] [address] Performed By: #### 5 8410-2 ####[facility] LABCLIA [id number] [place] [address] [place] Platelets (Bld) [#/Vol] 179 10*3/uL Normal 150-400 [facility] Comment on above: Order Comment: Speci men Type: BLOOD SPECIMENOrdering Facility: [facility] Address: [address] [place] [address] Performed By: #### 5 8410-2 ####[facility] LABCLIA [id number] [place] [address] [place] RBC (Bld) [#/Vol] 2.33 10*6/uL Low 3.90-5.20 [facility] Comment on above: Order Comment: Speci men Type: BLOOD SPECIMENOrdering Facility: [facility] Address: [address] [place] [address] Performed By: #### 5 8410-2 ####[facility] LABCLIA [id number] [place] [address] [place] WBC (Bld) [#/Vol] 4.31 10*3/uL Normal 3.70-11.00 [facility] Comment on above: Order Comment: Speci men Type: BLOOD SPECIMENOrdering Facility: [facility] Address: [address] [place] [address] Performed By: #### 5 8410-2 ####[facility] LABIA [id number] [place] [address] [place] Erythrocyte distribution width (RBC) [Ratio] 17.6 % High 11.5-15.0 [facility] Comment on above: Order Comment: Speci men Type: BLOOD SPECIMENOrdering Facility: [facility] Address: [address] [place] [address] Performed By: #### 5 8410-2 ####[facility] LABIA [id number] [place] [address] [place] Hematocrit (Bld) [Volume fraction] 23.3 % Low 36.0-46.0 [facility] Comment on above: Order Comment: Speci men Type: BLOOD SPECIMENOrdering Facility: [facility] Address: [address] [place] [address] Performed By: #### 5 8410-2 ####[facility] LABIA [id number] [place] [address] [place] Hemoglobin (Bld) [Mass/Vol] 7.6 g/dL Low 11.5-15.5 [facility] Comment on above: Order Comment: Speci men Type: BLOOD SPECIMENOrdering Facility: [facility] Address: [address] [place] [address] Performed By: #### 5 8410-2 ####[facility] LABIA [id number] [place] [address] [place] MCH (RBC) [Entitic mass] 33.2 pg Normal 26.0-34.0 [facility] Comment on above: Order Comment: Speci men Type: BLOOD SPECIMENOrdering Facility: [facility] Address: [address] [place] [address] Performed By: #### 5 8410-2 ####[facility] LABCLIA [id number] [place] [address] [place] MCHC (RBC) [Mass/Vol] 32.6 g/dL Normal 30.5-36.0 [facility] Comment on above: Order Comment: Speci men Type: BLOOD SPECIMENOrdering Facility: [facility] Address: [address] [place] [address] Performed By: #### 5 8410-2 ####[facility] LABCLIA [id number] [place] [address] [place] MCV (RBC) [Entitic vol] 101.7 fL High 80.0-100.0 [facility] Comment on above: Order Comment: Speci men Type: BLOOD SPECIMENOrdering Facility: [facility] Address: [address] [place] [address] Performed By: #### 5 8410-2 ####[facility] LABIA [id number] [place] [address] [place] Nucleated RBC (Bld) [#/Vol] 10*3/uL Normal <0.01 [facility] Comment on above: Order Comment: Speci men Type: BLOOD SPECIMENOrdering Facility: [facility] Address: [address] [place] [address] Performed By: #### 5 8410-2 ####[facility] LABIA [id number] [place] [address] [place] Platelet mean volume (Bld) [Entitic vol] 10.0 fL Normal 9.0-12.7 [facility] Comment on above: Order Comment: Speci men Type: BLOOD SPECIMENOrdering Facility: [facility] Address: [address] [place] [address] Performed By: #### 5 8410-2 ####[facility] LABIA [id number] [place] [address] [place] Platelets (Bld) [#/Vol] 180 10*3/uL Normal 150-400 [facility] Comment on above: Order Comment: Speci men Type: BLOOD SPECIMENOrdering Facility: [facility] Address: [address] [place] [address] Performed By: #### 5 8410-2 ####[facility] LABCLIA [id number] [place] [address] [place] RBC (Bld) [#/Vol] 2.29 10*6/uL Low 3.90-5.20 [facility] Comment on above: Order Comment: Speci men Type: BLOOD SPECIMENOrdering Facility: [facility] Address: [address] [place] [address] Performed By: #### 5 8410-2 ####[facility] LABCLIA [id number] [place] [address] [place] WBC (Bld) [#/Vol] 4.63 10*3/uL Normal 3.70-11.00 [facility] Comment on above: Order Comment: Speci men Type: BLOOD SPECIMENOrdering Facility: [facility] Address: [address] [place] [address] Performed By: #### 5 8410-2 ####[facility] LABCLIA [id number] [place] [address] [place] CONSULTon 05-06-2024 CONSULT Normal [facility] Renal function 2000 panelon 05-06-2024 Albumin [Mass/Vol] 2.5 g/dL Low 3.9-4.9 [facility] Comment on above: Order Comment: Speci men Type: BLOOD SPECIMENOrdering Facility: [facility] Address: [address] [place] [address] Performed By: #### 2 4362-6 ####[facility] LABCLIA [id number] [place] [address] [place] Anion gap [Moles/Vol] 8 mmol/L Normal 8-15 [facility] Comment on above: Order Comment: Speci men Type: BLOOD SPECIMENOrdering Facility: [facility] Address: [address] [place] [address] Performed By: #### 2 4362-6 ####[facility] LABCLIA [id number] [place] [address] [place] Calcium [Mass/Vol] 9.4 mg/dL Normal 8.5-10.2 [facility] Comment on above: Order Comment: Speci men Type: BLOOD SPECIMENOrdering Facility: [facility] Address: [address] [place] [address] Performed By: #### 2 4362-6 ####[facility] LABCLIA [id number] [place] [address] [place] Chloride [Moles/Vol] 111 mmol/L High 98-107 [facility] Comment on above: Order Comment: Speci men Type: BLOOD SPECIMENOrdering Facility: [facility] Address: [address] [place] [address] Performed By: #### 2 4362-6 ####[facility] LABCLIA [id number] [place] [address] [place] CO2 [Moles/Vol] 20 mmol/L Low 22-30 [facility] Comment on above: Order Comment: Speci men Type: BLOOD SPECIMENOrdering Facility: [facility] Address: [address] [place] [address] Performed By: #### 2 4362-6 ####[facility] LABCLIA [id number] [place] [address] [place] Creatinine [Mass/Vol] 1.22 mg/dL High 0.58-0.96 [facility] Comment on above: Order Comment: Speci men Type: BLOOD SPECIMENOrdering Facility: [facility] Address: [address] [place] [address] Performed By: #### 2 4362-6 ####[facility] LABCLIA [id number] [place] [address] [place] Creatinine and Glomerular filtration rate.predicted panel (S/P/Bld) 51 mL/min/1.73m??? Low >=60 [facility] Comment on above: Order Comment: Speci eliceo Type: BLOOD SPECIMENOrdering Facility: [facility] Address: [address] [place] [address] Result Comment: Carmen mated Glomerular Filtration Rate [...] reflect actual GFR. Performed By: #### 2 4362-6 ####[facility] LABIA [id number] [place] [address] [place] Glucose [Mass/Vol] 105 mg/dL High 74-99 [facility] Comment on above: Order Comment: Paco fenton Type: BLOOD SPECIMENOrdering Facility: [facility] Address: [address] [place] [address] Result Comment: The [place] [employer] (ADA) provides guidance for cutoff values for fasting glucose and random glucose. The ADA defines fasting as no caloric intake for at least 8 hours. Fasting plasma glucose results between 100 to 125 mg/dL indicate increased risk for diabetes (prediabetes).Fasting plasma glucose results greater than or equal to 126 mg/dL meet the criteria for diagnosis of diabetes. In the absence of unequivocal hyperglycemia, results should be confirmed by repeat testing. In a patient with classic symptoms of hyperglycemia or hyperglycemic crisis, random plasma glucose results greater than or equal to 200 mg/dL meet the criteria for diagnosis of diabetes.Reference: Standards of Medical Care in Diabetes 2016, [place] [employer]. Diabetes Care. 2016.39(Suppl 1). Performed By: #### 2 4362-6 ####[facility] LABIA [id number] [place] [id number] [place] Phosphate [Mass/Vol] 2.7 mg/dL Normal 2.7-4.8 [facility] Comment on above: Order Comment: Speci men Type: BLOOD SPECIMENOrdering Facility: [facility] Address: [address] [place] [address] Performed By: #### 2 4362-6 ####[facility] LABCLIA [id number] [place] [address] [place] Potassium [Moles/Vol] 3.8 mmol/L Normal 3.7-5.1 [facility] Comment on above: Order Comment: Speci men Type: BLOOD SPECIMENOrdering Facility: [facility] Address: [address] [place] [address] Performed By: #### 2 4362-6 ####[facility] LABCLIA [id number] [place] [address] [place] Sodium [Moles/Vol] 139 mmol/L Normal 136-144 [facility] Comment on above: Order Comment: Speci men Type: BLOOD SPECIMENOrdering Facility: [facility] Address: [address] [place] [address] Performed By: #### 2 4362-6 ####[facility] LABCLIA [id number] [place] [address] [place] Urea nitrogen [Mass/Vol] 17 mg/dL Normal 7-21 [facility] Comment on above: Order Comment: Speci men Type: BLOOD SPECIMENOrdering Facility: [facility] Address: [address] [place] [address] Performed By: #### 2 4362-6 ####[facility] LABCLIA [id number] [place] [id number] [place] ALLIED HEALTHon 05-05-2024 ALLIED HEALTH Normal [facility] ALLIED HEALTH Normal [facility] CBC panel Auto (Bld)on 05-05 Erythrocyte distribution width (RBC) [Ratio] 17.5 % High 11.5-15.0 [facility] Comment on above: Order Comment: Speci men Type: BLOOD SPECIMENOrdering Facility: [facility] Address: [address] [place] [address] Performed By: #### 5 8410-2 ####[facility] LABIA [id number] [place] [address] [place] Hematocrit (Bld) [Volume fraction] 25.5 % Low 36.0-46.0 [facility] Comment on above: Order Comment: Speci men Type: BLOOD SPECIMENOrdering Facility: [facility] Address: [address] [place] [address] Performed By: #### 5 8410-2 ####[facility] LABIA [id number] [place] [address] [place] Hemoglobin (Bld) [Mass/Vol] 8.3 g/dL Low 11.5-15.5 [facility] Comment on above: Order Comment: Speci men Type: BLOOD SPECIMENOrdering Facility: [facility] Address: [address] [place] [address] Performed By: #### 5 8410-2 ####[facility] LABIA [id number] [place] [address] [place] MCH (RBC) [Entitic mass] 33.2 pg Normal 26.0-34.0 [facility] Comment on above: Order Comment: Speci men Type: BLOOD SPECIMENOrdering Facility: [facility] Address: [address] [place] [address] Performed By: #### 5 8410-2 ####[facility] LABIA [id number] [place] [address] [place] MCHC (RBC) [Mass/Vol] 32.5 g/dL Normal 30.5-36.0 [facility] Comment on above: Order Comment: Speci men Type: BLOOD SPECIMENOrdering Facility: [facility] Address: [address] [place] [address] Performed By: #### 5 8410-2 ####[facility] LABIA [id number] [place] [address] [place] MCV (RBC) [Entitic vol] 102.0 fL High 80.0-100.0 [facility] Comment on above: Order Comment: Speci men Type: BLOOD SPECIMENOrdering Facility: [facility] Address: [address] [place] [address] Performed By: #### 5 8410-2 ####[facility] LABIA [id number] [place] [address] [place] Nucleated RBC (Bld) [#/Vol] 10*3/uL Normal <0.01 [facility] Comment on above: Order Comment: Speci men Type: BLOOD SPECIMENOrdering Facility: [facility] Address: [address] [place] [address] Performed By: #### 5 8410-2 ####[facility] LABIA [id number] [place] [address] [place] Platelet mean volume (Bld) [Entitic vol] 9.7 fL Normal 9.0-12.7 [facility] Comment on above: Order Comment: Speci men Type: BLOOD SPECIMENOrdering Facility: [facility] Address: [address] [place] [address] Performed By: #### 5 8410-2 ####[facility] LABIA [id number] [place] [address] [place] Platelets (Bld) [#/Vol] 184 10*3/uL Normal 150-400 [facility] Comment on above: Order Comment: Speci men Type: BLOOD SPECIMENOrdering Facility: [facility] Address: [address] [place] [address] Performed By: #### 5 8410-2 ####[facility] LABCLIA [id number] [place] [address] [place] RBC (Bld) [#/Vol] 2.50 10*6/uL Low 3.90-5.20 [facility] Comment on above: Order Comment: Speci men Type: BLOOD SPECIMENOrdering Facility: [facility] Address: [address] [place] [address] Performed By: #### 5 8410-2 ####[facility] LABCLIA [id number] [place] [address] [place] WBC (Bld) [#/Vol] 6.39 10*3/uL Normal 3.70-11.00 [facility] Comment on above: Order Comment: Speci men Type: BLOOD SPECIMENOrdering Facility: [facility] Address: [address] [place] [address] Performed By: #### 5 8410-2 ####[facility] LABCLIA [id number] [place] [address] [place] Erythrocyte distribution width (RBC) [Ratio] 17.9 % High 11.5-15.0 [facility] Comment on above: Order Comment: Speci men Type: BLOOD SPECIMENOrdering Facility: [facility] Address: [address] [place] [address] Performed By: #### 5 8410-2, 34962-3 ####[facility] LABCLIA [id number] [place] [address] [place] Hematocrit (Bld) [Volume fraction] 27.6 % Low 36.0-46.0 [facility] Comment on above: Order Comment: Speci men Type: BLOOD SPECIMENOrdering Facility: [facility] Address: [address] [place] [address] Performed By: #### 5 8410-2, 51359-2 ####[facility] LABCLIA [id number] [place] [address] [place] Hemoglobin (Bld) [Mass/Vol] 9.0 g/dL Low 11.5-15.5 [facility] Comment on above: Order Comment: Speci men Type: BLOOD SPECIMENOrdering Facility: [facility] Address: [address] [place] [address] Performed By: #### 5 8410-2, 44602-2 ####[facility] LABCLIA [id number] [place] [address] [place] MCH (RBC) [Entitic mass] 32.6 pg Normal 26.0-34.0 [facility] Comment on above: Order Comment: Speci men Type: BLOOD SPECIMENOrdering Facility: [facility] Address: [address] [place] [address] Performed By: #### 5 8410-2, 46230-2 ####[facility] LABCLIA [id number] [place] [address] [place] MCHC (RBC) [Mass/Vol] 32.6 g/dL Normal 30.5-36.0 [facility] Comment on above: Order Comment: Speci men Type: BLOOD SPECIMENOrdering Facility: [facility] Address: [address] [place] [address] Performed By: #### 5 8410-2, 35451-5 ####[facility] LABCLIA [id number] [place] [address] [place] MCV (RBC) [Entitic vol] 100.0 fL Normal 80.0-100.0 [facility] Comment on above: Order Comment: Speci men Type: BLOOD SPECIMENOrdering Facility: [facility] Address: [address] [place] [address] Performed By: #### 5 8410-2, 40252-0 ####[facility] LABCLIA [id number] [place] [address] [place] Nucleated RBC (Bld) [#/Vol] 10*3/uL Normal <0.01 [facility] Comment on above: Order Comment: Speci men Type: BLOOD SPECIMENOrdering Facility: [facility] Address: [address] [place] [address] Performed By: #### 5 8410-2, 97071-3 ####[facility] LABCLIA [id number] [place] [address] [place] Platelet mean volume (Bld) [Entitic vol] 9.6 fL Normal 9.0-12.7 [facility] Comment on above: Order Comment: Speci men Type: BLOOD SPECIMENOrdering Facility: [facility] Address: [address] [place] [address] Performed By: #### 5 8410-2, 71826-6 ####[facility] LABCLIA [id number] [place] [address] [place] Platelets (Bld) [#/Vol] 200 10*3/uL Normal 150-400 [facility] Comment on above: Order Comment: Speci men Type: BLOOD SPECIMENOrdering Facility: [facility] Address: [address] [place] [address] Performed By: #### 5 8410-2, 55167-0 ####[facility] LABCLIA [id number] [place] [address] [place] RBC (Bld) [#/Vol] 2.76 10*6/uL Low 3.90-5.20 [facility] Comment on above: Order Comment: Speci men Type: BLOOD SPECIMENOrdering Facility: [facility] Address: [address] [place] [address] Performed By: #### 5 8410-2, 19680-3 ####[facility] LABCLIA [id number] [place] [address] [place] WBC (Bld) [#/Vol] 4.82 10*3/uL Normal 3.70-11.00 [facility] Comment on above: Order Comment: Speci men Type: BLOOD SPECIMENOrdering Facility: [facility] Address: [address] [place] [address] Performed By: #### 5 8410-2, 70964-7 ####[facility] LABCLIA [id number] [place] [address] [place] Penitas, Bld SerPl-sCncon Penitas [Moles/Vol] 1.2 mmol/L Normal 0.6-1.2 [facility] Comment on above: Order Comment: Speci men Type: BLOOD SPECIMENOrdering Facility: [facility] Address: [address] [place] [address] Result Comment: Refe rence ranges and high/low indicator flags are provided as general guidelines only. The treating physician must determine appropriate target levels/dosing based on the specific clinical situation. Performed By: #### 5 8410-2, 82721-6 ####[facility] LABCLIA [id number] [place] [address] [place] NURSING PROGon 05-05-2024 NURSING PROG Normal [facility] NUTRITIONon 05-05-2024 NUTRITION Normal [facility] Renal function 2000 panelon 05-05-2024 Albumin [Mass/Vol] 3.0 g/dL Low 3.9-4.9 [facility] Comment on above: Order Comment: Speci men Type: BLOOD SPECIMENOrdering Facility: [facility] Address: [address] [place] [address] Performed By: #### 2 4362-6 ####[facility] LABCLIA [id number] [place] [address] [place] Anion gap [Moles/Vol] 8 mmol/L Normal 8-15 [facility] Comment on above: Order Comment: Speci men Type: BLOOD SPECIMENOrdering Facility: [facility] Address: [address] [place] [address] Performed By: #### 2 4362-6 ####[facility] LABCLIA [id number] [place] [address] [place] Calcium [Mass/Vol] 10.1 mg/dL Normal 8.5-10.2 [facility] Comment on above: Order Comment: Speci men Type: BLOOD SPECIMENOrdering Facility: [facility] Address: [address] [place] [address] Performed By: #### 2 4362-6 ####[facility] LABCLIA [id number] [place] [address] [place] Chloride [Moles/Vol] 108 mmol/L High 98-107 [facility] Comment on above: Order Comment: Speci men Type: BLOOD SPECIMENOrdering Facility: [facility] Address: [address] [place] [address] Performed By: #### 2 4362-6 ####[facility] LABCLIA [id number] [place] [address] [place] CO2 [Moles/Vol] 20 mmol/L Low 22-30 [facility] Comment on above: Order Comment: Speci men Type: BLOOD SPECIMENOrdering Facility: [facility] Address: [address] [place] [address] Performed By: #### 2 4362-6 ####[facility] LABCLIA [id number] [place] [address] [place] Creatinine [Mass/Vol] 1.45 mg/dL High 0.58-0.96 [facility] Comment on above: Order Comment: Speci men Type: BLOOD SPECIMENOrdering Facility: [facility] Address: [address] [place] [address] Performed By: #### 2 4362-6 ####[facility] LABCLIA [id number] [place] [address] [place] Creatinine and Glomerular filtration rate.predicted panel (S/P/Bld) 41 mL/min/1.73m??? Low >=60 [facility] Comment on above: Order Comment: Speci men Type: BLOOD SPECIMENOrdering Facility: [facility] Address: [address] [place] [address] Result Comment: Carmen mated Glomerular Filtration Rate [...] reflect actual GFR. Performed By: #### 2 4362-6 ####[facility] LABCLIA [id number] [place] [address] [place] Glucose [Mass/Vol] 143 mg/dL High 74-99 [facility] Comment on above: Order Comment: Paco fenton Type: BLOOD SPECIMENOrdering Facility: [facility] Address: [address] [place] [address] Result Comment: The [place] Diabetes Association (ADA) provides guidance for cutoff values for fasting glucose and random glucose. The ADA defines fasting as no caloric intake for at least 8 hours. Fasting plasma glucose results between 100 to 125 mg/dL indicate increased risk for diabetes (prediabetes).Fasting plasma glucose results greater than or equal to 126 mg/dL meet the criteria for diagnosis of diabetes. In the absence of unequivocal hyperglycemia, results should be confirmed by repeat testing. In a patient with classic symptoms of hyperglycemia or hyperglycemic crisis, random plasma glucose results greater than or equal to 200 mg/dL meet the criteria for diagnosis of diabetes.Reference: Standards of Medical Care in Diabetes 2016, [place] [employer]. Diabetes Care. 2016.39(Suppl 1). Performed By: #### 2 4362-6 ####[facility] LABCLIA [id number] [place] [id number] [place] Phosphate [Mass/Vol] 3.0 mg/dL Normal 2.7-4.8 [facility] Comment on above: Order Comment: Paco fenton Type: BLOOD SPECIMENOrdering Facility: [facility] Address: [address] [place] [id number] Performed By: #### 2 4362-6 ####[facility] LABCLIA [id number] [place] [address] [place] Potassium [Moles/Vol] 3.7 mmol/L Normal 3.7-5.1 [facility] Comment on above: Order Comment: Speci men Type: BLOOD SPECIMENOrdering Facility: [facility] Address: [address] [place] [address] Performed By: #### 2 4362-6 ####[facility] LABCLIA [id number] [place] [address] [place] Sodium [Moles/Vol] 136 mmol/L Normal 136-144 [facility] Comment on above: Order Comment: Speci men Type: BLOOD SPECIMENOrdering Facility: [facility] Address: [address] [place] [address] Performed By: #### 2 4362-6 ####[facility] LABCLIA [id number] [place] [address] [place] Urea nitrogen [Mass/Vol] 18 mg/dL Normal 7-21 [facility] Comment on above: Order Comment: Speci men Type: BLOOD SPECIMENOrdering Facility: [facility] Address: [address] [place] [address] Performed By: #### 2 4362-6 ####[facility] LABCLIA [id number] [place] [address] [place] Albumin [Mass/Vol] 3.2 g/dL Low 3.9-4.9 [facility] Comment on above: Order Comment: Speci men Type: BLOOD SPECIMENOrdering Facility: [facility] Address: [address] [place] [address] Performed By: #### 2 4362-6 ####[facility] LABCLIA [id number] [place] [id number] [place] Anion gap [Moles/Vol] 9 mmol/L Normal 8-15 [facility] Comment on above: Order Comment: Speci men Type: BLOOD SPECIMENOrdering Facility: [facility] Address: [address] [place], [place] [address] Performed By: #### 2 4362-6 ####[facility] LABCLIA [id number] [place] [address] [place] Calcium [Mass/Vol] 10.3 mg/dL High 8.5-10.2 [facility] Comment on above: Order Comment: Speci men Type: BLOOD SPECIMENOrdering Facility: [facility] Address: [address] [place] [address] Performed By: #### 2 4362-6 ####[facility] LABCLIA [id number] [place] [address] [place] Chloride [Moles/Vol] 108 mmol/L High 98-107 [facility] Comment on above: Order Comment: Speci men Type: BLOOD SPECIMENOrdering Facility: [facility] Address: [address] [place] [address] Performed By: #### 2 4362-6 ####[facility] LABCLIA [id number] [place] [address] [place] CO2 [Moles/Vol] 20 mmol/L Low 22-30 [facility] Comment on above: Order Comment: Speci men Type: BLOOD SPECIMENOrdering Facility: [facility] Address: [address] [place], [place] [address] Performed By: #### 2 4362-6 ####[facility] LABCLIA [id number] [facility] [place] [place] [address] [place] Creatinine [Mass/Vol] 1.46 mg/dL High 0.58-0.96 [facility] Comment on above: Order Comment: Speci men Type: BLOOD SPECIMENOrdering Facility: [facility] Address: [address] [place], [place] [address] Performed By: #### 2 4362-6 ####[facility] LABCLIA [id number] [place] [address] [place] Creatinine and Glomerular filtration rate.predicted panel (S/P/Bld) 41 mL/min/1.73m??? Low >=60 [facility] Comment on above: Order Comment: Paco fenton Type: BLOOD SPECIMENOrdering Facility: [facility] Address: [address] [place] [address] Result Comment: Carmen mated Glomerular Filtration Rate [...] reflect actual GFR. Performed By: #### 2 4362-6 ####[facility] LABCLIA [id number] [place] [address] [place] Glucose [Mass/Vol] 129 mg/dL High 74-99 [facility] Comment on above: Order Comment: Paco fenton Type: BLOOD SPECIMENOrdering Facility: [facility] Address: [address] [place] [address] Result Comment: The [place] Diabetes Association (ADA) provides guidance for cutoff values for fasting glucose and random glucose. The ADA defines fasting as no caloric intake for at least 8 hours. Fasting plasma glucose results between 100 to 125 mg/dL indicate increased risk for diabetes (prediabetes).Fasting plasma glucose results greater than or equal to 126 mg/dL meet the criteria for diagnosis of diabetes. In the absence of unequivocal hyperglycemia, results should be confirmed by repeat testing. In a patient with classic symptoms of hyperglycemia or hyperglycemic crisis, random plasma glucose results greater than or equal to 200 mg/dL meet the criteria for diagnosis of diabetes.Reference: Standards of Medical Care in Diabetes 2016, [place] [employer]. Diabetes Care. 2016.39(Suppl 1). Performed By: #### 2 4362-6 ####[facility] LABCLIA [id number] [place] [address] [place] Phosphate [Mass/Vol] 2.9 mg/dL Normal 2.7-4.8 [facility] Comment on above: Order Comment: Speci men Type: BLOOD SPECIMENOrdering Facility: [facility] Address: [address] [place], [place] [address] Performed By: #### 2 4362-6 ####[facility] LABCLIA [id number] [place] [address] [place] Potassium [Moles/Vol] 4.1 mmol/L Normal 3.7-5.1 [facility] Comment on above: Order Comment: Speci men Type: BLOOD SPECIMENOrdering Facility: [facility] Address: [address] [place] [address] Performed By: #### 2 4362-6 ####[facility] LABCLIA [id number] [place] [address] [place] Sodium [Moles/Vol] 137 mmol/L Normal 136-144 [facility] Comment on above: Order Comment: Speci men Type: BLOOD SPECIMENOrdering Facility: [facility] Address: [address] [place], [place] [address] Performed By: #### 2 4362-6 ####[facility] LABCLIA [id number] [place] [address] [place] Urea nitrogen [Mass/Vol] 18 mg/dL Normal 7-21 [facility] Comment on above: Order Comment: Speci men Type: BLOOD SPECIMENOrdering Facility: [facility] Address: [address] [place] [address] Performed By: #### 2 4362-6 ####[facility] LABCLIA [id number] [place] [address] [place] SOCIAL WORKon 05-05-2024 SOCIAL WORK Normal [facility] THERAPY NTon 05-05-2024 THERAPY NT Normal [facility] BRIEF OP NOTon 05-04-2024 BRIEF OP NOT Normal [facility] CASE MANAGEMon 05-04-2024 CASE MANAGEM Normal [facility] CBC panel Auto (Bld)on 05-04 Erythrocyte distribution width (RBC) [Ratio] 17.9 % High 11.5-15.0 [facility] Comment on above: Order Comment: Speci men Type: BLOOD SPECIMENOrdering Facility: [facility] Address: [address] [place] [address] Performed By: #### 5 8410-2 ####[facility] LABIA [id number] [place] [address] [place] Hematocrit (Bld) [Volume fraction] 28.2 % Low 36.0-46.0 [facility] Comment on above: Order Comment: Speci men Type: BLOOD SPECIMENOrdering Facility: [facility] Address: [address] [place] [address] Performed By: #### 5 8410-2 ####[facility] LABIA [id number] [place] [address] [place] Hemoglobin (Bld) [Mass/Vol] 9.0 g/dL Low 11.5-15.5 [facility] Comment on above: Order Comment: Speci men Type: BLOOD SPECIMENOrdering Facility: [facility] Address: [address] [place] [address] Performed By: #### 5 8410-2 ####[facility] LABIA [id number] [place] [address] [place] MCH (RBC) [Entitic mass] 32.8 pg Normal 26.0-34.0 [facility] Comment on above: Order Comment: Speci men Type: BLOOD SPECIMENOrdering Facility: [facility] Address: [address] [place] [address] Performed By: #### 5 8410-2 ####[facility] LABIA [id number] [place] [address] [place] MCHC (RBC) [Mass/Vol] 31.9 g/dL Normal 30.5-36.0 [facility] Comment on above: Order Comment: Speci men Type: BLOOD SPECIMENOrdering Facility: [facility] Address: [address] [place] [address] Performed By: #### 5 8410-2 ####[facility] LABIA [id number] [place] [address] [place] MCV (RBC) [Entitic vol] 102.9 fL High 80.0-100.0 [facility] Comment on above: Order Comment: Speci men Type: BLOOD SPECIMENOrdering Facility: [facility] Address: [address] [place] [address] Performed By: #### 5 8410-2 ####[facility] LABIA [id number] [place] [address] [place] Nucleated RBC (Bld) [#/Vol] 10*3/uL Normal <0.01 [facility] Comment on above: Order Comment: Speci men Type: BLOOD SPECIMENOrdering Facility: [facility] Address: [address] [place] [address] Performed By: #### 5 8410-2 ####[facility] LABIA [id number] [place] [address] [place] Platelet mean volume (Bld) [Entitic vol] 10.0 fL Normal 9.0-12.7 [facility] Comment on above: Order Comment: Speci men Type: BLOOD SPECIMENOrdering Facility: [facility] Address: [address] [place] [address] Performed By: #### 5 8410-2 ####[facility] LABIA [id number] [place] [address] [place] Platelets (Bld) [#/Vol] 201 10*3/uL Normal 150-400 [facility] Comment on above: Order Comment: Speci men Type: BLOOD SPECIMENOrdering Facility: [facility] Address: [address] [place] [address] Performed By: #### 5 8410-2 ####[facility] LABCLIA [id number] [place] [address] [place] RBC (Bld) [#/Vol] 2.74 10*6/uL Low 3.90-5.20 [facility] Comment on above: Order Comment: Speci men Type: BLOOD SPECIMENOrdering Facility: [facility] Address: [address] [place] [address] Performed By: #### 5 8410-2 ####[facility] LABIA [id number] [place] [address] [place] WBC (Bld) [#/Vol] 5.08 10*3/uL Normal 3.70-11.00 [facility] Comment on above: Order Comment: Speci men Type: BLOOD SPECIMENOrdering Facility: [facility] Address: [address] [place] [address] Performed By: #### 5 8410-2 ####[facility] LABIA [id number] [place] [address] [place] Erythrocyte distribution width (RBC) [Ratio] 18.0 % High 11.5-15.0 [facility] Comment on above: Order Comment: Speci men Type: BLOOD SPECIMENOrdering Facility: [facility] Address: [address] [place] [address] Performed By: #### 5 8410-2 ####[facility] LABIA [id number] [place] [address] [place] Hematocrit (Bld) [Volume fraction] 24.8 % Low 36.0-46.0 [facility] Comment on above: Order Comment: Speci men Type: BLOOD SPECIMENOrdering Facility: [facility] Address: [address] [place] [address] Performed By: #### 5 8410-2 ####[facility] LABIA [id number] [place] [address] [place] Hemoglobin (Bld) [Mass/Vol] 8.1 g/dL Low 11.5-15.5 [facility] Comment on above: Order Comment: Speci men Type: BLOOD SPECIMENOrdering Facility: [facility] Address: [address] [place] [address] Performed By: #### 5 8410-2 ####[facility] LABIA [id number] [place] [address] [place] MCH (RBC) [Entitic mass] 33.5 pg Normal 26.0-34.0 [facility] Comment on above: Order Comment: Speci men Type: BLOOD SPECIMENOrdering Facility: [facility] Address: [address] [place] [address] Performed By: #### 5 8410-2 ####[facility] LABIA [id number] [address] [place] MCHC (RBC) [Mass/Vol] 32.7 g/dL Normal 30.5-36.0 [facility] Comment on above: Order Comment: Speci men Type: BLOOD SPECIMENOrdering Facility: [facility] Address: [address] [place] [address] Performed By: #### 5 8410-2 ####[facility] LABIA [id number] [place] [address] [place] MCV (RBC) [Entitic vol] 102.5 fL High 80.0-100.0 [facility] Comment on above: Order Comment: Speci men Type: BLOOD SPECIMENOrdering Facility: [facility] Address: [address] [place] [address] Performed By: #### 5 8410-2 ####[facility] LABIA [id number] [place] [address] [place] Nucleated RBC (Bld) [#/Vol] 10*3/uL Normal <0.01 [facility] Comment on above: Order Comment: Speci men Type: BLOOD SPECIMENOrdering Facility: [facility] Address: [address] [place] [address] Performed By: #### 5 8410-2 ####[facility] LABIA [id number] [place] [address] [place] Platelet mean volume (Bld) [Entitic vol] 9.8 fL Normal 9.0-12.7 [facility] Comment on above: Order Comment: Speci men Type: BLOOD SPECIMENOrdering Facility: [facility] Address: [address] [place] [address] Performed By: #### 5 8410-2 ####[facility] LABIA [id number] [place] [address] [place] Platelets (Bld) [#/Vol] 177 10*3/uL Normal 150-400 [facility] Comment on above: Order Comment: Speci men Type: BLOOD SPECIMENOrdering Facility: [facility] Address: [address] [place] [address] Performed By: #### 5 8410-2 ####[facility] LABIA [id number] [place] [address] [place] RBC (Bld) [#/Vol] 2.42 10*6/uL Low 3.90-5.20 [facility] Comment on above: Order Comment: Speci men Type: BLOOD SPECIMENOrdering Facility: [facility] Address: [address] [place] [address] Performed By: #### 5 8410-2 ####[facility] LABIA [id number] [place] [address] [place] WBC (Bld) [#/Vol] 3.81 10*3/uL Normal 3.70-11.00 [facility] Comment on above: Order Comment: Speci men Type: BLOOD SPECIMENOrdering Facility: [facility] Address: [address] [place] [address] Performed By: #### 5 8410-2 ####[facility] LABCLIA [id number] [address] [address] [place] CONSULTon 05-04-2024 CONSULT Normal [facility] CONSULT Normal [facility] IR FILTER PLACEMENT IVCon IR FILTER PLACEMENT IVC Normal [facility] NURSING PROGon 05-04-2024 NURSING PROG Normal [facility] PT EDon 05-04-2024 PT ED Normal [facility] Renal function 2000 panelon 05-04-2024 Albumin [Mass/Vol] 2.6 g/dL Low 3.9-4.9 [facility] Comment on above: Order Comment: Speci men Type: BLOOD SPECIMENOrdering Facility: [facility] Address: [address] [place] [address] Performed By: #### 2 4362-6 ####[facility] LABCLIA [id number] [place] [address] [place] Anion gap [Moles/Vol] 8 mmol/L Normal 8-15 [facility] Comment on above: Order Comment: Speci men Type: BLOOD SPECIMENOrdering Facility: [facility] Address: [address] [place] [address] Performed By: #### 2 4362-6 ####[facility] LABCLIA [id number] [place] [address] [place] Calcium [Mass/Vol] 9.4 mg/dL Normal 8.5-10.2 [facility] Comment on above: Order Comment: Speci men Type: BLOOD SPECIMENOrdering Facility: [facility] Address: [address] [place] [address] Performed By: #### 2 4362-6 ####[facility] LABCLIA [id number] [address] [address] [place] Chloride [Moles/Vol] 112 mmol/L High 98-107 [facility] Comment on above: Order Comment: Speci men Type: BLOOD SPECIMENOrdering Facility: [facility] Address: [address] [place] [address] Performed By: #### 2 4362-6 ####[facility] LABCLIA [id number] [place] [address] [place] CO2 [Moles/Vol] 20 mmol/L Low 22-30 [facility] Comment on above: Order Comment: Speci men Type: BLOOD SPECIMENOrdering Facility: [facility] Address: [address] [place] [address] Performed By: #### 2 4362-6 ####[facility] LABCLIA [id number] [place] [address] [place] Creatinine [Mass/Vol] 0.93 mg/dL Normal 0.58-0.96 [facility] Comment on above: Order Comment: Speci men Type: BLOOD SPECIMENOrdering Facility: [facility] Address: [address] [place] [address] Performed By: #### 2 4362-6 ####[facility] LABIA [id number] [place] [address] [place] Creatinine and Glomerular filtration rate.predicted panel (S/P/Bld) 71 mL/min/1.73m??? Normal >=60 [facility] Comment on above: Order Comment: Speci men Type: BLOOD SPECIMENOrdering Facility: [facility] Address: [address] [place] [address] Result Comment: Carmen mated Glomerular Filtration Rate [...] reflect actual GFR. Performed By: #### 2 4362-6 ####[facility] LABCLIA [id number] [place] [address] [place] Glucose [Mass/Vol] 166 mg/dL High 74-99 [facility] Comment on above: Order Comment: Speci men Type: BLOOD SPECIMENOrdering Facility: [facility] Address: [address] [place], [place] [address] Result Comment: The [place] Diabetes Association (ADA) provides guidance for cutoff values for fasting glucose and random glucose. The ADA defines fasting as no caloric intake for at least 8 hours. Fasting plasma glucose results between 100 to 125 mg/dL indicate increased risk for diabetes (prediabetes).Fasting plasma glucose results greater than or equal to 126 mg/dL meet the criteria for diagnosis of diabetes. In the absence of unequivocal hyperglycemia, results should be confirmed by repeat testing. In a patient with classic symptoms of hyperglycemia or hyperglycemic crisis, random plasma glucose results greater than or equal to 200 mg/dL meet the criteria for diagnosis of diabetes.Reference: Standards of Medical Care in Diabetes 2016, [place] [employer]. Diabetes Care. 2016.39(Suppl 1). Performed By: #### 2 4362-6 ####[facility] LABCLIA [id number] [place] [address] [place] Phosphate [Mass/Vol] 1.7 mg/dL Low 2.7-4.8 [facility] Comment on above: Order Comment: Neelimai men Type: BLOOD SPECIMENOrdering Facility: [facility] Address: [address] [place], [place] [address] Performed By: #### 2 4362-6 ####[facility] LABCLIA [id number] [place] [address] [place] Potassium [Moles/Vol] 3.5 mmol/L Low 3.7-5.1 [facility] Comment on above: Order Comment: Speci men Type: BLOOD SPECIMENOrdering Facility: [facility] Address: [address] [place], [place] [address] Performed By: #### 2 4362-6 ####[facility] LABCLIA [id number] [place] [address] [place] Sodium [Moles/Vol] 140 mmol/L Normal 136-144 [facility] Comment on above: Order Comment: Speci men Type: BLOOD SPECIMENOrdering Facility: [facility] Address: [address] [place] [address] Performed By: #### 2 4362-6 ####[facility] LABCLIA [id number] [address] [address] [place] Urea nitrogen [Mass/Vol] 9 mg/dL Normal 7-21 [facility] Comment on above: Order Comment: Speci men Type: BLOOD SPECIMENOrdering Facility: [facility] Address: [address] [place] [address] Performed By: #### 2 4362-6 ####[facility] LABCLIA [id number] [place] [address] [place] THERAPY NTon 05-04-2024 THERAPY NT Normal [facility] US DVT LOWER BILon US DVT LOWER BUDDY Normal [facility] ALLIED HEALTHon 05-03-2024 ALLIED HEALTH Normal [facility] CASE MGT INIT ASSESon 2023 CASE MGT INIT ASSES Normal [facility] CBC panel Auto (Bld)on 05-03 Erythrocyte distribution width (RBC) [Ratio] 18.4 % High 11.5-15.0 [facility] Comment on above: Order Comment: Speci men Type: BLOOD SPECIMENOrdering Facility: [facility] Address: [address] [place] [address] Performed By: #### 5 8410-2 ####[facility] LABCLIA [id number] [place] [address] [place] Hematocrit (Bld) [Volume fraction] 26.9 % Low 36.0-46.0 [facility] Comment on above: Order Comment: Speci men Type: BLOOD SPECIMENOrdering Facility: [facility] Address: [address] [place] [address] Performed By: #### 5 8410-2 ####[facility] LABCLIA [id number] [place] [address] [place] Hemoglobin (Bld) [Mass/Vol] 8.8 g/dL Low 11.5-15.5 [facility] Comment on above: Order Comment: Speci men Type: BLOOD SPECIMENOrdering Facility: [facility] Address: [address] [place] [address] Performed By: #### 5 8410-2 ####[facility] [id number] [place] [address] [place] MCH (RBC) [Entitic mass] 32.7 pg Normal 26.0-34.0 [facility] Comment on above: Order Comment: Speci men Type: BLOOD SPECIMENOrdering Facility: [facility] Address: [address] [place] [address] Performed By: #### 5 8410-2 ####[facility] [id number] [address] [place] MCHC (RBC) [Mass/Vol] 32.7 g/dL Normal 30.5-36.0 [facility] Comment on above: Order Comment: Speci men Type: BLOOD SPECIMENOrdering Facility: [facility] Address: [address] [place] [address] Performed By: #### 5 8410-2 ####[facility] [id number] [place] [address] [place] MCV (RBC) [Entitic vol] 100.0 fL Normal 80.0-100.0 [facility] Comment on above: Order Comment: Speci men Type: BLOOD SPECIMENOrdering Facility: [facility] Address: [address] [place] [address] Performed By: #### 5 8410-2 ####[facility] [id number] [place] [address] [place] Nucleated RBC (Bld) [#/Vol] 10*3/uL Normal <0.01 [facility] Comment on above: Order Comment: Speci men Type: BLOOD SPECIMENOrdering Facility: [facility] Address: [address] [place] [address] Performed By: #### 5 8410-2 ####[facility] LABIA [id number] [place] [address] [place] Platelet mean volume (Bld) [Entitic vol] 9.5 fL Normal 9.0-12.7 [facility] Comment on above: Order Comment: Speci men Type: BLOOD SPECIMENOrdering Facility: [facility] Address: [address] [place] [address] Performed By: #### 5 8410-2 ####[facility] LABIA [id number] [place] [address] [place] Platelets (Bld) [#/Vol] 191 10*3/uL Normal 150-400 [facility] Comment on above: Order Comment: Speci men Type: BLOOD SPECIMENOrdering Facility: [facility] Address: [address] [place] [address] Performed By: #### 5 8410-2 ####[facility] [id number] [place] [address] [place] RBC (Bld) [#/Vol] 2.69 10*6/uL Low 3.90-5.20 [facility] Comment on above: Order Comment: Speci men Type: BLOOD SPECIMENOrdering Facility: [facility] Address: [address] [place] [address] Performed By: #### 5 8410-2 ####[facility] LABIA [id number] [place] [address] [place] WBC (Bld) [#/Vol] 4.40 10*3/uL Normal 3.70-11.00 [facility] Comment on above: Order Comment: Speci men Type: BLOOD SPECIMENOrdering Facility: [facility] Address: [address] [place] [address] Performed By: #### 5 8410-2 ####[facility] LABCLIA [id number] [place] [address] [place] Erythrocyte distribution width (RBC) [Ratio] 19.0 % High 11.5-15.0 [facility] Comment on above: Order Comment: Speci men Type: BLOOD SPECIMENOrdering Facility: [facility] Address: [address] [place] [address] Performed By: #### 5 8410-2 ####[facility] LABIA [id number] [place] [address] [place] Hematocrit (Bld) [Volume fraction] 24.5 % Low 36.0-46.0 [facility] Comment on above: Order Comment: Speci men Type: BLOOD SPECIMENOrdering Facility: [facility] Address: [address] [place] [address] Performed By: #### 5 8410-2 ####[facility] LABIA [id number] [place] [address] [place] Hemoglobin (Bld) [Mass/Vol] 8.1 g/dL Low 11.5-15.5 [facility] Comment on above: Order Comment: Speci men Type: BLOOD SPECIMENOrdering Facility: [facility] Address: [address] [place] [address] Performed By: #### 5 8410-2 ####[facility] LABCLIA [id number] [place] [address] [place] MCH (RBC) [Entitic mass] 33.5 pg Normal 26.0-34.0 [facility] Comment on above: Order Comment: Speci men Type: BLOOD SPECIMENOrdering Facility: [facility] Address: [address] [place] [address] Performed By: #### 5 8410-2 ####[facility] LABCLIA [id number] [place] [address] [place] MCHC (RBC) [Mass/Vol] 33.1 g/dL Normal 30.5-36.0 [facility] Comment on above: Order Comment: Speci men Type: BLOOD SPECIMENOrdering Facility: [facility] Address: [address] [place] [address] Performed By: #### 5 8410-2 ####[facility] LABCLIA [id number] [place] [address] [place] MCV (RBC) [Entitic vol] 101.2 fL High 80.0-100.0 [facility] Comment on above: Order Comment: Speci men Type: BLOOD SPECIMENOrdering Facility: [facility] Address: [address] [place] [address] Performed By: #### 5 8410-2 ####[facility] LABCLIA [id number] [place] [address] [place] Nucleated RBC (Bld) [#/Vol] 10*3/uL Normal <0.01 [facility] Comment on above: Order Comment: Speci men Type: BLOOD SPECIMENOrdering Facility: [facility] Address: [address] [place] [address] Performed By: #### 5 8410-2 ####[facility] LABCLIA [id number] [place] [address] [place] Platelet mean volume (Bld) [Entitic vol] 9.3 fL Normal 9.0-12.7 [facility] Comment on above: Order Comment: Speci men Type: BLOOD SPECIMENOrdering Facility: [facility] Address: [address] [place] [address] Performed By: #### 5 8410-2 ####[facility] LABCLIA [id number] [place] [address] [place] Platelets (Bld) [#/Vol] 182 10*3/uL Normal 150-400 [facility] Comment on above: Order Comment: Speci men Type: BLOOD SPECIMENOrdering Facility: [facility] Address: [address] [place] [address] Performed By: #### 5 8410-2 ####[facility] LABCLIA [id number] [place] [address] [place] RBC (Bld) [#/Vol] 2.42 10*6/uL Low 3.90-5.20 [facility] Comment on above: Order Comment: Speci men Type: BLOOD SPECIMENOrdering Facility: [facility] Address: [address] [place] [address] Performed By: #### 5 8410-2 ####[facility] LABCLIA [id number] [place] [address] [place] WBC (Bld) [#/Vol] 3.56 10*3/uL Low 3.70-11.00 [facility] Comment on above: Order Comment: Speci men Type: BLOOD SPECIMENOrdering Facility: [facility] Address: [address] [place] [address] Performed By: #### 5 8410-2 ####[facility] LABCLIA [id number] [place] [address] [place] CONFIRM BLOOD TYPEon 024 ABO A Normal [facility] Comment on above: Order Comment: Speci men Type: BLOOD SPECIMENOrdering Facility: [facility] Address: [address] [place] [address] Performed By: #### C ONABO ####[facility] BLOOD BANKCLIA [id number] [place] [address] [place] Rh Nom (Bld) Positive Normal [facility] Comment on above: Order Comment: Speci men Type: BLOOD SPECIMENOrdering Facility: [facility] Address: [address] [place] [address] Performed By: #### C ONABO ####[facility] BLOOD BANKCLIA [id number] [address] [address] [place] CONSULTon 05-03-2024 CONSULT Normal [facility] CONSULT Normal [facility] Comprehensive metabolic 2000 panelon 05-03-2024 Albumin [Mass/Vol] 2.9 g/dL Low 3.9-4.9 [facility] Comment on above: Order Comment: Speci men Type: BLOOD SPECIMENOrdering Facility: [facility] Address: [address] [place] [address] Performed By: #### 2 4323-8, HSTNT, 2132-05 ####[facility] LABCLIA [id number] [place] [address] [place] ALP [Catalytic activity/Vol] 70 U/L Normal 34-123 [facility] Comment on above: Order Comment: Speci men Type: BLOOD SPECIMENOrdering Facility: [facility] Address: [address] [place] [address] Performed By: #### 2 4323-8, HSTNT, 2132-05 ####[facility] LABCLIA [id number] [place] [address] [place] ALT [Catalytic activity/Vol] 9 U/L Normal 7-38 [facility] Comment on above: Order Comment: Speci men Type: BLOOD SPECIMENOrdering Facility: [facility] Address: [address] [place] [address] Performed By: #### 2 4323-8, HSTNT, 2132-05 ####[facility] LABCLIA [id number] [address] [address] [place] Anion gap [Moles/Vol] 9 mmol/L Normal 8-15 [facility] Comment on above: Order Comment: Speci men Type: BLOOD SPECIMENOrdering Facility: [facility] Address: [address] [place] [address] Performed By: #### 2 4323-8, HSTNT, 2132-05 ####[facility] LABCLIA [id number] [address] [address] [place] AST [Catalytic activity/Vol] 25 U/L Normal 13-35 [facility] Comment on above: Order Comment: Speci men Type: BLOOD SPECIMENOrdering Facility: [facility] Address: [address] [place] [address] Performed By: #### 2 4323-8, HSTNT, 2132-05 ####[facility] LABCLIA [id number] [place] [address] [place] Bilirubin [Mass/Vol] 0.5 mg/dL Normal 0.2-1.3 [facility] Comment on above: Order Comment: Speci men Type: BLOOD SPECIMENOrdering Facility: [facility] Address: [address] [place] [address] Performed By: #### 2 4323-8, HSTNT, 2132-05 ####[facility] LABIA [id number] [place] [address] [place] Calcium [Mass/Vol] 9.2 mg/dL Normal 8.5-10.2 [facility] Comment on above: Order Comment: Speci men Type: BLOOD SPECIMENOrdering Facility: [facility] Address: [address] [place] [address] Performed By: #### 2 4323-8, HSTNT, 2132-05 ####[facility] LABCLIA [id number] [place] [id number] [place] Chloride [Moles/Vol] 113 mmol/L High 98-107 [facility] Comment on above: Order Comment: Speci men Type: BLOOD SPECIMENOrdering Facility: [facility] Address: [address] [place] [address] Performed By: #### 2 4323-8, HSTNT, 2132-05 ####[facility] LABCLIA [id number] [place] [id number] [place] CO2 [Moles/Vol] 22 mmol/L Normal 22-30 [facility] Comment on above: Order Comment: Neelimai men Type: BLOOD SPECIMENOrdering Facility: [facility] Address: [address] [place] [address] Performed By: #### 2 4323-8, HSTNT, 2132-05 ####[facility] LABCLIA [id number] [place] [address] [place] Creatinine [Mass/Vol] 0.88 mg/dL Normal 0.58-0.96 [facility] Comment on above: Order Comment: Neelimai men Type: BLOOD SPECIMENOrdering Facility: [facility] Address: [address] [place] [address] Performed By: #### 2 4323-8, HSTNT, 2132-05 ####[facility] LABCLIA [id number] [place] [address] [place] Creatinine and Glomerular filtration rate.predicted panel (S/P/Bld) 75 mL/min/1.73m??? Normal >=60 [facility] Comment on above: Order Comment: Paco fenton Type: BLOOD SPECIMENOrdering Facility: [facility] Address: [address] [place] [address] Result Comment: Carmen mated Glomerular Filtration Rate [...] reflect actual GFR. Performed By: #### 2 4323-8, HSTNT, 2132-05 ####[facility] LABCLIA [id number] [place] [address] [place] Glucose [Mass/Vol] 134 mg/dL High 74-99 [facility] Comment on above: Order Comment: Neelimai men Type: BLOOD SPECIMENOrdering Facility: [facility] Address: [address] [place] [address] Result Comment: The [place] [employer] (ADA) provides guidance for cutoff values for fasting glucose and random glucose. The ADA defines fasting as no caloric intake for at least 8 hours. Fasting plasma glucose results between 100 to 125 mg/dL indicate increased risk for diabetes (prediabetes).Fasting plasma glucose results greater than or equal to 126 mg/dL meet the criteria for diagnosis of diabetes. In the absence of unequivocal hyperglycemia, results should be confirmed by repeat testing. In a patient with classic symptoms of hyperglycemia or hyperglycemic crisis, random plasma glucose results greater than or equal to 200 mg/dL meet the criteria for diagnosis of diabetes.Reference: Standards of Medical Care in Diabetes 2016, [place] [employer]. Diabetes Care. 2016.39(Suppl 1). Performed By: #### 2 4323-8, HSTNT, 2132-05 ####[facility] LABCLIA [id number] [place] [address] [place] Potassium [Moles/Vol] 3.3 mmol/L Low 3.7-5.1 [facility] Comment on above: Order Comment: Speci men Type: BLOOD SPECIMENOrdering Facility: [facility] Address: [address] [place] [address] Performed By: #### 2 4323-8, HSTNT, 2132-05 ####[facility] LABCLIA [id number] [place] [address] [place] Protein [Mass/Vol] 5.4 g/dL Low 6.3-8.0 [facility] Comment on above: Order Comment: Speci men Type: BLOOD SPECIMENOrdering Facility: [facility] Address: [address] [place] [address] Performed By: #### 2 4323-8, HSTNT, 2132-05 ####[facility] LABCLIA [id number] [place] [id number] [place] Sodium [Moles/Vol] 144 mmol/L Normal 136-144 [facility] Comment on above: Order Comment: Speci men Type: BLOOD SPECIMENOrdering Facility: [facility] Address: [address] [place] [address] Performed By: #### 2 4323-8, HSTNT, 2132-05 ####[facility] LABCLIA [id number] [address] [address] [place] Urea nitrogen [Mass/Vol] 15 mg/dL Normal 7-21 [facility] Comment on above: Order Comment: Speci men Type: BLOOD SPECIMENOrdering Facility: [facility] Address: [address] [place] [address] Performed By: #### 2 4323-8, HSTNT, 2132-05 ####[facility] LABCLIA [id number] [place] [id number] [place] ECG COMPLETEon 05-03-2024 ECG COMPLETE Normal [facility] HIGH SENSITIVITY TROPONIN To n 05-03-2024 Troponin T.cardiac High sensitivity method [Mass/Vol] 109 ng/L High <12 [facility] Comment on above: Order Comment: Speci men Type: BLOOD SPECIMENOrdering Facility: [facility] Address: [address] [place] [address] Performed By: #### H STNT ####[facility] LABCLIA [id number] [place] [id number] [place] Troponin T.cardiac High sensitivity method [Mass/Vol] 114 ng/L High <12 [facility] Comment on above: Order Comment: Speci men Type: BLOOD SPECIMENOrdering Facility: [facility] Address: [address] [place], [place] [address] Performed By: #### 2 4323-8, HSTNT, 2132-05 ####[facility] LABCLIA [id number] [address] [address] [place] HISTORY PHYSICALon HISTORY PHYSICAL Normal [facility] HISTORY PHYSICAL Normal [facility] HISTORY PHYSICAL Normal [facility] Hematocrit Auto (Bld) [Volum e fraction]on 05-03-2024 Hematocrit (Bld) [Volume fraction] 22.6 % Low 36.0-46.0 [facility] Comment on above: Order Comment: Paco fenton Type: BLOOD SPECIMENOrdering Facility: [facility] Address: [address] [place] [address] Performed By: #### 4 544-3 ####[facility] [id number] [place] [address] [place] Pen[place], Bld SerPl-sCncon Penitas [Moles/Vol] 0.1 mmol/L Low 0.6-1.2 [facility] Comment on above: Order Comment: Paco fenton Type: BLOOD SPECIMENOrdering Facility: [facility] Address: [address] [place] [address] Result Comment: Refe rence ranges and high/low indicator flags are provided as general guidelines only. The treating physician must determine appropriate target levels/dosing based on the specific clinical situation. Performed By: #### 1 4334-7, 54293-1 ####[facility] [id number] [place] [address] [place] NURSING PROGon 05-03-2024 NURSING PROG Normal [facility] PT panel Coag (PPP)on 2023 INR Coag (PPP) [Relative time] 1.0 {INR} Normal 0.9-1.3 [facility] Comment on above: Order Comment: Paco fenton Type: BLOOD SPECIMENOrdering Facility: [facility] Address: [address] [place] [address] Result Comment: Nai min K Antagonist (VKA) Therapeutic Range: INR 2 to 3 (Target INR of 2.5)Note: For patients treated with VKA drugs, such as warfarin, the [place] [employer] 2012 Guideline recommends a therapeutic INR range of 2 to 3 (target INR of 2.5). This recommendation includes high-risk patients with antiphospholipid syndrome with previous arterial or venous thromboembolism, current-generation mechanical or bioprosthetic aortic heart valve replacement.Note: Patients with mechanical aortic valve replacement and additional risk factors for thromboembolic events (atrial fibrillation, previous thromboembolism, LV dysfunction, hypercoagulable conditions) or an older generation mechanical AVR (i.e., ball in-Cage) or any mechanical MVR should have a INR therapeutic range of 2.5 to 3.5 (target INR of 3).Lyndsey GH, et al. Chest 2012, 141:7S-47SNishmingo RA, et al. [facility] 2017, 70: 252-289 Performed By: #### 3 4528-0, 79858-8 ####[facility] LABCLIA [id number] [place] [address] [place] PT Coag (PPP) [Time] 10.7 s Normal 9.7-13.0 [facility] Comment on above: Order Comment: Speci men Type: BLOOD SPECIMENOrdering Facility: [facility] Address: [address] [place] [address] Performed By: #### 3 4528-0, 14901-3 ####[facility] LABCLIA [id number] [place] [address] [place] Renal function 2000 panelon 05-03-2024 Albumin [Mass/Vol] 3.0 g/dL Low 3.9-4.9 [facility] Comment on above: Order Comment: Neelimai eliceo Type: BLOOD SPECIMENOrdering Facility: [facility] Address: [address] [place] [address] Performed By: #### 1 4334-7, 31354-4 ####[facility] LABCLIA [id number] [place] [id number] [place] Anion gap [Moles/Vol] 8 mmol/L Normal 8-15 [facility] Comment on above: Order Comment: Neelimai men Type: BLOOD SPECIMENOrdering Facility: [facility] Address: [address] [place] [address] Performed By: #### 1 4334-7, 01901-7 ####[facility] LABCLIA [id number] [place] [address] [place] Calcium [Mass/Vol] 9.5 mg/dL Normal 8.5-10.2 [facility] Comment on above: Order Comment: Speci men Type: BLOOD SPECIMENOrdering Facility: [facility] Address: [address] [place] [address] Performed By: #### 1 4334-7, 85290-4 ####[facility] LABCLIA [id number] [place] [address] [place] Chloride [Moles/Vol] 112 mmol/L High 98-107 [facility] Comment on above: Order Comment: Speci men Type: BLOOD SPECIMENOrdering Facility: [facility] Address: [address] [place] [address] Performed By: #### 1 4334-7, 47847-6 ####[facility] LABCLIA [id number] [place] [address] [place] CO2 [Moles/Vol] 22 mmol/L Normal 22-30 [facility] Comment on above: Order Comment: Speci men Type: BLOOD SPECIMENOrdering Facility: [facility] Address: [address] [place] [address] Performed By: #### 1 4334-7, 11307-1 ####[facility] LABCLIA [id number] [place] [address] [place] Creatinine [Mass/Vol] 0.93 mg/dL Normal 0.58-0.96 [facility] Comment on above: Order Comment: Speci men Type: BLOOD SPECIMENOrdering Facility: [facility] Address: [address] [place] [address] Performed By: #### 1 4334-7, 35404-3 ####[facility] LABCLIA [id number] [place] [address] [place] Creatinine and Glomerular filtration rate.predicted panel (S/P/Bld) 71 mL/min/1.73m??? Normal >=60 [facility] Comment on above: Order Comment: Paco fenton Type: BLOOD SPECIMENOrdering Facility: [facility] Address: [address] [place] [address] Result Comment: Carmen mated Glomerular Filtration Rate [...] accurately reflect actual GFR. Performed By: #### 1 4334-7, 94679-5 ####[facility] LABCLIA [id number] [place] [address] [place] Glucose [Mass/Vol] 154 mg/dL High 74-99 [facility] Comment on above: Order Comment: Paco fenton Type: BLOOD SPECIMENOrdering Facility: [facility] Address: [address] [place] [address] Result Comment: The [place] [employer] (ADA) provides guidance for cutoff values for fasting glucose and random glucose. The ADA defines fasting as no caloric intake for at least 8 hours. Fasting plasma glucose results between 100 to 125 mg/dL indicate increased risk for diabetes (prediabetes).Fasting plasma glucose results greater than or equal to 126 mg/dL meet the criteria for diagnosis of diabetes. In the absence of unequivocal hyperglycemia, results should be confirmed by repeat testing. In a patient with classic symptoms of hyperglycemia or hyperglycemic crisis, random plasma glucose results greater than or equal to 200 mg/dL meet the criteria for diagnosis of diabetes.Reference: Standards of Medical Care in Diabetes 2016, [place] [employer]. Diabetes Care. 2016.39(Suppl 1). Performed By: #### 1 4334-7, 78174-6 ####[facility] LABCLIA [id number] [place] [address] [place] Phosphate [Mass/Vol] 1.5 mg/dL Low 2.7-4.8 [facility] Comment on above: Order Comment: Speci men Type: BLOOD SPECIMENOrdering Facility: [facility] Address: [address] [place] [address] Performed By: #### 1 4334-7, 78423-6 ####[facility] LABCLIA [id number] [place] [address] [place] Potassium [Moles/Vol] 4.0 mmol/L Normal 3.7-5.1 [facility] Comment on above: Order Comment: Speci men Type: BLOOD SPECIMENOrdering Facility: [facility] Address: [address] [place] [address] Performed By: #### 1 4334-7, 18631-9 ####[facility] LABCLIA [id number] [place] [address] [place] Sodium [Moles/Vol] 142 mmol/L Normal 136-144 [facility] Comment on above: Order Comment: Speci men Type: BLOOD SPECIMENOrdering Facility: [facility] Address: [address] [place] [address] Performed By: #### 1 4334-7, 74670-5 ####[facility] LABCLIA [id number] [place] [address] [place] Urea nitrogen [Mass/Vol] 10 mg/dL Normal 7-21 [facility] Comment on above: Order Comment: Speci men Type: BLOOD SPECIMENOrdering Facility: [facility] Address: [address] [place] [address] Performed By: #### 1 4334-7, 40164-8 ####[facility] LABCLIA [id number] [place] [address] [place] STAPHYLOCOCCUS AUREUS AND MR SA SCREEN, PCR, NASALon 05-03-2024 S. aureus and MRSA panel RICH+probe (Nose) Methicillin-SUSCEPTIBLE Staphylococcus aureus Detected Abnormal Not Detected [facility] Comment on above: Order Comment: Speci men Type: SWABOrdering Facility: [facility] Address: [facility] [place] [address] Performed By: #### S APCR ####[facility] LABCLIA [id number] [place] [address] [place] THERAPY NTon 05-03-2024 THERAPY NT Normal [facility] THERAPY NT Normal [facility] TYPE + SCREENon 05-03-2024 ABO A Normal [facility] Comment on above: Order Comment: Speci men Type: BLOOD SPECIMENOrdering Facility: [facility] Address: [address] [place] [address] Performed By: #### T SCR ####[facility] MA[facility] BLOOD BANKCLIA [id number] [place] [address] [place] HISTORICAL AB SCR STATUS Negative Normal [facility] Comment on above: Order Comment: Speci men Type: BLOOD SPECIMENOrdering Facility: [facility] Address: [address] [place] [address] Performed By: #### T SCR ####CC MAIN BLOOD BANKCLIA [id number] [place] [address] [place] Rh Nom (Bld) Positive Normal [facility] Comment on above: Order Comment: Speci men Type: BLOOD SPECIMENOrdering Facility: [facility] Address: [address] [place] [address] Performed By: #### T SCR ####[facility] MAIN BLOOD BANKCLIA [id number] [place] [address] [place] TYPE AND SCREEN EXPIRATION 05/06/2024 23:59 Normal [facility] Comment on above: Order Comment: Speci men Type: BLOOD SPECIMENOrdering Facility: [facility] Address: [address] [place] [address] Performed By: #### T SCR ####CC MAIN BLOOD BANKCLIA [id number] [place] [id number] [place] Vit B12 SerPl-mCncon 024 Cobalamin (Vitamin B12) [Mass/Vol] 555 pg/mL Normal 232-1245 [facility] Comment on above: Order Comment: Speci men Type: BLOOD SPECIMENOrdering Facility: [facility] Address: [address] [place] [address] Performed By: #### 2 4323-8, HSTNT, 2132-9 ####[facility] LABCLIA [id number] [place] [address] [place] XR ABDOMEN 1V SUPINEon 05-03 XR ABDOMEN 1V SUPINE Normal [facility] aPTT PPPon 05-03-2024 aPTT Coag (PPP) [Time] 24.5 s Normal 23.0-32.4 [facility] Comment on above: Order Comment: Speci men Type: BLOOD SPECIMENOrdering Facility: [facility] Address: [address] [place] [address] Performed By: #### 3 4528-0, 42035-2 ####[facility] LABCLIA [id number] [place] [address] [place] APTTon 05-02-2024 aPTT Coag (Bld) [Time] 24.3 s Normal 23.0-36.5 [facility] Comment on above: Result Comment: IV Heparin Therapy Range: 66.0-92.0 sec Performed By: #### C MPX, PT, CDP, PTT #### [facility] [address] [place] [address] [phone] [employer]: Domo Nielsen MD CBC with Diffon 05-02-2024 Abs. Basophil 0.00 k/uL Normal 0.0-0.2 [facility] Comment on above: Performed By: #### F EBC, TSHX, B12FOL, FT4 #### [facility] [place] [address] [employer]: Domo Nielsen MD Abs.Imm.Granulocyte 0.00 k/uL Normal 0.00-0.30 [facility] Comment on above: Performed By: #### F EBC, TSHX, B12FOL, FT4 #### [address] [address] [employer]: Domo Nielsen MD Abs.Neutrophil (Seg) 4.15 k/uL Normal 1.8-7.7 [facility] Comment on above: Performed By: #### F EBC, TSHX, B12FOL, FT4 #### [address] [address] [employer]: Domo Nielsen MD Basophils/100 WBC (Bld) 0 % Normal 0-2 [facility] Comment on above: Performed By: #### F EBC, TSHX, B12FOL, FT4 #### [facility] [employer] [address] [place] [phone] [employer]: Domo Nielsen MD Eosinophils (Bld) [#/Vol] 0.00 10*3/uL Normal 0.0-0.4 [facility] Comment on above: Performed By: #### F EBC, TSHX, B12FOL, FT4 #### [address] [address] [employer]: Domo Nielsen MD Eosinophils/100 WBC (Bld) 0 % Low 1-4 [facility] Comment on above: Performed By: #### F EBC, TSHX, B12FOL, FT4 #### [facility] [employer] [address] [place] [address]60 [employer]: Domo Nielsen MD Immature granulocytes/100 WBC (Bld) 0 % Normal 0 [facility] Comment on above: Performed By: #### F EBC, TSHX, B12FOL, FT4 #### [facility] [employer] [address] [place] [phone] [employer]: Domo Nielsen MD Lymphocytes (Bld) [#/Vol] 0.55 10*3/uL Low 1.0-4.8 [facility] Comment on above: Performed By: #### F EBC, TSHX, B12FOL, FT4 #### [facility] [employer] [address] [place] [address] [phone] [employer]: Domo Nielsen MD Lymphocytes/100 WBC (Bld) 11 % Low 24-44 [facility] Comment on above: Performed By: #### F EBC, TSHX, B12FOL, FT4 #### [address] [address] [employer]: Domo Nielsen MD Monocytes (Bld) [#/Vol] 0.30 10*3/uL Normal 0.1-0.8 [facility] Comment on above: Performed By: #### F EBC, TSHX, B12FOL, FT4 #### [address] [address] [employer]: Domo Nielsen MD Monocytes/100 WBC (Bld) 6 % Normal 1-7 [facility] Comment on above: Performed By: #### F EBC, TSHX, B12FOL, FT4 #### [address] [address] [employer]: Domo Nielsen MD Morphology Ludin (Bld) [Interp] ANISOCYTOSIS PRESENT Normal [facility] Comment on above: Performed By: #### F EBC, TSHX, B12FOL, FT4 #### [facility] [employer] [address] [place] [address] 536[address] [employer]: Domo Nielsen MD Neutrophil (Seg) 83 % High 36-66 [facility] Comment on above: Performed By: #### F EBC, TSHX, B12FOL, FT4 #### [facility] [employer] [address] [place] [address] [phone] [employer]: Domo Nielsen MD Erythrocyte distribution width (RBC) [Ratio] 19.4 % High 11.8-14.4 [facility] Comment on above: Performed By: #### F EBC, TSHX, B12FOL, FT4 #### [facility] [employer] [address] [place] [address] 26788 [employer]: Domo Nielsen MD Hematocrit (Bld) [Volume fraction] 25.1 % Low 36.3-47.1 [facility] Comment on above: Performed By: #### F EBC, TSHX, B12FOL, FT4 #### [facility] [employer] [address] [place] [address] [phone] [employer]: Domo Nielsen MD Hemoglobin (Bld) [Mass/Vol] 8.3 g/dL Low 11.9-15.1 [facility] Comment on above: Performed By: #### F EBC, TSHX, B12FOL, FT4 #### [facility] [employer] [address] [place] [address] [phone] [employer]: Domo Nielsen MD MCH (RBC) [Entitic mass] 32.7 pg Normal 25.2-33.5 [facility] Comment on above: Performed By: #### F EBC, TSHX, B12FOL, FT4 #### [facility] [employer] [address] [place] [address] [phone] [employer]: Domo Nielsen MD MCHC (RBC) [Mass/Vol] 33.1 g/dL Normal 28.4-34.8 [facility] Comment on above: Performed By: #### F EBC, TSHX, B12FOL, FT4 #### [facility] [employer] [address] [place] [address] [phone] [employer]: Domo Nielsen MD MCV (RBC) [Entitic vol] 98.8 fL Normal 82.6-102.9 [facility] Comment on above: Performed By: #### F EBC, TSHX, B12FOL, FT4 #### [facility] [employer] [facility] [place] [address] [employer]: Domo Nielsen MD NRBC Automated 0.0 per 100 WBC Normal 0.0 [facility] Comment on above: Performed By: #### F EBC, TSHX, B12FOL, FT4 #### [address] [address] [employer]: Domo Nielsen MD Platelet mean volume (Bld) [Entitic vol] 9.8 fL Normal 8.1-13.5 [facility] Comment on above: Performed By: #### F EBC, TSHX, B12FOL, FT4 #### [facility] [employer] [address] [place] [phone] [employer]: Domo Nielsen MD Platelets (Bld) [#/Vol] 209 10*3/uL Normal 138-453 [facility] Comment on above: Performed By: #### F EBC, TSHX, B12FOL, FT4 #### [facility] [employer] [address] [place] [address] [phone] [employer]: Domo Nielsen MD RBC (Bld) [#/Vol] 2.54 10*6/uL Low 3.95-5.11 [facility] Comment on above: Performed By: #### F EBC, TSHX, B12FOL, FT4 #### [facility] [employer] [address] [place] [phone] [employer]: Domo Nielsen MD WBC (Bld) [#/Vol] 5.0 10*3/uL Normal 3.5-11.3 [facility] Comment on above: Performed By: #### F EBC, TSHX, B12FOL, FT4 #### [facility] [employer] [address] [place] [address] [phone] [employer]: Domo Nielsen MD [facility]-2024 CNPN Normal [facility] Metabolic Pr/rfx MGon 0 - Albumin [Mass/Vol] 3.3 g/dL Low 3.5-5.2 [facility] Comment on above: Performed By: #### C MPX, PT, CDP, PTT #### [facility] [address] [place] [phone] [employer]: Domo Nielsen MD Albumin/Glob Ratio 2.0 Normal 1.0-2.5 [facility] Comment on above: Performed By: #### C MPX, PT, CDP, PTT #### [facility] [employer] [address] [place] [phone] [employer]: Domo Nielsen MD Alkaline Phos 69 U/L Normal 35-104 [facility] Comment on above: Performed By: #### C MPX, PT, CDP, PTT #### [facility] [employer] [address] [place] [phone] [employer]: Domo Nielsen MD ALT [Catalytic activity/Vol] 8 U/L Low 10-35 [facility] Comment on above: Performed By: #### C MPX, PT, CDP, PTT #### [facility] [employer] [address] [place] [address] 70031 [employer]: Domo Nielsen MD Anion gap [Moles/Vol] 7 mmol/L Low 9-16 [facility] Comment on above: Performed By: #### C MPX, PT, CDP, PTT #### [facility] [employer] [address] [place] [phone] [employer]: Domo Nielsen MD AST [Catalytic activity/Vol] 32 U/L Normal 10-35 [facility] Comment on above: Performed By: #### C MPX, PT, CDP, PTT #### [facility] [address] [place] [phone] [employer]: Domo Nielsen MD Bilirubin [Mass/Vol] 0.6 mg/dL Normal 0.00-1.20 [facility] Comment on above: Performed By: #### C MPX, PT, CDP, PTT #### [facility] [employer] [address] [place] [address] [phone] [employer]: Domo Nielsen MD Calcium [Mass/Vol] 8.8 mg/dL Normal 8.6-10.4 [facility] Comment on above: Performed By: #### C MPX, PT, CDP, PTT #### [facility] [address] [place] [phone] [employer]: Domo Nielsen MD Chloride [Moles/Vol] 111 mmol/L High 98-107 [facility] Comment on above: Performed By: #### C MPX, PT, CDP, PTT #### [facility] [employer] [address] [place] [address] [phone] [employer]: Domo Nielsen MD CO2 [Moles/Vol] 23 mmol/L Normal 20-31 [facility] Comment on above: Performed By: #### C MPX, PT, CDP, PTT #### [facility] [employer] [address] [place] [address] [phone] [employer]: Domo Nielsen MD Creatinine [Mass/Vol] 1.0 mg/dL High 0.50-0.90 [facility] Comment on above: Performed By: #### C MPX, PT, CDP, PTT #### [facility] [employer] [address] [place] [address] [phone] [employer]: Domo Nielsen MD GFR/1.73 sq M.predicted among non-blacks MDRD (S/P/Bld) [Vol rate/Area] 64 mL/min/{1.73_m2} Normal >60 [facility] Comment on above: Result Comment: These results are not intended for use in patients <18 years of age. eGFR results are calculated without a race factor using the 2020 CKD-EPI equation. Careful clinical correlation is recommended, particularly when comparing to results calculated using previous equations. The CKD-EPI equation is less accurate in patients with extremes of muscle mass, extra-renal metabolism of creatine, excessive creatine ingestion, or following therapy that affects renal tubular secretion. Performed By: #### C MPX, PT, CDP, PTT #### [facility] [address] [place] [phone] [employer]: Domo Nielsen MD Glucose [Mass/Vol] 170 mg/dL High 74-99 [facility] Comment on above: Performed By: #### C MPX, PT, CDP, PTT #### [facility] [address] [place] [address] [phone] [employer]: Domo Nielsen MD Potassium [Moles/Vol] 3.7 mmol/L Normal 3.7-5.3 [facility] Comment on above: Performed By: #### C MPX, PT, CDP, PTT #### [facility] [address] [place] [phone] [employer]: Domo Nielsen MD Protein [Mass/Vol] 5.5 g/dL Low 6.6-8.7 [facility] Comment on above: Performed By: #### C MPX, PT, CDP, PTT #### [facility] [address] [place] [address] 47685 [employer]: Domo Nielsen MD Sodium [Moles/Vol] 141 mmol/L Normal 136-145 [facility] Comment on above: Performed By: #### C MPX, PT, CDP, PTT #### [employer] [address] [place] [address] [phone] Manager Life Sciences: Domo Nielsen MD Urea nitrogen [Mass/Vol] 22 mg/dL Normal 8-23 [facility] Comment on above: Performed By: #### C MPX, PT, CDP, PTT #### [employer] [address] [place] [address] 34972 [employer]: Domo Nielsen MD PTon 05-02-2024 INR Coag (PPP) [Relative time] 1.0 {INR} Normal [facility] Comment on above: Result Comment: Therapeutic Range: Moderate Anticoagulant Intensity: INR = 2.0-3.0 High Anticoagulant Intensity: INR = 2.5-3.5 Performed By: #### C MPX, PT, CDP, PTT #### [facility] [employer] [address] [place] [address] [phone] [employer]: Domo Nielsen MD PT Coag (PPP) [Time] 13.0 s Normal 11.7-14.9 [facility] Comment on above: Performed By: #### C MPX, PT, CDP, PTT #### [facility] [employer] [address] [place] [phone] [employer]: Domo Nielsen MD B12/Folate Panelon Cobalamin (Vitamin B12) [Mass/Vol] 730 pg/mL Normal 232-1245 [facility] Comment on above: Performed By: #### F EBC, TSHX, B12FOL, FT4 #### [facility] [employer] [address] [place] [address] [phone] [employer]: Domo Nielsen MD Folic Acid 7.8 ng/mL Normal 4.8-24.2 [facility] Comment on above: Performed By: #### F EBC, TSHX, B12FOL, FT4 #### [facility] [employer] [address] [place] [phone] Manager [employer]: Domo Nielsen MD CBC with Diffon 05-01-2024 Abs. Basophil 0.00 k/uL Normal 0.0-0.2 [facility] Comment on above: Performed By: #### F EBC, TSHX, B12FOL, FT4 #### [facility] [employer] [address] [place] [address] 73729 [employer]: Domo Nielsen MD Abs.Imm.Granulocyte 0.00 k/uL Normal 0.00-0.30 [facility] Comment on above: Performed By: #### F EBC, TSHX, B12FOL, FT4 #### [facility] [address] [place] [address] [phone] Manager [employer]: Domo Neilsen MD Abs.Neutrophil (Seg) 4.47 k/uL Normal 1.8-7.7 [facility] Comment on above: Performed By: #### F EBC, TSHX, B12FOL, FT4 #### [facility] [address] [place] [address] [phone] Manager [employer]: Domo Nielsen MD Basophils/100 WBC (Bld) 0 % Normal 0-2 [facility] Comment on above: Performed By: #### F EBC, TSHX, B12FOL, FT4 #### [facility] [employer] [address] [place] [address] [phone] [employer]: Domo Nielsen MD Eosinophils (Bld) [#/Vol] 0.00 10*3/uL Normal 0.0-0.4 [facility] Comment on above: Performed By: #### F EBC, TSHX, B12FOL, FT4 #### [facility] [employer] [address] [place] [address] [phone] Manager [employer]: Domo Nielsen MD Eosinophils/100 WBC (Bld) 0 % Low 1-4 [facility] Comment on above: Performed By: #### F EBC, TSHX, B12FOL, FT4 #### [facility] [address] [place] [address] [phone] Manager [employer]: Domo Nielsen MD Immature granulocytes/100 WBC (Bld) 0 % Normal 0 [facility] Comment on above: Performed By: #### F EBC, TSHX, B12FOL, FT4 #### [facility] [employer] [address] [place] [address] [phone] Manager [employer]: Domo Nielsen MD Lymphocytes (Bld) [#/Vol] 0.47 10*3/uL Low 1.0-4.8 [facility] Comment on above: Performed By: #### F EBC, TSHX, B12FOL, FT4 #### [facility] [address] [place] [address] 51809 Manager [employer]: Domo Nielsen MD Lymphocytes/100 WBC (Bld) 9 % Low 24-44 [facility] Comment on above: Performed By: #### F EBC, TSHX, B12FOL, FT4 #### [address] [address] [employer]: Domo Nielsen MD Monocytes (Bld) [#/Vol] 0.26 10*3/uL Normal 0.1-0.8 [facility] Comment on above: Performed By: #### F EBC, TSHX, B12FOL, FT4 #### [address] [address] [employer]: Domo Nielsen MD Monocytes/100 WBC (Bld) 5 % Normal 1-7 [facility] Comment on above: Performed By: #### F EBC, TSHX, B12FOL, FT4 #### [address] [address] [employer]: Domo Nielsen MD Morphology Ludin (Bld) [Interp] ANISOCYTOSIS PRESENT Normal [facility] Comment on above: Performed By: #### F EBC, TSHX, B12FOL, FT4 #### [address] [address] [employer]: Domo Nielsen MD Neutrophil (Seg) 86 % High 36-66 [facility] Comment on above: Performed By: #### F EBC, TSHX, B12FOL, FT4 #### [address] [address] [employer]: Domo Nielsen MD Erythrocyte distribution width (RBC) [Ratio] 17.7 % High 11.8-14.4 [facility] Comment on above: Performed By: #### F EBC, TSHX, B12FOL, FT4 #### [facility] [employer] [address] [place] [address] [phone] Manager [employer]: Domo Nielsen MD Hematocrit (Bld) [Volume fraction] 26.5 % Low 36.3-47.1 [facility] Comment on above: Performed By: #### F EBC, TSHX, B12FOL, FT4 #### [address] [address] [employer]: Domo Nielsen MD Hemoglobin (Bld) [Mass/Vol] 8.6 g/dL Low 11.9-15.1 [facility] Comment on above: Performed By: #### F EBC, TSHX, B12FOL, FT4 #### [facility] [employer] [address] [place] [address] [phone] Manager [employer]: Domo Nielsen MD MCH (RBC) [Entitic mass] 33.0 pg Normal 25.2-33.5 [facility] Comment on above: Performed By: #### F EBC, TSHX, B12FOL, FT4 #### [facility] [employer] [address] [place] [address] [phone] Manager [employer]: Domo Nielsen MD MCHC (RBC) [Mass/Vol] 32.5 g/dL Normal 28.4-34.8 [facility] Comment on above: Performed By: #### F EBC, TSHX, B12FOL, FT4 #### [address] [address] [employer]: Domo Nielsen MD MCV (RBC) [Entitic vol] 101.5 fL Normal 82.6-102.9 [facility] Comment on above: Performed By: #### F EBC, TSHX, B12FOL, FT4 #### [facility] [employer] [address] [place] [address] [phone] Manager [employer]: Domo Nielsen MD NRBC Automated 0.0 per 100 WBC Normal 0.0 [facility] Comment on above: Performed By: #### F EBC, TSHX, B12FOL, FT4 #### [facility] [employer] [address] [place] [address] [phone] [employer]: Domo Nielsen MD Platelet mean volume (Bld) [Entitic vol] 9.5 fL Normal 8.1-13.5 [facility] Comment on above: Performed By: #### F EBC, TSHX, B12FOL, FT4 #### [facility] [employer] [address] [place] [address] [phone] Manager [employer]: Domo Nielsen MD Platelets (Bld) [#/Vol] 208 10*3/uL Normal 138-453 [facility] Comment on above: Performed By: #### F EBC, TSHX, B12FOL, FT4 #### [facility] [employer] [address] [place] [address] [phone] Manager [employer]: Domo Nielsen MD RBC (Bld) [#/Vol] 2.61 10*6/uL Low 3.95-5.11 [facility] Comment on above: Performed By: #### F EBC, TSHX, B12FOL, FT4 #### [facility] [employer] [address] [place] [address] [phone] Manager [employer]: Domo Nielsen MD WBC (Bld) [#/Vol] 5.2 10*3/uL Normal 3.5-11.3 [facility] Comment on above: Performed By: #### F EBC, TSHX, B12FOL, FT4 #### [facility] [employer] [address] [place] [address] 11614 [employer]: Domo Nielsen MD Comp Metabolic Pr/rfx MGon 0 05-01-2024 Albumin [Mass/Vol] 3.2 g/dL Low 3.5-5.2 [facility] Comment on above: Performed By: #### F EBC, TSHX, B12FOL, FT4 #### [facility] [address] [place] [address] [phone] Manager [employer]: Domo Nielsen MD Albumin/Glob Ratio 1.0 Normal 1.0-2.5 [facility] Comment on above: Performed By: #### F EBC, TSHX, B12FOL, FT4 #### [facility] [address] [place] [address] [phone] [employer]: Domo Nielsen MD Alkaline Phos 72 U/L Normal 35-104 [facility] Comment on above: Performed By: #### F EBC, TSHX, B12FOL, FT4 #### [facility] [employer] [address] [place] [address] [phone] [employer]: Domo Nielsen MD ALT [Catalytic activity/Vol] 7 U/L Low 10-35 [facility] Comment on above: Performed By: #### F EBC, TSHX, B12FOL, FT4 #### [facility] [employer] [address] [place] [address] [phone] [employer]: Domo Nielsen MD Anion gap [Moles/Vol] 11 mmol/L Normal 9-16 [facility] Comment on above: Performed By: #### F EBC, TSHX, B12FOL, FT4 #### [facility] [address] [place] [address] [phone] [employer]: Domo Nielsen MD AST [Catalytic activity/Vol] 32 U/L Normal 10-35 [facility] Comment on above: Performed By: #### F EBC, TSHX, B12FOL, FT4 #### [facility] [employer] [address] [place] [address] [phone] [employer]: Domo Nielsen MD Bilirubin [Mass/Vol] 1.3 mg/dL High 0.00-1.20 [facility] Comment on above: Performed By: #### F EBC, TSHX, B12FOL, FT4 #### [facility] [employer] [address] [place] [address] [phone] Manager [employer]: Domo Nielsen MD Calcium [Mass/Vol] 8.7 mg/dL Normal 8.6-10.4 [facility] Comment on above: Performed By: #### F EBC, TSHX, B12FOL, FT4 #### [facility] [employer] [address] [place] [address] [phone] [employer]: Domo Nielsen MD Chloride [Moles/Vol] 109 mmol/L High 98-107 [facility] Comment on above: Performed By: #### F EBC, TSHX, B12FOL, FT4 #### [facility] [employer] [address] [place] [address] Manager Life Sciences: Domo Nielsen MD CO2 [Moles/Vol] 18 mmol/L Low 20-31 [facility] Comment on above: Performed By: #### F EBC, TSHX, B12FOL, FT4 #### [facility] [employer] [address] [place] [address] Manager Life Sciences: Domo Nielsen MD Creatinine [Mass/Vol] 1.1 mg/dL High 0.50-0.90 [facility] Comment on above: Performed By: #### F EBC, TSHX, B12FOL, FT4 #### [facility] [employer] [address] [place] [phone] Manager Life Sciences: Domo Nielsen MD GFR/1.73 sq M.predicted among non-blacks MDRD (S/P/Bld) [Vol rate/Area] 57 mL/min/{1.73_m2} Low >60 [facility] Comment on above: Result Comment: These results are not intended for use in patients <18 years of age. eGFR results are calculated without a race factor using the 2020 CKD-EPI equation. Careful clinical correlation is recommended, particularly when comparing to results calculated using previous equations. The CKD-EPI equation is less accurate in patients with extremes of muscle mass, extra-renal metabolism of creatine, excessive creatine ingestion, or following therapy that affects renal tubular secretion. Performed By: #### F EBC, TSHX, B12FOL, FT4 #### [employer] [address] [place] [address] Manager Life Sciences: Domo Nielsen MD Glucose [Mass/Vol] 174 mg/dL High 74-99 [facility] Comment on above: Performed By: #### F EBC, TSHX, B12FOL, FT4 #### [employer] [facility] [address] [place] [address] Manager Life Sciences: Domo Nielsen MD Potassium [Moles/Vol] 3.9 mmol/L Normal 3.7-5.3 [facility] Comment on above: Performed By: #### F EBC, TSHX, B12FOL, FT4 #### [employer] [address] [place] [address] Manager Life Sciences: Domo Nielsen MD Protein [Mass/Vol] 5.4 g/dL Low 6.6-8.7 [facility] Comment on above: Performed By: #### F EBC, TSHX, B12FOL, FT4 #### [employer] [address] [place] [address] Manager Life Sciences: Domo Nielsen MD Sodium [Moles/Vol] 138 mmol/L Normal 136-145 [facility] Comment on above: Performed By: #### F EBC, TSHX, B12FOL, FT4 #### [employer] [address] [place] [address] Manager Life Sciences: Domo Nielsen MD Urea nitrogen [Mass/Vol] 19 mg/dL Normal 8-23 [facility] Comment on above: Performed By: #### F EBC, TSHX, B12FOL, FT4 #### [facility] [employer] [address] [place] [address] Manager Life Sciences: Domo Nielsen MD Glucose,Whole Bloodon 2023 Glucose [Mass/Vol] 162 mg/dL High 65-105 [facility] Hgb/Hcton 05-01-2024 Hematocrit (Bld) [Volume fraction] 26.4 % Low 36.3-47.1 [facility] Comment on above: Performed By: #### H H #### [address] [address] Manager Life Sciences: Domo Nielsen MD Hemoglobin (Bld) [Mass/Vol] 8.6 g/dL Low 11.9-15.1 [facility] Comment on above: Performed By: #### H H #### [facility] [employer] [address] [place] [address] Manager Life Sciences: Domo Nielsen MD Iron Binding Cap.on 05-01-20 24 % Fe Saturation 55 % Normal 20-55 [facility] Comment on above: Performed By: #### F EBC, TSHX, B12FOL, FT4 #### [facility] [employer] [address] [place] [address] Manager Life Sciences: Domo Nielsen MD Iron [Mass/Vol] 121 ug/dL Normal 37-145 [facility] Comment on above: Performed By: #### F EBC, TSHX, B12FOL, FT4 #### [facility] [employer] [address] [place] [address] Manager Life Sciences: Domo Nielsen MD Total Fe Binding Cap 220 ug/dL Low 250-450 [facility] Comment on above: Performed By: #### F EBC, TSHX, B12FOL, FT4 #### [address] [address] Manager Life Sciences: Domo Neilsen MD Unbound Fe Bind Cap 99 ug/dL Low 112-347 [facility] Comment on above: Performed By: #### F EBC, TSHX, B12FOL, FT4 #### [address] [address] Manager Life Sciences: Domo Nielsen MD MRSA, DNA, Nasalon MRSA, DNA, Nasal Negative Normal [facility] Comment on above: Result Comment: NEGA TIVE: MRSA DNA not detected by nucleic acid amplification. Results should be used as an adjunct to nosocomial control efforts to identify patients needing enhanced precautions. The test is not intended to identify patients with staphylococcal infections. Results should not be used to guide or monitor treatment for MRSA infections. Performed By: #### F EBC, TSHX, B12FOL, FT4 #### [address] [address] Manager [employer] Sciences: Domo Nielsen MD Specimen Description .NASAL SWAB Normal [facility] Comment on above: Performed By: #### F EBC, TSHX, B12FOL, FT4 #### [address] [address] Manager Life Sciences: Domo Nielsen MD TSH w/reflex to FT4on 2023 Thyroid Stim. Horm. 14.30 uIU/mL High 0.27-4.[address] [facility] Comment on above: Performed By: #### F EBC, TSHX, B12FOL, FT4 #### [address] [address] Manager Life Sciences: Domo Nielsen MD Thyroxine, Freeon 3 Thyroxine, Free 1.3 ng/dL Normal 0.92-1.68 [facility] Comment on above: Performed By: #### F EBC, TSHX, B12FOL, FT4 #### [employer] [address] [place] [address] Manager Life Sciences: Domo Nielsen MD Type + Screenon 05-01-2024 Type + Screen Sample Expiration 05/04/2024,2359 Arm Band Number [id number] ABO/Rh(D) A POSITIVE Antibody Screen NEGATIVE Normal [facility] Comment on above: Performed By: #### T YS #### [employer] [address] [place] [address] Manager Life Sciences: Domo Nielsen MD [facility] 04-27-2024 CNPN Normal [facility] 04-26-2024 CNPN Telephone (AVXRPR) KAYA SCHILLING ([id number]) 1965 F Date Time Provider Department 04/26/24 BAKARI MORRIS AVXRPR During your visit today, we recorded the following information about you: Bakari Morris RN 04/26/2024 12:48 PM Signed Returning patients call [...] Encounter Status:Closed by BAKARI MORRIS on 04/26/24 [facility] CNPN [facility] BRIEF OP NOTon 04-25-2024 BRIEF OP NOT HNO ID: [id number] Author: ALEX MASTERSON MD Service: Interventional Radiology Author Type: Physician Type: Brief Op Note Filed: 04/25/2024 12:07 Note Text: BRIEF OPERATIVE / PROCEDURE NOTE LOG ID: [id number] SURGERY/PROCEDURE DATE: 04/25/2024 INCISION/PROCEDURE START TIME: 11:36 AM INCISION CLOSE/PROCEDURE END TIME: 12:02 PM SURGEON(S)/PROCEDURALIS T(S) AND SEAL EXTRUSION OPERATOR(S): Surgeons and Role: * Alex Masterson MD - Primary No Additional Staff SURGERY/PROCEDURE(S): Right IJ port placement ANESTHESIA: Procedural Sedation FINDINGS: Patent right IJ vein. ESTIMATED BLOOD LOSS: 2 mls SPECIMENS: None COMPLICATIONS: None IMPLANTS: Right chest port CLOSURE TECHNIQUE: Primary PRE-OP/PRE-PROCEDURE DIAGNOSIS: Gastric cancer POST-OP/POST-PROCEDURE DIAGNOSIS: Same as Preop SIGNATURE: Alxe Masterson MD PATIENT NAME: Kaya Schilling DATE: April 25, 2024 TIME: 12:06 PM [facility] HISTORY PHYSICALon HISTORY PHYSICAL HNO ID: [id number] Author: ALEX MASTERSON MD Service: Interventional Radiology [...] Kaya Schilling DATE: April 25, 2024 TIME: 10:39 AM [facility] IR FLU GD MAGDALENO CVA PLACEon IR FLU GD MAGDALENO CVA PLACE * * *Final Report* * * DATE OF EXAM: Apr 25 2024 12:02PM [facility] 7444 - IR FLU GD MAGDALENO CVA PLACE / PROCEDURE REASON: Malignant neoplasm [...] performed by the: attending radiologist, without an facility assistant. The attending radiologist performed the following procedural [...] procedure. I reviewe (more content not included)... [facility] IR PORTOCATH PLACEMENTon IR PORTOCATH PLACEMENT * * *Final Report* * * DATE OF EXAM: Apr 25 2024 12:02PM [facility] 8966 - IR PORTOCATH PLACEMENT / PROCEDURE [...] performed by the: attending radiologist, without an facility assistant. The attending radiologist performed the following procedural [...] procedure. I reviewed (more content not included)... [facility] US VASCULAR ACCESS GUIDEo n 04-25-2024 IR US VASCULAR ACCESS GUIDE * * *Final Report* * * DATE OF EXAM: Apr 25 2024 12:02PM [facility] 7765 - US VASCULAR ACCESS GUIDE / PROCEDURE REASON: [...] performed by the: attending radiologist, without an facility assistant. The attending radiologist performed the following procedural [...] procedure. I rev (more content not included)... Normal [facility] NURSING PROGon 04-25-2024 NURSING PROG HNO ID: [id number] Author: BYRON PATHAK RN Service: ? Author Type: Registered Nurse [...] (RECOMMENDATION): None Electronically Signed By: Byron Pathak [facility] Leo 04-24-2024 [facility] KAYA SCHILLING ([id number]) 1965 F Date Time Provider Department 04/24/24 DINH ANDINO [facility] During your visit today, we recorded the [...] Date Reviewed: 04/21/2024 Reviewed by: Lillie Richter APRN.TRAFFIC EXPERT - Fully Assessed Reason for Visit: Appointment [...] Encounter Status:Closed by DINH ANDINO on 04/24/[address] [facility] 04-21-2024 [facility] Telephone (CNFVM) KAYA SCHILLING ([id number]) 1965 F Date Time Provider Department 04/21/24 APRIL FRYE [facility] During your visit today, we recorded the following information about you: April Frye, BORA 04/21/2024 10:07 AM Addendum Care Coordination Triage Note [facility] Situation: Patient called in again today reporting severe pain and crying. Background: Disease, current pertinent medications/treatments Gastric Cancer, PE, DM2, Bipolar. Assessment: Patient still reporting severe pain and currently driving to her treatment. I let her know her treatment is not until 1 pm. She is leaving now to see if someone can help her. She reports having only 1 [place] tablet left and will take soon. Advises patient she had refill for 60 tablets of [place] on 04/18 and should not only have [...] it as recommended. Recommendations: Per Ann Richter TRAFFIC EXPERT to review. , patient directed to by nurse to seek emergent care if pain severe. Oncology Team: Oncology SW: Can we have Oncology SW follow up with patient today? April Frye RN April 21, 2024 9:43 AM Lillie Richter APRN.TRAFFIC EXPERT 04/21/2024 10:22 AM Signed I agree if pain is that severe she should present to ED to rule out any complications such as bowel obstruction. Prior to our first meeting, Kaya had a bottle of opioids that was provided to her by oncology stomichael, she told them she filed a police report, but was unable to provide a copy. This is my first rx given to her and we arelisivley reviewed and she signed opioid contract with [...] plan, we can refer her to another pall meed program. Lillie Richter APRN.TRAFFIC EXPERT 04/21/2024 10:29 AM Signed I also placed [...] virtually. If she cannot get to [facility] she needs a local referral. It will be very difficult to treat her if she has no mental health support. Lillie Richter APRN.TRAFFIC EXPERT 04/21/2024 10:29 AM Signed Addended by: LILLIE RICHTER on: 04/21/2024 10:29 AM Modules accepted: Lise Mix RN 04/21/2024 10:48 AM Signed I spoke w/ Kaya while she was here just now. Reports her pain is better this morning. Pt found the bottle of [place] prescribed per Ann. Dosing instructions reviewed. Pt took 1 dose around 9 AM. Pt is aware that she must wait until 3 PM to take her next dose. Pt verbalizes understanding. Was planning to stop and get breakfast after leaving the office. Reinforced pall med's instructions to go to the ER if her pain becomes severe or uncontrolled. Lise Connolly, April Mancilla RN 04/21/2024 3:49 PM Addendum Palliative Medicine Care Coordination Follow up Phone Call Patient identified by name and : Yes Spoke to: patient Spoke with Kaya. She had a f/u appt with her psychiatry Dr. Ramires 2 weeks ago. She reports just getting a call and scheduled an appt for a port placement at [facility] on 04/25. She also sees Natalie her psychologist regularly. Advised that she continue working with both providers to manage her mental health and anxiety so our service can provide the best care for her to mange her s (more content not included)... [facility] KAYA SCHILLING ([id number]) 1965 F Date Time Provider Department 04/21/24 NOEDEMETRIA AVXRPR During your visit today, we recorded the following information about you: Demetria Noe RN 04/21/2024 3:50 PM Signed You are scheduled for a Port Placement, On 04/25/2024. You are to arrive at 10:30 am and Report to [facility]: [facility]: Radiology Outpatient Desk [id number] You can expect to be here for [...] Labs: Lab-work needs to be drawn? No.. Customer Counter Associate/Transportation: How will you be arriving for your procedure? Private car. You will need a responsible adult to accompany you to and from the procedure. Your transit mixer driver is required to stay with you until you are taken into the procedure room. Spoke to patient EXTENSIVELY about instructions for procedure, when to stop medications, NPO instructions, and also that a transit mixer driver is required, and patient verbalized understanding. Patient also given phone number to call back with any questions Allergies As of Date: 04/21/2024 Noted Allergy Reaction PERCOCET (OXYCODONE-ACETAMINOPHE N)02/21/2015 8 - GI Upset STADOL (BUTORPHANOL TARTRATE) 10/26/2013 11 - Vomiting Comments: incoherent Date Reviewed: 04/21/2024 Reviewed by: Lillie Richter APRN.TRAFFIC EXPERT - Fully Assessed Reason for Visit: Radiology [...] low back pain (more content not included)... [facility]-20-2024 [facility] Telephone (AVXRPR) KAYA SCHILLING ([id number]) 1965 F Date Time Provider Department 04/20/24 DEMETRIA NOE [facility] During your visit today, we recorded the [...] Encounter Status:Closed by DEMETRIA NOE on 04/20/24 [facility] Normal [facility] CNPNon 04-19-2024 [facility] Normal [facility] CBC W Auto Differential pane l (Bld)on 04-18-2024 Basophils (Bld) [#/Vol] 0.04 10*3/uL [facility] Basophils/100 WBC (Bld) 0.7 % [facility] Differential cell count method Nom (Bld) Auto [facility] Eosinophils (Bld) [#/Vol] 0.07 10*3/uL [facility] Eosinophils/100 WBC (Bld) 1.2 % [facility] Erythrocyte distribution width (RBC) [Ratio] 17.1 % High 11.5 - 15.0 % [facility] Hematocrit (Bld) [Volume fraction] 25.3 % Low 36.0 - 46.0 % [facility] Hemoglobin (Bld) [Mass/Vol] 8.1 g/dL Low 11.5 - 15.5 g/dL [facility] Immature granulocytes (Bld) [#/Vol] NINF [facility] Immature granulocytes/100 WBC (Bld) 0.3 % [facility] Interpretation and review of laboratory results Abnormal [facility] Lymphocytes (Bld) [#/Vol] 0.95 10*3/uL Low [facility] Lymphocytes/100 WBC (Bld) 16.4 % [facility] MCH (RBC) [Entitic mass] 32.8 pg 26.0 - 34.[address] [facility] MCHC (RBC) [Mass/Vol] 32.0 g/dL 30.5 - 36.0 g/dL [facility] MCV (RBC) [Entitic vol] 102.4 fL High 80.0 - 100.[address] [facility] Monocytes (Bld) [#/Vol] 0.41 10*3/uL [facility] Monocytes/100 WBC (Bld) 7.1 % [facility] Neutrophils (Bld) [#/Vol] 4.29 10*3/uL [facility] Neutrophils/100 WBC (Bld) 74.3 % [facility] Nucleated RBC (Bld) [#/Vol] [facility] Nucleated RBC/100 WBC (Bld) [Ratio] 0.0 % /[address] [facility] Platelet mean volume (Bld) [Entitic vol] 9.1 fL 9.0 - 12.[address] [facility] Platelets (Bld) [#/Vol] 364 10*3/uL [facility] RBC (Bld) [#/Vol] 2.47 10*6/uL Low 3.90 - 5.2 0 m/uL [facility] WBC (Bld) [#/Vol] 5.78 10*3/uL [facility] Basophils (Bld) [#/Vol] 0.04 10*3/uL Normal <0.11 [facility] Comment on above: Order Comment: Speci men Type: BLOOD SPECIMENOrdering Facility: [facility] Address: [address] [place] [address] Performed By: #### 5 7021-8 ####[facility] [employer]CLIA [id number] [place] [address] Basophils/100 WBC (Bld) 0.7 % Normal [facility] Comment on above: Order Comment: Speci men Type: BLOOD SPECIMENOrdering Facility: [facility] Address: [address] [place] [address] Performed By: #### 5 7021-8 ####[facility] LABCLIA [id number] [place] [address] Differential cell count method Nom (Bld) Auto Normal [facility] Comment on above: Order Comment: Speci men Type: BLOOD SPECIMENOrdering Facility: [facility] Address: [address] [place] [address] Performed By: #### 5 7021-8 ####[facility] LABCLIA [id number] [place] [address] Eosinophils (Bld) [#/Vol] 0.07 10*3/uL Normal <0.46 [facility] Comment on above: Order Comment: Speci men Type: BLOOD SPECIMENOrdering Facility: [facility] Address: [address] [place] [address] Performed By: #### 5 7021-8 ####[facility] LABCLIA [id number] [place] [address] Eosinophils/100 WBC (Bld) 1.2 % Normal [facility] Comment on above: Order Comment: Speci men Type: BLOOD SPECIMENOrdering Facility: [facility] Address: [address] [place] [address] Performed By: #### 5 7021-8 ####[facility] LABCLIA [id number] [place] [address] Erythrocyte distribution width (RBC) [Ratio] 17.1 % High 11.5-15.0 [facility] Comment on above: Order Comment: Speci men Type: BLOOD SPECIMENOrdering Facility: [facility] Address: [address] [place] [address] Performed By: #### 5 7021-8 ####[facility] LABCLIA [id number] [place] [address] Hematocrit (Bld) [Volume fraction] 25.3 % Low 36.0-46.0 [facility] Comment on above: Order Comment: Speci men Type: BLOOD SPECIMENOrdering Facility: [facility] Address: [address] [place] [address] Performed By: #### 5 7021-8 ####[facility] LABCLIA [id number] [place] [address] Hemoglobin (Bld) [Mass/Vol] 8.1 g/dL Low 11.5-15.5 [facility] Comment on above: Order Comment: Speci men Type: BLOOD SPECIMENOrdering Facility: [facility] Address: [address] [place] [address] Performed By: #### 5 7021-8 ####[facility] LABCLIA [id number] [place] [address] Immature granulocytes (Bld) [#/Vol] 10*3/uL Normal <0.10 [facility] Comment on above: Order Comment: Speci men Type: BLOOD SPECIMENOrdering Facility: [facility] Address: [address] [place] [address] Performed By: #### 5 7021-8 ####[facility] LABCLIA [id number] [place] [address] Immature granulocytes/100 WBC (Bld) 0.3 % Normal [facility] Comment on above: Order Comment: Speci men Type: BLOOD SPECIMENOrdering Facility: [facility] Address: [address] [place] [address] Performed By: #### 5 7021-8 ####[facility] LABIA [id number] [place] [address] Lymphocytes (Bld) [#/Vol] 0.95 10*3/uL Low 1.00-4.00 [facility] Comment on above: Order Comment: Speci men Type: BLOOD SPECIMENOrdering Facility: [facility] Address: [address] [place] [address] Performed By: #### 5 7021-8 ####[facility] LABCLIA [id number] [place] [address] Lymphocytes/100 WBC (Bld) 16.4 % Normal [facility] Comment on above: Order Comment: Speci men Type: BLOOD SPECIMENOrdering Facility: [facility] Address: [address] [place] [address] Performed By: #### 5 7021-8 ####[facility] LABCLIA [id number] [place] [address] MCH (RBC) [Entitic mass] 32.8 pg Normal 26.0-34.0 [facility] Comment on above: Order Comment: Speci men Type: BLOOD SPECIMENOrdering Facility: [facility] Address: [address] [place] [address] Performed By: #### 5 7021-8 ####[facility] LABCLIA [id number] [place] [address] MCHC (RBC) [Mass/Vol] 32.0 g/dL Normal 30.5-36.0 [facility] Comment on above: Order Comment: Speci men Type: BLOOD SPECIMENOrdering Facility: [facility] Address: [address] [place] [address] Performed By: #### 5 7021-8 ####[facility] LABCLIA [id number] [place] [address] MCV (RBC) [Entitic vol] 102.4 fL High 80.0-100.0 [facility] Comment on above: Order Comment: Speci men Type: BLOOD SPECIMENOrdering Facility: [facility] Address: [address] [place] [address] Performed By: #### 5 7021-8 ####[facility] LABCLIA [id number] [place] [address] Monocytes (Bld) [#/Vol] 0.41 10*3/uL Normal <0.87 [facility] Comment on above: Order Comment: Speci men Type: BLOOD SPECIMENOrdering Facility: [facility] Address: [address] [place] [address] Performed By: #### 5 7021-8 ####[facility] LABCLIA [id number] [place] [address] Monocytes/100 WBC (Bld) 7.1 % Normal [facility] Comment on above: Order Comment: Speci men Type: BLOOD SPECIMENOrdering Facility: [facility] Address: [address] [place] [address] Performed By: #### 5 7021-8 ####[facility] LABCLIA [id number] [place] [address] Neutrophils (Bld) [#/Vol] 4.29 10*3/uL Normal 1.45-7.50 [facility] Comment on above: Order Comment: Speci men Type: BLOOD SPECIMENOrdering Facility: [facility] Address: [address] [place] [address] Performed By: #### 5 7021-8 ####[facility] LABCLIA [id number] [place] [address] Neutrophils/100 WBC (Bld) 74.3 % Normal [facility] Comment on above: Order Comment: Speci men Type: BLOOD SPECIMENOrdering Facility: [facility] Address: [address] [place] [address] Performed By: #### 5 7021-8 ####[facility] LABCLIA [id number] [place] [address] Nucleated RBC (Bld) [#/Vol] 10*3/uL Normal <0.01 [facility] Comment on above: Order Comment: Speci men Type: BLOOD SPECIMENOrdering Facility: [facility] Address: [address] [place] [address] Performed By: #### 5 7021-8 ####[facility] LABCLIA [id number] [place] [address] Nucleated RBC/100 WBC (Bld) [Ratio] 0.0 /100 WBC Normal [facility] Comment on above: Order Comment: Speci men Type: BLOOD SPECIMENOrdering Facility: [facility] Address: [address] [place] [address] Performed By: #### 5 7021-8 ####[facility] LABCLIA [id number] [place] [address] Platelet mean volume (Bld) [Entitic vol] 9.1 fL Normal 9.0-12.7 [facility] Comment on above: Order Comment: Speci men Type: BLOOD SPECIMENOrdering Facility: [facility] Address: [address] [place] [address] Performed By: #### 5 7021-8 ####[facility] LABCLIA [id number] [place] [address] Platelets (Bld) [#/Vol] 364 10*3/uL Normal 150-400 [facility] Comment on above: Order Comment: Speci men Type: BLOOD SPECIMENOrdering Facility: [facility] Address: [address] [place] [address] Performed By: #### 5 7021-8 ####[facility] LABCLIA [id number] [place] [address] RBC (Bld) [#/Vol] 2.47 10*6/uL Low 3.90-5.20 [facility] Comment on above: Order Comment: Speci men Type: BLOOD SPECIMENOrdering Facility: [facility] Address: [address] [place] [address] Performed By: #### 5 7021-8 ####[facility] LABCLIA [id number] [place] [address] WBC (Bld) [#/Vol] 5.78 10*3/uL Normal 3.70-11.00 [facility] Comment on above: Order Comment: Speci men Type: BLOOD SPECIMENOrdering Facility: [facility] Address: [address] [place] [address] Performed By: #### 5 7021-8 ####[facility] LABCLIA [id number] [place] [address] CNOVSPon 04-18-2024 CNOVSP Normal [facility] CNPNon 04-18-2024 CNPN Normal [facility] Comprehensive metabolic 2000 panelOrdered By: Lisseth Gleason on 04-18-2024 Albumin [Mass/Vol] 3.8 g/dL Low 3.9 - 4.9 g/dL [facility] ALP [Catalytic activity/Vol] 92 U/L 34 - 123 U/L [facility] ALT [Catalytic activity/Vol] 10 U/L 7 - 38 U/L [facility] Anion gap [Moles/Vol] 10 mmol/L 8 - 15 mmol/L [facility] AST [Catalytic activity/Vol] 20 U/L 13 - 35 U/L [facility] Bilirubin [Mass/Vol] 0.3 mg/dL 0.2 - 1.3 mg/dL [facility] Calcium [Mass/Vol] 11.5 mg/dL High 8.5 - 10. 2 mg/dL [facility] Chloride [Moles/Vol] 98 mmol/L 98 - 107 mmol/L [facility] CO2 [Moles/Vol] 25 mmol/L 22 - 30 mmol/L [facility] Creatinine [Mass/Vol] 1.39 mg/dL High 0.58 - 0.96 mg/dL [facility] GFR/1.73 sq M.predicted among non-blacks MDRD (S/P/Bld) [Vol rate/Area] 44 mL/min/{1.73_m2} Low - PINF [facility] Comment on above: Estimated Glomerular Filtration Rate (eGFR) is calculated using the 202 CKD-EPI creatinine equation. This equation utilizes serum creatinine, sex, and age as parameters. The creatinine assay has traceable calibration to isotope dilution-mass spectrometry. Refer to KDIGO guidelines for clinical interpretation. In patients with unstable renal function, e.g. those with acute kidney injury, the eGFR may not accurately reflect actual GFR. Glucose [Mass/Vol] 193 mg/dL High 74 - 99 mg/dL [facility] Comment on above: The [place] Diabete s Association (ADA) provides guidance for [...] Standards of Medical Care in Diabetes 2016, [place] Diabetes Association. Diabetes Care. 2016.39(Suppl 1). Interpretation and review of laboratory results Abnormal [facility] Potassium [Moles/Vol] 4.1 mmol/L 3.7 - 5.1 mmol/L [facility] Protein [Mass/Vol] 6.8 g/dL 6.3 - 8.0 g/dL [facility] Sodium [Moles/Vol] 133 mmol/L Low 136 - 144 mmol/L [facility] Urea nitrogen [Mass/Vol] 17 mg/dL 7 - 21 mg/dL [facility] Comprehensive metabolic 2000 panelon 04-18-2024 Albumin [Mass/Vol] 3.8 g/dL Low 3.9-4.9 [facility] Comment on above: Order Comment: Speci men Type: BLOOD SPECIMENOrdering Facility: [facility] Address: [address] [place] [address] Performed By: #### 2 4323-8 ####[facility] LABCLIA [id number] [place] [address] ALP [Catalytic activity/Vol] 92 U/L Normal 34-123 [facility] Comment on above: Order Comment: Speci men Type: BLOOD SPECIMENOrdering Facility: [facility] Address: [address] [place] [address] Performed By: #### 2 4323-8 ####[facility] LABCLIA [id number] [place] [address] ALT [Catalytic activity/Vol] 10 U/L Normal 7-38 [facility] Comment on above: Order Comment: Speci men Type: BLOOD SPECIMENOrdering Facility: [facility] Address: [address] [place] [address] Performed By: #### 2 4323-8 ####[facility] LABCLIA [id number] [place] [address] Anion gap [Moles/Vol] 10 mmol/L Normal 8-15 [facility] Comment on above: Order Comment: Speci men Type: BLOOD SPECIMENOrdering Facility: [facility] Address: [address] [place] [address] Performed By: #### 2 4323-8 ####[facility] LABCLIA [id number] [place] [address] AST [Catalytic activity/Vol] 20 U/L Normal 13-35 [facility] Comment on above: Order Comment: Speci men Type: BLOOD SPECIMENOrdering Facility: [facility] Address: [address] [place] [address] Performed By: #### 2 4323-8 ####[facility] LABCLIA [id number] [place] [address] Bilirubin [Mass/Vol] 0.3 mg/dL Normal 0.2-1.3 [facility] Comment on above: Order Comment: Speci men Type: BLOOD SPECIMENOrdering Facility: [facility] Address: [address] [place], [place] [address] Performed By: #### 2 4323-8 ####[facility] LABCLIA [id number] [place] [address] Calcium [Mass/Vol] 11.5 mg/dL High 8.5-10.2 [facility] Comment on above: Order Comment: Speci men Type: BLOOD SPECIMENOrdering Facility: [facility] Address: [address] [place] [address] Performed By: #### 2 4323-8 ####[facility] LABCLIA [id number] [place] [address] Chloride [Moles/Vol] 98 mmol/L Normal 98-107 [facility] Comment on above: Order Comment: Speci men Type: BLOOD SPECIMENOrdering Facility: [facility] Address: [address] [place] [address] Performed By: #### 2 4323-8 ####[facility] LABCLIA [id number] [place] [address] CO2 [Moles/Vol] 25 mmol/L Normal 22-30 [facility] Comment on above: Order Comment: Speci men Type: BLOOD SPECIMENOrdering Facility: [facility] Address: [address] [place] [address] Performed By: #### 2 4323-8 ####[facility] LABCLIA [id number] [place] [address] Creatinine [Mass/Vol] 1.39 mg/dL High 0.58-0.96 [facility] Comment on above: Order Comment: Speci men Type: BLOOD SPECIMENOrdering Facility: [facility] Address: [address] [place] [address] Performed By: #### 2 4323-8 ####[facility] LABCLIA [id number] [place] [address] Creatinine and Glomerular filtration rate.predicted panel (S/P/Bld) 44 mL/min/1.73m??? Low >=60 [facility] Comment on above: Order Comment: Speci men Type: BLOOD SPECIMENOrdering Facility: [facility] Address: [address] [place] [address] Result Comment: Carmen mated Glomerular Filtration Rate [...] 2 4323-8 ####[facility] LABIA [id number] [place] [address] Glucose [Mass/Vol] 193 mg/dL High 74-99 [facility] Comment on above: Order Comment: Speci men Type: BLOOD SPECIMENOrdering Facility: [facility] Address: [address] [place], [place] [address] Result Comment: The [place] Diabetes Association (ADA) provides guidance for cutoff values for fasting glucose and random glucose. The ADA defines fasting as no caloric intake for at least 8 hours. Fasting plasma glucose results between 100 to 125 mg/dL indicate increased risk for diabetes (prediabetes).Fasting plasma glucose results greater than or equal to 126 mg/dL meet the criteria for diagnosis of diabetes. In the absence of unequivocal hyperglycemia, results should be confirmed by repeat testing. In a patient with classic symptoms of hyperglycemia or hyperglycemic crisis, random plasma glucose results greater than or equal to 200 mg/dL meet the criteria for diagnosis of diabetes.Reference: Standards of Medical Care in Diabetes 2016, [place] Diabetes Association. Diabetes Care. 2016.39(Suppl 1). Performed By: #### 2 4323-8 ####[facility] LABIA [id number] [place] [address] Potassium [Moles/Vol] 4.1 mmol/L Normal 3.7-5.1 [facility] Comment on above: Order Comment: Speci men Type: BLOOD SPECIMENOrdering Facility: [facility] Address: [address] [id number] Performed By: #### 2 4323-8 ####[facility] LABCLIA [id number] [place] [address] Protein [Mass/Vol] 6.8 g/dL Normal 6.3-8.0 [facility] Comment on above: Order Comment: Paco men Type: BLOOD SPECIMENOrdering Facility: [facility] Address: [address] [place] [address] Performed By: #### 2 4323-8 ####[facility] LABCLIA [id number] [place] [address] Sodium [Moles/Vol] 133 mmol/L Low 136-144 [facility] Comment on above: Order Comment: Speci men Type: BLOOD SPECIMENOrdering Facility: [facility] Address: [address] [place] [address] Performed By: #### 2 4323-8 ####[facility] LABCLIA [id number] [place] [address] Urea nitrogen [Mass/Vol] 17 mg/dL Normal 7-21 [facility] Comment on above: Order Comment: Speci men Type: BLOOD SPECIMENOrdering Facility: [facility] Address: [address] [place] [address] Performed By: #### 2 4323-8 ####[facility] LABCLIA [id number] [place] [address] CNPNon 04-17-2024 CNPN Normal [facility] CNPNon 04-15-2024 CNPN Normal [facility] CNCNPATEDon 04-14-2024 CNCNPATED Normal [facility] CNOVon 04-14-2024 CNOV Normal [facility] PAIN PANEL, UR QUANTon 04-14 3-Llcuyfppjm-3,5-Di methyl-3,3-Diphenyl pyrrolidine (EDDP) Confirm (U) [Mass/Vol] <6 Normal <6 [facility] Comment on above: Order Comment: Speci men Type: URINE SPECIMENOrdering Facility: [facility] Address: [address] [place] [address] Result Comment: EDDP is a metabolite of methadone. Performed By: #### L [id number] ####[facility] LABCLIA [id number] [place] [id number] [place] 6-Monoacetylmorphin e (6-MARICEL) (U) [Mass/Vol] <5 Normal <5 [facility] Comment on above: Order Comment: Speci men Type: URINE SPECIMENOrdering Facility: [facility] Address: [address] [place] [address] Result Comment: 6-MA M (6-monoacetylmorphine, also known as 6-acetylmorphine) is a unique metabolite of heroin. Presence of 6-MARICEL indicates use of heroin. 6-MARICEL is further metabolized to morphine and absence of 6-MARICEL does not rule out the use of heroin. Performed By: #### L [id number] ####[facility] LABIA [id number] [place] [address] [place] Amphetamine Confirm (U) [Mass/Vol] <5 Normal <5 [facility] Comment on above: Order Comment: Speci men Type: URINE SPECIMENOrdering Facility: [facility] Address: [address] [place] [address] Performed By: #### L [id number] ####[facility] [id number] [place] [address] [place] Benzoylecgonine Confirm (U) [Mass/Vol] <24 Normal <24 [facility] Comment on above: Order Comment: Speci men Type: URINE SPECIMENOrdering Facility: [facility] Address: [address] [place] [address] Result Comment: Mario oylecgonine is a metabolite of cocaine. Performed By: #### L [id number] ####[facility] LABIA [id number] [place] [address] [place] Buprenorphine (U) [Mass/Vol] <20 Normal <20 [facility] Comment on above: Order Comment: Speci men Type: URINE SPECIMENOrdering Facility: [facility] Address: [address] [place] [address] Performed By: #### L [id number] ####[facility] LABIA [id number] [place] [address] [place] Cannabinoids Confirm (U) [Mass/Vol] <16 Normal <16 [facility] Comment on above: Order Comment: Speci men Type: URINE SPECIMENOrdering Facility: [facility] Address: [address] [place] [address] Result Comment: Tetr ahydrocannabinol carboxylic acid (THCA) is a metabolite of uvopo-1-mnunjjmvjyslukhmuqgx which is the main active component of marijuana. Performed By: #### L [id number] ####[facility] LABIA [id number] [place] [address] [place] Codeine Confirm (U) [Mass/Vol] <11 Normal <11 [facility] Comment on above: Order Comment: Speci men Type: URINE SPECIMENOrdering Facility: [facility] Address: [address] [place] [address] Performed By: #### L [id number] ####[facility] [id number] [place] [address] [place] Dihydrocodeine Confirm (U) [Mass/Vol] 708 ng/mL High <5 [facility] Comment on above: Order Comment: Speci men Type: URINE SPECIMENOrdering Facility: [facility] Address: [address] [place] [address] Result Comment: The presence of dihydrocodeine may arise from dihydrocodeine containing drugs or from the metabolism of hydrocodone. Performed By: #### L [id number] ####[facility] LABIA [id number] [place] [address] [place] fentaNYL Confirm (U) [Mass/Vol] <6 Normal <6 [facility] Comment on above: Order Comment: Speci men Type: URINE SPECIMENOrdering Facility: [facility] Address: [address] [place] [address] Performed By: #### L [id number] ####[facility] LABCLIA [id number] [place] [address] [place] HYDROcodone Confirm (U) [Mass/Vol] 4329 ng/mL High <8 [facility] Comment on above: Order Comment: Speci men Type: URINE SPECIMENOrdering Facility: [facility] Address: [address] [place] [address] Result Comment: Hydr ocodone may arise from hydrocodone containing drugs or by metabolism of dihydrocodeine. Hydrocodone is also a minor metabolite of codeine, and may be detected with elevated levels of codeine. Hydrocodone is metabolized to hydromorphone and dihydrocodeine. Performed By: #### L [id number] ####[facility] LABCLIA [id number] [place] [address] [place] HYDROmorphone Confirm (U) [Mass/Vol] 4809 ng/mL High <5 [facility] Comment on above: Order Comment: Speci men Type: URINE SPECIMENOrdering Facility: [facility] Address: [address] [place] [address] Result Comment: Hydr omorphone may arise from hydromorphone containing drugs or by metabolism of morphine and hydrocodone. Performed By: #### L [id number] ####[facility] LABCLIA [id number] [place] [address] [place] Methadone Confirm (U) [Mass/Vol] <16 Normal <16 [facility] Comment on above: Order Comment: Speci men Type: URINE SPECIMENOrdering Facility: [facility] Address: [address] [place] [address] Performed By: #### L [id number] ####[facility] LABCLIA [id number] [place] [address] [place] Methamphetamine Confirm (U) [Mass/Vol] <8 Normal <8 [facility] Comment on above: Order Comment: Speci men Type: URINE SPECIMENOrdering Facility: [facility] Address: [address] [place] [address] Performed By: #### L [id number] ####[facility] LABIA [id number] [place] [address] [place] Morphine Confirm (U) [Mass/Vol] <10 Normal <10 [facility] Comment on above: Order Comment: Speci men Type: URINE SPECIMENOrdering Facility: [facility] Address: [address] [place] [address] Result Comment: Morp taylor is a metabolite of codeine and heroin. Performed By: #### L [id number] ####[facility] [id number] [place] [address] [place] Norbuprenorphine (U) [Mass/Vol] <20 Normal <20 [facility] Comment on above: Order Comment: Speci men Type: URINE SPECIMENOrdering Facility: [facility] Address: [address] [place] [address] Result Comment: Norb uprenorphine is the primary active metabolite of buprenorphine. Performed By: #### L [id number] ####[facility] [id number] [address] [place] Norfentanyl Confirm (U) [Mass/Vol] <6 Normal <6 [facility] Comment on above: Order Comment: Speci men Type: URINE SPECIMENOrdering Facility: [facility] Address: [address] [place] [address] Result Comment: Norf entanyl is a metabolite of fentanyl. Performed By: #### L [id number] ####[facility] [id number] [address] [place] Nortramadol (U) [Mass/Vol] <20 Normal <20 [facility] Comment on above: Order Comment: Speci men Type: URINE SPECIMENOrdering Facility: [facility] Address: [address] [place] [address] Result Comment: Desm ethyltramadol is a metabolite of tramadol. Performed By: #### L [id number] ####[facility] LABIA [id number] [place] [address] [place] NOTE,UR PAIN CALABRESE Normal [facility] Comment on above: Order Comment: Speci men Type: URINE SPECIMENOrdering Facility: [facility] Address: [address] [place] [address] Result Comment: This test is for medical use only.This test was developed and its performance characteristics determined by [facility]'s [facility]wat [facility] Pathology and Laboratory Medicine [place] ([facility]). It has not been cleared or approved by the FDA. [facility] is regulated under CLIA as qualified to perform high-complexity testing. This test is used for clinical purposes. It should not be regarded as investigational or for research. Performed By: #### L [id number] ####[facility] LABIA [id number] [place] [address] [place] oxyCODONE Confirm (U) [Mass/Vol] <10 Normal <10 [facility] Comment on above: Order Comment: Speci men Type: URINE SPECIMENOrdering Facility: [facility] Address: [address] [place] [address] Performed By: #### L [id number] ####[facility] LABIA [id number] [place] [address] [place] oxyMORphone Confirm (U) [Mass/Vol] <5 Normal <5 [facility] Comment on above: Order Comment: Speci men Type: URINE SPECIMENOrdering Facility: [facility] Address: [address] [place] [address] Result Comment: Oxym orphone is a metabolite of oxycodone. Performed By: #### L [id number] ####[facility] LABIA [id number] [place] [address] [place] traMADol Confirm (U) [Mass/Vol] <25 Normal <25 [facility] Comment on above: Order Comment: Speci men Type: URINE SPECIMENOrdering Facility: [facility] Address: [address] [place] [address] Performed By: #### L [id number] ####[facility] LABIA [id number] [place] [address] [place] SPECIMEN VALIDITY, URINEon 0 04-14-2024 CHROMATE,URINE <10 Normal <50 [facility] Comment on above: Order Comment: Speci men Type: URINE SPECIMENOrdering Facility: [facility] Address: [address] [place] [address] Performed By: #### L [id number] ####[facility] LABCLIA [id number] [place] [address] [place] CREATININE,URINE 123.2 mg/dL Normal 20.0-300.0 [facility] Comment on above: Order Comment: Speci men Type: URINE SPECIMENOrdering Facility: [facility] Address: [address] [place] [address] Performed By: #### L [id number] ####[facility] LABIA [id number] [place] [address] [place] NITRITES,URINE <50 Normal <500 [facility] Comment on above: Order Comment: Speci men Type: URINE SPECIMENOrdering Facility: [facility] Address: [address] [place] [address] Performed By: #### L [id number] ####[facility] LABIA [id number] [place] [address] [place] OXIDANTS,URINE 65 mg/L Normal <200 [facility] Comment on above: Order Comment: Speci men Type: URINE SPECIMENOrdering Facility: [facility] Address: [address] [place] [address] Performed By: #### L [id number] ####[facility] LABIA [id number] [place] [address] [place] pH (U) 5.6 [pH] Normal 4.5-8.0 [facility] Comment on above: Order Comment: Speci men Type: URINE SPECIMENOrdering Facility: [facility] Address: [address] [place] [address] Performed By: #### L [id number] ####[facility] LABCLIA [id number] [place] [address] [place] SPEC GRAVITY,UR 1.007 Normal 1.003-1.035 [facility] Comment on above: Order Comment: Speci men Type: URINE SPECIMENOrdering Facility: [facility] Address: [address] [place] [address] Performed By: #### L [id number] ####[facility] LABCLIA [id number] [address] [place] SPECIMEN VALIDITY QUALITY Specimen quality results within acceptable limits Normal [facility] Comment on above: Order Comment: Speci men Type: URINE SPECIMENOrdering Facility: [facility] Address: [address] [place] [address] Performed By: #### L [id number] ####[facility] LABCLIA [id number] [place] [address] [place] TOXICOLOGY SCREEN, ROUTINE U RINEon 04-14-2024 Amphetamines Confirm (U) [Mass/Vol] Negative Negative [facility] Comment on above: Cutoff threshold at 1000 ng/mL. Barbiturates Urine Negative Negative [facility] Comment on above: Cutoff threshold at 200 ng/mL. Benzodiazepines Urine Positive Abnormal Negative [facility] Comment on above: Cutoff threshold at 200 ng/mL. Cannabinoids Screen Ql (U) Negative Negative [facility] Comment on above: Cutoff threshold at 50 ng/mL. Cocaine Ql (U) Negative Negative [facility] Comment on above: Cutoff threshold at 300 ng/mL. Ethanol (U) [Mass/Vol] mg/dL NINF - 11 mg/dL [facility] Interpretation and review of laboratory results Abnormal [facility] Opiates Screen Ql (U) Positive Abnormal Negative [facility] Comment on above: Cutoff threshold at 300 ng/mL. oxyCODONE cutoff Screen (U) [Mass/Vol] Negative Negative [facility] Comment on above: Cutoff threshold at 100 ng/mL. Phencyclidine Ql (U) Negative Negative [facility] Comment on above: Cutoff threshold at [...] on the same specimen through Client Services ([phone]) if contacted within 48 hours of initial testing. [1]Substance Abuse and Mental Health Services Administration (2012). Clinical Drug Testing in Primary Care Technical Assistance Publication Series 32. Department of Health and Human Services, [place], p.10. [facility] Amphetamines Confirm (U) [Mass/Vol] Negative Normal Negative [facility] Comment on above: Order Comment: Speci men Type: URINE SPECIMENOrdering Facility: [facility] Address: [address] [place] [address] Result Comment: Cuto ff threshold at 1000 ng/mL. Performed By: #### U TOX2 ####[facility] LABIA [id number] [place] [address] [place] BARBITURATES, URINE Negative Normal Negative [facility] Comment on above: Order Comment: Speci men Type: URINE SPECIMENOrdering Facility: [facility] Address: [address] [place] [address] Result Comment: Cuto ff threshold at 200 ng/mL. Performed By: #### U TOX2 ####[facility] LABIA [id number] [place] [address] [place] BENZODIAZEPINES, UR Positive Abnormal Negative [facility] Comment on above: Order Comment: Speci men Type: URINE SPECIMENOrdering Facility: [facility] Address: [address] [place] [address] Result Comment: Cuto ff threshold at 200 ng/mL. Performed By: #### U TOX2 ####[facility] LABCLIA [id number] [place] [address] [place] Cannabinoids Screen Ql (U) Negative Normal Negative [facility] Comment on above: Order Comment: Speci men Type: URINE SPECIMENOrdering Facility: [facility] Address: [address] [place] [address] Result Comment: Cuto ff threshold at 50 ng/mL. Performed By: #### U TOX2 ####[facility] LABCLIA [id number] [place] [address] [place] Cocaine Ql (U) Negative Normal Negative [facility] Comment on above: Order Comment: Speci men Type: URINE SPECIMENOrdering Facility: [facility] Address: [address] [place] [address] Result Comment: Cuto ff threshold at 300 ng/mL. Performed By: #### U TOX2 ####[facility] LABCLIA [id number] [place] [address] [place] Ethanol (U) [Mass/Vol] <11 Normal <11 [facility] Comment on above: Order Comment: Speci men Type: URINE SPECIMENOrdering Facility: [facility] Address: [address] [place] [address] Performed By: #### U TOX2 ####[facility] LABCLIA [id number] [place] [address] [place] Opiates Screen Ql (U) Positive Abnormal Negative [facility] Comment on above: Order Comment: Speci men Type: URINE SPECIMENOrdering Facility: [facility] Address: [address] [place] [address] Result Comment: Cuto ff threshold at 300 ng/mL. Performed By: #### U TOX2 ####[facility] LABCLIA [id number] [place] [address] [place] oxyCODONE cutoff Screen (U) [Mass/Vol] Negative Normal Negative [facility] Comment on above: Order Comment: Speci men Type: URINE SPECIMENOrdering Facility: [facility] Address: [address] [place] [address] Result Comment: Cuto ff threshold at 100 ng/mL. Performed By: #### U TOX2 ####[facility] LABCLIA [id number] [place] [address] [place] Phencyclidine Ql (U) Negative Normal Negative [facility] Comment on above: Order Comment: Speci men Type: URINE SPECIMENOrdering Facility: [facility] Address: [address] [place] [address] Result Comment: Cuto ff threshold at 25 ng/mL. Performed By: #### U TOX2 ####[facility] LABCLIA [id number] [place] [address] [place] CNPNon 04-12-2024 CNPN Normal [facility] CNPNon 04-10-2024 CNPN Normal [facility] CNPNon 04-07-2024 CNPN Normal [facility] CNNURSEon 04-06-[address] CNNURSE [address] [facility] CT ABDOMEN W IVCONon 024 CT ABDOMEN W IVCON Normal [facility] CT Abdomen W contrast Le 0 04-06-2024 * * *Final Report* * * DATE OF EXAM: Apr 06 2024 3:16PM [facility] 0533 - CT ABDOMEN W IVCON / [...] of upper abdominal perigastric and retroperitoneal lymphadenopathy. [employer] measurements are detailed as follows on series [...] reported separately. Localizer images: No additional findings. DIVISION OF RADIOLOGY Provider, [facility] - 04/06/2024 * * *Final Report* * * DATE OF EXAM: Apr 06 2024 3:16PM [facility] 0533 - CT ABDOMEN W IVCON / [...] of upper abdominal perigastric and retroperitoneal lymphadenopathy. [employer] measurements are detailed as follows on series [...] reported separately. Localizer images: No additional findings. IMPRESSION IMPRESSION: 1. Since 11/18/2013, diffuse progression of gastric mass and upper abdominal lymphadenopathy. Confluent soft tissue extending inferiorly from the posterior gastric body/cardia along the left retroperitoneum has diffusely increased and is likely (more content not included)... [facility] CT CHEST W IVCONon CT CHEST W IVCON [facility] W contrast Le IMPRESSION: 1. Left supraclavicular lymphadenopathy, similar in [...] any questions regarding this interpretation, please call [phone]. If you are unable to reach us at the number above, please feel free to contact [facility] at [phone]. DIVISION OF RADIOLOGY * * *Final Report* * * DATE OF EXAM: Apr 06 2024 3:16PM [facility] 0539 - CT CHEST W IVCON / [...] are a few noncalcified pulmonary nodules, with sales and marketing representative measurements detailed as follows on series [...] There are numerous enlarged supraclavicular lymph nodes. [employer] measurements are detailed as follows on series [...] upper abdomen. Localizer images: No additional findings. DIVISION OF RADIOLOGY Provider, [facility] - 04/06/2024 * * *Final Report* * * DATE OF EXAM: Apr 06 2024 3:16PM [facility] 0539 - CT CHEST W IVCON / [...] are a few noncalcified pulmonary nodules, with sales and marketing representative measurements detailed as follows on series [...] There are numerous enlarged supraclavicular lymph nodes. [employer] measurements are detailed as follows on series [...] upper abdomen. Localizer images: No additional findings. IMPRESSION IMPRESSION: 1. Left supraclavicular lymphadenopathy, similar in [...] any questions regarding this interpretation, please call [phone]. If you are unable to reach us at the number above, please feel free to contact [facility] eRadiology at [phone]. [facility] CT Chest W contrast IVOrdere d By: Ccf Provider on 04-06-2024 [facility] GLUCOSE, BLOOD (POC)on 04-06 Glucose [Mass/Vol] 122 mg/dL Abnormal 74 - 99 mg/dL [facility] Comment on above: Location:[facility], [address] [place] [address] , [place], [place], [address] The Accu-Chek Inform II glucose meter has not been approved for testing on patients receiving intensive medical intervention or therapy and results from this point of care glucose test should not be used for patient management decisions in these cases. Inaccurate results may also occur from other interfering factors, such as N-acetylcysteine (blood concentrations of greater than 5mg/dL), galactose, extremes of hematocrit (<10 or >65), or high doses of ascorbic acid (vitamin C) greater than 3mg/dL. Consider alternate testing mechanisms (e.g. core lab, blood gas instrument) in the above situations. Interpretation and review of laboratory results Abnormal [facility] NM PET/CT SKULL-THIGH INITon 04-06-2024 NM PET/CT SKULL-THIGH INIT Normal [facility] Panel Informationon 04-06 Radiology Study observation (narrative) 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 If you are unable to reach us at the number above, please feel free to contact [facility]Radiology at [phone]. DIVISION OF RADIOLOGY * * *Final Report* * * DATE [...] * Radiopharmaceutical Activity: 7.2 mCi * Radiopharmaceutical: U65-Hwatzrpzvyyuzvxbnv (FDG) * All reported standardized uptake values represent maximum SUV (SUVmax) per body weight, unless otherwise specified. CORRELATION: RESULT: REFERENCES: SUV reference values: * Blood pool (descending aorta) activity: SUVmax 2.4 * Background liver activity: SUVmax 2.9 Ux Manager (topogram) images: No additional findings. Notes and [...] NECK: Imaged Head: No abnormal uptake. Neck & Lymph Nodes: Hypermetabolic left lower cervical/supraclavicula r lymphadenopathy. For example a left medial supraclavicular lymph node measures 1.4 x 2.1 cm (max SUV 4.2, image 3/40), left posterior supraclavicular region lymph lymph node measuring about 1.6 cm (max SUV 4.3, image 3/38 Thyroid: No abnormal uptake. CHEST: Lungs & Airways: No abnormal uptake. Pleura & Pericardium: No abnormal uptake. Bilateral small pleural effusions. Cardiovascular: No abnormal uptake. Mediastinum & Lymph Nodes: Few hypermetabolic mediastinal lymph nodes. [...] abnormal uptake. Vasculature: No abnormal uptake. Retroperitoneum & Lymph Nodes: Hypermetabolic lymphadenopathy involving gastrohepatic, peripancreatic, [...] osseous metastases. Soft Tissues: No abnormal uptake. DIVISION OF RADIOLOGY Provider, [facility] - 04/06/2024 * * *Final Report* * * DATE [...] * Radiopharmaceutical Activity: 7.2 mCi * Radiopharmaceutical: G82-Smovyakpsixceiecec (FDG) * All reported standardized uptake values represent maximum SUV (SUVmax) per body weight, unless otherwise specified. CORRELATION: RESULT: REFERENCES: SUV reference values: * Blood pool (descending aorta) activity: SUVmax 2.4 * Background liver activity: SUVmax 2.9 Ux Manager (topogram) images: No additional findings. Notes and [...] NECK: Imaged Head: No abnormal uptake. Neck & Lymph Nodes: Hypermetabolic left lower cervical/supraclavicula r lymphadenopathy. For example a left medial supraclavicular lymph node measures 1.4 x 2.1 cm (max SUV 4.2, image 3/40), left posterior supraclavicular region lymph lymph node measuring about 1.6 cm (max SUV 4.3, image 3/38 Thyroid: No abnormal uptake. CHEST: Lungs & Airways: No abnormal uptake. Pleura & Pericardium: No abnormal uptake. Bilateral small pleural effusions. Cardiovascular: No abnormal uptake. Mediastinum & Lymph Nodes: Few hypermetabolic mediastinal lymph nodes. [...] abnormal uptake. Vasculature: No abnormal uptake. Retroperitoneum & Lymph Nodes: Hypermetabolic lymphadenopathy involving gastrohepatic, peripancreatic, [...] osseous metastases. Soft Tissues: No abnormal uptake. IMPRESSION IMPRESSION: HEAD/NECK: * Hypermetabolic left lower cervical/supraclavicula [...] This examination was interpreted and the report (more content not included)... [facility] PET+CT Guidance for localiza tion of tumor of Skull base to mid-thigh-- W 18F-FDG IVOrdered By: Ccf Provider on 04-06-2024 [facility] Surgical Pathologyon 024 Surgical Pathology Normal [facility] Comment on above: Result Comment: [facility] [address] [place] [address] Surgical Pathology Consultation ADDENDUM [place] Patient Name:KAYA SCHILLING:1965 (Age: 59)Gender:FTaken:4Reported:4Physician(s):Beto Vivar MD ([phone])Copy To: Rec. #:[id number]: #[id number] Final Pathologic Diagnosis Gastric biomarker Reporting Template [...] Formalin (Formalin-fixed, paraffin embedded tissue) MLH1: Vendor: [employer], Primary Antibody: M1 MSH2: Vendor: [employer], Primary Antibody: [id number] MSH 6: Vendor: [employer], Primary Antibody: 44 PMS2: Vendor: [employer], Primary Antibody: A16-4 Detection System: MLH1, MSH2, PMS2: [employer] OptiView DAB IHC Detection Kit (indirect biotin-free detection) MSH6: [employer] ultraView [place] DAB Detection Kit (indirect biotin-free detection) MSH6 was developed and its performance characteristics determined by the [facility] Immunohistochemistry Department. It has [...] Carcinoma of the Colon and Rectum. Version: Logentries 1.2.0.1. Template posting date: August 2014. [email or web address] [...] Formalin (Formalin-fixed, paraffin embedded tissue) MLH1: Vendor: [employer], Primary Antibody: M1 MSH2: Vendor: [employer], Primary Antibody: [id number] MSH 6: Vendor: [employer], Primary Antibody: 44 PMS2: Vendor: [employer], Primary Antibody: A16-4 Detection System: MLH1, MSH2, PMS2: [employer] OptiView DAB IHC Detection Kit (indirect biotin-free detection) MSH6: [employer] ultraView [place] DAB Detection Kit (indirect biotin-free detection) MSH6 was developed and its performance characteristics determined by the [facility] Immunohistochemistry Department. It has [...] Carcinoma of the Colon and Rectum. Version: Voxelmarkers 1.2.0.1. Template posting date: August 2014. [email or web address] Rigoberto Fischer MD Interpretation performed at [facility], [address] [place] [address], License number: [id number]. Gross Description Per (more content not included)... CNCNPATEDon 04-03-2024 CNCNPATED Normal [facility] CNPNon 03-28-2024 CNPN Normal [facility] CNPNon 03-27-2024 CNPN Normal [facility] CA 19-9on 03-24-2024 Cancer Ag 19-9 Qn 806.0 [arb'U]/mL High NINF - 36.0 U/mL [facility] Comment on above: Cancer antigen 19-9 test is used as an aid in monitoring response to treatment or recurrence in patients with established pancreatic, hepatobiliary, or gastrointestinal malignancies. Clinical correlation is required. The CA 19-9 Antigen test was performed using the Whole Opticsel DXI paramagnetic particle chemiluminescent immunoassay method. Results obtained with different assay methods or kits cannot be used interchangeably. CARCINOEMBRYONIC ANTIGENon 0 03-24-2024 Carcinoembryonic Ag [Mass/Vol] 2.2 ng/mL NINF - 2.9 ng/mL [facility] Comment on above: Carcinoembryonic ant igen test is used as an aid in monitoring response to treatment or recurrence in patients with established colorectal, breast, lung, prostatic, pancreatic, and ovarian carcinomas. Clinical correlation is required. The Carcinoembryonic antigen test was performed using the Whole Opticsel DXI paramagnetic particle chemiluminescent immunoassay method. Results obtained with different assay methods or kits cannot be used interchangeably. CNPNon 03-24-2024 CNPN Normal [facility] Cancer Ag 19-9 Qnon 03-24-20 Interpretation and review of laboratory results Abnormal [facility] Carcinoembryonic Ag [Mass/Vo l]on 03-24-2024 Interpretation and review of laboratory results Normal [facility] Cobalamin (Vitamin B12) [Mas s/Vol]on 03-24-2024 Interpretation and review of laboratory results Abnormal [facility] Comprehensive metabolic 2000 panelOrdered By: Grisel Ludwig on 03-24-2024 Albumin [Mass/Vol] 3.8 g/dL Low 3.9 - 4.9 g/dL [facility] ALP [Catalytic activity/Vol] 110 U/L 34 - 123 U/L [facility] ALT [Catalytic activity/Vol] 7 U/L 7 - 38 U/L [facility] Anion gap [Moles/Vol] 9 mmol/L 8 - 15 mmol/L [facility] AST [Catalytic activity/Vol] 18 U/L 13 - 35 U/L [facility] Bilirubin [Mass/Vol] 0.4 mg/dL 0.2 - 1.3 mg/dL [facility] Calcium [Mass/Vol] 10.8 mg/dL High 8.5 - 10. 2 mg/dL [facility] Chloride [Moles/Vol] 104 mmol/L 98 - 107 mmol/L [facility] CO2 [Moles/Vol] 24 mmol/L 22 - 30 mmol/L [facility] Creatinine [Mass/Vol] 1.25 mg/dL High 0.58 - 0.96 mg/dL [facility] GFR/1.73 sq M.predicted among non-blacks MDRD (S/P/Bld) [Vol rate/Area] 49 mL/min/{1.73_m2} Low - PINF [facility] Comment on above: Estimated Glomerular Filtration [...] 227 mg/dL High 74 - 99 mg/dL [facility] Comment on above: The [place] Diabete s Association (ADA) provides guidance for [...] Standards of Medical Care in Diabetes 2016, [place] Diabetes Association. Diabetes Care. 2016.39(Suppl 1). Interpretation and review of laboratory results Abnormal [facility] Potassium [Moles/Vol] 3.7 mmol/L 3.7 - 5.1 mmol/L [facility] Protein [Mass/Vol] 6.9 g/dL 6.3 - 8.0 g/dL [facility] Sodium [Moles/Vol] 137 mmol/L 136 - 144 mmol/L [facility] Urea nitrogen [Mass/Vol] 24 mg/dL High 7 - 21 mg/dL [facility] VITAMIN B12on 03-24-2024 Cobalamin (Vitamin B12) [Mass/Vol] pg/mL Low 232 - 1245 pg/mL [facility] Comment on above: Result rechecked. CBC W Auto Differential pane l (Bld)on 03-23-2024 Basophils (Bld) [#/Vol] [facility] Basophils/100 WBC (Bld) 0.2 % [facility] Differential cell count method Nom (Bld) Auto [facility] Eosinophils (Bld) [#/Vol] 0.04 10*3/uL [facility] Eosinophils/100 WBC (Bld) 0.8 % [facility] Erythrocyte distribution width (RBC) [Ratio] 17.8 % High 11.5 - 15.0 % [facility] Hematocrit (Bld) [Volume fraction] 22.5 % Low 36.0 - 46.0 % [facility] Hemoglobin (Bld) [Mass/Vol] 7.6 g/dL Low 11.5 - 15.5 g/dL [facility] Immature granulocytes (Bld) [#/Vol] [facility] Immature granulocytes/100 WBC (Bld) 0.4 % [facility] Interpretation and review of laboratory results Abnormal [facility] Lymphocytes (Bld) [#/Vol] 0.73 10*3/uL Low [facility] Lymphocytes/100 WBC (Bld) 15.4 % [facility] MCH (RBC) [Entitic mass] 38.8 pg High 26.0 - 34.[address] [facility] MCHC (RBC) [Mass/Vol] 33.8 g/dL 30.5 - 36.0 g/dL [facility] MCV (RBC) [Entitic vol] 114.8 fL High 80.0 - 100.[address] [facility] Monocytes (Bld) [#/Vol] 0.31 10*3/uL [facility] Monocytes/100 WBC (Bld) 6.5 % [facility] Neutrophils (Bld) [#/Vol] 3.64 10*3/uL [facility] Neutrophils/100 WBC (Bld) 76.7 % [facility] Nucleated RBC (Bld) [#/Vol] NINF [facility] Nucleated RBC/100 WBC (Bld) [Ratio] 0.0 % /[address] [facility] Platelet mean volume (Bld) [Entitic vol] 9.0 fL 9.0 - 12.[address] [facility] Platelets (Bld) [#/Vol] 247 10*3/uL [facility] RBC (Bld) [#/Vol] 1.96 10*6/uL Low 3.90 - 5.2 0 m/uL [facility] WBC (Bld) [#/Vol] 4.75 10*3/uL [facility] Basophils (Bld) [#/Vol] 10*3/uL Normal <0.11 [facility] Comment on above: Order Comment: Speci men Type: BLOOD SPECIMENOrdering Facility: [facility] Address: [address] [place] [address] Performed By: #### 5 7021-8 ####[facility] LABCLIA [id number] [place] [address] Basophils/100 WBC (Bld) 0.2 % Normal [facility] Comment on above: Order Comment: Speci men Type: BLOOD SPECIMENOrdering Facility: [facility] Address: [address] [place] [address] Performed By: #### 5 7021-8 ####[facility] LABCLIA [id number] [place] [address] Differential cell count method Nom (Bld) Auto Normal [facility] Comment on above: Order Comment: Speci men Type: BLOOD SPECIMENOrdering Facility: [facility] Address: [address] [place] [address] Performed By: #### 5 7021-8 ####[facility] LABCLIA [id number] [place] [address] Eosinophils (Bld) [#/Vol] 0.04 10*3/uL Normal <0.46 [facility] Comment on above: Order Comment: Speci men Type: BLOOD SPECIMENOrdering Facility: [facility] Address: [address] [place] [address] Performed By: #### 5 7021-8 ####[facility] LABCLIA [id number] [place] [address] Eosinophils/100 WBC (Bld) 0.8 % Normal [facility] Comment on above: Order Comment: Speci men Type: BLOOD SPECIMENOrdering Facility: [facility] Address: [address] [place] [address] Performed By: #### 5 7021-8 ####[facility] LABCLIA [id number] [place] [address] Erythrocyte distribution width (RBC) [Ratio] 17.8 % High 11.5-15.0 [facility] Comment on above: Order Comment: Speci men Type: BLOOD SPECIMENOrdering Facility: [facility] Address: [address] [place] [address] Performed By: #### 5 7021-8 ####[facility] LABCLIA [id number] [place] [address] Hematocrit (Bld) [Volume fraction] 22.5 % Low 36.0-46.0 [facility] Comment on above: Order Comment: Speci men Type: BLOOD SPECIMENOrdering Facility: [facility] Address: [address] [place] [address] Performed By: #### 5 7021-8 ####[facility] LABCLIA [id number] [place] [address] Hemoglobin (Bld) [Mass/Vol] 7.6 g/dL Low 11.5-15.5 [facility] Comment on above: Order Comment: Speci men Type: BLOOD SPECIMENOrdering Facility: [facility] Address: [address] [place] [address] Performed By: #### 5 7021-8 ####[facility] LABCLIA [id number] [place] [address] Immature granulocytes (Bld) [#/Vol] 10*3/uL Normal <0.10 [facility] Comment on above: Order Comment: Speci men Type: BLOOD SPECIMENOrdering Facility: [facility] Address: [address] [place] [address] Performed By: #### 5 7021-8 ####[facility] LABCLIA [id number] [place] [address] Immature granulocytes/100 WBC (Bld) 0.4 % Normal [facility] Comment on above: Order Comment: Speci men Type: BLOOD SPECIMENOrdering Facility: [facility] Address: [address] [place] [address] Performed By: #### 5 7021-8 ####[facility] LABCLIA [id number] [place] [address] Lymphocytes (Bld) [#/Vol] 0.73 10*3/uL Low 1.00-4.00 [facility] Comment on above: Order Comment: Speci men Type: BLOOD SPECIMENOrdering Facility: [facility] Address: [address] [place] [address] Performed By: #### 5 7021-8 ####[facility] LABCLIA [id number] [place] [address] Lymphocytes/100 WBC (Bld) 15.4 % Normal [facility] Comment on above: Order Comment: Speci men Type: BLOOD SPECIMENOrdering Facility: [facility] Address: [address] [place] [address] Performed By: #### 5 7021-8 ####[facility] LABCLIA [id number] [place] [address] MCH (RBC) [Entitic mass] 38.8 pg High 26.0-34.0 [facility] Comment on above: Order Comment: Speci men Type: BLOOD SPECIMENOrdering Facility: [facility] Address: [address] [place] [address] Performed By: #### 5 7021-8 ####[facility] LABCLIA [id number] [place] [address] MCHC (RBC) [Mass/Vol] 33.8 g/dL Normal 30.5-36.0 [facility] Comment on above: Order Comment: Speci men Type: BLOOD SPECIMENOrdering Facility: [facility] Address: [address] [place] [address] Performed By: #### 5 7021-8 ####[facility] LABIA [id number] [place] [address] MCV (RBC) [Entitic vol] 114.8 fL High 80.0-100.0 [facility] Comment on above: Order Comment: Speci men Type: BLOOD SPECIMENOrdering Facility: [facility] Address: [address] [place] [address] Performed By: #### 5 7021-8 ####[facility] LABCLIA [id number] [place] [address] Monocytes (Bld) [#/Vol] 0.31 10*3/uL Normal <0.87 [facility] Comment on above: Order Comment: Speci men Type: BLOOD SPECIMENOrdering Facility: [facility] Address: [address] [place] [address] Performed By: #### 5 7021-8 ####[facility] LABIA [id number] [place] [address] Monocytes/100 WBC (Bld) 6.5 % Normal [facility] Comment on above: Order Comment: Speci men Type: BLOOD SPECIMENOrdering Facility: [facility] Address: [address] [place] [address] Performed By: #### 5 7021-8 ####[facility] LABCLIA [id number] [place] [address] Neutrophils (Bld) [#/Vol] 3.64 10*3/uL Normal 1.45-7.50 [facility] Comment on above: Order Comment: Speci men Type: BLOOD SPECIMENOrdering Facility: [facility] Address: [address] [place] [address] Performed By: #### 5 7021-8 ####[facility] LABCLIA [id number] [place] [address] Neutrophils/100 WBC (Bld) 76.7 % Normal [facility] Comment on above: Order Comment: Speci men Type: BLOOD SPECIMENOrdering Facility: [facility] Address: [address] [place] [address] Performed By: #### 5 7021-8 ####[facility] LABCLIA [id number] [place] [address] Nucleated RBC (Bld) [#/Vol] 10*3/uL Normal <0.01 [facility] Comment on above: Order Comment: Speci men Type: BLOOD SPECIMENOrdering Facility: [facility] Address: [address] [place] [address] Performed By: #### 5 7021-8 ####[facility] LABCLIA [id number] [place] [address] Nucleated RBC/100 WBC (Bld) [Ratio] 0.0 /100 WBC Normal [facility] Comment on above: Order Comment: Speci men Type: BLOOD SPECIMENOrdering Facility: [facility] Address: [address] [place] [address] Performed By: #### 5 7021-8 ####[facility] LABCLIA [id number] [place] [address] Platelet mean volume (Bld) [Entitic vol] 9.0 fL Normal 9.0-12.7 [facility] Comment on above: Order Comment: Speci men Type: BLOOD SPECIMENOrdering Facility: [facility] Address: [address] [place] [address] Performed By: #### 5 7021-8 ####[facility] LABCLIA [id number] [place] [address] Platelets (Bld) [#/Vol] 247 10*3/uL Normal 150-400 [facility] Comment on above: Order Comment: Speci men Type: BLOOD SPECIMENOrdering Facility: [facility] Address: [address] [place] [address] Performed By: #### 5 7021-8 ####[facility] LABIA [id number] [place] [address] RBC (Bld) [#/Vol] 1.96 10*6/uL Low 3.90-5.20 [facility] Comment on above: Order Comment: Speci men Type: BLOOD SPECIMENOrdering Facility: [facility] Address: [address] [place] [address] Performed By: #### 5 7021-8 ####[facility] LABIA [id number] [place] [address] WBC (Bld) [#/Vol] 4.75 10*3/uL Normal 3.70-11.00 [facility] Comment on above: Order Comment: Speci men Type: BLOOD SPECIMENOrdering Facility: [facility] Address: [address] [place] [address] Performed By: #### 5 7021-8 ####[facility] LABIA [id number] [place] [address] CEA SerPl-ncon 03-23-2024 Carcinoembryonic Ag [Mass/Vol] 2.2 ng/mL Normal <=2.9 [facility] Comment on above: Order Comment: Speci men Type: BLOOD SPECIMENOrdering Facility: [facility] Address: [address] [place] [address] Result Comment: Carc inoembryonic antigen test is used as an aid in monitoring response to treatment or recurrence in patients with established colorectal, breast, lung, prostatic, pancreatic, and ovarian carcinomas. Clinical correlation is required.The Carcinoembryonic antigen test was performed using the Sophie [place] Unicel DXI paramagnetic particle chemiluminescent immunoassay method. Results obtained with different assay methods or kits cannot be used interchangeably. Performed By: #### 2 4107-3, 2039-02 ####[facility] LABCLIA [id number] [address] OF [facility] CIRCULATING TUMOR DNA GENOMI C ANALYSIS FOR SOLID TUMORSRESTRICTED TO ONCOLOGYon 03-23-2024 RESULTS View results in Scan karen Documents link when available. Normal [facility] Comment on above: Order Comment: Speci men Type: BLOOD SPECIMENOrdering Facility: [facility] Address: [address] [place] [address] CNNURSEon 03-23-2024 CNNURSE Normal [facility] CNOVSPon 03-23-2024 CNOVSP Normal [facility] CNPNon 03-23-2024 CNPN Normal [facility] Cancer Ag19-9 SerPl-aCncon 0 03-23-2024 Cancer Ag 19-9 Qn 806.0 [arb'U]/mL High <36.0 [facility] on above: Order Comment: Speci men Type: BLOOD SPECIMENOrdering Facility: [facility] Address: [address] [place] [address] Result Comment: Canc er antigen 19-9 test is used as an aid in monitoring response to treatment or recurrence in patients with established pancreatic, hepatobiliary, or gastrointestinal malignancies. Clinical correlation is required.The CA 19-9 Antigen test was performed using the Sophie [place] Unicel DXI paramagnetic particle chemiluminescent immunoassay method. Results obtained with different assay methods or kits cannot be used interchangeably. Performed By: #### 2 4108-3, 2039-02 ####[facility] LABCLIA [id number] [place] [id number] [facility] Comprehensive metabolic 2000 panelon 03-23-2024 Albumin [Mass/Vol] 3.8 g/dL Low 3.9-4.9 [facility] Comment on above: Order Comment: Speci men Type: BLOOD SPECIMENOrdering Facility: [facility] Address: [address] [place] [address] Performed By: #### 2 4323-8 ####[facility] LABCLIA [id number] [place] [address] ALP [Catalytic activity/Vol] 110 U/L Normal 34-123 [facility] Comment on above: Order Comment: Speci men Type: BLOOD SPECIMENOrdering Facility: [facility] Address: [address] [place] [address] Performed By: #### 2 4323-8 ####[facility] LABCLIA [id number] [place] [address] ALT [Catalytic activity/Vol] 7 U/L Normal 7-38 [facility] Comment on above: Order Comment: Speci men Type: BLOOD SPECIMENOrdering Facility: [facility] Address: [address] [place] [address] Performed By: #### 2 4323-8 ####[facility] LABCLIA [id number] [place] [address] Anion gap [Moles/Vol] 9 mmol/L Normal 8-15 [facility] Comment on above: Order Comment: Speci men Type: BLOOD SPECIMENOrdering Facility: [facility] Address: [address] [place] [address] Performed By: #### 2 4323-8 ####[facility] LABCLIA [id number] [place] [address] AST [Catalytic activity/Vol] 18 U/L Normal 13-35 [facility] Comment on above: Order Comment: Speci men Type: BLOOD SPECIMENOrdering Facility: [facility] Address: [address] [place] [address] Performed By: #### 2 4323-8 ####[facility] LABCLIA [id number] [place] [address] Bilirubin [Mass/Vol] 0.4 mg/dL Normal 0.2-1.3 [facility] Comment on above: Order Comment: Speci men Type: BLOOD SPECIMENOrdering Facility: [facility] Address: [address] [place] [address] Performed By: #### 2 4323-8 ####[facility] LABCLIA [id number] [place] [address] Calcium [Mass/Vol] 10.8 mg/dL High 8.5-10.2 [facility] Comment on above: Order Comment: Speci men Type: BLOOD SPECIMENOrdering Facility: [facility] Address: [address] [place] [address] Performed By: #### 2 4323-8 ####[facility] LABCLIA [id number] [place] [address] Chloride [Moles/Vol] 104 mmol/L Normal 98-107 [facility] Comment on above: Order Comment: Speci men Type: BLOOD SPECIMENOrdering Facility: [facility] Address: [address] [place] [address] Performed By: #### 2 4323-8 ####[facility] LABCLIA [id number] [place] [address] CO2 [Moles/Vol] 24 mmol/L Normal 22-30 [facility] Comment on above: Order Comment: Speci men Type: BLOOD SPECIMENOrdering Facility: [facility] Address: [address] [place] [address] Performed By: #### 2 4323-8 ####[facility] LABCLIA [id number] [place] [address] Creatinine [Mass/Vol] 1.25 mg/dL High 0.58-0.96 [facility] Comment on above: Order Comment: Speci men Type: BLOOD SPECIMENOrdering Facility: [facility] Address: [address] [place] [address] Performed By: #### 2 4323-8 ####[facility] LABCLIA [id number] [place] [address] Creatinine and Glomerular filtration rate.predicted panel (S/P/Bld) 49 mL/min/1.73m??? Low >=60 [facility] Comment on above: Order Comment: Speci men Type: BLOOD SPECIMENOrdering Facility: [facility] Address: [address] [place] [address] Result Comment: Carmen mated Glomerular Filtration Rate [...] 2 4323-8 ####[facility] LABCLIA [id number] [place] [address] Glucose [Mass/Vol] 227 mg/dL High 74-99 [facility] Comment on above: Order Comment: Paco fenton Type: BLOOD SPECIMENOrdering Facility: [facility] Address: [address] [place] [address] Result Comment: The [place] Diabetes Association (ADA) provides guidance for cutoff values for fasting glucose and random glucose. The ADA defines fasting as no caloric intake for at least 8 hours. Fasting plasma glucose results between 100 to 125 mg/dL indicate increased risk for diabetes (prediabetes).Fasting plasma glucose results greater than or equal to 126 mg/dL meet the criteria for diagnosis of diabetes. In the absence of unequivocal hyperglycemia, results should be confirmed by repeat testing. In a patient with classic symptoms of hyperglycemia or hyperglycemic crisis, random plasma glucose results greater than or equal to 200 mg/dL meet the criteria for diagnosis of diabetes.Reference: Standards of Medical Care in Diabetes 2016, [place] Diabetes Association. Diabetes Care. 2016.39(Suppl 1). Performed By: #### 2 4323-8 ####[facility] LABCLIA [id number] [place] [address] Potassium [Moles/Vol] 3.7 mmol/L Normal 3.7-5.1 [facility] Comment on above: Order Comment: Speci men Type: BLOOD SPECIMENOrdering Facility: [facility] Address: [address] [place] [address] Performed By: #### 2 4323-8 ####[facility] LABCLIA [id number] [place] [address] Protein [Mass/Vol] 6.9 g/dL Normal 6.3-8.0 [facility] Comment on above: Order Comment: Speci men Type: BLOOD SPECIMENOrdering Facility: [facility] Address: [address] [place] [address] Performed By: #### 2 4323-8 ####[facility] LABCLIA [id number] [place] [address] Sodium [Moles/Vol] 137 mmol/L Normal 136-144 [facility] Comment on above: Order Comment: Speci men Type: BLOOD SPECIMENOrdering Facility: [facility] Address: [address] [place] [address] Performed By: #### 2 4323-8 ####[facility] LABCLIA [id number] [place] [address] Urea nitrogen [Mass/Vol] 24 mg/dL High 7-21 [facility] Comment on above: Order Comment: Speci men Type: BLOOD SPECIMENOrdering Facility: [facility] Address: [address] [place] [address] Performed By: #### 2 4323-8 ####[facility] LABIA [id number] [place] [address] Ferritin SerPl-ncon 2023 Ferritin [Mass/Vol] 19.5 ng/mL Normal 14.7-205.1 [facility] Comment on above: Order Comment: Speci men Type: BLOOD SPECIMENOrdering Facility: [facility] Address: [address] [place] [address] Performed By: #### T 4FDINORAH, 3016-3, 75244-7, 2275-4 ####[facility] LABCLIA [id number] [address] [address] [place] Iron and Iron binding capaci ty panelon 03-23-2024 Iron [Mass/Vol] 43 ug/dL Normal 41-186 [facility] Comment on above: Order Comment: Speci men Type: BLOOD SPECIMENOrdering Facility: [facility] Address: [address] [place] [address] Performed By: #### Herve VASQUES, 3016-3, 03621-9, 2275- ####[facility] LABCLIA [id number] [place] [address] [place] Iron binding capacity [Mass/Vol] 292 ug/dL Normal 232-386 [facility] Comment on above: Order Comment: Speci men Type: BLOOD SPECIMENOrdering Facility: [facility] Address: [address] [place] [address] Performed By: #### Herve 4FDINORAH, 3016-3, 04201-5, 2275- ####[facility] LABIA [id number] [place] [address] [place] Iron/TIBC [Molar ratio] 14.7 % Low 15.0-57.0 [facility] Comment on above: Order Comment: Speci men Type: BLOOD SPECIMENOrdering Facility: [facility] Address: [address] [place] [address] Performed By: #### Herve 4FDINORAH, 3016-3, 08736-2, 2275-4 ####[facility] LABCLIA [id number] [place] [id number] [place] T4/FTI/T4Uon 03-23-2024 FTI 7.7 ug/dL Normal 5.3-10.8 [facility] Comment on above: Order Comment: Speci men Type: BLOOD SPECIMENOrdering Facility: [facility] Address: [address] [place] [address] Performed By: #### Herve 4FDINORAH, 3016-3, 47677-3, 2275-12 ####[facility] LABCLIA [id number] [place] [id number] [place] T4 [Mass/Vol] 8.2 ug/dL Normal 5.5-10.2 [facility] Comment on above: Order Comment: Speci men Type: BLOOD SPECIMENOrdering Facility: [facility] Address: [address] [place] [address] Performed By: #### Herve VASQUES, 301-3, 56926-9, 2275-12 ####[facility] LABCLIA [id number] [place] [address] [place] T4 uptake [Mass/Vol] 1.06 Normal 0.91-1.19 [facility] Comment on above: Order Comment: Speci men Type: BLOOD SPECIMENOrdering Facility: [facility] Address: [address] [place] [address] Performed By: #### Herve 4FDINORAH, 6-3, 36959-0, 2275-12 ####[facility] LABCLIA [id number] [place] [id number] [place] TSH SerPl-aCncon 03-23-2024 TSH Qn 9.710 m[IU]/L High 0.270-4.200 [facility] Comment on above: Order Comment: Speci men Type: BLOOD SPECIMENOrdering Facility: [facility] Address: [address] [place] [address] Performed By: #### Herve 4FDINORAH, 6-3, 81430-9, 2275-12 ####[facility] LABCLIA [id number] [place] [id number] [place] Vit B12 SerPl-mCncon 024 Cobalamin (Vitamin B12) [Mass/Vol] pg/mL Low 232-1245 [facility] Comment on above: Order Comment: Speci men Type: BLOOD SPECIMENOrdering Facility: [facility] Address: [address] [facility] [place] [address] Result Comment: Resu lt rechecked. Performed By: #### 2 132-9 ####[facility] LABCLIA [id number] [facility]ITALRegla ROSEDALEDESK [address] [place] Surgical Pathologyon 024 Surgical Pathology Normal [facility] Comment on above: Result Comment: [facility] [address] [place] [address] Surgical Pathology Consultation ADDENDUM [place] Patient Name:KAYA SCHILLING:1965 (Age: 59)Gender:FTaken:03/02/2024eported:03/08/2024hysician(s):Cong Montano D.O. ([phone])Copy To: Rec. #:[id number]: #[id number] Final Pathologic Diagnosis 1. Cardia mass biopsy: Invasive ADENOCARCINOMA, intestinal type, low-grade. 2. Ascending colon polyp; polypectomy: Nondiagnostic sample (only food particles noted). Report Electronically Signed Out dorothea/03/08/2024Rigoberto Fischer MD Addendum ([facility]) Date Reported: 03/15/2024 Gastric HER2 Biomarker Reporting Template HER2 (by immunohistochemistry) Equivocal (score 2+) -see comment. Comment: The block has been sent out for HER2/apollo studies by FISH analysis; addendum to follow. Methods - Block: 1A Fixative: Formalin (Formalin-fixed, paraffin embedded tissue) HER2: FDA approved (test/vendor): Pathway/ Mckinney, Primary Antibody: 4B5 Detection System: Mckinney ultraView [place] DAB Detection Kit (indirect biotin-free detection) Scoring [...] Gastroesophageal Adenocarcinoma Guideline From the College of [place] Pathologists, [place] Society for Clinical Pathology, and [place] Society of Clinical Oncology. Arch Pathol Lab Med. 2016;140:4798-5457; doi:10.5858/arpa.8791-1383-XU; 10.5858/arpa.8893-2815-VM.s1) 2. Guero et al. HER2 diagnostics in gastric cancer-guideline validation and development of standardized immunohistochemical testing. [place] Arch. 2010; 457:299-307. 3. Benji VASQUEZ, Peter Jennings E, Tim Hart, et al. Trastuzumab in combination with chemotherapy versus chemotherapy alone for treatment of HER2-positive gastric or gastro-oesophageal junction cancer (ToGA): A phase 3, open-label, randomized controlled trial. Lancet. 2010;376(1277):058-607. Electronically Signed Out Rigoberto Fischer MD Addendum ([facility]) Date Reported: 03/23/2024 Results of testing for HER2, Gastroesophageal FISH, Tissue are received on 03/23/2024 from [facility], [address] [place] [address] and are as follows: Result Summary: Negative [...] chromosome 17 centromere (D17Z1) control probe ([employer] Two technologists score signals in 60 total nuclei from invasive or metastatic tumor after confirmation of probe performance by concurrent controls. Scoring method: Manual. Please see the complete report from [facility] in the patient???s electronic medical record. Electronically Signed Out Rigoberto Fischer, (more content not included)... COMPLETE BLOOD COUNTon 01-20 Erythrocyte distribution width (RBC) [Ratio] 22.6 % High 11.5-15.0 [facility] Comment on above: Performed By: #### C BC, CMP, HA1C #### [facility] ([id number]) [address] [place] [address] Hematocrit (Bld) [Volume fraction] 27.1 % Low 35-47 [facility] Comment on above: Performed By: #### C VALERIE HA, HA1C #### [facility] ([id number]) [address] [place] [address] Hemoglobin (Bld) [Mass/Vol] 9.1 g/dL Low 11.7-15.5 [facility] Comment on above: Performed By: #### C DILCIA CMP, HA1C #### [facility] ([id number]) [address], [facility] [address] [place] [address] MCH (RBC) [Entitic mass] 36.9 pg High 27-34 [facility] Comment on above: Performed By: #### Payton HA CMP, HA1C #### [facility] ([id number]) [address], [address] [place] [address] MCHC (RBC) [Mass/Vol] 33.7 g/dL Normal 32-36 [facility] Comment on above: Performed By: #### C DILCIA CMP, HA1C #### [facility] ([id number]) [address], [address] [place] [address] MCV (RBC) [Entitic vol] 109 fL High 80-100 [facility] Comment on above: Performed By: #### Payton HA CMP, HA1C #### [facility] ([id number]) [address] [place] [address] Platelet mean volume (Bld) [Entitic vol] 6.8 fL Low 7-12 [facility] Comment on above: Performed By: #### Payton HA CMP, HA1C #### [facility] ([id number]) [address], [address] [place] [address] Platelets (Bld) [#/Vol] 397 10*3/uL Normal 150-450 [facility] Comment on above: Performed By: #### C BC, CMP, HA1C #### [facility] ([id number]) [address], [address] [place] [address] RBC COUNT 2.47 X10E12/L Low 3.80-5.20 [facility] Comment on above: Performed By: #### C BC, CMP, HA1C #### [facility] ([id number]) [address], [address] [place] [address] WBC (Bld) [#/Vol] 4.8 10*3/uL Normal 4.0-11.0 [facility] Comment on above: Performed By: #### C BC, CMP, HA1C #### [facility] ([id number]) [address], [address] [place] [address] COMPREHENSIVE METABOLIC PANE Jj 01-21-2024 Albumin [Mass/Vol] 3.9 g/dL Normal 3.2-5.3 [facility] Comment on above: Performed By: #### C BC, CMP, HA1C #### [facility] ([id number]) [address], [address] [place] [address] ALP [Catalytic activity/Vol] 89 U/L Normal 39-130 [facility] Comment on above: Performed By: #### C BC, CMP, HA1C #### [facility] ([id number]) [address] [place] [address] ALT [Catalytic activity/Vol] 8 U/L Normal 0-31 [facility] Comment on above: Performed By: #### C BC, CMP, HA1C #### [facility] ([id number]) [address], [address] [place] [address] Anion gap [Moles/Vol] 10 mmol/L Normal 5-15 [facility] Comment on above: Performed By: #### C BC, CMP, HA1C #### [facility] ([id number]) [address], [address] [place] [address] AST [Catalytic activity/Vol] 13 U/L Normal 0-41 [facility] Comment on above: Performed By: #### C BC, CMP, HA1C #### [facility] ([id number]) [address], [address] [place] [address] Bilirubin [Mass/Vol] 0.9 mg/dL Normal 0.3-1.2 [facility] Comment on above: Performed By: #### C BC, CMP, HA1C #### [facility] ([id number]) [address], [address] [place] [address] Calcium [Mass/Vol] 10.7 mg/dL High 8.5-10.5 [facility] Comment on above: Performed By: #### C BC, CMP, HA1C #### [facility] ([id number]) [address], [address] [place] [address] Chloride [Moles/Vol] 104 mmol/L Normal 98-109 [facility] Comment on above: Performed By: #### C BC, CMP, HA1C #### [facility] ([id number]) [address], [address] [place] [address] CO2 [Moles/Vol] 25 mmol/L Normal 22-32 [facility] Comment on above: Performed By: #### C BC, CMP, HA1C #### [facility] ([id number]) [address] [place] [address] Creatinine [Mass/Vol] 1.03 mg/dL High 0.40-1.00 [facility] Comment on above: Result Comment: METH OD TRACEABLE TO IDMS STANDARD Performed By: #### C BC, CMP, HA1C #### [facility] ([id number]) [address] [place] [address] GFR/1.73 sq M.predicted among non-blacks MDRD (S/P/Bld) [Vol rate/Area] 62 mL/min/{1.73_m2} Normal >59 [facility] Comment on above: Result Comment: Reported eGFR is based on the CKD-EPI 2020 equation that does not use a race coefficient. Performed By: #### C BC CMP, HA1C #### [facility] ([id number]) [address] [address] Glucose [Mass/Vol] 175 mg/dL High 65-99 [facility] Comment on above: Performed By: #### Payton HA CMP, HA1C #### [facility] ([id number]) [address] [address] Potassium [Moles/Vol] 3.8 mmol/L Normal 3.5-5.0 [facility] Comment on above: Performed By: #### Payton HA, CMP, HA1C #### [facility] ([id number]) [address] [address] Protein [Mass/Vol] 7.0 g/dL Normal 6.0-8.0 [facility] Comment on above: Performed By: #### Payton HA CMP, HA1C #### [facility] ([id number]) [address] [address] Sodium [Moles/Vol] 139 mmol/L Normal 134-146 [facility] Comment on above: Performed By: #### C BC, CMP, HA1C #### [facility] ([id number]) [address] [address] Urea nitrogen [Mass/Vol] 20 mg/dL Normal 5-23 [facility] Comment on above: Performed By: #### C BC, CMP, HA1C #### [facility] ([id number]) [address] [address] [place] [address] HGB A1C (GLYCO-HGB)on 2023 Glucose [Mass/Vol] 128 mg/dL Normal [facility] Comment on above: Performed By: #### C VALERIE HA, HA1C #### [facility] ([id number]) [address] [address] [place] [address] HbA1c (Bld) [Mass fraction] 6.1 % High 4.4-5.6 [facility] Comment on above: Result Comment: NOTE ADA Guidelines Result HgbA1c Normal : less than 5.7 % Prediabetes : 5.7 % to 6.4 % Diabetes : > 6.4 % Use with caution in patients with abnormal hemoglobin variants as the half-life of red blood cells and in vivo glycation rates are affected. Performed By: #### C DILCIA, VALERIE, HA1C #### [facility] ([id number]) [address] [address] [place] [address] Parathyrin.intact [Mass/Vol] on 01-21-2024 PTH INTACT 130 pg/mL High 12- [facility] Comment on above: Performed By: #### 2 731-8 #### [facility] ([id number]) [address] [address] COMPLETE BLOOD COUNTon 08-23 Erythrocyte distribution width (RBC) [Ratio] 17.8 % High 11.5-15.0 [facility] Comment on above: Performed By: #### C DILCIA, CMP #### [facility] ([id number]) [address] [address] Hematocrit (Bld) [Volume fraction] 32.9 % Low 35-47 [facility] Comment on above: Performed By: #### Payton HA, CMP #### [facility] ([id number]) [address] [place] [address] Hemoglobin (Bld) [Mass/Vol] 11.0 g/dL Low 11.7-15.5 [facility] Comment on above: Performed By: #### C BC, CMP #### [facility] ([id number]) [address] [place] [address] MCH (RBC) [Entitic mass] 31.5 pg Normal 27-34 [facility] Comment on above: Performed By: #### C BC, CMP #### [facility] ([id number]) [address] [place] [address] MCHC (RBC) [Mass/Vol] 33.5 g/dL Normal 32-36 [facility] Comment on above: Performed By: #### C BC, CMP #### [facility] ([id number]) [address] [place] [address] MCV (RBC) [Entitic vol] 94 fL Normal 80-100 [facility] Comment on above: Performed By: #### C DILCIA, CMP #### [facility] ([id number]) [address] [place] [address] Platelet mean volume (Bld) [Entitic vol] 6.8 fL Low 7-12 [facility] Comment on above: Performed By: #### C BC, CMP #### [facility] ([id number]) [address] [address] [place] [address] Platelets (Bld) [#/Vol] 432 10*3/uL Normal 150-450 [facility] Comment on above: Performed By: #### C BC, CMP #### [facility] ([id number]) [address] [place] [address] RBC COUNT 3.50 X10E12/L Low 3.80-5.20 [facility] Comment on above: Performed By: #### C BC, CMP #### [facility] ([id number]) [address] [place] [address] WBC (Bld) [#/Vol] 7.1 10*3/uL Normal 4.0-11.0 [facility] Comment on above: Performed By: #### C BC, CMP #### [facility] ([id number]) [address], [address] [place] [address] COMPREHENSIVE METABOLIC PANE [facility] 08-23-2023 Albumin [Mass/Vol] 4.2 g/dL Normal 3.2-5.3 [facility] Comment on above: Performed By: #### C DILCIA, CMP #### [facility] ([id number]) [address] [place] [address] ALP [Catalytic activity/Vol] 115 U/L Normal 39-130 [facility] Comment on above: Performed By: #### C BC, CMP #### [facility] ([id number]) [address] [place] [address] ALT [Catalytic activity/Vol] 12 U/L Normal 0-31 [facility] Comment on above: Performed By: #### C DILCIA, CMP #### [facility] ([id number]) [address] [place] [address] Anion gap [Moles/Vol] 8 mmol/L Normal 5-15 [facility] Comment on above: Performed By: #### C BC, CMP #### [facility] ([id number]) [address] [place] [address] AST [Catalytic activity/Vol] 13 U/L Normal 0-41 [facility] Comment on above: Performed By: #### C BC, CMP #### [facility] ([id number]) [address] [place] [address] Bilirubin [Mass/Vol] 0.3 mg/dL Normal 0.3-1.2 [facility] Comment on above: Performed By: #### C DILCIA, CMP #### [facility] ([id number]) [address] [place] [address] Calcium [Mass/Vol] 12.0 mg/dL High 8.5-10.5 [facility] Comment on above: Performed By: #### C DILCIA, CMP #### [facility] ([id number]) [address] [place] [address] Chloride [Moles/Vol] 102 mmol/L Normal 98-109 [facility] Comment on above: Performed By: #### C DILCIA, CMP #### [facility] ([id number]) [address] [place] [address] CO2 [Moles/Vol] 26 mmol/L Normal 22-32 [facility] Comment on above: Performed By: #### C DILCIA, CMP #### [facility] ([id number]) [address] [place] [address] Creatinine [Mass/Vol] 0.80 mg/dL Normal 0.40-1.00 [facility] Comment on above: Result Comment: METH OD TRACEABLE TO IDMS STANDARD Performed By: #### C DILCIA, CMP #### [facility] ([id number]) [address] [place] [address] GFR/1.73 sq M.predicted among non-blacks MDRD (S/P/Bld) [Vol rate/Area] 85 mL/min/{1.73_m2} Normal >59 [facility] Comment on above: Result Comment: Reported eGFR is based on the CKD-EPI 2020 equation that does not use a race coefficient. Performed By: #### C DILCIA, CMP #### [facility] ([id number]) [address] [place] [address] Glucose [Mass/Vol] 152 mg/dL High 65-99 [facility] Comment on above: Performed By: #### C BC, CMP #### [facility] ([id number]) [address] [place] [address] Potassium [Moles/Vol] 4.5 mmol/L Normal 3.5-5.0 [facility] Comment on above: Performed By: #### C BC, CMP #### [facility] ([id number]) [address] [place] [address] Protein [Mass/Vol] 7.2 g/dL Normal 6.0-8.0 [facility] Comment on above: Performed By: #### C BC, CMP #### [facility] ([id number]) [address] [place] [address] Sodium [Moles/Vol] 136 mmol/L Normal 134-146 [facility] Comment on above: Performed By: #### C DILCIA, CMP #### [facility] ([id number]) [address] [place] [address] Urea nitrogen [Mass/Vol] 15 mg/dL Normal 5-23 [facility] Comment on above: Performed By: #### C DILCIA, CMP #### [facility] ([id number]) [address] [place] [address] HGB A1C (GLYCO-HGB)on 2022 Glucose [Mass/Vol] 143 mg/dL Normal [facility] Comment on above: Performed By: #### C DILCIA, CMP #### [facility] ([id number]) [address] [place] [address] HbA1c (Bld) [Mass fraction] 6.6 % High 4.4-5.6 [facility] Comment on above: Result Comment: NOTE ADA Guidelines Result HgbA1c Normal : less than 5.7 % Prediabetes : 5.7 % to 6.4 % Diabetes : > 6.4 % Use with caution in patients with abnormal hemoglobin variants as the half-life of red blood cells and in vivo glycation rates are affected. Performed By: #### C BC, CMP #### [facility] ([id number]) [address] [place] [address], [address] [address] MICROALBUMIN - ALBUMIN:CREAT ININE URINE RATIOon 08-23-2023 ALB/CREAT RATIO 76.0 mg/g creat High 0.0-30.0 [facility] Comment on above: Performed By: #### M ALBU #### [facility] ([id number]) [address] [place] [address], [address] [address] Albumin DL <= 20 mg/L (U) [Mass/Vol] 3.0 mg/dL High 0.0-1.9 [facility] Comment on above: Performed By: #### M ALBU #### [facility] ([id number]) [address] [place] [address] URINE CREAT 39.48 mg/dL Normal [facility] Comment on above: Performed By: #### M ALBU #### [facility] ([id number]) [address] [place] [address], [address] [address] LITHIUMon 12-22-2022 [place] (Eskalith(R)), Serum 0.8 mmol/L Normal 0.5-1.2 [facility] Comment on above: Result Comment: A co ncentration of 0.5-0.8 mmol/L is advised for long-term use; concentrations of up to 1.2 mmol/L may be necessary during acute treatment. Detection Limit = 0.1 <0.1 indicates None Detected Performed By: #### O BSCRN #### [facility] [address] [place] [address] Dr. Rosangela Smyth CREATININEon 12-21-2022 Creatinine [Mass/Vol] 0.93 mg/dL Normal 0.55-1.02 [facility] Comment on above: Performed By: #### L IPID, CMP #### [facility] [address] [address] [address] Rosangela Smyth EGFR-AF SOMALI >60 Normal >=60 [facility] Comment on above: Performed By: #### L IPID, CMP #### [facility] [address] [address] [address] Rosangela Smyth EGFR-NON AF SOMALI >60 Normal >=60 [facility] Comment on above: Performed By: #### L IPID, CMP #### [facility] [address] [place] [address] Dr. Rosangela Smyth GLUCOSE BLOODon 12-21-2022 Glucose [Mass/Vol] 135 mg/dL Critically high 74-106 [facility] Comment on above: Performed By: #### L IPID, CMP #### [facility] [address] [place] [address] Dr. Rosangela Smyth LIPID PROFILEon 12-21-2022 CHOL-HDL RATIO NORM SEE BELOW Normal [facility] Comment on above: Result Comment: 3.3 - 4.4 LOW RISK 4.4 - 7.1 AVERAGE RISK 7.1 - 11.0 MODERATE RISK >11.0 HIGH RISK Performed By: #### L IPID, CMP #### [facility] [address] [place] [address] Dr. Rosangela Smyth Cholesterol [Mass/Vol] 194 mg/dL Normal <=200 [facility] Comment on above: Performed By: #### L IPID, CMP #### [facility] [address] [place] [address] Dr. Rosangela Smyth Cholesterol in HDL [Mass/Vol] 68 mg/dL Critically high 40-60 [facility] Comment on above: Performed By: #### L IPID, CMP #### [facility] [address] [place] [address] Dr. Rosangela Smyth Cholesterol in LDL [Mass/Vol] 106.8 mg/dL Normal [facility] Comment on above: Performed By: #### L IPID, CMP #### [facility] [address] [address] [address] Rosangela Smyth Cholesterol.total/C holesterol in HDL [Mass ratio] 2.9 {ratio} Normal [facility] Comment on above: Performed By: #### L IPID, CMP #### [facility] [address] [address] [address] Rosangela Smyth HDL NORMAL > or = 60 mg/dl - LO W CARDIOVASCULAR RISK <40 mg/dl - HIGH CARDIOVASCULAR RISK Normal [facility] Comment on above: Performed By: #### L IPID, CMP #### [facility] [address] [address] [address] Rosangela Smyth LDL CALC NORMAL SEE BELOW Normal [facility] Comment on above: Result Comment: <100 mg/dl OPTIMAL 100 - 129 mg/dl NEAR OR ABOVE OPTIMAL 130 - 159 mg/dl BORDERLINE HIGH 160 - 189 mg/dl HIGH >190 mg/dl VERY HIGH Performed By: #### L IPID, CMP #### [facility] [address] [place] [address] Dr. Rosangela Smyth Triglyceride [Mass/Vol] 96 mg/dL Normal <=150 [facility] Comment on above: Performed By: #### L IPID, CMP #### [facility] [address] [place] [address] Dr. Rosangela Smyth VLDL CALC 19.2 mg/dL Normal [facility] Comment on above: Performed By: #### L IPID, CMP #### [facility] [address] [address] [address] Rosangela Smyth TSHon 12-21-2022 TSH 2.649 uIU/mL Normal 0.358-3.740 [facility] Comment on above: Performed By: #### L IPID, CMP #### [facility] [address] [place] [address] Dr. Rosangela Smyth CBC AUTO DIFFon 09-25-2022 BASO # 0.0 103/ul Normal 0.0-0.1 [facility] Comment on above: Performed By: #### C BC #### [facility] [address] [address] [address] Rosangela Smyth Basophils/100 WBC (Bld) 0.0 % Critically low 0.2-2.0 [facility] Comment on above: Performed By: #### C BC #### [facility] [address] [address] [address] Rosanegla Smyth EO # 0.0 103/ul Normal 0.0-0.7 [facility] Comment on above: Performed By: #### C BC #### [facility] [address] [place] [address] Dr. Rosangela Smyth Eosinophils/100 WBC (Bld) 0.0 % Critically low 0.9-7.0 [facility] Comment on above: Performed By: #### C BC #### [facility] [address] [place] [address] Dr. Rosangela Smyth Erythrocyte distribution width (RBC) [Ratio] 15.9 % Critically high 11.0-15.0 [facility] Comment on above: Performed By: #### C BC #### [facility] [address] [place] [address] Dr. Rosangela Smyth Hematocrit (Bld) [Volume fraction] 25.7 % Critically low 36.0-48.0 [facility] Comment on above: Performed By: #### C BC #### [facility] [address] [place] [address] Dr. Rosangela Smyth Hemoglobin (Bld) [Mass/Vol] 8.3 g/dL Critically low 12.0-16.0 [facility] Comment on above: Performed By: #### C BC #### [facility] [address] [place] [address] Dr. Rosangela Smyth IG # 0.03 10e3/ul Normal 0.00-0.03 [facility] Comment on above: Performed By: #### C BC #### [facility] [address] [place] [address] Dr. Rosangela Smyth IG % 0.6 % Critically high 0.0-0.5 [facility] Comment on above: Performed By: #### C BC #### [facility] [address] [place] [address] Dr. Rosangela Smyth LYMPH # 0.7 103/ul Critically low 1.2-3.8 [facility] Comment on above: Performed By: #### C BC #### [facility] [address] [place] [address] Dr. Rosangela Smyth Lymphocytes/100 WBC (Bld) 13.8 % Critically low 20.5-60.0 [facility] Comment on above: Performed By: #### C BC #### [facility] [address] [place] [address] Dr. Rosangela Smyth MANUAL DIFF REQ NO Normal [facility] Comment on above: Performed By: #### C BC #### [facility] [address] [place] [address] Dr. Rosangela Smyth MCH (RBC) [Entitic mass] 31.1 pg Normal 26.7-34.0 [facility] Comment on above: Performed By: #### C BC #### [facility] [address] [place] [address] Dr. Rosagnela Smyth MCHC (RBC) [Mass/Vol] 32.3 g/dL Normal 29.9-35.2 [facility] Comment on above: Performed By: #### C BC #### [facility] [address] [place] [address] Dr. Rosangela Smyth MCV (RBC) [Entitic vol] 96.3 fL Normal 81.0-99.0 [facility] Comment on above: Performed By: #### C BC #### [facility] [address] [place] [address] Dr. Rosangela Smyth MONO # 0.3 103/ul Normal 0.3-0.8 [facility] Comment on above: Performed By: #### C BC #### [facility] [address] [place] [address] Dr. Rosangela Smyth Monocytes/100 WBC (Bld) 4.9 % Normal 1.7-12.0 [facility] Comment on above: Performed By: #### C BC #### [facility] [address] [address] [address] Rosangela Smyth NEUT # 4.3 103/ul Normal 1.4-6.5 [facility] Comment on above: Performed By: #### C BC #### [facility] [address] [address] [address] Rosangela Smyth Neutrophils/100 WBC (Bld) 80.7 % Critically high 43.0-75.0 [facility] Comment on above: Performed By: #### C BC #### [facility] [address] [place] [address] Dr. Rosangela Smyth Platelet mean volume (Bld) [Entitic vol] 9.1 fL Critically low 9.5-13.5 [facility] Comment on above: Performed By: #### C BC #### [facility] [address] [place] [address] Dr. Rosangela Smyth PLT 234 103/ul Normal 150-450 [facility] Comment on above: Performed By: #### C BC #### [facility] [address] [place] [address] Dr. Rosangela Smyth RBC 2.67 106/ul Critically low 4.20-5.40 [facility] Comment on above: Performed By: #### C BC #### [facility] [address] [place] [address] Dr. Rosangela Smyth WBC 5.4 103/ul Normal 4.0-11.0 [facility] Comment on above: Performed By: #### C BC #### [facility] [address] [place] [address] Dr. Rosangela Smyth PROF CHEM 8 (BAS METB)on Anion gap [Moles/Vol] 11.7 mmol/L Normal [facility] Comment on above: Performed By: #### L IPID, CMP #### [facility] [address] [place] [address] Dr. Rosangela Smyth Calcium [Mass/Vol] 10.5 mg/dL Critically high 8.5-10.1 [facility] Comment on above: Performed By: #### L IPID, CMP #### [facility] [address] [address] [address] Rosangela Smyth Chloride [Moles/Vol] 114 mmol/L Critically high 98-107 [facility] Comment on above: Performed By: #### L IPID, CMP #### [facility] [address] [address] [address] Rosangela Smyth CO2 [Moles/Vol] 21.9 mmol/L Normal 21.0-32.0 [facility] Comment on above: Performed By: #### L IPID, CMP #### [facility] [address] [address] [address] Rosangela Smyth Creatinine [Mass/Vol] 0.91 mg/dL Normal 0.55-1.02 [facility] Comment on above: Performed By: #### L IPID, CMP #### [facility] [address] [address] [address] Rosangela Smyth EGFR-AF SOMALI >60 Normal >=60 [facility] Comment on above: Performed By: #### L IPID, CMP #### [facility] [address] [address] [address] Rosangela Smyth EGFR-NON AF SOMALI >60 Normal >=60 [facility] Comment on above: Performed By: #### L IPID, CMP #### [facility] [address] [address] [address] Rosangela Smyth Glucose [Mass/Vol] 108 mg/dL Critically high 74-106 [facility] Comment on above: Performed By: #### L IPID, CMP #### [facility] [address] [address] [address] Rosangela Smyth Potassium [Moles/Vol] 3.6 mmol/L Normal 3.5-5.1 [facility] Comment on above: Performed By: #### L IPID, CMP #### [facility] [address] [address] [address] Rosangela Smyth Sodium [Moles/Vol] 144 mmol/L Normal 136-145 [facility] Comment on above: Performed By: #### L IPID, CMP #### [facility] [address] [address] [address] Rosangela Smyth Urea nitrogen [Mass/Vol] 20.0 mg/dL Critically high 7.0-18.0 [facility] Comment on above: Performed By: #### L IPID, CMP #### [facility] [address] [place] [address] Dr. Rosangela Smyth Urea nitrogen/Creatinine [Mass ratio] 22.0 mg/mg Normal [facility] Comment on above: Performed By: #### L IPID, CMP #### [facility] [address] [place] [address] Dr. Rosangela Smyth CBC AUTO DIFFon 09-24-2022 BASO # 0.0 103/ul Normal 0.0-0.1 [facility] Comment on above: Performed By: #### C BC #### [facility] [address] [place] [address] Dr. Rosangela Smyth Basophils/100 WBC (Bld) 0.0 % Critically low 0.2-2.0 [facility] Comment on above: Performed By: #### C BC #### [facility] [address] [place] [address] Dr. Rosangela Smyth EO # 0.0 103/ul Normal 0.0-0.7 [facility] Comment on above: Performed By: #### C BC #### [facility] [address] [place] [address] Dr. Rosangela Smyth Eosinophils/100 WBC (Bld) 0.0 % Critically low 0.9-7.0 [facility] Comment on above: Performed By: #### C BC #### [facility] [address] [place] [address] Dr. Rosangela Smyth Erythrocyte distribution width (RBC) [Ratio] 15.7 % Critically high 11.0-15.0 [facility] Comment on above: Performed By: #### C BC #### [facility] [address] [place] [address] Dr. Rosangela Smyth Hematocrit (Bld) [Volume fraction] 30.3 % Critically low 36.0-48.0 [facility] Comment on above: Performed By: #### C BC #### [facility] [address] [address] [address] Rosangela Smyth Hemoglobin (Bld) [Mass/Vol] 9.5 g/dL Critically low 12.0-16.0 [facility] Comment on above: Performed By: #### C BC #### [facility] [address] [address] [address] Rosangela Smyth IG # 0.02 10e3/ul Normal 0.00-0.03 [facility] Comment on above: Performed By: #### C BC #### [facility] [address] [address] [address] Rosangela Smyth IG % 0.6 % Critically high 0.0-0.5 [facility] Comment on above: Performed By: #### C BC #### [facility] [address] [address] [address] Rosangela Smyth LYMPH # 0.6 103/ul Critically low 1.2-3.8 [facility] Comment on above: Performed By: #### C BC #### [facility] [address] [address] [address] Rosangela Smyth Lymphocytes/100 WBC (Bld) 17.7 % Critically low 20.5-60.0 [facility] Comment on above: Performed By: #### C BC #### [facility] [address] [address] [address] Rosangela Smyth MANUAL DIFF REQ NO Normal [facility] Comment on above: Performed By: #### C BC #### [facility] [address] [address] [address] Rosangela Smyth MCH (RBC) [Entitic mass] 30.6 pg Normal 26.7-34.0 [facility] Comment on above: Performed By: #### C BC #### [facility] [address] [address] [address] Rosangela Smyth MCHC (RBC) [Mass/Vol] 31.4 g/dL Normal 29.9-35.2 [facility] Comment on above: Performed By: #### C BC #### [facility] [address] [address] [address] Rosangela Smyth MCV (RBC) [Entitic vol] 97.7 fL Normal 81.0-99.0 [facility] Comment on above: Performed By: #### C BC #### [facility] [address] [address] [address] Rosangela Smyth MONO # 0.1 103/ul Critically low 0.3-0.8 [facility] Comment on above: Performed By: #### C BC #### [facility] [address] [address] [address] Rosangela Smyth Monocytes/100 WBC (Bld) 2.5 % Normal 1.7-12.0 [facility] Comment on above: Performed By: #### C BC #### [facility] [address] [address] [address] Rosangela Smyth NEUT # 2.5 103/ul Normal 1.4-6.5 [facility] Comment on above: Performed By: #### C BC #### [facility] [address] [address] [address] Rosangela Smyth Neutrophils/100 WBC (Bld) 79.2 % Critically high 43.0-75.0 [facility] Comment on above: Performed By: #### C BC #### [facility] [address] [address] [address] Rosangela Smyth Platelet mean volume (Bld) [Entitic vol] 8.9 fL Critically low 9.5-13.5 [facility] Comment on above: Performed By: #### C BC #### [facility] [address] [address] [address] Rosangela Smyth PLT 218 103/ul Normal 150-450 [facility] Comment on above: Performed By: #### C BC #### [facility] [address] [address] [address] Rosangela Smyth RBC 3.10 106/ul Critically low 4.20-5.40 [facility] Comment on above: Performed By: #### C BC #### [facility] [address] [address] [address] Rosangela Smyth WBC 3.2 103/ul Critically low 4.0-11.0 [facility] Comment on above: Performed By: #### C BC #### [facility] [address] [address] [address] Rosangela Smyth POINT OF CARE GLUCOSEon 09-06 Glucose [Mass/Vol] 291 mg/dL Critically high 74-106 [facility] Comment on above: Performed By: #### P OCGLUC #### [facility] [address] [address] [address] Rosangela Smyth PROF CHEM 8 (BAS METB)on Anion gap [Moles/Vol] 14.6 mmol/L Normal [facility] Comment on above: Performed By: #### L ACT #### [facility] [address] [place] [address] Dr. Rosangela Smyth Calcium [Mass/Vol] 10.7 mg/dL Critically high 8.5-10.1 [facility] Comment on above: Performed By: #### L ACT #### [facility] [address] [place] [address] Dr. Rosangela Smyth Chloride [Moles/Vol] 113 mmol/L Critically high 98-107 [facility] Comment on above: Performed By: #### L ACT #### [facility] [address] [address] [address] Rosangela Smyth CO2 [Moles/Vol] 20.7 mmol/L Critically low 21.0-32.0 [facility] Comment on above: Performed By: #### L ACT #### [facility] [address] [address] [address] Rosangela Smyth Creatinine [Mass/Vol] 0.86 mg/dL Normal 0.55-1.02 [facility] Comment on above: Performed By: #### L ACT #### [facility] [address] [place] [address] Dr. Rosangela Smyth EGFR-AF SOMALI >60 Normal >=60 [facility] Comment on above: Performed By: #### L ACT #### [facility] [address] [address] [address] Rosangela Smyth EGFR-NON AF SOMALI >60 Normal >=60 [facility] Comment on above: Performed By: #### L ACT #### [facility] [address] [address] [address] Rosangela Smyth Glucose [Mass/Vol] 279 mg/dL Critically high 74-106 [facility] Comment on above: Performed By: #### L ACT #### [facility] [address] [address] [address] Rosangela Smyth Potassium [Moles/Vol] 4.3 mmol/L Normal 3.5-5.1 [facility] Comment on above: Performed By: #### L ACT #### [facility] [address] [address] [address] Rosangela Smyth Sodium [Moles/Vol] 144 mmol/L Normal 136-145 [facility] Comment on above: Performed By: #### L ACT #### [facility] [address] [address] [address] Rosangela Smyth Urea nitrogen [Mass/Vol] 14.0 mg/dL Normal 7.0-18.0 [facility] Comment on above: Performed By: #### L ACT #### [facility] [address] [address] [address] Rosangela Smyth Urea nitrogen/Creatinine [Mass ratio] 16.3 mg/mg Normal [facility] Comment on above: Performed By: #### L ACT #### [facility] [address] [address] [address] Rosangela Smyth CARDIAC CRYSTAL ADMITon 023 CK [Catalytic activity/Vol] 22 U/L Critically low 26-192 [facility] Comment on above: Performed By: #### L IPID, CMP #### [facility] [address] [address] [address] Rosangela Smyth CK.MB [Mass/Vol] ng/mL Normal <=3.60 [facility] Comment on above: Performed By: #### L IPID, CMP #### [facility] [address] [place] [address] Dr. Rosangela Smyth HSTROP 5.7 pg/mL Normal 4.0-51.3 [facility] Comment on above: Result Comment: CUT- OFF POINTS HAVE BEEN ESTABLISHED BASED ON THE FOURTH UNIVERSAL DEFINITIONS OF MYOCARDIAL INFARCTION. THE UPPER REFERENCE LIMIT (URL) OF TROPONIN, DEFINED THE 99TH PERCENTILE OF cTnI DISTRIBUTION IN A REFERENCE POPULATION, HAS BEEN CONFIRMED THE DECISION THRESHOLD FOR [place] DIAGNOSIS. Performed By: #### L IPID, CMP #### [facility] [address] [place] [address] Dr. Rosangela Smyth JOVAN 40 ng/mL Normal 9-82 [facility] Comment on above: Performed By: #### L IPID, CMP #### [facility] [address] [place] [address] Dr. Rosangela Smyth CBC AUTO DIFFon 09-23-2022 BASO # 0.0 103/ul Normal 0.0-0.1 [facility] Comment on above: Performed By: #### L ACT #### [facility] [address] [place] [address] Dr. Rosangela Smyth Basophils/100 WBC (Bld) 0.0 % Critically low 0.2-2.0 [facility] Comment on above: Performed By: #### L ACT #### [facility] [address] [place] [address] Dr. Rosangela Smyth EO # 0.1 103/ul Normal 0.0-0.7 [facility] Comment on above: Performed By: #### L ACT #### [facility] [address] [place] [address] Dr. Rosangela Smyth Eosinophils/100 WBC (Bld) 1.8 % Normal 0.9-7.0 [facility] Comment on above: Performed By: #### L ACT #### [facility] [address] [place] [address] Dr. Rosangela Smyth Erythrocyte distribution width (RBC) [Ratio] 15.6 % Critically high 11.0-15.0 [facility] Comment on above: Performed By: #### L ACT #### [facility] [address] [address] [address] Rosangela Smyth Hematocrit (Bld) [Volume fraction] 26.0 % Critically low 36.0-48.0 [facility] Comment on above: Performed By: #### L ACT #### [facility] [address] [address] [address] Rosangela Smyth Hemoglobin (Bld) [Mass/Vol] 8.5 g/dL Critically low 12.0-16.0 [facility] Comment on above: Performed By: #### L ACT #### [facility] [address] [address] [address] Rosangela Smyth IG # 0.02 10e3/ul Normal 0.00-0.03 [facility] Comment on above: Performed By: #### L ACT #### [facility] [address] [place] [address] Dr. Rosangela Smyth IG % 0.5 % Normal 0.0-0.5 [facility] Comment on above: Performed By: #### L ACT #### [facility] [address] [place] [address] Dr. Rosangela Smyth LYMPH # 0.9 103/ul Critically low 1.2-3.8 [facility] Comment on above: Performed By: #### L ACT #### [facility] [address] [place] [address] Dr. Rosangela Smyth Lymphocytes/100 WBC (Bld) 24.0 % Normal 20.5-60.0 [facility] Comment on above: Performed By: #### L ACT #### [facility] [address] [place] [address] Dr. Rosangela Smyth MANUAL DIFF REQ NO Normal [facility] Comment on above: Performed By: #### L ACT #### [facility] [address] [place] [address] Dr. Rosangela Smyth MCH (RBC) [Entitic mass] 31.3 pg Normal 26.7-34.0 [facility] Comment on above: Performed By: #### L ACT #### [facility] [address] [address] [address] Rosangela Smyth MCHC (RBC) [Mass/Vol] 32.7 g/dL Normal 29.9-35.2 [facility] Comment on above: Performed By: #### L ACT #### [facility] [address] [place] [address] Dr. Rosangela Smyth MCV (RBC) [Entitic vol] 95.6 fL Normal 81.0-99.0 [facility] Comment on above: Performed By: #### L ACT #### [facility] [address] [address] [address] Rosangela Smyth MONO # 0.2 103/ul Critically low 0.3-0.8 [facility] Comment on above: Performed By: #### L ACT #### [facility] [address] [place] [address] Dr. Rosangela Smyth Monocytes/100 WBC (Bld) 4.0 % Normal 1.7-12.0 [facility] Comment on above: Performed By: #### L ACT #### [facility] [address] [place] [address] Dr. Rosangela Smyth NEUT # 2.6 103/ul Normal 1.4-6.5 [facility] Comment on above: Performed By: #### L ACT #### [facility] [address] [place] [address] Dr. Rosangela Smyth Neutrophils/100 WBC (Bld) 69.7 % Normal 43.0-75.0 [facility] Comment on above: Performed By: #### L ACT #### [facility] [address] [address] [address] Rosangela Smyth Platelet mean volume (Bld) [Entitic vol] 9.1 fL Critically low 9.5-13.5 [facility] Comment on above: Performed By: #### L ACT #### [facility] [address] [place] [address] Dr. Rosangela Smyth PLT 244 103/ul Normal 150-450 [facility] Comment on above: Performed By: #### L ACT #### [facility] [address] [address] [address] Rosangela Smyth RBC 2.72 106/ul Critically low 4.20-5.40 [facility] Comment on above: Performed By: #### L ACT #### [facility] [address] [address] [address] Rosangela Smyth WBC 3.8 103/ul Critically low 4.0-11.0 [facility] Comment on above: Performed By: #### L ACT #### [facility] [address] [address] [address] Rosangela Smyth BASO # 0.0 103/ul Normal 0.0-0.1 [facility] Comment on above: Performed By: #### L IPID, CMP #### [facility] [address] [place] [address] Dr. Rosangela Smyth Basophils/100 WBC (Bld) 0.3 % Normal 0.2-2.0 [facility] Comment on above: Performed By: #### L IPID, CMP #### [facility] [address] [place] [address] Dr. Rosangela Smyth EO # 0.0 103/ul Normal 0.0-0.7 [facility] Comment on above: Performed By: #### L IPID, CMP #### [facility] [address] [place] [address] Dr. Rosangela Smyth Eosinophils/100 WBC (Bld) 1.1 % Normal 0.9-7.0 [facility] Comment on above: Performed By: #### L IPID, CMP #### [facility] [address] [place] [address] Dr. Rosangela Smyth Erythrocyte distribution width (RBC) [Ratio] 15.5 % Critically high 11.0-15.0 [facility] Comment on above: Performed By: #### L IPID, CMP #### [facility] [address] [place] [address] Dr. Rosangela Smyth Hematocrit (Bld) [Volume fraction] 31.9 % Critically low 36.0-48.0 [facility] Comment on above: Performed By: #### L IPID, CMP #### [facility] [address] [address] [address] Rosangela Smyth Hemoglobin (Bld) [Mass/Vol] 10.4 g/dL Critically low 12.0-16.0 [facility] Comment on above: Performed By: #### L IPID, CMP #### [facility] [address] [address] [address] Rosangela Smyth IG # 0.03 10e3/ul Normal 0.00-0.03 [facility] Comment on above: Performed By: #### L IPID, CMP #### [facility] [address] [place] [address] Dr. Rosangela Smyth IG % 0.8 % Critically high 0.0-0.5 [facility] Comment on above: Performed By: #### L IPID, CMP #### [facility] [address] [place] [address] Dr. Rosangela Smyth LYMPH # 1.0 103/ul Critically low 1.2-3.8 [facility] Comment on above: Performed By: #### L IPID, CMP #### [facility] [address] [place] [address] Dr. Rosangela Smyth Lymphocytes/100 WBC (Bld) 26.4 % Normal 20.5-60.0 [facility] Comment on above: Performed By: #### L IPID, CMP #### [facility] [address] [place] [address] Dr. Rosangela Smyth MANUAL DIFF REQ NO Normal [facility] Comment on above: Performed By: #### L IPID, CMP #### [facility] [address] [place] [address] Dr. Rosangela Smyth MCH (RBC) [Entitic mass] 30.7 pg Normal 26.7-34.0 [facility] Comment on above: Performed By: #### L IPID, CMP #### [facility] [address] [place] [address] Dr. Rosangela Smyth MCHC (RBC) [Mass/Vol] 32.6 g/dL Normal 29.9-35.2 [facility] Comment on above: Performed By: #### L IPID, CMP #### [facility] [address] [place] [address] Dr. Rosangela Smyth MCV (RBC) [Entitic vol] 94.1 fL Normal 81.0-99.0 [facility] Comment on above: Performed By: #### L IPID, CMP #### [facility] [address] [place] [address] Dr. Rosangela Smyth MONO # 0.1 103/ul Critically low 0.3-0.8 [facility] Comment on above: Performed By: #### L IPID, CMP #### [facility] [address] [place] [address] Dr. Rosangela Smyth Monocytes/100 WBC (Bld) 3.2 % Normal 1.7-12.0 [facility] Comment on above: Performed By: #### L IPID, CMP #### [facility] [address] [place] [address] Dr. Rosangela Smyth NEUT # 2.5 103/ul Normal 1.4-6.5 [facility] Comment on above: Performed By: #### L IPID, CMP #### [facility] [address] [place] [address] Dr. Rosangela Smyth Neutrophils/100 WBC (Bld) 68.2 % Normal 43.0-75.0 [facility] Comment on above: Performed By: #### L IPID, CMP #### [facility] [address] [place] [address] Dr. Rosangela Smyth Platelet mean volume (Bld) [Entitic vol] 8.8 fL Critically low 9.5-13.5 [facility] Comment on above: Performed By: #### L IPID, CMP #### [facility] [address] [place] [address] Dr. Rosangela Smyth PLT 242 103/ul Normal 150-450 [facility] Comment on above: Performed By: #### L IPID, CMP #### [facility] [address] [place] [address] Dr. Rosangela Smyth RBC 3.39 106/ul Critically low 4.20-5.40 [facility] Comment on above: Performed By: #### L IPID, CMP #### [facility] [address] [address] [address] Rosangela Smyth WBC 3.7 103/ul Critically low 4.0-11.0 [facility] Comment on above: Performed By: #### L IPID, CMP #### [facility] [id number] Rosangela Smyth CTA CHEST WO W [...] KWAN MADRID Date: 2022-09-23 01:51 Normal [facility] CULTURE BLOODon 09-23-2022 Microscopic examination of blood, culture Culture Observations: NO GROWTH AT 5 DAYS. Normal [facility] Comment on above: Performed By: #### L IPID, CMP #### [facility] [address] [place], [place] [address] Dr. Rosangela Smyth Microscopic examination of blood, culture Culture Observations: NO GROWTH AT 5 DAYS. Normal [facility] Comment on above: Performed By: #### L IPID, CMP #### [facility] [address] [place] [address] Dr. Rosangela Smyth Covid-19 PCR ([facility])on 09-06 SARS-CoV-2 (COVID-19) RNA RICH+probe Ql (Unsp spec) Detected Abnormal NOT DETECTED [facility] Comment on above: Result Comment: This test is not yet approved or cleared by the [place] FDA. When there are no FDA-approved or cleared tests available, and other criteria are met, FDA can make tests available under an emergency access mechanism called an Emergency Use Authorization (EUA). The EUA for this test is supported by the Pediatric Registered Nurse of Health and Human Service's declaration that [...] used). Performed By: #### O BSCRN #### [facility] [address] [place] [address] Dr. Rosangela Smyth D-DIMERon 09-23-2022 D-DIMER 0.78 mg/L FEU Critically high <=0.59 [facility] [place] Comment on above: Performed By: #### O BSCRN #### [facility] [address] [place] [address] Dr. Rosangela Smyth D-DIMER COMMENTS SEE BELOW Normal [facility] Comment on above: Result Comment: [...] hospitalization. Performed By: #### O BSCRN #### [facility] [address] [address] [address] Rosangela Smyth ER URINE PROFILEon 3 Bilirubin Ql (U) Negative Normal NEGATIVE [facility] Comment on above: Performed By: #### L IPID, CMP #### [facility] [address] [address] [address] Rosangela Smyth Clarity (U) CLEAR Normal CLEAR [facility] Comment on above: Performed By: #### L IPID, CMP #### [facility] [address] [place] [address] Dr. Rosangela Smyth Color (U) LT. YELLOW Normal YELLOW [facility] Comment on above: Performed By: #### L IPID, CMP #### [facility] [address] [place] [address] Dr. Rosangela ANAND A micrscopic examination will be performed if indicated. Normal [facility] Comment on above: Performed By: #### L IPID, CMP #### [facility] [address] [place] [address] Dr. Rosangela Smyth Glucose Ql (U) 250 mg/dl Abnormal NEGATIVE [facility] Comment on above: Performed By: #### L IPID, CMP #### [facility] [address] [place] [address] Dr. Rosangela Smyth Hemoglobin Ql (U) Negative Normal NEGATIVE [facility] Comment on above: Performed By: #### L IPID, CMP #### [facility] [address] [address] [address] Rosangela Smyth Ketones Ql (U) Negative Normal NEGATIVE [facility] Comment on above: Performed By: #### L IPID, CMP #### [facility] [address] [place] [address] Dr. Rosangela Smyth LEUKOCYTES Negative Normal NEGATIVE [facility] Comment on above: Performed By: #### L IPID, CMP #### [facility] [address] [place] [address] Dr. Rosangela Smyth Nitrite Ql (U) Negative Normal NEGATIVE [facility] Comment on above: Performed By: #### L IPID, CMP #### [facility] [address] [place] [address] Dr. Rosangela Smyth pH (U) 6.0 [pH] Normal 5-9 [facility] Comment on above: Performed By: #### L IPID, CMP #### [facility] [address] [place] [address] Dr. Rosangela Smyth SPEC GRAVITY 1.015 Normal 1.005-<=1.02 5 [facility] Comment on above: Performed By: #### L IPID, CMP #### [facility] [address] [place] [address] Dr. Rosangela Smyth UA PROTEIN TRACE Normal NEGATIVE/ TRACE [facility] Comment on above: Performed By: #### L IPID, CMP #### [facility] [address] [place] [address] Dr. Rosangela Smyth UR MICRO IND NOT INDICATED Normal [facility] Comment on above: Performed By: #### L IPID, CMP #### [facility] [address] [place] [address] Dr. Rosangela Smyth Urobilinogen Qn (U) 0.2 {Estevan'U}/dL Normal 0.2 - 1. 0 [facility] Comment on above: Performed By: #### L IPID, CMP #### [facility] [address] [place] [address] Dr. Rosangela Smyth INFLUENZA A AND B AGon 09-23 INFLUENZA A AG Negative Normal NEGATIVE SEE COMMENT [facility] Comment on above: Performed By: #### L IPID, CMP #### [facility] [address] [place] [address] Dr. Rosangela Smyth INFLUENZA B AG Negative Normal NEGATIVE SEE COMMENT [facility] Comment on above: Performed By: #### L IPID, CMP #### [facility] [address] [place] [address] Dr. Rosangela Smyth LACTATE/LACTIC ACIDon 2022 Lactate [Moles/Vol] 1.4 mmol/L Normal 0.4-1.9 [facility] Comment on above: Performed By: #### O BSCRN #### [facility] [address] [place] [address] Dr. Rosangela Smyth Lactate [Moles/Vol] 0.9 mmol/L Normal 0.4-1.9 [facility] Comment on above: Performed By: #### C BC #### [facility] [address] [place] [address] Dr. Rosangela Smyth Lactate [Moles/Vol] 1.4 mmol/L Normal 0.4-1.9 [facility] Comment on above: Performed By: #### L ACT #### [facility] [address] [place] [address] Dr. Rosangela Smyth POINT OF CARE GLUCOSEon 09-06 Glucose [Mass/Vol] 421 mg/dL Critically high 74-106 [facility] Comment on above: Performed By: #### O BSCRN #### [facility] [address] [place] [address] Dr. Rosangela Smyth PROF 14(COMP METB)on 023 Albumin [Mass/Vol] 2.7 g/dL Critically low 3.4-5.0 [facility] Comment on above: Performed By: #### O BSCRN #### [facility] [address] [place] [address] Dr. Rosangela Smyth Albumin/Globulin [Mass ratio] 0.7 {ratio} Normal [facility] Comment on above: Performed By: #### O BSCRN #### [facility] [address] [place] [address] Dr. Rosangela Smyth ALP [Catalytic activity/Vol] 76 U/L Normal 46-116 [facility] Comment on above: Performed By: #### O BSCRN #### [facility] [address] [place] [address] Dr. Rosangela Smyth ALT [Catalytic activity/Vol] 19 U/L Normal 14-59 [facility] Comment on above: Performed By: #### O BSCRN #### [facility] [address] [place] [address] Dr. Rosangela Smyth Anion gap [Moles/Vol] 11.9 mmol/L Normal [facility] Comment on above: Performed By: #### O BSCRN #### [facility] [address] [place] [address] Dr. Rosangela Smyth AST [Catalytic activity/Vol] 20 U/L Normal 15-37 [facility] Comment on above: Performed By: #### O BSCRN #### [facility] [address] [place] [address] Dr. Rosangela Smyth Bilirubin [Mass/Vol] 0.3 mg/dL Normal 0.2-1.0 [facility] Comment on above: Performed By: #### O BSCRN #### [facility] [address] [place] [address] Dr. Rosangela Smyth Calcium [Mass/Vol] 10.2 mg/dL Critically high 8.5-10.1 [facility] Comment on above: Performed By: #### O BSCRN #### [facility] [address] [place] [address] Dr. Rosangela Smyth Chloride [Moles/Vol] 103 mmol/L Normal 98-107 [facility] Comment on above: Performed By: #### O BSCRN #### [facility] [address] [place] [address] Dr. Rosangela Smyth CO2 [Moles/Vol] 23.7 mmol/L Normal 21.0-32.0 [facility] Comment on above: Performed By: #### O BSCRN #### [facility] [address] [place] [address] Dr. Rosangela Smyth Creatinine [Mass/Vol] 0.90 mg/dL Normal 0.55-1.02 [facility] Comment on above: Performed By: #### O BSCRN #### [facility] [address] [place] [address] Dr. Rosangela Smyth EGFR-AF SOMALI >60 Normal >=60 [facility] Comment on above: Performed By: #### O BSCRN #### [facility] [address] [place] [address] Dr. Rosangela Smyth EGFR-NON AF SOMALI >60 Normal >=60 [facility] Comment on above: Performed By: #### O BSCRN #### [facility] [address] [address] [address] Rosangela Smyth Globulin (S) [Mass/Vol] 3.9 g/dL Normal [facility] Comment on above: Performed By: #### O BSCRN #### [facility] [address] [place] [address] Dr. Rosangela Smyth Glucose [Mass/Vol] 237 mg/dL Critically high 74-106 [facility] Comment on above: Performed By: #### O BSCRN #### [facility] [address] [place] [address] Dr. Rosangela Smyth Potassium [Moles/Vol] 3.6 mmol/L Normal 3.5-5.1 [facility] Comment on above: Performed By: #### O BSCRN #### [facility] [address] [place] [address] Dr. Rosangela Smyth Protein [Mass/Vol] 6.6 g/dL Normal 6.4-8.2 [facility] Comment on above: Performed By: #### O BSCRN #### [facility] [address] [place] [address] Dr. Rosangela Smyth Sodium [Moles/Vol] 135 mmol/L Critically low 136-145 [facility] Comment on above: Performed By: #### O BSCRN #### [facility] [address] [place] [address] Dr. Rosangela Smyth Urea nitrogen [Mass/Vol] 11.0 mg/dL Normal 7.0-18.0 [facility] Comment on above: Performed By: #### O BSCRN #### [facility] [address] [place] [address] Dr. Rosangela Smyth Urea nitrogen/Creatinine [Mass ratio] 12.2 mg/mg Normal [facility] Comment on above: Performed By: #### O BSCRN #### [facility] [address] [place] [address] Dr. Rosangela Smyth PROF CHEM 8 (BAS METB)on Anion gap [Moles/Vol] 10.7 mmol/L Normal [facility] Comment on above: Performed By: #### L IPID, CMP #### [facility] [address] [address] [address] Rosangela Smyth Calcium [Mass/Vol] 10.3 mg/dL Critically high 8.5-10.1 [facility] Comment on above: Performed By: #### L IPID, CMP #### [facility] [address] [address] [address] Rosangela Smyth Chloride [Moles/Vol] 97 mmol/L Critically low 98-107 [facility] Comment on above: Performed By: #### L IPID, CMP #### [facility] [address] [place] [address] Dr. Rosangela Smyth CO2 [Moles/Vol] 26.1 mmol/L Normal 21.0-32.0 [facility] [place] [facility] Comment on above: Performed By: #### L IPID, CMP #### [facility] [address] [place] [address] Dr. Rosangela Smyth Creatinine [Mass/Vol] 1.05 mg/dL Critically high 0.55-1.02 [facility] Comment on above: Performed By: #### L IPID, CMP #### [facility] [address] [place] [address] Dr. Rosangela Smyth EGFR-AF SOMALI >60 Normal >=60 [facility] Comment on above: Performed By: #### L IPID, CMP #### [facility] [address] [place] [address] Dr. Rosangela Smyth EGFR-NON AF SOMALI 54 mL/min/1.73m2 Critically low >=60 [facility] Comment on above: Performed By: #### L IPID, CMP #### [facility] [address] [place] [address] Dr. Rosangela Smyth Glucose [Mass/Vol] 255 mg/dL Critically high 74-106 [facility] Comment on above: Performed By: #### L IPID, CMP #### [facility] [address] [address] [address] Rosangela Smyth Potassium [Moles/Vol] 3.8 mmol/L Normal 3.5-5.1 [facility] Comment on above: Performed By: #### L IPID, CMP #### [facility] [address] [address] [address] Rosangela Smyth Sodium [Moles/Vol] 130 mmol/L Critically low 136-145 [facility] Comment on above: Performed By: #### L IPID, CMP #### [facility] [address] [place] [address] Dr. Rosangela Smyth Urea nitrogen [Mass/Vol] 18.0 mg/dL Normal 7.0-18.0 [facility] Comment on above: Performed By: #### L IPID, CMP #### [facility] [address] [place] [address] Dr. Rosangela Smyth Urea nitrogen/Creatinine [Mass ratio] 17.1 mg/mg Normal [facility] Comment on above: Performed By: #### L IPID, CMP #### [facility] [address] [place] [address] Dr. Rosangela Smyth XR CHEST 1 Von [...] by: JUSTINA CURRAN Date: 2022-09-23 16:33 Normal [facility] XR CHEST 1 V XR CHEST [...] RAUL MARVIN Date: 2022-09-23 00:05 Normal [facility] CARDIAC CRYSTAL ADMITon 023 CK [Catalytic activity/Vol] 44 U/L Normal 26-192 [facility] Comment on above: Performed By: #### C YULIANA CORDONDM #### [facility] [address] [place] [address] Dr. Rosangela Smyth CK.MB [Mass/Vol] ng/mL Normal <=3.60 [facility] Comment on above: Performed By: #### C YULIANA CORDONDM #### [facility] [address] [place] [address] Dr. Rosangela Smyth HSTROP 6.3 pg/mL Normal 4.0-51.3 [facility] Comment on above: Result Comment: CUT- OFF POINTS HAVE BEEN ESTABLISHED BASED ON THE FOURTH UNIVERSAL DEFINITIONS OF MYOCARDIAL INFARCTION. THE UPPER REFERENCE LIMIT (URL) OF TROPONIN, DEFINED THE 99TH PERCENTILE OF cTnI DISTRIBUTION IN A REFERENCE POPULATION, HAS BEEN CONFIRMED THE DECISION THRESHOLD FOR [place] DIAGNOSIS. Performed By: #### C YULIANA CORDONDM #### [facility] [address] [place] [address] Dr. Rosangela Smyth JOVAN 39 ng/mL Normal 9-82 [facility] Comment on above: Performed By: #### C YULIANA CORDONDM #### [facility] [address] [address] [address] Rosangela Smyth CBC AUTO DIFFon 09-12-2022 BASO # 0.0 103/ul Normal 0.0-0.1 [facility] Comment on above: Performed By: #### L ACT #### [facility] [address] [address] [address] Rosangela Smyth Basophils/100 WBC (Bld) 0.3 % Normal 0.2-2.0 [facility] Comment on above: Performed By: #### L ACT #### [facility] [address] [place], [place] [id number] Dr. Rosangela Smyth EO # 0.1 103/ul Normal 0.0-0.7 [facility] Comment on above: Performed By: #### L ACT #### [facility] [address] [place] [address] Dr. Rosangela Smyth Eosinophils/100 WBC (Bld) 1.4 % Normal 0.9-7.0 [facility] Comment on above: Performed By: #### L ACT #### [facility] [address] [place] [address] Dr. Rosangela Smyth Erythrocyte distribution width (RBC) [Ratio] 16.1 % Critically high 11.0-15.0 [facility] Comment on above: Performed By: #### L ACT #### [facility] [address] [place] [address] Dr. Rosangela Smyth Hematocrit (Bld) [Volume fraction] 27.6 % Critically low 36.0-48.0 [facility] Comment on above: Performed By: #### L ACT #### [facility] [address] [place] [address] Dr. Rosangela Smyth Hemoglobin (Bld) [Mass/Vol] 9.2 g/dL Critically low 12.0-16.0 [facility] Comment on above: Performed By: #### L ACT #### [facility] [address] [place] [address] Dr. Rosangela Smyth IG # 0.01 10e3/ul Normal 0.00-0.03 [facility] Comment on above: Performed By: #### L ACT #### [facility] [address] [place] [address] Dr. Rosangela Smyth IG % 0.3 % Normal 0.0-0.5 [facility] Comment on above: Performed By: #### L ACT #### [facility] [address] [place] [address] Dr. Rosangela Smyth LYMPH # 0.6 103/ul Critically low 1.2-3.8 [facility] Comment on above: Performed By: #### L ACT #### [facility] [address] [place] [address] Dr. Rosangela Smyth Lymphocytes/100 WBC (Bld) 17.1 % Critically low 20.5-60.0 [facility] Comment on above: Performed By: #### L ACT #### [facility] [address] [place] [address] Dr. Rosangela Smyth MANUAL DIFF REQ NO Normal [facility] Comment on above: Performed By: #### L ACT #### [facility] [address] [place] [address] Dr. Rosangela Smyth MCH (RBC) [Entitic mass] 30.6 pg Normal 26.7-34.0 [facility] Comment on above: Performed By: #### L ACT #### [facility] [address] [place] [address] Dr. Rosangela Smyth MCHC (RBC) [Mass/Vol] 33.3 g/dL Normal 29.9-35.2 [facility] Comment on above: Performed By: #### L ACT #### [facility] [address] [place] [address] Dr. Rosangela Smyth MCV (RBC) [Entitic vol] 91.7 fL Normal 81.0-99.0 [facility] Comment on above: Performed By: #### L ACT #### [facility] [address] [place] [address] Dr. Rosangela Smyth MONO # 0.4 103/ul Normal 0.3-0.8 [facility] Comment on above: Performed By: #### L ACT #### [facility] [address] [place] [address] Dr. Rosangela Smyth Monocytes/100 WBC (Bld) 10.0 % Normal 1.7-12.0 [facility] Comment on above: Performed By: #### L ACT #### [facility] [address] [place] [address] Dr. Rosangela Smyth NEUT # 2.6 103/ul Normal 1.4-6.5 [facility] Comment on above: Performed By: #### L ACT #### [facility] [address] [place] [address] Dr. Rosangela Smyth Neutrophils/100 WBC (Bld) 70.9 % Normal 43.0-75.0 [facility] Comment on above: Performed By: #### L ACT #### [facility] [address] [place] [address] Dr. Rosangela Smyth Platelet mean volume (Bld) [Entitic vol] 8.2 fL Critically low 9.5-13.5 [facility] Comment on above: Performed By: #### L ACT #### [facility] [address] [address] [address] Rosangela Smyth PLT 277 103/ul Normal 150-450 [facility] Comment on above: Performed By: #### L ACT #### [facility] [address] [place] [address] Dr. Rosangela Smyth RBC 3.01 106/ul Critically low 4.20-5.40 [facility] Comment on above: Performed By: #### L ACT #### [facility] [address] [place] [address] Dr. Rosangela Smyth WBC 3.7 103/ul Critically low 4.0-11.0 [facility] Comment on above: Performed By: #### L ACT #### [facility] [address] [place] [address] Dr. Rosangela Smyth GROUP A STREP CULTUREon S. pyogenes Ag Ql (Unsp spec) Culture Observations: NEGATIVE FOR GROUP A STREPTOCOCCUS. Normal [facility] Comment on above: Performed By: #### L ACT #### [facility] [address] [place] [address] Dr. Rosangela Smyth PROF 14(COMP METB)on 023 Albumin [Mass/Vol] 3.8 g/dL Normal 3.4-5.0 [facility] Comment on above: Performed By: #### C VIRAL CORDON #### [facility] [address] [place] [address] Dr. Rosangela Smyth Albumin/Globulin [Mass ratio] 1.1 {ratio} Normal [facility] Comment on above: Performed By: #### C VIRAL CORDON #### [facility] [address] [address] [address] Rosangela Smyth ALP [Catalytic activity/Vol] 88 U/L Normal 46-116 [facility] Comment on above: Performed By: #### C NERIS, CMADM #### [facility] [address] [address] [address] Rosangela Smyth ALT [Catalytic activity/Vol] 31 U/L Normal 14-59 [facility] Comment on above: Performed By: #### C NERIS, CMADM #### [facility] [address] [address] [address] Rosangela Smyth Anion gap [Moles/Vol] 10.2 mmol/L Normal [facility] Comment on above: Performed By: #### C NERIS, CMADM #### [facility] [address] [address] [address] Rosangela Smyth AST [Catalytic activity/Vol] 24 U/L Normal 15-37 [facility] Comment on above: Performed By: #### C NERIS, CMADM #### [facility] [address] [address] [address] Rosangela Smyth Bilirubin [Mass/Vol] 0.3 mg/dL Normal 0.2-1.0 [facility] Comment on above: Performed By: #### C NERIS, CMADM #### [facility] [address] [address] [address] Rosangela Smyth Calcium [Mass/Vol] 11.1 mg/dL Critically high 8.5-10.1 [facility] Comment on above: Performed By: #### C NERIS, CMADM #### [facility] [address] [address] [address] Rosangela Smyth Chloride [Moles/Vol] 101 mmol/L Normal 98-107 [facility] Comment on above: Performed By: #### C NERIS, CMADM #### [facility] [address] [address] [address] Rosangela Smyth CO2 [Moles/Vol] 26.4 mmol/L Normal 21.0-32.0 [facility] Comment on above: Performed By: #### C NERIS, CMADM #### [facility] [address] [address] [address] Rosangela Smyth Creatinine [Mass/Vol] 1.15 mg/dL Critically high 0.55-1.02 [facility] Comment on above: Performed By: #### C MP, CMADM #### [facility] [address] [address] [address] Rosangela Smyth EGFR-AF SOMALI 59 mL/min/1.73m2 Critically low >=60 [facility] Comment on above: Performed By: #### C MP, CMADM #### [facility] [address] [address] [address] Rosangela Smyth EGFR-NON AF SOMALI 48 mL/min/1.73m2 Critically low >=60 [facility] Comment on above: Performed By: #### C MP, CMADM #### [facility] [address] [address] [address] Rosangela Smyth Globulin (S) [Mass/Vol] 3.6 g/dL Normal [facility] Comment on above: Performed By: #### C MP, CMADM #### [facility] [address] [address] [address] Rosangela Smyth Glucose [Mass/Vol] 174 mg/dL Critically high 74-106 [facility] Comment on above: Performed By: #### C MP, CMADM #### [facility] [address] [address] [address] Rosangela Smyth Potassium [Moles/Vol] 4.6 mmol/L Normal 3.5-5.1 [facility] Comment on above: Performed By: #### C MP, CMADM #### [facility] [address] [address] [address] Rosangela Smyth Protein [Mass/Vol] 7.4 g/dL Normal 6.4-8.2 [facility] Comment on above: Performed By: #### C MP, CMADM #### [facility] [address] [address] [address] Rosangela Smyth Sodium [Moles/Vol] 133 mmol/L Critically low 136-145 [facility] Comment on above: Performed By: #### C MP, CMADM #### [facility] [address] [place], [place] [address] Dr. Rosangela Smyth Urea nitrogen [Mass/Vol] 14.0 mg/dL Normal 7.0-18.0 [facility] Comment on above: Performed By: #### C MP, CMADM #### [facility] [address] [place], [place] [address] Dr. Rosangela Smyth Urea nitrogen/Creatinine [Mass ratio] 12.2 mg/mg Normal [facility] Comment on above: Performed By: #### C MP, CMADM #### [facility] [address] [address] [address] Rosangela Smyth STREPT SCREENon 09-12-2022 STREP SCREEN A Negative Normal NEGATIVE [facility] Comment on above: Performed By: #### L ACT #### [facility] [address] [address] [address] Rosangela Smyth XR CHEST 1 Von [...] by: LINNETTE AVENDANO Date: 2022-09-12 13:23 Normal [facility] Progress Noteson 09-03-2022 [employer] Authentication Interface Message Text EMERGENCY TRIAGE, TREAT AND TRANSPORT (ET3) DOCUMENTATION OF TELEHEALTH VISIT Date / Time: 03/18/2022 / 15:00 Name: Kaya Schilling : 1965 SSN: (Not on file) EMS Agency: [facility] [x] Verbal consent obtained [] Implied [...] Completed by: Devon Hays MD Normal [facility] AMYLASEon 07-08-2022 Amylase [Catalytic activity/Vol] 49 U/L Normal 25-115 [facility] Comment on above: Performed By: #### C BC #### [facility] [id number] Rosangela Smyth CBC AUTO DIFFon 07-08-2022 BASO # 0.0 103/ul Normal 0.0-0.1 [facility] Comment on above: Performed By: #### O BSCRN #### [facility] [address] [place] [address] Dr. Rosangela Smyth Basophils/100 WBC (Bld) 0.4 % Normal 0.2-2.0 [facility] Comment on above: Performed By: #### O BSCRN #### [facility] [address] [place] [address] Dr. Rosangela Smyth EO # 0.2 103/ul Normal 0.0-0.7 [facility] Comment on above: Performed By: #### O BSCRN #### [facility] [address] [place] [address] Dr. Rosangela Smyth Eosinophils/100 WBC (Bld) 4.4 % Normal 0.9-7.0 [facility] Comment on above: Performed By: #### O BSCRN #### [facility] [address] [place] [address] Dr. Rosangela Smyth Erythrocyte distribution width (RBC) [Ratio] 17.9 % Critically high 11.0-15.0 [facility] Comment on above: Performed By: #### O BSCRN #### [facility] [address] [place] [address] Dr. Rosangela Smyth Hematocrit (Bld) [Volume fraction] 30.4 % Critically low 36.0-48.0 [facility] Comment on above: Performed By: #### O BSCRN #### [facility] [address] [place] [address] Dr. Rosangela Smyth Hemoglobin (Bld) [Mass/Vol] 9.6 g/dL Critically low 12.0-16.0 [facility] Comment on above: Performed By: #### O BSCRN #### [facility] [address] [place] [address] Dr. Rosangela Smyth IG # 0.02 10e3/ul Normal 0.00-0.03 [facility] Comment on above: Performed By: #### O BSCRN #### [facility] [address] [place] [address] Dr. Rosangela Smyth IG % 0.4 % Normal 0.0-0.5 [facility] Comment on above: Performed By: #### O BSCRN #### [facility] [address] [place] [address] Dr. Rosangela Smyth LYMPH # 1.4 103/ul Normal 1.2-3.8 [facility] Comment on above: Performed By: #### O BSCRN #### [facility] [address] [place] [address] Dr. Rosangela Smyth Lymphocytes/100 WBC (Bld) 28.6 % Normal 20.5-60.0 [facility] Comment on above: Performed By: #### O BSCRN #### [facility] [address] [place] [address] Dr. Rosangela Smyth MANUAL DIFF REQ NO Normal [facility] Comment on above: Performed By: #### O BSCRN #### [facility] [address] [place] [address] Dr. Rosangela Smyth MCH (RBC) [Entitic mass] 30.8 pg Normal 26.7-34.0 [facility] Comment on above: Performed By: #### O BSCRN #### [facility] [address] [place] [address] Dr. Rosangela Smyth MCHC (RBC) [Mass/Vol] 31.6 g/dL Normal 29.9-35.2 [facility] Comment on above: Performed By: #### O BSCRN #### [facility] [address] [place] [address] Dr. Rosangela Smyth MCV (RBC) [Entitic vol] 97.4 fL Normal 81.0-99.0 [facility] Comment on above: Performed By: #### O BSCRN #### [facility] [address] [place] [address] Dr. Rosangela Smyth MONO # 0.3 103/ul Normal 0.3-0.8 [facility] Comment on above: Performed By: #### O BSCRN #### [facility] [address] [address] [address] Rosangela Smyth Monocytes/100 WBC (Bld) 6.6 % Normal 1.7-12.0 [facility] Comment on above: Performed By: #### O BSCRN #### [facility] [address] [place] [address] Dr. Rosangela Smyth NEUT # 3.0 103/ul Normal 1.4-6.5 [facility] Comment on above: Performed By: #### O BSCRN #### [facility] [address] [place] [address] Dr. Rosangela Smyth Neutrophils/100 WBC (Bld) 59.6 % Normal 43.0-75.0 [facility] Comment on above: Performed By: #### O BSCRN #### [facility] [address] [place] [address] Dr. Rosangela Smyth Platelet mean volume (Bld) [Entitic vol] 8.6 fL Critically low 9.5-13.5 [facility] Comment on above: Performed By: #### O BSCRN #### [facility] [address] [place] [address] Dr. Rosangela Smyth PLT 351 103/ul Normal 150-450 [facility] Comment on above: Performed By: #### O BSCRN #### [facility] [address] [place] [address] Dr. Rosangela Smyth RBC 3.12 106/ul Critically low 4.20-5.40 [facility] Comment on above: Performed By: #### O BSCRN #### [facility] [address] [place] [address] Dr. Rosangela Smyth WBC 5.0 103/ul Normal 4.0-11.0 [facility] Comment on above: Performed By: #### O BSCRN #### [facility] [address] [place] [address] Dr. Rosangela Smyth [facility]on SARS-CoV-2 (COVID-19) RNA RICH+probe Ql (Unsp spec) Not detected Normal NOT DETECTED [facility] Comment on above: Result Comment: When [...] for this test is supported by the Pediatric Registered Nurse of Health and Human Service's declaration that [...] Performed By: #### L IPID, CMP #### [facility] [address] [place] [address] Dr. Rosangela Smyth ER URINE PROFILEon 2 Bilirubin Ql (U) Negative Normal NEGATIVE [facility] [place] [facility] Comment on above: Performed By: #### L IPID, CMP #### [facility] [address] [place] [address] Dr. Rosangela Smyth Clarity (U) CLEAR Normal CLEAR [facility] Comment on above: Performed By: #### L IPID, CMP #### [facility] [address] [place] [address] Dr. Rosangela Smyth Color (U) LT. YELLOW Normal YELLOW [facility] Comment on above: Performed By: #### L IPID, CMP #### [facility] [address] [place] [address] Dr. Rosangela Smyth ERUAHD A micrscopic examination will be performed if indicated. Normal [facility] Comment on above: Performed By: #### L IPID, CMP #### [facility] [address] [place] [address] Dr. Rosangela Smyth Glucose Ql (U) Negative Normal NEGATIVE [facility] Comment on above: Performed By: #### L IPID, CMP #### [facility] [address] [place] [address] Dr. Rosangela Smyth Hemoglobin Ql (U) Negative Normal NEGATIVE [facility] Comment on above: Performed By: #### L IPID, CMP #### [facility] [address] [place] [address] Dr. Rosangela Smyth Ketones Ql (U) Negative Normal NEGATIVE [facility] Comment on above: Performed By: #### L IPID, CMP #### [facility] [address] [place] [address] Dr. Rosangela Smyth LEUKOCYTES Negative Normal NEGATIVE [facility] Comment on above: Performed By: #### L IPID, CMP #### [facility] [address] [place] [address] Dr. Rosangela Smyth Nitrite Ql (U) Negative Normal NEGATIVE [facility] Comment on above: Performed By: #### L IPID, CMP #### [facility] [address] [place] [address] Dr. Rosangela Smyth pH (U) 6.0 [pH] Normal 5-9 [facility] Comment on above: Performed By: #### L IPID, CMP #### [facility] [address] [place] [address] Dr. Rosangela Smyth SPEC GRAVITY 1.010 Normal 1.005-<=1.02 5 [facility] Comment on above: Performed By: #### L IPID, CMP #### [facility] [address] [place] [address] Dr. Rosangela Smyth UA PROTEIN Negative Normal NEGATIVE/ TRACE [facility] Comment on above: Performed By: #### L IPID, CMP #### [facility] [address] [place] [address] Dr. Rosangela Smyth UR MICRO IND NOT INDICATED Normal [facility] Comment on above: Performed By: #### L IPID, CMP #### [facility] [address] [place] [address] Dr. Rosangela Smyth Urobilinogen Qn (U) 0.2 {Estevan'U}/dL Normal 0.2 - 1. 0 [facility] Comment on above: Performed By: #### L IPID, CMP #### [facility] [address] [place] [address] Dr. Rosangela Smyth LIPASEon 07-08-2022 Lipase [Catalytic activity/Vol] 89.0 U/L Normal 73.0-393.0 [facility] Comment on above: Performed By: #### L ACT #### [facility] [address] [place] [address] Dr. Rosangela Smyth PROF 14(COMP METB)on 022 Albumin [Mass/Vol] 3.9 g/dL Normal 3.4-5.0 [facility] Comment on above: Performed By: #### C BC #### [facility] [address] [place] [address] Dr. Rosangela Smyth Albumin/Globulin [Mass ratio] 1.1 {ratio} Normal [facility] Comment on above: Performed By: #### C BC #### [facility] [address] [place] [address] Dr. Rosangela Smyth ALP [Catalytic activity/Vol] 86 U/L Normal 46-116 [facility] Comment on above: Performed By: #### C BC #### [facility] [address] [place] [address] Dr. Rosangela Smyth ALT [Catalytic activity/Vol] 22 U/L Normal 14-59 [facility] [facility] Comment on above: Performed By: #### C BC #### [facility] [address] [place] [address] Dr. Rosangela Smyth Anion gap [Moles/Vol] 10.1 mmol/L Normal [facility] Comment on above: Performed By: #### C BC #### [facility] [address] [place] [address] Dr. Rosangela Smyth AST [Catalytic activity/Vol] 15 U/L Normal 15-37 [facility] Comment on above: Performed By: #### C BC #### [facility] [address] [place] [address] Dr. Rosangela Smyth Bilirubin [Mass/Vol] 0.3 mg/dL Normal 0.2-1.0 [facility] Comment on above: Performed By: #### C BC #### [facility] [address] [address] [address] Rosangela Smyth Calcium [Mass/Vol] 11.8 mg/dL Critically high 8.5-10.1 [facility] Comment on above: Performed By: #### C BC #### [facility] [address] [address] [address] Rosangela Smyth Chloride [Moles/Vol] 104 mmol/L Normal 98-107 [facility] Comment on above: Performed By: #### C BC #### [facility] [address] [address] [address] Rosangela Smyth CO2 [Moles/Vol] 28.4 mmol/L Normal 21.0-32.0 [facility] Comment on above: Performed By: #### C BC #### [facility] [address] [place] [address] Dr. Rosangela Smyth Creatinine [Mass/Vol] 0.84 mg/dL Normal 0.55-1.02 [facility] Comment on above: Performed By: #### C BC #### [facility] [address] [place] [address] Dr. Rosangela Smyth EGFR-AF SOMALI >60 Normal >=60 [facility] Comment on above: Performed By: #### C BC #### [facility] [address] [place] [address] Dr. Rosangela Smyth EGFR-NON AF SOMALI >60 Normal >=60 [facility] Comment on above: Performed By: #### C BC #### [facility] [address] [place] [address] Dr. Rosangela Smyth Globulin (S) [Mass/Vol] 3.7 g/dL Normal [facility] Comment on above: Performed By: #### C BC #### [facility] [address] [place] [address] Dr. Rosangela Smyth Glucose [Mass/Vol] 82 mg/dL Normal 74-106 [facility] Comment on above: Performed By: #### C BC #### [facility] [address] [address] [address] Rosangela Smyth Potassium [Moles/Vol] 4.5 mmol/L Normal 3.5-5.1 [facility] Comment on above: Performed By: #### C BC #### [facility] [address] [address] [address] Rosangela Smyth Protein [Mass/Vol] 7.6 g/dL Normal 6.4-8.2 [facility] Comment on above: Performed By: #### C BC #### [facility] [address] [address] [address] Rosangela Smyth Sodium [Moles/Vol] 138 mmol/L Normal 136-145 [facility] Comment on above: Performed By: #### C BC #### [facility] [address] [address] [address] Rosangela Smyth Urea nitrogen [Mass/Vol] 10.0 mg/dL Normal 7.0-18.0 [facility] Comment on above: Performed By: #### C BC #### [facility] [address] [address] [address] Rosangela Smyth Urea nitrogen/Creatinine [Mass ratio] 11.9 mg/mg Normal [facility] Comment on above: Performed By: #### C BC #### [facility] [address] [address] [address] Rosangela Smyth TROPONIN, HIGH SENSITIVITYon 07-08-2022 HSTROP 7.7 pg/mL Normal 4.0-51.3 [facility] Comment on above: Result Comment: CUT- OFF POINTS HAVE BEEN ESTABLISHED BASED ON THE FOURTH UNIVERSAL DEFINITIONS OF MYOCARDIAL INFARCTION. THE UPPER REFERENCE LIMIT (URL) OF TROPONIN, DEFINED THE 99TH PERCENTILE OF cTnI DISTRIBUTION IN A REFERENCE POPULATION, HAS BEEN CONFIRMED THE DECISION THRESHOLD FOR [place] DIAGNOSIS. Performed By: #### L ACT #### [facility] [address] [address] [address] Rosangela Smyth CBC W Auto Differential pane l (Bld)on 05-22-2022 Abs Immature Gran <0.10 k/uL [facility] Basophils (Bld) [#/Vol] 0.03 10*3/uL <0.11 k/uL [facility] Basophils/100 WBC (Bld) 0.5 % [facility] Differential cell count method Nom (Bld) Auto [facility] Eosinophils (Bld) [#/Vol] 0.26 10*3/uL <0.46 k/uL [facility] Eosinophils/100 WBC (Bld) 4.5 % [facility] Erythrocyte distribution width (RBC) [Ratio] 18.1 % High 11.5 - 15.0 % [facility] Hematocrit (Bld) [Volume fraction] 30.1 % Low 36.0 - 46.0 % [facility] Hemoglobin (Bld) [Mass/Vol] 9.3 g/dL Low 11.5 - 15.5 g/dL [facility] Immature Gran % 0.2 % [facility] Lymphocytes (Bld) [#/Vol] 1.40 10*3/uL 1.00 - 4.00 k/uL [facility] Lymphocytes/100 WBC (Bld) 24.1 % [facility] MCH (RBC) [Entitic mass] 29.5 pg 26.0 - 34.[address] [facility] MCHC (RBC) [Mass/Vol] 30.9 g/dL 30.5 - 36.0 g/dL [facility] MCV (RBC) [Entitic vol] 95.6 fL 80.0 - 100.[address] [facility] Monocytes (Bld) [#/Vol] 0.36 10*3/uL <0.87 k/uL [facility] Monocytes/100 WBC (Bld) 6.2 % [facility] Neutrophils (Bld) [#/Vol] 3.76 10*3/uL 1.45 - 7.50 k/uL [facility] Neutrophils/100 WBC (Bld) 64.5 % [facility] Nucleated RBC (Bld) [#/Vol] <0.01 k/uL [facility] Nucleated RBC/100 WBC (Bld) [Ratio] 0.0 /[address] [facility] Platelet mean volume (Bld) [Entitic vol] 8.6 fL Low 9.0 - 12.[address] [facility] Platelets (Bld) [#/Vol] 335 10*3/uL 150 - 400 k/uL [facility] RBC (Bld) [#/Vol] 3.15 10*6/uL Low 3.90 - 5.2 0 m/uL [facility] WBC (Bld) [#/Vol] 5.82 10*3/uL 3.70 - 11. 00 k/uL [facility] LD LACTATE DEHYDROon 022 LDH [Catalytic activity/Vol] 149 U/L 135 - 214 U/L [facility] RETIC COUNTon 05-22-2022 Reticulocytes (Bld) [#/Vol] 0.81817 10*3/uL 0.018 - 0.100 M/uL [facility] Reticulocytes (Bld) [#/Vol]o n 05-22-2022 Reticulocytes/100 RBC (Bld) 1.9 % 0.4 - 2.0 % [facility] LITHIUMon 05-20-2022 [place] (Eskalith(R)), Serum 0.9 mmol/L Normal 0.5-1.2 [facility] Comment on above: Result Comment: Plas ma concentration of 0.5 - 0.8 mmol/L are advised for long-term use; concentrations of up to 1.2 mmol/L may be necessary during acute treatment. Detection Limit = 0.1 <0.1 indicates None Detected Performed By: #### L ACT #### [facility] [address] [address] [address] Rosangela Smyth CREATININEon 05-19-2022 Creatinine [Mass/Vol] 0.84 mg/dL Normal 0.55-1.02 [facility] Comment on above: Performed By: #### O BSCRN #### [facility] [address] [address] [address] Rosangela Smyth EGFR-AF SOMALI >60 Normal >=60 [facility] Comment on above: Performed By: #### O BSCRN #### [facility] [address] [address] [address] Rosangela Smyth EGFR-NON AF SOMALI >60 Normal >=60 [facility] Comment on above: Performed By: #### O BSCRN #### [facility] [address] [address] [address] Rosangela Smyth TSHon 05-19-2022 TSH 2.337 uIU/mL Normal 0.358-3.740 [facility] Comment on above: Performed By: #### O BSCRN #### [facility] [address] [place] [address] Dr. Rosangela Smyth CBC AUTO DIFFon 05-16-2022 BASO # 0.0 103/ul Normal 0.0-0.1 [facility] Comment on above: Performed By: #### L IPID, CMP #### [facility] [address] [place] [address] Dr. Rosangela Smyth Basophils/100 WBC (Bld) 0.4 % Normal 0.2-2.0 [facility] Comment on above: Performed By: #### L IPID, CMP #### [facility] [address] [place] [address] Dr. Rosangela Smyth EO # 0.3 103/ul Normal 0.0-0.7 [facility] Comment on above: Performed By: #### L IPID, CMP #### [facility] [address] [place] [address] Dr. Rosangela Smyth Eosinophils/100 WBC (Bld) 5.3 % Normal 0.9-7.0 [facility] Comment on above: Performed By: #### L IPID, CMP #### [facility] [address] [place] [address] Dr. Rosangela Smyth Erythrocyte distribution width (RBC) [Ratio] 18.5 % Critically high 11.0-15.0 [facility] Comment on above: Performed By: #### L IPID, CMP #### [facility] [address] [place] [address] Dr. Rosangela Smyth Hematocrit (Bld) [Volume fraction] 30.9 % Critically low 36.0-48.0 [facility] Comment on above: Performed By: #### L IPID, CMP #### [facility] [address] [place] [address] Dr. Rosangela Smyth Hemoglobin (Bld) [Mass/Vol] 9.7 g/dL Critically low 12.0-16.0 [facility] Comment on above: Performed By: #### L IPID, CMP #### [facility] [address] [address] [address] Rosangela Smyth IG # 0.01 10e3/ul Normal 0.00-0.03 [facility] Comment on above: Performed By: #### L IPID, CMP #### [facility] [address] [address] [address] Rosangela Smyth IG % 0.2 % Normal 0.0-0.5 [facility] Comment on above: Performed By: #### L IPID, CMP #### [facility] [address] [address] [address] Rosangela Smyth LYMPH # 1.7 103/ul Normal 1.2-3.8 [facility] Comment on above: Performed By: #### L IPID, CMP #### [facility] [address] [place] [address] Dr. Rosangela Smyth Lymphocytes/100 WBC (Bld) 31.6 % Normal 20.5-60.0 [facility] Comment on above: Performed By: #### L IPID, CMP #### [facility] [address] [address] [address] Rosangela Smyth MANUAL DIFF REQ NO Normal [facility] Comment on above: Performed By: #### L IPID, CMP #### [facility] [address] [place] [address] Dr. Rosangela Smyth MCH (RBC) [Entitic mass] 30.1 pg Normal 26.7-34.0 [facility] Comment on above: Performed By: #### L IPID, CMP #### [facility] [address] [address] [address] Rosangela Smyth MCHC (RBC) [Mass/Vol] 31.4 g/dL Normal 29.9-35.2 [facility] Comment on above: Performed By: #### L IPID, CMP #### [facility] [address] [address] [address] Rosangela Smyth MCV (RBC) [Entitic vol] 96.0 fL Normal 81.0-99.0 [facility] Comment on above: Performed By: #### L IPID, CMP #### [facility] [address] [address] [address] Rosangela Smyth MONO # 0.5 103/ul Normal 0.3-0.8 [facility] Comment on above: Performed By: #### L IPID, CMP #### [facility] [address] [address] [address] Rosangela Smyth Monocytes/100 WBC (Bld) 8.7 % Normal 1.7-12.0 [facility] Comment on above: Performed By: #### L IPID, CMP #### [facility] [address] [address] [address] Rosangela Smyth NEUT # 3.0 103/ul Normal 1.4-6.5 [facility] Comment on above: Performed By: #### L IPID, CMP #### [facility] [address] [place] [address] Dr. Rosangela Smyth Neutrophils/100 WBC (Bld) 53.8 % Normal 43.0-75.0 [facility] Comment on above: Performed By: #### L IPID, CMP #### [facility] [address] [place] [address] Dr. Rosangela Smyth Platelet mean volume (Bld) [Entitic vol] 8.2 fL Critically low 9.5-13.5 [facility] Comment on above: Performed By: #### L IPID, CMP #### [facility] [address] [address] [address] Rosangela Smyth PLT 361 103/ul Normal 150-450 [facility] Comment on above: Performed By: #### L IPID, CMP #### [facility] [address] [address] [address] Rosangela Smyth RBC 3.22 106/ul Critically low 4.20-5.40 [facility] Comment on above: Performed By: #### L IPID, CMP #### [facility] [address] [address] [address] Rosangela Smyth WBC 5.5 103/ul Normal 4.0-11.0 [facility] Comment on above: Performed By: #### L IPID, CMP #### [facility] [address] [address] [address] Rosangela Smyth OCC BLD IMMUNO SCREENon 05-07 OCCULT BLOOD Negative Normal NEGATIVE [facility] Comment on above: Performed By: #### O BSCRN #### [facility] [address] [place] [address] Dr. Rosangela Smyth PROF CHEM 8 (BAS METB)on Anion gap [Moles/Vol] 13.7 mmol/L Normal [facility] Comment on above: Performed By: #### O BSCRN #### [facility] [address] [place] [address] Dr. Rosangela Smyth Calcium [Mass/Vol] 11.2 mg/dL Critically high 8.5-10.1 [facility] Comment on above: Performed By: #### O BSCRN #### [facility] [address] [place] [address] Dr. Rosangela Smyth Chloride [Moles/Vol] 105 mmol/L Normal 98-107 [facility] Comment on above: Performed By: #### O BSCRN #### [facility] [address] [place] [address] Dr. Rosangela Smyth CO2 [Moles/Vol] 24.4 mmol/L Normal 21.0-32.0 [facility] Comment on above: Performed By: #### O BSCRN #### [facility] [address] [place] [address] Dr. Rosangela Smyth Creatinine [Mass/Vol] 0.95 mg/dL Normal 0.55-1.02 [facility] Comment on above: Performed By: #### O BSCRN #### [facility] [address] [place] [address] Dr. Rosangela Smyth EGFR-AF SOMALI >60 Normal >=60 [facility] Comment on above: Performed By: #### O BSCRN #### [facility] [address] [place] [address] Dr. Rosangela Smyth EGFR-NON AF SOMALI =60 Normal >=60 [facility] Comment on above: Performed By: #### O BSCRN #### [facility] [address] [address] [address] Rosangela Smyth Glucose [Mass/Vol] 91 mg/dL Normal 74-106 [facility] Comment on above: Performed By: #### O BSCRN #### [facility] [address] [address] [address] Rosangela Smyth Potassium [Moles/Vol] 4.1 mmol/L Normal 3.5-5.1 [facility] Comment on above: Performed By: #### O BSCRN #### [facility] [address] [address] [address] Rosangela Smyth Sodium [Moles/Vol] 139 mmol/L Normal 136-145 [facility] Comment on above: Performed By: #### O BSCRN #### [facility] [address] [address] [address] Rosangela Smyth Urea nitrogen [Mass/Vol] 11.0 mg/dL Normal 7.0-18.0 [facility] Comment on above: Performed By: #### O BSCRN #### [facility] [address] [address] [address] Rosangela Smyth Urea nitrogen/Creatinine [Mass ratio] 11.6 mg/mg Normal [facility] Comment on above: Performed By: #### O BSCRN #### [facility] [address] [address] [address] Rosangela Smyth CBC AUTO DIFFon 05-04-2022 BASO # 0.0 103/ul Normal 0.0-0.1 [facility] Comment on above: Performed By: #### L IPID, CMP #### [facility] [address] [place] [address] Dr. Rosangela Smyth Basophils/100 WBC (Bld) 0.4 % Normal 0.2-2.0 [facility] Comment on above: Performed By: #### L IPID, CMP #### [facility] [address] [place] [address] Dr. Rosangela Smyth EO # 0.4 103/ul Normal 0.0-0.7 [facility] Comment on above: Performed By: #### L IPID, CMP #### [facility] [address] [place] [address] Dr. Rosangela Smyth Eosinophils/100 WBC (Bld) 6.6 % Normal 0.9-7.0 [facility] Comment on above: Performed By: #### L IPID, CMP #### [facility] [address] [place] [address] Dr. Rosangela Smyth Erythrocyte distribution width (RBC) [Ratio] 19.3 % Critically high 11.0-15.0 [facility] Comment on above: Performed By: #### L IPID, CMP #### [facility] [address] [place] [address] Dr. Rosangela Smyth Hematocrit (Bld) [Volume fraction] 29.8 % Critically low 36.0-48.0 [facility] Comment on above: Performed By: #### L IPID, CMP #### [facility] [address] [place] [address] Dr. Rosangela Smyth Hemoglobin (Bld) [Mass/Vol] 9.3 g/dL Critically low 12.0-16.0 [facility] Comment on above: Performed By: #### L IPID, CMP #### [facility] [address] [place] [address] Dr. Rosangela Smyth IG # 0.01 10e3/ul Normal 0.00-0.03 [facility] Comment on above: Performed By: #### L IPID, CMP #### [facility] [address] [place] [address] Dr. Rosangela Smyth IG % 0.2 % Normal 0.0-0.5 [facility] Comment on above: Performed By: #### L IPID, CMP #### [facility] [address] [place] [address] Dr. Rosangela Smyth LYMPH # 1.3 103/ul Normal 1.2-3.8 [facility] Comment on above: Performed By: #### L IPID, CMP #### [facility] [address] [place] [address] Dr. Rosangela Smyth Lymphocytes/100 WBC (Bld) 23.5 % Normal 20.5-60.0 [facility] Comment on above: Performed By: #### L IPID, CMP #### [facility] [address] [place] [address] Dr. Rosangela Smyth MANUAL DIFF REQ NO Normal [facility] Comment on above: Performed By: #### L IPID, CMP #### [facility] [address] [place] [address] Dr. Rosangela Smyth MCH (RBC) [Entitic mass] 29.3 pg Normal 26.7-34.0 [facility] Comment on above: Performed By: #### L IPID, CMP #### [facility] [address] [place] [address] Dr. Rosangela Smyth MCHC (RBC) [Mass/Vol] 31.2 g/dL Normal 29.9-35.2 [facility] Comment on above: Performed By: #### L IPID, CMP #### [facility] [address] [place] [address] Dr. Rosangela Smyth MCV (RBC) [Entitic vol] 94.0 fL Normal 81.0-99.0 [facility] Comment on above: Performed By: #### L IPID, CMP #### [facility] [address] [place] [address] Dr. Rosangela Smyth MONO # 0.4 103/ul Normal 0.3-0.8 [facility] Comment on above: Performed By: #### L IPID, CMP #### [facility] [address] [place] [address] Dr. Rosangela Smyth Monocytes/100 WBC (Bld) 6.6 % Normal 1.7-12.0 [facility] Comment on above: Performed By: #### L IPID, CMP #### [facility] [address] [place] [address] Dr. Rosangela Smyth NEUT # 3.5 103/ul Normal 1.4-6.5 [facility] Comment on above: Performed By: #### L IPID, CMP #### [facility] [address] [address] [address] Rosangela Smyth Neutrophils/100 WBC (Bld) 62.7 % Normal 43.0-75.0 [facility] Comment on above: Performed By: #### L IPID, CMP #### [facility] [address] [address] [address] Rosangela Smyth Platelet mean volume (Bld) [Entitic vol] 8.2 fL Critically low 9.5-13.5 [facility] Comment on above: Performed By: #### L IPID, CMP #### [facility] [address] [address] [address] Rosangela Smyth PLT 337 103/ul Normal 150-450 [facility] Comment on above: Performed By: #### L IPID, CMP #### [facility] [address] [place] [address] Dr. Rosangela Smyth RBC 3.17 106/ul Critically low 4.20-5.40 [facility] Comment on above: Performed By: #### L IPID, CMP #### [facility] [address] [address] [address] Rosangela Smyth WBC 5.6 103/ul Normal 4.0-11.0 [facility] Comment on above: Performed By: #### L IPID, CMP #### [facility] [address] [place] [address] Dr. Rosangela Smyth TSHon 05-04-2022 TSH 1.227 uIU/mL Normal 0.358-3.740 [facility] Comment on above: Performed By: #### L IPID, CMP #### [facility] [address] [address] [address] Rosangela Smyth GLYCOHEMOGLOBIN A1Con 2021 ADA RECOMMENDATION SEE BELOW Normal [facility] Comment on above: Result Comment: ADA RECOMMENDED LIMIT 4.0 - 6.0 ADA THERAPEUTIC TARGET < 7.0 ACTION SUGGESTED > 7.0 Performed By: #### L IPID, CMP #### [facility] [address] [place] [address] Dr. Rosangela Smyth Glucose [Mass/Vol] 154 mg/dL Normal [facility] Comment on above: Performed By: #### L IPID, CMP #### [facility] [address] [address] [address] Rosangela Smyth HbA1c (Bld) [Mass fraction] 7.0 % Critically high 4.5-6.2 [facility] Comment on above: Performed By: #### L IPID, CMP #### [facility] [address] [address] [address] Rosangela Smyth LIPID PROFILEon 04-03-2022 CHOL-HDL RATIO NORM SEE BELOW Normal [facility] Comment on above: Result Comment: 3.3 - 4.4 LOW RISK 4.4 - 7.1 AVERAGE RISK 7.1 - 11.0 MODERATE RISK >11.0 HIGH RISK Performed By: #### L IPID, CMP #### [facility] [address] [address] [address] Rosangela Smyth Cholesterol [Mass/Vol] 147 mg/dL Normal <=200 [facility] Comment on above: Performed By: #### L IPID, CMP #### [facility] [address] [address] [address] Rosangela Smyth Cholesterol in HDL [Mass/Vol] 64 mg/dL Critically high 40-60 [facility] Comment on above: Performed By: #### L IPID, CMP #### [facility] [address] [address] [address] Rosangela Smyth Cholesterol in LDL [Mass/Vol] 70.8 mg/dL Normal [facility] Comment on above: Performed By: #### L IPID, CMP #### [facility] [address] [address] [address] Rosangela Smyth Cholesterol.total/C holesterol in HDL [Mass ratio] 2.3 {ratio} Normal [facility] Comment on above: Performed By: #### L IPID, CMP #### [facility] [address] [address] [address] Rosangela Smyth HDL NORMAL > or = 60 mg/dl - LO W CARDIOVASCULAR RISK <40 mg/dl - HIGH CARDIOVASCULAR RISK Normal [facility] Comment on above: Performed By: #### L IPID, CMP #### [facility] [address] [address] [address] Rosangela Smyth LDL CALC NORMAL SEE BELOW Normal [facility] Comment on above: Result Comment: <100 mg/dl OPTIMAL 100 - 129 mg/dl NEAR OR ABOVE OPTIMAL 130 - 159 mg/dl BORDERLINE HIGH 160 - 189 mg/dl HIGH >190 mg/dl VERY HIGH Performed By: #### L IPID, CMP #### [facility] [address] [address] [address] Rosangela Smyth Triglyceride [Mass/Vol] 61 mg/dL Normal <=150 [facility] Comment on above: Performed By: #### L IPID, CMP #### [facility] [address] [address] [address] Rosangela Smyth VLDL CALC 12.2 mg/dL Normal [facility] Comment on above: Performed By: #### L IPID, CMP #### [facility] [address] [address] [address] Rosangela Smyth PROF 14(COMP METB)on 022 Albumin [Mass/Vol] 3.7 g/dL Normal 3.4-5.0 [facility] Comment on above: Performed By: #### L IPID, CMP #### [facility] [address] [address] [address] Rosangela Smyth Albumin/Globulin [Mass ratio] 1.1 {ratio} Normal [facility] Comment on above: Performed By: #### L IPID, CMP #### [facility] [address] [address] [address] Rosangela Smyth ALP [Catalytic activity/Vol] 92 U/L Normal 46-116 [facility] Comment on above: Performed By: #### L IPID, CMP #### [facility] [address] [address] [address] Rosangela Smyth ALT [Catalytic activity/Vol] 25 U/L Normal 14-59 [facility] Comment on above: Performed By: #### L IPID, CMP #### [facility] [address] [address] [address] Rosangela Smyth Anion gap [Moles/Vol] 11.8 mmol/L Normal [facility] Comment on above: Performed By: #### L IPID, CMP #### [facility] [address] [address] [address] Rosangela Smyth AST [Catalytic activity/Vol] 11 U/L Critically low 15-37 [facility] Comment on above: Performed By: #### L IPID, CMP #### [facility] [address] [place] [address] Dr. Rosangela Smyth Bilirubin [Mass/Vol] 0.2 mg/dL Normal 0.2-1.0 [facility] Comment on above: Performed By: #### L IPID, CMP #### [facility] [address] [place] [address] Dr. Rosangela Smyth Calcium [Mass/Vol] 10.6 mg/dL Critically high 8.5-10.1 [facility] Comment on above: Performed By: #### L IPID, CMP #### [facility] [address] [place] [address] Dr. Rosangela Smyth Chloride [Moles/Vol] 105 mmol/L Normal 98-107 [facility] Comment on above: Performed By: #### L IPID, CMP #### [facility] [address] [place] [address] Dr. Rosangela Smyth CO2 [Moles/Vol] 25.9 mmol/L Normal 21.0-32.0 [facility] Comment on above: Performed By: #### L IPID, CMP #### [facility] [address] [place] [address] Dr. Rosangela Smyth Creatinine [Mass/Vol] 0.86 mg/dL Normal 0.55-1.02 [facility] Comment on above: Performed By: #### L IPID, CMP #### [facility] [address] [place] [address] Dr. Rosangela Smyth EGFR-AF SOMALI >60 Normal >=60 [facility] Comment on above: Performed By: #### L IPID, CMP #### [facility] [address] [address] [address] Rosangela Smyth EGFR-NON AF SOMALI >60 Normal >=60 [facility] Comment on above: Performed By: #### L IPID, CMP #### [facility] [address] [address] [address] Rosangela Smyth Globulin (S) [Mass/Vol] 3.5 g/dL Normal [facility] Comment on above: Performed By: #### L IPID, CMP #### [facility] [address] [address] [address] Rosangela Smyth Glucose [Mass/Vol] 197 mg/dL Critically high 74-106 [facility] Comment on above: Performed By: #### L IPID, CMP #### [facility] [address] [place] [address] Dr. Rosangela Smyth Potassium [Moles/Vol] 4.7 mmol/L Normal 3.5-5.1 [facility] Comment on above: Performed By: #### L IPID, CMP #### [facility] [address] [place] [address] Dr. Rosangela Smyth Protein [Mass/Vol] 7.2 g/dL Normal 6.4-8.2 [facility] Comment on above: Performed By: #### L IPID, CMP #### [facility] [address] [place] [address] Dr. Rosangela Smyth Sodium [Moles/Vol] 138 mmol/L Normal 136-145 [facility] Comment on above: Performed By: #### L IPID, CMP #### [facility] [address] [address] [address] Rosangela Smyth Urea nitrogen [Mass/Vol] 16.0 mg/dL Normal 7.0-18.0 [facility] Comment on above: Performed By: #### L IPID, CMP #### [facility] [address] [place] [address] Dr. Rosangela Smyth Urea nitrogen/Creatinine [Mass ratio] 18.6 mg/mg Normal [facility] Comment on above: Performed By: #### L IPID, CMP #### [facility] [address] [address] [address] Rosangela Smyth GLYCOHEMOGLOBIN A1Con 2021 ADA RECOMMENDATION SEE BELOW Normal [facility] Comment on above: Result Comment: ADA RECOMMENDED LIMIT 4.0 - 6.0 ADA THERAPEUTIC TARGET < 7.0 ACTION SUGGESTED > 7.0 Performed By: #### L IPID, CMP #### [facility] [address] [address] [address] Rosangela Smyth Glucose [Mass/Vol] 134 mg/dL Normal [facility] Comment on above: Performed By: #### L IPID, CMP #### [facility] [address] [address] [address] Rosangela Smyth HbA1c (Bld) [Mass fraction] 6.3 % Critically high 4.5-6.2 [facility] Comment on above: Performed By: #### L IPID, CMP #### [facility] [address] [address] [address] Rosangela Smyth LIPID PROFILEon 01-31-2022 CHOL-HDL RATIO NORM SEE BELOW Normal [facility] Comment on above: Result Comment: 3.3 - 4.4 LOW RISK 4.4 - 7.1 AVERAGE RISK 7.1 - 11.0 MODERATE RISK >11.0 HIGH RISK Performed By: #### L ACT #### [facility] [address] [address] [address] Rosangela Smyth Cholesterol [Mass/Vol] 134 mg/dL Normal <=200 [facility] Comment on above: Performed By: #### L ACT #### [facility] [address] [address] [address] Rosangela Smyth Cholesterol in HDL [Mass/Vol] 68 mg/dL Critically high 40-60 [facility] Comment on above: Performed By: #### L ACT #### [facility] [address] [address] [address] Rosangela Smyth Cholesterol in LDL [Mass/Vol] 55.0 mg/dL Normal [facility] Comment on above: Performed By: #### L ACT #### [facility] [address] [address] [address] Rosangela Smyth Cholesterol.total/C holesterol in HDL [Mass ratio] 2.0 {ratio} Normal [facility] Comment on above: Performed By: #### L ACT #### [facility] [address] [address] [address] Rosangela Smyth HDL NORMAL > or = 60 mg/dl - LO W CARDIOVASCULAR RISK <40 mg/dl - HIGH CARDIOVASCULAR RISK Normal [facility] Comment on above: Performed By: #### L ACT #### [facility] [address] [address] [address] Rosangela Smyth LDL CALC NORMAL SEE BELOW Normal [facility] Comment on above: Result Comment: <100 mg/dl OPTIMAL 100 - 129 mg/dl NEAR OR ABOVE OPTIMAL 130 - 159 mg/dl BORDERLINE HIGH 160 - 189 mg/dl HIGH >190 mg/dl VERY HIGH Performed By: #### L ACT #### [facility] [address] [address] [address] Rosangela Smyth Triglyceride [Mass/Vol] 55 mg/dL Normal <=150 [facility] Comment on above: Performed By: #### L ACT #### [facility] [address] [address] [address] Rosangela Smyth VLDL CALC 11.0 mg/dL Normal [facility] Comment on above: Performed By: #### L ACT #### [facility] [address] [address] [address] Rosangela Smyth PROF 14(COMP METB)on 022 Albumin [Mass/Vol] 4.0 g/dL Normal 3.4-5.0 [facility] Comment on above: Performed By: #### L ACT #### [facility] [address] [address] [address] Rosangela Smyth Albumin/Globulin [Mass ratio] 1.0 {ratio} Normal [facility] Comment on above: Performed By: #### L ACT #### [facility] [address] [address] [address] Rosangela Smyth ALP [Catalytic activity/Vol] 105 U/L Normal 46-116 [facility] Comment on above: Performed By: #### L ACT #### [facility] [address] [address] [address] Rosangela Smyth ALT [Catalytic activity/Vol] 30 U/L Normal 14-59 [facility] Comment on above: Performed By: #### L ACT #### [facility] [address] [address] [address] Rosangela Smyth Anion gap [Moles/Vol] 10.7 mmol/L Normal [facility] Comment on above: Performed By: #### L ACT #### [facility] [address] [address] [address] Rosangela Smyth AST [Catalytic activity/Vol] 14 U/L Critically low 15-37 [facility] Comment on above: Performed By: #### L ACT #### [facility] [address] [place] [address] Dr. Rosangela Smyth Bilirubin [Mass/Vol] 0.2 mg/dL Normal 0.2-1.0 [facility] Comment on above: Performed By: #### L ACT #### [facility] [address] [address] [address] Rosangela Smyth Calcium [Mass/Vol] 11.1 mg/dL Critically high 8.5-10.1 [facility] Comment on above: Performed By: #### L ACT #### [facility] [address] [address] [address] Rosangela Smyth Chloride [Moles/Vol] 104 mmol/L Normal 98-107 [facility] Comment on above: Performed By: #### L ACT #### [facility] [address] [address] [address] Rosangela Smyth CO2 [Moles/Vol] 26.8 mmol/L Normal 21.0-32.0 [facility] Comment on above: Performed By: #### L ACT #### [facility] [address] [address] [address] Rosangela Smyth Creatinine [Mass/Vol] 0.68 mg/dL Normal 0.55-1.02 [facility] Comment on above: Performed By: #### L ACT #### [facility] [address] [address] [address] Rosangela mSyth EGFR-AF SOMALI >60 Normal >=60 [facility] Comment on above: Performed By: #### L ACT #### [facility] [address] [address] [address] Rosangela Smyth EGFR-NON AF SOMALI >60 Normal >=60 [facility] Comment on above: Performed By: #### L ACT #### [facility] [address] [address] [address] Rosangela Smyth Globulin (S) [Mass/Vol] 4.0 g/dL Normal [facility] Comment on above: Performed By: #### L ACT #### [facility] [address] [place] [address] Dr. Rosangela Smyth Glucose [Mass/Vol] 142 mg/dL Critically high 74-106 [facility] Comment on above: Performed By: #### L ACT #### [facility] [address] [address] [address] Rosangela Smyth Potassium [Moles/Vol] 4.5 mmol/L Normal 3.5-5.1 [facility] Comment on above: Performed By: #### L ACT #### [facility] [address] [place] [address] Dr. Rosangela Smyth Protein [Mass/Vol] 8.0 g/dL Normal 6.4-8.2 [facility] Comment on above: Performed By: #### L ACT #### [facility] [address] [address] [address] Rosangela Smyth Sodium [Moles/Vol] 137 mmol/L Normal 136-145 [facility] Comment on above: Performed By: #### L ACT #### [facility] [address] [address] [address] Rosangela Smyth Urea nitrogen [Mass/Vol] 14.0 mg/dL Normal 7.0-18.0 [facility] Comment on above: Performed By: #### L ACT #### [facility] [address] [address] [address] Rosangela Smyth Urea nitrogen/Creatinine [Mass ratio] 20.6 mg/mg Normal [facility] Comment on above: Performed By: #### L ACT #### [facility] [address] [address] [address] Rosangela Smyth Gamma Glutamyl Transpeptidas anurag 07-23-2021 Gamma Glutamyl Transpeptidase 71 7-64 [employer] Other Ambulatory Clinical Summaryo n 02-26-2021 Ambulatory Clinical Summary {[id number]}CD:[id number] Normal [facility] Ambulatory Clinical Summaryo n 02-07-2021 Ambulatory Clinical Summary {[id number]}CD:[id number] Normal [facility] Ambulatory Clinical Summary {[id number]}CD:[id number] Normal [facility] Formson 02-07-2021 Forms [id number] D:127 Normal [facility] Historical Records Officeon 02-07-2021 Historical Records Office [id number] D:127 Normal [facility] Patient Educationon 02-08-20 Patient Education Urology [...] stimulation). ? For women, using a medical review coordinator to prevent urine leaks. This is a [...] after experiencing incontinence. General instructions ? Take [id number]-[id number]-[id number] and prescription medicines only as (more content not included)... Normal [facility] Urology Office/Clinic Noteon 02-07-2021 Urology Office/Clinic [...] Will order Local anesthesia. ABX sent to [facility] in [place]. I have reviewed the previous health record information and history for this pt. from Dr. Cote. Follow-up With When Contact Information KERA VAN, Chicho Beaulieu, URL [address] [place] [address] [place] [address]- [phone] Additional Instructions: Patient Education Urinary Incontinence I, [...] 10:55:00) Nitrite (more content not included)... Normal [facility] Comment on above: Result Comment: Elec tronically Signed By: Chicho COTE MD\.br\Date and Time Signed: 02/07/21 11:47 EDT\.br\Electronically Co-Signed By: Vanesa Pruitt MA\.br\Date and Time Co-Signed: 02/07/21 11:[address] NECK SOFT TISSUE WO IVCON on 01-29-2021 [facility] Physician Referralon 020 Physician Referral [id number] D:127 Normal [facility] Vital Signs Date Time Vital Sign Value Performing Clinician Facility 04-18-2024 13:41-0400 Body height 165.1 cm Beto Vivar MD Work Phone: [facility] 04-18-2024 13:41-0400 Body mass index (BMI) [Ratio] 18.31 kg/m2 Beto Vivar MD Work Phone: [facility] 04-18-2024 13:41-0400 Body temperature 97.59 [degF] Beto Vivar MD Work Phone: [facility] 04-18-2024 13:41-0400 Body weight 49.9 kg Beto Vivar MD Work Phone: [facility] 04-18-2024 13:41-0400 Diastolic blood pressure 77 mm[Hg] Beto Vivar MD Work Phone: [facility] 04-18-2024 13:41-0400 Heart rate 103 /min Beto Vivar MD Work Phone: [facility] 04-18-2024 13:41-0400 Respiratory rate 16 /min Beto Vivar MD Work Phone: [facility] 04-18-2024 13:41-0400 SaO2% (BldA) [Mass fraction] 99 % Beto Vivar MD Work Phone: [facility] 04-18-2024 13:41-0400 Systolic blood pressure 160 mm[Hg] Beto Vivar MD Work Phone: [facility] 04-14-2024 09:38-0400 Body temperature 97.7 [degF] Chair Bledsoe Work Phone: [facility] 04-14-2024 09:38-0400 Diastolic blood pressure 83 mm[Hg] Chair Bledsoe Work Phone: [facility] 04-14-2024 09:38-0400 Heart rate 90 /min Chair Bledsoe Work Phone: [facility] 04-14-2024 09:38-0400 Respiratory rate 18 /min Chair Bledsoe Work Phone: [facility] 04-14-2024 09:38-0400 SaO2% (BldA) [Mass fraction] 100 % Chair Bledsoe Work Phone: [facility] 04-14-2024 09:38-0400 Systolic blood pressure 156 mm[Hg] Chair Bledsoe Work Phone: [facility] 04-14-2024 08:38-0400 Body height 165.1 cm [employer] INSTRUCTIONAL SPECIALIST.TRAFFIC EXPERT Work Phone: [facility] 04-14-2024 08:38-0400 Body mass index (BMI) [Ratio] 19.22 kg/m2 Lillie [facility] [employer] INSTRUCTIONAL SPECIALIST.TRAFFIC EXPERT Work Phone: [facility] 04-14-2024 08:38-0400 Body temperature 97.39 [degF] Siva [employer] INSTRUCTIONAL SPECIALIST.TRAFFIC EXPERT Work Phone: [facility] 04-14-2024 08:38-0400 Body weight 52.4 kg Lillie Bundridge INSTRUCTIONAL SPECIALIST.TRAFFIC EXPERT Work Phone: [facility] 04-14-2024 08:38-0400 Diastolic blood pressure 79 mm[Hg] Lillie Bundridge INSTRUCTIONAL SPECIALIST.TRAFFIC EXPERT Work Phone: [facility] 04-14-2024 08:38-0400 Heart rate 96 /min Lillie Bundridge INSTRUCTIONAL SPECIALIST.TRAFFIC EXPERT Work Phone: [facility] 04-14-2024 08:38-0400 Respiratory rate 16 /min Lillie Bundridge INSTRUCTIONAL SPECIALIST.TRAFFIC EXPERT Work Phone: [facility] 04-14-2024 08:38-0400 SaO2% (BldA) [Mass fraction] 100 % Lillie Bundridge INSTRUCTIONAL SPECIALIST.TRAFFIC EXPERT Work Phone: [facility] 04-14-2024 08:38-0400 Systolic blood pressure 149 mm[Hg] Lillie Bundridge INSTRUCTIONAL SPECIALIST.TRAFFIC EXPERT Work Phone: [facility] 04-07-2024 13:59-0400 Body temperature 98.4 [degF] Chair Bledsoe Work Phone: [facility] 04-07-2024 13:59-0400 Diastolic blood pressure 92 mm[Hg] Chair Bledsoe Work Phone: [facility] 04-07-2024 13:59-0400 Heart rate 85 /min Chair Bledsoe Work Phone: [facility] 04-07-2024 13:59-0400 Respiratory rate 16 /min Chair Bledsoe Work Phone: [facility] 04-07-2024 13:59-0400 SaO2% (BldA) [Mass fraction] 100 % Chair Bledsoe Work Phone: [facility] 04-07-2024 13:59-0400 Systolic blood pressure 161 mm[Hg] Chair Rebekah Work Phone: [facility] 04-06-2024 15:12-0400 Body temperature 97.2 [degF] Ma Sand Work Phone: [facility] 04-06-2024 15:12-0400 Diastolic blood pressure 73 mm[Hg] Ma Sand Work Phone: [facility] 04-06-2024 15:12-0400 Heart rate 97 /min Ma Sand Work Phone: [facility] 04-06-2024 15:12-0400 Respiratory rate 20 /min Ma Sand Work Phone: [facility] 04-06-2024 15:12-0400 SaO2% (BldA) [Mass fraction] 100 % Ma Sand Work Phone: [facility] 04-06-2024 15:12-0400 Systolic blood pressure 169 mm[Hg] Javier Sand Work Phone: [facility] 03-23-2024 15:31-0400 Body mass index (BMI) [Ratio] 19.11 kg/m2 Beto Vivar MD Work Phone: [facility] 03-23-2024 15:31-0400 Body temperature 97.81 [degF] Beto Vivar MD Work Phone: [facility] 03-23-2024 15:31-0400 Body weight 52.1 kg Beto Vivar MD Work Phone: [facility] 03-23-2024 15:31-0400 Diastolic blood pressure 84 mm[Hg] Beto Vivar MD Work Phone: [facility] 03-23-2024 15:31-0400 Heart rate 79 /min Beto Vivar MD Work Phone: [facility] 03-23-2024 15:31-0400 Respiratory rate 16 /min Beto Vivar MD Work Phone: [facility] 03-23-2024 15:31-0400 SaO2% (BldA) [Mass fraction] 100 % Beto Vivar MD Work Phone: [facility] 03-23-2024 15:31-0400 Systolic blood pressure 172 mm[Hg] Beto Vivar MD Work Phone: [facility] 05-22-2022 11:23-0400 Body height 165.1 cm Ignacio Sam MD Work Phone: [facility] 05-22-2022 11:23-0400 Body temperature 97.59 [degF] Ignacio Sam MD Work Phone: [facility] 05-22-2022 11:23-0400 Body weight 71.22 kg Ignacio Sam MD Work Phone: [facility] 05-22-2022 11:23-0400 Diastolic blood pressure 80 mm[Hg] Ignacio Sam MD Work Phone: [facility] 05-22-2022 11:23-0400 Heart rate 95 /min Ignacio Sam MD Work Phone: [facility] 05-22-2022 11:23-0400 Respiratory rate 16 /min Ignacio Sam MD Work Phone: [facility] 05-22-2022 11:23-0400 SaO2% (BldA) [Mass fraction] 100 % Ignacio Sam MD Work Phone: [facility] 05-22-2022 11:23-0400 Systolic blood pressure 145 mm[Hg] Ignacio Sam MD Work Phone: [facility] 07-23-2021 11:45-0500 Body height 165.1 cm Neo Calh[employer] Other [employer] Other 07-23-2021 11:45-0500 Body mass index (BMI) [Ratio] 24.29 kg/m2 Neo Calhoun Other [employer] Other 07-23-2021 11:45-0500 Body weight 66.23 kg Neo Calhoun Other [employer] Other 06-02-2021 15:40-0400 Body height 165.1 cm Brynn [employer] Other [employer] Other 06-02-2021 15:40-0400 Body mass index (BMI) [Ratio] 24.83 kg/m2 [employer] Other [employer] Other 06-02-2021 15:40-0400 Body temperature 96.9 [degF] [employer] Other [employer] Other 06-02-2021 15:40-0400 Body weight 67.68 kg [employer] Other [employer] Other 06-02-2021 15:40-0400 Diastolic blood pressure 80 mm[Hg] [employer] Other [employer] Other 06-02-2021 15:40-0400 Respiratory rate 18 /min [employer] Other [employer] Other 06-02-2021 15:40-0400 SaO2% (BldA) [Mass fraction] 99 % [employer] Other [employer] Other 06-02-2021 15:40-0400 Systolic blood pressure 136 mm[Hg] [employer] Other [employer] Other Encounters Encounter Date Encounter Type Care Provider Facility Start: 05-17-2024 End: 05-19-2024 Patient encounter procedure Jorge Roy DO Work Phone: Radiation Oncology Start: 05-17-2024 End: 05-19-2024 Radiation Oncology Note Jorge Chakraborty Phone: Radiation Oncology Comment on above: Completion Note Start: 05-17-2024 End: 05-19-2024 Telephone encounter Lise Connolly RN Work Phone: Hematology/Oncology Comment on above: Care Coordination (P ain Request) Start: 05-16-2024 End: 05-16-2024 Telephone encounter Lillie Richter APRN.TRAFFIC EXPERT Work Phone: Palliative Medicine Comment on above: Symptom Management Start: 05-15-2024 End: 05-15-2024 Telephone encounter Lise Connolly RN Work Phone: Hematology/Oncology Comment on above: Care Coordination (H ospice Referral) Start: 05-12-2024 End: 05-15-2024 Telephone encounter Lise Connolly RN Work Phone: Hematology/Oncology Comment on above: Care Coordination (D ischarge Follow Up Call) Start: 05-10-2024 End: 05-10-2024 Evaluation and management of inpatient KOSTAS JARVIS FURNG Facility:[facility] Start: 05-10-2024 End: 05-10-2024 ambulatory [facility] Facility:[facility] Start: 05-09-2024 End: 05-09-2024 Evaluation and management of inpatient KOSTAS JARVIS FURLONG Facility:[facility] Start: 05-08-2024 Evaluation and management of inpatient HAMMAD MAURICIO Facility:[facility] Start: 05-08-2024 End: 05-08-2024 Evaluation and management of inpatient HAMMAD MAURICIO Facility:[facility] Start: 05-07-2024 End: 05-07-2024 Evaluation and management of inpatient JORGE ROY Facility:[facility] Start: 05-06-2024 End: 05-09-2024 Refill Lillie Richter APRN.TRAFFIC EXPERT Work Phone: Palliative Medicine Comment on above: Med Change Request Start: 05-06-2024 End: 05-06-2024 Evaluation and management of inpatient JORGE ROY Facility:[facility] Start: 05-05-2024 End: 05-05-2024 Evaluation and management of inpatient JORGE ROY Facility:[facility] Start: 05-04-2024 End: 05-10-2024 Patient encounter procedure Jorge Roy DO Work Phone: Radiation Oncology Start: 05-04-2024 End: 05-10-2024 Radiation Oncology Note Jorge Roy DO Work Phone: Radiation Oncology Comment on above: Simulation Note Start: 05-04-2024 End: 05-04-2024 Evaluation and management of inpatient JORGE ROY Facility:[facility] Start: 05-04-2024 ambulatory KOSTAS MULLINSLISA Facility:[facility] Start: 05-03-2024 End: 05-05-2024 Orders Only Jorge Roy DO Work Phone: Radiation Oncology Comment on above: 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) Start: 05-03-2024 End: 05-12-2024 [facility] Start: 05-02-2024 End: 05-16-2024 Telephone encounter iLse Connolly RN Work Phone: Hematology/Oncology Comment on above: Care Coordination (H ospital Admission) Start: 05-01-2024 End: 05-02-2024 Evaluation and management of inpatient ILA [facility] Start: 05-01-2024 [facility] Start: 04-28-2024 End: 04-28-2024 Refill Lillie Richter APRN.TRAFFIC EXPERT Work Phone: Palliative Medicine Comment on above: Refill Request Start: 04-27-2024 End: 05-01-2024 Telephone encounter Regina Jarvis PA-C Work Phone: Hematology/Oncology Comment on above: Lab Orders Start: 04-26-2024 End: 04-26-2024 Telephone encounter April Frye RN [employer] Comment on above: Care Coordination Care Coordination (P D-L1 Question) Returning Patient's Call Start: 04-24-2024 End: 04-27-2024 Telephone encounter Dinh Andino RN [facility] Radiol ogy Procedure Comment on above: Appointment Refill Request Insurance Authorizat ion (Butran 20 mcg patch ) Collections Clerk - O ther (Missed Appointment) Start: 04-24-2024 End: 04-24-2024 ambulatory BETO VIVAR [facility] Start: 04-21-2024 Telephone encounter April Frye RN [facility] Palliative Medicine Comment on above: Care Coordination (P ain ) Radiology Pre Proced ure Instructions Care Coordination (B 12) Care Coordination (A ntiemetic) Start: 04-20-2024 Telephone encounter Lise pozo RN Work Phone: Hematology/Oncology Comment on above: Care Coordination (A ppointment Question) Radiology Pre Proced ure Instructions Start: 04-19-2024 Telephone encounter Lillie iRchter APRN.TRAFFIC EXPERT Work Phone: Palliative Medicine Comment on above: Patient Update Start: 04-18-2024 Telephone encounter Beto hurley MD Work Phone: Cancer [facility] Comment on above: Additional testing Port Placement Start: 04-18-2024 End: 04-18-2024 Patient encounter procedure Beto Vivar MD Work Phone: Hematology/Oncology Start: 04-18-2024 End: 04-19-2024 ambulatory Chair 21 Bledsoe Work Phone: Hematology/Oncology Comment on above: Hypercalcemia of mal ignancy (Primary Dx); 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); Hypercalcemia of malignancy; Iron deficiency anemia due to chronic blood loss; B12 deficiency; Acquired hypothyroidism; Cancer related pain Start: 04-17-2024 Telephone encounter Lillie Richter APRN.TRAFFIC EXPERT Work Phone: Palliative Medicine Comment on above: Care Coordination (S tomach pain ) Start: 04-15-2024 Telephone encounter Faby martinez MD Work Phone: Hematology/Oncology Comment on above: Medication Problem Start: 04-14-2024 End: 04-14-2024 Patient encounter procedure Lillie Richter APRN.TRAFFIC EXPERT Work Phone: Palliative Medicine Comment on above: [...] chronic blood loss Start: 04-12-2024 Telephone encounter Marley Broderick Hematology/Oncology Start: 04-10-2024 Telephone encounter Lise pozo RN Work Phone: Hematology/Oncology Comment on above: Care Coordination (T horacic Surgery Consult) Start: 04-10-2024 ambulatory Dajuan Whaley Facility:[facility] Start: 04-07-2024 Telephone encounter Rae Manzo RN [...] 04-06-2024 Nursing evaluation of patient and report Javier Ybarra Work Phone: Hematology/Oncology Comment on above: 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) Start: 04-06-2024 End: 04-06-2024 ambulatory [facility] Facility:[facility] Start: 04-06-2024 End: 04-06-2024 ambulatory [facility] Facility:[facility] Start: 04-06-2024 End: 04-06-2024 Subsequent hospital visit by physician Arrival Time Radiology Work Phone: Radiology Pet CT Comment on above: 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] Start: 04-04-2024 End: 04-04-2024 ambulatory BETO VIVAR [facility] Start: 04-03-2024 End: 04-03-2024 ambulatory Erendira [...] blood loss Start: 03-28-2024 End: 03-28-2024 ambulatory [facility] Start: 03-28-2024 Telephone encounter Marley Broderick Hematology/Oncology Comment on above: Pain Start: 03-27-2024 End: 04-28-2024 Telephone encounter Jeanne Mccormick MD, PhD Work Phone: Thoracic Clinic Comment on above: External Referrals/r esources Start: 03-24-2024 Telephone encounter Marley Broderick Hematology/Oncology Comment on above: Pain Start: 03-23-2024 End: 03-23-2024 Nursing evaluation of patient and report Javier Ybarra Work Phone: Hematology/Oncology Comment on above: [...] chronic blood loss Start: 03-23-2024 Telephone encounter Lise pozo RN Work Phone: Hematology/Oncology Comment on above: Care Coordination (H ER2 FISH Analysis) Start: 03-22-2024 End: 03-22-2024 ambulatory [facility] Start: 03-17-2024 Chart abstracting Beto kennedy MD Work Phone: Hematology/Oncology Start: 03-07-2024 End: 03-07-2024 ambulatory [facility] Start: 03-03-2024 End: 03-03-2024 Evaluation and management of inpatient [facility] Start: 03-02-2024 End: 03-03-2024 Evaluation and management of inpatient [facility] Start: 02-24-2024 End: 02-24-2024 ambulatory [facility] Start: 02-21-2024 End: 02-21-2024 ambulatory [facility] Start: 02-18-2024 End: 02-18-2024 ambulatory [facility] Start: 02-16-[address] [facility] Start: 02-02-2024 End: 02-02-2024 ambulatory [facility] Start: 01-21-2024 End: 01-21-2024 ambulatory [facility] Start: 01-21-2024 End: 01-21-2024 ambulatory [facility] Start: 11-17-2023 End: 11-17-2023 Office outpatient visit 15 minutes Dk Denise [facility] INSTRUCTIONAL SPECIALIST-TRAFFIC EXPERT Work Phone: [facility] Physicians Internal Medicine - Family Medicine Comment on above: Diarrhea of presumed infectious origin (Primary Dx); Weakness; Type 2 diabetes mellitus without complication, without long-term current use of insulin ([facility]); Hyperparathyroidism ([facility]) Start: 11-17-2023 End: 11-17-2023 ambulatory [facility] Start: 11-11-2023 Telephone encounter Con Gleason [facility] Physicians Internal Medicine - Family Medicine Start: 11-05-2023 Telephone encounter Con Gleason [facility] Internal Medicine - Family Medicine Start: 10-25-2023 Refill [facility] Internal Medicine - Family Medicine Comment on above: Type 2 diabetes noe itus without complication, without long- term current use of insulin ([facility]) Start: 10-24-2023 Refill Kostas navsa DO Work Phone: [facility] Phys[facility] Internal Medicine - Family Medicine Comment on above: Type 2 diabetes noe itus without complication, without long- term current use of insulin ([facility]) Start: 09-03-2023 Refill Kostas Mejía ng DO Work Phone: [facility] Physicians Internal Medicine - Family Medicine Comment on above: Acquired hypothyroid ism Start: 08-23-2023 End: 08-23-2023 ambulatory [facility] Start: 08-23-2023 End: 08-23-2023 ambulatory [facility] Start: 01-17-2023 End: 01-17-[address] KOSTAS STEWARD Facility:[facility] Start: 12-21-2022 End: 12-22-[address] KOSTAS STEWARD Facility:[facility] Start: 12-16-[address] DHRUV Ochoai ty:[facility] Start: 11-27-2022 End: 11-27-[address] KOSTAS STEWARD Facility:[facility] Start: 09-23-2022 End: 09-25-2022 Evaluation and management of inpatient DR KOSTAS STEWARD Facility:[facility] Start: 09-22-2022 End: 09-23-[address] OKSTAS STEWARD Facility:[facility] Start: 09-12-2022 End: 09-12-2022 ambulatory ATTILA JULIO . 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 Facility:[facility] Start: 07-03-2022 Telephone encounter Ignacio hardwick MD Work Phone: [facility] Comment on above: Patient Update Start: 06-04-2022 Telephone encounter Ignacio hardwick MD Work Phone: Cancer [facility] Comment on above: Appointment Cancelle d Start: [...] 04-23-2022 End: 04-23-2022 ambulatory Neo Calhoun Other [employer] Other Start: 04-23-2022 Telephone encounter Neo powell [facility] Start: 04-03-2022 End: 04-04-[address] KOSTAS STEWARD Facility:[facility] Start: 01-31-2022 End: 02-01-[address] KOSTAS STEWARD Facility:[facility] Start: 01-02-2022 End: 01-02-2022 ambulatory Neo Calhoun Other [employer] Other Start: 01-02-2022 Telephone encounter Neo powell [facility] Start: 08-18-2021 End: 08-18-2021 ambulatory Neo Calhoun Other [employer] Other Start: 08-18-2021 Telephone encounter Neo powell [facility] Start: 07-23-2021 End: 07-23-2021 ambulatory Neo Calhoun Other [employer] Other Start: 07-23-2021 Office outpatient vi sit 25 minutes Neo Calhoun [facility] Start: 06-02-2021 Office outpatient ne w 45 minutes Brynn Holliday [facility] Start: 01-29-2021 End: 01-29-2021 Subsequent hospital visit by physician [facility]) Radiology Comment on above: Disorder of airway [ J98.9] Procedures Date Procedure Procedure Detail Performing Clinician Start: 05-10-2024 Antibody screen KOSTAS STEWARD Comment on above: Order Comment: Speci men Type: BLOOD SPECIMENOrdering Facility: [facility] Address: [address] [place] [address] Performed By: #### T SCR ####CC MAIN BLOOD BANKCLIA [id number] [address] Start: 05-07-2024 Antibody screen KOSTAS STEWARD Comment on above: Order Comment: Speci men Type: BLOOD SPECIMENOrdering Facility: [facility] Address: [address] [place] [address] Performed By: #### T SCR ####CC MAIN BLOOD BANKCLIA [id number] [address] Start: 05-03-2024 Antibody screen KOSTAS STEWARD Comment on above: Order Comment: Speci men Type: BLOOD SPECIMENOrdering Facility: [facility] Address: [address] [place] [address] Performed By: #### T SCR ####CC MAIN BLOOD BANKCLIA [id number] [address] Start: 04-14-2024 Drug tst prsmv instr mnt chem analyzers pr date Lillie Richter APRN.TRAFFIC EXPERT Work Phone: Start: 04-06-2024 Ct abdomen w/contras t material Beto Vivar MD Work Phone: Start: 04-06-2024 Ct thorax w/contrast material Beto Vivar MD Work Phone: Start: 04-06-[address] atten uation skull base mid-thigh Beto Vivar MD Work Phone: Start: 04-06-2024 Gluc bld gluc mntr d ev cleared fda spec home use [facility] Provider Start: 03-02-2024 Colonoscopy Beto kennedy MD Work [...] Work Phone: Start: 04-06-2018 Colonoscopy Kostas echavarria [employer] Work Phone: Start: 06-04-2016 Adult depression scr eening assessment Ignacio Sam MD Work Phone: Plan of Treatment Date Care Activity Detail Author Start: 04-06-2028 Screening for malign ant neoplasm of colon Colonoscopy [facility] Start: 05-10-2027 Diabetes Screening Diabetes Screenin [facility] Start: 05-09-2027 Diabetes Screening Diabetes Screenin [facility] Start: 05-03-2027 Diabetes Screening Diabetes Screenin g [facility] Start: 04-18-2027 Diabetes Screening Diabetes Screenin g [facility] Start: 03-23-2027 Diabetes Screening Diabetes Screenin g [facility] Start: 01-20-2027 Diabetes Screening Diabetes Screenin g [facility] Start: 04-30-2025 Screening for malign ant neoplasm of breast Mammogram Screening [facility] Start: 03-02-2025 Screening for malign ant neoplasm of colon [facility] Start: 08-23-2024 Adult BMI Screening Adult BMI Screen ing [facility] Start: 08-23-2024 Depression Screening Depression Scre ening [facility] Start: 08-23-2024 Tobacco Screening Tobacco Screening [facility] Start: 08-23-2024 Urine screening for protein Urine Microalbumin [facility] [address] [facility] Start: 08-12-2024 Screening for malign ant neoplasm of breast [facility] Start: 06-05-2024 End: 06-05-2024 ambulatory Hematology/Oncology Comment on above: HOSP DC PLEASE RS PALL ME D APPT Start: 05-31-2024 End: 05-31-2024 Patient encounter procedure 05/31/2024 10:00 AM EDT Office Visit Palliative Medicine [address] [place] [address] Lillie Richter, INSTRUCTIONAL SPECIALIST.TRAFFIC EXPERT [address] [place] [address] 4 week follow up Palliative Medicine Comment on above: 4 week follow up Start: 05-25-2024 End: 05-25-2024 ambulatory 05/25/2024 11:45 AM EDT Visit (SP) Office Hematology/Oncology [address] [place] [address] Beto Vivar MD [address] [place] [address] mailbox full but PLEASE RS PALL MED APPT too Hematology/Oncology Comment on above: mailbox full but PLE ASE RS PALL MED APPT too Start: 05-12-2024 End: 05-12-2024 Patient encounter procedure 05/12/2024 9:30 AM EDT Office Visit Palliative Medicine [address] [place] [address] Lillie Richter, INSTRUCTIONAL SPECIALIST.TRAFFIC EXPERT [address] [place] [address] 4 week follow up Palliative Medicine Comment on above: 4 week follow up Start: 05-10-2024 End: 05-10-2024 Patient encounter procedure Radiation Oncology Comment on above: G70-33.. 5 FX STOMAC H TB 4 G70-33.. 5 FX STOMAC H *approved/append/ Start: 05-09-2024 End: 05-09-2024 Patient encounter procedure 05/09/2024 1:20 PM EDT Appointment Radiation Oncology [address] [place] [address] G70-33.. 5 FX STOMACH Radiation Oncology Comment on above: G70-33.. 5 FX STOMAC H Start: 05-07-2024 Influenza vaccination Influenza Vacc ine (#1) [facility] Start: 05-07-2024 End: 05-07-2024 Patient encounter procedure 05/07/2024 9:20 AM EDT Appointment Radiation Oncology [address] [place] [address] [place] [address] [place] [address] G70-33..5FX STOMACH Radiation Oncology Comment on above: G70-33..5FX STOMACH Start: 05-06-2024 End: 05-06-2024 Patient encounter procedure 05/06/2024 9:40 AM EDT Appointment Radiation Oncology [address] [place] [address] [place] [address] [place] [address] G70-33..5FX STOMACH Radiation Oncology Comment on above: G70-33..5FX STOMACH Start: 05-04-2024 End: 05-04-2024 Follow-up encounter 05/04/2024 11:00 AM EDT [facility] Hematology/Oncology [address] [address] follow up and chemotx FOLFOX + NIVO Hematology/Oncology Comment on above: follow up and chemot x FOLFOX + NIVO Start: 05-04-2024 End: 05-04-2024 Nutrition therapy 05/04/2024 10:00 AM EDT Education Nutrition Therapy [address] [place] [address] [place] [address] phone f/u Nutrition Therapy Comment on above: phone f/u Start: 05-02-2024 End: 08-01-2024 CBC W Auto Differential panel - Blood COMPLETE BLOOD COUNT AND DIFFERENTIAL Lab Routine 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 Comment on above: Expected: 05/02/2024 , Expires: 08/01/2024 Start: 05-02-2024 End: 05-02-2024 Nursing evaluation of patient and report 05/02/2024 8:30 AM EDT Nurse Visit Hematology/Oncology [address] [place] [address] [place] [address] Lise Connolly RN [address] [place] [address] [place] [address] Chemo Ed Hematology/Oncology Comment on above: Chemo Ed Start: 05-02-2024 End: 05-02-2024 Follow-up encounter Hematology/Oncology Comment on above: follow up and chemot x FOLFOX + NIVO follow up and chemot x FOLFOX + NIVO-PORT Start: 05-01-2024 End: 05-01-2024 Nursing evaluation of patient and report 05/01/2024 9:00 AM EDT Nurse Visit Hematology/Oncology [address] [place] [address] [place] [address] Lise Connolly, RN [address] [place] [address] [place] [address] Chemo Ed Hematology/Oncology Comment on above: Chemo Ed Start: 04-28-2024 End: 04-28-2024 Nursing evaluation of patient and report 04/28/2024 9:00 AM EDT Nurse Visit Hematology/Oncology [address] [place] [address] [place] [address] Lise Connolly, BORA [address] [place] [address] [place] [address] Chemo ed for FOLFOX/Nivo Hematology/Oncology Comment on above: Chemo ed for FOLFOX/ Nivo Start: 04-25-2024 End: 04-25-2024 Admission to same day surgery center 04/25/2024 11:30 AM EDT - 04/25/2024 1:00 PM EDT Surgery [facility] Radiology Procedure [address] [place] [address] Alex Masterson MD [address] [place] [address] INSERTION PORT VENOUS ACCESS ADULT [facility] Radiology Procedure Comment on above: INSERTION PORT VENOU S ACCESS ADULT Start: 04-25-2024 End: 04-25-2024 Insj tunneled ctr vad w/subq port age 4 yr/> INSERTION PORT VENOUS ACCESS ADULT Malignant neoplasm of cardia (HCC) 04/25/2024 11:30 AM EDT AV IR Start: 04-25-2024 Subsequent hospital visit by physician 04/25/2024 11:30 AM EDT Hospital Encounter [facility] Radiology Procedure [address] [place] [address] Alex Masterson MD [address] [place] [address] 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] [facility] Radiology Procedure Comment on above: Malignant neoplasm o f cardia (HCC) [C16.0] Start: 04-24-2024 End: 04-24-2024 Nursing evaluation of patient and report 04/24/2024 1:00 PM EDT Nurse Visit Hematology/Oncology [address] [place], [place] [address] [place] [address] Lise Connolly, RN [address] [place] [address] Chemo ed for FOLFOX/Nivo Hematology/Oncology Comment on above: Chemo ed for FOLFOX/ Nivo Start: 04-21-2024 End: 04-21-2024 ambulatory 04/21/2024 1:30 PM EDT Infusion Center Hematology/Oncology [address] [place] [address] IV Fe # 4 B 12 inj Hematology/Oncology Comment on above: IV Fe # 4 B 12 inj Start: 04-21-2024 End: 04-21-2024 Nursing evaluation of patient and report 04/21/2024 10:30 AM EDT Nurse Visit Hematology/Oncology [address] [place] [address] Javier Ybarra Nurse Beltran [address] [address] B12 x monthly needs scheduled for more b-12 injection once [facility] gives follow up for [facility]-phone encounter Hematology/Oncology Comment on above: B12 x monthly nee ds scheduled for more b-12 injection once [facility] gives follow up for BRM-phone encounter Start: 04-18-2024 End: 04-18-2024 Nursing evaluation of patient and report 04/18/2024 2:00 PM EDT Nurse Visit Hematology/Oncology [address] [place] [address] Javier Ybarra Nurse Beltran [address] [place] [address] B12 x monthly needs scheduled for more b-12 injection-monthly Hematology/Oncology Comment on above: B12 x monthly nee ds scheduled for more b-12 injection-monthly Start: 04-18-2024 End: 04-18-2024 ambulatory 04/18/2024 1:45 PM EDT Visit (SP) Office Hematology/Oncology [address] [place] [address] Beto Vivar MD [address] [place] [address] 04/12-This Date/Time Per [facility] Hematology/Oncology Comment on above: 04/12-This Date/Time P er [facility] Start: 04-18-2024 End: 04-18-2024 Patient encounter procedure 04/18/2024 1:30 PM EDT Office Visit [facility] [address] [place] [address] 04/12-This Date/Time Per Mitch [facility] Comment on above: 04/12-This Date/Time P er Mitch Start: 04-14-2024 End: 07-14-2024 PAIN PANEL, UR QUANT [facility] Work Phone: Comment on above: Expected: 04/14/2024 , Expires: 07/14/2024 Start: 04-14-2024 End: 07-14-2024 TOXICOLOGY SCREEN, ROUTINE URINE [facility] Comment on above: Expected: 04/14/2024 , Expires: 07/14/2024 Start: 04-14-2024 End: 04-14-2024 Nutrition therapy 04/14/2024 10:45 AM EDT Education Nutrition Therapy [address] [address] [place] [address] phone f/u Nutrition Therapy Comment on above: phone f/u Start: 04-14-2024 End: 04-14-2024 ambulatory Hematology/Oncology Comment on above: IV Fe 04/12-sent staff brannon chapa to [facility] for 04/14 to let pt know about her b-12 being moved from 04/21 to 04/18 Start: 04-14-2024 End: 04-14-2024 Patient encounter procedure 04/14/2024 8:30 AM EDT Office Visit Palliative Medicine [address] [place] [address] [place] [address] Lillie Richter, INSTRUCTIONAL SPECIALIST.TRAFFIC EXPERT [address] [place] [address] Pall Med appt Ref by Dr Beto Vivar Palliative Medicine Comment on above: Pall Med appt Ref by Dr Beto Vivar Start: 04-07-2024 End: 04-07-2024 ambulatory 04/07/2024 1:30 PM EDT [facility] Hematology/Oncology [address] [place] [address] IV Fe x 4 doeses Hematology/Oncology Comment on above: IV Fe x 4 doeses Start: 04-06-2024 End: 04-06-2024 Patient encounter procedure Radiology Pet CT Comment on above: Pet scan and CT CA w ith contrast CT CA with contrast CCN not approved Start: 04-01-2024 Glaucoma screening Diabetic Op hthalmology Exam [facility] Start: 03-30-2024 End: 03-30-2024 ambulatory Hematology/Oncology Comment on above: IV Fe next available IV Fe next available / 4 doses IV Fe next available / 3 doses per phone encounter Start: 03-23-2024 End: 03-23-2024 ambulatory 03/23/2024 4:00 PM EDT Visit (SP) Office Hematology/Oncology [address] [place] [address] [place] [address] Beto Vivar MD [address] [place] [address] Dx: Gastric Carcinoma Hematology/Oncology Comment on above: Dx: Gastric Carcinom a Start: 03-23-2024 End: 06-22-2024 CIRCULATING TUMOR DNA GENOMIC ANALYSIS FOR SOLID TUMORSRESTRICTED TO ONCOLOGY [facility] Comment on above: Expected: 03/23/2024 , Expires: 06/22/2024 Start: 03-23-2024 End: 06-22-2024 Ferritin [Mass/volume] in Serum or Plasma [facility] Comment on above: Expected: 03/23/2024 , Expires: 06/22/2024 Start: 03-23-2024 End: 06-22-2024 Iron and Iron binding capacity panel - Serum or Plasma [facility] Work Phone: Comment on above: Expected: 03/23/2024 , Expires: 06/22/2024 Start: 03-23-2024 End: 06-22-2024 T4/FTI/T4U [facility] Comment on above: Expected: 03/23/2024 , Expires: 06/22/2024 Start: 03-23-2024 End: 06-22-2024 Thyrotropin [Units/volume] in Serum or Plasma [facility] Comment on above: Expected: 03/23/2024 , Expires: 06/22/2024 Start: 03-15-2024 Diabetic foot examination Diabetic F oot Exam [facility] [address] [facility] Start: 2024 RSV Vaccine (1 - 1-d ose 60+ series) RSV Vaccine (1 - 1-dose 60+ series) [facility] Start: 12-01-2023 End: 12-01-2023 Patient encounter procedure 12/01/2023 4:00 PM EDT Office Visit [facility] Physicians Internal Medicine - Family Medicine [address] [place] [address] Dk Monge, INSTRUCTIONAL SPECIALIST-TRAFFIC EXPERT [address] [facility] [place] [address] [facility] Internal Medicine - Family Medicine Start: 09-06-2023 Behavioral Health Screening Behavioral Health Screening [facility] Start: 05-07-2023 Covid-19 Vaccine ( season) Covid-[address] () [facility] Start: 05-07-2023 Influenza vaccination [facility] Start: 11-11-2022 PNEUMOCOCCAL (2 - PCV) PNEUMOCOCCAL (2 - PCV) [facility] Start: 11-11-2022 Pneumococcal vaccination Pneum ococcal Vaccine (2 - PCV) [facility] Start: 09-06-2022 Depression Assessment Depression Ass essment [facility]. [facility] Start: 06-19-2022 End: 08-19-2022 PROTEIN ELECTROPHORESIS SERUM W/INTERP PROTEIN ELECTROPHORESIS SERUM W/INTERP Lab Routine Anemia, normocytic normochromic Expected: 06/19/2022 (Approximate), Expires: 08/19/2022 [facility] Work Phone: Comment on above: Expected: 06/19/2022 (Approximate), Expires: 08/19/2022 Start: 06-12-2022 End: 08-12-2022 Thyrotropin [Units/volume] in Serum or Plasma TSH BLD Lab Routine Anemia, normocytic normochromic Expected: 06/12/2022 (Approximate), Expires: 08/12/2022 [facility] Work Phone: Comment on above: Expected: 06/12/2022 (Approximate), Expires: 08/12/2022 Start: 06-05-2022 End: 08-05-2022 Comprehensive metabolic 2000 panel - Serum or Plasma COMP METABOLIC PANEL Lab Routine Anemia, normocytic normochromic Expected: 06/05/2022 (Approximate), Expires: 08/05/2022 [facility] Work Phone: Comment on above: Expected: 06/05/2022 (Approximate), Expires: 08/05/2022 Start: 05-26-2022 End: 07-26-2022 CBC W Auto Differential panel - Blood CBC + DIFF Lab Routine Anemia, normocytic normochromic Expected: 05/26/2022, Expires: 07/26/2022 [facility] Work Phone: Comment on above: Expected: 05/26/2022 , Expires: 07/26/2022 Start: 05-26-2022 End: 07-26-2022 Comprehensive metabolic 2000 panel - Serum or Plasma COMP METABOLIC PANEL Lab Routine Anemia, normocytic normochromic Expected: 05/26/2022, Expires: 07/26/2022 [facility] Work Phone: Comment on above: Expected: 05/26/2022 , Expires: 07/26/2022 Start: 05-26-2022 End: 07-26-2022 Ferritin [Mass/volume] in Serum or Plasma FERRITIN BLD Lab Routine Anemia, normocytic normochromic Expected: 05/26/2022, Expires: 07/26/2022 [facility] Work Phone: Comment on above: Expected: 05/26/2022 , Expires: 07/26/2022 Start: 05-26-2022 End: 07-26-2022 Iron and Iron binding capacity panel - Serum or Plasma IRON + TIBC Lab Routine Anemia, normocytic normochromic Expected: 05/26/2022, Expires: 07/26/2022 [facility] Work Phone: Comment on above: Expected: 05/26/2022 , Expires: 07/26/2022 Start: 05-22-2022 End: 07-22-2022 Cobalamin (Vitamin B12) [Mass/volume] in Serum or Plasma [facility] Work Phone: Comment on above: Expected: 05/22/2022 , Expires: 07/22/2022 Start: 05-22-2022 End: 05-22-2023 Ferritin [Mass/volume] in Serum or Plasma [facility] Work Phone: Comment on above: Expected: 05/22/2022 , Expires: 05/22/2023 Start: 05-22-2022 End: 07-22-2022 Folate [Mass/volume] in Serum or Plasma [facility] Work Phone: Comment on above: Expected: 05/22/2022 , Expires: 07/22/2022 Start: 05-22-2022 End: 05-22-2023 Iron and Iron binding capacity panel - Serum or Plasma [facility] Work Phone: Comment on above: Expected: 05/22/2022 , Expires: 05/22/2023 Start: 05-22-2022 End: 07-22-2022 MONOCLONAL PROTEIN, SERUM (BLOOD) [facility] Work Phone: Comment on above: Expected: 05/22/2022 , Expires: 07/22/2022 Start: 05-22-2022 End: 07-22-2022 PROTEIN ELECT RND UR W/INTERP [facility] Work Phone: Comment on above: Expected: 05/22/2022 , Expires: 07/22/2022 Start: 05-07-2022 Influenza vaccination INFLUENZA (#1) [facility] Start: 09-06-2021 DEPRESSION ASSESSMENT DEPRESSION ASS ESSMENT [facility] Start: 06-04-2017 Adult depression screening assessment DEPRESSION SCREENING [facility] Start: 01-09-2014 Administration of varicella zoster vaccine Zoster (Shingles) Vaccine (1 of 2) [facility] Start: 01-09-2014 SHINGRIX VACCINE (1 of 2) FERGUSON GRIX VACCINE (1 of 2) [facility] Start: 01-09-2009 COLOGUARD (FIT-DNA) COLOGUARD (FIT-D NA) [facility] Start: 01-09-[address] [facility] Start: 01-09-2009 COLORECTAL CANCER SCREENING COLORECTAL CANCER SCREENING [facility] Start: 01-09-[address] COLONOGRAPHY [facility] Start: 01-09-2009 DIABETES SCREEN DIABETES SCREEN [facility] Start: 01-09-2009 Diabetes Screening Diabetes Screenin g [facility] Start: 01-09-2009 FECAL OCCULT BLOOD FECAL OCCULT BLOO D [facility] Start: 01-09-2009 Lipid 1996 panel - S elissa or Plasma Lipid Screening [facility] Start: 01-09-2009 Lipid panel Lipid Screening [facility] Start: 01-09-2009 [address] L[address]ID SCREEN [facility] Start: 01-09-2009 Screening for malign ant neoplasm of colon [facility] Start: 01-09-2009 SIGMOIDOSCOPY SIGMOIDOSCOPY [facility] Start: [address] [facility] Start: 01-09-1994 HPV TESTING HPV TESTING [facility] Start: 01-09-1994 Zoledronic acid therapy ALPHA- 1 ANTITRYPS[address] DEFICIENCY SCREENING [facility] Start: 01-09-1985 PAP TESTING PAP TESTING [facility] Start: 01-09-1985 Screening for malign ant neoplasm of cervix [facility] Start: 01-09-1983 DTaP,Tdap and Td Vac cines (1 - Tdap) DTaP,Tdap and Td Vaccines (1 - Tdap) [facility] Start: 01-09-1983 Shingrix Vaccine (1 of 2) Ferguson grix Vaccine (1 of 2) [facility] Start: 01-09-[address] [facility] Start: 01-09-1982 ANNUAL PCP TEAM DAIRY FEED SALES CONSULTANT ALLEN DISEASE VISIT ANNUAL PCP TEAM CHRONIC DISEASE VISIT [facility] Start: 01-09-1982 Depression Screening Depression Scre ening [facility] Start: 01-09-1982 HEPATITIS C SCREENING HEPATITIS C [facility] Start: 01-09-1982 Hepatitis C screening Hepatitis C [facility] Start: 01-09-1982 HIV SCREENING HIV SCREENING [facility] Start: 01-09-1982 HIV screening HIV Screening [facility] Start: 01-09-1970 PNEUMOCOCCAL (1 - PCV) PNEUMOCOCCAL (1 - PCV) [facility] Start: 01-09-1969 Covid-19 Vaccine (#1) Covid-19 Vacci ne (#1) [facility] Start: 1964 COVID-19 VACCINE (#1) COVID-19 VACCI NE (#1) [facility] Start: 1964 HEPATITIS B (1 of 3 - 3-dose series) HEPATITIS B (1 of 3 - 3-dose series) 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) Ordered: 05/05/2024 [facility] Work Phone: Comment on above: Ordered: 05/05/2024 End: 11-16-2024 GI Panel(stool pathogen panel) GI Panel(stool pathogen panel) Lab Routine Diarrhea of presumed infectious origin 1 Occurrences starting 11/17/2023 until 11/16/2024 [place] Work Phone: Comment on above: 1 Occurrences starti ng 11/17/2023 until 11/16/2024 IR PORTOCATH PLACEMENT IR PORTOC ATH PLACEMENT Radiology Routine Ordered: 04/18/2024 [facility] Work Phone: Comment on above: Ordered: 04/18/2024 IR PORTOCATH PLACEMENT IR PORTOC ATH PLACEMENT Radiology Routine Malignant neoplasm of cardia (HCC) Ordered: 04/20/2024 [facility] Work Phone: Comment on above: Ordered: 04/20/2024 PAIN PANEL, UR QUANT PAIN PANEL, UR QUANT Lab Routine 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) Opioid contract exists 04/14/2024 9:31 AM EDT [facility] Immunizations Immunization Date Immunization Notes Care Provider [facility] 06-13-2022 Influenza, injectabl e, Madin [place] Canine Kidney, preservative free, quadrivalent Kostsa Furlong DO Work Phone: [facility] 06-13-2022 Pneumococcal Conjuga te 20-valent Kostas Furlong DO Work Phone: [facility] 06-13-2022 influenza virus vaccine, unspecified formulation Kostas Furlong DO Work Phone: [facility] 11-11-2021 Influenza, injectabl e, Madin [place] Canine Kidney, preservative free, quadrivalent Ignacio Sam MD Work Phone: [facility] 11-11-2021 pneumococcal polysaccharide vaccine, 23 valent Ignacio Sam MD Work Phone: [facility] 11-11-2021 influenza virus vaccine, unspecified formulation Ct (I-Stat) [facility] 09-06-2020 influenza, seasonal, injectable Ignacio Sam MD Work Phone: [facility] 07-21-2020 influenza, seasonal, injectable Kostas Furlong DO Work Phone: [facility] 07-02-2020 influenza, injectabl e, quadrivalent, contains preservative Kostas Furlong DO Work Phone: [facility] 06-14-2019 influenza, injectabl e, quadrivalent, contains preservative Kostas Furlong DO Work Phone: [facility] 06-14-2019 pneumococcal polysaccharide vaccine, 23 valent Kostas Furlong DO Work Phone: [facility] 06-28-2017 Influenza, injectabl e, Madin [place] Canine Kidney, preservative free, quadrivalent Ignacio Sam MD Work Phone: [facility] 07-17-2015 influenza, seasonal, injectable, preservative free Ignacio Sam MD Work Phone: [facility] 07-27-2014 influenza, seasonal, injectable, preservative free Ignacio Sam MD Work Phone: [facility] 06-06-2014 influenza, injectabl e, quadrivalent, preservative free Brynn Holliday Other [facility] [employer] Other 07-11-2013 influenza virus vaccine, whole virus Kostas Aprillong DO Work Phone: [facility] Payers Date Payer Category Payer Self-pay 2013 Medicaid [id number] 1964 Unknown [id number] 2.16.84 0.1.937801.3.579.2.593 1964 Unknown [id number] 2.16.84 0.1.495092.3.579.2.593 1964 Unknown [id number] 2.16.84 0.1.706211.3.579.2.593 1964 Unknown [id number] 2.16.84 0.1.648976.3.579.2.593 1964 Unknown [id number] 2.16.84 0.1.043599.3.579.2.593 1964 Unknown [id number] 2.16.84 0.1.444407.3.579.2.593 1964 Unknown [id number] 2.16.84 0.1.176961.3.579.2.593 1964 Unknown [id number] 2.16.84 0.1.648450.3.579.2.593 1964 Unknown [id number] 2.16.84 0.1.345348.3.579.2.593 1964 Unknown [id number] 2.16.84 0.1.391685.3.579.2.593 1964 Unknown [id number] 2.16.84 0.1.238967.3.579.2.593 1964 Unknown [id number] 2.16.84 0.1.719477.3.579.2.593 1964 Unknown [id number] 2.16.84 0.1.618414.3.579.2.593 1964 Unknown [id number] 2.16.84 0.1.057735.3.579.2.593 1964 Unknown [id number] 2.16.8 40.1.312332.3.579.2.1286 1964 Unknown [id number] 2.16.8 40.1.948652.3.579.2.1286 1964 Unknown [id number] 2.16.8 40.1.070184.3.579.2.1286 1964 Unknown [id number] 2.16.840 .1.417455.3.579.2.1286 1964 Unknown [id number] 2.16. 840.1.540202.3.579.2.175 1964 Unknown [id number] 2.16.8 40.1.577225.3.579.2.1285 1964 Unknown [id number] 2.16.8 40.1.002534.3.579.2.1285 1964 Unknown [id number] 2.16.8 40.1.868215.3.579.2.1285 1964 Unknown [id number] 2.16.8 40.1.958577.3.579.2.1285 1964 Unknown [id number] 2.16.8 40.1.824619.3.579.2.1285 1964 Unknown [id number] 2.16.8 40.1.787543.3.579.2.1285 1964 Unknown [id number] 2.16.8 40.1.189175.3.579.2.1285 1964 Unknown [id number] 2.16.8 40.1.489788.3.579.2.1285 1964 Unknown [id number] 2.16.8 40.1.955600.3.579.2.1285 1964 Unknown [id number] 2.16.8 40.1.245969.3.579.2.1285 1964 Unknown [id number] 2.16.8 40.1.711164.3.579.2.1285 1964 Unknown [id number] 2.16.8 40.1.622539.3.579.2.1285 1964 Unknown [id number] 2.16.8 40.1.844917.3.579.2.1285 1964 Unknown [id number] 2.16.8 40.1.358654.3.579.2.1285 1964 Unknown [id number] 2.16.8 40.1.781624.3.579.2.1285 1964 Unknown [id number] 2.16.840 .1.375456.3.579.2.1286 1964 Unknown [id number] 2.16.8 40.1.154366.3.579.2.6 1964 Unknown [id number] 2.16.8 40.1.787501.3.579.2.6 1964 Unknown [id number] 2.16.8 40.1.816284.3.579.2.1285 1964 Unknown [id number] 2.16.8 40.1.208747.3.579.2.6 1964 Unknown [id number] 2.16.8 40.1.197637.3.579.2.1285 1964 Unknown [id number] 2.16.8 40.1.430759.3.579.2.1286 1959 Self-pay [id number] 1959 Unknown [id number] 2.1 6.840.1.466649.19 1959 Unknown [id number] Unknown [id number] 2.16.8 40.1.200175.3.579.2.531 Social History Date Type Detail Facility Unknown if ever smoked [employer] Other Start: 12-03-2020 End: 04-18-2024 Sex Assigned At [employer] Other Start: 10-26-2013 End: 05-22-2022 Tobacco smoking status NVIS Never smoked tobacco [facility] Start: 10-26-2013 End: 05-22-2022 Tobacco use and exposure Smokeless tobacco non-user [facility] Start: 05-21-2022 End: 04-21-2024 Alcohol intake Current non-drinker of alcohol (finding) [facility] Start: 1965 Sex Assigned At Not on file [facility] History of tobacco use Passive smoker [facility] Start: 12-30-2020 End: 05-25-2022 Exposure to SARS-CoV-2 (event) Not sure [facility] Start: 12-03-2020 End: 08-13-2024 History of Social function [facility] National Score (1-10 0), lower number is lower risk Not on file [facility] Start: 08-23-2023 Alcohol intake Ex-drinker (finding) [facility] Has the [employer], or [employer] threatened to shut off services in your home in past 12Mo No [facility] Are you now , , , , never or living with a partner? [facility] How often to you hav e a drink containing alcohol? Never [facility] How hard is it for y ou to pay for the very basics like food, housing, medical care, and heating Hard [employer] Do you feel stress - tense, restless, nervous, or anxious, or unable to sleep at night because your mind is troubled all the time - these days [OSQ] Rather much [employer] Medical Equipment Procedure Code Equipment Code Equipment Origin al Text Equipment Identifier Dates Port Powerport I sp [employer] 8fr Titanium Implantable Infusion Custom - [id number] Start: 04-25-2024 Filter Celect Navalign 30mm 7fr 65cm [place] Hydrophilic 49mm 79cm - [id number] Start: 05-04-2024 Clinical Notes 06-02-2021 to 05-19-2024 Telephone Encounter - Lise Connolly RN - 05/19/2024 4:19 PM EDTTelephone Encounter - Lise Connolly RN - 05/19/2024 4:19 PM Jorge Oro DO - 05/17/2024 12:00 AM EDTPatient Instructions Note Date & Type Note Facility 05-19-2024 Telephone encounter Note Pt calls requesting pain patches. Notes that she is in excruciating pain. Refuses to go to the ER. Explained to pt that she will need to contact [facility] regarding her pain meds. Phone number provided to pt. Pt verbalizes understanding and thanks this [facility] for the information. Lise Connolly RN [facility] Work Phone: 05-19-2024 Miscellaneous Notes Pt calls requesting pain patches. Notes that she is in excruciating pain. Refuses to go to the ER. Explained to pt that she will need to contact [facility] regarding her pain meds. Phone number provided to pt. Pt verbalizes understanding and thanks this [facility] for the information. Lise Connolly RN Voicemail message received from pt' requesting her pain patches. Call placed to pt's home number as requested per pt. No answer. Message left requesting call back. Lise Connolly RN Voicemail message received from pt requesting to speak w/ nurse regarding her pain medication. Call placed to pt's home number. Call would not go through. Unable to leave a message. Call placed to pt's mobile number. Voicemail is full and not accepting messages. Lise Connolly RN documented in this encounter [facility] 05-18-2024 Telephone encounter Note Voicemail message received from pt' requesting her pain patches. Call placed to pt's home number as requested per pt. No answer. Message left requesting call back. Lise Connolly RN [facility] 05-17-2024 Telephone encounter Note Voicemail message received from pt requesting to speak w/ nurse regarding her pain medication. Call placed to pt's home number. Call would not go through. Unable to leave a message. Call placed to pt's mobile number. Voicemail is full and not accepting messages. Lise Sessler, RN 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 For additional details regarding dose and treatment plan please contact the Radiation Oncologist ELAPSED DAYS: 5 TOLERANCE: No significant toxicity noted during treatment. RESPONSE: To be assessed in outpatient clinic. REMARKS: Follow up with medical oncology with plan to start chemoimmunotherapy. Staff Physician Jorge Roy M.D 45:23 PM documented in this encounter [facility] 05-17-2024 Note [facility] 05-16-2024 Telephone encounter Note Palliative Medicine Care Coordination Follow up Phone Call Patient identified by name and : Yes Spoke to: patient Nurse calling to follow up on pain and hospice order that was placed by oncology yesterday. Discussed with patient if her pain is severe she needs to be seen in person and evaluated at the closest ED. Patient crying and moaning through the entire call and does not want to go to the hospital. She was surprised that oncology place a hospice consult yesterday. Let her know it was her that requested them per [facility] but said I can't remember everything being in this much pain. Advised she contact [facility] and provided her with their phone number [phone]. Let her know her oncology team already faxed to them the order and her records. Let her know they would provide more support and assess her pain so she can be more comfortable. Kaya agreed to call them now. April Frye RN May 16, 2024 12:[address] [facility] 05-16-2024 Miscellaneous Notes Palliative Medicine Care Coordination Follow up Phone Call Patient identified by name and : Yes Spoke to: patient Nurse calling to follow up on pain and hospice order that was placed by oncology yesterday. Discussed with patient if her pain is severe she needs to be seen in person and evaluated at the closest ED. Patient crying and moaning through the entire call and does not want to go to the hospital. She was surprised that oncology place a hospice consult yesterday. Let her know it was her that requested them per [facility] but said I can't remember everything being in this much pain. Advised she contact [facility] and provided her with their phone number [phone]. Let her know her oncology team already faxed to them the order and her records. Let her know they would provide more support and assess her pain so she can be more comfortable. Kaya agreed to call them now. April Frye RN May 16, 2024 12:49 PM Patient calling in extreme pain in abdomen . Return call to [phone] documented in this encounter [facility] 05-16-2024 Telephone encounter Note Patient calling in extreme pain in abdomen . Return call to [phone] [facility] 05-15-2024 Telephone encounter Note Notified Jolanta Koch for a sooner appointment with Dr. Vivar. Roberta Vaughan [facility] 05-15-2024 Miscellaneous Notes Notified Jolanta Koch for a sooner appointment with Dr. Vivar. Roberta Vaughan Spoke w/ pt who reports that she met w/ [facility] today, but did not sign on w/ their services. Pt still weak. Appetite is poor. Denies bleeding. Nausea, but no vomiting. Phenergan helps her nausea. Pt asks about refills for her patches. Informed pt that she will need to contact [facility] for refills since she did not sign on w/ hospice. Phone number provided. Clerical: Pt has f/u w/ [facility] on 06/05, but this should be moved up. Please reschedule and call pt w/ new appointment. Thanks! Lise Connolly RN DISCHARGE CALL BACK Today's date: May 12, 2024 Notified of Pt discharge by: Jolanta Patient discharged on 05/12/24 from [facility] Home Primary Cancer Diagnosis: Metasstatic Gastric Cancer Admitting Diagnosis: Upper GI bleed Discharge Summary/SBAR reviewed: Yes Handoff Discussed with Transitional Collections Clerk: No, unavailable Psychosocial Risk Factors: None If patient discharged to SNF/Rehab Facility, phone call completed to reinforce discharge instructions and follow up: N/A Call Disposition: Provided call back number on patient's voice mail requesting a return call to discuss recent discharge,upcoming appts, and any issues. Lise Connolly RN documented in this encounter [facility] 05-15-2024 Telephone encounter Note Spoke w/ pt who reports that she met w/ [facility] today, but did not sign on w/ their services. Pt still weak. Appetite is poor. Denies bleeding. Nausea, but no vomiting. Phenergan helps her nausea. Pt asks about refills for her patches. Informed pt that she will need to contact [facility] for refills since she did not sign on w/ hospice. Phone number provided. Clerical: Pt has f/u w/ [facility] on 06/05, but this should be moved up. Please reschedule and call pt w/ new appointment. Thanks! Lise Connolly RN [facility] Work Phone: 05-15-2024 Telephone encounter Note Order and records faxed to [facility]. Lise Connolly RN [facility] 05-15-2024 Miscellaneous Notes Order and records faxed to [facility]. Lise Connolly RN [facility] requesting an order. [facility] pt contacted them expressing interest in their services. Order pended. Lise Connolly RN documented in this encounter [facility] 05-15-2024 Telephone encounter Note [facility] requesting an order. [facility] pt contacted them expressing interest in their services. Order pended. Lise Connolly RN [facility] 05-12-2024 Telephone encounter Note DISCHARGE CALL BACK Today's date: May 12, 2024 Notified of Pt discharge by: Jolanta Patient discharged on 05/12/24 from [facility] to Home Primary Cancer Diagnosis: Metasstatic Gastric Cancer Admitting Diagnosis: Upper GI bleed Discharge Summary/SBAR reviewed: Yes Handoff Discussed with Transitional Collections Clerk: No, unavailable Psychosocial Risk Factors: None If patient discharged to SNF/Rehab Facility, phone call completed to reinforce discharge instructions and follow up: N/A Call Disposition: Provided call back number on patient's voice mail requesting a return call to discuss recent discharge,upcoming appts, and any issues. Lise Connolly RN [facility] 05-11-2024 Note [facility] 05-11-2024 [facility] 05-11-2024 Telephone encounter Note Update: Pt still admitted at . Completed 5 of 5 palliative radiation treatments to her stomach. Looking at SNF placement once appropriate for discharge. Still looking for accepting facility. Lise Connolly RN [facility] Work Phone: 05-11-2024 Miscellaneous Notes Update: Pt still admitted at . Completed 5 of 5 palliative radiation treatments to her stomach. Looking at SNF placement once appropriate for discharge. Still looking for accepting facility. Lise Connolly RN Thanks for the update. Clearly her cancer is progressing. If she is not amenable to surgery or systemic treatment hospice should be considered. Update: EGD conducted while inpatient at [facility] which showed Significant amount of blood with large clot burden covering 60 to 70% of the stomach. Unable to clear with suctioning or snare. Underlying tumor or bleeding lesion not visible due to this. 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 GS didn't recommend any surgical intervention, but if she continued to experiencing bleed and hematemesis that IR should be consulted stat for embolization. Patient was transferred to [facility] due to already being established with [facility] and needing higher level of care. Currently admitted at . Lise Connolly RN FYI: Pt present to [facility] ER on Wednesday w/ GI bleed. Hgb 6.2. Pt was transferred to [facility] in [place]. Per Care Everywhere, imaging in ER also noted a cystic ovarian mass concerning for malignancy. COMMERCIAL COLLECTIONS DRIVER eval ordered. Oncology saw pt who discussed hospice w/ pt. Pt remains conflicted on goals of care. Lise Connolly RN documented in this encounter [facility] 05-10-2024 Note [facility] 05-10-2024 [facility] 05-09-2024 [facility] 05-09-2024 [facility] 05-09-2024 Telephone encounter Note Pharmacy requesting 90 day supply Requested Prescriptions Pending Prescriptions Disp Refills OLANZapine (ZYPREXA) 10 mg tablet [Pharmacy Med Name: OLANZAPINE 10 MG TABLET] 90 tablet 1 Sig: TAKE 1 TABLET BY MOUTH EVERYDAY AT BEDTIME Arpil Frye RN May 09, 2024 [facility] 05-09-2024 Miscellaneous Notes Pharmacy requesting 90 day supply Requested Prescriptions Pending Prescriptions Disp Refills OLANZapine (ZYPREXA) 10 mg tablet [Pharmacy Med Name: OLANZAPINE 10 MG TABLET] 90 tablet 1 Sig: TAKE 1 TABLET BY MOUTH EVERYDAY AT BEDTIME April Frye RN May 09, 2024 documented in this encounter [facility] 05-08-2024 [facility] 05-08-2024 [facility] 05-08-2024 [facility] 05-07-2024 [facility] 05-07-2024 [facility] 05-06-2024 [facility] 05-06-2024 [facility] 05-05-2024 [facility] 05-05-2024 [facility] 05-05-2024 [facility] 05-04-2024 [facility] 05-04-2024 [facility] 05-04-2024 [facility] 05-04-2024 Telephone encounter Note Thanks for the update. Clearly her cancer is progressing. If she is not amenable to surgery or systemic treatment hospice should be considered. [facility] 05-04-2024 Telephone encounter Note Update: EGD conducted while inpatient at [facility] which showed Significant amount of blood with large clot burden covering 60 to 70% of the stomach. Unable to clear with suctioning or snare. Underlying tumor or bleeding lesion not visible due to this. 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 GS didn't recommend any surgical intervention, but if she continued to experiencing bleed and hematemesis that IR should be consulted stat for embolization. Patient was transferred to [facility] due to already being established with [facility] and needing higher level of care. Currently admitted at . Lise Connolly RN [facility] 05-04-2024 History of Present illness Narrative KAYA SCHILLING [id number] 05/04/2024 [facility] Department of Radiation Oncology Treatment Planning Note For reasons stated in the consult note, Kaya Schilling is a candidate for radiation therapy. Based on review and interpretation of the relevant diagnostic studies together with the exam findings, Kaya Schilling was simulated on 05/04/2024 at which time the target volume and/or requisite cardoso were delineated, as indicated in the simulation note, to be treated according to the prescription. The treatment target and organs at risk were contoured on the simulation scan. After reviewing multiple treatment plans with dosimetry, the best plan was approved to deliver the prescribed course of radiation to the target area using inverse planning to allow for the best isodose distribution, treating to the 97.5% isodose line with 10MV and 3 cardoso. Custom MLC's for IMRT were the treatment devices used to shape/modify the beams. Limiting dose to normal tissue was confirmed upon review of the calculated dose volume histogram. IMRT planning was used because it best met the dose/volume constraints for the organs at risk for this patient, better than what could be achieved using conventional or 3D planning. The specific dose requirements for the PTV, organs at risk and dose-volume histograms are contained in this treatment plan and/or elsewhere in the medical record. A completed summary of this plan dated 05/04/2024 incorporated herein by reference includes dose, beam arrangements, energy, blocking, isodose distribution, and/or ports and DVH. KAYA SCHILLING [id number] 05/04/2024 [facility] Department of Radiation Oncology [facility] RADIATION ONCOLOGY SIMULATION NOTE DATE OF SIMULATION: 05/04/2024 MACHINE: CT Simulator DIAGNOSIS: metastatic gastric cancer AREA:STOMACH PATIENT POSITION: Supine. CONTRAST: None PROTOCOL: None BLOCKS: Custom blocks are necessary to develop an optimal plan. FIXATION DEVICE: In order to achieve accurate and reproducible treatments, the patient is immobilized. PROCEDURE: A time-out was conducted and recorded by the therapist. Patient was simulated on the CT scanner for external beam radiation therapy. Treatment site was marked by the simulation therapist. ASSESSMENT/PLAN: Patient tolerated simulation procedure well. Treatments will be initiated after treatment planning. The patient will be scheduled for a verification simulation on the treatment machine to ensure proper set-up and field arrangement is correct prior to the first treatment of primary and any boost cardoso if applicable. documented in this encounter [facility] 05-04-2024 [facility] 05-04-2024 [facility] 05-03-2024 [facility] 05-03-2024 [facility] 05-02-2024 Telephone encounter Note FYI: Pt present to [facility] ER on Wednesday w/ GI bleed. Hgb 6.2. Pt was transferred to [facility] in [place]. Per Care Everywhere, imaging in ER also noted a cystic ovarian mass concerning for malignancy. COMMERCIAL COLLECTIONS DRIVER eval ordered. Oncology saw pt who discussed hospice w/ pt. Pt remains conflicted on goals of care. Lise Connolly RN [facility] 04-28-2024 Telephone encounter Note Refilled for 05/02/24 Per oarrs Filled a 15 day rx on 04/18/24 [facility] 04-28-2024 Miscellaneous Notes Refilled for 05/02/24 [...] and birthdate. Requesting delivery method: call/escript to: [facility] [place] [place] Additional Concern: N/A Requesting response back: N/A, no action needed [phone] (home) Nj Perkins April 28, 2024 documented in this encounter [facility] 04-28-2024 Telephone encounter Note Patient phones requesting refills as follows: Requested Prescriptions Pending Prescriptions Disp Refills HYDROcodone-Acetaminophen (NORCO) 10-325 mg per tablet 60 tablet 0 Sig: Take 1 tablet by mouth every 6 hours as needed for pain for up to 15 days. Please review and advise. Carmen Henson RN [facility] 04-28-2024 Telephone encounter Note Kaya Schilling is calling today regarding Refill Request. Patient has been identified by name and birthdate. Requesting delivery method: call/escript to: [facility] Additional Concern: N/A Requesting response back: N/A, no action needed [phone] (home) Nj Perkins April 28, 2024 [facility] 04-27-2024 Telephone encounter Note Patient has an appt on 05/02/24. Would you like labs, if so place orders. Chana Rm MA [facility] 04-27-2024 Miscellaneous Notes Patient has an appt on 05/02/24. Would you like labs, if so place orders. Chana Rm MA documented in this encounter [facility] 04-27-2024 Telephone encounter Note Cxed appointment. [facility] 04-27-2024 Miscellaneous Notes Cxed appointment. Voicemail message received from an unidentified caller. Purpose of message is to cancel tomorrow's education appointment. States that Kaya is refusing to go. Per caller, the pt states, No one can make me go. Caller did not leave a return phone number. Clerical: Please cancel tomorrow's education appointment. Lise Connolly RN Call placed to pt to discuss treatment plans and goals of care. No answer. Voicemail is full and not accepting messages. Call placed to home number. No answer. Message left requesting call back. Lise Connolly, BORA Call placed to sIsa to arrange for education per Kaya's request. [...] calls a friend screaming saying someone from [facility] is calling me and I'm getting really upset and this is urgent and I need you to call me back randolph . Patient states she doesn't understand anything, needs help, and also mentioned hospice. Advised patient I would get her connected with our Signal Operator Linguist Jackie and patient proceeded to say Jackie [...] Voicemail is full and not accepting messages. Lise Connolly RN documented in this encounter [facility] 04-27-2024 Telephone encounter Note Voicemail message received from an unidentified caller. Purpose of message is to cancel tomorrow's education appointment. States that Kaya is refusing to go. Per caller, the pt states, No one can make me go. Caller did not leave a return phone number. Clerical: Please cancel tomorrow's education appointment. Lise Connolly RN [facility] Work Phone: 04-26-2024 Telephone encounter Note Returning patients call regarding post op care from port placement. No answer. Left message on home phone. Called mobile, no answer, and unable to leave message due to a full mailbox. [facility] 04-26-2024 Miscellaneous Notes Returning patients call regarding post op care from port placement. No answer. Left message on home phone. Called mobile, no answer, and unable to leave message due to a full mailbox. documented in this encounter [facility] 04-26-2024 Telephone encounter Note Call placed to pt to discuss treatment plans and goals of care. No answer. Voicemail is full and not accepting messages. Call placed to home number. No answer. Message left requesting call back. Lise Connolly RN [facility] 04-26-2024 Telephone encounter Note Call placed [...] her appointment scheduled for Wednesday. Roberta Vaughan [facility] 04-26-2024 Telephone encounter Note Minal in Pathology notified. Lise Connolly RN [facility] Work Phone: 04-26-2024 Miscellaneous Notes [facility] in Pathology notified. Lise Connolly RN All of them please. Based on insurance we cannot predict which agent they will allow. [place] [facility] received our request for PD-L1 testing. Requests that you specify which PD-L1 you want. Pembrolizumab, Nivolumab, Atezolizumab...All of them? Lise Connolly RN documented in this encounter [facility] 04-26-2024 Telephone encounter Note All of them please. Based on insurance we cannot predict which agent they will allow. [facility] 04-26-2024 Telephone encounter Note [place] [facility] received our request for PD-L1 testing. Requests that you specify which PD-L1 you want. Pembrolizumab, Nivolumab, Atezolizumab...All of them? Lise Connolly RN [facility] 04-26-2024 Telephone encounter Note I spoke [...] calls a friend screaming saying someone from [facility] is calling me and I'm getting really upset and this is urgent and I need you to call me back randolph . Patient states she doesn't understand anything, needs help, and also mentioned hospice. Advised patient I would get her connected with our Signal Operator Linguist Jackie and patient proceeded to say Jackie [...] Issa at a later time. Roberta Vaughan [facility] 04-26-2024 Telephone encounter Note Collaborated with Ann Richter CNP. She will reach out to patient psychiatric provider and PCP regarding patient's unstable mental status. Plan will also be for Ann WESLEY to present patient at our [facility] meeting. April Frye RN April 26, 2024 8:[address] [facility] 04-26-2024 Miscellaneous Notes Collaborated with Ann Richter CNP. She will reach out to patient psychiatric provider and PCP regarding patient's unstable mental status. Plan will also be for Ann WESLEY to present patient at our [facility] meeting. April Frye RN April 26, [...] 2024 8:23 AM documented in this encounter [facility] 04-26-2024 Telephone encounter Note Palliative Medicine [...] Frye RN April 26, 2024 8:[address] [facility] 04-24-2024 Telephone encounter Note Pt did not show for her education appointment today. Call placed to pt for follow up. No answer @ home number. Unable to leave a message. No answer at mobile number. Voicemail is full and not accepting messages. Lise Connolly RN [facility] 04-24-2024 Telephone encounter Note Prior Authorization Documentation Prior authorization requested for the following medication: Medication: Butran 20 mcg TD patch Insurance Company Name: [employer] Phone number: [phone] Patient ID number: [id number] PCN OHRXPROD BIN [id number] Group ID N/A Harper [id number] Authorization approval #: [id number]. Dates of approval 04/24/2024 to 07/21/2024 Pharmacy Name: [facility] Pharmacy Telephone number: [phone] Pharmacy updated and patient had already picked up using discount care. Pharmacist will contact patient with any reimbursement OOP cost. Time Spent: 15 min. April Frye RN April 24, 2024 1:[address] [facility] 04-24-2024 Miscellaneous Notes Prior Authorization Documentation Prior authorization requested for the following medication: Medication: Butran 20 mcg TD patch Insurance Company Name: [employer] Phone number: [phone] Patient ID number: [id number] [facility] OHRXPROD BIN [id number] Group ID N/A Harper [id number] Authorization approval #: [id number]. Dates of approval 04/24/2024 to 07/21/2024 Pharmacy Name: [facility] Pharmacy Telephone number: [phone] Pharmacy updated and patient had already picked up using discount care. Pharmacist will contact patient with any reimbursement OOP cost. Time Spent: 15 min. April Frye RN April 24, 2024 1:56 PM documented in this encounter [facility] 04-24-2024 Telephone encounter Note I refilled Transdermal Butrans for 20 mcg/ hr patches, as we did tell her to double up the 10 mcg/hr patch she had for a toal of 20 mcg/hr No increase in [place] Please have scheduling get her an appt with me this week if possible, she may need to see me weekly as she is so symptomatic [facility] 04-24-2024 Miscellaneous Notes I refilled Transdermal Butrans for 20 mcg/ hr patches, as we did tell her to double up the 10 mcg/hr patch she had for a toal of 20 mcg/hr No increase in [place] Please have scheduling get her an appt with me this week if possible, she may need to see me weekly as she is so symptomatic Patient states she is out of the Butran patches and is asking for same day fill. Patient would like to know if she can have an increase in the [place] as she states that she was in excruciating pain over the weekend. Patient states she has been having swelling and pain and numbness in her ankles and yesterday was very bad. Patient would like to know if there is something that can be prescribed to help with the pain. Last ordered Butran 04/15/[address] Peres- Last ordered [place] 04/14/2024- Patient picked up 04/18 per pharmacy but now requesting a increase. TC to patient. Let her know she should have a prescription already she picked up so should have least 4 patches left. Patient reports having 24 tablets of her [place] left so does not need a refill and her pain is better but feels still needs and increase. Advised she follow up with her PCP for increase swelling that my be due to varicose. Confirmed with pharmacy: last picked up Butran patches on 04/15 for 4 patches. Last [place] prescription picked up 04/18/2024 for 60 tablets. [...] WESLEY on 05/12/2024 at 9:30 am at [facility] to discuss further the opioid agreement and Suboxone treatment. Patient wrote this down on her calendar. April Frye RN April 24, 2024 9:54 AM Kaya Schilling is calling today regarding Refill Request. Patient states she is out of the Butran patches and is asking for same day fill. Patient would like to know if she can have an increase in the [place] as she states that she was in [...] Requesting response back: N/A, no action needed [phone] (home) Nj Perkins April 24, 2024 documented in this encounter [facility] 04-24-2024 Telephone encounter Note Pt called regarding upcoming port placement. Patient requesting information on what types of infusions/scans that the port may be used for. Explained that the port is not just for chemotherapy, but may also be used for infusions as well as scans in lieu of starting an IV. Pt verbalized understanding and denies any additional questions. [facility] 04-24-2024 Miscellaneous Notes Pt called regarding upcoming port placement. Patient requesting information on what types of infusions/scans that the port may be used for. Explained that the port is not just for chemotherapy, but may also be used for infusions as well as scans in lieu of starting an IV. Pt verbalized understanding and denies any additional questions. documented in this encounter [facility] 04-24-2024 Telephone encounter Note Patient states she is out of the Butran patches and is asking for same day fill. Patient would like to know if she can have an increase in the [place] as she states that she was in excruciating pain over the weekend. Patient states she has been having swelling and pain and numbness in her ankles and yesterday was very bad. Patient would like to know if there is something that can be prescribed to help with the pain. Last ordered Butran 04/15/[address] Peres- Last ordered [place] 04/14/2024- Patient picked up 04/18 per pharmacy but now requesting a increase. TC to patient. Let her know she should have a prescription already she picked up so should have least 4 patches left. Patient reports having 24 tablets of her [place] left so does not need a refill and her pain is better but feels still needs and increase. Advised she follow up with her PCP for increase swelling that my be due to varicose. Confirmed with pharmacy: last picked up Butran patches on 04/15 for 4 patches. Last [place] prescription picked up 04/18/2024 for 60 tablets. [...] WESLEY on 05/12/2024 at 9:30 am at [facility] to discuss further the opioid agreement and Suboxone treatment. Patient wrote this down on her calendar. April Frye RN April 24, 2024 9:[address] [facility] 04-24-2024 Telephone encounter Note Kaya Hailey Schilling is calling today regarding Refill Request. Patient states she is out of the Butran patches and is asking for same day fill. Patient would like to know if she can have an increase in the [place] as she states that she was in [...] Requesting response back: N/A, no action needed [phone] (homeLarry Perkins April 24, 2024 [facility] 04-21-2024 Telephone encounter Note Pt calls upset that she didn't receive her B12 injection today. Requesting we make arrangements w/ her local pharmacy for her to get an injection today. Pt's record reviewed. 's note from 04/18/24 states: For now the patient will receive B12 1 mg IM monthly. Will monitor iron stores and give additional IV iron as indicated. Pt's most recent B12 injection was on 04/18/24. Explained to pt that her next injection will be due in 4 weeks. Pt verbalizes understanding. No additional requests noted. Lise Connolly RN [facility] Work Phone: 04-21-2024 Miscellaneous Notes Pt calls upset that she didn't receive her B12 injection today. Requesting we make arrangements w/ her local pharmacy for her to get an injection today. Pt's record reviewed. 's note from 04/18/24 states: For now the patient will receive B12 1 mg IM monthly. Will monitor iron stores and give additional IV iron as indicated. Pt's most recent B12 injection was on 04/18/24. Explained to pt that her next injection will be due in 4 weeks. Pt verbalizes understanding. No additional requests noted. Lise Connolly RN documented in this encounter [facility] 04-21-2024 Telephone encounter Note You are scheduled for a Port Placement, On 04/25/2024. You are to arrive at 10:30 am and Report to [facility]: [facility]: Radiology Outpatient Desk [id number] You can expect to be here for [...] Labs: Lab-work needs to be drawn? No.. Customer Counter Associate/Transportation: How will you be arriving for your procedure? Private car. You will need a responsible adult to accompany you to and from the procedure. Your transit mixer driver is required to stay with you until you are taken into the procedure room. Spoke to patient EXTENSIVELY about instructions for procedure, when to stop medications, NPO instructions, and also that a transit mixer driver is required, and patient verbalized understanding. Patient also given phone number to call back with any questions [facility] 04-21-2024 Miscellaneous Notes You are scheduled for a Port Placement, On 04/25/2024. You are to arrive at 10:30 am and Report to [facility]: [facility]: Radiology Outpatient Desk [id number] You can expect to be here for [...] Labs: Lab-work needs to be drawn? No.. Customer Counter Associate/Transportation: How will you be arriving for your procedure? Private car. You will need a responsible adult to accompany you to and from the procedure. Your transit mixer driver is required to stay with you until you are taken into the procedure room. Spoke to patient EXTENSIVELY about instructions for procedure, when to stop medications, NPO instructions, and also that a transit mixer driver is required, and patient verbalized understanding. Patient also given phone number to call back with any questions documented in this encounter [facility] 04-21-2024 Telephone encounter Note Pt will be in on Wednesday for education. Script for Zofran pended. Pt already has phenergan at home. Lise Connolly RN [facility] Work Phone: 04-21-2024 Miscellaneous Notes Pt will be in on Wednesday for education. Script for Zofran pended. Pt already has phenergan at home. Lise Connolly RN documented in this encounter [facility] 04-21-2024 Telephone encounter Note I spoke w/ Kaya while she was here just now. Reports her pain is better this morning. Pt found the bottle of [place] prescribed per Ann. Dosing instructions reviewed. Pt took 1 dose around 9 AM. Pt is aware that she must wait until 3 PM to take her next dose. Pt verbalizes understanding. Was planning to stop and get breakfast after leaving the office. Reinforced pall med's instructions to go to the ER if her pain becomes severe or uncontrolled. Lise Connolly RN [facility] Work Phone: 04-21-2024 Miscellaneous Notes I spoke w/ Kaya while she was here just now. Reports her pain is better this morning. Pt found the bottle of [place] prescribed per Ann. Dosing instructions reviewed. Pt took 1 dose around 9 AM. Pt is aware that she must wait until 3 PM to take her next dose. Pt verbalizes understanding. Was planning to stop and get breakfast after leaving the office. Reinforced pall med's instructions to go to the ER if her pain becomes severe or uncontrolled. Lise Connolly RN Addended by: LILLIE RICHTER on: 04/21/2024 [...] virtually. If she cannot get to [facility] she needs a local referral. It will [...] plan, we can refer her to another [facility] meed program. Care Coordination Triage Note [facility] Situation: Patient called in again today reporting severe pain and crying. Background: Disease, current pertinent medications/treatments Gastric Cancer, PE, DM2, Bipolar. Assessment: Patient still reporting severe pain and currently driving to her treatment. I let her know her treatment is not until 1 pm. She is leaving now to see if someone can help her. She reports having only 1 [place] tablet left and will take soon. Advises patient she had refill for 60 tablets of [place] on 04/18 and should not only have [...] 2024 9:43 AM documented in this encounter [facility] 04-21-2024 Note Addended by: LILLIE TURNER on: 04/21/2024 10:29 AM Modules accepted: Orders [facility] 04-21-2024 Telephone encounter Note I also [...] her virtually. If she cannot get to [facility] she needs a local referral. It will be very difficult to treat her if she has no mental health support. [facility] 04-21-2024 Telephone encounter Note I agree [...] plan, we can refer her to another [facility] meed program. [facility] 04-21-2024 Telephone encounter Note Care Coordination Triage Note [facility] Situation: Patient called in again today reporting severe pain and crying. Background: Disease, current pertinent medications/treatments Gastric Cancer, PE, DM2, Bipolar. Assessment: Patient still reporting severe pain and currently driving to her treatment. I let her know her treatment is not until 1 pm. She is leaving now to see if someone can help her. She reports having only 1 [place] tablet left and will take soon. Advises patient she had refill for 60 tablets of [place] on 04/18 and should not only have [...] it as recommended. Recommendations: Per Ann Richter TRAFFIC EXPERT to review. , patient directed to by nurse to seek emergent care if pain severe. Oncology Team: Oncology SW: Can we have Oncology SW follow up with patient today? April Frye RN April 21, 2024 9:[address] [facility] 04-20-2024 Telephone encounter Note Attempted to call patient at this time and was unable to leave a voicemail without identification. Left voicemail with callback number for patient to get instructions. [facility] 04-20-2024 Miscellaneous Notes Attempted to call patient at this time and was unable to leave a voicemail without identification. Left voicemail with callback number for patient to get instructions. documented in this encounter [facility] 04-20-2024 Telephone encounter Note Images from the original note were not included. Daisha Barnes; Lise Connolly RN58 minutes ago (1:01 PM) LINO You're welcome. We had a nice 20 minute phone call, yes she is aware :) [facility] 04-20-2024 Miscellaneous Notes Images from the original note were not included. Daisha Barnes; Lise Connolly RN58 minutes ago (1:01 PM) NZ You're welcome. We had a nice 20 minute phone call, yes she is aware :) Thanks! Is the patient aware or do we need to call and notify her? Lise Connolly RN Images from the original note were not included. Daisha Barnes You; Roberta Vaughan3 minutes ago (12:41 PM) LINO Thanks! She is on the schedule at [facility] on 04/25 for her port. Daisha Order signed. Lise Connolly RN New order, including diagnosis, pended. Please review and approve. Lise Connolly RN Images from the original note were not included. Daisha Barnes You1 hour ago (9:32 AM) LINO Spoke to patient and scheduled her for 04/25 at [facility]. Can we please get an order with a diagnosis? Thanks, Daisha Images from the original note were not included. Daisha Barnes You1 hour ago (6:59 AM) LINO Nicolas has some appointments next week. I will call the patient to schedule. Daisha [facility] [place] Alexus documented in this encounter [facility] 04-20-2024 Telephone encounter Note Pt calls to verify her next appointment in the clinic. Appointments reviewed w/ pt. Pt verbalizes understanding. Lise Connolly RN [facility] Work Phone: 04-20-2024 Miscellaneous Notes Pt calls to verify her next appointment in the clinic. Appointments reviewed w/ pt. Pt verbalizes understanding. Lise Connolly RN documented in this encounter [facility] 04-20-2024 Telephone encounter Note Thanks! Is the patient aware or do we need to call and notify her? Lise Connolly RN [facility] 04-20-2024 Telephone encounter Note Images from the original note were not included. Daisha Barnes You; Roberta Vaughan3 minutes ago (12:41 PM) LINO Thanks! She is on the schedule at [facility] on 04/[address] for her port[address] Daisha [facility] 04-20-2024 Telephone encounter Note Order signed. Lise Connolly RN [facility] 04-20-2024 Telephone encounter Note New order, including diagnosis, pended. Please review and approve. Lise Connolly RN [facility] 04-20-2024 Telephone encounter Note Images from the original note were not included. Daisha Barnes1 hour ago (9:32 AM) LINO Spoke to patient and scheduled her for 04/25 at [facility]. Can we please get an order with a diagnosis? Annika, Daisha [facility] 04-20-2024 Telephone encounter Note Images from the original note were not included. Daisha Barnes You1 hour ago (6:59 AM) LINO Nicolas has some appointments next week. I will call the patient to schedule. Daisha [facility] 04-19-2024 Miscellaneous Notes Order faxed to [facility] @ [phone]. Lise Connolly RN 3rd attempt made to reach pathology. No answer. Message left requesting call back. Lise Connolly RN 2nd call placed to [facility]. No answer. Unable to leave a message. Lise Connolly RN Call placed to [facility]. No answer. Unable to leave a message. Order on BR's desk to be signed. Lise Connolly RN Images from the original note were not included. Melia: Request to [facility]. Thank you! Roberta Vaughan documented in this encounter [facility] 04-19-2024 Telephone encounter Note Order faxed to [facility] @ [phone]. Lise Connolly RN [facility] Work Phone: 04-19-2024 Telephone encounter Note 3rd attempt made to reach pathology. No answer. Message left requesting call back. Lise oCnnolly RN [facility] 04-19-2024 Telephone encounter Note Care Coordination Triage Note [facility] Situation: Patient reports continued severe abdominal pain increased every day since visit with LUPILLO Juarez Background: Disease, current pertinent medications/treatments Gastric Cancer Assessment: Patient reports her pain in the morning 06/15. She took the Oxy IR with no relief. She is only wearing one Butran 10 mcg patch. Said her friend Fidelina from [place] did not believe we increased it. She [...] patches as discussed with her on 04/17. -[place] 10/325 Q6H prn, taking 1 tablet, taking [...] Frye RN April 19, 2024 12:[address] [facility] 04-19-2024 Miscellaneous Notes Care Coordination Triage Note [facility] Situation: Patient reports continued severe abdominal pain increased every day since visit with LUPILLO Juarez Background: Disease, current pertinent medications/treatments Gastric Cancer Assessment: Patient reports her pain in the morning 1010. She took the Oxy IR with no relief. She is only wearing one Butran 10 mcg patch. Said her friend Fidelina from [place] did not believe we increased it. She [...] patches as discussed with her on 04/17. -[place] 10/325 Q6H prn, taking 1 tablet, taking [...] birthdate. Requesting response back: call at home [phone] (cell) Vahe Diaz April 19, 2024 documented in this encounter [facility] 04-19-2024 Telephone encounter Note Kaya Schilling requesting a return call to discuss a possible increase in pain medication. Patient has been identified by name and birthdate. Requesting response back: call at home [phone] (mttc) Vahe CallejasMobbles April 19, 2024 [facility] Work Phone: 04-18-2024 Telephone encounter Note 2nd call placed to [facility]. No answer. Unable to leave a message. Lise Connolly RN [facility] 04-18-2024 Telephone encounter Note Call placed to [facility]. No answer. Unable to leave a message. Order on [facility]'s desk to be signed. Lise Connolly RN [facility] 04-18-2024 Telephone encounter Note Images from the original note were not included. Melia: Request to [facility]. Thank you! Roberta Vaughan [facility] 04-18-2024 Telephone encounter Note Refer to [facility] [place] for [place] Vaughan [facility] 04-17-2024 Note [facility] 04-17-2024 History of Present illness Narrative PATIENT NAME: Kaya Schilling DATE: 04/18/2024 PRIMARY CARE PHYSICIAN: Kostas Steward, DO OTHER PHYSICIANS: Dr. Cong Montano, Dr. Ramires (Psych in [place]) Portions of this encounter note have been [...] abdominal pain. She was recently seen by [facility] palliative medicine, and is on [...] acute cor pulmonale, unspecified pulmonary embolism type ([facility]) No date: Anemia No date: Arthritis No date: Bipolar 1 disorder ([facility]) No date: Broken jaw ([facility]) Comment: no surgery No date: COPD (chronic obstructive pulmonary disease) ([facility]) No date: Diabetes mellitus (adult onset) ([facility]) No date: Gastric carcinoma ([facility]) No date: History of broken nose Comment: had septoplasty No date: Manic depression ([facility]) Comment: Dr. Rees No date: Midline low [...] soft tissue swelling, and atrophy. PATHOLOGY: 03/23/2024 [id number] NGS analysis MSI high not detected. No actionable mutations. 03/02/2024 Cardia mass biopsy ([facility]) Invasive adenocarcinoma, intestinal type, low-grade HER2 2+ [...] suspicious for osseous metastases. 02/13/2024 Chest CTA ([facility]) Acute pulmonary embolism involving segmental branches of the left upper lobe and interlobar and segmental branches of right middle and lower lobes. 2.6 x 5.6 cm enhancing intraluminal mass along the lesser curvature suspicious for gastric cancer Gastrohepatic ligament lymphadenopathy representing metastasis 11/19/2023 CT abdomen/pelvis ([facility]) Mild wall thickening of the colon [...] (primary diagnosis) The patient presented 02/13/2024 to [facility] emergency room for evaluation of left sided chest pain and abdominal pain, at which time a chest CTA revealed a gastric mass. EGD 03/02/2024 revealed a malignant tumor at the gastric cardia. Biopsy revealed adenocarcinoma consistent with gastric primary. Final pathology revealed HER2 negative, MMR intact. [id number] revealed no actionable mutations. Staging PET scan [...] 2024. The patient has been referred to [facility] palliative medicine for management. 9. Hypercalcemia of malignancy - ICD9: 275.42, ICD10: E83.52 Labs obtained 04/18/2024 revealed significant hypercalcemia, most likely secondary to metastatic disease. Will give IV fluids plus Aredia today. Monitor labs closely and give additional treatment as indicated. Beto Vivar MD CC: Dr. Cong Montano documented in this encounter [facility] 04-17-2024 Telephone encounter Note Palliative Medicine Care Coordination Follow up Phone Call Patient identified by name and : Yes Spoke to: patient Nurse calling to follow up on provider medication recommendations. Discussed with Kaya that Ann WESLEY recommends applying a 2nd Butran patch to equal 20 mcg/hour and may take dulcolax TN and Linzess until she has a bowel movement then discontinue. Patient verbalized understanding and will call when needing a refills. April Frye RN April 17, 2024 1:[address] [facility] 04-17-2024 Miscellaneous Notes Palliative Medicine Care Coordination Follow up Phone Call Patient identified by name and : Yes Spoke to: patient Nurse calling to follow up on provider medication recommendations. Discussed with Kaya that Ann WESLEY recommends applying a 2nd Butran patch to equal 20 mcg/hour and may take dulcolax TN and Linzess until she has a bowel movement then discontinue. Patient verbalized understanding and will call when needing a refills. April Frye RN April 17, 2024 1:[address] a second transdermal Butrans patch on for a total of 20 mcg/ hr She could use dulcolax TN with Linzess until she has a movement then DC Care Coordination Triage Note [facility] Situation: Patient reports stomach pain that has not resolved despite the increase in her [place]. Background: Disease, current pertinent medications/treatments malignant neoplasm of cardia of stomach Assessment: Patient reports having pain usually in the morning. She reports starting the Patch on Wednesday. So far she Reports pain level 10/10 in the morning. Patient takes the [place] 10 mg pain reduces to a 7/10 and just takes the edge off. Still has nausea and takes phenergan. Has not picked up Olanzapine yet. Last BM Sunday 04/15. Current pain regimen and usage: Buprenorphine 10 mg, taking [place] 10/325 po Q6HR prn, taking 1 tablet 3x daily in the am, afternoon, and pm), advised to increase to 4 x daily as needed. Reports having 6 tablets left and has said she has not picked up her [place] ordered 04/14 and not due for a refill until tomorrow per pharmacy. Bowel regimen and usage: -Linzess daily, taking daily, Last took 8 . Last BM 04/15. Denies constipation. Advise to continue daily as recommended and hold if loose stools. Nausea/appetite: - Olanzapine 10 mg po at HS-has not picked up, will fish bait picker today. -phenergan 25 mg table, taking Q6H [...] call to discuss possible remedies for relief. Janice BARAJAS documented in this encounter [facility] 04-17-2024 Telephone encounter Note She can place a second transdermal Butrans patch on for a total of 20 mcg/ hr She could use dulcolax TN with Linzess until she has a movement then DC [facility] 04-17-2024 Telephone encounter Note Care Coordination Triage Note [facility] Situation: Patient reports stomach pain that has not resolved despite the increase in her [place]. Background: Disease, current pertinent medications/treatments malignant neoplasm of cardia of stomach Assessment: Patient reports having pain usually in the morning. She reports starting the Patch on Wednesday. So far she Reports pain level 10/10 in the morning. Patient takes the [place] 10 mg pain reduces to a 7/10 and just takes the edge off. Still has nausea and takes phenergan. Has not picked up Olanzapine yet. Last BM Sunday 04/15. Current pain regimen and usage: Buprenorphine 10 mg, taking [place] 10/325 po Q6HR prn, taking 1 tablet 3x daily in the am, afternoon, and pm), advised to increase to 4 x daily as needed. Reports having 6 tablets left and has said she has not picked up her [place] ordered 04/14 and not due for a refill until tomorrow per pharmacy. Bowel regimen and usage: -Linzess daily, taking daily, Last took 04/12 . Last BM 04/15. Denies constipation. Advise to continue daily as recommended and hold if loose stools. Nausea/appetite: - Olanzapine 10 mg po at HS-has not picked up, will fish bait picker today. -phenergan 25 mg table, taking Q6H prn, took last night around 8:30 pm and it helped. Patient asking for an adjustment in her pain medications. Recommendations: Per Ann Richter CNP- to review, patient directed to ER if symptoms worsen. April Frye RN April 17, 2024 11:[address] [facility] 04-17-2024 Telephone encounter Note Kaya Schilling is calling today regarding pain that she is experiencing in her stomach. She states that has not been able to maintain a comfortable level. Patient is requesting a return call to discuss possible remedies for relief. Janice BARAJAS [facility] 04-15-2024 Miscellaneous Notes Addended by: FABY PERES on: 04/15/2024 03:16 PM Modules accepted: Orders I received a page for the pt and spoke with her and caregiver, Fidelina, on the phone today. Briefly, she is a 59 yo female with gastric cancer, currently in the middle of treatment planning. She is followed by [facility] (Lillie Richter CNP) for pain management. Fidelina said that she needs a doctor to approve the script for buprenorphine TD 10 mcg/hr sent to [facility] in [place], [place] yesterday. I then spoke with the pharmacy staff ([phone]), who mentioned that this drug will need prior authorization approval from the pt's medical insurance. I told the staff and iFdelina that this can be accomplished by our team on Wednesday, and that for now, the patient can take [place] 10/325 1 tablet q6 hrs prn. Fidelina added that she will try to pay for buprenorphine [id number], and may need to call have it called in to another pharmacy. I gave her our contact information. Faby Peres MD, FACP, [facility] Pager [phone] April 15, 2024 2:16 PM CC: Lillie Richter CNP [facility] Pool Addendum I spoke to Fidelina once again, who wanted buprenorphine TD 10 mcg/hr sent to another pharmacy ([facility] in [place], [place]). The following prescription(s) will be transmitted electronically to the patient's pharmacy of choice. Requested Prescriptions Signed Prescriptions Disp Refills buprenorphine (BUTRANS) 10 mcg/hour 4 Patch 0 Sig: Apply 1 Patch as directed one time a week for 30 days. Authorizing Provider: FABY PERES MD, KRIS, [facility] Pager [phone] April 15, 2024 3:15 PM documented in this encounter [facility] 04-15-2024 Note Addended by: FABY EPRES on: 04/15/2024 03:16 PM Modules accepted: Orders [facility] 04-15-2024 Telephone encounter Note I received a page for the pt and spoke with her and caregiver, Fidelina, on the phone today. Briefly, she is a 59 yo female with gastric cancer, currently in the middle of treatment planning. She is followed by [facility] (Lillie Richter CNP) for pain management. Fidelina said that she needs a doctor to approve the script for buprenorphine TD 10 mcg/hr sent to [facility] in [place], [place] yesterday. I then spoke with the pharmacy staff ([phone]), who mentioned that this drug will need prior authorization approval from the pt's medical insurance. I told the staff and Fidelina that this can be accomplished by our team on Wednesday, and that for now, the patient can take [place] 10/325 1 tablet q6 hrs prn. Fidelina added that she will try to pay for buprenorphine [id number], and may need to call have it called in to another pharmacy. I gave her our contact information. Faby Prees MD, KRIS, [facility] Pager [phone] April 15, 2024 2:16 PM CC: Lillie Richter CNP [facility] Med Pool Addendum I spoke to Fidelina once again, who wanted buprenorphine TD 10 mcg/hr sent to another pharmacy ([facility] in [place], [place]). The following prescription(s) will be transmitted electronically to the patient's pharmacy of choice. Requested Prescriptions Signed Prescriptions Disp Refills buprenorphine (BUTRANS) 10 mcg/hour 4 Patch 0 Sig: Apply 1 Patch as directed one time a week for 30 days. Authorizing Provider: FABY PERES MD, FACP, [facility] Pager [phone] April 15, 2024 3:[address] [facility] 04-14-2024 Note [facility] 04-14-2024 History of Present illness Narrative SOCIAL WORK FOLLOW UP NOTE: [facility] Date of service: 04/14/24 Kaya Schilling is being seen for a follow up social work visit. Today's visit includes: patient TOPICS ADDRESSED: ONS from the [facility] Program PLAN: Continue follow up as needed [...] appropriate. CHUCHO Francis documented in this encounter [facility] 04-14-2024 Instructions Lillie Richter APRN.LUPILLO - 04/14/2024 9:18 AM EDT Lillie Richter CNP Department of Palliative and Supportive Care Palliative Care - Specialty services in symptom management and support For questions or prescription refills, call: [phone] Wednesday - Wednesday 9AM-5PM ELENO Franco, RN - Collections Clerk Please call 3-5 days in advance for medication refills Evenings, Weekends, Holidays: [phone] (ask for palliative medicine on-call provider) For appointments, cancellations or reschedule, call: [phone] documented in this encounter [facility] 04-14-2024 Note [facility] 04-14-2024 History of Present illness Narrative PALLIATIVE MEDICINE INITIAL CONSULT SERVICE DATE: 04/14/2024 Referring Physician: Beto Vivar ([facility]) [address] [place] [address] [place] [address] Medical Oncologist: Beto Vivar MD Primary Physician: Kostas Steward MD, DO REASON FOR CONSULT: Symptom Management Subjective Kaya Schilling is a 59 year old female with history of Gastric Cancer, PE, DM2, Bipolar, Hypothyroidism, Hep C, Anemia.The patient presented 02/13/2024 to [facility] emergency room for evaluation of left [...] lower quad. She has a prescription for [place] 06/08/2025 was directed to take 1 every [...] acute cor pulmonale, unspecified pulmonary embolism type ([facility]) No date: Anemia No date: Arthritis No date: Bipolar 1 disorder ([facility]) No date: Broken jaw ([facility]) Comment: no surgery No date: COPD (chronic obstructive pulmonary disease) ([facility]) No date: Diabetes mellitus (adult onset) ([facility]) No date: Gastric carcinoma ([facility]) No date: History of broken nose Comment: had septoplasty No date: Manic depression ([facility]) Comment: Dr. Rees No date: Midline low [...] Use: Never REVIEW OF SYSTEMS: Modified ESAS ([place] Symptom Assessment Scale): Information Provided By: Patient [...] ear normal. Nose: Nose normal. Mouth/Throat: Lips: [place]. Mouth: Mucous membranes are moist. No oral [...] Informed Consent: Signed today Lillie Richter NP, INSTRUCTIONAL SPECIALIST.TRAFFIC EXPERT Assessment & Plan (Z51.5) Palliative care by [...] chronic pain severe enough to require daily, [id number], half-way opioid treatment AND ? Alternative treatment options [...] of shared electronic medical record. Lillie Richter STATISTICS TEACHER, INSTRUCTIONAL SPECIALIST.TRAFFIC EXPERT April 14, 2024 8:46 AM I spent a total of 60 minutes on the date of the service which included preparing to see the patient, [id number] patient care, completing clinical documentation, obtaining and/or reviewing separately obtained history, performing a medically appropriate examination, counseling and educating the patient/family/caregiver, ordering medications, tests, or procedures, communicating with other HCPs (not separately reported), independently interpreting results (not separately reported), communicating results to the patient/family/caregiver, and care coordination (not separately reported) . This note may have been partially generated using the [employer] voice recognition system. While every effort was made to correct voice recognition errors, kindly be aware that some errors may occasionally occur. documented in this encounter [facility] 04-14-2024 History of Present illness Narrative Oncology Nutrition Therapy Progress Note I have communicated my name and active licensure. The patient's identity and physical location were verified at the time of this visit. Either the patient or their legal sales and marketing representative has been informed of the risks [...] determination of ONS coverage still pending through [facility]. Provided pt with contact information for [facility] so she can call to receive update on the request. Pt verbalized need for ONS as she is almost out and has limited funds. Message sent to to gather and provide ONS samples to patient today courtesy of the [facility] ONS compressor mechanic bus program. READINESS TO LEARN Cognitive ability: Alert [...] Aguillon RDN, LD documented in this encounter [facility] 04-14-2024 Note [facility] 04-12-2024 Telephone encounter Note Patient is scheduled with dr vivar on 04/18 [facility] 04-12-2024 Miscellaneous Notes Patient is scheduled [...] he returns from vacation to discuss chemotherapy. Lise Sessler, RN ----- Message from Beto Vivar MD [...] to the area. documented in this encounter [facility] 04-12-2024 Telephone encounter Note Spoke to patient & scheduled her b-12 injection on 04/21/2024 at 10:30 am. Put a appointment note in to schedule monthly once the follow up with BRM is schedule when Tsmit finds an opening on his schedule. There is another phone encounter to that effect. NIRANJAN Adkins [facility] 04-12-2024 Miscellaneous Notes Spoke to patient [...] it is sent out to our nurse brownfield redevelopment site manager. NIRANJAN Adkins Pt needs a B12 only appointment on 04/21/24 then monthly. Currently has no follow up with BRBrittany or HEATHER, Yvonne Echavarria RN Patient added to b12 today Patient [...] be adequate. Patient is already scheduled. Per 's instructions, he wanted her scheduled for 4 doses. Should we discontinue the 4th dose? IV iron at [facility] weekly x 4 - 1st infusion in [...] soon as possible. documented in this encounter [facility] 04-12-2024 Telephone encounter Note Pt calls [...] ER for evaluation and treatment of pain. Mraley Aranda RN FYI [facility] 04-12-2024 Miscellaneous Notes Pt calls to [...] ER for evaluation and treatment of pain. Marley Aranda RN FYI documented in this encounter [facility] 04-11-2024 Telephone encounter Note Lvm for patient to call us back to schedule B-12 injection on 04/21 & then monthly. Let patient know also, that we are still working on getting a follow up scheduled with BRM that it is sent out to our nurse brownfield redevelopment site manager. NIRANJAN Adkins [facility] 04-11-2024 Telephone encounter Note Pt needs a B12 only appointment on 04/21/24 then monthly. Currently has no follow up with SALOMON or Yvonne ROMERO RN [facility] 04-11-2024 Telephone encounter Note Hi please cancel ref thanks! [facility] 04-11-2024 Miscellaneous Notes Hi please cancel ref thanks! Clerical: Per / phone encounter, BRM states that surgery is not recommended at this time. Please cancel the consult to thoracic surgery. Thanks! Lise Connolly RN documented in this encounter [facility] 04-10-2024 Telephone encounter Note Clerical: Per / phone encounter, BRBrittany states that surgery is not recommended at this time. Please cancel the consult to thoracic surgery. Thanks! Lise Connolly RN [facility] Work Phone: 04-10-2024 Telephone encounter Note Thoracic referral consult request is cancelled as per Dr. Vivar. Thoracic Surgery Consultation - review of records for appointment scheduling Received medical records from the office of Belen Carlton [address] [place] [address] Patient is being referred to Jeanne Mccormick MD, PhD by Belen Carlton for gastric ADCA Outside hospital records scanned / in [facility] / Care Everywhere Pathology:03/02/2024 Final Pathologic [...] (primary diagnosis) The patient presented 02/13/2024 to [facility] emergency room for evaluation of left [...] G89.3 Pain LUQ and lower abd. Continue [place] PRN. Pall med referral. Beto Vivar MD [...] acute cor pulmonale, unspecified pulmonary embolism type ([facility]) No date: Anemia No date: Arthritis No date: Bipolar 1 disorder ([facility]) No date: Broken jaw ([facility]) Comment: no surgery No date: COPD (chronic obstructive pulmonary disease) ([facility]) No date: Diabetes mellitus (adult onset) ([facility]) No date: Gastric carcinoma ([facility]) No date: History of broken nose Comment: had septoplasty No date: Manic depression ([facility]) Comment: Dr. Rees No date: Midline low [...] per Dr. Vivar. Jean Claude Mcclelland RN [facility] Work Phone: 04-10-2024 Miscellaneous Notes Thoracic referral consult request is cancelled as per Dr. Vivar. Thoracic Surgery Consultation - review of records for appointment scheduling Received medical records from the office of Belen Carlton [facility] [address] Patient is being referred to Jeanne Mccormick MD, PhD by Belen Carlton for gastric ADCA Outside hospital records scanned / in [facility] / Care Everywhere Pathology:03/02/2024 Final Pathologic [...] (primary diagnosis) The patient presented 02/13/2024 to [facility] emergency room for evaluation of left [...] G89.3 Pain LUQ and lower abd. Continue [place] PRN. Pall med referral. Beto Vivar MD [...] acute cor pulmonale, unspecified pulmonary embolism type ([facility]) No date: Anemia No date: Arthritis No date: Bipolar 1 disorder ([facility]) No date: Broken jaw ([facility]) Comment: no surgery No date: COPD (chronic obstructive pulmonary disease) ([facility]) No date: Diabetes mellitus (adult onset) ([facility]) No date: Gastric carcinoma ([facility]) No date: History of broken nose Comment: had septoplasty No date: Manic depression ([facility]) Comment: Dr. Rees No date: Midline low [...] RN LOCAL PATIENT Received Fax from [facility] Kaya Schilling is being referred to Jeanne Mccormick M.D., Ph. D. by Belen Carlton [address] [place] [address] [address] [place] [address] Patient diagnosis/Reason for consult: Gastric Adenocarcinoma Referral triage process explained: No Patient will receive a call from Thoracic NPM after triage review with surgeon to discuss any additional testing and/or consults that will be scheduled. Pt will then receive a call from our scheduling office for scheduling. Please call pt at [phone]. Patient was informed consultation could be at [place] or [facility] [place]: No Patient Registration: Registration complete/updated: yes Insurance card(s) scanned in [facility] with in the past year: Yes: Date: 03/23/24 Pt's MyChart is Pending. Ok to communicate to pt via [employer] not asked Medical Records: Records in [facility] (internal CC records): Yes Imaging in [facility] (internal [facility] records): Yes Care Everywhere - queried yes, downloaded Yes Linked Outside Organizations (list): [facility] OS Records Requested: no Date: N/A Outside Hospital(s) requested records from: n/a Received: yes Uploaded: Yes. Waiting on additional records: No. Missing (list): Records in OS Pathology Slides Requested: no Date: N/A Outside Hospital(s) slides requested from: n/a OS Radiology Imaging Requested: yes Date: N/A Outside Hospital(s) [facility]. Imaging will be received via Electronic Transfer Received: Yes Imaging uploaded: Yes Waiting on additional: No. Missing (list): n/a Additional providers added to Care Teams: Yes Additional Notes/Comments: n/a Enct routed to: Dirk Castano NPM for Triage Leatha Rodriguez, clinical administrative coordinator documented in this encounter [facility] 04-07-2024 Telephone encounter Note Patient is already scheduled to see [facility] next 04/14/24. Lise Connolly, RN [facility] Work Phone: 04-07-2024 Miscellaneous Notes Patient is already scheduled to see [facility] next 04/14/24. Lise Connolly RN Patient is requesting a referral to palliative care. If agreeable please review and sign the orders. Thank you Rae Manzo RN documented in this encounter [facility] 04-07-2024 Telephone encounter Note Patient is requesting a referral to palliative care. If agreeable please review and sign the orders. Thank you Rae Manzo RN [facility] 04-07-2024 Note [facility] 04-07-2024 History of Present illness Narrative .PSYCHOSOCIAL [...] Social Connections: Moderately Isolated (08/23/2023) Received from [facility] Social Connection and Isolation Panel [NHANES] Frequency of Communication with Friends and Family: Twice a week Frequency of Social Gatherings with Friends and Family: Once a week Attends Pentecostal Services: 1 to 4 times per year Active Member of Clubs or Organizations: No Attends Club or Organization Meetings: Never Marital Status: Marital status: Single Parent(s): Mother is living and Father is living Child/Children: Yes. How many? 2 (a son and a daughter) personal care attendant arrangements needed: No Siblings: 1 sister(s) and 1 brother(s) Grandchild(aaron): > 5 Home Health Provider: No Community Services: No Jayshree Identified: Yes Samaritan/Spirituality: Confucianism Are these practices or beliefs that may affect or influence treatment? 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 COBRA Assistance program? No Financial Distress: Yes, What assistance is needed? Other Cannot afford oral nutrition supplements. Dietitian is involved and address this concern. : No FOOD INSECURITY Within the past year, have you worried about how you would buy or obtain food? No LIVING ARRANGEMENTS: Type: Apartment-independent Resides with: Alone Transportation Needs: No Transportation Needs (03/15/2023) Received from [employer] Lack of Transportation (Medical): No Lack [...] Partner Violence: Unknown (10/28/2023) Received from [facility] Safety & Environment Fear of Current or [...] this encounter Health Care Durable Power of Pelts Skinner: Not addressed during this encounter Scanned into [...] Stress: Stress Concern Present (03/15/2023) Received from [employer] [place] [facility] Occupational [facility] - Occupational Stress Questionnaire [...] Patient lives alone in an apartment in [place], [place]. Patient reports a strained relationship with her mother and son. Patient shared stories of her traumatic childhood upbringing. SW provided active listening. Patient is under the care of Dr. Ramires (Psychiatrist) at [facility]. Patient is also seen by a counselor at [facility] and does not recall her name. Patient does not feel that her mental health needs are properly addressed by her current mental health team. Patient shares that a friend from [place] (Fidelina)is in town to support her for [...] Yes CHUCHO Francis documented in this encounter [facility] 04-07-2024 Telephone encounter Note Thank you Rae. I have started the paperwork process to see if Medicaid will cover oral nutrition supplements and left samples of boost at the front desk monitor for her that she should have picked up. Jackie also aware! Erendira Aguillon RD, LD [facility] 04-07-2024 Miscellaneous Notes Thank you Rae. I have started the paperwork process to see if Medicaid will cover oral nutrition supplements and left samples of boost at the front desk monitor for her that she should have picked up. Jackie also aware! Erendira Aguillon RD, LD Patient has requested assistance to pay for Boost supplements. She was newly Dx with gastric cancer, has lost a significant amount of weight, states that she drinks a lot of boost noting that it is too expensive for her. She is established with [employer] (charger operator helper) She has mental health issues and could use a social work referral Rae Manzo RN documented in this encounter [facility] 04-07-2024 Telephone encounter Note Patient has requested assistance to pay for Boost supplements. She was newly Dx with gastric cancer, has lost a significant amount of weight, states that she drinks a lot of boost noting that it is too expensive for her. She is established with Payton (charger operator helper) She has mental health issues and could use a social work referral Rae Manzo RN [facility] 04-07-2024 Telephone encounter Note Sent to Herve Koch to schedule. Thanks. NIRANJAN Adkins [facility] 04-07-2024 Telephone encounter Note Jolanta- Can you find an opening on BRM schedule after his vacation to discuss chemotherapy?? Thank you. NIRANJAN Adkins [facility] 04-07-2024 Telephone encounter Note Pt notified and asks that I call her best friend, Fidelina Watson w/ the results as well. Results reviewed w/ Fidelina as requested. Fidelina verbalizes understanding. Clerical: Pt will need to see BRM when he returns from vacation to discuss chemotherapy. Lise Connolly RN T [facility] Work Phone: 04-07-2024 Telephone encounter Note [...] worsens would consider radiation to the area. [facility] 04-06-2024 Note IMPRESSION: 1. Since 11/18/2013, diffuse progression of [...] CT for findings related to the thorax. Transcribe Date/Time: Apr 06 2024 3:24P Dictated by: GRANT BOYKIN MD This examination was interpreted and the report reviewed and electronically signed by: GRANT BOYKIN MD on Apr 06 2024 4:33PM EST Thank you for allowing us to participate in the care of your patient. Should there be any questions regarding this interpretation, please call [phone]. If you are unable to reach us at the number above, please feel free to contact [facility] eRadiology at [phone]. DIVISION OF RADIOLOGY 04-06-2024 Nurse Note Patient Identification confirmed: yes. Injection given and documented on NOV per provider order. Amirah Koch MA [facility] 04-06-2024 Telephone encounter Note Patient added to b12 today [facility] 04-06-2024 History of Present illness Narrative Radiology Service Progress Note PATIENT NAME: Kaya [...] PATIENT PRESENTS WITH AN IMPLANTABLE OR ATTACHED LOAN INSPECTOR: No RADIOLOGY DEPARTMENT: CT; Exam(s) Completed: Abdomen and Chest PERIPHERAL IV DATA: Site assessment: Clean,Dry and Intact, Site disposition Discontinued SIGNED BY: RT Urszula(R) April 06, 2024 1:34 PM documented in this encounter [facility] 04-06-2024 Note [facility] 04-06-2024 Telephone encounter Note Patient came in today, her PCP has not called her back so she will come back here for her B12 if needed. Please advise as to what is needed to be scheduled. [facility] 04-06-2024 History of Present illness Narrative Radiology Service Progress Note DATE OF SERVICE: [...] Ref Range Status 03/23/2024 49 (L) >=60 mL/min/1.73m Final Comment: Estimated Glomerular Filtration Rate (eGFR) [...] IV SITE APPEARANCE: Clean,Dry and Intact SIGNATURE: Janice Chung RN PATIENT NAME: Kaya Schilling DATE: April 06, 2024 TIME: 1:18 PM RADIOLOGY SERVICE PROGRESS NOTE SERVICE DATE: 04/06/2024 [...] be found using this link: [email or web address] SIGNATURE: RT Urszula(R) PATIENT NAME: Kaya Schilling DATE: April 06, 2024 TIME: 1:33 PM PAGER/CONTACT #: documented in this encounter [facility] 04-06-2024 Note [facility] 04-06-2024 Note [facility] 04-03-2024 Telephone encounter Note Patient still waiting for PCP to call back regarding B12 [facility] 04-03-[address] - 04/03/2024 12:50 PM EDT -aim [...] day -will complete paperwork and send to [facility] for insurance determination -incorporate calorie/protein boosting techniques at meals/snacks -whole milk, full fat dairy, cream, butter/margarine, full fat jennings/dressing/condiments, oils, avocado, peanut butter, etc. documented in this encounter [facility] 04-03-2024 Note [facility] 04-03-2024 History of Present illness Narrative Oncology Nutrition Therapy Initial Assessment I have communicated my name and active licensure. The patient's identity and physical location were verified at the time of this visit. Either the patient or their legal sales and marketing representative has been informed of the risks [...] day -will complete paperwork and send to [facility] for insurance determination -incorporate calorie/protein boosting [...] Dosing Weight: 52.1 kg Estimated kilocalorie needs: 3853-1104 kilocalories determined by 35-40 kcal/kg Estimated protein needs: 63-78 grams determined by 1.2-1.5 g/kg Dosing weight Estimated fluid needs: ~1222-7263 milliliters based on 1 mL per kcal [...] MS, RD, LD documented in this encounter [facility] 03-31-2024 Telephone encounter Note This pt needs another dose of B12 04/21/24 then monthly per result notes that BRBrittany sent me. Per my original message pt may wish to get at her PCP. She was to call to see if they were able to do this. Yvonne Echavarria RN [facility] 03-29-2024 Telephone encounter Note Results printed from Care Everywhere and placed in 's mail folder for review. Lise Connolly RN [facility] Work Phone: 03-29-2024 Miscellaneous Notes Results printed from Care Everywhere and placed in 's mail folder for review. Lise Connolly RN Per Minal @ [facility] Pathology, pt's HER2 FISH analysis is still pending. Lise Connolly RN documented in this encounter [facility] 03-28-2024 Telephone encounter Note Pt called for I need stronger pain meds. 03/23/24 pt had spoke with BRM and pt was referred to PCP for management of pain medications, until follow up with pall med 04/14/24. Discussed with pt. She will call PCP, and was transferred to PSS to see if appt can be moved sooner. BRM: BRIAN Aranda RN [facility] 03-28-2024 Miscellaneous Notes Pt called for [...] BRIAN Aranda RN documented in this encounter [facility] 03-27-2024 Telephone encounter Note Cancelled 4th dose. Roberta Vaughan [facility] 03-27-2024 Telephone encounter Note 3 cycles should be adequate. [facility] 03-27-2024 Telephone encounter Note Patient is already scheduled. Per Dr's instructions, he wanted her scheduled for 4 doses. Should we discontinue the 4th dose? IV iron at [facility] weekly x 4 - 1st infusion in [address] [facility] 03-27-2024 Telephone encounter Note Patient notified [...] wants the additional ones at PCP) . [facility] 03-27-2024 Telephone encounter Note ----- Message from Beto Vivar MD sent at 03/27/2024 9:36 AM EDT ----- Please inform the patient that her B12 level is critically low, she should continue weekly B12 x 4 then monthly. Iron level moderately low. I would recommend weekly Venofer IV x 3 weeks. Please schedule to be started as soon as possible. [facility] 03-27-2024 Telephone encounter Note LOCAL PATIENT Received Fax from [facility] Kaya Schilling is being referred to Jeanne Mccormick M.D., Ph. D. by [address] [facility] [address] Patient diagnosis/Reason for consult: Gastric Adenocarcinoma Referral triage process explained: No Patient will receive a call from Thoracic NPM after triage review with surgeon to discuss any additional testing and/or consults that will be scheduled. Pt will then receive a call from our scheduling office for scheduling. Please call pt at [phone]. Patient was informed consultation could be at [place] or [facility]: No Patient Registration: Registration complete/updated: yes Insurance card(s) scanned in [facility] with in the past year: Yes: Date: 03/23/24 Pt's MyChart is Pending. Ok to communicate to pt via [employer] not asked Medical Records: Records in [facility] (internal CC records): Yes Imaging in [facility] (internal CC records): Yes Care Everywhere - queried yes, downloaded Yes Linked Outside Organizations (list): [facility] OS Records Requested: no Date: N/A Outside Hospital(s) requested records from: n/a Received: yes Uploaded: Yes. Waiting on additional records: No. Missing (list): Records in OS Pathology Slides Requested: no Date: N/A Outside Hospital(s) slides requested from: n/a OS Radiology Imaging Requested: yes Date: N/A Outside Hospital(s) [facility]. Imaging will be received via Electronic Transfer Received: Yes Imaging uploaded: Yes Waiting on additional: No. Missing (list): n/a Additional providers added to Care Teams: Yes Additional Notes/Comments: n/a Enct routed to: Dirk Castano NPM for Triage Leatha Rodriguez clinical administrative coordinator T [facility] 03-24-2024 Telephone encounter Note Pt called the retail loss prevention investigator service last night for pain. Called to discuss and pt VM full. Plan per BRM OV 03/23/24 [place] PRN pain and pall med referral. Pt is schedule with Taniya Richter 04/14/24. Marley Aranda RN Yg Connolly RN spoke with BRM and he did talk with pt last night. She was encouraged to see PCP, if needed for further pain control, until her scheduled new pt appt with pall med at our facility 04/14/24. Marley Aranda, BORA [facility] 03-24-2024 Miscellaneous Notes Pt called the retail loss prevention investigator service last night for pain. Called to discuss and pt VM full. Plan per BRM OV 03/23/24 [place] PRN pain and pall med referral. Pt is schedule with Taniya Richter 04/14/24. Marley Aranda, RN Yg Connolly RN spoke with BRM and he did talk with pt last night. She was encouraged to see PCP, if needed for further pain control, until her scheduled new pt appt with pall med at our facility 04/14/24. Marley Aranda RN documented in this encounter [facility] 03-23-2024 Nurse Note Patient Identification confirmed: yes. Injection given and documented on NOV per provider order. Amirah Koch MA [facility] 03-23-2024 Telephone encounter Note Per Minal @ [facility] Pathology, pt's HER2 FISH analysis is still pending. Lise Connolly RN [facility] 03-22-2024 Note [facility] 03-22-2024 History of Present illness Narrative PATIENT NAME: Kaya Schilling DATE: 03/23/2024 PRIMARY CARE PHYSICIAN: Kostas Steward DO OTHER PHYSICIANS: Dr. Cong Montano, Dr. Ramires (Psych in [place]) HPI: This is a 59 year old female with recently diagnosed gastric cancer, referred for further management. The patient presented 02/13/2024 to [facility] emergency room for evaluation of left [...] upper quadrant and lower abdomen ., On [place] with relief. Not maarried. 2 children. Family [...] pulmonary disease) (HCC) Diabetes mellitus (adult onset) ([facility]) Gastric carcinoma (HCC) History of broken nose had septoplasty Manic depression ([facility]) Dr. Rees Midline low back pain without [...] and atrophy. PATHOLOGY: 03/02/2024 [facility] Invasive adenocarcinoma, intestinal type, low-grade HER2 2+ (equivocal), FISH pending LABS: Hemoglobin (g/dL) Date Value 03/23/2024 7.6 03/11/2015 13.3 Hematocrit (%) Date Value 03/23/2024 22.5 03/11/2015 39.2 WBC (k/uL) Date Value 03/23/2024 4.75 03/11/2015 6.56 Platelet Count (k/uL) Date Value 03/23/2024 247 03/11/2015 464 RADIOLOGY/OTHER STUDIES: 02/13/2024 Chest CTA ([facility]) Acute pulmonary embolism involving segmental branches of the left upper lobe and interlobar and segmental branches of right middle and lower lobes. 2.6 x 5.6 cm enhancing intraluminal mass along the lesser curvature suspicious for gastric cancer Gastrohepatic ligament lymphadenopathy representing metastasis 11/19/2023 CT abdomen/pelvis ([facility]) Mild wall thickening of the colon [...] (primary diagnosis) The patient presented 02/13/2024 to [facility] emergency room for evaluation of left [...] G89.3 Pain LUQ and lower abd. Continue [place] PRN. Pall med referral. Beto Vivar MD CC: Dr. Cong Montano documented in this encounter [facility] 12-06-2023 Nurse Note Patient Identification confirmed: yes. Injection given and documented on NOV per provider order. Amirah Koch MA documented in this encounter [facility] 12-06-2023 Nurse Note Patient Identification confirmed: yes. Injection given and documented on NOV per provider order. Amirah Koch MA documented in this encounter [facility] 11-17-2023 History of Present illness Narrative [address] [place] [address] Patient: Kaya Schilling Date of : 1965 [...] via Real-time Synchronous Audiovisual Provider Location: [facility] [address] [place] [address] Patient Location: Patient's home Video Visit Consent [...] that there are some limitations compared to tysd-tm-dgym evaluations. The patient consented to the presence of additional virtual and/or in-person participants. We elected to proceed. Problem List Items Addressed This Visit Endocrine Type 2 diabetes mellitus without complication, without long-term current use of insulin ([facility]) Hyperparathyroidism ([facility]) Other Visit Diagnoses Diarrhea of presumed infectious [...] Medical History: Diagnosis Date Bipolar 1 disorder ([facility]) Elevated parathyroid hormone Empty sella ([facility]) Female bladder prolapse Hepatitis C Hypercalcemia Hypothyroidism Manic depression ([facility]) Migraine Scoliosis Past Surgical History: Procedure Laterality [...] complication, without long-term current use of insulin ([facility]) Hyperparathyroidism ([facility]) Other orders - promethazine (PHENERGAN) 12.5 mg tablet; Take 1 tablet (12.5 mg total) by mouth every 8 (eight) hours as needed for nausea or vomiting for up to 5 days. Follow-up: Since her diarrhea symptoms have been persistent for the last week we will check stool pathogen panel and C diff. she agrees to go to [facility] for this. Risks of [...] tolerate PO intake she should call 911. [phone] 20min DAHLIA JANE APRN-CNP 11/20/23 0914 documented in this encounter [facility] 11-11-2023 Miscellaneous Notes Pt calls states she has that new virus called Norovirus. She is feeling better. Told her to try the brat diet documented in this encounter [facility] 11-11-2023 Telephone encounter Note Pt calls states she has that new virus called Norovirus. She is feeling better. Told her to try the brat diet [facility] 11-05-2023 Miscellaneous Notes Pt called and just wanted to let us know she is sick and I told her we are closed and please if drink plenty of water and if she gets worse please go to Local hospital to be checked documented in this encounter [facility] 11-05-2023 Telephone encounter Note Pt called and just wanted to let us know she is sick and I told her we are closed and please if drink plenty of water and if she gets worse please go to Local hospital to be checked [facility] 07-03-2022 Miscellaneous Notes per answering service, pt cx today rv and tx appointments due to being up all night sick will call back to reschedule. documented in this encounter [facility] 06-04-2022 Miscellaneous Notes Patient left a message on my voicemail today to get this appointment scheduled. Call placed to patient, no answer. Left message on voicemail to call back to reschedule. Roberta Vaughan Per Answering Service message patient called requested to cancel this appointment and stated she will call us back to reschedule. Hanna Pop documented in this encounter [facility] 05-29-2022 Miscellaneous Notes Patient is listed on the First Time Treatment List for a non-oncology treatment. No psychosocial assessment is indicated. CHUCHO Francis documented in this encounter [facility] 05-28-2022 Miscellaneous Notes Called Amada Nash spoke with Luisa. She states they have received this referral and their precision farming coordinator will be calling patient soon to schedule. Hanna Pop Records faxed to [facility]. Appointments moved to next (06/04). Called pt, [...] CB Yvonne Echavarria RN ----- Message from Mauro Keenan RN sent at 05/25/2022 8:33 AM EDT ----- ----- Message ----- From: Ignacio Sam MD Sent: 05/23/2022 4:49 PM EDT To: Mauro Keenan RN Please let patient know that she has both B12 and Iron def and will need to have all replaced. Would recommend IV and IM B12 replacement if she is in agreement. She also will need an upper and lower endoscopy to further evaluate as well,. documented in this encounter [facility] 05-26-2022 Miscellaneous Notes Patient scheduled to see you on 06/04/22 for follow up with labs. Please add lab orders. Thanks. Amirah Koch MA documented in this encounter [facility] 05-22-2022 History of Present illness Narrative PATIENT NAME: Kaya Schilling CLINIC NO.: [id number] ATTENDING PHYSICIAN: Ignacio Sam MD DATE OF [...] pulmonary disease) (HCC) Diabetes mellitus (adult onset) ([facility]) History of broken nose had septoplasty Manic depression ([facility]) Dr. Rees Neck pain Pneumonia [...] 11/03/2013 1.21 1.00 - 4.00 k/uL Final [place]% Date Value Ref Range Status 11/03/2013 7.7 % Final Abs [place] Date Value Ref Range Status 11/03/2013 0.36 0.00 - 0.86 k/uL Final Abs Eosin Date Value Ref Range Status 11/03/2013 0.12 0.00 - 0.45 k/uL Final Baso% Date Value Ref Range Status 11/03/2013 0.9 % Final Abs Baso Date Value Ref Range Status 11/03/2013 0.04 0.00 - 0.10 k/uL Final Comment: Performed at [facility] , [address] [place] [address] PATH: IMAGING: ASSESSMENT AND PLAN: Kaya Schilling [...] number below. Ignacio Sam M.D. Hematology/Medical On[facility] [phone] CC: Kostas Steward, I spent a total of 40 minutes on the date of the service which included preparing to see the patient, [id number] patient care, completing clinical documentation, obtaining and/or reviewing separately obtained history, performing a medically appropriate examination, counseling and educating the patient/family/caregiver, and ordering medications, tests, or procedures. documented in this encounter [facility] 04-23-2022 Evaluation note Encounter Date Diagnosis Assessment Notes Apr, Irritable bowel syndrome with constipation (ICD-10 - K58.1) [employer] Other 12-13-2021 Evaluation note* Encounter Date Diagnosis Assessment Notes Treatment Notes Treatment Clinical Notes Aug, Irritable bowel syndrome with constipation (ICD-10 - K58.1) [employer] Other 11-17-2021 Evaluation note* Encounter Date Diagnosis Assessment Notes Treatment Notes Treatment Clinical Notes Jul, Redundant colon (ICD-10 - Q43.8) Jul, Irritable bowel syndrome with constipation (ICD-10 - K58.1) Increase lactuose to 60cc bid Colonoscopy Jul, Elevated alkaline phosphatase level (ICD-10 - R74.8) Jul, History of hepatitis C (ICD-10 - Z86.19) Jul, Diabetes (ICD-10 - E11.9) [employer] Other 09-27-2021 Evaluation note* Encounter Date Diagnosis [...] mellitu s) (ICD-10 - E11.9) She has xag-zqireww-nzoezykrk type 2 diabetes mellitus currently takes oral [...] avoid any calcium and vitamin D supplement. [employer] Other Evaluation noteNo [facility] [employer] Other Evaluation note* Diagnosis Anemia, normocytic normochromic- Primary Anemia, unspecified [facility] Diagnosis Iron deficiency anemia due to chronic blood loss Iron deficiency anemia secondary to blood loss (chronic) Vitamin B12 deficiency anemia due to selective vitamin B12 malabsorption with proteinuria Other vitamin B12 deficiency anemia [facility] Diagnosis Anemia, normocytic normochromic- Primary Anemia, unspecified [facility] Diagnosis Disorder of airway Unspecified disease of respiratory system Airway obstruction, anatomic Other diseases of respiratory system, not elsewhere classified [facility] Diagnosis Acquired hypothyroidism Unspecified hypothyroidism [facility]* Diagnosis Type 2 diabetes mellitus without complication, without long-term current use of insulin ([facility]) [facility] Diagnosis Diarrhea of presumed infectious origin- Primary Weakness Other malaise and fatigue Type 2 diabetes mellitus without complication, without long-term current use of insulin ([facility]) Hyperparathyroidism ([facility]) Hyperparathyroidism, unspecified [facility] Diagnosis Megaloblastic anemia due to vitamin [...] [facility] Severe protein-calorie malnutrition (HCC)- [...] [facility] Diagnosis Palliative care by specialist- [...] (acute) (chronic) [facility] Diagnosis Hypercalcemia of malignancy- Primary Hypercalcemia Megaloblastic anemia due to vitamin B12 deficiency Other vitamin B12 deficiency anemia [facility] Diagnosis Late gastric cancer (HCC)- Primary Malignant neoplasm of stomach, unspecified site Hypercalcemia of malignancy Hypercalcemia Iron deficiency anemia due to chronic blood loss Iron deficiency anemia secondary to blood loss (chronic) B12 deficiency Other B-complex deficiencies Acquired hypothyroidism Unspecified hypothyroidism Cancer related pain Neoplasm related pain (acute) (chronic) [facility] Diagnosis Malignant neoplasm of cardia (HCC)- Primary Malignant neoplasm of cardia Malignant neoplasm of cardia (HCC) Malignant neoplasm of cardia 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) Malignant neoplasm of cardia Cancer related pain Neoplasm related pain (acute) (chronic) Palliative care by specialist Malignant neoplasm of cardia (HCC) Malignant neoplasm of cardia [facility] Diagnosis 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) Malignant neoplasm of cardia Cancer related pain Neoplasm related pain (acute) (chronic) Palliative care by specialist [facility] Diagnosis 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 Malignant neoplasm of cardia [facility] Diagnosis 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 Malignant neoplasm of cardia [facility] Diagnosis Weight loss Loss of weight Anxiety with depression Nausea Nausea alone [facility] Diagnosis 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) Malignant neoplasm of cardia [facility] Diagnosis 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) Malignant neoplasm of cardia documented [facility] Diagnosis 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 Malignant neoplasm of cardia documented in this encounter [facility] general Narrative - Reported* Type Description [...] Surgical History LAPAROSCOPY Hospitalization History SEE ABOVE [employer] Other InstructionsNot on filedocumented in this encounter [employer] SystemInstructionsNot on filedocumented in this encounter [employer] [facility] SystemInstructionsNot on filedocumented in this encounter [facility] SystemReason for referral (narrative)* Diagnostic Procedure Only (Routine) - Closed Specialty Diagnoses / Procedures Referred By Graham gray Referred To Contact CT IMAGING Diagnoses Disorder of airway Airway obstruction, anatomic Procedures CT NECK SOFT TISSUE WO IVCON CT SCAN OF NECK TISSUE Trev Shah MD [address] [place] [address] [place] [address] Referral ID Status Reason Start Date Expiration Date V isits Requested Visits Authorized [id number] Closed Auto-Generat ed Referral Patient Cleared - Admin/Chairm an/Director advise to proceed or did not respond 01/21/2021 03/22/2021 3 3 [facility] for referral (narrative)* Consultation (Routine) - Pending Review Specialty Diagnoses / Procedures Referred By Contsorin t Referred To Contact Home Health Services Diagnoses Weakness Dk oMnge, INSTRUCTIONAL SPECIALIST-TRAFFIC EXPERT [address] [place] [address] [facility] [address] [place] [address] Referral ID Status Reason Start Date Expiration Date Visits Requested Visits Authorized [id number] Pending Review Specialty Services Required 11/18/2023 11/17/2024 1 1 [facility] for referral (narrative)* Diagnostic Procedure Only (Routine) - Open Specialty Diagnoses / Procedures [facility] Referred To Contact MOLECULAR & FUNCTIONAL IMAGING Diagnoses 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) Procedures NM PET/CT SKULL-THIGH INITIAL PET IMAGING CT ATTENUATION SKULL BASE MID-THIGH Beto Vivar MD [address] [place] [address] [place] [address] Molecular & Functional Imaging [address] [place] [address] Referral ID Status Reason Start Date Expiration Date V isits Requested Visits Authorized [id number] Open Auto-Generate d Referral 03/23/2024 04/22/2025 1 1 * MRI/CT (Routine) - Open Specialty Diagnoses / Procedures [facility] Referred To Contact CT IMAGING Diagnoses 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) Procedures CT ABDOMEN W IVCON CT ABDOMEN W/CONTRAST Beto Vivar MD [address] [place] [address] [place] [address] [place] [address] Referral ID Status Reason Start Date Expiration Date V isits Requested Visits Authorized [id number] Open Auto-Generate d Referral 03/23/2024 04/22/2025 1 1 * MRI/CT (Routine) - Open Specialty Diagnoses / Procedures Referred By [facility] Referred To Contact CT IMAGING Diagnoses 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) Procedures CT CHEST W IVCON DIAGNOSTIC COMPUTED TOMOGRAPHY THORAX W/CONTRAST Beto Vivar MD [address] [place] [address] [place] [address] [place] [address] Referral ID Status Reason Start Date Expiration Date V isits Requested Visits Authorized [id number] Open Auto-Generate d Referral 03/23/2024 04/22/2025 1 1 * Consult, Test, Treat (Routine) - Authorized Specialty Diagnoses / Procedures Referred By Contac t Referred To Contact Diagnoses 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) Cancer related pain Procedures CONSULT TO PALLIATIVE CARE OFFICE/OUTPATIENT [facility] 60 MINUTES Beto Vivar MD [address] [place] [address] [place] [address] Referral ID Status Reason Start Date Expiration Date Visits Requested Visits Authorized [id number] Authorized PCP Requested Referral 03/23/2024 03/23/2025 1 1 [facility] for referral (narrative)* Diagnostic Procedure Only (Routine) - Denied Specialty Diagnoses / Procedures Referred By Contac t Referred To Contact MOLECULAR & FUNCTIONAL IMAGING Diagnoses 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) Procedures NM PET/CT SKULL-THIGH INITIAL PET IMAGING CT ATTENUATION SKULL BASE MID-THIGH Beto Vivar MD [address] [place] [address] [place] [address] Molecular & Functional Imaging [address] [place] [address] Referral ID Status Reason Start Date Expiration Date V isits Requested Visits Authorized [id number] Denied Auto-Generat ed Referral Clearance Not Met - Admin/Chairm an/Director Advise to Postpone/Res chedule or Not Proceed 04/28/2024 06/28/2024 1 0 [facility] for visit Narrative* Diagnostic Procedure Only (Routine) - Closed Specialty Diagnoses / Procedures Referred By Contac t Referred To Contact CT IMAGING Diagnoses Disorder of airway Airway obstruction, anatomic Procedures CT NECK SOFT TISSUE WO IVCON CT SCAN OF NECK TISSUE Trev Shah MD [address] [facility] [address] [place] [address] [place] [address] Referral ID Status Reason Start Date Expiration Date V isits Requested Visits Authorized [id number] Closed Auto-Generat ed Referral Patient Cleared - Admin/Chairm an/Director advise to proceed or did not respond 01/21/2021 03/22/[address] [facility] Summary Purpose Family History No Family History Records FoundNo Family History Records FoundNo Family History Records FoundNo Family History Records FoundNo Family History Records FoundNo Family History Records FoundNo Family History Records FoundNo Family History Records FoundNo Family History Records FoundNo Family History Records FoundNo Family History Records Found Advance Directives No Advanced Directives Records Found Date Activated Date Inactivated Comments 05/03/2024 9:15 PM 05/12/2024 1:04 PM Question Answer Comments Full Code Order Discussed With: Patient Date Activated Date Inactivated Comments 05/03/2024 9:15 PM Date Activated Date Inactivated Comments 05/03/2024 9:15 PM Question Answer Comments Full Code Order Discussed With: Patient Date Activated Date Inactivated Comments 05/03/2024 9:15 PM 05/12/2024 1:04 PM Reason for Referral Specialty Diagnoses / Procedures Referred By Contac t Referred To Contact CT IMAGING Diagnoses 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) Procedures CT ABDOMEN W IVCON CT ABDOMEN W/CONTRAST Beto Vivar MD [address] [place] [address] [place] [address] [place] [address] Referral ID Status Reason Start Date Expiration Date V isits Requested Visits Authorized [id number] Closed Auto-Generate d Referral 03/24/2024 05/23/2024 1 1 Specialty Diagnoses / Procedures Referred By Contac t Referred To Contact CT IMAGING Diagnoses 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) Procedures CT CHEST W IVCON DIAGNOSTIC COMPUTED TOMOGRAPHY THORAX W/CONTRAST Beto Vivar MD [address] [place] [address] [address] [place] [id number] [place] [address] Referral ID Status Reason Start Date Expiration Date V isits Requested Visits Authorized [id number] Closed Auto-Generate d Referral 03/24/2024 05/23/2024 1 1 Specialty Diagnoses / Procedures Referred By Contac t Referred To Contact Diagnoses 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) Cancer related pain Lillie Richter, INSTRUCTIONAL SPECIALIST.TRAFFIC EXPERT [address] [place] [address] Referral ID Status Reason Start Date Expiration Date Visits Re quested Visits Authorized [id number] Closed 1 1 Specialty Diagnoses / Procedures Referred By Graham gray Referred To Contact Lillie Richter APRN.TRAFFIC EXPERT [address] [place] [address] Referral ID Status Reason Start Date Expiration Date Visits Re quested Visits Authorized [id number] Closed 1 1 Additional Source Comments INFORMATION SOURCE (unrecogn ized section and content) DATE CREATED AUTHOR 02/27/2021 Naranjo Jack [facility] DATE CREATED AUTHOR AUTHOR'S ORGANIZ ATION 09/03/2022 [facility] DATE CREATED AUTHOR AUTHOR'S ORGANIZ ATION 01/20/2023 [facility] DATE CREATED AUTHOR AUTHOR'S ORGANIZ ATION 04/12/2024 [facility] DATE CREATED AUTHOR AUTHOR'S ORGANIZ ATION 04/23/2024 [facility] DATE CREATED AUTHOR AUTHOR'S ORGANIZ ATION 04/26/2024 [facility] DATE CREATED AUTHOR AUTHOR'S ORGANIZ ATION 04/27/2024 [facility] DATE CREATED AUTHOR AUTHOR'S ORGANIZ ATION 05/03/[address] [facility] DATE CREATED AUTHOR AUTHOR'S ORGANIZ ATION 05/06/2024 [facility] DATE CREATED AUTHOR AUTHOR'S ORGANIZ ATION 05/14/2024 [facility] DATE CREATED AUTHOR AUTHOR'S ORGANIZ ATION 05/21/2024 [facility] REASON FOR VISIT (unrecogniz ed section and content) Reason Comments Anemia Reason Comments Social Work Services Reason Comments Results Reason Comments Lab Orders Reason Comments Appointment Cancelled Reason Comments Patient Update Reason Comments Med Refill Reason Onset Date Comments Med Refill 10/25/2023 Reason Comments Pain Reason Comments Care Coordination HER2 FISH Analysis Specialty Diagnoses / Procedures Referred By Graham gray Referred To Contact Diagnoses Megaloblastic anemia due to vitamin B12 deficiency Iron deficiency anemia due to chronic blood loss Procedures IRON SUCROSE INJECTION PER 1 MG Beto Vivar MD [address] [place] [address] [place] [address] [facility] [address] [place] [address] Referral ID Status Reason Start Date Expiration Date V isits Requested Visits Authorized [id number] Authorized 03/23/2024 09/05/2024 99 99 Reason Comments Nutrition Telephone Reason Comments Patient Question Patient Update Reason Comments External Referrals/resources Reason Comments Care Coordination Scan Results Reason Comments Care Coordination Thoracic Surgery Con sult Reason Comments Patient Question Collections Clerk - Other Reason Comments Palliative Medicine New patient consult Specialty Diagnoses / Procedures Referred By Contac Referred To Contact Diagnoses 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) Cancer related pain Procedures CONSULT TO PALLIATIVE CARE OFFICE/OUTPATIENT NEW HIGH MDM 60 MINUTES Beto Vivar MD [address] [place] [address] [place] [address] Referral ID Status Reason Start Date Expiration Date V isits Requested Visits Authorized [id number] Closed PCP Requested Referral 03/23/2024 03/23/2025 1 1 Reason Comments Medication Problem Reason Comments Care Coordination Stomach pain Specialty Diagnoses / Procedures Referred By [facility] Referred To Contact Diagnoses Hypercalcemia of malignancy Beto Vivar MD [address] [place] [address] [place] [address] [facility] [address] [place] [address] Referral ID Status Reason Start Date Expiration Date V isits Requested Visits Authorized [id number] New Request 04/18/2024 07/17/2024 1 1 Reason [...] Reason Comments Returning Patient's Call Reason Comments Collections Clerk - Other Missed Appointm ent Reason Onset Date Comments Refill Request 04/28/2024 Reason Onset Date Comments Simulation Request Form 05/03/2024 Reason Comments Med Change Request Reason Comments Radiology CT Specialty Diagnoses / Procedures Referred By Contac t Referred To Contact CT IMAGING Diagnoses 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) Procedures CT CHEST W IVCON DIAGNOSTIC COMPUTED TOMOGRAPHY THORAX W/CONTRAST Beto Vivar MD [address] [place] [address] [place] [address] [place] [address] Referral ID Status Reason Start Date Expiration Date V isits Requested Visits Authorized [id number] Closed Auto-Generate d Referral 03/24/2024 05/23/2024 1 1 Reason Comments Radiology [place] Specialty Diagnoses / Procedures Referred By Contac t Referred To Contact MOLECULAR & FUNCTIONAL IMAGING Diagnoses 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) Procedures NM PET/CT SKULL-THIGH INITIAL PET IMAGING CT ATTENUATION SKULL BASE MID-THIGH Beto Vivar MD [address] [place] [address] [place] [address] Molecular & Functional Imaging [address] [place] [address] Referral ID Status Reason Start Date Expiration Date V isits Requested Visits Authorized [id number] Denied Auto-Generat ed Referral Clearance Not Met - Admin/Chairm an/Director Advise to Postpone/Res chedule or Not Proceed 04/28/2024 06/28/2024 1 0 Reason Comments Care Coordination Hospice Referral Reason Comments Care Coordination Discharge Follow Up Call Reason Comments Care Coordination Hospital Admission Reason Comments Symptom Management Reason Comments Care Coordination Pain Request Source Comments (unrecognize d section and content) In the event this informatio n is protected by the Federal Confidentiality of Alcohol and Drug Abuse Patient Records regulations: The Federal rules restrict any use of the information to criminally investigate or prosecute any alcohol or drug abuse patient.[facility] the event this information is protected by the Federal Confidentiality of Alcohol and Drug Abuse Patient Records regulations: The Federal rules restrict any use of the information to criminally investigate or prosecute any alcohol or drug abuse patient.[facility] the event this information is protected by the Federal Confidentiality of Alcohol and Drug Abuse Patient Records regulations: The Federal rules restrict any use of the information to criminally investigate or prosecute any alcohol or drug abuse patient.[facility] the event this information is protected by the Federal Confidentiality of Alcohol and Drug Abuse Patient Records regulations: The Federal rules restrict any use of the information to criminally investigate or prosecute any alcohol or drug abuse patient.[facility] the event this information is protected by the Federal Confidentiality of Alcohol and Drug Abuse Patient Records regulations: The Federal rules restrict any use of the information to criminally investigate or prosecute any alcohol or drug abuse patient.[facility] the event this information is protected by the Federal Confidentiality of Alcohol and Drug Abuse Patient Records regulations: The Federal rules restrict any use of the information to criminally investigate or prosecute any alcohol or drug abuse patient.[facility] the event this information is protected by the Federal Confidentiality of Alcohol and Drug Abuse Patient Records regulations: The Federal rules restrict any use of the information to criminally investigate or prosecute any alcohol or drug abuse patient.[facility] HospitalIn the event this information is protected by the Federal Confidentiality of Alcohol and Drug Abuse Patient Records regulations: The Federal rules restrict any use of the information to criminally investigate or prosecute any alcohol or drug abuse patient.[facility]In the event this information is protected by the Federal Confidentiality of Alcohol and Drug Abuse Patient Records regulations: The Federal rules restrict any use of the information to criminally investigate or prosecute any alcohol or drug abuse patient.[facility]In the event this information is protected by the Federal Confidentiality of Alcohol and Drug Abuse Patient Records regulations: The Federal rules restrict any use of the information to criminally investigate or prosecute any alcohol or drug abuse patient.[facility] HospitalIn the event this information is protected by the Federal Confidentiality of Alcohol and Drug Abuse Patient Records regulations: The Federal rules restrict any use of the information to criminally investigate or prosecute any alcohol or drug abuse patient.[facility] HospitalIn the event this information is protected by the Federal Confidentiality of Alcohol and Drug Abuse Patient Records regulations: The Federal rules restrict any use of the information to criminally investigate or prosecute any alcohol or drug abuse patient.[facility] HospitalIn the event this information is protected by the Federal Confidentiality of Alcohol and Drug Abuse Patient Records regulations: The Federal rules restrict any use of the information to criminally investigate or prosecute any alcohol or drug abuse patient.[facility] HospitalIn the event this information is protected by the Federal Confidentiality of Alcohol and Drug Abuse Patient Records regulations: The Federal rules restrict any use of the information to criminally investigate or prosecute any alcohol or drug abuse patient.[facility] HospitalIn the event this information is protected by the Federal Confidentiality of Alcohol and Drug Abuse Patient Records regulations: The Federal rules restrict any use of the information to criminally investigate or prosecute any alcohol or drug abuse patient.[facility] HospitalIn the event this information is protected by the Federal Confidentiality of Alcohol and Drug Abuse Patient Records regulations: The Federal rules restrict any use of the information to criminally investigate or prosecute any alcohol or drug abuse patient.[facility] HospitalIn the event this information is protected by the Federal Confidentiality of Alcohol and Drug Abuse Patient Records regulations: The Federal rules restrict any use of the information to criminally investigate or prosecute any alcohol or drug abuse patient.[facility] HospitalIn the event this information is protected by the Federal Confidentiality of Alcohol and Drug Abuse Patient Records regulations: The Federal rules restrict any use of the information to criminally investigate or prosecute any alcohol or drug abuse patient.[facility] HospitalIn the event this information is protected by the Federal Confidentiality of Alcohol and Drug Abuse Patient Records regulations: The Federal rules restrict any use of the information to criminally investigate or prosecute any alcohol or drug abuse patient.[facility] HospitalIn the event this information is protected by the Federal Confidentiality of Alcohol and Drug Abuse Patient Records regulations: The Federal rules restrict any use of the information to criminally investigate or prosecute any alcohol or drug abuse patient.[facility] HospitalIn the event this information is protected by the Federal Confidentiality of Alcohol and Drug Abuse Patient Records regulations: The Federal rules restrict any use of the information to criminally investigate or prosecute any alcohol or drug abuse patient.[facility] HospitalIn the event this information is protected by the Federal Confidentiality of Alcohol and Drug Abuse Patient Records regulations: The Federal rules restrict any use of the information to criminally investigate or prosecute any alcohol or drug abuse patient.[facility] HospitalIn the event this information is protected by the Federal Confidentiality of Alcohol and Drug Abuse Patient Records regulations: The Federal rules restrict any use of the information to criminally investigate or prosecute any alcohol or drug abuse patient.[facility] HospitalIn the event this information is protected by the Federal Confidentiality of Alcohol and Drug Abuse Patient Records regulations: The Federal rules restrict any use of the information to criminally investigate or prosecute any alcohol or drug abuse patient.[facility] HospitalIn the event this information is protected by the Federal Confidentiality of Alcohol and Drug Abuse Patient Records regulations: The Federal rules restrict any use of the information to criminally investigate or prosecute any alcohol or drug abuse patient.[facility] HospitalIn the event this information is protected by the Federal Confidentiality of Alcohol and Drug Abuse Patient Records regulations: The Federal rules restrict any use of the information to criminally investigate or prosecute any alcohol or drug abuse patient.[facility] HospitalIn the event this information is protected by the Federal Confidentiality of Alcohol and Drug Abuse Patient Records regulations: The Federal rules restrict any use of the information to criminally investigate or prosecute any alcohol or drug abuse patient.[facility] HospitalIn the event this information is protected by the Federal Confidentiality of Alcohol and Drug Abuse Patient Records regulations: The Federal rules restrict any use of the information to criminally investigate or prosecute any alcohol or drug abuse patient.[facility] HospitalIn the event this information is protected by the Federal Confidentiality of Alcohol and Drug Abuse Patient Records regulations: The Federal rules restrict any use of the information to criminally investigate or prosecute any alcohol or drug abuse patient.[facility] HospitalIn the event this information is protected by the Federal Confidentiality of Alcohol and Drug Abuse Patient Records regulations: The Federal rules restrict any use of the information to criminally investigate or prosecute any alcohol or drug abuse patient.[facility] HospitalIn the event this information is protected by the Federal Confidentiality of Alcohol and Drug Abuse Patient Records regulations: The Federal rules restrict any use of the information to criminally investigate or prosecute any alcohol or drug abuse patient.[facility] HospitalIn the event this information is protected by the Federal Confidentiality of Alcohol and Drug Abuse Patient Records regulations: The Federal rules restrict any use of the information to criminally investigate or prosecute any alcohol or drug abuse patient.[facility] HospitalIn the event this information is protected by the Federal Confidentiality of Alcohol and Drug Abuse Patient Records regulations: The Federal rules restrict any use of the information to criminally investigate or prosecute any alcohol or drug abuse patient.[facility] HospitalIn the event this information is protected by the Federal Confidentiality of Alcohol and Drug Abuse Patient Records regulations: The Federal rules restrict any use of the information to criminally investigate or prosecute any alcohol or drug abuse patient.[facility] HospitalIn the event this information is protected by the Federal Confidentiality of Alcohol and Drug Abuse Patient Records regulations: The Federal rules restrict any use of the information to criminally investigate or prosecute any alcohol or drug abuse patient.[facility] HospitalIn the event this information is protected by the Federal Confidentiality of Alcohol and Drug Abuse Patient Records regulations: The Federal rules restrict any use of the information to criminally investigate or prosecute any alcohol or drug abuse patient.[facility] HospitalIn the event this information is protected by the Federal Confidentiality of Alcohol and Drug Abuse Patient Records regulations: The Federal rules restrict any use of the information to criminally investigate or prosecute any alcohol or drug abuse patient.[facility] HospitalIn the event this information is protected by the Federal Confidentiality of Alcohol and Drug Abuse Patient Records regulations: The Federal rules restrict any use of the information to criminally investigate or prosecute any alcohol or drug abuse patient.[facility] HospitalIn the event this information is protected by the Federal Confidentiality of Alcohol and Drug Abuse Patient Records regulations: The Federal rules restrict any use of the information to criminally investigate or prosecute any alcohol or drug abuse patient.[facility] HospitalIn the event this information is protected by the Federal Confidentiality of Alcohol and Drug Abuse Patient Records regulations: The Federal rules restrict any use of the information to criminally investigate or prosecute any alcohol or drug abuse patient.[facility] HospitalIn the event this information is protected by the Federal Confidentiality of Alcohol and Drug Abuse Patient Records regulations: The Federal rules restrict any use of the information to criminally investigate or prosecute any alcohol or drug abuse patient.[facility] HospitalIn the event this information is protected by the Federal Confidentiality of Alcohol and Drug Abuse Patient Records regulations: The Federal rules restrict any use of the information to criminally investigate or prosecute any alcohol or drug abuse patient.[facility] HospitalIn the event this information is protected by the Federal Confidentiality of Alcohol and Drug Abuse Patient Records regulations: The Federal rules restrict any use of the information to criminally investigate or prosecute any alcohol or drug abuse patient.[facility] HospitalIn the event this information is protected by the Federal Confidentiality of Alcohol and Drug Abuse Patient Records regulations: The Federal rules restrict any use of the information to criminally investigate or prosecute any alcohol or drug abuse patient.[facility] HospitalIn the event this information is protected by the Federal Confidentiality of Alcohol and Drug Abuse Patient Records regulations: The Federal rules restrict any use of the information to criminally investigate or prosecute any alcohol or drug abuse patient.[facility] HospitalIn the event this information is protected by the Federal Confidentiality of Alcohol and Drug Abuse Patient Records regulations: The Federal rules restrict any use of the information to criminally investigate or prosecute any alcohol or drug abuse patient.[facility] HospitalIn the event this information is protected by the Federal Confidentiality of Alcohol and Drug Abuse Patient Records regulations: The Federal rules restrict any use of the information to criminally investigate or prosecute any alcohol or drug abuse patient.[facility] HospitalIn the event this information is protected by the Federal Confidentiality of Alcohol and Drug Abuse Patient Records regulations: The Federal rules restrict any use of the information to criminally investigate or prosecute any alcohol or drug abuse patient.[facility] HospitalIn the event this information is protected by the Federal Confidentiality of Alcohol and Drug Abuse Patient Records regulations: The Federal rules restrict any use of the information to criminally investigate or prosecute any alcohol or drug abuse patient.[facility] HospitalIn the event this information is protected by the Federal Confidentiality of Alcohol and Drug Abuse Patient Records regulations: The Federal rules restrict any use of the information to criminally investigate or prosecute any alcohol or drug abuse patient.[facility] HospitalIn the event this information is protected by the Federal Confidentiality of Alcohol and Drug Abuse Patient Records regulations: The Federal rules restrict any use of the information to criminally investigate or prosecute any alcohol or drug abuse patient.[facility] HospitalIn the event this information is protected by the Federal Confidentiality of Alcohol and Drug Abuse Patient Records regulations: The Federal rules restrict any use of the information to criminally investigate or prosecute any alcohol or drug abuse patient.[facility] HospitalIn the event this information is protected by the Federal Confidentiality of Alcohol and Drug Abuse Patient Records regulations: The Federal rules restrict any use of the information to criminally investigate or prosecute any alcohol or drug abuse patient.[facility] HospitalIn the event this information is protected by the Federal Confidentiality of Alcohol and Drug Abuse Patient Records regulations: The Federal rules restrict any use of the information to criminally investigate or prosecute any alcohol or drug abuse patient.[facility] HospitalIn the event this information is protected by the Federal Confidentiality of Alcohol and Drug Abuse Patient Records regulations: The Federal rules restrict any use of the information to criminally investigate or prosecute any alcohol or drug abuse patient.[facility] HospitalIn the event this information is protected by the Federal Confidentiality of Alcohol and Drug Abuse Patient Records regulations: The Federal rules restrict any use of the information to criminally investigate or prosecute any alcohol or drug abuse patient.[facility] HospitalIn the event this information is protected by the Federal Confidentiality of Alcohol and Drug Abuse Patient Records regulations: The Federal rules restrict any use of the information to criminally investigate or prosecute any alcohol or drug abuse patient.[facility] HospitalIn the event this information is protected by the Federal Confidentiality of Alcohol and Drug Abuse Patient Records regulations: The Federal rules restrict any use of the information to criminally investigate or prosecute any alcohol or drug abuse patient.[facility] HospitalIn the event this information is protected by the Federal Confidentiality of Alcohol and Drug Abuse Patient Records regulations: The Federal rules restrict any use of the information to criminally investigate or prosecute any alcohol or drug abuse patient.[facility] HospitalIn the event this information is protected by the Federal Confidentiality of Alcohol and Drug Abuse Patient Records regulations: The Federal rules restrict any use of the information to criminally investigate or prosecute any alcohol or drug abuse patient.[facility] HospitalIn the event this information is protected by the Federal Confidentiality of Alcohol and Drug Abuse Patient Records regulations: The Federal rules restrict any use of the information to criminally investigate or prosecute any alcohol or drug abuse patient.[facility] HospitalIn the event this information is protected by the Federal Confidentiality of Alcohol and Drug Abuse Patient Records regulations: The Federal rules restrict any use of the information to criminally investigate or prosecute any alcohol or drug abuse patient.[facility] HospitalIn the event this information is protected by the Federal Confidentiality of Alcohol and Drug Abuse Patient Records regulations: The Federal rules restrict any use of the information to criminally investigate or prosecute any alcohol or drug abuse patient.[facility] Care Teams (unrecognized sec tion and content) Food Service Worker Relationship Specialty Start Date End Date Kostas Steward DO [address] [place] [address] PCP - General Family Practice 05/14/22 Food Service Worker Relationship Specialty Start Date End Date Kostas Steward, DO [address] [place] [address] PCP - General Family Practice 05/14/22 Food Service Worker Relationship Specialty Start Date End Date Kostas Steward DO [address] [place] [address] PCP - General Family Medicine 05/14/22 Food Service Worker Relationship Specialty Start Date End Date Kostas Steward, DO [address] [place] [address] PCP - General Family Medicine 05/14/22 Food Service Worker Relationship Specialty Start Date End Date Kostas Steward DO [address] [place] [address] PCP - General Family Medicine 05/14/22 Food Service Worker Relationship Specialty Start Date End Date Kostas Steward, DO [address] [place] [address] PCP - General Family Medicine 05/14/22 Food Service Worker Relationship Specialty Start Date End Date Kostas Steward DO [address] [place] [address] PCP - General Family Medicine 05/14/22 Food Service Worker Relationship Specialty Start Date End Date Conor Herrera PCP - General Family Medicine 10/25/13 05/13/22 Food Service Worker Relationship Specialty Start Date End Date Kostas Steward DO [address] [place] [address] [place] [address] PCP - General Family Medicine 05/28/22 Food Service Worker Relationship Specialty Start Date End Date Kostas Steward DO [address] [place] [address] [place] [address] PCP - General Family Medicine 05/28/22 Food Service Worker Relationship Specialty Start Date End Date Kostas Steward DO [address] [place] [address] [place] [address] PCP - General Family Medicine 05/28/22 Food Service Worker Relationship Specialty Start Date End Date Kostas Steward DO [address] [place] [address] PCP - General Family Medicine 05/14/22 Food Service Worker Relationship Specialty Start Date End Date Kostas Steward DO [address] [place] [address] PCP - General Family Medicine 05/14/22 Food Service Worker Relationship Specialty Start Date End Date Kostas Steward DO [address] [place] [address] PCP - General Family Medicine 05/14/22 Food Service Worker Relationship Specialty Start Date End Date Kostas Steward DO [address] [place] [address] PCP - General Family Medicine 05/14/22 Food Service Worker Relationship Specialty Start Date End Date Kostas Steward DO [address] [place] [address] PCP - General Family Medicine 05/14/22 Belen Carlton MD [address] [place] [address] [address] [place] [address] Hematology/Oncology 03/27/24 Food Service Worker Relationship Specialty Start Date End Date Kostas Steward DO [address] [place] [address] PCP - General Family Medicine 05/14/22 Belen Carlton MD [address] [place] [address] [address] [place] [address] Hematology/Oncology 03/27/24 Food Service Worker Relationship Specialty Start Date End Date Kostas Steward DO [address] [place] [address] PCP - General Family Medicine 05/14/22 Belen Carlton MD [address] [place] [address] [address] [place] [address] Hematology/Oncology 03/27/24 Food Service Worker Relationship Specialty Start Date End Date Kostas Steward DO [address] [place] [address] PCP - General Family Medicine 05/14/22 Belen Carlton MD [address] [place] [address] [address] [place] [address] Hematology/Oncology 03/27/[address] [place] [address] [place] [address] Registered Dietitian Nutrition 04/03/24 Food Service Worker Relationship Specialty Start Date End Date Kostas Steward DO [address] [place] [address] PCP - General Family Medicine 05/14/22 Belen Carlton MD [address] [place] [address] [place] [address] Hematology/Oncology 03/27/[address] [facility] [place] [address] Registered Dietitian Nutrition 04/03/24 Food Service Worker Relationship Specialty Start Date End Date AprilKostas navas DO [address] [place] [address] PCP - General Family Medicine 05/14/22 Belen Carlton MD [address] [place] [address] Hematology/Oncology 03/27/[address] [facility] [place] [address] Registered Dietitian Nutrition 04/03/24 Jackie Silverio LSW Signal Operator Linguist 04/07/24 Food Service Worker Relationship Specialty Start Date End Date AprilKostas navas DO [address], [id number] PCP - General Family Medicine 05/14/22 Belen Carlton MD [address] [place] [address] [place] [address] Hematology/Oncology 03/27/[address] [facility] [place] [address] Registered Dietitian Nutrition 04/03/24 Jackie Silverio LSW Signal Operator Linguist 04/07/24 Food Service Worker Relationship Specialty Start Date End Date AprildionisioKostas navasDO [address] [place] [address] PCP - General Family Medicine 05/14/22 Belen Carlton MD [address] [place] [address] [address] [place] [id number] Hematology/Oncology 03/27/[address] [facility] [place] [address] Registered Dietitian Nutrition 04/03/24 Jackie Silverio LSW Signal Operator Linguist 04/07/24 Food Service Worker Relationship Specialty Start Date End Date Aprilitalia Kostas Conley DO [address] [place] [address] PCP - General Family Medicine 05/14/22 Belen Carlton MD [address] [place] [address] [place], [place] [id number] Hematology/Oncology 03/27/[address] [place] [address] [place] [address] Registered Dietitian Nutrition 04/03/24 Jackie Silverio [facility] Signal Operator Linguist 04/07/24 Food Service Worker Relationship Specialty Start Date End Date Kostas Steward DO [address] [place] [address] PCP - General Family Medicine 05/14/22 Belen Carlton MD [address] [place] [address] [address] [place] [address] Hematology/Oncology 03/27/[address] [facility] [place] [address] Registered Dietitian Nutrition 04/03/24 Jackie Silverio LSW Signal Operator Linguist 04/07/24 Food Service Worker Relationship Specialty Start Date End Date Kostas Steward DO [address] [place] [address] PCP - General Family Medicine 05/14/22 Belen Carlton MD [address] [place] [address] [address] [place] [address] Hematology/Oncology 03/27/[address] [facility] [place] [address] Registered Dietitian Nutrition 04/03/24 Jackie Silverio LSW Signal Operator Linguist 04/07/24 Food Service Worker Relationship Specialty Start Date End Date Kostas Steward DO [address] [place] [address] PCP - General Family Medicine 05/14/22 Belen Carlton MD [address] [place] [address] [address] [place] [address] Hematology/Oncology 03/27/[address] [facility] [address] Registered Dietitian Nutrition 04/03/24 Jackie Silverio LSW Signal Operator Linguist 04/07/24 Food Service Worker Relationship Specialty Start Date End Date Kostas Steward DO [address] [place] [address] PCP - General Family Medicine 05/14/22 Belen Carlton MD [address] [place] [address] [place], [place] [id number] Hematology/Oncology 03/27/[address] [facility] [place] [address] Registered Dietitian Nutrition 04/03/24 Jackie Silverio, SCIENTIFIC SPECIALIST Signal Operator Linguist 04/07/24 Food Service Worker Relationship Specialty Start Date End Date Kostas Steward DO [address] [place] [address] PCP - General Family Medicine 05/14/22 Belen Carlton MD [address] [place] [address] [place] [address] Hematology/Oncology 03/27/[address] [facility] [place] [address] Registered Dietitian Nutrition 04/03/24 Jackie Silverio LSW Signal Operator Linguist 04/07/24 Food Service Worker Relationship Specialty Start Date End Date Kostas Steward DO [address] [place] [address] PCP - General Family Medicine 05/14/22 Belen Carlton MD [address] [place] [address] [place], [place] [id number] Hematology/Oncology 03/27/[address] [facility] [address] Registered Dietitian Nutrition 04/03/24 Jackie Silverio, SCIENTIFIC SPECIALIST Signal Operator Linguist 04/07/24 Food Service Worker Relationship Specialty Start Date End Date Kostas Steward DO [address] [place] [address] PCP - General Family Medicine 05/14/22 Belen Carlton MD [address] [place] [address] Hematology/Oncology 03/27/[address] [facility] [place] [address] Registered Dietitian Nutrition 04/03/24 Jackie Silverio, SCIENTIFIC SPECIALIST Signal Operator Linguist 04/07/24 Food Service Worker Relationship Specialty Start Date End Date AprilKostas navas DO [address] [place] [address] PCP - General Family Medicine 05/14/22 Belen Carlton MD [address] [place] [address] Hematology/Oncology 03/27/[address] [facility] [place] [address] Registered Dietitian Nutrition 04/03/24 Jackie Silverio LSW Signal Operator Linguist 04/07/24 Food Service Worker Relationship Specialty Start Date End Date Kostas Steward DO [address], [facility] PCP - General Family Medicine 05/14/22 Belen Carlton MD [address] [place] [address] [place], [place] [id number] Hematology/Oncology 03/27/[address] [facility] [address] Registered Dietitian Nutrition 04/03/24 Jackie Silverio, SCIENTIFIC SPECIALIST Signal Operator Linguist 04/07/24 Food Service Worker Relationship Specialty Start Date End Date Kostas Steward DO [address] [place] [address] PCP - General Family Medicine 05/14/22 Belen Carlton MD [address] [place] [address] [place], [place] [address] Hematology/Oncology 03/27/[address] [facility] [place] [address] Registered Dietitian Nutrition 04/03/24 Jackie Silverio, SCIENTIFIC SPECIALIST Signal Operator Linguist 04/07/24 Food Service Worker Relationship Specialty Start Date End Date Kostas Steward DO [address] [place] [address] PCP - General Family Medicine 05/14/22 Belen Carlton MD [address] [place] [address] [place], [place] [id number] Hematology/Oncology 03/27/[address] [facility] [address] Registered Dietitian Nutrition 04/03/24 Jackie Silverio SCIENTIFIC SPECIALIST Signal Operator Linguist 04/07/24 Food Service Worker Relationship Specialty Start Date End Date Kostas Steward DO [address] [place] [address] PCP - General Family Medicine 05/14/22 Belen Carlton MD [address] [place] [address] [address] [place] [address] Hematology/Oncology 03/27/[address] [facility] [place] [address] Registered Dietitian Nutrition 04/03/24 Jackie Silverio LSW Signal Operator Linguist 04/07/24 Gisselle Bryant, BERENICE.TRAFFIC EXPERT [address] [facility] [place] [address] Nurse Practitioner Hematology/Oncology 04/20/24 Beto Vivar MD [address] [place] [address] [place] [address] Physician Hematology/Oncology 04/20/24 Lise Connolly, BORA [address] [facility] [address] Specialty Collections Clerk Hematology/Oncology 04/20/24 Food Service Worker Relationship Specialty Start Date End Date Kostas Steward DO [address] [place] [address] PCP - General Family Medicine 05/14/22 Belen Carlton MD [address] [place], [place] [address]y [address] [place], [place] [id number] Hematology/Oncology 03/27/[address] [facility] [place] [address] Registered Dietitian Nutrition 04/03/24 Jackie Silverio LSW Signal Operator Linguist 04/07/24 Gisselle Bryant, BERENICE.TRAFFIC EXPERT [address] [facility] [place] [address] Nurse Practitioner Hematology/Oncology 04/20/24 Beto Vivar MD [address] [place] [address] [place] [address] Physician Hematology/Oncology 04/20/24 Lise Connolly, BORA [address] [facility] [place] [address] Specialty Collections Clerk Hematology/Oncology 04/20/24 Food Service Worker Relationship Specialty Start Date End Date Kostas Steward DO [address] [place] [address] PCP - General Family Medicine 05/14/22 Belen Carlton MD [address] [place], [place] [address]y [address] [place], [place] [id number] Hematology/Oncology 03/27/[address] [place] [address] [place] [address] Registered Dietitian Nutrition 04/03/24 Jackie Silverio LSW Signal Operator Linguist 04/07/24 Gisselle Bryant APRN.TRAFFIC EXPERT [address] [place] [address] [place] [address] Nurse Practitioner Hematology/Oncology 04/20/24 Beto Vivar MD [address] [place] [address] [place] [address] Physician Hematology/Oncology 04/20/24 Lise Connolly, BORA [address] [place] [address] [place] [address] Specialty Collections Clerk Hematology/Oncology 04/20/24 Food Service Worker Relationship Specialty Start Date End Date Kostas Steward DO [address] [place] [address] PCP - General Family Medicine 05/14/22 Belen Carlton MD [address] [place] [address] [address] [place], [place] [id number] Hematology/Oncology 03/27/[address] [facility] [place] [address] Registered Dietitian Nutrition 04/03/24 Jackie Silverio, SCIENTIFIC SPECIALIST Signal Operator Linguist 04/07/24 Gisselle Bryant, INSTRUCTIONAL SPECIALIST.TRAFFIC EXPERT [address] [facility] [place] [address] Nurse Practitioner Hematology/Oncology 04/20/24 Beto Vivar MD [address] [facility] [place] [address] Physician Hematology/Oncology 04/20/24 Lise Connolly, RN [address] [facility] [place] [address] Specialty Collections Clerk Hematology/Oncology 04/20/24 Food Service Worker Relationship Specialty Start Date End Date Kostas Steward DO [address] [place] [phone] PCP - General Family Medicine 05/14/22 Belen Carlton MD [address] [place] [address] [address] [place] [address] Hematology/Oncology 03/27/[address] [facility] [place] [address] Registered Dietitian Nutrition 04/03/24 Jackie Silverio, SCIENTIFIC SPECIALIST Signal Operator Linguist 04/07/24 Gisselle Bryant, INSTRUCTIONAL SPECIALIST.TRAFFIC EXPERT [address] [facility] [place] [address] Nurse Practitioner Hematology/Oncology 04/20/24 Beto Vivar MD [address] [place] [address] [place] [address] Physician Hematology/Oncology 04/20/24 Lise Connolly, BORA [address] [place] [address] [place] [address] Specialty Collections Clerk Hematology/Oncology 04/20/24 April Frye, BORA Specialty Collections Clerk 04/24/24 Lillie Richter, INSTRUCTIONAL SPECIALIST.TRAFFIC EXPERT [address] [place] [address] [place] [address] Hospice & Palliative Medicine 04/24/24 Food Service Worker Relationship Specialty Start Date End Date Kostas Steward DO [address] [place] [address] PCP - General Family Medicine 05/14/22 Belen Carlton MD [address] [place], [place] [address]y [address] [place] [address] Hematology/Oncology 03/27/[address] [place] [address] [place] [address] Registered Dietitian Nutrition 04/03/24 Jackie Silverio LSW Signal Operator Linguist 04/07/24 Gisselle Bryant, INSTRUCTIONAL SPECIALIST.TRAFFIC EXPERT [address] [place] [address] [place] [address] Nurse Practitioner Hematology/Oncology 04/20/24 Beto Vivar MD [address] [place] [address] [place] [address] Physician Hematology/Oncology 04/20/24 Lise Connolly, BORA [address] [place] [address] [place] [address] Specialty Collections Clerk Hematology/Oncology 04/20/24 April Frye RN Specialty Collections Clerk 04/24/24 Lillie Richter, INSTRUCTIONAL SPECIALIST.TRAFFIC EXPERT [address] [place] [address] [place] [address] Hospice & Palliative Medicine 04/24/24 Food Service Worker Relationship Specialty Start Date End Date JeromeKostas navasDO [address] [place] [address] PCP - General Family Medicine 05/14/22 Belen Carlton MD [address] [place] [address] [address] [place] [address] Hematology/Oncology 03/27/[address] [place] [address] [place] [address] Registered Dietitian Nutrition 04/03/24 Jackie Silverio LSW Signal Operator Linguist 04/07/24 Gisselle Bryant, INSTRUCTIONAL SPECIALIST.TRAFFIC EXPERT [address] [place] [address] [place] [address] Nurse Practitioner Hematology/Oncology 04/20/24 Beto Vivar MD [address] [place] [address] [place] [address] Physician Hematology/Oncology 04/20/24 Lise Connolly, BORA [address] [place] [address] [place] [address] Specialty Collections Clerk Hematology/Oncology 04/20/24 April Frye, RN Specialty Collections Clerk 04/24/24 Lillie Richter, INSTRUCTIONAL SPECIALIST.TRAFFIC EXPERT [address] [place] [address] [place] [address] Hospice & Palliative Medicine 04/24/24 Food Service Worker Relationship Specialty Start Date End Date Kostas Steward DO [address] [place] [address] PCP - General Family Medicine 05/14/22 Belen Carlton MD [address] [place] [address] [address] [place] [address] Hematology/Oncology 03/27/[address] [place] [address] [place] [address] Registered Dietitian Nutrition 04/03/24 Jackie Silevrio LSW Signal Operator Linguist 04/07/24 Gisselle Bryant, INSTRUCTIONAL SPECIALIST.TRAFFIC EXPERT [address] [place] [address] [place] [address] Nurse Practitioner Hematology/Oncology 04/20/24 Beto Vivar MD [address] [place] [address] [place] [address] Physician Hematology/Oncology 04/20/24 Lise Connolly, BORA [address] [place] [address] [place] [address] Specialty Collections Clerk Hematology/Oncology 04/20/24 April Frye, RN Specialty Collections Clerk 04/24/24 Lillie Richter, INSTRUCTIONAL SPECIALIST.TRAFFIC EXPERT [address] [place] [address] [place] [address] Hospice & Palliative Medicine 04/24/24 Food Service Worker Relationship Specialty Start Date End Date Kostas Steward DO [address] [place] [address] PCP - General Family Medicine 05/14/22 Belen Carlton MD [address] [place] [address] [address] [place] [address] Hematology/Oncology 03/27/[address] [place] [address] [place] [address] Registered Dietitian Nutrition 04/03/24 Jackie Silverio LSW Signal Operator Linguist 04/07/24 Gisselle Bryant, BERENICE.TRAFFIC EXPERT [address] [place] [address] [place] [address] Nurse Practitioner Hematology/Oncology 04/20/24 Beto Vivar MD [address] [place] [address] [place] [address] Physician Hematology/Oncology 04/20/24 Lise Connolly, BORA [address] [place] [address] [place] [address] Specialty Collections Clerk Hematology/Oncology 04/20/24 April Frye, RN Specialty Collections Clerk 04/24/24 Lillie Richter, INSTRUCTIONAL SPECIALIST.TRAFFIC EXPERT [address] [facility] [place] [address] Hospice & Palliative Medicine 04/24/24 Food Service Worker Relationship Specialty Start Date End Date Kostas Steward JarvisDO [address] [place] [address] PCP - General Family Medicine 05/14/22 Belen Carlton MD [address] [place] [address] [place] [address] Hematology/Oncology 03/27/[address] [facility] [place] [address] Registered Dietitian Nutrition 04/03/24 Jackie Silverio LSW Signal Operator Linguist 04/07/24 Gisselle Bryant, INSTRUCTIONAL SPECIALIST.TRAFFIC EXPERT [address] [facility] [place] [address] Nurse Practitioner Hematology/Oncology 04/20/24 Beto Vivar MD [address] [facility] [place] [address] Physician Hematology/Oncology 04/20/24 Lise Connolly, BORA [address] [facility] [place] [address] Specialty Collections Clerk Hematology/Oncology 04/20/24 April Frye, RN Specialty Collections Clerk 04/24/24 Lillie Richter, INSTRUCTIONAL SPECIALIST.TRAFFIC EXPERT [address] [facility] [place] [address] Hospice & Palliative Medicine 04/24/24 Food Service Worker Relationship Specialty Start Date End Date Kostas Steward DO [address] [place] [address] PCP - General Family Medicine 05/14/22 Belen Carlton MD [address] [place] [address] [place] [address] Hematology/Oncology 03/27/[address] [place] [address] [place] [address] Registered Dietitian Nutrition 04/03/24 Jackie Silverio, SCIENTIFIC SPECIALIST Signal Operator Linguist 04/07/24 Gisselle Bryant, INSTRUCTIONAL SPECIALIST.TRAFFIC EXPERT [address] [place] [address] [place] [address] Nurse Practitioner Hematology/Oncology 04/20/24 Beto Vivar MD [address] [place] [address] [place] [address] Physician Hematology/Oncology 04/20/24 Lise Connolly, BORA [address] [place] [address] [place] [address] Specialty Collections Clerk Hematology/Oncology 04/20/24 April Frye RN Specialty Collections Clerk 04/24/24 Lillie Richter, INSTRUCTIONAL SPECIALIST.TRAFFIC EXPERT [address] [place] [address] [place] [address] Hospice & Palliative Medicine 04/24/24 Food Service Worker Relationship Specialty Start Date End Date Kostas Steward DO [address] [place] [address] PCP - General Family Medicine 05/14/22 Belen Carlton MD [address] [place], [place] [address]y [address] [place] [address] Hematology/Oncology 03/27/[address] [place] [address] [place] [address] Registered Dietitian Nutrition 04/03/24 Jackie Silverio, SCIENTIFIC SPECIALIST Signal Operator Linguist 04/07/24 Gisselle Bryant, INSTRUCTIONAL SPECIALIST.TRAFFIC EXPERT [address] [place] [address] [place] [address] Nurse Practitioner Hematology/Oncology 04/20/24 Beto Vivar MD [address] [facility] [place] [address] Physician Hematology/Oncology 04/20/24 Lise Connolly, BORA [address] [facility] [address] Specialty Collections Clerk Hematology/Oncology 04/20/24 April Frye, BORA Specialty Collections Clerk 04/24/24 Lillie Richter, INSTRUCTIONAL SPECIALIST.TRAFFIC EXPERT [address] [place] [address] [place] [address] Hospice & Palliative Medicine 04/24/24 Food Service Worker Relationship Specialty Start Date End Date Kostas Steward JarvisDO [address] [place] [address] PCP - General Family Medicine 05/14/22 Belen Carlton MD [address] [place] [address] [address] [place] [address] Hematology/Oncology 03/27/[address] [place] [address] [place] [address] Registered Dietitian Nutrition 04/03/24 Jackie Silverio LSW Signal Operator Linguist 04/07/24 Gisselle Bryant, INSTRUCTIONAL SPECIALIST.TRAFFIC EXPERT [address] [facility] [place] [address] Nurse Practitioner Hematology/Oncology 04/20/24 Beto Vivar MD [address] [place] [address] [place] [address] Physician Hematology/Oncology 04/20/24 Lise Connolly, RN [address] [facility] [place] [address] Specialty Collections Clerk Hematology/Oncology 04/20/24 April Frye RN Specialty Collections Clerk 04/24/24 Lillie Richter, INSTRUCTIONAL SPECIALIST.TRAFFIC EXPERT [address] [place] [address] [place] [address] Hospice & Palliative Medicine 04/24/24 Food Service Worker Relationship Specialty Start Date End Date Kostas StewardDO [address] [place] [address] PCP - General Family Medicine 05/14/22 Belen Carlton MD [address] [place] [address] [address]kw[address] [place] [address] Hematology/Oncology 03/27/[address] [place] [address] [place] [address] Registered Dietitian Nutrition 04/03/24 Jackie Silverio LSW Signal Operator Linguist 04/07/24 Gisselle Bryant, INSTRUCTIONAL SPECIALIST.TRAFFIC EXPERT [address] [place] [address] [place] [address] Nurse Practitioner Hematology/Oncology 04/20/24 Beto Vivar MD [address] [place] [address] [place] [address] Physician Hematology/Oncology 04/20/24 Lise Connolly, RN [address] [facility] [address] Specialty Collections Clerk Hematology/Oncology 04/20/24 April Frye, RN Specialty Collections Clerk 04/24/24 Lillie Richter APRN.TRAFFIC EXPERT [address] [place] [address] [place] [address] Hospice & Palliative Medicine 04/24/24 Food Service Worker Relationship Specialty Start Date End Date Kostas Steward DO [address] [place] [address] PCP - General Family Medicine 05/14/22 Belen Carlton MD [address] [place], [place] [address]y [address] [place] [address] Hematology/Oncology 03/27/[address] [place] [address] [place] [address] Registered Dietitian Nutrition 04/03/24 Jackie Silverio LSW Signal Operator Linguist 04/07/24 Gisselle Bryant, BERENICE.TRAFFIC EXPERT [address] [place] [address] [place] [address] Nurse Practitioner Hematology/Oncology 04/20/24 Beto Vivar MD [address] [place] [address] [place] [address] Physician Hematology/Oncology 04/20/24 Lise Connolly, BORA [address] [place] [address] [place] [address] Specialty Collections Clerk Hematology/Oncology 04/20/24 April Frye RN Specialty Collections Clerk 04/24/24 Lillie Richter, INSTRUCTIONAL SPECIALIST.TRAFFIC EXPERT [address] [facility] [place] [address] Hospice & Palliative Medicine 04/24/24 Food Service Worker Relationship Specialty Start Date End Date Kostas Steward DO [address] [place] [address] PCP - General Family Medicine 05/14/22 Belen Carlton MD [address] [place] [address] [place] [id number] Hematology/Oncology 03/27/[address] [facility] [place] [address] Registered Dietitian Nutrition 04/03/24 Food Service Worker Relationship Specialty Start Date End Date BinKostasDO [address] [place] [address] PCP - General Family Medicine 05/14/22 Belen Carlton MD [address] [place] [address] [place] [address] Hematology/Oncology 03/27/[address] [facility] [place] [address] Registered Dietitian Nutrition 04/03/24 Jackie Silverio LSW Signal Operator Linguist 04/07/24 Gisselle Bryant APRN.TRAFFIC EXPERT [address] [facility] [place] [address] Nurse Practitioner Hematology/Oncology 04/20/24 eBto Vivar MD [address] [facility] [place] [address] Physician Hematology/Oncology 04/20/24 Lise Connolly, BORA [address] [place] [address] [place] [address] Specialty Collections Clerk Hematology/Oncology 04/20/24 April Frye RN Specialty Collections Clerk 04/24/24 Lillie Richter, INSTRUCTIONAL SPECIALIST.TRAFFIC EXPERT [address] [place] [address] [place] [address] Hospice & Palliative Medicine 04/24/24 Food Service Worker Relationship Specialty Start Date End Date Kostas StewardDO [address] [place] [address] PCP - General Family Medicine 05/14/22 Belen Carlton MD [address] [place], [place] [address]y [address] [place] [address] Hematology/Oncology 03/27/[address] [place] [address] [place] [address] Registered Dietitian Nutrition 04/03/24 Jackie Silverio LSW Signal Operator Linguist 04/07/24 Gisselle Bryant, INSTRUCTIONAL SPECIALIST.TRAFFIC EXPERT [address] [place] [address] [place] [address] Nurse Practitioner Hematology/Oncology 04/20/24 Beto Vivar MD [address] [place] [address] [place] [address] Physician Hematology/Oncology 04/20/24 Lise Connolly, BORA [address] [place] [address] [place] [address] Specialty Collections Clerk Hematology/Oncology 04/20/24 April Frye, RN Specialty Collections Clerk 04/24/24 Lillie Richter, INSTRUCTIONAL SPECIALIST.TRAFFIC EXPERT [address] [place] [address] [place] [id number] Hospice & Palliative Medicine 04/24/24 Food Service Worker Relationship Specialty Start Date End Date Kostas Steward DO [address] [place] [address] PCP - General Family Medicine 05/14/22 Belen Carlton MD [address] [place] [address] Pky [address] [place] [address] Hematology/Oncology 03/27/[address] [place] [address] [place] [address] Registered Dietitian Nutrition 04/03/24 Jackie Silverio LSW Signal Operator Linguist 04/07/24 Gisselle Bryant, INSTRUCTIONAL SPECIALIST.TRAFFIC EXPERT [address] [place] [address] [place] [address] Nurse Practitioner Hematology/Oncology 04/20/24 Beto Vivar MD [address] [place] [address] [place] [address] Physician Hematology/Oncology 04/20/24 Lise Connolly, BORA [address] [place] [address] [place] [address] Specialty Collections Clerk Hematology/Oncology 04/20/24 April Frye, RN Specialty Collections Clerk 04/24/24 Lillie Richter, INSTRUCTIONAL SPECIALIST.TRAFFIC EXPERT [address] [place] [address] [place] [address] Hospice & Palliative Medicine 04/24/24 Food Service Worker Relationship Specialty Start Date End Date Kostas Steward DO [address] [place] [address] PCP - General Family Medicine 05/14/22 Belen Carlton MD [address] [place] [address] [address]kw[address] [place], [place] [id number] Hematology/Oncology 03/27/[address] [place] [address] [place] [address] Registered Dietitian Nutrition 04/03/24 Jackie Silverio LSW Signal Operator Linguist 04/07/24 Gisselle Bryant APRN.TRAFFIC EXPERT [address] [place] [address] [place] [address] Nurse Practitioner Hematology/Oncology 04/20/24 Beto Vivar MD [address] [place] [address] [place] [address] Physician Hematology/Oncology 04/20/24 Lise Connolly, BORA [address] [place] [address] [place] [address] Specialty Collections Clerk Hematology/Oncology 04/20/24 April Frye, RN Specialty Collections Clerk 04/24/24 Lillie Richter, INSTRUCTIONAL SPECIALIST.TRAFFIC EXPERT [address] [place] [address] [place] [address] Hospice & Palliative Medicine 04/24/24 FOR RECORDS [...] BE BASED ON THE PRIMARY CLINICAL RECORDS. [employer] [facility]. provides no warranty or guarantee of the accuracy or completeness of information in this document.
--- NOTE | 2024-05-21 22:52 | XR_ITS ---
The [address] [address] Patient Name: KAYA SCHILLING MRN: [id number] date: 1965 Sex: F Assigned Patient Location: ER Current Patient Location: ED.MAIN Accession/Order Number: [id number] Exam Date: 05/21/2024 23:00 Report Date: 05/21/2024 23:36 At the request of: FOX DUFF Procedure: XR ankle LT min 3V EXAM: XR foot LT min 3V, XR ankle LT min 3V HISTORY: The patient is a 59-year-old female, fall COMPARISON: 03/06/2023. FINDINGS: The left foot is radiographically negative with no evidence of fracture, dislocation, joint space narrowing, or other acute osseous or articular abnormalities. No acute or ununited fractures are seen within or around the ankle joint. The ankle mortise is intact and uniform. The syndesmosis is maintained. No soft tissue swelling is seen. XR/XR ankle LT min 3V IMPRESSION: No radiographic findings of acute trauma of the left foot or left ankle. Electronically authenticated by: RICHAR KENT Date: 05/21/2024 23:36
--- NOTE | 2024-05-21 22:52 | XR_ITS ---
The [address] [address] Patient Name: KAYA SCHILLING MRN: [id number] date: 1965 Sex: F Assigned Patient Location: ER Current Patient Location: ED.MAIN Accession/Order Number: [id number] Exam Date: 05/21/2024 23:00 Report Date: 05/21/2024 23:36 At the request of: FOX DUFF Procedure: XR foot LT min 3V EXAM: XR foot LT min 3V, XR ankle LT min 3V HISTORY: The patient is a 59-year-old female, fall COMPARISON: 03/06/2023. FINDINGS: The left foot is radiographically negative with no evidence of fracture, dislocation, joint space narrowing, or other acute osseous or articular abnormalities. No acute or ununited fractures are seen within or around the ankle joint. The ankle mortise is intact and uniform. The syndesmosis is maintained. No soft tissue swelling is seen. XR/XR foot LT min 3V IMPRESSION: No radiographic findings of acute trauma of the left foot or left ankle. Electronically authenticated by: RICHAR KENT Date: 05/21/2024 23:36
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
[2024-05-21] MEDS: HYDROCODONE/ACET 5-325 MG TABLET 1 TAB PO (23:15)
[2024-05-22 00:30] VITALS: BP 144/70; PULSE 75; O2SAT 99
== END 2024-05-22 00:30 | disposition home or self-care (01) ==
PROVIDERS: Emergency Provider Emergency Medicine; PCP Family Medicine
DX: S93.402A Sprain of unspecified ligament of left ankle, initial encounter (principal); W19.XXXA Unspecified fall, initial encounter; C16.9 Malignant neoplasm of stomach, unspecified; C79.9 Secondary malignant neoplasm of unspecified site
CPT/HCPCS: 73610; 73630; 99284

== ENCOUNTER 2024-06-13 13:02 | Emergency (ER) | payer OTHER, SELFPAY ==
[2024-06-13] VITALS (33 sets, daily range): BP systolic 138–164; BP diastolic 87–112; PULSE 76–105; TEMP 36.4; O2SAT 83–99; BMI 18.3
--- OUTSIDE RECORDS SUMMARY | 2024-06-13 13:22 | XMS_ITS | CCD ---
Demographics Address [address] [place] [address] Home Phone Mobile Phone Preferred Language en Marital Status Single Restoration Affiliation Unknown Race White Ethnic Group Not or Lati no Author Organization [facility] Care Team Providers Care Crate Opener Name Role Phone Brynn Holliday Unavailable Neo [...] Unavailable ARTURO, DR KARINA Hart Admitting Unavailable RANCHO CUCAMONGA, DR JUSTINA Cardoso Consulting Unavailable ARTURO, DR [...] DR KOSTAS Hough Attending Unavailable FURLONG, DR KSOTAS Hough Admitting Unavailable Conor Herrera Primary Care Provider Unavailabl e Furlong Kostas FRAUSTO Primary Care Provider [phone] FurloKostas navas DO Primary Care Provider Belen Carlton MD Unavailable [phone] Unavailable [phone] Jackie Art Unavailable Unavailable Dajuan Whaley Attending Unavailab Dajuan Condon Admitting Unavailab Shaikh Fox Primary Care Unavailable Manny POURED CONCRETE WALL TECHNICIAN.Gisselle [place] Unavailable Beto Vivar MD Unavailable [phone] Lise Connolly RN Unavailable [phone] April Frye RN Unavailable Unavail lisa Richter POURED CONCRETE WALL TECHNICIAN.Lillie [place] Unavailable KOSTAS STEWARD Referring Unavailable FURLOELOISE, KOSTAS Hough Primary Care Unavailable APRILLONG, KOSTAS Hough Referring Unavailable FURLONG, KOSTAS Hough Primary Care Unavailable BETO VIVAR Referring Unavailable FURLONG, KOSTAS G Primary Care Unavailable BETO VIVAR Referring Unavailable FURLONG, KOSTAS G Primary Care Unavailable ILA MARQUEZ Admitting Unavailable ILA MARQUEZ Attending Unavailable MONICA, NATALIE Referring Unavailable JESSICA NEFF Consulting Unavailable DESTINEE KUMAR Consulting Unavailable JOSE PATEL Consulting Unavailable JENNY [...] Unavailable FURLONG, KOSTAS G Primary Care Unavailable JORGE ROY Attending Unavailable FURLONG, KOSTAS JARVIS Primary Care Unavailab JORGE Garcia Attending Unavailable FURLONG, KOSTAS JARVIS Primary Care Unavailab le FURLONG, KOSTAS JARVIS Primary Care Unavailab JORGE Garcia Attending Unavailable FURLONG, KOSTAS JARVIS Primary Care Unavailab le MAURICIO, HAMMAD Referring Unavailable MAURICIO, HAMMAD Attending Unavailable FURLONG, KOSTAS JARVIS Primary Care Unavailab le FURLONG, KOSTAS JARVIS Primary Care Unavailab le FURLONG, KOSTAS JARVIS Primary Care Unavailab le FURLONG, KOSTAS JARVIS Primary Care Unavailab BETO Kimball Attending Unavailable FURLONG, KOSTAS JARVIS Primary Care Unavailab BETO Kimball Referring Unavailable BETO VIVAR Referring Unavailable FURLONG, KOSTAS JARVIS Primary Care Unavailab BETO Kimball Referring Unavailable FURLONG, KOSTAS JARVIS Primary Care Unavailab le MAURICIO, HAMMAD Attending Unavailable FURLONG, KOSTAS JARVIS Primary Care Unavailab JENNIFER Mcmahan Referring Unavailable FURLONG, KOSTAS JARVIS Primary Care Unavailab JORGE Garcia Attending Unavailable FURLONG, KOSTAS JARVIS Primary Care Unavailab le FURLONG, KOSTAS JARVIS Primary Care Unavailab le FURLONG, KOSTAS JARVIS Primary Care Unavailab MARIA LUISA Breaux Admitting Unavailable MAURO MATUTE Attending Unavailable ILA MARQUEZ Referring Unavailable ERENDIRA AGUILLON Attending Unavailreed e FURLONG, KOSTAS JARVIS Primary Care Unavailab [...] Unavailable FURLONG, KOSTAS JARVIS Primary Care Unavailab LILLIE Duffy Attending UnavailBETO Perea Referring Unavailable FURLONG, KOSTAS [...] FURLONG, KOSTAS JARVIS Primary Care Unavailab le APRILLONG, KOSTAS JARVIS Referring Unavailab BETO Kimball Attending Unavailable JORGE ROY Attending Unavailable FURLONG, KOSTAS JARVIS Primary Care Unavailab le Allergies Allergy Classification Reported Allergen(s) Allergy Type Date of Onset Reaction(s) Facility Acetaminophen / oxyCODONE (1 source) Acetaminophen / oxyCODONE Drug Allergy 5 GI Upset [facility] Butorphanol (1 source) Butorphanol Drug Allergy 4 Vomiting [facility] (8 sources) Butorphanol; Translations: [Stadol] Drug Allergy 4 migraines, vomiting [facility] Rep[facility] (20 sources) Acetaminophen / oxyCODONE; Translations: [OXYCODONE-ACETAM INOPHEN] Drug Allergy 5 GI Upset [facility] (20 sources) Butorphanol; Translations: [BUTORPHANOL TARTRATE] Drug Allergy 4 Vomiting [facility] (2 sources) Acetaminophen / oxyCODONE Drug Allergy [facility] (8 sources) vortioxetine; Translations: [VORTIOXETINE] Drug Allergy [facility] [employer] [facility] (1 source) Butorphanol Drug Allergy [address] 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 Patient should start on May 22, 2024. 4 Patch 05/22/2024 06/21/2024 Active Start: 04-24-2024 End: 05-24-2024 apply 1 dose transdermal route every week [...] polyneuropathy, without long-term current use of insulin ([facility]) Take 1 tablet (10 mg total) by mouth in the morning. 30 tablet 5 03/18/2023 Active dexamethasone 2 mg oral tablet (2 sources) Corticosteroid Start: 05-11-2024 End: 05-15-2024 take 1 tablet by mouth once daily [...] spray(s) nasal route three times daily Ipratropium [place] 0.06 % 2 sprays in each nostril [...] and Norepinephrine Reuptake Inhibitor Start: 018 End: take 1 tablet by mouth once [...] tablet (20 sources) l-Thyroxine Start: 05-11-20 End: 06-10-20 take 1 tablet by mouth once daily [...] 0 10/18/2013 05/22/2022 Discontinued (Changing Therapy/Dosage Form) [place] Carbonat e 150 MG 1 capsule Orally [...] pantoprazole 40 mg delayed release oral tablet (20 sources) Proton Pump Inhibitor Start: 05-11-20 End: 08-09-20 24 take 1 tablet by mouth once daily in the morning pantoprazole DR (PROTONIX) 40 mg tablet Take 1 tablet by mouth daily at 6 am. 30 tablet 2 05/11/2024 08/09/2024 Active take 1 tablet by corey th once daily as needed Pantoprazole Sodium 20 MG 1 tablet Orall y Once a day prn Active polyethylene glycol 3350 38443 mg powder for oral solution (20 sources) [...] mouth every 6 hours as needed. sennosides, senior care 8.6 mg oral tablet (14 sources) Start: 05-11-2024 End: 08-09-2024 take 1 [...] (20 sources) Opioid Agonist Start: 05-02-2024 End: 05-26-2024 take 1 tablet by mouth every six hours as needed for pain HYDROcodone-Aceta minophen (NORCO) 10-325 mg per tablet Indications: Cancer related pain Take 1 tablet by mouth every 6 hours as needed for pain for up to 7 days. 28 tablet 05/19/2024 05/26/2024 Start: 04-14-2024 End: 04-29-2024 take 1 tablet [...] Take 0.1 mg by mouth twice daily. dexAMETHasone 10 mg in NaCl 0.9% 50 mL (DECADRON) (1 source) Start: End: 09-19-2 024 10 mg, INTRAVENOUS, ONCE, 1 dose, On [facility] 05/25/24 at 1230, Refrigerate. docusate sodium 100 mg oral capsule (20 sources) Start: End: docusate sodium (COLACE) 100 [...] Comment on above: TAKE 1 CAPSULE BY [facility] 3 TIMES A DAY iron sucrose 300 [...] Receptor Antagonist Start: 09-17-19 14 End: 03-23-20 METOCLOPRAMIDE HCL 10 mg tablet [...] 1 capsule by mouth once alejandra ly 2 ml ondansetron 2 mg/ml injection (17 sources) Serotonin-3 Receptor Antagonist Start: 05-25-2024 End: 05-25-2024 8 mg, INTRAVENOUS, ONCE, 1 dose, On [facility] 05/25/24 at 1230 Start: 04-21-2024 End: 05-11-2024 take 1 tablet by mouth every eight hours as needed ondansetron (ZOFRAN) 8 mg tablet Take 1 tablet by mouth every 8 hours as needed for nausea/vomiting. 90 tablet 1 04/21/2024 05/11/2024 Discontinued pamidronate 30 mg in NaCl 0.9% 500 mL (AREDIA) (1 source) Start: 04-18-2024 End: 04-18-2024 pamidronate 30 mg in NaCl 0.9% 500 mL (AREDIA) 1000 ml sodium chloride 9 mg/ml injection (1 source) Start: 05-25-2024 End: 05-25-2024 1,000 mL/hr (rounded to 999 mL/hr), INTRAVENOUS, Administer over 1 Hours, ONCE, 1 dose, On [facility] 05/25/24 at 1230 vitamin b12 1 mg/ml injectable solution (6 sources) Vitamin B12 Start: 05-25-2024 End: 05-25-2024 inject 1 dose by intramuscular injection once 1,000 mcg, INTRAMUSCULAR, ONCE, 1 dose, On [facility] 05/25/24 at 1230 Start: 04-18-2024 End: 04-18-2024 cyanocobalamin 1,000 mcg inj ection Start: 04-14-2024 End: 04-14-2024 cyanocobalamin 1,000 mcg inj ection Start: 04-06-2024 End: 04-06-2024 cyanocobalamin 1,000 mcg inj ection Start: 03-30-2024 End: 03-30-2024 cyanocobalamin 1,000 mcg inj ection Start: 03-23-2024 End: 03-23-2024 cyanocobalamin 1,000 mcg inj ection Problems Active Problems Problem Classification Problem Date Documented Da te Episodic/Chronic Abdominal pain (2 sources) Abdominal pain; Translations: [Left upper quadrant pain] Onset: Episodic Acute and unspecified renal failure (17 sources) Acute renal failure syndrome; Translations: [Acute kidney failure, unspecified] Onset: 4 05-07-2024 Episodic Acute posthemorrhagic anemia (17 sources) Acute posthemorrhagic anemia; Translations: [Acute posthemorrhagic anemia] Onset: 4 05-08-2024 Episodic Anxiety disorders (20 sources) Posttraumatic stress disorder; Translations: [Post-traumatic stress disorder, unspecified] Onset: 2 02-21-2015 Chronic Attention-deficit, conduct, and disruptive behavior disorders (17 sources) Psychosomatic factor in physical condition; Translations: [...] Resolved: 1 Chronic Fluid and electrolyte disorders (18 sources) Hypokalemia; Translations: [Hypokalemia] Onset: 4 05-03-2024 Episodic Gastrointestinal hemorrhage (20 sources) Hematemesis; Translations: [Gastrointestinal hemorrhage, unspecified] Onset: [...] Neoplasms of unspecified nature or uncertain behavior (20 sources) Neoplasm of stomach ; Translations: [Neoplasm [...] 02-21-2015 Chronic Other aftercare (5 sources) Other penitentiary (current) drug therapy; Translations: [OTH 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 TEACHER CURRENT DRUG THERAPY] Onset: 2 Episodic Other aftercare (1 source) care home (current) use of oral hypoglycemic drugs; Translations: [CUSTODIAL USE ORAL HYPOGLYCEMIC DX] Onset: 3 Episodic Other aftercare (4 sources) Under care of palliative care physician; Translations: [Encounter for palliative care] 04-14-2024 Episodic Other aftercare (2 sources) Drug therapy finding; Translations: [terminal superintendent (current) use of opiate analgesic] 04-14-2024 Episodic Other aftercare (18 sources) Patient encounter status; Translations: [Encounter for palliative care] Onset: 4 05-03-2024 Episodic Other aftercare (17 sources) Long-term current use of lithium; Translations: [Other penitentiary (current) drug therapy] Onset: 4 05-07-2024 Episodic [...] DIARRHEA] Onset: 3 Chronic Other gastrointestinal disorders (20 sources) Constipation; Translations: [Constipation, unspecified] Onset: 4 [...] disorders] 01-29-2021 Episodic Other nervous system disorders (20 sources) Pain due to neoplastic disease; Translations: [...] Episodic Other nutritional; endocrine; and metabolic disorders (18 sources) Decrease in appetite; Translations: [Anorexia] Onset: [...] medical condition] 04-14-2024 Chronic Residual codes; unclassified (17 sources) Insomnia; Translations: [Other insomnia] Onset: 4 [...] 3 Chronic Respiratory failure; insufficiency; arrest (adult) (17 sources) Acute respiratory failure; Translations: [Acute respiratory failure, unspecified whether with hypoxia or hypercapnia] Onset: 4 05-08-2024 Episodic Secondary malignancies (18 sources) Secondary malignant neoplasm of bone; Translations: [...] [PROC AND TX NOT CARRIED OUT PT [facility]] Onset: 09-29-2022 Episodic Residual codes; unclassified [...] Test Name Value Interpretation Reference Range Facility [facility] 05-31-2024 [facility] Normal [facility] 05-30-2024 [facility] Normal [facility] CBC W Auto Differential pane l (Bld)on 05-25-2024 Basophils (Bld) [#/Vol] [facility] Basophils/100 WBC (Bld) 0.2 % [facility] Differential cell count method Nom (Bld) Auto [facility] Eosinophils (Bld) [#/Vol] 0.80 10*3/uL High [facility] Eosinophils/100 WBC (Bld) 14.6 % [facility] Erythrocyte distribution width (RBC) [Ratio] 15.6 % High 11.5 - 15.0 % [facility] Hematocrit (Bld) [Volume fraction] 33.1 % Low 36.0 - 46.0 % [facility] Hemoglobin (Bld) [Mass/Vol] 11.4 g/dL Low 11.5 - 15.5 g/dL [facility] Immature granulocytes (Bld) [#/Vol] [facility] Immature granulocytes/100 WBC (Bld) 0.2 % [facility] Interpretation and review of laboratory results Abnormal [facility] Lymphocytes (Bld) [#/Vol] 0.60 10*3/uL Low [facility] Lymphocytes/100 WBC (Bld) 10.9 % [facility] MCH (RBC) [Entitic mass] 33.2 pg 26.0 - 34.0 pg [facility] MCHC (RBC) [Mass/Vol] 34.4 g/dL 30.5 - 36.0 g/dL [facility] MCV (RBC) [Entitic vol] 96.5 fL 80.0 - 100.0 fL [facility] Monocytes (Bld) [#/Vol] 0.35 10*3/uL [facility] Monocytes/100 WBC (Bld) 6.4 % [facility] Neutrophils (Bld) [#/Vol] 3.72 10*3/uL [facility] Neutrophils/100 WBC (Bld) 67.7 % [facility] Nucleated RBC (Bld) [#/Vol] NINF [facility] Nucleated RBC/100 WBC (Bld) [Ratio] 0.0 % /100 WBC [facility] Platelet mean volume (Bld) [Entitic vol] 8.7 fL Low 9.0 - 12.7 fL [facility] Platelets (Bld) [#/Vol] 197 10*3/uL [facility] RBC (Bld) [#/Vol] 3.43 10*6/uL Low 3.90 - 5.2 0 m/uL [facility] WBC (Bld) [#/Vol] 5.49 10*3/uL [facility] Basophils (Bld) [#/Vol] 10*3/uL Normal <0.11 [facility] Comment on above: Order Comment: Speci men Type: BLOOD SPECIMENOrdering Facility: [facility] Address: [address] [place] [address] Performed By: #### 5 7021-8 ####[facility] LABCLIA [id number] [place] [address] Basophils/100 WBC (Bld) 0.2 % Normal [facility] Comment on above: Order Comment: Speci men Type: BLOOD SPECIMENOrdering Facility: [facility] Address: [address] [place] [address] Performed By: #### 5 7021-8 ####[facility] LABCLIA [id number] [place] [address] Differential cell count method Nom (Bld) Auto Normal [facility] Comment on above: Order Comment: Speci men Type: BLOOD SPECIMENOrdering Facility: [facility] Address: [address] [place] [address] Performed By: #### 5 7021-8 ####[facility] LABCLIA [id number] [place] [address] Eosinophils (Bld) [#/Vol] 0.80 10*3/uL High <0.46 [facility] Comment on above: Order Comment: Speci men Type: BLOOD SPECIMENOrdering Facility: [facility] Address: [address] [place] [address] Performed By: #### 5 7021-8 ####[facility] LABCLIA [id number] [place] [address] Eosinophils/100 WBC (Bld) 14.6 % Normal [facility] Comment on above: Order Comment: Speci men Type: BLOOD SPECIMENOrdering Facility: [facility] Address: [address] [place] [address] Performed By: #### 5 7021-8 ####[facility] LABCLIA [id number] [place] [address] Erythrocyte distribution width (RBC) [Ratio] 15.6 % High 11.5-15.0 [facility] Comment on above: Order Comment: Speci men Type: BLOOD SPECIMENOrdering Facility: [facility] Address: [address] [place] [address] Performed By: #### 5 7021-8 ####[facility] LABCLIA [id number] [place] [address] Hematocrit (Bld) [Volume fraction] 33.1 % Low 36.0-46.0 [facility] Comment on above: Order Comment: Speci men Type: BLOOD SPECIMENOrdering Facility: [facility] Address: [address] [place] [address] Performed By: #### 5 7021-8 ####[facility] LABCLIA [id number] [place] [address] Hemoglobin (Bld) [Mass/Vol] 11.4 g/dL Low 11.5-15.5 [facility] Comment on above: Order Comment: Speci men Type: BLOOD SPECIMENOrdering Facility: [facility] Address: [address] [place] [address] Performed By: #### 5 7021-8 ####[facility] LABCLIA [id number] [place] [address] Immature granulocytes (Bld) [#/Vol] 10*3/uL Normal <0.10 [facility] Comment on above: Order Comment: Speci men Type: BLOOD SPECIMENOrdering Facility: [facility] Address: [address] [place] [address] Performed By: #### 5 7021-8 ####[facility] LABCLIA [id number] [place] [address] Immature granulocytes/100 WBC (Bld) 0.2 % Normal [facility] Comment on above: Order Comment: Speci men Type: BLOOD SPECIMENOrdering Facility: [facility] Address: [address] [place] [address] Performed By: #### 5 7021-8 ####[facility] LABCLIA [id number] [place] [address] Lymphocytes (Bld) [#/Vol] 0.60 10*3/uL Low 1.00-4.00 [facility] Comment on above: Order Comment: Speci men Type: BLOOD SPECIMENOrdering Facility: [facility] Address: [address] [place] [address] Performed By: #### 5 7021-8 ####[facility] LABCLIA [id number] [place] [address] Lymphocytes/100 WBC (Bld) 10.9 % Normal [facility] Comment on above: Order Comment: Speci men Type: BLOOD SPECIMENOrdering Facility: [facility] Address: [address] [place] [address] Performed By: #### 5 7021-8 ####[facility] LABCLIA [id number] [place] [address] MCH (RBC) [Entitic mass] 33.2 pg Normal 26.0-34.0 [facility] Comment on above: Order Comment: Speci men Type: BLOOD SPECIMENOrdering Facility: [facility] Address: [address] [place] [address] Performed By: #### 5 7021-8 ####[facility] LABCLIA [id number] [place] [address] MCHC (RBC) [Mass/Vol] 34.4 g/dL Normal 30.5-36.0 [facility] Comment on above: Order Comment: Speci men Type: BLOOD SPECIMENOrdering Facility: [facility] Address: [address] [place] [address] Performed By: #### 5 7021-8 ####[facility] LABCLIA [id number] [place] [address] MCV (RBC) [Entitic vol] 96.5 fL Normal 80.0-100.0 [facility] Comment on above: Order Comment: Speci men Type: BLOOD SPECIMENOrdering Facility: [facility] Address: [address] [place] [address] Performed By: #### 5 7021-8 ####[facility] LABCLIA [id number] [place] [address] Monocytes (Bld) [#/Vol] 0.35 10*3/uL Normal <0.87 [facility] Comment on above: Order Comment: Speci men Type: BLOOD SPECIMENOrdering Facility: [facility] Address: [address] [place] [address] Performed By: #### 5 7021-8 ####[facility] LABCLIA [id number] [place] [address] Monocytes/100 WBC (Bld) 6.4 % Normal [facility] Comment on above: Order Comment: Speci men Type: BLOOD SPECIMENOrdering Facility: [facility] Address: [address] [place] [address] Performed By: #### 5 7021-8 ####[facility] LABCLIA [id number] [place] [address] Neutrophils (Bld) [#/Vol] 3.72 10*3/uL Normal 1.45-7.50 [facility] Comment on above: Order Comment: Speci men Type: BLOOD SPECIMENOrdering Facility: [facility] Address: [address] [place] [address] Performed By: #### 5 7021-8 ####[facility] LABCLIA [id number] [place] [address] Neutrophils/100 WBC (Bld) 67.7 % Normal [facility] Comment on above: Order Comment: Speci men Type: BLOOD SPECIMENOrdering Facility: [facility] Address: [address] [place] [address] Performed By: #### 5 7021-8 ####[facility] LABCLIA [id number] [place] [address] Nucleated RBC (Bld) [#/Vol] 10*3/uL Normal <0.01 [facility] Comment on above: Order Comment: Speci men Type: BLOOD SPECIMENOrdering Facility: [facility] Address: [address] [place] [address] Performed By: #### 5 7021-8 ####[facility] LABCLIA [id number] [place] [address] Nucleated RBC/100 WBC (Bld) [Ratio] 0.0 /100 WBC Normal [facility] Comment on above: Order Comment: Speci men Type: BLOOD SPECIMENOrdering Facility: [facility] Address: [address] [place] [address] Performed By: #### 5 7021-8 ####[facility] LABIA [id number] [place] [address] Platelet mean volume (Bld) [Entitic vol] 8.7 fL Low 9.0-12.7 [facility] Comment on above: Order Comment: Speci men Type: BLOOD SPECIMENOrdering Facility: [facility] Address: [address] [place] [address] Performed By: #### 5 7021-8 ####[facility] LABCLIA [id number] [place] [address] Platelets (Bld) [#/Vol] 197 10*3/uL Normal 150-400 [facility] Comment on above: Order Comment: Speci men Type: BLOOD SPECIMENOrdering Facility: [facility] Address: [address] [place] [address] Performed By: #### 5 7021-8 ####[facility] LABIA [id number] [place] [address] RBC (Bld) [#/Vol] 3.43 10*6/uL Low 3.90-5.20 [facility] Comment on above: Order Comment: Speci men Type: BLOOD SPECIMENOrdering Facility: [facility] Address: [address] [place] [address] Performed By: #### 5 7021-8 ####[facility] LABIA [id number] [place] [address] WBC (Bld) [#/Vol] 5.49 10*3/uL Normal 3.70-11.00 [facility] Comment on above: Order Comment: Speci men Type: BLOOD SPECIMENOrdering Facility: [facility] Address: [address] [place] [address] Performed By: #### 5 7021-8 ####[facility] LABIA [id number] [place] [address] CNOVSPon 05-25-2024 CNOVSP Normal [facility] CNPNon 05-25-2024 CNPN Normal [facility] Comprehensive metabolic 2000 panelOrdered By: Gerardo Rabago on 05-25-2024 Albumin [Mass/Vol] 3.3 g/dL Low 3.9 - 4.9 g/dL [facility] ALP [Catalytic activity/Vol] 204 U/L High 34 - 123 U/L [facility] ALT [Catalytic activity/Vol] 15 U/L 7 - 38 U/L [facility] Anion gap [Moles/Vol] 8 mmol/L 8 - 15 mmol/L [facility] AST [Catalytic activity/Vol] 25 U/L 13 - 35 U/L [facility] Bilirubin [Mass/Vol] 0.4 mg/dL 0.2 - 1.3 mg/dL [facility] Calcium [Mass/Vol] 10.6 mg/dL High 8.5 - 10. 2 mg/dL [facility] Chloride [Moles/Vol] 99 mmol/L 98 - 107 mmol/L [facility] CO2 [Moles/Vol] 21 mmol/L Low 22 - 30 mmol/L [facility] Creatinine [Mass/Vol] 1.12 mg/dL High 0.58 - 0.96 mg/dL [facility] GFR/1.73 sq M.predicted among non-blacks MDRD (S/P/Bld) [Vol rate/Area] 56 mL/min/{1.73_m2} Low - PINF [facility] Comment on above: Estimated Glomerular Filtration Rate [...] not accurately reflect actual GFR. Glucose [Mass/Vol] 194 mg/dL High 74 - 99 mg/dL [facility] Comment on above: The [place] [employer] (ADA) provides guidance for [...] Standards of Medical Care in Diabetes 2016, [place] [employer]. Diabetes Care. 2016.39(Suppl 1). Interpretation and review of laboratory results Abnormal [facility] Potassium [Moles/Vol] 3.7 mmol/L 3.7 - 5.1 mmol/L [facility] Protein [Mass/Vol] 6.1 g/dL Low 6.3 - 8.0 g/dL [facility] Sodium [Moles/Vol] 128 mmol/L Low 136 - 144 mmol/L [facility] Urea nitrogen [Mass/Vol] 16 mg/dL 7 - 21 mg/dL [facility] Comprehensive metabolic 2000 panelon 05-25-2024 Albumin [Mass/Vol] 3.3 g/dL Low 3.9-4.9 [facility] Comment on above: Order Comment: Speci men Type: BLOOD SPECIMENOrdering Facility: [facility] Address: [address] [place] [address] Performed By: #### 2 4323-8 ####[facility] LABCLIA [id number] [place] [address] ALP [Catalytic activity/Vol] 204 U/L High 34-123 [facility] Comment on above: Order Comment: Speci men Type: BLOOD SPECIMENOrdering Facility: [facility] Address: [address] [place] [address] Performed By: #### 2 4323-8 ####[facility] LABCLIA [id number] [place] [address] ALT [Catalytic activity/Vol] 15 U/L Normal 7-38 [facility] Comment on above: Order Comment: Speci men Type: BLOOD SPECIMENOrdering Facility: [facility] Address: [address] [place] [address] Performed By: #### 2 4323-8 ####[facility] LABCLIA [id number] [place] [address] Anion gap [Moles/Vol] 8 mmol/L Normal 8-15 [facility] Comment on above: Order Comment: Speci men Type: BLOOD SPECIMENOrdering Facility: [facility] Address: [address] [place] [address] Performed By: #### 2 4323-8 ####[facility] LABCLIA [id number] [place] [address] AST [Catalytic activity/Vol] 25 U/L Normal 13-35 [facility] Comment on above: Order Comment: Speci men Type: BLOOD SPECIMENOrdering Facility: [facility] Address: [address] [place] [address] Performed By: #### 2 4323-8 ####[facility] LABCLIA [id number] [place] [address] Bilirubin [Mass/Vol] 0.4 mg/dL Normal 0.2-1.3 [facility] Comment on above: Order Comment: Speci men Type: BLOOD SPECIMENOrdering Facility: [facility] Address: [address] [place] [address] Performed By: #### 2 4323-8 ####[facility] LABCLIA [id number] [place] [address] Calcium [Mass/Vol] 10.6 mg/dL High 8.5-10.2 [facility] Comment on above: Order Comment: Speci men Type: BLOOD SPECIMENOrdering Facility: [facility] Address: [address] [place] [address] Performed By: #### 2 4323-8 ####[facility] LABCLIA [id number] [place] [address] Chloride [Moles/Vol] 99 mmol/L Normal 98-107 [facility] Comment on above: Order Comment: Speci men Type: BLOOD SPECIMENOrdering Facility: [facility] Address: [address] [place] [address] Performed By: #### 2 4323-8 ####[facility] LABCLIA [id number] [place] [address] CO2 [Moles/Vol] 21 mmol/L Low 22-30 [facility] Comment on above: Order Comment: Speci men Type: BLOOD SPECIMENOrdering Facility: [facility] Address: [address] [place] [address], [place] [address] Performed By: #### 2 4323-8 ####[facility] LABCLIA [id number] [place] [address] Creatinine [Mass/Vol] 1.12 mg/dL High 0.58-0.96 [facility] Comment on above: Order Comment: Speci men Type: BLOOD SPECIMENOrdering Facility: [facility] Address: [address] [place] [address] Performed By: #### 2 4323-8 ####[facility] LABCLIA [id number] [place] [address] Creatinine and Glomerular filtration rate.predicted panel (S/P/Bld) 56 mL/min/1.73m??? Low >=60 [facility] Comment on above: Order Comment: Speci men Type: BLOOD SPECIMENOrdering Facility: [facility] Address: [address] [place] [address] Result Comment: Carmen mated Glomerular Filtration Rate [...] actual GFR. Performed By: #### 2 4323-8 ####[facility] LABCLIA [id number] [place] [address] Glucose [Mass/Vol] 194 mg/dL High 74-99 [facility] Comment on above: Order Comment: Speci men Type: BLOOD SPECIMENOrdering Facility: [facility] Address: [address] [place] [id number] Result Comment: The [place] Diabetes Association (ADA) provides guidance for cutoff [...] Standards of Medical Care in Diabetes 2016, [place] [employer]. Diabetes Care. 2016.39(Suppl 1). Performed By: #### 2 4323-8 ####[facility] LABCLIA [id number] [place] [address] Potassium [Moles/Vol] 3.7 mmol/L Normal 3.7-5.1 [facility] Comment on above: Order Comment: Speci men Type: BLOOD SPECIMENOrdering Facility: [facility] Address: [address] [place] [address] Performed By: #### 2 4323-8 ####[facility] LABCLIA [id number] [place] [address] Protein [Mass/Vol] 6.1 g/dL Low 6.3-8.0 [facility] Comment on above: Order Comment: Speci men Type: BLOOD SPECIMENOrdering Facility: [facility] Address: [address] [place] [address] Performed By: #### 2 4323-8 ####[facility] LABCLIA [id number] [place] [address] Sodium [Moles/Vol] 128 mmol/L Low 136-144 [facility] Comment on above: Order Comment: Speci men Type: BLOOD SPECIMENOrdering Facility: [facility] Address: [address] [place] [address] Performed By: #### 2 4323-8 ####[facility] LABCLIA [id number] [place] [address] Urea nitrogen [Mass/Vol] 16 mg/dL Normal 7-21 [facility] Comment on above: Order Comment: Speci men Type: BLOOD SPECIMENOrdering Facility: [facility] Address: [address] [place] [address] Performed By: #### 2 4323-8 ####[facility] LABCLIA [id number] [place] [address] CNPNon 05-24-2024 CNPN Normal [facility] CNPNon 05-22-2024 CNPN Normal [facility] CNPNon 05-17-2024 CNPN Normal [facility] CNPNon 05-16-2024 CNPN Normal [facility] CNPNon 05-15-2024 CNPN Normal [facility] CASE MANAGEMon 05-12-2024 CASE MANAGEM Normal [facility] CNDSon 05-12-2024 CNDS Normal [facility] CNPNon 05-12-2024 CNPN Normal [facility] ALLIED HEALTHon 05-11-2024 ALLIED HEALTH Normal [facility] CASE MANAGEMon 05-11-2024 CASE MANAGEM Normal [facility] CBC panel Auto (Bld)on 05-11 Erythrocyte distribution width (RBC) [Ratio] 18.2 % High 11.5-15.0 [facility] Comment on above: Order Comment: Speci men Type: BLOOD SPECIMENOrdering Facility: [facility] Address: [address] [place] [address] Performed By: #### 5 8410-2 ####[facility] LABIA [id number] [place] [address] [place] Hematocrit (Bld) [Volume fraction] 24.2 % Low 36.0-46.0 [facility] Comment on above: Order Comment: Speci men Type: BLOOD SPECIMENOrdering Facility: [facility] Address: [address] [place] [address] Performed By: #### 5 8410-2 ####[facility] LABCLIA [id number] [place] [address] [place] Hemoglobin (Bld) [Mass/Vol] 7.8 g/dL Low 11.5-15.5 [facility] Comment on above: Order Comment: Speci men Type: BLOOD SPECIMENOrdering Facility: [facility] Address: [address] [place] [address] Performed By: #### 5 8410-2 ####[facility] LABCLIA [id number] [place] [address] [place] MCH (RBC) [Entitic mass] 32.4 pg Normal 26.0-34.0 [facility] Comment on above: Order Comment: Speci men Type: BLOOD SPECIMENOrdering Facility: [facility] Address: [address] [place] [address] Performed By: #### 5 8410-2 ####[facility] LABIA [id number] [place] [address] [place] MCHC (RBC) [Mass/Vol] 32.2 g/dL Normal 30.5-36.0 [facility] Comment on above: Order Comment: Speci men Type: BLOOD SPECIMENOrdering Facility: [facility] Address: [address] [place] [address] Performed By: #### 5 8410-2 ####[facility] LABIA [id number] [place] [address] [place] MCV (RBC) [Entitic vol] 100.4 fL High 80.0-100.0 [facility] Comment on above: Order Comment: Speci men Type: BLOOD SPECIMENOrdering Facility: [facility] Address: [address] [place] [address] Performed By: #### 5 8410-2 ####[facility] LABCLIA [id number] [place] [address] [place] Nucleated RBC (Bld) [#/Vol] 10*3/uL Normal <0.01 [facility] Comment on above: Order Comment: Speci men Type: BLOOD SPECIMENOrdering Facility: [facility] Address: [address] [place] [address] Performed By: #### 5 8410-2 ####[facility] LABCLIA [id number] [place] [address] [place] Platelet mean volume (Bld) [Entitic vol] 9.9 fL Normal 9.0-12.7 [facility] Comment on above: Order Comment: Speci men Type: BLOOD SPECIMENOrdering Facility: [facility] Address: [address] [place] [address] Performed By: #### 5 8410-2 ####[facility] LABIA [id number] [place] [address] [place] Platelets (Bld) [#/Vol] 241 10*3/uL Normal 150-400 [facility] Comment on above: Order Comment: Speci men Type: BLOOD SPECIMENOrdering Facility: [facility] Address: [address] [place] [address] Performed By: #### 5 8410-2 ####[facility] [id number] [place] [address] [place] RBC (Bld) [#/Vol] 2.41 10*6/uL Low 3.90-5.20 [facility] Comment on above: Order Comment: Speci men Type: BLOOD SPECIMENOrdering Facility: [facility] Address: [address] [place] [address] Performed By: #### 5 8410-2 ####[facility] [id number] [place] [address] [place] WBC (Bld) [#/Vol] 5.70 10*3/uL Normal 3.70-11.00 [facility] Comment on above: Order Comment: Speci men Type: BLOOD SPECIMENOrdering Facility: [facility] Address: [address] [place] [address] Performed By: #### 5 8410-2 ####[facility] [id number] [place] [address] [place] CONSULT PROGon 05-11-2024 CONSULT PROG Normal [facility] Magnesium SerPl-mCncon 05-11 Magnesium [Mass/Vol] 2.5 mg/dL High 1.7-2.3 [facility] Comment on above: Order Comment: Speci men Type: BLOOD SPECIMENOrdering Facility: [facility] Address: [address] [place] [address] Result Comment: Resu lts may be falsely increased due to interference from hemolysis. Suggest reorder as clinically indicated. Performed By: #### 1 9123-9 ####[facility] LABCLIA [id number] [place] [address] [place] NURSING PROGon 05-11-2024 NURSING PROG Normal [facility] Renal function 2000 panelon 05-11-2024 Albumin [Mass/Vol] 2.8 g/dL Low 3.9-4.9 [facility] Comment on above: Order Comment: Speci men Type: BLOOD SPECIMENOrdering Facility: [facility] Address: [address] [place] [address] Performed By: #### 2 4362-6 ####[facility] LABCLIA [id number] [place] [address] [place] Anion gap [Moles/Vol] 8 mmol/L Normal 8-15 [facility] Comment on above: Order Comment: Speci men Type: BLOOD SPECIMENOrdering Facility: [facility] Address: [address] [place] [address] Performed By: #### 2 4362-6 ####[facility] LABCLIA [id number] [place] [id number] [place] Calcium [Mass/Vol] 10.1 mg/dL Normal 8.5-10.2 [facility] Comment on above: Order Comment: Speci men Type: BLOOD SPECIMENOrdering Facility: [facility] Address: [address] [place] [address] Performed By: #### 2 4362-6 ####[facility] LABCLIA [id number] [place] [address] [place] Chloride [Moles/Vol] 108 mmol/L High 98-107 [facility] Comment on above: Order Comment: Speci men Type: BLOOD SPECIMENOrdering Facility: [facility] Address: [address] [place] [address] Performed By: #### 2 4362-6 ####[facility] LABIA [id number] [place] [address] [place] CO2 [Moles/Vol] 21 mmol/L Low 22-30 [facility] Comment on above: Order Comment: Speci men Type: BLOOD SPECIMENOrdering Facility: [facility] Address: [address] [place] [address] Performed By: #### 2 4362-6 ####[facility] [id number] [place] [address] [place] Creatinine [Mass/Vol] 0.94 mg/dL Normal 0.58-0.96 [facility] Comment on above: Order Comment: Speci men Type: BLOOD SPECIMENOrdering Facility: [facility] Address: [address] [place] [address] Performed By: #### 2 4362-6 ####[facility] [id number] [place] [address] [place] Creatinine and Glomerular filtration rate.predicted panel (S/P/Bld) 70 mL/min/1.73m??? Normal >=60 [facility] Comment on above: Order Comment: Speci men Type: BLOOD SPECIMENOrdering Facility: [facility] Address: [address] [place] [address] Result Comment: Carmen mated Glomerular Filtration Rate [...] actual GFR. Performed By: #### 2 4362-6 ####[facility] LABIA [id number] [place] [address] [place] Glucose [Mass/Vol] 132 mg/dL High 74-99 [facility] Comment on above: Order Comment: Speci men Type: BLOOD SPECIMENOrdering Facility: [facility] Address: [address] [place] [address] Result Comment: The [place] Diabetes Association (ADA) provides guidance for cutoff [...] Standards of Medical Care in Diabetes 2016, [place] [employer]. Diabetes Care. 2016.39(Suppl 1). Performed By: #### 2 4362-6 ####[facility] LABIA [id number] [place] [address] [place] Phosphate [Mass/Vol] 2.3 mg/dL Low 2.7-4.8 [facility] Comment on above: Order Comment: Speci men Type: BLOOD SPECIMENOrdering Facility: [facility] Address: [address] [place] [address] Performed By: #### 2 4362-6 ####[facility] [id number] [place] [address] [place] Potassium [Moles/Vol] 3.8 mmol/L Normal 3.7-5.1 [facility] Comment on above: Order Comment: Neelimai men Type: BLOOD SPECIMENOrdering Facility: [facility] Address: [address] [place] [address] Performed By: #### 2 4362-6 ####[facility] LABCLIA [id number] [place] [address] [place] Sodium [Moles/Vol] 137 mmol/L Normal 136-144 [facility] Comment on above: Order Comment: Speci men Type: BLOOD SPECIMENOrdering Facility: [facility] Address: [address] [place] [address] Performed By: #### 2 4362-6 ####[facility] LABCLIA [id number] [place] [address] [place] Urea nitrogen [Mass/Vol] 20 mg/dL Normal 7-21 [facility] Comment on above: Order Comment: Speci men Type: BLOOD SPECIMENOrdering Facility: [facility] Address: [address] [place] [address] Performed By: #### 2 4362-6 ####[facility] LABCLIA [id number] [place] [id number] [place] ALLIED HEALTHon 05-10-2024 ALLIED HEALTH Normal [facility] CASE MANAGEMon 05-10-2024 CASE MANAGEM Normal [facility] CBC panel Auto (Bld)on 05-10 Erythrocyte distribution width (RBC) [Ratio] 19.1 % High 11.5-15.0 [facility] Comment on above: Order Comment: Speci men Type: BLOOD SPECIMENOrdering Facility: [facility] Address: [address] [place] [address] Performed By: #### 5 8410-2 ####[facility] LABIA [id number] [place] [address] [place] Hematocrit (Bld) [Volume fraction] 22.3 % Low 36.0-46.0 [facility] Comment on above: Order Comment: Speci men Type: BLOOD SPECIMENOrdering Facility: [facility] Address: [address] [place] [address] Performed By: #### 5 8410-2 ####[facility] LABIA [id number] [place] [address] [place] Hemoglobin (Bld) [Mass/Vol] 7.4 g/dL Low 11.5-15.5 [facility] Comment on above: Order Comment: Speci men Type: BLOOD SPECIMENOrdering Facility: [facility] Address: [address] [place] [address] Performed By: #### 5 8410-2 ####[facility] LABIA [id number] [place] [address] [place] MCH (RBC) [Entitic mass] 33.3 pg Normal 26.0-34.0 [facility] Comment on above: Order Comment: Speci men Type: BLOOD SPECIMENOrdering Facility: [facility] Address: [address] [place] [address] Performed By: #### 5 8410-2 ####[facility] [id number] [place] [address] [place] MCHC (RBC) [Mass/Vol] 33.2 g/dL Normal 30.5-36.0 [facility] Comment on above: Order Comment: Speci men Type: BLOOD SPECIMENOrdering Facility: [facility] Address: [address] [place] [address] Performed By: #### 5 8410-2 ####[facility] [id number] [place] [address] [place] MCV (RBC) [Entitic vol] 100.5 fL High 80.0-100.0 [facility] Comment on above: Order Comment: Speci men Type: BLOOD SPECIMENOrdering Facility: [facility] Address: [address] [place] [address] Performed By: #### 5 8410-2 ####[facility] LABIA [id number] [place] [address] [place] Nucleated RBC (Bld) [#/Vol] 10*3/uL Normal <0.01 [facility] Comment on above: Order Comment: Speci men Type: BLOOD SPECIMENOrdering Facility: [facility] Address: [address] [place] [address] Performed By: #### 5 8410-2 ####[facility] LABIA [id number] [place] [address] [place] Platelet mean volume (Bld) [Entitic vol] 10.1 fL Normal 9.0-12.7 [facility] Comment on above: Order Comment: Speci men Type: BLOOD SPECIMENOrdering Facility: [facility] Address: [address] [place] [address] Performed By: #### 5 8410-2 ####[facility] LABIA [id number] [place] [address] [place] Platelets (Bld) [#/Vol] 223 10*3/uL Normal 150-400 [facility] Comment on above: Order Comment: Speci men Type: BLOOD SPECIMENOrdering Facility: [facility] Address: [address] [place] [address] Performed By: #### 5 8410-2 ####[facility] LABIA [id number] [place] [address] [place] RBC (Bld) [#/Vol] 2.22 10*6/uL Low 3.90-5.20 [facility] Comment on above: Order Comment: Speci men Type: BLOOD SPECIMENOrdering Facility: [facility] Address: [address] [place] [address] Performed By: #### 5 8410-2 ####[facility] LABIA [id number] [place] [address] [place] WBC (Bld) [#/Vol] 4.54 10*3/uL Normal 3.70-11.00 [facility] Comment on above: Order Comment: Speci men Type: BLOOD SPECIMENOrdering Facility: [facility] Address: [address] [place] [address] Performed By: #### 5 8410-2 ####[facility] LABCLIA [id number] [place] [address] [place] CNOVon 05-10-2024 CNOV Normal [facility] CONSULT PROGon 05-10-2024 CONSULT PROG Normal [facility] CONSULT PROG Normal [facility] CONSULT PROG Normal [facility] Comprehensive metabolic 2000 panelon 05-10-2024 Albumin [Mass/Vol] 2.5 g/dL Low 3.9-4.9 [facility] Comment on above: Order Comment: Speci men Type: BLOOD SPECIMENOrdering Facility: [facility] Address: [address] [place] [address] Performed By: #### 2 4323-8, , 82415-9 ####[facility] LABCLIA [id number] [place] [address] [place] ALP [Catalytic activity/Vol] 128 U/L High 34-123 [facility] Comment on above: Order Comment: Speci men Type: BLOOD SPECIMENOrdering Facility: [facility] Address: [address] [place] [address] Performed By: #### 2 4323-8, 91985-4, 88234-9 ####[facility] LABCLIA [id number] [place] [address] [place] ALT [Catalytic activity/Vol] 10 U/L Normal 7-38 [facility] Comment on above: Order Comment: Speci men Type: BLOOD SPECIMENOrdering Facility: [facility] Address: [address] [place] [address] Performed By: #### 2 4323-8, 76182-1, 53048-9 ####[facility] LABCLIA [id number] [place] [address] [place] Anion gap [Moles/Vol] 10 mmol/L Normal 8-15 [facility] Comment on above: Order Comment: Speci men Type: BLOOD SPECIMENOrdering Facility: [facility] Address: [address] [place] [address] Performed By: #### 2 4323-8, 79004-5, 84498-5 ####[facility] LABCLIA [id number] [place] [address] [place] AST [Catalytic activity/Vol] 18 U/L Normal 13-35 [facility] Comment on above: Order Comment: Speci men Type: BLOOD SPECIMENOrdering Facility: [facility] Address: [address] [place] [address] Performed By: #### 2 4323-8, , 44072-4 ####[facility] LABCLIA [id number] [place] [address] [place] Bilirubin [Mass/Vol] 0.4 mg/dL Normal 0.2-1.3 [facility] Comment on above: Order Comment: Speci men Type: BLOOD SPECIMENOrdering Facility: [facility] Address: [address] [place] [address] Performed By: #### 2 4323-8, , 83623-3 ####[facility] LABCLIA [id number] [place] [address] [place] Calcium [Mass/Vol] 9.1 mg/dL Normal 8.5-10.2 [facility] Comment on above: Order Comment: Speci men Type: BLOOD SPECIMENOrdering Facility: [facility] Address: [address] [place] [address] Performed By: #### 2 4323-8, , 84671-5 ####[facility] LABCLIA [id number] [place] [id number] [place] Chloride [Moles/Vol] 111 mmol/L High 98-107 [facility] Comment on above: Order Comment: Speci men Type: BLOOD SPECIMENOrdering Facility: [facility] Address: [address] [place] [address] Performed By: #### 2 4323-8, , 36905-4 ####[facility] LABCLIA [id number] [place] [place] [id number] [place] CO2 [Moles/Vol] 18 mmol/L Low 22-30 [facility] Comment on above: Order Comment: Speci men Type: BLOOD SPECIMENOrdering Facility: [facility] Address: [address] [place] [address] Performed By: #### 2 4323-8, , 43116-9 ####[facility] LABCLIA [id number] [place] [address] [place] Creatinine [Mass/Vol] 0.94 mg/dL Normal 0.58-0.96 [facility] Comment on above: Order Comment: Speci men Type: BLOOD SPECIMENOrdering Facility: [facility] Address: [address] [place] [address] Performed By: #### 2 4323-8, , 87839-6 ####[facility] LABCLIA [id number] [place] [address] [place] Creatinine and Glomerular filtration rate.predicted panel (S/P/Bld) 70 mL/min/1.73m??? Normal >=60 [facility] Comment on above: Order Comment: Speci men Type: BLOOD SPECIMENOrdering Facility: [facility] Address: [address] [place] [address] Result Comment: Carmen mated Glomerular Filtration Rate [...] actual GFR. Performed By: #### 2 4323-8, 68110-6, 25398-5 ####[facility] LABCLIA [id number] [place] [address] [place] Glucose [Mass/Vol] 107 mg/dL High 74-99 [facility] Comment on above: Order Comment: Speci men Type: BLOOD SPECIMENOrdering Facility: [facility] Address: [address] [place] [address] Result Comment: The [place] Diabetes Association (ADA) provides guidance for cutoff [...] Standards of Medical Care in Diabetes 2016, [place] [employer]. Diabetes Care. 2016.39(Suppl 1). Performed By: #### 2 4323-8, 23624-2, 90296-9 ####[facility] LABIA [id number] [place] [address] [place] Potassium [Moles/Vol] 4.0 mmol/L Normal 3.7-5.1 [facility] Comment on above: Order Comment: Speci men Type: BLOOD SPECIMENOrdering Facility: [facility] Address: [address] [place] [address] Performed By: #### 2 4323-8, 88943-5, 60239-1 ####[facility] LABIA [id number] [place] [address] [place] Protein [Mass/Vol] 4.5 g/dL Low 6.3-8.0 [facility] Comment on above: Order Comment: Paco men Type: BLOOD SPECIMENOrdering Facility: [facility] Address: [address] [place] [id number] Performed By: #### 2 4323-8, 27848-5, 63574-2 ####[facility] LABCLIA [id number] [place] [id number] [place] Sodium [Moles/Vol] 139 mmol/L Normal 136-144 [facility] Comment on above: Order Comment: Speci men Type: BLOOD SPECIMENOrdering Facility: [facility] Address: [address] [place] [address] Performed By: #### 2 4323-8, , ####[facility] LABCLIA [id number] [place] [address] [place] Urea nitrogen [Mass/Vol] 22 mg/dL High 7-21 [facility] Comment on above: Order Comment: Speci men Type: BLOOD SPECIMENOrdering Facility: [facility] Address: [address] [place] [address] Performed By: #### 2 4323-8, , ####[facility] LABCLIA [id number] [place] [address] [place], Bld SerPl-sCncon [place] [Moles/Vol] 0.7 mmol/L Normal 0.6-1.2 [facility] Comment on above: Order Comment: Speci men Type: BLOOD SPECIMENOrdering Facility: [facility] Address: [address] [place] [address] Result Comment: Refe rence ranges and high/low indicator flags are provided as general guidelines only. The treating physician must determine appropriate target levels/dosing based on the specific clinical situation. Performed By: #### 2 4323-8, , ####[facility] LABCLIA [id number] [place] [id number] [place] Magnesium SerPl-mCncon 05-10 Magnesium [Mass/Vol] 2.3 mg/dL Normal 1.7-2.3 [facility] Comment on above: Order Comment: Speci men Type: BLOOD SPECIMENOrdering Facility: [facility] Address: [address] [place] [address] Performed By: #### 2 4323-8, 96548-8, 26685-8 ####[facility] LABCLIA [id number] [place] [address] [place] THERAPY NTon 05-10-2024 THERAPY NT Normal [facility] THERAPY NT Normal [facility] TYPE + SCREENon 05-10-2024 ABO A Normal [facility] Comment on above: Order Comment: Speci men Type: BLOOD SPECIMENOrdering Facility: [facility] Address: [address] [place] [address] Performed By: #### T SCR ####[facility] BLOOD BANKCLIA [id number] [place] [address] [place] HISTORICAL AB SCR STATUS Negative Normal [facility] Comment on above: Order Comment: Speci men Type: BLOOD SPECIMENOrdering Facility: [facility] Address: [address] [place] [address] Performed By: #### T SCR ####[facility] BLOOD BANKCLIA [id number] [place] [address] [place] Rh Nom (Bld) Positive Normal [facility] Comment on above: Order Comment: Speci men Type: BLOOD SPECIMENOrdering Facility: [facility] Address: [address] [place] [address] Performed By: #### T SCR ####[facility] BLOOD BANKCLIA [id number] [place] [address] [place] TYPE AND SCREEN EXPIRATION 05/13/2024 23:59 Normal [facility] Comment on above: Order Comment: Speci men Type: BLOOD SPECIMENOrdering Facility: [facility] Address: [address] [place] [address] Performed By: #### T SCR ####[facility] BLOOD [facility] [id number] [place] [address] [place] CBC panel Auto (Bld)on 05-09 Erythrocyte distribution width (RBC) [Ratio] 18.8 % High 11.5-15.0 [facility] Comment on above: Order Comment: Speci men Type: BLOOD SPECIMENOrdering Facility: [facility] Address: [address] [place] [address] Performed By: #### 5 8410-2 ####[facility] [id number] [place] [address] [place] Hematocrit (Bld) [Volume fraction] 24.5 % Low 36.0-46.0 [facility] Comment on above: Order Comment: Speci men Type: BLOOD SPECIMENOrdering Facility: [facility] Address: [address] [place] [address] Performed By: #### 5 8410-2 ####[facility] LABIA [id number] [place] [address] [place] Hemoglobin (Bld) [Mass/Vol] 8.0 g/dL Low 11.5-15.5 [facility] Comment on above: Order Comment: Speci men Type: BLOOD SPECIMENOrdering Facility: [facility] Address: [address] [place] [address] Performed By: #### 5 8410-2 ####[facility] LABIA [id number] [place] [address] [place] MCH (RBC) [Entitic mass] 31.9 pg Normal 26.0-34.0 [facility] Comment on above: Order Comment: Speci men Type: BLOOD SPECIMENOrdering Facility: [facility] Address: [address] [place] [address] Performed By: #### 5 8410-2 ####[facility] LABIA [id number] [place] [address] [place] MCHC (RBC) [Mass/Vol] 32.7 g/dL Normal 30.5-36.0 [facility] Comment on above: Order Comment: Speci men Type: BLOOD SPECIMENOrdering Facility: [facility] Address: [address] [place] [address] Performed By: #### 5 8410-2 ####[facility] LABCLIA [id number] [place] [address] [place] MCV (RBC) [Entitic vol] 97.6 fL Normal 80.0-100.0 [facility] Comment on above: Order Comment: Speci men Type: BLOOD SPECIMENOrdering Facility: [facility] Address: [address] [place] [address] Performed By: #### 5 8410-2 ####[facility] LABCLIA [id number] [place] [address] [place] Nucleated RBC (Bld) [#/Vol] 10*3/uL Normal <0.01 [facility] Comment on above: Order Comment: Speci men Type: BLOOD SPECIMENOrdering Facility: [facility] Address: [address] [place] [address] Performed By: #### 5 8410-2 ####[facility] LABCLIA [id number] [place] [address] [place] Platelet mean volume (Bld) [Entitic vol] 9.9 fL Normal 9.0-12.7 [facility] Comment on above: Order Comment: Speci men Type: BLOOD SPECIMENOrdering Facility: [facility] Address: [address] [place] [address] Performed By: #### 5 8410-2 ####[facility] LABCLIA [id number] [place] [address] [place] Platelets (Bld) [#/Vol] 230 10*3/uL Normal 150-400 [facility] Comment on above: Order Comment: Speci men Type: BLOOD SPECIMENOrdering Facility: [facility] Address: [address] [place] [address] Performed By: #### 5 8410-2 ####[facility] LABCLIA [id number] [place] [address] [place] RBC (Bld) [#/Vol] 2.51 10*6/uL Low 3.90-5.20 [facility] Comment on above: Order Comment: Speci men Type: BLOOD SPECIMENOrdering Facility: [facility] Address: [address] [place] [address] Performed By: #### 5 8410-2 ####[facility] LABIA [id number] [place] [address] [place] WBC (Bld) [#/Vol] 7.36 10*3/uL Normal 3.70-11.00 [facility] Comment on above: Order Comment: Speci men Type: BLOOD SPECIMENOrdering Facility: [facility] Address: [address] [place] [address] Performed By: #### 5 8410-2 ####[facility] LABIA [id number] [place] [address] [place] CONSULT PROGon 05-09-2024 CONSULT PROG Normal [facility] Comprehensive metabolic 2000 panelon 05-09-2024 Albumin [Mass/Vol] 2.9 g/dL Low 3.9-4.9 [facility] Comment on above: Order Comment: Speci men Type: BLOOD SPECIMENOrdering Facility: [facility] Address: [address] [place] [address] Performed By: #### 2 4323-8, 65597-1 ####[facility] LABIA [id number] [place] [address] [place] ALP [Catalytic activity/Vol] 134 U/L High 34-123 [facility] Comment on above: Order Comment: Speci men Type: BLOOD SPECIMENOrdering Facility: [facility] Address: [address] [place] [address] Performed By: #### 2 4323-8, ####[facility] LABCLIA [id number] [place] [address] [place] ALT [Catalytic activity/Vol] 12 U/L Normal 7-38 [facility] Comment on above: Order Comment: Speci men Type: BLOOD SPECIMENOrdering Facility: [facility] Address: [address] [place] [address] Performed By: #### 2 4322-8, ####[facility] LABCLIA [id number] [place] [address] [place] Anion gap [Moles/Vol] 7 mmol/L Low 8-15 [facility] Comment on above: Order Comment: Speci men Type: BLOOD SPECIMENOrdering Facility: [facility] Address: [address] [place] [address] Performed By: #### 2 432-8, ####[facility] LABCLIA [id number] [place] [address] [place] AST [Catalytic activity/Vol] 18 U/L Normal 13-35 [facility] Comment on above: Order Comment: Speci men Type: BLOOD SPECIMENOrdering Facility: [facility] Address: [address] [place] [address] Performed By: #### 2 4322-8, ####[facility] LABCLIA [id number] [place] [id number] [place] Bilirubin [Mass/Vol] 0.4 mg/dL Normal 0.2-1.3 [facility] Comment on above: Order Comment: Speci men Type: BLOOD SPECIMENOrdering Facility: [facility] Address: [address] [place] [address] Performed By: #### 2 432-8, ####[facility] LABCLIA [id number] [place] [address] [place] Calcium [Mass/Vol] 9.7 mg/dL Normal 8.5-10.2 [facility] Comment on above: Order Comment: Speci men Type: BLOOD SPECIMENOrdering Facility: [facility] Address: [address] [place] [address] Performed By: #### 2 4323-8, ####[facility] LABCLIA [id number] [place] [address] [place] Chloride [Moles/Vol] 108 mmol/L High 98-107 [facility] Comment on above: Order Comment: Speci men Type: BLOOD SPECIMENOrdering Facility: [facility] Address: [address] [place] [address] Performed By: #### 2 432-8, ####[facility] LABCLIA [id number] [place] [address] [place] CO2 [Moles/Vol] 22 mmol/L Normal 22-30 [facility] Comment on above: Order Comment: Speci men Type: BLOOD SPECIMENOrdering Facility: [facility] Address: [address] [place] [address] Performed By: #### 2 432-8, ####[facility] LABCLIA [id number] [place] [address] [place] Creatinine [Mass/Vol] 1.24 mg/dL High 0.58-0.96 [facility] Comment on above: Order Comment: Speci men Type: BLOOD SPECIMENOrdering Facility: [facility] Address: [address] [place] [address] Performed By: #### 2 4323-8, ####[facility] LABCLIA [id number] [place] [address] [place] Creatinine and Glomerular filtration rate.predicted panel (S/P/Bld) 50 mL/min/1.73m??? Low >=60 [facility] Comment on above: Order Comment: Paco fenton Type: BLOOD SPECIMENOrdering Facility: [facility] Address: [address] [place] [address] Result Comment: Carmen mated Glomerular Filtration Rate [...] actual GFR. Performed By: #### 2 4323-8, 53734-1 ####[facility] LABCLIA [id number] [place] [address] [place] Glucose [Mass/Vol] 121 mg/dL High 74-99 [facility] Comment on above: Order Comment: Paco fenton Type: BLOOD SPECIMENOrdering Facility: [facility] Address: [address] [place] [address] Result Comment: The [place] Diabetes Association (ADA) provides guidance for cutoff [...] Standards of Medical Care in Diabetes 2016, [place] [employer]. Diabetes Care. 2016.39(Suppl 1). Performed By: #### 2 4323-8, 24277-8 ####[facility] LABIA [id number] [place] [address] [place] Potassium [Moles/Vol] 4.3 mmol/L Normal 3.7-5.1 [facility] Comment on above: Order Comment: Speci men Type: BLOOD SPECIMENOrdering Facility: [facility] Address: [address] [place] [address] Performed By: #### 2 4323-8, ####[facility] LABCLIA [id number] [place] [address] [place] Protein [Mass/Vol] 5.0 g/dL Low 6.3-8.0 [facility] Comment on above: Order Comment: Speci men Type: BLOOD SPECIMENOrdering Facility: [facility] Address: [address] [place] [address] Performed By: #### 2 4323-8, ####[facility] LABCLIA [id number] [place] [address] [place] Sodium [Moles/Vol] 137 mmol/L Normal 136-144 [facility] Comment on above: Order Comment: Speci men Type: BLOOD SPECIMENOrdering Facility: [facility] Address: [address] [place] [address] Performed By: #### 2 4323-8, ####[facility] LABCLIA [id number] [place] [address] [place] Urea nitrogen [Mass/Vol] 33 mg/dL High 7-21 [facility] Comment on above: Order Comment: Speci men Type: BLOOD SPECIMENOrdering Facility: [facility] Address: [address] [place] [address] Performed By: #### 2 4323-8, ####[facility] LABCLIA [id number] [place] [id number] [place] Creatinine Unsp time (U) [Ma ss/Vol]on 05-09-2024 Creatinine (U) [Mass/Vol] 19.5 mg/dL Low 20.0-300.0 [facility] Comment on above: Order Comment: Speci men Type: URINE SPECIMENOrdering Facility: [facility] Address: [address] [place] [address] Performed By: #### 3 5678-2, 94771-0 ####[facility] LABCLIA [id number] [place] [address] [place] Magnesium SerPl-mCncon 05-09 Magnesium [Mass/Vol] 2.6 mg/dL High 1.7-2.3 [facility] Comment on above: Order Comment: Speci men Type: BLOOD SPECIMENOrdering Facility: [facility] Address: [address] [place] [address] Performed By: #### 2 4323-8, 05110-5 ####[facility] LABIA [id number] [place] [address] [place] NUTRITIONon 05-09-2024 NUTRITION Normal [facility] SOCIAL WORKon 05-09-2024 SOCIAL WORK Normal [facility] Sodium ?Tm Ur-sCncon 024 Sodium Unsp time (U) [Moles/Vol] 35 mmol/L Normal 14-216 [facility] Comment on above: Order Comment: Speci men Type: URINE SPECIMENOrdering Facility: [facility] Address: [address] [place] [address] Performed By: #### 3 5678-2, 37629-3 ####[facility] LABIA [id number] [place] [address] [place] THERAPY NTon 05-09-2024 THERAPY NT Normal [facility] Urinalysis complete panel (U )on 05-09-2024 Bacteria LM.HPF (Urine sed) [#/Area] Negative Normal Negative [facility] Comment on above: Order Comment: Speci men Type: URINE SPECIMENOrdering Facility: [facility] Address: [address] [place] [address] Performed By: #### 2 4356-8 ####[facility] LABCLIA [id number] [place] [address] [place] Bilirubin Ql (U) Negative Normal Negative [facility] Comment on above: Order Comment: Speci men Type: URINE SPECIMENOrdering Facility: [facility] Address: [address] [place] [address] Performed By: #### 2 4356-8 ####[facility] LABCLIA [id number] [place] [address] [place] Clarity (Unsp spec) Clear Normal Clear [facility] Comment on above: Order Comment: Speci men Type: URINE SPECIMENOrdering Facility: [facility] Address: [address] [place] [address] Performed By: #### 2 4356-8 ####[facility] LABCLIA [id number] [address] [place] OF [facility] Color (U) Yellow Normal Yellow [facility] Comment on above: Order Comment: Speci men Type: URINE SPECIMENOrdering Facility: [facility] Address: [address] [place] [address] Performed By: #### 2 4356-8 ####[facility] LABCLIA [id number] [place] [address] [place] Epithelial cells LM.HPF (Urine sed) [#/Area] None Seen Normal [facility] Comment on above: Order Comment: Speci men Type: URINE SPECIMENOrdering Facility: [facility] Address: [address] [place] [address] Performed By: #### 2 4356-8 ####[facility] LABCLIA [id number] [place] [address] [place] Glucose Test strip (U) [Mass/Vol] 2+ Abnormal Negative [facility] Comment on above: Order Comment: Speci men Type: URINE SPECIMENOrdering Facility: [facility] Address: [address] [place] [address] Performed By: #### 2 4356-8 ####[facility] LABCLIA [id number] [place] [address] [place] Hemoglobin Ql (U) Negative Normal Negative [facility] Comment on above: Order Comment: Speci men Type: URINE SPECIMENOrdering Facility: [facility] Address: [address] [place] [address] Performed By: #### 2 4356-8 ####[facility] LABCLIA [id number] [place] [address] [place] Hyaline casts (Urine sed) [#/Area] 0 /[LPF] Normal 0 /LPF [facility] Comment on above: Order Comment: Speci men Type: URINE SPECIMENOrdering Facility: [facility] Address: [address] [place] [address] Performed By: #### 2 4356-8 ####[facility] LABCLIA [id number] [place] [address] [place] Ketones Ql (U) Negative Normal Negative [facility] Comment on above: Order Comment: Speci men Type: URINE SPECIMENOrdering Facility: [facility] Address: [address] [place] [address] Performed By: #### 2 4356-8 ####[facility] LABCLIA [id number] [place] [address] [place] Leukocyte esterase Test strip Ql (U) Negative Normal Negative [facility] Comment on above: Order Comment: Speci men Type: URINE SPECIMENOrdering Facility: [facility] Address: [address] [place] [address] Performed By: #### 2 4356-8 ####[facility] LABCLIA [id number] [place] [address] [place] Nitrite Ql (U) Negative Normal Negative [facility] Comment on above: Order Comment: Speci men Type: URINE SPECIMENOrdering Facility: [facility] Address: [address] [place] [address] Performed By: #### 2 4356-8 ####[facility] LABCLIA [id number] [place] [address] [place] pH (U) 6.0 [pH] Normal <8.5 [facility] Comment on above: Order Comment: Speci men Type: URINE SPECIMENOrdering Facility: [facility] Address: [address] [place] [address] Performed By: #### 2 4356-8 ####[facility] LABIA [id number] [place] [address] [place] Protein (U) [Mass/Vol] Negative Normal Negative [facility] Comment on above: Order Comment: Speci men Type: URINE SPECIMENOrdering Facility: [facility] Address: [address] [place] [address] Performed By: #### 2 4356-8 ####[facility] LABIA [id number] [place] [address] [place] RBC LM.HPF (Urine sed) [#/Area] 0-2 /HPF Normal 0-2 /HPF [facility] Comment on above: Order Comment: Speci men Type: URINE SPECIMENOrdering Facility: [facility] Address: [address] [place] [address] Performed By: #### 2 4356-8 ####[facility] LABIA [id number] [place] [address] [place] Specific gravity (U) [Rel density] 1.010 Normal 1.005-1.030 [facility] Comment on above: Order Comment: Speci men Type: URINE SPECIMENOrdering Facility: [facility] Address: [address] [place] [address] Performed By: #### 2 4356-8 ####[facility] LABIA [id number] [place] [address] [place] Urobilinogen Ql (U) 1.0 EU/dL Normal 0.2-1.0 EU/dL [facility] Comment on above: Order Comment: Speci men Type: URINE SPECIMENOrdering Facility: [facility] Address: [address] [place] [address] Performed By: #### 2 4356-8 ####[facility] LABCL[facility] [id number] [place] [address] [place] WBC LM.HPF (Urine sed) [#/Area] 0-5 /HPF Normal 0-5 /HPF [facility] Comment on above: Order Comment: Speci men Type: URINE SPECIMENOrdering Facility: [facility] Address: [address] [place] [address] Performed By: #### 2 4356-8 ####[facility] LABIA [id number] [place] [address] [place] CBC panel Auto (Bld)on 05-08 Erythrocyte distribution width (RBC) [Ratio] 19.9 % High 11.5-15.0 [facility] Comment on above: Order Comment: Speci men Type: BLOOD SPECIMENOrdering Facility: [facility] Address: [address] [place] [address] Performed By: #### 5 8410-2 ####[facility] [id number] [place] [address] [place] Hematocrit (Bld) [Volume fraction] 25.4 % Low 36.0-46.0 [facility] Comment on above: Order Comment: Speci men Type: BLOOD SPECIMENOrdering Facility: [facility] Address: [address] [place] [address] Performed By: #### 5 8410-2 ####[facility] [id number] [place] [address] [place] Hemoglobin (Bld) [Mass/Vol] 8.3 g/dL Low 11.5-15.5 [facility] Comment on above: Order Comment: Speci men Type: BLOOD SPECIMENOrdering Facility: [facility] Address: [address] [place] [address] Performed By: #### 5 8410-2 ####[facility] [id number] [place] [address] [place] MCH (RBC) [Entitic mass] 31.9 pg Normal 26.0-34.0 [facility] Comment on above: Order Comment: Speci men Type: BLOOD SPECIMENOrdering Facility: [facility] Address: [address] [place] [address] Performed By: #### 5 8410-2 ####[facility] [id number] [place] [address] [place] MCHC (RBC) [Mass/Vol] 32.7 g/dL Normal 30.5-36.0 [facility] Comment on above: Order Comment: Speci men Type: BLOOD SPECIMENOrdering Facility: [facility] Address: [address] [place] [address] Performed By: #### 5 8410-2 ####[facility] [id number] [place] [address] [place] MCV (RBC) [Entitic vol] 97.7 fL Normal 80.0-100.0 [facility] Comment on above: Order Comment: Speci men Type: BLOOD SPECIMENOrdering Facility: [facility] Address: [address] [place] [address] Performed By: #### 5 8410-2 ####[facility] [id number] [place] [address] [place] Nucleated RBC (Bld) [#/Vol] 10*3/uL Normal <0.01 [facility] Comment on above: Order Comment: Speci men Type: BLOOD SPECIMENOrdering Facility: [facility] Address: [address] [place] [address] Performed By: #### 5 8410-2 ####[facility] [id number] [place] [address] [place] Platelet mean volume (Bld) [Entitic vol] 9.5 fL Normal 9.0-12.7 [facility] Comment on above: Order Comment: Speci men Type: BLOOD SPECIMENOrdering Facility: [facility] Address: [address] [place] [address] Performed By: #### 5 8410-2 ####[facility] [id number] [place] [address] [place] Platelets (Bld) [#/Vol] 210 10*3/uL Normal 150-400 [facility] Comment on above: Order Comment: Speci men Type: BLOOD SPECIMENOrdering Facility: [facility] Address: [address] [place] [address] Performed By: #### 5 8410-2 ####[facility] [id number] [place] [address] [place] RBC (Bld) [#/Vol] 2.60 10*6/uL Low 3.90-5.20 [facility] Comment on above: Order Comment: Speci men Type: BLOOD SPECIMENOrdering Facility: [facility] Address: [address] [place] [address] Performed By: #### 5 8410-2 ####[facility] [id number] [place] [address] [place] WBC (Bld) [#/Vol] 4.88 10*3/uL Normal 3.70-11.00 [facility] Comment on above: Order Comment: Speci men Type: BLOOD SPECIMENOrdering Facility: [facility] Address: [address] [place] [address] Performed By: #### 5 8410-2 ####[facility] [id number] [place] [address] [place] Comprehensive metabolic 2000 panelon 05-08-2024 Albumin [Mass/Vol] 2.8 g/dL Low 3.9-4.9 [facility] Comment on above: Order Comment: Speci men Type: BLOOD SPECIMENOrdering Facility: [facility] Address: [address] [place] [address] Performed By: #### 2 4323-8, ####[facility] [id number] [place] [address] [place] ALP [Catalytic activity/Vol] 152 U/L High 34-123 [facility] Comment on above: Order Comment: Speci men Type: BLOOD SPECIMENOrdering Facility: [facility] Address: [address] [place] [address] Performed By: #### 2 4323-8, ####[facility] [id number] [place] [address] [place] ALT [Catalytic activity/Vol] 14 U/L Normal 7-38 [facility] Comment on above: Order Comment: Speci men Type: BLOOD SPECIMENOrdering Facility: [facility] Address: [address] [place] [address] Performed By: #### 2 4323-8, ####[facility] [id number] [place] [address] [place] Anion gap [Moles/Vol] 13 mmol/L Normal 8-15 [facility] Comment on above: Order Comment: Speci men Type: BLOOD SPECIMENOrdering Facility: [facility] Address: [address] [place] [address] Performed By: #### 2 4323-8, ####[facility] [id number] [place] [address] [place] AST [Catalytic activity/Vol] 18 U/L Normal 13-35 [facility] Comment on above: Order Comment: Speci men Type: BLOOD SPECIMENOrdering Facility: [facility] Address: [address] [place], [place] [address] Performed By: #### 2 4323-8, ####[facility] [id number] [place] [address] [place] Bilirubin [Mass/Vol] 0.5 mg/dL Normal 0.2-1.3 [facility] Comment on above: Order Comment: Speci men Type: BLOOD SPECIMENOrdering Facility: [facility] Address: [address] [place] [address] Performed By: #### 2 432-8, ####[facility] [id number] [place] [address] [place] Calcium [Mass/Vol] 9.1 mg/dL Normal 8.5-10.2 [facility] Comment on above: Order Comment: Speci men Type: BLOOD SPECIMENOrdering Facility: [facility] Address: [address] [place] [address] Performed By: #### 2 4323-8, ####[facility] [id number] [place] [address] [place] Chloride [Moles/Vol] 109 mmol/L High 98-107 [facility] Comment on above: Order Comment: Speci men Type: BLOOD SPECIMENOrdering Facility: [facility] Address: [address] [place] [address] Performed By: #### 2 4323-8, ####[facility] [id number] [place] [id number] [place] CO2 [Moles/Vol] 17 mmol/L Low 22-30 [facility] Comment on above: Order Comment: Speci men Type: BLOOD SPECIMENOrdering Facility: [facility] Address: [address] [place], [place] [id number] Performed By: #### 2 4323-8, ####[facility] [id number] [address] [address] [place] Creatinine [Mass/Vol] 1.04 mg/dL High 0.58-0.96 [facility] Comment on above: Order Comment: Paco fenton Type: BLOOD SPECIMENOrdering Facility: [facility] Address: [address] [place] [address] Performed By: #### 2 4323-8, ####[facility] [id number] [place] [address] [place] [facility] [place] Creatinine and Glomerular filtration rate.predicted panel (S/P/Bld) 62 mL/min/1.73m??? Normal >=60 [facility] Comment on above: Order Comment: Paco fenton Type: BLOOD SPECIMENOrdering Facility: [facility] Address: [address] [place] [address] Result Comment: Carmen mated Glomerular Filtration Rate [...] actual GFR. Performed By: #### 2 4323-8, ####[facility] [id number] [place] [address] [place] Glucose [Mass/Vol] 133 mg/dL High 74-99 [facility] Comment on above: Order Comment: Paco fenton Type: BLOOD SPECIMENOrdering Facility: [facility] Address: [address] [place] [address] Result Comment: The [place] [employer] (ADA) provides guidance for cutoff [...] Standards of Medical Care in Diabetes 2016, [place] [employer]. Diabetes Care. 2016.39(Suppl 1). Performed By: #### 2 432-8, ####[facility] [id number] [place] [address] [place] Potassium [Moles/Vol] 3.9 mmol/L Normal 3.7-5.1 [facility] Comment on above: Order Comment: Speci men Type: BLOOD SPECIMENOrdering Facility: [facility] Address: [address] [place] [address] Performed By: #### 2 43211-11, ####[facility] [id number] [place] [address] [place] Protein [Mass/Vol] 5.1 g/dL Low 6.3-8.0 [facility] Comment on above: Order Comment: Speci men Type: BLOOD SPECIMENOrdering Facility: [facility] Address: [address] [place] [address] Performed By: #### 2 4323-04, ####[facility] [id number] [place] [address] [place] Sodium [Moles/Vol] 139 mmol/L Normal 136-144 [facility] Comment on above: Order Comment: Speci men Type: BLOOD SPECIMENOrdering Facility: [facility] Address: [address] [place] [address] Performed By: #### 2 4323-04, ####[facility] [id number] [address] [address] [place] Urea nitrogen [Mass/Vol] 22 mg/dL High 7-21 [facility] Comment on above: Order Comment: Speci men Type: BLOOD SPECIMENOrdering Facility: [facility] Address: [address] [place] [address] Performed By: #### 2 4323-8, 87286-9 ####[facility] [id number] [address] [address] [place] HISTORY PHYSICALon HISTORY PHYSICAL Normal [facility] HISTORY PHYSICAL Normal [facility] Magnesium SerPl-mCncon 05-08 Magnesium [Mass/Vol] 2.4 mg/dL High 1.7-2.3 [facility] Comment on above: Order Comment: Speci men Type: BLOOD SPECIMENOrdering Facility: [facility] Address: [address] [place] [address] Performed By: #### 2 4323-8, 20282-1 ####[facility] [id number] [place] [id number] [place] NURSING PROGon 05-08-2024 NURSING PROG Normal [facility] Upper GI endoscopyon 024 Upper GI endoscopy Normal [facility] XR CHEST 1V FRONTAL PORTon 0 05-08-2024 XR CHEST 1V FRONTAL PORT Normal [facility] CBC panel Auto (Bld)on 05-07 Erythrocyte distribution width (RBC) [Ratio] 16.6 % High 11.5-15.0 [facility] Comment on above: Order Comment: Speci men Type: BLOOD SPECIMENOrdering Facility: [facility] Address: [address] [place] [address] Performed By: #### 5 8410-2 ####[facility] [id number] [place] [address] [place] Hematocrit (Bld) [Volume fraction] 21.0 % Low 36.0-46.0 [facility] Comment on above: Order Comment: Speci men Type: BLOOD SPECIMENOrdering Facility: [facility] Address: [address] [place] [address] Performed By: #### 5 8410-2 ####[facility] [id number] [place] [address] [place] Hemoglobin (Bld) [Mass/Vol] 6.9 g/dL Low 11.5-15.5 [facility] Comment on above: Order Comment: Speci men Type: BLOOD SPECIMENOrdering Facility: [facility] Address: [address] [place] [address] Performed By: #### 5 8410-2 ####[facility] [id number] [place] [address] [place] MCH (RBC) [Entitic mass] 33.8 pg Normal 26.0-34.0 [facility] Comment on above: Order Comment: Speci men Type: BLOOD SPECIMENOrdering Facility: [facility] Address: [address] [place] [address] Performed By: #### 5 8410-2 ####[facility] [id number] [place] [address] [place] MCHC (RBC) [Mass/Vol] 32.9 g/dL Normal 30.5-36.0 [facility] Comment on above: Order Comment: Speci men Type: BLOOD SPECIMENOrdering Facility: [facility] Address: [address] [place] [address] Performed By: #### 5 8410-2 ####[facility] [id number] [place] [address] [place] MCV (RBC) [Entitic vol] 102.9 fL High 80.0-100.0 [facility] Comment on above: Order Comment: Speci men Type: BLOOD SPECIMENOrdering Facility: [facility] Address: [address] [place] [address] Performed By: #### 5 8410-2 ####[facility] [id number] [place] [address] [place] Nucleated RBC (Bld) [#/Vol] 10*3/uL Normal <0.01 [facility] Comment on above: Order Comment: Speci men Type: BLOOD SPECIMENOrdering Facility: [facility] Address: [address] [place] [address] Performed By: #### 5 8410-2 ####[facility] [id number] [place] [address] [place] Platelet mean volume (Bld) [Entitic vol] 9.7 fL Normal 9.0-12.7 [facility] Comment on above: Order Comment: Speci men Type: BLOOD SPECIMENOrdering Facility: [facility] Address: [address] [place] [address] Performed By: #### 5 8410-2 ####[facility] [id number] [place] [address] [place] Platelets (Bld) [#/Vol] 208 10*3/uL Normal 150-400 [facility] Comment on above: Order Comment: Speci men Type: BLOOD SPECIMENOrdering Facility: [facility] Address: [address] [place] [address] Performed By: #### 5 8410-2 ####[facility] [id number] [place] [address] [place] RBC (Bld) [#/Vol] 2.04 10*6/uL Low 3.90-5.20 [facility] Comment on above: Order Comment: Speci men Type: BLOOD SPECIMENOrdering Facility: [facility] Address: [address] [place] [address] Performed By: #### 5 8410-2 ####[facility] [id number] [place] [address] [place] WBC (Bld) [#/Vol] 4.53 10*3/uL Normal 3.70-11.00 [facility] Comment on above: Order Comment: Speci men Type: BLOOD SPECIMENOrdering Facility: [facility] Address: [address] [place] [address] Performed By: #### 5 8410-2 ####[facility] [id number] [place] [address] [place] Erythrocyte distribution width (RBC) [Ratio] 16.8 % High 11.5-15.0 [facility] Comment on above: Order Comment: Speci men Type: BLOOD SPECIMENOrdering Facility: [facility] Address: [address] [place] [address] Performed By: #### 5 8410-2 ####[facility] [id number] [place] [address] [place] Hematocrit (Bld) [Volume fraction] 22.5 % Low 36.0-46.0 [facility] Comment on above: Order Comment: Speci men Type: BLOOD SPECIMENOrdering Facility: [facility] Address: [address] [place] [address] Performed By: #### 5 8410-2 ####[facility] [id number] [place] [address] [place] Hemoglobin (Bld) [Mass/Vol] 7.2 g/dL Low 11.5-15.5 [facility] Comment on above: Order Comment: Speci men Type: BLOOD SPECIMENOrdering Facility: [facility] Address: [address] [place] [address] Performed By: #### 5 8410-2 ####[facility] [id number] [place] [address] [place] MCH (RBC) [Entitic mass] 32.9 pg Normal 26.0-34.0 [facility] Comment on above: Order Comment: Speci men Type: BLOOD SPECIMENOrdering Facility: [facility] Address: [address] [place] [address] Performed By: #### 5 8410-2 ####[facility] [id number] [place] [address] [place] MCHC (RBC) [Mass/Vol] 32.0 g/dL Normal 30.5-36.0 [facility] Comment on above: Order Comment: Speci men Type: BLOOD SPECIMENOrdering Facility: [facility] Address: [address] [place] [address] Performed By: #### 5 8410-2 ####[facility] [id number] [place] [address] [place] MCV (RBC) [Entitic vol] 102.7 fL High 80.0-100.0 [facility] Comment on above: Order Comment: Speci men Type: BLOOD SPECIMENOrdering Facility: [facility] Address: [address] [place] [address] Performed By: #### 5 8410-2 ####[facility] [id number] [place] [address] [place] Nucleated RBC (Bld) [#/Vol] 10*3/uL Normal <0.01 [facility] Comment on above: Order Comment: Speci men Type: BLOOD SPECIMENOrdering Facility: [facility] Address: [address] [place] [address] Performed By: #### 5 8410-2 ####[facility] [id number] [place] [address] [place] Platelet mean volume (Bld) [Entitic vol] 10.1 fL Normal 9.0-12.7 [facility] Comment on above: Order Comment: Speci men Type: BLOOD SPECIMENOrdering Facility: [facility] Address: [address] [place] [address] Performed By: #### 5 8410-2 ####[facility] [id number] [address] [id number] [address] [place] Platelets (Bld) [#/Vol] 210 10*3/uL Normal 150-400 [facility] Comment on above: Order Comment: Speci men Type: BLOOD SPECIMENOrdering Facility: [facility] Address: [address] [place] [address] Performed By: #### 5 8410-2 ####[facility] [id number] [place] [address] [place] RBC (Bld) [#/Vol] 2.19 10*6/uL Low 3.90-5.20 [facility] Comment on above: Order Comment: Speci men Type: BLOOD SPECIMENOrdering Facility: [facility] Address: [address] [place] [address] Performed By: #### 5 8410-2 ####[facility] [id number] [place] [address] [place] WBC (Bld) [#/Vol] 5.31 10*3/uL Normal 3.70-11.00 [facility] Comment on above: Order Comment: Speci men Type: BLOOD SPECIMENOrdering Facility: [facility] Address: [address] [place] [address] Performed By: #### 5 8410-2 ####[facility] [id number] [place] [address] [place] Erythrocyte distribution width (RBC) [Ratio] 17.0 % High 11.5-15.0 [facility] Comment on above: Order Comment: Speci men Type: BLOOD SPECIMENOrdering Facility: [facility] Address: [address] [place] [address] Performed By: #### 5 8410-2 ####[facility] [id number] [place] [address] [place] Hematocrit (Bld) [Volume fraction] 23.1 % Low 36.0-46.0 [facility] Comment on above: Order Comment: Speci men Type: BLOOD SPECIMENOrdering Facility: [facility] Address: [address] [place] [address] Performed By: #### 5 8410-2 ####[facility] [id number] [place] [address] [place] Hemoglobin (Bld) [Mass/Vol] 7.7 g/dL Low 11.5-15.5 [facility] Comment on above: Order Comment: Speci men Type: BLOOD SPECIMENOrdering Facility: [facility] Address: [address] [place] [address] Performed By: #### 5 8410-2 ####[facility] [id number] [place] [address] [place] MCH (RBC) [Entitic mass] 34.4 pg High 26.0-34.0 [facility] Comment on above: Order Comment: Speci men Type: BLOOD SPECIMENOrdering Facility: [facility] Address: [address] [place] [address] Performed By: #### 5 8410-2 ####[facility] [id number] [place] [address] [place] MCHC (RBC) [Mass/Vol] 33.3 g/dL Normal 30.5-36.0 [facility] Comment on above: Order Comment: Speci men Type: BLOOD SPECIMENOrdering Facility: [facility] Address: [address] [place] [address] Performed By: #### 5 8410-2 ####[facility] [id number] [place] [address] [place] MCV (RBC) [Entitic vol] 103.1 fL High 80.0-100.0 [facility] Comment on above: Order Comment: Speci men Type: BLOOD SPECIMENOrdering Facility: [facility] Address: [address] [place] [address] Performed By: #### 5 8410-2 ####[facility] [id number] [place] [address] [place] Nucleated RBC (Bld) [#/Vol] 10*3/uL Normal <0.01 [facility] Comment on above: Order Comment: Speci men Type: BLOOD SPECIMENOrdering Facility: [facility] Address: [address] [place] [address] Performed By: #### 5 8410-2 ####[facility] [id number] [place] [address] [place] Platelet mean volume (Bld) [Entitic vol] 9.8 fL Normal 9.0-12.7 [facility] Comment on above: Order Comment: Speci men Type: BLOOD SPECIMENOrdering Facility: [facility] Address: [address] [place] [address] Performed By: #### 5 8410-2 ####[facility] [id number] [place] [address] [place] Platelets (Bld) [#/Vol] 184 10*3/uL Normal 150-400 [facility] Comment on above: Order Comment: Speci men Type: BLOOD SPECIMENOrdering Facility: [facility] Address: [address] [place] [address] Performed By: #### 5 8410-2 ####[facility] [id number] [place] [address] [place] RBC (Bld) [#/Vol] 2.24 10*6/uL Low 3.90-5.20 [facility] Comment on above: Order Comment: Speci men Type: BLOOD SPECIMENOrdering Facility: [facility] Address: [address] [place] [address] Performed By: #### 5 8410-2 ####[facility] [id number] [place] [address] [place] WBC (Bld) [#/Vol] 4.49 10*3/uL Normal 3.70-11.00 [facility] Comment on above: Order Comment: Speci men Type: BLOOD SPECIMENOrdering Facility: [facility] Address: [address] [place] [address] Performed By: #### 5 8410-2 ####[facility] [id number] [place] [address] [place] CONSULT PROGon 05-07-2024 CONSULT PROG Normal [facility] CTA ABD/PELV W IVCONon 05-07 CTA ABD/PELV W IVCON Normal [facility] NURSING PROGon 05-07-2024 NURSING PROG Normal [facility] NURSING PROG Normal [facility] Renal function 2000 panelon 05-07-2024 Albumin [Mass/Vol] 2.9 g/dL Low 3.9-4.9 [facility] Comment on above: Order Comment: Speci men Type: BLOOD SPECIMENOrdering Facility: [facility] Address: [address] [place] [address] Performed By: #### 2 4362-6 ####[facility]IA [id number] [place] [address] [place] Anion gap [Moles/Vol] 10 mmol/L Normal 8-15 [facility] Comment on above: Order Comment: Speci men Type: BLOOD SPECIMENOrdering Facility: [facility] Address: [address] [place] [address] Performed By: #### 2 4362-6 ####[facility]IA [id number] [place] [address] [place] Calcium [Mass/Vol] 9.5 mg/dL Normal 8.5-10.2 [facility] Comment on above: Order Comment: Speci men Type: BLOOD SPECIMENOrdering Facility: [facility] Address: [address] [place] [address] Performed By: #### 2 4362-6 ####[facility] LABCLIA [id number] [place] [address] [place] Chloride [Moles/Vol] 111 mmol/L High 98-107 [facility] Comment on above: Order Comment: Speci men Type: BLOOD SPECIMENOrdering Facility: [facility] Address: [address] [place] [address] Performed By: #### 2 4362-6 ####[facility] LABCLIA [id number] [place] [address] [place] CO2 [Moles/Vol] 18 mmol/L Low 22-30 [facility] Comment on above: Order Comment: Speci men Type: BLOOD SPECIMENOrdering Facility: [facility] Address: [address] [place] [address] Performed By: #### 2 4362-6 ####[facility] LABCLIA [id number] [place] [address] [place] Creatinine [Mass/Vol] 0.99 mg/dL High 0.58-0.96 [facility] Comment on above: Order Comment: Speci men Type: BLOOD SPECIMENOrdering Facility: [facility] Address: [address] [place] [address] Performed By: #### 2 4362-6 ####[facility] [id number] [place] [address] [place] Creatinine and Glomerular filtration rate.predicted panel (S/P/Bld) 65 mL/min/1.73m??? Normal >=60 [facility] Comment on above: Order Comment: Speci men Type: BLOOD SPECIMENOrdering Facility: [facility] Address: [address] [place] [address] Result Comment: Carmen mated Glomerular Filtration Rate [...] actual GFR. Performed By: #### 2 4362-6 ####[facility] [id number] [place] [address] [place] Glucose [Mass/Vol] 120 mg/dL High 74-99 [facility] Comment on above: Order Comment: Paco fenton Type: BLOOD SPECIMENOrdering Facility: [facility] Address: [address] [place] [address] Result Comment: The [place] Diabetes Association (ADA) provides guidance for cutoff [...] Standards of Medical Care in Diabetes 2016, [place] [employer]. Diabetes Care. 2016.39(Suppl 1). Performed By: #### 2 4362-6 ####[facility] [id number] [place] [address] [place] Phosphate [Mass/Vol] 2.4 mg/dL Low 2.7-4.8 [facility] Comment on above: Order Comment: Paco fenton Type: BLOOD SPECIMENOrdering Facility: [facility] Address: [address] [place] [address] Performed By: #### 2 4362-6 ####[facility] [id number] [place] [address] [place] Potassium [Moles/Vol] 3.6 mmol/L Low 3.7-5.1 [facility] Comment on above: Order Comment: Paco fenton Type: BLOOD SPECIMENOrdering Facility: [facility] Address: [address] [place], [place] [address] Performed By: #### 2 4362-6 ####[facility] LABCLIA [id number] [place] [address] [place] Sodium [Moles/Vol] 139 mmol/L Normal 136-144 [facility] Comment on above: Order Comment: Speci men Type: BLOOD SPECIMENOrdering Facility: [facility] Address: [address] [place] [address] Performed By: #### 2 4362-6 ####[facility] LABCLIA [id number] [place] [address] [place] Urea nitrogen [Mass/Vol] 16 mg/dL Normal 7-21 [facility] Comment on above: Order Comment: Speci men Type: BLOOD SPECIMENOrdering Facility: [facility] Address: [address] [place] [address] Performed By: #### 2 4362-6 ####[facility]CL[facility] [id number] [place] [address] [place] THERAPY NTon 05-07-2024 THERAPY NT Normal [facility] TYPE + SCREENon 05-07-2024 ABO A Normal [facility] Comment on above: Order Comment: Speci men Type: BLOOD SPECIMENOrdering Facility: [facility] Address: [address] [place] [address] Performed By: #### T SCR ####[facility] BLOOD BANKCLIA [id number] [place] [address] [place] HISTORICAL AB SCR STATUS Negative Normal [facility] Comment on above: Order Comment: Speci men Type: BLOOD SPECIMENOrdering Facility: [facility] Address: [address] [place] [address] Performed By: #### T SCR ####[facility] BLOOD BANKCLIA [id number] [place] [id number] [place] Rh Nom (Bld) Positive Normal [facility] Comment on above: Order Comment: Speci men Type: BLOOD SPECIMENOrdering Facility: [facility] Address: [address] [place] [address] Performed By: #### T SCR ####[facility] BLOOD BANKCLIA [id number] [address] [address] [facility] TYPE AND SCREEN EXPIRATION 05/10/2024 23:59 Normal [facility] Comment on above: Order Comment: Speci men Type: BLOOD SPECIMENOrdering Facility: [facility] Address: [address] [place] [address] Performed By: #### T SCR ####[facility] BLOOD BANKIA [id number] [place] [address] [place] CBC panel Auto (Bld)on 05-06 Erythrocyte distribution width (RBC) [Ratio] 16.9 % High 11.5-15.0 [facility] Comment on above: Order Comment: Speci men Type: BLOOD SPECIMENOrdering Facility: [facility] Address: [address] [place] [address] Performed By: #### 5 8410-2 ####[facility] [id number] [place] [address] [place] Hematocrit (Bld) [Volume fraction] 23.7 % Low 36.0-46.0 [facility] Comment on above: Order Comment: Speci men Type: BLOOD SPECIMENOrdering Facility: [facility] Address: [address] [place] [address] Performed By: #### 5 8410-2 ####[facility] [id number] [place] [address] [place] Hemoglobin (Bld) [Mass/Vol] 7.7 g/dL Low 11.5-15.5 [facility] Comment on above: Order Comment: Speci men Type: BLOOD SPECIMENOrdering Facility: [facility] Address: [address] [place] [address] Performed By: #### 5 8410-2 ####[facility] LABW[facility] [id number] [place] [address] [place] MCH (RBC) [Entitic mass] 33.0 pg Normal 26.0-34.0 [facility] Comment on above: Order Comment: Speci men Type: BLOOD SPECIMENOrdering Facility: [facility] Address: [address] [place] [address] Performed By: #### 5 8410-2 ####[facility] [id number] [place] [address] [place] MCHC (RBC) [Mass/Vol] 32.5 g/dL Normal 30.5-36.0 [facility] Comment on above: Order Comment: Speci men Type: BLOOD SPECIMENOrdering Facility: [facility] Address: [address] [place] [address] Performed By: #### 5 8410-2 ####[facility] [id number] [place] [address] [place] MCV (RBC) [Entitic vol] 101.7 fL High 80.0-100.0 [facility] Comment on above: Order Comment: Speci men Type: BLOOD SPECIMENOrdering Facility: [facility] Address: [address] [place] [address] Performed By: #### 5 8410-2 ####[facility] [id number] [place] [address] [place] Nucleated RBC (Bld) [#/Vol] 10*3/uL Normal <0.01 [facility] Comment on above: Order Comment: Speci men Type: BLOOD SPECIMENOrdering Facility: [facility] Address: [address] [place] [address] Performed By: #### 5 8410-2 ####[facility] [id number] [place] [address] [place] Platelet mean volume (Bld) [Entitic vol] 10.2 fL Normal 9.0-12.7 [facility] Comment on above: Order Comment: Speci men Type: BLOOD SPECIMENOrdering Facility: [facility] Address: [address] [place] [address] Performed By: #### 5 8410-2 ####[facility] LABCLIA [id number] [place] [address] [place] Platelets (Bld) [#/Vol] 179 10*3/uL Normal 150-400 [facility] Comment on above: Order Comment: Speci men Type: BLOOD SPECIMENOrdering Facility: [facility] Address: [address] [place] [address] Performed By: #### 5 8410-2 ####[facility] LABCLIA [id number] [place] [address] [place] RBC (Bld) [#/Vol] 2.33 10*6/uL Low 3.90-5.20 [facility] Comment on above: Order Comment: Speci men Type: BLOOD SPECIMENOrdering Facility: [facility] Address: [address] [place] [address] Performed By: #### 5 8410-2 ####[facility] [id number] [place] [address] [place] WBC (Bld) [#/Vol] 4.31 10*3/uL Normal 3.70-11.00 [facility] Comment on above: Order Comment: Speci men Type: BLOOD SPECIMENOrdering Facility: [facility] Address: [address] [place] [address] Performed By: #### 5 8410-2 ####[facility] [id number] [place] [address] [place] Erythrocyte distribution width (RBC) [Ratio] 17.6 % High 11.5-15.0 [facility] Comment on above: Order Comment: Speci men Type: BLOOD SPECIMENOrdering Facility: [facility] Address: [address] [place] [address] Performed By: #### 5 8410-2 ####[facility] [id number] [place] [address] [place] Hematocrit (Bld) [Volume fraction] 23.3 % Low 36.0-46.0 [facility] Comment on above: Order Comment: Speci men Type: BLOOD SPECIMENOrdering Facility: [facility] Address: [address] [place] [address] Performed By: #### 5 8410-2 ####[facility] [id number] [place] [address] [place] Hemoglobin (Bld) [Mass/Vol] 7.6 g/dL Low 11.5-15.5 [facility] Comment on above: Order Comment: Speci men Type: BLOOD SPECIMENOrdering Facility: [facility] Address: [address] [place] [address] Performed By: #### 5 8410-2 ####[facility] [id number] [place] [address] [place] MCH (RBC) [Entitic mass] 33.2 pg Normal 26.0-34.0 [facility] Comment on above: Order Comment: Speci men Type: BLOOD SPECIMENOrdering Facility: [facility] Address: [address] [place] [address] Performed By: #### 5 8410-2 ####[facility] [id number] [place] [address] [place] MCHC (RBC) [Mass/Vol] 32.6 g/dL Normal 30.5-36.0 [facility] Comment on above: Order Comment: Speci men Type: BLOOD SPECIMENOrdering Facility: [facility] Address: [address] [place] [address] Performed By: #### 5 8410-2 ####[facility] [id number] [place] [address] [place] MCV (RBC) [Entitic vol] 101.7 fL High 80.0-100.0 [facility] Comment on above: Order Comment: Speci men Type: BLOOD SPECIMENOrdering Facility: [facility] Address: [address] [place] [address] Performed By: #### 5 8410-2 ####[facility] [id number] [place] [address] [place] Nucleated RBC (Bld) [#/Vol] 10*3/uL Normal <0.01 [facility] Comment on above: Order Comment: Speci men Type: BLOOD SPECIMENOrdering Facility: [facility] Address: [address] [place] [address] Performed By: #### 5 8410-2 ####[facility] [id number] [place] [address] [place] Platelet mean volume (Bld) [Entitic vol] 10.0 fL Normal 9.0-12.7 [facility] Comment on above: Order Comment: Speci men Type: BLOOD SPECIMENOrdering Facility: [facility] Address: [address] [place] [address] Performed By: #### 5 8410-2 ####[facility] [id number] [place] [address] [place] Platelets (Bld) [#/Vol] 180 10*3/uL Normal 150-400 [facility] Comment on above: Order Comment: Speci men Type: BLOOD SPECIMENOrdering Facility: [facility] Address: [address] [place] [address] Performed By: #### 5 8410-2 ####[facility] [id number] [place] [address] [place] RBC (Bld) [#/Vol] 2.29 10*6/uL Low 3.90-5.20 [facility] Comment on above: Order Comment: Speci men Type: BLOOD SPECIMENOrdering Facility: [facility] Address: [address] [place] [address] Performed By: #### 5 8410-2 ####[facility] LABCLIA [id number] [place] [address] [place] WBC (Bld) [#/Vol] 4.63 10*3/uL Normal 3.70-11.00 [facility] Comment on above: Order Comment: Speci men Type: BLOOD SPECIMENOrdering Facility: [facility] Address: [address] [place] [address] Performed By: #### 5 8410-2 ####[facility] LABCL[facility] [id number] [place] [address] [place] CONSULTon 05-06-2024 CONSULT Normal [facility] Renal function 2000 panelon 05-06-2024 Albumin [Mass/Vol] 2.5 g/dL Low 3.9-4.9 [facility] Comment on above: Order Comment: Speci men Type: BLOOD SPECIMENOrdering Facility: [facility] Address: [address] [place] [address] Performed By: #### 2 4362-6 ####[facility] LABCL[facility] [id number] [place] [address] [place] Anion gap [Moles/Vol] 8 mmol/L Normal 8-15 [facility] Comment on above: Order Comment: Speci men Type: BLOOD SPECIMENOrdering Facility: [facility] Address: [address] [place] [address] Performed By: #### 2 4362-6 ####[facility] LABCL[facility] [id number] [place] [address] [place] Calcium [Mass/Vol] 9.4 mg/dL Normal 8.5-10.2 [facility] Comment on above: Order Comment: Speci men Type: BLOOD SPECIMENOrdering Facility: [facility] Address: [address] [place] [address] Performed By: #### 2 4362-6 ####[facility] LABCL[facility] [id number] [place] [address] [place] Chloride [Moles/Vol] 111 mmol/L High 98-107 [facility] Comment on above: Order Comment: Speci men Type: BLOOD SPECIMENOrdering Facility: [facility] Address: [address] [place] [address] Performed By: #### 2 4362-6 ####[facility] LABCL[facility] [id number] [place] [address] [place] CO2 [Moles/Vol] 20 mmol/L Low 22-30 [facility] Comment on above: Order Comment: Speci men Type: BLOOD SPECIMENOrdering Facility: [facility] Address: [address] [place] [address] Performed By: #### 2 4362-6 ####[facility] LABCL[facility] [id number] [place] [address] [place] Creatinine [Mass/Vol] 1.22 mg/dL High 0.58-0.96 [facility] Comment on above: Order Comment: Speci men Type: BLOOD SPECIMENOrdering Facility: [facility] Address: [address] [place] [address] Performed By: #### 2 4362-6 ####[facility] LABCL[facility] [id number] [place] [address] [place] Creatinine and Glomerular filtration rate.predicted panel (S/P/Bld) 51 mL/min/1.73m??? Low >=60 [facility] Comment on above: Order Comment: Speci men Type: BLOOD SPECIMENOrdering Facility: [facility] Address: [address] [place] [address] Result Comment: Carmen mated Glomerular Filtration Rate [...] actual GFR. Performed By: #### 2 4362-6 ####[facility] LABCL[facility] [id number] [place] [address] [place] Glucose [Mass/Vol] 105 mg/dL High 74-99 [facility] Comment on above: Order Comment: Paco fenton Type: BLOOD SPECIMENOrdering Facility: [facility] Address: [address] [place] [address] Result Comment: The [place] [employer] (ADA) provides guidance for cutoff [...] Standards of Medical Care in Diabetes 2016, [place] [employer]. Diabetes Care. 2016.39(Suppl 1). Performed By: #### 2 4362-6 ####[facility] [id number] [place] [id number] [place] Phosphate [Mass/Vol] 2.7 mg/dL Normal 2.7-4.8 [facility] Comment on above: Order Comment: Paco fenton Type: BLOOD SPECIMENOrdering Facility: [facility] Address: [address] [place] [address] Performed By: #### 2 4362-6 ####[facility] LABCLIA [id number] [place] [address] [place] Potassium [Moles/Vol] 3.8 mmol/L Normal 3.7-5.1 [facility] Comment on above: Order Comment: Speci men Type: BLOOD SPECIMENOrdering Facility: [facility] Address: [address] [place] [address] Performed By: #### 2 4362-6 ####[facility] LABCLIA [id number] [place] [address] [place] Sodium [Moles/Vol] 139 mmol/L Normal 136-144 [facility] Comment on above: Order Comment: Speci men Type: BLOOD SPECIMENOrdering Facility: [facility] Address: [address] [place] [address] Performed By: #### 2 4362-6 ####[facility]CL[facility] [id number] [place] [address] [place] Urea nitrogen [Mass/Vol] 17 mg/dL Normal 7-21 [facility] Comment on above: Order Comment: Speci men Type: BLOOD SPECIMENOrdering Facility: [facility] Address: [address] [place] [address] Performed By: #### 2 4362-6 ####[facility] LABCL[facility] [id number] [place] [address] [place] ALLIED HEALTHon 05-05-2024 ALLIED HEALTH Normal [facility] ALLIED HEALTH Normal [facility] CBC panel Auto (Bld)on 05-05 Erythrocyte distribution width (RBC) [Ratio] 17.5 % High 11.5-15.0 [facility] Comment on above: Order Comment: Speci men Type: BLOOD SPECIMENOrdering Facility: [facility] Address: [address] [place] [address] Performed By: #### 5 8410-2 ####[facility] LABCL[facility] [id number] [place] [address] [place] Hematocrit (Bld) [Volume fraction] 25.5 % Low 36.0-46.0 [facility] Comment on above: Order Comment: Speci men Type: BLOOD SPECIMENOrdering Facility: [facility] Address: [address] [place] [address] Performed By: #### 5 8410-2 ####[facility] [id number] [place] [address] [place] Hemoglobin (Bld) [Mass/Vol] 8.3 g/dL Low 11.5-15.5 [facility] Comment on above: Order Comment: Speci men Type: BLOOD SPECIMENOrdering Facility: [facility] Address: [address] [place] [address] Performed By: #### 5 8410-2 ####[facility] [id number] [place] [address] [place] MCH (RBC) [Entitic mass] 33.2 pg Normal 26.0-34.0 [facility] Comment on above: Order Comment: Speci men Type: BLOOD SPECIMENOrdering Facility: [facility] Address: [address] [place] [address] Performed By: #### 5 8410-2 ####[facility] [id number] [place] [address] [place] MCHC (RBC) [Mass/Vol] 32.5 g/dL Normal 30.5-36.0 [facility] Comment on above: Order Comment: Speci men Type: BLOOD SPECIMENOrdering Facility: [facility] Address: [address] [place] [address] Performed By: #### 5 8410-2 ####[facility] [id number] [place] [address] [place] MCV (RBC) [Entitic vol] 102.0 fL High 80.0-100.0 [facility] Comment on above: Order Comment: Speci men Type: BLOOD SPECIMENOrdering Facility: [facility] Address: [address] [place] [address] Performed By: #### 5 8410-2 ####[facility] LABCL[facility] [id number] [place] [address] [place] Nucleated RBC (Bld) [#/Vol] 10*3/uL Normal <0.01 [facility] Comment on above: Order Comment: Speci men Type: BLOOD SPECIMENOrdering Facility: [facility] Address: [address] [place] [address] Performed By: #### 5 8410-2 ####[facility] [id number] [place] [address] [place] Platelet mean volume (Bld) [Entitic vol] 9.7 fL Normal 9.0-12.7 [facility] Comment on above: Order Comment: Speci men Type: BLOOD SPECIMENOrdering Facility: [facility] Address: [address] [place] [address] Performed By: #### 5 8410-2 ####[facility] [id number] [place] [address] [place] Platelets (Bld) [#/Vol] 184 10*3/uL Normal 150-400 [facility] Comment on above: Order Comment: Speci men Type: BLOOD SPECIMENOrdering Facility: [facility] Address: [address] [place] [address] Performed By: #### 5 8410-2 ####[facility] [id number] [place] [address] [place] RBC (Bld) [#/Vol] 2.50 10*6/uL Low 3.90-5.20 [facility] Comment on above: Order Comment: Speci men Type: BLOOD SPECIMENOrdering Facility: [facility] Address: [address] [place] [address] Performed By: #### 5 8410-2 ####[facility] [id number] [place] [address] [place] WBC (Bld) [#/Vol] 6.39 10*3/uL Normal 3.70-11.00 [facility] Comment on above: Order Comment: Speci men Type: BLOOD SPECIMENOrdering Facility: [facility] Address: [address] [place] [address] Performed By: #### 5 8410-2 ####[facility] LABCL[facility] [id number] [place] [address] [place] Erythrocyte distribution width (RBC) [Ratio] 17.9 % High 11.5-15.0 [facility] Comment on above: Order Comment: Speci men Type: BLOOD SPECIMENOrdering Facility: [facility] Address: [address] [place] [address] Performed By: #### 1 4334-7, 75587-4 ####[facility] [id number] [place] [address] [place] Hematocrit (Bld) [Volume fraction] 27.6 % Low 36.0-46.0 [facility] Comment on above: Order Comment: Speci men Type: BLOOD SPECIMENOrdering Facility: [facility] Address: [address] [place] [address] Performed By: #### 1 4334-7, 81391-4 ####[facility] [id number] [place] [address] [place] Hemoglobin (Bld) [Mass/Vol] 9.0 g/dL Low 11.5-15.5 [facility] Comment on above: Order Comment: Speci men Type: BLOOD SPECIMENOrdering Facility: [facility] Address: [address] [place] [address] Performed By: #### 1 4334-7, 42504-0 ####[facility] [id number] [place] [address] [place] MCH (RBC) [Entitic mass] 32.6 pg Normal 26.0-34.0 [facility] Comment on above: Order Comment: Speci men Type: BLOOD SPECIMENOrdering Facility: [facility] Address: [address] [place] [address] Performed By: #### 1 4334-7, 83459-8 ####[facility] [id number] [place] [address] [place] MCHC (RBC) [Mass/Vol] 32.6 g/dL Normal 30.5-36.0 [facility] Comment on above: Order Comment: Speci men Type: BLOOD SPECIMENOrdering Facility: [facility] Address: [address] [place] [address] Performed By: #### 1 4334-7, 34323-5 ####[facility] [id number] [place] [address] [place] MCV (RBC) [Entitic vol] 100.0 fL Normal 80.0-100.0 [facility] Comment on above: Order Comment: Speci men Type: BLOOD SPECIMENOrdering Facility: [facility] Address: [address] [place] [address] Performed By: #### 1 4334-7, 31105-7 ####[facility] [id number] [place] [address] [place] Nucleated RBC (Bld) [#/Vol] 10*3/uL Normal <0.01 [facility] Comment on above: Order Comment: Speci men Type: BLOOD SPECIMENOrdering Facility: [facility] Address: [address] [place] [address] Performed By: #### 1 4334-7, 11813-7 ####[facility] [id number] [place] [address] [place] Platelet mean volume (Bld) [Entitic vol] 9.6 fL Normal 9.0-12.7 [facility] Comment on above: Order Comment: Speci men Type: BLOOD SPECIMENOrdering Facility: [facility] Address: [address] [place] [address] Performed By: #### 1 4334-7, 75523-0 ####[facility] [id number] [place] [address] [place] Platelets (Bld) [#/Vol] 200 10*3/uL Normal 150-400 [facility] Comment on above: Order Comment: Speci men Type: BLOOD SPECIMENOrdering Facility: [facility] Address: [address] [place] [address] Performed By: #### 1 4334-7, 98790-5 ####[facility] [id number] [place] [address] [place] RBC (Bld) [#/Vol] 2.76 10*6/uL Low 3.90-5.20 [facility] Comment on above: Order Comment: Speci men Type: BLOOD SPECIMENOrdering Facility: [facility] Address: [address] [place] [address] Performed By: #### 1 4334-7, 04047-3 ####[facility] [id number] [place] [address] [place] WBC (Bld) [#/Vol] 4.82 10*3/uL Normal 3.70-11.00 [facility] Comment on above: Order Comment: Speci men Type: BLOOD SPECIMENOrdering Facility: [facility] Address: [address] [place] [address] Performed By: #### 1 4334-7, 79640-2 ####[facility] [id number] [place] [address] [place], Bld SerPl-sCncon [place] [Moles/Vol] 1.2 mmol/L Normal 0.6-1.2 [facility] Comment on above: Order Comment: Speci men Type: BLOOD SPECIMENOrdering Facility: [facility] Address: [address] [place] [address] Result Comment: Refe rence ranges and high/low indicator flags are provided as general guidelines only. The treating physician must determine appropriate target levels/dosing based on the specific clinical situation. Performed By: #### 1 4334-7, 43821-3 ####[facility] [id number] [place] [address] [place] NURSING PROGon 05-05-2024 NURSING PROG Normal [facility] NUTRITIONon 05-05-2024 NUTRITION Normal [facility] Renal function 2000 panelon 05-05-2024 Albumin [Mass/Vol] 3.0 g/dL Low 3.9-4.9 [facility] Comment on above: Order Comment: Speci men Type: BLOOD SPECIMENOrdering Facility: [facility] Address: [address] [place] [address] Performed By: #### 2 4362-6 ####[facility] [id number] [place] [address] [place] Anion gap [Moles/Vol] 8 mmol/L Normal 8-15 [facility] Comment on above: Order Comment: Speci men Type: BLOOD SPECIMENOrdering Facility: [facility] Address: [address] [place] [address] Performed By: #### 2 4362-6 ####[facility] [id number] [place] [id number] [place] Calcium [Mass/Vol] 10.1 mg/dL Normal 8.5-10.2 [facility] Comment on above: Order Comment: Speci men Type: BLOOD SPECIMENOrdering Facility: [facility] Address: [address] [place] [address] Performed By: #### 2 4362-6 ####[facility] [id number] [place] [id number] [place] Chloride [Moles/Vol] 108 mmol/L High 98-107 [facility] Comment on above: Order Comment: Speci men Type: BLOOD SPECIMENOrdering Facility: [facility] Address: [address] [place] [address] Performed By: #### 2 4362-6 ####[facility] [id number] [place] [address] [place] CO2 [Moles/Vol] 20 mmol/L Low 22-30 [facility] Comment on above: Order Comment: Speci men Type: BLOOD SPECIMENOrdering Facility: [facility] Address: [address] [place] [address] Performed By: #### 2 4362-6 ####[facility] [id number] [place] [address] [place] Creatinine [Mass/Vol] 1.45 mg/dL High 0.58-0.96 [facility] Comment on above: Order Comment: Speci men Type: BLOOD SPECIMENOrdering Facility: [facility] Address: [address] [place] [address] Performed By: #### 2 4362-6 ####[facility] [id number] [address] [place] Creatinine and Glomerular filtration rate.predicted panel (S/P/Bld) 41 mL/min/1.73m??? Low >=60 [facility] Comment on above: Order Comment: Speci men Type: BLOOD SPECIMENOrdering Facility: [facility] Address: [address] [place] [address] Result Comment: Carmen mated Glomerular Filtration Rate [...] actual GFR. Performed By: #### 2 4362-6 ####[facility] [id number] [address] [address] [place] Glucose [Mass/Vol] 143 mg/dL High 74-99 [facility] Comment on above: Order Comment: Speci men Type: BLOOD SPECIMENOrdering Facility: [facility] Address: [address] [place] [address] Result Comment: The [place] Diabetes Association (ADA) provides guidance for cutoff [...] Standards of Medical Care in Diabetes 2016, [place] [employer]. Diabetes Care. 2016.39(Suppl 1). Performed By: #### 2 4362-6 ####[facility] [id number] [place] [address] [place] Phosphate [Mass/Vol] 3.0 mg/dL Normal 2.7-4.8 [facility] Comment on above: Order Comment: Speci men Type: BLOOD SPECIMENOrdering Facility: [facility] Address: [address] [place] [address] Performed By: #### 2 4362-6 ####[facility] [id number] [address] [address] [place] Potassium [Moles/Vol] 3.7 mmol/L Normal 3.7-5.1 [facility] Comment on above: Order Comment: Speci men Type: BLOOD SPECIMENOrdering Facility: [facility] Address: [address] [place], [place] [address] Performed By: #### 2 4362-6 ####[facility] [id number] [place] [address] [place] Sodium [Moles/Vol] 136 mmol/L Normal 136-144 [facility] Comment on above: Order Comment: Speci men Type: BLOOD SPECIMENOrdering Facility: [facility] Address: [address] [place] [address] Performed By: #### 2 4362-6 ####[facility] [id number] [place] [address] [place] Urea nitrogen [Mass/Vol] 18 mg/dL Normal 7-21 [facility] Comment on above: Order Comment: Speci men Type: BLOOD SPECIMENOrdering Facility: [facility] Address: [address] [place] [address] Performed By: #### 2 4362-6 ####[facility] [id number] [place] [address] [place] Albumin [Mass/Vol] 3.2 g/dL Low 3.9-4.9 [facility] Comment on above: Order Comment: Speci men Type: BLOOD SPECIMENOrdering Facility: [facility] Address: [address] [place] [address] Performed By: #### 2 4362-6 ####[facility] [id number] [place] [address] [place] Anion gap [Moles/Vol] 9 mmol/L Normal 8-15 [facility] Comment on above: Order Comment: Speci men Type: BLOOD SPECIMENOrdering Facility: [facility] Address: [address] [place], [place] [address] Performed By: #### 2 4362-6 ####[facility] [id number] [place] [address] [place] Calcium [Mass/Vol] 10.3 mg/dL High 8.5-10.2 [facility] Comment on above: Order Comment: Speci men Type: BLOOD SPECIMENOrdering Facility: [facility] Address: [address] [place] [address] Performed By: #### 2 4362-6 ####[facility] [id number] [place] [address] [place] Chloride [Moles/Vol] 108 mmol/L High 98-107 [facility] Comment on above: Order Comment: Speci men Type: BLOOD SPECIMENOrdering Facility: [facility] Address: [address] [place] [address] Performed By: #### 2 4362-6 ####[facility] [id number] [place] [address] [place] CO2 [Moles/Vol] 20 mmol/L Low 22-30 [facility] Comment on above: Order Comment: Speci men Type: BLOOD SPECIMENOrdering Facility: [facility] Address: [address] [place] [address] Performed By: #### 2 4362-6 ####[facility] [id number] [place] [address] [place] Creatinine [Mass/Vol] 1.46 mg/dL High 0.58-0.96 [facility] Comment on above: Order Comment: Speci men Type: BLOOD SPECIMENOrdering Facility: [facility] Address: [address] [place] [address] Performed By: #### 2 4362-6 ####[facility] [id number] [place] [address] [place] Creatinine and Glomerular filtration rate.predicted panel (S/P/Bld) 41 mL/min/1.73m??? Low >=60 [facility] Comment on above: Order Comment: Speci men Type: BLOOD SPECIMENOrdering Facility: [facility] Address: [address] [place] [address] Result Comment: Carmen mated Glomerular Filtration Rate [...] actual GFR. Performed By: #### 2 4362-6 ####[facility] [id number] [place] [address] [place] Glucose [Mass/Vol] 129 mg/dL High 74-99 [facility] Comment on above: Order Comment: Paco fenton Type: BLOOD SPECIMENOrdering Facility: [facility] Address: [address] [place] [address] Result Comment: The [place] Diabetes Association (ADA) provides guidance for cutoff [...] Standards of Medical Care in Diabetes 2016, [place] [employer]. Diabetes Care. 2016.39(Suppl 1). Performed By: #### 2 4362-6 ####[facility] [id number] [place] [id number] [place] Phosphate [Mass/Vol] 2.9 mg/dL Normal 2.7-4.8 [facility] Comment on above: Order Comment: Paco fenton Type: BLOOD SPECIMENOrdering Facility: [facility] Address: [address] [place] [address] Performed By: #### 2 4362-6 ####[facility] [id number] [address] [address] [place] Potassium [Moles/Vol] 4.1 mmol/L Normal 3.7-5.1 [facility] Comment on above: Order Comment: Speci men Type: BLOOD SPECIMENOrdering Facility: [facility] Address: [address] [place] [address] Performed By: #### 2 4362-6 ####[facility] [id number] [address] [address] [place] Sodium [Moles/Vol] 137 mmol/L Normal 136-144 [facility] Comment on above: Order Comment: Speci men Type: BLOOD SPECIMENOrdering Facility: [facility] Address: [address] [place] [address] Performed By: #### 2 4362-6 ####[facility] [id number] [place] [address] [place] Urea nitrogen [Mass/Vol] 18 mg/dL Normal 7-21 [facility] Comment on above: Order Comment: Speci men Type: BLOOD SPECIMENOrdering Facility: [facility] Address: [address] [place] [address] Performed By: #### 2 4362-6 ####[facility] [id number] [place] [address] [place] SOCIAL WORKon 05-05-2024 SOCIAL WORK Normal [facility] THERAPY NTon 05-05-2024 THERAPY NT Normal [facility] BRIEF OP NOTon 05-04-2024 BRIEF OP NOT Normal [facility] CASE MANAGEMon 05-04-2024 CASE MANAGEM Normal [facility] CBC panel Auto (Bld)on 05-04 Erythrocyte distribution width (RBC) [Ratio] 17.9 % High 11.5-15.0 [facility] Comment on above: Order Comment: Speci men Type: BLOOD SPECIMENOrdering Facility: [facility] Address: [address] [place] [address] Performed By: #### 5 8410-2 ####[facility] [id number] [place] [address] [place] Hematocrit (Bld) [Volume fraction] 28.2 % Low 36.0-46.0 [facility] Comment on above: Order Comment: Speci men Type: BLOOD SPECIMENOrdering Facility: [facility] Address: [address] [place] [address] Performed By: #### 5 8410-2 ####[facility] [id number] [place] [address] [place] Hemoglobin (Bld) [Mass/Vol] 9.0 g/dL Low 11.5-15.5 [facility] Comment on above: Order Comment: Speci men Type: BLOOD SPECIMENOrdering Facility: [facility] Address: [address] [place] [address] Performed By: #### 5 8410-2 ####[facility] [id number] [place] [address] [place] MCH (RBC) [Entitic mass] 32.8 pg Normal 26.0-34.0 [facility] Comment on above: Order Comment: Speci men Type: BLOOD SPECIMENOrdering Facility: [facility] Address: [address] [place] [address] Performed By: #### 5 8410-2 ####[facility] [id number] [place] [address] [place] MCHC (RBC) [Mass/Vol] 31.9 g/dL Normal 30.5-36.0 [facility] Comment on above: Order Comment: Speci men Type: BLOOD SPECIMENOrdering Facility: [facility] Address: [address] [place] [address] Performed By: #### 5 8410-2 ####[facility] [id number] [place] [address] [place] MCV (RBC) [Entitic vol] 102.9 fL High 80.0-100.0 [facility] Comment on above: Order Comment: Speci men Type: BLOOD SPECIMENOrdering Facility: [facility] Address: [address] [place] [address] Performed By: #### 5 8410-2 ####[facility] [id number] [place] [address] [place] Nucleated RBC (Bld) [#/Vol] 10*3/uL Normal <0.01 [facility] Comment on above: Order Comment: Speci men Type: BLOOD SPECIMENOrdering Facility: [facility] Address: [address] [place] [address] Performed By: #### 5 8410-2 ####[facility] [id number] [place] [address] [place] Platelet mean volume (Bld) [Entitic vol] 10.0 fL Normal 9.0-12.7 [facility] Comment on above: Order Comment: Speci men Type: BLOOD SPECIMENOrdering Facility: [facility] Address: [address] [place] [address] Performed By: #### 5 8410-2 ####[facility] [id number] [place] [address] [place] Platelets (Bld) [#/Vol] 201 10*3/uL Normal 150-400 [facility] Comment on above: Order Comment: Speci men Type: BLOOD SPECIMENOrdering Facility: [facility] Address: [address] [place] [address] Performed By: #### 5 8410-2 ####[facility] [id number] [place] [address] [place] RBC (Bld) [#/Vol] 2.74 10*6/uL Low 3.90-5.20 [facility] Comment on above: Order Comment: Speci men Type: BLOOD SPECIMENOrdering Facility: [facility] Address: [address] [place] [address] Performed By: #### 5 8410-2 ####[facility] [id number] [place] [address] [place] WBC (Bld) [#/Vol] 5.08 10*3/uL Normal 3.70-11.00 [facility] Comment on above: Order Comment: Speci men Type: BLOOD SPECIMENOrdering Facility: [facility] Address: [address] [place] [address] Performed By: #### 5 8410-2 ####[facility] [id number] [place] [address] [place] Erythrocyte distribution width (RBC) [Ratio] 18.0 % High 11.5-15.0 [facility] Comment on above: Order Comment: Speci men Type: BLOOD SPECIMENOrdering Facility: [facility] Address: [address] [place] [address] Performed By: #### 5 8410-2 ####[facility] [id number] [place] [address] [place] Hematocrit (Bld) [Volume fraction] 24.8 % Low 36.0-46.0 [facility] Comment on above: Order Comment: Speci men Type: BLOOD SPECIMENOrdering Facility: [facility] Address: [address] [place] [address] Performed By: #### 5 8410-2 ####[facility] [id number] [place] [address] [place] Hemoglobin (Bld) [Mass/Vol] 8.1 g/dL Low 11.5-15.5 [facility] Comment on above: Order Comment: Speci men Type: BLOOD SPECIMENOrdering Facility: [facility] Address: [address] [place] [address] Performed By: #### 5 8410-2 ####[facility] [id number] [place] [address] [place] MCH (RBC) [Entitic mass] 33.5 pg Normal 26.0-34.0 [facility] Comment on above: Order Comment: Speci men Type: BLOOD SPECIMENOrdering Facility: [facility] Address: [address] [place] [address] Performed By: #### 5 8410-2 ####[facility] [id number] [place] [address] [place] MCHC (RBC) [Mass/Vol] 32.7 g/dL Normal 30.5-36.0 [facility] Comment on above: Order Comment: Speci men Type: BLOOD SPECIMENOrdering Facility: [facility] Address: [address] [place] [address] Performed By: #### 5 8410-2 ####[facility] [id number] [place] [address] [place] MCV (RBC) [Entitic vol] 102.5 fL High 80.0-100.0 [facility] Comment on above: Order Comment: Speci men Type: BLOOD SPECIMENOrdering Facility: [facility] Address: [address] [place] [address] Performed By: #### 5 8410-2 ####[facility] [id number] [place] [address] [place] Nucleated RBC (Bld) [#/Vol] 10*3/uL Normal <0.01 [facility] Comment on above: Order Comment: Speci men Type: BLOOD SPECIMENOrdering Facility: [facility] Address: [address] [place] [address] Performed By: #### 5 8410-2 ####[facility] [id number] [place] [address] [place] Platelet mean volume (Bld) [Entitic vol] 9.8 fL Normal 9.0-12.7 [facility] Comment on above: Order Comment: Speci men Type: BLOOD SPECIMENOrdering Facility: [facility] Address: [address] [place] [address] Performed By: #### 5 8410-2 ####[facility] [id number] [place] [address] [place] Platelets (Bld) [#/Vol] 177 10*3/uL Normal 150-400 [facility] Comment on above: Order Comment: Speci men Type: BLOOD SPECIMENOrdering Facility: [facility] Address: [address] [place] [address] Performed By: #### 5 8410-2 ####[facility] [id number] [place] [address] [place] RBC (Bld) [#/Vol] 2.42 10*6/uL Low 3.90-5.20 [facility] Comment on above: Order Comment: Speci men Type: BLOOD SPECIMENOrdering Facility: [facility] Address: [address] [place] [address] Performed By: #### 5 8410-2 ####[facility] [id number] [place] [address] [place] WBC (Bld) [#/Vol] 3.81 10*3/uL Normal 3.70-11.00 [facility] Comment on above: Order Comment: Speci men Type: BLOOD SPECIMENOrdering Facility: [facility] Address: [address] [place] [address] Performed By: #### 5 8410-2 ####[facility] [id number] [place] [address] [place] CONSULTon 05-04-2024 CONSULT Normal [facility] CONSULT Normal [facility] IR FILTER PLACEMENT IVCon IR FILTER PLACEMENT IVC Normal [facility] NURSING PROGon 05-04-2024 NURSING PROG Normal [facility] PT EDon 05-04-2024 PT ED Normal [facility] Renal function 2000 panelon 05-04-2024 Albumin [Mass/Vol] 2.6 g/dL Low 3.9-4.9 [facility] Comment on above: Order Comment: Speci men Type: BLOOD SPECIMENOrdering Facility: [facility] Address: [address] [place] [address] Performed By: #### 2 4362-6 ####[facility] [id number] [place] [address] [place] Anion gap [Moles/Vol] 8 mmol/L Normal 8-15 [facility] Comment on above: Order Comment: Speci men Type: BLOOD SPECIMENOrdering Facility: [facility] Address: [address] [place] [address] Performed By: #### 2 4362-6 ####[facility] [id number] [place] [address] [place] Calcium [Mass/Vol] 9.4 mg/dL Normal 8.5-10.2 [facility] Comment on above: Order Comment: Speci men Type: BLOOD SPECIMENOrdering Facility: [facility] Address: [address] [place] [address] Performed By: #### 2 4362-6 ####[facility] [id number] [place] [address] [place] Chloride [Moles/Vol] 112 mmol/L High 98-107 [facility] Comment on above: Order Comment: Speci men Type: BLOOD SPECIMENOrdering Facility: [facility] Address: [address] [place] [address] Performed By: #### 2 4362-6 ####[facility] [id number] [place] [address] [place] CO2 [Moles/Vol] 20 mmol/L Low 22-30 [facility] Comment on above: Order Comment: Speci men Type: BLOOD SPECIMENOrdering Facility: [facility] Address: [address] [place] [address] Performed By: #### 2 4362-6 ####[facility] [id number] [address] [place] [facility] Creatinine [Mass/Vol] 0.93 mg/dL Normal 0.58-0.96 [facility] Comment on above: Order Comment: Paco fenton Type: BLOOD SPECIMENOrdering Facility: [facility] Address: [address] [place] [address] Performed By: #### 2 4362-6 ####[facility] [id number] [address] STATES OF [facility] Creatinine and Glomerular filtration rate.predicted panel (S/P/Bld) 71 mL/min/1.73m??? Normal >=60 [facility] Comment on above: Order Comment: Paco fenton Type: BLOOD SPECIMENOrdering Facility: [facility] Address: [address] [place] [address] Result Comment: Carmen mated Glomerular Filtration Rate [...] actual GFR. Performed By: #### 2 4362-6 ####[facility] [id number] [place] [address] [place] Glucose [Mass/Vol] 166 mg/dL High 74-99 [facility] Comment on above: Order Comment: Paco fenton Type: BLOOD SPECIMENOrdering Facility: [facility] Address: [address] [place] [address] Result Comment: The [place] Diabetes Association (ADA) provides guidance for cutoff [...] Standards of Medical Care in Diabetes 2016, [place] [employer]. Diabetes Care. 2016.39(Suppl 1). Performed By: #### 2 4362-6 ####[facility]CL[facility] [id number] [place] [address] [place] Phosphate [Mass/Vol] 1.7 mg/dL Low 2.7-4.8 [facility] Comment on above: Order Comment: Speci men Type: BLOOD SPECIMENOrdering Facility: [facility] Address: [address] [place] [address] Performed By: #### 2 4362-6 ####[facility] [id number] [place] [address] [place] Potassium [Moles/Vol] 3.5 mmol/L Low 3.7-5.1 [facility] Comment on above: Order Comment: Neelimai men Type: BLOOD SPECIMENOrdering Facility: [facility] Address: [address] [place] [address] Performed By: #### 2 4362-6 ####[facility]CL[facility] [id number] [place] [address] [place] Sodium [Moles/Vol] 140 mmol/L Normal 136-144 [facility] Comment on above: Order Comment: Speci men Type: BLOOD SPECIMENOrdering Facility: [facility] Address: [address] [place] [address] Performed By: #### 2 4362-6 ####[facility] [id number] [place] [address] [place] Urea nitrogen [Mass/Vol] 9 mg/dL Normal 7-21 [facility] Comment on above: Order Comment: Speci men Type: BLOOD SPECIMENOrdering Facility: [facility] Address: [address] [place] [address] Performed By: #### 2 4362-6 ####[facility] [id number] [place] [address] [place] THERAPY NTon 05-04-2024 THERAPY NT Normal [facility] US DVT LOWER BILon US DVT LOWER BUDDY Normal [facility] ALLIED HEALTHon 05-03-2024 ALLIED HEALTH Normal [facility] CASE MGT INIT ASSESon 2023 CASE MGT INIT ASSES Normal [facility] CBC panel Auto (Bld)on 05-03 Erythrocyte distribution width (RBC) [Ratio] 18.4 % High 11.5-15.0 [facility] Comment on above: Order Comment: Speci men Type: BLOOD SPECIMENOrdering Facility: [facility] Address: [address] [place] [address] Performed By: #### 5 8410-2 ####[facility] [id number] [place] [address] [place] Hematocrit (Bld) [Volume fraction] 26.9 % Low 36.0-46.0 [facility] Comment on above: Order Comment: Speci men Type: BLOOD SPECIMENOrdering Facility: [facility] Address: [address] [place] [address] Performed By: #### 5 8410-2 ####[facility] [id number] [place] [address] [place] Hemoglobin (Bld) [Mass/Vol] 8.8 g/dL Low 11.5-15.5 [facility] Comment on above: Order Comment: Speci men Type: BLOOD SPECIMENOrdering Facility: [facility] Address: [address] [place] [address] Performed By: #### 5 8410-2 ####[facility] [id number] [place] [address] [place] MCH (RBC) [Entitic mass] 32.7 pg Normal 26.0-34.0 [facility] Comment on above: Order Comment: Speci men Type: BLOOD SPECIMENOrdering Facility: [facility] Address: [address] [place] [address] Performed By: #### 5 8410-2 ####[facility] [id number] [place] [address] [place] MCHC (RBC) [Mass/Vol] 32.7 g/dL Normal 30.5-36.0 [facility] Comment on above: Order Comment: Speci men Type: BLOOD SPECIMENOrdering Facility: [facility] Address: [address] [place] [address] Performed By: #### 5 8410-2 ####[facility] [id number] [place] [address] [place] MCV (RBC) [Entitic vol] 100.0 fL Normal 80.0-100.0 [facility] Comment on above: Order Comment: Speci men Type: BLOOD SPECIMENOrdering Facility: [facility] Address: [address] [place] [address] Performed By: #### 5 8410-2 ####[facility] [id number] [place] [address] [place] Nucleated RBC (Bld) [#/Vol] 10*3/uL Normal <0.01 [facility] Comment on above: Order Comment: Speci men Type: BLOOD SPECIMENOrdering Facility: [facility] Address: [address] [place] [address] Performed By: #### 5 8410-2 ####[facility] [id number] [place] [address] [place] Platelet mean volume (Bld) [Entitic vol] 9.5 fL Normal 9.0-12.7 [facility] Comment on above: Order Comment: Speci men Type: BLOOD SPECIMENOrdering Facility: [facility] Address: [address] [place] [address] Performed By: #### 5 8410-2 ####[facility] [id number] [address] [address] [place] Platelets (Bld) [#/Vol] 191 10*3/uL Normal 150-400 [facility] Comment on above: Order Comment: Speci men Type: BLOOD SPECIMENOrdering Facility: [facility] Address: [address] [place] [address] Performed By: #### 5 8410-2 ####[facility] [id number] [place] [address] [place] RBC (Bld) [#/Vol] 2.69 10*6/uL Low 3.90-5.20 [facility] Comment on above: Order Comment: Speci men Type: BLOOD SPECIMENOrdering Facility: [facility] Address: [address] [place] [address] Performed By: #### 5 8410-2 ####[facility] [id number] [place] [address] [place] WBC (Bld) [#/Vol] 4.40 10*3/uL Normal 3.70-11.00 [facility] Comment on above: Order Comment: Speci men Type: BLOOD SPECIMENOrdering Facility: [facility] Address: [address] [place] [address] Performed By: #### 5 8410-2 ####[facility] [id number] [place] [address] [place] Erythrocyte distribution width (RBC) [Ratio] 19.0 % High 11.5-15.0 [facility] Comment on above: Order Comment: Speci men Type: BLOOD SPECIMENOrdering Facility: [facility] Address: [address] [place] [address] Performed By: #### 5 8410-2 ####[facility] [id number] [place] [address] [place] Hematocrit (Bld) [Volume fraction] 24.5 % Low 36.0-46.0 [facility] Comment on above: Order Comment: Speci men Type: BLOOD SPECIMENOrdering Facility: [facility] Address: [address] [place] [address] Performed By: #### 5 8410-2 ####[facility] [id number] [place] [address] [place] Hemoglobin (Bld) [Mass/Vol] 8.1 g/dL Low 11.5-15.5 [facility] Comment on above: Order Comment: Speci men Type: BLOOD SPECIMENOrdering Facility: [facility] Address: [address] [place] [address] Performed By: #### 5 8410-2 ####[facility] [id number] [place] [address] [place] MCH (RBC) [Entitic mass] 33.5 pg Normal 26.0-34.0 [facility] Comment on above: Order Comment: Speci men Type: BLOOD SPECIMENOrdering Facility: [facility] Address: [address] [place] [address] Performed By: #### 5 8410-2 ####[facility] [id number] [place] [address] [place] MCHC (RBC) [Mass/Vol] 33.1 g/dL Normal 30.5-36.0 [facility] Comment on above: Order Comment: Speci men Type: BLOOD SPECIMENOrdering Facility: [facility] Address: [address] [place] [address] Performed By: #### 5 8410-2 ####[facility]CL[facility] [id number] [place] [address] [place] MCV (RBC) [Entitic vol] 101.2 fL High 80.0-100.0 [facility] Comment on above: Order Comment: Speci men Type: BLOOD SPECIMENOrdering Facility: [facility] Address: [address] [place] [address] Performed By: #### 5 8410-2 ####[facility] [id number] [place] [address] [place] Nucleated RBC (Bld) [#/Vol] 10*3/uL Normal <0.01 [facility] Comment on above: Order Comment: Speci men Type: BLOOD SPECIMENOrdering Facility: [facility] Address: [address] [place] [address] Performed By: #### 5 8410-2 ####[facility] [id number] [place] [address] [place] Platelet mean volume (Bld) [Entitic vol] 9.3 fL Normal 9.0-12.7 [facility] Comment on above: Order Comment: Speci men Type: BLOOD SPECIMENOrdering Facility: [facility] Address: [address] [place] [address] Performed By: #### 5 8410-2 ####[facility] [id number] [place] [address] [place] Platelets (Bld) [#/Vol] 182 10*3/uL Normal 150-400 [facility] Comment on above: Order Comment: Speci men Type: BLOOD SPECIMENOrdering Facility: [facility] Address: [address] [place] [address] Performed By: #### 5 8410-2 ####[facility] [id number] [place] [address] [place] RBC (Bld) [#/Vol] 2.42 10*6/uL Low 3.90-5.20 [facility] Comment on above: Order Comment: Speci men Type: BLOOD SPECIMENOrdering Facility: [facility] Address: [address] [place] [address] Performed By: #### 5 8410-2 ####[facility]CL[facility] [id number] [place] [address] [place] WBC (Bld) [#/Vol] 3.56 10*3/uL Low 3.70-11.00 [facility] Comment on above: Order Comment: Speci men Type: BLOOD SPECIMENOrdering Facility: [facility] Address: [address] [place] [address] Performed By: #### 5 8410-2 ####[facility] [id number] [place] [address] [place] CONFIRM BLOOD TYPEon 024 ABO A Normal [facility] Comment on above: Order Comment: Speci men Type: BLOOD SPECIMENOrdering Facility: [facility] Address: [address] [place] [address] Performed By: #### C ONABO ####[facility] BLOOD BANKIA [id number] [place] [address] [place] Rh Nom (Bld) Positive Normal [facility] Comment on above: Order Comment: Speci men Type: BLOOD SPECIMENOrdering Facility: [facility] Address: [address] [place] [address] Performed By: #### C ONABO ####[facility] BLOOD BANKIA [id number] [place] [address] [place] CONSULTon 05-03-2024 CONSULT Normal [facility] CONSULT Normal [facility] Comprehensive metabolic 2000 panelon 05-03-2024 Albumin [Mass/Vol] 2.9 g/dL Low 3.9-4.9 [facility] Comment on above: Order Comment: Speci men Type: BLOOD SPECIMENOrdering Facility: [facility] Address: [address] [place] [address] Performed By: #### 2 4323-8, HSTNT, 2132-05 ####[facility] [id number] [address] [address] [place] ALP [Catalytic activity/Vol] 70 U/L Normal 34-123 [facility] Comment on above: Order Comment: Speci men Type: BLOOD SPECIMENOrdering Facility: [facility] Address: [address] [place] [address] Performed By: #### 2 4323-8, HSTNT, 2132-05 ####[facility] [id number] [place] [address] [place] ALT [Catalytic activity/Vol] 9 U/L Normal 7-38 [facility] Comment on above: Order Comment: Speci men Type: BLOOD SPECIMENOrdering Facility: [facility] Address: [address] [place] [address] Performed By: #### 2 432-8, HSTNT, 2132-05 ####[facility] [id number] [place] [address] [place] Anion gap [Moles/Vol] 9 mmol/L Normal 8-15 [facility] Comment on above: Order Comment: Speci men Type: BLOOD SPECIMENOrdering Facility: [facility] Address: [address] [place] [address] Performed By: #### 2 4323-8, HSTNT, 2132-05 ####[facility] [id number] [address] [address] [place] AST [Catalytic activity/Vol] 25 U/L Normal 13-35 [facility] Comment on above: Order Comment: Speci men Type: BLOOD SPECIMENOrdering Facility: [facility] Address: [address] [place] [address] Performed By: #### 2 4323-8, HSTNT, 2132-05 ####[facility] [id number] [address] [address] [place] Bilirubin [Mass/Vol] 0.5 mg/dL Normal 0.2-1.3 [facility] Comment on above: Order Comment: Speci men Type: BLOOD SPECIMENOrdering Facility: [facility] Address: [address] [place] [address] Performed By: #### 2 4323-8, HSTNT, 2132-05 ####[facility] [id number] [place] [address] [place] Calcium [Mass/Vol] 9.2 mg/dL Normal 8.5-10.2 [facility] Comment on above: Order Comment: Speci men Type: BLOOD SPECIMENOrdering Facility: [facility] Address: [address] [place] [address] Performed By: #### 2 432-8, HSTNT, 2132-05 ####[facility] [id number] [place] [address] [place] Chloride [Moles/Vol] 113 mmol/L High 98-107 [facility] Comment on above: Order Comment: Speci men Type: BLOOD SPECIMENOrdering Facility: [facility] Address: [address] [place] [address] Performed By: #### 2 4323-8, HSTNT, 2132-05 ####[facility] [id number] [place] [address] [place] CO2 [Moles/Vol] 22 mmol/L Normal 22-30 [facility] Comment on above: Order Comment: Speci men Type: BLOOD SPECIMENOrdering Facility: [facility] Address: [address] [place] [address] Performed By: #### 2 4323-8, HSTNT, 2132-05 ####[facility] [id number] [place] [address] [place] Creatinine [Mass/Vol] 0.88 mg/dL Normal 0.58-0.96 [facility] Comment on above: Order Comment: Paco fenton Type: BLOOD SPECIMENOrdering Facility: [facility] Address: [address] [place] [address] Performed By: #### 2 4323-8, HSTNT, 2132-05 ####[facility] [id number] [address] OF [facility] Creatinine and Glomerular filtration rate.predicted panel (S/P/Bld) 75 mL/min/1.73m??? Normal >=60 [facility] Comment on above: Order Comment: Paco fenton Type: BLOOD SPECIMENOrdering Facility: [facility] Address: [address] [place] [address] Result Comment: Carmen mated Glomerular Filtration Rate [...] Performed By: #### 2 4323-8, HSTNT, 2132-05 ####[facility] [id number] [place] [address] [place] Glucose [Mass/Vol] 134 mg/dL High 74-99 [facility] Comment on above: Order Comment: Paco fenton Type: BLOOD SPECIMENOrdering Facility: [facility] Address: [address] [place] [address] Result Comment: The [place] Diabetes Association (ADA) provides guidance for cutoff [...] Standards of Medical Care in Diabetes 2016, [place] [employer]. Diabetes Care. 2016.39(Suppl 1). Performed By: #### 2 4323-8, HSTNT, 2132-05 ####[facility] [id number] [place] [address] [place] Potassium [Moles/Vol] 3.3 mmol/L Low 3.7-5.1 [facility] Comment on above: Order Comment: Speci men Type: BLOOD SPECIMENOrdering Facility: [facility] Address: [address] [place] [address] Performed By: #### 2 432-8, HSTNT, 2132-05 ####[facility] [id number] [place] [address] [place] Protein [Mass/Vol] 5.4 g/dL Low 6.3-8.0 [facility] Comment on above: Order Comment: Speci men Type: BLOOD SPECIMENOrdering Facility: [facility] Address: [address] [place] [address] Performed By: #### 2 432-8, HSTNT, 2132-05 ####[facility] [id number] [place] [address] [place] Sodium [Moles/Vol] 144 mmol/L Normal 136-144 [facility] Comment on above: Order Comment: Speci men Type: BLOOD SPECIMENOrdering Facility: [facility] Address: [address] [place] [address] Performed By: #### 2 4323-8, HSTNT, 2132-05 ####[facility] [id number] [address] [address] [place] Urea nitrogen [Mass/Vol] 15 mg/dL Normal 7-21 [facility] Comment on above: Order Comment: Speci men Type: BLOOD SPECIMENOrdering Facility: [facility] Address: [address] [place] [address] Performed By: #### 2 4323-8, HSTNT, 2132-05 ####[facility] [id number] [address] [address] [place] ECG COMPLETEon 05-03-2024 ECG COMPLETE Normal [facility] HIGH SENSITIVITY TROPONIN To n 05-03-2024 Troponin T.cardiac High sensitivity method [Mass/Vol] 109 ng/L High <12 [facility] Comment on above: Order Comment: Speci men Type: BLOOD SPECIMENOrdering Facility: [facility] Address: [address] [place] [address] Performed By: #### H STNT ####[facility] [id number] [place] [address] [place] Troponin T.cardiac High sensitivity method [Mass/Vol] 114 ng/L High <12 [facility] Comment on above: Order Comment: Speci men Type: BLOOD SPECIMENOrdering Facility: [facility] Address: [address] [place] [address] Performed By: #### 2 4323-8, HSTNT, 2132-05 ####[facility] [id number] [place] [address] [place] HISTORY PHYSICALon HISTORY PHYSICAL Normal [facility] HISTORY PHYSICAL Normal [facility] HISTORY PHYSICAL Normal [facility] Hematocrit Auto (Bld) [Volum e fraction]on 05-03-2024 Hematocrit (Bld) [Volume fraction] 22.6 % Low 36.0-46.0 [facility] Comment on above: Order Comment: Speci men Type: BLOOD SPECIMENOrdering Facility: [facility] Address: [address] [place] [address] Performed By: #### 4 544-3 ####[facility] [id number] [address] [place], Bld SerPl-sCncon [place] [Moles/Vol] 0.1 mmol/L Low 0.6-1.2 [facility] Comment on above: Order Comment: Paco fenton Type: BLOOD SPECIMENOrdering Facility: [facility] Address: [address] [place] [address] Result Comment: Refe rence ranges and high/low indicator flags are provided as general guidelines only. The treating physician must determine appropriate target levels/dosing based on the specific clinical situation. Performed By: #### 1 4334-7, 26845-7 ####[facility] [id number] [address] [place] NURSING PROGon 05-03-2024 NURSING PROG Normal [facility] PT panel Coag (PPP)on 2023 INR Coag (PPP) [Relative time] 1.0 {INR} Normal 0.9-1.3 [facility] Comment on above: Order Comment: Paco fenton Type: BLOOD SPECIMENOrdering Facility: [facility] Address: [address] [place] [address] Result Comment: Nai min K Antagonist (VKA) Therapeutic Range: INR 2 to 3 (Target INR of 2.5)Note: For patients treated with VKA drugs, such as warfarin, the [place] [employer] 2012 Guideline recommends [...] of 3).Lyndsey GH, et al. Chest 2012, 141:7S-47SRuthy RA, et al. [facility] 2017, 70: 252-289 Performed By: #### 1 4979-9, 11058-2 ####[facility] [id number] [place] [address] [place] PT Coag (PPP) [Time] 10.7 s Normal 9.7-13.0 [facility] Comment on above: Order Comment: Speci men Type: BLOOD SPECIMENOrdering Facility: [facility] Address: [address] [place] [address] Performed By: #### 1 4979-9, 71199-7 ####[facility] [id number] [place] [address] [place] Renal function 2000 panelon 05-03-2024 Albumin [Mass/Vol] 3.0 g/dL Low 3.9-4.9 [facility] Comment on above: Order Comment: Speci men Type: BLOOD SPECIMENOrdering Facility: [facility] Address: [address] [place] [address] Performed By: #### 1 4334-7, 25952-1 ####[facility] [id number] [place] [address] [place] Anion gap [Moles/Vol] 8 mmol/L Normal 8-15 [facility] Comment on above: Order Comment: Speci men Type: BLOOD SPECIMENOrdering Facility: [facility] Address: [address] [place] [address] Performed By: #### 1 4334-7, 29310-1 ####[facility] [id number] [place] [id number] [place] Calcium [Mass/Vol] 9.5 mg/dL Normal 8.5-10.2 [facility] Comment on above: Order Comment: Speci men Type: BLOOD SPECIMENOrdering Facility: [facility] Address: [address] [place] [address] Performed By: #### 1 4334-7, 93197-5 ####[facility] [id number] [place] [address] [place] Chloride [Moles/Vol] 112 mmol/L High 98-107 [facility] Comment on above: Order Comment: Speci men Type: BLOOD SPECIMENOrdering Facility: [facility] Address: [address] [place] [address] Performed By: #### 1 4334-7, 49747-5 ####[facility] [id number] [place] [address] [place] CO2 [Moles/Vol] 22 mmol/L Normal 22-30 [facility] Comment on above: Order Comment: Speci men Type: BLOOD SPECIMENOrdering Facility: [facility] Address: [address] [place] [address] Performed By: #### 1 4334-7, 68897-3 ####[facility] [id number] [place] [address] [place] Creatinine [Mass/Vol] 0.93 mg/dL Normal 0.58-0.96 [facility] Comment on above: Order Comment: Speci men Type: BLOOD SPECIMENOrdering Facility: [facility] Address: [address] [place] [address] Performed By: #### 1 4334-7, 89765-1 ####[facility] [id number] [place] [address] [place] Creatinine and Glomerular filtration rate.predicted panel (S/P/Bld) 71 mL/min/1.73m??? Normal >=60 [facility] Comment on above: Order Comment: Speci men Type: BLOOD SPECIMENOrdering Facility: [facility] Address: [address] [place] [address] Result Comment: Carmen mated Glomerular Filtration Rate [...] actual GFR. Performed By: #### 1 4334-7, 26033-3 ####[facility] LABCLIA [id number] [address] [address] [place] Glucose [Mass/Vol] 154 mg/dL High 74-99 [facility] Comment on above: Order Comment: Paco fenton Type: BLOOD SPECIMENOrdering Facility: [facility] Address: [address] [place] [address] Result Comment: The [place] Diabetes Association (ADA) provides guidance for cutoff [...] Standards of Medical Care in Diabetes 2016, [place] [employer]. Diabetes Care. 2016.39(Suppl 1). Performed By: #### 1 4334-7, 71230-2 ####[facility] LABCLIA [id number] [place] [id number] [place] Phosphate [Mass/Vol] 1.5 mg/dL Low 2.7-4.8 [facility] Comment on above: Order Comment: Paco fenton Type: BLOOD SPECIMENOrdering Facility: [facility] Address: [address] [place] [address] Performed By: #### 1 4334-7, 16076-9 ####[facility]CLIA [id number] [address] [address] [place] Potassium [Moles/Vol] 4.0 mmol/L Normal 3.7-5.1 [facility] Comment on above: Order Comment: Speci men Type: BLOOD SPECIMENOrdering Facility: [facility] Address: [address] [place] [address] Performed By: #### 1 4334-7, 48998-0 ####[facility] LABIA [id number] [place] [address] [place] Sodium [Moles/Vol] 142 mmol/L Normal 136-144 [facility] Comment on above: Order Comment: Speci men Type: BLOOD SPECIMENOrdering Facility: [facility] Address: [address] [place] [address] Performed By: #### 1 4334-7, 57729-6 ####[facility] LABIA [id number] [place] [address] [place] Urea nitrogen [Mass/Vol] 10 mg/dL Normal 7-21 [facility] Comment on above: Order Comment: Speci men Type: BLOOD SPECIMENOrdering Facility: [facility] Address: [address] [place] [address] Performed By: #### 1 4334-7, 40427-0 ####[facility] LABIA [id number] [place] [address] [place] STAPHYLOCOCCUS AUREUS AND MR SA SCREEN, PCR, NASALon 05-03-2024 S. aureus and MRSA panel RICH+probe (Nose) Methicillin-SUSCEPTIBLE Staphylococcus aureus Detected Abnormal Not Detected [facility] Comment on above: Order Comment: Speci men Type: SWABOrdering Facility: [facility] Address: [address] [place] [address] Performed By: #### S APCR ####[facility] LABIA [id number] [place] [address] [place] THERAPY NTon 05-03-2024 THERAPY NT Normal [facility] THERAPY NT Normal [facility] TYPE + SCREENon 05-03-2024 ABO A Normal [facility] Comment on above: Order Comment: Speci men Type: BLOOD SPECIMENOrdering Facility: [facility] Address: [address] [place] [address] Performed By: #### T SCR ####[facility] BLO[facility] BANKCLIA [id number] [address] HISTORICAL AB SCR STATUS Negative Normal [facility] Comment on above: Order Comment: Speci men Type: BLOOD SPECIMENOrdering Facility: [facility] Address: [address] [place] [address] Performed By: #### T SCR ####[facility] BLOOD BANKCLIA [id number] [place] [address] [place] Rh Nom (Bld) Positive Normal [facility] Comment on above: Order Comment: Speci men Type: BLOOD SPECIMENOrdering Facility: [facility] Address: [address] [place] [address] Performed By: #### T SCR ####[facility] BLOOD BANKCLIA [id number] [place] [address] [place] TYPE AND SCREEN EXPIRATION 05/06/2024 23:59 Normal [facility] Comment on above: Order Comment: Speci men Type: BLOOD SPECIMENOrdering Facility: [facility] Address: [address] [place] [address] Performed By: #### T SCR ####[facility] BLOOD BANKCLIA [id number] [place] [address] [place] Vit B12 SerPl-ncon 05-03-2 024 Cobalamin (Vitamin B12) [Mass/Vol] 555 pg/mL Normal 232-1245 [facility] Comment on above: Order Comment: Speci men Type: BLOOD SPECIMENOrdering Facility: [facility] Address: [address] [place] [address] Performed By: #### 2 4323-8, HSTNT, 2132-9 ####[facility] LABCLIA [id number] [place] [address] [place] XR ABDOMEN 1V SUPINEon 08-28 -2024 XR ABDOMEN 1V SUPINE Normal [facility] aPTT PPPon 05-03-2024 aPTT Coag (PPP) [Time] 24.5 s Normal 23.0-32.4 [facility] Comment on above: Order Comment: Speci men Type: BLOOD SPECIMENOrdering Facility: [facility] Address: [address] [place] [address] Performed By: #### 1 4979-9, 88973-1 ####[facility] LABCLIA [id number] [facility] [place] [address] [place] APTTon 05-02-2024 aPTT Coag (Bld) [Time] 24.3 s Normal 23.0-36.5 [facility] Comment on above: Result Comment: IV Heparin Therapy Range: 66.0-92.0 sec Performed By: #### C MPX, PT, CDP, PTT #### [facility] [address] [place] [address] [employer]: Domo Nielsen MD CBC with Diffon 05-02-2024 Abs. Basophil 0.00 k/uL Normal 0.0-0.2 [facility] Comment on above: Performed By: #### F EBC, TSHX, B12FOL, FT4 #### [facility] [address] [place] [address] [employer]: Domo Nielsen MD Abs.Imm.Granulocyte 0.00 k/uL Normal 0.00-0.30 [facility] Comment on above: Performed By: #### F EBC, TSHX, B12FOL, FT4 #### [facility] [address] [place] [address] [employer]: Domo Nielsen MD Abs.Neutrophil (Seg) 4.15 k/uL Normal 1.8-7.7 [facility] Comment on above: Performed By: #### F EBC, TSHX, B12FOL, FT4 #### [address] [address] [employer]: Domo Nielsen MD Basophils/100 WBC (Bld) 0 % Normal 0-2 [facility] Comment on above: Performed By: #### F EBC, TSHX, B12FOL, FT4 #### [address] [address] [employer]: Domo Nielsen MD Eosinophils (Bld) [#/Vol] 0.00 10*3/uL Normal 0.0-0.4 [facility] Comment on above: Performed By: #### F EBC, TSHX, B12FOL, FT4 #### [address] [address] [employer]: Domo Nielsen MD Eosinophils/100 WBC (Bld) 0 % Low 1-4 [facility] Comment on above: Performed By: #### F EBC, TSHX, B12FOL, FT4 #### [address] [address] [employer]: Domo Nielsen MD Immature granulocytes/100 WBC (Bld) 0 % Normal 0 [facility] Comment on above: Performed By: #### F EBC, TSHX, B12FOL, FT4 #### [address] [address] [employer]: Domo Nielsen MD Lymphocytes (Bld) [#/Vol] 0.55 10*3/uL Low 1.0-4.8 [facility] Comment on above: Performed By: #### F EBC, TSHX, B12FOL, FT4 #### [address] [address] [employer]: Domo Nielsen MD Lymphocytes/100 WBC (Bld) 11 % Low 24-44 [facility] Comment on above: Performed By: #### F EBC, TSHX, B12FOL, FT4 #### [address] [address] [employer]: Domo Nielsen MD Monocytes (Bld) [#/Vol] 0.30 10*3/uL Normal 0.1-0.8 [facility] Comment on above: Performed By: #### F EBC, TSHX, B12FOL, FT4 #### [address] [address] [employer]: Domo Nielsen MD Monocytes/100 WBC (Bld) 6 % Normal 1-7 [facility] Comment on above: Performed By: #### F EBC, TSHX, B12FOL, FT4 #### [address] [address] [employer]: Domo Nielsen MD Morphology Ludin (Bld) [Interp] ANISOCYTOSIS PRESENT Normal [facility] Comment on above: Performed By: #### F EBC, TSHX, B12FOL, FT4 #### [address] [address] [employer]: Domo Nielsen MD Neutrophil (Seg) 83 % High 36-66 [facility] Comment on above: Performed By: #### F EBC, TSHX, B12FOL, FT4 #### [address] [address] [employer]: Domo Nielsen MD Erythrocyte distribution width (RBC) [Ratio] 19.4 % High 11.8-14.4 [facility] Comment on above: Performed By: #### F EBC, TSHX, B12FOL, FT4 #### [address] [address] [employer]: Domo Nielsen MD Hematocrit (Bld) [Volume fraction] 25.1 % Low 36.3-47.1 [facility] Comment on above: Performed By: #### F EBC, TSHX, B12FOL, FT4 #### [facility] [address] [place] [address] [employer]: Domo Nielsen MD Hemoglobin (Bld) [Mass/Vol] 8.3 g/dL Low 11.9-15.1 [facility] Comment on above: Performed By: #### F EBC, TSHX, B12FOL, FT4 #### [facility] [address] [place] [address] [employer]: Domo Nielsen MD MCH (RBC) [Entitic mass] 32.7 pg Normal 25.2-33.5 [facility] Comment on above: Performed By: #### F EBC, TSHX, B12FOL, FT4 #### [address] [address] [employer]: Domo Nielsen MD MCHC (RBC) [Mass/Vol] 33.1 g/dL Normal 28.4-34.8 [facility] Comment on above: Performed By: #### F EBC, TSHX, B12FOL, FT4 #### [facility] [address] [place] [address] [employer]: Domo Nielsen MD MCV (RBC) [Entitic vol] 98.8 fL Normal 82.6-102.9 [facility] Comment on above: Performed By: #### F EBC, TSHX, B12FOL, FT4 #### [facility] [address] [place] [address] [employer]: Domo Nielsen MD NRBC Automated 0.0 per 100 WBC Normal 0.0 [facility] Comment on above: Performed By: #### F EBC, TSHX, B12FOL, FT4 #### [facility] [address] [place] [phone] [employer]: Domo Nielsen MD Platelet mean volume (Bld) [Entitic vol] 9.8 fL Normal 8.1-13.5 [facility] Comment on above: Performed By: #### F EBC, TSHX, B12FOL, FT4 #### [facility] [place] [address] [employer]: Domo Nielsen MD Platelets (Bld) [#/Vol] 209 10*3/uL Normal 138-453 [facility] Comment on above: Performed By: #### F EBC, TSHX, B12FOL, FT4 #### [address] [address] [employer]: Domo Nielsen MD RBC (Bld) [#/Vol] 2.54 10*6/uL Low 3.95-5.11 [facility] Comment on above: Performed By: #### F EBC, TSHX, B12FOL, FT4 #### [facility] [address] [place] [address] [employer]: Domo Nielsen MD WBC (Bld) [#/Vol] 5.0 10*3/uL Normal 3.5-11.3 [facility] Comment on above: Performed By: #### F EBC, TSHX, B12FOL, FT4 #### [facility] [address] [place] [address] [employer]: Domo Nielsen MD CNPNon 05-02-2024 CNPN Normal [facility] Comp Metabolic Pr/rfx MGon 0 05-02-2024 Albumin [Mass/Vol] 3.3 g/dL Low 3.5-5.2 [facility] Comment on above: Performed By: #### C MPX, PT, CDP, PTT #### [facility] [address] [place] [address] [employer]: Domo Nielsen MD Albumin/Glob Ratio 2.0 Normal 1.0-2.5 [facility] Comment on above: Performed By: #### C MPX, PT, CDP, PTT #### [address] [address] [employer]: Domo Nielsen MD Alkaline Phos 69 U/L Normal 35-104 [facility] Comment on above: Performed By: #### C MPX, PT, CDP, PTT #### [address] [address] [employer]: Domo Nielsen MD ALT [Catalytic activity/Vol] 8 U/L Low 10-35 [facility] Comment on above: Performed By: #### C MPX, PT, CDP, PTT #### [address] [address] [employer]: Domo Nielsen MD Anion gap [Moles/Vol] 7 mmol/L Low 9-16 [facility] Comment on above: Performed By: #### C MPX, PT, CDP, PTT #### [address] [address] [employer]: Doom Nielsen MD AST [Catalytic activity/Vol] 32 U/L Normal 10-35 [facility] Comment on above: Performed By: #### C MPX, PT, CDP, PTT #### [address] [address] [employer]: Domo Nielsen MD Bilirubin [Mass/Vol] 0.6 mg/dL Normal 0.00-1.20 [facility] Comment on above: Performed By: #### C MPX, PT, CDP, PTT #### [facility] [address] [place] [address] [employer]: Domo Nielsen MD Calcium [Mass/Vol] 8.8 mg/dL Normal 8.6-10.4 [facility] Comment on above: Performed By: #### C MPX, PT, CDP, PTT #### [facility] [address] [place] [address] [employer]: Domo Nielsen MD Chloride [Moles/Vol] 111 mmol/L High 98-107 [facility] Comment on above: Performed By: #### C MPX, PT, CDP, PTT #### [facility] [address] [place] [address] [employer]: Domo Nielsen MD CO2 [Moles/Vol] 23 mmol/L Normal 20-31 [facility] Comment on above: Performed By: #### C MPX, PT, CDP, PTT #### [facility] [address] [place] [address] [employer]: Domo Nielsen MD Creatinine [Mass/Vol] 1.0 mg/dL High 0.50-0.90 [facility] Comment on above: Performed By: #### C MPX, PT, CDP, PTT #### [facility] [address] [place] [address] [employer]: Domo Nielsen MD GFR/1.73 sq M.predicted among non-blacks MDRD (S/P/Bld) [Vol rate/Area] 64 mL/min/{1.73_m2} Normal >60 [facility] Comment on above: Result Comment: These [...] #### C MPX, PT, CDP, PTT #### [facility] [address] [place] [address] [employer]: Domo Nielsen MD Glucose [Mass/Vol] 170 mg/dL High 74-99 [facility] Comment on above: Performed By: #### C MPX, PT, CDP, PTT #### [facility] [address] [place] [address] [employer]: Domo Nielsen MD Potassium [Moles/Vol] 3.7 mmol/L Normal 3.7-5.3 [facility] Comment on above: Performed By: #### C MPX, PT, CDP, PTT #### [facility] [address] [place] [address] [employer]: Domo Nielsen MD Protein [Mass/Vol] 5.5 g/dL Low 6.6-8.7 [facility] Comment on above: Performed By: #### C MPX, PT, CDP, PTT #### [facility] [address] [place] [address] [employer]: Domo Nielsen MD Sodium [Moles/Vol] 141 mmol/L Normal 136-145 [facility] Comment on above: Performed By: #### C MPX, PT, CDP, PTT #### [facility] [address] [place] [address] [employer]: Domo Nielsen MD Urea nitrogen [Mass/Vol] 22 mg/dL Normal 8-23 [facility] Comment on above: Performed By: #### C MPX, PT, CDP, PTT #### [facility] [address] [place] [address] [employer]: Domo Nielsen MD PTon 05-02-2024 INR Coag (PPP) [Relative time] 1.0 {INR} Normal [facility] Comment on above: Result Comment: Therapeutic Range: Moderate Anticoagulant Intensity: INR = 2.0-3.0 High Anticoagulant Intensity: INR = 2.5-3.5 Performed By: #### C MPX, PT, CDP, PTT #### [facility] [address] [place] [address] [employer]: Domo Nielsen MD PT Coag (PPP) [Time] 13.0 s Normal 11.7-14.9 [facility] Comment on above: Performed By: #### C MPX, PT, CDP, PTT #### [address] [address] [employer]: Domo Nielsen MD B12/Folate Panelon Cobalamin (Vitamin B12) [Mass/Vol] 730 pg/mL Normal 232-1245 [facility] Comment on above: Performed By: #### F EBC, TSHX, B12FOL, FT4 #### [address] [address] [employer]: Domo Nielsen MD Folic Acid 7.8 ng/mL Normal 4.8-24.2 [facility] Comment on above: Performed By: #### F EBC, TSHX, B12FOL, FT4 #### [facility] [address] [place] [address] [employer]: Domo Nielsen MD CBC with Diffon 2 Abs. Basophil 0.00 k/uL Normal 0.0-0.2 [facility] Comment on above: Performed By: #### F EBC, TSHX, B12FOL, FT4 #### [facility] [address] [place] [address] [employer]: Domo Nielsen MD Abs.Imm.Granulocyte 0.00 k/uL Normal 0.00-0.30 [facility] Comment on above: Performed By: #### F EBC, TSHX, B12FOL, FT4 #### [facility] [address] [place] [address] [employer]: Domo Nielsen MD Abs.Neutrophil (Seg) 4.47 k/uL Normal 1.8-7.7 [facility] Comment on above: Performed By: #### F EBC, TSHX, B12FOL, FT4 #### [facility] [address] [place] [address] [employer]: Domo Nielsen MD Basophils/100 WBC (Bld) 0 % Normal 0-2 [facility] Comment on above: Performed By: #### F EBC, TSHX, B12FOL, FT4 #### [address] [address] [employer]: Domo Nielsen MD Eosinophils (Bld) [#/Vol] 0.00 10*3/uL Normal 0.0-0.4 [facility] Comment on above: Performed By: #### F EBC, TSHX, B12FOL, FT4 #### [address] [address] [employer]: Domo Nielsen MD Eosinophils/100 WBC (Bld) 0 % Low 1-4 [facility] Comment on above: Performed By: #### F EBC, TSHX, B12FOL, FT4 #### [address] [address] [employer]: Domo Nielsen MD Immature granulocytes/100 WBC (Bld) 0 % Normal 0 [facility] Comment on above: Performed By: #### F EBC, TSHX, B12FOL, FT4 #### [address] [address] [employer]: Domo Nielsen MD Lymphocytes (Bld) [#/Vol] 0.47 10*3/uL Low 1.0-4.8 [facility] Comment on above: Performed By: #### F EBC, TSHX, B12FOL, FT4 #### [facility] [address] [place] [address] [employer]: Domo Nielsen MD Lymphocytes/100 WBC (Bld) 9 % Low 24-44 [facility] Comment on above: Performed By: #### F EBC, TSHX, B12FOL, FT4 #### [address] [address] [employer]: Domo Nielsen MD Monocytes (Bld) [#/Vol] 0.26 10*3/uL Normal 0.1-0.8 [facility] Comment on above: Performed By: #### F EBC, TSHX, B12FOL, FT4 #### [address] [address] [employer]: Domo Nielsen MD Monocytes/100 WBC (Bld) 5 % Normal 1-7 [facility] Comment on above: Performed By: #### F EBC, TSHX, B12FOL, FT4 #### [address] [address] [employer]: Domo Nielsen MD Morphology Ludin (Bld) [Interp] ANISOCYTOSIS PRESENT Normal [facility] Comment on above: Performed By: #### F EBC, TSHX, B12FOL, FT4 #### [address] [address] [employer]: Domo Nielsen MD Neutrophil (Seg) 86 % High 36-66 [facility] Comment on above: Performed By: #### F EBC, TSHX, B12FOL, FT4 #### [address] [address] [employer]: Domo Nielsen MD Erythrocyte distribution width (RBC) [Ratio] 17.7 % High 11.8-14.4 [facility] Comment on above: Performed By: #### F EBC, TSHX, B12FOL, FT4 #### [facility] [address] [place] [address] [employer]: Domo Nielsen MD Hematocrit (Bld) [Volume fraction] 26.5 % Low 36.3-47.1 [facility] Comment on above: Performed By: #### F EBC, TSHX, B12FOL, FT4 #### [facility] [address] [place] [address] [phone] [employer]: Domo Nielsen MD Hemoglobin (Bld) [Mass/Vol] 8.6 g/dL Low 11.9-15.1 [facility] Comment on above: Performed By: #### F EBC, TSHX, B12FOL, FT4 #### [facility] [address] [place] [address] [employer]: Domo Nielsen MD MCH (RBC) [Entitic mass] 33.0 pg Normal 25.2-33.5 [facility] Comment on above: Performed By: #### F EBC, TSHX, B12FOL, FT4 #### [facility] [address] [place] [address] [employer]: Domo Nielsen MD MCHC (RBC) [Mass/Vol] 32.5 g/dL Normal 28.4-34.8 [facility] Comment on above: Performed By: #### F EBC, TSHX, B12FOL, FT4 #### [facility] [address] [place] [address] [employer]: Domo Nielsen MD MCV (RBC) [Entitic vol] 101.5 fL Normal 82.6-102.9 [facility] Comment on above: Performed By: #### F EBC, TSHX, B12FOL, FT4 #### [facility] [address] [place] [address] [employer]: Domo Nielsen MD NRBC Automated 0.0 per 100 WBC Normal 0.0 [facility] Comment on above: Performed By: #### F EBC, TSHX, B12FOL, FT4 #### [facility] [address] [place] [address] [employer]: Domo Nielsen MD Platelet mean volume (Bld) [Entitic vol] 9.5 fL Normal 8.1-13.5 [facility] Comment on above: Performed By: #### F EBC, TSHX, B12FOL, FT4 #### [facility] [place] [address] [employer]: Domo Nielsen MD Platelets (Bld) [#/Vol] 208 10*3/uL Normal 138-453 [facility] Comment on above: Performed By: #### F EBC, TSHX, B12FOL, FT4 #### [facility] [address] [place] [address] [employer]: Domo Nielsen MD RBC (Bld) [#/Vol] 2.61 10*6/uL Low 3.95-5.11 [facility] Comment on above: Performed By: #### F EBC, TSHX, B12FOL, FT4 #### [facility] [address] [place] [address] [employer]: Domo Nielsen MD WBC (Bld) [#/Vol] 5.2 10*3/uL Normal 3.5-11.3 [facility] Comment on above: Performed By: #### F EBC, TSHX, B12FOL, FT4 #### [facility] [address] [place] [address] [employer]: Domo Nielsen MD Comp Metabolic Pr/rfx MGon 0 05-01-2024 Albumin [Mass/Vol] 3.2 g/dL Low 3.5-5.2 [facility] Comment on above: Performed By: #### F EBC, TSHX, B12FOL, FT4 #### [facility] [place] [address] [employer]: Domo Nielsen MD Albumin/Glob Ratio 1.0 Normal 1.0-2.5 [facility] Comment on above: Performed By: #### F EBC, TSHX, B12FOL, FT4 #### [facility] [address] [place] [address] [employer]: Domo Nielsen MD Alkaline Phos 72 U/L Normal 35-104 [facility] Comment on above: Performed By: #### F EBC, TSHX, B12FOL, FT4 #### [facility] [address] [place] [address] [employer]: Domo Nielsen MD ALT [Catalytic activity/Vol] 7 U/L Low 10-35 [facility] Comment on above: Performed By: #### F EBC, TSHX, B12FOL, FT4 #### [facility] [address] [place] [address] [employer]: Domo Nielsen MD Anion gap [Moles/Vol] 11 mmol/L Normal 9-16 [facility] Comment on above: Performed By: #### F EBC, TSHX, B12FOL, FT4 #### [facility] [address] [place] [address] [employer]: Domo Nielsen MD AST [Catalytic activity/Vol] 32 U/L Normal 10-35 [facility] Comment on above: Performed By: #### F EBC, TSHX, B12FOL, FT4 #### [facility] [address] [place] [address] [employer]: Domo Nielsen MD Bilirubin [Mass/Vol] 1.3 mg/dL High 0.00-1.20 [facility] Comment on above: Performed By: #### F EBC, TSHX, B12FOL, FT4 #### [facility] [address] [place] [address] [employer]: Domo Nielsen MD Calcium [Mass/Vol] 8.7 mg/dL Normal 8.6-10.4 [facility] Comment on above: Performed By: #### F EBC, TSHX, B12FOL, FT4 #### [facility] [address] [place] [address] [employer]: Domo Nielsen MD Chloride [Moles/Vol] 109 mmol/L High 98-107 [facility] Comment on above: Performed By: #### F EBC, TSHX, B12FOL, FT4 #### [facility] [address] [place] [address] [employer]: Domo Nielsen MD CO2 [Moles/Vol] 18 mmol/L Low 20-31 [facility] Comment on above: Performed By: #### F EBC, TSHX, B12FOL, FT4 #### [facility] [address] [place] [address] [employer]: Domo Nielsen MD Creatinine [Mass/Vol] 1.1 mg/dL High 0.50-0.90 [facility] Comment on above: Performed By: #### F EBC, TSHX, B12FOL, FT4 #### [facility] [address] [place] [address] [employer]: Domo Nielsen MD GFR/1.73 sq M.predicted among non-blacks MDRD (S/P/Bld) [Vol rate/Area] 57 mL/min/{1.73_m2} Low >60 [facility] Comment on above: Result Comment: These [...] #### F EBC, TSHX, B12FOL, FT4 #### [employer] [address] [place] [address] Boat Dock Operator: Domo Nielsen MD Glucose [Mass/Vol] 174 mg/dL High 74-99 [facility] Comment on above: Performed By: #### F EBC, TSHX, B12FOL, FT4 #### [facility] [address] [place] [address] Boat Dock Operator: Domo Nielsen MD Potassium [Moles/Vol] 3.9 mmol/L Normal 3.7-5.3 [facility] Comment on above: Performed By: #### F EBC, TSHX, B12FOL, FT4 #### [facility] [address] [place] [address] Boat Dock Operator: Domo Nielsen MD Protein [Mass/Vol] 5.4 g/dL Low 6.6-8.7 [facility] Comment on above: Performed By: #### F EBC, TSHX, B12FOL, FT4 #### [facility] [address] [place] [address] Boat Dock Operator: Domo Nielsen MD Sodium [Moles/Vol] 138 mmol/L Normal 136-145 [facility] Comment on above: Performed By: #### F EBC, TSHX, B12FOL, FT4 #### [facility] [address] [place] [address] Boat Dock Operator: Domo Nielsen MD Urea nitrogen [Mass/Vol] 19 mg/dL Normal 8-23 [facility] Comment on above: Performed By: #### F EBC, TSHX, B12FOL, FT4 #### [facility] [address] [place] [address] Boat Dock Operator: Domo Nielsen MD Glucose,Whole Bloodon 2023 Glucose [Mass/Vol] 162 mg/dL High 65-105 [facility] Hgb/Hcton 05-01-2024 Hematocrit (Bld) [Volume fraction] 26.4 % Low 36.3-47.1 [facility] Comment on above: Performed By: #### H H #### [address] [address] Boat Dock Operator: Domo Nielsen MD Hemoglobin (Bld) [Mass/Vol] 8.6 g/dL Low 11.9-15.1 [facility] Comment on above: Performed By: #### H H #### [facility] [address] [place] [address] 24095 Boat Dock Operator: Domo Nielsen MD Iron Binding Cap.on 05-01-20 24 % Fe Saturation 55 % Normal 20-55 [facility] Comment on above: Performed By: #### F EBC, TSHX, B12FOL, FT4 #### [facility] [address] [place] [address] Boat Dock Operator: Domo Nielsen MD Iron [Mass/Vol] 121 ug/dL Normal 37-145 [facility] Comment on above: Performed By: #### F EBC, TSHX, B12FOL, FT4 #### [facility] [address] [place] [address] Boat Dock Operator: Domo Nielsen MD Total Fe Binding Cap 220 ug/dL Low 250-450 [facility] Comment on above: Performed By: #### F EBC, TSHX, B12FOL, FT4 #### [facility] [address] [place] [address] Boat Dock Operator: Domo Nielsen MD Unbound Fe Bind Cap 99 ug/dL Low 112-347 [facility] Comment on above: Performed By: #### F EBC, TSHX, B12FOL, FT4 #### [facility] [address] [place] [address] Boat Dock Operator: Domo Nielsen MD MRSA, DNA, Nasalon 08-26-202 4 MRSA, DNA, Nasal Negative Normal NEG [facility] Comment on above: Result Comment: NEGA TIVE: [...] #### F EBC, TSHX, B12FOL, FT4 #### [facility] [address] [place] [address] Boat Dock Operator: Domo Nielsen MD Specimen Description .NASAL SWAB Normal [facility] Comment on above: Performed By: #### F EBC, TSHX, B12FOL, FT4 #### [facility] [address] [place] [address] Boat Dock Operator: Domo Nielsen MD TSH w/reflex to FT4on 2023 Thyroid Stim. Horm. 14.30 uIU/mL High 0.27-4.20 [facility] Comment on above: Performed By: #### F EBC, TSHX, B12FOL, FT4 #### [address] [address] Boat Dock Operator: Domo Nielsen MD Thyroxine, Freeon 05-01-2024 Thyroxine, Free 1.3 ng/dL Normal 0.92-1.68 [facility] Comment on above: Performed By: #### F EBC, TSHX, B12FOL, FT4 #### [facility] [address] [place] [address] Boat Dock Operator: Domo Nielsen MD Type + Screenon 05-01-2024 Type + Screen Sample Expiration 05/04/2024,4105 Arm Band Number BE [id number] ABO/Rh(D) A POSITIVE Antibody Screen NEGATIVE Normal [facility] Comment on above: Performed By: #### T YS #### [address] [address] Boat Dock Operator: MD Leo Camara 04-27-2024 [facility] Normal [facility] 04-26-2024 [facility] Telephone (AVXRPR) KAYA SCHILLING ([id number]) 1965 F Date Time Provider Department 04/26/24 [...] of malignancy [E83.52] 04/18/2024 Encounter Status:Closed by ALEXANDRA BAKARI on 04/26/24 [facility] CNPN [facility] BRIEF OP NOTon 04-25-2024 BRIEF OP NOT HNO ID: [id number] Author: ALEX MASTERSON MD Service: Interventional Radiology Author Type: Physician Type: Brief Op Note Filed: 04/25/2024 12:07 Note Text: BRIEF OPERATIVE / PROCEDURE NOTE LOG ID: [id number] SURGERY/PROCEDURE DATE: 04/25/2024 INCISION/PROCEDURE START TIME: 11:36 AM INCISION CLOSE/PROCEDURE END TIME: 12:02 PM SURGEON(S)/PROCEDURALIS T(S) AND DIE SINKING MACHINE OPERATOR(S): Surgeons and Role: * Alex Masterson [...] DATE: April 25, 2024 TIME: 12:06 PM [facility] HISTORY PHYSICALon HISTORY PHYSICAL HNO ID: [id number] Author: ALEX MASTERSON MD Service: Interventional Radiology [...] DATE: April 25, 2024 TIME: 10:39 AM [facility] IR FLU GD MAGDALENO CVA PLACEon IR FLU GD MAGDALENO CVA PLACE * * *Final Report* * * DATE OF EXAM: Apr 25 2024 12:02PM 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 The attending radiologist performed the following procedural [...] procedure. I reviewe (more content not included)... [facility] IR PORTOCATH PLACEMENTon IR PORTOCATH PLACEMENT * * *Final Report* * * DATE OF EXAM: Apr 25 2024 12:02PM [facility] 8966 - IR PORTOCATH PLACEMENT / [...] performed by the: attending radiologist, without an assistant foreman. The attending radiologist performed the following procedural [...] procedure. I reviewed (more content not included)... [facility] IR US VASCULAR ACCESS GUIDEo n 04-25-2024 IR US VASCULAR ACCESS GUIDE * * *Final Report* * * DATE OF EXAM: Apr 25 2024 12:02PM [facility] 7765 - US VASCULAR ACCESS GUIDE / [...] performed by the: attending radiologist, without an assistant foreman. The attending radiologist performed the following procedural [...] procedure. I rev (more content not included)... [facility] NURSING PROGon 04-25-2024 NURSING PROG HNO ID: [id number] Author: BYRON PATHAK RN Service: ? Author [...] (RECOMMENDATION): None Electronically Signed By: Byron Pathak [facility] Leo 04-24-2024 CNPN Telephone (AVXRPR) KAYA SCHILLING ([id number]) 1965 F Date Time Provider Department 04/24/24 DINH ANDINO AVXRPR During your visit today, we recorded the following information about you: Dinh Andino, RN 04/24/2024 11:49 AM Signed Pt called [...] Date Reviewed: 04/21/2024 Reviewed by: Lillie Richter APRN.INSPECTOR EYEGLASS - Fully Assessed Reason for Visit: Appointment [...] Status:Closed by DINH ANDINO on 04/24/24 [facility] 04-21-2024 [facility] Telephone (CNFVM) KAYA SCHILLING ([id number]) 1965 F Date Time Provider Department 04/21/24 APRIL FRYE [facility] During your visit today, we recorded the following information about you: April Frye, RN 04/21/2024 10:07 AM Addendum Care Coordination Triage Note [facility] Situation: Patient called in again today reporting severe pain and crying. Background: Disease, current pertinent medications/treatments Gastric Cancer, PE, DM2, Bipolar. Assessment: Patient still reporting severe pain and currently driving to her treatment. I let her know her treatment is not until 1 pm. She is leaving now to see if someone can help her. She reports having only 1 Dillsboro tablet left and will take soon. Advises patient she had refill for 60 tablets of Dillsboro on 04/18 and should not only have [...] it as recommended. Recommendations: Per Ann Richter INSPECTOR EYEGLASS to review. , patient directed to by nurse to seek emergent care if pain severe. Oncology Team: Oncology SW: Can we have Oncology SW follow up with patient today? April Frye RN April 21, 2024 9:43 AM Lillie Richter APRN.INSPECTOR EYEGLASS 04/21/2024 10:22 AM Signed I agree if [...] plan, we can refer her to another [facility] meed program. Lillie Richter APRN.INSPECTOR EYEGLASS 04/21/2024 10:29 AM Signed I also placed [...] virtually. If she cannot get to [facility] she needs a local referral. It will be very difficult to treat her if she has no mental health support. Lillie Richter APRN.INSPECTOR EYEGLASS 04/21/2024 10:29 AM Signed Addended by: LILLIE RICHTER on: 04/21/2024 10:29 AM Modules accepted: Lise Mix, BORA 04/21/2024 10:48 AM Signed I spoke w/ Kaya while she was here just now. Reports her pain is better this morning. Pt found the bottle of Dillsboro prescribed per Ann. Dosing instructions reviewed. Pt [...] an appt for a port placement at [facility] on 04/25. She also sees Natalie her psychologist regularly. Advised that she continue working with both providers to manage her mental health and anxiety so our service can provide the best care for her to mange her s (more content not included)... Normal [facility] CNPN Telephone (AVXRPR) KAYA SCHILLING ([id number]) 1965 F Date Time Provider Department 04/21/24 DEMETRIA NOE AVXRMAGY During your visit today, we recorded the following information about you: Demetria Noe RN 04/21/2024 3:50 PM Signed You are scheduled for a Port Placement, On 04/25/2024. You are to arrive at 10:30 am and Report to [facility]: [facility]: Radiology Outpatient Desk [id number] You can expect to be here for [...] Labs: Lab-work needs to be drawn? No.. Extension Educator/Transportation: How will you be arriving for your procedure? Private car. You will need a responsible adult to accompany you to and from the procedure. Your driver education instructor is required to stay with you until you are taken into the procedure room. Spoke to patient EXTENSIVELY about instructions for procedure, when to stop medications, NPO instructions, and also that a driver education instructor is required, and patient verbalized understanding. Patient also given phone number to call back with any questions Allergies As of Date: 04/21/2024 Noted Allergy Reaction PERCOCET (OXYCODONE-ACETAMINOPHE N)02/21/2015 8 - GI Upset STADOL (BUTORPHANOL TARTRATE) 10/26/2013 11 - Vomiting Comments: incoherent Date Reviewed: 04/21/2024 Reviewed by: Lillie Richter APRN.INSPECTOR EYEGLASS - Fully Assessed Reason for Visit: Radiology [...] History of broken nose [Z87.81] Broken jaw ([facility]) [S02.609A] Scoliosis [M41.9] Bipolar 1 disorder (HCC) [F31.9] Manic depression (HCC) [F31.9] PTSD (post-traumatic stress disorder) [F43.10] Impingement syndrome, shoulder, left [M75.42] 02/21/2015 Cervical radiculopathy at C6 [M54.12] 02/21/2015 Chronic bilateral low back pain (more content not included)... [facility] 04-20-2024 [facility] Telephone (AVXRPR) KAYA SCHILLING ([id number]) 1965 F Date Time Provider Department 04/20/[address] [facility] During your visit today, we recorded the [...] Reason for Visit: Radiology Pre Procedure Instructions [8736] Prescriptions as of 04/20/2024 - buprenorphine (BUTRANS) [...] Encounter Status:Closed by DEMETRIA NOE on 04/20/24 [facility] Normal [facility] CNPNon 04-19-2024 [facility] Normal [facility] CBC W Auto Differential pane l (Bld)on 04-18-2024 Basophils (Bld) [#/Vol] 0.04 10*3/uL [facility] Basophils/100 WBC (Bld) 0.7 % [facility] Differential cell count method Nom (Bld) Auto [facility] Eosinophils (Bld) [#/Vol] 0.07 10*3/uL [facility] Eosinophils/100 WBC (Bld) 1.2 % [facility] Erythrocyte distribution width (RBC) [Ratio] 17.1 % High 11.5 - 15.0 % [facility] Hematocrit (Bld) [Volume fraction] 25.3 % Low 36.0 - 46.0 % [facility] Hemoglobin (Bld) [Mass/Vol] 8.1 g/dL Low 11.5 - 15.5 g/dL [facility] Immature granulocytes (Bld) [#/Vol] [facility] Immature granulocytes/100 WBC (Bld) 0.3 % [facility] Interpretation and review of laboratory results Abnormal [facility] Lymphocytes (Bld) [#/Vol] 0.95 10*3/uL Low [facility] Lymphocytes/100 WBC (Bld) 16.4 % [facility] MCH (RBC) [Entitic mass] 32.8 pg 26.0 - 34.0 pg [facility] MCHC (RBC) [Mass/Vol] 32.0 g/dL 30.5 - 36.0 g/dL [facility] MCV (RBC) [Entitic vol] 102.4 fL High 80.0 - 100.0 fL [facility] Monocytes (Bld) [#/Vol] 0.41 10*3/[facility]L [facility] Monocytes/100 WBC (Bld) 7.1 % [facility] Neutrophils (Bld) [#/Vol] 4.29 10*3/uL [facility] Neutrophils/100 WBC (Bld) 74.3 % [facility] Nucleated RBC (Bld) [#/Vol] NINF [facility] Nucleated RBC/100 WBC (Bld) [Ratio] 0.0 % /100 WBC [facility] Platelet mean volume (Bld) [Entitic vol] 9.1 fL 9.0 - 12.7 fL [facility] Platelets (Bld) [#/Vol] 364 10*3/uL [facility] RBC (Bld) [#/Vol] 2.47 10*6/uL Low 3.90 - 5.2 0 m/uL [facility] WBC (Bld) [#/Vol] 5.78 10*3/uL [facility] Basophils (Bld) [#/Vol] 0.04 10*3/uL Normal <0.11 [facility] Comment on above: Order Comment: Speci men Type: BLOOD SPECIMENOrdering Facility: [facility] Address: [address] [place] [address] Performed By: #### 5 7021-8 ####[facility] [id number] [place] [address] Basophils/100 WBC (Bld) 0.7 % Normal [facility] Comment on above: Order Comment: Speci men Type: BLOOD SPECIMENOrdering Facility: [facility] Address: [address] [place] [address] Performed By: #### 5 7021-8 ####[facility] [id number] [place] [address] Differential cell count method Nom (Bld) Auto Normal [facility] Comment on above: Order Comment: Speci men Type: BLOOD SPECIMENOrdering Facility: [facility] Address: [address] [place] [address] Performed By: #### 5 7021-8 ####[facility] [id number] [place] [address] Eosinophils (Bld) [#/Vol] 0.07 10*3/uL Normal <0.46 [facility] Comment on above: Order Comment: Speci men Type: BLOOD SPECIMENOrdering Facility: [facility] Address: [address] [place] [address] Performed By: #### 5 7021-8 ####[facility] [id number] [place] [address] Eosinophils/100 WBC (Bld) 1.2 % Normal [facility] Comment on above: Order Comment: Speci men Type: BLOOD SPECIMENOrdering Facility: [facility] Address: [address] [place] [address] Performed By: #### 5 7021-8 ####[facility] [id number] [place] [address] Erythrocyte distribution width (RBC) [Ratio] 17.1 % High 11.5-15.0 [facility] Comment on above: Order Comment: Speci men Type: BLOOD SPECIMENOrdering Facility: [facility] Address: [address] [place] [address] Performed By: #### 5 7021-8 ####[facility] [id number] [place] [address] Hematocrit (Bld) [Volume fraction] 25.3 % Low 36.0-46.0 [facility] Comment on above: Order Comment: Speci men Type: BLOOD SPECIMENOrdering Facility: [facility] Address: [address] [place] [address] Performed By: #### 5 7021-8 ####[facility] [id number] [place] [address] Hemoglobin (Bld) [Mass/Vol] 8.1 g/dL Low 11.5-15.5 [facility] Comment on above: Order Comment: Speci men Type: BLOOD SPECIMENOrdering Facility: [facility] Address: [address] [place] [address] Performed By: #### 5 7021-8 ####[facility] [id number] [place] [address] Immature granulocytes (Bld) [#/Vol] 10*3/uL Normal <0.10 [facility] Comment on above: Order Comment: Speci men Type: BLOOD SPECIMENOrdering Facility: [facility] Address: [address] [place] [address] Performed By: #### 5 7021-8 ####[facility] [id number] [place] [address] Immature granulocytes/100 WBC (Bld) 0.3 % Normal [facility] Comment on above: Order Comment: Speci men Type: BLOOD SPECIMENOrdering Facility: [facility] Address: [address] [place] [address] Performed By: #### 5 7021-8 ####[facility] [id number] [place] [address] Lymphocytes (Bld) [#/Vol] 0.95 10*3/uL Low 1.00-4.00 [facility] Comment on above: Order Comment: Speci men Type: BLOOD SPECIMENOrdering Facility: [facility] Address: [address] [place] [address] Performed By: #### 5 7021-8 ####[facility]IA [id number] [place] [address] Lymphocytes/100 WBC (Bld) 16.4 % Normal [facility] Comment on above: Order Comment: Speci men Type: BLOOD SPECIMENOrdering Facility: [facility] Address: [address] [place] [address] Performed By: #### 5 7021-8 ####[facility] [id number] [place] [address] MCH (RBC) [Entitic mass] 32.8 pg Normal 26.0-34.0 [facility] Comment on above: Order Comment: Speci men Type: BLOOD SPECIMENOrdering Facility: [facility] Address: [address] [place] [address] Performed By: #### 5 7021-8 ####[facility] [id number] [place] [address] MCHC (RBC) [Mass/Vol] 32.0 g/dL Normal 30.5-36.0 [facility] Comment on above: Order Comment: Speci men Type: BLOOD SPECIMENOrdering Facility: [facility] Address: [address] [place] [address] Performed By: #### 5 7021-8 ####[facility]CLIA [id number] [place] [address] MCV (RBC) [Entitic vol] 102.4 fL High 80.0-100.0 [facility] Comment on above: Order Comment: Speci men Type: BLOOD SPECIMENOrdering Facility: [facility] Address: [address] [place] [address] Performed By: #### 5 7021-8 ####[facility]CLIA [id number] [place] [address] Monocytes (Bld) [#/Vol] 0.41 10*3/uL Normal <0.87 [facility] Comment on above: Order Comment: Speci men Type: BLOOD SPECIMENOrdering Facility: [facility] Address: [address] [place] [address] Performed By: #### 5 7021-8 ####[facility] [id number] [place] [address] Monocytes/100 WBC (Bld) 7.1 % Normal [facility] Comment on above: Order Comment: Speci men Type: BLOOD SPECIMENOrdering Facility: [facility] Address: [address] [place] [address] Performed By: #### 5 7021-8 ####[facility] LABCLIA [id number] [place] [address] Neutrophils (Bld) [#/Vol] 4.29 10*3/uL Normal 1.45-7.50 [facility] Comment on above: Order Comment: Speci men Type: BLOOD SPECIMENOrdering Facility: [facility] Address: [address] [place] [address] Performed By: #### 5 7021-8 ####[facility]CLIA [id number] [place] [address] Neutrophils/100 WBC (Bld) 74.3 % Normal [facility] Comment on above: Order Comment: Speci men Type: BLOOD SPECIMENOrdering Facility: [facility] Address: [address] [place] [address] Performed By: #### 5 7021-8 ####[facility] LABCLIA [id number] [place] [address] Nucleated RBC (Bld) [#/Vol] 10*3/uL Normal <0.01 [facility] Comment on above: Order Comment: Speci men Type: BLOOD SPECIMENOrdering Facility: [facility] Address: [address] [place] [address] Performed By: #### 5 7021-8 ####[facility] LABCLIA [id number] [place] [address] Nucleated RBC/100 WBC (Bld) [Ratio] 0.0 /100 WBC Normal [facility] Comment on above: Order Comment: Speci men Type: BLOOD SPECIMENOrdering Facility: [facility] Address: [address] [place] [address] Performed By: #### 5 7021-8 ####[facility] LABCLIA [id number] [place] [address] Platelet mean volume (Bld) [Entitic vol] 9.1 fL Normal 9.0-12.7 [facility] Comment on above: Order Comment: Speci men Type: BLOOD SPECIMENOrdering Facility: [facility] Address: [address] [place] [address] Performed By: #### 5 7021-8 ####[facility] LABCLIA [id number] [place] [address] Platelets (Bld) [#/Vol] 364 10*3/uL Normal 150-400 [facility] Comment on above: Order Comment: Speci men Type: BLOOD SPECIMENOrdering Facility: [facility] Address: [address] [place] [address] Performed By: #### 5 7021-8 ####[facility] LABIA [id number] [place] [address] RBC (Bld) [#/Vol] 2.47 10*6/uL Low 3.90-5.20 [facility] Comment on above: Order Comment: Speci men Type: BLOOD SPECIMENOrdering Facility: [facility] Address: [address] [place] [address] Performed By: #### 5 7021-8 ####[facility] LABIA [id number] [place] [address] WBC (Bld) [#/Vol] 5.78 10*3/uL Normal 3.70-11.00 [facility] Comment on above: Order Comment: Speci men Type: BLOOD SPECIMENOrdering Facility: [facility] Address: [address] [place] [address] Performed By: #### 5 7021-8 ####[facility] LABIA [id number] [place] [address] CNOVSPon 04-18-2024 CNOVSP Normal [facility] CNPNon 04-18-2024 CNPN Normal [facility] Comprehensive metabolic 2000 panelOrdered By: Lisseth Gleason on 04-18-2024 Albumin [Mass/Vol] 3.8 g/dL Low 3.9 - 4.9 g/dL [facility] ALP [Catalytic activity/Vol] 92 U/L 34 - 123 U/L [facility] ALT [Catalytic activity/Vol] 10 U/L 7 - 38 U/L [facility] Anion gap [Moles/Vol] 10 mmol/L 8 - 15 mmol/L [facility] AST [Catalytic activity/Vol] 20 U/L 13 - 35 U/L [facility] Bilirubin [Mass/Vol] 0.3 mg/dL 0.2 - 1.3 mg/dL [facility] Calcium [Mass/Vol] 11.5 mg/dL High 8.5 - 10. 2 mg/dL [facility] Chloride [Moles/Vol] 98 mmol/L 98 - 107 mmol/L [facility] CO2 [Moles/Vol] 25 mmol/L 22 - 30 mmol/L [facility] Creatinine [Mass/Vol] 1.39 mg/dL High 0.58 - 0.96 mg/dL [facility] GFR/1.73 sq M.predicted among non-blacks MDRD (S/P/Bld) [Vol rate/Area] 44 mL/min/{1.73_m2} Low - PINF [facility] Comment on above: Estimated Glomerular Filtration Rate [...] 193 mg/dL High 74 - 99 mg/dL [facility] Comment on above: The [place] Diabete s Association (ADA) provides guidance for [...] Standards of Medical Care in Diabetes 2016, [place] Diabetes Association. Diabetes Care. 2016.39(Suppl 1). Interpretation and review of laboratory results Abnormal [facility] Potassium [Moles/Vol] 4.1 mmol/L 3.7 - 5.1 mmol/L [facility] Protein [Mass/Vol] 6.8 g/dL 6.3 - 8.0 g/dL [facility] Sodium [Moles/Vol] 133 mmol/L Low 136 - 144 mmol/L [facility] Urea nitrogen [Mass/Vol] 17 mg/dL 7 - 21 mg/dL [facility] Comprehensive metabolic 2000 panelon 04-18-2024 Albumin [Mass/Vol] 3.8 g/dL Low 3.9-4.9 [facility] Comment on above: Order Comment: Speci men Type: BLOOD SPECIMENOrdering Facility: [facility] Address: [address] [place] [address] Performed By: #### 2 4323-8 ####[facility] LABCLIA [id number] [place] [address] ALP [Catalytic activity/Vol] 92 U/L Normal 34-123 [facility] Comment on above: Order Comment: Speci men Type: BLOOD SPECIMENOrdering Facility: [facility] Address: [address] [place] [address] Performed By: #### 2 4323-8 ####[facility] LABCLIA [id number] [place] [address] ALT [Catalytic activity/Vol] 10 U/L Normal 7-38 [facility] Comment on above: Order Comment: Speci men Type: BLOOD SPECIMENOrdering Facility: [facility] Address: [address] [place] [address] Performed By: #### 2 4323-8 ####[facility] LABCLIA [id number] [place] [address] Anion gap [Moles/Vol] 10 mmol/L Normal 8-15 [facility] Comment on above: Order Comment: Speci men Type: BLOOD SPECIMENOrdering Facility: [facility] Address: [address] [place] [address] Performed By: #### 2 4323-8 ####[facility] LABCLIA [id number] [place] [address] AST [Catalytic activity/Vol] 20 U/L Normal 13-35 [facility] Comment on above: Order Comment: Speci men Type: BLOOD SPECIMENOrdering Facility: [facility] Address: [address] [place] [address] Performed By: #### 2 4323-8 ####[facility] LABCLIA [id number] [place] [address] Bilirubin [Mass/Vol] 0.3 mg/dL Normal 0.2-1.3 [facility] Comment on above: Order Comment: Speci men Type: BLOOD SPECIMENOrdering Facility: [facility] Address: [address] [place] [address] Performed By: #### 2 4323-8 ####[facility] LABCLIA [id number] [place] [address] Calcium [Mass/Vol] 11.5 mg/dL High 8.5-10.2 [facility] Comment on above: Order Comment: Speci men Type: BLOOD SPECIMENOrdering Facility: [facility] Address: [address] [place] [address] Performed By: #### 2 4323-8 ####[facility] LABCLIA [id number] [place] [address] Chloride [Moles/Vol] 98 mmol/L Normal 98-107 [facility] Comment on above: Order Comment: Speci men Type: BLOOD SPECIMENOrdering Facility: [facility] Address: [address] [place] [address] Performed By: #### 2 4323-8 ####[facility] LABCLIA [id number] [place] [address] CO2 [Moles/Vol] 25 mmol/L Normal 22-30 [facility] Comment on above: Order Comment: Speci men Type: BLOOD SPECIMENOrdering Facility: [facility] Address: [address] [place] [address] Performed By: #### 2 4323-8 ####[facility] LABCLIA [id number] [place] [address] Creatinine [Mass/Vol] 1.39 mg/dL High 0.58-0.96 [facility] Comment on above: Order Comment: Speci men Type: BLOOD SPECIMENOrdering Facility: [facility] Address: [address] [place] [address] Performed By: #### 2 4323-8 ####[facility] LABIA [id number] [place] [address] Creatinine and Glomerular filtration rate.predicted panel (S/P/Bld) 44 mL/min/1.73m??? Low >=60 [facility] Comment on above: Order Comment: Speci men Type: BLOOD SPECIMENOrdering Facility: [facility] Address: [address] [place] [address] Result Comment: Carmen mated Glomerular Filtration Rate [...] actual GFR. Performed By: #### 2 4323-8 ####[facility] LABIA [id number] [place] [address] Glucose [Mass/Vol] 193 mg/dL High 74-99 [facility] Comment on above: Order Comment: Speci men Type: BLOOD SPECIMENOrdering Facility: [facility] Address: [address], [place] [address] Result Comment: The [place] Diabetes Association (ADA) provides guidance for cutoff [...] Standards of Medical Care in Diabetes 2016, [place] Diabetes Association. Diabetes Care. 2016.39(Suppl 1). Performed By: #### 2 4323-8 ####[facility] LABCLIA [id number] [place] [address] Potassium [Moles/Vol] 4.1 mmol/L Normal 3.7-5.1 [facility] Comment on above: Order Comment: Speci men Type: BLOOD SPECIMENOrdering Facility: [facility] Address: [address] [place] [address] Performed By: #### 2 4323-8 ####[facility] LABCLIA [id number] [place] [address] Protein [Mass/Vol] 6.8 g/dL Normal 6.3-8.0 [facility] Comment on above: Order Comment: Speci men Type: BLOOD SPECIMENOrdering Facility: [facility] Address: [address] [place] [address] Performed By: #### 2 4323-8 ####[facility] LABCLIA [id number] [place] [address] Sodium [Moles/Vol] 133 mmol/L Low 136-144 [facility] Comment on above: Order Comment: Speci men Type: BLOOD SPECIMENOrdering Facility: [facility] Address: [address] [place] [address] Performed By: #### 2 4323-8 ####[facility] LABCLIA [id number] [place] [id number] Urea nitrogen [Mass/Vol] 17 mg/dL Normal 7-21 [facility] Comment on above: Order Comment: Speci men Type: BLOOD SPECIMENOrdering Facility: [facility] Address: [address] [place] [address] Performed By: #### 2 4323-8 ####[facility] LABIA [id number] [place] [id number] CNPNon 04-17-2024 CNPN Normal [facility] CNPNon 04-15-2024 CNPN Normal [facility] CNCNPATEDon 04-14-2024 CNCNPATED Normal [facility] CNOVon 04-14-2024 CNOV Normal [facility] PAIN PANEL, UR QUANTon 04-14 9-Xcfamfnqwt-9,5-Di methyl-3,3-Diphenyl pyrrolidine (EDDP) Confirm (U) [Mass/Vol] <6 Normal <6 [facility] Comment on above: Order Comment: Speci men Type: URINE SPECIMENOrdering Facility: [facility] Address: [address] [place] [address] Result Comment: EDDP is a metabolite of methadone. Performed By: #### L [id number] ####[facility] LABCLIA [id number] [facility] [id number] [place] [address] [place] 6-Monoacetylmorphin e (6-MARICEL) (U) [Mass/Vol] <5 Normal <5 [facility] Comment on above: Order Comment: Speci men Type: URINE SPECIMENOrdering Facility: [facility] Address: [address] [place] [address] Result Comment: 6-MA M (6-monoacetylmorphine, also known as 6-acetylmorphine) is a unique metabolite of heroin. Presence of 6-MARICEL indicates use of heroin. 6-MARICEL is further metabolized to morphine and absence of 6-MARICEL does not rule out the use of heroin. Performed By: #### L [id number] ####[facility] LABCLIA [id number] [place] [address] [place] Amphetamine Confirm (U) [Mass/Vol] <5 Normal <5 [facility] Comment on above: Order Comment: Speci men Type: URINE SPECIMENOrdering Facility: [facility] Address: [address] [place] [address] Performed By: #### L [id number] ####[facility] [id number] [place] [address] [place] Benzoylecgonine Confirm (U) [Mass/Vol] <24 Normal <24 [facility] Comment on above: Order Comment: Speci men Type: URINE SPECIMENOrdering Facility: [facility] Address: [address] [place] [address] Result Comment: Mario oylecgonine is a metabolite of cocaine. Performed By: #### L [id number] ####[facility] [id number] [place] [address] [place] Buprenorphine (U) [Mass/Vol] <20 Normal <20 [facility] Comment on above: Order Comment: Speci men Type: URINE SPECIMENOrdering Facility: [facility] Address: [address] [place] [address] Performed By: #### L [id number] ####[facility] [id number] [place] [address] [place] Cannabinoids Confirm (U) [Mass/Vol] <16 Normal <16 [facility] Comment on above: Order Comment: Speci men Type: URINE SPECIMENOrdering Facility: [facility] Address: [address] [place] [address] Result Comment: Tetr ahydrocannabinol carboxylic acid (THCA) is a metabolite of zuogs-7-qcfnyqmlrbcsjauwamge which is the main active component of marijuana. Performed By: #### L [id number] ####[facility] [id number] [place] [address] [place] Codeine Confirm (U) [Mass/Vol] <11 Normal <11 [facility] Comment on above: Order Comment: Speci men Type: URINE SPECIMENOrdering Facility: [facility] Address: [address] [place] [address] Performed By: #### L [id number] ####[facility] LABCLIA [id number] [place] [address] [place] Dihydrocodeine Confirm (U) [Mass/Vol] 708 ng/mL High <5 [facility] Comment on above: Order Comment: Speci men Type: URINE SPECIMENOrdering Facility: [facility] Address: [address] [place] [address] Result Comment: The presence of dihydrocodeine may arise from dihydrocodeine containing drugs or from the metabolism of hydrocodone. Performed By: #### L [id number] ####[facility] LABCLIA [id number] [place] [address] [place] fentaNYL Confirm (U) [Mass/Vol] <6 Normal <6 [facility] Comment on above: Order Comment: Speci men Type: URINE SPECIMENOrdering Facility: [facility] Address: [address] [place] [address] Performed By: #### L [id number] ####[facility] LABIA [id number] [place] [address] [place] HYDROcodone Confirm (U) [Mass/Vol] 4329 ng/mL High <8 [facility] Comment on above: Order Comment: Speci men Type: URINE SPECIMENOrdering Facility: [facility] Address: [address] [place] [address] Result Comment: Hydr ocodone may arise from hydrocodone containing drugs or by metabolism of dihydrocodeine. Hydrocodone is also a minor metabolite of codeine, and may be detected with elevated levels of codeine. Hydrocodone is metabolized to hydromorphone and dihydrocodeine. Performed By: #### L [id number] ####[facility] LABCLIA [id number] [place] [address] [place] HYDROmorphone Confirm (U) [Mass/Vol] 4809 ng/mL High <5 [facility] Comment on above: Order Comment: Speci men Type: URINE SPECIMENOrdering Facility: [facility] Address: [address] [place] [address] Result Comment: Hydr omorphone may arise from hydromorphone containing drugs or by metabolism of morphine and hydrocodone. Performed By: #### L [id number] ####[facility] LABIA [id number] [place] [address] [place] Methadone Confirm (U) [Mass/Vol] <16 Normal <16 [facility] Comment on above: Order Comment: Speci men Type: URINE SPECIMENOrdering Facility: [facility] Address: [address] [place] [address] Performed By: #### L [id number] ####[facility] LABIA [id number] [place] [address] [place] Methamphetamine Confirm (U) [Mass/Vol] <8 Normal <8 [facility] Comment on above: Order Comment: Speci men Type: URINE SPECIMENOrdering Facility: [facility] Address: [address] [place] [address] Performed By: #### L [id number] ####[facility] LABIA [id number] [address] [place] Morphine Confirm (U) [Mass/Vol] <10 Normal <10 [facility] Comment on above: Order Comment: Speci men Type: URINE SPECIMENOrdering Facility: [facility] Address: [address] [place] [address] Result Comment: Morp taylor is a metabolite of codeine and heroin. Performed By: #### L [id number] ####[facility] LABIA [id number] [place] [address] [place] Norbuprenorphine (U) [Mass/Vol] <20 Normal <20 [facility] Comment on above: Order Comment: Speci men Type: URINE SPECIMENOrdering Facility: [facility] Address: [address] [place] [address] Result Comment: Norb uprenorphine is the primary active metabolite of buprenorphine. Performed By: #### L [id number] ####[facility] [id number] [address] OF [facility] Norfentanyl Confirm (U) [Mass/Vol] <6 Normal <6 [facility] Comment on above: Order Comment: Speci men Type: URINE SPECIMENOrdering Facility: [facility] Address: [address] [place] [address] Result Comment: Norf entanyl is a metabolite of fentanyl. Performed By: #### L [id number] ####[facility] [id number] [address] [place] [facility] Nortramadol (U) [Mass/Vol] <20 Normal <20 [facility] Comment on above: Order Comment: Speci men Type: URINE SPECIMENOrdering Facility: [facility] Address: [address] [place] [address] Result Comment: Desm ethyltramadol is a metabolite of tramadol. Performed By: #### L [id number] ####[facility] [id number] [address] [place] NOTE,UR PAIN CALABRESE Normal [facility] Comment on above: Order Comment: Speci men Type: URINE SPECIMENOrdering Facility: [facility] Address: [address] [place] [address] Result Comment: This test is for medical use only.This test was developed and its performance characteristics determined by [facility]'s Sarwat Mchugh [facility]). It has not been cleared or approved by the FDA. [facility] is regulated under CLIA as qualified to perform high-complexity testing. This test is used for clinical purposes. It should not be regarded as investigational or for research. Performed By: #### L [id number] ####[facility] LABIA [id number] [address] [place] oxyCODONE Confirm (U) [Mass/Vol] <10 Normal <10 [facility] Comment on above: Order Comment: Speci men Type: URINE SPECIMENOrdering Facility: [facility] Address: [address] [place] [address] Performed By: #### L [id number] ####[facility] [id number] [address] [place] oxyMORphone Confirm (U) [Mass/Vol] <5 Normal <5 [facility] Comment on above: Order Comment: Speci men Type: URINE SPECIMENOrdering Facility: [facility] Address: [address] [place] [address] Result Comment: Oxym orphone is a metabolite of oxycodone. Performed By: #### L [id number] ####[facility] [id number] [place] [address] [place] traMADol Confirm (U) [Mass/Vol] <25 Normal <25 [facility] Comment on above: Order Comment: Speci men Type: URINE SPECIMENOrdering Facility: [facility] Address: [address] [place] [address] Performed By: #### L [id number] ####[facility] [id number] [place] [address] [place] SPECIMEN VALIDITY, URINEon 0 04-14-2024 CHROMATE,URINE <10 Normal <50 [facility] Comment on above: Order Comment: Speci men Type: URINE SPECIMENOrdering Facility: [facility] Address: [address] [place] [address] Performed By: #### L [id number] ####[facility] LABIA [id number] [place] [address] [place] CREATININE,URINE 123.2 mg/dL Normal 20.0-300.0 [facility] Comment on above: Order Comment: Speci men Type: URINE SPECIMENOrdering Facility: [facility] Address: [address] [place] [address] Performed By: #### L [id number] ####[facility] LABCLIA [id number] [place] [address] [place] NITRITES,URINE <50 Normal <500 [facility] Comment on above: Order Comment: Speci men Type: URINE SPECIMENOrdering Facility: [facility] Address: [address] [place] [address] Performed By: #### L [id number] ####[facility] LABCLIA [id number] [place] [address] [place] OXIDANTS,URINE 65 mg/L Normal <200 [facility] Comment on above: Order Comment: Speci men Type: URINE SPECIMENOrdering Facility: [facility] Address: [address] [place] [address] Performed By: #### L [id number] ####[facility] LABCLIA [id number] [place] [address] [place] pH (U) 5.6 [pH] Normal 4.5-8.0 [facility] Comment on above: Order Comment: Speci men Type: URINE SPECIMENOrdering Facility: [facility] Address: [address] [place] [address] Performed By: #### L [id number] ####[facility] LABCLIA [id number] [place] [address] [place] SPEC GRAVITY,UR 1.007 Normal 1.003-1.035 [facility] Comment on above: Order Comment: Speci men Type: URINE SPECIMENOrdering Facility: [facility] Address: [address] [place] [address] Performed By: #### L [id number] ####[facility] LABCLIA [id number] [place] [address] [place] SPECIMEN VALIDITY QUALITY Specimen quality results within acceptable limits Normal [facility] Comment on above: Order Comment: Speci men Type: URINE SPECIMENOrdering Facility: [facility] Address: [address] [place] [address] Performed By: #### L [id number] ####[facility] LABCLIA [id number] [address] [place] TOXICOLOGY SCREEN, ROUTINE U RINEon 04-14-2024 Amphetamines Confirm (U) [Mass/Vol] Negative Negative [facility] Comment on above: Cutoff threshold at 1000 ng/mL. Barbiturates Urine Negative Negative [facility] Comment on above: Cutoff threshold at 200 ng/mL. Benzodiazepines Urine Positive Abnormal Negative [facility] Comment on above: Cutoff threshold at 200 ng/mL. Cannabinoids Screen Ql (U) Negative Negative [facility] Comment on above: Cutoff threshold at 50 ng/mL. Cocaine Ql (U) Negative Negative [facility] Comment on above: Cutoff threshold at 300 ng/mL. Ethanol (U) [Mass/Vol] mg/dL NINF - 11 mg/dL [facility] Interpretation and review of laboratory results Abnormal [facility] Opiates Screen Ql (U) Positive Abnormal Negative [facility] Comment on above: Cutoff threshold at 300 ng/mL. oxyCODONE cutoff Screen (U) [Mass/Vol] Negative Negative [facility] Comment on above: Cutoff threshold at 100 ng/mL. Phencyclidine Ql (U) Negative Negative [facility] Comment on above: Cutoff threshold at 25 [...] on the same specimen through Client Services ([phone]) if contacted within 48 hours of initial testing. [1]Substance Abuse and Mental Health Services Administration (2012). Clinical Drug Testing in Primary Care Technical Assistance Publication Series 32. Department of Health and Human Services, [place], p.10. [facility] Amphetamines Confirm (U) [Mass/Vol] Negative Normal Negative [facility] Comment on above: Order Comment: Speci men Type: URINE SPECIMENOrdering Facility: [facility] Address: [address] [place] [address] Result Comment: Cuto ff threshold at 1000 ng/mL. Performed By: #### U TOX2 ####[facility] [id number] [place] [address] [place] BARBITURATES, URINE Negative Normal Negative [facility] Comment on above: Order Comment: Speci men Type: URINE SPECIMENOrdering Facility: [facility] Address: [address] [place] [address] Result Comment: Cuto ff threshold at 200 ng/mL. Performed By: #### U TOX2 ####[facility] [id number] [place] [address] [place] BENZODIAZEPINES, UR Positive Abnormal Negative [facility] Comment on above: Order Comment: Speci men Type: URINE SPECIMENOrdering Facility: [facility] Address: [address] [place] [address] Result Comment: Cuto ff threshold at 200 ng/mL. Performed By: #### U TOX2 ####[facility] LABIA [id number] [place] [address] [place] Cannabinoids Screen Ql (U) Negative Normal Negative [facility] Comment on above: Order Comment: Speci men Type: URINE SPECIMENOrdering Facility: [facility] Address: [address] [place] [address] Result Comment: Cuto ff threshold at 50 ng/mL. Performed By: #### U TOX2 ####[facility] LABCLIA [id number] [place] [address] [place] Cocaine Ql (U) Negative Normal Negative [facility] Comment on above: Order Comment: Speci men Type: URINE SPECIMENOrdering Facility: [facility] Address: [address] [place] [address] Result Comment: Cuto ff threshold at 300 ng/mL. Performed By: #### U TOX2 ####[facility] LABCLIA [id number] [place] [address] [place] Ethanol (U) [Mass/Vol] <11 Normal <11 [facility] Comment on above: Order Comment: Speci men Type: URINE SPECIMENOrdering Facility: [facility] Address: [address] [place] [address] Performed By: #### U TOX2 ####[facility] LABCLIA [id number] [place] [address] [place] Opiates Screen Ql (U) Positive Abnormal Negative [facility] Comment on above: Order Comment: Speci men Type: URINE SPECIMENOrdering Facility: [facility] Address: [address] [place] [address] Result Comment: Cuto ff threshold at 300 ng/mL. Performed By: #### U TOX2 ####[facility] LABCLIA [id number] [place] [address] [place] oxyCODONE cutoff Screen (U) [Mass/Vol] Negative Normal Negative [facility] Comment on above: Order Comment: Speci men Type: URINE SPECIMENOrdering Facility: [facility] Address: [address] [place] [address] Result Comment: Cuto ff threshold at 100 ng/mL. Performed By: #### U TOX2 ####[facility] LABCLIA [id number] [place] [address] [place] Phencyclidine Ql (U) Negative Normal Negative [facility] Comment on above: Order Comment: Speci men Type: URINE SPECIMENOrdering Facility: [facility] Address: [address] [place] [address] Result Comment: Cuto ff threshold at 25 ng/mL. Performed By: #### U TOX2 ####[facility] LABCLIA [id number] [place]Regla [place] [id number] [place] CNPNon 04-12-2024 CNPN Normal [facility] CNPNon 04-10-2024 CNPN Normal [facility] CNPNon 04-07-2024 CNPN Normal [facility] CNNURSEon 04-06-2024 CNNURSE Normal [facility] CT ABDOMEN W IVCONon 024 CT ABDOMEN W IVCON Normal [facility] CT Abdomen W contrast Le 0 04-06-2024 * * *Final Report* * * DATE OF EXAM: Apr 06 2024 3:16PM [facility] 0533 - CT ABDOMEN W IVCON [...] of upper abdominal perigastric and retroperitoneal lymphadenopathy. Supervisor S[employer] Workers measurements are detailed as follows on series [...] No additional findings. DIVISION OF RADIOLOGY Provider, [facility] - 04/06/2024 * * *Final Report* * * DATE OF EXAM: Apr 06 2024 3:16PM [facility] 0533 - CT ABDOMEN W IVCON [...] of upper abdominal perigastric and retroperitoneal lymphadenopathy. [employer] measurements are detailed as follows on series [...] and is likely (more content not included)... [facility] CT CHEST W IVCONon CT CHEST W IVCON Normal [facility] CT Chest W contrast Le IMPRESSION: 1. [...] any questions regarding this interpretation, please call [phone]. If you are unable to reach us at the number above, please feel free to contact [facility] at [phone]. DIVISION OF RADIOLOGY * * *Final Report* * * DATE OF EXAM: Apr 06 2024 3:16PM [facility] 0539 - CT CHEST W IVCON [...] are a few noncalcified pulmonary nodules, with logistics service representative measurements detailed as follows on series [...] There are numerous enlarged supraclavicular lymph nodes. [employer] measurements are detailed as follows on series [...] No additional findings. DIVISION OF RADIOLOGY Provider, [facility] - 04/06/2024 * * *Final Report* * * DATE OF EXAM: Apr 06 2024 3:16PM [facility] 0539 - CT CHEST W IVCON [...] are a few noncalcified pulmonary nodules, with logistics service representative measurements detailed as follows on series [...] There are numerous enlarged supraclavicular lymph nodes. [employer] measurements are detailed as follows on series [...] any questions regarding this interpretation, please call [phone]. If you are unable to reach us at the number above, please feel free to contact [facility] at [phone]. [facility] CT Chest W contrast IVOrdere d By: Ccf Provider on 04-06-2024 [facility] GLUCOSE, BLOOD (POC)on 04-06 Glucose [Mass/Vol] 122 mg/dL Abnormal 74 - 99 mg/dL [facility] Comment on above: Location:[facility], [address] [place] [address] , [place], [place], [facility] The Accu-Chek Inform II glucose meter has [...] Interpretation and review of laboratory results Abnormal [facility] NM PET/CT SKULL-THIGH INITon 04-06-2024 NM PET/CT SKULL-THIGH INIT Normal [facility] Panel Informationon 04-06 Radiology Study observation (narrative) [facility] PET+CT Guidance for localiza tion of tumor [...] any questions regarding this interpretation, please call [phone]. If you are unable to reach us at the number above, please feel free to contact [facility] at [phone]. DIVISION OF RADIOLOGY * * *Final Report* [...] * Radiopharmaceutical Activity: 7.2 mCi * Radiopharmaceutical: L32-Nvmyplxfvvoruujxff (FDG) * All reported standardized uptake values represent maximum SUV (SUVmax) per body weight, unless otherwise specified. CORRELATION: RESULT: REFERENCES: SUV reference values: * Blood pool (descending aorta) activity: SUVmax 2.4 * Background liver activity: SUVmax 2.9 Boiler Fitter (topogram) images: No additional findings. Notes and [...] No abnormal uptake. DIVISION OF RADIOLOGY Provider, [facility] - 04/06/2024 * * *Final Report* * [...] * Radiopharmaceutical Activity: 7.2 mCi * Radiopharmaceutical: W90-Vpfffbgovgowxglhni (FDG) * All reported standardized uptake values represent maximum SUV (SUVmax) per body weight, unless otherwise specified. CORRELATION: RESULT: REFERENCES: SUV reference values: * Blood pool (descending aorta) activity: SUVmax 2.4 * Background liver activity: SUVmax 2.9 Boiler Fitter (topogram) images: No additional findings. Notes and [...] and the report (more content not included)... [facility] PET+CT Guidance for localiza tion of tumor of Skull base to mid-thigh-- W 18F-FDG IVOrdered By: Ccf Provider on 04-06-2024 [facility] Surgical Pathologyon 024 Surgical Pathology Normal [facility] Comment on above: Result Comment: [facility] [address] [place] [address] Surgical Pathology Consultation ADDENDUM HI Patient Name:KAYA SCHILLING:1965 (Age: 59)Gender:FTaken:4Reported:4Physician(s):Beto Vivar MD ([phone])Copy To: Rec. #:[id number]: #[id number] Final Pathologic Diagnosis Gastric biomarker Reporting Template [...] Formalin (Formalin-fixed, paraffin embedded tissue) MLH1: Vendor: [employer], Primary Antibody: M1 MSH2: Vendor: [employer] [employer], Primary Antibody: [id number] MSH 6: Vendor: [employer], Primary Antibody: 44 PMS2: Vendor: [employer] [employer], Primary Antibody: A16-4 Detection System: MLH1, MSH2, PMS2: [employer] [employer] OptiView DAB IHC Detection Kit (indirect biotin-free detection) MSH6: [employer] [employer] ultraView [place] DAB Detection Kit (indirect biotin-free detection) MSH6 was developed and its performance characteristics determined by the [facility] Immunohistochemistry Department. It [...] Carcinoma of the Colon and Rectum. Version: ColonBiomarkers 1.2.0.1. Template posting date: August 2014. [email or web address] Report Electronically Signed Out dorothea/04/05/2024DOROTHEA Addendum (PHS) Date Reported: Gastric biomarker Reporting [...] Formalin (Formalin-fixed, paraffin embedded tissue) MLH1: Vendor: [employer], Primary Antibody: M1 MSH2: Vendor: [employer] [employer], Primary Antibody: [id number] MSH 6: Vendor: [employer], Primary Antibody: 44 PMS2: Vendor: [employer] [employer], Primary Antibody: A16-4 Detection System: MLH1, MSH2, PMS2: [place] OptiView DAB IHC Detection Kit (indirect biotin-free detection) MSH6: [place] ultraView [place] DAB Detection Kit (indirect biotin-free detection) MSH6 was developed and its performance characteristics determined by the [facility] Immunohistochemistry Department. It has not been cleared [...] Carcinoma of the Colon and Rectum. Version: ColonBiomarkers 1.2.0.1. Template posting date: August 2014. [employer] Rigoberto Fischer MD Interpretation performed at [facility], [address] [place] [address], License number: [id number]. Gross Description Per (more content not included)... CNCNPATEDon 04-03-2024 CNCNPATED Normal [facility] CNPNon 03-28-2024 CNPN Normal [facility] CNPNon 03-27-2024 CNPN Normal [facility] CA 19-9on 03-24-2024 Cancer Ag 19-9 Qn 806.0 [arb'U]/mL High NINF - 36.0 U/mL [facility] Comment on above: Cancer antigen 19-9 test is used as an aid in monitoring response to treatment or recurrence in patients with established pancreatic, hepatobiliary, or gastrointestinal malignancies. Clinical correlation is required. The CA 19-9 Antigen test was performed using the [employer] DXI paramagnetic particle chemiluminescent immunoassay method. Results obtained with different assay methods or kits cannot be used interchangeably. CARCINOEMBRYONIC ANTIGENon 0 03-24-2024 Carcinoembryonic Ag [Mass/Vol] 2.2 ng/mL NINF - 2.9 ng/mL [facility] Comment on above: Carcinoembryonic ant igen test is used as an aid in monitoring response to treatment or recurrence in patients with established colorectal, breast, lung, prostatic, pancreatic, and ovarian carcinomas. Clinical correlation is required. The Carcinoembryonic antigen test was performed using the [employer] DXI paramagnetic particle chemiluminescent immunoassay method. Results obtained with different assay methods or kits cannot be used interchangeably. [facility] Normal [facility] Cancer Ag 19-9 Qnon 03-24-20 24 Interpretation and review of laboratory results Abnormal [facility] Carcinoembryonic Ag [Mass/Vo l]on 03-24-2024 Interpretation and review of laboratory results Normal [facility] Cobalamin (Vitamin B12) [Mas s/Vol]on 03-24-2024 Interpretation and review of laboratory results Abnormal [facility] Comprehensive metabolic 2000 panelOrdered By: Grisel Ludwig on 03-24-2024 Albumin [Mass/Vol] 3.8 g/dL Low 3.9 - 4.9 g/dL [facility] ALP [Catalytic activity/Vol] 110 U/L 34 - 123 U/L [facility] ALT [Catalytic activity/Vol] 7 U/L 7 - 38 U/L [facility] Anion gap [Moles/Vol] 9 mmol/L 8 - 15 mmol/L [facility] AST [Catalytic activity/Vol] 18 U/L 13 - 35 U/L [facility] Bilirubin [Mass/Vol] 0.4 mg/dL 0.2 - 1.3 mg/dL [facility] Calcium [Mass/Vol] 10.8 mg/dL High 8.5 - 10. 2 mg/dL [facility] Chloride [Moles/Vol] 104 mmol/L 98 - 107 mmol/L [facility] CO2 [Moles/Vol] 24 mmol/L 22 - 30 mmol/L [facility] Creatinine [Mass/Vol] 1.25 mg/dL High 0.58 - 0.96 mg/dL [facility] GFR/1.73 sq M.predicted among non-blacks MDRD (S/P/Bld) [Vol rate/Area] 49 mL/min/{1.73_m2} Low - PINF [facility] Comment on above: Estimated Glomerular Filtration Rate [...] 227 mg/dL High 74 - 99 mg/dL [facility] Comment on above: The [place] Diabete s Association (ADA) provides guidance for [...] Standards of Medical Care in Diabetes 2016, [place] Diabetes Association. Diabetes Care. 2016.39(Suppl 1). Interpretation and review of laboratory results Abnormal [facility] Potassium [Moles/Vol] 3.7 mmol/L 3.7 - 5.1 mmol/L [facility] Protein [Mass/Vol] 6.9 g/dL 6.3 - 8.0 g/dL [facility] Sodium [Moles/Vol] 137 mmol/L 136 - 144 mmol/L [facility] Urea nitrogen [Mass/Vol] 24 mg/dL High 7 - 21 mg/dL [facility] VITAMIN B12on 03-24-2024 Cobalamin (Vitamin B12) [Mass/Vol] pg/mL Low 232 - 1245 pg/mL [facility] Comment on above: Result rechecked. CBC W Auto Differential pane l (Bld)on 03-23-2024 Basophils (Bld) [#/Vol] [facility] Basophils/100 WBC (Bld) 0.2 % [facility] Differential cell count method Nom (Bld) Auto [facility] Eosinophils (Bld) [#/Vol] 0.04 10*3/uL [facility] Eosinophils/100 WBC (Bld) 0.8 % [facility] Erythrocyte distribution width (RBC) [Ratio] 17.8 % High 11.5 - 15.0 % [facility] Hematocrit (Bld) [Volume fraction] 22.5 % Low 36.0 - 46.0 % [facility] Hemoglobin (Bld) [Mass/Vol] 7.6 g/dL Low 11.5 - 15.5 g/dL [facility] Immature granulocytes (Bld) [#/Vol] [facility] Immature granulocytes/100 WBC (Bld) 0.4 % [facility] Interpretation and review of laboratory results Abnormal [facility] Lymphocytes (Bld) [#/Vol] 0.73 10*3/uL Low [facility] Lymphocytes/100 WBC (Bld) 15.4 % [facility] MCH (RBC) [Entitic mass] 38.8 pg High 26.0 - 34.0 pg [facility] MCHC (RBC) [Mass/Vol] 33.8 g/dL 30.5 - 36.0 g/dL [facility] MCV (RBC) [Entitic vol] 114.8 fL High 80.0 - 100.0 fL [facility] Monocytes (Bld) [#/Vol] 0.31 10*3/uL [facility] Monocytes/100 WBC (Bld) 6.5 % [facility] Neutrophils (Bld) [#/Vol] 3.64 10*3/uL [facility] Neutrophils/100 WBC (Bld) 76.7 % [facility] Nucleated RBC (Bld) [#/Vol] [facility] Nucleated RBC/100 WBC (Bld) [Ratio] 0.0 % /100 WBC [facility] Platelet mean volume (Bld) [Entitic vol] 9.0 fL 9.0 - 12.7 fL [facility] Platelets (Bld) [#/Vol] 247 10*3/uL [facility] RBC (Bld) [#/Vol] 1.96 10*6/uL Low 3.90 - 5.2 0 m/uL [facility] WBC (Bld) [#/Vol] 4.75 10*3/uL [facility] Basophils (Bld) [#/Vol] 10*3/uL Normal <0.11 [facility] Comment on above: Order Comment: Speci men Type: BLOOD SPECIMENOrdering Facility: [facility] Address: [address] [place] [address] Performed By: #### 5 7021-8 ####[facility] LABCLIA [id number] [place] [address] Basophils/100 WBC (Bld) 0.2 % Normal [facility] Comment on above: Order Comment: Speci men Type: BLOOD SPECIMENOrdering Facility: [facility] Address: [address] [place] [address] Performed By: #### 5 7021-8 ####[facility] LABCLIA [id number] [place] [address] Differential cell count method Nom (Bld) Auto Normal [facility] Comment on above: Order Comment: Speci men Type: BLOOD SPECIMENOrdering Facility: [facility] Address: [address] [place] [address] Performed By: #### 5 7021-8 ####[facility] LABCLIA [id number] [place] [address] Eosinophils (Bld) [#/Vol] 0.04 10*3/uL Normal <0.46 [facility] Comment on above: Order Comment: Speci men Type: BLOOD SPECIMENOrdering Facility: [facility] Address: [address] [place] [address] Performed By: #### 5 7021-8 ####[facility] LABCLIA [id number] [place] [address] Eosinophils/100 WBC (Bld) 0.8 % Normal [facility] Comment on above: Order Comment: Speci men Type: BLOOD SPECIMENOrdering Facility: [facility] Address: [address] [place] [address] Performed By: #### 5 7021-8 ####[facility] LABCLIA [id number] [place] [address] Erythrocyte distribution width (RBC) [Ratio] 17.8 % High 11.5-15.0 [facility] Comment on above: Order Comment: Speci men Type: BLOOD SPECIMENOrdering Facility: [facility] Address: [address] [place] [address] Performed By: #### 5 7021-8 ####[facility] LABCLIA [id number] [place] [address] Hematocrit (Bld) [Volume fraction] 22.5 % Low 36.0-46.0 [facility] Comment on above: Order Comment: Speci men Type: BLOOD SPECIMENOrdering Facility: [facility] Address: [address] [place] [address] Performed By: #### 5 7021-8 ####[facility] LABCLIA [id number] [place] [address] Hemoglobin (Bld) [Mass/Vol] 7.6 g/dL Low 11.5-15.5 [facility] Comment on above: Order Comment: Speci men Type: BLOOD SPECIMENOrdering Facility: [facility] Address: [address] [place] [address] Performed By: #### 5 7021-8 ####[facility] LABCLIA [id number] [place] [address] Immature granulocytes (Bld) [#/Vol] 10*3/uL Normal <0.10 [facility] Comment on above: Order Comment: Speci men Type: BLOOD SPECIMENOrdering Facility: [facility] Address: [address] [place] [address] Performed By: #### 5 7021-8 ####[facility] LABCLIA [id number] [place] [address] Immature granulocytes/100 WBC (Bld) 0.4 % Normal [facility] Comment on above: Order Comment: Speci men Type: BLOOD SPECIMENOrdering Facility: [facility] Address: [address] [place] [address] Performed By: #### 5 7021-8 ####[facility] LABCLIA [id number] [place] [address] Lymphocytes (Bld) [#/Vol] 0.73 10*3/uL Low 1.00-4.00 [facility] Comment on above: Order Comment: Speci men Type: BLOOD SPECIMENOrdering Facility: [facility] Address: [address] [place] [address] Performed By: #### 5 7021-8 ####[facility] LABCLIA [id number] [place] [address] Lymphocytes/100 WBC (Bld) 15.4 % Normal [facility] Comment on above: Order Comment: Speci men Type: BLOOD SPECIMENOrdering Facility: [facility] Address: [address] [place] [address] Performed By: #### 5 7021-8 ####[facility] LABCLIA [id number] [place] [address] MCH (RBC) [Entitic mass] 38.8 pg High 26.0-34.0 [facility] Comment on above: Order Comment: Speci men Type: BLOOD SPECIMENOrdering Facility: [facility] Address: [address] [place] [address] Performed By: #### 5 7021-8 ####[facility] LABCLIA [id number] [place] [address] MCHC (RBC) [Mass/Vol] 33.8 g/dL Normal 30.5-36.0 [facility] Comment on above: Order Comment: Speci men Type: BLOOD SPECIMENOrdering Facility: [facility] Address: [address] [place] [address] Performed By: #### 5 7021-8 ####[facility] LABCLIA [id number] [place] [address] MCV (RBC) [Entitic vol] 114.8 fL High 80.0-100.0 [facility] Comment on above: Order Comment: Speci men Type: BLOOD SPECIMENOrdering Facility: [facility] Address: [address] [place] [address] Performed By: #### 5 7021-8 ####[facility] LABCLIA [id number] [place] [address] Monocytes (Bld) [#/Vol] 0.31 10*3/uL Normal <0.87 [facility] Comment on above: Order Comment: Speci men Type: BLOOD SPECIMENOrdering Facility: [facility] Address: [address] [place] [address] Performed By: #### 5 7021-8 ####[facility] LABCLIA [id number] [place] [address] Monocytes/100 WBC (Bld) 6.5 % Normal [facility] Comment on above: Order Comment: Speci men Type: BLOOD SPECIMENOrdering Facility: [facility] Address: [address] [place] [address] Performed By: #### 5 7021-8 ####[facility] LABCLIA [id number] [place] [address] Neutrophils (Bld) [#/Vol] 3.64 10*3/uL Normal 1.45-7.50 [facility] Comment on above: Order Comment: Speci men Type: BLOOD SPECIMENOrdering Facility: [facility] Address: [address] [place] [address] Performed By: #### 5 7021-8 ####[facility] LABCLIA [id number] [place] [address] Neutrophils/100 WBC (Bld) 76.7 % Normal [facility] Comment on above: Order Comment: Speci men Type: BLOOD SPECIMENOrdering Facility: [facility] Address: [address] [place] [address] Performed By: #### 5 7021-8 ####[facility] LABCLIA [id number] [place] [address] Nucleated RBC (Bld) [#/Vol] 10*3/uL Normal <0.01 [facility] Comment on above: Order Comment: Speci men Type: BLOOD SPECIMENOrdering Facility: [facility] Address: [address] [place] [address] Performed By: #### 5 7021-8 ####[facility] LABCLIA [id number] [place] [address] Nucleated RBC/100 WBC (Bld) [Ratio] 0.0 /100 WBC Normal [facility] Comment on above: Order Comment: Speci men Type: BLOOD SPECIMENOrdering Facility: [facility] Address: [address] [place] [address] Performed By: #### 5 7021-8 ####[facility] LABCLIA [id number] [place] [address] Platelet mean volume (Bld) [Entitic vol] 9.0 fL Normal 9.0-12.7 [facility] Comment on above: Order Comment: Speci men Type: BLOOD SPECIMENOrdering Facility: [facility] Address: [address] [place] [address] Performed By: #### 5 7021-8 ####[facility] LABCLIA [id number] [place] [address] Platelets (Bld) [#/Vol] 247 10*3/uL Normal 150-400 [facility] Comment on above: Order Comment: Speci men Type: BLOOD SPECIMENOrdering Facility: [facility] Address: [address] [place] [address] Performed By: #### 5 7021-8 ####[facility] LABCLIA [id number] [place] [address] RBC (Bld) [#/Vol] 1.96 10*6/uL Low 3.90-5.20 [facility] Comment on above: Order Comment: Speci men Type: BLOOD SPECIMENOrdering Facility: [facility] Address: [address] [place] [address] Performed By: #### 5 7021-8 ####[facility] LABCLIA [id number] [place] [address] WBC (Bld) [#/Vol] 4.75 10*3/uL Normal 3.70-11.00 [facility] Comment on above: Order Comment: Speci men Type: BLOOD SPECIMENOrdering Facility: [facility] Address: [address] [place] [address] Performed By: #### 5 7021-8 ####[facility] LABCLIA [id number] [place] [address] CEA SerPl-ncon 03-23-2024 Carcinoembryonic Ag [Mass/Vol] 2.2 ng/mL Normal <=2.9 [facility] Comment on above: Order Comment: Speci men Type: BLOOD SPECIMENOrdering Facility: [facility] Address: [address] [place] [address] Result Comment: Carc inoembryonic antigen test is used as an aid in monitoring response to treatment or recurrence in patients with established colorectal, breast, lung, prostatic, pancreatic, and ovarian carcinomas. Clinical correlation is required.The Carcinoembryonic antigen test was performed using the [employer] DXI paramagnetic particle chemiluminescent immunoassay method. Results obtained with different assay methods or kits cannot be used interchangeably. Performed By: #### 2 4108-3, 2038- ####[facility] LABCLIA [id number] [place] [id number] [place] CIRCULATING TUMOR DNA GENOMI C ANALYSIS FOR SOLID TUMORSRESTRICTED TO ONCOLOGYon 03-23-2024 RESULTS View results in Scan karen Documents link when available. Normal [facility] Comment on above: Order Comment: Speci men Type: BLOOD SPECIMENOrdering Facility: [facility] Address: [address] [place] [address] CNNURSEon 03-23-2024 CNNURSE Normal [facility] CNOVSPon 03-23-2024 CNOVSP Normal [facility] CNPNon 03-23-2024 CNPN Normal [facility] Cancer Ag19-9 SerPl-aCncon 0 03-23-2024 Cancer Ag 19-9 Qn 806.0 [arb'U]/mL High <36.0 C [facility] Comment on above: Order Comment: Paco fenton Type: BLOOD SPECIMENOrdering Facility: [facility] Address: [address] [place] [address] Result Comment: [facility] er antigen 19-9 test is used as an aid in monitoring response to treatment or recurrence in patients with established pancreatic, hepatobiliary, or gastrointestinal malignancies. Clinical correlation is required.The CA 19-9 Antigen test was performed using the [employer] DXI paramagnetic particle chemiluminescent immunoassay method. Results obtained with different assay methods or kits cannot be used interchangeably. Performed By: #### 2 4108-3, 2039-02 ####[facility] LABCLIA [id number] [place] [id number] [place] Comprehensive metabolic 2000 panelon 03-23-2024 Albumin [Mass/Vol] 3.8 g/dL Low 3.9-4.9 [facility] Comment on above: Order Comment: Speci men Type: BLOOD SPECIMENOrdering Facility: [facility] Address: [address] [id number] Performed By: #### 2 4323-8 ####[facility] LABCLIA [id number] [place] [address] ALP [Catalytic activity/Vol] 110 U/L Normal 34-123 [facility] Comment on above: Order Comment: Speci men Type: BLOOD SPECIMENOrdering Facility: [facility] Address: [facility] [place] [id number] Performed By: #### 2 4323-8 ####[facility] LABCLIA [id number] [place] [address] ALT [Catalytic activity/Vol] 7 U/L Normal 7-38 [facility] Comment on above: Order Comment: Speci men Type: BLOOD SPECIMENOrdering Facility: [facility] Address: [address] [place] [address] Performed By: #### 2 4323-8 ####[facility] LABCLIA [id number] [place] [address] Anion gap [Moles/Vol] 9 mmol/L Normal 8-15 [facility] Comment on above: Order Comment: Speci men Type: BLOOD SPECIMENOrdering Facility: [facility] Address: [address] [place] [address] Performed By: #### 2 4323-8 ####[facility] LABCLIA [id number] [place] [address] AST [Catalytic activity/Vol] 18 U/L Normal 13-35 [facility] Comment on above: Order Comment: Speci men Type: BLOOD SPECIMENOrdering Facility: [facility] Address: [address] [place] [address] Performed By: #### 2 4323-8 ####[facility] LABCLIA [id number] [place] [address] Bilirubin [Mass/Vol] 0.4 mg/dL Normal 0.2-1.3 [facility] Comment on above: Order Comment: Speci men Type: BLOOD SPECIMENOrdering Facility: [facility] Address: [address] [place] [address] Performed By: #### 2 4323-8 ####[facility] LABCLIA [id number] [place] [address] Calcium [Mass/Vol] 10.8 mg/dL High 8.5-10.2 [facility] Comment on above: Order Comment: Speci men Type: BLOOD SPECIMENOrdering Facility: [facility] Address: [address] [place] [address] Performed By: #### 2 4323-8 ####[facility] LABCLIA [id number] [place] [address] Chloride [Moles/Vol] 104 mmol/L Normal 98-107 [facility] Comment on above: Order Comment: Speci men Type: BLOOD SPECIMENOrdering Facility: [facility] Address: [address] [place] [address] Performed By: #### 2 4323-8 ####[facility] LABCLIA [id number] [place] [address] CO2 [Moles/Vol] 24 mmol/L Normal 22-30 [facility] Comment on above: Order Comment: Speci men Type: BLOOD SPECIMENOrdering Facility: [facility] Address: [address] [place] [address] Performed By: #### 2 4323-8 ####[facility] LABCLIA [id number] [place] [address] Creatinine [Mass/Vol] 1.25 mg/dL High 0.58-0.96 [facility] Comment on above: Order Comment: Speci men Type: BLOOD SPECIMENOrdering Facility: [facility] Address: [address] [place] [address] Performed By: #### 2 4323-8 ####[facility] LABIA [id number] [place] [address] Creatinine and Glomerular filtration rate.predicted panel (S/P/Bld) 49 mL/min/1.73m??? Low >=60 [facility] Comment on above: Order Comment: Speci men Type: BLOOD SPECIMENOrdering Facility: [facility] Address: [address] [place] [address] Result Comment: Carmen mated Glomerular Filtration Rate [...] actual GFR. Performed By: #### 2 4323-8 ####[facility] LABCLIA [id number] [place] [address] Glucose [Mass/Vol] 227 mg/dL High 74-99 [facility] Comment on above: Order Comment: Paco fenton Type: BLOOD SPECIMENOrdering Facility: [facility] Address: [address] [place] [address] Result Comment: The [place] Diabetes Association (ADA) provides guidance for cutoff [...] Standards of Medical Care in Diabetes 2016, [place] Diabetes Association. Diabetes Care. 2016.39(Suppl 1). Performed By: #### 2 4323-8 ####[facility] LABCLIA [id number] [place] [address] Potassium [Moles/Vol] 3.7 mmol/L Normal 3.7-5.1 [facility] Comment on above: Order Comment: Paco fenton Type: BLOOD SPECIMENOrdering Facility: [facility] Address: [address] [id number] Performed By: #### 2 4323-8 ####[facility] LABCLIA [id number] [place] [address] Protein [Mass/Vol] 6.9 g/dL Normal 6.3-8.0 [facility] Comment on above: Order Comment: Speci men Type: BLOOD SPECIMENOrdering Facility: [facility] Address: [address] [place] [address] Performed By: #### 2 4323-8 ####[facility] LABCLIA [id number] [place] [address] Sodium [Moles/Vol] 137 mmol/L Normal 136-144 [facility] Comment on above: Order Comment: Speci men Type: BLOOD SPECIMENOrdering Facility: [facility] Address: [address] [place] [address] Performed By: #### 2 4323-8 ####[facility] LABCLIA [id number] [place] [address] Urea nitrogen [Mass/Vol] 24 mg/dL High 7-21 [facility] Comment on above: Order Comment: Speci men Type: BLOOD SPECIMENOrdering Facility: [facility] Address: [address] [place] [address] Performed By: #### 2 4323-8 ####[facility] LABCLIA [id number] [place] [address] Ferritin SerPl-ncon 2023 Ferritin [Mass/Vol] 19.5 ng/mL Normal 14.7-205.1 [facility] Comment on above: Order Comment: Speci men Type: BLOOD SPECIMENOrdering Facility: [facility] Address: [address] [place] [address] Performed By: #### 5 0190-8, 2276-4, 3016-3, T4FTI ####[facility] LABCLIA [id number] [place] [address] [id number] [place] Iron and Iron binding capaci ty panelon 03-23-2024 Iron [Mass/Vol] 43 ug/dL Normal 41-186 [facility] Comment on above: Order Comment: Speci men Type: BLOOD SPECIMENOrdering Facility: [facility] Address: [address] [place] [address] Performed By: #### 5 0190-8, 6-4, 3016-3, T4FTI ####[facility] LABCLIA [id number] [place] [id number] [place] Iron binding capacity [Mass/Vol] 292 ug/dL Normal 232-386 [facility] Comment on above: Order Comment: Speci men Type: BLOOD SPECIMENOrdering Facility: [facility] Address: [address] [place] [address] Performed By: #### 5 0190-8, 2275-4, 3016-3, T4FTI ####[facility] LABCLIA [id number] [place] [address] [place] Iron/TIBC [Molar ratio] 14.7 % Low 15.0-57.0 [facility] Comment on above: Order Comment: Speci men Type: BLOOD SPECIMENOrdering Facility: [facility] Address: [address] [place] [address] Performed By: #### 5 0190-8, 6-4, 3016-3, T4FTI ####[facility] LABCLIA [id number] [place] [address] [place] T4/FTI/T4Uon 03-23-2024 FTI 7.7 ug/dL Normal 5.3-10.8 [facility] Comment on above: Order Comment: Speci men Type: BLOOD SPECIMENOrdering Facility: [facility] Address: [address] [place] [address] Performed By: #### 5 0190-8, 6-4, 3016-3, T4FTI ####[facility] LABCLIA [id number] [place] [id number] [place] T4 [Mass/Vol] 8.2 ug/dL Normal 5.5-10.2 [facility] Comment on above: Order Comment: Speci men Type: BLOOD SPECIMENOrdering Facility: [facility] Address: [address] [place] [address] Performed By: #### 5 0190-8, 2276-4, 3016-3, T4FTI ####[facility] LABCLIA [id number] [place] [address] [place] T4 uptake [Mass/Vol] 1.06 Normal 0.91-1.19 [facility] Comment on above: Order Comment: Speci men Type: BLOOD SPECIMENOrdering Facility: [facility] Address: [address] [place] [address] Performed By: #### 5 0190-8, 6-4, 3016-3, T4FTI ####[facility] LABCLIA [id number] [place] [address] [place] TSH SerPl-aCncon 03-23-2024 TSH Qn 9.710 m[IU]/L High 0.270-4.200 [facility] Comment on above: Order Comment: Speci men Type: BLOOD SPECIMENOrdering Facility: [facility] Address: [address] [place] [address] Performed By: #### 5 0190-8, 2276-4, 3016-3, T4FTI ####[facility] LABCLIA [id number] [place] [address] [place] Vit B12 SerPl-mCncon 024 Cobalamin (Vitamin B12) [Mass/Vol] pg/mL Low 232-1245 [facility] Comment on above: Order Comment: Speci men Type: BLOOD SPECIMENOrdering Facility: [facility] Address: [address] [place] [address] Result Comment: Resu lt rechecked. Performed By: #### 2 132-9 ####[facility] LABCLIA [id number] [place] [address] [place] Surgical Pathologyon 024 Surgical Pathology Normal [facility] Comment on above: Result Comment: [facility] [address] [place] [address] Surgical Pathology Consultation ADDENDUM HI Patient Name:KAYA SCHILLING:1965 (Age: 59)Gender:FTaken:03/02/2024eported:03/08/2024hysician(s):Cong Montano D.O. ([phone])Copy To: Rec. #:[id number]: #[id number] Final Pathologic Diagnosis 1. Cardia mass biopsy: Invasive ADENOCARCINOMA, intestinal type, low-grade. 2. Ascending colon polyp; polypectomy: Nondiagnostic sample (only food particles noted). Report Electronically Signed Out wak/03/08/2024Rigoberto Fischer MD Addendum ([facility]) Date Reported: 03/15/2024 Gastric HER2 Biomarker Reporting Template HER2 (by immunohistochemistry) Equivocal (score 2+) -see comment. Comment: The block has been sent out for HER2/apollo studies by FISH analysis; addendum to follow. Methods - Block: 1A Fixative: Formalin (Formalin-fixed, paraffin embedded tissue) HER2: FDA approved (test/vendor): Pathway/ [place], Primary Antibody: 4B5 Detection System: [place] ultraView [place] DAB Detection Kit (indirect biotin-free detection) Scoring [...] Gastroesophageal Adenocarcinoma Guideline From the College of [place] Pathologists, [place] Society for Clinical Pathology, and [place] Society of Clinical Oncology. Arch Pathol Lab Med. 2016;140:3745-8392; doi:10.5858/arpa.0856-5450-W[place]; 10.5858/arpa.3433-4124-TB.s1) 2. Guero et al. HER2 diagnostics in gastric cancer-guideline validation and development of standardized immunohistochemical testing. [place] Arch. 2010; 457:299-307. 3. Benji VASQUEZ, Peter Jennings E, Tim A, et al. Trastuzumab in combination with chemotherapy versus chemotherapy alone for treatment of HER2-positive gastric or gastro-oesophageal junction cancer (ToGA): A phase 3, open-label, randomized controlled trial. Lancet. 2010;376(6565):570-607. Electronically Signed Out Rigoberto Fischer MD Addendum ([facility]) Date Reported: 03/23/2024 Results of testing for HER2, Gastroesophageal FISH, Tissue are received on 03/23/2024 from [facility], [address] [place] [address] and are as follows: Result Summary: Negative [...] Martina et al., Am J Clin Pathol, 146(6);308-669, 2016. Result nuc laura(D17Z1,HER2)x2 HER2/D17Z1 ratio: 1.08 Average HER2 signals per cell: 2.0 Average D17Z1 signals per cell: 1.9 Reason for Referral: r/o HER2/apollo gene amplification Source: Cardia mass Method: FISH using probes for HER2 (17q12) and a chromosome 17 centromere (D17Z1) control probe ([employer] Two technologists score signals in 60 total nuclei from invasive or metastatic tumor after confirmation of probe performance by concurrent controls. Scoring method: Manual. Please see the complete report from [facility] in the patient???s electronic medical record. Electronically Signed Out Rigoberto Fischer, (more content not included)... COMPLETE BLOOD COUNTon 01-20 Erythrocyte distribution width (RBC) [Ratio] 22.6 % High 11.5-15.0 [facility] Comment on above: Performed By: #### C DILCIA, CMP, HA1C #### [facility] ([id number]) [address], [address] [place] [address] Hematocrit (Bld) [Volume fraction] 27.1 % Low 35-47 [facility] Comment on above: Performed By: #### C DILCIA, CMP, HA1C #### [facility] ([id number]) [address] [place] [address] Hemoglobin (Bld) [Mass/Vol] 9.1 g/dL Low 11.7-15.5 [facility] Comment on above: Performed By: #### C BC, CMP, HA1C #### [facility] ([id number]) [address], [address] [place] [address] MCH (RBC) [Entitic mass] 36.9 pg High 27-34 [facility] Comment on above: Performed By: #### C BC, CMP, HA1C #### [facility] ([id number]) [address], [address] [place] [address] MCHC (RBC) [Mass/Vol] 33.7 g/dL Normal 32-36 [facility] Comment on above: Performed By: #### C BC, CMP, HA1C #### [facility] ([id number]) [address], [address] [place] [address] MCV (RBC) [Entitic vol] 109 fL High 80-100 [facility] Comment on above: Performed By: #### C BC, CMP, HA1C #### [facility] ([id number]) [address], [address] [place] [address] Platelet mean volume (Bld) [Entitic vol] 6.8 fL Low 7-12 [facility] Comment on above: Performed By: #### C BC, CMP, HA1C #### [facility] ([id number]) [address], [address] [place] [address] Platelets (Bld) [#/Vol] 397 10*3/uL Normal 150-450 [facility] Comment on above: Performed By: #### C BC, CMP, HA1C #### [facility] ([id number]) [address], [address] [place] [address] RBC COUNT 2.47 X10E12/L Low 3.80-5.20 [facility] Comment on above: Performed By: #### C BC, CMP, HA1C #### [facility] ([id number]) [address], [address] [place] [address] WBC (Bld) [#/Vol] 4.8 10*3/uL Normal 4.0-11.0 [facility] Comment on above: Performed By: #### C BC, CMP, HA1C #### [facility] ([id number]) [address], [address] [place] [address] COMPREHENSIVE METABOLIC PANE Jj 01-21-2024 Albumin [Mass/Vol] 3.9 g/dL Normal 3.2-5.3 [facility] Comment on above: Performed By: #### C BC, CMP, HA1C #### [facility] ([id number]) [address] [place] [address] ALP [Catalytic activity/Vol] 89 U/L Normal 39-130 [facility] Comment on above: Performed By: #### C BC, CMP, HA1C #### [facility] ([id number]) [address], [address] [place] [address] ALT [Catalytic activity/Vol] 8 U/L Normal 0-31 [facility] Comment on above: Performed By: #### C BC, CMP, HA1C #### [facility] ([id number]) [address], [address] [place] [address] Anion gap [Moles/Vol] 10 mmol/L Normal 5-15 [facility] Comment on above: Performed By: #### C BC, CMP, HA1C #### [facility] ([id number]) [address], [address] [place] [address] AST [Catalytic activity/Vol] 13 U/L Normal 0-41 [facility] Comment on above: Performed By: #### C BC, CMP, HA1C #### [facility] ([id number]) [address], [address] [place] [address] Bilirubin [Mass/Vol] 0.9 mg/dL Normal 0.3-1.2 [facility] Comment on above: Performed By: #### Payton HA CMP, HA1C #### [facility] ([id number]) [address], [address] [place] [address] Calcium [Mass/Vol] 10.7 mg/dL High 8.5-10.5 [facility] Comment on above: Performed By: #### C VALERIE HA, HA1C #### [facility] ([id number]) [address], [facility] [address] [place] [address] Chloride [Moles/Vol] 104 mmol/L Normal 98-109 [facility] Comment on above: Performed By: #### Payton HA CMP, HA1C #### [facility] ([id number]) [address], [facility] [address] [place] [address] CO2 [Moles/Vol] 25 mmol/L Normal 22-32 [facility] Comment on above: Performed By: #### Payton HA CMP, HA1C #### [facility] ([id number]) [address] [place] [address] Creatinine [Mass/Vol] 1.03 mg/dL High 0.40-1.00 [facility] Comment on above: Result Comment: METH OD TRACEABLE TO IDMS STANDARD Performed By: #### Payton HA CMP, HA1C #### [facility] ([id number]) [address], [address] [place] [address] GFR/1.73 sq M.predicted among non-blacks MDRD (S/P/Bld) [Vol rate/Area] 62 mL/min/{1.73_m2} Normal >59 [facility] Comment on above: Result Comment: Reported eGFR is based on the CKD-EPI 2020 equation that does not use a race coefficient. Performed By: #### C VALERIE HA, HA1C #### [facility] ([id number]) [address], [address] [place] [address] Glucose [Mass/Vol] 175 mg/dL High 65-99 [facility] Comment on above: Performed By: #### C DILCIA CMP, HA1C #### [facility] ([id number]) [address], [address] [place] [address] Potassium [Moles/Vol] 3.8 mmol/L Normal 3.5-5.0 [facility] Comment on above: Performed By: #### C DILCIA, CMP, HA1C #### [facility] ([id number]) [address], [address] [place] [address] Protein [Mass/Vol] 7.0 g/dL Normal 6.0-8.0 [facility] Comment on above: Performed By: #### Payton HA CMP, HA1C #### [facility] ([id number]) [address] [place] [address] Sodium [Moles/Vol] 139 mmol/L Normal 134-146 [facility] Comment on above: Performed By: #### Payton HA, CMP, HA1C #### [facility] ([id number]) [address], [address] [place] [address] Urea nitrogen [Mass/Vol] 20 mg/dL Normal 5-23 [facility] Comment on above: Performed By: #### Payton HA, CMP, HA1C #### [facility] ([id number]) [address], [address] [place] [address] HGB A1C (GLYCO-HGB)on 2023 Glucose [Mass/Vol] 128 mg/dL Normal [facility] Comment on above: Performed By: #### C DILCIA, CMP, HA1C #### [facility] ([id number]) [address], [address] [place] [address] HbA1c (Bld) [Mass fraction] 6.1 % High 4.4-5.6 [facility] Comment on above: Result Comment: NOTE ADA Guidelines Result HgbA1c Normal : less than 5.7 % Prediabetes : 5.7 % to 6.4 % Diabetes : > 6.4 % Use with caution in patients with abnormal hemoglobin variants as the half-life of red blood cells and in vivo glycation rates are affected. Performed By: #### C BC, CMP, HA1C #### [facility] ([id number]) [address] [address] [place] [address] Parathyrin.intact [Mass/Vol] on 01-21-2024 PTH INTACT 130 pg/mL High 12- [facility] Comment on above: Performed By: #### 2 731-8 #### [facility] ([id number]) [address], [address] [place] [address] COMPLETE BLOOD COUNTon 08-23 Erythrocyte distribution width (RBC) [Ratio] 17.8 % High 11.5-15.0 [facility] Comment on above: Performed By: #### C BC, CMP #### [facility] ([id number]) [address] [address] [place] [address] Hematocrit (Bld) [Volume fraction] 32.9 % Low 35-47 [facility] Comment on above: Performed By: #### C BC, CMP #### [facility] ([id number]) [address] [address] [place] [address] Hemoglobin (Bld) [Mass/Vol] 11.0 g/dL Low 11.7-15.5 [facility] Comment on above: Performed By: #### C BC, CMP #### [facility] ([id number]) [address] [address] [place] [address] MCH (RBC) [Entitic mass] 31.5 pg Normal 27-34 [facility] Comment on above: Performed By: #### C DILCIA, CMP #### [facility] ([id number]) [address] [place] [address] MCHC (RBC) [Mass/Vol] 33.5 g/dL Normal 32-36 [facility] Comment on above: Performed By: #### C BC, CMP #### [facility] ([id number]) [address] [place] [address] MCV (RBC) [Entitic vol] 94 fL Normal 80-100 [facility] Comment on above: Performed By: #### C DILCIA, CMP #### [facility] ([id number]) [address], [facility] [address] [place] [address] Platelet mean volume (Bld) [Entitic vol] 6.8 fL Low 7-12 [facility] Comment on above: Performed By: #### C DILCIA, CMP #### [facility] ([id number]) [address] [place] [address] Platelets (Bld) [#/Vol] 432 10*3/uL Normal 150-450 [facility] Comment on above: Performed By: #### C DILCIA, CMP #### [facility] ([id number]) [address] [place] [address] RBC COUNT 3.50 X10E12/L Low 3.80-5.20 [facility] Comment on above: Performed By: #### C DILCIA, CMP #### [facility] ([id number]) [address], [address] [place] [address] WBC (Bld) [#/Vol] 7.1 10*3/uL Normal 4.0-11.0 [facility] Comment on above: Performed By: #### C DILCIA, CMP #### [facility] ([id number]) [address], [address] [place] [address] COMPREHENSIVE METABOLIC PANE Jj 08-23-2023 Albumin [Mass/Vol] 4.2 g/dL Normal 3.2-5.3 [facility] Comment on above: Performed By: #### C BC, CMP #### [facility] ([id number]) [address] [place] [address] ALP [Catalytic activity/Vol] 115 U/L Normal 39-130 [facility] Comment on above: Performed By: #### C BC, CMP #### [facility] ([id number]) [address] [place] [address] ALT [Catalytic activity/Vol] 12 U/L Normal 0-31 [facility] Comment on above: Performed By: #### C BC, CMP #### [facility] ([id number]) [address] [place] [address] Anion gap [Moles/Vol] 8 mmol/L Normal 5-15 [facility] Comment on above: Performed By: #### C BC, CMP #### [facility] ([id number]) [address] [place] [address] AST [Catalytic activity/Vol] 13 U/L Normal 0-41 [facility] Comment on above: Performed By: #### C BC, CMP #### [facility] ([id number]) [address] [place] [address] Bilirubin [Mass/Vol] 0.3 mg/dL Normal 0.3-1.2 [facility] Comment on above: Performed By: #### C BC, CMP #### [facility] ([id number]) [address], [address] [place] [address] Calcium [Mass/Vol] 12.0 mg/dL High 8.5-10.5 [facility] Comment on above: Performed By: #### C BC, CMP #### [facility] ([id number]) [address], [address] [place] [address] Chloride [Moles/Vol] 102 mmol/L Normal 98-109 [facility] Comment on above: Performed By: #### C BC, CMP #### [facility] ([id number]) [address], [address] [place] [address] CO2 [Moles/Vol] 26 mmol/L Normal 22-32 [facility] Comment on above: Performed By: #### C BC, CMP #### [facility] ([id number]) [address] [address] [place] [address] Creatinine [Mass/Vol] 0.80 mg/dL Normal 0.40-1.00 [facility] Comment on above: Result Comment: METH OD TRACEABLE TO IDMS STANDARD Performed By: #### C BC, CMP #### [facility] ([id number]) [address], [address] [place] [address] GFR/1.73 sq M.predicted among non-blacks MDRD (S/P/Bld) [Vol rate/Area] 85 mL/min/{1.73_m2} Normal >59 [facility] Comment on above: Result Comment: Reported eGFR is based on the CKD-EPI 2020 equation that does not use a race coefficient. Performed By: #### C BC, CMP #### [facility] ([id number]) [address], [address] [place] [address] Glucose [Mass/Vol] 152 mg/dL High 65-99 [facility] Comment on above: Performed By: #### C BC, CMP #### [facility] ([id number]) [address], [address] [place] [address] Potassium [Moles/Vol] 4.5 mmol/L Normal 3.5-5.0 [facility] Comment on above: Performed By: #### C BC, CMP #### [facility] ([id number]) [address], [address] [place] [address] Protein [Mass/Vol] 7.2 g/dL Normal 6.0-8.0 [facility] Comment on above: Performed By: #### C BC, CMP #### [facility] ([id number]) [address], [address] [place] [address] Sodium [Moles/Vol] 136 mmol/L Normal 134-146 [facility] Comment on above: Performed By: #### C BC, CMP #### [facility] ([id number]) [address], [address] [place] [address] Urea nitrogen [Mass/Vol] 15 mg/dL Normal 5-23 [facility] Comment on above: Performed By: #### C BC, CMP #### [facility] ([id number]) [address], [address] [place] [address] HGB A1C (GLYCO-HGB)on 2022 Glucose [Mass/Vol] 143 mg/dL Normal [facility] Comment on above: Performed By: #### C BC, CMP #### [facility] ([id number]) [address], [address] [place] [address] HbA1c (Bld) [Mass fraction] 6.6 % High 4.4-5.6 [facility] Comment on above: Result Comment: NOTE ADA Guidelines Result HgbA1c Normal : less than 5.7 % Prediabetes : 5.7 % to 6.4 % Diabetes : > 6.4 % Use with caution in patients with abnormal hemoglobin variants as the half-life of red blood cells and in vivo glycation rates are affected. Performed By: #### C BC, CMP #### [facility] ([id number]) [address], [address] [place] [address] MICROALBUMIN - ALBUMIN:CREAT ININE URINE RATIOon 08-23-2023 ALB/CREAT RATIO 76.0 mg/g creat High 0.0-30.0 [facility] Comment on above: Performed By: #### M ALBU #### [facility] ([id number]) [address], [address] [place] [address] Albumin DL <= 20 mg/L (U) [Mass/Vol] 3.0 mg/dL High 0.0-1.9 [facility] Comment on above: Performed By: #### M ALBU #### [facility] ([id number]) [address], [address] [place] [address] URINE CREAT 39.48 mg/dL Normal [facility] Comment on above: Performed By: #### M ALBU #### [facility] ([id number]) [address] [address] LITHIUMon 12-22-2022 [place] (Eskalith(R)), Serum 0.8 mmol/L Normal 0.5-1.2 [facility] Comment on above: Result Comment: A co ncentration of 0.5-0.8 mmol/L is advised for long-term use; concentrations of up to 1.2 mmol/L may be necessary during acute treatment. Detection Limit = 0.1 <0.1 indicates None Detected Performed By: #### O BSCRN #### [facility] [address] [place] [address] Dr. Rosangela Smyth CREATININEon 12-21-2022 Creatinine [Mass/Vol] 0.93 mg/dL Normal 0.55-1.02 [facility] Comment on above: Performed By: #### L IPID, CMP #### [facility] [address] [address] [address] Rosangela Smyth EGFR-AF STATELESS >60 Normal >=60 [facility] Comment on above: Performed By: #### L IPID, CMP #### [facility] [address] [address] [address] Rosangela Smyth EGFR-NON AF STATELESS >60 Normal >=60 [facility] Comment on above: Performed By: #### L IPID, CMP #### [facility] [id number] Rosangela Smyth GLUCOSE BLOODon 12-21-2022 Glucose [Mass/Vol] 135 mg/dL Critically high 74-106 [facility] Comment on above: Performed By: #### L IPID, CMP #### [facility] [address] [address] [address] Rosangela Smyth LIPID PROFILEon 12-21-2022 CHOL-HDL RATIO NORM SEE BELOW Normal [facility] Comment on above: Result Comment: 3.3 - 4.4 LOW RISK 4.4 - 7.1 AVERAGE RISK 7.1 - 11.0 MODERATE RISK >11.0 HIGH RISK Performed By: #### L IPID, CMP #### [facility] [address] [address] [address] Rosangela Smyth Cholesterol [Mass/Vol] 194 mg/dL Normal <=200 [facility] Comment on above: Performed By: #### L IPID, CMP #### [facility] [address] [address] [address] Rosangela Smyth Cholesterol in HDL [Mass/Vol] 68 mg/dL Critically high 40-60 [facility] Comment on above: Performed By: #### L IPID, CMP #### [facility] [address] [address] [address] Rosangela Smyth Cholesterol in LDL [Mass/Vol] 106.8 mg/dL Normal [facility] Comment on above: Performed By: #### L IPID, CMP #### [facility] [id number] Rosangela Smyth Cholesterol.total/C holesterol in HDL [Mass ratio] 2.9 {ratio} Normal [facility] Comment on above: Performed By: #### L IPID, CMP #### [facility] [id number] Rosangela Smyth HDL NORMAL > or = 60 mg/dl - LO W CARDIOVASCULAR RISK <40 mg/dl - HIGH CARDIOVASCULAR RISK Normal [facility] Comment on above: Performed By: #### L IPID, CMP #### [facility] [address] [address] [address] Rosangela Smyth LDL CALC NORMAL SEE BELOW Normal [facility] Comment on above: Result Comment: <100 mg/dl OPTIMAL 100 - 129 mg/dl NEAR OR ABOVE OPTIMAL 130 - 159 mg/dl BORDERLINE HIGH 160 - 189 mg/dl HIGH >190 mg/dl VERY HIGH Performed By: #### L IPID, CMP #### [facility] [address] [place] [address] Dr. Rosangela Smyth Triglyceride [Mass/Vol] 96 mg/dL Normal <=150 [facility] Comment on above: Performed By: #### L IPID, CMP #### [facility] [address] [place] [address] Dr. Rosangela Smyth VLDL CALC 19.2 mg/dL Normal [facility] Comment on above: Performed By: #### L IPID, CMP #### [facility] [address] [address] [address] Rosangela Smyth TSHon 12-21-2022 TSH 2.649 uIU/mL Normal 0.358-3.740 [facility] Comment on above: Performed By: #### L IPID, CMP #### [facility] [address] [place] [address] Dr. Rosangela Smyth CBC AUTO DIFFon 09-25-2022 BASO # 0.0 103/ul Normal 0.0-0.1 [facility] Comment on above: Performed By: #### C BC #### [facility] [address] [address] [address] Rosangela Smyth Basophils/100 WBC (Bld) 0.0 % Critically low 0.2-2.0 [facility] Comment on above: Performed By: #### C BC #### [facility] [address] [place] [address] Dr. Rosangela Smyth EO # 0.0 103/ul Normal 0.0-0.7 [facility] Comment on above: Performed By: #### C BC #### [facility] [address] [address] [address] Rosangela Smyth Eosinophils/100 WBC (Bld) 0.0 % Critically low 0.9-7.0 [facility] Comment on above: Performed By: #### C BC #### [facility] [address] [place] [address] Dr. Rosangela Smyth Erythrocyte distribution width (RBC) [Ratio] 15.9 % Critically high 11.0-15.0 [facility] Comment on above: Performed By: #### C BC #### [facility] [address] [place] [address] Dr. Rosangela Symth Hematocrit (Bld) [Volume fraction] 25.7 % Critically low 36.0-48.0 [facility] Comment on above: Performed By: #### C BC #### [facility] [address] [place] [address] Dr. Rosangela Smyth Hemoglobin (Bld) [Mass/Vol] 8.3 g/dL Critically low 12.0-16.0 [facility] Comment on above: Performed By: #### C BC #### [facility] [address] [place] [address] Dr. Rosangela Smyth IG # 0.03 10e3/ul Normal 0.00-0.03 [facility] Comment on above: Performed By: #### C BC #### [facility] [address] [place] [address] Dr. Rosangela Smyth IG % 0.6 % Critically high 0.0-0.5 [facility] Comment on above: Performed By: #### C BC #### [facility] [address] [place] [address] Dr. Rosangela Smyth LYMPH # 0.7 103/ul Critically low 1.2-3.8 [facility] Comment on above: Performed By: #### C BC #### [facility] [address] [place] [address] Dr. Rosangela Smyth Lymphocytes/100 WBC (Bld) 13.8 % Critically low 20.5-60.0 [facility] Comment on above: Performed By: #### C BC #### [facility] [address] [place] [address] Dr. Rosangela Smyth MANUAL DIFF REQ NO Normal [facility] Comment on above: Performed By: #### C BC #### [facility] [address] [place] [address] Dr. Rosangela Smyth MCH (RBC) [Entitic mass] 31.1 pg Normal 26.7-34.0 [facility] Comment on above: Performed By: #### C BC #### [facility] [address] [place] [address] Dr. Rosangela Smyth MCHC (RBC) [Mass/Vol] 32.3 g/dL Normal 29.9-35.2 [facility] Comment on above: Performed By: #### C BC #### [facility] [address] [place] [address] Dr. Rosangela Smyth MCV (RBC) [Entitic vol] 96.3 fL Normal 81.0-99.0 [facility] Comment on above: Performed By: #### C BC #### [facility] [address] [place] [address] Dr. Rosangela Smyth MONO # 0.3 103/ul Normal 0.3-0.8 [facility] Comment on above: Performed By: #### C BC #### [facility] [address] [place] [address] Dr. Rosangela Smyth Monocytes/100 WBC (Bld) 4.9 % Normal 1.7-12.0 [facility] Comment on above: Performed By: #### C BC #### [facility] [address] [place] [address] Dr. Rosangela Smyth NEUT # 4.3 103/ul Normal 1.4-6.5 [facility] Comment on above: Performed By: #### C BC #### [facility] [address] [place] [address] Dr. Rosangela Smyth Neutrophils/100 WBC (Bld) 80.7 % Critically high 43.0-75.0 [facility] Comment on above: Performed By: #### C BC #### [facility] [address] [address] [address] Rosangela Smyth Platelet mean volume (Bld) [Entitic vol] 9.1 fL Critically low 9.5-13.5 [facility] Comment on above: Performed By: #### C BC #### [facility] [address] [address] [address] Rosangela Smyth PLT 234 103/ul Normal 150-450 [facility] Comment on above: Performed By: #### C BC #### [facility] [address] [address] [address] Rosangela Smyth RBC 2.67 106/ul Critically low 4.20-5.40 [facility] Comment on above: Performed By: #### C BC #### [facility] [address] [address] [address] Rosangela Smyth WBC 5.4 103/ul Normal 4.0-11.0 [facility] Comment on above: Performed By: #### C BC #### [facility] [address] [address] [address] Rosangela Smyth PROF CHEM 8 (BAS METB)on Anion gap [Moles/Vol] 11.7 mmol/L Normal [facility] Comment on above: Performed By: #### L IPID, CMP #### [facility] [address] [address] [address] Rosangela Smyth Calcium [Mass/Vol] 10.5 mg/dL Critically high 8.5-10.1 [facility] Comment on above: Performed By: #### L IPID, CMP #### [facility] [address] [address] [address] Rosangela Smyth Chloride [Moles/Vol] 114 mmol/L Critically high 98-107 [facility] Comment on above: Performed By: #### L IPID, CMP #### [facility] [address] [place] [address] Dr. Rosangela Smyth CO2 [Moles/Vol] 21.9 mmol/L Normal 21.0-32.0 [facility] Comment on above: Performed By: #### L IPID, CMP #### [facility] [address] [address] [address] Rosangela Smyth Creatinine [Mass/Vol] 0.91 mg/dL Normal 0.55-1.02 [facility] Comment on above: Performed By: #### L IPID, CMP #### [facility] [address] [address] [address] Rosangela Smyth EGFR-AF STATELESS >60 Normal >=60 [facility] Comment on above: Performed By: #### L IPID, CMP #### [facility] [address] [address] [address] Rosangela Smyth EGFR-NON AF STATELESS >60 Normal >=60 [facility] Comment on above: Performed By: #### L IPID, CMP #### [facility] [address] [address] [address] Rosangela Smyth Glucose [Mass/Vol] 108 mg/dL Critically high 74-106 [facility] Comment on above: Performed By: #### L IPID, CMP #### [facility] [address] [address] [address] Rosangela Smyth Potassium [Moles/Vol] 3.6 mmol/L Normal 3.5-5.1 [facility] Comment on above: Performed By: #### L IPID, CMP #### [facility] [address] [address] [address] Rosangela Smyth Sodium [Moles/Vol] 144 mmol/L Normal 136-145 [facility] Comment on above: Performed By: #### L IPID, CMP #### [facility] [address] [address] [address] Rosangela Smyth Urea nitrogen [Mass/Vol] 20.0 mg/dL Critically high 7.0-18.0 [facility] Comment on above: Performed By: #### L IPID, CMP #### [facility] [address] [address] [address] Rosangela Smyth Urea nitrogen/Creatinine [Mass ratio] 22.0 mg/mg Normal [facility] Comment on above: Performed By: #### L IPID, CMP #### [facility] [address] [place] [address] Dr. Rosangela Smyth CBC AUTO DIFFon 09-24-2022 BASO # 0.0 103/ul Normal 0.0-0.1 [facility] Comment on above: Performed By: #### C BC #### [facility] [address] [place] [address] Dr. Rosangela Smyth Basophils/100 WBC (Bld) 0.0 % Critically low 0.2-2.0 [facility] Comment on above: Performed By: #### C BC #### [facility] [address] [place] [address] Dr. Rosangela Smyth EO # 0.0 103/ul Normal 0.0-0.7 [facility] Comment on above: Performed By: #### C BC #### [facility] [address] [place] [address] Dr. Rosangela Smyth Eosinophils/100 WBC (Bld) 0.0 % Critically low 0.9-7.0 [facility] Comment on above: Performed By: #### C BC #### [facility] [address] [place] [address] Dr. Rosangela Smyth Erythrocyte distribution width (RBC) [Ratio] 15.7 % Critically high 11.0-15.0 [facility] Comment on above: Performed By: #### C BC #### [facility] [address] [place] [address] Dr. Rosangela Smyth Hematocrit (Bld) [Volume fraction] 30.3 % Critically low 36.0-48.0 [facility] Comment on above: Performed By: #### C BC #### [facility] [address] [place] [address] Dr. Rosangela Smyth Hemoglobin (Bld) [Mass/Vol] 9.5 g/dL Critically low 12.0-16.0 [facility] Comment on above: Performed By: #### C BC #### [facility] [address] [place] [address] Dr. Rosangela Smyth IG # 0.02 10e3/ul Normal 0.00-0.03 [facility] Comment on above: Performed By: #### C BC #### [facility] [address] [place] [address] Dr. Rosangela Smyth IG % 0.6 % Critically high 0.0-0.5 [facility] Comment on above: Performed By: #### C BC #### [facility] [address] [place] [address] Dr. Rosangela Smyth LYMPH # 0.6 103/ul Critically low 1.2-3.8 [facility] Comment on above: Performed By: #### C BC #### [facility] [address] [place] [address] Dr. Rosangela Smyth Lymphocytes/100 WBC (Bld) 17.7 % Critically low 20.5-60.0 [facility] Comment on above: Performed By: #### C BC #### [facility] [address] [place] [address] Dr. Rosangela Smyth MANUAL DIFF REQ NO Normal [facility] Comment on above: Performed By: #### C BC #### [facility] [address] [place] [address] Dr. Rosangela Smyth MCH (RBC) [Entitic mass] 30.6 pg Normal 26.7-34.0 [facility] Comment on above: Performed By: #### C BC #### [facility] [address] [place] [address] Dr. Rosangela Smyth MCHC (RBC) [Mass/Vol] 31.4 g/dL Normal 29.9-35.2 [facility] Comment on above: Performed By: #### C BC #### [facility] [address] [place] [address] Dr. Rosangela Smyth MCV (RBC) [Entitic vol] 97.7 fL Normal 81.0-99.0 [facility] Comment on above: Performed By: #### C BC #### [facility] [address] [place] [address] Dr. Rosangela Smyth MONO # 0.1 103/ul Critically low 0.3-0.8 [facility] Comment on above: Performed By: #### C BC #### [facility] [address] [place] [address] Dr. Rosangela Smyth Monocytes/100 WBC (Bld) 2.5 % Normal 1.7-12.0 [facility] Comment on above: Performed By: #### C BC #### [facility] [address] [address] [address] Rosangela Smyth NEUT # 2.5 103/ul Normal 1.4-6.5 [facility] Comment on above: Performed By: #### C BC #### [facility] [address] [place] [address] Dr. Rosangela Smyth Neutrophils/100 WBC (Bld) 79.2 % Critically high 43.0-75.0 [facility] Comment on above: Performed By: #### C BC #### [facility] [address] [place] [address] Dr. Rosangela Smyth Platelet mean volume (Bld) [Entitic vol] 8.9 fL Critically low 9.5-13.5 [facility] Comment on above: Performed By: #### C BC #### [facility] [address] [place] [address] Dr. Rosangela Smyth PLT 218 103/ul Normal 150-450 [facility] Comment on above: Performed By: #### C BC #### [facility] [address] [place] [address] Dr. Rosangela Smyth RBC 3.10 106/ul Critically low 4.20-5.40 [facility] Comment on above: Performed By: #### C BC #### [facility] [address] [place] [address] Dr. Rosangela Smyth WBC 3.2 103/ul Critically low 4.0-11.0 [facility] Comment on above: Performed By: #### C BC #### [facility] [address] [place] [address] Dr. Rosangela Smyth POINT OF CARE GLUCOSEon 09-06 Glucose [Mass/Vol] 291 mg/dL Critically high 74-106 [facility] Comment on above: Performed By: #### P OCGLUC #### [facility] [address] [address] [address] Rosangela Smyth PROF CHEM 8 (BAS METB)on Anion gap [Moles/Vol] 14.6 mmol/L Normal [facility] Comment on above: Performed By: #### L ACT #### [facility] [address] [address] [address] Rosangela Smyth Calcium [Mass/Vol] 10.7 mg/dL Critically high 8.5-10.1 [facility] Comment on above: Performed By: #### L ACT #### [facility] [address] [place] [address] Dr. Rosangela Smyth Chloride [Moles/Vol] 113 mmol/L Critically high 98-107 [facility] Comment on above: Performed By: #### L ACT #### [facility] [address] [address] [address] Rosangela Smyth CO2 [Moles/Vol] 20.7 mmol/L Critically low 21.0-32.0 [facility] Comment on above: Performed By: #### L ACT #### [facility] [address] [place] [address] Dr. Rosangela Smyth Creatinine [Mass/Vol] 0.86 mg/dL Normal 0.55-1.02 [facility] Comment on above: Performed By: #### L ACT #### [facility] [address] [address] [address] Rosangela Smyth EGFR-AF STATELESS >60 Normal >=60 [facility] Comment on above: Performed By: #### L ACT #### [facility] [address] [address] [address] Rosangela Smyth EGFR-NON AF STATELESS >60 Normal >=60 [facility] Comment on above: Performed By: #### L ACT #### [facility] [address] [place] [address] Dr. Rosangela Smyth Glucose [Mass/Vol] 279 mg/dL Critically high 74-106 [facility] Comment on above: Performed By: #### L ACT #### [facility] [address] [address] [address] Rosangela Smyth Potassium [Moles/Vol] 4.3 mmol/L Normal 3.5-5.1 [facility] Comment on above: Performed By: #### L ACT #### [facility] [address] [address] [address] Rosangela Smyth Sodium [Moles/Vol] 144 mmol/L Normal 136-145 [facility] Comment on above: Performed By: #### L ACT #### [facility] [address] [address] [address] Rosangela Smyth Urea nitrogen [Mass/Vol] 14.0 mg/dL Normal 7.0-18.0 [facility] Comment on above: Performed By: #### L ACT #### [facility] [address] [address] [address] Rosangela Smyth Urea nitrogen/Creatinine [Mass ratio] 16.3 mg/mg Normal [facility] Comment on above: Performed By: #### L ACT #### [facility] [address] [address] [address] Rosangela Smyth CARDIAC CRYSTAL ADMITon 023 CK [Catalytic activity/Vol] 22 U/L Critically low 26-192 [facility] Comment on above: Performed By: #### L IPID, CMP #### [facility] [address] [address] [address] Rosangela Smyth CK.MB [Mass/Vol] ng/mL Normal <=3.60 [facility] Comment on above: Performed By: #### L IPID, CMP #### [facility] [address] [address] [address] Rosangela Smyth HSTROP 5.7 pg/mL Normal 4.0-51.3 [facility] Comment on above: Result Comment: CUT- OFF POINTS HAVE BEEN ESTABLISHED BASED ON THE FOURTH UNIVERSAL DEFINITIONS OF MYOCARDIAL INFARCTION. THE UPPER REFERENCE LIMIT (URL) OF TROPONIN, DEFINED THE 99TH PERCENTILE OF cTnI DISTRIBUTION IN A REFERENCE POPULATION, HAS BEEN CONFIRMED THE DECISION THRESHOLD FOR LA DIAGNOSIS. Performed By: #### L IPID, CMP #### [facility] [address] [address] [address] Rosangela Smyth JOVAN 40 ng/mL Normal 9-82 [facility] Comment on above: Performed By: #### L IPID, CMP #### [facility] [address] [address] [address] Rosangela Smyth CBC AUTO DIFFon 09-23-2022 BASO # 0.0 103/ul Normal 0.0-0.1 [facility] Comment on above: Performed By: #### L ACT #### [facility] [address] [address] [address] Rosangela Smyth Basophils/100 WBC (Bld) 0.0 % Critically low 0.2-2.0 [facility] Comment on above: Performed By: #### L ACT #### [facility] [address] [place] [address] Dr. Rosangela Smyth EO # 0.1 103/ul Normal 0.0-0.7 [facility] Comment on above: Performed By: #### L ACT #### [facility] [address] [address] [address] Rosangela Smyth Eosinophils/100 WBC (Bld) 1.8 % Normal 0.9-7.0 [facility] Comment on above: Performed By: #### L ACT #### [facility] [address] [address] [address] Rosangela Smyth Erythrocyte distribution width (RBC) [Ratio] 15.6 % Critically high 11.0-15.0 [facility] Comment on above: Performed By: #### L ACT #### [facility] [address] [address] [address] Rosangela Smyth Hematocrit (Bld) [Volume fraction] 26.0 % Critically low 36.0-48.0 [facility] Comment on above: Performed By: #### L ACT #### [facility] Laboratory [address] [address] [address] Rosangela Smyth Hemoglobin (Bld) [Mass/Vol] 8.5 g/dL Critically low 12.0-16.0 [facility] Comment on above: Performed By: #### L ACT #### [facility] [address] [address] [address] Rosangela Smyth IG # 0.02 10e3/ul Normal 0.00-0.03 [facility] Comment on above: Performed By: #### L ACT #### [facility] [address] [address] [address] Rosangela Smyth IG % 0.5 % Normal 0.0-0.5 [facility] Comment on above: Performed By: #### L ACT #### [facility] [address] [address] [address] Rosangela Smyth LYMPH # 0.9 103/ul Critically low 1.2-3.8 [facility] Comment on above: Performed By: #### L ACT #### [facility] [address] [place] [address] Dr. Rosangela Smyth Lymphocytes/100 WBC (Bld) 24.0 % Normal 20.5-60.0 [facility] Comment on above: Performed By: #### L ACT #### [facility] [address] [place] [address] Dr. Rosangela Smyth MANUAL DIFF REQ NO Normal [facility] Comment on above: Performed By: #### L ACT #### [facility] [address] [place] [address] Dr. Rosangela Smyth MCH (RBC) [Entitic mass] 31.3 pg Normal 26.7-34.0 [facility] Comment on above: Performed By: #### L ACT #### [facility] [address] [address] [address] Rosangela Smyth MCHC (RBC) [Mass/Vol] 32.7 g/dL Normal 29.9-35.2 [facility] Comment on above: Performed By: #### L ACT #### [facility] [address] [place] [address] Dr. Rosangela Smyth MCV (RBC) [Entitic vol] 95.6 fL Normal 81.0-99.0 [facility] Comment on above: Performed By: #### L ACT #### [facility] [address] [address] [address] Rosangela Smyth MONO # 0.2 103/ul Critically low 0.3-0.8 [facility] Comment on above: Performed By: #### L ACT #### [facility] [address] [address] [address] Rosangela Smyth Monocytes/100 WBC (Bld) 4.0 % Normal 1.7-12.0 [facility] Comment on above: Performed By: #### L ACT #### [facility] [address] [address] [address] Rosangela Smyth NEUT # 2.6 103/ul Normal 1.4-6.5 [facility] Comment on above: Performed By: #### L ACT #### [facility] [address] [address] [address] Rosangela Smyth Neutrophils/100 WBC (Bld) 69.7 % Normal 43.0-75.0 [facility] Comment on above: Performed By: #### L ACT #### [facility] [address] [address] [address] Rosangela Smyth Platelet mean volume (Bld) [Entitic vol] 9.1 fL Critically low 9.5-13.5 [facility] Comment on above: Performed By: #### L ACT #### [facility] [address] [address] [address] Rosangela Smyth PLT 244 103/ul Normal 150-450 [facility] Comment on above: Performed By: #### L ACT #### [facility] [address] [address] [address] Rosangela Smyth RBC 2.72 106/ul Critically low 4.20-5.40 [facility] Comment on above: Performed By: #### L ACT #### [facility] [address] [address] [address] Rosangela Smyth WBC 3.8 103/ul Critically low 4.0-11.0 [facility] Comment on above: Performed By: #### L ACT #### [facility] [address] [address] [address] Rosangela Smyth BASO # 0.0 103/ul Normal 0.0-0.1 [facility] Comment on above: Performed By: #### L IPID, CMP #### [facility] [address] [place] [address] Dr. Rosangela Smyth Basophils/100 WBC (Bld) 0.3 % Normal 0.2-2.0 [facility] Comment on above: Performed By: #### L IPID, CMP #### [facility] [address] [place] [address] Dr. Rosangela Smyth EO # 0.0 103/ul Normal 0.0-0.7 [facility] Comment on above: Performed By: #### L IPID, CMP #### [facility] [address] [place] [address] Dr. Rosangela Smyth Eosinophils/100 WBC (Bld) 1.1 % Normal 0.9-7.0 [facility] Comment on above: Performed By: #### L IPID, CMP #### [facility] [address] [place] [address] Dr. Rosangela Smyth Erythrocyte distribution width (RBC) [Ratio] 15.5 % Critically high 11.0-15.0 [facility] Comment on above: Performed By: #### L IPID, CMP #### [facility] [address] [place] [address] Dr. Rosangela Smyth Hematocrit (Bld) [Volume fraction] 31.9 % Critically low 36.0-48.0 [facility] Comment on above: Performed By: #### L IPID, CMP #### [facility] [address] [place] [address] Dr. Rosangela Smyth Hemoglobin (Bld) [Mass/Vol] 10.4 g/dL Critically low 12.0-16.0 [facility] Comment on above: Performed By: #### L IPID, CMP #### [facility] [address] [place] [address] Dr. Rosangela Smyth IG # 0.03 10e3/ul Normal 0.00-0.03 [facility] Comment on above: Performed By: #### L IPID, CMP #### [facility] [address] [address] [address] Rosangela Smyth IG % 0.8 % Critically high 0.0-0.5 [facility] Comment on above: Performed By: #### L IPID, CMP #### [facility] [address] [address] [address] Rosangela Smyth LYMPH # 1.0 103/ul Critically low 1.2-3.8 [facility] Comment on above: Performed By: #### L IPID, CMP #### [facility] [address] [address] [address] Rosangela Smyth Lymphocytes/100 WBC (Bld) 26.4 % Normal 20.5-60.0 [facility] Comment on above: Performed By: #### L IPID, CMP #### [facility] [address] [address] [address] Rosangela Smyth MANUAL DIFF REQ NO Normal [facility] Comment on above: Performed By: #### L IPID, CMP #### [facility] [address] [address] [address] Rosangela Smyth MCH (RBC) [Entitic mass] 30.7 pg Normal 26.7-34.0 [facility] Comment on above: Performed By: #### L IPID, CMP #### [facility] [address] [address] [address] Rosangela Smyth MCHC (RBC) [Mass/Vol] 32.6 g/dL Normal 29.9-35.2 [facility] Comment on above: Performed By: #### L IPID, CMP #### [facility] [address] [place] [address] Dr. Rosangela Smyth MCV (RBC) [Entitic vol] 94.1 fL Normal 81.0-99.0 [facility] Comment on above: Performed By: #### L IPID, CMP #### [facility] [address] [place] [address] Dr. Rosangela Smyth MONO # 0.1 103/ul Critically low 0.3-0.8 [facility] Comment on above: Performed By: #### L IPID, CMP #### [facility] [address] [place] [address] Dr. Rosangela Smyth Monocytes/100 WBC (Bld) 3.2 % Normal 1.7-12.0 [facility] Comment on above: Performed By: #### L IPID, CMP #### [facility] [address] [place] [address] Dr. Rosangela Smyth NEUT # 2.5 103/ul Normal 1.4-6.5 [facility] Comment on above: Performed By: #### L IPID, CMP #### [facility] [address] [place] [address] Dr. Rosangela Smyth Neutrophils/100 WBC (Bld) 68.2 % Normal 43.0-75.0 [facility] Comment on above: Performed By: #### L IPID, CMP #### [facility] [address] [place] [address] Dr. Rosangela Smyth Platelet mean volume (Bld) [Entitic vol] 8.8 fL Critically low 9.5-13.5 [facility] Comment on above: Performed By: #### L IPID, CMP #### [facility] [address] [place] [address] Dr. Rosangela Smyth PLT 242 103/ul Normal 150-450 [facility] Comment on above: Performed By: #### L IPID, CMP #### [facility] [address] [place] [address] Dr. Rosangela Smyth RBC 3.39 106/ul Critically low 4.20-5.40 [facility] Comment on above: Performed By: #### L IPID, CMP #### [facility] [address] [place] [address] Dr. Rosangela Smyth WBC 3.7 103/ul Critically low 4.0-11.0 [facility] Comment on above: Performed By: #### L IPID, CMP #### [facility] [address] [place] [address] Dr. Rosangela Smyth CTA CHEST WO W [...] KWAN MADRID Date: 2022-09-23 01:51 Normal [facility] CULTURE BLOODon 09-23-2022 Microscopic examination of blood, culture Culture Observations: NO GROWTH AT 5 DAYS. Normal [facility] Comment on above: Performed By: #### L IPID, CMP #### [facility] [address] [address] [address] Rosangela Smyth Microscopic examination of blood, culture Culture Observations: NO GROWTH AT 5 DAYS. Normal [facility] Comment on above: Performed By: #### L IPID, CMP #### [facility] [address] [address] [address] Rosangela Smyth Cov[facility]-19 PCR [facility]on 09-06 SARS-CoV-2 (COVID-19) RNA RICH+probe Ql (Unsp spec) Detected Abnormal NOT DETECTED [facility] Comment on above: Result Comment: This test is not yet approved or cleared by the [place] FDA. When there are no FDA-approved or cleared tests available, and other criteria are met, FDA can make tests available under an emergency access mechanism called an Emergency Use Authorization (EUA). The EUA for this test is supported by the [place] of Health and Human Service's declaration that [...] used). Performed By: #### O BSCRN #### [facility] [address] [place] [address] Dr. Rosangela Smyth D-DIMERon 09-23-2022 D-DIMER 0.78 mg/L FEU Critically high <=0.59 [facility] Comment on above: Performed By: #### O BSCRN #### [facility] [address] [place] [address] Dr. Rosangela Smyth D-DIMER COMMENTS SEE BELOW Normal [facility] Comment on above: Result Comment: Incr eases [...] hospitalization. Performed By: #### O BSCRN #### [facility] [address] [place] [address] Dr. Rosangela Smyth ER URINE PROFILEon 3 Bilirubin Ql (U) Negative Normal NEGATIVE [facility] Comment on above: Performed By: #### L IPID, CMP #### [facility] [address] [place] [address] Dr. Rosangela Smyth Clarity (U) CLEAR Normal CLEAR [facility] Comment on above: Performed By: #### L IPID, CMP #### [facility] [address] [address] [address] Rosangela Smyth Color (U) LT. YELLOW Normal YELLOW [facility] Comment on above: Performed By: #### L IPID, CMP #### [facility] [address] [address] [address] Rosangela ANAND A micrscopic examination will be performed if indicated. Normal [facility] Comment on above: Performed By: #### L IPID, CMP #### [facility] [address] [address] [address] Rosangela Smyth Glucose Ql (U) 250 mg/dl Abnormal NEGATIVE [facility] Comment on above: Performed By: #### L IPID, CMP #### [facility] [address] [place] [address] Dr. Rosangela Smyth Hemoglobin Ql (U) Negative Normal NEGATIVE [facility] Comment on above: Performed By: #### L IPID, CMP #### [facility] [address] [place] [address] Dr. Rosangela Smyth Ketones Ql (U) Negative Normal NEGATIVE [facility] Comment on above: Performed By: #### L IPID, CMP #### [facility] [address] [place] [address] Dr. Rosangela Smyth LEUKOCYTES Negative Normal NEGATIVE [facility] Comment on above: Performed By: #### L IPID, CMP #### [facility] [address] [place] [address] Dr. Rosangela Smyth Nitrite Ql (U) Negative Normal NEGATIVE [facility] Comment on above: Performed By: #### L IPID, CMP #### [facility] [address] [address] [address] Rosangela Smyth pH (U) 6.0 [pH] Normal 5-9 [facility] Comment on above: Performed By: #### L IPID, CMP #### [facility] [address] [place] [address] Dr. Rosangela Smyth SPEC GRAVITY 1.015 Normal 1.005-<=1.02 5 [facility] Comment on above: Performed By: #### L IPID, CMP #### [facility] [address] [address] [address] Rosangela Smyth UA PROTEIN TRACE Normal NEGATIVE/ TRACE [facility] Comment on above: Performed By: #### L IPID, CMP #### [facility] [address] [address] [address] Rosangela Smyth UR MICRO IND NOT INDICATED Normal [facility] Comment on above: Performed By: #### L IPID, CMP #### [facility] [address] [address] [address] Rosangela Smyth Urobilinogen Qn (U) 0.2 {Estevan'U}/dL Normal 0.2 - 1. 0 [facility] Comment on above: Performed By: #### L IPID, CMP #### [facility] [address] [place] [address] Dr. Rosangela Smyth INFLUENZA A AND B AGon 09-23 INFLUENZA A AG Negative Normal NEGATIVE SEE COMMENT [facility] Comment on above: Performed By: #### L IPID, CMP #### [facility] [address] [place] [address] Dr. Rosangela Smyth INFLUENZA B AG Negative Normal NEGATIVE SEE COMMENT [facility] Comment on above: Performed By: #### L IPID, CMP #### [facility] [address] [place] [address] Dr. Rosangela Smyth LACTATE/LACTIC ACIDon 2022 Lactate [Moles/Vol] 1.4 mmol/L Normal 0.4-1.9 [facility] Comment on above: Performed By: #### O BSCRN #### [facility] [address] [place] [address] Dr. Rosangela Smyth Lactate [Moles/Vol] 0.9 mmol/L Normal 0.4-1.9 [facility] Comment on above: Performed By: #### C BC #### [facility] [address] [place] [address] Dr. Rosangela Smyth Lactate [Moles/Vol] 1.4 mmol/L Normal 0.4-1.9 [facility] Comment on above: Performed By: #### L ACT #### [facility] [address] [place] [address] Dr. Rosangela Smyth POINT OF CARE GLUCOSEon 09-06 Glucose [Mass/Vol] 421 mg/dL Critically high 74-106 [facility] Comment on above: Performed By: #### O BSCRN #### [facility] [address] [place] [address] Dr. Rosangela Smyth PROF 14(COMP METB)on 023 Albumin [Mass/Vol] 2.7 g/dL Critically low 3.4-5.0 [facility] Comment on above: Performed By: #### O BSCRN #### [facility] [address] [place] [address] Dr. Rosangela Smyth Albumin/Globulin [Mass ratio] 0.7 {ratio} Normal [facility] Comment on above: Performed By: #### O BSCRN #### [facility] [address] [place] [address] Dr. Rosangela Smyth ALP [Catalytic activity/Vol] 76 U/L Normal 46-116 [facility] Comment on above: Performed By: #### O BSCRN #### [facility] [address] [place] [address] Dr. Rosangela Smyth ALT [Catalytic activity/Vol] 19 U/L Normal 14-59 [facility] Comment on above: Performed By: #### O BSCRN #### [facility] [address] [place] [address] Dr. Rosangela Smyth Anion gap [Moles/Vol] 11.9 mmol/L Normal [facility] Comment on above: Performed By: #### O BSCRN #### [facility] [address] [place] [address] Dr. Rosangela Smyth AST [Catalytic activity/Vol] 20 U/L Normal 15-37 [facility] Comment on above: Performed By: #### O BSCRN #### [facility] [address] [place] [address] Dr. Rosangela Smyth Bilirubin [Mass/Vol] 0.3 mg/dL Normal 0.2-1.0 [facility] Comment on above: Performed By: #### O BSCRN #### [facility] [address] [place] [address] Dr. Rosangela Smyth Calcium [Mass/Vol] 10.2 mg/dL Critically high 8.5-10.1 [facility] Comment on above: Performed By: #### O BSCRN #### [facility] [address] [place] [address] Dr. Rosangela Smyth Chloride [Moles/Vol] 103 mmol/L Normal 98-107 [facility] Comment on above: Performed By: #### O BSCRN #### [facility] [address] [place] [address] Dr. Rosangela Smyth CO2 [Moles/Vol] 23.7 mmol/L Normal 21.0-32.0 [facility] Comment on above: Performed By: #### O BSCRN #### [facility] [address] [place] [address] Dr. Rosangela Smyth Creatinine [Mass/Vol] 0.90 mg/dL Normal 0.55-1.02 [facility] Comment on above: Performed By: #### O BSCRN #### [facility] [address] [place] [address] Dr. Rosangela Smyth EGFR-AF STATELESS >60 Normal >=60 [facility] Comment on above: Performed By: #### O BSCRN #### [facility] [address] [place] [address] Dr. Rosangela Smyth EGFR-NON AF STATELESS >60 Normal >=60 [facility] Comment on above: Performed By: #### O BSCRN #### [facility] [address] [place] [address] Dr. Rosangela Smyth Globulin (S) [Mass/Vol] 3.9 g/dL Normal [facility] Comment on above: Performed By: #### O BSCRN #### [facility] [address] [place] [address] Dr. Rosangela Smyth Glucose [Mass/Vol] 237 mg/dL Critically high 74-106 [facility] Comment on above: Performed By: #### O BSCRN #### [facility] [address] [place] [address] Dr. Rosangela Smyth Potassium [Moles/Vol] 3.6 mmol/L Normal 3.5-5.1 [facility] Comment on above: Performed By: #### O BSCRN #### [facility] [address] [place] [address] Dr. Rosangela Smyth Protein [Mass/Vol] 6.6 g/dL Normal 6.4-8.2 [facility] Comment on above: Performed By: #### O BSCRN #### [facility] [address] [place] [address] Dr. Rosangela Smyth Sodium [Moles/Vol] 135 mmol/L Critically low 136-145 [facility] Comment on above: Performed By: #### O BSCRN #### [facility] [address] [place] [address] Dr. Rosangela Smyth Urea nitrogen [Mass/Vol] 11.0 mg/dL Normal 7.0-18.0 [facility] Comment on above: Performed By: #### O BSCRN #### [facility] [address] [place] [address] Dr. Rosangela Smyth Urea nitrogen/Creatinine [Mass ratio] 12.2 mg/mg Normal [facility] Comment on above: Performed By: #### O BSCRN #### [facility] [address] [place] [address] Dr. Rosangela Smyth PROF CHEM 8 (BAS METB)on Anion gap [Moles/Vol] 10.7 mmol/L Normal [facility] Comment on above: Performed By: #### L IPID, CMP #### [facility] [address] [place] [address] Dr. Rosangela Smyth Calcium [Mass/Vol] 10.3 mg/dL Critically high 8.5-10.1 [facility] Comment on above: Performed By: #### L IPID, CMP #### [facility] [address] [address] [address] Rosangela Smyth Chloride [Moles/Vol] 97 mmol/L Critically low 98-107 [facility] Comment on above: Performed By: #### L IPID, CMP #### [facility] [address] [address] [address] Rosangela Smyth CO2 [Moles/Vol] 26.1 mmol/L Normal 21.0-32.0 [facility] Comment on above: Performed By: #### L IPID, CMP #### [facility] [address] [address] [address] Rosangela Smyth Creatinine [Mass/Vol] 1.05 mg/dL Critically high 0.55-1.02 [facility] Comment on above: Performed By: #### L IPID, CMP #### [facility] [address] [address] [address] Rosangela Smyth EGFR-AF STATELESS >60 Normal >=60 [facility] Comment on above: Performed By: #### L IPID, CMP #### [facility] [address] [address] [address] Rosangela Smyth EGFR-NON AF STATELESS 54 mL/min/1.73m2 Critically low >=60 [facility] Comment on above: Performed By: #### L IPID, CMP #### [facility] [address] [address] [address] Rosangela Smyth Glucose [Mass/Vol] 255 mg/dL Critically high 74-106 [facility] Comment on above: Performed By: #### L IPID, CMP #### [facility] [address] [address] [address] Rosangela Smyth Potassium [Moles/Vol] 3.8 mmol/L Normal 3.5-5.1 [facility] Comment on above: Performed By: #### L IPID, CMP #### [facility] [address] [address] [address] Rosangela Smyth Sodium [Moles/Vol] 130 mmol/L Critically low 136-145 [facility] Comment on above: Performed By: #### L IPID, CMP #### [facility] [address] [place], [place] [address] Dr. Rosangela Smyth Urea nitrogen [Mass/Vol] 18.0 mg/dL Normal 7.0-18.0 [facility] Comment on above: Performed By: #### L IPID, CMP #### [facility] [address] [place], [place] [address] Dr. Rosangela Smyth Urea nitrogen/Creatinine [Mass ratio] 17.1 mg/mg Normal [facility] Comment on above: Performed By: #### L IPID, CMP #### [facility] [address] [place], [place] [address] Dr. Rosangela Smyth XR CHEST 1 Von [...] JUSTINA CURRAN Date: 2022-09-23 16:33 Normal [facility] XR CHEST 1 V XR CHEST [...] by: RAUL MARVIN Date: 2022-09-23 00:05 Normal [facility] CARDIAC CRYSTAL ADMITon 023 CK [Catalytic activity/Vol] 44 U/L Normal 26-192 [facility] Comment on above: Performed By: #### C MP, CMADM #### [facility] [address] [place] [address] Dr. Rosangela Smyth CK.MB [Mass/Vol] ng/mL Normal <=3.60 [facility] Comment on above: Performed By: #### C NERIS, CMADM #### [facility] [address] [place] [address] Dr. Rosangela Smyth HSTROP 6.3 pg/mL Normal 4.0-51.3 [facility] Comment on above: Result Comment: CUT- OFF POINTS HAVE BEEN ESTABLISHED BASED ON THE FOURTH UNIVERSAL DEFINITIONS OF MYOCARDIAL INFARCTION. THE UPPER REFERENCE LIMIT (URL) OF TROPONIN, DEFINED THE 99TH PERCENTILE OF cTnI DISTRIBUTION IN A REFERENCE POPULATION, HAS BEEN CONFIRMED THE DECISION THRESHOLD FOR LA DIAGNOSIS. Performed By: #### C NERIS, CMADM #### [facility] [address] [place] [address] Dr. Rosangela Smyth JOVAN 39 ng/mL Normal 9-82 [facility] Comment on above: Performed By: #### C NERIS, CMADM #### [facility] [address] [place] [address] Dr. Rosangela Smyth CBC AUTO DIFFon 09-12-2022 BASO # 0.0 103/ul Normal 0.0-0.1 [facility] Comment on above: Performed By: #### L ACT #### [facility] [address] [place] [address] Dr. Rosangela Smyth Basophils/100 WBC (Bld) 0.3 % Normal 0.2-2.0 [facility] Comment on above: Performed By: #### L ACT #### [facility] [address] [place] [address] Dr. Rosangela Smyth EO # 0.1 103/ul Normal 0.0-0.7 [facility] Comment on above: Performed By: #### L ACT #### [facility] [address] [place] [address] Dr. Rosangela Smyth Eosinophils/100 WBC (Bld) 1.4 % Normal 0.9-7.0 [facility] Comment on above: Performed By: #### L ACT #### [facility] [address] [place] [address] Dr. Rosangela Smyth Erythrocyte distribution width (RBC) [Ratio] 16.1 % Critically high 11.0-15.0 [facility] Comment on above: Performed By: #### L ACT #### [facility] [address] [address] [address] Rosangela Smyth Hematocrit (Bld) [Volume fraction] 27.6 % Critically low 36.0-48.0 [facility] Comment on above: Performed By: #### L ACT #### [facility] [address] [place] [address] Dr. Rosangela Smyth Hemoglobin (Bld) [Mass/Vol] 9.2 g/dL Critically low 12.0-16.0 [facility] Comment on above: Performed By: #### L ACT #### [facility] [address] [place] [address] Dr. Rosangela Smyth IG # 0.01 10e3/ul Normal 0.00-0.03 [facility] Comment on above: Performed By: #### L ACT #### [facility] [address] [place] [address] Dr. Rosangela Smyth IG % 0.3 % Normal 0.0-0.5 [facility] Comment on above: Performed By: #### L ACT #### [facility] [address] [place] [address] Dr. Rosangela Smyth LYMPH # 0.6 103/ul Critically low 1.2-3.8 [facility] Comment on above: Performed By: #### L ACT #### [facility] [address] [place] [address] Dr. Rosangela Smyth Lymphocytes/100 WBC (Bld) 17.1 % Critically low 20.5-60.0 [facility] Comment on above: Performed By: #### L ACT #### [facility] [address] [place] [address] Dr. Rosangela Smyth MANUAL DIFF REQ NO Normal [facility] Comment on above: Performed By: #### L ACT #### [facility] [address] [address] [address] Rosangela Smyth MCH (RBC) [Entitic mass] 30.6 pg Normal 26.7-34.0 [facility] Comment on above: Performed By: #### L ACT #### [facility] [address] [place] [address] Dr. Rosangela Smyth MCHC (RBC) [Mass/Vol] 33.3 g/dL Normal 29.9-35.2 [facility] Comment on above: Performed By: #### L ACT #### [facility] [address] [place] [address] Dr. Rosangela Smyth MCV (RBC) [Entitic vol] 91.7 fL Normal 81.0-99.0 [facility] Comment on above: Performed By: #### L ACT #### [facility] [address] [place] [address] Dr. Rosangela Smyth MONO # 0.4 103/ul Normal 0.3-0.8 [facility] Comment on above: Performed By: #### L ACT #### [facility] [address] [place] [address] Dr. Rosangela Smyth Monocytes/100 WBC (Bld) 10.0 % Normal 1.7-12.0 [facility] Comment on above: Performed By: #### L ACT #### [facility] [address] [place] [address] Dr. Rosangela Smyth NEUT # 2.6 103/ul Normal 1.4-6.5 [facility] Comment on above: Performed By: #### L ACT #### [facility] [address] [place] [address] Dr. Rosangela Smyth Neutrophils/100 WBC (Bld) 70.9 % Normal 43.0-75.0 [facility] Comment on above: Performed By: #### L ACT #### [facility] [address] [place] [address] Dr. Rosangela Smyth Platelet mean volume (Bld) [Entitic vol] 8.2 fL Critically low 9.5-13.5 [facility] Comment on above: Performed By: #### L ACT #### [facility] [address] [address] [address] Rosangela Smyth PLT 277 103/ul Normal 150-450 [facility] Comment on above: Performed By: #### L ACT #### [facility] [address] [address] [address] Rosangela Smyth RBC 3.01 106/ul Critically low 4.20-5.40 [facility] Comment on above: Performed By: #### L ACT #### [facility] [address] [address] [address] Rosangela Smyth WBC 3.7 103/ul Critically low 4.0-11.0 [facility] Comment on above: Performed By: #### L ACT #### [facility] [address] [place] [address] Dr. Rosangela Smyth GROUP A STREP CULTUREon S. pyogenes Ag Ql (Unsp spec) Culture Observations: NEGATIVE FOR GROUP A STREPTOCOCCUS. Normal [facility] Comment on above: Performed By: #### L ACT #### [facility] [address] [place] [address] Dr. Rosangela Smyth PROF 14(COMP METB)on 023 Albumin [Mass/Vol] 3.8 g/dL Normal 3.4-5.0 [facility] Comment on above: Performed By: #### C VIRAL CORDON #### [facility] [address] [place] [address] Dr. Rosangela Smyth Albumin/Globulin [Mass ratio] 1.1 {ratio} Normal [facility] Comment on above: Performed By: #### C YULIANA CORDONDM #### [facility] [address] [place] [address] Dr. Rosangela Smyth ALP [Catalytic activity/Vol] 88 U/L Normal 46-116 [facility] Comment on above: Performed By: #### C YULIANA CORDONDM #### [facility] [address] [place] [address] Dr. Rosangela Smyth ALT [Catalytic activity/Vol] 31 U/L Normal 14-59 [facility] Comment on above: Performed By: #### C NERIS CMADM #### [facility] [address] [address] [address] Rosangela Smyth Anion gap [Moles/Vol] 10.2 mmol/L Normal [facility] Comment on above: Performed By: #### C MP, CMADM #### [facility] [address] [address] [address] Rosangela Smyth AST [Catalytic activity/Vol] 24 U/L Normal 15-37 [facility] Comment on above: Performed By: #### C MP, CMADM #### [facility] [address] [address] [address] Rosangela Smyth Bilirubin [Mass/Vol] 0.3 mg/dL Normal 0.2-1.0 [facility] Comment on above: Performed By: #### C MP, CMADM #### [facility] [address] [address] [address] Rosangela Smyth Calcium [Mass/Vol] 11.1 mg/dL Critically high 8.5-10.1 [facility] Comment on above: Performed By: #### C MP, CMADM #### [facility] [address] [address] [address] Rosangela Smyth Chloride [Moles/Vol] 101 mmol/L Normal 98-107 [facility] Comment on above: Performed By: #### C MP, CMADM #### [facility] [address] [address] [address] Rosangela Smyth CO2 [Moles/Vol] 26.4 mmol/L Normal 21.0-32.0 [facility] Comment on above: Performed By: #### C MP, CMADM #### [facility] [address] [address] [address] Rosangela Smyth Creatinine [Mass/Vol] 1.15 mg/dL Critically high 0.55-1.02 [facility] Comment on above: Performed By: #### C MP, CMADM #### [facility] [address] [address] [address] Rosangela Smyth EGFR-AF STATELESS 59 mL/min/1.73m2 Critically low >=60 [facility] Comment on above: Performed By: #### C MP, CMADM #### [facility] [address] [address] [address] Rosangela Smyth EGFR-NON AF STATELESS 48 mL/min/1.73m2 Critically low >=60 [facility] Comment on above: Performed By: #### C MP, CMADM #### [facility] [address] [address] [address] Rosangela Smyth Globulin (S) [Mass/Vol] 3.6 g/dL Normal [facility] Comment on above: Performed By: #### C MP, CMADM #### [facility] [address] [address] [address] Rosangela Smyth Glucose [Mass/Vol] 174 mg/dL Critically high 74-106 [facility] Comment on above: Performed By: #### C MP, CMADM #### [facility] [address] [address] [address] Rosangela Smyth Potassium [Moles/Vol] 4.6 mmol/L Normal 3.5-5.1 [facility] Comment on above: Performed By: #### C MP, CMADM #### [facility] [address] [place] [address] Dr. Rosangela Smyth Protein [Mass/Vol] 7.4 g/dL Normal 6.4-8.2 [facility] Comment on above: Performed By: #### C MP, CMADM #### [facility] [address] [address] [address] Rosangela Smyth Sodium [Moles/Vol] 133 mmol/L Critically low 136-145 [facility] Comment on above: Performed By: #### C MP, CMADM #### [facility] [address] [place] [address] Dr. Rosangela Smyth Urea nitrogen [Mass/Vol] 14.0 mg/dL Normal 7.0-18.0 [facility] Comment on above: Performed By: #### C MP, CMADM #### [facility] [address] [place] [address] Dr. Rosangela Smyth Urea nitrogen/Creatinine [Mass ratio] 12.2 mg/mg Normal [facility] Comment on above: Performed By: #### C MP, CMADM #### [facility] [address] [place], [place] [address] Dr. Rosangela Smyth STREPT SCREENon 09-12-2022 STREP SCREEN A Negative Normal NEGATIVE [facility] Comment on above: Performed By: #### L ACT #### [facility] [address] [place], [place] [address] Dr. Rosangela Smyth XR CHEST 1 Von [...] by: LINNETTE AVENDANO Date: 2022-09-12 13:23 Normal [facility] Progress Noteson 09-03-2022 [employer] Authentication Interface Message Text EMERGENCY TRIAGE, TREAT AND TRANSPORT (ET3) DOCUMENTATION OF TELEHEALTH VISIT Date / Time: 03/18/2022 / 15:00 Name: Kaya Schilling : 1965 SSN: (Not on file) EMS Agency: [facility] [x] Verbal consent obtained [] Implied [...] Amylase [Catalytic activity/Vol] 49 U/L Normal 25-115 [facility] Comment on above: Performed By: #### C BC #### [facility] [address] [address] [address] Rosangela Smyth CBC AUTO DIFFon 07-08-2022 BASO # 0.0 103/ul Normal 0.0-0.1 [facility] Comment on above: Performed By: #### O BSCRN #### [facility] [address] [address] [address] Rosangela Smyth Basophils/100 WBC (Bld) 0.4 % Normal 0.2-2.0 [facility] Comment on above: Performed By: #### O BSCRN #### [facility] [address] [place] [address] Dr. Rosangela Smyth EO # 0.2 103/ul Normal 0.0-0.7 [facility] Comment on above: Performed By: #### O BSCRN #### [facility] [address] [place] [address] Dr. Rosangela Smyth Eosinophils/100 WBC (Bld) 4.4 % Normal 0.9-7.0 [facility] Comment on above: Performed By: #### O BSCRN #### [facility] [address] [place] [address] Dr. Rosangela Smyth Erythrocyte distribution width (RBC) [Ratio] 17.9 % Critically high 11.0-15.0 [facility] Comment on above: Performed By: #### O BSCRN #### [facility] [address] [place] [address] Dr. Rosangela Smyth Hematocrit (Bld) [Volume fraction] 30.4 % Critically low 36.0-48.0 [facility] Comment on above: Performed By: #### O BSCRN #### [facility] [address] [place] [address] Dr. Rosangela Smyth Hemoglobin (Bld) [Mass/Vol] 9.6 g/dL Critically low 12.0-16.0 [facility] Comment on above: Performed By: #### O BSCRN #### [facility] [address] [place] [address] Dr. Rosangela Smyth IG # 0.02 10e3/ul Normal 0.00-0.03 [facility] Comment on above: Performed By: #### O BSCRN #### [facility] [address] [place] [address] Dr. Rosangela Smyth IG % 0.4 % Normal 0.0-0.5 [facility] Comment on above: Performed By: #### O BSCRN #### [facility] [address] [place] [address] Dr. Rosangela Smyth LYMPH # 1.4 103/ul Normal 1.2-3.8 [facility] Comment on above: Performed By: #### O BSCRN #### [facility] [address] [place] [address] Dr. Rosangela Smyth Lymphocytes/100 WBC (Bld) 28.6 % Normal 20.5-60.0 [facility] Comment on above: Performed By: #### O BSCRN #### [facility] [address] [place] [address] Dr. Rosangela Smyth MANUAL DIFF REQ NO Normal [facility] Comment on above: Performed By: #### O BSCRN #### [facility] [address] [place] [address] Dr. Rosangela Smyth MCH (RBC) [Entitic mass] 30.8 pg Normal 26.7-34.0 [facility] Comment on above: Performed By: #### O BSCRN #### [facility] [address] [place] [address] Dr. Rosangela Smyth MCHC (RBC) [Mass/Vol] 31.6 g/dL Normal 29.9-35.2 [facility] Comment on above: Performed By: #### O BSCRN #### [facility] [address] [place] [address] Dr. Rosangela Smyth MCV (RBC) [Entitic vol] 97.4 fL Normal 81.0-99.0 [facility] Comment on above: Performed By: #### O BSCRN #### [facility] [address] [place] [address] Dr. Rosangela Smyth MONO # 0.3 103/ul Normal 0.3-0.8 [facility] Comment on above: Performed By: #### O BSCRN #### [facility] [address] [place] [address] Dr. Rosangela Smyth Monocytes/100 WBC (Bld) 6.6 % Normal 1.7-12.0 [facility] Comment on above: Performed By: #### O BSCRN #### [facility] [address] [place] [address] Dr. Rosangela Smyth NEUT # 3.0 103/ul Normal 1.4-6.5 [facility] Comment on above: Performed By: #### O BSCRN #### [facility] [address] [address] [address] Rosangela Smyth Neutrophils/100 WBC (Bld) 59.6 % Normal 43.0-75.0 [facility] Comment on above: Performed By: #### O BSCRN #### [facility] [address] [address] [address] Rosangela Smyth Platelet mean volume (Bld) [Entitic vol] 8.6 fL Critically low 9.5-13.5 [facility] Comment on above: Performed By: #### O BSCRN #### [facility] [address] [address] [address] Rosangela Smyth PLT 351 103/ul Normal 150-450 [facility] Comment on above: Performed By: #### O BSCRN #### [facility] [address] [address] [address] Rosangela Smyth RBC 3.12 106/ul Critically low 4.20-5.40 [facility] Comment on above: Performed By: #### O BSCRN #### [facility] [address] [address] [address] Rosangela Smyth WBC 5.0 103/ul Normal 4.0-11.0 [facility] Comment on above: Performed By: #### O BSCRN #### [facility] [address] [address] [address] Rosangela Smyth Covid-19 PCR ([facility])on SARS-CoV-2 (COVID-19) RNA RICH+probe Ql (Unsp spec) Not detected Normal NOT DETECTED [facility] Comment on above: Result Comment: When [...] for this test is supported by the Research Physicist of Health and Human Service's declaration that [...] Performed By: #### L IPID, CMP #### [facility] [address] [place] [address] Dr. Rosangela Smyth ER URINE PROFILEon 2 Bilirubin Ql (U) Negative Normal NEGATIVE [facility] Comment on above: Performed By: #### L IPID, CMP #### [facility] [address] [place] [address] Dr. Rosangela Smyht Clarity (U) CLEAR Normal CLEAR [facility] Comment on above: Performed By: #### L IPID, CMP #### [facility] [address] [place] [address] Dr. Rosangela Smyth Color (U) LT. YELLOW Normal YELLOW [facility] Comment on above: Performed By: #### L IPID, CMP #### [facility] [address] [place] [address] Dr. Rosangela ANAND A micrscopic examination will be performed if indicated. Normal [facility] Comment on above: Performed By: #### L IPID, CMP #### [facility] [address] [place] [address] Dr. Rosangela Smyth Glucose Ql (U) Negative Normal NEGATIVE [facility] Comment on above: Performed By: #### L IPID, CMP #### [facility] [address] [place] [address] Dr. Rosangela Smyth Hemoglobin Ql (U) Negative Normal NEGATIVE [facility] Comment on above: Performed By: #### L IPID, CMP #### [facility] [address] [place] [address] Dr. Rosangela Smyth Ketones Ql (U) Negative Normal NEGATIVE [facility] Comment on above: Performed By: #### L IPID, CMP #### [facility] [address] [place] [address] Dr. Rosangela Smyth LEUKOCYTES Negative Normal NEGATIVE [facility] Comment on above: Performed By: #### L IPID, CMP #### [facility] [address] [place] [address] Dr. Rosangela Smyth Nitrite Ql (U) Negative Normal NEGATIVE [facility] Comment on above: Performed By: #### L IPID, CMP #### [facility] [address] [place] [address] Dr. Rosangela Smyth pH (U) 6.0 [pH] Normal 5-9 [facility] Comment on above: Performed By: #### L IPID, CMP #### [facility] [address] [place] [address] Dr. Rosangela Smyth SPEC GRAVITY 1.010 Normal 1.005-<=1.02 5 [facility] Comment on above: Performed By: #### L IPID, CMP #### [facility] [address] [place] [address] Dr. Rosangela Smyth UA PROTEIN Negative Normal NEGATIVE/ TRACE [facility] Comment on above: Performed By: #### L IPID, CMP #### [facility] [address] [place] [address] Dr. Rosangela Smyth UR MICRO IND NOT INDICATED Normal [facility] Comment on above: Performed By: #### L IPID, CMP #### [facility] [address] [place] [address] Dr. Rosangela Smyth Urobilinogen Qn (U) 0.2 {Estevan'U}/dL Normal 0.2 - 1. 0 [facility] Comment on above: Performed By: #### L IPID, CMP #### [facility] [address] [place] [address] Dr. Rosangela Smyth LIPASEon 07-08-2022 Lipase [Catalytic activity/Vol] 89.0 U/L Normal 73.0-393.0 [facility] Comment on above: Performed By: #### L ACT #### [facility] [address] [place] [address] Dr. Rosangela Smyth PROF 14(COMP METB)on 022 Albumin [Mass/Vol] 3.9 g/dL Normal 3.4-5.0 [facility] Comment on above: Performed By: #### C BC #### [facility] [address] [place] [address] Dr. Rosangela Smyth Albumin/Globulin [Mass ratio] 1.1 {ratio} Normal [facility] Comment on above: Performed By: #### C BC #### [facility] [address] [place] [address] Dr. Rosangela Smyth ALP [Catalytic activity/Vol] 86 U/L Normal 46-116 [facility] Comment on above: Performed By: #### C BC #### [facility] [address] [place] [address] Dr. Rosangela Smyth ALT [Catalytic activity/Vol] 22 U/L Normal 14-59 [facility] Comment on above: Performed By: #### C BC #### [facility] [address] [place] [address] Dr. Rosangela Smyth Anion gap [Moles/Vol] 10.1 mmol/L Normal [facility] Comment on above: Performed By: #### C BC #### [facility] [address] [place] [address] Dr. Rosangela Smyth AST [Catalytic activity/Vol] 15 U/L Normal 15-37 [facility] Comment on above: Performed By: #### C BC #### [facility] [address] [place] [address] Dr. Rosangela Smyth Bilirubin [Mass/Vol] 0.3 mg/dL Normal 0.2-1.0 [facility] Comment on above: Performed By: #### C BC #### [facility] [address] [place] [address] Dr. Rosangela Smyth Calcium [Mass/Vol] 11.8 mg/dL Critically high 8.5-10.1 [facility] Comment on above: Performed By: #### C BC #### [facility] [address] [place] [address] Dr. Rosangela Smyth Chloride [Moles/Vol] 104 mmol/L Normal 98-107 [facility] Comment on above: Performed By: #### C BC #### [facility] [address] [place] [address] Dr. Rosangela Smyth CO2 [Moles/Vol] 28.4 mmol/L Normal 21.0-32.0 [facility] Comment on above: Performed By: #### C BC #### [facility] [address] [address] [address] Rosangela Smyth Creatinine [Mass/Vol] 0.84 mg/dL Normal 0.55-1.02 [facility] Comment on above: Performed By: #### C BC #### [facility] [address] [place] [address] Dr. Rosangela Smyth EGFR-AF STATELESS >60 Normal >=60 [facility] Comment on above: Performed By: #### C BC #### [facility] [address] [place] [address] Dr. Rosangela Smyth EGFR-NON AF STATELESS >60 Normal >=60 [facility] Comment on above: Performed By: #### C BC #### [facility] [address] [place] [address] Dr. Rosangela Smyth Globulin (S) [Mass/Vol] 3.7 g/dL Normal [facility] Comment on above: Performed By: #### C BC #### [facility] [address] [place] [address] Dr. Rosangela Smyth Glucose [Mass/Vol] 82 mg/dL Normal 74-106 [facility] Comment on above: Performed By: #### C BC #### [facility] [address] [place] [address] Dr. Rosangela Smyth Potassium [Moles/Vol] 4.5 mmol/L Normal 3.5-5.1 [facility] Comment on above: Performed By: #### C BC #### [facility] [address] [place] [address] Dr. Rosangela Smyth Protein [Mass/Vol] 7.6 g/dL Normal 6.4-8.2 [facility] Comment on above: Performed By: #### C BC #### [facility] [address] [address] [address] Rosangela Smyth Sodium [Moles/Vol] 138 mmol/L Normal 136-145 [facility] Comment on above: Performed By: #### C BC #### [facility] [address] [place], [place] [address] Dr. Rosangela Smyth Urea nitrogen [Mass/Vol] 10.0 mg/dL Normal 7.0-18.0 [facility] Comment on above: Performed By: #### C BC #### [facility] [address] [address] [address] Rosangela Smyth Urea nitrogen/Creatinine [Mass ratio] 11.9 mg/mg Normal [facility] Comment on above: Performed By: #### C BC #### [facility] [address] [address] [address] Rosangela Smyth TROPONIN, HIGH SENSITIVITYon 07-08-2022 HSTROP 7.7 pg/mL Normal 4.0-51.3 [facility] Comment on above: Result Comment: CUT- OFF POINTS HAVE BEEN ESTABLISHED BASED ON THE FOURTH UNIVERSAL DEFINITIONS OF MYOCARDIAL INFARCTION. THE UPPER REFERENCE LIMIT (URL) OF TROPONIN, DEFINED THE 99TH PERCENTILE OF cTnI DISTRIBUTION IN A REFERENCE POPULATION, HAS BEEN CONFIRMED THE DECISION THRESHOLD FOR LA DIAGNOSIS. Performed By: #### L ACT #### [facility] [address] [address] [address] Rosangela Smyth CBC W Auto Differential pane l (Bld)on 05-22-2022 Abs Immature Gran <0.10 k/uL [facility] Basophils (Bld) [#/Vol] 0.03 10*3/uL <0.11 k/uL [facility] Basophils/100 WBC (Bld) 0.5 % [facility] Differential cell count method Nom (Bld) Auto [facility] Eosinophils (Bld) [#/Vol] 0.26 10*3/uL <0.46 k/uL [facility] Eosinophils/100 WBC (Bld) 4.5 % [facility] Erythrocyte distribution width (RBC) [Ratio] 18.1 % High 11.5 - 15.0 % [facility] Hematocrit (Bld) [Volume fraction] 30.1 % Low 36.0 - 46.0 % [facility] Hemoglobin (Bld) [Mass/Vol] 9.3 g/dL Low 11.5 - 15.5 g/dL [facility] Immature Gran % 0.2 % [facility] Lymphocytes (Bld) [#/Vol] 1.40 10*3/uL 1.00 - 4.00 k/uL [facility] Lymphocytes/100 WBC (Bld) 24.1 % [facility] MCH (RBC) [Entitic mass] 29.5 pg 26.0 - 34.0 pg [facility] MCHC (RBC) [Mass/Vol] 30.9 g/dL 30.5 - 36.0 g/dL [facility] MCV (RBC) [Entitic vol] 95.6 fL 80.0 - 100.0 fL [facility] Monocytes (Bld) [#/Vol] 0.36 10*3/uL <0.87 k/uL [facility] Monocytes/100 WBC (Bld) 6.2 % [facility] Neutrophils (Bld) [#/Vol] 3.76 10*3/uL 1.45 - 7.50 k/uL [facility] Neutrophils/100 WBC (Bld) 64.5 % [facility] Nucleated RBC (Bld) [#/Vol] <0.01 k/uL [facility] Nucleated RBC/100 WBC (Bld) [Ratio] 0.0 /100 WBC [facility] Platelet mean volume (Bld) [Entitic vol] 8.6 fL Low 9.0 - 12.7 fL [facility] Platelets (Bld) [#/Vol] 335 10*3/uL 150 - 400 k/uL [facility] RBC (Bld) [#/Vol] 3.15 10*6/uL Low 3.90 - 5.2 0 m/uL [facility] WBC (Bld) [#/Vol] 5.82 10*3/uL 3.70 - 11. 00 k/uL [facility] LD LACTATE DEHYDROon LDH [Catalytic activity/Vol] 149 U/L 135 - 214 U/L [facility] RETIC COUNTon 05-22-2022 Reticulocytes (Bld) [#/Vol] 0.40723 10*3/uL 0.018 - 0.100 M/uL [facility] Reticulocytes (Bld) [#/Vol]o n 05-22-2022 Reticulocytes/100 RBC (Bld) 1.9 % 0.4 - 2.0 % [facility] LITHIUMon 05-20-2022 [place] ([place]skalith(R)), Serum 0.9 mmol/L Normal 0.5-1.2 [facility] Comment on above: Result Comment: Plas ma concentration of 0.5 - 0.8 mmol/L are advised for long-term use; concentrations of up to 1.2 mmol/L may be necessary during acute treatment. Detection Limit = 0.1 <0.1 indicates None Detected Performed By: #### L ACT #### [facility] [address] [place] [address] Dr. Rosangela Smyth CREATININEon 05-19-2022 Creatinine [Mass/Vol] 0.84 mg/dL Normal 0.55-1.02 [facility] Comment on above: Performed By: #### O BSCRN #### [facility] [address] [place] [address] Dr. Rosangela Smyth EGFR-AF STATELESS >60 Normal >=60 [facility] Comment on above: Performed By: #### O BSCRN #### [facility] [address] [place] [address] Dr. Rosangela Smyth EGFR-NON AF STATELESS >60 Normal >=60 [facility] Comment on above: Performed By: #### O BSCRN #### [facility] [address] [place] [address] Dr. Rosangela Smyth TSHon 05-19-2022 TSH 2.337 uIU/mL Normal 0.358-3.740 [facility] Comment on above: Performed By: #### O BSCRN #### [facility] [address] [place] [address] Dr. Rosangela Smyth CBC AUTO DIFFon 05-16-2022 BASO # 0.0 103/ul Normal 0.0-0.1 [facility] Comment on above: Performed By: #### L IPID, CMP #### [facility] [address] [place] [address] Dr. Rosangela Smyth Basophils/100 WBC (Bld) 0.4 % Normal 0.2-2.0 [facility] Comment on above: Performed By: #### L IPID, CMP #### [facility] [address] [place] [address] Dr. Rosangela Smyth EO # 0.3 103/ul Normal 0.0-0.7 [facility] Comment on above: Performed By: #### L IPID, CMP #### [facility] [address] [place] [address] Dr. Rosangela Smyth Eosinophils/100 WBC (Bld) 5.3 % Normal 0.9-7.0 [facility] Comment on above: Performed By: #### L IPID, CMP #### [facility] [address] [place] [address] Dr. Rosangela Smyth Erythrocyte distribution width (RBC) [Ratio] 18.5 % Critically high 11.0-15.0 [facility] Comment on above: Performed By: #### L IPID, CMP #### [facility] [address] [place] [address] Dr. Rosangela Smyth Hematocrit (Bld) [Volume fraction] 30.9 % Critically low 36.0-48.0 [facility] Comment on above: Performed By: #### L IPID, CMP #### [facility] [address] [place] [address] Dr. Rosangela Smyth Hemoglobin (Bld) [Mass/Vol] 9.7 g/dL Critically low 12.0-16.0 [facility] Comment on above: Performed By: #### L IPID, CMP #### [facility] [address] [place] [address] Dr. Rosangela Smyth IG # 0.01 10e3/ul Normal 0.00-0.03 [facility] Comment on above: Performed By: #### L IPID, CMP #### [facility] [address] [place] [address] Dr. Rosangela Smyth IG % 0.2 % Normal 0.0-0.5 [facility] Comment on above: Performed By: #### L IPID, CMP #### [facility] [address] [address] [address] Rosangela Smyth LYMPH # 1.7 103/ul Normal 1.2-3.8 [facility] Comment on above: Performed By: #### L IPID, CMP #### [facility] [address] [address] [address] Rosangela Smyth Lymphocytes/100 WBC (Bld) 31.6 % Normal 20.5-60.0 [facility] Comment on above: Performed By: #### L IPID, CMP #### [facility] [address] [address] [address] Rosangela Smyth MANUAL DIFF REQ NO Normal [facility] Comment on above: Performed By: #### L IPID, CMP #### [facility] [address] [place] [address] Dr. Rosangela Smyth MCH (RBC) [Entitic mass] 30.1 pg Normal 26.7-34.0 [facility] Comment on above: Performed By: #### L IPID, CMP #### [facility] [address] [place] [address] Dr. Rosangela Smyth MCHC (RBC) [Mass/Vol] 31.4 g/dL Normal 29.9-35.2 [facility] Comment on above: Performed By: #### L IPID, CMP #### [facility] [address] [place] [address] Dr. Rosangela Smyth MCV (RBC) [Entitic vol] 96.0 fL Normal 81.0-99.0 [facility] Comment on above: Performed By: #### L IPID, CMP #### [facility] [address] [address] [address] Rosangela Smyth MONO # 0.5 103/ul Normal 0.3-0.8 [facility] Comment on above: Performed By: #### L IPID, CMP #### [facility] [address] [place] [address] Dr. Rosangela Smyth Monocytes/100 WBC (Bld) 8.7 % Normal 1.7-12.0 [facility] Comment on above: Performed By: #### L IPID, CMP #### [facility] [address] [address] [address] Rosangela Smyth NEUT # 3.0 103/ul Normal 1.4-6.5 [facility] Comment on above: Performed By: #### L IPID, CMP #### [facility] [address] [place] [address] Dr. Rosangela Smyth Neutrophils/100 WBC (Bld) 53.8 % Normal 43.0-75.0 [facility] Comment on above: Performed By: #### L IPID, CMP #### [facility] [address] [place] [address] Dr. Rosangela Smyth Platelet mean volume (Bld) [Entitic vol] 8.2 fL Critically low 9.5-13.5 [facility] Comment on above: Performed By: #### L IPID, CMP #### [facility] [address] [place] [address] Dr. Rosangela Smyth PLT 361 103/ul Normal 150-450 [facility] Comment on above: Performed By: #### L IPID, CMP #### [facility] [address] [place] [address] Dr. Rosangela Smyth RBC 3.22 106/ul Critically low 4.20-5.40 [facility] Comment on above: Performed By: #### L IPID, CMP #### [facility] [address] [place] [address] Dr. Rosangela Smyth WBC 5.5 103/ul Normal 4.0-11.0 [facility] Comment on above: Performed By: #### L IPID, CMP #### [facility] [address] [place] [address] Dr. Rosangela Smyth OCC BLD IMMUNO SCREENon 05-07 OCCULT BLOOD Negative Normal NEGATIVE [facility] Comment on above: Performed By: #### O BSCRN #### [facility] [address] [place] [address] Dr. Rosangela Smyth PROF CHEM 8 (BAS METB)on Anion gap [Moles/Vol] 13.7 mmol/L Normal [facility] Comment on above: Performed By: #### O BSCRN #### [facility] [address] [place] [address] Dr. Rosangela Smyth Calcium [Mass/Vol] 11.2 mg/dL Critically high 8.5-10.1 [facility] Comment on above: Performed By: #### O BSCRN #### [facility] [address] [place] [address] Dr. Rosangela Smyth Chloride [Moles/Vol] 105 mmol/L Normal 98-107 [facility] Comment on above: Performed By: #### O BSCRN #### [facility] [address] [place] [address] Dr. Rosanegla Smyth CO2 [Moles/Vol] 24.4 mmol/L Normal 21.0-32.0 [facility] Comment on above: Performed By: #### O BSCRN #### [facility] [address] [place] [address] Dr. Rosangela Smyth Creatinine [Mass/Vol] 0.95 mg/dL Normal 0.55-1.02 [facility] Comment on above: Performed By: #### O BSCRN #### [facility] [address] [place] [address] Dr. Rosangela Smyth EGFR-AF STATELESS >60 Normal >=60 [facility] Comment on above: Performed By: #### O BSCRN #### [facility] [address] [place] [address] Dr. Rosangela Smyth EGFR-NON AF STATELESS =60 Normal >=60 [facility] Comment on above: Performed By: #### O BSCRN #### [facility] [address] [place] [address] Dr. Rosangela Smyth Glucose [Mass/Vol] 91 mg/dL Normal 74-106 [facility] Comment on above: Performed By: #### O BSCRN #### [facility] [address] [place] [address] Dr. Rosangela Smyth Potassium [Moles/Vol] 4.1 mmol/L Normal 3.5-5.1 [facility] Comment on above: Performed By: #### O BSCRN #### [facility] [address] [place] [address] Dr. Rosangela Smyth Sodium [Moles/Vol] 139 mmol/L Normal 136-145 [facility] Comment on above: Performed By: #### O BSCRN #### [facility] [address] [place] [address] Dr. Rosangela Smyth Urea nitrogen [Mass/Vol] 11.0 mg/dL Normal 7.0-18.0 [facility] Comment on above: Performed By: #### O BSCRN #### [facility] [address] [place] [address] Dr. Rosangela Smyth Urea nitrogen/Creatinine [Mass ratio] 11.6 mg/mg Normal [facility] Comment on above: Performed By: #### O BSCRN #### [facility] [address] [place] [address] Dr. Rosangela Smyth CBC AUTO DIFFon 05-04-2022 BASO # 0.0 103/ul Normal 0.0-0.1 [facility] Comment on above: Performed By: #### L IPID, CMP #### [facility] [address] [place] [address] Dr. Rosangela Smyth Basophils/100 WBC (Bld) 0.4 % Normal 0.2-2.0 [facility] Comment on above: Performed By: #### L IPID, CMP #### [facility] [address] [place] [address] Dr. Rosangela Smyth EO # 0.4 103/ul Normal 0.0-0.7 [facility] Comment on above: Performed By: #### L IPID, CMP #### [facility] [address] [place] [address] Dr. Rosangela Smyth Eosinophils/100 WBC (Bld) 6.6 % Normal 0.9-7.0 [facility] Comment on above: Performed By: #### L IPID, CMP #### [facility] [address] [place] [address] Dr. Rosangela Smyth Erythrocyte distribution width (RBC) [Ratio] 19.3 % Critically high 11.0-15.0 [facility] Comment on above: Performed By: #### L IPID, CMP #### [facility] [address] [place] [address] Dr. Rosangela Smyth Hematocrit (Bld) [Volume fraction] 29.8 % Critically low 36.0-48.0 [facility] Comment on above: Performed By: #### L IPID, CMP #### [facility] [address] [place] [address] Dr. Rosangela Smyth Hemoglobin (Bld) [Mass/Vol] 9.3 g/dL Critically low 12.0-16.0 [facility] Comment on above: Performed By: #### L IPID, CMP #### [facility] [address] [place] [address] Dr. Rosangela Smyth IG # 0.01 10e3/ul Normal 0.00-0.03 [facility] Comment on above: Performed By: #### L IPID, CMP #### [facility] [address] [place] [address] Dr. Rosangela Smyth IG % 0.2 % Normal 0.0-0.5 [facility] Comment on above: Performed By: #### L IPID, CMP #### [facility] [address] [place] [address] Dr. Rosangela Smyth LYMPH # 1.3 103/ul Normal 1.2-3.8 [facility] Comment on above: Performed By: #### L IPID, CMP #### [facility] [address] [place] [address] Dr. Rosangela Smyth Lymphocytes/100 WBC (Bld) 23.5 % Normal 20.5-60.0 [facility] Comment on above: Performed By: #### L IPID, CMP #### [facility] [address] [place] [address] Dr. Rosangela Smyth MANUAL DIFF REQ NO Normal [facility] Comment on above: Performed By: #### L IPID, CMP #### [facility] [address] [address] [address] Rosangela Smyth MCH (RBC) [Entitic mass] 29.3 pg Normal 26.7-34.0 [facility] Comment on above: Performed By: #### L IPID, CMP #### [facility] [address] [place] [address] Dr. Rosangela Smyth MCHC (RBC) [Mass/Vol] 31.2 g/dL Normal 29.9-35.2 [facility] Comment on above: Performed By: #### L IPID, CMP #### [facility] [address] [place] [address] Dr. Rosangela Smyth MCV (RBC) [Entitic vol] 94.0 fL Normal 81.0-99.0 [facility] Comment on above: Performed By: #### L IPID, CMP #### [facility] [address] [place] [address] Dr. Rosangela Smyth MONO # 0.4 103/ul Normal 0.3-0.8 [facility] Comment on above: Performed By: #### L IPID, CMP #### [facility] [address] [place] [address] Dr. Rosangela Smyth Monocytes/100 WBC (Bld) 6.6 % Normal 1.7-12.0 [facility] Comment on above: Performed By: #### L IPID, CMP #### [facility] [address] [place] [address] Dr. Rosangela Smyth NEUT # 3.5 103/ul Normal 1.4-6.5 [facility] Comment on above: Performed By: #### L IPID, CMP #### [facility] [address] [place] [address] Dr. Rosangela Smyth Neutrophils/100 WBC (Bld) 62.7 % Normal 43.0-75.0 [facility] Comment on above: Performed By: #### L IPID, CMP #### [facility] [address] [place] [address] Dr. Rosangela Smyth Platelet mean volume (Bld) [Entitic vol] 8.2 fL Critically low 9.5-13.5 [facility] Comment on above: Performed By: #### L IPID, CMP #### [facility] [address] [place] [address] Dr. Rosangela Smyth PLT 337 103/ul Normal 150-450 [facility] Comment on above: Performed By: #### L IPID, CMP #### [facility] [address] [address] [address] Rosangela Smyth RBC 3.17 106/ul Critically low 4.20-5.40 [facility] Comment on above: Performed By: #### L IPID, CMP #### [facility] [address] [address] [address] Rosangela Smyth WBC 5.6 103/ul Normal 4.0-11.0 [facility] Comment on above: Performed By: #### L IPID, CMP #### [facility] [address] [place] [address] Dr. Rosangela Smyth TSHon 05-04-2022 TSH 1.227 uIU/mL Normal 0.358-3.740 [facility] Comment on above: Performed By: #### L IPID, CMP #### [facility] [address] [place] [address] Dr. Rosangela Smyth GLYCOHEMOGLOBIN A1Con 2021 ADA RECOMMENDATION SEE BELOW Normal [facility] Comment on above: Result Comment: ADA RECOMMENDED LIMIT 4.0 - 6.0 ADA THERAPEUTIC TARGET < 7.0 ACTION SUGGESTED > 7.0 Performed By: #### L IPID, CMP #### [facility] [address] [place] [address] Dr. Rosangela Smyth Glucose [Mass/Vol] 154 mg/dL Normal [facility] Comment on above: Performed By: #### L IPID, CMP #### [facility] [address] [place] [address] Dr. Rosangela Smyth HbA1c (Bld) [Mass fraction] 7.0 % Critically high 4.5-6.2 [facility] Comment on above: Performed By: #### L IPID, CMP #### [facility] [address] [address] [address] Rosangela Smyth LIPID PROFILEon 04-03-2022 CHOL-HDL RATIO NORM SEE BELOW Normal [facility] Comment on above: Result Comment: 3.3 - 4.4 LOW RISK 4.4 - 7.1 AVERAGE RISK 7.1 - 11.0 MODERATE RISK >11.0 HIGH RISK Performed By: #### L IPID, CMP #### [facility] [address] [address] [address] Rosangela Smyth Cholesterol [Mass/Vol] 147 mg/dL Normal <=200 [facility] Comment on above: Performed By: #### L IPID, CMP #### [facility] [address] [address] [address] Rosangela Smyth Cholesterol in HDL [Mass/Vol] 64 mg/dL Critically high 40-60 [facility] Comment on above: Performed By: #### L IPID, CMP #### [facility] [address] [address] [address] Rosangela Smyth Cholesterol in LDL [Mass/Vol] 70.8 mg/dL Normal [facility] Comment on above: Performed By: #### L IPID, CMP #### [facility] [address] [address] [address] Rosangela Smyth Cholesterol.total/C holesterol in HDL [Mass ratio] 2.3 {ratio} Normal [facility] Comment on above: Performed By: #### L IPID, CMP #### [facility] [address] [address] [address] Rosangela Smyth HDL NORMAL > or = 60 mg/dl - LO W CARDIOVASCULAR RISK <40 mg/dl - HIGH CARDIOVASCULAR RISK Normal [facility] Comment on above: Performed By: #### L IPID, CMP #### [facility] [address] [address] [address] Rosangela Smyth LDL CALC NORMAL SEE BELOW Normal [facility] Comment on above: Result Comment: <100 mg/dl OPTIMAL 100 - 129 mg/dl NEAR OR ABOVE OPTIMAL 130 - 159 mg/dl BORDERLINE HIGH 160 - 189 mg/dl HIGH >190 mg/dl VERY HIGH Performed By: #### L IPID, CMP #### [facility] [address] [address] [address] Rosangela Smyth Triglyceride [Mass/Vol] 61 mg/dL Normal <=150 [facility] Comment on above: Performed By: #### L IPID, CMP #### [facility] [address] [address] [address] Rosangela Smyth VLDL CALC 12.2 mg/dL Normal [facility] Comment on above: Performed By: #### L IPID, CMP #### [facility] [address] [address] [address] Rosangela Smyth PROF 14(COMP METB)on 022 Albumin [Mass/Vol] 3.7 g/dL Normal 3.4-5.0 [facility] Comment on above: Performed By: #### L IPID, CMP #### [facility] [address] [place] [address] Dr. Rosangela Symth Albumin/Globulin [Mass ratio] 1.1 {ratio} Normal [facility] Comment on above: Performed By: #### L IPID, CMP #### [facility] [address] [place] [address] Dr. Rosangela Smyth ALP [Catalytic activity/Vol] 92 U/L Normal 46-116 [facility] Comment on above: Performed By: #### L IPID, CMP #### [facility] [address] [place] [address] Dr. Rosangela Smyth ALT [Catalytic activity/Vol] 25 U/L Normal 14-59 [facility] Comment on above: Performed By: #### L IPID, CMP #### [facility] [address] [address] [address] Rosangela Smyth Anion gap [Moles/Vol] 11.8 mmol/L Normal [facility] Comment on above: Performed By: #### L IPID, CMP #### [facility] [address] [place] [address] Dr. Rosangela Smyth AST [Catalytic activity/Vol] 11 U/L Critically low 15-37 [facility] Comment on above: Performed By: #### L IPID, CMP #### [facility] [address] [address] [address] Rosangela Smyth Bilirubin [Mass/Vol] 0.2 mg/dL Normal 0.2-1.0 [facility] Comment on above: Performed By: #### L IPID, CMP #### [facility] [address] [place] [address] Dr. Rosangela Smyth Calcium [Mass/Vol] 10.6 mg/dL Critically high 8.5-10.1 [facility] Comment on above: Performed By: #### L IPID, CMP #### [facility] [address] [place] [address] Dr. Rosangela Smyth Chloride [Moles/Vol] 105 mmol/L Normal 98-107 [facility] Comment on above: Performed By: #### L IPID, CMP #### [facility] [address] [place] [address] Dr. Rosangela Smyth CO2 [Moles/Vol] 25.9 mmol/L Normal 21.0-32.0 [facility] Comment on above: Performed By: #### L IPID, CMP #### [facility] [address] [place] [address] Dr. Rosangela Smyth Creatinine [Mass/Vol] 0.86 mg/dL Normal 0.55-1.02 [facility] Comment on above: Performed By: #### L IPID, CMP #### [facility] [address] [place] [address] Dr. Rosangela Smyth EGFR-AF STATELESS >60 Normal >=60 [facility] Comment on above: Performed By: #### L IPID, CMP #### [facility] [address] [place] [address] Dr. Rosangela Smyth EGFR-NON AF STATELESS >60 Normal >=60 [facility] Comment on above: Performed By: #### L IPID, CMP #### [facility] [address] [place] [address] Dr. Rosangela Smyth Globulin (S) [Mass/Vol] 3.5 g/dL Normal [facility] Comment on above: Performed By: #### L IPID, CMP #### [facility] [address] [address] [address] Rosangela Smyth Glucose [Mass/Vol] 197 mg/dL Critically high 74-106 [facility] Comment on above: Performed By: #### L IPID, CMP #### [facility] [address] [place] [address] Dr. Rosangela Smyth Potassium [Moles/Vol] 4.7 mmol/L Normal 3.5-5.1 [facility] Comment on above: Performed By: #### L IPID, CMP #### [facility] [address] [place] [address] Dr. Rosangela Smyth Protein [Mass/Vol] 7.2 g/dL Normal 6.4-8.2 [facility] Comment on above: Performed By: #### L IPID, CMP #### [facility] [address] [place] [address] Dr. Rosangela Smyth Sodium [Moles/Vol] 138 mmol/L Normal 136-145 [facility] Comment on above: Performed By: #### L IPID, CMP #### [facility] [address] [place] [address] Dr. Rosangela Smyth Urea nitrogen [Mass/Vol] 16.0 mg/dL Normal 7.0-18.0 [facility] Comment on above: Performed By: #### L IPID, CMP #### [facility] [address] [place] [address] Dr. Rosangela Smyth Urea nitrogen/Creatinine [Mass ratio] 18.6 mg/mg Normal [facility] Comment on above: Performed By: #### L IPID, CMP #### [facility] [address] [place] [address] Dr. Rosangela Smyth GLYCOHEMOGLOBIN A1Con 2021 ADA RECOMMENDATION SEE BELOW Normal [facility] Comment on above: Result Comment: ADA RECOMMENDED LIMIT 4.0 - 6.0 ADA THERAPEUTIC TARGET < 7.0 ACTION SUGGESTED > 7.0 Performed By: #### L IPID, CMP #### [facility] [address] [address] [address] Rosangela Smyth Glucose [Mass/Vol] 134 mg/dL Normal [facility] Comment on above: Performed By: #### L IPID, CMP #### [facility] [address] [address] [address] Rosangela Smyth HbA1c (Bld) [Mass fraction] 6.3 % Critically high 4.5-6.2 [facility] Comment on above: Performed By: #### L IPID, CMP #### [facility] [address] [address] [address] Rosangela Smyth LIPID PROFILEon 01-31-2022 CHOL-HDL RATIO NORM SEE BELOW Normal [facility] Comment on above: Result Comment: 3.3 - 4.4 LOW RISK 4.4 - 7.1 AVERAGE RISK 7.1 - 11.0 MODERATE RISK >11.0 HIGH RISK Performed By: #### L ACT #### [facility] [address] [address] [address] Rosangela Smyth Cholesterol [Mass/Vol] 134 mg/dL Normal <=200 [facility] Comment on above: Performed By: #### L ACT #### [facility] [address] [address] [address] Rosangela Smyth Cholesterol in HDL [Mass/Vol] 68 mg/dL Critically high 40-60 [facility] Comment on above: Performed By: #### L ACT #### [facility] [address] [address] [address] Rosangela Smyth Cholesterol in LDL [Mass/Vol] 55.0 mg/dL Normal [facility] Comment on above: Performed By: #### L ACT #### [facility] [address] [address] [address] Rosangela Smyth Cholesterol.total/C holesterol in HDL [Mass ratio] 2.0 {ratio} Normal [facility] Comment on above: Performed By: #### L ACT #### [facility] [address] [address] [address] Rosangela Smyth HDL NORMAL > or = 60 mg/dl - LO W CARDIOVASCULAR RISK <40 mg/dl - HIGH CARDIOVASCULAR RISK Normal [facility] Comment on above: Performed By: #### L ACT #### [facility] [address] [address] [address] Rosangela Smyth LDL CALC NORMAL SEE BELOW Normal The [facility] Comment on above: Result Comment: <100 mg/dl OPTIMAL 100 - 129 mg/dl NEAR OR ABOVE OPTIMAL 130 - 159 mg/dl BORDERLINE HIGH 160 - 189 mg/dl HIGH >190 mg/dl VERY HIGH Performed By: #### L ACT #### [facility] [address] [address] [address] Rosangela Smyth Triglyceride [Mass/Vol] 55 mg/dL Normal <=150 [facility] Comment on above: Performed By: #### L ACT #### [facility] [address] [address] [address] Rosangela Smyth VLDL CALC 11.0 mg/dL Normal [facility] Comment on above: Performed By: #### L ACT #### [facility] [address] [address] [address] Rosangela Smyth PROF 14(COMP METB)on 022 Albumin [Mass/Vol] 4.0 g/dL Normal 3.4-5.0 [facility] Comment on above: Performed By: #### L ACT #### [facility] [address] [place] [address] Dr. Rosangela Smyth Albumin/Globulin [Mass ratio] 1.0 {ratio} Normal [facility] Comment on above: Performed By: #### L ACT #### [facility] [address] [address] [address] Rosangela Smyth ALP [Catalytic activity/Vol] 105 U/L Normal 46-116 [facility] Comment on above: Performed By: #### L ACT #### [facility] [address] [place] [address] Dr. Rosangela Smyth ALT [Catalytic activity/Vol] 30 U/L Normal 14-59 [facility] Comment on above: Performed By: #### L ACT #### [facility] [address] [place] [address] Dr. Rosangela Smyth Anion gap [Moles/Vol] 10.7 mmol/L Normal [facility] Comment on above: Performed By: #### L ACT #### [facility] [address] [address] [address] Rosangela Smyth AST [Catalytic activity/Vol] 14 U/L Critically low 15-37 [facility] Comment on above: Performed By: #### L ACT #### [facility] [address] [address] [address] Rosangela Smyth Bilirubin [Mass/Vol] 0.2 mg/dL Normal 0.2-1.0 [facility] Comment on above: Performed By: #### L ACT #### [facility] [address] [address] [address] Rosangela Smyth Calcium [Mass/Vol] 11.1 mg/dL Critically high 8.5-10.1 [facility] Comment on above: Performed By: #### L ACT #### [facility] [address] [place] [address] Dr. Rosangela Smyth Chloride [Moles/Vol] 104 mmol/L Normal 98-107 [facility] Comment on above: Performed By: #### L ACT #### [facility] [address] [place] [address] Dr. Rosangela Smyth CO2 [Moles/Vol] 26.8 mmol/L Normal 21.0-32.0 [facility] Comment on above: Performed By: #### L ACT #### [facility] [address] [place] [address] Dr. Rosangela Smyth Creatinine [Mass/Vol] 0.68 mg/dL Normal 0.55-1.02 [facility] Comment on above: Performed By: #### L ACT #### [facility] [address] [address] [address] Rosangela Smyth EGFR-AF STATELESS >60 Normal >=60 [facility] Comment on above: Performed By: #### L ACT #### [facility] [address] [place] [address] Dr. Rosangela Smyth EGFR-NON AF STATELESS >60 Normal >=60 [facility] Comment on above: Performed By: #### L ACT #### [facility] [address] [address] [address] Rosangela Smyth Globulin (S) [Mass/Vol] 4.0 g/dL Normal [facility] Comment on above: Performed By: #### L ACT #### [facility] [address] [address] [address] Rosangela Smyth Glucose [Mass/Vol] 142 mg/dL Critically high 74-106 [facility] Comment on above: Performed By: #### L ACT #### [facility] [address] [address] [address] Rosangela Smyth Potassium [Moles/Vol] 4.5 mmol/L Normal 3.5-5.1 [facility] Comment on above: Performed By: #### L ACT #### [facility] [address] [address] [address] Rosangela Smyth Protein [Mass/Vol] 8.0 g/dL Normal 6.4-8.2 [facility] Comment on above: Performed By: #### L ACT #### [facility] [address] [address] [address] Rosangela Smyth Sodium [Moles/Vol] 137 mmol/L Normal 136-145 [facility] Comment on above: Performed By: #### L ACT #### [facility] [address] [address] [address] Rosangela Smyth Urea nitrogen [Mass/Vol] 14.0 mg/dL Normal 7.0-18.0 [facility] Comment on above: Performed By: #### L ACT #### [facility] [address] [address] [address] Rosangela Smyth Urea nitrogen/Creatinine [Mass ratio] 20.6 mg/mg Normal [facility] Comment on above: Performed By: #### L ACT #### [facility] [address] [address] [address] Rosangela Smyth Gamma Glutamyl Transpeptidas anurag 07-23-2021 Gamma Glutamyl Transpeptidase 71 7-64 [facility] Other Ambulatory Clinical Summaryo n 02-26-2021 Ambulatory Clinical Summary {[id number] Normal [facility] Ambulatory Clinical Summaryo n 02-07-2021 Ambulatory Clinical Summary {[id number]}CD:[id number] Normal [facility] Ambulatory Clinical Summary {[id number] Normal [facility] Formson 02-07-2021 Forms [id number] D:127 Normal [facility] Historical Records Officeon 02-07-2021 Historical Records Office [id number] D:127 Normal [facility] Patient Educationon 02-08-20 21 Patient Education [...] stimulation). ? For women, using a medical reimbursement manager to prevent urine leaks. This is a [...] after experiencing incontinence. General instructions ? Take jcwb-vua-jjntkex and prescription medicines only as (more content not included)... Normal [facility] Urology Office/Clinic Noteon 02-07-2021 Urology Office/Clinic [...] anesthesia. ABX sent to [facility] in [place]. I have reviewed the previous health record information and history for this pt. from Dr. Cote. Follow-up With When Contact Information KERA VAN, Chicho Beaulieu, URL [address] [place] [address] [place] [address]- [phone] Additional Instructions: Patient Education Urinary Incontinence I, [...] (more content not included)... Normal [facility] Comment on above: Result Comment: Elec tronically Signed By: Chicho COTE MD\.br\Date and Time Signed: 02/07/21 11:47 EDT\.br\Electronically Co-Signed By: Vanesa Pruitt MA\.br\Date and Time Co-Signed: 02/07/21 11:[address] NECK SOFT TISSUE WO IVCON on 01-29-2021 [facility] Physician Referralon 020 Physician Referral [id number] D:127 Normal [facility] Vital Signs Date Time Vital Sign Value Performing Clinician Facility 05-25-2024 11:43-0400 Body height 165.1 cm Beto Vivar MD Work Phone: [facility] 05-25-2024 11:43-0400 Body mass index (BMI) [Ratio] 18.09 kg/m2 Beto Vivar MD Work Phone: [facility] 05-25-2024 11:43-0400 Body temperature 97.3 [degF] Beto Vivar MD Work Phone: [facility] 05-25-2024 11:43-0400 Body weight 49.3 kg Beto Vivar MD Work Phone: [facility] 05-25-2024 11:43-0400 Diastolic blood pressure 81 mm[Hg] Beto Vivar MD Work Phone: [facility] 05-25-2024 11:43-0400 Heart rate 69 /min Beto Vivar MD Work Phone: [facility] 05-25-2024 11:43-0400 Respiratory rate 16 /min Beto Vivar MD Work Phone: [facility] 05-25-2024 11:43-0400 SaO2% (BldA) [Mass fraction] 98 % Beto Vivar MD Work Phone: [facility] 05-25-2024 11:43-0400 Systolic blood pressure 149 mm[Hg] Beto Vivar MD Work Phone: [facility] 04-18-2024 13:41-0400 Body height 165.1 cm Beto Vivar MD Work Phone: [facility] 04-18-2024 13:41-0400 Body mass index (BMI) [Ratio] 18.31 kg/m2 Beto Vivar MD Work Phone: [facility] 04-18-2024 13:41-0400 Body temperature 97.59 [degF] Beto Vivar MD Work Phone: [facility] 04-18-2024 13:41-0400 Body weight 49.9 kg Beto Vivar MD Work Phone: [facility] 04-18-2024 13:41-0400 Diastolic blood pressure 77 mm[Hg] Beto Vivar MD Work Phone: [facility] 04-18-2024 13:41-0400 Heart rate 103 /min Beto Vivar MD Work Phone: [facility] 04-18-2024 13:41-0400 Respiratory rate 16 /min Beto Vivar MD Work Phone: [facility] 04-18-2024 13:41-0400 SaO2% (BldA) [Mass fraction] 99 % Beto Vivar MD Work Phone: [facility] 04-18-2024 13:41-0400 Systolic blood pressure 160 mm[Hg] Beto Vivar MD Work Phone: [facility] 04-14-2024 09:38-0400 Body temperature 97.7 [degF] Chair [place] Work Phone: [facility] 04-14-2024 09:38-0400 Diastolic blood pressure 83 mm[Hg] Chair Rebekah Work Phone: [facility] 04-14-2024 09:38-0400 Heart rate 90 /min Chair Rebekah Work Phone: [facility] 04-14-2024 09:38-0400 Respiratory rate 18 /min Chair [place] Work Phone: [facility] 04-14-2024 09:38-0400 SaO2% (BldA) [Mass fraction] 100 % Chair Rebekah Work Phone: [facility] 04-14-2024 09:38-0400 Systolic blood pressure 156 mm[Hg] Chair Rebekah Work Phone: [facility] 04-14-2024 08:38-0400 Body height 165.1 cm Lillie Bundridge POURED CONCRETE WALL TECHNICIAN.INSPECTOR [employer] Work Phone: [facility] 04-14-2024 08:38-0400 Body mass index (BMI) [Ratio] 19.22 kg/m2 Lillie Bundridge POURED CONCRETE WALL TECHNICIAN.INSPECTOR [employer] Work Phone: [facility] 04-14-2024 08:38-0400 Body temperature 97.39 [degF] Lillie Bundridge POURED CONCRETE WALL TECHNICIAN.INSPECTOR [employer] Work Phone: [facility] 04-14-2024 08:38-0400 Body weight 52.4 kg Lillie Bundridge POURED CONCRETE WALL TECHNICIAN.INSPECTOR [employer] Work Phone: [facility] 04-14-2024 08:38-0400 Diastolic blood pressure 79 mm[Hg] Lillie Bundridge POURED CONCRETE WALL TECHNICIAN.INSPECTOR [employer] Work Phone: [facility] 04-14-2024 08:38-0400 Heart rate 96 /min Lillie Bundridge POURED CONCRETE WALL TECHNICIAN.INSPECTOR [employer] Work Phone: [facility] 04-14-2024 08:38-0400 Respiratory rate 16 /min Lillie Bundridge POURED CONCRETE WALL TECHNICIAN.INSPECTOR [employer] Work Phone: [facility] 04-14-2024 08:38-0400 SaO2% (BldA) [Mass fraction] 100 % Lillie Bundridge POURED CONCRETE WALL TECHNICIAN.INSPECTOR [employer] Work Phone: [facility] 04-14-2024 08:38-0400 Systolic blood pressure 149 mm[Hg] Lillie Bundridge POURED CONCRETE WALL TECHNICIAN.INSPECTOR [employer] Work Phone: [facility] 04-07-2024 13:59-0400 Body temperature 98.4 [degF] Chair [place] Work Phone: [facility] 04-07-2024 13:59-0400 Diastolic blood pressure 92 mm[Hg] Chair [place] Work Phone: [facility] 04-07-2024 13:59-0400 Heart rate 85 /min Chair [place] Work Phone: [facility] 04-07-2024 13:59-0400 Respiratory rate 16 /min Chair [place] Work Phone: [facility] 04-07-2024 13:59-0400 SaO2% (BldA) [Mass fraction] 100 % Chair [place] Work Phone: [facility] 04-07-2024 13:59-0400 Systolic blood pressure 161 mm[Hg] Chair [place] Work Phone: [facility] 04-06-2024 15:12-0400 Body temperature 97.2 [degF] Ma Sand Work Phone: [facility] 04-06-2024 15:12-0400 Diastolic blood pressure 73 mm[Hg] Ma Sand Work Phone: [facility] 04-06-2024 15:12-0400 Heart rate 97 /min Ma Sand Work Phone: [facility] 04-06-2024 15:12-0400 Respiratory rate 20 /min Ma Sand Work Phone: [facility] 04-06-2024 15:12-0400 SaO2% (BldA) [Mass fraction] 100 % Ma Sand Work Phone: [facility] 04-06-2024 15:12-0400 Systolic blood pressure 169 mm[Hg] Ma Sand Work Phone: [facility] 03-23-2024 15:31-0400 Body mass index (BMI) [Ratio] 19.11 kg/m2 Beto Vivar MD Work Phone: [facility] 03-23-2024 15:31-0400 Body temperature 97.81 [degF] Beto Vivar MD Work Phone: [facility] 03-23-2024 15:31-0400 Body weight 52.1 kg Beto Vivar MD Work Phone: [facility] 03-23-2024 15:31-0400 Diastolic blood pressure 84 mm[Hg] Beto Vivar MD Work Phone: [facility] 03-23-2024 15:31-0400 Heart rate 79 /min Beto Vivar MD Work Phone: [facility] 03-23-2024 15:31-0400 Respiratory rate 16 /min Beto Vivar MD Work Phone: [facility] 03-23-2024 15:31-0400 SaO2% (BldA) [Mass fraction] 100 % Beto Vivar MD Work Phone: [facility] 03-23-2024 15:31-0400 Systolic blood pressure 172 mm[Hg] Beto Vivar MD Work Phone: [facility] 05-22-2022 11:23-0400 Body height 165.1 cm Ignacio Sam MD Work Phone: [facility] 05-22-2022 11:23-0400 Body temperature 97.59 [degF] Ignacio Sam MD Work Phone: [facility] 05-22-2022 11:23-0400 Body weight 71.22 kg Ignacio Sam MD Work Phone: [facility] 05-22-2022 11:23-0400 Diastolic blood pressure 80 mm[Hg] Ignacio Sam MD Work Phone: [facility] 05-22-2022 11:23-0400 Heart rate 95 /min Ignacio Sam MD Work Phone: [facility] 05-22-2022 11:23-0400 Respiratory rate 16 /min Ignacio Sam MD Work Phone: [facility] 05-22-2022 11:23-0400 SaO2% (BldA) [Mass fraction] 100 % Ignacio Sam MD Work Phone: [facility] 05-22-2022 11:23-0400 Systolic blood pressure 145 mm[Hg] Ignacio Sam MD Work Phone: [facility] 07-23-2021 11:45-0500 Body height 165.1 cm [facility] Other [facility] Other 07-23-2021 11:45-0500 Body mass index (BMI) [Ratio] 24.29 kg/m2 [facility] Other [facility] Other 07-23-2021 11:45-0500 Body weight 66.23 kg [facility] Other [facility] Other 06-02-2021 15:40-0400 Body height 165.1 cm [facility] Other [facility] Other 06-02-2021 15:40-0400 Body mass index (BMI) [Ratio] 24.83 kg/m2 [facility] Other [facility] Other 06-02-2021 15:40-0400 Body temperature 96.9 [degF] [facility] Other [facility] Other 06-02-2021 15:40-0400 Body weight 67.68 kg [facility] Other [facility] Other 06-02-2021 15:40-0400 Diastolic blood pressure 80 mm[Hg] [facility] Other [facility] Other 06-02-2021 15:40-0400 Respiratory rate 18 /min [facility] Other [facility] Other 06-02-2021 15:40-0400 SaO2% (BldA) [Mass fraction] 99 % [facility] Other [facility] Other 06-02-2021 15:40-0400 Systolic blood pressure 136 mm[Hg] [facility] Other [facility] Other Encounters Encounter Date Encounter Type Care Provider Facility Start: 05-31-2024 End: 06-02-2024 Telephone encounter Lise Connolly RN Work Phone: Hematology/Oncology Comment on above: Care Coordination (A ppointment; Pain Request) Start: 05-30-2024 End: 05-30-2024 Telephone encounter Beto Vivar MD Work Phone: Cancer [facility] Comment on above: No Show Start: 05-25-2024 End: 05-31-2024 Telephone encounter Jose Dillard MD Work Phone: Radiology Comment on above: Appointment Start: 05-25-2024 End: 05-25-2024 Patient encounter procedure Beto Vivar MD Work Phone: Hematology/Oncology Start: 05-25-2024 End: 05-26-2024 ambulatory Chair 21 [place] Work Phone: Hematology/Oncology Comment on above: 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); 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); Cancer related pain; Iron deficiency anemia due to chronic blood loss; B12 deficiency; Hypercalcemia of malignancy; Acquired hypothyroidism Start: 05-24-2024 End: 05-24-2024 Telephone encounter Lise Connolly RN Work Phone: Hematology/Oncology Comment on above: Care Coordination (F ollow Up Call) Start: 05-22-2024 End: 05-24-2024 Telephone encounter Lise Connolly RN Work Phone: Hematology/Oncology Comment on above: Care Coordination (P t Update) Start: 05-19-2024 End: 05-29-2024 Refill Lillie Richter POURED CONCRETE WALL TECHNICIAN.INSPECTOR [employer] Work Phone: Palliative Medicine Comment on above: Refill Request Start: 05-17-2024 End: 05-19-2024 Patient encounter procedure Jorge Roy DO Work Phone: Radiation Oncology Start: 05-17-2024 End: 05-19-2024 Radiation Oncology Note Jorge Roy DO Work Phone: Radiation Oncology Comment on above: Completion Note Start: 05-17-2024 End: 05-19-2024 Telephone encounter Lise Connolly RN Work Phone: Hematology/Oncology Comment on above: Care Coordination (P ain Request) Start: 05-16-2024 End: 05-16-2024 Telephone encounter Lillie Richter POURED CONCRETE WALL TECHNICIAN.INSPECTOR [employer] Work Phone: Palliative Medicine Comment on above: Symptom Management Start: 05-15-2024 End: 05-15-2024 Telephone encounter Lise Connolly RN Work Phone: Hematology/Oncology Comment on above: Care Coordination (H ospice Referral) Start: 05-12-2024 End: 05-15-2024 Telephone encounter Lise Connolly RN Work Phone: Hematology/Oncology Comment on above: Care Coordination (D ischarge Follow Up Call) Start: 05-10-2024 End: 05-10-2024 Patient encounter procedure Jorge Roy DO Work Phone: Radiation Oncology Comment on above: Gastric carcinoma (H CC) (Primary Dx) Start: 05-10-2024 End: 05-10-2024 Evaluation and management of inpatient KOSTAS JARVIS STEWARD Facility:[facility] Start: 05-10-2024 End: 05-10-2024 ambulatory JORGE ROY Facility:[facility] Start: 05-09-2024 End: 05-09-2024 Evaluation and management of inpatient KOSTAS MEJÍANG Facility:[facility] Start: 05-08-2024 Evaluation and management of inpatient HAMMAD MARTÍNEZ Facility:[facility] Start: 05-08-2024 End: 05-08-2024 Evaluation and management of inpatient HAMMAD MARTÍNEZ Facility:[facility] Start: 05-07-2024 End: 05-07-2024 Evaluation and management of inpatient JORGE ROY Facility:[facility] Start: 05-06-2024 End: 05-09-2024 Refill Lillie Richter APRN.CNP Work Phone: Palliative Medicine Comment on above: Med Change Request Start: 05-06-2024 End: 05-06-2024 Evaluation and management of inpatient JORGE ROY Facility:[facility] Start: 05-05-2024 End: 05-05-2024 Evaluation and management of inpatient JORGE ROY Facility:[facility] Start: 05-04-2024 End: 05-10-2024 Patient encounter procedure Jorge Roy DO Work Phone: Radiation Oncology Start: 05-04-2024 End: 05-10-2024 Radiation Oncology Note Jorge Roy DO Work Phone: Radiation Oncology Comment on above: Simulation Note Start: 05-04-2024 End: 05-04-2024 Evaluation and management of inpatient JORGE ROY Facility:[facility] Start: 05-04-2024 ambulatory KOSTAS STEWARD Facility:[facility] Start: 05-03-2024 End: 05-05-2024 Orders Only Jorge Roy DO Work Phone: Radiation Oncology Comment on above: 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) Start: 05-03-2024 End: 05-12-2024 Evaluation and management of inpatient KOSTAS STEWARD Facility:[facility] Start: 05-02-2024 End: 05-16-2024 Telephone encounter Lise Connolly RN Work Phone: Hematology/Oncology Comment on above: Care Coordination (H ospital Admission) Start: 05-01-2024 End: 05-02-2024 Evaluation and management of inpatient ILA MARQUEZ [facility] Start: 05-01-2024 ambulatory KOSTAS Hough [facility] Start: 04-28-2024 End: 04-28-2024 Refill Lillie Richter POURED CONCRETE WALL TECHNICIAN.INSPECTOR [employer] Work Phone: Palliative Medicine Comment on above: Refill Request Start: 04-27-2024 End: 05-01-2024 Telephone encounter Regina Jarvis PA-C Work Phone: Hematology/Oncology Comment on above: Lab Orders Start: 04-26-2024 End: 04-26-2024 Telephone encounter April Frye mounter [facility] Comment on above: Care Coordination Care Coordination (P D-L1 Question) Returning Patient's Call Start: 04-24-2024 End: 04-27-2024 Telephone encounter Dinh Andino RN [facility] Radiol ogy Procedure Comment on above: Appointment Refill Request Insurance Authorizat ion (Butran 20 mcg patch ) Corral Boss - O ther (Missed Appointment) Start: 04-24-2024 End: 04-24-[address] [facility] Start: 04-21-2024 Telephone encounter April Frye RN [facility] Palliative Medicine Comment on above: Care Coordination (P ain ) Radiology Pre Proced ure Instructions Care Coordination (B 12) Care Coordination (A ntiemetic) Start: 04-20-2024 Telephone encounter Lise pozo RN Work Phone: Hematology/Oncology Comment on above: Care Coordination (A ppointment Question) Radiology Pre Proced ure Instructions Start: 04-19-2024 Telephone encounter Lillie Richter POURED CONCRETE WALL TECHNICIAN.INSPECTOR [employer] Work Phone: Palliative Medicine Comment on above: Patient Update Start: 04-18-2024 Telephone encounter Beto hurley MD Work Phone: Cancer Appts Comment on above: Additional testing Port Placement [...] pain Start: 04-17-2024 Telephone encounter Lillie Richter APRN.INSPECTOR [employer] Work Phone: Palliative Medicine Comment on above: Care Coordination (S tomach pain ) Start: 04-15-2024 Telephone encounter Faby martinez MD Work Phone: Hematology/Oncology Comment on above: Medication Problem Start: 04-14-2024 End: 04-14-2024 Patient encounter procedure Lillie Richter APRN.INSPECTOR [employer] Work Phone: Palliative Medicine Comment on above: [...] 04-10-2024 ambulatory Dajuan Whaley Facility:[facility] Start: 04-07-2024 Telephone encounter Rae Manzo RN Hematology/Oncology Comment on above: Patient Question; Iman Dey Care Coordination (S can Results) Patient Question; Ca re Coordinator - Other Start: 04-07-2024 End: 04-10-2024 ambulatory Chair 14 Rebekah Work Phone: Hematology/Oncology Comment on above: 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); Iron deficiency anemia due to chronic blood loss Start: 04-06-2024 End: 04-06-2024 Nursing evaluation of patient and report Ma Nurse Beltran Ybarra Work Phone: Hematology/Oncology Comment on above: 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) Start: 04-06-2024 End: 04-06-2024 ambulatory BETO VIVAR Facility:[facility] Start: 04-06-2024 End: 04-06-2024 ambulatory BETO VIVAR Facility:[facility] Start: 04-06-2024 End: 04-06-2024 Subsequent hospital visit by physician Arrival Time Radiology Work Phone: Radiology Pet CT Comment on above: 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 Start: 04-03-2024 End: 04-03-2024 ambulatory Erendira [...] blood loss Start: 03-28-2024 End: 03-28-2024 ambulatory [facility] Start: 03-28-2024 Telephone encounter [...] FISH Analysis) Start: 03-22-2024 End: 03-22-2024 ambulatory CONG MONTANO [facility] Start: 03-17-2024 Chart abstracting Beto kennedy MD Work Phone: Hematology/Oncology Start: 03-07-2024 End: 03-07-2024 ambulatory [facility] Start: 03-03-2024 End: 03-03-2024 Evaluation and management of inpatient MINE Arauz [facility] Start: 03-02-2024 End: 03-03-2024 Evaluation and management of inpatient CONG MONTANO [facility] Start: 02-24-2024 End: 02-24-2024 ambulatory [facility] Start: 02-21-2024 End: 02-21-2024 ambulatory [facility] Start: 02-18-2024 End: 02-18-2024 ambulatory LUISA Hart ABDULLAHI [facility] Start: 02-16-2024 ambulatory [facility] Start: 02-02-2024 End: 02-02-2024 ambulatory [facility] Start: 01-21-2024 End: 01-21-2024 ambulatory [facility] Start: 01-21-2024 End: 01-21-2024 ambulatory [facility] Start: 11-17-2023 End: 11-17-2023 Office outpatient visit 15 minutes [facility] POURED CONCRETE WALL TECHNICIAN-INSPECTOR [employer] Work Phone: [facility] Internal Medicine - Family Medicine Comment on above: Diarrhea of presumed infectious origin (Primary Dx); Weakness; Type 2 diabetes mellitus without complication, without long-term current use of insulin ([facility]); Hyperparathyroidism ([facility]) Start: 11-17-2023 End: 11-17-2023 ambulatory [facility] Start: 11-11-2023 Telephone [facility] Start: 11-05-2023 Telephone encounter [facility] Start: 10-25-2023 Refill Beatrice Allen [facility]icians Internal Medicine - Family Medicine Comment on above: Type 2 diabetes noe itus without complication, without long- term current use of insulin ([facility]) Start: 10-24-2023 Refill Kostas navas DO Work Phone: [facility] Internal Medicine - Family Medicine Comment on above: Type 2 diabetes noe itus without complication, without long- term current use of insulin ([facility]) Start: 09-03-2023 Refill Kostas navas DO Work Phone: [facility] Internal Medicine - Family Medicine Comment on above: Acquired hypothyroid ism Start: 08-23-2023 End: 08-23-[address] [facility] Start: 08-23-2023 End: 08-23-2023 ambulatory KOSTAS STEWARD [facility] Ambulatory PPG [...] 07-15-2022 End: 07-15-2022 ambulatory Neo Calhoun Other [employer] Other Start: 07-15-2022 Telephone encounter Neo Nation ck [facility] Inside Sales Professional Start: 07-08-2022 End: 07-08-[address] TEE KRAUSE . Facility:H1 Start: 07-03-2022 Telephone encounter Ignacio hardwick MD Work Phone: [facility] Comment on above: Patient Update Start: 06-04-2022 Telephone encounter Ignacio hardwick MD Work Phone: [facility] Comment on above: Appointment Cancelle d Start: 05-29-2022 Telephone encounter Jackie Silverio ADDING MACHINE OPERATOR H ematology/Oncology Comment on above: Social Work Services Start: 05-26-2022 Telephone encounter Regina russell PA-C Work Phone: Hematology/Oncology Comment on above: Lab Orders Start: 05-25-2022 Telephone encounter Yvonne Echavarria RN Hematology/Oncology Comment on above: Results Start: 05-22-2022 End: 05-22-2022 ambulatory Ignacio Sam MD Work Phone: Hematology/Oncology Comment on above: Anemia, normocytic n ormochromic (Primary Dx) Start: 05-22-2022 End: 05-22-2022 Patient encounter procedure Ignacio Sam MD Work Phone: [place] [place] Start: 05-21-2022 Chart abstracting Ignacio gee MD Work Phone: Hematology/Oncology Start: 05-19-2022 End: 05-20-[address] KOSTAS STEWARD Facility:H1 Start: 05-16-2022 End: 05-16-2022 ambulatory FOX DUFF Facility:H1 Start: 05-04-2022 End: 05-05-[address] KOSTAS STEWARD Facility:H1 Start: 04-23-2022 End: 04-23-2022 ambulatory Neo Calhoun Other [employer] Other Start: 04-23-2022 Telephone encounter Neo powell [facility] G[facility]enterology Start: 04-03-2022 End: 04-04-[address] KOSTAS STEWARD Facility:H1 Start: 01-31-2022 End: 02-01-[address] KOSTAS STEWARD Facility:H1 Start: 01-02-2022 End: 01-02-2022 ambulatory Neo Calhoun Other [employer] Other Start: 01-02-2022 Telephone encounter Neo powell [facility] G[facility] Start: 08-18-2021 End: 08-18-2021 ambulatory Neo Calhoun Other [employer] Other Start: 08-18-2021 Telephone encounter Neo Nation sherry [facility] G[facility] Start: 07-23-2021 End: 07-23-2021 ambulatory Neo Calhoun Other [employer] Other Start: 07-23-2021 Office outpatient vi sit 25 minutes Neo Calhoun [facility] Gastroenterology Start: 06-02-2021 Office outpatient ne w 45 minutes Brynn Holliday [facility] Nephrology Start: 01-29-2021 End: 01-29-2021 Subsequent hospital visit by physician Anna [facility]) Radiology Comment on above: Disorder of airway [ J98.9] Procedures Date Procedure Procedure Detail Performing Clinician Start: 05-10-2024 Antibody screen JORGE ROY Comment on above: Order Comment: Speci men Type: BLOOD SPECIMENOrdering Facility: [facility] Address: [address] [place] [address] Performed By: #### T SCR ####CC MAIN BLOOD BANKCLIA [id number] [address] Start: 05-07-2024 Antibody screen JORGE ROY Comment on above: Order Comment: Speci men Type: BLOOD SPECIMENOrdering Facility: [facility] Address: [address] [place] [address] Performed By: #### T SCR ####CC MAIN BLOOD BANKCLIA [id number] [address] Start: 05-03-2024 Antibody screen JORGE ROY Comment on above: Order Comment: Speci men Type: BLOOD SPECIMENOrdering Facility: [facility] Address: [address] [place] [address] Performed By: #### T SCR ####CC MAIN BLOOD BANKCLIA [id number] [address] [place] Start: 04-14-2024 Drug tst prsmv instr mnt chem analyzers pr date Lillie Dupree Saul POURED CONCRETE WALL TECHNICIAN.INSPECTOR [employer] Work Phone: Start: 04-06-2024 Ct abdomen w/contras [...] Adult depression scr eening assessment Kostas Steward [employer] Work Phone: Start: 08-23-2023 Microalbumin [Mass/v olume] in Urine by Test strip Kostas Steward [employer] Work Phone: Start: 08-12-2023 Mammography Kostas echavarria [employer] Work Phone: Start: 04-01-2023 Diabetic retinal eye exam Kostas Steward [employer] Work Phone: Start: 01-29-2021 Ct soft tissue neck w/o contrast material Trev Shah MD Work Phone: Start: 01-29-2021 Ct thorax w/o contra st material Trev Shah MD Work Phone: Start: 04-06-2018 Colonoscopy Kostas echavarria [employer] Work Phone: Start: 06-04-2016 Adult depression scr eening assessment Ignacio Sam MD Work Phone: Plan of Treatment Date Care Activity Detail Author Start: 04-06-2028 Screening for malign ant neoplasm of colon Colonoscopy [facility] Start: 05-25-2027 Diabetes Screening Diabetes Screenin g [facility] Start: 05-10-2027 Diabetes Screening Diabetes Screenin g [facility] Start: 05-09-2027 Diabetes Screening Diabetes Screenin g [facility] Start: 05-03-2027 Diabetes Screening Diabetes Screenin g [facility] Start: 04-18-2027 Diabetes Screening Diabetes Screenin g [facility] Start: 03-23-2027 Diabetes Screening Diabetes Screenin g [facility] Start: 01-20-2027 Diabetes Screening Diabetes Screenin g [facility] Start: 04-30-2025 Screening for malign ant neoplasm of breast Mammogram Screening [facility] Start: 03-02-2025 Screening for malign ant neoplasm of colon [facility] Start: 08-23-2024 Adult BMI Screening Adult BMI Screen ing [facility] Start: 08-23-2024 Depression Screening Depression Scre ening [facility] Start: 08-23-2024 Tobacco Screening Tobacco Screening [facility] Start: 08-23-2024 Urine screening for protein Urine Microalbumin [facility] Start: 08-12-2024 Screening for malign ant neoplasm of breast [facility] Start: 06-21-2024 End: 06-21-2024 Follow-up encounter 06/21/2024 2:30 PM EDT [facility] Radiology [address] [place] [address] VIRTUAL VISIT FOLLOW UP (IVC FILTER) ([facility] ONLY) Radiology Comment on above: VIRTUAL VISIT FOLLOW UP (IVC FILTER) ([facility] ONLY) Start: 06-05-2024 End: 06-05-2024 ambulatory Hematology/Oncology Comment on above: HOSP DC PLEASE RS PALL ME D APPT Start: 06-01-2024 End: 06-01-2024 Follow-up encounter 06/01/2024 11:00 AM EDT Infusion Center Hematology/Oncology [address] [facility] [place] [address] follow up and chemotx FOLFOX + NIVO Hematology/Oncology Comment on above: follow up and chemot x FOLFOX + NIVO Start: 05-31-2024 End: 05-31-2024 Patient encounter procedure 05/31/2024 10:00 AM EDT Office Visit Palliative Medicine [address] [place] [address] Lillie Richter, POURED CONCRETE WALL TECHNICIAN.INSPECTOR [employer] [address] [place] [address] 4 week follow up Palliative Medicine Comment on above: 4 week follow up Start: 05-30-2024 End: 05-30-2024 Nutrition therapy 05/30/2024 12:45 PM EDT Education Nutrition Therapy [address] [facility] [place] [address] [facility] [place] [address] SEE IN [place] Nutrition Therapy Comment on above: SEE IN [place] Start: 05-30-2024 End: 05-30-2024 Nursing evaluation of patient and report 05/30/2024 10:00 AM EDT Nurse Visit Hematology/Oncology [address] [place] [address] [place] [address] Lise Connolly, BORA [address] [place] [address] [place] [address] chemo ed Hematology/Oncology Comment on above: chemo ed Start: 05-30-2024 End: 05-30-2024 Follow-up encounter Hematology/Oncology Comment on above: follow up and chemot x FOLFOX + NIVO Start: 05-25-2024 End: 05-25-2024 ambulatory 05/25/2024 11:45 AM EDT Visit (SP) Office Hematology/Oncology [address] [facility] [place] [address] Beto Vivar MD [address] [place] [address] mailbox full but PLEASE RS PALL MED APPT too Hematology/Oncology Comment on above: mailbox full but PLE ASE RS PALL MED APPT too Start: 05-12-2024 End: 05-12-2024 Patient encounter procedure 05/12/2024 9:30 AM EDT Office Visit Palliative Medicine [address] [facility] [place] [address] Lillie Richter, BERENICE.INSPECTOR [employer] [address] [place] [address] 4 week follow up Palliative Medicine Comment on above: 4 week follow up Start: 05-10-2024 End: 05-10-2024 Patient encounter procedure Radiation Oncology Comment on above: G70-33.. 5 FX STOMAC H TB 4 G70-33.. 5 FX STOMAC H *approved/append/ Start: 05-09-2024 End: 05-09-2024 Patient encounter procedure 05/09/2024 1:20 PM EDT Appointment Radiation Oncology [address] [place] [address] G70-33.. 5 FX STOMACH Radiation Oncology Comment on above: G70-33.. 5 FX STOMAC H Start: 05-07-2024 Influenza vaccination Influenza Vacc ine (#1) [facility] Start: 05-07-2024 End: 05-07-2024 Patient encounter procedure 05/07/2024 9:20 AM EDT Appointment Radiation Oncology [address] [place] [address] [place] [address] [place] [address] G70-33..5FX STOMACH Radiation Oncology Comment on above: G70-33..5FX STOMACH Start: 05-06-2024 End: 05-06-2024 Patient encounter procedure 05/06/2024 9:40 AM EDT Appointment Radiation Oncology [address] [place] [address] [place] [address] [place] [address] G70-33..5FX STOMACH Radiation Oncology Comment on above: G70-33..5FX STOMACH Start: 05-04-2024 End: 05-04-2024 Follow-up encounter 05/04/2024 11:00 AM EDT [facility] Hematology/Oncology [address] [place] [address] [place] [address] follow up and chemotx FOLFOX + NIVO Hematology/Oncology Comment on above: follow up and chemot x FOLFOX + NIVO Start: 05-04-2024 End: 05-04-2024 Nutrition therapy 05/04/2024 10:00 AM EDT Education Nutrition Therapy [address] [facility] [place] [address] [facility] [facility] [place] [address] phone f/u Nutrition Therapy Comment on above: phone f/u Start: 05-02-2024 End: 08-01-2024 CBC W Auto Differential panel - Blood COMPLETE BLOOD COUNT AND DIFFERENTIAL Lab Routine 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) Expected: 05/02/2024, Expires: 08/01/2024 [facility] Work Phone: Comment on above: Expected: 05/02/2024 , Expires: 08/01/2024 Start: 05-02-2024 End: 08-01-2024 Comprehensive metabolic 2000 panel - Serum or Plasma COMPREHENSIVE METABOLIC PANEL Lab Routine 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) Expected: 05/02/2024, Expires: 08/01/2024 [facility] Comment on above: Expected: 05/02/2024 , Expires: 08/01/2024 Start: 05-02-2024 End: 05-02-2024 Nursing evaluation of patient and report 05/02/2024 8:30 AM EDT Nurse Visit Hematology/Oncology [address] [place] [address] [place] [address] Lise Connolly, RN [address] [facility] [place] [address] Chemo Ed Hematology/Oncology Comment on above: Chemo Ed Start: 05-02-2024 End: 05-02-2024 Follow-up encounter Hematology/Oncology Comment on above: follow up and chemot x FOLFOX + NIVO follow up and chemot x FOLFOX + NIVO-PORT Start: 05-01-2024 End: 05-01-2024 Nursing evaluation of patient and report 05/01/2024 9:00 AM EDT Nurse Visit Hematology/Oncology [address] [place] [address] [place] [address] Lise Connolly, RN [address] [facility] [facility] [place] [address] Chemo Ed Hematology/Oncology Comment on above: Chemo Ed Start: 04-28-2024 End: 04-28-2024 Nursing evaluation of patient and report 04/28/2024 9:00 AM EDT Nurse Visit Hematology/Oncology [address] [facility] [facility] [place] [address] Lise Connolly, RN [address] [facility] [place] [address] Chemo ed for FOLFOX/Nivo Hematology/Oncology Comment on above: Chemo ed for FOLFOX/ Nivo Start: 04-25-2024 End: 04-25-2024 Admission to same day surgery center 04/25/2024 11:30 AM EDT - 04/25/2024 1:00 PM EDT Surgery [facility] Radiology Procedure [id number] [place] [address] Alxe Masterson MD [address] [place] [address] INSERTION PORT VENOUS ACCESS ADULT [facility] Radiology Procedure Comment on above: INSERTION PORT VENOU S ACCESS ADULT Start: 04-25-2024 End: 04-25-2024 Insj tunneled ctr vad w/subq port age 4 yr/> INSERTION PORT VENOUS ACCESS ADULT Malignant neoplasm of cardia (HCC) 04/25/2024 11:30 AM EDT AV IR Start: 04-25-2024 Subsequent hospital visit by physician 04/25/2024 11:30 AM EDT Hospital Encounter [facility] Radiology Procedure [id number] [place] [address] Alex Masterson MD [address] [place] [address] 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] [facility] Radiology Procedure Comment on above: Malignant neoplasm o f cardia (HCC) [C16.0] Start: 04-24-2024 End: 04-24-2024 Nursing evaluation of patient and report 04/24/2024 1:00 PM EDT Nurse Visit Hematology/Oncology [address] [facility] [facility] [place] [address] Lise Connolly, RN [address] [facility] [facility] [place] [address] Chemo ed for FOLFOX/Nivo Hematology/Oncology Comment on above: Chemo ed for FOLFOX/ Nivo Start: 04-21-2024 End: 04-21-2024 ambulatory 04/21/2024 1:30 PM EDT Infusion Center Hematology/Oncology [address] [facility] [facility] [place] [address] IV Fe # 4 B 12 inj Hematology/Oncology Comment on above: IV Fe # 4 B 12 inj Start: 04-21-2024 End: 04-21-2024 Nursing evaluation of patient and report 04/21/2024 10:30 AM EDT Nurse Visit Hematology/Oncology [address] [facility] [facility] [place] [address] Javier Ybarra Nurse Beltran [address] [facility] [place] [address] B12 x monthly needs scheduled for more b-12 injection once [facility] gives follow up for [facility]-phone encounter Hematology/Oncology Comment on above: B12 x monthly nee ds scheduled for more b-12 injection once [facility] gives follow up for [facility]-phone encounter Start: 04-18-2024 End: 04-18-2024 Nursing evaluation of patient and report 04/18/2024 2:00 PM EDT Nurse Visit Hematology/Oncology [address] [facility] [facility] [place] [address] Javier Ybarra Nurse Beltran [address] [place] [address] [place] [address] B12 x monthly needs scheduled for more b-12 injection-monthly Hematology/Oncology Comment on above: B12 x monthly nee ds scheduled for more b-12 injection-monthly Start: 04-18-2024 End: 04-18-2024 ambulatory 04/18/2024 1:45 PM EDT Visit (SP) Office Hematology/Oncology [address] [place] [address] Beto Vivar MD [address] [place] [address] 04/12-This Date/Time Per [facility] Hematology/Oncology Comment on above: 04/12-This Date/Time P er TSmit Start: 04-18-2024 End: 04-18-2024 Patient encounter procedure 04/18/2024 1:30 PM EDT Office Visit [facility] [address] [place] [address] 04/12-This Date/Time Per [facility] Laboratory Comment on above: 04/12-This Date/Time P er [facility] Start: 04-14-2024 End: 07-14-2024 PAIN PANEL, UR QUANT [facility] Work Phone: Comment on above: Expected: 04/14/2024 , Expires: 07/14/2024 Start: 04-14-2024 End: 07-14-2024 TOXICOLOGY SCREEN, ROUTINE URINE [facility] Comment on above: Expected: 04/14/2024 , Expires: 07/14/2024 Start: 04-14-2024 End: 04-14-2024 Nutrition therapy 04/14/2024 10:45 AM EDT Education Nutrition Therapy [address] [place] [address] Erendira Aguillon, FORTINO [address] [place] [address] phone f/u Nutrition Therapy Comment on above: phone f/u Start: 04-14-2024 End: 04-14-2024 ambulatory Hematology/Oncology Comment on above: IV Fe 04/12-[facility] to let pt know about her b-12 being moved from 04/21 to 04/18 Start: 04-14-2024 End: 04-14-2024 Patient encounter procedure 04/14/2024 8:30 AM EDT Office Visit Palliative Medicine [address] [place] [address] Lillie Richter, POURED CONCRETE WALL TECHNICIAN.INSPECTOR [employer] [address] [place] [address] Pall Med appt Ref by Dr Beto Vivar Palliative Medicine Comment on above: Pall Med appt Ref by Dr Beto Vivar Start: 04-07-2024 End: 04-07-2024 ambulatory 04/07/2024 1:30 PM EDT Infusion Center Hematology/Oncology [address] [facility] [facility] [place] [address] IV Fe x 4 doeses Hematology/Oncology Comment on above: IV Fe x 4 doeses Start: 04-06-2024 End: 04-06-2024 Patient encounter procedure Radiology Pet CT Comment on above: Pet scan and CT CA w ith contrast CT CA with contrast CCN not approved Start: 04-01-2024 Glaucoma screening Diabetic Op hthalmology Exam [facility] Start: 03-30-2024 End: 03-30-2024 ambulatory Hematology/Oncology Comment on above: IV Fe next available IV Fe next available / 4 doses IV Fe next available / 3 doses per phone encounter Start: 03-23-2024 End: 03-23-2024 ambulatory 03/23/2024 4:00 PM EDT Visit (SP) Office Hematology/Oncology [address] [facility] [facility] [place] [address] Beto Vivar MD [address] [facility] [place] [address] Dx: Gastric Carcinoma Hematology/Oncology Comment on above: Dx: Gastric Carcinom a Start: 03-23-2024 End: 06-22-2024 CIRCULATING TUMOR DNA GENOMIC ANALYSIS FOR SOLID TUMORSRESTRICTED TO ONCOLOGY [facility] Comment on above: Expected: 03/23/2024 , Expires: 06/22/2024 Start: 03-23-2024 End: 06-22-2024 Ferritin [Mass/volume] in Serum or Plasma [facility] Comment on above: Expected: 03/23/2024 , Expires: 06/22/2024 Start: 03-23-2024 End: 06-22-2024 Iron and Iron binding capacity panel - Serum or Plasma [facility] Work Phone: Comment on above: Expected: 03/23/2024 , Expires: 06/22/2024 Start: 03-23-2024 End: 06-22-2024 T4/FTI/T4U [facility] Comment on above: Expected: 03/23/2024 , Expires: 06/22/2024 Start: 03-23-2024 End: 06-22-2024 Thyrotropin [Units/volume] in Serum or Plasma [facility] Comment on above: Expected: 03/23/2024 , Expires: 06/22/2024 Start: 03-15-2024 Diabetic foot examination Diabetic F oot Exam [facility] Start: 2024 RSV Vaccine (1 - 1-d ose 60+ series) RSV Vaccine (1 - 1-dose 60+ series) [facility] Start: 2024 RSV Vaccine (1 - Ris k 60-74 years 1-dose series) RSV Vaccine (1 - Risk 60-74 years 1-dose series) [facility] Start: 12-01-2023 End: 12-01-2023 Patient encounter procedure 12/01/2023 4:00 PM EDT Office Visit [facility] Internal Medicine - Family Medicine [address] [place] [address] Dk Monge, POURED CONCRETE WALL TECHNICIAN-INSPECTOR [employer] [address] [place] [address] [facility] Internal Medicine - Family Medicine Start: 09-06-2023 Behavioral Health Screening Behavioral Health Screening [facility] Start: 05-07-2023 Covid-19 Vaccine ( season) Covid-19 Vaccine ( season) [facility] Start: 05-07-2023 Influenza vaccination [facility] Start: 11-11-2022 PNEUMOCOCCAL (2 - PCV) PNEUMOCOCCAL (2 - PCV) [facility] Start: 11-11-2022 Pneumococcal vaccination Pneum ococcal Vaccine (2 - PCV) [facility] Start: 09-06-2022 Depression Assessment Depression Ass essment [facility] Start: 06-19-2022 End: 08-19-2022 PROTEIN ELECTROPHORESIS SERUM W/INTERP PROTEIN ELECTROPHORESIS SERUM W/INTERP Lab Routine Anemia, normocytic normochromic Expected: 06/19/2022 (Approximate), Expires: 08/19/2022 [facility] Work Phone: Comment on above: Expected: 06/19/2022 (Approximate), Expires: 08/19/2022 Start: 06-12-2022 End: 08-12-2022 Thyrotropin [Units/volume] in Serum or Plasma TSH BLD Lab Routine Anemia, normocytic normochromic Expected: 06/12/2022 (Approximate), Expires: 08/12/2022 [facility] Work Phone: Comment on above: Expected: 06/12/2022 (Approximate), Expires: 08/12/2022 Start: 06-05-2022 End: 08-05-2022 Comprehensive metabolic 2000 panel - Serum or Plasma COMP METABOLIC PANEL Lab Routine Anemia, normocytic normochromic Expected: 06/05/2022 (Approximate), Expires: 08/05/2022 [facility] Work Phone: Comment on above: Expected: 06/05/2022 (Approximate), Expires: 08/05/2022 Start: 05-26-2022 End: 07-26-2022 CBC W Auto Differential panel - Blood CBC + DIFF Lab Routine Anemia, normocytic normochromic Expected: 05/26/2022, Expires: 07/26/2022 [facility] Work Phone: Comment on above: Expected: 05/26/2022 , Expires: 07/26/2022 Start: 05-26-2022 End: 07-26-2022 Comprehensive metabolic 2000 panel - Serum or Plasma COMP METABOLIC PANEL Lab Routine Anemia, normocytic normochromic Expected: 05/26/2022, Expires: 07/26/2022 [facility] Work Phone: Comment on above: Expected: 05/26/2022 , Expires: 07/26/2022 Start: 05-26-2022 End: 07-26-2022 Ferritin [Mass/volume] in Serum or Plasma FERRITIN BLD Lab Routine Anemia, normocytic normochromic Expected: 05/26/2022, Expires: 07/26/2022 [facility] Work Phone: Comment on above: Expected: 05/26/2022 , Expires: 07/26/2022 Start: 05-26-2022 End: 07-26-2022 Iron and Iron binding capacity panel - Serum or Plasma IRON + TIBC Lab Routine Anemia, normocytic normochromic Expected: 05/26/2022, Expires: 07/26/2022 [facility] Work Phone: Comment on above: Expected: 05/26/2022 , Expires: 07/26/2022 Start: 05-22-2022 End: 07-22-2022 Cobalamin (Vitamin B12) [Mass/volume] in Serum or Plasma [facility] Work Phone: Comment on above: Expected: 05/22/2022 , Expires: 07/22/2022 Start: 05-22-2022 End: 05-22-2023 Ferritin [Mass/volume] in Serum or Plasma [facility] Work Phone: Comment on above: Expected: 05/22/2022 , Expires: 05/22/2023 Start: 05-22-2022 End: 07-22-2022 Folate [Mass/volume] in Serum or Plasma [facility] Work Phone: Comment on above: Expected: 05/22/2022 , Expires: 07/22/2022 Start: 05-22-2022 End: 05-22-2023 Iron and Iron binding capacity panel - Serum or Plasma [facility] Work Phone: Comment on above: Expected: 05/22/2022 , Expires: 05/22/2023 Start: 05-22-2022 End: 07-22-2022 MONOCLONAL PROTEIN, SERUM (BLOOD) [facility] Work Phone: Comment on above: Expected: 05/22/2022 , Expires: 07/22/2022 Start: 05-22-2022 End: 07-22-2022 PROTEIN ELECT CHRISTEN UR W/INTERP [facility] [facility] Work Phone: Comment on above: Expected: 05/22/2022 , Expires: 07/22/2022 Start: 05-07-2022 Influenza vaccination INFLUENZA (#1) [facility] Start: 09-06-2021 DEPRESSION ASSESSMENT DEPRESSION ASS ESSMENT [facility] Start: 06-04-2017 Adult depression screening assessment DEPRESSION SCREENING [facility] Start: 01-09-2014 Administration of varicella zoster vaccine Zoster (Shingles) Vaccine (1 of 2) [facility] Start: 01-09-2014 SHINGRIX VACCINE (1 of 2) FERGUSON GRIX VACCINE (1 of 2) [facility] Start: 01-09-2009 COLOGUARD (FIT-DNA) COLOGUARD (FIT-D NA) [facility] Start: 01-09-2009 Colonoscopy COLONOSCOPY [facility] Start: 01-09-2009 COLORECTAL CANCER SCREENING COLORECTAL CANCER SCREENING [facility] Start: 01-09-[address] COLONOGRAPHY [facility] Start: 01-09-2009 DIABETES SCREEN DIABETES SCREEN [facility] Start: 01-09-2009 Diabetes Screening Diabetes Screenin g [facility] Start: 01-09-2009 FECAL OCCULT BLOOD FECAL OCCULT BLOO D [facility] Start: 01-09-2009 Lipid 1996 panel - S elissa or Plasma Lipid Screening [facility] Start: 01-09-2009 Lipid panel Lipid Screening [facility] Start: 01-09-2009 LIPID SCREEN LIPID SCREEN [facility] Start: 01-09-2009 Screening for malign ant neoplasm of colon [facility] Start: 01-09-2009 SIGMOIDOSCOPY SIGMOIDOSCOPY [facility] Start: 2004 Mammography [facility] Start: 01-09-1994 HPV TESTING HPV TESTING [facility] Start: 01-09-1994 Zoledronic acid therapy ALPHA- 1 ANTITRYPSIN DEFICIENCY SCREENING [facility] Start: 01-09-1985 PAP TESTING PAP TESTING [facility] Start: 01-09-1985 Screening for malign ant neoplasm of cervix [facility] Start: 01-09-1983 DTaP,Tdap and Td Vac cines (1 - Tdap) DTaP,Tdap and Td Vaccines (1 - Tdap) [facility] Start: 01-09-1983 Shingrix Vaccine (1 of 2) Ferguson grix Vaccine (1 of 2) [facility] Start: 01-09-1983 Urine microalbumin profile [facility] Start: 01-09-1982 ANNUAL PCP TEAM SWITCHER ALLEN DISEASE VISIT ANNUAL PCP TEAM CHRONIC DISEASE VISIT [facility] Start: 01-09-1982 Depression Screening Depression Scre ening [facility] Start: 01-09-1982 HEPATITIS C SCREENING HEPATITIS C [facility] Start: 01-09-1982 Hepatitis C screening Hepatitis C [facility] Start: 01-09-1982 HIV SCREENING HIV SCREENING [facility] Start: 01-09-1982 HIV screening HIV Screening [facility] Start: 01-09-1970 PNEUMOCOCCAL (1 - PCV) PNEUMOCOCCAL (1 - PCV) [facility] Start: 01-09-1969 Covid-19 Vaccine (#1) Covid-19 Vacci ne (#1) [facility] Start: 1964 COVID-19 VACCINE (#1) COVID-19 VACCI NE (#1) [facility] Start: 1965 HEPATITIS B (1 of 3 - 3-dose series) HEPATITIS B (1 of 3 - 3-dose series) [facility] End: 11-16-2024 C difficile by PCR C difficile by PCR Lab Routine Diarrhea of presumed infectious origin 1 Occurrences starting 11/17/2023 until 11/16/2024 [facility] Comment on above: 1 Occurrences starti ng 11/17/2023 until 11/16/2024 End: 04-22-2025 CT Abdomen W contrast IV CT ABDOMEN W IVCON Radiology Routine 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) 1 Occurrences starting 03/23/2024 until 04/22/2025 [facility] Comment on above: 1 Occurrences starti ng 03/23/2024 until 04/22/2025 End: 04-22-2025 CT Chest W contrast IV CT CHEST W IVCON Radiology Routine 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) 1 Occurrences starting 03/23/2024 until 04/22/2025 [facility] Comment on above: 1 Occurrences starti ng 03/23/2024 until 04/22/2025 CT Guidance for radi ation treatment of Unspecified body region CT SIM PLANNING RADIATION ONCOLOGY Radiology Routine 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) Ordered: 05/05/2024 [facility] Work Phone: Comment on above: Ordered: 05/05/2024 End: 11-16-2024 GI Panel(stool pathogen panel) GI Panel(stool pathogen panel) Lab Routine Diarrhea of presumed infectious origin 1 Occurrences starting 11/17/2023 until 11/16/2024 [facility] Work Phone: Comment on above: 1 Occurrences starti ng 11/17/2023 until 11/16/2024 IR PORTOCATH PLACEMENT IR PORTOC ATH PLACEMENT Radiology Routine Ordered: 04/18/2024 [facility] Work Phone: Comment on above: Ordered: 04/18/2024 IR PORTOCATH PLACEMENT IR PORTOC ATH PLACEMENT Radiology Routine Malignant neoplasm of cardia (HCC) Ordered: 04/20/2024 [facility] Work Phone: Comment on above: Ordered: 04/20/2024 PAIN PANEL, UR QUANT PAIN PANEL, UR QUANT Lab Routine 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) Opioid contract exists 04/14/2024 9:31 AM EDT [facility] End: 04-22-2025 PET+CT Guidance for localization of tumor of Skull base to mid-thigh-- W 18F-FDG IV NM PET/CT SKULL-THIGH INITIAL Radiology Routine 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) 1 Occurrences starting 03/23/2024 until 04/22/2025 [facility] Comment on above: 1 Occurrences starti ng 03/23/2024 until 04/22/2025 SPECIMEN VALIDITY, URINE SPECIME N VALIDITY, URINE Lab Routine 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) Opioid contract exists 04/14/2024 9:31 AM EDT [facility] Immunizations Immunization Date Immunization Notes Care Provider Mary mack 06-13-2022 Influenza, injectabl e, Madin [place] Canine Kidney, preservative free, quadrivalent Kostas Furlong DO Work Phone: [employer] 06-13-2022 Pneumococcal Conjuga te 20-valent Kostas Furlong DO Work Phone: [facility] 06-13-2022 influenza virus vaccine, unspecified formulation Kostas Furlong DO Work Phone: [facility] 11-11-2021 Influenza, injectabl e, Madin [place] Canine Kidney, preservative free, quadrivalent Ignacio Sam MD Work Phone: [facility] 11-11-2021 pneumococcal polysaccharide vaccine, 23 valent Ignacio Sam MD Work Phone: [facility] 11-11-2021 influenza virus vaccine, unspecified formulation Ct (I-Stat) [facility] 09-06-2020 influenza, seasonal, injectable Ignacio Sam MD Work Phone: [facility] 07-21-2020 influenza, seasonal, injectable Kostas Furlong DO Work Phone: [facility] 07-02-2020 influenza, injectabl e, quadrivalent, contains preservative Kostas Furlong DO Work Phone: [facility] 06-14-2019 influenza, injectabl e, quadrivalent, contains preservative Kostas Furlong DO Work Phone: [facility] 06-14-2019 pneumococcal polysaccharide vaccine, 23 valent Kostas Furlong DO Work Phone: [facility] 06-28-2017 Influenza, injectabl e, Madin Se[place] Canine Kidney, preservative free, quadrivalent Ignacio Sam MD Work Phone: [facility] 07-17-2015 influenza, seasonal, injectable, preservative free Ignacio Sam MD Work Phone: [facility] 07-27-2014 influenza, seasonal, injectable, preservative free Ignacio Sam MD Work Phone: [facility] 06-06-2014 influenza, injectabl e, quadrivalent, preservative free Brynn Holliday Other [facility] Other 07-11-2013 influenza virus vaccine, whole virus Kostas Steward DO Work Phone: [facility] Payers Date Payer Category Payer Self-pay 2013 Medicaid [id number] 1964 Unknown [id number] 2.16.84 0.1.152811.3.579.2.593 1964 Unknown [id number] 2.16.84 0.1.992248.3.579.2.593 1964 Unknown [id number] 2.16.84 0.1.337236.3.579.2.593 1964 Unknown [id number] 2.16.84 0.1.545176.3.579.2.593 1964 Unknown [id number] 2.16.84 0.1.727690.3.579.2.593 1964 Unknown [id number] 2.16.84 0.1.534838.3.579.2.593 1964 Unknown [id number] 2.16.84 0.1.832537.3.579.2.593 1964 Unknown [id number] 2.16.84 0.1.212907.3.579.2.593 1964 Unknown [id number] 2.16.84 0.1.666749.3.579.2.593 1964 Unknown [id number] 2.16.84 0.1.672724.3.579.2.593 1964 Unknown [id number] 2.16.84 0.1.461834.3.579.2.593 1964 Unknown [id number] 2.16.84 0.1.392954.3.579.2.593 1964 Unknown [id number] 2.16.84 0.1.653945.3.579.2.593 1964 Unknown [id number] 2.16.84 0.1.556118.3.579.2.593 1964 Unknown [id number] 2.16.8 40.1.343527.3.579.2.1285 1964 Unknown [id number] 2.16.8 40.1.150011.3.579.2.1285 1964 Unknown [id number] 2.16.8 40.1.185634.3.579.2.1285 1964 Unknown [id number] 2.16.840 .1.777698.3.579.2.1285 1964 Unknown [id number] 2.16. 840.1.198911.3.579.2.175 1964 Unknown [id number] 2.16.8 40.1.155179.3.579.2.1285 1964 Unknown [id number] 2.16.8 40.1.309218.3.579.2.1285 1964 Unknown [id number] 2.16.8 40.1.235269.3.579.2.1285 1964 Unknown [id number] 2.16.8 40.1.226903.3.579.2.1285 1964 Unknown [id number] 2.16.8 40.1.211698.3.579.2.1285 1964 Unknown [id number] 2.16.8 40.1.152703.3.579.2.1285 1964 Unknown [id number] 2.16.8 40.1.094558.3.579.2.1285 1964 Unknown [id number] 2.16.8 40.1.397666.3.579.2.1285 1964 Unknown [id number] 2.16.8 40.1.340279.3.579.2.1285 1964 Unknown [id number] 2.16.8 40.1.114643.3.579.2.1285 1964 Unknown [id number] 2.16.8 40.1.261720.3.579.2.1285 1964 Unknown [id number] 2.16.8 40.1.000453.3.579.2.1285 1964 Unknown [id number] 2.16.8 40.1.753850.3.579.2.1285 1964 Unknown [id number] 2.16.8 40.1.276671.3.579.2.1285 1964 Unknown [id number] 2.16.8 40.1.437802.3.579.2.1285 1964 Unknown [id number] 2.16.840 .1.224783.3.579.2.1285 1964 Unknown [id number] 2.16.8 40.1.900162.3.579.2.1285 1964 Unknown [id number] 2.16.8 40.1.818156.3.579.2.1285 1964 Unknown [id number] 2.16.8 40.1.422056.3.579.2.1285 1964 Unknown [id number] 2.16.8 40.1.586008.3.579.2.1285 1964 Unknown [id number] 2.16.8 40.1.608819.3.579.2.1285 1964 Unknown [id number] 2.16.8 40.1.153850.3.579.2.1286 1959 Self-pay [id number] 1959 Unknown [id number] 2.1 6.840.1.511502.19 1959 Unknown [id number] Unknown [id number] 2.16.8 40.1.468639.3.579.2.531 Social History Date Type Detail Facility Unknown if ever smoked [facility] Other Start: 12-03-2020 End: 05-30-2024 Sex Assigned At [facility] [employer] Other Start: 10-26-2013 End: 05-22-2022 Tobacco smoking status NHIS Never smoked tobacco [facility] Start: 10-26-2013 End: 05-22-2022 Tobacco use and exposure Smokeless tobacco non-user [facility] Start: 05-21-2022 End: 05-25-2024 Alcohol intake Current non-drinker of alcohol (finding) [facility] Start: 1965 Sex Assigned At Not on file [facility] History of tobacco use Passive smoker [facility] Start: 12-30-2020 End: 05-25-2022 Exposure to SARS-CoV-2 (event) Not sure [facility] Start: 12-03-2020 End: 05-30-2024 History of Social function [facility] National Score (1-10 0), lower number is lower risk Not on file [facility] Start: 08-23-2023 Alcohol intake Ex-drinker (finding) [employer] Has the [employer], or [employer] threatened to shut off services in your home in past 12Mo No [employer] Are you now , , , , never or living with a partner? [employer] How often to you hav e a drink containing alcohol? Never [employer] How hard is it for y ou to pay for the very basics like food, housing, medical care, and heating Hard [employer] Do you feel stress - tense, restless, nervous, or anxious, or unable to sleep at night because your mind is troubled all the time - these days [OSQ] Rather much [employer] Medical Equipment Procedure Code Equipment Code Equipment Origin al Text Equipment Identifier Dates [employer] I sp Groshong 8fr Titanium Implantable Infusion Custom - [id number] Start: 04-25-2024 Filter Celect Navalign 30mm 7fr 65cm [place] Hydrophilic 49mm 79cm - [id number] Start: 05-04-2024 Clinical Notes 06-02-2021 to 06-01-2024 Telephone Encounter - Lise Connolly RN - 06/01/2024 12:23 PM EDTTelephone Encounter - Lise Connolly RN - 06/01/2024 12:23 PM EDTTelephone Encounter - NancyBrie strangedi - 05/30/2024 12:07 PM EDT Note Date & Type Note Facility 06-01-2024 Telephone encounter Note 2nd call placed to pt. No answer. Message left requesting call back. Lise Connolly RN [facility] Work Phone: 06-01-2024 Miscellaneous Notes 2nd call placed to pt. No answer. Message left requesting call back. Lise Connolly RN Voicemail message received from pt informing office that she is not going to make today's appointment and requesting refill of her pain patches. Call placed to pt. No answer. Message left requesting call back. Lise Connolly RN documented in this encounter [facility] 05-31-2024 Telephone encounter Note SCHEDULED VIRTUAL VISIT FOLLOW UP ON 06/21 SPK W/ PT ON 05/31, AGREED TO DOS. [facility] 05-31-2024 Miscellaneous Notes SCHEDULED VIRTUAL VISIT FOLLOW UP ON 06/21 SPK W/ PT ON 05/31, AGREED TO DOS. INTERVENTIONAL RADIOLOGY PATIENT APPOINTMENT REQUEST May 25, 2024 Kaya Schilling [id number] Request: Schedule Requestor: Jasmine Simpson APRN.CNP Ref.Physician:Raul TORRES Physician: Raul Procedure/Request: virtual visit (patient preference) or telephone visit Reason/ICD Code: s/p IVC filter Priority: routine Scheduling Comments: please schedule within the next 2- 4 weeks follow up visit. Does MD need to be present for consult?: CARLI only IR Procedure Room: N/A Equipment or Vendor Request: No / N/A Anticipated length of procedure (not including prep or Anesthesia): NA Pre-Procedure Orders: n/a Sedation: NA Bed Reservation: NA Location of Procedure: NA documented in this encounter [facility] 05-31-2024 Telephone encounter Note Voicemail message received from pt informing office that she is not going to make today's appointment and requesting refill of her pain patches. Call placed to pt. No answer. Message left requesting call back. Lise Connolly RN [facility] 05-30-2024 Telephone encounter Note Pall med appt cancelled per request. [facility] 05-30-2024 Miscellaneous Notes Pall med appt cancelled per request. Images from the original note were not included. April Frye RN You; Beto Vivar MD; Gisselle Bryant APRN.CNP; Rebekah [employer] [place]; Lillie Richter APRN.CNP12 minutes ago (11:33 AM) SM Spoke with [facility] and patient was admitted under their service yesterday 05/29/2024. Sheduling, please cancel future Pall Med appt with Ann Richter CNP. April Roblero FYI: Spoke w/ pt who reports she was not aware of today's appointments. Pt mentioned hospice was out to see her yesterday. Asked pt if she signed on w/ hospice, pt states, I think so. Hospice and current goals of care discussed w/ pt. Explained to pt that while on hospice we would forgo any plans for chemotherapy. Informed pt that she would only need to see us on an as needed basis. Pt verbalizes understanding and agrees. States that she would like to proceed w/ hospice at this time. Call placed to [facility] to verify enrollment. No answer. Message left requesting call back. Lise Connolly RN Patient did not show for appts today. Roberta Vaughan documented in this encounter [facility] 05-30-2024 Telephone encounter Note Images from the original note were not included. April Frye RN You; Beto Vivar MD; Gisselle Bryant APRN.INS[employer]OR [employer]; [place] [employer] [place]; Lillie Richter APRN.LUPILLO12 minutes ago (11:33 AM) Spoke with [facility] and patient was admitted under their service yesterday 05/29/2024. Sheduling, please cancel future Pall Med appt with Ann Richter CNP. April Roblero [facility] Work Phone: 05-30-2024 Telephone encounter Note FYI: Spoke w/ pt who reports she was not aware of today's appointments. Pt mentioned hospice was out to see her yesterday. Asked pt if she signed on w/ hospice, pt states, I think so. Hospice and current goals of care discussed w/ pt. Explained to pt that while on hospice we would forgo any plans for chemotherapy. Informed pt that she would only need to see us on an as needed basis. Pt verbalizes understanding and agrees. States that she would like to proceed w/ hospice at this time. Call placed to [facility] to verify enrollment. No answer. Message left requesting call back. Lise Connolly, RN [facility] 05-30-2024 Telephone encounter Note Patient did not show for appts today. Roberta Vaughan T [facility] 05-25-2024 Telephone encounter Note INTERVENTIONAL RADIOLOGY PATIENT APPOINTMENT REQUEST May 25, 2024 Kaya Schilling [id number] Request: Schedule Requestor: Jasmine Simpson APRN.[employer] Ref.Physician:Raul TORRES Physician: Raul Procedure/Request: virtual visit (patient preference) or telephone visit Reason/ICD Code: s/p IVC filter Priority: routine Scheduling Comments: please schedule within the next 2- 4 weeks follow up visit. Does MD need to be present for consult?: CARLI only IR Procedure Room: N/A Equipment or Vendor Request: No / N/A Anticipated length of procedure (not including prep or Anesthesia): NA Pre-Procedure Orders: n/a Sedation: NA Bed Reservation: NA Location of Procedure: NA [facility] Work Phone: 05-24-2024 Note [facility] 05-24-2024 History of Present illness Narrative PATIENT NAME: Kaya Schilling DATE: 05/25/2024 PRIMARY CARE PHYSICIAN: Kostas Steward DO OTHER PHYSICIANS: Dr. Cong Montano, Dr. Ramires (Psych in [place]) Portions of this encounter note have been copied from the note from 05/02/2024 and has been updated where appropriate, and reflect my current medical decision making from today. CC: This is a 59 year old female with recently diagnosed metastatic gastric cancer, seen for scheduled follow-up. INTERIM HISTORY: Since the patient's initial last visit here she was hospitalized 04/30/2024 for upper GI bleeding with severe anemia. She was initially hospitalized at [facility] in [place], and subsequently transferred to [facility] [place]. Initial EGD revealed extensive gastric bleeding from her underlying tumor. She had been on Eliquis which was discontinued. Subsequently she underwent placement of an IVC filter on 05/04/2024. She received palliative radiation to the stomach 05/05/2024 through 05/10/2024 (2000 cGy in 5 fractions). She was discharged to home 05/13/2024. Since discharge she has remained relatively stable. She has chronic pain and currently is on multiple narcotics. She has persistent nausea and intermittent vomiting. No further signs of bleeding. No recent fevers or signs of infection. The patient and her family are well aware of her poor prognosis. She recently discussed not receiving chemotherapy and entering hospice. She was seen by hospice as an outpatient, and ultimately elected not to pursue hospice and currently requests chemotherapy as initially discussed. MEDICATIONS: Current Outpatient Medications Medication Sig buprenorphine (BUTRANS) 20 mcg/hour transdermal patch Apply 1 Patch as directed one time a week for 30 days. Patient should start on May 22, 2024. HYDROcodone-Acetaminophen (NORCO) 10-325 mg per tablet Take 1 tablet by mouth every 6 hours as needed for pain for up to [address] (PROTONIX) 40 mg tablet Take 1 tablet by mouth daily at 6 am. senna (SENOKOT) 8.6 mg tab Take 1 tablet by ORAL/FEEDING TUBE route two times a day. polyethylene glycol 3350 17 gram packet Take 1 Packet by mouth two times a day. Dissolve dose in 4 - 8 ounces of liquid and take as directed. promethazine (PHENERGAN) 25 mg tablet Take 1 tablet by mouth every 6 hours as needed for nausea/vomiting. lithium carbonate (ESKALITH) 300 mg capsule Take 1 capsule by mouth daily at bedtime. levothyroxine (SYNTHROID) 112 mcg tablet Take 1 tablet by mouth daily at 6 am. linaCLOtide (LINZESS) 290 mcg capsule Take 1 capsule by mouth once daily. OLANZapine (ZYPREXA) 10 mg tablet TAKE 1 TABLET BY MOUTH EVERYDAY AT BEDTIME naloxone 4 mg/actuation nasal spray (NARCAN) Use 1 spray in one nostril as needed for overdose. May repeat every 2 to 3 min in alternating nostrils until medical assistance is available zolpidem (AMBIEN) 5 mg tablet TAKE ONE TABLET BY MOUTH DAILY AT BEDTIME NEEDED FOR SLEEP glipiZIDE (GLUCOTROL XL) 10mg 24 hr tablet Take 10 mg by mouth once daily. losartan (COZAAR) 100 mg tablet Take 100 mg by mouth once daily. montelukast (SINGULAIR) 10 mg tablet Take 10 mg by mouth as needed. metFORMIN (GLUCOPHAGE) 1,000 mg tablet [...] broken nose had septoplasty Manic depression ([facility] Dr. Rees Midline low back [...] OF SYSTEMS: As listed PHYSICAL EXAM: BP 149/81 Pulse 69 Temp 36.3 C (97.3 F) (Temporal) Resp 16 Ht 165.1 cm (5' 5 ) Wt 49.3 kg (108 lb 11 oz) LMP 05/28/2016 SpO2 98% BMI 18.09 kg/m ECOG 2 GENERAL EXAM: Well developed/well [...] soft tissue swelling, and atrophy. PATHOLOGY: 03/23/2024 [id number] NGS analysis MSI high not detected. No actionable mutations. 03/02/2024 Cardia mass biopsy ([facility]) Invasive adenocarcinoma, intestinal type, low-grade HER2 2+ (equivocal), FISH negative. MMR intact LABS: Hemoglobin (g/dL) Date Value 05/25/2024 11.4 03/11/2015 13.3 Hematocrit (%) Date Value 05/25/2024 33.1 03/11/2015 39.2 WBC (k/uL) Date Value 05/25/2024 5.49 03/11/2015 6.56 Platelet Count (k/uL) Date Value 05/25/2024 197 03/11/2015 464 RADIOLOGY/OTHER STUDIES: 05/07/2024 CT abdomen/pelvis IMPRESSION: No active contrast extravasation to suggest acute hemorrhage. Wall thickening and enhancement of the duodenum and proximal jejunum, consistent with enteritis. Redemonstrated gastric mass with local extension and manda metastases. Indeterminate left multicystic adnexal lesion, suspicious for neoplastic process although not FDG avid on 04/06/2024. 04/06/2024 CT abdomen/pelvis IMPRESSION: 1. Since 11/18/2013, [...] suspicious for osseous metastases. 02/13/2024 Chest CTA ([facility]) Acute pulmonary embolism involving segmental branches of the left upper lobe and interlobar and segmental branches of right middle and lower lobes. 2.6 x 5.6 cm enhancing intraluminal mass along the lesser curvature suspicious for gastric cancer Gastrohepatic ligament lymphadenopathy representing metastasis 11/19/2023 CT abdomen/pelvis ([facility]) Mild wall thickening of the colon [...] (primary diagnosis) The patient presented 02/13/2024 to [facility] emergency room for evaluation of left sided chest pain and abdominal pain, at which time a chest CTA revealed a gastric mass. EGD 03/02/2024 revealed a malignant tumor at the gastric cardia. Biopsy revealed adenocarcinoma consistent with gastric primary. Final pathology revealed HER2 negative, MMR intact. [id number] revealed no actionable mutations. Staging PET scan and repeat CT scans revealed extensive progressive disease involving her stomach, widespread malignant adenopathy, and suspected bone metastases. For gastric bleeding the patient received palliative radiation therapy to the stomach 05/05/2024 through 05/10/2024 (2000 cGy in 5 fractions). Options for further management were discussed at length with the patient today. She is aware that her overall prognosis is poor. There are no indications for surgery or additional radiation at this time. Standard of care is palliative chemotherapy. The patient made it clear today that she would like to proceed as initially planned. She will return next week to start. Because of her poor performance status we will start a dose reduction and increase as tolerated. For nausea and vomiting she will receive IV fluids and IV antiemetics today. 2. Pulmonary embolism (HCC) - ICD9: 415.19, ICD10: I26.99 Chest CTA obtained 02/13/2024 for evaluation of pain revealed multiple pulmonary emboli. Anticoagulation with Eliquis started at the time of diagnosis. April 2024 the patient developed upper GI bleeding from underlying tumor, exacerbated by Eliquis. Eliquis discontinued. IVC filter placed 05/04/2024. 3. Type 2 diabetes mellitus (HCC) - [...] has been started on parenteral B12 replacement. She received IV iron with Venofer x 3 completed 04/14/2024. For now the patient will continue B12 1 mg IM monthly. Will monitor iron stores and give additional IV iron as indicated. 8. Cancer related pain - ICD9: 338.3, ICD10: G89.3 The patient has a long history diffuse pain. Progressive abdominal pain since diagnosis of gastric cancer March 2024. The patient has been referred to [facility] palliative medicine for management. 9. Hypercalcemia of malignancy - ICD9: 275.42, ICD10: E83.52 Labs obtained 04/18/2024 revealed significant hypercalcemia, most likely secondary to metastatic disease. Aredia given 04/18/2024 with improvement. Will give additional treatment if hypercalcemia recurs. Beto Vivar MD CC: Dr. Cong Montano documented in this encounter [facility] 05-24-2024 Telephone encounter Note Spoke w/ pt who is aware of tomorrow's appointment w/ Dr Vivar. States that she is still undecided about treatment, but plans to keep the appointment as scheduled. Lise Connolly RN [facility] Work Phone: 05-24-2024 Miscellaneous Notes Spoke w/ pt who is aware of tomorrow's appointment w/ Dr Vivar. States that she is still undecided about treatment, but plans to keep the appointment as scheduled. Lise Connolly RN Call placed to pt for follow up. No answer. Message left requesting call back. Lise Connolly RN documented in this encounter [facility] 05-24-2024 Telephone encounter Note Call placed to pt for follow up. No answer. Message left requesting call back. Lise Connolly RN [facility] 05-23-2024 Note HNO ID: [id number] Author: JORGE ROY DO Service: ? Author Type: Physician Type: Progress Notes Filed: 05/23/2024 10:31 Note Text: See IP chart. [facility] 05-23-2024 History of Present illness Narrative See IP chart. documented in this encounter [facility] 05-22-2024 Telephone encounter Note FYI: Madison from [facility] reports that she reached out to pt regarding referral. Pt was in the ER last night after falling at home. Twisted her ankle and sliced her finger. Madison reports there is food and trash scattered throughout pt's house. Pt is failing to thrive at home. Discussed hospice w/ pt. Even offered to admit to [facility], but pt declined the offer. Pt stated she was not ready to . Madison messaged pt's 2 children and requested a meeting w/ them and the pt to discuss hospice services further. Explained to Madison that pt is hospice appropriate from our standpoint. Informed her that we've made several attempts to get pt into the office to discuss treatment, but pt states she is undecided each time. Will follow up w/ pt today to discuss hospice as well. Theresa: Please scan records from [facility] ER. Lise Connolly RN [facility] Work Phone: 05-22-2024 Miscellaneous Notes FYI: Madison from [facility] reports that she reached out to pt regarding referral. Pt was in the ER last night after falling at home. Twisted her ankle and sliced her finger. Madison reports there is food and trash scattered throughout pt's house. Pt is failing to thrive at home. Discussed hospice w/ pt. Even offered to admit to [facility], but pt declined the offer. Pt stated she was not ready to . Madison messaged pt's 2 children and requested a meeting w/ them and the pt to discuss hospice services further. Explained to Madison that pt is hospice appropriate from our standpoint. Informed her that we've made several attempts to get pt into the office to discuss treatment, but pt states she is undecided each time. Will follow up w/ pt today to discuss hospice as well. Theresa: Please scan records from [facility] ER. Lise Connolly RN documented in this encounter [facility] 05-19-2024 Telephone encounter Note Pt calls requesting pain patches. Notes that she is in excruciating pain. Refuses to go to the ER. Explained to pt that she will need to contact [facility] regarding her pain meds. Phone number provided to pt. Pt verbalizes understanding and thanks this RNCC for the information. Lise Connolly RN [facility] Work Phone: 05-19-2024 Miscellaneous Notes Pt calls requesting pain patches. Notes that she is in excruciating pain. Refuses to go to the ER. Explained to pt that she will need to contact [facility] regarding her pain meds. Phone number provided to pt. Pt verbalizes understanding and thanks this RNCC for the information. Lise Connolly RN Voicemail [...] Lise Connolly RN documented in this encounter [facility] 05-19-2024 Miscellaneous Notes PDMP website checked and validated. All prescriptions have been APPROPRIATELY filled. No suspicious activity was identified. 05/19/2024 by Nalini Hancock APRN.[employer] Rx sent Nalini Hancock APRN.[employer] Patient requesting refills as follows: Patient asked oncology for hospice. They placed order 05/15. She did not sign first meeting. This nurse spoke with Anais at [facility] and confirmed patient has another scheduled meeting with them tomorrow at 10 am. Last ordered 04/24/2024 and 05/11/2024 for a [address] Mariposa bonds. Next scheduled follow up appointment 05/31/2024 with Ann Richter CNP. Requested Prescriptions Pending Prescriptions Disp Refills buprenorphine (BUTRANS) 20 mcg/hour transdermal patch 4 Patch 0 Sig: Apply 1 Patch as directed one time a week for 30 days. HYDROcodone-Acetaminophen (NORCO) 10-325 mg per tablet 28 tablet 0 Sig: Take 1 tablet by mouth every 6 hours as needed for pain for up to 7 days. April Frye RN May 19, 2024 Kaya Hailey Schilling is calling today regarding Refill Request. Patient has been identified by name and birthdate. Requesting delivery method: call/escript to: [place], [place] Additional Concern: N/A Requesting response back: N/A, no action needed [phone] (home) Nj Perkins May 19, 2024 documented in this encounter [facility] 05-19-2024 Telephone encounter Note PDMP website checked and validated. All prescriptions have been APPROPRIATELY filled. No suspicious activity was identified. 05/19/2024 by Nalini Hancock APRN.CNP Rx sent Nalini Hancock APRN.CNP [facility] 05-19-2024 Telephone encounter Note Patient requesting refills as follows: Patient asked oncology for hospice. They placed order 05/15. She did not sign first meeting. This nurse spoke with Anais at [facility] and confirmed patient has another scheduled meeting with them tomorrow at 10 am. Last ordered 04/24/2024 and 05/11/2024 for a [address] Mariposa bonds. Next scheduled follow up appointment 05/31/2024 with Ann Richter CNP. Requested Prescriptions Pending Prescriptions Disp Refills buprenorphine (BUTRANS) 20 mcg/hour transdermal patch 4 Patch 0 Sig: Apply 1 Patch as directed one time a week for 30 days. HYDROcodone-Acetaminophen (NORCO) 10-325 mg per tablet 28 tablet 0 Sig: Take 1 tablet by mouth every 6 hours as needed for pain for up to 7 days. April Frye RN May 19, 2024 [facility] 05-19-2024 Telephone encounter Note Kaya Hailey Schilling is calling today regarding Refill Request. Patient has been identified by name and birthdate. Requesting delivery method: call/escript to: [facility], [place] Additional Concern: N/A Requesting response back: N/A, no action needed [phone] (home) Nj Perkins May 19, 2024 [facility] 05-18-2024 Telephone encounter Note Voicemail message received from pt' requesting her pain patches. Call placed to pt's home number as requested per pt. No answer. Message left requesting call back. Lise Connolly RN [facility] 05-17-2024 Telephone encounter Note Voicemail message received from pt requesting to speak w/ nurse regarding her pain medication. Call placed to pt's home number. Call would not go through. Unable to leave a message. Call placed to pt's mobile number. Voicemail is full and not accepting messages. Lise Connolly RN [facility] 05-17-2024 History of Present illness Narrative KAYA SCHILLINGPavan [id number] 05/17/2024 [facility] Department of Radiation Oncology [facility] RADIATION ONCOLOGY: COMPLETION NOTE DATE OF SIMULATION: 05/04/2024 DATES OF TREATMENT: 05/05/2024 to 05/10/2024 TREATMENT MACHINE: [employer] TREATMENT AREA: Stomach DIAGNOSIS: 59 year old [...] M.D 45:23 PM documented in this encounter [facility] 05-17-2024 Note [facility] 05-16-2024 Telephone encounter Note Palliative Medicine Care [...] it was her that requested them per [facility] but said I can't remember everything being in this much pain. Advised she contact [facility] and provided her with their phone number [phone]. Let her know her oncology team already faxed to them the order and her records. Let her know they would provide more support and assess her pain so she can be more comfortable. Kaya agreed to call them now. April Frye RN May 16, 2024 12:49 PM [facility] 05-16-2024 Miscellaneous Notes Palliative Medicine Care Coordination [...] it was her that requested them per [facility] but said I can't remember everything being in this much pain. Advised she contact [facility] and provided her with their phone number [phone]. Let her know her oncology team already faxed to them the order and her records. Let her know they would provide more support and assess her pain so she can be more comfortable. Kaya agreed to call them now. April Frye RN May 16, 2024 12:49 PM Patient calling in extreme pain in abdomen . Return call to [phone] documented in this encounter [facility] 05-16-2024 Telephone encounter Note Patient calling in extreme pain in abdomen . Return call to [phone] [facility] 05-15-2024 Telephone encounter Note Notified Jolanta Koch for a sooner appointment with Dr. Vivar. Roberta Vaughan [facility] 05-15-2024 Miscellaneous Notes Notified Jolanta Koch for a sooner appointment with Dr. Vivar. Roberta Vaughan Spoke w/ pt who reports that she met w/ [facility] today, but did not sign on w/ their services. Pt still weak. Appetite is poor. Denies bleeding. Nausea, but no vomiting. Phenergan helps her nausea. Pt asks about refills for her patches. Informed pt that she will need to contact [facility] for refills since she did not sign on w/ hospice. Phone number provided. Clerical: Pt has f/u w/ [facility] on 06/05, but this should be moved up. Please reschedule and call pt w/ new appointment. Thanks! Lise Connolly RN DISCHARGE CALL BACK Today's date: May 12, 2024 Notified of Pt discharge by: Jolanta Patient discharged on 05/12/24 from [facility] to Home Primary Cancer Diagnosis: Metasstatic Gastric Cancer Admitting Diagnosis: Upper GI bleed Discharge Summary/SBAR reviewed: Yes Handoff Discussed with [employer] Boss: No, unavailable Psychosocial Risk Factors: None If patient discharged to SNF/Rehab Facility, phone call completed to reinforce discharge instructions and follow up: N/A Call Disposition: Provided call back number on patient's voice mail requesting a return call to discuss recent discharge,upcoming appts, and any issues. Lise Connolly RN documented in this encounter [facility] 05-15-2024 Telephone encounter Note Spoke w/ pt who reports that she met w/ [facility] today, but did not sign on w/ their services. Pt still weak. Appetite is poor. Denies bleeding. Nausea, but no vomiting. Phenergan helps her nausea. Pt asks about refills for her patches. Informed pt that she will need to contact [facility] for refills since she did not sign on w/ hospice. Phone number provided. Clerical: Pt has f/u w/ [facility] on 06/05, but this should be moved up. Please reschedule and call pt w/ new appointment. Thanks! Lise Connolly RN [facility] Work Phone: 05-15-2024 Telephone encounter Note Order and records faxed to [facility]. Lise Connolly RN [facility] 05-15-2024 Miscellaneous Notes Order and records faxed to [facility]. Lise Connolly RN [facility] requesting an order. [facility] pt contacted them expressing interest in their services. Order pended. Lise Connolly RN documented in this encounter [facility] 05-15-2024 Telephone encounter Note [facility] requesting an order. [facility] pt contacted them expressing interest in their services. Order pended. Lise Connolly RN [facility] 05-12-2024 Telephone encounter Note DISCHARGE CALL BACK Today's date: May 12, 2024 Notified of Pt discharge by: Jolanta Patient discharged on 05/12/24 from [facility] to Home Primary Cancer Diagnosis: Metasstatic Gastric Cancer Admitting Diagnosis: Upper GI bleed Discharge Summary/SBAR reviewed: Yes Handoff Discussed with [employer] Boss: No, unavailable Psychosocial Risk Factors: None If patient discharged to SNF/Rehab Facility, phone call completed to reinforce discharge instructions and follow up: N/A Call Disposition: Provided call back number on patient's voice mail requesting a return call to discuss recent discharge,upcoming appts, and any issues. Lise Connolly RN [facility] 05-11-2024 Note [facility] 05-11-2024 Note [facility] 05-11-2024 Telephone encounter Note Update: Pt still admitted at . Completed 5 of 5 palliative radiation treatments to her stomach. Looking at SNF placement once appropriate for discharge. Still looking for accepting facility. Lise Connolly RN [facility] Work Phone: 05-11-2024 Miscellaneous Notes Update: Pt [...] considered. Update: EGD conducted while inpatient at [facility] which showed Significant amount of blood with [...] stat for embolization. Patient was transferred to [facility] due to already being established with [facility] and needing higher level of care. Currently admitted at . Lise Connolly RN FYI: Pt present to [facility] ER on Wednesday w/ GI bleed. Hgb 6.2. Pt was transferred to [facility] in [place]. Per Care Everywhere, imaging in ER also noted a cystic ovarian mass concerning for malignancy. 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 Oncology saw pt who discussed hospice w/ pt. Pt remains conflicted on goals of care. Lise Connolly RN documented in this encounter [facility] 05-10-2024 Note [facility] 05-10-2024 Note [facility] 05-09-2024 Note [facility] 05-09-2024 Note [facility] 05-09-2024 Telephone encounter Note Pharmacy requesting 90 day supply Requested Prescriptions Pending Prescriptions Disp Refills OLANZapine (ZYPREXA) 10 mg tablet [Pharmacy Med Name: OLANZAPINE 10 MG TABLET] 90 tablet 1 Sig: TAKE 1 TABLET BY MOUTH EVERYDAY AT BEDTIME April Frye RN May 09, 2024 [facility] 05-09-2024 Miscellaneous Notes Pharmacy requesting 90 day supply Requested Prescriptions Pending Prescriptions Disp Refills OLANZapine (ZYPREXA) 10 mg tablet [Pharmacy Med Name: OLANZAPINE 10 MG TABLET] 90 tablet 1 Sig: TAKE 1 TABLET BY MOUTH EVERYDAY AT BEDTIME April Frye RN May 09, 2024 documented in this encounter [facility] 05-08-2024 Note [facility] 05-08-2024 Note [facility] 05-08-2024 Note [facility] 05-07-2024 Note [facility] 05-07-2024 Note [facility] 05-06-2024 Note [facility] 05-06-2024 Note [facility] 05-05-2024 Note [facility] 05-05-2024 Note [facility] 05-05-2024 Note [facility] 05-04-2024 Note [facility] 05-04-2024 Note [facility] 05-04-2024 Note [facility] 05-04-2024 Telephone encounter Note Thanks for the update. Clearly her cancer is progressing. If she is not amenable to surgery or systemic treatment hospice should be considered. [facility] 05-04-2024 Telephone encounter Note Update: EGD conducted while inpatient at [facility] which showed Significant amount of blood with [...] stat for embolization. Patient was transferred to [facility] due to already being established with [facility] and needing higher level of care. Currently admitted at . Lise Connolly RN [facility] 05-04-2024 History of Present illness Narrative KAYA SCHILLING Hailey [id number] 05/04/2024 [facility] Department of Radiation Oncology Treatment Planning Note [...] distribution, and/or ports and DVH. KAYA SCHILLING [id number] 05/04/2024 [facility] Department of Radiation Oncology [facility] RADIATION ONCOLOGY SIMULATION NOTE DATE OF SIMULATION: [...] cardoso if applicable. documented in this encounter [facility] 05-04-2024 Note [facility] 05-04-2024 Note [facility] 05-03-2024 Note [facility] 05-03-2024 Note [facility] 05-02-2024 Telephone encounter Note FYI: Pt present to [facility] ER on Wednesday w/ GI bleed. Hgb 6.2. Pt was transferred to [facility] in [place]. Per Care Everywhere, imaging in ER also noted a cystic ovarian mass concerning for malignancy. 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 Oncology saw pt who discussed hospice w/ pt. Pt remains conflicted on goals of care. Lise Connolly RN [facility] 04-28-2024 Telephone encounter Note Refilled for 05/02/24 Per oarrs Filled a 15 day rx on 04/18/24 [facility] 04-28-2024 Miscellaneous Notes Refilled for 05/02/24 Per [...] birthdate. Requesting delivery method: call/escript to: [place], [place] Additional Concern: N/A Requesting response back: N/A, no action needed [phone] (home) Nj Perkins April 28, 2024 documented in this encounter [facility] 04-28-2024 Telephone encounter Note Patient phones requesting refills as follows: Requested Prescriptions Pending Prescriptions Disp Refills HYDROcodone-Acetaminophen (NORCO) 10-325 mg per tablet 60 tablet 0 Sig: Take 1 tablet by mouth every 6 hours as needed for pain for up to 15 days. Please review and advise. Carmen Henson RN [facility] 04-28-2024 Telephone encounter Note Kaya Hailey Schilling is calling today regarding Refill Request. Patient has been identified by name and birthdate. Requesting delivery method: call/escript to: [facility], [place] Additional Concern: N/A Requesting response back: N/A, no action needed [phone] (home) Nj Perkins April 28, 2024 [facility] 04-27-2024 Telephone encounter Note Patient has an appt on 05/02/24. Would you like labs, if so place orders. Chana Rm MA [facility] 04-27-2024 Miscellaneous Notes Patient has an appt on 05/02/24. Would you like labs, if so place orders. Chana Rm MA documented in this encounter [facility] 04-27-2024 Telephone encounter Note Cxed appointment. [facility] 04-27-2024 Miscellaneous Notes Cxed appointment. Voicemail message [...] left requesting call back. Lise Connolly RN Call placed to Issa to arrange [...] calls a friend screaming saying someone from [facility] is calling me and I'm getting really upset and this is urgent and I need you to call me back randolph . Patient states she doesn't understand anything, needs help, and also mentioned hospice. Advised patient I would get her connected with our Coding Director Jackie and patient proceeded to say Jackie [...] Lise Connolly RN documented in this encounter [facility] 04-27-2024 Telephone encounter Note Voicemail message received from an unidentified caller. Purpose of message is to cancel tomorrow's education appointment. States that Kaya is refusing to go. Per caller, the pt states, No one can make me go. Caller did not leave a return phone number. Clerical: Please cancel tomorrow's education appointment. Lise Connolly RN [facility] Work Phone: 04-26-2024 Telephone encounter Note Returning patients call regarding post op care from port placement. No answer. Left message on home phone. Called mobile, no answer, and unable to leave message due to a full mailbox. [facility] 04-26-2024 Miscellaneous Notes Returning patients call regarding post op care from port placement. No answer. Left message on home phone. Called mobile, no answer, and unable to leave message due to a full mailbox. documented in this encounter [facility] 04-26-2024 Telephone encounter Note Call placed to pt to discuss treatment plans and goals of care. No answer. Voicemail is full and not accepting messages. Call placed to home number. No answer. Message left requesting call back. Lise Connolly RN [facility] 04-26-2024 Telephone encounter Note Call placed to [...] her appointment scheduled for Wednesday. Roberta Vaughan [facility] 04-26-2024 Telephone encounter Note Minal in Pathology notified. Lise Connolly RN [facility] Work Phone: 04-26-2024 Miscellaneous Notes Minal in Pathology notified. Lise Connolly RN All of them please. Based on insurance we cannot predict which agent they will allow. [facility] received our request for PD-L1 testing. Requests that you specify which PD-L1 you want. Pembrolizumab, Nivolumab, Atezolizumab...All of them? Lise Connolly RN documented in this encounter [facility] 04-26-2024 Telephone encounter Note All of them please. Based on insurance we cannot predict which agent they will allow. [facility] 04-26-[address] [facility] received our request for PD-L1 testing. Requests that you specify which PD-L1 you want. Pembrolizumab, Nivolumab, Atezolizumab...All of them? Lise Connolly RN [facility] 04-26-2024 Telephone encounter Note I spoke w/ [...] calls a friend screaming saying someone from [facility] is calling me and I'm getting really upset and this is urgent and I need you to call me back randolph . Patient states she doesn't understand anything, needs help, and also mentioned hospice. Advised patient I would get her connected with our Coding Director Jackie and patient proceeded to say Jackie [...] Issa at a later time. Roberta Vaughan [facility] 04-26-2024 Telephone encounter Note Collaborated with Ann Richter CNP. She will reach out to patient psychiatric provider and PCP regarding patient's unstable mental status. Plan will also be for Ann WESLEY to present patient at our [facility] meeting. April Frye RN April 26, 2024 8:42 AM [facility] 04-26-2024 Miscellaneous Notes Collaborated with Ann Richter CNP. She will reach out to patient psychiatric provider and PCP regarding patient's unstable mental status. Plan will also be for Ann WESLEY to present patient at our [facility] meeting. April Frye RN April 26, [...] 2024 8:23 AM documented in this encounter [facility] 04-26-2024 Telephone encounter Note Palliative Medicine Care [...] Frye RN April 26, 2024 8:23 AM [facility] 04-24-2024 Telephone encounter Note Pt did not show for her education appointment today. Call placed to pt for follow up. No answer @ home number. Unable to leave a message. No answer at mobile number. Voicemail is full and not accepting messages. Lise Connolly RN [facility] 04-24-2024 Telephone encounter Note Prior Authorization Documentation Prior authorization requested for the following medication: Medication: Butran 20 mcg TD patch Insurance Company Name: [employer] Phone number: [phone] Patient ID number: [id number] N OHRXPROD BIN [id number] Group ID N/A Harper [id number] Authorization approval #: [id number]. Dates of approval 04/24/2024 to 07/21/2024 Pharmacy Name: [facility] Telephone number: [phone] Pharmacy updated and patient had already picked up using discount care. Pharmacist will contact patient with any reimbursement OOP cost. Time Spent: 15 min. April Frye RN April 24, 2024 1:56 PM [facility] 04-24-2024 Miscellaneous Notes Prior Authorization Documentation Prior authorization requested for the following medication: Medication: Butran 20 mcg TD patch Insurance Company Name: [employer] Phone number: [phone] Patient ID number: [id number] N OHRXPROD BIN [id number] Group ID N/A Harper [id number] Authorization approval #: [id number]. Dates of approval 04/24/2024 to 07/21/2024 Pharmacy Name: [facility] Telephone number: [phone] Pharmacy updated and patient had already picked up using discount care. Pharmacist will contact patient with any reimbursement OOP cost. Time Spent: 15 min. April Frye RN April 24, 2024 1:56 PM documented in this encounter [facility] 04-24-2024 Telephone encounter Note I refilled Transdermal Butrans for 20 mcg/ hr patches, as we did tell her to double up the 10 mcg/hr patch she had for a toal of 20 mcg/hr No increase in D[place]boro Please have scheduling get her an appt with me this week if possible, she may need to see me weekly as she is so symptomatic [facility] 04-24-2024 Miscellaneous Notes I refilled Transdermal Butrans for 20 mcg/ hr patches, as we did tell her to double up the 10 mcg/hr patch she had for a toal of 20 mcg/hr No increase in [place] Please have scheduling get her an appt with me this week if possible, she may need to see me weekly as she is so symptomatic Patient states she is out of the Butran patches and is asking for same day fill. Patient would like to know if she can have an increase in the D[place] as she states that she was in excruciating pain over the weekend. Patient states she has been having swelling and pain and numbness in her ankles and yesterday was very bad. Patient would like to know if there is something that can be prescribed to help with the pain. Last ordered Butran 04/15/[address] Peres- Last ordered Dillsboro 04/14/2024- Patient picked up 04/18 per pharmacy but now requesting a increase. TC to patient. Let her know she should have a prescription already she picked up so should have least 4 patches left. Patient reports having 24 tablets of her Dillsboro left so does not need a refill and her pain is better but feels still needs and increase. Advised she follow up with her PCP for increase swelling that my be due to varicose. Confirmed with pharmacy: last picked up Butran patches on 04/15 for 4 patches. Last Dillsboro prescription picked up 04/18/2024 for 60 tablets. [...] WESLEY on 05/12/2024 at 9:30 am at [facility] to discuss further the opioid agreement and Suboxone treatment. Patient wrote this down on her calendar. April Frye RN April 24, 2024 9:54 AM Kaya Hailey Schilling is calling today regarding Refill Request. Patient states she is out of the Butran patches and is asking for same day fill. Patient would like to know if she can have an increase in the D[place] as she states that she was in excruciating pain over the weekend. Patient has been identified by name and birthdate. Requesting delivery method: call/escript to: [facility] Islas, VANIA Additional Concern: Patient states she has been having swelling and pain and numbness in her ankles and yesterday was very bad. Patient would like to know if there is something that can be prescribed to help with the pain. Requesting response back: N/A, no action needed [phone] (home) Nj Perkins April 24, 2024 documented in this encounter [facility] 04-24-2024 Telephone encounter Note Pt called regarding upcoming port placement. Patient requesting information on what types of infusions/scans that the port may be used for. Explained that the port is not just for chemotherapy, but may also be used for infusions as well as scans in lieu of starting an IV. Pt verbalized understanding and denies any additional questions. [facility] 04-24-2024 Miscellaneous Notes Pt called regarding upcoming port placement. Patient requesting information on what types of infusions/scans that the port may be used for. Explained that the port is not just for chemotherapy, but may also be used for infusions as well as scans in lieu of starting an IV. Pt verbalized understanding and denies any additional questions. documented in this encounter [facility] 04-24-2024 Telephone encounter Note Patient states she is out of the Butran patches and is asking for same day fill. Patient would like to know if she can have an increase in the [place] as she states that she was in excruciating pain over the weekend. Patient states she has been having swelling and pain and numbness in her ankles and yesterday was very bad. Patient would like to know if there is something that can be prescribed to help with the pain. Last ordered Butran 04/15/[address] Peres- Last ordered Dillsboro 04/14/2024- Patient picked up 04/18 per pharmacy but now requesting a increase. TC to patient. Let her know she should have a prescription already she picked up so should have least 4 patches left. Patient reports having 24 tablets of her Dillsboro left so does not need a refill and her pain is better but feels still needs and increase. Advised she follow up with her PCP for increase swelling that my be due to varicose. Confirmed with pharmacy: last picked up Butran patches on 04/15 for 4 patches. Last Dillsboro prescription picked up 04/18/2024 for 60 tablets. [...] WESLEY on 05/12/2024 at 9:30 am at [facility] to discuss further the opioid agreement and Suboxone treatment. Patient wrote this down on her calendar. April Frye RN April 24, 2024 9:54 AM T [facility] 04-24-2024 Telephone encounter Note Kaya Hart Boo is calling today regarding Refill Request. Patient states she is out of the Butran patches and is asking for same day fill. Patient would like to know if she can have an increase in the Dillsboro as she states that she was in excruciating pain over the weekend. Patient has been identified by name and birthdate. Requesting delivery method: call/escript to: [facility], [place]AN[place] Additional Concern: Patient states she has been having swelling and pain and numbness in her ankles and yesterday was very bad. Patient would like to know if there is something that can be prescribed to help with the pain. Requesting response back: N/A, no action needed [phone] (home) Nj Perkins April 24, 2024 T [facility] 04-21-2024 Telephone encounter Note Pt calls upset [...] No additional requests noted. Lise Connolly RN [facility] Work Phone: 04-21-2024 Miscellaneous Notes Pt calls [...] Lise Connolly RN documented in this encounter [facility] 04-21-2024 Telephone encounter Note You are scheduled for a Port Placement, On 04/25/2024. You are to arrive at 10:30 am and Report to [facility]: [facility]: Radiology Outpatient Desk [id number] You can expect to be here for [...] Labs: Lab-work needs to be drawn? No.. Extension Educator/Transportation: How will you be arriving for your procedure? Private car. You will need a responsible adult to accompany you to and from the procedure. Your driver education instructor is required to stay with you until you are taken into the procedure room. Spoke to patient EXTENSIVELY about instructions for procedure, when to stop medications, NPO instructions, and also that a driver education instructor is required, and patient verbalized understanding. Patient also given phone number to call back with any questions [facility] 04-21-2024 Miscellaneous Notes You are scheduled for a Port Placement, On 04/25/2024. You are to arrive at 10:30 am and Report to [facility]: [facility]: Radiology Outpatient Desk [id number] You can expect to be here for [...] Labs: Lab-work needs to be drawn? No.. Extension Educator/Transportation: How will you be arriving for your procedure? Private car. You will need a responsible adult to accompany you to and from the procedure. Your driver education instructor is required to stay with you until you are taken into the procedure room. Spoke to patient EXTENSIVELY about instructions for procedure, when to stop medications, NPO instructions, and also that a driver education instructor is required, and patient verbalized understanding. Patient also given phone number to call back with any questions documented in this encounter [facility] 04-21-2024 Telephone encounter Note Pt will be in on Wednesday for education. Script for Zofran pended. Pt already has phenergan at home. Lise Connolly RN [facility] Work Phone: 04-21-2024 Miscellaneous Notes Pt will be in on Wednesday for education. Script for Zofran pended. Pt already has phenergan at home. Lise Connolly RN documented in this encounter [facility] 04-21-2024 Telephone encounter Note I spoke w/ Kaya while she was here just now. Reports her pain is better this morning. Pt found the bottle of Dillsboro prescribed per Ann. Dosing instructions reviewed. Pt took 1 dose around 9 AM. Pt is aware that she must wait until 3 PM to take her next dose. Pt verbalizes understanding. Was planning to stop and get breakfast after leaving the office. Reinforced pall med's instructions to go to the ER if her pain becomes severe or uncontrolled. Lise Connolly RN [facility] Work Phone: 04-21-2024 Miscellaneous Notes I spoke w/ Kaya while she was here just now. Reports her pain is better this morning. Pt found the bottle of Dillsboro prescribed per Ann. Dosing instructions reviewed. Pt [...] virtually. If she cannot get to [facility] she needs a local referral. It will [...] plan, we can refer her to another [facility] program. Care Coordination Triage Note [facility] Situation: Patient called in again today reporting severe pain and crying. Background: Disease, current pertinent medications/treatments Gastric Cancer, PE, DM2, Bipolar. Assessment: Patient still reporting severe pain and currently driving to her treatment. I let her know her treatment is not until 1 pm. She is leaving now to see if someone can help her. She reports having only 1 Dillsboro tablet left and will take soon. Advises patient she had refill for 60 tablets of Dillsboro on 04/18 and should not only have [...] 2024 9:43 AM documented in this encounter [facility] 04-21-2024 Note Addended by: LILLIE TURNER on: 04/21/2024 10:29 AM Modules accepted: Orders [facility] 04-21-2024 Telephone encounter Note I also placed a referral to oncology psych as Kaya has a long and complicated psych history, extreme anxiety is increasing pain and interfering with treatment plan. May be Taking more narcotics than directed in effort to control pain/ anxiety cycle. At high risk for OUD, She needs to go to [facility] for first appt, then they will work with her virtually. If she cannot get to [facility] she needs a local referral. It will be very difficult to treat her if she has no mental health support. [facility] 04-21-2024 Telephone encounter Note I agree if [...] plan, [facility] 04-21-2024 Telephone encounter Note Care Coordination Triage Note [facility] Situation: Patient called in again today reporting severe pain and crying. Background: Disease, current pertinent medications/treatments Gastric Cancer, PE, DM2, Bipolar. Assessment: Patient still reporting severe pain and currently driving to her treatment. I let her know her treatment is not until 1 pm. She is leaving now to see if someone can help her. She reports having only 1 Dillsboro tablet left and will take soon. Advises patient she had refill for 60 tablets of Dillsboro on 04/18 and should not only have [...] it as recommended. Recommendations: Per Ann Richter [employer] to review. , patient directed to by nurse to seek emergent care if pain severe. Oncology Team: Oncology SW: Can we have Oncology SW follow up with patient today? April Frye RN April 21, 2024 9:43 AM [facility] 04-20-2024 Telephone encounter Note Attempted to call patient at this time and was unable to leave a voicemail without identification. Left voicemail with callback number for patient to get instructions. [facility] 04-20-2024 Miscellaneous Notes Attempted to call patient at this time and was unable to leave a voicemail without identification. Left voicemail with callback number for patient to get instructions. documented in this encounter [facility] 04-20-2024 Telephone encounter Note Images from the original note were not included. Daisha Barnes; Lise Connolly RN58 minutes ago (1:01 PM) NZ You're welcome. We had a nice 20 minute phone call, yes she is aware :) [facility] 04-20-2024 Miscellaneous Notes Images from the original [...] Thanks! She is on the schedule at [facility] on 04/25 for her port. Daisha Order signed. Lise Connolly RN New order, including diagnosis, pended. Please review and approve. Lise Connolly RN Images from the original note were not included. Daisha Barnes You1 hour ago (9:32 AM) LINO Spoke to patient and scheduled her for 04/25 at [facility]. Can we please get an order with a diagnosis? Thanks, Daisha Images from the original note were not included. Daisha Barnes You1 hour ago (6:59 AM) LINO Nicolas has some appointments next week. I will call the patient to schedule. Daisha Refer to [facility] for Port Roberta Alexus documented in this encounter [facility] 04-20-2024 Telephone encounter Note Pt calls to verify her next appointment in the clinic. Appointments reviewed w/ pt. Pt verbalizes understanding. Lise Connolly RN [facility] Work Phone: 04-20-2024 Miscellaneous Notes Pt calls to verify her next appointment in the clinic. Appointments reviewed w/ pt. Pt verbalizes understanding. Lise Connolly RN documented in this encounter [facility] 04-20-2024 Telephone encounter Note Thanks! Is the patient aware or do we need to call and notify her? Lise Connolly RN [facility] 04-20-2024 Telephone encounter Note Images from the original note were not included. Daisha Barnes You; Roberta Vaughan3 minutes ago (12:41 PM) LINO Thanks! She is on the schedule at [facility] on 04/25 for her port. Daisha [facility] 04-20-2024 Telephone encounter Note Order signed. Lise Connolly RN [facility] 04-20-2024 Telephone encounter Note New order, including diagnosis, pended. Please review and approve. Lise Connolly RN [facility] 04-20-2024 Telephone encounter Note Images from the original note were not included. Daisha Barnes1 hour ago (9:32 AM) LINO Spoke to patient and scheduled her for 04/25 at [facility]. Can we please get an order with a diagnosis? Daisha Roblero [facility] 04-20-2024 Telephone encounter Note Images from the original note were not included. Daisha Barnes You1 hour ago (6:59 AM) LINO Nicolas has some appointments next week. I will call the patient to schedule. Daisha [facility] 04-19-2024 Miscellaneous Notes Order faxed to [facility] @ [phone]. Lise Connolly RN 3rd attempt made to reach pathology. No answer. Message left requesting call back. Lise Connolly RN 2nd call placed to [facility]. No answer. Unable to leave a message. Lise Connolly RN Call placed to [facility]. No answer. Unable to leave a message. Order on BR's desk to be signed. Lise Connolly RN Images from the original note were not included. Melia: Request to [facility]. Thank you! Roberta Vaughan documented in this encounter [facility] 04-19-2024 Telephone encounter Note Order faxed to [facility] @ [phone]. Lise Connolly RN [facility] Work Phone: 04-19-2024 Telephone encounter Note 3rd attempt made to reach pathology. No answer. Message left requesting call back. Lise Connolly RN [facility] 04-19-2024 Telephone encounter Note Care Coordination Triage Note [facility] Situation: Patient reports continued severe abdominal pain increased every day since visit with LUPILLO Juarez Background: Disease, current pertinent medications/treatments Gastric Cancer Assessment: Patient reports her pain in the morning 06/15. She took the Oxy IR with no relief. She is only wearing one Butran 10 mcg patch. Said her friend Fidelina from [place] did not believe we increased it. She [...] patches as discussed with her on 04/17. -Dillsboro 10/325 Q6H prn, taking 1 tablet, taking [...] Frye RN April 19, 2024 12:57 PM [facility] 04-19-2024 Miscellaneous Notes Care Coordination Triage Note [facility] Situation: Patient reports continued severe abdominal pain increased every day since visit with LUPILLO Juarez Background: Disease, current pertinent medications/treatments Gastric Cancer Assessment: Patient reports her pain in the morning 06/15. She took the Oxy IR with no relief. She is only wearing one Butran 10 mcg patch. Said her friend Fidelina from [place] did not believe we increased it. She [...] patches as discussed with her on 04/17. -Dillsboro 10/325 Q6H prn, taking 1 tablet, taking [...] birthdate. Requesting response back: call at home [phone] (cell) Vahe Diaz April 19, 2024 documented in this encounter [facility] 04-19-2024 Telephone encounter Note Kaya Schilling requesting a return call to discuss a possible increase in pain medication. Patient has been identified by name and birthdate. Requesting response back: call at home [phone] (cell) Vahe Hindstcher [employer] Emily April 19, 2024 [facility] Work Phone: 04-18-2024 Telephone encounter Note 2nd call placed to [facility]. No answer. Unable to leave a message. Lise Connolly RN [facility] 04-18-2024 Telephone encounter Note Call placed to [facility]. No answer. Unable to leave a message. Order on BRM's desk to be signed. Lise Connolly RN [facility] 04-18-2024 Telephone encounter Note Images from the original note were not included. Melia: Request to [facility]. Thank you! Roberta Vaughan [facility] 04-18-2024 Telephone encounter Note Refer to [facility] Maria Isabel for Port [place] Vaughan [facility] 04-17-2024 Note [facility] 04-17-2024 History of Present illness Narrative PATIENT NAME: Kaya Schilling DATE: 04/18/2024 PRIMARY CARE PHYSICIAN: Kostas Steward, OTHER PHYSICIANS: Dr. Cong Montano, Dr. Ramires (Psych in [place]) Portions of this encounter note have been [...] abdominal pain. She was recently seen by [facility] palliative medicine, and is on new [...] cor pulmonale, unspecified pulmonary embolism type ([facility]) No date: Anemia No date: Arthritis No date: Bipolar 1 disorder ([facility]) No date: Broken jaw ([facility]) Comment: no surgery No date: COPD (chronic obstructive pulmonary disease) ([facility]) No date: Diabetes mellitus (adult onset) ([facility]) No date: Gastric carcinoma ([facility]) No date: History of broken nose Comment: had septoplasty No date: Manic depression ([facility]) Comment: Dr. Rees No date: [...] soft tissue swelling, and atrophy. PATHOLOGY: 03/23/2024 [id number] NGS analysis MSI high not detected. No actionable mutations. 03/02/2024 Cardia mass biopsy ([facility]) Invasive adenocarcinoma, intestinal type, low-grade HER2 2+ [...] suspicious for osseous metastases. 02/13/2024 Chest CTA ([facility]) Acute pulmonary embolism involving segmental branches of the left upper lobe and interlobar and segmental branches of right middle and lower lobes. 2.6 x 5.6 cm enhancing intraluminal mass along the lesser curvature suspicious for gastric cancer Gastrohepatic ligament lymphadenopathy representing metastasis 11/19/2023 CT abdomen/pelvis ([facility]) Mild wall thickening of the colon [...] (primary diagnosis) The patient presented 02/13/2024 to [facility] emergency room for evaluation of left sided chest pain and abdominal pain, at which time a chest CTA revealed a gastric mass. EGD 03/02/2024 revealed a malignant tumor at the gastric cardia. Biopsy revealed adenocarcinoma consistent with gastric primary. Final pathology revealed HER2 negative, MMR intact. [id number] revealed no actionable mutations. Staging PET scan [...] 2024. The patient has been referred to [facility] palliative medicine for management. 9. Hypercalcemia of malignancy - ICD9: 275.42, ICD10: E83.52 Labs obtained 04/18/2024 revealed significant hypercalcemia, most likely secondary to metastatic disease. Will give IV fluids plus Aredia today. Monitor labs closely and give additional treatment as indicated. Beto Vivar MD CC: Dr. Cong Montano documented in this encounter [facility] 04-17-2024 Telephone encounter Note Palliative Medicine Care Coordination Follow up Phone Call Patient identified by name and : Yes Spoke to: patient Nurse calling to follow up on provider medication recommendations. Discussed with Kaya that Ann WESELY recommends applying a 2nd Butran patch to equal 20 mcg/hour and may take dulcolax HI and Linzess until she has a bowel movement then discontinue. Patient verbalized understanding and will call when needing a refills. April Frye RN April 17, 2024 1:17 PM [facility] 04-17-2024 Miscellaneous Notes Palliative Medicine Care Coordination Follow up Phone Call Patient identified by name and : Yes Spoke to: patient Nurse calling to follow up on provider medication recommendations. Discussed with Kaya that Ann WESLEY recommends applying a 2nd Butran patch to equal 20 mcg/hour and may take dulcolax HI and Linzess until she has a bowel movement then discontinue. Patient verbalized understanding and will call when needing a refills. April Frye RN April 17, 2024 1:[address] a second transdermal Butrans patch on for a total of 20 mcg/ hr She could use dulcolax HI with Linzess until she has a movement then DC Care Coordination Triage Note [facility] Situation: Patient reports stomach pain that has not resolved despite the increase in her [place]boro. Background: Disease, current pertinent medications/treatments malignant neoplasm of cardia of stomach Assessment: Patient reports having pain usually in the morning. She reports starting the Patch on Wednesday. So far she Reports pain level 10/10 in the morning. Patient takes the [place] 10 mg pain reduces to a 7/10 and just takes the edge off. Still has nausea and takes phenergan. Has not picked up Olanzapine yet. Last BM Sunday 04/15. Current pain regimen and usage: Buprenorphine 10 mg, taking [place] 10/325 po Q6HR prn, taking 1 tablet 3x daily in the am, afternoon, and pm), advised to increase to 4 x daily as needed. Reports having 6 tablets left and has said she has not picked up her [place] ordered 04/14 and not due for a refill until tomorrow per pharmacy. Bowel regimen and usage: -Linzess daily, taking daily, Last took 04/12 . Last BM 04/15. Denies constipation. Advise to continue daily as recommended and hold if loose stools. Nausea/appetite: - Olanzapine 10 mg po at HS-has not picked up, will last picker today. -phenergan 25 mg table, taking [...] relief. Janice BARAJAS documented in this encounter [facility] 04-17-2024 Telephone encounter Note She can place a second transdermal Butrans patch on for a total of 20 mcg/ hr She could use dulcolax HI with Linzess until she has a movement then DC [facility] 04-17-2024 Telephone encounter Note Care Coordination Triage Note [facility] Situation: Patient reports stomach pain that has not resolved despite the increase in her Dillsboro. Background: Disease, current pertinent medications/treatments malignant neoplasm of cardia of stomach Assessment: Patient reports having pain usually in the morning. She reports starting the Patch on Wednesday. So far she Reports pain level 10/10 in the morning. Patient takes the Dillsboro 10 mg pain reduces to a 7/10 and just takes the edge off. Still has nausea and takes phenergan. Has not picked up Olanzapine yet. Last BM Sunday 04/15. Current pain regimen and usage: Buprenorphine 10 mg, taking Dillsboro 10/325 po Q6HR prn, taking 1 tablet 3x daily in the am, afternoon, and pm), advised to increase to 4 x daily as needed. Reports having 6 tablets left and has said she has not picked up her Dillsboro ordered 04/14 and not due for a refill until tomorrow per pharmacy. Bowel regimen and usage: -Linzess daily, taking daily, Last took 04/12 . Last BM 04/15. Denies constipation. Advise to continue daily as recommended and hold if loose stools. Nausea/appetite: - Olanzapine 10 mg po at HS-has not picked up, will last picker today. -phenergan 25 mg table, taking Q6H prn, took last night around 8:30 pm and it helped. Patient asking for an adjustment in her pain medications. Recommendations: Per Ann Richter CNP- to review, patient directed to ER if symptoms worsen. April Frye RN April 17, 2024 11:41 AM [facility] 04-17-2024 Telephone encounter Note Kaya Schilling is calling today regarding pain that she is experiencing in her stomach. She states that has not been able to maintain a comfortable level. Patient is requesting a return call to discuss possible remedies for relief. Janice BARAJAS [facility] 04-15-2024 Miscellaneous Notes Addended by: FABY PERES on: 04/15/2024 03:16 PM Modules accepted: Orders I received a page for the pt and spoke with her and caregiver, Fidelina, on the phone today. Briefly, she is a 59 yo female with gastric cancer, currently in the middle of treatment planning. She is followed by [employer] [employer] (Lillie Richter CNP) for pain management. Fidelina said that she needs a doctor to approve the script for buprenorphine TD 10 mcg/hr sent to [facility] in [place], [place] yesterday. I then spoke with the pharmacy staff ([phone]), who mentioned that this drug will need prior authorization approval from the pt's medical insurance. I told the staff and Fidelina that this can be accomplished by our team on Wednesday, and that for now, the patient can take Dillsboro 10/325 1 tablet q6 hrs prn. Fidelina added that she will try to pay for buprenorphine [id number], and may need to call have it called in to another pharmacy. I gave her our contact information. Faby Peres MD, FACP, [facility] Pager [phone] April 15, 2024 2:16 PM CC: Lillie Richter CNP [facility] [employer] Pool Addendum I spoke to Fidelina once again, who wanted buprenorphine TD 10 mcg/hr sent to another pharmacy ([facility] in [place], [place]). The following prescription(s) will be transmitted electronically to the patient's pharmacy of choice. Requested Prescriptions Signed Prescriptions Disp Refills buprenorphine (BUTRANS) 10 mcg/hour 4 Patch 0 Sig: Apply 1 Patch as directed one time a week for 30 days. Authorizing Provider: FABY PERES MD, FACP, [facility] Pager [phone] April 15, 2024 3:15 PM documented in this encounter [facility] 04-15-2024 Note Addended by: FABY PERES on: 04/15/2024 03:16 PM Modules accepted: Orders [facility] 04-15-2024 Telephone encounter Note I received a page for the pt and spoke with her and caregiver, Fidelina, on the phone today. Briefly, she is a 59 yo female with gastric cancer, currently in the middle of treatment planning. She is followed by [facility] (Lillie Richter CNP) for pain management. Fidelina said that she needs a doctor to approve the script for buprenorphine TD 10 mcg/hr sent to [facility] in [place], [place] yesterday. I then spoke with the pharmacy staff ([phone]), who mentioned that this drug will need prior authorization approval from the pt's medical insurance. I told the staff and Fidelina that this can be accomplished by our team on Wednesday, and that for now, the patient can take Dillsboro 10/325 1 tablet q6 hrs prn. Fidelina added that she will try to pay for buprenorphine [id number], and may need to call have it called in to another pharmacy. I gave her our contact information. Faby Peres MD, FACP, [facility] Pager [phone] April 15, 2024 2:16 PM CC: Lillie Richter CNP [facility] [employer] Pool Addendum I spoke to Fidelina once again, who wanted buprenorphine TD 10 mcg/hr sent to another pharmacy ([facility] in [place], [place]). The following prescription(s) will be transmitted electronically to the patient's pharmacy of choice. Requested Prescriptions Signed Prescriptions Disp Refills buprenorphine (BUTRANS) 10 mcg/hour 4 Patch 0 Sig: Apply 1 Patch as directed one time a week for 30 days. Authorizing Provider: FABY PERES MD, [facility], [facility] Pager [phone] April 15, 2024 3:15 PM [facility] 04-14-2024 Note [facility] 04-14-2024 History of Present illness Narrative SOCIAL WORK FOLLOW UP NOTE: [facility] Date of service: 04/14/24 Kaya Schilling is being seen for a follow up social work visit. Today's visit includes: patient TOPICS ADDRESSED: ONS from the [employer] PLAN: Continue follow up as needed [...] appropriate. CHUCHO Francis documented in this encounter [facility] 04-14-2024 Instructions Lillie Richter APRN.LUPILLO - 04/14/2024 9:18 AM EDT Lillie Richter CNP Department of Palliative and Supportive Care Palliative Care - Specialty services in symptom management and support For questions or prescription refills, call: [phone] Wednesday - Wednesday 9AM-5PM ELENO Franco, RN - [facility] Please call 3-5 days in advance for medication refills Evenings, Weekends, Holidays: [phone] (ask for palliative medicine on-call provider) For appointments, cancellations or reschedule, call: [phone] documented in this encounter [facility] 04-14-2024 Note [facility] 04-14-2024 History of Present illness Narrative PALLIATIVE MEDICINE INITIAL CONSULT SERVICE DATE: 04/14/2024 Referring Physician: Beto Vivar ([facility]) [address] [place] [address] [place] [address] Medical Oncologist: Beto Vivar MD Primary Physician: Kostas Steward MD, DO REASON FOR CONSULT: Symptom Management Subjective Kaya Schilling is a 59 year old female with history of Gastric Cancer, PE, DM2, Bipolar, Hypothyroidism, Hep C, Anemia.The patient presented 02/13/2024 to [facility] emergency room for evaluation of left [...] lower quad. She has a prescription for Dillsboro 06/08/2025 was directed to take 1 every [...] cor pulmonale, unspecified pulmonary embolism type ([facility]) No date: Anemia No date: Arthritis No date: Bipolar 1 disorder ([facility]) No date: Broken jaw ([facility]) Comment: no surgery No date: COPD (chronic obstructive pulmonary disease) ([facility]) No date: Diabetes mellitus (adult onset) ([facility]) No date: Gastric carcinoma ([facility]) No date: History of broken nose Comment: had septoplasty No date: Manic depression ([facility]) Comment: Dr. Rees No date: [...] Use: Never REVIEW OF SYSTEMS: Modified ESAS (G[place]fey Symptom Assessment Scale): Information Provided By: Patient [...] ear normal. Nose: Nose normal. Mouth/Throat: Lips: [place]. Mouth: Mucous membranes are moist. No oral [...] Informed Consent: Signed today Lillie Richter NP, POURED CONCRETE WALL TECHNICIAN.INSPECTOR EYEGLASS Assessment & Plan (Z51.5) Palliative care by [...] chronic pain severe enough to require daily, [id number], correction opioid treatment AND ? Alternative treatment options [...] of shared electronic medical record. Lillie Richter CORK TIPPER, POURED CONCRETE WALL TECHNICIAN.INSPECTOR EYEGLASS April 14, 2024 8:46 AM I spent a total of 60 minutes on the date of the service which included preparing to see the patient, [id number] patient care, completing clinical documentation, obtaining and/or reviewing separately obtained history, performing a medically appropriate examination, counseling and educating the patient/family/caregiver, ordering medications, tests, or procedures, communicating with other HCPs (not separately reported), independently interpreting results (not separately reported), communicating results to the patient/family/caregiver, and care coordination (not separately reported) . This note may have been partially generated using the [employer] voice recognition system. While every effort was made to correct voice recognition errors, kindly be aware that some errors may occasionally occur. documented in this encounter [facility] 04-14-2024 History of Present illness Narrative Oncology Nutrition Therapy Progress Note I have communicated my name and active licensure. The patient's identity and physical location were verified at the time of this visit. Either the patient or their legal logistics service representative has been informed of the risks [...] ONS coverage still pending through [facility]. Provided pt with contact information for [facility] so she can call to receive update on the request. Pt verbalized need for ONS as she is almost out and has limited funds. Message sent to to gather and provide ONS samples to patient today courtesy of the [facility] ONS corporate pilot program. READINESS TO LEARN Cognitive ability: [...] Aguillon RDN, LD documented in this encounter [facility] 04-14-2024 Note [facility] 04-12-2024 Telephone encounter Note Patient is scheduled with dr vivar on 04/18 [facility] 04-12-2024 Miscellaneous Notes Patient is scheduled with [...] vacation to discuss chemotherapy. Lise Connolly RN ----- Message from Beto Vivar MD [...] to the area. documented in this encounter [facility] 04-12-2024 Telephone encounter Note Spoke to patient & scheduled her b-12 injection on 04/21/2024 at 10:30 am. Put a appointment note in to schedule monthly once the follow up with BRM is schedule when Tsmith finds an opening on his schedule. There is another phone encounter to that effect. NIRANJAN Adkins [facility] 04-12-2024 Miscellaneous Notes Spoke to patient & [...] it is sent out to our nurse manager of revenue. NIRANJAN Adkins Pt needs a B12 only appointment on 04/21/24 then monthly. Currently has no follow up with BRM or MM, Yvonne Long, RN Patient added to b12 today Patient [...] discontinue the 4th dose? IV iron at [facility] weekly x 4 - 1st infusion in [...] soon as possible. documented in this encounter [facility] 04-12-2024 Telephone encounter Note Pt calls to [...] evaluation and treatment of pain. BORA Cantor [facility] 04-12-2024 Miscellaneous Notes Pt calls to report [...] pain. BORA Cantor documented in this encounter [facility] 04-11-2024 Telephone encounter Note Lvm for patient to call us back to schedule B-12 injection on 04/21 & then monthly. Let patient know also, that we are still working on getting a follow up scheduled with BR[facility] that it is sent out to our nurse manager of revenue. Grisel Clark PSS [facility] 04-11-2024 Telephone encounter Note Pt needs a B12 only appointment on 04/21/24 then monthly. Currently has no follow up with BRBrittany or HEATHER, Yvonne Echavarria RN [facility] 04-11-2024 Telephone encounter Note Hi please cancel ref thanks! [facility] 04-11-2024 Miscellaneous Notes Hi please cancel ref thanks! Clerical: Per 04/07 phone encounter, BRM states that surgery is not recommended at this time. Please cancel the consult to thoracic surgery. Thanks! Lise Connolly RN documented in this encounter [facility] 04-10-2024 Telephone encounter Note Clerical: Per / phone encounter, BRBrittany states that surgery is not recommended at this time. Please cancel the consult to thoracic surgery. Thanks! Lise Connolly RN [facility] Work Phone: 04-10-2024 Telephone encounter Note Thoracic referral consult request is cancelled as per Dr. Vivar. Thoracic Surgery Consultation - review of records for appointment scheduling Received medical records from the office of Belen Carlton [address] [place] [address] Patient is being referred to Jeanne Mccormick MD, PhD by Belen Carlton for gastric ADCA Outside hospital records scanned / in [facility] / Care Everywhere Pathology:03/02/2024 Final Pathologic [...] (primary diagnosis) The patient presented 02/13/2024 to [facility] emergency room for evaluation of left [...] G89.3 Pain LUQ and lower abd. Continue Dillsboro PRN. Pall med referral. Beto Vivar MD [...] cor pulmonale, unspecified pulmonary embolism type ([facility]) No date: Anemia No date: Arthritis No date: Bipolar 1 disorder ([facility]) No date: Broken jaw ([facility]) Comment: no surgery No date: COPD (chronic obstructive pulmonary disease) ([facility]) No date: Diabetes mellitus (adult onset) ([facility]) No date: Gastric carcinoma ([facility]) No date: History of broken nose Comment: had septoplasty No date: Manic depression ([facility]) Comment: Dr. Rees No date: [...] per Dr. Vivar. Jean Claude Mcclelland RN [facility] Work Phone: 04-10-2024 Miscellaneous Notes Thoracic referral consult request is cancelled as per Dr. Vivar. Thoracic Surgery Consultation - review of records for appointment scheduling Received medical records from the office of Belen Carlton [facility] [address] Patient is being referred to Jeanne Mccormick MD, PhD by Belen Carlton for gastric ADCA Outside hospital records scanned / in epic / Care Everywhere Pathology:03/02/2024 Final Pathologic Diagnosis [...] (primary diagnosis) The patient presented 02/13/2024 to [facility] emergency room for evaluation of left [...] G89.3 Pain LUQ and lower abd. Continue Dillsboro PRN. Pall med referral. Beto Vivar MD [...] cor pulmonale, unspecified pulmonary embolism type ([facility]) No date: Anemia No date: Arthritis No date: Bipolar 1 disorder ([facility]) No date: Broken jaw ([facility]) Comment: no surgery No date: COPD (chronic obstructive pulmonary disease) ([facility]) No date: Diabetes mellitus (adult onset) ([facility]) No date: Gastric carcinoma ([facility]) No date: History of broken nose Comment: had septoplasty No date: Manic depression ([facility]) Comment: Dr. Rees No date: [...] RN LOCAL PATIENT Received Fax from [facility] Kayahailey Schilling is being referred to Jeanne Mccormick M.D., Ph. D. by [address] [place] [address] Patient diagnosis/Reason for consult: Gastric Adenocarcinoma Referral triage process explained: No Patient will receive a call from Thoracic NPM after triage review with surgeon to discuss any additional testing and/or consults that will be scheduled. Pt will then receive a call from our scheduling office for scheduling. Please call pt at [phone]. Patient was informed consultation could be at [place] or [facility] [place]: No Patient Registration: Registration complete/updated: yes Insurance card(s) scanned in [facility] with in the past year: Yes: Date: 03/23/24 Pt's MyChart is Pending. Ok to communicate to pt via Master Route not asked Medical Records: Records in [facility] (internal CC records): Yes Imaging in [facility] (internal CC records): Yes Care Everywhere - queried yes, downloaded Yes Linked Outside Organizations (list): [facility] Records Requested: no Date: N/A Outside Hospital(s) [...] justin [place] asst documented in this encounter [facility] 04-07-2024 Telephone encounter Note Patient is already scheduled to see pall med next 04/14/24. Lise Connolly, BORA [facility] Work Phone: 04-07-2024 Miscellaneous Notes Patient is already scheduled to see pall med next 04/14/24. Lise Connolly RN Patient is requesting a referral to palliative care. If agreeable please review and sign the orders. Thank you Rae Manzo RN documented in this encounter [facility] 04-07-2024 Telephone encounter Note Patient is requesting a referral to palliative care. If agreeable please review and sign the orders. Thank you Rae Manzo RN [facility] 04-07-2024 Note [facility] 04-07-2024 History of Present illness Narrative .PSYCHOSOCIAL [...] Social Connections: Moderately Isolated (08/23/2023) Received from [facility] Social Connection and Isolation Panel [NHANES] Frequency of Communication with Friends and Family: Twice a week Frequency of Social Gatherings with Friends and Family: Once a week Attends Restoration Services: 1 to 4 times per year Active Member of Clubs or Organizations: No Attends Club or Organization Meetings: Never Marital Status: Marital status: Single Parent(s): Mother is living and Father is living Child/Children: Yes. How many? 2 (a son and a daughter) resident care provider arrangements needed: No Siblings: 1 sister(s) and 1 brother(s) Grandchild(aaron): > 5 Home Health Provider: No Community Services: No Jayshree Identified: Yes Oriental Orthodox/Spirituality: Presybeterian Are these practices or beliefs that may affect or influence treatment? Unknown EMPLOYMENT/FINANCIAL/HEALTH INSURANCE: Employment: [employer] Disability Income source: Social Security disability (SSD) Insurance: Medicaid active Prescription coverage: Yes Is the patient appropriate for referral to [facility] COBRA Assistance program? No Financial Distress: Yes, What assistance is needed? Other Cannot afford oral nutrition supplements. Dietitian is involved and address this concern. [place]: No FOOD INSECURITY Within the past year, have you worried about how you would buy or obtain food? No LIVING ARRANGEMENTS: Type: Apartment-independent Resides with: Alone Transportation Needs: No Transportation Needs (03/15/2023) Received from [facility] Transportation Lack of Transportation (Medical): No Lack [...] Partner Violence: Unknown (10/28/2023) Received from [facility] Safety & Environment Fear of [...] Not addressed during this encounter Scanned into [employer]: Not addressed during this encounter Health Care Durable Power of Refueling Ramp Attendant: Not addressed during this encounter Scanned into [employer]: Not addressed during this encounter Guardianship: NA Scanned into EPIC:NA Reasons Advanced Directives were not Addressed: Patient decline due to feeling overwhelmed Goals of Care Date of Discussion: 04/07/2024 Advance Directives are not on file. SIGNATURE: FLORECITA Francis PATIENT NAME: Kaya Schilling DATE: April 07, 2024 TIME: 3:53 PM PAGER/CONTACT #: [phone] STATUS: Stress: Stress Concern Present (03/15/2023) Received from [facility] [employer] [facility] [employer] - Occupational Stress Questionnaire [...] Patient lives alone in an apartment in [place], [place]. Patient reports a strained relationship with her mother and son. Patient shared stories of her traumatic childhood upbringing. SW provided active listening. Patient is under the care of Dr. Ramires (Psychiatrist) at [facility]. Patient is also seen by a counselor at [facility] and does not recall her name. Patient does not feel that her mental health needs are properly addressed by her current mental health team. Patient shares that a friend from [place] (Fidelina)is in town to support her for [...] SW listed in Care Team tab: Yes Jackie Jean Claude, FABRIC CUTTER-S documented in this encounter [facility] 04-07-2024 Telephone encounter Note Thank you Rae. I have started the paperwork process to see if Medicaid will cover oral nutrition supplements and left samples of boost at the front office specialist for her that she should have picked up. Jackie also aware! Erendira Aguillon RD, JAD [facility] 04-07-2024 Miscellaneous Notes Thank you Rae. I have started the paperwork process to see if Medicaid will cover oral nutrition supplements and left samples of boost at the front office specialist for her that she should have picked up. Jackie also aware! Erendira Aguillon RD, JAD Patient has requested assistance to pay for Boost supplements. She was newly Dx with gastric cancer, has lost a significant amount of weight, states that she drinks a lot of boost noting that it is too expensive for her. She is established with [facility] (service desk technician) She has mental health issues and could use a social work referral Rae Manzo RN documented in this encounter [facility] 04-07-2024 Telephone encounter Note Patient has requested assistance to pay for Boost supplements. She was newly Dx with gastric cancer, has lost a significant amount of weight, states that she drinks a lot of boost noting that it is too expensive for her. She is established with [facility] (service desk technician) She has mental health issues and could use a social work referral Rae Manzo RN [facility] 04-07-2024 Telephone encounter Note Sent to Herve Koch to schedule. Thanks. NIRANJAN Adkins [facility] 04-07-2024 Telephone encounter Note Jolanta- Can you find an opening on [facility] schedule after his vacation to discuss chemotherapy?? Thank you. NIRANJAN Adkins [facility] 04-07-2024 Telephone encounter Note Pt notified and asks that I call her best friend, Fidelina Watson w/ the results as well. Results reviewed w/ Fidelina as requested. Fidelina verbalizes understanding. Clerical: Pt will need to see BRM when he returns from vacation to discuss chemotherapy. Lise Connolly RN [facility] Work Phone: 04-07-2024 Telephone encounter Note ----- [...] worsens would consider radiation to the area. [facility] 04-06-2024 Note IMPRESSION: 1. Since 11/18/2013, diffuse [...] any questions regarding this interpretation, please call [phone]. If you are unable to reach us at the number above, please feel free to contact [facility] at [phone]. DIVISION OF RADIOLOGY 04-06-2024 Nurse Note Patient Identification confirmed: yes. Injection given and documented on NOV per provider order. Amirah Koch MA [facility] 04-06-2024 Telephone encounter Note Patient added to b12 today [facility] 04-06-2024 History of Present illness Narrative Radiology [...] PATIENT PRESENTS WITH AN IMPLANTABLE OR ATTACHED PLASTER MOLDER: No RADIOLOGY DEPARTMENT: CT; Exam(s) Completed: Abdomen and Chest PERIPHERAL IV DATA: Site assessment: Clean,Dry and Intact, Site disposition Discontinued SIGNED BY: RT Urszula(R) April 06, 2024 1:34 PM documented in this encounter [facility] 04-06-2024 Note [facility] 04-06-2024 Telephone encounter Note Patient came in today, her PCP has not called her back so she will come back here for her B12 if needed. Please advise as to what is needed to be scheduled. [facility] 04-06-2024 History of Present illness Narrative Radiology [...] safety can be found using this link: [email or web address] SIGNATURE: RT Urszula(Christofer) PATIENT NAME: Kaya Schilling DATE: April 06, 2024 TIME: 1:33 PM PAGER/CONTACT #: documented in this encounter [facility] 04-06-2024 Note [facility] 04-06-2024 Note [facility] 04-03-2024 Telephone encounter Note Patient still waiting for PCP to call back regarding B12 [facility] 04-03-[address] - 04/03/2024 [...] complete paperwork and send to [facility] for insurance determination -incorporate calorie/protein boosting techniques at meals/snacks -whole milk, full fat dairy, cream, butter/margarine, full fat jennings/dressing/condiments, oils, avocado, peanut butter, etc. documented in this encounter [facility] 04-03-2024 Note [facility] 04-03-2024 History of Present illness Narrative Oncology Nutrition Therapy Initial Assessment I have communicated my name and active licensure. The patient's identity and physical location were verified at the time of this visit. Either the patient or their legal logistics service representative has been informed of the risks [...] complete paperwork and send to [facility] for insurance determination -incorporate calorie/protein boosting techniques [...] Dosing Weight: 52.1 kg Estimated kilocalorie needs: 6997-2621 kilocalories determined by 35-40 kcal/kg Estimated protein needs: 63-78 grams determined by 1.2-1.5 g/kg Dosing weight Estimated fluid needs: ~8032-2538 milliliters based on 1 mL per kcal [...] MS, RD, LD documented in this encounter [facility] 03-31-2024 Telephone encounter Note This pt needs another dose of B12 04/21/24 then monthly per result notes that BR sent me. Per my original message pt may wish to get at her PCP. She was to call to see if they were able to do this. Yvonne Echavarria RN [facility] 03-29-2024 Telephone encounter Note Results printed from Care Everywhere and placed in 's mail folder for review. Lise Connolly RN [facility] Work Phone: 03-29-2024 Miscellaneous Notes Results printed from Care Everywhere and placed in 's mail folder for review. Lise Connolly RN [facility], pt's HER2 FISH analysis is still pending. Lise Connolly, RN documented in this encounter [facility] 03-28-2024 Telephone encounter Note Pt called for I need stronger pain meds. 03/23/24 pt had spoke with BRM and pt was referred to PCP for management of pain medications, until follow up with pall med 04/14/24. Discussed with pt. She will call PCP, and was transferred to PSS to see if appt can be moved sooner. BRM: BRIAN Aranda RN [facility] 03-28-2024 Miscellaneous Notes Pt called for I need stronger pain meds. 03/23/24 pt had spoke with BRM and pt was referred to PCP for management of pain medications, until follow up with pall med 04/14/24. Discussed with pt. She will call PCP, and was transferred to PSS to see if appt can be moved sooner. BRM: BRIAN Aranda RN documented in this encounter [facility] 03-27-2024 Telephone encounter Note Cancelled 4th dose. Roberta Vaughan [facility] 03-27-2024 Telephone encounter Note 3 cycles should be adequate. [facility] 03-27-2024 Telephone encounter Note Patient is already scheduled. Per 's instructions, he wanted her scheduled for 4 doses. Should we discontinue the 4th dose? IV iron at [facility] weekly x 4 - 1st infusion in 1 week Roberta Vaughan [facility] 03-27-2024 Telephone encounter Note Patient notified and [...] wants the additional ones at PCP) . [facility] 03-27-2024 Telephone encounter Note ----- Message from Beto Vivar MD sent at 03/27/2024 9:36 AM EDT ----- Please inform the patient that her B12 level is critically low, she should continue weekly B12 x 4 then monthly. Iron level moderately low. I would recommend weekly Venofer IV x 3 weeks. Please schedule to be started as soon as possible. T [facility] 03-27-2024 Telephone encounter Note LOCAL PATIENT Received Fax from [facility] Kaya Schilling is being referred to Jeanne Mccormick M.D., Ph. D. by [address] [facility] [address] Patient diagnosis/Reason for consult: Gastric Adenocarcinoma Referral triage process explained: No Patient will receive a call from Thoracic NPM after triage review with surgeon to discuss any additional testing and/or consults that will be scheduled. Pt will then receive a call from our scheduling office for scheduling. Please call pt at [phone]. Patient was informed consultation could be at [place] or [facility] [place]: No Patient Registration: Registration complete/updated: yes Insurance card(s) scanned in [facility] with in the past year: Yes: Date: 03/23/24 Pt's MyChart is Pending. Ok to communicate to pt via [facility] not asked Medical Records: Records in [facility] (internal CC records): Yes Imaging in [facility] (internal [facility] records): Yes Care Everywhere - [...] Dirk Castano NPM for Triage Leatha Rodriguez administrative assistant office manager [facility] 03-24-2024 Telephone encounter Note Pt called the non destructive evaluation manager service last night for pain. Called to discuss and pt VM full. Plan per BRM OV 03/23/24 [place] PRN pain and pall med referral. Pt is schedule with Taniya Richter 04/14/24. BORA Cantor RN spoke with [facility] and he did talk with pt last night. She was encouraged to see PCP, if needed for further pain control, until her scheduled new pt appt with pall med at our facility 04/14/24. Marley Aranda RN [facility] 03-24-2024 Miscellaneous Notes Pt called the non destructive evaluation manager service last night for pain. Called to discuss and pt VM full. Plan per BRM OV 03/23/24 [place] PRN pain and pall med referral. Pt is schedule with Taniya Richter 04/14/24. BORA Cantor RN spoke with BRM and he did talk with pt last night. She was encouraged to see PCP, if needed for further pain control, until her scheduled new pt appt with pall med at our facility 04/14/24. Marley Aranda RN documented in this encounter [facility] 03-23-2024 Nurse Note Patient Identification confirmed: yes. Injection given and documented on NOV per provider order. Amirah Koch MA [facility] 03-23-2024 Telephone encounter Note Per Minal @ [facility] Pathology, pt's HER2 FISH analysis is still pending. Lise Connolly RN [facility] 03-22-2024 Note [facility] 03-22-2024 History of Present illness Narrative PATIENT NAME: Kaya Schilling DATE: 03/23/2024 PRIMARY CARE PHYSICIAN: Kostas Steward DO OTHER PHYSICIANS: Dr. Cong Montano, Dr. Ramires (Psych in [place]) HPI: This is a 59 year old female with recently diagnosed gastric cancer, referred for further management. The patient presented 02/13/2024 to [facility] emergency room for evaluation of left [...] upper quadrant and lower abdomen ., On [place] with relief. Not maarried. 2 children. Family [...] and atrophy. PATHOLOGY: 03/02/2024 Cardia mass biopsy ([facility]) Invasive adenocarcinoma, intestinal type, low-grade HER2 2+ (equivocal), FISH pending LABS: Hemoglobin (g/dL) Date Value 03/23/2024 7.6 03/11/2015 13.3 Hematocrit (%) Date Value 03/23/2024 22.5 03/11/2015 39.2 WBC (k/uL) Date Value 03/23/2024 4.75 03/11/2015 6.56 Platelet Count (k/uL) Date Value 03/23/2024 247 03/11/2015 464 RADIOLOGY/OTHER STUDIES: 02/13/2024 Chest CTA ([facility]) Acute pulmonary embolism involving segmental branches of the left upper lobe and interlobar and segmental branches of right middle and lower lobes. 2.6 x 5.6 cm enhancing intraluminal mass along the lesser curvature suspicious for gastric cancer Gastrohepatic ligament lymphadenopathy representing metastasis 11/19/2023 CT abdomen/pelvis ([facility]) Mild wall thickening of the colon [...] (primary diagnosis) The patient presented 02/13/2024 to [facility] emergency room for evaluation of left [...] G89.3 Pain LUQ and lower abd. Continue [place] PRN. Pall med referral. Beto Vivar MD CC: Dr. Cong Montano documented in this encounter [facility] 12-06-2023 Nurse Note Patient Identification confirmed: yes. Injection given and documented on MAR per provider order. Amirah Koch MA documented in this encounter [facility] 12-06-2023 Nurse Note Patient Identification confirmed: yes. Injection given and documented on MAR per provider order. Amirah Koch MA documented in this encounter [facility] 11-17-2023 History of Present illness Narrative [address] [facility] [address] Patient: Kaya Schilling Date of : [...] FAMILY MEDICINE [address] [place] [address] Patient Location: Patient's home Video Visit Consent [...] that there are some limitations compared to axum-hw-dtga evaluations. The patient consented to the presence of additional virtual and/or in-person participants. We elected to proceed. Problem List Items Addressed This Visit Endocrine Type 2 diabetes mellitus without complication, without long-term current use of insulin ([facility]) Hyperparathyroidism ([facility]) Other Visit Diagnoses Diarrhea of presumed infectious [...] Medical History: Diagnosis Date Bipolar 1 disorder ([facility]) Elevated parathyroid hormone Empty sella ([facility]) Female bladder prolapse Hepatitis C Hypercalcemia Hypothyroidism Manic depression ([facility]) Migraine Scoliosis Past Surgical History: Procedure Laterality [...] complication, without long-term current use of insulin ([facility]) Hyperparathyroidism ([facility]) Other orders - promethazine (PHENERGAN) 12.5 mg tablet; Take 1 tablet (12.5 mg total) by mouth every 8 (eight) hours as needed for nausea or vomiting for up to 5 days. Follow-up: Since her diarrhea symptoms have been persistent for the last week we will check stool pathogen panel and C diff. she agrees to go to [facility] for this. Risks of Phenergan [...] to tolerate PO intake she should call [phone] 20min DAHLIA JANE APRN-CNP 11/20/23 0914 documented in this encounter [facility] 11-11-2023 Miscellaneous Notes Pt calls states she has that new virus called Norovirus. She is feeling better. Told her to try the brat diet documented in this encounter [facility] 11-11-2023 Telephone encounter Note Pt calls states she has that new virus called Norovirus. She is feeling better. Told her to try the brat diet [facility] 11-05-2023 Miscellaneous Notes Pt called and just wanted to let us know she is sick and I told her we are closed and please if drink plenty of water and if she gets worse please go to Local hospital to be checked documented in this encounter [facility] 11-05-2023 Telephone encounter Note Pt called and just wanted to let us know she is sick and I told her we are closed and please if drink plenty of water and if she gets worse please go to Local hospital to be checked [facility] 07-03-2022 Miscellaneous Notes per answering service, pt cx today rv and tx appointments due to being up all night sick will call back to reschedule. documented in this encounter [facility] 06-04-2022 Miscellaneous Notes Patient left a message on my voicemail today to get this appointment scheduled. Call placed to patient, no answer. Left message on voicemail to call back to reschedule. Roberta Vaughan Per Answering Service message patient called requested to cancel this appointment and stated she will call us back to reschedule. Hanna Perdomo Pss documented in this encounter [facility] 05-29-2022 Miscellaneous Notes Patient is listed on the First Time Treatment List for a non-oncology treatment. No psychosocial assessment is indicated. CHUCHO Francis documented in this encounter [facility] 05-28-2022 Miscellaneous Notes Called Amada Nash spoke with Luisa. She states they have received this referral and their client support coordinator will be calling patient soon to schedule. Hanna Perdomo Pss Records faxed to [facility]. Appointments moved to next (06/04). Called [...] evaluate as well,. documented in this encounter [facility] 05-26-2022 Miscellaneous Notes Patient scheduled to see you on 06/04/22 for follow up with labs. Please add lab orders. Thanks. Amirah Koch MA documented in this encounter [facility] 05-22-2022 History of Present illness Narrative PATIENT NAME: Kaya Schilling CLINIC NO.: [id number] ATTENDING PHYSICIAN: Ignacio Sam MD DATE OF [...] disease) (HCC) Diabetes mellitus (adult onset) ([facility]) History of broken nose had septoplasty Manic depression ([facility]) Dr. Rees Neck pain Pneumonia [...] 11/03/2013 1.21 1.00 - 4.00 k/uL Final [place]% Date Value Ref Range Status 11/03/2013 7.7 % Final Abs [place] Date Value Ref Range Status 11/03/2013 0.36 0.00 - 0.86 k/uL Final Abs [place] Date Value Ref Range Status 11/03/2013 0.12 0.00 - 0.45 k/uL Final Bas[place]% Date Value Ref Range Status 11/03/2013 0.9 % Final Abs Baso Date Value Ref Range Status 11/03/2013 0.04 0.00 - 0.10 k/uL Final Comment: Performed at [facility] , [address] [place] [address] PATH: IMAGING: ASSESSMENT AND PLAN: Kaya Schilling [...] below. Ignacio Sam M.D. Hematology/Medical Oncology [facility] [phone] CC: Kostas Steward DO I spent a total of 40 minutes on the date of the service which included preparing to see the patient, jqws-we-ybnt patient care, completing clinical documentation, obtaining and/or reviewing separately obtained history, performing a medically appropriate examination, counseling and educating the patient/family/caregiver, and ordering medications, tests, or procedures. documented in this encounter [facility] 04-23-2022 Evaluation note Encounter Date Diagnosis Assessment Notes Apr, Irritable bowel syndrome with constipation (ICD-10 - K58.1) [facility] Other 12-13-2021 Evaluation note* Encounter Date Diagnosis Assessment Notes Treatment Notes Treatment Clinical Notes Aug, Irritable bowel syndrome with constipation (ICD-10 - K58.1) [facility] Other 11-17-2021 Evaluation note* Encounter Date Diagnosis Assessment Notes Treatment Notes Treatment Clinical Notes Jul, Redundant colon (ICD-10 - Q43.8) Jul, Irritable bowel syndrome with constipation (ICD-10 - K58.1) Increase lactuose to 60cc bid Colonoscopy Jul, Elevated alkaline phosphatase level (ICD-10 - R74.8) Jul, History of hepatitis C (ICD-10 - Z86.19) Jul, Diabetes (ICD-10 - E11.9) [facility] Other 09-27-2021 Evaluation note* Encounter Date Diagnosis [...] mellitu s) (ICD-10 - E11.9) She has quz-odafxjz-wmysiufoa type 2 diabetes mellitus currently takes oral [...] avoid any calcium and vitamin D supplement. [facility] Other Evaluation noteNo [employer] Other Evaluation note* Diagnosis Anemia, normocytic normochromic- Primary Anemia, unspecified [facility] Diagnosis Iron deficiency anemia due to chronic blood loss Iron deficiency anemia secondary to blood loss (chronic) Vitamin B12 deficiency anemia due to selective vitamin B12 malabsorption with proteinuria Other vitamin B12 deficiency anemia [facility] Diagnosis Anemia, normocytic normochromic- Primary Anemia, unspecified [facility] Diagnosis Disorder of airway Unspecified disease of respiratory system Airway obstruction, anatomic Other diseases of respiratory system, not elsewhere classified [facility] Diagnosis Acquired hypothyroidism Unspecified hypothyroidism [facility] Diagnosis Type 2 diabetes mellitus without complication, without long-term current use of insulin ([facility]) [facility] Diagnosis Diarrhea of presumed infectious origin- Primary Weakness Other malaise and fatigue Type 2 diabetes mellitus without complication, without long-term current use of insulin ([facility]) Hyperparathyroidism ([facility]) Hyperparathyroidism, unspecified [facility] Diagnosis Megaloblastic anemia due to vitamin B12 deficiency- Primary Other vitamin B12 deficiency anemia [facility] Diagnosis Malignant neoplasm of cardia of [...] neoplasm of cardia [facility] Diagnosis Megaloblastic anemia due to vitamin B12 deficiency- Primary Other vitamin B12 deficiency anemia [facility] Diagnosis Megaloblastic anemia due to vitamin B12 deficiency- Primary Other vitamin B12 deficiency anemia Iron deficiency anemia due to chronic blood loss Iron deficiency anemia secondary to blood loss (chronic) [facility] Diagnosis Palliative care by specialist- [...] condition classified elsewhere [facility] Diagnosis 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 Malignant neoplasm of cardia Severe protein-calorie malnutrition (HCC) Other severe protein-calorie malnutrition [facility] Diagnosis Megaloblastic anemia due to [...] pain (acute) (chronic) [facility] Diagnosis Hypercalcemia of malignancy- Primary Hypercalcemia [...] by specialist [facility] Diagnosis 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 Malignant neoplasm of cardia [facility] Diagnosis 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 Malignant neoplasm of cardia [facility] Diagnosis Weight loss Loss of weight Anxiety with depression Nausea Nausea alone [facility] [...] [facility] Diagnosis Gastric carcinoma (HCC)- Primary Malignant neoplasm of stomach, unspecified site [facility] Diagnosis Megaloblastic anemia due to vitamin B12 deficiency- Primary Other vitamin B12 deficiency anemia Hypercalcemia of malignancy Hypercalcemia [facility] Diagnosis 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 Malignant neoplasm of cardia Cancer related pain Neoplasm related pain (acute) (chronic) Iron deficiency anemia due to chronic blood loss Iron deficiency anemia secondary to blood loss (chronic) B12 deficiency Other B-complex deficiencies Hypercalcemia of malignancy Hypercalcemia Acquired hypothyroidism Unspecified hypothyroidism documented in this encounter [facility] note* Diagnosis 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) Malignant neoplasm of cardia Cancer related pain Neoplasm related pain (acute) (chronic) Palliative care by specialist documented in this encounter [facility] general Narrative - Reported* Type Description [...] Surgical History LAPAROSCOPY Hospitalization History SEE ABOVE [facility] Other InstructionsNot on filedocumented in this encounter [employer] SystemInstructionsNot on filedocumented in this encounter [employer] SystemInstructionsNot on filedocumented in this encounter [facility] (narrative)* Diagnostic Procedure Only (Routine) - Closed Specialty Diagnoses / Procedures Referred By Graham t Referred To Contact CT IMAGING Diagnoses Disorder of airway Airway obstruction, anatomic Procedures CT NECK SOFT TISSUE WO IVCON CT SCAN OF NECK TISSUE Trev Shah MD [address] [place] [address] [place] [address] Referral ID Status Reason Start Date Expiration Date V isits Requested Visits Authorized [id number] Closed Auto-Generat ed Referral Patient Cleared - Admin/Chairm an/Director advise to proceed or did not respond 01/21/2021 03/22/2021 3 3 [facility] for referral (narrative)* Consultation (Routine) - Pending Review Specialty Diagnoses / Procedures [facility] To [facility] Dk Aguilera, [employer] [address] [place] [id number] [address] Referral ID Status Reason Start Date Expiration Date Visits Requested Visits Authorized [id number] Pending Review Specialty Services Required 11/18/2023 11/17/2024 1 1 [facility] for referral (narrative)* Diagnostic Procedure Only (Routine) - Open Specialty Diagnoses / Procedures [facility]erred To Contact MOLECULAR & FUNCTIONAL IMAGING Diagnoses 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) Procedures NM PET/CT SKULL-THIGH INITIAL PET IMAGING CT ATTENUATION SKULL BASE MID-THIGH Beto Vivar MD [address] [place] [address] [place] [address] Molecular & Functional Imaging [address] [place] [address] Referral ID Status Reason Start Date Expiration Date V isits Requested Visits Authorized [id number] Open Auto-Generate d Referral 03/23/2024 04/22/2025 1 1 * MRI/CT (Routine) - Open Specialty Diagnoses / Procedures [facility] To Contact CT IMAGING Diagnoses 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) Procedures CT ABDOMEN W IVCON CT ABDOMEN W/CONTRAST Beto Vivar MD [address] [place] [address] [place] [address] [place] [address] Referral ID Status Reason Start Date Expiration Date V isits Requested Visits Authorized [id number] Open Auto-Generate d Referral 03/23/2024 04/22/2025 1 1 * MRI/CT (Routine) - Open Specialty Diagnoses / Procedures [facility] Ref[facility] To Contact CT IMAGING Diagnoses 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) Procedures CT CHEST W IVCON DIAGNOSTIC COMPUTED TOMOGRAPHY THORAX W/CONTRAST Beto Vivar MD [address] [place] [address] [place] [address] [place] [address] Referral ID Status Reason Start Date Expiration Date V isits Requested Visits Authorized [id number] Open Auto-Generate d Referral 03/23/2024 04/22/2025 1 1 * Consult, Test, Treat (Routine) - Authorized Specialty Diagnoses / Procedures [facility] Referred To Contact Diagnoses 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) Cancer related pain Procedures CONSULT TO PALLIATIVE CARE OFFICE/OUTPATIENT [facility] 60 MINUTES Beto Vivar MD [address] [place] [address] [place] [address] Referral ID Status Reason Start Date Expiration Date Visits Requested Visits Authorized [id number] Authorized PCP Requested Referral 03/23/2024 03/23/2025 1 1 [facility] for referral (narrative)* Diagnostic Procedure Only (Routine) - Denied Specialty Diagnoses / Procedures Referred By [facility] Referred To Contact MOLECULAR & FUNCTIONAL IMAGING Diagnoses 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) Procedures NM PET/CT SKULL-THIGH INITIAL PET IMAGING CT ATTENUATION SKULL BASE MID-THIGH Beto Vivar MD [address] [place] [address] [place] [address] Molecular & Functional Imaging [address] [place] [address] Referral ID Status Reason Start Date Expiration Date V isits Requested Visits Authorized [id number] Denied Auto-Generat ed Referral Clearance Not Met - Admin/Chairm an/Director Advise to Postpone/Res chedule or Not Proceed 04/28/2024 06/28/2024 1 0 [facility] Diagnostic Procedure Only (Routine) - Closed Specialty Diagnoses / Procedures Referred By Contac t Referred To Contact CT IMAGING Diagnoses Disorder of airway Airway obstruction, anatomic Procedures CT NECK SOFT TISSUE WO IVCON CT SCAN OF NECK TISSUE Trev Shah MD [address] [facility] [address] [place] [address] [place] [address] Referral ID Status Reason Start Date Expiration Date V isits Requested Visits Authorized [id number] Closed Auto-Generat ed Referral Patient Cleared - Admin/Chairm an/Director advise to proceed or did not respond 01/21/2021 03/22/2021 3 3 [facility] Summary Purpose Family History No Family History [...] Referral Specialty Diagnoses / Procedures Referred By Contsorin t Referred To Contact CT IMAGING Diagnoses 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) Procedures CT ABDOMEN W IVCON CT ABDOMEN W/CONTRAST Beto Vivar MD [address] [place] [address] [place] [address] [place] [address] Referral ID Status Reason Start Date Expiration Date V isits Requested Visits Authorized [id number] Closed Auto-Generate d Referral 03/24/2024 05/23/2024 1 1 Specialty Diagnoses / Procedures Referred By Contac t Referred To Contact CT IMAGING Diagnoses 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) Procedures CT CHEST W IVCON DIAGNOSTIC COMPUTED TOMOGRAPHY THORAX W/CONTRAST Beto Vivar MD [address] [place] [address] [place] [address] [place] [address] Referral ID Status Reason Start Date Expiration Date V isits Requested Visits Authorized [id number] Closed Auto-Generate d Referral 03/24/2024 05/23/2024 1 1 Specialty Diagnoses / Procedures Referred By Contac t Referred To Contact Diagnoses 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) Cancer related pain Lillie Richter, POURED CONCRETE WALL TECHNICIAN.INSPECTOR [employer]GL[employer] [address] [place] [address] Referral ID Status Reason Start Date Expiration Date Visits Re quested Visits Authorized [id number] Closed 1 1 Specialty Diagnoses / Procedures Referred By Contac t Referred To Contact Lillie Richter, POURED CONCRETE WALL TECHNICIAN.INSPECTOR E[employer]GL[employer] [address] [place] [address] Referral ID Status Reason Start Date Expiration Date Visits Re quested Visits Authorized [id number] Closed 1 1 Additional Source Comments INFORMATION SOURCE (unrecogn ized section and content) DATE CREATED AUTHOR 02/27/2021 [facility] DATE CREATED AUTHOR AUTHOR'S ORGANIZ ATION 09/03/2022 [facility] DATE CREATED AUTHOR AUTHOR'S ORGANIZ ATION 01/20/[address] [facility] DATE CREATED AUTHOR AUTHOR'S ORGANIZ ATION 04/12/2024 [facility] DATE CREATED AUTHOR AUTHOR'S ORGANIZ ATION 04/23/2024 [facility] DATE CREATED AUTHOR AUTHOR'S ORGANIZ ATION 04/26/2024 [facility] DATE CREATED AUTHOR AUTHOR'S ORGANIZ ATION 04/27/2024 [facility] DATE CREATED AUTHOR AUTHOR'S ORGANIZ ATION 05/03/2024 [facility] DATE CREATED AUTHOR AUTHOR'S ORGANIZ ATION 05/06/2024 [facility] DATE CREATED AUTHOR AUTHOR'S ORGANIZ ATION 05/14/2024 [facility] DATE CREATED AUTHOR AUTHOR'S ORGANIZ ATION 06/03/2024 [facility] REASON FOR VISIT (unrecogniz ed section and [...] INJECTION PER 1 MG Beto Vivar MD [address] [place] [address] [place] [address] [facility] Rebekah [address] [place] [address] Referral ID Status Reason Start Date Expiration Date V isits Requested Visits Authorized [id number] Authorized 03/23/2024 09/05/2024 99 99 Reason Comments Nutrition Telephone Reason Comments Patient Question Patient Update Reason Comments External Referrals/resources Reason Comments Care Coordination Scan Results Reason Comments Care Coordination Thoracic Surgery Con sult Reason Comments Patient Question Corral Boss - Other Reason Comments Palliative Medicine New patient consult Specialty Diagnoses / Procedures Referred By Contac t Referred To Contact Diagnoses 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) Cancer related pain Procedures CONSULT TO PALLIATIVE CARE OFFICE/OUTPATIENT NEW HIGH MDM 60 MINUTES Beto Vivar MD [address] [place] [address] [place] [address] Referral ID Status Reason Start Date Expiration Date V isits Requested Visits Authorized [id number] Closed PCP Requested Referral 03/23/2024 03/23/2025 1 1 Reason Comments Medication Problem Reason Comments Care Coordination Stomach pain Specialty Diagnoses / Procedures Referred By Contac t Referred To Contact Diagnoses Hypercalcemia of malignancy Beto Vivar MD [address] [place] [address] [place] [address] [facility] [place] [place] [address] Referral ID Status Reason Start Date Expiration Date V isits Requested Visits Authorized [id number] New Request 04/18/2024 07/17/2024 1 1 Reason [...] Reason Comments Returning Patient's Call Reason Comments [facility] Boss - Other Missed Appointm ent Reason Onset Date Comments Refill Request 04/28/2024 Reason Onset Date Comments Simulation Request Form 05/03/2024 Reason Comments Med Change Request Reason Comments Radiology CT Specialty Diagnoses / Procedures [facility] Diagnoses 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) Procedures CT CHEST W IVCON DIAGNOSTIC COMPUTED TOMOGRAPHY THORAX W/CONTRAST Beto Vivar MD [address] [facility] [place] [address] [facility] [place] [address] Referral ID Status Reason Start Date Expiration Date V isits Requested Visits Authorized [id number] Closed Auto-Generate d Referral 03/24/2024 05/23/2024 1 1 Reason Comments Radiology NM Specialty Diagnoses / Procedures [facility] Referred To Contact MOLECULAR & FUNCTIONAL IMAGING Diagnoses 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) Procedures NM PET/CT SKULL-THIGH INITIAL PET IMAGING CT ATTENUATION SKULL BASE MID-THIGH Beto Vivar MD [address] [facility] [place] [address] Molecular & Functional Imaging [address] [place] [address] Referral ID Status Reason Start Date Expiration Date V isits Requested Visits Authorized [id number] Denied Auto-Generat ed Referral Clearance Not Met - Admin/Chairm an/Director Advise to Postpone/Res chedule or Not Proceed 04/28/2024 06/28/2024 1 0 Reason Comments Care Coordination Hospice Referral Reason Comments Care Coordination Discharge Follow Up Call Reason Comments Care Coordination Hospital Admission Reason Comments Symptom Management Reason Comments Care Coordination Pain Request Reason Comments Care Coordination Pt Update Reason Comments Care Coordination Follow Up Call Reason Comments Late gastric cancer ( Follow up hospital Reason Onset Date Comments Refill Request 05/19/2024 Reason Comments No Show Reason Onset Date Comments Appointment 05/25/2024 Reason Comments Care Coordination Appointment; Pain Re quest Source Comments (unrecognize d section and content) In the event this informatio n is protected by the Federal Confidentiality of Alcohol and Drug Abuse Patient Records regulations: The Federal rules restrict any use of the information to criminally investigate or prosecute any alcohol or drug abuse patient.[facility] the event this information is protected by the Federal Confidentiality of Alcohol and Drug Abuse Patient Records regulations: The Federal rules restrict any use of the information to criminally investigate or prosecute any alcohol or drug abuse patient.[facility] the event this information is protected by the Federal Confidentiality of Alcohol and Drug Abuse Patient Records regulations: The Federal rules restrict any use of the information to criminally investigate or prosecute any alcohol or drug abuse patient.[facility] the event this information is protected by the Federal Confidentiality of Alcohol and Drug Abuse Patient Records regulations: The Federal rules restrict any use of the information to criminally investigate or prosecute any alcohol or drug abuse patient.[facility] the event this information is protected by the Federal Confidentiality of Alcohol and Drug Abuse Patient Records regulations: The Federal rules restrict any use of the information to criminally investigate or prosecute any alcohol or drug abuse patient.[facility] the event this information is protected by the Federal Confidentiality of Alcohol and Drug Abuse Patient Records regulations: The Federal rules restrict any use of the information to criminally investigate or prosecute any alcohol or drug abuse patient.[facility] the event this information is protected by the Federal Confidentiality of Alcohol and Drug Abuse Patient Records regulations: The Federal rules restrict any use of the information to criminally investigate or prosecute any alcohol or drug abuse patient.[facility] the event this information is protected by the Federal Confidentiality of Alcohol and Drug Abuse Patient Records regulations: The Federal rules restrict any use of the information to criminally investigate or prosecute any alcohol or drug abuse patient.[facility] the event this information is protected by the Federal Confidentiality of Alcohol and Drug Abuse Patient Records regulations: The Federal rules restrict any use of the information to criminally investigate or prosecute any alcohol or drug abuse patient.[facility] the event this information is protected by the Federal Confidentiality of Alcohol and Drug Abuse Patient Records regulations: The Federal rules restrict any use of the information to criminally investigate or prosecute any alcohol or drug abuse patient.[facility] the event this information is protected by the Federal Confidentiality of Alcohol and Drug Abuse Patient Records regulations: The Federal rules restrict any use of the information to criminally investigate or prosecute any alcohol or drug abuse patient.[facility] the event this information is protected by the Federal Confidentiality of Alcohol and Drug Abuse Patient Records regulations: The Federal rules restrict any use of the information to criminally investigate or prosecute any alcohol or drug abuse patient.[facility] the event this information is protected by the Federal Confidentiality of Alcohol and Drug Abuse Patient Records regulations: The Federal rules restrict any use of the information to criminally investigate or prosecute any alcohol or drug abuse patient.[facility] the event this information is protected by the Federal Confidentiality of Alcohol and Drug Abuse Patient Records regulations: The Federal rules restrict any use of the information to criminally investigate or prosecute any alcohol or drug abuse patient.[facility] the event this information is protected by the Federal Confidentiality of Alcohol and Drug Abuse Patient Records regulations: The Federal rules restrict any use of the information to criminally investigate or prosecute any alcohol or drug abuse patient.[facility] the event this information is protected by the Federal Confidentiality of Alcohol and Drug Abuse Patient Records regulations: The Federal rules restrict any use of the information to criminally investigate or prosecute any alcohol or drug abuse patient.[facility] the event this information is protected by the Federal Confidentiality of Alcohol and Drug Abuse Patient Records regulations: The Federal rules restrict any use of the information to criminally investigate or prosecute any alcohol or drug abuse patient.[facility] the event this information is protected by the Federal Confidentiality of Alcohol and Drug Abuse Patient Records regulations: The Federal rules restrict any use of the information to criminally investigate or prosecute any alcohol or drug abuse patient.[facility] the event this information is protected by the Federal Confidentiality of Alcohol and Drug Abuse Patient Records regulations: The Federal rules restrict any use of the information to criminally investigate or prosecute any alcohol or drug abuse patient.[facility] the event this information is protected by the Federal Confidentiality of Alcohol and Drug Abuse Patient Records regulations: The Federal rules restrict any use of the information to criminally investigate or prosecute any alcohol or drug abuse patient.[facility] the event this information is protected by the Federal Confidentiality of Alcohol and Drug Abuse Patient Records regulations: The Federal rules restrict any use of the information to criminally investigate or prosecute any alcohol or drug abuse patient.[facility] the event this information is protected by the Federal Confidentiality of Alcohol and Drug Abuse Patient Records regulations: The Federal rules restrict any use of the information to criminally investigate or prosecute any alcohol or drug abuse patient.[facility] the event this information is protected by the Federal Confidentiality of Alcohol and Drug Abuse Patient Records regulations: The Federal rules restrict any use of the information to criminally investigate or prosecute any alcohol or drug abuse patient.[facility] the event this information is protected by the Federal Confidentiality of Alcohol and Drug Abuse Patient Records regulations: The Federal rules restrict any use of the information to criminally investigate or prosecute any alcohol or drug abuse patient.[facility] the event this information is protected by the Federal Confidentiality of Alcohol and Drug Abuse Patient Records regulations: The Federal rules restrict any use of the information to criminally investigate or prosecute any alcohol or drug abuse patient.[facility] the event this information is protected by the Federal Confidentiality of Alcohol and Drug Abuse Patient Records regulations: The Federal rules restrict any use of the information to criminally investigate or prosecute any alcohol or drug abuse patient.[facility] the event this information is protected by the Federal Confidentiality of Alcohol and Drug Abuse Patient Records regulations: The Federal rules restrict any use of the information to criminally investigate or prosecute any alcohol or drug abuse patient.[facility] the event this information is protected by the Federal Confidentiality of Alcohol and Drug Abuse Patient Records regulations: The Federal rules restrict any use of the information to criminally investigate or prosecute any alcohol or drug abuse patient.[facility] the event this information is protected by the Federal Confidentiality of Alcohol and Drug Abuse Patient Records regulations: The Federal rules restrict any use of the information to criminally investigate or prosecute any alcohol or drug abuse patient.[facility] the event this information is protected by the Federal Confidentiality of Alcohol and Drug Abuse Patient Records regulations: The Federal rules restrict any use of the information to criminally investigate or prosecute any alcohol or drug abuse patient.[facility] the event this information is protected by the Federal Confidentiality of Alcohol and Drug Abuse Patient Records regulations: The Federal rules restrict any use of the information to criminally investigate or prosecute any alcohol or drug abuse patient.[facility] the event this information is protected by the Federal Confidentiality of Alcohol and Drug Abuse Patient Records regulations: The Federal rules restrict any use of the information to criminally investigate or prosecute any alcohol or drug abuse patient.[facility] the event this information is protected by the Federal Confidentiality of Alcohol and Drug Abuse Patient Records regulations: The Federal rules restrict any use of the information to criminally investigate or prosecute any alcohol or drug abuse patient.[facility] the event this information is protected by the Federal Confidentiality of Alcohol and Drug Abuse Patient Records regulations: The Federal rules restrict any use of the information to criminally investigate or prosecute any alcohol or drug abuse patient.[facility] the event this information is protected by the Federal Confidentiality of Alcohol and Drug Abuse Patient Records regulations: The Federal rules restrict any use of the information to criminally investigate or prosecute any alcohol or drug abuse patient.[facility] the event this information is protected by the Federal Confidentiality of Alcohol and Drug Abuse Patient Records regulations: The Federal rules restrict any use of the information to criminally investigate or prosecute any alcohol or drug abuse patient.[facility] the event this information is protected by the Federal Confidentiality of Alcohol and Drug Abuse Patient Records regulations: The Federal rules restrict any use of the information to criminally investigate or prosecute any alcohol or drug abuse patient.[facility] the event this information is protected by the Federal Confidentiality of Alcohol and Drug Abuse Patient Records regulations: The Federal rules restrict any use of the information to criminally investigate or prosecute any alcohol or drug abuse patient.[facility] the event this information is protected by the Federal Confidentiality of Alcohol and Drug Abuse Patient Records regulations: The Federal rules restrict any use of the information to criminally investigate or prosecute any alcohol or drug abuse patient.[facility] the event this information is protected by the Federal Confidentiality of Alcohol and Drug Abuse Patient Records regulations: The Federal rules restrict any use of the information to criminally investigate or prosecute any alcohol or drug abuse patient.[facility] the event this information is protected by the Federal Confidentiality of Alcohol and Drug Abuse Patient Records regulations: The Federal rules restrict any use of the information to criminally investigate or prosecute any alcohol or drug abuse patient.[facility] the event this information is protected by the Federal Confidentiality of Alcohol and Drug Abuse Patient Records regulations: The Federal rules restrict any use of the information to criminally investigate or prosecute any alcohol or drug abuse patient.[facility] the event this information is protected by the Federal Confidentiality of Alcohol and Drug Abuse Patient Records regulations: The Federal rules restrict any use of the information to criminally investigate or prosecute any alcohol or drug abuse patient.[facility] the event this information is protected by the Federal Confidentiality of Alcohol and Drug Abuse Patient Records regulations: The Federal rules restrict any use of the information to criminally investigate or prosecute any alcohol or drug abuse patient.[facility] the event this information is protected by the Federal Confidentiality of Alcohol and Drug Abuse Patient Records regulations: The Federal rules restrict any use of the information to criminally investigate or prosecute any alcohol or drug abuse patient.[facility] the event this information is protected by the Federal Confidentiality of Alcohol and Drug Abuse Patient Records regulations: The Federal rules restrict any use of the information to criminally investigate or prosecute any alcohol or drug abuse patient.[facility] the event this information is protected by the Federal Confidentiality of Alcohol and Drug Abuse Patient Records regulations: The Federal rules restrict any use of the information to criminally investigate or prosecute any alcohol or drug abuse patient.[facility] the event this information is protected by the Federal Confidentiality of Alcohol and Drug Abuse Patient Records regulations: The Federal rules restrict any use of the information to criminally investigate or prosecute any alcohol or drug abuse patient.[facility] the event this information is protected by the Federal Confidentiality of Alcohol and Drug Abuse Patient Records regulations: The Federal rules restrict any use of the information to criminally investigate or prosecute any alcohol or drug abuse patient.[facility] the event this information is protected by the Federal Confidentiality of Alcohol and Drug Abuse Patient Records regulations: The Federal rules restrict any use of the information to criminally investigate or prosecute any alcohol or drug abuse patient.[facility] the event this information is protected by the Federal Confidentiality of Alcohol and Drug Abuse Patient Records regulations: The Federal rules restrict any use of the information to criminally investigate or prosecute any alcohol or drug abuse patient.[facility] the event this information is protected by the Federal Confidentiality of Alcohol and Drug Abuse Patient Records regulations: The Federal rules restrict any use of the information to criminally investigate or prosecute any alcohol or drug abuse patient.[facility] the event this information is protected by the Federal Confidentiality of Alcohol and Drug Abuse Patient Records regulations: The Federal rules restrict any use of the information to criminally investigate or prosecute any alcohol or drug abuse patient.[facility] the event this information is protected by the Federal Confidentiality of Alcohol and Drug Abuse Patient Records regulations: The Federal rules restrict any use of the information to criminally investigate or prosecute any alcohol or drug abuse patient.[facility]burgIn the event this information is protected by the Federal Confidentiality of Alcohol and Drug Abuse Patient Records regulations: The Federal rules restrict any use of the information to criminally investigate or prosecute any alcohol or drug abuse patient.[facility] the event this information is protected by the Federal Confidentiality of Alcohol and Drug Abuse Patient Records regulations: The Federal rules restrict any use of the information to criminally investigate or prosecute any alcohol or drug abuse patient.[facility] the event this information is protected by the Federal Confidentiality of Alcohol and Drug Abuse Patient Records regulations: The Federal rules restrict any use of the information to criminally investigate or prosecute any alcohol or drug abuse patient.[facility] the event this information is protected by the Federal Confidentiality of Alcohol and Drug Abuse Patient Records regulations: The Federal rules restrict any use of the information to criminally investigate or prosecute any alcohol or drug abuse patient.[facility]burg[facility] the event this information is protected by the Federal Confidentiality of Alcohol and Drug Abuse Patient Records regulations: The Federal rules restrict any use of the information to criminally investigate or prosecute any alcohol or drug abuse patient.[facility]burg[facility] the event this information is protected by the Federal Confidentiality of Alcohol and Drug Abuse Patient Records regulations: The Federal rules restrict any use of the information to criminally investigate or prosecute any alcohol or drug abuse patient.[facility]burg[facility] the event this information is protected by the Federal Confidentiality of Alcohol and Drug Abuse Patient Records regulations: The Federal rules restrict any use of the information to criminally investigate or prosecute any alcohol or drug abuse patient.[facility]burg[facility] the event this information is protected by the Federal Confidentiality of Alcohol and Drug Abuse Patient Records regulations: The Federal rules restrict any use of the information to criminally investigate or prosecute any alcohol or drug abuse patient.[facility] the event this information is protected by the Federal Confidentiality of Alcohol and Drug Abuse Patient Records regulations: The Federal rules restrict any use of the information to criminally investigate or prosecute any alcohol or drug abuse patient.[facility]burg[facility] the event this information is protected by the Federal Confidentiality of Alcohol and Drug Abuse Patient Records regulations: The Federal rules restrict any use of the information to criminally investigate or prosecute any alcohol or drug abuse patient.[facility]burgIn the event this information is protected by the Federal Confidentiality of Alcohol and Drug Abuse Patient Records regulations: The Federal rules restrict any use of the information to criminally investigate or prosecute any alcohol or drug abuse patient.[facility] the event this information is protected by the Federal Confidentiality of Alcohol and Drug Abuse Patient Records regulations: The Federal rules restrict any use of the information to criminally investigate or prosecute any alcohol or drug abuse patient.[facility] the event this information is protected by the Federal Confidentiality of Alcohol and Drug Abuse Patient Records regulations: The Federal rules restrict any use of the information to criminally investigate or prosecute any alcohol or drug abuse patient.[facility] the event this information is protected by the Federal Confidentiality of Alcohol and Drug Abuse Patient Records regulations: The Federal rules restrict any use of the information to criminally investigate or prosecute any alcohol or drug abuse patient.[facility] the event this information is protected by the Federal Confidentiality of Alcohol and Drug Abuse Patient Records regulations: The Federal rules restrict any use of the information to criminally investigate or prosecute any alcohol or drug abuse patient.[facility] the event this information is protected by the Federal Confidentiality of Alcohol and Drug Abuse Patient Records regulations: The Federal rules restrict any use of the information to criminally investigate or prosecute any alcohol or drug abuse patient.[facility] the event this information is protected by the Federal Confidentiality of Alcohol and Drug Abuse Patient Records regulations: The Federal rules restrict any use of the information to criminally investigate or prosecute any alcohol or drug abuse patient.[facility]burg[facility] the event this information is protected by the Federal Confidentiality of Alcohol and Drug Abuse Patient Records regulations: The Federal rules restrict any use of the information to criminally investigate or prosecute any alcohol or drug abuse patient.[facility] Care Teams (unrecognized sec tion and content) Crate Opener Relationship Specialty Start Date End Date Kostas Steward DO [address] [place] [address] PCP - General Family Practice 05/14/22 Crate Opener Relationship Specialty Start Date End Date Kostas Steward DO [address] [place] [address] PCP - General Family Practice 05/14/22 Crate Opener Relationship Specialty Start Date End Date Kostas Steward, DO [address] [place] [address] PCP - General Family Medicine 05/14/22 Crate Opener Relationship Specialty Start Date End Date Kostas Steward, DO [address] [place] [address] PCP - General Family Medicine 05/14/22 Crate Opener Relationship Specialty Start Date End Date Kostas Steward, DO [address] [place] [address] PCP - General Family Medicine 05/14/22 Crate Opener Relationship Specialty Start Date End Date Kostas Steward, DO [address] [place] [address] PCP - General Family Medicine 05/14/22 Crate Opener Relationship Specialty Start Date End Date Kostas Steward, DO [address] [place] [address] PCP - General Family Medicine 05/14/22 Crate Opener Relationship Specialty Start Date End Date Conor Herrera PCP - General Family Medicine 10/25/13 05/13/22 Crate Opener Relationship Specialty Start Date End Date Kostas Steward DO [address] [place] [address] PCP - General Family Medicine 05/28/22 Crate Opener Relationship Specialty Start Date End Date Kostas Steward DO [address] [place] [address] PCP - General Family Medicine 05/28/22 Crate Opener Relationship Specialty Start Date End Date Kostas Steward DO [address] [place] [address] PCP - General Family Medicine 05/28/22 Crate Opener Relationship Specialty Start Date End Date Kostas Steward DO [address] [place] [address] PCP - General Family Medicine 05/14/22 Crate Opener Relationship Specialty Start Date End Date Kostas Steward DO [address] [place] [address] PCP - General Family Medicine 05/14/22 Crate Opener Relationship Specialty Start Date End Date Kostas Steward DO [address] [place] [address] PCP - General Family Medicine 05/14/22 Crate Opener Relationship Specialty Start Date End Date Kostas Steward DO [address] [place] [address] PCP - General Family Medicine 05/14/22 Crate Opener Relationship Specialty Start Date End Date Kostas Steward DO [address] [place] [address] PCP - General Family Medicine 05/14/22 Belen Carlton MD [address] [place] [address] [address] [place] [address] Hematology/Oncology 03/27/24 Crate Opener Relationship Specialty Start Date End Date Kostas Steward DO [address] [place] [address] PCP - General Family Medicine 05/14/22 Belen Carlton MD [address] [place] [address] [address] [place] [address] Hematology/Oncology 03/27/24 Crate Opener Relationship Specialty Start Date End Date Kostas StewardardDO [address] [place] [address] PCP - General Family Medicine 05/14/22 Belen Carlton MD [address] [place] [address] [address] [place] [address] Hematology/Oncology 03/27/24 Crate Opener Relationship Specialty Start Date End Date Kostas Steward DO [address] [place] [address] PCP - General Family Medicine 05/14/22 Belen Carlton MD [address] [place] [address] [place] [address] Hematology/Oncology 03/27/[address] [place] [address] [place] [address] Registered Dietitian Nutrition 04/03/24 Crate Opener Relationship Specialty Start Date End Date Kostas Steward DO [address] [place] [address] PCP - General Family Medicine 05/14/22 Belen Carlton MD [address] [place] [address] [place] [address] Hematology/Oncology 03/27/[address] [facility] [place] [address] Registered Dietitian Nutrition 04/03/24 Crate Opener Relationship Specialty Start Date End Date Kostas Steward DO [address] [place] [address] PCP - General Family Medicine 05/14/22 Belen Carlton MD [address] [place] [address] [place], [place] [id number] Hematology/Oncology 03/27/[address] [facility] [place] [address] Registered Dietitian Nutrition 04/03/24 Jackie Silverio, ADDING MACHINE OPERATOR Coding Director 04/07/24 Crate Opener Relationship Specialty Start Date End Date AprilKostas navas DO [address] [place] [address] PCP - General Family Medicine 05/14/22 Belen Carlton MD [address] [place] [address] [place], [place] [address] Hematology/Oncology 03/27/[address] [facility] [place] [address] Registered Dietitian Nutrition 04/03/24 Jackie Silverio, ADDING MACHINE OPERATOR Coding Director 04/07/24 Crate Opener Relationship Specialty Start Date End Date Kostas Steward DO [address] [place] [address] PCP - General Family Medicine 05/14/22 Belen Carlton MD [address] [place] [address] [address] [place], [place] [id number] Hematology/Oncology 03/27/[address] [facility] [place] [address] Registered Dietitian Nutrition 04/03/24 Jackie Silverio LSW Coding Director 04/07/24 Crate Opener Relationship Specialty Start Date End Date Kostas Steward DO [address] [place] [address] PCP - General Family Medicine 05/14/22 Belen Carlton MD [address] [place] [address] [address] [place], [place] [id number] Hematology/Oncology 03/27/[address] [facility] [place] [address] Registered Dietitian Nutrition 04/03/24 Jackie Silverio LSW Coding Director 04/07/24 Crate Opener Relationship Specialty Start Date End Date Kostas Steward DO [address] [place] [address] PCP - General Family Medicine 05/14/22 Belen Carlton MD [address] [place] [address] [address] [place], [place] [id number] Hematology/Oncology 03/27/[address] [facility] [place] [address] Registered Dietitian Nutrition 04/03/24 Jackie Silverio LSW Coding Director 04/07/24 Crate Opener Relationship Specialty Start Date End Date Kostas Steward DO [address] [place] [address] PCP - General Family Medicine 05/14/22 Belen Carlton MD [address] [place] [address] [address] [place] [id number] Hematology/Oncology 03/27/[address] [facility] [place] [address] Registered Dietitian Nutrition 04/03/24 Jackie Silverio, ADDING MACHINE OPERATOR Coding Director 04/07/24 Crate Opener Relationship Specialty Start Date End Date Kostas Steward DO [address] [place] [address] PCP - General Family Medicine 05/14/22 Belen Carlton MD [address] [place] [address] [place], [place] [address] Hematology/Oncology 03/27/[address] [facility] [place] [address] Registered Dietitian Nutrition 04/03/24 Jackie Silverio LSW Coding Director 04/07/24 Crate Opener Relationship Specialty Start Date End Date Kostas Steward DO [address] [place] [address] PCP - General Family Medicine 05/14/22 Belen Carlton MD [address] [place] [address] [place] [address] Hematology/Oncology 03/27/[address] [facility] [place] [address] Registered Dietitian Nutrition 04/03/24 Jackie Silverio, ADDING MACHINE OPERATOR Coding Director 04/07/24 Crate Opener Relationship Specialty Start Date End Date Kostas Steward DO [address] [place] [address] PCP - General Family Medicine 05/14/22 Belen Carlton MD [address] [place] [address] [place], [place] [id number] Hematology/Oncology 03/27/[address] [facility] [place] [address] Registered Dietitian Nutrition 04/03/24 Jackie Silverio, ADDING MACHINE OPERATOR Coding Director 04/07/24 Crate Opener Relationship Specialty Start Date End Date AprilKostas navas DO [address] [place] [address] PCP - General Family Medicine 05/14/22 Belen Carlton MD [address] [place] [address] [place], [place] [address] Hematology/Oncology 03/27/[address] [facility] [place] [address] Registered Dietitian Nutrition 04/03/24 Jackie Silverio, ADDING MACHINE OPERATOR Coding Director 04/07/24 Crate Opener Relationship Specialty Start Date End Date AprilKostas navas DO [address] [place] [address] PCP - General Family Medicine 05/14/22 Belen Carlton MD [address] [place] [address] [place], [place] [address] Hematology/Oncology 03/27/[address] [facility] [place] [address] Registered Dietitian Nutrition 04/03/24 Jcakie Silverio, ADDING MACHINE OPERATOR Coding Director 04/07/24 Crate Opener Relationship Specialty Start Date End Date Kostas Steward DO [address] [place] [address] PCP - General Family Medicine 05/14/22 Belen Carlton MD [address] [place] [address] [place], [place] [phone] Hematology/Oncology 03/27/[address] [place] [address] [place] [address] Registered Dietitian Nutrition 04/03/24 Jackie Silverio LSW Coding Director 04/07/24 Crate Opener Relationship Specialty Start Date End Date AprilKostas navas DO [address] [place] [address] PCP - General Family Medicine 05/14/22 Belen Carlton MD [address] [place] [address] [place], [place] [address] Hematology/Oncology 03/27/[address] [facility] [place] [address] Registered Dietitian Nutrition 04/03/24 Jackie Silverio LSW Coding Director 04/07/24 Crate Opener Relationship Specialty Start Date End Date Kostas Steward DO [address] [place] [address] PCP - General Family Medicine 05/14/22 Belen Carlton MD [address] [place] [address] [place], [place] [address] Hematology/Oncology 03/27/[address] [facility] [place] [address] Registered Dietitian Nutrition 04/03/24 Jackie Silverio, ADDING MACHINE OPERATOR Coding Director 04/07/24 Crate Opener Relationship Specialty Start Date End Date Aprileloise Kostas DiehlardDO [address] [place] [address] PCP - General Family Medicine 05/14/22 Belen Carlton MD [address] [place] [address] [place], [place] [address] Hematology/Oncology 03/27/[address] [facility] [place] [address] Registered Dietitian Nutrition 04/03/24 Jackie Silverio, [facility] Coding Director 04/07/24 Crate Opener Relationship Specialty Start Date End Date AprilKostas navas DO [address] [place] [address] PCP - General Family Medicine 05/14/22 Belen Carlton MD [address] [place] [address] [place], [place] [address] Hematology/Oncology 03/27/[address] [facility] [place] [address] Registered Dietitian Nutrition 04/03/24 Jackie Silverio, ADDING MACHINE OPERATOR Coding Director 04/07/24 Gisselle Bryant APRN.INSPECTOR [employer]GL[employer] [address] [facility] [place] [address] Nurse Practitioner Hematology/Oncology 04/20/24 Beto Vivar MD [address] [place] [address] [place] [address] Physician Hematology/Oncology 04/20/24 Lise Connolly, BORA [address] [facility] [place] [address] Specialty Corral Boss Hematology/Oncology 04/20/24 Crate Opener Relationship Specialty Start Date End Date Kostas Steward DO [address] [place] [address] PCP - General Family Medicine 05/14/22 Belen Carlton MD [address] [place], [place] [address]y [address] [place], [place] [address] Hematology/Oncology 03/27/[address] [place] [address] [place] [address] Registered Dietitian Nutrition 04/03/24 Jackie Silverio LSW Coding Director 04/07/24 Gisselle Bryant APRN.[employer] [address] [place] [address] [place] [address] Nurse Practitioner Hematology/Oncology 04/20/24 Beto Vivar MD [address] [place] [address] [place] [address] Physician Hematology/Oncology 04/20/24 Lise Connolly, BORA [address] [facility] [place] [address] Specialty Corral Boss Hematology/Oncology 04/20/24 Crate Opener Relationship Specialty Start Date End Date Kostas Steward DO [address] [place] [address] PCP - General Family Medicine 05/14/22 Belen Carlton MD [address] [place] [address] [place] [address] Hematology/Oncology 03/27/[address] [facility] [place] [address] Registered Dietitian Nutrition 04/03/24 Jackie Silverio LSW Coding Director 04/07/24 Gisselle Bryant, BERENICE.[employer] [address] [place] [address] [place] [address] Nurse Practitioner Hematology/Oncology 04/20/24 Beto Vivar MD [address] [place] [address] [place] [address] Physician Hematology/Oncology 04/20/24 Lise Connolly, BORA [address] [place] [address] [place] [address] Specialty Corral Boss Hematology/Oncology 04/20/24 Crate Opener Relationship Specialty Start Date End Date Kostas Steward DO [address] [place] [address] PCP - General Family Medicine 05/14/22 Belen Carlton MD [address] [place] [address] [place] [address] Hematology/Oncology 03/27/[address] [facility] [place] [address] Registered Dietitian Nutrition 04/03/24 Jackie Silverio, ADDING MACHINE OPERATOR Coding Director 04/07/24 Gisselle Bryant APRN.INS[employer]OR [employer] [address] [facility] [place] [address] Nurse Practitioner Hematology/Oncology 04/20/24 Beto Vivar MD [address] [facility] [place] [address] Physician Hematology/Oncology 04/20/24 Lise Connolly, BORA [address] [facility] [place] [address] Specialty Corral Boss Hematology/Oncology 04/20/24 Crate Opener Relationship Specialty Start Date End Date Kostas StewardDO [address] [place] [address] PCP - General Family Medicine 05/14/22 Belen Carlton MD [address] [place] [address] [address] [place], [place] [id number] Hematology/Oncology 03/27/[address] [place] [address] [place] [address] Registered Dietitian Nutrition 04/03/24 Jackie Silevrio LSW Coding Director 04/07/24 Gisselle Bryant, POURED CONCRETE WALL TECHNICIAN.[employer] [address] [place] [address] [place] [address] Nurse Practitioner Hematology/Oncology 04/20/24 Beto Vivar MD [address] [place] [address] [place] [address] Physician Hematology/Oncology 04/20/24 Lise Connolly, BORA [address] [facility] [place] [address] Specialty Corral Boss Hematology/Oncology 04/20/24 April Frye, RN Specialty Corral Boss 04/24/24 Lillie Richter, POURED CONCRETE WALL TECHNICIAN.INSPECTOR [employer]GLASS [address] [place] [address] [place] [address] Hospice & Palliative Medicine 04/24/24 Crate Opener Relationship Specialty Start Date End Date Kostas Steward DO [address] [place] [address] PCP - General Family Medicine 05/14/22 Belen Carlton MD [address] [place] [address] [address] [place] [address] Hematology/Oncology 03/27/[address] [place] [address] [place] [address] Registered Dietitian Nutrition 04/03/24 Jackie Silverio LSW Coding Director 04/07/24 Gisselle Bryant, POURED CONCRETE WALL TECHNICIAN.INSPECTOR [employer]GLASS [address] [place] [address] [place] [address] Nurse Practitioner Hematology/Oncology 04/20/24 Beto Vivar MD [address] [place] [address] [place] [address] Physician Hematology/Oncology 04/20/24 Lise Connolly, BORA [address] [facility] [place] [address] Specialty Corral Boss Hematology/Oncology 04/20/24 April Frye, RN Specialty Corral Boss 04/24/24 Lillie Richter, POURED CONCRETE WALL TECHNICIAN.INSPECTOR E[employer]GLASS [address] [place] [address] [place] [address] Hospice & Palliative Medicine 04/24/24 Crate Opener Relationship Specialty Start Date End Date Kostas StewardDO [address] [place] [address] PCP - General Family Medicine 05/14/22 Belen Carlton MD [address] [place] [address] [address] [place] [address] Hematology/Oncology 03/27/[address] [place] [address] [place] [address] Registered Dietitian Nutrition 04/03/24 Jackie Silverio LSW Coding Director 04/07/24 Gisselle Bryant, POURED CONCRETE WALL TECHNICIAN.INSPECT[employer] [address] [place] [address] [place] [address] Nurse Practitioner Hematology/Oncology 04/20/24 Beto Vivar MD [address] [place] [address] [place] [address] Physician Hematology/Oncology 04/20/24 Lise Connolly, BORA [address] [place] [address] [place] [address] Specialty Corral Boss Hematology/Oncology 04/20/24 April Frye, RN Specialty Corral Boss 04/24/24 Lillie Richter, POURED CONCRETE WALL TECHNICIAN.INSPECTOR E[employer]GLASS [address] [place] [address] [place] [address] Hospice & Palliative Medicine 04/24/24 Crate Opener Relationship Specialty Start Date End Date Bin Kostas Frederick DO [address] [place] [address] PCP - General Family Medicine 05/14/22 Belen Carlton MD [address] [place] [address] [place] [address] Hematology/Oncology 03/27/[address] [place] [address] [place] [address] Registered Dietitian Nutrition 04/03/24 Jackie Silverio LSW Coding Director 04/07/24 Gisselle Bryant, POURED CONCRETE WALL TECHNICIAN.INSPECTOR E[employer]GLASS [address] [place] [address] [place] [address] Nurse Practitioner Hematology/Oncology 04/20/24 Beto Vivar MD [address] [place] [address] [place] [address] Physician Hematology/Oncology 04/20/24 Lise Connolly, BORA [address] [place] [address] [place] [address] Specialty Corral Boss Hematology/Oncology 04/20/24 April Frye, RN Specialty Corral Boss 04/24/24 Lillie Richter, POURED CONCRETE WALL TECHNICIAN.INSPECTOR EYEGLASS [address] [place] [address] [place] [address] Hospice & Palliative Medicine 04/24/24 Crate Opener Relationship Specialty Start Date End Date Kostas Steward DO [address] [place] [address] PCP - General Family Medicine 05/14/22 Belen Carlton MD [address] [place] [address] [address] [place], [place] [id number] Hematology/Oncology 03/27/[address] [place] [place] [address] [place] [address] Registered Dietitian Nutrition 04/03/24 Jackie Silverio, ADDING MACHINE OPERATOR Coding Director 04/07/24 Gisselle Bryant, POURED CONCRETE WALL TECHNICIAN.INSPECTOR [employer] [address] [place] [address] [place] [address] Nurse Practitioner Hematology/Oncology 04/20/24 Beto Vivar MD [address] [place] [address] [place] [address] Physician Hematology/Oncology 04/20/24 Lise Connolly, BORA [address] [place] [address] [place] [address] Specialty Corral Boss Hematology/Oncology 04/20/24 April Frye, RN Specialty Corral Boss 04/24/24 Lillie Richter, POURED CONCRETE WALL TECHNICIAN.INSPECTOR E[employer]GLASS [address] [place] [address] [place] [address] Hospice & Palliative Medicine 04/24/24 Crate Opener Relationship Specialty Start Date End Date Kostas Steward DO [address] [place] [id number] PCP - General Family Medicine 05/14/22 Belen Carlton MD [address] [place] [address] [address] [place] [address] Hematology/Oncology 03/27/[address] [place] [address] [place] [address] Registered Dietitian Nutrition 04/03/24 Jackie Silverio LSW Coding Director 04/07/24 Gisselle Bryant, POURED CONCRETE WALL TECHNICIAN.INSPECTOR [employer]GLASS [address] [place] [address] [place] [address] Nurse Practitioner Hematology/Oncology 04/20/24 Beto Vivar MD [address] [place] [address] [place] [address] Physician Hematology/Oncology 04/20/24 Lise Connolly, BORA [address] [facility] [place] [address] Specialty Corral Boss Hematology/Oncology 04/20/24 April Frye, BORA Specialty Corral Boss 04/24/24 Lillie Richter, POURED CONCRETE WALL TECHNICIAN.INSPECTOR EYEGLASS [address] [place] [address] [place] [address] Hospice & Palliative Medicine 04/24/24 Crate Opener Relationship Specialty Start Date End Date BinJoseKostasburt Frederick DO [address] [place] [address] PCP - General Family Medicine 05/14/22 Belen Carlton MD [address] [place], [place] [address]y [address] [place] [address] Hematology/Oncology 03/27/[address] [place] [address] [place] [address] Registered Dietitian Nutrition 04/03/24 Jackie Silverio LSW Coding Director 04/07/24 Gisselle Bryant, POURED CONCRETE WALL TECHNICIAN.INSPECTOR [employer]GL[employer] [address] [place] [address] [place] [address] Nurse Practitioner Hematology/Oncology 04/20/24 Beto Vivar MD [address] [place] [address] [place] [address] Physician Hematology/Oncology 04/20/24 Lise Connolly, RN [address] [facility] [place] [address] Specialty Corral Boss Hematology/Oncology 04/20/24 April Frye, RN Specialty Corral Boss 04/24/24 Lillie Richter POURED CONCRETE WALL TECHNICIAN.INSPECTOR EYEGLASS [address] [place] [address] [place] [address] Hospice & Palliative Medicine 04/24/24 Crate Opener Relationship Specialty Start Date End Date Kostas Steward DO [address] [place] [address] PCP - General Family Medicine 05/14/22 Belen Carlton MD [address] [place], [place] [address]y [address] [place] [address] Hematology/Oncology 03/27/[address] [place] [address] [place] [address] Registered Dietitian Nutrition 04/03/24 Jackie Silverio LSW Coding Director 04/07/24 Gisselle Bryant, BERENICE.INSPECTOR [employer]GLASS [address] [place] [address] [place] [address] Nurse Practitioner Hematology/Oncology 04/20/24 Beto Vivar MD [address] [place] [address] [place] [address] Physician Hematology/Oncology 04/20/24 Lise Connolly, RN [address] [facility] [place] [address] Specialty Corral Boss Hematology/Oncology 04/20/24 April Frye, RN Specialty Corral Boss 04/24/24 Lillie Richter APRN.INSPECTOR E[employer]GLASS [address] [place] [address] [place] [address] Hospice & Palliative Medicine 04/24/24 Crate Opener Relationship Specialty Start Date End Date Kostas Steward DO [address] [place] [address] PCP - General Family Medicine 05/14/22 Belen Carlton MD [address] [place] [address] [address] [place], [place] [id number] Hematology/Oncology 03/27/[address] [place] [address] [place] [address] Registered Dietitian Nutrition 04/03/24 Jackie Silverio LSW Coding Director 04/07/24 Gisselle Bryant APRN.INSPECTOR [employer]GL[employer] [address] [place] [address] [place] [address] Nurse Practitioner Hematology/Oncology 04/20/24 Beto Vivar MD [address] [place] [address] [place] [address] Physician Hematology/Oncology 04/20/24 Lise Connolly, BORA [address] [facility] [place] [address] Specialty Corral Boss Hematology/Oncology 04/20/24 April Frye RN Specialty Corral Boss 04/24/24 Lillie Richter, POURED CONCRETE WALL TECHNICIAN.INSPECTOR EYEGLASS [address] [facility] [place] [address] Hospice & Palliative Medicine 04/24/24 Crate Opener Relationship Specialty Start Date End Date Kostas Steward DO [address] [place] [address] PCP - General Family Medicine 05/14/22 Belen Carlton MD [address] [place] [address] [address] [place] [address] Hematology/Oncology 03/27/[address] [facility] [place] [address] Registered Dietitian Nutrition 04/03/24 Jackie Silverio LSW Coding Director 04/07/24 Gisselle Bryant, POURED CONCRETE WALL TECHNICIAN.INSPECTOR EYEGLASS [address] [place] [address] [place] [address] Nurse Practitioner Hematology/Oncology 04/20/24 Beto Vivar MD [address] [facility] [place] [address] Physician Hematology/Oncology 04/20/24 Lise Connolly, BORA [address] [place] [address] [place] [address] Specialty Corral Boss Hematology/Oncology 04/20/24 April Frye, RN Specialty Corral Boss 04/24/24 Lillie Richter, POURED CONCRETE WALL TECHNICIAN.INSPECTOR EYEGLASS [address] [facility] [place] [phone] Hospice & Palliative Medicine 04/24/24 Crate Opener Relationship Specialty Start Date End Date Kostas Steward DO [address] [place] [address] PCP - General Family Medicine 05/14/22 Belen Carlton MD [address] [place], [place] [address]y [address] [place], [place] [id number] Hematology/Oncology 03/27/[address] [place] [address] [place] [address] Registered Dietitian Nutrition 04/03/24 Jackie Silverio LSW Coding Director 04/07/24 Gisselle Bryant, BERENICE.INSPECTOR EYEGLASS [address] [place] [address] [place] [address] Nurse Practitioner Hematology/Oncology 04/20/24 Beto Vivar MD [address] [place] [address] [place] [address] Physician Hematology/Oncology 04/20/24 Lise Connolly, BORA [address] [place] [address] [place] [address] Specialty Corral Boss Hematology/Oncology 04/20/24 April Frye, RN Specialty Corral Boss 04/24/24 Lillie Richter, POURED CONCRETE WALL TECHNICIAN.INSPECTOR EYEGLASS [address] [place] [address] [place] [phone] Hospice & Palliative Medicine 04/24/24 Crate Opener Relationship Specialty Start Date End Date Jeromeeloise Kostas Frederick [address] [place] [address] PCP - General Family Medicine 05/14/22 Belen Carlton MD [address] [place] [address] [address] [place] [address] Hematology/Oncology 03/27/[address] [facility] [place] [address] Registered Dietitian Nutrition 04/03/24 Crate Opener Relationship Specialty Start Date End Date Kostas Steward DO [address] [place] [address] PCP - General Family Medicine 05/14/22 Belen Carlton MD [address] [place] [address] [place] [address] Hematology/Oncology 03/27/[address] [place] [address] [place] [address] Registered Dietitian Nutrition 04/03/24 Jackie Silverio LSW Coding Director 04/07/24 Gisselle Bryant, POURED CONCRETE WALL TECHNICIAN.INSPECTOR EYEGLASS [address] [place] [address] [place] [address] Nurse Practitioner Hematology/Oncology 04/20/24 Beto Vivar MD [address] [place] [address] [place] [address] Physician Hematology/Oncology 04/20/24 Lise Connolly, BORA [address] [place] [address] [place] [address] Specialty Corral Boss Hematology/Oncology 04/20/24 April Frye, RN Specialty Corral Boss 04/24/24 Lillie Richter, POURED CONCRETE WALL TECHNICIAN.INSPECTOR EYEGLASS [address] [place] [address] [place] [address] Hospice & Palliative Medicine 04/24/24 Crate Opener Relationship Specialty Start Date End Date JeromeKostas navas JarvisDO [address] [place] [address] PCP - General Family Medicine 05/14/22 Belen Carlton MD [address] [place] [address] [address] [place] [address] Hematology/Oncology 03/27/[address] [place] [address] [place] [address] Registered Dietitian Nutrition 04/03/24 Jackie Silverio LSW Coding Director 04/07/24 Gisselle Bryant, POURED CONCRETE WALL TECHNICIAN.INSPECTOR EYEGLASS [address] [place] [address] [place] [address] Nurse Practitioner Hematology/Oncology 04/20/24 Beto Vivar MD [address] [place] [address] [place] [address] Physician Hematology/Oncology 04/20/24 Lise Connolly, BORA [address] [place] [address] [place] [address] Specialty Corral Boss Hematology/Oncology 04/20/24 April Frye, RN Specialty Corral Boss 04/24/24 Lillie Richter, POURED CONCRETE WALL TECHNICIAN.INSPECTOR EYEGLASS [address] [place] [address] [place] [address] Hospice & Palliative Medicine 04/24/24 Crate Opener Relationship Specialty Start Date End Date Kostas Steward DO [address] [place] [address] PCP - General Family Medicine 05/14/22 Belen Carlton MD [address] [place] [address] [place] [address] Hematology/Oncology 03/27/[address] [facility] [place] [address] Registered Dietitian Nutrition 04/03/24 Jackie Silverio LSW Coding Director 04/07/24 Gisselle Bryant, POURED CONCRETE WALL TECHNICIAN.INSPECTOR EYEGLASS [address] [place] [address] [place] [address] Nurse Practitioner Hematology/Oncology 04/20/24 Beto Vivar MD [address] [place] [address] [place] [address] Physician Hematology/Oncology 04/20/24 Lise Connolly, BORA [address] [place] [address] [place] [address] Specialty Corral Boss Hematology/Oncology 04/20/24 April Frye, RN Specialty Corral Boss 04/24/24 Lillie Richter, POURED CONCRETE WALL TECHNICIAN.INSPECTOR EYEGLASS [address] [place] [address] [place] [address] Hospice & Palliative Medicine 04/24/24 Crate Opener Relationship Specialty Start Date End Date Kostas Steward DO [address] [place] [address] PCP - General Family Medicine 05/14/22 Belen Carlton MD [address] [place] [address] [address] [place], [place] [id number] Hematology/Oncology 03/27/[address] [place] [address] [place] [address] Registered Dietitian Nutrition 04/03/24 Jackie Silverio, ADDING MACHINE OPERATOR Coding Director 04/07/24 Gisselle Bryant, POURED CONCRETE WALL TECHNICIAN.INSPECTOR EYEGLASS [address] [place] [address] [place] [address] Nurse Practitioner Hematology/Oncology 04/20/24 Beto Vivar MD [address] [place] [address] [place] [address] Physician Hematology/Oncology 04/20/24 Lise Connolly, BORA [address] [place] [address] [place] [address] Specialty Corral Boss Hematology/Oncology 04/20/24 April Frye, RN Specialty Corral Boss 04/24/24 Lillie Richter, POURED CONCRETE WALL TECHNICIAN.INSPECTOR EYEGLASS [address] [place] [address] [place] [address] Hospice & Palliative Medicine 04/24/24 Crate Opener Relationship Specialty Start Date End Date Kostas Steward DO [address] [place] [address] PCP - General Family Medicine 05/14/22 Belen Carlton MD [address] [place] [address] [address] [place] [address] Hematology/Oncology 03/27/[address] [place] [address] [place] [address] Registered Dietitian Nutrition 04/03/24 Jean Claude, Jackie, ADDING MACHINE OPERATOR Coding Director 04/07/24 Gisselle Bryant, POURED CONCRETE WALL TECHNICIAN.INSPECTOR EYEGLASS [address] [place] [address] [place] [address] Nurse Practitioner Hematology/Oncology 04/20/24 Beto Vivar MD [address] [place] [address] [place] [address] Physician Hematology/Oncology 04/20/24 Lise Connolly, BORA [address] [place] [address] [place] [address] Specialty Corral Boss Hematology/Oncology 04/20/24 April Frye, RN Specialty Corral Boss 04/24/24 Lillie Richter, POURED CONCRETE WALL TECHNICIAN.INSPECTOR EYEGLASS [address] [place] [address] [place] [address] Hospice & Palliative Medicine 04/24/24 Crate Opener Relationship Specialty Start Date End Date BinJoseKostasburt Frederick DO [address] [place] [address] PCP - General Family Medicine 05/14/22 Belen Carlton MD [address] [place], [place] [address]y [address] [place] [address] Hematology/Oncology 03/27/[address] [place] [address] [place] [address] Registered Dietitian Nutrition 04/03/24 Jackie Silverio LSW Coding Director 04/07/24 Gisselle Bryant, POURED CONCRETE WALL TECHNICIAN.INSPECTOR EYEGLASS [address] [place] [address] [place] [address] Nurse Practitioner Hematology/Oncology 04/20/24 Beto Vivar MD [address] [place] [address] [place] [address] Physician Hematology/Oncology 04/20/24 Lise Connolly, RN [address] [facility] [place] [address] Specialty Corral Boss Hematology/Oncology 04/20/24 April Frye, RN Specialty Corral Boss 04/24/24 Lillie Richter POURED CONCRETE WALL TECHNICIAN.INSPECTOR EYEGLASS [address] [place] [address] [place] [address] Hospice & Palliative Medicine 04/24/24 Crate Opener Relationship Specialty Start Date End Date Bin Kostas DO Jarvis [address] [place] [address] PCP - General Family Medicine 05/14/22 Belen Carlton MD [address] [place], [place] [address]y [address] [place] [address] Hematology/Oncology 03/27/[address] [facility] [place] [address] Registered Dietitian Nutrition 04/03/24 Jackie Silverio LSW Coding Director 04/07/24 Gisselle Bryant, BERENICE.INSPECTOR EYEGLASS [address] [facility] [place] [address] Nurse Practitioner Hematology/Oncology 04/20/24 Beto Vivar MD [address] [facility] [place] [address] Physician Hematology/Oncology 04/20/24 Lise Connolly, RN [address] [facility] [place] [address] Specialty Corral Boss Hematology/Oncology 04/20/24 April Frye, RN Specialty Corral Boss 04/24/24 Lillie Richter, POURED CONCRETE WALL TECHNICIAN.INSPECTOR EYEGLASS [address] [place] [address] [place] [address] Hospice & Palliative Medicine 04/24/24 Crate Opener Relationship Specialty Start Date End Date Kostas Steward DO [address] [place] [address] PCP - General Family Medicine 05/14/22 Belen Carlton MD [address] [place] [address] [address] [place], [place] [id number] Hematology/Oncology 03/27/[address] [place] [address] [place] [address] Registered Dietitian Nutrition 04/03/24 Jackie Silverio LSW Coding Director 04/07/24 Gisselle Bryant, BERENICE.INSPECTOR EYEGLASS [address] [place] [address] [place] [address] Nurse Practitioner Hematology/Oncology 04/20/24 Beto Vivar MD [address] [place] [address] [place] [address] Physician Hematology/Oncology 04/20/24 Lise Connolly RN [address] [facility] [place] [address] Specialty Corral Boss Hematology/Oncology 04/20/24 April Frye RN Specialty Corral Boss 04/24/24 Lillie Richter, POURED CONCRETE WALL TECHNICIAN.INSPECTOR EYEGLASS [address] [facility] [place] [address] Hospice & Palliative Medicine 04/24/24 Crate Opener Relationship Specialty Start Date End Date Kostas Steward DO [address] [place] [address] PCP - General Family Medicine 05/14/22 Belen Carlton MD [address] [place] [address] [address] [place], [place] [id number] Hematology/Oncology 03/27/[address] [facility] [place] [address] Registered Dietitian Nutrition 04/03/24 Jackie Silverio LSW Coding Director 04/07/24 Gisselle Bryant, POURED CONCRETE WALL TECHNICIAN.INSPECTOR EYEGLASS [address] [place] [address] [place] [address] Nurse Practitioner Hematology/Oncology 04/20/24 Beto Vivar MD [address] [place] [address] [place] [address] Physician Hematology/Oncology 04/20/24 Lise Connolly, BORA [address] [place] [address] [place] [address] Specialty Corral Boss Hematology/Oncology 04/20/24 April Frye, RN Specialty Corral Boss 04/24/24 Lillie Richter, POURED CONCRETE WALL TECHNICIAN.INSPECTOR EYEGLASS [address] [facility] [place] [phone] Hospice & Palliative Medicine 04/24/24 Crate Opener Relationship Specialty Start Date End Date Kostas Steward DO [address] [place] [phone] PCP - General Family Medicine 05/14/22 Belen Carlton MD [address] [place] [address] [address] [place] [address] Hematology/Oncology 03/27/[address] [place] [address] [place] [address] Registered Dietitian Nutrition 04/03/24 Jackie Silverio LSW Coding Director 04/07/24 Gisselle Bryant, POURED CONCRETE WALL TECHNICIAN.INSPECTOR EYEGLASS [address] [place] [address] [place] [address] Nurse Practitioner Hematology/Oncology 04/20/24 Beto Vivar MD [address] [place] [address] [place] [address] Physician Hematology/Oncology 04/20/24 Lise Connolly, BORA [address] [place] [address] [place] [address] Specialty Corral Boss Hematology/Oncology 04/20/24 April Frye, RN Specialty Corral Boss 04/24/24 Lillie Richter, POURED CONCRETE WALL TECHNICIAN.INSPECTOR EYEGLASS [address] [place] [address] [place] [address] Hospice & Palliative Medicine 04/24/24 [facility] Hospice Pressure Test Operator 05/29/24 Crate Opener Relationship Specialty Start Date End Date Kostas Steward DO [address] [place] [address] PCP - General Family Medicine 05/14/22 Belen Carlton MD [address] [place] [address] [address] [place] [address] Hematology/Oncology 03/27/[address] [facility] [place] [address] Registered Dietitian Nutrition 04/03/24 Jackie Silverio LSW Coding Director 04/07/24 Gisselle Bryant, BERENICE.INSPECTOR EYEGLASS [address] [place] [address] [place] [address] Nurse Practitioner Hematology/Oncology 04/20/24 Beto Vivar MD [address] [place] [address] [place] [address] Physician Hematology/Oncology 04/20/24 Lise Connolly, BORA [address] [place] [address] [place] [address] Specialty Corral Boss Hematology/Oncology 04/20/24 April Frye, RN Specialty Corral Boss 04/24/24 Lillie Richter, POURED CONCRETE WALL TECHNICIAN.INSPECTOR EYEGLASS [address] [place] [address] [place] [address] Hospice & Palliative Medicine 04/24/24 [facility] Hospice Pressure Test Operator 05/29/24 FOR RECORDS PERTAINING TO PATIENTS WHO ARE [...] BE BASED ON THE PRIMARY CLINICAL RECORDS. [facility] [employer] [facility]. provides no warranty or guarantee of the accuracy or completeness of information in this document.
[2024-06-13 13:54] LABS: Basophils Percent Auto 0.5 % (0.2-2.0); Eosinophils Absolute Auto 0.1 10^3/uL (0.0-0.7); Eosinophils Percent Auto 2.1 % (0.9-7.0); Hematocrit 27.1 % (36.0-48.0); Hemoglobin 9.6 g/dL (12.0-16.0); Immature Granulocytes Abs Auto 0.01 10^3/uL (0.00-0.03); Immature Granulocytes Pct Auto 0.3 % (0.0-0.5); Lymphocytes Absolute Auto 0.6 10^3/uL (1.2-3.8); Mean Corpuscular HGB Conc 35.4 g/dL (29.9-35.2); Mean Corpuscular Hemoglobin 34.4 pg (26.7-34.0); Mean Corpuscular Volume 97.1 fL (81.0-99.0); Mean Platelet Volume 8.1 fL (9.5-13.5); Monocytes Absolute Auto 0.3 10^3/uL (0.3-0.8); Monocytes Percent Auto 6.8 % (1.7-12.0); Neutrophils Absolute Auto 2.9 10^3/uL (1.4-6.5); Neutrophils Percent Auto 75.3 % (43.0-75.0); Platelet Count 206 10^3/uL (150-450); Red Blood Count 2.79 10^6/uL (4.20-5.40); Red Cell Distribution Width 15.7 % (11.0-15.0); White Blood Count 3.8 10^3/uL (4.0-11.0)
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
[2024-06-13] MEDS: PROMETHAZINE HCL 25 MG in 0.9 % SODIUM CHLORIDE 50 ML 204 MG IV (14:15)
[2024-06-13] MEDS: MORPHINE SULFATE 2 MG/ML SYRINGE IV (14:15)
[2024-06-13 14:20] LABS: Alanine Aminotransferase 36 U/L (14-59); Albumin Globulin Ratio 0.5; Albumin Level 1.9 g/dL (3.4-5.0); Alkaline Phosphatase 336 U/L (46-116); Anion Gap 9.5; Aspartate Amino Transferase 51 U/L (15-37); BUN Creatinine Ratio 10.8; Bilirubin Total 0.8 mg/dL (0.2-1.0); Calcium 9.2 mg/dL (8.5-10.1); Carbon Dioxide 24.1 mmol/L (21.0-32.0); Chloride 101 mmol/L (98-107); Estimated GFR (African America 51 (>=60 mL/min/1.73m^2); Estimated GFR (Non-African Ame 42 (>=60 mL/min/1.73m^2); Globulin 3.5 g/dL; Glucose 140 mg/dL (74-106); Potassium 3.6 mmol/L (3.5-5.1); Sodium 131 mmol/L (136-145); Total Protein 5.4 g/dL (6.4-8.2); Troponin I High Sensitivity 39.6 pg/mL (4.0-51.3)
--- NOTE | 2024-06-13 15:12 | XR_ITS ---
The [address] [address] Patient Name: KAYA SCHILLING MRN: [id number] date: 1965 Sex: F Assigned Patient Location: ER Current Patient Location: ER Accession/Order Number: [id number] Exam Date: 06/13/2024 14:57 Report Date: 06/13/2024 15:31 At the request of: ISABEL LILLY Procedure: XR chest 1V EXAMINATION: XR chest 1V HISTORY: cough COMPARISON: XR chest 02/15/2024 FINDINGS: LUNGS: Underexpanded lungs with mild haziness and stranding within lung bases. VASCULATURE: No increased pulmonary vasculature. PLEURA: No pneumothorax, effusion, or pleural thickening. CARDIAC: No cardiomegaly or cardiac silhouette abnormality. MEDIASTINUM: No visible mass or adenopathy. BONES: No fracture or visible bone lesion. OTHER: Right chest wall Port-A-Cath with tip near cavoatrial junction. XR/XR chest 1V IMPRESSION: 1. Low lung volume examination with mild bibasilar atelectasis or possibly infiltrates. Electronically authenticated by: LINNETTE AVENDANO Date: 06/13/2024 15:31
--- NOTE | 2024-06-13 15:19 | CT_ITS ---
[address] [address] Patient Name: KAYA SCHILLING MRN: [id number] date: 1965 Sex: F Assigned Patient Location: ER Current Patient Location: Accession/Order Number: [id number] Exam Date: 06/13/2024 14:57 Report Date: 06/13/2024 15:48 At the request of: ISABEL LILLY Procedure: CT abdomen pelvis w con EXAMINATION: CT abdomen pelvis w con HISTORY: eval for obstruction ; nausea, vomiting, diarrhea, cough, abdominal pain, constipation COMPARISON: CTA abdomen pelvis 04/30/2024 TECHNIQUE: Axial, Coronal, and Sagittal images were obtained without and/or with IV contrast as indicated by examination type. Dose reduction techniques were achieved by using automated exposure control and/or adjustment of mA and/or kV according to patient size and/or use of iterative reconstruction technique. FINDINGS: LUNG BASES: Large bilateral pleural effusions, 3.3 cm in thickness on right, 4.1 cm on left. Mild passive atelectasis within lung bases. LIVER: No enlargement, atrophy, suspicious density, or significant focal lesion. BILIARY: Cholecystectomy. PANCREAS: No lesion, fluid collection, or abnormal duct dilatation. SPLEEN: No enlargement or focal lesion. ADRENALS: Unremarkable right adrenal gland. Left adrenal gland is suspected to be compressed and obscured by retroperitoneal lymphadenopathy. KIDNEYS: No mass, obstruction, or calcification. BOWEL/MESENTERY: Multiple 1 cm irregular soft tissue opacities versus lymph nodes within the root of mesentery. Thickening of the lesser curvature of the stomach. Unremarkable stomach and small bowel. AORTA/VASCULAR: No aneurysm or dissection. RETROPERITONEUM: Numerous prominent, flocculent appearing para-aortic lymph nodes. Largest is anterior to the left kidney, 3.4 x 2.7 cm in axial plane. LYMPH NODES: Several slightly prominent pelvic lymph nodes. Markedly enlarged posterior left pelvic lymph node versus mass, 5.4 cm in axial plane. URINARY BLADDER: No visible focal wall thickening, lesion, or calculus. PELVIC ORGANS: No visible mass. Pelvic organs appropriate for patient age. ABDOMINAL WALL: No mass or hernia. BONES: Substantial edema within the abdominal wall and flanks. OTHER: Large amount of free fluid within the abdomen and pelvis. CT/CT abdomen pelvis w con IMPRESSION: 1. New large bilateral pleural effusions with mild passive atelectasis within lung bases. 2. Abdominal ascites; large amount free fluid since prior study. 3. Marked retroperitoneal and pelvic lymphadenopathy of uncertain etiology, but grossly stable. 4. Marked subcutaneous edema within anterior abdominal wall and flanks. Electronically authenticated by: LINNETTE AVENDANO Date: 06/13/2024 15:48
--- NOTE | 2024-06-13 16:17 | ECG_ITS ---
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
== END 2024-06-13 22:00 | disposition home or self-care (01) ==
PROVIDERS: Student in an Organized Health Care Education/Training Program; Emergency Provider Emergency Medicine; PCP Family Medicine
DX: R11.10 Vomiting, unspecified (principal); R53.81 Other malaise; C19 Malignant neoplasm of rectosigmoid junction
CPT/HCPCS: 36415; 71045; 74177; 80053; 83690; 84484; 85025; 93005; 96365; 96375; 99285; J2250; J2270; Q9967